=== PATIENT | male | born 1970 | race Caucasian/White ===

== ENCOUNTER 2017-09-08 17:17 | Inpatient (IN) | payer MEDICARE, MEDICAID, SELFPAY ==
[2017-09-08] VITALS (11 sets, daily range): BP systolic 145–202; BP diastolic 77–93; PULSE 78–83; RESP 9–16; TEMP 36.7–36.8; O2SAT 94–99; BMI 39.7; BMI 39.8; BMI 38.7
[2017-09-08 17:31] LABS: Bedside Glucose > 500 mg/dL (70-110)
--- NOTE | 2017-09-08 17:58 | EKG12_ITS ---
Test Reason : Blood Pressure : / mmHG Vent. Rate : 077 BPM Atrial Rate : 077 BPM P-R Int : 142 ms QRS Dur : 088 ms QT Int : 372 ms P-R-T Axes : 010 -25 049 degrees QTc Int : 420 ms Normal sinus rhythm Normal ECG Confirmed by CANDIE CONRAD MD ([id number]), international editorial producer DEREK KEARNS ([id number]) on 09/11/2017 2:59:12 PM Referred By: ANTHONY Confirmed By:CANDIE CONRAD MD
--- NOTE | 2017-09-08 18:08 | ED.VISSUMM ---
- ER Visit Summary Date of Service: 09/08/17 Chief Complaint: Chest pain and slurred speech History of Present Illness: The patient is a 47 M history of end-stage renal disease gets dialyzed Monday last dialysis Monday skip yesterday. He also has a history of insulin pen diabetes and CHF. Denies any prior SD or cardiac stents. He has never had a cardiac catheterization. According to the patient is at bedside he has been unsteady on his feet for the last 2 days. He has had slurred speech today and throbbing chest discomfort that is now resolved for several hours. Also some mild nausea and shortness of breath. He denies any cardiac history. He denies ever having a heart cath or stress test. No history of DVT or PE. Physical Examination: Appearing middle-aged male. Vital signs are stable his initial blood pressure is 170/77. Pulse is 95% room air no signs of hypoxia. HEENT exam is unremarkable. Neck nontender no JVD. Lungs good auscultation bilaterally. Heart regular rate and rhythm no murmur. Rate about 75. Abdomen soft nontender Logan no giving or masses. He is moving all 4 extremities. He has a right upper arm fistula with good thrill. Mild swelling in the right forearm. Equal symmetrical labor training manager strength. Dorsi plantar flexion intact. Neurologically is awake and alert. At worst he has very mild slurred speech otherwise is moving his extremities he is able do rapid hand movements he is able do fingertip to nose. He has no facial droop. At worst his NIH score is a 1 or 0. Test Results: Chest x-ray showed cardiomegaly. CT of the brain without contrast showed no acute abnormality read both by myself and the radiologist. EKG sinus rhythm rate is 77 with no acute signs of ischemia and unchanged from prior EKG from April of last year. White count of 5. Hemoglobin 10.8. Electrolytes show sodium 128. BUN and creatinine are 32 and 3.6 consistent with his chronic renal failure. Glucose is 630 with a normal anion gap is 7. Troponin normal. Emergency Department Course and Treatment: Patient with chest pain and possibly slurred speech. Will undergo cardiac workup with a CT of his brain. Treatment Plan: We treated with subcu insulin 15 units[address] I spoke to Dr[address] Hernandez the hospitalist will admit him. Disposition: Admission Impression: Acute chest pain uncertain etiology Acute slurred speech Acute hyperglycemia with a history of insulin-dependent diabetes History of insulin-dependent diabetes, hypertension, end-stage renal disease on dialysis. This note was generated with [employer] dictation software. It may contain incorrect words, spelling, and punctuation that were not noted in review of the chart prior to signing ED Disposition - Plan for ED Patient: Chief Complaint: Chest Pain Referrals: Augie Washburn MD [Primary Care Provider] -
--- NOTE | 2017-09-08 18:10 | RAD_ITS ---
STUDY: X-RAY CHEST REASON FOR EXAM: Male, 47 years old. Chest pain. TECHNIQUE: Single AP portable view of the chest. COMPARISON: Frontal chest x-ray included with abdomen series April 28, 2017. FINDINGS: There is minor subsegmental crowding in the medial lung bases. There is no demonstrated pleural abnormality. There is stable borderline to mild cardiac enlargement. Normal mediastinum and esmer. Normal visualized pulmonary arteries. Normal visualized aortic arch and descending thoracic aorta. There are stable multilevel degenerative changes of the visualized thoracic spine. Normal visualized ribs, clavicles, and shoulders. There is no demonstrated abnormality of the visualized soft tissue structures of the upper abdomen. RAD/Chest 1 View (Portable) IMPRESSION: Mild medial basilar subsegmental volume loss. Stable borderline to mild cardiac enlargement. Electronically Signed: Kayden Ceballos MD at 18:44 EST , Service support ,
--- NOTE | 2017-09-08 18:11 | ED.DCSUM_ITS ---
- ER Visit Summary Date of Service: 09/08/17 Chief Complaint: Chest pain and slurred speech History of Present Illness: The patient is a 47 M history of end-stage renal disease gets dialyzed Monday last dialysis Monday skip yesterday. He also has a history of insulin pen diabetes and CHF. Denies any prior HI or cardiac stents. He has never had a cardiac catheterization. According to the patient is at bedside he has been unsteady on his feet for the last 2 days. He has had slurred speech today and throbbing chest discomfort that is now resolved for several hours. Also some mild nausea and shortness of breath. He denies any cardiac history. He denies ever having a heart cath or stress test. No history of DVT or PE. Physical Examination: Appearing middle-aged male. Vital signs are stable his initial blood pressure is 170/77. Pulse is 95% room air no signs of hypoxia. HEENT exam is unremarkable. Neck nontender no JVD. Lungs good auscultation bilaterally. Heart regular rate and rhythm no murmur. Rate about 75. Abdomen soft nontender Logan no giving or masses. He is moving all 4 extremities. He has a right upper arm fistula with good thrill. Mild swelling in the right forearm. Equal symmetrical job compositor strength. Dorsi plantar flexion intact. Neurologically is awake and alert. At worst he has very mild slurred speech otherwise is moving his extremities he is able do rapid hand movements he is able do fingertip to nose. He has no facial droop. At worst his NIH score is a 1 or 0. Test Results: Chest x-ray showed cardiomegaly. CT of the brain without contrast showed no acute abnormality read both by myself and the radiologist. EKG sinus rhythm rate is 77 with no acute signs of ischemia and unchanged from prior EKG from April of last year. White count of 5. Hemoglobin 10.8. Electrolytes show sodium 128. BUN and creatinine are 32 and 3.6 consistent with his chronic renal failure. Glucose is 630 with a normal anion gap is 7. Troponin normal. Emergency Department Course and Treatment: Patient with chest pain and possibly slurred speech. Will undergo cardiac workup with a CT of his brain. Treatment Plan: We treated with subcu insulin 15 units[address] I spoke to [address] Hernandez the hospitalist will admit him. Disposition: Admission Impression: Acute chest pain uncertain etiology Acute slurred speech Acute hyperglycemia with a history of insulin-dependent diabetes History of insulin-dependent diabetes, hypertension, end-stage renal disease on dialysis. This note was generated with [employer] dictation software. It may contain incorrect words, spelling, and punctuation that were not noted in review of the chart prior to signing ED Disposition - Plan for ED Patient: Chief Complaint: Chest Pain Referrals: Augie Washburn MD [Primary Care Provider] -
--- NOTE | 2017-09-08 18:18 | CT_ITS ---
STUDY: CT BRAIN WITHOUT CONTRAST REASON FOR EXAM: Male, 47 years old. Slurred speech and chest pain. RADIATION DOSAGE (If Supplied By Facility): CTDIvol = ( 44.99 ) mGy, DLP = ( 779.24 ) mGycm TECHNIQUE: Transaxial CT imaging of the brain was performed without administration of intravenous contrast material. Individualized dose optimization techniques were used for this CT. COMPARISON: Noncontrast CT brain March 20, 2017 FINDINGS: Normal soft tissue structures. Normal calvarium. Normal size ventricles and extra-axial spaces for the patient's age. Normal white matter tracts of the cerebral hemispheres. Normal basal ganglia and thalami. Normal brainstem. Normal cerebellum. There is no intracranial hemorrhage. There are no findings of an acute ischemic infarction. There is mild mucoperiosteal thickening in the left maxillary sinus. CT/Brain/Head without Contrast IMPRESSION: 1. Normal unenhanced CT scan of the brain. 2. Mild chronic left maxillary sinusitis. Electronically Signed: Kayden Ceballos MD at 18:41 EST , Service support ,
[2017-09-08 18:20] LABS: Absolute Lymphocyte Count 0.92 X10^3/ul (0.83-4.51); Absolute Neutrophil Count 4.4 X10^3/uL (2.0-7.7); Basophil# 0.03 X10^3/uL; Basophil% 0.5 % (0-1); Eosinophil# 0.18 X10^3/uL; Eosinophils% 3.1 % (0-5); Hematocrit 31.7 % (40-54); Hemoglobin 10.8 g/dl (13.0-16.5); Lymphocyte # 0.92 X10^3/ul (4.0); Lymphocyte % 15.7 % (19-41); Mean Corp Hgb Conc 34.1 g/gl (32-36); Mean Corpuscular Hgb 28.6 pg (27.0-32.0); Mean Corpuscular Volume 84.1 fL (80-94); Mean Platelet Vol. 9.8 fl (6.2-12.0); Monocyte# 0.31 X10^3/uL; Monocyte% 5.3 % (0-10); Neutrophil # 4.35 X10^3/uL (2.7-7.7); Neutrophil % 74.2 % (47-70); Platelet Count 224 K/mm3 (150-450); RBC Distribution Width CV 13.3 % (11.6-14.6); RBC Distribution Width SD 40.3 fl (35.1-43.9); Red Blood Count 3.77 M/mm3 (4.6-6.2); White Blood Count 5.9 K/mm3 (4.4-11.0)
[2017-09-08 18:29] LABS: Anion Gap 7 (5-15); BUN 32 mg/dL (7-18); BUN/Creat Ratio 8.8 RATIO (10-20); Calcium,Total 8.2 mg/dL (8.5-10.1); Chloride 91 mmol/L (98-107); Creatinine, Serum 3.64 mg/dL (0.70-1.30); EST Glomerular Filtration Rate 19 mL/min (>60); Est Glom Filt Rate - Afr Amer 23 mL/min (>60); Estimated Creatinine Clearance 22.95 ml/min; Glucose 630 mg/dL (74-106); Potassium 3.9 mmol/L (3.5-5.1); Sodium Level 128 mmol/L (136-145)
--- NOTE | 2017-09-08 18:33 | ED.RN ---
Addendum entered by Kayden Cheek 09/08/17 18:34: no new orders received Original Note: Dr. Vail notified of critical blood glucose of 630
[2017-09-08 18:42] LABS: POSITIVE COUNT NO; POSITIVE DIFFERENTIAL NO; POSITIVE MORPHOLOGY NO
[2017-09-08 20:01] LABS: Bedside Glucose > 500 mg/dL (70-110)
--- NOTE | 2017-09-08 21:39 | PCM.HP.STD ---
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) use of insulin; Z99.2 - Dependence on renal dialysis (2) Diabetic neuropathy Status: Chronic (3) Hyperlipidemia Status: Chronic Qualifiers: Hyperlipidemia type: unspecified Qualified Code(s): E78.5 - Hyperlipidemia, unspecified; E78.5 - Hyperlipidemia, unspecified; E78.5 - Hyperlipidemia, unspecified (4) Morbid obesity with BMI of 40.0-44.9, adult Status: Chronic (5) Noncompliance Status: Chronic (6) SELMA (obstructive sleep apnea) Status: Chronic (7) Renal failure Status: Chronic Qualifiers: Chronic kidney disease stage: on chronic dialysis History of Present Illness Date of Admission: 09/08/17 Chief Complaint: Slurred speech and chest pain The patient is a 47 year old male w/ h/o HTN, ESRD, HD TTS, SELMA, DMII, and anemia admitted for slurred speech and chest pain. Pt is highly noncompliant with meds and dialysis. Pt complained of multiple non-related symptoms. He stated that when he woke up, he noted that his speech is slurred or abnormal. Nothing appeared to make it better or worse. He was sleepy at that time. He spontaneously resolved when he is no longer sleep. He also c/o nonexertional chest pain. Pain is dull-aching on the left side of his chest. Pain is mild and mostly a discomfort. He also has been unsteady on his feet. He missed dialysis on . He also is not taking his insulin. Past Medical History Past Medical History (Chronic Problems): Chronic Problems (Last Reviewed 08/07/17 @ 10:11 by Claudette Cheek) Chronic respiratory failure with hypoxia (Chronic) HTN (hypertension) (Chronic) Chronic renal disease, stage IV (Chronic) Acute on chronic diastolic CHF (congestive heart failure) (Chronic) Hyperlipidemia (Chronic) Diabetic neuropathy (Chronic) Anemia (Chronic) SELMA (obstructive sleep apnea) (Chronic) Morbid obesity with BMI of 40.0-44.9, adult (Chronic) Diabetes mellitus, type II (Chronic) Renal failure (Chronic) Noncompliance (Chronic) Allergies venom-honey bee [bee venom (honey bee)] Allergy (Verified 09/08/17 17:23) Swelling sulfamethoxazole [From Bactrim] Adverse Reaction (Verified 09/08/17 17:23) Upset Stomach trimethoprim [From Bactrim] Adverse Reaction (Verified 09/08/17 17:23) Upset Stomach Home Medications: Ambulatory Orders Medication Instructions Recorded Amlodipine [Norvasc] 10 mg PO DAILY 07/27/17 Metoprolol Tartrate 50 mg PO BID 07/27/17 Omeprazole 40 mg PO DAILY 07/27/17 insulin regular human 17 units SC DAILY ml 08/07/17 U-500concentrate 500 unit/mL subcutaneous soln Aspirin [Aspirin, Baby] 81 mg PO DAILY@0800 09/08/17 Atorvastatin Calcium [Lipitor] 20 mg PO QHS 09/08/17 Calcitriol [Rocaltrol] 1 mcg PO DAILY 09/08/17 Fluticasone Propionate 1 spray NASAL DAILY PRN 09/08/17 Furosemide [Furosemide] 40 mg PO BID 09/08/17 Gabapentin [Neurontin] 100 mg PO TIDCM 09/08/17 HydrALAZINE [Apresoline] 10 mg PO TID 09/08/17 Insulin U-500 [Humulin R U-500 22 units PO DINNER 09/08/17 ([facility])] Isosorbide Mononitrate [Isosorbide 30 mg PO DAILY 09/08/17 Mononitrate ER] Lisinopril [Zestril] 10 mg PO DAILY 09/08/17 Pyridoxine HCl [Vitamin B-6] 100 mg PO DAILY 09/08/17 Triphrocaps 1 cap PO DAILY 09/08/17 Vits A,C,E/Lutein/Minerals 1 tab PO DAILY 09/08/17 [Ocuvite with Lutein Tablet] Surgical History: tonsillectomy, - - AV fistula in right arm. Smoking Status: Never smoker - *Family History Maternal History Items: Diabetes, Heart Disease, Hypertension, Renal Disease Paternal History Items: Cancer - liver, Diabetes, Heart Disease Review of Systems Constitutional: Denies: Chills, Fever, Weight Change HEENT: Denies: Head Aches, Sinus Congestion, Sinus Drainage Cardiovascular: Denies: Chest Pain, Palpitations Respiratory: Denies: Cough, Shortness of breath at rest, Sputum production Gastrointestinal: Denies: Abdominal Pain, Nausea, Vomiting Genitourinary: Denies: Dysuria Musculoskeletal: Denies: Joint Pain, Joint Tenderness Skin: Denies: Rash, Wounds Neurological: Denies: Numbness, Tingling, Focal weakness Psychiatric: Denies: Anxiety, Depression, Homicidal Ideations, Suicidal Ideations Hematologic/ Lymphatic: Denies: Easy Bruising, Easy Bleeding VTE Information - Inpt Only VTE Present on Admission: No VTE Mechan Device Prophylaxis: SCD's VTE Pharm Prophylaxis ordered?: Yes - Physical Exam General: Alert, Oriented x3, Cooperative HEENT: Atraumatic, PERRLA, EOMI, Normocephalic Neck: Supple, No JVD, Negative Carotid Bruits Lungs: Clear to auscultation, Normal air movement Cardiovascular: Regular rate, No murmurs Abdomen: Bowel Sounds Present, Soft, Non Tender Extremities: No edema, Capillary Refill Less than 3 Seconds, - - Thrill and bruit noted on RUE Skin: No rashes, No breakdown Musculoskeletal: No Tenderness to Palpation of Joints or Extremities Neurological: Cranial nerves II-XII grossly intact Psych/Mental Status: Normal Affect, Appropriate Vital Signs Temp Pulse Resp BP Pulse Ox 98.0 F 81 13 176/88 H 95 09/08/17 17:19 09/08/17 21:30 09/08/17 21:30 09/08/17 21:30 09/08/17 21:30 Oxygen Delivery Method Room Air Weight: 115.212 kg Body Mass Index (BMI) 39.7 Finger Stick Blood Glucose 541 Laboratory Tests Past 24 Hrs 09/08/17 09/08/17 17:35 17:35 WBC 5.9 RBC 3.77 L Hgb 10.8 L Hct 31.7 L MCV 84.1 MCH 28.6 MCHC 34.1 RDW 13.3 RDW Differential 40.3 Plt Count 224 MPV 9.8 Immature Gran % (Auto) 1.200 H Neut % (Auto) 74.2 H Lymph % (Auto) 15.7 L Alfalfa % (Auto) 5.3 Eos % (Auto) 3.1 Baso % (Auto) 0.5 Absolute Neuts (auto) 4.4 Absolute Lymphs (auto) 0.92 Total Counted Not Reportable Sodium 128 L Potassium 3.9 Chloride 91 L Carbon Dioxide 30.0 Anion Gap 7 BUN 32 H Creatinine 3.64 H Estim Creat Clear Calc 22.95 Est GFR (MDRD) Af Amer 23 L Est GFR (MDRD) Non-Af 19 L BUN/Creatinine Ratio 8.8 L Glucose 630 H* Calcium 8.2 L Troponin I < 0.02 POC Glucose 09/08/17 09/08/17 19:54 17:24 POC Glucose > 500 H* > 500 H* Assessment/Plan 47 year old male w/ h/o HTN, ESRD, HD TTS, SELMA, DMII, and anemia admitted for slurred speech and chest pain. 1) Slurred speech: I doubt this is stroke. Pt was probably sleepy and mistaken his speech. However, will r/o TIA. Will get MRI, ECHO, carotid U/S and lipids. Resume home meds. 2) Chest pain: Atypical chest pain. Will get serial trops. Probably will need outpt workup / f/u. Advise compliant with meds / dialysis. 3) DMII: Poorly controlled secondary to noncompliance. Advise compliant. Sliding scale. Will also resume home meds. 4) ESRD: TTS. Consulted nephrology for HD. RUE fistula noted. 5) Prophylaxis: SCD / heparin.
[2017-09-08] MEDS: Metoprolol Tartrate 50 MG Tablet PO (23:05)
[2017-09-08] MEDS: Furosemide 40 MG Tablet PO (23:06)
[2017-09-08] MEDS: Atorvastatin Calcium 20 MG Tablet PO (23:06)
[2017-09-08] MEDS: 0.9% NaCl Peripheral Flush Adult/Peds IV (23:10)
[2017-09-08 23:21] LABS: Glucose 492 mg/dL (74-106)
[2017-09-08 23:21] LABS: Bedside Glucose > 500 mg/dL (70-110)
[2017-09-08 23:24] LABS: Thyroid Stim Hormone (TSH) 1.68 uIU/mL (0.358-3.74)
[2017-09-09] VITALS (19 sets, daily range): BP systolic 95–162; BP diastolic 45–85; PULSE 68–85; RESP 16–18; TEMP 36.8–37.2; O2SAT 94–98; BMI 38.7
[2017-09-09 00:21] LABS: Amphetamine Urine VISTA NEGATIVE (<1000 ng/mL); Barbiturate Urine VISTA NEGATIVE (< 200 ng/mL); Benzodiazepine Urine VISTA NEGATIVE (< 200 ng/mL); Cocaine Urine VISTA NEGATIVE (< 300 ng/mL); Ecstacy Urine VISTA NEGATIVE (< 500 ng/mL); Methadone Urine VISTA NEGATIVE (< 300 ng/mL); PCP Urine VISTA NEGATIVE (< 25 ng/mL); THC Urine VISTA NEGATIVE (< 50 ng/mL); Vista UDS pH Range 6
[2017-09-09 02:50] LABS: Bedside Glucose 216 mg/dL (70-110)
[2017-09-09 03:25] LABS: Cholesterol 298 mg/dL (200); High Density Lipoprotein 37 mg/dL; Triglycerides 916 mg/dL
[2017-09-09] MEDS: Acetaminophen 325 MG Tablet 650 MG PO ×2 (04:58→22:24)
--- NOTE | 2017-09-09 05:55 | ECHOCS_ITS ---
Reason For Study: TIA/CVA Procedure This was a 2D Doppler, Color Flow transthoracic echocardiogram. Exam performed portable in patient room. Left Ventricle Normal LV size. Left ventricular systolic function is normal. The estimated ejection fraction is 65 %. No evidence for diastolic dysfunction. No regional wall motion abnormalities noted. Right Ventricle Normal RV size. Normal systolic function. Atria Normal left atrium. Normal right atrium. Mitral Valve Normal mitral valve. Trivial eccentric mitral valve insufficiency. Tricuspid Valve Normal tricuspid valve. Mild (1+) tricuspid valve insufficiency. Pulmonary artery systolic pressure is 31 mmHg. Aortic Valve Normal aortic valve. Pulmonic Valve The pulmonic valve is not well visualized. Great Vessels Normal aortic root. Pericardium/Pleural No pericardial effusion. Medication Performed a rapid injection of agitated mix of 9 cc saline and 1cc air to assess for atrial septal defect. Definity0.3ml given slow IV push to enhance endocardial definition. MMode/2D Measurements & Calculations LVIDd: 5.0 cm IVSd: 1.2 cm Ao root diam: 3.2 cm LVIDs: 3.5 cm LVPWd: 1.1 cm LA dimension: 5.2 cm RVDd: 4.8 cm FS: 30.0 % LAV(MOD-bp): 37.0 ml LAV(MOD-bp) Indexed: 16.8 ml/m2 LA A4 area: 15.9 cm2 RA A4 area: 14.5 cm2 LAV(MOD-sp2): 35.9 ml LAV(MOD-sp4): 36.0 ml Doppler Measurements & Calculations MV E max emre: 84.3 cm/sec Lat Peak E' Emre: 6.7 cm/sec Med Peak E' Emre: 6.8 cm/sec MV A max emre: 105.3 cm/sec E/E' lat: 12.6 E/E' med: 12.4 MV E/A: 0.80 Ao V2 max: 172.0 cm/sec LV V1 max: 126.5 cm/sec PA V2 max: 117.3 cm/sec Ao max P.8 mmHg LV V1 max P.4 mmHg Ao V2 mean: 110.2 cm/sec Ao mean P.7 mmHg Ao V2 VTI: 30.1 cm TR max emre: 254.7 cm/sec TR max P.0 mmHg Interpretation Summary Normal LV size. Left ventricular systolic function is normal. The estimated ejection fraction is 65 %. No evidence for diastolic dysfunction. Mild (1+) tricuspid valve insufficiency. Contrast injection was performed. Ordering Physician: Pablo Hernandez Referring Physician: Augie Washburn Performed By: Sameera Stevens RDCS, RVT
--- NOTE | 2017-09-09 05:55 | CDU_ITS ---
Reason For Study: TIA Rt. Velocities/BP Lt. Velocities/BP Prox CCA 103/35 cm/sec. Prox CCA 103/13 cm/sec. Mid CCA 94/13 cm/sec. Mid CCA 111/15 cm/sec. Dist CCA 88/14 cm/sec. Dist CCA 93/14 cm/sec. Prox ICA 80/14 cm/sec. Prox ICA 63/15 cm/sec. Mid ICA 63/17 cm/sec. Mid ICA 131/20 cm/sec. Dist ICA 68/27 cm/sec. Dist ICA 52/14 cm/sec. Rt. ICA/CCA = .85. Lt. ICA/CCA = 1.2. Prox ECA 162/13 cm/sec. Prox ECA 188/15 cm/sec. Rt. Vert. 38/8 cm/sec. Lt. Vert. 55/14 cm/sec. Right Extracranial There is intimal thickening but no significant atherosclerotic plaque noted in the right common carotid artery. There is intimal thickening but no significant atherosclerotic plaque noted in the right internal carotid artery. There is intimal thickening but no significant atherosclerotic plaque noted in the right external carotid artery. Antegrade flow is noted in the right vertebral artery. Left Extracranial There is intimal thickening but no significant atherosclerotic plaque noted in the left common carotid artery. There is intimal thickening but no significant atherosclerotic plaque noted in the left internal carotid artery. There is heterogeneous, smooth atherosclerotic plaque noted in the left external carotid artery. Antegrade flow is noted in the left vertebral artery. Procedure Carotid Duplex [id number]. Exam performed portable in patient room. Interpretation Summary No significant atherosclerotic plaque or stenosis noted in the internal carotid arteries bilaterally. Flow within the vertebral arteries is antegrade bilaterally. Ordering Physician: Pablo Hernandez Referring Physician: Anca Gregorio Performed By: Cami Strickland, GABRIELACS, RVT
[2017-09-09 06:51] LABS: Bedside Glucose 163 mg/dL (70-110)
[2017-09-09] MEDS: Aspirin 81 MG TAB.CHEW PO (08:43)
[2017-09-09] MEDS: Glucerna Shake 120 ML LIQUID PO ×2 (08:43→17:24)
[2017-09-09] MEDS: Pyridoxine HCl 100 MG Tablet PO (08:44)
[2017-09-09] MEDS: Calcitriol 0.25 MCG Capsule 1 MCG PO (08:44)
[2017-09-09] MEDS: Pantoprazole Sodium 40 MG Tablet PO (08:44)
[2017-09-09] MEDS: Gabapentin 100 MG Capsule PO ×2 (08:44→16:06)
[2017-09-09] MEDS: Folic Acid/Vitamin B Comp W-C 1 Capsule 1 CAP PO (08:45)
[2017-09-09] MEDS: Heparin 10,000 UNITS/10 ML Vial 6000 UNITS IV (11:24)
[2017-09-09 11:31] LABS: Bedside Glucose 340 mg/dL (70-110)
--- NOTE | 2017-09-09 12:13 | PCM.PN.HOSP ---
Patient Problems: Active and Suspected Problems (Last Reviewed 08/07/17 @ 10:11 by Claudette Cheek) TIA (transient ischemic attack) (Acute) Chest pain (Acute) Subjective: Patient states that he had a 30 minute episode of slurred speech and left sided weakness and chest pain. He took 2 aspirin in the midst of all this and symptoms resolved spontaneously otherwise. MRI was attempted today patient was very anxious when they put the device on his head and was unable to tolerate that. Patient states that he would be willing to try it again if he got premedicated with Ativan. Patient understands that we do not have conscious sedation here at this time for MRIs. Vitals/I&O's: Vital Signs Temp Pulse Resp BP Pulse Ox 36.9 C 81 16 162/80 H 96 09/09/17 09:00 09/09/17 11:35 09/09/17 10:31 09/09/17 10:31 09/09/17 09:00 Oxygen Delivery Method Room Air Weight: 112.1 kg Body Mass Index (BMI) 38.7 Intake and Output for Last 24 Hours 09/07/17 09/08/17 09/09/17 23:59 23:59 23:59 Intake Total 860 / 860 Balance 860 / 860 General: Alert, Cooperative, No apparent distress, - - on HD HEENT: Atraumatic, EOMI, Normocephalic Oral: Moist Mucosa, No Gingival or Mucosal Lesions/ Ulcerations Neck: No Nodes, Thyroid Normal Size and Texture Lungs: Clear to auscultation, Normal air movement, No rhonchi, No wheeze Cardiovascular: Regular rate, Regular Rhythm, Normal S1, Normal S2, No murmurs Abdomen: Bowel Sounds Present, Soft, Non Tender, Non-Distended, No Hepato-splenomegaly, Obese Extremities: No edema, No Calf Tenderness Skin: No rashes, No breakdown Musculoskeletal: No Tenderness to Palpation of Joints or Extremities, No Muscle Wasting Neurological: Cranial nerves II-XII grossly intact, Neuro grossly intact, Motor Exam 5/5 strength throughout Psych/Mental Status: Normal Affect, Appropriate Laboratory Results 09/08/17 22:33: POC Glucose > 500 H* 09/08/17 22:48: Troponin I 0.02, TSH 1.68 09/08/17 22:48: Glucose 492 H* 09/08/17 23:35: Urine Opiates Screen NEGATIVE, Urine Methadone Screen NEGATIVE, Ur Barbiturates Screen NEGATIVE, Ur Phencyclidine Scrn NEGATIVE, Ur Amphetamines Screen NEGATIVE, U Methamphetamin-MDMA NEGATIVE, U Benzodiazepines Scrn NEGATIVE, Urine Cocaine Screen NEGATIVE, U Cannabinoids Screen NEGATIVE, Ur Drug Screen Comment 09/09/17 02:35: Triglycerides 916 H, Cholesterol 298 H, LDL Cholesterol TNP, VLDL Cholesterol TNP, HDL Cholesterol 37 L 09/09/17 02:35: Troponin I < 0.02 09/09/17 02:39: POC Glucose 216 H 09/09/17 06:10: Troponin I < 0.02 09/09/17 06:45: POC Glucose 163 H 09/09/17 11:20: POC Glucose 340 H Current Medications Acetaminophen (Tylenol) 650 mg PO Q6H PRN PRN PRN Reason: PAIN Last Admin: 09/09/17 04:58 Dose: 650 mg Amlodipine Besylate (Norvasc) 10 mg PO DAILY [facility] Aspirin (Aspirin, Baby) 81 mg PO DAILY@0800 [facility] Last Admin: 09/09/17 08:43 Dose: 81 mg Atorvastatin Calcium (Lipitor) 20 mg PO QHS [facility] Last Admin: 09/08/17 23:06 Dose: 20 mg Calcitriol (Rocaltrol) 1 mcg PO DAILY [facility] Last Admin: 09/09/17 08:44 Dose: 1 mcg Dextrose (D50w Syringe) 0 gm IV X1 PRN; Protocol PRN Reason: Hypoglycemia Fluticasone Propionate (Flonase Nasal [place]) 1 spray NASAL DAILY PRN PRN Reason: ALLERGIES Furosemide (Lasix) 40 mg PO BIDLX [facility] Last Admin: 09/08/17 23:06 Dose: 40 mg Gabapentin (Neurontin) 100 mg PO TIDCM [facility] Last Admin: 09/09/17 11:25 Dose: Not Given Glucagon () 1 mg IM .X1 PRN PRN Reason: Hypoglycemia Heparin Sodium (Porcine) (Heparin Na) 5,000 unit SC Q8 [facility] Last Admin: 09/09/17 05:00 Dose: 5,000 units Hydralazine HCl (Apresoline) 10 mg PO TID [facility] Last Admin: 09/09/17 04:59 Dose: 10 mg Insulin Aspart (Novolog Flexpen (Bkc)) 0 units SC TIDAC [facility] PRN Reason: Protocol Last Admin: 09/09/17 11:24 Dose: 12 unit Insulin Human Regular (Humulin R U-500 ([facility])) 0.17 ml SC 0730 [facility] Last Admin: 09/09/17 09:17 Dose: 85 unit Insulin Human Regular (Humulin R U-500 ([facility])) 0.22 ml SC DINNER [facility] Isosorbide Mononitrate (Imdur) 30 mg PO DAILY [facility] Lisinopril (Zestril) 10 mg PO DAILY [facility] Metoprolol Tartrate (Lopressor (Beta Emmanuel)) 50 mg PO BID [facility] Last Admin: 09/08/17 23:05 Dose: 50 mg Multivit/Ca Carb/B Cmplx/FA/Prenat (Nephrocaps, Renaphro) 1 capsule PO DAILY [facility] Last Admin: 09/09/17 08:45 Dose: 1 capsule Multivitamins/Minerals (Ocuvite) 1 tablet PO DAILY [facility] Last Admin: 09/09/17 08:44 Dose: 1 tablet Nutritional Formula (Lactose Free) (Glucerna Shake) 120 ml PO 4X/DAY [facility] Last Admin: 09/09/17 08:43 Dose: 120 ml Pantoprazole Sodium (Protonix) 40 mg PO DAILY [facility] Last Admin: 09/09/17 08:44 Dose: 40 mg Pyridoxine HCl (Vitamin B-6) 100 mg PO DAILY [facility] Last Admin: 09/09/17 08:44 Dose: 100 mg Sodium Chloride () 5 - 30 ml IV UD PRN PRN Reason: SALINE FLUSH Last Admin: 09/08/17 23:10 Dose: 10 ml Assessment/Plan Active and Suspected Problems (Last Reviewed 08/07/17 @ 10:11 by Claudette Cheek) TIA (transient ischemic attack) (Acute) Chest pain (Acute) 1. TIA, suspected Continue with aspirin and atorvastatin Patient amenable to reattempting the MRI with Ativan prior Await carotid duplex and echocardiogram Possible this could have been metabolic with his severe hyperglycemia 2. Chest pain Workup thus far has been negative Will plan for a chemical stress test on the 3. Diabetes mellitus type 2, uncontrolled Patient states that he was not feeling well and when he is taking his U500, he was getting cramps in his hands. Patient said that he normally takes his insulin as directed. 4. Hypertension From the 150s-160s at this time Continue with Imdur and lisinopril and metoprolol tartrate 5. DVT prophylaxis with subcu heparin Code Visit Inpatient E&M: 76357 Subs Hosp L3
--- NOTE | 2017-09-09 12:18 | PN_ITS ---
Patient Problems: Active and Suspected Problems (Last Reviewed 08/07/17 @ 10:11 by Claudette Cheek ) TIA (transient ischemic attack) (Acute) Chest pain (Acute) Subjective: Patient states that he had a 30 minute episode of slurred speech and left sided weakness and chest pain. He took 2 aspirin in the midst of all this and symptoms resolved spontaneously otherwise. MRI was attempted today patient was very anxious when they put the device on his head and was unable to tolerate that. Patient states that he would be willing to try it again if he got premedicated with Ativan. Patient understands that we do not have conscious sedation here at this time for MRIs. Vitals/I&O's: Vital Signs Temp Pulse Resp BP Pulse Ox 36.9 C 81 16 162/80 H 96 09/09/17 09:00 09/09/17 11:35 09/09/17 10:31 09/09/17 10:31 09/09/17 09:00 Oxygen Delivery Method Room Air Weight: 112.1 kg Body Mass Index (BMI) 38.7 Intake and Output for Last 24 Hours 09/07/17 09/08/17 09/09/17 23:59 23:59 23:59 Intake Total 860 / 860 Balance 860 / 860 General: Alert, Cooperative, No apparent distress, - - on HD HEENT: Atraumatic, EOMI, Normocephalic Oral: Moist Mucosa, No Gingival or Mucosal Lesions/ Ulcerations Neck: No Nodes, Thyroid Normal Size and Texture Lungs: Clear to auscultation, Normal air movement, No rhonchi, No wheeze Cardiovascular: Regular rate, Regular Rhythm, Normal S1, Normal S2, No murmurs Abdomen: Bowel Sounds Present, Soft, Non Tender, Non-Distended, No Hepato- splenomegaly, Obese Extremities: No edema, No Calf Tenderness Skin: No rashes, No breakdown Musculoskeletal: No Tenderness to Palpation of Joints or Extremities, No Muscle Wasting Neurological: Cranial nerves II-XII grossly intact, Neuro grossly intact, Motor Exam 5/5 strength throughout Psych/Mental Status: Normal Affect, Appropriate Laboratory Results 09/08/17 22:33: POC Glucose > 500 H* 09/08/17 22:48: Troponin I 0.02, TSH 1.68 09/08/17 22:48: Glucose 492 H* 09/08/17 23:35: Urine Opiates Screen NEGATIVE, Urine Methadone Screen NEGATIVE, Ur Barbiturates Screen NEGATIVE, Ur Phencyclidine Scrn NEGATIVE, Ur Amphetamines Screen NEGATIVE, U Methamphetamin-MDMA NEGATIVE, U Benzodiazepines Scrn NEGATIVE, Urine Cocaine Screen NEGATIVE, U Cannabinoids Screen NEGATIVE, Ur Drug Screen Comment 09/09/17 02:35: Triglycerides 916 H, Cholesterol 298 H, LDL Cholesterol TNP, VLDL Cholesterol TNP, HDL Cholesterol 37 L 09/09/17 02:35: Troponin I < 0.02 09/09/17 02:39: POC Glucose 216 H 09/09/17 06:10: Troponin I < 0.02 09/09/17 06:45: POC Glucose 163 H 09/09/17 11:20: POC Glucose 340 H Current Medications Acetaminophen (Tylenol) 650 mg PO Q6H PRN PRN PRN Reason: PAIN Last Admin: 09/09/17 04:58 Dose: 650 mg Amlodipine Besylate (Norvasc) 10 mg PO DAILY [facility] Aspirin (Aspirin, Baby) 81 mg PO DAILY@0800 [facility] Last Admin: 09/09/17 08:43 Dose: 81 mg Atorvastatin Calcium (Lipitor) 20 mg PO QHS [facility] Last Admin: 09/08/17 23:06 Dose: 20 mg Calcitriol (Rocaltrol) 1 mcg PO DAILY [facility] Last Admin: 09/09/17 08:44 Dose: 1 mcg Dextrose (D50w Syringe) 0 gm IV X1 PRN; Protocol PRN Reason: Hypoglycemia Fluticasone Propionate (Flonase Nasal [place]) 1 spray NASAL DAILY PRN PRN Reason: ALLERGIES Furosemide (Lasix) 40 mg PO BIDLX [facility] Last Admin: 09/08/17 23:06 Dose: 40 mg Gabapentin (Neurontin) 100 mg PO TIDCM [facility] Last Admin: 09/09/17 11:25 Dose: Not Given Glucagon () 1 mg IM .X1 PRN PRN Reason: Hypoglycemia Heparin Sodium (Porcine) (Heparin Na) 5,000 unit SC Q8 [facility] Last Admin: 09/09/17 05:00 Dose: 5,000 units Hydralazine HCl (Apresoline) 10 mg PO TID [facility] Last Admin: 09/09/17 04:59 Dose: 10 mg Insulin Aspart (Novolog Flexpen (Bkc)) 0 units SC TIDAC [facility] PRN Reason: Protocol Last Admin: 09/09/17 11:24 Dose: 12 unit Insulin Human Regular (Humulin R U-500 ([facility])) 0.17 ml SC 0730 [facility] Last Admin: 09/09/17 09:17 Dose: 85 unit Insulin Human Regular (Humulin R U-500 ([facility])) 0.22 ml SC DINNER [facility] Isosorbide Mononitrate (Imdur) 30 mg PO DAILY [facility] Lisinopril (Zestril) 10 mg PO DAILY [facility] Metoprolol Tartrate (Lopressor (Beta Emmanuel)) 50 mg PO BID [facility] Last Admin: 09/08/17 23:05 Dose: 50 mg Multivit/Ca Carb/B Cmplx/FA/Prenat (Nephrocaps, Renaphro) 1 capsule PO DAILY [facility] Last Admin: 09/09/17 08:45 Dose: 1 capsule Multivitamins/Minerals (Ocuvite) 1 tablet PO DAILY [facility] Last Admin: 09/09/17 08:44 Dose: 1 tablet Nutritional Formula (Lactose Free) (Glucerna Shake) 120 ml PO 4X/DAY [facility] Last Admin: 09/09/17 08:43 Dose: 120 ml Pantoprazole Sodium (Protonix) 40 mg PO DAILY [facility] Last Admin: 09/09/17 08:44 Dose: 40 mg Pyridoxine HCl (Vitamin B-6) 100 mg PO DAILY [facility] Last Admin: 09/09/17 08:44 Dose: 100 mg Sodium Chloride () 5 - 30 ml IV UD PRN PRN Reason: SALINE FLUSH Last Admin: 09/08/17 23:10 Dose: 10 ml Assessment/Plan Active and Suspected Problems (Last Reviewed 08/07/17 @ 10:11 by Claudette Cheek ) TIA (transient ischemic attack) (Acute) Chest pain (Acute) 1. TIA, suspected * Continue with aspirin and atorvastatin * Patient amenable to reattempting the MRI with Ativan prior * Await carotid duplex and echocardiogram * Possible this could have been metabolic with his severe hyperglycemia 2. Chest pain * Workup thus far has been negative * Will plan for a chemical stress test on the 3. Diabetes mellitus type 2, uncontrolled * Patient states that he was not feeling well and when he is taking his U500, he was getting cramps in his hands. Patient said that he normally takes his insulin as directed. 4. Hypertension * From the 150s-160s at this time * Continue with Imdur and lisinopril and metoprolol tartrate 5. DVT prophylaxis with subcu heparin Code Visit Inpatient E&M: 69722 Subs Hosp L3
--- NOTE | 2017-09-09 12:19 | CM.UR ---
Addendum entered by Cristina Melendez 09/09/17 12:28: Also during face to face meeting with patient he mentioned that he wants to get rid of his pain and numbness in his legs. Instructed on how uncontrolled diabetes increased the neuropathy. States previously when he got dialysis it started to get better. Explained sometimes it does but sometimes the damage becomes too bad and it is not reversible. Becomes permanent. Francheska Melendez RN, CCM. Original Note: Met face to face with patient. Looked at records regarding advance directives. Noted that we have both living will and DPOA on file however neither are signed by patient and neither are witnessed OR notarized. Patient states his advance directives were witnessed at Dialysis. He isn't sure if it is the one we have on file that he took to dialysis or if it is another one. He also said his DPOA is [place]--not [place]. Requested he ask girlfriend to bring in copy of his advance directives and he is agreeable. Francheska Melendez RN, CCM.
[2017-09-09 13:50] LABS: Hemoglobin A1c > 16.0 % (4.2-6.3)
--- NOTE | 2017-09-09 15:37 | DIALYSIS ---
Hemodialysis x 4 hours completed. -500ml off. tolerated well. stable t/o. no complaints during/post tx. Report at bedside to Carmel MACARIO plus written report.
[2017-09-09 15:46] LABS: Bedside Glucose 159 mg/dL (70-110)
--- NOTE | 2017-09-09 16:00 | NURSING ---
WENT OVER A1C WITH PATIENT, AND HOW IMPORTANT IT IS TO TAKE HIS INSULIN, STATES DOESN'T TAKE HIS INSULIN BECAUSE IT GIVES HIM CRAMPS. AFTER THE CONVERSATION WITH GIRLFRIEND AND PATIENT, PATIENT STARTED TO DRINK POP FROM SUBWAY. VERY NON-COMPLIANT.
[2017-09-09] MEDS: Furosemide 40 MG Tablet PO (16:05)
[2017-09-09] MEDS: Isosorbide Mononitrate 30 MG Tablet PO (16:05)
[2017-09-09] MEDS: Lisinopril 10 MG Tablet PO (16:05)
[2017-09-09] MEDS: Metoprolol Tartrate 50 MG Tablet PO ×2 (16:05→22:18)
[2017-09-09] MEDS: amLODIPine 10 MG Tablet PO (16:05)
[2017-09-09] MEDS: LORazepam 1 MG Tablet PO (18:49)
[2017-09-09] MEDS: Atorvastatin Calcium 20 MG Tablet PO (22:18)
[2017-09-09 22:30] LABS: Bedside Glucose 228 mg/dL (70-110)
[2017-09-10] VITALS (17 sets, daily range): BP systolic 128–150; BP diastolic 56–73; PULSE 68–84; RESP 14–16; TEMP 36.6–37.2; O2SAT 94–97; BMI 38.7
[2017-09-10 06:09] LABS: Hematocrit 30.7 % (40-54); Hemoglobin 10.5 g/dl (13.0-16.5); Mean Corp Hgb Conc 34.2 g/gl (32-36); Mean Corpuscular Hgb 29.6 pg (27.0-32.0); Mean Corpuscular Volume 86.5 fL (80-94); Mean Platelet Vol. 9.8 fl (6.2-12.0); Platelet Count 278 K/mm3 (150-450); RBC Distribution Width CV 13.3 % (11.6-14.6); RBC Distribution Width SD 40.9 fl (35.1-43.9); Red Blood Count 3.55 M/mm3 (4.6-6.2); White Blood Count 5.8 K/mm3 (4.4-11.0)
[2017-09-10 06:11] LABS: Differential Indicated MANUAL DIFF; POSITIVE COUNT YES; POSITIVE DIFFERENTIAL NO; POSITIVE MORPHOLOGY YES
[2017-09-10 06:16] LABS: Anion Gap 7 (5-15); BUN 25 mg/dL (7-18); BUN/Creat Ratio 9.3 RATIO (10-20); Calcium,Total 7.9 mg/dL (8.5-10.1); Chloride 100 mmol/L (98-107); Creatinine, Serum 2.69 mg/dL (0.70-1.30); EST Glomerular Filtration Rate 27 mL/min (>60); Est Glom Filt Rate - Afr Amer 33 mL/min (>60); Estimated Creatinine Clearance 31.06 ml/min; Glucose 180 mg/dL (74-106); Potassium 3.5 mmol/L (3.5-5.1); Sodium Level 136 mmol/L (136-145)
[2017-09-10 06:19] LABS: Basophil 1 % (0-1); Eosinophil 3 % (0-5); Lymphocyte 37 % (19-41); Metamyelocyte 1 % (0-1); Monocyte 1 % (0-10); Neutrophil-Band 1 % (0-5); Neutrophil-Segmented 56 % (47-70); Platelet Estimate ADEQUATE (ADEQ); Red Cell Morphology NORM C+C NORMAL (NORM C&C); Total Cells Counted 100 (MANUAL DIFF)
[2017-09-10 06:20] LABS: Absolute Lymphocyte Count 2.14 X10^3/ul (0.83-4.51); Absolute Neutrophil Count 3.3 X10^3/uL (2.0-7.7); Lymphocyte # 2.14 X10^3/ul (4.0); Neutrophil # 3.31 X10^3/uL (2.7-7.7)
[2017-09-10 06:46] LABS: Bedside Glucose 155 mg/dL (70-110)
[2017-09-10] MEDS: Lisinopril 10 MG Tablet PO (09:41)
[2017-09-10] MEDS: amLODIPine 10 MG Tablet PO (09:41)
[2017-09-10] MEDS: Furosemide 40 MG Tablet PO ×2 (09:41→16:51)
[2017-09-10] MEDS: Isosorbide Mononitrate 30 MG Tablet PO (09:41)
[2017-09-10] MEDS: Metoprolol Tartrate 50 MG Tablet PO ×2 (09:42→21:18)
[2017-09-10] MEDS: Gabapentin 100 MG Capsule PO ×3 (09:42→16:51)
[2017-09-10] MEDS: Pyridoxine HCl 100 MG Tablet PO (09:42)
[2017-09-10] MEDS: Folic Acid/Vitamin B Comp W-C 1 Capsule 1 CAP PO (09:42)
[2017-09-10] MEDS: Calcitriol 0.25 MCG Capsule 1 MCG PO (09:42)
[2017-09-10] MEDS: Aspirin 81 MG TAB.CHEW PO (09:42)
[2017-09-10] MEDS: Pantoprazole Sodium 40 MG Tablet PO (09:43)
--- NOTE | 2017-09-10 11:39 | CT_ITS ---
STUDY: CT BRAIN WITHOUT CONTRAST REASON FOR EXAM: Male, 47 years old. Slurred speech follow-up exam RADIATION DOSAGE (If Supplied By Facility): CTDIvol = ( 44.99 ) mGy, DLP = ( 779.24 ) mGycm TECHNIQUE: Transaxial CT imaging of the brain was performed without administration of intravenous contrast material. Individualized dose optimization techniques were used for this CT. COMPARISON: September 08, 2017 CT examination of the head FINDINGS: No evidence for shift of midline structures, mass effect or compression of ventricles noted. No acute intra or extra-axial hemorrhage is seen. No abnormal intracranial fluid collections identified. The basal cisterns are patent. Posterior fossa structures demonstrate no discrete mass. Vascular calcifications are seen. Mild cerebral volume loss The calvarium is intact. Chronic maxillary sinusitis. Mild mucosal thickening of the ethmoid air cells Deformity of the left medial orbital wall likely chronic IMPRESSION: No evidence for acute intracranial hemorrhage, mass effect or acute large territory infarcts. Electronically Signed: Fuad Frazier, at 13:19 EDT Tel , Service support , CT/Brain/Head without Contrast
[2017-09-10 12:01] LABS: Bedside Glucose 363 mg/dL (70-110)
--- NOTE | 2017-09-10 12:30 | PCM.PROGNOTE ---
<Zachariah Meza - Last Filed: 09/10/17 12:30> Patient Problems: Active and Suspected Problems (Last Reviewed 08/07/17 @ 10:11 by Claudette Cheek) Chest pain (Acute) TIA (transient ischemic attack) (Acute) Subjective: Pt has no further complaints of dizziness or LH. No palpitations or LH. Nursing reports dietary noncompliance. He had a large soda brought in. Pt has generalized weakness. No further left sided complaints. No blurry vision. Pt unable to tolerate MRI with ativan. - Physical Exam General: Alert, Oriented x3, Cooperative HEENT: Atraumatic, PERRLA, EOMI, Normocephalic Neck: Supple, No JVD, Negative Carotid Bruits Lungs: Clear to auscultation, Normal air movement Cardiovascular: Regular rate, No murmurs Abdomen: Bowel Sounds Present, Soft, Non Tender, Obese Extremities: No edema, Capillary Refill Less than 3 Seconds Skin: No rashes, No breakdown Musculoskeletal: No Tenderness to Palpation of Joints or Extremities Neurological: Cranial nerves II-XII grossly intact Psych/Mental Status: Normal Affect, Appropriate, Alert and oriented to time, place, person, mood and affect Vital Signs Temp Pulse Resp BP Pulse Ox 99 F 77 16 143/62 H 96 09/10/17 12:00 09/10/17 12:07 09/10/17 12:00 09/10/17 12:00 09/10/17 12:00 Oxygen Delivery Method Room Air Weight: 112.1 kg Body Mass Index (BMI) 38.7 Intake and Output for Last 24 Hours 09/08/17 09/09/17 09/11/17 23:59 23:59 00:59 Intake Total 1820 / 1820 360 / 360 Output Total 500 / 500 Balance 1320 / 1320 360 / 360 Laboratory Tests Past 24 Hrs 09/09/17 09/09/17 09/10/17 06:10 12:10 04:53 WBC 5.8 RBC 3.55 L Hgb 10.5 L Hct 30.7 L MCV 86.5 MCH 29.6 MCHC 34.2 RDW 13.3 RDW Differential 40.9 Plt Count 278 MPV 9.8 Neut % (Auto) Not Reportable Absolute Neuts (auto) 3.3 Absolute Lymphs (auto) 2.14 Total Counted 100 Neutrophils % (Manual) 56 Band Neutrophils % 1 Lymphocytes % (Manual) 37 Monocytes % (Manual) 1 Eosinophils % (Manual) 3 Basophils % (Manual) 1 Metamyelocytes % [address] Review May foll Platelet Estimate ADEQUATE RBC Morphology NORM C+C Sodium Potassium Chloride Carbon Dioxide Anion Gap BUN Creatinine Estim Creat Clear Calc Est GFR (MDRD) Af Amer Est GFR (MDRD) Non-Af BUN/Creatinine Ratio Glucose Hemoglobin A1c > 16.0 H Calcium Troponin I < 0.02 09/10/17 04:53 WBC RBC Hgb Hct MCV MCH MCHC RDW RDW Differential Plt Count MPV Neut % (Auto) Absolute Neuts (auto) Absolute Lymphs (auto) Total Counted Neutrophils % (Manual) Band Neutrophils % Lymphocytes % (Manual) Monocytes % (Manual) Eosinophils % (Manual) Basophils % (Manual) Metamyelocytes % Diff Path Review Platelet Estimate RBC Morphology Sodium 136 Potassium 3.5 Chloride 100 Carbon Dioxide 29.0 Anion Gap 7 BUN 25 H Creatinine 2.69 H Estim Creat Clear Calc 31.06 Est GFR (MDRD) Af Amer 33 L Est GFR (MDRD) Non-Af 27 L BUN/Creatinine Ratio 9.3 L Glucose 180 H Hemoglobin A1c Calcium 7.9 L Troponin I POC Glucose 09/10/17 09/10/17 09/09/17 11:52 06:39 22:17 POC Glucose 363 H 155 H 228 H 09/09/17 09/09/17 15:34 11:20 POC Glucose 159 H 340 H Assessment/Plan Active and Suspected Problems (Last Reviewed 08/07/17 @ 10:11 by Claudette Cheek) Chest pain (Acute) TIA (transient ischemic attack) (Acute) 1. Slurred speech/Left sided weakness - resolved. PTOTST. Repeat CT pt cant tolerate MRI. Echo shows 65%. Also of note on presentation his glucose was 600+ which has improved. Trop neg. CT brain negative at admission. Pt is on asa/statin. Lipid panel inaccurate 2/2 triglycerides. 2. Chest pain - stress test tomorrow. Trop neg. Pt on lily, BB, asa, statin, hydralazine, imdur, lasix. 3. T2DM - continue u500 + SSI. A1C >16. Pt needs strict dietary restriction and endocrine follow up. 4. ESRD - improved s/p dialysis yesterday. Dr. Gregorio consulted. 5. Morbid obesity - dietary consult. 6. Normocytic anemia - stable. 7. HTN - stable. DVT ppx: Heparin DC planning: PTOT This patient was seen by Zachariah Meza PA-C under the supervision of Doctor Rodrick. <Isma Mensah - Last Filed: 09/10/17 13:21> Subjective: No new events. - Physical Exam General: Alert, Cooperative HEENT: Atraumatic, Normocephalic Lungs: Clear to auscultation, Normal air movement Cardiovascular: Regular rate, Regular Rhythm, Normal S1, Normal S2, No murmurs Abdomen: Bowel Sounds Present, Soft, Non Tender, Non-Distended Extremities: No edema, No Calf Tenderness Vital Signs Temp Pulse Resp BP Pulse Ox 37.2 C 77 16 143/62 H 96 09/10/17 12:00 09/10/17 12:07 09/10/17 12:00 09/10/17 12:00 09/10/17 12:00 Oxygen Delivery Method Room Air Weight: 112.1 kg Body Mass Index (BMI) 38.7 Intake and Output for Last 24 Hours 09/08/17 09/09/17 09/11/17 23:59 23:59 00:59 Intake Total 1820 / 1820 360 / 360 Output Total 500 / 500 Balance 1320 / 1320 360 / 360 Laboratory Tests Past 24 Hrs 09/09/17 09/09/17 09/10/17 06:10 12:10 04:53 WBC 5.8 RBC 3.55 L Hgb 10.5 L Hct 30.7 L MCV 86.5 MCH 29.6 MCHC 34.2 RDW 13.3 RDW Differential 40.9 Plt Count 278 MPV 9.8 Neut % (Auto) Not Reportable Absolute Neuts (auto) 3.3 Absolute Lymphs (auto) 2.14 Total Counted 100 Neutrophils % (Manual) 56 Band Neutrophils % 1 Lymphocytes % (Manual) 37 Monocytes % (Manual) 1 Eosinophils % (Manual) 3 Basophils % (Manual) 1 Metamyelocytes % [address] Review May foll Platelet Estimate ADEQUATE RBC Morphology NORM C+C Sodium Potassium Chloride Carbon Dioxide Anion Gap BUN Creatinine Estim Creat Clear Calc Est GFR (MDRD) Af Amer Est GFR (MDRD) Non-Af BUN/Creatinine Ratio Glucose Hemoglobin A1c > 16.0 H Calcium Troponin I < 0.02 09/10/17 04:53 WBC RBC Hgb Hct MCV MCH MCHC RDW RDW Differential Plt Count MPV Neut % (Auto) Absolute Neuts (auto) Absolute Lymphs (auto) Total Counted Neutrophils % (Manual) Band Neutrophils % Lymphocytes % (Manual) Monocytes % (Manual) Eosinophils % (Manual) Basophils % (Manual) Metamyelocytes % Diff Path Review Platelet Estimate RBC Morphology Sodium 136 Potassium 3.5 Chloride 100 Carbon Dioxide 29.0 Anion Gap 7 BUN 25 H Creatinine 2.69 H Estim Creat Clear Calc 31.06 Est GFR (MDRD) Af Amer 33 L Est GFR (MDRD) Non-Af 27 L BUN/Creatinine Ratio 9.3 L Glucose 180 H Hemoglobin A1c Calcium 7.9 L Troponin I POC Glucose 09/10/17 09/10/17 09/09/17 11:52 06:39 22:17 POC Glucose 363 H 155 H 228 H 09/09/17 15:34 POC Glucose 159 H Assessment/Plan 1. TIA, suspected Continue with aspirin and atorvastatin Pt unable to tolerate second attempt at MRI even with Ativan. Conscious sedation unavailable at this institution. Check repeat CT to see if any evolution of a stroke has appeared. Await carotid duplex Echocardiogram unremarkable. Possible this could have been metabolic with his severe hyperglycemia 2. Chest pain Workup thus far has been negative Will plan for a chemical stress test on the 3. Diabetes mellitus type 2, uncontrolled Patient states that he was not feeling well and when he is taking his U500, he was getting cramps in his hands. Patient said that he normally takes his insulin as directed. Recommended Tylenol for cramps, which he states has helped him in the past. a1c >16. Pt states he takes his insulin as instructed (I find this highly unlikely given his a1c) follow up with endocrinology as outpt 4. Hypertension From the 150s-160s at this time Continue with Imdur and lisinopril and metoprolol tartrate 5. DVT prophylaxis with subcu heparin 6. ESRD: HD per renal. 7. Disposition: pending results of head CT and stress test if patient doing well, with no new events, I suspect the patient can be discharged on 09/11 Code Visit Inpatient E&M: 52000 Subs Hosp L2
--- NOTE | 2017-09-10 12:47 | PN_ITS ---
<Zachariah Meza - Last Filed: 09/10/17 12:30> Patient Problems: Active and Suspected Problems (Last Reviewed 08/07/17 @ 10:11 by Claudette Cheek ) Chest pain (Acute) TIA (transient ischemic attack) (Acute) Subjective: Pt has no further complaints of dizziness or LH. No palpitations or LH. Nursing reports dietary noncompliance. He had a large soda brought in. Pt has generalized weakness. No further left sided complaints. No blurry vision. Pt unable to tolerate MRI with ativan. - Physical Exam General: Alert, Oriented x3, Cooperative HEENT: Atraumatic, PERRLA, EOMI, Normocephalic Neck: Supple, No JVD, Negative Carotid Bruits Lungs: Clear to auscultation, Normal air movement Cardiovascular: Regular rate, No murmurs Abdomen: Bowel Sounds Present, Soft, Non Tender, Obese Extremities: No edema, Capillary Refill Less than 3 Seconds Skin: No rashes, No breakdown Musculoskeletal: No Tenderness to Palpation of Joints or Extremities Neurological: Cranial nerves II-XII grossly intact Psych/Mental Status: Normal Affect, Appropriate, Alert and oriented to time, place, person, mood and affect Vital Signs Temp Pulse Resp BP Pulse Ox 99 F 77 16 143/62 H 96 09/10/17 12:00 09/10/17 12:07 09/10/17 12:00 09/10/17 12:00 09/10/17 12:00 Oxygen Delivery Method Room Air Weight: 112.1 kg Body Mass Index (BMI) 38.7 Intake and Output for Last 24 Hours 09/08/17 09/09/17 09/11/17 23:59 23:59 00:59 Intake Total 1820 / 1820 360 / 360 Output Total 500 / 500 Balance 1320 / 1320 360 / 360 Laboratory Tests Past 24 Hrs 09/09/17 09/09/17 09/10/17 06:10 12:10 04:53 WBC 5.8 RBC 3.55 L Hgb 10.5 L Hct 30.7 L MCV 86.5 MCH 29.6 MCHC 34.2 RDW 13.3 RDW Differential 40.9 Plt Count 278 MPV 9.8 Neut % (Auto) Not Reportable Absolute Neuts (auto) 3.3 Absolute Lymphs (auto) 2.14 Total Counted 100 Neutrophils % (Manual) 56 Band Neutrophils % 1 Lymphocytes % (Manual) 37 Monocytes % (Manual) 1 Eosinophils % (Manual) 3 Basophils % (Manual) 1 Metamyelocytes % 1 [address] Path Review May foll Platelet Estimate ADEQUATE RBC Morphology NORM C+C Sodium Potassium Chloride Carbon Dioxide Anion Gap BUN Creatinine Estim Creat Clear Calc Est GFR (MDRD) Af Amer Est GFR (MDRD) Non-Af BUN/Creatinine Ratio Glucose Hemoglobin A1c > 16.0 H Calcium Troponin I < 0.02 09/10/17 04:53 WBC RBC Hgb Hct MCV MCH MCHC RDW RDW Differential Plt Count MPV Neut % (Auto) Absolute Neuts (auto) Absolute Lymphs (auto) Total Counted Neutrophils % (Manual) Band Neutrophils % Lymphocytes % (Manual) Monocytes % (Manual) Eosinophils % (Manual) Basophils % (Manual) Metamyelocytes % Diff Path Review Platelet Estimate RBC Morphology Sodium 136 Potassium 3.5 Chloride 100 Carbon Dioxide 29.0 Anion Gap 7 BUN 25 H Creatinine 2.69 H Estim Creat Clear Calc 31.06 Est GFR (MDRD) Af Amer 33 L Est GFR (MDRD) Non-Af 27 L BUN/Creatinine Ratio 9.3 L Glucose 180 H Hemoglobin A1c Calcium 7.9 L Troponin I POC Glucose 09/10/17 09/10/17 09/09/17 11:52 06:39 22:17 POC Glucose 363 H 155 H 228 H 09/09/17 09/09/17 15:34 11:20 POC Glucose 159 H 340 H Assessment/Plan Active and Suspected Problems (Last Reviewed 08/07/17 @ 10:11 by Claudette Cheke ) Chest pain (Acute) TIA (transient ischemic attack) (Acute) 1. Slurred speech/Left sided weakness - resolved. PTOTST. Repeat CT pt cant tolerate MRI. Echo shows 65%. Also of note on presentation his glucose was 600+ which has improved. Trop neg. CT brain negative at admission. Pt is on asa/ statin. Lipid panel inaccurate 2/2 triglycerides. 2. Chest pain - stress test tomorrow. Trop neg. Pt on lily, BB, asa, statin, hydralazine, imdur, lasix. 3. T2DM - continue u500 + SSI. A1C >16. Pt needs strict dietary restriction and endocrine follow up. 4. ESRD - improved s/p dialysis yesterday. Dr. Gregorio consulted. 5. Morbid obesity - dietary consult. 6. Normocytic anemia - stable. 7. HTN - stable. DVT ppx: Heparin DC planning: PTOT This patient was seen by Zachariah Meza PA-C under the supervision of Doctor Rodrick. <Isma Mensah - Last Filed: 09/10/17 13:21> Subjective: No new events. - Physical Exam General: Alert, Cooperative HEENT: Atraumatic, Normocephalic Lungs: Clear to auscultation, Normal air movement Cardiovascular: Regular rate, Regular Rhythm, Normal S1, Normal S2, No murmurs Abdomen: Bowel Sounds Present, Soft, Non Tender, Non-Distended Extremities: No edema, No Calf Tenderness Vital Signs Temp Pulse Resp BP Pulse Ox 37.2 C 77 16 143/62 H 96 09/10/17 12:00 09/10/17 12:07 09/10/17 12:00 09/10/17 12:00 09/10/17 12:00 Oxygen Delivery Method Room Air Weight: 112.1 kg Body Mass Index (BMI) 38.7 Intake and Output for Last 24 Hours 09/08/17 09/09/17 09/11/17 23:59 23:59 00:59 Intake Total 1820 / 1820 360 / 360 Output Total 500 / 500 Balance 1320 / 1320 360 / 360 Laboratory Tests Past 24 Hrs 09/09/17 09/09/17 09/10/17 06:10 12:10 04:53 WBC 5.8 RBC 3.55 L Hgb 10.5 L Hct 30.7 L MCV 86.5 MCH 29.6 MCHC 34.2 RDW 13.3 RDW Differential 40.9 Plt Count 278 MPV 9.8 Neut % (Auto) Not Reportable Absolute Neuts (auto) 3.3 Absolute Lymphs (auto) 2.14 Total Counted 100 Neutrophils % (Manual) 56 Band Neutrophils % 1 Lymphocytes % (Manual) 37 Monocytes % (Manual) 1 Eosinophils % (Manual) 3 Basophils % (Manual) 1 Metamyelocytes % 1 Diff Path Review May foll Platelet Estimate ADEQUATE RBC Morphology NORM C+C Sodium Potassium Chloride Carbon Dioxide Anion Gap BUN Creatinine Estim Creat Clear Calc Est GFR (MDRD) Af Amer Est GFR (MDRD) Non-Af BUN/Creatinine Ratio Glucose Hemoglobin A1c > 16.0 H Calcium Troponin I < 0.02 09/10/17 04:53 WBC RBC Hgb Hct MCV MCH MCHC RDW RDW Differential Plt Count MPV Neut % (Auto) Absolute Neuts (auto) Absolute Lymphs (auto) Total Counted Neutrophils % (Manual) Band Neutrophils % Lymphocytes % (Manual) Monocytes % (Manual) Eosinophils % (Manual) Basophils % (Manual) Metamyelocytes % Diff Path Review Platelet Estimate RBC Morphology Sodium 136 Potassium 3.5 Chloride 100 Carbon Dioxide 29.0 Anion Gap 7 BUN 25 H Creatinine 2.69 H Estim Creat Clear Calc 31.06 Est GFR (MDRD) Af Amer 33 L Est GFR (MDRD) Non-Af 27 L BUN/Creatinine Ratio 9.3 L Glucose 180 H Hemoglobin A1c Calcium 7.9 L Troponin I POC Glucose 09/10/17 09/10/17 09/09/17 11:52 06:39 22:17 POC Glucose 363 H 155 H 228 H 09/09/17 15:34 POC Glucose 159 H Assessment/Plan 1. TIA, suspected * Continue with aspirin and atorvastatin * Pt unable to tolerate second attempt at MRI even with Ativan. Conscious sedation unavailable at this institution. * Check repeat CT to see if any evolution of a stroke has appeared. * Await carotid duplex * Echocardiogram unremarkable. * Possible this could have been metabolic with his severe hyperglycemia 2. Chest pain * Workup thus far has been negative * Will plan for a chemical stress test on the 3. Diabetes mellitus type 2, uncontrolled * Patient states that he was not feeling well and when he is taking his U500, he was getting cramps in his hands. Patient said that he normally takes his insulin as directed. Recommended Tylenol for cramps, which he states has helped him in the past. * a1c >16. Pt states he takes his insulin as instructed (I find this highly unlikely given his a1c) * follow up with endocrinology as outpt 4. Hypertension * From the 150s-160s at this time * Continue with Imdur and lisinopril and metoprolol tartrate 5. DVT prophylaxis with subcu heparin 6. ESRD: HD per renal. 7. Disposition: * pending results of head CT and stress test * if patient doing well, with no new events, I suspect the patient can be discharged on 09/11 Code Visit Inpatient E&M: 80353 Subs Hosp L2
--- NOTE | 2017-09-10 14:35 | PCM.CONS.R ---
Consultation - Renal 09/10/17 PCP/ Referring MD: Requesting physician: Primary care physician: Augie Washburn Reason for Consultation:: ESRD HD TTS. - History of Present Illness History of Present Illness: The patient is a 47 year old male with ESRD due to diabetes, hypertension HD TTS with noncompliance with dialysis treatments and diabetic medications, SELMA, DM2, HTN, and morbid obesity admitted for slurred speech and chest pain. Slurred speech resolved. Sugar was elevated at 630 on admit. He was not able to tolerate MRI. He received dialysis last night without incident. He is scheduled for his next dialysis on Monday. He missed treatment , complained of access arm cramping. Missed his appt with vascular surgeon due to ride not being set up. Scheduled for stress test tomorrow. - Allergies Allergies: Allergies venom-honey bee [bee venom (honey bee)] Allergy (Verified 09/08/17 17:23) Swelling sulfamethoxazole [From Bactrim] Adverse Reaction (Verified 09/08/17 17:23) Upset Stomach trimethoprim [From Bactrim] Adverse Reaction (Verified 09/08/17 17:23) Upset Stomach - Current Medications Current Medications: Current Medications Acetaminophen (Tylenol) 650 mg PO Q6H PRN PRN PRN Reason: PAIN Last Admin: 09/09/17 22:24 Dose: 650 mg Amlodipine Besylate (Norvasc) 10 mg PO DAILY [facility] Last Admin: 09/10/17 09:41 Dose: 10 mg Aspirin (Aspirin, Baby) 81 mg PO DAILY@0800 [facility] Last Admin: 09/10/17 09:42 Dose: 81 mg Atorvastatin Calcium (Lipitor) 20 mg PO QHS [facility] Last Admin: 09/09/17 22:18 Dose: 20 mg Calcitriol (Rocaltrol) 1 mcg PO DAILY [facility] Last Admin: 09/10/17 09:42 Dose: 1 mcg Dextrose (D50w Syringe) 0 gm IV X1 PRN; Protocol PRN Reason: Hypoglycemia Fluticasone Propionate (Flonase Nasal [place]) 1 spray NASAL DAILY PRN PRN Reason: ALLERGIES Furosemide (Lasix) 40 mg PO BIDLX [facility] Last Admin: 09/10/17 09:41 Dose: 40 mg Gabapentin (Neurontin) 100 mg PO TIDCM [facility] Last Admin: 09/10/17 11:54 Dose: 100 mg Glucagon () 1 mg IM .X1 PRN PRN Reason: Hypoglycemia Heparin Sodium (Porcine) (Heparin Na) 5,000 unit SC Q8 [facility] Last Admin: 09/10/17 06:34 Dose: 5,000 units Hydralazine HCl (Apresoline) 10 mg PO TID [facility] Last Admin: 09/10/17 06:34 Dose: 10 mg Insulin Aspart (Novolog Flexpen ([facility] [place])) 0 units SC TIDAC RENE PRN Reason: Protocol Last Admin: 09/10/17 11:56 Dose: 12 unit Insulin Human Regular (Humulin R U-500 ([facility] [place])) 0.17 ml SC 0730 [facility] Last Admin: 09/10/17 09:41 Dose: 85 unit Insulin Human Regular (Humulin R U-500 ([facility] [place])) 0.22 ml SC DINNER [facility] Last Admin: 09/09/17 17:23 Dose: 110 units Isosorbide Mononitrate (Imdur) 30 mg PO DAILY [facility] Last Admin: 09/10/17 09:41 Dose: 30 mg Lisinopril (Zestril) 10 mg PO DAILY [facility] Last Admin: 09/10/17 09:41 Dose: 10 mg Metoprolol Tartrate (Lopressor (Beta Emmanuel)) 50 mg PO BID [facility] Last Admin: 09/10/17 09:42 Dose: 50 mg Multivit/Ca Carb/B Cmplx/FA/Prenat (Nephrocaps, Renaphro) 1 capsule PO DAILY [facility] Last Admin: 09/10/17 09:42 Dose: 1 capsule Multivitamins/Minerals (Ocuvite) 1 tablet PO DAILY [facility] Last Admin: 09/10/17 09:42 Dose: 1 tablet Nutritional Formula (Lactose Free) (Glucerna Shake) 120 ml PO 4X/DAY [facility] Last Admin: 09/10/17 09:42 Dose: Not Given Pantoprazole Sodium (Protonix) 40 mg PO DAILY [facility] Last Admin: 09/10/17 09:43 Dose: 40 mg Pyridoxine HCl (Vitamin B-6) 100 mg PO DAILY [facility] Last Admin: 09/10/17 09:42 Dose: 100 mg Sodium Chloride () 5 - 30 ml IV UD PRN PRN Reason: SALINE FLUSH Last Admin: 09/08/17 23:10 Dose: 10 ml - Past Medical History Past Medical History (Chronic Problems): Chronic Problems (Last Reviewed 08/07/17 @ 10:11 by Claudette Cheek) Chronic respiratory failure with hypoxia (Chronic) HTN (hypertension) (Chronic) Chronic renal disease, stage IV (Chronic) Acute on chronic diastolic CHF (congestive heart failure) (Chronic) Hyperlipidemia (Chronic) Diabetic neuropathy (Chronic) Anemia (Chronic) SELMA (obstructive sleep apnea) (Chronic) Morbid obesity with BMI of 40.0-44.9, adult (Chronic) Diabetes mellitus, type II (Chronic) Renal failure (Chronic) Noncompliance (Chronic) - Past Surgical History Surgical History: tonsillectomy, - - AV fistula in right arm. - Social History Smoking Status: Never smoker - Family History Maternal Family History: Family History (Last Reviewed 08/07/17 @ 10:11 by Claudette Cheek) Mother Hypertension Heart disease Diabetes Father Hypertension Heart disease Brother Heart disease History Items: Diabetes, Heart Disease, Hypertension, Renal Disease Paternal Family History: Family History (Last Reviewed 08/07/17 @ 10:11 by Claudette Cheek) Mother Hypertension Heart disease Diabetes Father Hypertension Heart disease Brother Heart disease History Items: Cancer - liver, Diabetes, Heart Disease Review of Systems Constitutional: Denies: Anorexia, Chills, Fever HEENT: Denies: Head Aches Cardiovascular: Reports: Chest Pain. Denies: Edema Respiratory: Denies: Cough, Shortness of Breath Gastrointestinal: Denies: Abdominal Pain, Nausea, Vomiting Genitourinary: Denies: Dysuria Skin: Denies: Rash Neurological: Reports: Slurred speech Psychiatric: Reports: Anxiety Hematologic/ Lymphatic: Reports: Anemia Patient Problems: Active and Suspected Problems (Last Reviewed 08/07/17 @ 10:11 by Claudette Cheek) Chest pain (Acute) TIA (transient ischemic attack) (Acute) - Physical Exam General: Alert, Oriented x3, Cooperative, No apparent distress HEENT: PERRLA, EOMI Oral: Moist Mucosa Neck: Supple Lungs: Clear to auscultation Cardiovascular: Regular rate Abdomen: Bowel Sounds Present, Soft, Non Tender, Non-Distended, Obese Extremities: Edema Skin: No rashes Vital Signs Temp Pulse Resp BP Pulse Ox 99 F 77 16 143/62 H 96 09/10/17 12:00 09/10/17 12:07 09/10/17 12:00 09/10/17 12:00 09/10/17 12:00 Oxygen Delivery Method Room Air Weight: 112.1 kg Body Mass Index (BMI) 38.7 Intake and Output for Last 24 Hours 09/08/17 09/09/17 09/11/17 23:59 23:59 00:59 Intake Total 1820 / 1820 360 / 360 Output Total 500 / 500 Balance 1320 / 1320 360 / 360 Laboratory Tests Past 24 Hrs 09/09/17 09/10/17 09/10/17 06:10 04:53 04:53 WBC 5.8 RBC 3.55 L Hgb 10.5 L Hct 30.7 L MCV 86.5 MCH 29.6 MCHC 34.2 RDW 13.3 RDW Differential 40.9 Plt Count 278 MPV 9.8 Neut % (Auto) Not Reportable Absolute Neuts (auto) 3.3 Absolute Lymphs (auto) 2.14 Total Counted 100 Neutrophils % (Manual) 56 Band Neutrophils % 1 Lymphocytes % (Manual) 37 Monocytes % (Manual) 1 Eosinophils % (Manual) 3 Basophils % (Manual) 1 Metamyelocytes % 1 Diff Path Review May foll Platelet Estimate ADEQUATE RBC Morphology NORM C+C Sodium 136 Potassium 3.5 Chloride 100 Carbon Dioxide 29.0 Anion Gap 7 BUN 25 H Creatinine 2.69 H Estim Creat Clear Calc 31.06 Est GFR (MDRD) Af Amer 33 L Est GFR (MDRD) Non-Af 27 L BUN/Creatinine Ratio 9.3 L Glucose 180 H Hemoglobin A1c > 16.0 H Calcium 7.9 L POC Glucose 09/10/17 09/10/17 09/09/17 11:52 06:39 22:17 POC Glucose 363 H 155 H 228 H 09/09/17 15:34 POC Glucose 159 H Assessment/Plan Active and Suspected Problems (Last Reviewed 08/07/17 @ 10:11 by Claudette Cheek) Chest pain (Acute) TIA (transient ischemic attack) (Acute) 1. ESRD HD TTS, dialysis last night without incident. Noncompliance with dialysis, missed treatment . Missed f/u with vascular surgeon regarding cramping in access arm. 2. TIA primary mgmt 3. ANemia hgb stable. 4. HTN stable 5. DM2 with hyperglycemia due to noncompliance with diet, medications. 6. Morbid obesity
--- NOTE | 2017-09-10 14:42 | CON.PCM_ITS ---
Consultation - Renal 09/10/17 PCP/ Referring MD: Requesting physician: Primary care physician: Augie Washburn Reason for Consultation:: ESRD HD TTS. - History of Present Illness History of Present Illness: The patient is a 47 year old male with ESRD due to diabetes, hypertension HD TTS with noncompliance with dialysis treatments and diabetic medications, SELMA, DM2, HTN, and morbid obesity admitted for slurred speech and chest pain. Slurred speech resolved. Sugar was elevated at 630 on admit. He was not able to tolerate MRI. He received dialysis last night without incident. He is scheduled for his next dialysis on Monday. He missed treatment , complained of access arm cramping. Missed his appt with vascular surgeon due to ride not being set up. Scheduled for stress test tomorrow. - Allergies Allergies: Allergies venom-honey bee [bee venom (honey bee)] Allergy (Verified 09/08/17 17:23) Swelling sulfamethoxazole [From Bactrim] Adverse Reaction (Verified 09/08/17 17:23) Upset Stomach trimethoprim [From Bactrim] Adverse Reaction (Verified 09/08/17 17:23) Upset Stomach - Current Medications Current Medications: Current Medications Acetaminophen (Tylenol) 650 mg PO Q6H PRN PRN PRN Reason: PAIN Last Admin: 09/09/17 22:24 Dose: 650 mg Amlodipine Besylate (Norvasc) 10 mg PO DAILY [facility] Last Admin: 09/10/17 09:41 Dose: 10 mg Aspirin (Aspirin, Baby) 81 mg PO DAILY@0800 [facility] Last Admin: 09/10/17 09:42 Dose: 81 mg Atorvastatin Calcium (Lipitor) 20 mg PO QHS [facility] Last Admin: 09/09/17 22:18 Dose: 20 mg Calcitriol (Rocaltrol) 1 mcg PO DAILY [facility] Last Admin: 09/10/17 09:42 Dose: 1 mcg Dextrose (D50w Syringe) 0 gm IV X1 PRN; Protocol PRN Reason: Hypoglycemia Fluticasone Propionate (Flonase Nasal [place]) 1 spray NASAL DAILY PRN PRN Reason: ALLERGIES Furosemide (Lasix) 40 mg PO BIDLX [facility] Last Admin: 09/10/17 09:41 Dose: 40 mg Gabapentin (Neurontin) 100 mg PO TIDCM [facility] Last Admin: 09/10/17 11:54 Dose: 100 mg Glucagon () 1 mg IM .X1 PRN PRN Reason: Hypoglycemia Heparin Sodium (Porcine) (Heparin Na) 5,000 unit SC Q8 [facility] Last Admin: 09/10/17 06:34 Dose: 5,000 units Hydralazine HCl (Apresoline) 10 mg PO TID [facility] Last Admin: 09/10/17 06:34 Dose: 10 mg Insulin Aspart (Novolog Flexpen ([facility])) 0 units SC TIDAC RENE PRN Reason: Protocol Last Admin: 09/10/17 11:56 Dose: 12 unit Insulin Human Regular (Humulin R U-500 ([facility])) 0.17 ml SC 0730 [facility] Last Admin: 09/10/17 09:41 Dose: 85 unit Insulin Human Regular (Humulin R U-500 ([facility])) 0.22 ml SC DINNER [facility] Last Admin: 09/09/17 17:23 Dose: 110 units Isosorbide Mononitrate (Imdur) 30 mg PO DAILY [facility] Last Admin: 09/10/17 09:41 Dose: 30 mg Lisinopril (Zestril) 10 mg PO DAILY [facility] Last Admin: 09/10/17 09:41 Dose: 10 mg Metoprolol Tartrate (Lopressor (Beta Emmanuel)) 50 mg PO BID [facility] Last Admin: 09/10/17 09:42 Dose: 50 mg Multivit/Ca Carb/B Cmplx/FA/Prenat (Nephrocaps, Renaphro) 1 capsule PO DAILY [facility] Last Admin: 09/10/17 09:42 Dose: 1 capsule Multivitamins/Minerals (Ocuvite) 1 tablet PO DAILY [facility] Last Admin: 09/10/17 09:42 Dose: 1 tablet Nutritional Formula (Lactose Free) (Glucerna Shake) 120 ml PO 4X/DAY [facility] Last Admin: 09/10/17 09:42 Dose: Not Given Pantoprazole Sodium (Protonix) 40 mg PO DAILY [facility] Last Admin: 09/10/17 09:43 Dose: 40 mg Pyridoxine HCl (Vitamin B-6) 100 mg PO DAILY [facility] Last Admin: 09/10/17 09:42 Dose: 100 mg Sodium Chloride () 5 - 30 ml IV UD PRN PRN Reason: SALINE FLUSH Last Admin: 09/08/17 23:10 Dose: 10 ml - Past Medical History Past Medical History (Chronic Problems): Chronic Problems (Last Reviewed 08/07/17 @ 10:11 by Claudette Cheek) Chronic respiratory failure with hypoxia (Chronic) HTN (hypertension) (Chronic) Chronic renal disease, stage IV (Chronic) Acute on chronic diastolic CHF (congestive heart failure) (Chronic) Hyperlipidemia (Chronic) Diabetic neuropathy (Chronic) Anemia (Chronic) SELMA (obstructive sleep apnea) (Chronic) Morbid obesity with BMI of 40.0-44.9, adult (Chronic) Diabetes mellitus, type II (Chronic) Renal failure (Chronic) Noncompliance (Chronic) - Past Surgical History Surgical History: tonsillectomy, - - AV fistula in right arm. - Social History Smoking Status: Never smoker - Family History Maternal Family History: Family History (Last Reviewed 08/07/17 @ 10:11 by Claudette Cheek) Mother Hypertension Heart disease Diabetes Father Hypertension Heart disease Brother Heart disease History Items: Diabetes, Heart Disease, Hypertension, Renal Disease Paternal Family History: Family History (Last Reviewed 08/07/17 @ 10:11 by Claudette Cheek) Mother Hypertension Heart disease Diabetes Father Hypertension Heart disease Brother Heart disease History Items: Cancer - liver, Diabetes, Heart Disease Review of Systems Constitutional: Denies: Anorexia, Chills, Fever HEENT: Denies: Head Aches Cardiovascular: Reports: Chest Pain. Denies: Edema Respiratory: Denies: Cough, Shortness of Breath Gastrointestinal: Denies: Abdominal Pain, Nausea, Vomiting Genitourinary: Denies: Dysuria Skin: Denies: Rash Neurological: Reports: Slurred speech Psychiatric: Reports: Anxiety Hematologic/ Lymphatic: Reports: Anemia Patient Problems: Active and Suspected Problems (Last Reviewed 08/07/17 @ 10:11 by Claudette Cheek ) Chest pain (Acute) TIA (transient ischemic attack) (Acute) - Physical Exam General: Alert, Oriented x3, Cooperative, No apparent distress HEENT: PERRLA, EOMI Oral: Moist Mucosa Neck: Supple Lungs: Clear to auscultation Cardiovascular: Regular rate Abdomen: Bowel Sounds Present, Soft, Non Tender, Non-Distended, Obese Extremities: Edema Skin: No rashes Vital Signs Temp Pulse Resp BP Pulse Ox 99 F 77 16 143/62 H 96 09/10/17 12:00 09/10/17 12:07 09/10/17 12:00 09/10/17 12:00 09/10/17 12:00 Oxygen Delivery Method Room Air Weight: 112.1 kg Body Mass Index (BMI) 38.7 Intake and Output for Last 24 Hours 09/08/17 09/09/17 09/11/17 23:59 23:59 00:59 Intake Total 1820 / 1820 360 / 360 Output Total 500 / 500 Balance 1320 / 1320 360 / 360 Laboratory Tests Past 24 Hrs 09/09/17 09/10/17 09/10/17 06:10 04:53 04:53 WBC 5.8 RBC 3.55 L Hgb 10.5 L Hct 30.7 L MCV 86.5 MCH 29.6 MCHC 34.2 RDW 13.3 RDW Differential 40.9 Plt Count 278 MPV 9.8 Neut % (Auto) Not Reportable Absolute Neuts (auto) 3.3 Absolute Lymphs (auto) 2.14 Total Counted 100 Neutrophils % (Manual) 56 Band Neutrophils % 1 Lymphocytes % (Manual) 37 Monocytes % (Manual) 1 Eosinophils % (Manual) 3 Basophils % (Manual) 1 Metamyelocytes % 1 Diff Path Review May foll Platelet Estimate ADEQUATE RBC Morphology NORM C+C Sodium 136 Potassium 3.5 Chloride 100 Carbon Dioxide 29.0 Anion Gap 7 BUN 25 H Creatinine 2.69 H Estim Creat Clear Calc 31.06 Est GFR (MDRD) Af Amer 33 L Est GFR (MDRD) Non-Af 27 L BUN/Creatinine Ratio 9.3 L Glucose 180 H Hemoglobin A1c > 16.0 H Calcium 7.9 L POC Glucose 09/10/17 09/10/17 09/09/17 11:52 06:39 22:17 POC Glucose 363 H 155 H 228 H 09/09/17 15:34 POC Glucose 159 H Assessment/Plan Active and Suspected Problems (Last Reviewed 08/07/17 @ 10:11 by Claudette Cheek ) Chest pain (Acute) TIA (transient ischemic attack) (Acute) 1. ESRD HD TTS, dialysis last night without incident. Noncompliance with dialysis, missed treatment . Missed f/u with vascular surgeon regarding cramping in access arm. 2. TIA primary mgmt 3. ANemia hgb stable. 4. HTN stable 5. DM2 with hyperglycemia due to noncompliance with diet, medications. 6. Morbid obesity
[2017-09-10] MEDS: Acetaminophen 325 MG Tablet 650 MG PO (15:08)
[2017-09-10 17:26] LABS: Bedside Glucose 275 mg/dL (70-110)
[2017-09-10 21:20] LABS: Bedside Glucose 370 mg/dL (70-110)
[2017-09-10] MEDS: Atorvastatin Calcium 20 MG Tablet PO (21:20)
[2017-09-10 23:31] LABS: Bedside Glucose 349 mg/dL (70-110)
[2017-09-11] VITALS (10 sets, daily range): BP systolic 143–163; BP diastolic 72–80; PULSE 74–84; RESP 18; TEMP 36.7–36.9; O2SAT 94–96; BMI 38.7
[2017-09-11] MEDS: Aspirin 81 MG TAB.CHEW PO (05:53)
[2017-09-11] MEDS: Lisinopril 10 MG Tablet PO (05:53)
--- NOTE | 2017-09-11 05:55 | EKG12_ITS ---
Test Reason : AM Blood Pressure : / mmHG Vent. Rate : 082 BPM Atrial Rate : 082 BPM P-R Int : 138 ms QRS Dur : 086 ms QT Int : 356 ms P-R-T Axes : 026 007 015 degrees QTc Int : 415 ms Normal sinus rhythm Normal ECG When compared with ECG of 18-APR-2017 20:23, No significant change was found Confirmed by HOUSTON LOMELI, CANDIE ([id number]), features editor DEREK KEARNS ([id number]) on 09/13/2017 4:16:25 PM Referred By: LAZARO Confirmed By:CANDIE CONRAD MD
[2017-09-11 06:10] LABS: International Normalized Ratio 0.9; Prothrombin Time (Protime)PT. 11.7 SECONDS (11.7-14.9)
[2017-09-11 06:11] LABS: Partial Thromboplast Time 25.5 Seconds (24.1-36.2)
[2017-09-11 06:18] LABS: Absolute Lymphocyte Count 1.51 X10^3/ul (0.83-4.51); Basophil# 0.06 X10^3/uL; Basophil% 1.1 % (0-1); Eosinophil# 0.23 X10^3/uL; Eosinophils% 4.2 % (0-5); Hematocrit 31.6 % (40-54); Hemoglobin 10.5 g/dl (13.0-16.5); Lymphocyte # 1.51 X10^3/ul (4.0); Lymphocyte % 27.6 % (19-41); Mean Corp Hgb Conc 33.2 g/gl (32-36); Mean Corpuscular Hgb 29.2 pg (27.0-32.0); Mean Corpuscular Volume 87.8 fL (80-94); Mean Platelet Vol. 9.8 fl (6.2-12.0); Monocyte# 0.49 X10^3/uL; Monocyte% 8.9 % (0-10); Neutrophil # 3.04 X10^3/uL (2.7-7.7); Neutrophil % 55.5 % (47-70); POSITIVE COUNT YES; POSITIVE DIFFERENTIAL NO; POSITIVE MORPHOLOGY YES; Platelet Count 242 K/mm3 (150-450); RBC Distribution Width CV 13.5 % (11.6-14.6); RBC Distribution Width SD 43.5 fl (35.1-43.9); White Blood Count 5.5 K/mm3 (4.4-11.0)
[2017-09-11 06:35] LABS: Anion Gap 10 (5-15); BUN 41 mg/dL (7-18); BUN/Creat Ratio 10.6 RATIO (10-20); Calcium,Total 8.6 mg/dL (8.5-10.1); Chloride 101 mmol/L (98-107); Creatinine, Serum 3.86 mg/dL (0.70-1.30); EST Glomerular Filtration Rate 18 mL/min (>60); Est Glom Filt Rate - Afr Amer 22 mL/min (>60); Estimated Creatinine Clearance 21.64 ml/min; Glucose 346 mg/dL (74-106); Potassium 4.4 mmol/L (3.5-5.1); Sodium Level 137 mmol/L (136-145)
[2017-09-11 06:46] LABS: Bedside Glucose 350 mg/dL (70-110)
[2017-09-11] MEDS: Folic Acid/Vitamin B Comp W-C 1 Capsule 1 CAP PO (08:54)
[2017-09-11] MEDS: Pantoprazole Sodium 40 MG Tablet PO (08:54)
[2017-09-11] MEDS: Metoprolol Tartrate 50 MG Tablet PO (08:54)
[2017-09-11] MEDS: amLODIPine 10 MG Tablet PO (08:54)
[2017-09-11] MEDS: Isosorbide Mononitrate 30 MG Tablet PO (08:54)
[2017-09-11] MEDS: Furosemide 40 MG Tablet PO (08:55)
[2017-09-11] MEDS: Calcitriol 0.25 MCG Capsule 1 MCG PO (08:55)
[2017-09-11] MEDS: Gabapentin 100 MG Capsule PO ×2 (08:55→11:43)
[2017-09-11] MEDS: Pyridoxine HCl 100 MG Tablet PO (08:55)
[2017-09-11] MEDS: Acetaminophen 325 MG Tablet 650 MG PO (09:06)
[2017-09-11 10:50] LABS: Bedside Glucose 442 mg/dL (70-110)
--- NOTE | 2017-09-11 10:59 | STRESSREP_ITS ---
Stress Test Report Pharmacologic myocardial perfusion stress test. 47-year-old man with a history of Beatties mellitus slurred speech and chest pain. Medications Norvasc aspirin Lipitor lisinopril isosorbide metoprolol. Stress protocol: Resting EKG demonstrates normal sinus rhythm with a rate of 85 bpm normal intervals and noted resting blood pressure is 178/80 mmHg. 0.4 mg regadenoson was infused per usual protocol followed by rapid intravenous saline flush injection. Continuous EKG monitoring was performed. The maximum heart rate attained was 90 bpm which was 52% maximum predicted heart rate maximum workload attained was 1 metabolic equivalent. At rest there were no ST or T-wave changes noted suggest abnormal flow reserve at peak infusion no ST or T-wave changes were noted suggest abnormal flow reserve. Resting blood pressure is 178 /80 with a final blood pressure 176/80. Myocardial perfusion protocol:. 14.7 mCi of technetium 99m sestamibi was injected at rest. 0.4 mg regadenoson was infused per usual protocol. At peak infusion 44.9 mCi of technetium 99m sestamibi was injected. Stress images were obtained. Stress and rest images were reconstructed and compared in the short axis vertical long horizontal long axis. Gated images were also obtained. Next Perfusion SPECT analysis: Review of the stress images demonstrate normal uptake of tracer noted in all areas of the myocardium. The resting images similarly demonstrate normal uptake of tracer noted in all areas myocardium. No areas of reversibility are noted suggest ischemia no previous infarct is noted. Gated SPECT analysis: The gated ejection fraction is noted to be 61%. Conclusion: Normal pharmacologic myocardial perfusion stress test. Preserved ejection fraction.
--- NOTE | 2017-09-11 11:24 | DCINST_ITS ---
You will use the following diet at home:: Calorie/Carbohydrate Controlled ( specify 1200, 1400, etc) - 1800 calories per day, Cardiac, Renal (restricted protein/sodium) Your food should be the consistency of: Regular Your liquids should be the consistency of: Regular/Thin Discharge Activity: Return to Normal Activity Allergies/Adverse Reactions: Allergies venom-honey bee [bee venom (honey bee)] Allergy (Verified 09/08/17 17:23) Swelling sulfamethoxazole [From Bactrim] Adverse Reaction (Verified 09/08/17 17:23) Upset Stomach trimethoprim [From Bactrim] Adverse Reaction (Verified 09/08/17 17:23) Upset Stomach Medications to take at Discharge Amlodipine [Norvasc] 10 mg PO DAILY 07/27/17 Metoprolol Tartrate 50 mg PO BID 07/27/17 Omeprazole 40 mg PO DAILY 07/27/17 insulin regular human U-500concentrate 500 unit/mL subcutaneous soln 17 units SC DAILY ml 08/07/17 Aspirin [Aspirin, Baby] 81 mg PO DAILY@0800 09/08/17 Calcitriol [Rocaltrol] 1 mcg PO DAILY 09/08/17 Fluticasone Propionate 1 spray NASAL DAILY PRN 09/08/17 Furosemide 40 mg PO BID 09/08/17 Gabapentin [Neurontin] 100 mg PO TIDCM 09/08/17 HydrALAZINE [Apresoline] 10 mg PO TID 09/08/17 Insulin U-500 [Humulin R U-500 (BKC)] 22 units PO DINNER 09/08/17 Isosorbide Mononitrate [Isosorbide Mononitrate ER] 30 mg PO DAILY 09/08/17 Lisinopril [Zestril] 10 mg PO DAILY 09/08/17 Pyridoxine HCl [Vitamin B6] 100 mg PO DAILY 09/08/17 Triphrocaps 1 cap PO DAILY 09/08/17 Vits A,C,E/Lutein/Minerals [Ocuvite with Lutein Tablet] 1 tab PO DAILY 09/08/17 Atorvastatin Calcium 40 mg PO DAILY #30 tab 09/11/17 The following prescriptions were given: Atorvastatin Calcium 40 mg PO DAILY #30 tab Primary Care Physician: Augie Washburn MD [Primary Care Provider] - Please follow up with your Primary Care Physician in: 1 week Please Follow Up With: Anca Gregorio DO When: Resume normal dialysis appointments Please Follow Up With: Your vascular surgeon - Regarding cramping in your fistula arm When: 1-2 weeks Proposed Discharge Date: 09/11/17
--- NOTE | 2017-09-11 11:50 | CASEMGMT ---
SW received a referral indicating patient would like to do a new healthcare POA. SW met with patient and his significant other, introduced self and role at [facility]. He confirmed that he wanted to complete a new one. SW completed forms with patient and copies were made. One copy placed in his chart and 2 extras alone with original were given to patient. Agatha SHEETS MSW
--- NOTE | 2017-09-11 14:48 | PCM.DC.SUM ---
<Zachariah Meza - Last Filed: 09/11/17 14:48> Discharge Date and Diagnosis Date of Admission: 09/08/17 Date of Discharge: 09/11/17 - Primary Discharge Diagnosis Dizziness , slurred speech felt to be 2/2 severe hyperglycemia, acute CVA ruled out Chest pain - musculoskeletal T2DM ESRD Morbid Obesity Normocytic anemia HTN Noncompliance with prescribed medication and recommended diet - Secondary Discharge Diagnosis Chronic Problems (Last Reviewed 08/07/17 @ 10:11 by Claudette Cheek) Chronic respiratory failure with hypoxia (Chronic) HTN (hypertension) (Chronic) Chronic renal disease, stage IV (Chronic) Acute on chronic diastolic CHF (congestive heart failure) (Chronic) Hyperlipidemia (Chronic) Diabetic neuropathy (Chronic) Anemia (Chronic) SELMA (obstructive sleep apnea) (Chronic) Morbid obesity with BMI of 40.0-44.9, adult (Chronic) Diabetes mellitus, type II (Chronic) Renal failure (Chronic) Noncompliance (Chronic) Hospital Course and Treatment Imaging Results: RAD/Chest 1 View (Portable) IMPRESSION: Mild medial basilar subsegmental volume loss. Stable borderline to mild cardiac enlargement. CT/Brain/Head without Contrast IMPRESSION: 1. Normal unenhanced CT scan of the brain. 2. Mild chronic left maxillary sinusitis. Echo: Interpretation Summary Normal LV size. Left ventricular systolic function is normal. The estimated ejection fraction is 65 %. No evidence for diastolic dysfunction. Mild (1+) tricuspid valve insufficiency. Contrast injection was performed. CT brain repeat: IMPRESSION: No evidence for acute intracranial hemorrhage, mass effect or acute large territory infarcts. Stress Test: Conclusion: Normal pharmacologic myocardial perfusion stress test. Preserved ejection fraction. Consults: Nephrology - Jg Operations: None Procedures: 2-D Echocardiogram, Stress test Summary of Care Provided: Physical exam on day of discharge: General: Resting comfortably NAD Psych: A/Ox3 normal affect HEENT: [place] AT NC Neck: Supple NT CV: RRR no m/t/r/g/h Resp: CTA Abd: [id number] Soft NT no guarding or rigidity, obesity. Ext: DP2+= no edema Skin: W/D normal turgor Lymph/Heme: No active bleeding or adenopathy Neuro: CN2-12 intact Hospital course: The patient is a 47 year old M with a hx of severely uncontrolled DMt2, ESRD, HTN, who presented to the ER with left sided dull achey Chest pain, dizziness, and reported slurred speech. He underwent a CT of the brain which was negative, had a negative troponin, negative EKG, negative CXR. He was admitted for concern for CP and TIA. He had reportedly missed dialysis as well. His blood sugar was over 600 at presentation. He openly admitted on several occasions that he did not always take his U500 insulin because he thought it made his right arm cramp. He was placed on his home insulin regimen and his blood sugar improved. He had repeat troponins which were negative. He was unable to tolerate the MRI of his brain as he was too anxious even with ativan. He instead had a repeat CT brain with no acute changes. He later underwent a stress test which was also negative. His A1C was >16.0. He was openly noncompliant with his diet admitting to eating fast food and his girlfriend brought him a large soda while he was here. At this time his symptoms were felt to be attributed to his elevated blood sugar, however as no MRI could be obtained I did increase his statin therapy and maintained him on aspirin. I advised him to follow up with GARRICK Greene who sees him for his diabetes, and with Dr. Gregorio for dialysis - who was consulted for dialysis while here. Per Dr. Gregorio's recommendation I advised him to follow up with his vascular surgeon to assess his fistula if he continues to have cramping in that arm. He was discharged home in stable condition. At his request I also provided him a with new scripts for insulin syringes and needles, and test strips as he reported he was out. This patient was seen by Zachariah Meza PA-C under the supervision of Doctor Desai. [] Discharge Diet: Low fat/ Low Cholesterol, 1800 Calorie Control Diet, 2000 mg Sodium Diet, Renal Diet Discharge Activity: Return to Normal Activity Home Medications: Medications to take at Discharge Amlodipine [Norvasc] 10 mg PO DAILY 07/27/17 Metoprolol Tartrate 50 mg PO BID 07/27/17 Omeprazole 40 mg PO DAILY 07/27/17 insulin regular human U-500concentrate 500 unit/mL subcutaneous soln 17 units SC DAILY ml 08/07/17 Aspirin [Aspirin, Baby] 81 mg PO DAILY@0800 09/08/17 Calcitriol [Rocaltrol] 1 mcg PO DAILY 09/08/17 Fluticasone Propionate 1 spray NASAL DAILY PRN 09/08/17 Furosemide 40 mg PO BID 09/08/17 Gabapentin [Neurontin] 100 mg PO TIDCM 09/08/17 HydrALAZINE [Apresoline] 10 mg PO TID 09/08/17 Insulin U-500 [Humulin R U-500 (BKC)] 22 units PO DINNER 09/08/17 Isosorbide Mononitrate [Isosorbide Mononitrate ER] 30 mg PO DAILY 09/08/17 Lisinopril [Zestril] 10 mg PO DAILY 09/08/17 Pyridoxine HCl [Vitamin B6] 100 mg PO DAILY 09/08/17 Triphrocaps 1 cap PO DAILY 09/08/17 Vits A,C,E/Lutein/Minerals [Ocuvite with Lutein Tablet] 1 tab PO DAILY 09/08/17 Atorvastatin Calcium 40 mg PO DAILY #30 tab 09/11/17 Following Prescrptions Were Given to Patient: Atorvastatin Calcium 40 mg PO DAILY #30 tab Primary Care Physician: Augie Washburn MD [Primary Care Provider] - Please follow up with your Primary Care Physician in: 1 week Please Follow Up With: Anca Gregorio DO When: Resume normal dialysis appointments Please Follow Up With: Your vascular surgeon - Regarding cramping in your fistula arm When: 1-2 weeks Disposition: Home Minutes spent on discharge:: 40 Patient Condition:: Stable Meaningful Use Info Meaningful Use Diagnoses (Choose all that apply): None applicable <Werner Desai - Last Filed: 09/11/17 15:46> Discharge Date and Diagnosis - Secondary Discharge Diagnosis Chronic Problems (Last Reviewed 08/07/17 @ 10:11 by Claudette Cheek) Chronic respiratory failure with hypoxia (Chronic) HTN (hypertension) (Chronic) Chronic renal disease, stage IV (Chronic) Acute on chronic diastolic CHF (congestive heart failure) (Chronic) Hyperlipidemia (Chronic) Diabetic neuropathy (Chronic) Anemia (Chronic) SELMA (obstructive sleep apnea) (Chronic) Morbid obesity with BMI of 40.0-44.9, adult (Chronic) Diabetes mellitus, type II (Chronic) Renal failure (Chronic) Noncompliance (Chronic) Hospital Course and Treatment Summary of Care Provided: The patient is a 47 year old M with significant past medical history including diabetes mellitus type 2 end-stage renal disease on hemodialysis hypertension who presented with left-sided dull chest pain as well as slurred speech. Patient was placed in a monitored bed. ID was ruled out with serial cardiac enzymes. Patient subsequently underwent a nuclear stress test which is negative for stress-induced ischemia. Patient also had imaging studies of the head which is negative for acute CVA. Patient was discharged home after stabilization of his medical condition Patient was seen and examined by myself on the day of his discharge his discharge instructions and med initially reviewed together with Zachariah Meza. Hospital course is as documented above Total time spent on discharge process 35 minutes. Code Visit Inpatient E&M: [id number] Disch Hosp
[2017-09-13 10:55] LABS: Pathologist Review Reviewed
[2017-09-13 10:57] LABS: Pathologist Review Reviewed
== END 2017-09-11 12:25 | disposition home or self-care (01) | DRG 637 ==
LOC: ED 21:34 → PCU 21:45
PROVIDERS: Admitting Provider Internal Medicine; Emergency Provider Emergency Medicine; Family Provider Internal Medicine; PCP Internal Medicine; Visit Provider Internal Medicine
DX: E11.65 Type 2 diabetes mellitus with hyperglycemia (principal); N18.6 End stage renal disease; I13.2 Hypertensive heart and chronic kidney disease with heart failure and with stage 5 chronic kidney disease, or end stage renal disease; E11.22 Type 2 diabetes mellitus with diabetic chronic kidney disease; E11.40 Type 2 diabetes mellitus with diabetic neuropathy, unspecified; E66.01 Morbid (severe) obesity due to excess calories; I50.32 Chronic diastolic (congestive) heart failure; R47.81 Slurred speech; R07.89 Other chest pain; Z99.2 Dependence on renal dialysis; Z79.4 Long term (current) use of insulin; Z91.19 Patient's noncompliance with other medical treatment and regimen; D64.9 Anemia, unspecified; Z68.38 Body mass index [BMI] 38.0-38.9, adult; E78.5 Hyperlipidemia, unspecified; G47.33 Obstructive sleep apnea (adult) (pediatric)
CPT/HCPCS: 36415; 70450; 71045; 78452; 80048; 80061; 80307; 82947; 82962; 83036; 84443; 84484; 85025; 85610; 85730; 90937; 92523; 93005; 93017; 93306; 93880; 97161; 97165; 97802; 99285; A9500; J7030; Q9957; A4216; C8929; G0257; J2785

== ENCOUNTER 2017-10-11 00:22 | Inpatient (IN) | payer MEDICARE, MEDICAID, SELFPAY ==
[2017-10-11] VITALS (42 sets, daily range): BP systolic 119–170; BP diastolic 56–96; PULSE 79–98; RESP 13–28; TEMP 36.8–38.3; O2SAT 87–100; BMI 46.3; BMI 134.1
--- NOTE | 2017-10-11 00:43 | EKG12_ITS ---
Test Reason : SOB Blood Pressure : / mmHG Vent. Rate : 090 BPM Atrial Rate : 090 BPM P-R Int : 146 ms QRS Dur : 078 ms QT Int : 342 ms P-R-T Axes : 025 023 -16 degrees QTc Int : 418 ms Normal sinus rhythm Normal ECG Confirmed by HOUSTON LOMELI, CANDIE ([id number]), online content editor DEREK KEARNS ([id number]) on 10/13/2017 11:28:09 AM Referred By: DERIC Confirmed By:CANDIE CONRAD MD
--- NOTE | 2017-10-11 00:43 | RAD_ITS ---
STUDY: X-RAY CHEST REASON FOR EXAM: Male, 47 years old. Shortness of breath. TECHNIQUE: Single AP portable view of the chest. COMPARISON: 09/08/2017. FINDINGS: There is increased interstitial prominence in the perihilar regions, suggesting mild CHF. There is no demonstrated pleural abnormality. There is mild cardiac enlargement. Normal mediastinum and esmer. Normal visualized pulmonary arteries. Normal visualized aortic arch and descending thoracic aorta. Normal visualized thoracic spine. Normal visualized ribs, clavicles, and shoulders. There is no demonstrated abnormality of the visualized soft tissue structures of the upper abdomen. RAD/Chest 1 View (Portable) IMPRESSION: Cardiomegaly with mild CHF. Electronically Signed: Franklin Crews MD at 1:28 EDT , Service support ,
[2017-10-11 01:04] LABS: Absolute Neutrophil Count 5.6 X10^3/uL (2.0-7.7); Basophil# 0.03 X10^3/uL; Basophil% 0.4 % (0-1); Eosinophil# 0.06 X10^3/uL; Eosinophils% 0.9 % (0-5); Hematocrit 27.2 % (40-54); Hemoglobin 8.7 g/dl (13.0-16.5); Lymphocyte % 7.3 % (19-41); Mean Corpuscular Hgb 30.3 pg (27.0-32.0); Mean Corpuscular Volume 94.8 fL (80-94); Mean Platelet Vol. 10.6 fl (6.2-12.0); Monocyte% 8.8 % (0-10); Neutrophil # 5.61 X10^3/uL (2.7-7.7); Neutrophil % 81.9 % (47-70); Platelet Count 173 K/mm3 (150-450); RBC Distribution Width CV 14.7 % (11.6-14.6); RBC Distribution Width SD 48.8 fl (35.1-43.9); Red Blood Count 2.87 M/mm3 (4.6-6.2); White Blood Count 6.9 K/mm3 (4.4-11.0)
[2017-10-11 01:06] LABS: Differential Indicated SCAN CRITERIA MET; POSITIVE COUNT NO; POSITIVE DIFFERENTIAL YES; POSITIVE MORPHOLOGY NO
[2017-10-11 01:16] LABS: Allen Test POS; Base Excess -10 mmol/L (-2 to +2); Bicarbonate 17.9 mmol/L (22-26); Blood Gas Specimen Type ART; EPAP 8; FI02 30; IPAP 16; PO2 107 mmHG (75-100); RR 21; SITE L Radial; SO2 97 % (95-99); Time Given 115; Total Carbon Dioxide 19 mmol/L; pCO2 42.8 mmHg (35-45); pH 7.23 (7.35-7.45)
[2017-10-11 01:31] LABS: Anion Gap 10 (5-15); BUN 87 mg/dL (7-18); BUN/Creat Ratio 14.4 RATIO (10-20); Calcium,Total 7.7 mg/dL (8.5-10.1); Chloride 105 mmol/L (98-107); Creatinine, Serum 6.05 mg/dL (0.70-1.30); EST Glomerular Filtration Rate 11 mL/min (>60); Est Glom Filt Rate - Afr Amer 13 mL/min (>60); Estimated Creatinine Clearance 13.81 ml/min; Glucose 568 mg/dL (74-106); Potassium 7.4 mmol/L (3.5-5.1); Sodium Level 135 mmol/L (136-145)
--- NOTE | 2017-10-11 01:33 | NURSING ---
LAB CALLS WITH KCL 7.[address] LEOS AWARE.
[2017-10-11] MEDS: Albuterol 2.5 MG/3 ML VIAL.NEB. INHALATION (01:50)
[2017-10-11] MEDS: Calcium Gluconate 1 GM/10 ML Vial IV (01:50)
[2017-10-11] MEDS: Dextrose 50%-Water 25 GM/50 ML DISP.SYRIN IV (01:50)
--- NOTE | 2017-10-11 01:58 | ED.DCSUM_ITS ---
- ER Visit Summary Date of Service: 10/11/17 Chief Complaint: Shortness of breath History of Present Illness: The patient is a 47 M with shortness of breath, weakness, and sweats. Symptoms started gradually over the last few days. He presented by EMS. EMS started BiPAP for respiratory distress. Patient says it is helping with his symptoms. He has a history of CHF, end-stage renal disease on dialysis, and diabetes. Patient has a history of noncompliance with treatments and dialysis. He said his last dialysis was 4 days ago. Physical Examination: Slightly hypertensive and tachypneic. Afebrile. 99% on BiPAP. Sitting comfortably. Breathing comfortably. Lungs diminished throughout all flores. Heart regular. Abdomen soft. Symmetric peripheral edema noted. Test Results: EKG showed sinus rhythm at a rate of 90. No sign of acute ischemia or infarction. T waves unremarkable. Hemoglobin shows anemia but is stable. Potassium 7.4. Anion gap normal. Carb 20. Glucose 568. PH 7.23. CO2 43. Chest x-ray showed CHF. Emergency Department Course and Treatment: Patient presents with volume overload and respiratory failure after missing dialysis. He is doing well on BiPAP and this was continued. He has hyperkalemia and was treated with calcium , dextrose, insulin, and albuterol. He is hyperglycemic and has a metabolic acidosis. No increased anion gap. Patient will need admission to the ICU. I spoke with Dr. Bowen. I also spoke with the hospitalist, Dr. Dasilva and the patient's project geophysicist, Dr. Gregorio to coordinate care. Treatment Plan: As above Disposition: ICU Impression: 1. Acute respiratory failure 2. End-stage renal disease 3. Anemia 4. Hyperkalemia 5. Hyperglycemia This note was generated with [employer]ation software. It may contain incorrect words, spelling, and punctuation that were not noted in review of the chart prior to signing ED Disposition - Plan for ED Patient: Chief Complaint: Shortness of Breath Referrals: Augie Washburn MD [Primary Care Provider] -
--- NOTE | 2017-10-11 01:59 | HP.PCM_ITS ---
Problem List (1) TIA (transient ischemic attack) Status: Chronic Qualifiers: Transient cerebral ischemia type: unspecified Qualified Code(s): G45.9 - Transient cerebral ischemic attack, unspecified (2) CHF (congestive heart failure) Status: Chronic Qualifiers: Heart failure type: diastolic Heart failure chronicity: chronic Qualified Code(s): I50.32 - Chronic diastolic (congestive) heart failure (3) Chronic respiratory failure with hypoxia Status: Chronic (4) HTN (hypertension) Status: Chronic Qualifiers: Hypertension type: essential hypertension Qualified Code(s): I10 - Essential (primary) hypertension (5) Hyperlipidemia Status: Chronic Qualifiers: Hyperlipidemia type: unspecified Qualified Code(s): E78.5 - Hyperlipidemia , unspecified (6) Diabetic neuropathy Status: Chronic Qualifiers: Diabetes mellitus type: type 2 Diabetes mellitus complication detail: with other neurological complication Qualified Code(s): E11.49 - Type 2 diabetes mellitus with other diabetic neurological complication (7) Anemia Status: Chronic Qualifiers: Anemia type: unspecified type Qualified Code(s): D64.9 - Anemia, unspecified (8) SELMA (obstructive sleep apnea) Status: Chronic (9) Morbid obesity with BMI of 40.0-44.9, adult Status: Chronic (10) Diabetes mellitus, type II Status: Chronic Qualifiers: Diabetes mellitus terminal operations supervisor insulin use: without terminal operations supervisor use Diabetes mellitus complication status: with unspecified complications Qualified Code(s) : E11.8 - Type 2 diabetes mellitus with unspecified complications (11) Renal failure Status: Chronic Qualifiers: Renal failure chronicity: chronic Chronic kidney disease stage: on chronic dialysis Qualified Code(s): N18.6 - End stage renal disease; Z99.2 - Dependence on renal dialysis (12) Noncompliance Status: Chronic History of Present Illness Date of Admission: 10/11/17 Chief Complaint: Malaise, Dyspnea, missed HD The patient is a 47 y/o M w/ PMHx: ESRD on HD TTH following w/ Dr. Gregorio, HTN, HLD , AOCD, Chronic Diastolic CHF, Diabetes mellitus type II w/ Neuropathy, Morbid Obesity, SELMA, Morbid Obesity, notable history of serial non-compliance with medication, office visits and dialysis who presents to the [facility] ED on 10/11/17 with dyspnea, orthopnea, more pronounced on day prior to ED presentation with noted session on both and Monday, but missed session on Monday and again missed session on Monday. In the ED patient notes improvement following BIPAP initiation but still ongoing dyspnea. In the ED work-up included T 99, HR 92, BP 166/82, RR 28, 99% on BIPAP, CBC w/ WBC 6.9, Hgb 8.7, Plts 173 without marked shift, ABG w/ pH 7.23, Bicarb 17.9, BE -10, pO2 107, BMP w/ Na 135, K 7.4 , CO2 20, BUN/Cr 87/6.05, glucose 568, Ca 7.7, trop <0.02, CXR with cardiomegaly and congestion. In the ED patient administered albuterol, Ca- gluconate, dextrose, insulin. ED contacted Dr. Bowen ICU and also Dr. Gregorio Nephrology to assist in coordination of HD. Past Medical History Past Medical History (Chronic Problems): Chronic Problems (Last Updated 09/25/17 @ 11:51 by Claudette Cheek) TIA (transient ischemic attack) (Chronic) CHF (congestive heart failure) (Chronic) Chronic respiratory failure with hypoxia (Chronic) HTN (hypertension) (Chronic) Chronic renal disease, stage IV (Chronic) Acute on chronic diastolic CHF (congestive heart failure) (Chronic) Hyperlipidemia (Chronic) Diabetic neuropathy (Chronic) Anemia (Chronic) SELMA (obstructive sleep apnea) (Chronic) Morbid obesity with BMI of 40.0-44.9, adult (Chronic) Diabetes mellitus, type II (Chronic) Renal failure (Chronic) Noncompliance (Chronic) Allergies venom-honey bee [bee venom (honey bee)] Allergy (Verified 09/25/17 11:28) Swelling sulfamethoxazole [From Bactrim] Adverse Reaction (Verified 09/25/17 11:28) Upset Stomach trimethoprim [From Bactrim] Adverse Reaction (Verified 09/25/17 11:28) Upset Stomach Home Medications: Ambulatory Orders Medication Instructions Recorded Amlodipine Besylate [Norvasc] 10 mg PO DAILY 10/11/17 Aspirin [Aspirin, Baby] 81 mg PO DAILY@0800 10/11/17 Atorvastatin Calcium [Lipitor] 20 mg PO QHS 10/11/17 Furosemide [Lasix] 40 mg PO BIDLX 10/11/17 Gabapentin [Neurontin] 100 mg PO TIDCM 10/11/17 Isosorbide Mononitrate [Imdur] 30 mg PO DAILY 10/11/17 Lisinopril [Zestril] 10 mg PO DAILY 10/11/17 Metoprolol Tartrate [Lopressor 50 mg PO BID 10/11/17 (Beta Emmanuel)] Omeprazole 40 mg PO DAILY 10/11/17 Pyridoxine HCl [Vitamin B-6] 100 mg PO DAILY 10/11/17 Sevelamer HCl [Renagel] 800 mg PO DAILY 10/11/17 Vits A,C,E/Lutein/Minerals 1 each PO DAILY 10/11/17 [Ocuvite with Lutein Tablet] hydrALAZINE [Apresoline] 10 mg PO TID 10/11/17 Surgical History: tonsillectomy, - - AV fistula in right arm. Psychiatric History: No pertinent psych hx Lives: Spouse/ Significant Other Smoking Status: Never smoker Tobacco Use: Non-smoker Alcohol: None Drugs: None - *Family History Maternal History Items: Diabetes, Heart Disease, Hypertension, Renal Disease Paternal History Items: Cancer - liver, Diabetes, Heart Disease Review of Systems Constitutional: Reports: Malaise, Weakness, Fatigue. Denies: Chills, Fever, Weight Change HEENT: Denies: Head Aches, Sinus Congestion, Sinus Drainage Cardiovascular: Reports: Edema - Mild ankle edema.. Denies: Chest Pain, Palpitations Respiratory: Reports: Shortness of Breath, Shortness of breath at rest, Shortness of breath upon exertion. Denies: Cough, Sputum production Gastrointestinal: Denies: Abdominal Pain, Nausea, Vomiting Genitourinary: Denies: Dysuria Musculoskeletal: Denies: Joint Pain, Joint Tenderness Skin: Denies: Rash, Wounds Neurological: Denies: Numbness, Tingling, Focal weakness Psychiatric: Reports: Anxiety, Depression. Denies: Homicidal Ideations, Suicidal Ideations Hematologic/ Lymphatic: Reports: Anemia. Denies: Easy Bruising, Easy Bleeding VTE Information - Inpt Only VTE Present on Admission: No VTE Mechan Device Prophylaxis: SCD's VTE Pharm Prophylaxis ordered?: Yes Subjective: Seated upright in the ED bed, fatigued appearing, BIPAP in place, accessory muscle usage. Objective: Physical Examination: General: awake, intermittently alert, oriented x 3 and cooperative, seated upright in the ED bed, BIPAP in place, fatigued appearance, increased RR/ accessory muscle usage. Skin: normal color, turgor, no icterus, cyanosis. HEENT: AT/NC, EOMI, PERRLA, dry MM, BIPAP in place, no carotid bruits or JVD noted; however, thickened neck and habitus make examination difficult. Lungs: Severely diminished BS BL, > bases, BIPAP in place, increased RR, accessory muscle usage, no marked rales/crackles noted. Heart: Regular rate and rhythm; no gallop, rub audible. Abdomen: soft, morbidly obese, NTTP, ND, normal BS, no HSM; however, habitus makes examination difficult. Extremities: no cyanosis, clubbing, mild BL ankle non-pitting edema, AVF + thrill. Neurological: patient awake, alert intermittently, oriented x 3; cognitive function intact; pupils equally reactive to light and accomodation; cranial nerves II-XII grossly normal, moving all 4 extremities, no focal deficits, strength severely globally decreased secondary to acute presentation. Psychiatric: affect appears fatigued, flat, no acute evidence of depressive or anxiety feelings. - Physical Exam Vital Signs Temp Pulse Resp BP Pulse Ox 99.0 F 92 28 H 166/82 H 99 10/11/17 00:24 10/11/17 00:40 10/11/17 00:40 10/11/17 00:24 10/11/17 00:44 Oxygen Delivery Method Bi-pap Weight: 295 lb 10.238 oz Body Mass Index (BMI) 46.3 Finger Stick Blood Glucose 541 Laboratory Tests Past 24 Hrs 10/11/17 10/11/17 10/11/17 00:40 00:40 01:09 WBC 6.9 RBC 2.87 L Hgb 8.7 L Hct 27.2 L MCV 94.8 H MCH 30.3 MCHC 32.0 RDW 14.7 H RDW Differential 48.8 H Plt Count 173 MPV 10.6 Immature Gran % (Auto) 0.700 Neut % (Auto) 81.9 H Lymph % (Auto) 7.3 L Bertie % (Auto) 8.8 Eos % (Auto) 0.9 Baso % (Auto) 0.4 Absolute Neuts (auto) 5.6 Absolute Lymphs (auto) 0.50 L Total Counted Not Reportable Specimen Type ART Sample Site L Radial pH 7.23 L Bicarbonate Actual 17.9 L POC Total CO2 19 Base Excess -10 L O2 Saturation 97 O2 % 30 ABG pCO2 42.8 ABG pO2 107 H Brennan Test POS Respiration Rate 21 O2 Delivery Device Bi / C PAP EPAP 8 IPAP 16 Blood Gas Notified Whom ED MD Blood Gas Notified Time 115 Sodium 135 L Potassium 7.4 H* Chloride 105 Carbon Dioxide 20.0 L Anion Gap 10 BUN 87 H Creatinine 6.05 H Estim Creat Clear Calc 13.81 Est GFR (MDRD) Af Amer 13 L Est GFR (MDRD) Non-Af 11 L BUN/Creatinine Ratio 14.4 Glucose 568 H* Calcium 7.7 L Troponin I < 0.02 Assessment/Plan The patient is a 47 y/o M w/ PMHx: ESRD on HD TTH following w/ Dr. Gregorio, HTN, HLD , AOCD, Chronic Diastolic CHF, Diabetes mellitus type II w/ Neuropathy, Morbid Obesity, SELMA, Morbid Obesity, notable history of serial non-compliance with medication, office visits and dialysis who presents to the [facility] ED on 10/11/17 with dyspnea, orthopnea, more pronounced on day prior to ED presentation with missed HD session week prior and ? make-up session the following day, but missed session on 10/10/17. (1) Acute Hypoxic Respiratory Failure secondary to Volume Overload, Missed HD w / ? Diastolic CHF History (Most recent ECHO unremarkable) w/ Resulting Metabolic Acidosis: Will admit to the ICU, continue BIPAP, obtain ICU consultation, maintain on telemetry, awaiting Nephrology consultation w/ HD emergent administration, will initiate lasix drip, obtain serial cardiac enzymes , obtain serial EKGs, monitor I/Os, maintain on intake restriction, continue medical therapy w/ asa, statin, BB, defer ACEI given renal disease. Will obtain TSH and magnesium level. 09/09/17 ECHO w/ normal LV size, EF 65%, no evidence diastolic dysfunction, mild TVI. (2) Hyperkalemia: Admission K+ 7.4, Nephrology consulted, planned HD, administer kayexelate now, was in the ED administered insulin-dextrose, Ca- gluconate, albuterol, obtain repeat BMP, supplementation given, repeat level in AM. (3) ESRD: Admission BUN/Cr 87/6.05, HD TTH, missed HD , was administered on Monday per patient, follows w/ Dr. Gregorio outpatient, repeat BMP in AM. Current metabolic acidosis secondary to missed HD/ESRD, expect improvement w/ HD. (4) Hypertension: Continue home regimen including IV lasix drip as noted, metoprolol, Norvasc, hydralazine, lisinopril, isosorbide, PRN hydralazine. (5) Hyperlipidemia: Continue home statin regimen. (6) Diabetes mellitus type II w/ Hyperglycemia: Admission glucose 568, insulin administered in the ED, HgbA1c pending, maintain on accu checks w/ ISS, add levemir now given presentation. (7) Morbid Obesity: Weight loss and lifestyle changes encouraged, nutrition consulted. (8) GERD: PPI. (9) SELMA: Currently on BIPAP. (10) DVT Prophylaxis: SCDs, heparin. (11) CODE status: Discussed CODE status at length including difference between FULL code, DNR-CCA and DNR-CC status. Following discussions about the differences in these status, requested FULL Code status despite co-morbidities and serial non-compliance. Advanced Care Planning Face to Face Time: 18 minutes. Critical Care Time: 65 minutes, time from 1:40-2:45 am, were spent addressing patients Acute Hypoxic Respiratory Failure, Volume overload secondary to missed HD, Metabolic Acidosis, Hyperkalemia, review of all data in collaboration with care team in addition to discussion with family. Code Visit Procedures: [id number] [facility] Care 1st Hr - Billing Code: [id number] and [id number].
--- NOTE | 2017-10-11 02:46 | PCM.HP.STD ---
Problem List (1) TIA (transient ischemic attack) Status: Chronic Qualifiers: Transient cerebral ischemia type: unspecified Qualified Code(s): G45.9 - Transient cerebral ischemic attack, unspecified (2) CHF (congestive heart failure) Status: Chronic Qualifiers: Heart failure type: diastolic Heart failure chronicity: chronic Qualified Code(s): I50.32 - Chronic diastolic (congestive) heart failure (3) Chronic respiratory failure with hypoxia Status: Chronic (4) HTN (hypertension) Status: Chronic Qualifiers: Hypertension type: essential hypertension Qualified Code(s): I10 - Essential (primary) hypertension (5) Hyperlipidemia Status: Chronic Qualifiers: Hyperlipidemia type: unspecified Qualified Code(s): E78.5 - Hyperlipidemia, unspecified (6) Diabetic neuropathy Status: Chronic Qualifiers: Diabetes mellitus type: type 2 Diabetes mellitus complication detail: with other neurological complication Qualified Code(s): E11.49 - Type 2 diabetes mellitus with other diabetic neurological complication (7) Anemia Status: Chronic Qualifiers: Anemia type: unspecified type Qualified Code(s): D64.9 - Anemia, unspecified (8) SELMA (obstructive sleep apnea) Status: Chronic (9) Morbid obesity with BMI of 40.0-44.9, adult Status: Chronic (10) Diabetes mellitus, type II Status: Chronic Qualifiers: Diabetes mellitus ad terminal makeup operator insulin use: without ad terminal makeup operator use Diabetes mellitus complication status: with unspecified complications Qualified Code(s): E11.8 - Type 2 diabetes mellitus with unspecified complications (11) Renal failure Status: Chronic Qualifiers: Renal failure chronicity: chronic Chronic kidney disease stage: on chronic dialysis Qualified Code(s): N18.6 - End stage renal disease; Z99.2 - Dependence on renal dialysis (12) Noncompliance Status: Chronic History of Present Illness Date of Admission: 10/11/17 Chief Complaint: Malaise, Dyspnea, missed HD The patient is a 47 y/o M w/ PMHx: ESRD on HD TTH following w/ Dr. Gregorio, HTN, HLD, AOCD, Chronic Diastolic CHF, Diabetes mellitus type II w/ Neuropathy, Morbid Obesity, SELMA, Morbid Obesity, notable history of serial non-compliance with medication, office visits and dialysis who presents to the [facility] ED on 10/11/17 with dyspnea, orthopnea, more pronounced on day prior to ED presentation with noted session on both and Monday, but missed session on Monday and again missed session on Monday. In the ED patient notes improvement following BIPAP initiation but still ongoing dyspnea. In the ED work-up included T 99, HR 92, BP 166/82, RR 28, 99% on BIPAP, CBC w/ WBC 6.9, Hgb 8.7, Plts 173 without marked shift, ABG w/ pH 7.23, Bicarb 17.9, BE -10, pO2 107, BMP w/ Na 135, K 7.4, CO2 20, BUN/Cr 87/6.05, glucose 568, Ca 7.7, trop <0.02, CXR with cardiomegaly and congestion. In the ED patient administered albuterol, Ca-gluconate, dextrose, insulin. ED contacted Dr. Bowen ICU and also Dr. Gregorio Nephrology to assist in coordination of HD. Past Medical History Past Medical History (Chronic Problems): Chronic Problems (Last Updated 09/25/17 @ 11:51 by Claudette Cheek) TIA (transient ischemic attack) (Chronic) CHF (congestive heart failure) (Chronic) Chronic respiratory failure with hypoxia (Chronic) HTN (hypertension) (Chronic) Chronic renal disease, stage IV (Chronic) Acute on chronic diastolic CHF (congestive heart failure) (Chronic) Hyperlipidemia (Chronic) Diabetic neuropathy (Chronic) Anemia (Chronic) SELMA (obstructive sleep apnea) (Chronic) Morbid obesity with BMI of 40.0-44.9, adult (Chronic) Diabetes mellitus, type II (Chronic) Renal failure (Chronic) Noncompliance (Chronic) Allergies venom-honey bee [bee venom (honey bee)] Allergy (Verified 09/25/17 11:28) Swelling sulfamethoxazole [From Bactrim] Adverse Reaction (Verified 09/25/17 11:28) Upset Stomach trimethoprim [From Bactrim] Adverse Reaction (Verified 09/25/17 11:28) Upset Stomach Home Medications: Ambulatory Orders Medication Instructions Recorded Amlodipine Besylate [Norvasc] 10 mg PO DAILY 10/11/17 Aspirin [Aspirin, Baby] 81 mg PO DAILY@0800 10/11/17 Atorvastatin Calcium [Lipitor] 20 mg PO QHS 10/11/17 Furosemide [Lasix] 40 mg PO BIDLX 10/11/17 Gabapentin [Neurontin] 100 mg PO TIDCM 10/11/17 Isosorbide Mononitrate [Imdur] 30 mg PO DAILY 10/11/17 Lisinopril [Zestril] 10 mg PO DAILY 10/11/17 Metoprolol Tartrate [Lopressor 50 mg PO BID 10/11/17 (Beta Emmanuel)] Omeprazole 40 mg PO DAILY 10/11/17 Pyridoxine HCl [Vitamin B-6] 100 mg PO DAILY 10/11/17 Sevelamer HCl [Renagel] 800 mg PO DAILY 10/11/17 Vits A,C,E/Lutein/Minerals 1 each PO DAILY 10/11/17 [Ocuvite with Lutein Tablet] hydrALAZINE [Apresoline] 10 mg PO TID 10/11/17 Surgical History: tonsillectomy, - - AV fistula in right arm. Psychiatric History: No pertinent psych hx Lives: Spouse/ Significant Other Smoking Status: Never smoker Tobacco Use: Non-smoker Alcohol: None Drugs: None - *Family History Maternal History Items: Diabetes, Heart Disease, Hypertension, Renal Disease Paternal History Items: Cancer - liver, Diabetes, Heart Disease Review of Systems Constitutional: Reports: Malaise, Weakness, Fatigue. Denies: Chills, Fever, Weight Change HEENT: Denies: Head Aches, Sinus Congestion, Sinus Drainage Cardiovascular: Reports: Edema - Mild ankle edema.. Denies: Chest Pain, Palpitations Respiratory: Reports: Shortness of Breath, Shortness of breath at rest, Shortness of breath upon exertion. Denies: Cough, Sputum production Gastrointestinal: Denies: Abdominal Pain, Nausea, Vomiting Genitourinary: Denies: Dysuria Musculoskeletal: Denies: Joint Pain, Joint Tenderness Skin: Denies: Rash, Wounds Neurological: Denies: Numbness, Tingling, Focal weakness Psychiatric: Reports: Anxiety, Depression. Denies: Homicidal Ideations, Suicidal Ideations Hematologic/ Lymphatic: Reports: Anemia. Denies: Easy Bruising, Easy Bleeding VTE Information - Inpt Only VTE Present on Admission: No VTE Mechan Device Prophylaxis: SCD's VTE Pharm Prophylaxis ordered?: Yes Subjective: Seated upright in the ED bed, fatigued appearing, BIPAP in place, accessory muscle usage. Objective: Physical Examination: General: awake, intermittently alert, oriented x 3 and cooperative, seated upright in the ED bed, BIPAP in place, fatigued appearance, increased RR/accessory muscle usage. Skin: normal color, turgor, no icterus, cyanosis. HEENT: AT/NC, EOMI, PERRLA, dry MM, BIPAP in place, no carotid bruits or JVD noted; however, thickened neck and habitus make examination difficult. Lungs: Severely diminished BS BL, > bases, BIPAP in place, increased RR, accessory muscle usage, no marked rales/crackles noted. Heart: Regular rate and rhythm; no gallop, rub audible. Abdomen: soft, morbidly obese, NTTP, ND, normal BS, no HSM; however, habitus makes examination difficult. Extremities: no cyanosis, clubbing, mild BL ankle non-pitting edema, AVF +thrill. Neurological: patient awake, alert intermittently, oriented x 3; cognitive function intact; pupils equally reactive to light and accomodation; cranial nerves II-XII grossly normal, moving all 4 extremities, no focal deficits, strength severely globally decreased secondary to acute presentation. Psychiatric: affect appears fatigued, flat, no acute evidence of depressive or anxiety feelings. - Physical Exam Vital Signs Temp Pulse Resp BP Pulse Ox 99.0 F 92 28 H 166/82 H 99 10/11/17 00:24 10/11/17 00:40 10/11/17 00:40 10/11/17 00:24 10/11/17 00:44 Oxygen Delivery Method Bi-pap Weight: 295 lb 10.238 oz Body Mass Index (BMI) 46.3 Finger Stick Blood Glucose 541 Laboratory Tests Past 24 Hrs 10/11/17 10/11/17 10/11/17 00:40 00:40 01:09 WBC 6.9 RBC 2.87 L Hgb 8.7 L Hct 27.2 L MCV 94.8 H MCH 30.3 MCHC 32.0 RDW 14.7 H RDW Differential 48.8 H Plt Count 173 MPV 10.6 Immature Gran % (Auto) 0.700 Neut % (Auto) 81.9 H Lymph % (Auto) 7.3 L Winston % (Auto) 8.8 Eos % (Auto) 0.9 Baso % (Auto) 0.4 Absolute Neuts (auto) 5.6 Absolute Lymphs (auto) 0.50 L Total Counted Not Reportable Specimen Type ART Sample Site L Radial pH 7.23 L Bicarbonate Actual 17.9 L POC Total CO2 19 Base Excess -10 L O2 Saturation 97 O2 % 30 ABG pCO2 42.8 ABG pO2 107 H Brennan Test POS Respiration Rate 21 O2 Delivery Device Bi / C PAP EPAP 8 IPAP 16 Blood Gas Notified Whom ED MD Blood Gas Notified Time 115 Sodium 135 L Potassium 7.4 H* Chloride 105 Carbon Dioxide 20.0 L Anion Gap 10 BUN 87 H Creatinine 6.05 H Estim Creat Clear Calc 13.81 Est GFR (MDRD) Af Amer 13 L Est GFR (MDRD) Non-Af 11 L BUN/Creatinine Ratio 14.4 Glucose 568 H* Calcium 7.7 L Troponin I < 0.02 Assessment/Plan The patient is a 47 y/o M w/ PMHx: ESRD on HD TTH following w/ Dr. Gregorio, HTN, HLD, AOCD, Chronic Diastolic CHF, Diabetes mellitus type II w/ Neuropathy, Morbid Obesity, SELMA, Morbid Obesity, notable history of serial non-compliance with medication, office visits and dialysis who presents to the [facility] ED on 10/11/17 with dyspnea, orthopnea, more pronounced on day prior to ED presentation with missed HD session week prior and ? make-up session the following day, but missed session on 10/10/17. (1) Acute Hypoxic Respiratory Failure secondary to Volume Overload, Missed HD w/ ? Diastolic CHF History (Most recent ECHO unremarkable) w/ Resulting Metabolic Acidosis: Will admit to the ICU, continue BIPAP, obtain ICU consultation, maintain on telemetry, awaiting Nephrology consultation w/ HD emergent administration, will initiate lasix drip, obtain serial cardiac enzymes, obtain serial EKGs, monitor I/Os, maintain on intake restriction, continue medical therapy w/ asa, statin, BB, defer ACEI given renal disease. Will obtain TSH and magnesium level. 09/09/17 ECHO w/ normal LV size, EF 65%, no evidence diastolic dysfunction, mild TVI. (2) Hyperkalemia: Admission K+ 7.4, Nephrology consulted, planned HD, administer kayexelate now, was in the ED administered insulin-dextrose, Ca-gluconate, albuterol, obtain repeat BMP, supplementation given, repeat level in AM. (3) ESRD: Admission BUN/Cr 87/6.05, HD TTH, missed HD , was administered on Monday per patient, follows w/ Dr. Gregorio outpatient, repeat BMP in AM. Current metabolic acidosis secondary to missed HD/ESRD, expect improvement w/ HD. (4) Hypertension: Continue home regimen including IV lasix drip as noted, metoprolol, Norvasc, hydralazine, lisinopril, isosorbide, PRN hydralazine. (5) Hyperlipidemia: Continue home statin regimen. (6) Diabetes mellitus type II w/ Hyperglycemia: Admission glucose 568, insulin administered in the ED, HgbA1c pending, maintain on accu checks w/ ISS, add levemir now given presentation. (7) Morbid Obesity: Weight loss and lifestyle changes encouraged, nutrition consulted. (8) GERD: PPI. (9) SELMA: Currently on BIPAP. (10) DVT Prophylaxis: SCDs, heparin. (11) CODE status: Discussed CODE status at length including difference between FULL code, DNR-CCA and DNR-CC status. Following discussions about the differences in these status, requested FULL Code status despite co-morbidities and serial non-compliance. Advanced Care Planning Face to Face Time: 18 minutes. Critical Care Time: 65 minutes, time from 1:40-2:45 am, were spent addressing patients Acute Hypoxic Respiratory Failure, Volume overload secondary to missed HD, Metabolic Acidosis, Hyperkalemia, review of all data in collaboration with care team in addition to discussion with family. Code Visit Procedures: [id number] [facility] Care 1st Hr - Billing Code: [id number] and [id number].
[2017-10-11 03:30] LABS: Thyroid Stim Hormone (TSH) 1.38 uIU/mL (0.358-3.74)
[2017-10-11 04:22] LABS: Anion Gap 10 (5-15); BUN 82 mg/dL (7-18); BUN/Creat Ratio 13.6 RATIO (10-20); Calcium,Total 7.6 mg/dL (8.5-10.1); Chloride 103 mmol/L (98-107); Creatinine, Serum 6.02 mg/dL (0.70-1.30); EST Glomerular Filtration Rate 11 mL/min (>60); Est Glom Filt Rate - Afr Amer 13 mL/min (>60); Estimated Creatinine Clearance 13.88 ml/min; Glucose 599 mg/dL (74-106); Potassium 7.4 mmol/L (3.5-5.1); Sodium Level 135 mmol/L (136-145)
[2017-10-11 04:51] LABS: M R Staph aureus DNA By PCR Negative (Negative); Probe Check PASS; Specimen Processing Control PASS
--- NOTE | 2017-10-11 05:55 | EKG12_ITS ---
Test Reason : AM EKG Blood Pressure : / mmHG Vent. Rate : 091 BPM Atrial Rate : 091 BPM P-R Int : 126 ms QRS Dur : 078 ms QT Int : 354 ms P-R-T Axes : 017 028 023 degrees QTc Int : 435 ms Normal sinus rhythm Normal ECG When compared with ECG of 11-SEP-2017 05:16, No significant change was found Confirmed by HOUSTON LOMELI, CANDIE ([id number]), digital editor DEREK KEARNS ([id number] on 10/13/2017 12:50:18 PM Referred By: YULY Confirmed By:CANDIE CONRAD MD
--- NOTE | 2017-10-11 06:04 | DIALYSIS ---
Hemodialysis x 2 hrs Patient tolerated tx well. UF -2500mL removed. Overgaard pulled stasis of sites dressings applied. Pt stable and alert. Report to Reagan, MASTER ESTHETICIAN
[2017-10-11] MEDS: 0.9% NaCl Peripheral Flush Adult/Peds IV ×2 (06:18→20:28)
[2017-10-11] MEDS: hydrALAZINE 10 MG Tablet PO ×3 (06:20→22:48)
[2017-10-11 06:31] LABS: Bedside Glucose 444 mg/dL (70-110)
[2017-10-11 06:40] LABS: Hemoglobin A1c 12.2 % (4.2-6.3)
[2017-10-11 06:51] LABS: Hematocrit 25.6 % (40-54); Hemoglobin 8.3 g/dl (13.0-16.5); Mean Corp Hgb Conc 32.4 g/gl (32-36); Mean Corpuscular Hgb 30.5 pg (27.0-32.0); Mean Corpuscular Volume 94.1 fL (80-94); Mean Platelet Vol. 10.1 fl (6.2-12.0); Platelet Count 185 K/mm3 (150-450); RBC Distribution Width CV 14.6 % (11.6-14.6); RBC Distribution Width SD 47.8 fl (35.1-43.9); Red Blood Count 2.72 M/mm3 (4.6-6.2); Scan Indicated on CBC? Y/N NO; White Blood Count 7.5 K/mm3 (4.4-11.0)
[2017-10-11 07:03] LABS: Anion Gap 10 (5-15); BUN 56 mg/dL (7-18); BUN/Creat Ratio 13.3 RATIO (10-20); Calcium,Total 7.7 mg/dL (8.5-10.1); Chloride 103 mmol/L (98-107); Creatinine, Serum 4.22 mg/dL (0.70-1.30); EST Glomerular Filtration Rate 16 mL/min (>60); Est Glom Filt Rate - Afr Amer 19 mL/min (>60); Estimated Creatinine Clearance 19.11 ml/min; Glucose 402 mg/dL (74-106); Sodium Level 138 mmol/L (136-145)
--- NOTE | 2017-10-11 08:13 | PCM.CONS.R ---
Consultation - Renal 10/11/17 PCP/ Referring MD: Requesting physician: Carmencita Dasilva Primary care physician: Augie Washburn Reason for Consultation:: ESRD HD TTS, hyperkalemia, hypoxia - History of Present Illness History of Present Illness: The patient is a 47 y/o obese, noncompliant M presents with increased shortness of breath, swelling and hyperkalemia with a potassium level 7.4. He is admitted to ICU on BIPAP. He has history of chronic noncompliance with his hemodialysis, excessive fluid gain 8-12kg interdialytic wt gain with noncompliance with diet, hyperglycemia. He is 16kg over his target weight today. He was urgently dialyzed early this morning with 2.5L fluid removed. He did not attend his dialysis treatment on Monday states due to low sugars in the 's. He did not attend dialysis Monday due to shortness of breath, instead went to ER. His blood sugars were elevated in 500 range. Hemoglobin A1c was 12 on admission. He was oxygenating well on nasal cannula this morning but back on BIPAP due to complaints of shortness of breath. He felt like he is developing a chest cold. Denied CP but had a cough without fever or chills, no leukocytosis. Troponin negative x1. - Allergies Allergies: Allergies venom-honey bee [bee venom (honey bee)] Allergy (Verified 09/25/17 11:28) Swelling sulfamethoxazole [From Bactrim] Adverse Reaction (Verified 09/25/17 11:28) Upset Stomach trimethoprim [From Bactrim] Adverse Reaction (Verified 09/25/17 11:28) Upset Stomach - Current Medications Current Medications: Current Medications Acetaminophen (Tylenol) 650 mg PO Q6H PRN PRN PRN Reason: Mild Pain (scale 0-3)/T>100.7 Al Hydroxide/Mg Hydroxide (Mylanta Ii) 30 ml PO Q6H PRN PRN PRN Reason: Gastric burning Albuterol Sulfate (Ventolin Aerosols) 2.5 mg INHALATION Q2H PRN PRN PRN Reason: dyspnea, wheezing Amlodipine Besylate (Norvasc) 10 mg PO DAILY RENE Aspirin (Aspirin, Baby) 81 mg PO DAILY@0800 [facility] Atorvastatin Calcium (Lipitor) 20 mg PO QHS RENE Dextrose (D50w Syringe) 0 gm IV X1 PRN; Protocol PRN Reason: Hypoglycemia Gabapentin (Neurontin) 100 mg PO TIDCM [facility] Glucagon () 1 mg IM .X1 PRN PRN Reason: Hypoglycemia Heparin Sodium (Porcine) (Heparin Na) 5,000 unit SC BID [facility] Hydralazine HCl (Apresoline) 10 mg PO TID [facility] Last Admin: 10/11/17 06:20 Dose: 10 mg Hydralazine HCl (Apresoline Iv) 10 mg IV Q4H PRN PRN PRN Reason: SBP > 160 Sodium Chloride () 250 mls @ 15 mls/hr IV .[id number] PRN PRN Reason: SALINE FLUSH Furosemide 500 mg/ (Miscellaneous Information) 50 mls @ 1 mls/hr CONT INF .Q50H [facility] PRN Reason: 10 MG/HR Last Admin: 10/11/17 03:35 Dose: Not Given Insulin Aspart (Novolog Flexpen ([facility])) 0 units SC ACHS [facility] PRN Reason: Protocol Last Admin: 10/11/17 06:27 Dose: 11 units Insulin Detemir (Levemir ([facility])) 10 units SC BID [facility] Last Admin: 10/11/17 03:44 Dose: 10 units Isosorbide Mononitrate (Imdur) 30 mg PO DAILY [facility] Lisinopril (Zestril) 10 mg PO DAILY [facility] Magnesium Hydroxide (Milk Of Magnesia) 30 ml PO DAILY PRN PRN PRN Reason: Constipation Metoprolol Tartrate (Lopressor (Beta Emmanuel)) 50 mg PO BID [facility] Morphine Sulfate () 2 - 4 mg IV Q3H PRN PRN PRN Reason: Severe Pain (pain scale 6-10) Morphine Sulfate () 1 - 2 mg IV Q4H PRN PRN PRN Reason: Moderate Pain (pain scale 4-5) Morphine Sulfate () 2 - 4 mg IV Q3H PRN PRN PRN Reason: Severe Pain (pain scale 6-10) Nitroglycerin (Nitrostat) 0.4 mg SUBLINGUAL Q5M PRN PRN Reason: Angina pain Ondansetron HCl (Zofran) 4 mg IV Q8H PRN PRN PRN Reason: NAUSEA Oxycodone HCl (Oxyir) 5 mg PO Q4H PRN PRN PRN Reason: Moderate Pain (pain scale 4-5) Pantoprazole Sodium (Protonix) 40 mg PO DAILY [facility] Promethazine HCl (Phenergan Iv) 12.5 mg IV Q6H PRN PRN PRN Reason: NAUSEA/VOMITING Pyridoxine HCl (Vitamin B-6) 100 mg PO DAILY [facility] Sevelamer Carbonate (Renvela) 800 mg PO DAILY [facility] Sodium Chloride () 5 - 30 ml IV UD PRN PRN Reason: SALINE FLUSH Last Admin: 10/11/17 06:18 Dose: 10 ml - Past Medical History Past Medical History (Chronic Problems): Chronic Problems (Last Updated 09/25/17 @ 11:51 by Claudette Cheek) TIA (transient ischemic attack) (Chronic) CHF (congestive heart failure) (Chronic) Chronic respiratory failure with hypoxia (Chronic) HTN (hypertension) (Chronic) Chronic renal disease, stage IV (Chronic) Acute on chronic diastolic CHF (congestive heart failure) (Chronic) Hyperlipidemia (Chronic) Diabetic neuropathy (Chronic) Anemia (Chronic) SELMA (obstructive sleep apnea) (Chronic) Morbid obesity with BMI of 40.0-44.9, adult (Chronic) Diabetes mellitus, type II (Chronic) Renal failure (Chronic) Noncompliance (Chronic) - Past Surgical History Surgical History: tonsillectomy, - - AV fistula in right arm. - Social History Smoking Status: Never smoker Alcohol: None Drugs: None - Family History Maternal Family History: Family History (Last Reviewed 09/25/17 @ 11:29 by Claudette Cheek) Mother Hypertension Heart disease Diabetes Father Hypertension Heart disease Brother Heart disease History Items: Diabetes, Heart Disease, Hypertension, Renal Disease Paternal Family History: Family History (Last Reviewed 09/25/17 @ 11:29 by Claudette Cheek) Mother Hypertension Heart disease Diabetes Father Hypertension Heart disease Brother Heart disease History Items: Cancer - liver, Diabetes, Heart Disease Review of Systems Constitutional: Reports: Weakness. Denies: Anorexia, Chills, Fever Eyes: Denies: Blurred vision Cardiovascular: Reports: Edema. Denies: Chest Pain Respiratory: Reports: Shortness of breath at rest. Denies: Cough Gastrointestinal: Denies: Abdominal Pain, Constipation, Diarrhea, Nausea, Vomiting Skin: Denies: Rash - Physical Exam General: Alert, Oriented x3, No apparent distress, - - on bipap, morbidly obese, drowsy Lungs: Clear to auscultation, Diminished Cardiovascular: Regular rate Abdomen: Bowel Sounds Present, Soft, Distended, Obese Extremities: Edema Skin: No rashes Musculoskeletal: No Muscle Wasting Neurological: - - twitching Psych/Mental Status: - - somnolent Vital Signs Temp Pulse Resp BP Pulse Ox 98.4 F 89 16 145/81 H 98 10/11/17 06:00 10/11/17 06:20 10/11/17 06:00 10/11/17 06:20 10/11/17 07:29 Oxygen Flow Rate (L/min) 3 Oxygen Delivery Method Nasal Cannula Weight: 127.8 kg Body Mass Index (BMI) 46.3 Intake and Output for Last 24 Hours 10/09/17 10/10/17 10/11/17 23:59 23:59 23:59 Intake Total 200 / 200 Output Total 0 / 0 Balance 200 / 200 Laboratory Tests Past 24 Hrs 10/11/17 10/11/17 10/11/17 03:15 03:15 06:15 WBC 7.5 RBC 2.72 L Hgb 8.3 L Hct 25.6 L MCV 94.1 H MCH 30.5 MCHC 32.4 RDW 14.6 RDW Differential 47.8 H Plt Count 185 MPV 10.1 Sodium 135 L Potassium 7.4 H* Chloride 103 Carbon Dioxide 22.0 Anion Gap 10 BUN 82 H Creatinine 6.02 H Estim Creat Clear Calc 13.88 Est GFR (MDRD) Af Amer 13 L Est GFR (MDRD) Non-Af 11 L BUN/Creatinine Ratio 13.6 Glucose 599 H* Hemoglobin A1c 12.2 H Calcium 7.6 L Troponin I < 0.02 MRSA (PCR) 10/11/17 10/11/17 06:15 Unknown WBC RBC Hgb Hct MCV MCH MCHC RDW RDW Differential Plt Count MPV Sodium 138 Potassium 5.0 Chloride 103 Carbon Dioxide 25.0 Anion Gap 10 BUN 56 H Creatinine 4.22 H Estim Creat Clear Calc 19.11 Est GFR (MDRD) Af Amer 19 L Est GFR (MDRD) Non-Af 16 L BUN/Creatinine Ratio 13.3 Glucose 402 H Hemoglobin A1c Calcium 7.7 L Troponin I MRSA (PCR) Negative POC Glucose 10/11/17 06:25 POC Glucose 444 H Clinical Impression(s) from Imaging Studies Chest X-Ray 10/11/17 00:43 IMPRESSION: Cardiomegaly with mild CHF. Electronically Signed: Franklin Crews MD at 1:28 EDT , Service support , Assessment/Plan 1. ESRD HD this morning emergently for 2hrs for hyperkalemia K 7.4, 2.5L net fluid removal. Remains short of breath, missed dialysis past Sat and Tues (yesterday). Will arrange for another dialysis treatment today. 2. Acute hyperkalemia resolved with dialysis 3. acute diastolic CHF arrange for more fluid removal later today. 4. Anemia TERESA with dialysis. 5. HTN stable 6. DM2 A1C 12, hyperglycemic. 7. Hx noncompliance with medication, diet, fluids, dialysis. 16kg over target wt DW primary service Addendum. Seen on dialysis at 12:30, off BIPAP. States breathing better. additional 4.5L fluid removal set. Blood cx x2 sets sent on dialysis for fever.
--- NOTE | 2017-10-11 08:24 | CON.PCM_ITS ---
Consultation - Renal 10/11/17 PCP/ Referring MD: Requesting physician: Carmencita Dasilva Primary care physician: Augie Washburn Reason for Consultation:: ESRD HD TTS, hyperkalemia, hypoxia - History of Present Illness History of Present Illness: The patient is a 47 y/o obese, noncompliant M presents with increased shortness of breath, swelling and hyperkalemia with a potassium level 7.4. He is admitted to ICU on BIPAP. He has history of chronic noncompliance with his hemodialysis, excessive fluid gain 8-12kg interdialytic wt gain with noncompliance with diet, hyperglycemia. He is 16kg over his target weight today. He was urgently dialyzed early this morning with 2.5L fluid removed. He did not attend his dialysis treatment on Monday states due to low sugars in the 's. He did not attend dialysis Monday due to shortness of breath, instead went to ER. His blood sugars were elevated in 500 range. Hemoglobin A1c was 12 on admission. He was oxygenating well on nasal cannula this morning but back on BIPAP due to complaints of shortness of breath. He felt like he is developing a chest cold. Denied CP but had a cough without fever or chills, no leukocytosis. Troponin negative x1. - Allergies Allergies: Allergies venom-honey bee [bee venom (honey bee)] Allergy (Verified 09/25/17 11:28) Swelling sulfamethoxazole [From Bactrim] Adverse Reaction (Verified 09/25/17 11:28) Upset Stomach trimethoprim [From Bactrim] Adverse Reaction (Verified 09/25/17 11:28) Upset Stomach - Current Medications Current Medications: Current Medications Acetaminophen (Tylenol) 650 mg PO Q6H PRN PRN PRN Reason: Mild Pain (scale 0-3)/T>100.7 Al Hydroxide/Mg Hydroxide (Mylanta Ii) 30 ml PO Q6H PRN PRN PRN Reason: Gastric burning Albuterol Sulfate (Ventolin Aerosols) 2.5 mg INHALATION Q2H PRN PRN PRN Reason: dyspnea, wheezing Amlodipine Besylate (Norvasc) 10 mg PO DAILY [facility] Aspirin (Aspirin, Baby) 81 mg PO DAILY@0800 [facility] Atorvastatin Calcium (Lipitor) 20 mg PO QHS [facility] Dextrose (D50w Syringe) 0 gm IV X1 PRN; Protocol PRN Reason: Hypoglycemia Gabapentin (Neurontin) 100 mg PO TIDCM [facility] Glucagon () 1 mg IM .X1 PRN PRN Reason: Hypoglycemia Heparin Sodium (Porcine) (Heparin Na) 5,000 unit SC BID [facility] Hydralazine HCl (Apresoline) 10 mg PO TID [facility] Last Admin: 10/11/17 06:20 Dose: 10 mg Hydralazine HCl (Apresoline Iv) 10 mg IV Q4H PRN PRN PRN Reason: SBP > 160 Sodium Chloride () 250 mls @ 15 mls/hr IV .[id number] PRN PRN Reason: SALINE FLUSH Furosemide 500 mg/ (Miscellaneous Information) 50 mls @ 1 mls/hr CONT INF .Q50H [facility] PRN Reason: 10 MG/HR Last Admin: 10/11/17 03:35 Dose: Not Given Insulin Aspart (Novolog Flexpen ([facility])) 0 units SC ACHS [facility] PRN Reason: Protocol Last Admin: 10/11/17 06:27 Dose: 11 units Insulin Detemir (Levemir ([facility])) 10 units SC BID [facility] Last Admin: 10/11/17 03:44 Dose: 10 units Isosorbide Mononitrate (Imdur) 30 mg PO DAILY [facility] Lisinopril (Zestril) 10 mg PO DAILY [facility] Magnesium Hydroxide (Milk Of Magnesia) 30 ml PO DAILY PRN PRN PRN Reason: Constipation Metoprolol Tartrate (Lopressor (Beta Emmanuel)) 50 mg PO BID [facility] Morphine Sulfate () 2 - 4 mg IV Q3H PRN PRN PRN Reason: Severe Pain (pain scale 6-10) Morphine Sulfate () 1 - 2 mg IV Q4H PRN PRN PRN Reason: Moderate Pain (pain scale 4-5) Morphine Sulfate () 2 - 4 mg IV Q3H PRN PRN PRN Reason: Severe Pain (pain scale 6-10) Nitroglycerin (Nitrostat) 0.4 mg SUBLINGUAL Q5M PRN PRN Reason: Angina pain Ondansetron HCl (Zofran) 4 mg IV Q8H PRN PRN PRN Reason: NAUSEA Oxycodone HCl (Oxyir) 5 mg PO Q4H PRN PRN PRN Reason: Moderate Pain (pain scale 4-5) Pantoprazole Sodium (Protonix) 40 mg PO DAILY [facility] Promethazine HCl (Phenergan Iv) 12.5 mg IV Q6H PRN PRN PRN Reason: NAUSEA/VOMITING Pyridoxine HCl (Vitamin B-6) 100 mg PO DAILY [facility] Sevelamer Carbonate (Renvela) 800 mg PO DAILY [facility] Sodium Chloride () 5 - 30 ml IV UD PRN PRN Reason: SALINE FLUSH Last Admin: 10/11/17 06:18 Dose: 10 ml - Past Medical History Past Medical History (Chronic Problems): Chronic Problems (Last Updated 09/25/17 @ 11:51 by Claudette Cheek) TIA (transient ischemic attack) (Chronic) CHF (congestive heart failure) (Chronic) Chronic respiratory failure with hypoxia (Chronic) HTN (hypertension) (Chronic) Chronic renal disease, stage IV (Chronic) Acute on chronic diastolic CHF (congestive heart failure) (Chronic) Hyperlipidemia (Chronic) Diabetic neuropathy (Chronic) Anemia (Chronic) SELMA (obstructive sleep apnea) (Chronic) Morbid obesity with BMI of 40.0-44.9, adult (Chronic) Diabetes mellitus, type II (Chronic) Renal failure (Chronic) Noncompliance (Chronic) - Past Surgical History Surgical History: tonsillectomy, - - AV fistula in right arm. - Social History Smoking Status: Never smoker Alcohol: None Drugs: None - Family History Maternal Family History: Family History (Last Reviewed 09/25/17 @ 11:29 by Claudette Cheek) Mother Hypertension Heart disease Diabetes Father Hypertension Heart disease Brother Heart disease History Items: Diabetes, Heart Disease, Hypertension, Renal Disease Paternal Family History: Family History (Last Reviewed 09/25/17 @ 11:29 by Claudette Cheek) Mother Hypertension Heart disease Diabetes Father Hypertension Heart disease Brother Heart disease History Items: Cancer - liver, Diabetes, Heart Disease Review of Systems Constitutional: Reports: Weakness. Denies: Anorexia, Chills, Fever Eyes: Denies: Blurred vision Cardiovascular: Reports: Edema. Denies: Chest Pain Respiratory: Reports: Shortness of breath at rest. Denies: Cough Gastrointestinal: Denies: Abdominal Pain, Constipation, Diarrhea, Nausea, Vomiting Skin: Denies: Rash - Physical Exam General: Alert, Oriented x3, No apparent distress, - - on bipap, morbidly obese , drowsy Lungs: Clear to auscultation, Diminished Cardiovascular: Regular rate Abdomen: Bowel Sounds Present, Soft, Distended, Obese Extremities: Edema Skin: No rashes Musculoskeletal: No Muscle Wasting Neurological: - - twitching Psych/Mental Status: - - somnolent Vital Signs Temp Pulse Resp BP Pulse Ox 98.4 F 89 16 145/81 H 98 10/11/17 06:00 10/11/17 06:20 10/11/17 06:00 10/11/17 06:20 10/11/17 07:29 Oxygen Flow Rate (L/min) 3 Oxygen Delivery Method Nasal Cannula Weight: 127.8 kg Body Mass Index (BMI) 46.3 Intake and Output for Last 24 Hours 10/09/17 10/10/17 10/11/17 23:59 23:59 23:59 Intake Total 200 / 200 Output Total 0 / 0 Balance 200 / 200 Laboratory Tests Past 24 Hrs 10/11/17 10/11/17 10/11/17 03:15 03:15 06:15 WBC 7.5 RBC 2.72 L Hgb 8.3 L Hct 25.6 L MCV 94.1 H MCH 30.5 MCHC 32.4 RDW 14.6 RDW Differential 47.8 H Plt Count 185 MPV 10.1 Sodium 135 L Potassium 7.4 H* Chloride 103 Carbon Dioxide 22.0 Anion Gap 10 BUN 82 H Creatinine 6.02 H Estim Creat Clear Calc 13.88 Est GFR (MDRD) Af Amer 13 L Est GFR (MDRD) Non-Af 11 L BUN/Creatinine Ratio 13.6 Glucose 599 H* Hemoglobin A1c 12.2 H Calcium 7.6 L Troponin I < 0.02 MRSA (PCR) 10/11/17 10/11/17 06:15 Unknown WBC RBC Hgb Hct MCV MCH MCHC RDW RDW Differential Plt Count MPV Sodium 138 Potassium 5.0 Chloride 103 Carbon Dioxide 25.0 Anion Gap 10 BUN 56 H Creatinine 4.22 H Estim Creat Clear Calc 19.11 Est GFR (MDRD) Af Amer 19 L Est GFR (MDRD) Non-Af 16 L BUN/Creatinine Ratio 13.3 Glucose 402 H Hemoglobin A1c Calcium 7.7 L Troponin I MRSA (PCR) Negative POC Glucose 10/11/17 06:25 POC Glucose 444 H Clinical Impression(s) from Imaging Studies Chest X-Ray 10/11/17 00:43 IMPRESSION: Cardiomegaly with mild CHF. Electronically Signed: Franklin Crews MD at 1:28 EDT , Service support , Assessment/Plan 1. ESRD HD this morning emergently for 2hrs for hyperkalemia K 7.4, 2.5L net fluid removal. Remains short of breath, missed dialysis past Sat and Tues ( yesterday). Will arrange for another dialysis treatment today. 2. Acute hyperkalemia resolved with dialysis 3. acute diastolic CHF arrange for more fluid removal later today. 4. Anemia TERESA with dialysis. 5. HTN stable 6. DM2 A1C 12, hyperglycemic. 7. Hx noncompliance with medication, diet, fluids, dialysis. 16kg over target wt DW primary service Addendum. Seen on dialysis at 12:30, off BIPAP. States breathing better. additional 4.5L fluid removal set. Blood cx x2 sets sent on dialysis for fever.
--- NOTE | 2017-10-11 08:45 | PCM.HOSP.N ---
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 H&P, vitals, labs, chest x-ray reviewed. In summary, patient was admitted for progressive worsening of shortness of breath after he missed dialysis since Monday with generalized edema, severe hyperkalemia and weight gain about 8-10 kg since his last dialysis. The patient was dialyzed in the morning today on an urgent basis and about 2.7 L of fluid removed as per educational program assistant Dr. Gregorio. Discussed with the educational program assistant, Dr. Gregorio and she is planning for 1 more session of dialysis today. Potassium after dialysis is corrected to 5.0. Patient is still short of breath on BiPAP. He denies history of smoking/COPD/emphysema and ABG does not show CO2 retention. He wears BiPAP at night most probably due to obstructive sleep apnea. Laboratory Results 10/11/17 00:40: WBC 6.9, RBC 2.87 L, Hgb 8.7 L, Hct 27.2 L, MCV 94.8 H, MCH 30.3, MCHC 32.0, RDW 14.7 H, RDW Differential 48.8 H, Plt Count 173, MPV 10.6, Immature Gran % (Auto) 0.700, Neut % (Auto) 81.9 H, Lymph % (Auto) 7.3 L, [place] % (Auto) 8.8, Eos % (Auto) 0.9, Baso % (Auto) 0.4, Absolute Neuts (auto) 5.6, Absolute Lymphs (auto) 0.50 L, Total Counted Not Reportable 10/11/17 00:40: Sodium 135 L, Potassium 7.4 H*, Chloride 105, Carbon Dioxide 20.0 L, Anion Gap 10, BUN 87 H, Creatinine 6.05 H, Estim Creat Clear Calc 13.81, Est GFR (MDRD) Af Amer 13 L, Est GFR (MDRD) Non-Af 11 L, BUN/Creatinine Ratio 14.4, Glucose 568 H*, Calcium 7.7 L, Troponin I < 0.02 10/11/17 00:40: Acetone Level NEGATIVE 10/11/17 00:40: Magnesium 2.0, TSH 1.38 10/11/17 01:09: Specimen Type ART, Sample Site L Radial, pH 7.23 L, Bicarbonate Actual 17.9 L, POC Total CO2 19, Base Excess -10 L, O2 Saturation 97, O2 % 30, ABG pCO2 42.8, ABG pO2 107 H, Brennan Test POS, Respiration Rate 21, O2 Delivery Device Bi / C PAP, EPAP 8, IPAP 16, Blood Gas Notified Whom ED , Blood Gas Notified Time 115 10/11/17 03:15: Hemoglobin A1c 12.2 H 10/11/17 03:15: Sodium 135 L, Potassium 7.4 H*, Chloride 103, Carbon Dioxide 22.0, Anion Gap 10, BUN 82 H, Creatinine 6.02 H, Estim Creat Clear Calc 13.88, Est GFR (MDRD) Af Amer 13 L, Est GFR (MDRD) Non-Af 11 L, BUN/Creatinine Ratio 13.6, Glucose 599 H*, Calcium 7.6 L, Troponin I < 0.02 10/11/17 06:15: WBC 7.5, RBC 2.72 L, Hgb 8.3 L, Hct 25.6 L, MCV 94.1 H, MCH 30.5, MCHC 32.4, RDW 14.6, RDW Differential 47.8 H, Plt Count 185, MPV 10.1 10/11/17 06:15: Sodium 138, Potassium 5.0, Chloride 103, Carbon Dioxide 25.0, Anion Gap 10, BUN 56 H, Creatinine 4.22 H, Estim Creat Clear Calc 19.11, Est GFR (MDRD) Af Amer 19 L, Est GFR (MDRD) Non-Af 16 L, BUN/Creatinine Ratio 13.3, Glucose 402 H, Calcium 7.7 L 10/11/17 06:25: POC Glucose 444 H 10/11/17 : MRSA (PCR) Negative Clinical Impression(s) from Imaging Studies Chest X-Ray 10/11/17 00:43 IMPRESSION: Cardiomegaly with mild CHF. Electronically Signed: Franklin Crews MD at 1:28 EDT , Service support ,
--- NOTE | 2017-10-11 08:50 | CCHN_ITS ---
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 H&P, vitals, labs, chest x-ray reviewed. In summary, patient was admitted for progressive worsening of shortness of breath after he missed dialysis since Monday with generalized edema, severe hyperkalemia and weight gain about 8-10 kg since his last dialysis. The patient was dialyzed in the morning today on an urgent basis and about 2.7 L of fluid removed as per apartment maintenance manager Dr. Gregorio. Discussed with the apartment maintenance manager, Dr. Gregorio and she is planning for 1 more session of dialysis today. Potassium after dialysis is corrected to 5.0. Patient is still short of breath on BiPAP. He denies history of smoking/COPD/emphysema and ABG does not show CO2 retention. He wears BiPAP at night most probably due to obstructive sleep apnea. Laboratory Results 10/11/17 00:40: WBC 6.9, RBC 2.87 L, Hgb 8.7 L, Hct 27.2 L, MCV 94.8 H, MCH 30.3 , MCHC 32.0, RDW 14.7 H, RDW Differential 48.8 H, Plt Count 173, MPV 10.6, Immature Gran % (Auto) 0.700, Neut % (Auto) 81.9 H, Lymph % (Auto) 7.3 L, [place] % (Auto) 8.8, Eos % (Auto) 0.9, Baso % (Auto) 0.4, Absolute Neuts (auto) 5.6, Absolute Lymphs (auto) 0.50 L, Total Counted Not Reportable 10/11/17 00:40: Sodium 135 L, Potassium 7.4 H*, Chloride 105, Carbon Dioxide 20.0 L, Anion Gap 10, BUN 87 H, Creatinine 6.05 H, Estim Creat Clear Calc 13.81 , Est GFR (MDRD) Af Amer 13 L, Est GFR (MDRD) Non-Af 11 L, BUN/Creatinine Ratio 14.4, Glucose 568 H*, Calcium 7.7 L, Troponin I < 0.02 10/11/17 00:40: Acetone Level NEGATIVE 10/11/17 00:40: Magnesium 2.0, TSH 1.38 10/11/17 01:09: Specimen Type ART, Sample Site L Radial, pH 7.23 L, Bicarbonate Actual 17.9 L, POC Total CO2 19, Base Excess -10 L, O2 Saturation 97, O2 % 30, ABG pCO2 42.8, ABG pO2 107 H, Brennan Test POS, Respiration Rate 21, O2 Delivery Device Bi / C PAP, EPAP 8, IPAP 16, Blood Gas Notified Whom ED , Blood Gas Notified Time 115 10/11/17 03:15: Hemoglobin A1c 12.2 H 10/11/17 03:15: Sodium 135 L, Potassium 7.4 H*, Chloride 103, Carbon Dioxide 22.0, Anion Gap 10, BUN 82 H, Creatinine 6.02 H, Estim Creat Clear Calc 13.88, Est GFR (MDRD) Af Amer 13 L, Est GFR (MDRD) Non-Af 11 L, BUN/Creatinine Ratio 13.6, Glucose 599 H*, Calcium 7.6 L, Troponin I < 0.02 10/11/17 06:15: WBC 7.5, RBC 2.72 L, Hgb 8.3 L, Hct 25.6 L, MCV 94.1 H, MCH 30.5 , MCHC 32.4, RDW 14.6, RDW Differential 47.8 H, Plt Count 185, MPV 10.1 10/11/17 06:15: Sodium 138, Potassium 5.0, Chloride 103, Carbon Dioxide 25.0, Anion Gap 10, BUN 56 H, Creatinine 4.22 H, Estim Creat Clear Calc 19.11, Est GFR (MDRD) Af Amer 19 L, Est GFR (MDRD) Non-Af 16 L, BUN/Creatinine Ratio 13.3, Glucose 402 H, Calcium 7.7 L 10/11/17 06:25: POC Glucose 444 H 10/11/17 : MRSA (PCR) Negative Clinical Impression(s) from Imaging Studies Chest X-Ray 10/11/17 00:43 IMPRESSION: Cardiomegaly with mild CHF. Electronically Signed: Franklin Crews MD at 1:28 EDT , Service support ,
--- NOTE | 2017-10-11 10:15 | NURSING ---
DIALYSIS NURSE IN ROOM PREPARING PATIENT FOR DIALYSIS
--- NOTE | 2017-10-11 10:19 | CASEMGMT ---
See assessment. SW participated in ICU rounds this morning, then spoke w/pt yogesh neumann in the room after rounds. Pt states has been having a difficult time getting around since the last hospitalization, pt has a cane, not a walker. Pt can manage his personal ADL's, Charity helps him with cooking, cleaning, bills, meds. [facility] takes pt to and from dialysis. Pt does states has been feeling down regarding all that is going on with his health, SW offered support. SW spoke w/pt and Charity about discharge plan. Pt has thought about going to SNF. SW gave pt and Charity list of SNF's in the area in the event this is needed, explained will follow up again w/them tomorrow. Since pt does already have transport taking him to and from dialysis, this may help if setting up SNF is needed--will need to confirm w/[facility] that they can take pt to and from SNF to dialysis. SW will continue to follow. TRENTON Nye, COUNTERINTELLIGENCE/HUMINT SPECIALIST
[2017-10-11] MEDS: Acetaminophen 325 MG Tablet 650 MG PO (11:34)
[2017-10-11 12:00] LABS: Bedside Glucose 290 mg/dL (70-110)
[2017-10-11] MEDS: Heparin 10,000 UNITS/10 ML Vial 8000 UNITS IV (12:00)
[2017-10-11 15:31] LABS: Bedside Glucose 181 mg/dL (70-110)
--- NOTE | 2017-10-11 15:32 | DIALYSIS ---
HD x 4 hours complete. Tolerated tx well. UF of 4000ml. Ran on 2k bath. Used upper right arm fistula. [place] removed post tx and pressure applied to site. Blood cultures x 2 drawn d/t fever during dialysis. Epogen given as ordered. See tx sheet for more details. Report was given to AMIRAH Alatorre.
[2017-10-11] MEDS: Aspirin 81 MG TAB.CHEW PO (17:00)
[2017-10-11] MEDS: Metoprolol Tartrate 50 MG Tablet PO ×2 (17:02→22:49)
[2017-10-11] MEDS: Pantoprazole Sodium 40 MG Tablet PO (17:02)
[2017-10-11] MEDS: Gabapentin 100 MG Capsule PO (17:02)
[2017-10-11] MEDS: amLODIPine 10 MG Tablet PO (17:02)
[2017-10-11] MEDS: Isosorbide Mononitrate 30 MG Tablet PO (17:03)
[2017-10-11] MEDS: Lisinopril 10 MG Tablet PO (17:03)
[2017-10-11] MEDS: SEVELAMER CARBONATE 800 MG TABLET PO (17:04)
[2017-10-11] MEDS: Pyridoxine HCl 100 MG Tablet PO (17:05)
[2017-10-11 17:15] LABS: Bedside Glucose 255 mg/dL (70-110)
--- NOTE | 2017-10-11 17:18 | CPS ---
started by nursing
[2017-10-11] MEDS: Atorvastatin Calcium 20 MG Tablet PO (22:34)
[2017-10-11 23:15] LABS: Bedside Glucose 377 mg/dL (70-110)
[2017-10-12] VITALS (20 sets, daily range): BP systolic 123–155; BP diastolic 54–80; PULSE 73–83; RESP 14–18; TEMP 36.1–36.9; O2SAT 93–98
[2017-10-12] MEDS: Acetaminophen 325 MG Tablet 650 MG PO ×3 (03:38→19:34)
--- NOTE | 2017-10-12 04:18 | CPS ---
post visit, patient requested bipap off. patient placed back on nc at 3 lpm
[2017-10-12] MEDS: hydrALAZINE 10 MG Tablet PO ×3 (06:01→22:17)
[2017-10-12 06:46] LABS: Hematocrit 22.8 % (40-54); Hemoglobin 7.1 g/dl (13.0-16.5); Mean Corp Hgb Conc 31.1 g/gl (32-36); Mean Corpuscular Volume 93.1 fL (80-94); Platelet Count 175 K/mm3 (150-450); RBC Distribution Width CV 14.9 % (11.6-14.6); RBC Distribution Width SD 50.6 fl (35.1-43.9); Red Blood Count 2.45 M/mm3 (4.6-6.2); Scan Indicated on CBC? Y/N NO; White Blood Count 5.3 K/mm3 (4.4-11.0)
[2017-10-12 06:56] LABS: Bedside Glucose 376 mg/dL (70-110)
[2017-10-12 07:21] LABS: Albumin, Serum 1.9 g/dL (3.2-5.0); BUN 45 mg/dL (7-18); Calcium,Total 7.8 mg/dL (8.5-10.1); Chloride 101 mmol/L (98-107); Creatinine, Serum 3.75 mg/dL (0.70-1.30); EST Glomerular Filtration Rate 18 mL/min (>60); Est Glom Filt Rate - Afr Amer 22 mL/min (>60); Glucose 403 mg/dL (74-106); Phosphorus 5.9 mg/dL (2.5-4.9); Potassium 4.5 mmol/L (3.5-5.1); Sodium Level 137 mmol/L (136-145)
--- NOTE | 2017-10-12 08:30 | PCM.PN.REN ---
Subjective: transferred to pcu. Breathing improved. Dialysis today and TTS chronic schedule. - Physical Exam General: Alert, Oriented x3, Cooperative, No apparent distress Neck: Supple Lungs: Clear to auscultation, Diminished Abdomen: Bowel Sounds Present, Soft, Non Tender, Non-Distended, Obese Extremities: Edema Skin: No rashes Musculoskeletal: No Muscle Wasting Psych/Mental Status: Normal Affect, Appropriate, Alert and oriented to time, place, person, mood and affect Vital Signs Temp Pulse Resp BP Pulse Ox 98.1 F 77 16 123/54 H 95 10/12/17 03:36 10/12/17 07:40 10/12/17 03:36 10/12/17 06:01 10/12/17 07:25 Oxygen Flow Rate (L/min) 3 Oxygen Delivery Method Nasal Cannula Weight: 127.4 kg Body Mass Index (BMI) 46.3 Intake and Output for Last 24 Hours 10/10/17 10/11/17 10/12/17 23:59 23:59 23:59 Intake Total 1180 / 1180 120 / 120 Output Total 4500 / 4500 Balance -3320 / -3320 120 / 120 Laboratory Tests Past 24 Hrs 10/11/17 10/11/17 10/12/17 11:00 14:00 06:20 WBC RBC Hgb Hct MCV MCH MCHC RDW RDW Differential Plt Count MPV Sodium 137 Potassium 4.5 Chloride 101 Carbon Dioxide 26.0 BUN 45 H Creatinine 3.75 H Estim Creat Clear Calc 21.50 Est GFR (MDRD) Af Amer 22 L Est GFR (MDRD) Non-Af 18 L BUN/Creatinine Ratio 12.0 Glucose 403 H Calcium 7.8 L Phosphorus 5.9 H Troponin I < 0.02 < 0.02 Albumin 1.9 L 10/12/17 06:20 WBC 5.3 RBC 2.45 L Hgb 7.1 L Hct 22.8 L MCV 93.1 MCH 29.0 MCHC 31.1 L RDW 14.9 H RDW Differential 50.6 H Plt Count 175 MPV 10.0 Sodium Potassium Chloride Carbon Dioxide BUN Creatinine Estim Creat Clear Calc Est GFR (MDRD) Af Amer Est GFR (MDRD) Non-Af BUN/Creatinine Ratio Glucose Calcium Phosphorus Troponin I Albumin POC Glucose 10/12/17 10/11/17 10/11/17 06:53 22:26 17:12 POC Glucose 376 H 377 H 255 H 10/11/17 10/11/17 13:51 11:52 POC Glucose 181 H 290 H Medical Necessity - Tobacco Use Smoking Status: Never smoker Tobacco Use: Non-smoker Assessment/Plan 1. ESRD HD this morning and TTS. Noncompliance with dialysis 2. Acute hyperkalemia resolved with emergent dialysis 3. acute diastolic CHF arrange for more fluid removal on dialysis. 4. Anemia TERESA with dialysis. hgb 7. 1 unit prbc on dialysis. 5. HTN stable 6. DM2 A1C 12, hyperglycemic. 7. Hx noncompliance with medication, diet, fluids, dialysis. 16kg over target wt 8. Low grade fever, await bld cx drawn on dialysis yesterday, resp panel. addendum: seen on dialysis at 11:20. Tolerating well so far. BP stable. DW hospitalist
--- NOTE | 2017-10-12 09:45 | CASEMGMT ---
SW spoke with patient and his significant other. Patient said he thinks he is going home as he feels needed at home. He then told SW about his two dogs and 3 cats. He talked about how they are their kids and they are spoiled. He seemed to cheer up when he talked about them. SW was going to talk to him about [facility], however there were numerous people in the room which seemed to make it loud and patient was not able to focus his attention on Social Work. WILFREDO told him SW will stop by a little later. Agatha SHEETS MSW
[2017-10-12 09:58] LABS: Mucous, Urine 0 SEEN /hpf (<or=2+)
[2017-10-12 10:02] LABS: Color, Urine Yellow (Yellow); Glucose, Dipstick 1000 mg/dl (Normal); Ketone-Dipstick Negative (Negative); Leukocyte Esterase-Dipstick Negative /ul (Negative); Nitrite-Dipstick Negative (Negative); Occult Blood-Urine 50 /ul (Negative); Protein-Dipstick 500 mg/dl (Negative); Urine Bilirubin Dipstick Negative (Negative); Urine Clarity Clear (Clear); Urine Urobilinogen Normal (Normal); Urine pH 6.5 (5.0 - 8.0)
[2017-10-12 10:09] LABS: Bacteria 1+ /hpf (None Seen); Red Blood Cells-Urine 0-5 SEEN /hpf (0-5); Squamous Epithelial Cells - UA 0-5 SEEN /hpf (0-5); White Blood Cells 0-5 SEEN /hpf (0-5)
[2017-10-12] MEDS: Heparin 10,000 UNITS/10 ML Vial 8000 UNITS IV (11:33)
[2017-10-12 12:05] LABS: Bedside Glucose 251 mg/dL (70-110)
--- NOTE | 2017-10-12 14:03 | NURSING ---
PATIENT COMPLAINT OF CP, EKG NO CHANGES, NSR
--- NOTE | 2017-10-12 14:31 | DIALYSIS ---
Tx was discontinued 5 min early d/t pt c/o chest pain. Dr Gregorio was notified. Ran on 2k bath. UF of 4550ml. Used upper right arm fistula. [place] removed post tx and pressure applied to sites. One unit of PRBC given during tx. Epogen given as orderd. See tx sheet. Report was given to AMIRAH Burt.
[2017-10-12] MEDS: Pantoprazole Sodium 40 MG Tablet PO (15:16)
[2017-10-12] MEDS: Lisinopril 10 MG Tablet PO (15:16)
[2017-10-12] MEDS: Aspirin 81 MG TAB.CHEW PO (15:16)
[2017-10-12] MEDS: Gabapentin 100 MG Capsule PO (15:16)
[2017-10-12] MEDS: Pyridoxine HCl 100 MG Tablet PO (15:16)
[2017-10-12] MEDS: Metoprolol Tartrate 50 MG Tablet PO ×2 (15:16→22:23)
[2017-10-12] MEDS: SEVELAMER CARBONATE 800 MG TABLET PO (15:16)
[2017-10-12] MEDS: amLODIPine 10 MG Tablet PO (15:16)
[2017-10-12] MEDS: Furosemide 40 MG Tablet PO ×2 (15:20→22:16)
[2017-10-12] MEDS: Isosorbide Mononitrate 30 MG Tablet PO (15:20)
--- NOTE | 2017-10-12 15:20 | EKG12_ITS ---
Test Reason : CP Blood Pressure : / mmHG Vent. Rate : 078 BPM Atrial Rate : 078 BPM P-R Int : 132 ms QRS Dur : 090 ms QT Int : 396 ms P-R-T Axes : 016 016 -07 degrees QTc Int : 451 ms Normal sinus rhythm Normal ECG Confirmed by CANDIE CONRAD MD ([id number]), market editor DEREK KEARNS ([id number]) on 10/17/2017 3:29:20 PM Referred By: FELIZ Confirmed By:CANDIE CONRAD MD
[2017-10-12 16:56] LABS: Bedside Glucose 365 mg/dL (70-110)
--- NOTE | 2017-10-12 20:08 | PCM.PROGNOTE ---
Subjective: Patient was feeling better with improving dyspnea, but had mid chest pain in the afternoon, reporting after he woke up from nap. EKG was obtained, was unremarkable. - Physical Exam General: Alert, Oriented x3, Cooperative HEENT: Atraumatic, PERRLA Oral: Moist Mucosa, No Gingival or Mucosal Lesions/ Ulcerations Neck: Supple Lungs: Diminished Cardiovascular: Regular rate, Regular Rhythm, Normal S1, Normal S2, No murmurs, No Ectopic Activity Abdomen: Bowel Sounds Present, Soft, Non Tender, Non-Distended, Obese Extremities: No clubbing, No cyanosis, Edema - trace to 1+ bilaterally. Skin: No rashes, No breakdown Musculoskeletal: No Tenderness to Palpation of Joints or Extremities Lymphatic: No Cervical, Supraclavicular, or Inguinal Adenopathy Neurological: Cranial nerves II-XII grossly intact, Neuro grossly intact Psych/Mental Status: Normal Affect Vital Signs Temp Pulse Resp BP Pulse Ox 98.4 F 74 18 127/70 H 96 10/12/17 15:15 10/12/17 18:46 10/12/17 15:15 10/12/17 15:15 10/12/17 15:15 Oxygen Flow Rate (L/min) 2.5 Oxygen Delivery Method Room Air Weight: 280 lb 13.903 oz Body Mass Index (BMI) 46.3 Intake and Output for Last 24 Hours 10/10/17 10/11/17 10/12/17 23:59 23:59 23:59 Intake Total 1180 / 1180 600 / 600 Output Total 4500 / 4500 4550 / 4550 Balance -3320 / -3320 -3950 / -3950 Microbiology Past 72 Hours 10/11/17 14:40 Respiratory Panel (PCR) - Final Mucosa - Nose Laboratory Tests Past 24 Hrs 10/12/17 10/12/17 10/12/17 06:20 06:20 09:25 WBC 5.3 RBC 2.45 L Hgb 7.1 L Hct 22.8 L MCV 93.1 MCH 29.0 MCHC 31.1 L RDW 14.9 H RDW Differential 50.6 H Plt Count 175 MPV 10.0 Sodium 137 Potassium 4.5 Chloride 101 Carbon Dioxide 26.0 BUN 45 H Creatinine 3.75 H Estim Creat Clear Calc 21.50 Est GFR (MDRD) Af Amer 22 L Est GFR (MDRD) Non-Af 18 L BUN/Creatinine Ratio 12.0 Glucose 403 H Calcium 7.8 L Phosphorus 5.9 H Albumin 1.9 L Urine Color Urine Clarity Urine pH Ur Specific [place] Urine Protein Urine Glucose (UA) Urine Ketones Urine Occult Blood Urine Nitrite Urine Bilirubin Urine Urobilinogen Ur Leukocyte Esterase Urine RBC Urine WBC Ur Squamous Epith Cells Urine Bacteria Urine Mucus Blood Type A POSITIVE Antibody Screen NEGATIVE Crossmatch See Detail 10/12/17 09:35 WBC RBC Hgb Hct MCV MCH MCHC RDW RDW Differential Plt Count MPV Sodium Potassium Chloride Carbon Dioxide BUN Creatinine Estim Creat Clear Calc Est GFR (MDRD) Af Amer Est GFR (MDRD) Non-Af BUN/Creatinine Ratio Glucose Calcium Phosphorus Albumin Urine Color Yellow Urine Clarity Clear Urine pH 6.5 Ur Specific [place] 1.010 Urine Protein 500 H Urine Glucose (UA) 1000 H Urine Ketones Negative Urine Occult Blood 50 H Urine Nitrite Negative Urine Bilirubin Negative Urine Urobilinogen Normal Ur Leukocyte Esterase Negative Urine RBC 0-5 SEEN Urine WBC 0-5 SEEN Ur Squamous Epith Cells 0-5 SEEN Urine Bacteria 1+ Urine Mucus 0 SEEN Blood Type Antibody Screen Crossmatch POC Glucose 10/12/17 10/12/17 10/12/17 16:49 11:31 06:53 POC Glucose 365 H 251 H 376 H 10/11/17 22:26 POC Glucose 377 H Diagnostic Data Chest X-Ray 10/11/17 00:43 IMPRESSION: Cardiomegaly with mild CHF. Electronically Signed: Franklin Crews MD at 1:28 EDT , Service support , Medical Necessity - Tobacco Use Smoking Status: Never smoker Tobacco Use: Non-smoker Assessment/Plan The patient is a 47 y/o M w/ PMHx: ESRD on HD TTH following w/ Dr. Gregorio, HTN, HLD, AOCD, Chronic Diastolic CHF, Diabetes mellitus type II w/ Neuropathy, Morbid Obesity, SELMA, Morbid Obesity, notable history of serial non-compliance with medication, office visits and dialysis who presents to the [facility] ED on 10/11/17 with dyspnea, orthopnea, more pronounced on day prior to ED presentation with noted session on both and Monday, but missed session on Monday and again missed session on Monday. In the ED patient notes improvement following BIPAP initiation but still ongoing dyspnea. In the ED work-up included T 99, HR 92, BP 166/82, RR 28, 99% on BIPAP, CBC w/ WBC 6.9, Hgb 8.7, Plts 173 without marked shift, ABG w/ pH 7.23, Bicarb 17.9, BE -10, pO2 107, BMP w/ Na 135, K 7.4, CO2 20, BUN/Cr 87/6.05, glucose 568, Ca 7.7, trop <0.02, CXR with cardiomegaly and congestion. In the ED patient administered albuterol, Ca-gluconate, dextrose, insulin. ED contacted Dr. Bowen ICU and also Dr. Gregorio Nephrology to assist in coordination of HD. (1) Acute Hypoxic Respiratory Failure secondary to Volume Overload, Missed HD w/ ? Diastolic CHF History (Most recent ECHO unremarkable) w/ Resulting Metabolic Acidosis: Will admit to the ICU, continue BIPAP, obtain ICU consultation, maintain on telemetry, awaiting Nephrology consultation w/ HD emergent administration, will initiate lasix drip, obtain serial cardiac enzymes, obtain serial EKGs, monitor I/Os, maintain on intake restriction, continue medical therapy w/ asa, statin, BB, defer ACEI given renal disease. Will obtain TSH and magnesium level. 09/09/17 ECHO w/ normal LV size, EF 65%, no evidence diastolic dysfunction, mild TVI. (2) Hyperkalemia: Admission K+ 7.4, Nephrology consulted, planned HD, administer kayexelate now, was in the ED administered insulin-dextrose, Ca-gluconate, albuterol, obtain repeat BMP, supplementation given, repeat level in AM. (3) ESRD: Admission BUN/Cr 87/6.05, HD TTH, missed HD , was administered on Monday per patient, follows w/ Dr. Gregorio outpatient, repeat BMP in AM. Current metabolic acidosis secondary to missed HD/ESRD, expect improvement w/ HD. (4) Hypertension: Continue home regimen including IV lasix drip as noted, metoprolol, Norvasc, hydralazine, lisinopril, isosorbide, PRN hydralazine. (5) Hyperlipidemia: Continue home statin regimen. (6) Diabetes mellitus type II w/ Hyperglycemia: Admission glucose 568, insulin administered in the ED, HgbA1c pending, maintain on accu checks w/ ISS, add levemir now given presentation. (7) Morbid Obesity: Weight loss and lifestyle changes encouraged, nutrition consulted. (8) GERD: PPI. (9) SELMA: Currently on BIPAP. (10) Anemia of chronic disease with ESRD, acute on chronic anemia Hgb 7.1. He received PRBC 1 unit on 10/12. Repeat CBC in AM. (11) Fever. Fever spiked up to 101. Blood culture obtained. He has been afebrile today. Continue to monitor without antibiotics. DVT Prophylaxis: SCDs, heparin. CODE status:Full code. Code Visit Inpatient E&M: 45709 Subs Hosp L2
--- NOTE | 2017-10-12 20:15 | PN_ITS ---
Subjective: Patient was feeling better with improving dyspnea, but had mid chest pain in the afternoon, reporting after he woke up from nap. EKG was obtained, was unremarkable. - Physical Exam General: Alert, Oriented x3, Cooperative HEENT: Atraumatic, PERRLA Oral: Moist Mucosa, No Gingival or Mucosal Lesions/ Ulcerations Neck: Supple Lungs: Diminished Cardiovascular: Regular rate, Regular Rhythm, Normal S1, Normal S2, No murmurs, No Ectopic Activity Abdomen: Bowel Sounds Present, Soft, Non Tender, Non-Distended, Obese Extremities: No clubbing, No cyanosis, Edema - trace to 1+ bilaterally. Skin: No rashes, No breakdown Musculoskeletal: No Tenderness to Palpation of Joints or Extremities Lymphatic: No Cervical, Supraclavicular, or Inguinal Adenopathy Neurological: Cranial nerves II-XII grossly intact, Neuro grossly intact Psych/Mental Status: Normal Affect Vital Signs Temp Pulse Resp BP Pulse Ox 98.4 F 74 18 127/70 H 96 10/12/17 15:15 10/12/17 18:46 10/12/17 15:15 10/12/17 15:15 10/12/17 15:15 Oxygen Flow Rate (L/min) 2.5 Oxygen Delivery Method Room Air Weight: 280 lb 13.903 oz Body Mass Index (BMI) 46.3 Intake and Output for Last 24 Hours 10/10/17 10/11/17 10/12/17 23:59 23:59 23:59 Intake Total 1180 / 1180 600 / 600 Output Total 4500 / 4500 4550 / 4550 Balance -3320 / -3320 -3950 / -3950 Microbiology Past 72 Hours 10/11/17 14:40 Respiratory Panel (PCR) - Final Mucosa - Nose Laboratory Tests Past 24 Hrs 10/12/17 10/12/17 10/12/17 06:20 06:20 09:25 WBC 5.3 RBC 2.45 L Hgb 7.1 L Hct 22.8 L MCV 93.1 MCH 29.0 MCHC 31.1 L RDW 14.9 H RDW Differential 50.6 H Plt Count 175 MPV 10.0 Sodium 137 Potassium 4.5 Chloride 101 Carbon Dioxide 26.0 BUN 45 H Creatinine 3.75 H Estim Creat Clear Calc 21.50 Est GFR (MDRD) Af Amer 22 L Est GFR (MDRD) Non-Af 18 L BUN/Creatinine Ratio 12.0 Glucose 403 H Calcium 7.8 L Phosphorus 5.9 H Albumin 1.9 L Urine Color Urine Clarity Urine pH Ur Specific [place] Urine Protein Urine Glucose (UA) Urine Ketones Urine Occult Blood Urine Nitrite Urine Bilirubin Urine Urobilinogen Ur Leukocyte Esterase Urine RBC Urine WBC Ur Squamous Epith Cells Urine Bacteria Urine Mucus Blood Type A POSITIVE Antibody Screen NEGATIVE Crossmatch See Detail 10/12/17 09:35 WBC RBC Hgb Hct MCV MCH MCHC RDW RDW Differential Plt Count MPV Sodium Potassium Chloride Carbon Dioxide BUN Creatinine Estim Creat Clear Calc Est GFR (MDRD) Af Amer Est GFR (MDRD) Non-Af BUN/Creatinine Ratio Glucose Calcium Phosphorus Albumin Urine Color Yellow Urine Clarity Clear Urine pH 6.5 Ur Specific [place] 1.010 Urine Protein 500 H Urine Glucose (UA) 1000 H Urine Ketones Negative Urine Occult Blood 50 H Urine Nitrite Negative Urine Bilirubin Negative Urine Urobilinogen Normal Ur Leukocyte Esterase Negative Urine RBC 0-5 SEEN Urine WBC 0-5 SEEN Ur Squamous Epith Cells 0-5 SEEN Urine Bacteria 1+ Urine Mucus 0 SEEN Blood Type Antibody Screen Crossmatch POC Glucose 10/12/17 10/12/17 10/12/17 16:49 11:31 06:53 POC Glucose 365 H 251 H 376 H 10/11/17 22:26 POC Glucose 377 H Diagnostic Data Chest X-Ray 10/11/17 00:43 IMPRESSION: Cardiomegaly with mild CHF. Electronically Signed: Franklin Crews MD at 1:28 EDT , Service support , Medical Necessity - Tobacco Use Smoking Status: Never smoker Tobacco Use: Non-smoker Assessment/Plan The patient is a 47 y/o M w/ PMHx: ESRD on HD TTH following w/ Dr. Gregorio, HTN, HLD , AOCD, Chronic Diastolic CHF, Diabetes mellitus type II w/ Neuropathy, Morbid Obesity, SELAM, Morbid Obesity, notable history of serial non-compliance with medication, office visits and dialysis who presents to the [facility] ED on 10/11/17 with dyspnea, orthopnea, more pronounced on day prior to ED presentation with noted session on both and Monday, but missed session on Monday and again missed session on Monday. In the ED patient notes improvement following BIPAP initiation but still ongoing dyspnea. In the ED work-up included T 99, HR 92, BP 166/82, RR 28, 99% on BIPAP, CBC w/ WBC 6.9, Hgb 8.7, Plts 173 without marked shift, ABG w/ pH 7.23, Bicarb 17.9, BE -10, pO2 107, BMP w/ Na 135, K 7.4 , CO2 20, BUN/Cr 87/6.05, glucose 568, Ca 7.7, trop <0.02, CXR with cardiomegaly and congestion. In the ED patient administered albuterol, Ca- gluconate, dextrose, insulin. ED contacted Dr. Bowen ICU and also Dr. Gregorio Nephrology to assist in coordination of HD. (1) Acute Hypoxic Respiratory Failure secondary to Volume Overload, Missed HD w / ? Diastolic CHF History (Most recent ECHO unremarkable) w/ Resulting Metabolic Acidosis: Will admit to the ICU, continue BIPAP, obtain ICU consultation, maintain on telemetry, awaiting Nephrology consultation w/ HD emergent administration, will initiate lasix drip, obtain serial cardiac enzymes , obtain serial EKGs, monitor I/Os, maintain on intake restriction, continue medical therapy w/ asa, statin, BB, defer ACEI given renal disease. Will obtain TSH and magnesium level. 09/09/17 ECHO w/ normal LV size, EF 65%, no evidence diastolic dysfunction, mild TVI. (2) Hyperkalemia: Admission K+ 7.4, Nephrology consulted, planned HD, administer kayexelate now, was in the ED administered insulin-dextrose, Ca- gluconate, albuterol, obtain repeat BMP, supplementation given, repeat level in AM. (3) ESRD: Admission BUN/Cr 87/6.05, HD TTH, missed HD , was administered on Monday per patient, follows w/ Dr. Gregorio outpatient, repeat BMP in AM. Current metabolic acidosis secondary to missed HD/ESRD, expect improvement w/ HD. (4) Hypertension: Continue home regimen including IV lasix drip as noted, metoprolol, Norvasc, hydralazine, lisinopril, isosorbide, PRN hydralazine. (5) Hyperlipidemia: Continue home statin regimen. (6) Diabetes mellitus type II w/ Hyperglycemia: Admission glucose 568, insulin administered in the ED, HgbA1c pending, maintain on accu checks w/ ISS, add levemir now given presentation. (7) Morbid Obesity: Weight loss and lifestyle changes encouraged, nutrition consulted. (8) GERD: PPI. (9) SELMA: Currently on BIPAP. (10) Anemia of chronic disease with ESRD, acute on chronic anemia Hgb 7.1. He received PRBC 1 unit on 10/12. Repeat CBC in AM. (11) Fever. Fever spiked up to 101. Blood culture obtained. He has been afebrile today. Continue to monitor without antibiotics. DVT Prophylaxis: SCDs, heparin. CODE status:Full code. Code Visit Inpatient E&M: 84288 Subs Hosp L2
[2017-10-12] MEDS: Morphine 2 MG/ML Syringe IV (22:08)
[2017-10-12] MEDS: 0.9% NaCl Peripheral Flush Adult/Peds IV (22:09)
[2017-10-12] MEDS: Atorvastatin Calcium 20 MG Tablet PO (22:23)
[2017-10-12 23:06] LABS: Bedside Glucose 493 mg/dL (70-110)
[2017-10-13] VITALS (12 sets, daily range): BP systolic 109–137; BP diastolic 56–70; PULSE 66–79; RESP 14–18; TEMP 36.3–36.9; O2SAT 81–99
[2017-10-13] MEDS: oxyCODONE 5 MG Tablet PO (01:13)
--- NOTE | 2017-10-13 02:56 | NURSING ---
1 u PRBCs given 10/12 by safety and health consultant. Began at 1145 and ended at 1300 per note on chart
[2017-10-13] MEDS: hydrALAZINE 10 MG Tablet PO (06:02)
[2017-10-13 07:06] LABS: Bedside Glucose 301 mg/dL (70-110)
[2017-10-13 07:13] LABS: Mean Corp Hgb Conc 32.1 g/gl (32-36); Mean Corpuscular Hgb 29.7 pg (27.0-32.0); Mean Corpuscular Volume 92.4 fL (80-94); Mean Platelet Vol. 10.1 fl (6.2-12.0); Platelet Count 231 K/mm3 (150-450); RBC Distribution Width CV 14.4 % (11.6-14.6); RBC Distribution Width SD 47.2 fl (35.1-43.9); Red Blood Count 3.03 M/mm3 (4.6-6.2); White Blood Count 4.7 K/mm3 (4.4-11.0)
[2017-10-13 07:15] LABS: Scan Indicated on CBC? Y/N NO
[2017-10-13 07:37] LABS: Anion Gap 10 (5-15); BUN 41 mg/dL (7-18); BUN/Creat Ratio 10.8 RATIO (10-20); Calcium,Total 8.1 mg/dL (8.5-10.1); Chloride 96 mmol/L (98-107); EST Glomerular Filtration Rate 18 mL/min (>60); Est Glom Filt Rate - Afr Amer 22 mL/min (>60); Estimated Creatinine Clearance 21.22 ml/min; Glucose 295 mg/dL (74-106); Potassium 4.2 mmol/L (3.5-5.1); Sodium Level 135 mmol/L (136-145)
[2017-10-13] MEDS: Furosemide 40 MG Tablet PO (09:11)
[2017-10-13] MEDS: Isosorbide Mononitrate 30 MG Tablet PO (09:11)
[2017-10-13] MEDS: Pantoprazole Sodium 40 MG Tablet PO (09:11)
[2017-10-13] MEDS: Aspirin 81 MG TAB.CHEW PO (09:11)
[2017-10-13] MEDS: Lisinopril 10 MG Tablet PO (09:11)
[2017-10-13] MEDS: Gabapentin 100 MG Capsule PO ×2 (09:11→11:07)
[2017-10-13] MEDS: Metoprolol Tartrate 50 MG Tablet PO (09:11)
[2017-10-13] MEDS: amLODIPine 10 MG Tablet PO (09:11)
--- NOTE | 2017-10-13 09:30 | CASEMGMT ---
Per Minoo VILLALOBOS, pt is willing to consider CCN at this time. Call to [facility] with referral and order placed. [facility] states that she will try to have Dayan or Chaim stop into PCU to see pt. Neville RN CM
[2017-10-13] MEDS: Pyridoxine HCl 100 MG Tablet PO (11:07)
[2017-10-13] MEDS: SEVELAMER CARBONATE 800 MG TABLET PO (11:07)
--- NOTE | 2017-10-13 11:24 | PCM.DC ---
You will use the following diet at home:: Renal (restricted protein/sodium) Your food should be the consistency of: Regular Your liquids should be the consistency of: Regular/Thin Discharge Activity: Return to Normal Activity Allergies/Adverse Reactions: Allergies venom-honey bee [bee venom (honey bee)] Allergy (Verified 09/25/17 11:28) Swelling sulfamethoxazole [From Bactrim] Adverse Reaction (Verified 09/25/17 11:28) Upset Stomach trimethoprim [From Bactrim] Adverse Reaction (Verified 09/25/17 11:28) Upset Stomach Medications to take at Discharge Amlodipine Besylate [Norvasc] 10 mg PO DAILY 10/11/17 Aspirin [Aspirin, Baby] 81 mg PO DAILY@0800 10/11/17 Atorvastatin Calcium [Lipitor] 20 mg PO QHS 10/11/17 Furosemide [Lasix] 40 mg PO BIDLX 10/11/17 Gabapentin [Neurontin] 100 mg PO TIDCM 10/11/17 Isosorbide Mononitrate [Imdur] 30 mg PO DAILY 10/11/17 Lisinopril [Zestril] 10 mg PO DAILY 10/11/17 Metoprolol Tartrate [Lopressor (beta khoa)] 50 mg PO BID 10/11/17 Omeprazole 40 mg PO DAILY 10/11/17 Pyridoxine HCl [Vitamin B-6] 100 mg PO DAILY 10/11/17 Sevelamer HCl [Renagel] 800 mg PO DAILY 10/11/17 Vits A,C,E/Lutein/Minerals [Ocuvite with Lutein Tablet] 1 each PO DAILY 10/11/17 hydrALAZINE [Apresoline] 10 mg PO TID 10/11/17 Primary Care Physician: Augie Washburn MD [Primary Care Provider] - Please follow up with your Primary Care Physician in: in 5 to 7 days. Please Follow Up With: Follow up with Dialysis as scheduled
--- NOTE | 2017-10-13 11:26 | PCM.DC.SUM ---
Discharge Date and Diagnosis - Problem List Patient Problems: Active and Suspected Problems (Last Updated 09/25/17 @ 11:51 by Claudette Cheek) Acute respiratory failure with hypoxia (Acute) Date of Admission: 10/11/17 Date of Discharge: 10/13/17 - Primary Discharge Diagnosis Pulmonary edema due to volume overload. - Secondary Discharge Diagnosis Chronic Problems (Last Updated 09/25/17 @ 11:51 by Claudette Cheek) CHF (congestive heart failure) (Chronic) Chronic respiratory failure with hypoxia (Chronic) HTN (hypertension) (Chronic) End-stage renal failure (Chronic) Acute on chronic diastolic CHF (congestive heart failure) (Chronic) Hyperlipidemia (Chronic) Diabetic neuropathy (Chronic) Anemia (Chronic) SELMA (obstructive sleep apnea) (Chronic) Morbid obesity with BMI of 40.0-44.9, adult (Chronic) Diabetes mellitus, type II (Chronic) Noncompliance (Chronic) Hospital Course and Treatment Imaging Results: Diagnostic Data Chest X-Ray 10/11/17 00:43 IMPRESSION: Cardiomegaly with mild CHF. Electronically Signed: Franklin Crews MD at 1:28 EDT , Service support , SCIENCE INSTRUCTOR: Dr. Gregorio, nephrology. Operations: None Procedures: Dialysis Summary of Care Provided: The patient is a 47 y/o M w/ PMHx: ESRD on HD TTH following w/ Dr. Gregorio, HTN, HLD, AOCD, Chronic Diastolic CHF, Diabetes mellitus type II w/ Neuropathy, Morbid Obesity, SELMA, Morbid Obesity, notable history of serial non-compliance with medication, office visits and dialysis who presents to the [facility] ED on 10/11/17 with dyspnea, orthopnea, more pronounced on day prior to ED presentation with noted session on both and Monday, but missed session on Monday and again missed session on Monday. In the ED patient notes improvement following BIPAP initiation but still ongoing dyspnea. In the ED work-up included T 99, HR 92, BP 166/82, RR 28, 99% on BIPAP, CBC w/ WBC 6.9, Hgb 8.7, Plts 173 without marked shift, ABG w/ pH 7.23, Bicarb 17.9, BE -10, pO2 107, BMP w/ Na 135, K 7.4, CO2 20, BUN/Cr 87/6.05, glucose 568, Ca 7.7, trop <0.02, CXR with cardiomegaly and congestion. In the ED patient administered albuterol, Ca-gluconate, dextrose, insulin. ED contacted Dr. Bowen ICU and also Dr. Gregorio Nephrology to assist in coordination of HD. (1) Acute Hypoxic Respiratory Failure secondary to Volume Overload, due to missed HD, with possible mild exacerbation of underling chronic Diastolic CHF(Most recent ECHO unremarkable) w/ Resulting Metabolic Acidosis: Will admit to the ICU, continue BIPAP. 09/09/17 ECHO w/ normal LV size, EF 65%, no evidence diastolic dysfunction, mild TVI. He had HD on 10/11 and 10/12, improved significantly. Oxygen saturation 99% with 2 liter. He still has trace edema, which appears chronic. Lungs are clear bilaterally on the day of discharge. Plan to follow up with HD on . Stress importance of compliance to HD. (2) Hyperkalemia: Admission K+ 7.4, Nephrology consulted, planned HD, administer kayexelate now, was in the ED administered insulin-dextrose, Ca-gluconate, albuterol, obtain repeat BMP, supplementation given. K+ stable at 4.2. (3) ESRD: Admission BUN/Cr 87/6.05, HD TTH, missed HD , was administered on Monday per patient, follows w/ Dr. Gregorio outpatient, repeat BMP in AM. Current metabolic acidosis secondary to missed HD/ESRD, expect improvement w/ HD. (4) Hypertension: Continue home regimen including IV lasix drip as noted, metoprolol, Norvasc, hydralazine, lisinopril, isosorbide, PRN hydralazine. (5) Hyperlipidemia: Continue home statin regimen. (6) Diabetes mellitus type II w/ Hyperglycemia: Admission glucose 568, insulin administered in the ED, HgbA1c 12.2, maintain on accu checks w/ ISS, add levemir now given presentation. (7) Morbid Obesity: Weight loss and lifestyle changes encouraged, nutrition consulted. (8) GERD: PPI. (9) SELMA: BiPAP mask provided during the hospital stay. (10) Anemia of chronic disease with ESRD, acute on chronic anemia Hgb 7.1. He received PRBC 1 unit on 10/12. Repeat CBC showed Hgb 9.0. Improvement due to 1 units PRBC transfusion and hemoconcentration after removal of free water via HD. (11) Fever. Fever spiked up to 101. Blood culture obtained. He remained afebrile past 2 days and blood cultures were negative to date. No abx was started. DVT Prophylaxis: SCDs, heparin. CODE status:Full code. Disposition: home with home care. Discharge Diet: Renal Diet Discharge Activity: Return to Normal Activity Home Medications: Medications to take at Discharge Amlodipine Besylate [Norvasc] 10 mg PO DAILY 10/11/17 Aspirin [Aspirin, Baby] 81 mg PO DAILY@0800 10/11/17 Atorvastatin Calcium [Lipitor] 20 mg PO QHS 10/11/17 Furosemide [Lasix] 40 mg PO BIDLX 10/11/17 Gabapentin [Neurontin] 100 mg PO TIDCM 10/11/17 Isosorbide Mononitrate [Imdur] 30 mg PO DAILY 10/11/17 Lisinopril [Zestril] 10 mg PO DAILY 10/11/17 Metoprolol Tartrate [Lopressor (beta khoa)] 50 mg PO BID 10/11/17 Omeprazole 40 mg PO DAILY 10/11/17 Pyridoxine HCl [Vitamin B-6] 100 mg PO DAILY 10/11/17 Sevelamer HCl [Renagel] 800 mg PO DAILY 10/11/17 Vits A,C,E/Lutein/Minerals [Ocuvite with Lutein Tablet] 1 each PO DAILY 10/11/17 hydrALAZINE [Apresoline] 10 mg PO TID 10/11/17 Primary Care Physician: Augie Washburn MD [Primary Care Provider] - Please follow up with your Primary Care Physician in: in 5 to 7 days. Please Follow Up With: Follow up with Dialysis as scheduled Disposition: Home with Home Health Patient Condition:: Stable Medical Necessity - Tobacco Use Smoking Status: Never smoker Tobacco Use: Non-smoker Meaningful Use Info Meaningful Use Diagnoses (Choose all that apply): CHF - CHF ERICKA/ARB ordered at discharge?: Yes Documented LVEF (%): 65 Code Visit Inpatient E&M: 75375 Disch Hosp
[2017-10-13 11:31] LABS: Bedside Glucose 348 mg/dL (70-110)
--- NOTE | 2017-10-13 11:37 | DS.PCM_ITS ---
Discharge Date and Diagnosis - Problem List Patient Problems: Active and Suspected Problems (Last Updated 09/25/17 @ 11:51 by Claudette Cheek) Acute respiratory failure with hypoxia (Acute) Date of Admission: 10/11/17 Date of Discharge: 10/13/17 - Primary Discharge Diagnosis Pulmonary edema due to volume overload. - Secondary Discharge Diagnosis Chronic Problems (Last Updated 09/25/17 @ 11:51 by Claudette Cheek) CHF (congestive heart failure) (Chronic) Chronic respiratory failure with hypoxia (Chronic) HTN (hypertension) (Chronic) End-stage renal failure (Chronic) Acute on chronic diastolic CHF (congestive heart failure) (Chronic) Hyperlipidemia (Chronic) Diabetic neuropathy (Chronic) Anemia (Chronic) SELMA (obstructive sleep apnea) (Chronic) Morbid obesity with BMI of 40.0-44.9, adult (Chronic) Diabetes mellitus, type II (Chronic) Noncompliance (Chronic) Hospital Course and Treatment Imaging Results: Diagnostic Data Chest X-Ray 10/11/17 00:43 IMPRESSION: Cardiomegaly with mild CHF. Electronically Signed: Franklin Crews MD at 1:28 EDT , Service support , HOSPITAL AIDE: Dr. Gregorio, nephrology. Operations: None Procedures: Dialysis Summary of Care Provided: The patient is a 47 y/o M w/ PMHx: ESRD on HD TTH following w/ Dr. Gregorio, HTN, HLD , AOCD, Chronic Diastolic CHF, Diabetes mellitus type II w/ Neuropathy, Morbid Obesity, SELMA, Morbid Obesity, notable history of serial non-compliance with medication, office visits and dialysis who presents to the [facility] ED on 10/11/17 with dyspnea, orthopnea, more pronounced on day prior to ED presentation with noted session on both and Monday, but missed session on Monday and again missed session on Monday. In the ED patient notes improvement following BIPAP initiation but still ongoing dyspnea. In the ED work-up included T 99, HR 92, BP 166/82, RR 28, 99% on BIPAP, CBC w/ WBC 6.9, Hgb 8.7, Plts 173 without marked shift, ABG w/ pH 7.23, Bicarb 17.9, BE -10, pO2 107, BMP w/ Na 135, K 7.4 , CO2 20, BUN/Cr 87/6.05, glucose 568, Ca 7.7, trop <0.02, CXR with cardiomegaly and congestion. In the ED patient administered albuterol, Ca- gluconate, dextrose, insulin. ED contacted Dr. Bowen ICU and also Dr. Gregorio Nephrology to assist in coordination of HD. (1) Acute Hypoxic Respiratory Failure secondary to Volume Overload, due to missed HD, with possible mild exacerbation of underling chronic Diastolic CHF( Most recent ECHO unremarkable) w/ Resulting Metabolic Acidosis: Will admit to the ICU, continue BIPAP. 09/09/17 ECHO w/ normal LV size, EF 65%, no evidence diastolic dysfunction, mild TVI. He had HD on 10/11 and 10/12, improved significantly. Oxygen saturation 99% with 2 liter. He still has trace edema, which appears chronic. Lungs are clear bilaterally on the day of discharge. Plan to follow up with HD on . Stress importance of compliance to HD. (2) Hyperkalemia: Admission K+ 7.4, Nephrology consulted, planned HD, administer kayexelate now, was in the ED administered insulin-dextrose, Ca- gluconate, albuterol, obtain repeat BMP, supplementation given. K+ stable at 4.2. (3) ESRD: Admission BUN/Cr 87/6.05, HD TTH, missed HD , was administered on Monday per patient, follows w/ Dr. Gregorio outpatient, repeat BMP in AM. Current metabolic acidosis secondary to missed HD/ESRD, expect improvement w/ HD. (4) Hypertension: Continue home regimen including IV lasix drip as noted, metoprolol, Norvasc, hydralazine, lisinopril, isosorbide, PRN hydralazine. (5) Hyperlipidemia: Continue home statin regimen. (6) Diabetes mellitus type II w/ Hyperglycemia: Admission glucose 568, insulin administered in the ED, HgbA1c 12.2, maintain on accu checks w/ ISS, add levemir now given presentation. (7) Morbid Obesity: Weight loss and lifestyle changes encouraged, nutrition consulted. (8) GERD: PPI. (9) SELMA: BiPAP mask provided during the hospital stay. (10) Anemia of chronic disease with ESRD, acute on chronic anemia Hgb 7.1. He received PRBC 1 unit on 10/12. Repeat CBC showed Hgb 9.0. Improvement due to 1 units PRBC transfusion and hemoconcentration after removal of free water via HD. (11) Fever. Fever spiked up to 101. Blood culture obtained. He remained afebrile past 2 days and blood cultures were negative to date. No abx was started. DVT Prophylaxis: SCDs, heparin. CODE status:Full code. Disposition: home with home care. Discharge Diet: Renal Diet Discharge Activity: Return to Normal Activity Home Medications: Medications to take at Discharge Amlodipine Besylate [Norvasc] 10 mg PO DAILY 10/11/17 Aspirin [Aspirin, Baby] 81 mg PO DAILY@0800 10/11/17 Atorvastatin Calcium [Lipitor] 20 mg PO QHS 10/11/17 Furosemide [Lasix] 40 mg PO BIDLX 10/11/17 Gabapentin [Neurontin] 100 mg PO TIDCM 10/11/17 Isosorbide Mononitrate [Imdur] 30 mg PO DAILY 10/11/17 Lisinopril [Zestril] 10 mg PO DAILY 10/11/17 Metoprolol Tartrate [Lopressor (beta khoa)] 50 mg PO BID 10/11/17 Omeprazole 40 mg PO DAILY 10/11/17 Pyridoxine HCl [Vitamin B-6] 100 mg PO DAILY 10/11/17 Sevelamer HCl [Renagel] 800 mg PO DAILY 10/11/17 Vits A,C,E/Lutein/Minerals [Ocuvite with Lutein Tablet] 1 each PO DAILY hydrALAZINE [Apresoline] 10 mg PO TID 10/11/17 Primary Care Physician: Augie Washburn MD [Primary Care Provider] - Please follow up with your Primary Care Physician in: in 5 to 7 days. Please Follow Up With: Follow up with Dialysis as scheduled Disposition: Home with Home Health Patient Condition:: Stable Medical Necessity - Tobacco Use Smoking Status: Never smoker Tobacco Use: Non-smoker Meaningful Use Info Meaningful Use Diagnoses (Choose all that apply): CHF - CHF ERICKA/ARB ordered at discharge?: Yes Documented LVEF (%): 65 Code Visit Inpatient E&M: 75682 Disch Hosp
--- NOTE | 2017-10-13 12:28 | CASEMGMT ---
SW spoke with patient regarding his emotional state. He has been depressed since his mom and his health is not getting better. SW provided emotional support. SW spoke with him about counseling and he said he would be willing to try. SW gave him a list of local counseling agencies. Spoke with him about home health and [facility]. He was in agreement with both. WILFREDO called [facility] and arranged for assisted, PT, OT, and aide. WILFREDO faxed orders, instructions, and Medicare Face to Face. WILFREDO called and let them know patient is being d/c. WILFREDO also spoke with patient and his fiance and let them know about home health and that they would be calling him to set up an appt. He thanked SW. Plan: Home with [place] assisted, PT, and OT. [facility] will also follow up with him. Agatha SHEETS MSW
--- NOTE | 2017-10-16 16:10 | CASEMGMT ---
AMIRAH BAUER DISCHARGE F/U PHONE CALL LACE: 12 STRATA: 4 CALL DATE: 10/16/17 DISCHARGE DATE: 10/13/17 TIME OF CALL: 1611 DURATION: 7 MINUTES ADM DX: ACUTE RESP FAILURE, VOLUME OVERLOAD/DIASTOLIC CHF PT STATES HAS BEEN DOING 'OK' SINCE DISCHARGE. PT STATES NO QUESTIONS REGARDING DISCHARGE INSTRUCTIONS/MEDICATIONS AT THIS TIME. PT STATES THAT C CAME TO [facility] YESTERDAY BUT STATES THAT THEY ARE UNABLE TO PROVIDE AN AIDE AT THIS TIME. THIS AMIRAH BAUER WILL F/U WITH HAMIDA VILLALOBOS WHO SET UP HHC REGARDING SAME AND THEN NOTIFY PT. PT STATES THAT HE HAS HIS TRANSPORTATION SET UP TO RETURN TO DIALYSIS TOMORROW. PT STATES THAT HE IS GOING TO CHANGE HIS F/U APPOINTMENT WITH PCP D/T APPT BEING THE SAME DAY DIALYSIS, THURSDAY 10/19. PT STATES THAT HE DID GO TO WORK ON MONDAY EVENING AFTER HE WAS DISCHARGED EARLIER THAT DAY AND STATES HE STRUGGLED A LITTLE AT WORK BUT HE WORKED THE WHOLE SHIFT. PT STATES THAT 'EVERYTHING WAS GREAT' WITH HIS CARE DURING ADMISSION BUT HE WISHES THAT THE WOULD HAVE SENT HIM HOME WITH PAIN MED, OXYCONTIN. ADVISED PT THAT HE WOULD HAVE TO F/U WITH PCP FOR THAT NOW AT THIS TIME DR. MENDOZA IS NOW OFF SHIFT THIS WEEK, VOICES UNDERSTANDING. PT STATES HE HAS NOT HEARD FROM [facility] YET AT THIS TIME. CALL TO ANG AT [facility] AND SHE STATES THAT PT WAS ASSIGNED TO YUSRA THIS AM AND THAT SHE SHOULD BE GIVING HIM A CALL. PT VOICES NO FURTHER QUESTIONS/CONCERNS AT THIS TIME. SSTATEN AMIRAH BAUER
== END 2017-10-13 12:59 | disposition home or self-care (01) | DRG 291 ==
LOC: ED 01:55 → ICU 02:11 → PCU 18:48
PROVIDERS: Internal Medicine; Internal Medicine Nephrology; Admitting Provider Family Medicine; Emergency Provider Emergency Medicine; Family Provider Internal Medicine; PCP Internal Medicine; Visit Provider Hospitalist
DX: I13.2 Hypertensive heart and chronic kidney disease with heart failure and with stage 5 chronic kidney disease, or end stage renal disease (principal); I50.33 Acute on chronic diastolic (congestive) heart failure; N18.6 End stage renal disease; J96.21 Acute and chronic respiratory failure with hypoxia; E87.2 Acidosis; Z68.42 Body mass index [BMI] 45.0-49.9, adult; E11.22 Type 2 diabetes mellitus with diabetic chronic kidney disease; D63.1 Anemia in chronic kidney disease; E11.65 Type 2 diabetes mellitus with hyperglycemia; E11.40 Type 2 diabetes mellitus with diabetic neuropathy, unspecified; G47.33 Obstructive sleep apnea (adult) (pediatric); E78.5 Hyperlipidemia, unspecified; K21.9 Gastro-esophageal reflux disease without esophagitis; R50.9 Fever, unspecified; E87.5 Hyperkalemia; E66.01 Morbid (severe) obesity due to excess calories; I36.1 Nonrheumatic tricuspid (valve) insufficiency; I25.2 Old myocardial infarction; Z99.2 Dependence on renal dialysis; Z79.4 Long term (current) use of insulin; Z91.15 Patient's noncompliance with renal dialysis; Z91.14 Patient's other noncompliance with medication regimen; Z91.19 Patient's noncompliance with other medical treatment and regimen; Z86.73 Personal history of transient ischemic attack (TIA), and cerebral infarction without residual deficits; Z79.82 Long term (current) use of aspirin; Z79.899 Other long term (current) drug therapy; Z71.3 Dietary counseling and surveillance
CPT/HCPCS: 36415; 36600; 71045; 80048; 80069; 81001; 82009; 82803; 82962; 83036; 83735; 84443; 84484; 85025; 85027; 86850; 86900; 86920; 86922; 87040; 87086; 87088; 87633; 87641; 90937; 93005; 94002; 94003; 94640; 94660; 97802; 99285; J0885; J7030; J7040; P9016; A4216; G0257; J0610

== ENCOUNTER 2017-10-27 14:07 | Inpatient (IN) | payer MEDICARE, MEDICAID, SELFPAY ==
[2017-10-27] VITALS (14 sets, daily range): BP systolic 90–144; BP diastolic 39–63; PULSE 77–98; RESP 18–24; TEMP 37.2–38.7; O2SAT 78–98; BMI 43.7
--- NOTE | 2017-10-27 14:53 | EKG12_ITS ---
Test Reason : HYPOTENSION Blood Pressure : / mmHG Vent. Rate : 093 BPM Atrial Rate : 093 BPM P-R Int : 138 ms QRS Dur : 080 ms QT Int : 364 ms P-R-T Axes : 018 005 017 degrees QTc Int : 452 ms Normal sinus rhythm Normal ECG Confirmed by COMPA ALCALA ([id number]), proposal editor DEREK KEARNS ([id number]) on 10/31/2017 4:00:09 PM Referred By: Confirmed By:COMPA ALCALA
--- NOTE | 2017-10-27 15:00 | RAD_ITS ---
STUDY: X-RAY CHEST REASON FOR EXAM: Male, 47 years old. Chest pressure, fever, nausea and vomiting starting this morning. TECHNIQUE: Single portable frontal chest. COMPARISON: October 11, 2017. FINDINGS: There is prominence of the central/perihilar interstitium. There is no pleural effusion. There is no pneumothorax. There is moderate cardiac enlargement. There is central vascular congestion. Normal visualized pulmonary arteries. Normal visualized aortic arch and descending thoracic aorta. Normal visualized thoracic spine. Normal visualized ribs, clavicles, and shoulders. There is no demonstrated abnormality of the visualized soft tissue structures of the upper abdomen. RAD/Chest 1 View (Portable) IMPRESSION: Persistent moderate cardiomegaly. Central vascular congestion. No pleural effusion. No pneumothorax. Electronically Signed: Rod Cabrera MD at 15:19 EDT , Service support ,
[2017-10-27] MEDS: Ipratropium/Albuterol Sulfate 3 ML AMPUL.NEB INHALATION (15:03)
[2017-10-27] MEDS: Acetaminophen 500 MG Tablet 1000 MG PO (15:23)
[2017-10-27 15:29] LABS: Absolute Lymphocyte Count 0.53 X10^3/ul (0.83-4.51); Absolute Neutrophil Count 13.2 X10^3/uL (2.0-7.7); Basophil# 0.02 X10^3/uL; Basophil% 0.1 % (0-1); Differential Indicated SCAN CRITERIA MET; Eosinophil# 0.01 X10^3/uL; Eosinophils% 0.1 % (0-5); Hematocrit 27.1 % (40-54); Hemoglobin 8.8 g/dl (13.0-16.5); Lymphocyte # 0.53 X10^3/ul (4.0); Lymphocyte % 3.7 % (19-41); Mean Corp Hgb Conc 32.5 g/gl (32-36); Mean Corpuscular Hgb 28.8 pg (27.0-32.0); Mean Corpuscular Volume 88.6 fL (80-94); Mean Platelet Vol. 9.8 fl (6.2-12.0); Monocyte% 4.2 % (0-10); Neutrophil # 13.21 X10^3/uL (2.7-7.7); Neutrophil % 91.6 % (47-70); POSITIVE COUNT NO; POSITIVE DIFFERENTIAL YES; POSITIVE MORPHOLOGY NO; Platelet Count 291 K/mm3 (150-450); RBC Distribution Width CV 14.1 % (11.6-14.6); Red Blood Count 3.06 M/mm3 (4.6-6.2); White Blood Count 14.4 K/mm3 (4.4-11.0)
[2017-10-27] MEDS: Ondansetron 4 MG/2 ML Vial IV (15:31)
[2017-10-27 15:36] LABS: Allen Test POS; Base Excess 3 mmol/L (-2 to +2); Bicarbonate 27.5 mmol/L (22-26); Blood Gas Specimen Type ART; O2 Delivery Device Nasal Can; PO2 64 mmHG (75-100); SITE L Radial; SO2 93 % (95-99); Time Given 1520; Total Carbon Dioxide 29 mmol/L; pCO2 40.1 mmHg (35-45); pH 7.44 (7.35-7.45)
[2017-10-27 15:45] LABS: Bacteria 0 SEEN /hpf (None Seen); Mucous, Urine 0 SEEN /hpf (<or=2+)
[2017-10-27 15:51] LABS: Color, Urine Yellow (Yellow); Glucose, Dipstick 250 mg/dl (Normal); Ketone-Dipstick Negative (Negative); Leukocyte Esterase-Dipstick 25 /ul (Negative); Nitrite-Dipstick Negative (Negative); Occult Blood-Urine 50 /ul (Negative); Protein-Dipstick 500 mg/dl (Negative); Urine Bilirubin Dipstick Negative (Negative); Urine Clarity Sl. Cloudy (Clear); Urine Urobilinogen Normal (Normal); Urine pH 6.5 (5.0 - 8.0)
[2017-10-27 16:01] LABS: Lactic Acid 1.3 mmol/L (0.4-2.0)
[2017-10-27 16:04] LABS: ALB/GLOB Ratio 0.6 RATIO (0.9-2.4); AST(SGOT) 37 U/L (15-37); Alanine Aminotransfer ALT/SGPT 23 U/L (16-61); Albumin, Serum 2.6 g/dL (3.2-5.0); Alkaline Phosphatase 78 U/L (45-117); Anion Gap 11 (5-15); BUN 56 mg/dL (7-18); BUN/Creat Ratio 11.2 RATIO (10-20); Calcium,Total 7.8 mg/dL (8.5-10.1); Chloride 96 mmol/L (98-107); Creatinine, Serum 5.02 mg/dL (0.70-1.30); EST Glomerular Filtration Rate 13 mL/min (>60); Est Glom Filt Rate - Afr Amer 16 mL/min (>60); Estimated Creatinine Clearance 16.64 ml/min; Globulin 4.3 g/dL (2.2-4.2); Glucose 306 mg/dL (74-106); Lipase 249 U/L (73-393); Potassium 4.9 mmol/L (3.5-5.1); Protein, Total 6.9 g/dL (6.4-8.2); Sodium Level 136 mmol/L (136-145)
[2017-10-27 16:20] LABS: Amorphous Sediment 1+ URATE; Red Blood Cells-Urine 5-10 SEEN /hpf (0-5); Squamous Epithelial Cells - UA 0-5 SEEN /hpf (0-5); White Blood Cells 5-10 SEEN /hpf (0-5)
--- NOTE | 2017-10-27 16:47 | ED.DCSUM_ITS ---
- ER Visit Summary Date of Service: 10/27/17 Chief Complaint: Altered mental status History of Present Illness: The patient is a 47 M who presents with altered mental status. He was well yesterday. He was difficult to wake up today. He reports chills. He initially had a fever of 103.5. He then had 3-4 episodes of nonbloody nonbilious emesis. He does report some mild chest pain as well as shortness of breath. No diarrhea. He does complain of diffuse muscle and joint aches. Physical Examination: Temperature 101.6 initial pulse ox on room air 78% respiratory rate 20 blood pressure 114/48 Patient was initially somnolent but arousable to voice no focal or lateralizing neurological deficits Moist mucous membranes Heart regular rate and rhythm Patient has some mild rales right more than left Abdomen soft Test Results: EKG shows normal sinus rhythm at a rate of 93. Influenza swab negative. Chest x-ray shows cardiomegaly and central vascular congestion. Laboratory studies notable for white blood cell count 14.4 and hemoglobin 8.8. BUN 56 creatinine 5.02. ABG shows PO2 of 64 otherwise essentially normal. Urinalysis does show 5-10 WBCs and 5-9 RBCs but no bacteria. Troponin negative. Lactic acid negative. Emergency Department Course and Treatment: Patient was empirically treated with IV Zosyn and IV vancomycin. He was given a small IV fluid bolus. He was given Tylenol. Patient was discussed with hospitalist will be admitted. We will also obtain a noncontrast CT of the chest to further evaluate for hypoxia possible pneumonia. Treatment Plan: [] Disposition: Admit Impression: Sepsis syndrome Fever of unknown origin This note was generated with [employer] dictation software. It may contain incorrect words, spelling, and punctuation that were not noted in review of the chart prior to signing ED Disposition - Plan for ED Patient: Chief Complaint: Fever Referrals: Augie Washburn MD [Primary Care Provider] -
--- NOTE | 2017-10-27 16:47 | CT_ITS ---
STUDY: CT CHEST WITHOUT CONTRAST REASON FOR EXAM: Male, 47 years old. Hypoxia, hypertension and diabetes, renal failure RADIATION DOSAGE (If Supplied By Facility): CTDIvol = ( 20.15 ) mGy, DLP = ( 730.04 ) mGycm TECHNIQUE: Transaxial imaging was performed without the administration of intravenous contrast material. Individualized dose optimization techniques were used for this CT. COMPARISON: Report of prior study of August 07, 2012 FINDINGS: There are mild streaky fibrotic or atelectatic changes of the lung bases. There is no demonstrated pleural abnormality. Cardiomegaly is present. Coronary arterial calcifications are seen. There is no pericardial effusion. There are scattered nonpathologically enlarged mediastinal nodes. Hilar regions are difficult to assess on this noncontrast study. There is no obvious hilar mass or adenopathy. There is dilatation of the main, left, and right pulmonary arteries. The main pulmonary artery measures up to 4.0 cm in diameter. Normal aorta arch and descending thoracic aorta. There are mild degenerative changes of the lower thoracic spine. There is no demonstrated abnormality of the visualized upper abdomen. CT/Chest without Contrast IMPRESSION: Mild streaky fibrotic and/or atelectatic changes of the lung bases. Cardiomegaly. Coronary arterial calcifications are seen. There are scattered nonpathologically enlarged mediastinal nodes. There is dilatation of the main, left, and right pulmonary arteries. The main pulmonary artery measures up to 4.0 cm in diameter. This may be associated with pulmonary hypertension. Mild degenerative changes of the visualized lower thoracic spine. Electronically Signed: Mauri De Leon MD at 17:51 EDT , Service support ,
[2017-10-27] MEDS: Piperacil/Tazobactam 4.5 GM in NS100 MBP IV (17:50)
--- NOTE | 2017-10-27 18:31 | HP.PCM_ITS ---
Problem List (1) Nausea and vomiting Status: Acute Qualifiers: Vomiting type: unspecified Vomiting Intractability: unspecified Qualified Code(s): R11.2 - Nausea with vomiting, unspecified (2) Fever and chills Status: Acute (3) Malaise and fatigue Status: Acute History of Present Illness Date of Admission: 10/27/17 Chief Complaint: Nausea and vomiting, chills, fever, malaise The patient is a 47 year old M seen in the emergency room at [facility] with a chief complaint of fever, chills, malaise, nausea, and vomiting occurred today. Patient's temp was 103.5 at home orally according to the patient's who is here during the time of my examination. Patient has end- stage renal disease and is on dialysis on Monday and Saturdays. Patient denies any productive cough, denies any dysuria, denies any urinary frequency, and denies any contact with any sick individuals. Workup in the emergency room included labs which showed an elevated white blood cell count of 14.4, hemoglobin was 8.8, creatinine was 5.02, BUN was 56, glucose was 306. Chest x-ray showed no evidence of infiltrate, CT scan of the chest was obtained to rule out a pneumonia which was not picked up by his chest x-ray-CT of the chest did not show evidence of pneumonic process however. Patient's urinalysis showed a few white cells and red cells but no bacteria, temp in the emergency room was 101.6. Influenza test was negative. Pulse ox on room air was low in the emergency room at 78%. Patient's pulse ox was above 90% on 3 L. Patient appears to be septic, the exact source is unknown at this time, he was given Zosyn and vancomycin in the emergency room, I have an opinion that he might have a urinary tract infection and he is not symptomatic at this time with it however. I am not sure what is causing his hypoxia, he has a past history of chronic diastolic congestive heart failure although I do not see signs of this being present on his chest x-ray. I will continue the Zosyn in the hospital, blood cultures were obtained in the emergency room, nephrology was consulted regarding his dialysis. Labs will be monitored Past Medical History Past Medical History (Chronic Problems): Chronic Problems (Last Updated 10/13/17 @ 11:27 by Cornelio Pearl MD) TIA (transient ischemic attack) (Chronic) CHF (congestive heart failure) (Chronic) Chronic respiratory failure with hypoxia (Chronic) HTN (hypertension) (Chronic) Chronic renal disease, stage IV (Chronic) Acute on chronic diastolic CHF (congestive heart failure) (Chronic) Hyperlipidemia (Chronic) Diabetic neuropathy (Chronic) Anemia (Chronic) SELMA (obstructive sleep apnea) (Chronic) Morbid obesity with BMI of 40.0-44.9, adult (Chronic) Diabetes mellitus, type II (Chronic) Renal failure (Chronic) Noncompliance (Chronic) Allergies venom-honey bee [bee venom (honey bee)] Allergy (Verified 10/27/17 14:14) Swelling sulfamethoxazole [From Bactrim] Adverse Reaction (Verified 10/27/17 14:14) Upset Stomach trimethoprim [From Bactrim] Adverse Reaction (Verified 10/27/17 14:14) Upset Stomach Home Medications: Ambulatory Orders Medication Instructions Recorded Aspirin [Aspirin, Baby] 81 mg PO DAILY@0800 10/11/17 Atorvastatin Calcium [Lipitor] 20 mg PO QHS 10/11/17 Furosemide [Lasix] 80 mg PO TID 10/11/17 Gabapentin [Neurontin] 100 mg PO TIDCM 10/11/17 Isosorbide Mononitrate [Imdur] 30 mg PO DAILY 10/11/17 Lisinopril [Zestril] 10 mg PO DAILY 10/11/17 Metoprolol Tartrate [Lopressor 50 mg PO BID 10/11/17 (beta khoa)] Omeprazole 40 mg PO DAILY 10/11/17 Pyridoxine HCl [Vitamin B-6] 100 mg PO DAILY 10/11/17 Sevelamer HCl [Renagel] 800 mg PO TID 10/11/17 Vits A,C,E/Lutein/Minerals 1 each PO DAILY 10/11/17 [Ocuvite with Lutein Tablet] Folic Acid/Vitamin B Comp W-C 1 capsule PO DAILY 10/27/17 [Nephrocaps, Renaphro] Insulin U-500 [Humulin R U-500 15 unit SC DAILY 10/27/17 ([facility])] Insulin U-500 [Humulin R U-500 22 unit SC QHS 10/27/17 ([facility])] Surgical History: tonsillectomy, - - AV fistula in right arm. Psychiatric History: No pertinent psych hx Lives: Spouse/ Significant Other Smoking Status: Never smoker Tobacco Use: Non-smoker Alcohol: None Drugs: None - *Family History Maternal History Items: Diabetes, Heart Disease, Hypertension, Renal Disease Paternal History Items: Cancer - liver, Diabetes, Heart Disease Review of Systems Constitutional: Reports: Chills, Fever, Malaise, Weakness, Fatigue. Denies: Anorexia, Night Sweats, Weight Change Eyes: Denies: Blurred vision, Cataracts, Conjunctivae Inflammation, Double vision, Drainage HEENT: Denies: Difficulty Swallowing, Dysphasia, Ear Pain, Eye Pain, Head Aches , Hearing Changes, Nasal bleeding, Nasal Congestion, Post Nasal Drip Cardiovascular: Denies: Chest Pain, Claudication, Chest Pressure, Chest Tightness, Edema, Heaviness, Light Headedness, Orthopnea, Palpitations, Paroxysmal Noc. Dyspnea, Syncope Respiratory: Denies: Cough, Hemoptysis, Pleuritic Pain, Shortness of Breath, Shortness of breath at rest, Shortness of breath upon exertion, Sputum production, Wheezing Gastrointestinal: Reports: Nausea, Vomiting. Denies: Abdominal Pain, Constipation, Diarrhea, Hematemesis, Hematochezia, Melena Genitourinary: Denies: Dysuria, Frequency, Hematuria, Hesitancy, Incontinence, Nocturia, Retention, Urgency Musculoskeletal: Denies: Back Pain, Foot Pain, Hand Pain, Joint Pain, Joint stiffness, Joint swelling, Joint Tenderness, Leg Pain Skin: Denies: Dryness, Jaundice, Pruritis, Rash Neurological: Denies: Balance problems, Blurred vision, Double vision, Slurred speech, Difficulty swallowing, Focal weakness, Headaches, Incoordination, Numbness, Tingling Psychiatric: Denies: Anxiety, Depression, Homicidal Ideations, Suicidal Ideations Endocrine: Denies: Change in Body Habitus, Heat/ Cold Intolerance, Polydipsia, Polyuria Hematologic/ Lymphatic: Denies: Adenopathy, Anemia, Easy Bruising, Easy Bleeding , Petechiae, Purpura VTE Information - Inpt Only VTE Present on Admission: No VTE Mechan Device Prophylaxis: None VTE Pharm Prophylaxis ordered?: Yes Patient Problems: Active and Suspected Problems (Last Updated 10/13/17 @ 11:27 by Cornelio Pearl MD) Nausea and vomiting (Acute) Fever and chills (Acute) Malaise and fatigue (Acute) - Physical Exam General: Alert, Oriented x3, Cooperative, No apparent distress, Well developed, Well nourished, - - Patient appears unwell HEENT: Atraumatic, PERRLA, EOMI, Normocephalic Oral: Moist Mucosa Neck: Supple, No JVD, Negative Carotid Bruits, No Nuchal Rigidity, Trachea Midline, Thyroid Normal Size and Texture Lungs: Clear to auscultation, Normal air movement, No rhonchi, No wheeze, No rales Cardiovascular: Regular rate, Regular Rhythm, Normal S1, Normal S2, No murmurs, No Ectopic Activity, PMI Normal, No rub noted, No Gallop Abdomen: Bowel Sounds Present, Soft, Non Tender, Non-Distended, Obese, No hernias noted Extremities: No clubbing, No cyanosis, No edema, Capillary Refill Less than 3 Seconds Skin: No rashes, No breakdown Musculoskeletal: No Tenderness to Palpation of Joints or Extremities Neurological: Cranial nerves II-XII grossly intact, Neuro grossly intact, Muscle tone normal, Sensory exam intact to light touch and pain, Coordination normal Psych/Mental Status: Normal Affect, Appropriate, Alert and oriented to time, place, person, mood and affect Vital Signs Temp Pulse Resp BP Pulse Ox 99.7 F H 86 19 H 107/57 L 94 10/27/17 16:52 10/27/17 16:52 10/27/17 16:52 10/27/17 16:52 10/27/17 16:52 Assessment/Plan Active and Suspected Problems (Last Updated 10/13/17 @ 11:27 by Cornelio Pearl MD) Nausea and vomiting (Acute) Fever and chills (Acute) Malaise and fatigue (Acute) #1 sepsis-etiology unclear at this point, I favor a urinary etiology at this time, patient will be admitted to PCU, IV fluids will be administered at a low rate, patient will be kept on Zosyn at this time, we will await urine and blood culture results. #2 hypoxia-etiology unclear at this point, patient's pulse ox will be monitored and oxygen will be administered #3 end-stage renal disease-nephrology will be consulted, patient will have dialysis tomorrow #4 anemia of chronic renal disease-no transfusion at this point, labs will be rechecked #5 obstructive sleep apnea-I asked the to bring in the patient's BiPAP machine, he does wear oxygen at night with the BiPAP. #6 type 2 diabetes-patient uses no regular insulin O's and his U5 100, I will place him on sliding scale insulin and not place him on insulin with each meal at this time, he will continue his U5 100 insulin while in the hospital #7 chronic diastolic congestive heart failure #8 pulmonary hypertension-mild, patient had an echocardiogram in the past which showed a slight elevation of his pulmonary artery pressure, CT scan of the chest today indicated that the patient may have pulmonary hypertension based on the size of his pulmonary artery. #9 obesity Code Visit Inpatient E&M: 79196 Init Hosp L3
[2017-10-27] MEDS: 0.9% Normal Saline 1,000 ML 75 ML IV (20:19)
[2017-10-27] MEDS: 0.9% NaCl Peripheral Flush Adult/Peds IV (20:20)
--- NOTE | 2017-10-27 23:14 | CPS ---
pt refused bipap and states he'll just wear oxygen for sleeping tonight and will have his Fiance bring in his Home Bipap for tomorrow.
[2017-10-27 23:35] LABS: Bedside Glucose 296 mg/dL (70-110)
[2017-10-27] MEDS: Atorvastatin Calcium 20 MG Tablet PO (23:35)
[2017-10-27] MEDS: Heparin Injection (Vial) 5,000 UNIT/ML VIAL 5000 UNIT SC (23:35)
[2017-10-27] MEDS: Metoprolol Tartrate 50 MG Tablet PO (23:35)
[2017-10-27] MEDS: Furosemide 80 MG Tablet PO (23:35)
[2017-10-27] MEDS: Piperacil/Tazobactam 3.375 GM/50 ML ML IV (23:36)
[2017-10-28] VITALS (16 sets, daily range): BP systolic 114–132; BP diastolic 55–78; PULSE 71–85; RESP 16–20; TEMP 36.9–38.6; O2SAT 94–98
[2017-10-28] MEDS: Ondansetron 4 MG/2 ML Vial IV (00:33)
[2017-10-28] MEDS: 0.9% NaCl Peripheral Flush Adult/Peds IV ×3 (00:33→22:21)
[2017-10-28] MEDS: proMETHazine 25 MG/ML Syringe IV (02:47)
[2017-10-28] MEDS: Acetaminophen 325 MG Tablet 650 MG PO ×3 (02:48→17:58)
[2017-10-28 03:05] LABS: Bedside Glucose 281 mg/dL (70-110)
[2017-10-28] MEDS: Piperacil/Tazobactam 3.375 GM/50 ML ML IV ×2 (05:33→22:35)
[2017-10-28] MEDS: Furosemide 80 MG Tablet PO ×2 (05:33→22:20)
[2017-10-28 06:41] LABS: Hematocrit 24.9 % (40-54); Hemoglobin 7.8 g/dl (13.0-16.5); Mean Corp Hgb Conc 31.3 g/gl (32-36); Mean Corpuscular Volume 92.6 fL (80-94); Mean Platelet Vol. 9.9 fl (6.2-12.0); Platelet Count 221 K/mm3 (150-450); RBC Distribution Width SD 45.7 fl (35.1-43.9); Red Blood Count 2.69 M/mm3 (4.6-6.2); Scan Indicated on CBC? Y/N NO
[2017-10-28 06:47] LABS: Albumin, Serum 2.5 g/dL (3.2-5.0); BUN 67 mg/dL (7-18); BUN/Creat Ratio 11.3 RATIO (10-20); Calcium,Total 7.8 mg/dL (8.5-10.1); Chloride 99 mmol/L (98-107); Creatinine, Serum 5.92 mg/dL (0.70-1.30); EST Glomerular Filtration Rate 11 mL/min (>60); Est Glom Filt Rate - Afr Amer 13 mL/min (>60); Estimated Creatinine Clearance 13.62 ml/min; Glucose 121 mg/dL (74-106); Phosphorus 5.5 mg/dL (2.5-4.9); Potassium 4.6 mmol/L (3.5-5.1); Sodium Level 138 mmol/L (136-145)
[2017-10-28 06:56] LABS: Bedside Glucose 103 mg/dL (70-110)
--- NOTE | 2017-10-28 08:13 | CASEMGMT ---
Readmission Note: recent adm 10/11/17-10/13/17 for resp failure. DC'd with [facility] nursing, PT/OT and CCN to f/u. Pt presents with fever, mild hypoxia pulse ox>90%, placed on 3L NC. Hx of hemodialysis. Blood cultures pending. PT/OT ordered. PCP:Wu DIalysis: CHRISTEN T//S. Rides through [employer] Pharmacy: [facility] DC PLAN: home with resumption of HHC. PT/OT evaluations pending. Toi NORWOODN RN ACM
[2017-10-28] MEDS: Aspirin 81 MG TAB.CHEW PO (08:29)
[2017-10-28] MEDS: Gabapentin 100 MG Capsule PO ×3 (08:30→20:48)
[2017-10-28] MEDS: SEVELAMER CARBONATE 800 MG TABLET PO ×3 (08:30→20:49)
[2017-10-28] MEDS: Pyridoxine HCl 100 MG Tablet PO (08:31)
[2017-10-28] MEDS: Pantoprazole Sodium 40 MG Tablet PO (08:31)
[2017-10-28] MEDS: Folic Acid/Vitamin B Comp W-C 1 Capsule 1 CAP PO (08:31)
--- NOTE | 2017-10-28 09:43 | PCM.PROGNOTE ---
Patient Problems: Active and Suspected Problems (Last Updated 10/27/17 @ 19:34 by Anca Gregorio DO) Nausea and vomiting (Acute) Fever and chills (Acute) Malaise and fatigue (Acute) Subjective: Patient was seen and examined today, he has gram-positive cocci in the blood stream in clusters, patient will undergo dialysis today, I will place him on vancomycin after dialysis today, patient still complains of fatigue but otherwise has no complaints. - Physical Exam General: Alert, Oriented x3, Cooperative, No apparent distress, Well developed, Well nourished HEENT: Atraumatic, PERRLA, EOMI, Normocephalic Oral: Moist Mucosa Neck: Supple, No JVD, Negative Carotid Bruits, No Nuchal Rigidity, Trachea Midline, Thyroid Normal Size and Texture Lungs: Clear to auscultation, Normal air movement, No rhonchi, No wheeze, No rales Cardiovascular: Regular rate, Regular Rhythm, Normal S1, Normal S2, No murmurs, No Ectopic Activity, PMI Normal, No rub noted, No Gallop Abdomen: Bowel Sounds Present, Soft, Non Tender, Non-Distended, Obese, No hernias noted Extremities: No clubbing, No cyanosis, No edema, Capillary Refill Less than 3 Seconds Skin: No rashes, No breakdown Musculoskeletal: No Tenderness to Palpation of Joints or Extremities Neurological: Cranial nerves II-XII grossly intact, Neuro grossly intact, Muscle tone normal, Sensory exam intact to light touch and pain, Coordination normal Psych/Mental Status: Normal Affect, Appropriate, Alert and oriented to time, place, person, mood and affect Vital Signs Temp Pulse Resp BP Pulse Ox 99.4 F H 71 18 132/65 H 96 10/28/17 05:42 10/28/17 07:09 10/28/17 05:42 10/28/17 05:42 10/28/17 06:44 Oxygen Flow Rate (L/min) 3 Oxygen Delivery Method Nasal Cannula Weight: 122.8 kg Body Mass Index (BMI) 43.7 Intake and Output for Last 24 Hours 10/26/17 10/27/17 10/28/17 23:59 23:59 23:59 Intake Total 1574 / 1574 741 / 741 Output Total 350 / 350 Balance 1574 / 1574 391 / 391 Laboratory Tests Past 24 Hrs 10/28/17 10/28/17 06:08 06:08 WBC 9.0 RBC 2.69 L Hgb 7.8 L Hct 24.9 L MCV 92.6 MCH 29.0 MCHC 31.3 L RDW 14.0 RDW Differential 45.7 H Plt Count 221 MPV 9.9 Sodium 138 Potassium 4.6 Chloride 99 Carbon Dioxide 28.0 BUN 67 H Creatinine 5.92 H Estim Creat Clear Calc 13.62 Est GFR (MDRD) Af Amer 13 L Est GFR (MDRD) Non-Af 11 L BUN/Creatinine Ratio 11.3 Glucose 121 H Calcium 7.8 L Phosphorus 5.5 H Albumin 2.5 L POC Glucose 10/28/17 10/28/17 10/27/17 06:45 02:58 23:29 POC Glucose 103 281 H 296 H Medical Necessity - Tobacco Use Smoking Status: Never smoker Tobacco Use: Non-smoker Assessment/Plan Active and Suspected Problems (Last Updated 10/27/17 @ 19:34 by Anca Gregorio DO) Nausea and vomiting (Acute) Fever and chills (Acute) Malaise and fatigue (Acute) #1 sepsis-etiology unclear at this point, due to gram-positive bacteria-favor staph, patient will receive vancomycin again after dialysis today, I will keep the patient on Zosyn for the time being until final culture results are back, day #2 Zosyn and vancomycin #2 hypoxia-etiology unclear at this point, patient's pulse ox will be monitored and oxygen will be administered, patient is currently on 3 L via nasal cannula #3 end-stage renal disease-patient will have dialysis today #4 anemia of chronic renal disease-no transfusion at this point, hemoglobin slightly lower today #5 obstructive sleep apnea-continue BiPAP when sleeping #6 type 2 diabetes-continue sliding scale insulin in addition to his U-500 regular insulin, I do not feel the patient needs insulin with meals at this time #7 chronic diastolic congestive heart failure #8 pulmonary hypertension-mild, patient had an echocardiogram in the past which showed a slight elevation of his pulmonary artery pressure, CT scan of the chest today indicated that the patient may have pulmonary hypertension based on the size of his pulmonary artery. #9 obesity Code Visit Inpatient E&M: 97235 Subs Hosp L2
--- NOTE | 2017-10-28 10:16 | PCM.CONS.R ---
Consultation - Renal 10/28/17 PCP/ Referring MD: Requesting physician: Pérez Lee Primary care physician: Augie Washburn Reason for Consultation:: ESRD dialysis mgmt - History of Present Illness History of Present Illness: The patient is a 47 year old morbidly obese M seen in the emergency room at [facility] with a chief complaint of fever, chills, malaise, nausea, and vomiting for 1 day. Patient's temp was 103.5 at home according to the patient's girlfriend. His last dialysis was without report of a fever. He is on HD TTS. He has end-stage renal disease from noncompliance with diabetes and hypertension. He has a history of noncompliance with dialysis treatments with massive fluid gains between treatments of 6-12kg. Patient denied productive cough, dysuria. In ER his WBC was elevated at 14.4, hemoglobin was 8.8, creatinine was 5.02, BUN was 56, glucose was 306. Chest x-ray showed no evidence of infiltrate, CT scan of the chest was obtained to rule out pneumonia. In the emergency room temp was 101.6. Influenza test was negative. Pulse ox on room air was low in the emergency room at 78%. Patient's pulse ox was above 90% on 3 L. Blood cx 1 set showed GPC, He was given Zosyn and vancomycin in the emergency room. - Allergies Allergies: Allergies venom-honey bee [bee venom (honey bee)] Allergy (Verified 10/27/17 14:14) Swelling sulfamethoxazole [From Bactrim] Adverse Reaction (Verified 10/27/17 14:14) Upset Stomach trimethoprim [From Bactrim] Adverse Reaction (Verified 10/27/17 14:14) Upset Stomach - Current Medications Current Medications: Current Medications Acetaminophen (Tylenol) 650 mg PO Q6H PRN PRN PRN Reason: Mild Pain (1-3)/Temp > 100.7 F Last Admin: 10/28/17 02:48 Dose: 650 mg Aspirin (Aspirin, Baby) 81 mg PO DAILY@0800 [facility] Last Admin: 10/28/17 08:29 Dose: 81 mg Atorvastatin Calcium (Lipitor) 20 mg PO QHS [facility] Last Admin: 10/27/17 23:35 Dose: 20 mg Dextrose (D50w Syringe) 0 gm IV X1 PRN; Protocol PRN Reason: Hypoglycemia Furosemide (Lasix) 80 mg PO TID [facility] Last Admin: 10/28/17 05:33 Dose: 80 mg Gabapentin (Neurontin) 100 mg PO TIDCM [facility] Last Admin: 10/28/17 08:30 Dose: 100 mg Glucagon () 1 mg IM .X1 PRN PRN Reason: Hypoglycemia Heparin Sodium (Porcine) (Heparin Na) 5,000 unit SC Q12 [facility] Last Admin: 10/27/17 23:35 Dose: 500 u Vancomycin HCl (Vancomycin) 1,000 mg in 200 mls @ 200 mls/hr IV X1 ONE Stop: 10/28/17 17:59 Piperacillin Sod/Tazobactam Sod (Zosyn) 3.375 gm in 50 mls @ 12.5 mls/hr IV Q12 [facility] Insulin Aspart (Novolog Flexpen (Bkc)) 0 units SC ACHS [facility] PRN Reason: Protocol Last Admin: 10/28/17 08:29 Dose: Not Given Insulin Human Regular (Humulin R U-500 (Bkc)) 0.15 ml SC BREAKFAST [facility] Last Admin: 10/28/17 08:44 Dose: 50 units Insulin Human Regular (Humulin R U-500 (Bkc)) 0.22 ml SC QHS [facility] Last Admin: 10/27/17 23:48 Dose: 0.22 ml Isosorbide Mononitrate (Imdur) 30 mg PO DAILY [facility] Lisinopril (Zestril) 10 mg PO DAILY [facility] Metoprolol Tartrate (Lopressor (Beta Emmanuel)) 50 mg PO BID [facility] Last Admin: 10/27/17 23:35 Dose: 50 mg Multivit/Ca Carb/B Cmplx/FA/Prenat (Nephrocaps, Renaphro) 1 capsule PO DAILY [facility] Last Admin: 10/28/17 08:31 Dose: 1 capsule Ondansetron HCl (Zofran) 4 mg IV Q6H PRN PRN PRN Reason: NAUSEA Last Admin: 10/28/17 00:33 Dose: 4 mg Pantoprazole Sodium (Protonix) 40 mg PO DAILY [facility] Last Admin: 10/28/17 08:31 Dose: 40 mg Promethazine HCl (Phenergan) 12.5 mg IV Q4H PRN PRN PRN Reason: NAUSEA/VOMITING Pyridoxine HCl (Vitamin B-6) 100 mg PO DAILY@0800 [facility] Last Admin: 10/28/17 08:31 Dose: 100 mg Sevelamer Carbonate (Renvela) 800 mg PO TIDCM [facility] Last Admin: 10/28/17 08:30 Dose: 800 mg Sodium Chloride () 5 - 30 ml IV UD PRN PRN Reason: SALINE FLUSH Last Admin: 10/28/17 02:47 Dose: 10 ml - Past Medical History Past Medical History (Chronic Problems): Chronic Problems (Last Updated 10/27/17 @ 19:34 by Anca Gregorio DO) Morbid obesity with BMI of 40.0-44.9, adult (Chronic) Diabetes mellitus, type II (Chronic) Renal failure (Chronic) Noncompliance (Chronic) CHF (congestive heart failure) (Chronic) TIA (transient ischemic attack) (Chronic) Chronic respiratory failure with hypoxia (Chronic) HTN (hypertension) (Chronic) Acute on chronic diastolic CHF (congestive heart failure) (Chronic) Hyperlipidemia (Chronic) Diabetic neuropathy (Chronic) Anemia (Chronic) SELMA (obstructive sleep apnea) (Chronic) - Past Surgical History Surgical History: tonsillectomy, - - AV fistula in right arm. - Social History Smoking Status: Never smoker Alcohol: None Drugs: None - Family History Maternal Family History: Family History (Last Reviewed 09/25/17 @ 11:29 by Claudette Cheek) Mother Hypertension Heart disease Diabetes Father Hypertension Heart disease Brother Heart disease History Items: Diabetes, Heart Disease, Hypertension, Renal Disease Paternal Family History: Family History (Last Reviewed 09/25/17 @ 11:29 by Claudette Cheek) Mother Hypertension Heart disease Diabetes Father Hypertension Heart disease Brother Heart disease History Items: Cancer - liver, Diabetes, Heart Disease Review of Systems Constitutional: Reports: Chills, Fever. Denies: Anorexia Cardiovascular: Denies: Chest Pain Respiratory: Denies: Cough, Shortness of Breath Gastrointestinal: Reports: Nausea, - - dry heaves. Denies: Abdominal Pain, Constipation, Diarrhea Genitourinary: Denies: Dysuria Musculoskeletal: Reports: - - chronic swelling Neurological: Denies: Balance problems Hematologic/ Lymphatic: Reports: Anemia Patient Problems: Active and Suspected Problems (Last Updated 10/27/17 @ 19:34 by Anca Gregorio DO) Nausea and vomiting (Acute) Fever and chills (Acute) Malaise and fatigue (Acute) - Physical Exam General: Alert, Oriented x3, Cooperative, No apparent distress HEENT: PERRLA, EOMI Oral: Moist Mucosa Lungs: Clear to auscultation Cardiovascular: Regular rate Abdomen: Bowel Sounds Present, Soft, Non Tender, Non-Distended, Obese Extremities: Edema - mild BLE Skin: No rashes Musculoskeletal: No Muscle Wasting Neurological: Cranial nerves II-XII grossly intact Psych/Mental Status: Alert and oriented to time, place, person, mood and affect Vital Signs Temp Pulse Resp BP Pulse Ox 99.4 F H 71 18 132/65 H 96 10/28/17 05:42 10/28/17 07:09 10/28/17 05:42 10/28/17 05:42 10/28/17 06:44 Oxygen Flow Rate (L/min) 3 Oxygen Delivery Method Nasal Cannula Weight: 122.8 kg Body Mass Index (BMI) 43.7 Intake and Output for Last 24 Hours 10/26/17 10/27/17 10/28/17 23:59 23:59 23:59 Intake Total 1574 / 1574 741 / 741 Output Total 350 / 350 Balance 1574 / 1574 391 / 391 Laboratory Tests Past 24 Hrs 10/28/17 10/28/17 06:08 06:08 WBC 9.0 RBC 2.69 L Hgb 7.8 L Hct 24.9 L MCV 92.6 MCH 29.0 MCHC 31.3 L RDW 14.0 RDW Differential 45.7 H Plt Count 221 MPV 9.9 Sodium 138 Potassium 4.6 Chloride 99 Carbon Dioxide 28.0 BUN 67 H Creatinine 5.92 H Estim Creat Clear Calc 13.62 Est GFR (MDRD) Af Amer 13 L Est GFR (MDRD) Non-Af 11 L BUN/Creatinine Ratio 11.3 Glucose 121 H Calcium 7.8 L Phosphorus 5.5 H Albumin 2.5 L POC Glucose 10/28/17 10/28/17 10/27/17 06:45 02:58 23:29 POC Glucose 103 281 H 296 H Clinical Impression(s) from Imaging Studies Chest X-Ray 10/27/17 15:00 IMPRESSION: Persistent moderate cardiomegaly. Central vascular congestion. No pleural effusion. No pneumothorax. Electronically Signed: Rod Cabrera MD at 15:19 EDT , Service support , Chest CT 10/27/17 16:47 IMPRESSION: Mild streaky fibrotic and/or atelectatic changes of the lung bases. Cardiomegaly. Coronary arterial calcifications are seen. There are scattered nonpathologically enlarged mediastinal nodes. There is dilatation of the main, left, and right pulmonary arteries. The main pulmonary artery measures up to 4.0 cm in diameter. This may be associated with pulmonary hypertension. Mild degenerative changes of the visualized lower thoracic spine. Electronically Signed: Mauri De Leon MD at 17:51 EDT , Service support , Assessment/Plan Active and Suspected Problems (Last Updated 10/27/17 @ 19:34 by Anca Gregorio DO) Nausea and vomiting (Acute) Fever and chills (Acute) Malaise and fatigue (Acute) 1. ESRD HD today, continue chronic orders 2. Sepsis with fever, leukocytosis, Bacteremia with GPC on 1 set cx yesterday. Repeat on dialysis today. Renal dose Zosyn. Check random vanco level today and redose if level <20. WBC improving 3. Noncompliance with medical tx, high fluid gains, dialysis treatments, dietary. Stop iv fluids 4. HTN stable 5. DM2 primary care mgmt 6. Anemia of chronic disease. Epo on dialysis. PRBC as needed 7. Morbid obesity/sleep apnea.
--- NOTE | 2017-10-28 10:22 | CON.PCM_ITS ---
Consultation - Renal 10/28/17 PCP/ Referring MD: Requesting physician: Pérez Lee Primary care physician: Augie Washburn Reason for Consultation:: ESRD dialysis mgmt - History of Present Illness History of Present Illness: The patient is a 47 year old morbidly obese M seen in the emergency room at [facility] with a chief complaint of fever, chills, malaise, nausea, and vomiting for 1 day. Patient's temp was 103.5 at home according to the patient's girlfriend. His last dialysis was without report of a fever. He is on HD TTS. He has end-stage renal disease from noncompliance with diabetes and hypertension. He has a history of noncompliance with dialysis treatments with massive fluid gains between treatments of 6-12kg. Patient denied productive cough, dysuria. In ER his WBC was elevated at 14.4, hemoglobin was 8.8, creatinine was 5.02, BUN was 56, glucose was 306. Chest x-ray showed no evidence of infiltrate, CT scan of the chest was obtained to rule out pneumonia. In the emergency room temp was 101.6. Influenza test was negative. Pulse ox on room air was low in the emergency room at 78%. Patient's pulse ox was above 90% on 3 L. Blood cx 1 set showed GPC, He was given Zosyn and vancomycin in the emergency room. - Allergies Allergies: Allergies venom-honey bee [bee venom (honey bee)] Allergy (Verified 10/27/17 14:14) Swelling sulfamethoxazole [From Bactrim] Adverse Reaction (Verified 10/27/17 14:14) Upset Stomach trimethoprim [From Bactrim] Adverse Reaction (Verified 10/27/17 14:14) Upset Stomach - Current Medications Current Medications: Current Medications Acetaminophen (Tylenol) 650 mg PO Q6H PRN PRN PRN Reason: Mild Pain (1-3)/Temp > 100.7 F Last Admin: 10/28/17 02:48 Dose: 650 mg Aspirin (Aspirin, Baby) 81 mg PO DAILY@0800 [facility] Last Admin: 10/28/17 08:29 Dose: 81 mg Atorvastatin Calcium (Lipitor) 20 mg PO QHS [facility] Last Admin: 10/27/17 23:35 Dose: 20 mg Dextrose (D50w Syringe) 0 gm IV X1 PRN; Protocol PRN Reason: Hypoglycemia Furosemide (Lasix) 80 mg PO TID [facility] Last Admin: 10/28/17 05:33 Dose: 80 mg Gabapentin (Neurontin) 100 mg PO TIDCM [facility] Last Admin: 10/28/17 08:30 Dose: 100 mg Glucagon () 1 mg IM .X1 PRN PRN Reason: Hypoglycemia Heparin Sodium (Porcine) (Heparin Na) 5,000 unit SC Q12 [facility] Last Admin: 10/27/17 23:35 Dose: 500 u Vancomycin HCl (Vancomycin) 1,000 mg in 200 mls @ 200 mls/hr IV X1 ONE Stop: 10/28/17 17:59 Piperacillin Sod/Tazobactam Sod (Zosyn) 3.375 gm in 50 mls @ 12.5 mls/hr IV Q12 [facility] Insulin Aspart (Novolog Flexpen (Bkc)) 0 units SC ACHS [facility] PRN Reason: Protocol Last Admin: 10/28/17 08:29 Dose: Not Given Insulin Human Regular (Humulin R U-500 (Bkc)) 0.15 ml SC BREAKFAST [facility] Last Admin: 10/28/17 08:44 Dose: 50 units Insulin Human Regular (Humulin R U-500 (Bkc)) 0.22 ml SC QHS [facility] Last Admin: 10/27/17 23:48 Dose: 0.22 ml Isosorbide Mononitrate (Imdur) 30 mg PO DAILY [facility] Lisinopril (Zestril) 10 mg PO DAILY [facility] Metoprolol Tartrate (Lopressor (Beta Emmanuel)) 50 mg PO BID [facility] Last Admin: 10/27/17 23:35 Dose: 50 mg Multivit/Ca Carb/B Cmplx/FA/Prenat (Nephrocaps, Renaphro) 1 capsule PO DAILY [facility] Last Admin: 10/28/17 08:31 Dose: 1 capsule Ondansetron HCl (Zofran) 4 mg IV Q6H PRN PRN PRN Reason: NAUSEA Last Admin: 10/28/17 00:33 Dose: 4 mg Pantoprazole Sodium (Protonix) 40 mg PO DAILY [facility] Last Admin: 10/28/17 08:31 Dose: 40 mg Promethazine HCl (Phenergan) 12.5 mg IV Q4H PRN PRN PRN Reason: NAUSEA/VOMITING Pyridoxine HCl (Vitamin B-6) 100 mg PO DAILY@0800 [facility] Last Admin: 10/28/17 08:31 Dose: 100 mg Sevelamer Carbonate (Renvela) 800 mg PO TIDCM [facility] Last Admin: 10/28/17 08:30 Dose: 800 mg Sodium Chloride () 5 - 30 ml IV UD PRN PRN Reason: SALINE FLUSH Last Admin: 10/28/17 02:47 Dose: 10 ml - Past Medical History Past Medical History (Chronic Problems): Chronic Problems (Last Updated 10/27/17 @ 19:34 by Anca Gregorio DO) Morbid obesity with BMI of 40.0-44.9, adult (Chronic) Diabetes mellitus, type II (Chronic) Renal failure (Chronic) Noncompliance (Chronic) CHF (congestive heart failure) (Chronic) TIA (transient ischemic attack) (Chronic) Chronic respiratory failure with hypoxia (Chronic) HTN (hypertension) (Chronic) Acute on chronic diastolic CHF (congestive heart failure) (Chronic) Hyperlipidemia (Chronic) Diabetic neuropathy (Chronic) Anemia (Chronic) SELMA (obstructive sleep apnea) (Chronic) - Past Surgical History Surgical History: tonsillectomy, - - AV fistula in right arm. - Social History Smoking Status: Never smoker Alcohol: None Drugs: None - Family History Maternal Family History: Family History (Last Reviewed 09/25/17 @ 11:29 by Claudette Cheek) Mother Hypertension Heart disease Diabetes Father Hypertension Heart disease Brother Heart disease History Items: Diabetes, Heart Disease, Hypertension, Renal Disease Paternal Family History: Family History (Last Reviewed 09/25/17 @ 11:29 by Claudette Cheek) Mother Hypertension Heart disease Diabetes Father Hypertension Heart disease Brother Heart disease History Items: Cancer - liver, Diabetes, Heart Disease Review of Systems Constitutional: Reports: Chills, Fever. Denies: Anorexia Cardiovascular: Denies: Chest Pain Respiratory: Denies: Cough, Shortness of Breath Gastrointestinal: Reports: Nausea, - - dry heaves. Denies: Abdominal Pain, Constipation, Diarrhea Genitourinary: Denies: Dysuria Musculoskeletal: Reports: - - chronic swelling Neurological: Denies: Balance problems Hematologic/ Lymphatic: Reports: Anemia Patient Problems: Active and Suspected Problems (Last Updated 10/27/17 @ 19:34 by Anca Gregorio DO) Nausea and vomiting (Acute) Fever and chills (Acute) Malaise and fatigue (Acute) - Physical Exam General: Alert, Oriented x3, Cooperative, No apparent distress HEENT: PERRLA, EOMI Oral: Moist Mucosa Lungs: Clear to auscultation Cardiovascular: Regular rate Abdomen: Bowel Sounds Present, Soft, Non Tender, Non-Distended, Obese Extremities: Edema - mild BLE Skin: No rashes Musculoskeletal: No Muscle Wasting Neurological: Cranial nerves II-XII grossly intact Psych/Mental Status: Alert and oriented to time, place, person, mood and affect Vital Signs Temp Pulse Resp BP Pulse Ox 99.4 F H 71 18 132/65 H 96 10/28/17 05:42 10/28/17 07:09 10/28/17 05:42 10/28/17 05:42 10/28/17 06:44 Oxygen Flow Rate (L/min) 3 Oxygen Delivery Method Nasal Cannula Weight: 122.8 kg Body Mass Index (BMI) 43.7 Intake and Output for Last 24 Hours 10/26/17 10/27/17 10/28/17 23:59 23:59 23:59 Intake Total 1574 / 1574 741 / 741 Output Total 350 / 350 Balance 1574 / 1574 391 / 391 Laboratory Tests Past 24 Hrs 10/28/17 10/28/17 06:08 06:08 WBC 9.0 RBC 2.69 L Hgb 7.8 L Hct 24.9 L MCV 92.6 MCH 29.0 MCHC 31.3 L RDW 14.0 RDW Differential 45.7 H Plt Count 221 MPV 9.9 Sodium 138 Potassium 4.6 Chloride 99 Carbon Dioxide 28.0 BUN 67 H Creatinine 5.92 H Estim Creat Clear Calc 13.62 Est GFR (MDRD) Af Amer 13 L Est GFR (MDRD) Non-Af 11 L BUN/Creatinine Ratio 11.3 Glucose 121 H Calcium 7.8 L Phosphorus 5.5 H Albumin 2.5 L POC Glucose 10/28/17 10/28/17 10/27/17 06:45 02:58 23:29 POC Glucose 103 281 H 296 H Clinical Impression(s) from Imaging Studies Chest X-Ray 10/27/17 15:00 IMPRESSION: Persistent moderate cardiomegaly. Central vascular congestion. No pleural effusion. No pneumothorax. Electronically Signed: Rod Cabrera MD at 15:19 EDT , Service support , Chest CT 10/27/17 16:47 IMPRESSION: Mild streaky fibrotic and/or atelectatic changes of the lung bases. Cardiomegaly. Coronary arterial calcifications are seen. There are scattered nonpathologically enlarged mediastinal nodes. There is dilatation of the main, left, and right pulmonary arteries. The main pulmonary artery measures up to 4.0 cm in diameter. This may be associated with pulmonary hypertension. Mild degenerative changes of the visualized lower thoracic spine. Electronically Signed: Mauri De Leon MD at 17:51 EDT , Service support , Assessment/Plan Active and Suspected Problems (Last Updated 10/27/17 @ 19:34 by Anca Gregorio DO) Nausea and vomiting (Acute) Fever and chills (Acute) Malaise and fatigue (Acute) 1. ESRD HD today, continue chronic orders 2. Sepsis with fever, leukocytosis, Bacteremia with GPC on 1 set cx yesterday. Repeat on dialysis today. Renal dose Zosyn. Check random vanco level today and redose if level <20. WBC improving 3. Noncompliance with medical tx, high fluid gains, dialysis treatments, dietary. Stop iv fluids 4. HTN stable 5. DM2 primary care mgmt 6. Anemia of chronic disease. Epo on dialysis. PRBC as needed 7. Morbid obesity/sleep apnea.
[2017-10-28] MEDS: BENZOCAINE/MENTHOL 1 LOZENGE MUCOUS MEM (11:43)
[2017-10-28 11:55] LABS: Bedside Glucose 126 mg/dL (70-110)
[2017-10-28] MEDS: Heparin 10,000 UNITS/10 ML Vial 8000 UNITS IV (15:40)
[2017-10-28 16:26] LABS: Bedside Glucose 154 mg/dL (70-110)
--- NOTE | 2017-10-28 20:18 | DIALYSIS ---
Hemodialysis completed. -5000ml removed. cramping with attempt to pull more fluid. Hemostasis obtained. report to Irena MACARIO
[2017-10-28] MEDS: Isosorbide Mononitrate 30 MG Tablet PO (20:48)
[2017-10-28] MEDS: Lisinopril 10 MG Tablet PO (20:49)
[2017-10-28] MEDS: Heparin Injection (Vial) 5,000 UNIT/ML VIAL 5000 UNIT SC (22:18)
[2017-10-28] MEDS: Metoprolol Tartrate 50 MG Tablet PO (22:19)
[2017-10-28] MEDS: Atorvastatin Calcium 20 MG Tablet PO (22:20)
[2017-10-28] MEDS: proMETHazine 25 MG/ML Syringe 12.5 MG IV (22:20)
[2017-10-28 22:51] LABS: Bedside Glucose 238 mg/dL (70-110)
[2017-10-29] VITALS (15 sets, daily range): BP systolic 96–134; BP diastolic 41–66; PULSE 63–73; RESP 16–18; TEMP 36.6–37.2; O2SAT 94–98
[2017-10-29] MEDS: Acetaminophen 325 MG Tablet 650 MG PO (04:58)
[2017-10-29] MEDS: Furosemide 80 MG Tablet PO (05:00)
[2017-10-29 07:31] LABS: Bedside Glucose 90 mg/dL (70-110)
[2017-10-29] MEDS: Aspirin 81 MG TAB.CHEW PO (08:36)
[2017-10-29] MEDS: Gabapentin 100 MG Capsule PO ×3 (08:37→17:09)
[2017-10-29] MEDS: Pyridoxine HCl 100 MG Tablet PO (08:37)
[2017-10-29] MEDS: SEVELAMER CARBONATE 800 MG TABLET PO ×3 (08:37→17:09)
[2017-10-29] MEDS: Lisinopril 10 MG Tablet PO (10:55)
[2017-10-29] MEDS: Folic Acid/Vitamin B Comp W-C 1 Capsule 1 CAP PO (10:55)
[2017-10-29] MEDS: Isosorbide Mononitrate 30 MG Tablet PO (10:55)
[2017-10-29] MEDS: Heparin Injection (Vial) 5,000 UNIT/ML VIAL 5000 UNIT SC ×2 (10:55→22:45)
[2017-10-29] MEDS: Pantoprazole Sodium 40 MG Tablet PO (10:55)
[2017-10-29] MEDS: Metoprolol Tartrate 50 MG Tablet PO (10:55)
[2017-10-29] MEDS: HYDROcodone Bitartrate/Apap 5/325 Tablet PO ×3 (11:51→23:00)
[2017-10-29 12:30] LABS: Bedside Glucose 149 mg/dL (70-110)
--- NOTE | 2017-10-29 12:31 | PCM.PROGNOTE ---
Patient Problems: Active and Suspected Problems (Last Updated 10/27/17 @ 19:34 by Anca Gregorio DO) Nausea and vomiting (Acute) Fever and chills (Acute) Malaise and fatigue (Acute) Subjective: Patient was seen and examined today, one blood culture grew out coag negative staph which appears to be staph epidermidis, this was read out as possible skin contamination. Patient is afebrile, he is doing well. - Physical Exam General: Alert, Oriented x3, Cooperative, No apparent distress HEENT: Atraumatic, PERRLA, EOMI, Normocephalic Oral: Moist Mucosa Neck: Supple, No JVD, No Nuchal Rigidity, Trachea Midline, Thyroid Normal Size and Texture Lungs: Clear to auscultation, Normal air movement, No rhonchi, No wheeze, No rales Cardiovascular: Regular rate, Regular Rhythm, Normal S1, Normal S2, No murmurs, No Ectopic Activity, PMI Normal, No rub noted, No Gallop Abdomen: Bowel Sounds Present, Soft, Non Tender, Non-Distended, Obese Extremities: Capillary Refill Less than 3 Seconds Skin: No rashes, No breakdown Neurological: Cranial nerves II-XII grossly intact, Neuro grossly intact, Sensory exam intact to light touch and pain, Coordination normal Psych/Mental Status: Normal Affect, Appropriate, Alert and oriented to time, place, person, mood and affect Vital Signs Temp Pulse Resp BP Pulse Ox 98.1 F 68 16 98/51 L 98 10/29/17 10:45 10/29/17 10:55 10/29/17 10:45 10/29/17 10:45 10/29/17 10:45 Oxygen Flow Rate (L/min) 3 Oxygen Delivery Method Nasal Cannula Weight: 122.8 kg Body Mass Index (BMI) 43.7 Intake and Output for Last 24 Hours 10/27/17 10/28/17 10/29/17 23:59 23:59 23:59 Intake Total 1574 / 1574 2539 / 2539 402.7 / 402.7 Output Total 5650 / 5650 100 / 100 Balance 1574 / 1574 -3111 / -3111 302.7 / 302.7 POC Glucose 10/29/17 10/29/17 10/28/17 11:57 07:25 22:13 POC Glucose 149 H 90 238 H 10/28/17 16:14 POC Glucose 154 H Medical Necessity - Tobacco Use Smoking Status: Never smoker Tobacco Use: Non-smoker Assessment/Plan Active and Suspected Problems (Last Updated 10/27/17 @ 19:34 by Anca Gregorio DO) Nausea and vomiting (Acute) Fever and chills (Acute) Malaise and fatigue (Acute) #1 sepsis-etiology unclear at this point, positive blood culture may be a skin contaminant. Patient remains on Zosyn and vancomycin for now, I will have infectious diseases see the patient tomorrow #2 hypoxia-etiology unclear at this point, patient's oxygen is being weaned today, I expect he will be off oxygen #3 end-stage renal disease-patient will have dialysis today #4 anemia of chronic renal disease-no transfusion at this point, hemoglobin slightly lower today #5 obstructive sleep apnea-continue BiPAP when sleeping #6 type 2 diabetes-continue sliding scale insulin in addition to his U-500 regular insulin, I do not feel the patient needs insulin with meals at this time #7 chronic diastolic congestive heart failure #8 pulmonary hypertension-mild, patient had an echocardiogram in the past which showed a slight elevation of his pulmonary artery pressure, CT scan of the chest today indicated that the patient may have pulmonary hypertension based on the size of his pulmonary artery. #9 obesity Code Visit Inpatient E&M: 38285 Subs Hosp L2
[2017-10-29] MEDS: Piperacil/Tazobactam 3.375 GM/50 ML ML IV ×2 (12:51→22:46)
--- NOTE | 2017-10-29 12:51 | NURSING ---
Patient IV found to be leaking and tender. IV removed. This nurse made one attempt to patient left forearm with a 22g angiocatheter. Attempt unsuccessful. Annabella Mary RN also made one attempt to patient left hand that was unsuccessful. Patient has a fistula to the right arm. Therefore [facility] [employer] supervisor was contacted and was able to gain access with a 22g angiocatheter to patients left shoulder. IV antibiotic started.
[2017-10-29 17:05] LABS: Bedside Glucose 179 mg/dL (70-110)
[2017-10-29] MEDS: Atorvastatin Calcium 20 MG Tablet PO (23:00)
[2017-10-29 23:26] LABS: Bedside Glucose 169 mg/dL (70-110)
[2017-10-30] VITALS (14 sets, daily range): BP systolic 97–134; BP diastolic 54–72; PULSE 65–75; RESP 16–18; TEMP 36.4–37.1; O2SAT 94–97
[2017-10-30] MEDS: Furosemide 40 MG Tablet PO (05:28)
[2017-10-30 06:44] LABS: Absolute Lymphocyte Count 1.24 X10^3/ul (0.83-4.51); Absolute Neutrophil Count 4.4 X10^3/uL (2.0-7.7); Basophil# 0.04 X10^3/uL; Basophil% 0.6 % (0-1); Eosinophil# 0.42 X10^3/uL; Eosinophils% 5.9 % (0-5); Hematocrit 27.4 % (40-54); Hemoglobin 8.6 g/dl (13.0-16.5); Lymphocyte # 1.24 X10^3/ul (4.0); Lymphocyte % 17.5 % (19-41); Mean Corp Hgb Conc 31.4 g/gl (32-36); Mean Corpuscular Hgb 28.2 pg (27.0-32.0); Mean Corpuscular Volume 89.8 fL (80-94); Mean Platelet Vol. 9.8 fl (6.2-12.0); Monocyte% 12.7 % (0-10); Neutrophil # 4.43 X10^3/uL (2.7-7.7); Neutrophil % 62.6 % (47-70); Platelet Count 298 K/mm3 (150-450); RBC Distribution Width CV 14.5 % (11.6-14.6); RBC Distribution Width SD 47.8 fl (35.1-43.9); Red Blood Count 3.05 M/mm3 (4.6-6.2); White Blood Count 7.1 K/mm3 (4.4-11.0)
[2017-10-30 06:45] LABS: POSITIVE COUNT NO; POSITIVE DIFFERENTIAL NO; POSITIVE MORPHOLOGY NO
[2017-10-30 06:47] LABS: Albumin, Serum 2.6 g/dL (3.2-5.0); BUN 59 mg/dL (7-18); BUN/Creat Ratio 8.5 RATIO (10-20); Calcium,Total 7.9 mg/dL (8.5-10.1); Chloride 90 mmol/L (98-107); Creatinine, Serum 6.92 mg/dL (0.70-1.30); EST Glomerular Filtration Rate 9 mL/min (>60); Est Glom Filt Rate - Afr Amer 11 mL/min (>60); Estimated Creatinine Clearance 11.65 ml/min; Glucose 66 mg/dL (74-106); Phosphorus 7.6 mg/dL (2.5-4.9); Potassium 4.1 mmol/L (3.5-5.1); Sodium Level 131 mmol/L (136-145)
[2017-10-30 07:25] LABS: Bedside Glucose 65 mg/dL (70-110)
[2017-10-30 07:26] LABS: Bedside Glucose 67 mg/dL (70-110)
[2017-10-30 07:26] LABS: Bedside Glucose 86 mg/dL (70-110)
[2017-10-30] MEDS: Isosorbide Mononitrate 30 MG Tablet PO (09:06)
[2017-10-30] MEDS: Folic Acid/Vitamin B Comp W-C 1 Capsule 1 CAP PO (09:06)
[2017-10-30] MEDS: Pantoprazole Sodium 40 MG Tablet PO (09:06)
[2017-10-30] MEDS: Aspirin 81 MG TAB.CHEW PO (09:06)
[2017-10-30] MEDS: Heparin Injection (Vial) 5,000 UNIT/ML VIAL 5000 UNIT SC ×2 (09:06→21:49)
[2017-10-30] MEDS: Pyridoxine HCl 100 MG Tablet PO (09:06)
[2017-10-30] MEDS: SEVELAMER CARBONATE 800 MG TABLET 1600 MG PO ×3 (09:06→17:42)
[2017-10-30] MEDS: Gabapentin 100 MG Capsule PO ×3 (09:06→17:42)
[2017-10-30] MEDS: Piperacil/Tazobactam 3.375 GM/50 ML ML IV ×2 (09:19→21:54)
[2017-10-30] MEDS: 0.9% NaCl Peripheral Flush Adult/Peds IV (09:20)
[2017-10-30] MEDS: HYDROcodone Bitartrate/Apap 5/325 Tablet PO ×3 (09:28→21:54)
--- NOTE | 2017-10-30 11:14 | VDLE_ITS ---
Reason For Study: LEG PAIN Procedure LEFT Exam performed portable in patient room. GSV is normal. A preliminary report was called and/or faxed CFV is compressible, spontaneous, phasic, to PCU. competent, and demonstrates normal augmentation. FV is compressible, spontaneous, phasic, competent and demonstrates normal augmentation. POP V is compressible, spontaneous, phasic, competent and demonstrates normal augmentation. T/P Trunk is compressible. PTV is compressible. LT PerV is compressible. Interpretation Summary Deep veins of the left lower extremity are patent and compressible segmentally. There is no evidence of left lower extremity deep vein thrombosis. Valvular competence appears intact within the proximal deep venous system on the left . The left greater saphenous vein appears patent and compressible segmentally. Ordering Physician: Esteban Wallace Referring Physician: Anca Gregorio Performed By: Genesis Claudio RVT
--- NOTE | 2017-10-30 11:15 | US_ITS ---
STUDY: ABDOMINAL ULTRASOUND - RIGHT UPPER QUADRANT REASON FOR VISIT: Male, 47 years old. Nausea and vomiting TECHNIQUE: Ultrasound evaluation of the right upper quadrant was performed with real-time and static santana-scale imaging. TECHNICAL QUALITY: Adequate. COMPARISON: 08/04/2016. FINDINGS: Liver: The liver measures 25.6 cm. There is increased echogenicity consistent with fatty infiltration. The bile ducts are within normal limits. There is hepatic color flow. The direction of portal flow is hepatopetal. There is no demonstrated mass lesion. Gallbladder: Normal distended gallbladder. The gallbladder wall measures 3 mm. There is a negative sonographic Huynh's sign. There is no pericholecystic fluid. There are no gallstones. Common Bile Duct (C.B.D.): The common bile duct measures 3 mm. Pancreas: Normal size of the head, body and tail of the pancreas. There is normal echogenicity of the pancreas. There is no demonstrated pancreatic mass or cyst. Right Kidney: Normal size of the right kidney. The right kidney measures 13.6 cm. Normal renal cortex. The right cortex measures 1.7 cm. There is no demonstrated renal mass or cyst. There is no right hydronephrosis. US/Abdomen Limited IMPRESSION: Hepatomegaly. No gallstones. Electronically Signed: Gary Aguilar DO at 21:34 EDT , Service support ,
--- NOTE | 2017-10-30 11:22 | PCM.PN.REN ---
Patient Problems: Active and Suspected Problems (Last Updated 10/27/17 @ 19:34 by Anca Gregorio DO) Left leg cellulitis (Acute) SIRS (systemic inflammatory response syndrome) (Acute) Periapical abscess (Acute) Subjective: Complains of pain in left lower extremity stasis cellulitis with leg edema. Blood culture ?1 set grew staph epi. Leukocytosis is improved. Lasix dose was decreased for low blood pressures. Blood pressure stable now. - Physical Exam General: Alert, Oriented x3, Cooperative, No apparent distress HEENT: PERRLA, EOMI Oral: Moist Mucosa Lungs: Clear to auscultation, Diminished Cardiovascular: Regular rate Abdomen: Bowel Sounds Present, Soft, Non Tender, Obese Extremities: Edema - Chronic, persistent Skin: - - Left lower extremity skin tenderness to touch Musculoskeletal: No Muscle Wasting Psych/Mental Status: Normal Affect, Appropriate, Alert and oriented to time, place, person, mood and affect Vital Signs Temp Pulse Resp BP Pulse Ox 98.6 F 70 18 97/60 94 10/30/17 09:03 10/30/17 11:05 10/30/17 09:33 10/30/17 09:03 10/30/17 09:33 Oxygen Flow Rate (L/min) 1 Oxygen Delivery Method Room Air Weight: 122.8 kg Body Mass Index (BMI) 43.7 Intake and Output for Last 24 Hours 10/28/17 10/29/17 10/30/17 23:59 23:59 23:59 Intake Total 2539 / 2539 1180.4 / 1180.4 60 / 60 Output Total 5650 / 5650 100 / 100 Balance -3111 / -3111 1080.4 / 1080.4 60 / 60 Laboratory Tests Past 24 Hrs 10/30/17 10/30/17 05:45 05:45 WBC 7.1 RBC 3.05 L Hgb 8.6 L Hct 27.4 L MCV 89.8 MCH 28.2 MCHC 31.4 L RDW 14.5 RDW Differential 47.8 H Plt Count 298 MPV 9.8 Immature Gran % (Auto) 0.700 Neut % (Auto) 62.6 Lymph % (Auto) 17.5 L [place] % (Auto) 12.7 H Eos % (Auto) 5.9 H Baso % (Auto) 0.6 Absolute Neuts (auto) 4.4 Absolute Lymphs (auto) 1.24 Total Counted Not Reportable Sodium 131 L Potassium 4.1 Chloride 90 L Carbon Dioxide 28.0 BUN 59 H Creatinine 6.92 H Estim Creat Clear Calc 11.65 Est GFR (MDRD) Af Amer 11 L Est GFR (MDRD) Non-Af 9 L BUN/Creatinine Ratio 8.5 L Glucose 66 L Calcium 7.9 L Phosphorus 7.6 H Albumin 2.6 L POC Glucose 10/30/17 10/30/17 10/30/17 07:20 07:03 06:47 POC Glucose 86 67 L 65 L 10/29/17 10/29/17 10/29/17 22:48 16:26 11:57 POC Glucose 169 H 179 H 149 H Medical Necessity - Tobacco Use Smoking Status: Never smoker Tobacco Use: Non-smoker Assessment/Plan Active and Suspected Problems (Last Updated 10/27/17 @ 19:34 by Anca Gregorio DO) Left leg cellulitis (Acute) SIRS (systemic inflammatory response syndrome) (Acute) Periapical abscess (Acute) 1. ESRD HD Monday, , Monday. Next dialysis tomorrow. 2. Sepsis with fever, leukocytosis. Bacteremia with STAPH epi on 1 set cx on peripheral culture suspect due to contaminant. Repeat sugar on dialysis Monday pending. Renal dose Zosyn. Check random vanco level. ID consulted by primary service 3. Noncompliance with medical tx, high fluid gains, dialysis treatments, dietary. Stop iv fluids. Has chronic swelling. Increase Lasix to 80 mg twice a day 4. HTN stable 5. DM2 primary care mgmt 6. Anemia of chronic disease. Epo on dialysis. 7. Morbid obesity/sleep apnea. 8. Hyperphosphatemia. Increase Renvela to 2 with each meal
--- NOTE | 2017-10-30 11:24 | CON.PCM_ITS ---
Problem List (1) Fever and chills Status: Acute Reason for Consult: fever Consulted by: Dr. Mcwilliams History of Present Illness: The patient is a 47 year old M with ESRD on HD via RUE fistula who presented with sudden onset of fever, chills, weakness, n/v. Had been feeling fine prior to this. No issues with fistula. No sick contacts, no recent travel, no unusual or undercooked foods. No abd pain or diarrhea. No h/o gallstones. Some chronic cough. Per thien, he was having trouble standing, and she called EMS because she couldn't get him up. Temp of 101.6 in ED. Cxs sent, started on zosyn. Now feeling better, no further fever, wbc now normal. Single Bcx with CoNS. Does c/o L calf severe pain and swelling since yesterday afternoon; no h/o DVT. Full ros performed and neg except as noted above. - Medical History Past Medical History (Chronic Problems): Chronic Problems (Last Updated 10/27/17 @ 19:34 by Anca Gregorio DO) Morbid obesity with BMI of 40.0-44.9, adult (Chronic) Diabetes mellitus, type II (Chronic) Renal failure (Chronic) Noncompliance (Chronic) CHF (congestive heart failure) (Chronic) TIA (transient ischemic attack) (Chronic) Chronic respiratory failure with hypoxia (Chronic) HTN (hypertension) (Chronic) Acute on chronic diastolic CHF (congestive heart failure) (Chronic) Hyperlipidemia (Chronic) Diabetic neuropathy (Chronic) Anemia (Chronic) SELMA (obstructive sleep apnea) (Chronic) Allergies/Adverse Reactions: Allergies venom-honey bee [bee venom (honey bee)] Allergy (Verified 10/27/17 14:14) Swelling sulfamethoxazole [From Bactrim] Adverse Reaction (Verified 10/27/17 14:14) Upset Stomach trimethoprim [From Bactrim] Adverse Reaction (Verified 10/27/17 14:14) Upset Stomach Home Medications: Ambulatory Orders Medication Instructions Recorded Aspirin [Aspirin, Baby] 81 mg PO DAILY@0800 10/11/17 Atorvastatin Calcium [Lipitor] 20 mg PO QHS 10/11/17 Furosemide [Lasix] 80 mg PO TID 10/11/17 Gabapentin [Neurontin] 100 mg PO TIDCM 10/11/17 Isosorbide Mononitrate [Imdur] 30 mg PO DAILY 10/11/17 Lisinopril [Zestril] 10 mg PO DAILY 10/11/17 Metoprolol Tartrate [Lopressor 50 mg PO BID 10/11/17 (beta khoa)] Omeprazole 40 mg PO DAILY 10/11/17 Pyridoxine HCl [Vitamin B-6] 100 mg PO DAILY 10/11/17 Sevelamer HCl [Renagel] 800 mg PO TID 10/11/17 Vits A,C,E/Lutein/Minerals 1 each PO DAILY 10/11/17 [Ocuvite with Lutein Tablet] Folic Acid/Vitamin B Comp W-C 1 capsule PO DAILY 10/27/17 [Nephrocaps, Renaphro] Insulin U-500 [Humulin R U-500 15 unit SC DAILY 10/27/17 ([facility])] Insulin U-500 [Humulin R U-500 22 unit SC QHS 10/27/17 ([facility])] - Social History Tobacco Use: non-smoker Vital Signs Temp Pulse Resp BP Pulse Ox 98.6 F 70 18 97/60 94 10/30/17 09:03 10/30/17 11:05 10/30/17 09:33 10/30/17 09:03 10/30/17 09:33 Oxygen Flow Rate (L/min) 1 Oxygen Delivery Method Room Air Weight: 122.8 kg Body Mass Index (BMI) 43.7 Laboratory Tests Past 24 Hrs 10/30/17 10/30/17 05:45 05:45 WBC 7.1 RBC 3.05 L Hgb 8.6 L Hct 27.4 L MCV 89.8 MCH 28.2 MCHC 31.4 L RDW 14.5 RDW Differential 47.8 H Plt Count 298 MPV 9.8 Immature Gran % (Auto) 0.700 Neut % (Auto) 62.6 Lymph % (Auto) 17.5 L [place] % (Auto) 12.7 H Eos % (Auto) 5.9 H Baso % (Auto) 0.6 Absolute Neuts (auto) 4.4 Absolute Lymphs (auto) 1.24 Total Counted Not Reportable Sodium 131 L Potassium 4.1 Chloride 90 L Carbon Dioxide 28.0 BUN 59 H Creatinine 6.92 H Estim Creat Clear Calc 11.65 Est GFR (MDRD) Af Amer 11 L Est GFR (MDRD) Non-Af 9 L BUN/Creatinine Ratio 8.5 L Glucose 66 L Calcium 7.9 L Phosphorus 7.6 H Albumin 2.6 L - Other Studies Radiology: [] reviewed Other Studies: [] Route of nutrition/ use of supplements: [] Nutritional Intake: [] IV Site: [] Kuo Catheter: [] - Physical Exam General: Alert, Oriented x3, Cooperative, No apparent distress HEENT: Atraumatic, PERRLA, EOMI Neck: Supple, No JVD Lungs: Clear to auscultation Cardiovascular: Regular rate, Regular Rhythm Abdomen: Bowel Sounds Present, Soft, Non Tender, Non-Distended Extremities: Edema Skin: - - mild rash with significant tenderness to L calf IV Site: Peripheral, without redness Musculoskeletal: - - (+) thrill and bruit RUE Neurological: Cranial nerves II-XII grossly intact - Assessment/Plan Antibiotics: [] Assessment/Plan: [] Active and Suspected Problems (Last Updated 10/27/17 @ 19:34 by Anca Gregorio DO) Nausea and vomiting (Acute) Fever and chills (Acute) Malaise and fatigue (Acute) sepsis with n/v - fever and leukocytosis resolved. Unclear source. Has some loose/cracked/rotted teeth. Will order dental xrays, RUQ u/s. Cont zosyn for now. If these studies are negative, viral syndrome may be most likely explanation single (+) Bcx with CoNS - consistent with contamination L calf pain - checking doppler ESRD on HD via fistula - neph following thank you, will follow
[2017-10-30 11:26] LABS: Bedside Glucose 178 mg/dL (70-110)
--- NOTE | 2017-10-30 12:35 | CT_ITS ---
STUDY: CT FACIAL BONES WITH CONTRAST REASON FOR EXAM: Male, 47 years old. Evaluate for dental abscess. Loose tooth in the bottom right. RADIATION DOSAGE (If Supplied By Facility): CTDIvol = ( 29.38 ) mGy, DLP = ( 694.38 ) mGycm TECHNIQUE: The patient was scanned in a multi detector CT scanner. Transaxial imaging was performed following the intravenous administration of 50CC ml of Isovue 370 contrast material. Sagittal and coronal images were reconstructed. Individualized dose optimization techniques were used for this CT. COMPARISON: None. FINDINGS: No para mandibular abscess or phlegmon. No buccal space abscess or phlegmon. Small periapical lucency in the right second lower premolar tooth. Loose right posterior lower second molar tooth. Small periapical lucency in the more anterior root of the right upper second molar. Small periapical lucency in the posterior apical root of the left upper second molar tooth. Normal parotid spaces, parapharyngeal spaces, carotid sheaths and dog bather spaces. Normal nasopharynx, retropharyngeal space and paravertebral space. Normal oropharynx and a small portion of the included hypopharynx. Normal orbital mendoza and orbital contents. Normal nasal bones and anterior nasal spine. Normal facial bones. There is no demonstrated fracture. Hypoplastic right maxillary sinus is not opacified. The paranasal sinuses are normal. CT/Sinus/Facial Bone WITH Contras IMPRESSION: 1. No CT evidence of any suspicious paramandibular abscess or phlegmon and no CT evidence of buccal space abscess or phlegmon. 2. Small periapical lucency in the right lower second molar tooth. 3. Lucency right posterior lower second molar tooth. 4. Small periapical lucency in the more anterior root of the right upper second molar. 5. Small periapical lucency in the posterior apical roots of the left upper second molar tooth. Electronically Signed: Jason Pollard MD at 14:19 EDT , Service support ,
[2017-10-30] MEDS: Lisinopril 10 MG Tablet PO (12:46)
--- NOTE | 2017-10-30 14:23 | PCM.PN.HOSP ---
Patient Problems: Active and Suspected Problems (Last Updated 10/27/17 @ 19:34 by Anca Gregorio DO) Nausea and vomiting (Acute) Fever and chills (Acute) Malaise and fatigue (Acute) Subjective: complaining of left calf pain and rash. Vitals/I&O's: Vital Signs Temp Pulse Resp BP Pulse Ox 37.0 C 70 18 97/60 94 10/30/17 09:03 10/30/17 11:05 10/30/17 09:33 10/30/17 09:03 10/30/17 09:33 Oxygen Flow Rate (L/min) 1 Oxygen Delivery Method Room Air Weight: 122.8 kg Body Mass Index (BMI) 43.7 Intake and Output for Last 24 Hours 10/28/17 10/29/17 10/30/17 23:59 23:59 23:59 Intake Total 2539 / 2539 1180.4 / 1180.4 560 / 560 Output Total 5650 / 5650 100 / 100 50 / 50 Balance -3111 / -3111 1080.4 / 1080.4 510 / 510 General: Alert, Oriented x3, No apparent distress, - - appears older than stated age. HEENT: Atraumatic, Normocephalic Oral: Moist Mucosa, No Gingival or Mucosal Lesions/ Ulcerations Neck: No Nodes, Thyroid Normal Size and Texture Lungs: Clear to auscultation, Normal air movement, No rhonchi, No wheeze Cardiovascular: Regular rate, Regular Rhythm, Normal S1, Normal S2 Abdomen: Bowel Sounds Present, Soft, Non Tender, Non-Distended Extremities: Edema Skin: - - mild red macular rash of left calf with exquisite tenderness to mild palpations. Musculoskeletal: No Tenderness to Palpation of Joints or Extremities, No Muscle Wasting Psych/Mental Status: Normal Affect, Appropriate Microbiology Past 72 Hours 10/28/17 12:40 Urine, Clean Catch Urine Culture - Final Culture exhibits no growth. Laboratory Results 10/29/17 16:26: POC Glucose 179 H 10/29/17 22:48: POC Glucose 169 H 10/30/17 05:45: WBC 7.1, RBC 3.05 L, Hgb 8.6 L, Hct 27.4 L, MCV 89.8, MCH 28.2, MCHC 31.4 L, RDW 14.5, RDW Differential 47.8 H, Plt Count 298, MPV 9.8, Immature Gran % (Auto) 0.700, Neut % (Auto) 62.6, Lymph % (Auto) 17.5 L, [place] % (Auto) 12.7 H, Eos % (Auto) 5.9 H, Baso % (Auto) 0.6, Absolute Neuts (auto) 4.4, Absolute Lymphs (auto) 1.24, Total Counted Not Reportable 10/30/17 05:45: Sodium 131 L, Potassium 4.1, Chloride 90 L, Carbon Dioxide 28.0, BUN 59 H, Creatinine 6.92 H, Estim Creat Clear Calc 11.65, Est GFR (MDRD) Af Amer 11 L, Est GFR (MDRD) Non-Af 9 L, BUN/Creatinine Ratio 8.5 L, Glucose 66 L, Calcium 7.9 L, Phosphorus 7.6 H, Albumin 2.6 L 10/30/17 06:47: POC Glucose 65 L 10/30/17 07:03: POC Glucose 67 L 10/30/17 07:20: POC Glucose 86 10/30/17 11:18: POC Glucose 178 H Current Medications Acetaminophen (Tylenol) 650 mg PO Q6H PRN PRN PRN Reason: Mild Pain (1-3)/Temp > 100.7 F Last Admin: 10/29/17 04:58 Dose: 650 mg Hydrocodone Bitart/Acetaminophen ([place] 5mg-325mg) 1 tablet PO Q4H PRN PRN PRN Reason: SEVERE PAIN (6-10/10) Last Admin: 10/30/17 09:28 Dose: 1 tablet Aspirin (Aspirin, Baby) 81 mg PO DAILY@0800 [facility] Last Admin: 10/30/17 09:06 Dose: 81 mg Atorvastatin Calcium (Lipitor) 20 mg PO QHS [facility] Last Admin: 10/29/17 23:00 Dose: 20 mg Dextrose (D50w Syringe) 0 gm IV X1 PRN; Protocol PRN Reason: Hypoglycemia Furosemide (Lasix) 80 mg PO BID@1000,1800 [facility] Last Admin: 10/30/17 12:46 Dose: Not Given Gabapentin (Neurontin) 100 mg PO TIDCM [facility] Last Admin: 10/30/17 12:46 Dose: 100 mg Glucagon () 1 mg IM .X1 PRN PRN Reason: Hypoglycemia Heparin Sodium (Porcine) (Heparin Na) 5,000 unit SC Q12 [facility] Last Admin: 10/30/17 09:06 Dose: 5,000 u Piperacillin Sod/Tazobactam Sod (Zosyn) 3.375 gm in 50 mls @ 12.5 mls/hr IV Q12 [facility] Last Admin: 10/30/17 09:19 Dose: 12.5 mls/hr Insulin Aspart (Novolog Flexpen ([facility])) 0 units SC ACHS [facility] PRN Reason: Protocol Last Admin: 10/30/17 12:16 Dose: Not Given Insulin Human Regular (Humulin R U-500 ([facility])) 0.15 ml SC BREAKFAST [facility] Last Admin: 10/30/17 09:50 Dose: 75 units Insulin Human Regular (Humulin R U-500 ([facility])) 0.22 ml SC QHS [facility] Last Admin: 10/29/17 23:12 Dose: 0.22 ml Isosorbide Mononitrate (Imdur) 30 mg PO DAILY [facility] Last Admin: 10/30/17 09:06 Dose: 30 mg Lisinopril (Zestril) 10 mg PO DAILY [facility] Last Admin: 10/30/17 12:46 Dose: 10 mg Metoprolol Tartrate (Lopressor (Beta Emmanuel)) 12.5 mg PO BID [facility] Multivit/Ca Carb/B Cmplx/FA/Prenat (Nephrocaps, Renaphro) 1 capsule PO DAILY [facility] Last Admin: 10/30/17 09:06 Dose: 1 capsule Ondansetron HCl (Zofran) 4 mg IV Q6H PRN PRN PRN Reason: NAUSEA Last Admin: 10/28/17 00:33 Dose: 4 mg Pantoprazole Sodium (Protonix) 40 mg PO DAILY [facility] Last Admin: 10/30/17 09:06 Dose: 40 mg Promethazine HCl (Phenergan) 12.5 mg IV Q4H PRN PRN PRN Reason: NAUSEA/VOMITING Last Admin: 10/28/17 22:20 Dose: 12.5 mg Pyridoxine HCl (Vitamin B-6) 100 mg PO DAILY@0800 [facility] Last Admin: 10/30/17 09:06 Dose: 100 mg Sevelamer Carbonate (Renvela) 1,600 mg PO TIDCM [facility] Last Admin: 10/30/17 12:47 Dose: 1,600 mg Sodium Chloride () 5 - 30 ml IV UD PRN PRN Reason: SALINE FLUSH Last Admin: 10/30/17 09:20 Dose: 10 ml Throat Lozenges (Cepacol Sore Throat Lozenge) 1 lozenge MUCOUS MEM Q2H PRN PRN PRN Reason: SORE THROAT Last Admin: 10/28/17 11:43 Dose: 1 lozenge Medical Necessity - Tobacco Use Smoking Status: Never smoker Tobacco Use: Non-smoker Assessment/Plan Active and Suspected Problems (Last Updated 10/27/17 @ 19:34 by Anca Gregorio DO) Nausea and vomiting (Acute) Fever and chills (Acute) Malaise and fatigue (Acute) 1. SIRS present on admission no clear source identified at this time ID following on empiric Zosyn culture work up so far negative +Blood culture is contaminant, no further work up. 2. Left calf pain: Duplex pending. ?cellulitis no evidence of compartment syndrome at this time. 3. ESRD HD QTThSa nephrology following. 4. DVT proph: SQ heparin. Code Visit Inpatient E&M: 53934 Subs Hosp L2
--- NOTE | 2017-10-30 14:30 | PN_ITS ---
Patient Problems: Active and Suspected Problems (Last Updated 10/27/17 @ 19:34 by Anca Gregorio DO) Nausea and vomiting (Acute) Fever and chills (Acute) Malaise and fatigue (Acute) Subjective: complaining of left calf pain and rash. Vitals/I&O's: Vital Signs Temp Pulse Resp BP Pulse Ox 37.0 C 70 18 97/60 94 10/30/17 09:03 10/30/17 11:05 10/30/17 09:33 10/30/17 09:03 10/30/17 09:33 Oxygen Flow Rate (L/min) 1 Oxygen Delivery Method Room Air Weight: 122.8 kg Body Mass Index (BMI) 43.7 Intake and Output for Last 24 Hours 10/28/17 10/29/17 10/30/17 23:59 23:59 23:59 Intake Total 2539 / 2539 1180.4 / 1180.4 560 / 560 Output Total 5650 / 5650 100 / 100 50 / 50 Balance -3111 / -3111 1080.4 / 1080.4 510 / 510 General: Alert, Oriented x3, No apparent distress, - - appears older than stated age. HEENT: Atraumatic, Normocephalic Oral: Moist Mucosa, No Gingival or Mucosal Lesions/ Ulcerations Neck: No Nodes, Thyroid Normal Size and Texture Lungs: Clear to auscultation, Normal air movement, No rhonchi, No wheeze Cardiovascular: Regular rate, Regular Rhythm, Normal S1, Normal S2 Abdomen: Bowel Sounds Present, Soft, Non Tender, Non-Distended Extremities: Edema Skin: - - mild red macular rash of left calf with exquisite tenderness to mild palpations. Musculoskeletal: No Tenderness to Palpation of Joints or Extremities, No Muscle Wasting Psych/Mental Status: Normal Affect, Appropriate Microbiology Past 72 Hours 10/28/17 12:40 Urine, Clean Catch Urine Culture - Final Culture exhibits no growth. Laboratory Results 10/29/17 16:26: POC Glucose 179 H 10/29/17 22:48: POC Glucose 169 H 10/30/17 05:45: WBC 7.1, RBC 3.05 L, Hgb 8.6 L, Hct 27.4 L, MCV 89.8, MCH 28.2, MCHC 31.4 L, RDW 14.5, RDW Differential 47.8 H, Plt Count 298, MPV 9.8, Immature Gran % (Auto) 0.700, Neut % (Auto) 62.6, Lymph % (Auto) 17.5 L, [place] % (Auto) 12.7 H, Eos % (Auto) 5.9 H, Baso % (Auto) 0.6, Absolute Neuts (auto) 4.4 , Absolute Lymphs (auto) 1.24, Total Counted Not Reportable 10/30/17 05:45: Sodium 131 L, Potassium 4.1, Chloride 90 L, Carbon Dioxide 28.0 , BUN 59 H, Creatinine 6.92 H, Estim Creat Clear Calc 11.65, Est GFR (MDRD) Af Amer 11 L, Est GFR (MDRD) Non-Af 9 L, BUN/Creatinine Ratio 8.5 L, Glucose 66 L, Calcium 7.9 L, Phosphorus 7.6 H, Albumin 2.6 L 10/30/17 06:47: POC Glucose 65 L 10/30/17 07:03: POC Glucose 67 L 10/30/17 07:20: POC Glucose 86 10/30/17 11:18: POC Glucose 178 H Current Medications Acetaminophen (Tylenol) 650 mg PO Q6H PRN PRN PRN Reason: Mild Pain (1-3)/Temp > 100.7 F Last Admin: 10/29/17 04:58 Dose: 650 mg Hydrocodone Bitart/Acetaminophen ([place] 5mg-325mg) 1 tablet PO Q4H PRN PRN PRN Reason: SEVERE PAIN (6-10/10) Last Admin: 10/30/17 09:28 Dose: 1 tablet Aspirin (Aspirin, Baby) 81 mg PO DAILY@0800 [facility] Last Admin: 10/30/17 09:06 Dose: 81 mg Atorvastatin Calcium (Lipitor) 20 mg PO QHS [facility] Last Admin: 10/29/17 23:00 Dose: 20 mg Dextrose (D50w Syringe) 0 gm IV X1 PRN; Protocol PRN Reason: Hypoglycemia Furosemide (Lasix) 80 mg PO BID@1000,1800 [facility] Last Admin: 10/30/17 12:46 Dose: Not Given Gabapentin (Neurontin) 100 mg PO TIDCM [facility] Last Admin: 10/30/17 12:46 Dose: 100 mg Glucagon () 1 mg IM .X1 PRN PRN Reason: Hypoglycemia Heparin Sodium (Porcine) (Heparin Na) 5,000 unit SC Q12 [facility] Last Admin: 10/30/17 09:06 Dose: 5,000 u Piperacillin Sod/Tazobactam Sod (Zosyn) 3.375 gm in 50 mls @ 12.5 mls/hr IV Q12 [facility] Last Admin: 10/30/17 09:19 Dose: 12.5 mls/hr Insulin Aspart (Novolog Flexpen ([facility])) 0 units SC ACHS [facility] PRN Reason: Protocol Last Admin: 10/30/17 12:16 Dose: Not Given Insulin Human Regular (Humulin R U-500 ([facility])) 0.15 ml SC BREAKFAST [facility] Last Admin: 10/30/17 09:50 Dose: 75 units Insulin Human Regular (Humulin R U-500 ([facility])) 0.22 ml SC QHS [facility] Last Admin: 10/29/17 23:12 Dose: 0.22 ml Isosorbide Mononitrate (Imdur) 30 mg PO DAILY [facility] Last Admin: 10/30/17 09:06 Dose: 30 mg Lisinopril (Zestril) 10 mg PO DAILY [facility] Last Admin: 10/30/17 12:46 Dose: 10 mg Metoprolol Tartrate (Lopressor (Beta Emmanuel)) 12.5 mg PO BID [facility] Multivit/Ca Carb/B Cmplx/FA/Prenat (Nephrocaps, Renaphro) 1 capsule PO DAILY [facility] Last Admin: 10/30/17 09:06 Dose: 1 capsule Ondansetron HCl (Zofran) 4 mg IV Q6H PRN PRN PRN Reason: NAUSEA Last Admin: 10/28/17 00:33 Dose: 4 mg Pantoprazole Sodium (Protonix) 40 mg PO DAILY [facility] Last Admin: 10/30/17 09:06 Dose: 40 mg Promethazine HCl (Phenergan) 12.5 mg IV Q4H PRN PRN PRN Reason: NAUSEA/VOMITING Last Admin: 10/28/17 22:20 Dose: 12.5 mg Pyridoxine HCl (Vitamin B-6) 100 mg PO DAILY@0800 [facility] Last Admin: 10/30/17 09:06 Dose: 100 mg Sevelamer Carbonate (Renvela) 1,600 mg PO TIDCM [facility] Last Admin: 10/30/17 12:47 Dose: 1,600 mg Sodium Chloride () 5 - 30 ml IV UD PRN PRN Reason: SALINE FLUSH Last Admin: 10/30/17 09:20 Dose: 10 ml Throat Lozenges (Cepacol Sore Throat Lozenge) 1 lozenge MUCOUS MEM Q2H PRN PRN PRN Reason: SORE THROAT Last Admin: 10/28/17 11:43 Dose: 1 lozenge Medical Necessity - Tobacco Use Smoking Status: Never smoker Tobacco Use: Non-smoker Assessment/Plan Active and Suspected Problems (Last Updated 10/27/17 @ 19:34 by Anca Gregorio DO) Nausea and vomiting (Acute) Fever and chills (Acute) Malaise and fatigue (Acute) 1. SIRS * present on admission * no clear source identified at this time * ID following * on empiric Zosyn * culture work up so far negative * +Blood culture is contaminant, no further work up. 2. Left calf pain: * Duplex pending. * ?cellulitis * no evidence of compartment syndrome at this time. 3. ESRD * HD QTThSa * nephrology following. 4. DVT proph: SQ heparin. Code Visit Inpatient E&M: 08739 Subs Hosp L2
[2017-10-30] MEDS: Furosemide 80 MG Tablet PO (17:42)
[2017-10-30 18:20] LABS: Bedside Glucose 92 mg/dL (70-110)
[2017-10-30] MEDS: Atorvastatin Calcium 20 MG Tablet PO (21:49)
[2017-10-30] MEDS: Metoprolol Tartrate 25 MG Tablet 12.5 MG PO (21:49)
[2017-10-30 23:36] LABS: Bedside Glucose 214 mg/dL (70-110)
[2017-10-31] VITALS (10 sets, daily range): BP systolic 114–146; BP diastolic 48–69; PULSE 68–76; RESP 16–18; TEMP 36.6–37.1; O2SAT 94–96
--- NOTE | 2017-10-31 03:08 | CPS ---
pt brought own in from home, brought him distilled water,
[2017-10-31 05:52] LABS: Absolute Lymphocyte Count 0.91 X10^3/ul (0.83-4.51); Absolute Neutrophil Count 4.3 X10^3/uL (2.0-7.7); Basophil# 0.03 X10^3/uL; Basophil% 0.5 % (0-1); Hematocrit 25.3 % (40-54); Hemoglobin 8.2 g/dl (13.0-16.5); Lymphocyte # 0.91 X10^3/ul (4.0); Lymphocyte % 13.7 % (19-41); Mean Corp Hgb Conc 32.4 g/gl (32-36); Mean Corpuscular Hgb 28.5 pg (27.0-32.0); Mean Corpuscular Volume 87.8 fL (80-94); Mean Platelet Vol. 9.6 fl (6.2-12.0); Monocyte# 0.95 X10^3/uL; Monocyte% 14.3 % (0-10); Neutrophil % 64.4 % (47-70); Platelet Count 257 K/mm3 (150-450); RBC Distribution Width CV 14.2 % (11.6-14.6); RBC Distribution Width SD 45.4 fl (35.1-43.9); Red Blood Count 2.88 M/mm3 (4.6-6.2); White Blood Count 6.7 K/mm3 (4.4-11.0)
[2017-10-31 06:07] LABS: POSITIVE COUNT NO; POSITIVE DIFFERENTIAL NO; POSITIVE MORPHOLOGY NO
[2017-10-31 06:21] LABS: Albumin, Serum 2.5 g/dL (3.2-5.0); BUN 74 mg/dL (7-18); BUN/Creat Ratio 8.7 RATIO (10-20); Calcium,Total 7.6 mg/dL (8.5-10.1); Chloride 88 mmol/L (98-107); Creatinine, Serum 8.47 mg/dL (0.70-1.30); EST Glomerular Filtration Rate 7 mL/min (>60); Est Glom Filt Rate - Afr Amer 9 mL/min (>60); Estimated Creatinine Clearance 9.52 ml/min; Glucose 129 mg/dL (74-106); Phosphorus 8.7 mg/dL (2.5-4.9); Potassium 4.5 mmol/L (3.5-5.1); Sodium Level 128 mmol/L (136-145)
[2017-10-31 07:05] LABS: Bedside Glucose 160 mg/dL (70-110)
[2017-10-31] MEDS: Aspirin 81 MG TAB.CHEW PO (08:39)
[2017-10-31] MEDS: SEVELAMER CARBONATE 800 MG TABLET 1600 MG PO (08:39)
[2017-10-31] MEDS: Gabapentin 100 MG Capsule PO ×2 (08:39→15:22)
[2017-10-31] MEDS: Pyridoxine HCl 100 MG Tablet PO (09:21)
[2017-10-31] MEDS: Folic Acid/Vitamin B Comp W-C 1 Capsule 1 CAP PO (09:22)
[2017-10-31] MEDS: Isosorbide Mononitrate 30 MG Tablet PO (09:22)
[2017-10-31] MEDS: Pantoprazole Sodium 40 MG Tablet PO (09:22)
[2017-10-31] MEDS: HYDROcodone Bitartrate/Apap 5/325 Tablet PO ×2 (09:22→15:24)
--- NOTE | 2017-10-31 10:34 | PCM.PN.ID ---
Patient Problems: Active and Suspected Problems (Last Updated 10/27/17 @ 19:34 by Anca Gregorio DO) Nausea and vomiting (Acute) Fever and chills (Acute) Malaise and fatigue (Acute) Subjective: C/o L calf swelling, pain. No fever, no n/v/d. HD this AM. - Physical Exam General: Alert, Cooperative Lungs: Clear to auscultation, Normal air movement Cardiovascular: Regular rate, Regular Rhythm Abdomen: Soft, Non Tender, Non-Distended, Obese Skin: Rash Present - L calf/[place] swelling, mild redness, moderate tenderness Vital Signs Temp Pulse Resp BP Pulse Ox 98 F 73 16 146/69 H 96 10/31/17 09:00 10/31/17 09:00 10/31/17 09:00 10/31/17 09:00 10/31/17 09:00 Oxygen Flow Rate (L/min) 1 Oxygen Delivery Method Room Air Weight: 126.6 kg Body Mass Index (BMI) 43.7 Intake and Output for Last 24 Hours 10/29/17 10/30/17 10/31/17 23:59 23:59 23:59 Intake Total 1180.4 / 1180.4 1160 / 1160 290 / 290 Output Total 100 / 100 300 / 300 Balance 1080.4 / 1080.4 860 / 860 290 / 290 Microbiology Past 72 Hours 10/28/17 12:40 Urine Culture - Final Urine, Clean Catch Culture exhibits no growth. Laboratory Tests Past 24 Hrs 10/31/17 10/31/17 05:20 05:20 WBC 6.7 RBC 2.88 L Hgb 8.2 L Hct 25.3 L MCV 87.8 MCH 28.5 MCHC 32.4 RDW 14.2 RDW Differential 45.4 H Plt Count 257 MPV 9.6 Immature Gran % (Auto) 1.100 H Neut % (Auto) 64.4 Lymph % (Auto) 13.7 L [place] % (Auto) 14.3 H Eos % (Auto) 6.0 H Baso % (Auto) 0.5 Absolute Neuts (auto) 4.3 Absolute Lymphs (auto) 0.91 Total Counted Not Reportable Sodium 128 L Potassium 4.5 Chloride 88 L Carbon Dioxide 27.0 BUN 74 H Creatinine 8.47 H* Estim Creat Clear Calc 9.52 Est GFR (MDRD) Af Amer 9 L Est GFR (MDRD) Non-Af 7 L BUN/Creatinine Ratio 8.7 L Glucose 129 H Calcium 7.6 L Phosphorus 8.7 H Albumin 2.5 L POC Glucose 10/31/17 10/30/17 10/30/17 06:42 21:47 17:36 POC Glucose 160 H 214 H 92 10/30/17 11:18 POC Glucose 178 H Medical Necessity - Tobacco Use Smoking Status: Never smoker Tobacco Use: Non-smoker Route of nutrition/ use of supplements: [] Nutritional Intake: [] IV Site: [] Kuo Catheter: [] - Assessment/Plan Antibiotics: [] Assessment/Plan: [] Active and Suspected Problems (Last Updated 10/27/17 @ 19:34 by Anca Gregorio DO) Nausea and vomiting (Acute) Fever and chills (Acute) Malaise and fatigue (Acute) sepsis with n/v - fever and leukocytosis resolved. Unclear source. Has some loose/cracked/rotted teeth. CT showed multiple small dental abscess, will need dentistry eval soon after discharge. Narrow zosyn to augmentin. single (+) Bcx with CoNS - consistent with contamination L calf pain - neg for DVT. No purulence, minimal warmth and redness. If not improved after HD, would consider giving dose of iv vanc 2gm. ESRD on HD via fistula - neph following will follow, d/w primary team
--- NOTE | 2017-10-31 12:10 | PCM.PN.HOSP ---
Patient Problems: Active and Suspected Problems (Last Updated 10/27/17 @ 19:34 by Anca Gregorio DO) Nausea and vomiting (Acute) Fever and chills (Acute) Malaise and fatigue (Acute) Subjective: Still with LLE pain, but improved overall. Vitals/I&O's: Vital Signs Temp Pulse Resp BP Pulse Ox 36.6 C 75 16 146/69 H 96 10/31/17 09:00 10/31/17 11:06 10/31/17 09:00 10/31/17 09:00 10/31/17 09:00 Oxygen Flow Rate (L/min) 1 Oxygen Delivery Method Room Air Weight: 126.6 kg Body Mass Index (BMI) 43.7 Intake and Output for Last 24 Hours 10/29/17 10/30/17 10/31/17 23:59 23:59 23:59 Intake Total 1180.4 / 1180.4 1160 / 1160 290 / 290 Output Total 100 / 100 300 / 300 Balance 1080.4 / 1080.4 860 / 860 290 / 290 General: Alert, Cooperative, No apparent distress HEENT: Atraumatic, Normocephalic Extremities: Edema, - Skin: - - faint erythema LLE Psych/Mental Status: Normal Affect, Appropriate Microbiology Past 72 Hours 10/28/17 15:30 Blood Culture (Wb) - Dialysis/Fistula Blood Culture - Preliminary No growth in 48 hours. 10/28/17 12:40 Urine, Clean Catch Urine Culture - Final Culture exhibits no growth. Laboratory Results 10/30/17 17:36: POC Glucose 92 10/30/17 21:47: POC Glucose 214 H 10/31/17 05:20: WBC 6.7, RBC 2.88 L, Hgb 8.2 L, Hct 25.3 L, MCV 87.8, MCH 28.5, MCHC 32.4, RDW 14.2, RDW Differential 45.4 H, Plt Count 257, MPV 9.6, Immature Gran % (Auto) 1.100 H, Neut % (Auto) 64.4, Lymph % (Auto) 13.7 L, [place] % (Auto) 14.3 H, Eos % (Auto) 6.0 H, Baso % (Auto) 0.5, Absolute Neuts (auto) 4.3, Absolute Lymphs (auto) 0.91, Total Counted Not Reportable 10/31/17 05:20: Sodium 128 L, Potassium 4.5, Chloride 88 L, Carbon Dioxide 27.0, BUN 74 H, Creatinine 8.47 H*, Estim Creat Clear Calc 9.52, Est GFR (MDRD) Af Amer 9 L, Est GFR (MDRD) Non-Af 7 L, BUN/Creatinine Ratio 8.7 L, Glucose 129 H, Calcium 7.6 L, Phosphorus 8.7 H, Albumin 2.5 L 10/31/17 06:42: POC Glucose 160 H Current Medications Acetaminophen (Tylenol) 650 mg PO Q6H PRN PRN PRN Reason: Mild Pain (1-3)/Temp > 100.7 F Last Admin: 10/29/17 04:58 Dose: 650 mg Hydrocodone Bitart/Acetaminophen ([place] 5mg-325mg) 1 tablet PO Q4H PRN PRN PRN Reason: SEVERE PAIN (6-10/10) Last Admin: 10/31/17 09:22 Dose: 1 tablet Amoxicillin/Clavulanate Potassium (Augmentin Tablet) 500 mg PO Q24H [facility] Aspirin (Aspirin, Baby) 81 mg PO DAILY@0800 [facility] Last Admin: 10/31/17 08:39 Dose: 81 mg Atorvastatin Calcium (Lipitor) 20 mg PO QHS [facility] Last Admin: 10/30/17 21:49 Dose: 20 mg Dextrose (D50w Syringe) 0 gm IV X1 PRN; Protocol PRN Reason: Hypoglycemia Furosemide (Lasix) 80 mg PO BID@1000,1800 [facility] Last Admin: 10/30/17 17:42 Dose: 80 mg Gabapentin (Neurontin) 100 mg PO TIDCM [facility] Last Admin: 10/31/17 08:39 Dose: 100 mg Glucagon () 1 mg IM .X1 PRN PRN Reason: Hypoglycemia Heparin Sodium (Porcine) (Heparin Na) 5,000 unit SC Q12 [facility] Last Admin: 10/30/17 21:49 Dose: 5,000 u Insulin Aspart (Novolog Flexpen ([facility])) 0 units SC ACHS [facility] PRN Reason: Protocol Last Admin: 10/31/17 08:38 Dose: 3 units Insulin Human Regular (Humulin R U-500 ([facility])) 0.15 ml SC BREAKFAST [facility] Last Admin: 10/30/17 09:50 Dose: 75 units Insulin Human Regular (Humulin R U-500 ([facility])) 0.22 ml SC QHS [facility] Last Admin: 10/30/17 21:55 Dose: 0.22 ml Isosorbide Mononitrate (Imdur) 30 mg PO DAILY [facility] Last Admin: 10/31/17 09:22 Dose: 30 mg Lisinopril (Zestril) 10 mg PO DAILY [facility] Last Admin: 10/30/17 12:46 Dose: 10 mg Metoprolol Tartrate (Lopressor (Beta Emmanuel)) 12.5 mg PO BID [facility] Last Admin: 10/30/17 21:49 Dose: 12.5 mg Multivit/Ca Carb/B Cmplx/FA/Prenat (Nephrocaps, Renaphro) 1 capsule PO DAILY [facility] Last Admin: 10/31/17 09:22 Dose: 1 capsule Ondansetron HCl (Zofran) 4 mg IV Q6H PRN PRN PRN Reason: NAUSEA Last Admin: 10/28/17 00:33 Dose: 4 mg Pantoprazole Sodium (Protonix) 40 mg PO DAILY [facility] Last Admin: 10/31/17 09:22 Dose: 40 mg Promethazine HCl (Phenergan) 12.5 mg IV Q4H PRN PRN PRN Reason: NAUSEA/VOMITING Last Admin: 10/28/17 22:20 Dose: 12.5 mg Pyridoxine HCl (Vitamin B-6) 100 mg PO DAILY@0800 [facility] Last Admin: 10/31/17 09:21 Dose: 100 mg Sevelamer Carbonate (Renvela) 1,600 mg PO TIDCM [facility] Last Admin: 10/31/17 08:39 Dose: 1,600 mg Sodium Chloride () 5 - 30 ml IV UD PRN PRN Reason: SALINE FLUSH Last Admin: 10/30/17 09:20 Dose: 10 ml Throat Lozenges (Cepacol Sore Throat Lozenge) 1 lozenge MUCOUS MEM Q2H PRN PRN PRN Reason: SORE THROAT Last Admin: 10/28/17 11:43 Dose: 1 lozenge Medical Necessity - Tobacco Use Smoking Status: Never smoker Tobacco Use: Non-smoker Assessment/Plan Active and Suspected Problems (Last Updated 10/27/17 @ 19:34 by Anca Gregorio DO) Nausea and vomiting (Acute) Fever and chills (Acute) Malaise and fatigue (Acute) 1. SIRS present on admission no clear source identified at this time ID following on empiric Zosyn culture work up so far negative +Blood culture is contaminant, no further work up. treat empirically for cellulitis and periapical abscess 2. Left calf pain: Duplex pending. ?cellulitis no evidence of compartment syndrome at this time. DW Dr. Wallace, would treat empirically for cellulitis with doxycycline. 3. Questionable periapical abscesses empiric augmentin follow up with DDS 4. ESRD HD QTThSa nephrology following. 5. DVT proph: SQ heparin.
--- NOTE | 2017-10-31 12:13 | PN_ITS ---
Patient Problems: Active and Suspected Problems (Last Updated 10/27/17 @ 19:34 by Anca Gregorio DO) Nausea and vomiting (Acute) Fever and chills (Acute) Malaise and fatigue (Acute) Subjective: Still with LLE pain, but improved overall. Vitals/I&O's: Vital Signs Temp Pulse Resp BP Pulse Ox 36.6 C 75 16 146/69 H 96 10/31/17 09:00 10/31/17 11:06 10/31/17 09:00 10/31/17 09:00 10/31/17 09:00 Oxygen Flow Rate (L/min) 1 Oxygen Delivery Method Room Air Weight: 126.6 kg Body Mass Index (BMI) 43.7 Intake and Output for Last 24 Hours 10/29/17 10/30/17 10/31/17 23:59 23:59 23:59 Intake Total 1180.4 / 1180.4 1160 / 1160 290 / 290 Output Total 100 / 100 300 / 300 Balance 1080.4 / 1080.4 860 / 860 290 / 290 General: Alert, Cooperative, No apparent distress HEENT: Atraumatic, Normocephalic Extremities: Edema, - Skin: - - faint erythema LLE Psych/Mental Status: Normal Affect, Appropriate Microbiology Past 72 Hours 10/28/17 15:30 Blood Culture (Wb) - Dialysis/Fistula Blood Culture - Preliminary No growth in 48 hours. 10/28/17 12:40 Urine, Clean Catch Urine Culture - Final Culture exhibits no growth. Laboratory Results 10/30/17 17:36: POC Glucose 92 10/30/17 21:47: POC Glucose 214 H 10/31/17 05:20: WBC 6.7, RBC 2.88 L, Hgb 8.2 L, Hct 25.3 L, MCV 87.8, MCH 28.5, MCHC 32.4, RDW 14.2, RDW Differential 45.4 H, Plt Count 257, MPV 9.6, Immature Gran % (Auto) 1.100 H, Neut % (Auto) 64.4, Lymph % (Auto) 13.7 L, [place] % (Auto) 14.3 H, Eos % (Auto) 6.0 H, Baso % (Auto) 0.5, Absolute Neuts (auto) 4.3, Absolute Lymphs (auto) 0.91, Total Counted Not Reportable 10/31/17 05:20: Sodium 128 L, Potassium 4.5, Chloride 88 L, Carbon Dioxide 27.0 , BUN 74 H, Creatinine 8.47 H*, Estim Creat Clear Calc 9.52, Est GFR (MDRD) Af Amer 9 L, Est GFR (MDRD) Non-Af 7 L, BUN/Creatinine Ratio 8.7 L, Glucose 129 H, Calcium 7.6 L, Phosphorus 8.7 H, Albumin 2.5 L 10/31/17 06:42: POC Glucose 160 H Current Medications Acetaminophen (Tylenol) 650 mg PO Q6H PRN PRN PRN Reason: Mild Pain (1-3)/Temp > 100.7 F Last Admin: 10/29/17 04:58 Dose: 650 mg Hydrocodone Bitart/Acetaminophen ([place] 5mg-325mg) 1 tablet PO Q4H PRN PRN PRN Reason: SEVERE PAIN (6-10/10) Last Admin: 10/31/17 09:22 Dose: 1 tablet Amoxicillin/Clavulanate Potassium (Augmentin Tablet) 500 mg PO Q24H [facility] Aspirin (Aspirin, Baby) 81 mg PO DAILY@0800 [facility] Last Admin: 10/31/17 08:39 Dose: 81 mg Atorvastatin Calcium (Lipitor) 20 mg PO QHS [facility] Last Admin: 10/30/17 21:49 Dose: 20 mg Dextrose (D50w Syringe) 0 gm IV X1 PRN; Protocol PRN Reason: Hypoglycemia Furosemide (Lasix) 80 mg PO BID@1000,1800 [facility] Last Admin: 10/30/17 17:42 Dose: 80 mg Gabapentin (Neurontin) 100 mg PO TIDCM [facility] Last Admin: 10/31/17 08:39 Dose: 100 mg Glucagon () 1 mg IM .X1 PRN PRN Reason: Hypoglycemia Heparin Sodium (Porcine) (Heparin Na) 5,000 unit SC Q12 [facility] Last Admin: 10/30/17 21:49 Dose: 5,000 u Insulin Aspart (Novolog Flexpen ([facility])) 0 units SC ACHS RENE PRN Reason: Protocol Last Admin: 10/31/17 08:38 Dose: 3 units Insulin Human Regular (Humulin R U-500 ([facility])) 0.15 ml SC BREAKFAST [facility] Last Admin: 10/30/17 09:50 Dose: 75 units Insulin Human Regular (Humulin R U-500 (Bkc)) 0.22 ml SC QHS [facility] Last Admin: 10/30/17 21:55 Dose: 0.22 ml Isosorbide Mononitrate (Imdur) 30 mg PO DAILY [facility] Last Admin: 10/31/17 09:22 Dose: 30 mg Lisinopril (Zestril) 10 mg PO DAILY [facility] Last Admin: 10/30/17 12:46 Dose: 10 mg Metoprolol Tartrate (Lopressor (Beta Emmanuel)) 12.5 mg PO BID [facility] Last Admin: 10/30/17 21:49 Dose: 12.5 mg Multivit/Ca Carb/B Cmplx/FA/Prenat (Nephrocaps, Renaphro) 1 capsule PO DAILY [facility] Last Admin: 10/31/17 09:22 Dose: 1 capsule Ondansetron HCl (Zofran) 4 mg IV Q6H PRN PRN PRN Reason: NAUSEA Last Admin: 10/28/17 00:33 Dose: 4 mg Pantoprazole Sodium (Protonix) 40 mg PO DAILY [facility] Last Admin: 10/31/17 09:22 Dose: 40 mg Promethazine HCl (Phenergan) 12.5 mg IV Q4H PRN PRN PRN Reason: NAUSEA/VOMITING Last Admin: 10/28/17 22:20 Dose: 12.5 mg Pyridoxine HCl (Vitamin B-6) 100 mg PO DAILY@0800 [facility] Last Admin: 10/31/17 09:21 Dose: 100 mg Sevelamer Carbonate (Renvela) 1,600 mg PO TIDCM [facility] Last Admin: 10/31/17 08:39 Dose: 1,600 mg Sodium Chloride () 5 - 30 ml IV UD PRN PRN Reason: SALINE FLUSH Last Admin: 10/30/17 09:20 Dose: 10 ml Throat Lozenges (Cepacol Sore Throat Lozenge) 1 lozenge MUCOUS MEM Q2H PRN PRN PRN Reason: SORE THROAT Last Admin: 10/28/17 11:43 Dose: 1 lozenge Medical Necessity - Tobacco Use Smoking Status: Never smoker Tobacco Use: Non-smoker Assessment/Plan Active and Suspected Problems (Last Updated 10/27/17 @ 19:34 by Anca Gregorio DO) Nausea and vomiting (Acute) Fever and chills (Acute) Malaise and fatigue (Acute) 1. SIRS * present on admission * no clear source identified at this time * ID following * on empiric Zosyn * culture work up so far negative * +Blood culture is contaminant, no further work up. * treat empirically for cellulitis and periapical abscess 2. Left calf pain: * Duplex pending. * ?cellulitis * no evidence of compartment syndrome at this time. * DW Dr. Wallace, would treat empirically for cellulitis with doxycycline. 3. Questionable periapical abscesses * empiric augmentin * follow up with DDS 4. ESRD * HD QTThSa * nephrology following. 5. DVT proph: SQ heparin.
[2017-10-31 12:20] LABS: Bedside Glucose 153 mg/dL (70-110)
--- NOTE | 2017-10-31 12:22 | PCM.DC ---
- Discharge Diagnoses Current Active Problems: Current Active and Chronic Problems (Last Updated 10/27/17 @ 19:34 by Anca Gregorio DO) Nausea and vomiting (Acute) Fever and chills (Acute) Malaise and fatigue (Acute) You will use the following diet at home:: Fluid restricted (specify 2000 mls, 1500 mls) - 1500 cc/day, Renal (restricted protein/sodium) Your food should be the consistency of: Regular Your liquids should be the consistency of: Regular/Thin Discharge Activity: Return to Normal Activity Call your doctor if you observe: Fever of 101 or Higher, Shortness of breath, Chest pain, - - worsening pain and swelling of legs Allergies/Adverse Reactions: Allergies venom-honey bee [bee venom (honey bee)] Allergy (Verified 10/27/17 14:14) Swelling sulfamethoxazole [From Bactrim] Adverse Reaction (Verified 10/27/17 14:14) Upset Stomach trimethoprim [From Bactrim] Adverse Reaction (Verified 10/27/17 14:14) Upset Stomach Medications to take at Discharge Aspirin [Aspirin, Baby] 81 mg PO DAILY@0800 10/11/17 Atorvastatin Calcium [Lipitor] 20 mg PO QHS 10/11/17 Gabapentin [Neurontin] 100 mg PO TIDCM 10/11/17 Isosorbide Mononitrate [Imdur] 30 mg PO DAILY 10/11/17 Lisinopril [Zestril] 10 mg PO DAILY 10/11/17 Metoprolol Tartrate [Lopressor (beta khoa)] 50 mg PO BID 10/11/17 Omeprazole 40 mg PO DAILY 10/11/17 Pyridoxine HCl [Vitamin B-6] 100 mg PO DAILY 10/11/17 Sevelamer HCl [Renagel] 800 mg PO TID 10/11/17 Vits A,C,E/Lutein/Minerals [Ocuvite with Lutein Tablet] 1 each PO DAILY 10/11/17 Folic Acid/Vitamin B Comp W-C [Nephrocaps, Renaphro] 1 capsule PO DAILY 10/27/17 Insulin U-500 [Humulin R U-500 ([facility])] 15 unit SC DAILY 10/27/17 Insulin U-500 [Humulin R U-500 (BKC)] 22 unit SC QHS 10/27/17 Amox/Clavulanate Tablet [Augmentin Tablet] 500 mg PO Q24H #7 tab 10/31/17 Doxycycline 100 mg PO BID #14 cap 10/31/17 Furosemide [Lasix] 80 mg PO BID #0 10/31/17 Oxycodone [Oxyir] 5 mg PO Q4H PRN PRN 3 Days #18 tablet 10/31/17 The following prescriptions were given: Oxycodone [Oxyir] 5 mg PO Q4H PRN PRN 3 Days #18 tablet PRN Reason: Pain Amox/Clavulanate Tablet [Augmentin Tablet] 500 mg PO Q24H #7 tab Doxycycline 100 mg PO BID #14 cap Primary Care Physician: Augie Washburn MD [Primary Care Provider] - Within 2 Weeks [facility]: Every Monday, , Monday.
--- NOTE | 2017-10-31 12:23 | PCM.DC.SUM ---
Discharge Date and Diagnosis - Problem List Patient Problems: Active and Suspected Problems (Last Updated 10/27/17 @ 19:34 by Anca Gregorio DO) Periapical abscess (Acute) SIRS (systemic inflammatory response syndrome) (Acute) Left leg cellulitis (Acute) Date of Admission: 10/27/17 Date of Discharge: 10/31/17 - Primary Discharge Diagnosis Active and Suspected Problems (Last Updated 10/27/17 @ 19:34 by Anca Gregorio DO) Nausea and vomiting (Acute) Fever and chills (Acute) Malaise and fatigue (Acute) - Secondary Discharge Diagnosis Chronic Problems (Last Updated 10/27/17 @ 19:34 by Anca Gregorio DO) Morbid obesity with BMI of 40.0-44.9, adult (Chronic) Diabetes mellitus, type II (Chronic) Renal failure (Chronic) Noncompliance (Chronic) CHF (congestive heart failure) (Chronic) TIA (transient ischemic attack) (Chronic) Chronic respiratory failure with hypoxia (Chronic) HTN (hypertension) (Chronic) Acute on chronic diastolic CHF (congestive heart failure) (Chronic) Hyperlipidemia (Chronic) Diabetic neuropathy (Chronic) Anemia (Chronic) SELMA (obstructive sleep apnea) (Chronic) Hospital Course and Treatment Imaging Results: Clinical Impression(s) from Imaging Studies Chest X-Ray 10/27/17 15:00 IMPRESSION: Persistent moderate cardiomegaly. Central vascular congestion. No pleural effusion. No pneumothorax. Electronically Signed: Rod Cabrera MD at 15:19 EDT , Service support , Chest CT 10/27/17 16:47 IMPRESSION: Mild streaky fibrotic and/or atelectatic changes of the lung bases. Cardiomegaly. Coronary arterial calcifications are seen. There are scattered nonpathologically enlarged mediastinal nodes. There is dilatation of the main, left, and right pulmonary arteries. The main pulmonary artery measures up to 4.0 cm in diameter. This may be associated with pulmonary hypertension. Mild degenerative changes of the visualized lower thoracic spine. Electronically Signed: Mauri De Leon MD at 17:51 EDT , Service support , Abdomen Ultrasound 10/30/17 11:15 IMPRESSION: Hepatomegaly. No gallstones. Electronically Signed: Gary Aguilar DO at 21:34 EDT , Service support , Facial/Sinus 10/30/17 12:[address]: [address] evidence of any suspicious paramandibular abscess or phlegmon and no CT evidence of buccal space abscess or phlegmon. 2. Small periapical lucency in the right lower second molar tooth. 3. Lucency right posterior lower second molar tooth. 4. Small periapical lucency in the more anterior root of the right upper second molar. 5. Small periapical lucency in the posterior apical roots of the left upper second molar tooth. Electronically Signed: Jason Pollard MD at 14:19 EDT , Service support , [place] Operations: None Summary of Care Provided: The patient is a 47 year old M presents with SIRS. No clear source of infection was found. Concern for periapical abscess and LLE cellulitis. Seen by ID and recommended empiric treatment with doxycycline and augmentin. 1. SIRS present on admission no clear source identified at this time ID following on empiric Zosyn culture work up so far negative +Blood culture is contaminant, no further work up. treat empirically for cellulitis and periapical abscess 2. Left calf pain: Duplex pending. ?cellulitis no evidence of compartment syndrome at this time. MIRIAM Wallace, would treat empirically for cellulitis with doxycycline. 3. Questionable periapical abscesses empiric augmentin follow up with DDS 4. ESRD HD QTThSa nephrology following.] Discharge Diet: Low fat/ Low Cholesterol, Renal Diet Discharge Activity: Return to Normal Activity Call your doctor if you observe: Fever of 101 or Higher, Shortness of breath, Chest pain, - - worsening pain and swelling of legs Home Medications: Medications to take at Discharge Aspirin [Aspirin, Baby] 81 mg PO DAILY@0800 10/11/17 Atorvastatin Calcium [Lipitor] 20 mg PO QHS 10/11/17 Gabapentin [Neurontin] 100 mg PO TIDCM 10/11/17 Isosorbide Mononitrate [Imdur] 30 mg PO DAILY 10/11/17 Lisinopril [Zestril] 10 mg PO DAILY 10/11/17 Metoprolol Tartrate [Lopressor (beta khoa)] 50 mg PO BID 10/11/17 Omeprazole 40 mg PO DAILY 10/11/17 Pyridoxine HCl [Vitamin B-6] 100 mg PO DAILY 10/11/17 Sevelamer HCl [Renagel] 800 mg PO TID 10/11/17 Vits A,C,E/Lutein/Minerals [Ocuvite with Lutein Tablet] 1 each PO DAILY 10/11/17 Folic Acid/Vitamin B Comp W-C [Nephrocaps, Renaphro] 1 capsule PO DAILY 10/27/17 Insulin U-500 [Humulin R U-500 ([facility])] 15 unit SC DAILY 10/27/17 Insulin U-500 [Humulin R U-500 ([facility])] 22 unit SC QHS 10/27/17 Amox/Clavulanate Tablet [Augmentin Tablet] 500 mg PO Q24H #7 tab 10/31/17 Doxycycline 100 mg PO BID #14 cap 10/31/17 Furosemide [Lasix] 80 mg PO BID #0 10/31/17 Oxycodone [Oxyir] 5 mg PO Q4H PRN PRN 3 Days #18 tablet 10/31/17 Following Prescrptions Were Given to Patient: Oxycodone [Oxyir] 5 mg PO Q4H PRN PRN 3 Days #18 tablet PRN Reason: Pain Amox/Clavulanate Tablet [Augmentin Tablet] 500 mg PO Q24H #7 tab Doxycycline 100 mg PO BID #14 cap Primary Care Physician: Augie Washburn MD [Primary Care Provider] - Within 2 Weeks [facility], , Monday. Disposition: Home Minutes spent on discharge:: 32 Patient Condition:: Fair Medical Necessity - Tobacco Use Smoking Status: Never smoker Tobacco Use: Non-smoker Meaningful Use Info Meaningful Use Diagnoses (Choose all that apply): None applicable Code Visit Inpatient E&M: 67085 Disch Hosp
--- NOTE | 2017-10-31 12:26 | DS.PCM_ITS ---
Discharge Date and Diagnosis - Problem List Patient Problems: Active and Suspected Problems (Last Updated 10/27/17 @ 19:34 by Anca Gregorio DO) Periapical abscess (Acute) SIRS (systemic inflammatory response syndrome) (Acute) Left leg cellulitis (Acute) Date of Admission: 10/27/17 Date of Discharge: 10/31/17 - Primary Discharge Diagnosis Active and Suspected Problems (Last Updated 10/27/17 @ 19:34 by Anca Gregorio DO) Nausea and vomiting (Acute) Fever and chills (Acute) Malaise and fatigue (Acute) - Secondary Discharge Diagnosis Chronic Problems (Last Updated 10/27/17 @ 19:34 by Anca Gregorio DO) Morbid obesity with BMI of 40.0-44.9, adult (Chronic) Diabetes mellitus, type II (Chronic) Renal failure (Chronic) Noncompliance (Chronic) CHF (congestive heart failure) (Chronic) TIA (transient ischemic attack) (Chronic) Chronic respiratory failure with hypoxia (Chronic) HTN (hypertension) (Chronic) Acute on chronic diastolic CHF (congestive heart failure) (Chronic) Hyperlipidemia (Chronic) Diabetic neuropathy (Chronic) Anemia (Chronic) SELMA (obstructive sleep apnea) (Chronic) Hospital Course and Treatment Imaging Results: Clinical Impression(s) from Imaging Studies Chest X-Ray 10/27/17 15:00 IMPRESSION: Persistent moderate cardiomegaly. Central vascular congestion. No pleural effusion. No pneumothorax. Electronically Signed: Rod Cabrera MD at 15:19 EDT , Service support , Chest CT 10/27/17 16:47 IMPRESSION: Mild streaky fibrotic and/or atelectatic changes of the lung bases. Cardiomegaly. Coronary arterial calcifications are seen. There are scattered nonpathologically enlarged mediastinal nodes. There is dilatation of the main, left, and right pulmonary arteries. The main pulmonary artery measures up to 4.0 cm in diameter. This may be associated with pulmonary hypertension. Mild degenerative changes of the visualized lower thoracic spine. Electronically Signed: Mauri De Leon MD at 17:51 EDT , Service support , Abdomen Ultrasound 10/30/17 11:15 IMPRESSION: Hepatomegaly. No gallstones. Electronically Signed: Gary Aguilar DO at 21:34 EDT , Service support , Facial/Sinus 10/30/17 12:35 IMPRESSION: 1. No CT evidence of any suspicious paramandibular abscess or phlegmon and no CT evidence of buccal space abscess or phlegmon. 2. Small periapical lucency in the right lower second molar tooth. 3. Lucency right posterior lower second molar tooth. 4. Small periapical lucency in the more anterior root of the right upper second molar. 5. Small periapical lucency in the posterior apical roots of the left upper second molar tooth. Electronically Signed: Jason Pollard MD at 14:19 EDT , Service support , [place] Operations: None Summary of Care Provided: The patient is a 47 year old M presents with SIRS. No clear source of infection was found. Concern for periapical abscess and LLE cellulitis. Seen by ID and recommended empiric treatment with doxycycline and augmentin. 1. SIRS * present on admission * no clear source identified at this time * ID following * on empiric Zosyn * culture work up so far negative * +Blood culture is contaminant, no further work up. * treat empirically for cellulitis and periapical abscess 2. Left calf pain: * Duplex pending. * ?cellulitis * no evidence of compartment syndrome at this time. * DW Dr. Wallace, would treat empirically for cellulitis with doxycycline. 3. Questionable periapical abscesses * empiric augmentin * follow up with DDS 4. ESRD * HD QTThSa * nephrology following.] Discharge Diet: Low fat/ Low Cholesterol, Renal Diet Discharge Activity: Return to Normal Activity Call your doctor if you observe: Fever of 101 or Higher, Shortness of breath, Chest pain, - - worsening pain and swelling of legs Home Medications: Medications to take at Discharge Aspirin [Aspirin, Baby] 81 mg PO DAILY@0800 10/11/17 Atorvastatin Calcium [Lipitor] 20 mg PO QHS 10/11/17 Gabapentin [Neurontin] 100 mg PO TIDCM 10/11/17 Isosorbide Mononitrate [Imdur] 30 mg PO DAILY 10/11/17 Lisinopril [Zestril] 10 mg PO DAILY 10/11/17 Metoprolol Tartrate [Lopressor (beta khoa)] 50 mg PO BID 10/11/17 Omeprazole 40 mg PO DAILY 10/11/17 Pyridoxine HCl [Vitamin B-6] 100 mg PO DAILY 10/11/17 Sevelamer HCl [Renagel] 800 mg PO TID 10/11/17 Vits A,C,E/Lutein/Minerals [Ocuvite with Lutein Tablet] 1 each PO DAILY Folic Acid/Vitamin B Comp W-C [Nephrocaps, Renaphro] 1 capsule PO DAILY Insulin U-500 [Humulin R U-500 ([facility])] 15 unit SC DAILY 10/27/17 Insulin U-500 [Humulin R U-500 (BK)] 22 unit SC QHS 10/27/17 Amox/Clavulanate Tablet [Augmentin Tablet] 500 mg PO Q24H #7 tab 10/31/17 Doxycycline 100 mg PO BID #14 cap 10/31/17 Furosemide [Lasix] 80 mg PO BID #0 10/31/17 Oxycodone [Oxyir] 5 mg PO Q4H PRN PRN 3 Days #18 tablet 10/31/17 Following Prescrptions Were Given to Patient: Oxycodone [Oxyir] 5 mg PO Q4H PRN PRN 3 Days #18 tablet PRN Reason: Pain Amox/Clavulanate Tablet [Augmentin Tablet] 500 mg PO Q24H #7 tab Doxycycline 100 mg PO BID #14 cap Primary Care Physician: Augie Washburn MD [Primary Care Provider] - Within 2 Weeks [facility]: Every Monday, , Monday. Disposition: Home Minutes spent on discharge:: 32 Patient Condition:: Fair Medical Necessity - Tobacco Use Smoking Status: Never smoker Tobacco Use: Non-smoker Meaningful Use Info Meaningful Use Diagnoses (Choose all that apply): None applicable Code Visit Inpatient E&M: 50216 Disch Hosp
--- NOTE | 2017-10-31 13:09 | PCM.PN.REN ---
Patient Problems: Active and Suspected Problems (Last Updated 10/27/17 @ 19:34 by Anca Gregorio DO) Left leg cellulitis (Acute) SIRS (systemic inflammatory response syndrome) (Acute) Periapical abscess (Acute) Subjective: seen at start of dialysis. Still complains of left leg swelling and pain. Remains afebrile. Blood cx from dialysis no growth so far. - Physical Exam General: Alert, Oriented x3, Cooperative, No apparent distress Oral: Moist Mucosa Lungs: Clear to auscultation Abdomen: Soft, Non Tender, Obese Extremities: Edema - chronic, tender LLE Skin: - - mild cellulitis LLE Vital Signs Temp Pulse Resp BP Pulse Ox 98 F 75 16 146/69 H 96 10/31/17 09:00 10/31/17 11:06 10/31/17 09:00 10/31/17 09:00 10/31/17 09:00 Oxygen Flow Rate (L/min) 1 Oxygen Delivery Method Room Air Weight: 126.6 kg Body Mass Index (BMI) 43.7 Intake and Output for Last 24 Hours 10/29/17 10/30/17 10/31/17 23:59 23:59 23:59 Intake Total 1180.4 / 1180.4 1160 / 1160 530 / 530 Output Total 100 / 100 300 / 300 Balance 1080.4 / 1080.4 860 / 860 530 / 530 Microbiology Past 72 Hours 10/28/17 15:30 Blood Culture - Preliminary Blood Culture (Wb) - Dialysis/Fistula No growth in 48 hours. 10/28/17 12:40 Urine Culture - Final Urine, Clean Catch Culture exhibits no growth. Laboratory Tests Past 24 Hrs 10/31/17 10/31/17 05:20 05:20 WBC 6.7 RBC 2.88 L Hgb 8.2 L Hct 25.3 L MCV 87.8 MCH 28.5 MCHC 32.4 RDW 14.2 RDW Differential 45.4 H Plt Count 257 MPV 9.6 Immature Gran % (Auto) 1.100 H Neut % (Auto) 64.4 Lymph % (Auto) 13.7 L [place] % (Auto) 14.3 H Eos % (Auto) 6.0 H Baso % (Auto) 0.5 Absolute Neuts (auto) 4.3 Absolute Lymphs (auto) 0.91 Total Counted Not Reportable Sodium 128 L Potassium 4.5 Chloride 88 L Carbon Dioxide 27.0 BUN 74 H Creatinine 8.47 H* Estim Creat Clear Calc 9.52 Est GFR (MDRD) Af Amer 9 L Est GFR (MDRD) Non-Af 7 L BUN/Creatinine Ratio 8.7 L Glucose 129 H Calcium 7.6 L Phosphorus 8.7 H Albumin 2.5 L POC Glucose 10/31/17 10/31/17 10/30/17 12:15 06:42 21:47 POC Glucose 153 H 160 H 214 H 10/30/17 17:36 POC Glucose 92 Medical Necessity - Tobacco Use Smoking Status: Never smoker Tobacco Use: Non-smoker Assessment/Plan Active and Suspected Problems (Last Updated 10/27/17 @ 19:34 by Anca Gregorio DO) Left leg cellulitis (Acute) SIRS (systemic inflammatory response syndrome) (Acute) Periapical abscess (Acute) 1. ESRD HD today. 2.Bacteremia with STAPH epi on 1 set cx on peripheral culture suspect due to contaminant. ID following 3. Noncompliance with medical tx, high fluid gains, dialysis treatments, dietary. Stop iv fluids. Has chronic swelling. Increase Lasix to 80 mg twice a day. Venous doppler no DVT LLE 4. HTN stable 5. DM2 primary care mgmt 6. Anemia of chronic disease. Epo on dialysis. 7. Morbid obesity/sleep apnea. 8. Hyperphosphatemia. Increase Renvela to 2 with each meal
--- NOTE | 2017-10-31 13:42 | CASEMGMT ---
Discharge orders placed. Call to [facility] at this time to update them on pt discharge, voice understanding, and d/c summary/instructions faxed to them at this time. Neville MACARIO CM
--- NOTE | 2017-11-01 17:03 | CASEMGMT ---
CALLBACK: Follow-up phone call placed to patient. Agustin states that he has his prescriptions and has begun taking them. Diet reviewed with patient and patient denies questions. He does state that he is on a fixed income and has to put food in the home. Patient indicates that it is difficult to follow his diet due to income restrictions. I reviewed that patient has dialysis tomorrow. Patient states his ride fell through with [facility]. He states they told him he was supposed to have paperwork turned in by a certain date and didn't do so. Patient does mention that he could attempt to see taxi vouchers. I also suggested that patient contact the dialysis center if he is unable to get taxi vouchers. Instructed patient that it is of utmost importance that he makes it to his dialysis appointment. Patient states he was hoping to speak with a geriatric social work professor during his inpatient visit re: I'm late on my rent and behind on bills. I encouraged patient to speak with [facility] and request to speak with a telehealth case manager for assistance with this. Patient denies further concerns/questions.
== END 2017-10-31 16:30 | disposition home or self-care (01) | DRG 871 ==
LOC: ED 15:19 → PCU 18:01
PROVIDERS: Internal Medicine; Internal Medicine Nephrology; Admitting Provider Internal Medicine; Emergency Provider Emergency Medicine; Family Provider Internal Medicine; PCP Internal Medicine
DX: A41.9 Sepsis, unspecified organism (principal); N18.6 End stage renal disease; I50.33 Acute on chronic diastolic (congestive) heart failure; L03.116 Cellulitis of left lower limb; I13.2 Hypertensive heart and chronic kidney disease with heart failure and with stage 5 chronic kidney disease, or end stage renal disease; J96.11 Chronic respiratory failure with hypoxia; Z68.41 Body mass index [BMI] 40.0-44.9, adult; D63.1 Anemia in chronic kidney disease; K04.7 Periapical abscess without sinus; K21.9 Gastro-esophageal reflux disease without esophagitis; E11.22 Type 2 diabetes mellitus with diabetic chronic kidney disease; I27.20 Pulmonary hypertension, unspecified; E11.40 Type 2 diabetes mellitus with diabetic neuropathy, unspecified; G47.33 Obstructive sleep apnea (adult) (pediatric); E78.5 Hyperlipidemia, unspecified; E83.39 Other disorders of phosphorus metabolism; E66.01 Morbid (severe) obesity due to excess calories; Z86.73 Personal history of transient ischemic attack (TIA), and cerebral infarction without residual deficits; Z99.2 Dependence on renal dialysis; Z91.15 Patient's noncompliance with renal dialysis; Z91.19 Patient's noncompliance with other medical treatment and regimen; Z79.4 Long term (current) use of insulin; Z79.82 Long term (current) use of aspirin; Z79.899 Other long term (current) drug therapy
CPT/HCPCS: 36415; 36600; 70487; 71045; 71250; 76705; 80053; 80069; 80202; 81001; 82803; 82962; 83605; 83690; 84484; 85025; 85027; 87040; 87086; 87149; 87804; 90937; 93005; 93971; 94640; 97110; 97116; 97161; 97166; 97530; 97802; 99285; J0885; J1756; J7030; J7040; J7050; Q9967; A4216; G0257; J2405

== ENCOUNTER → 2017-12-20 16:20 | Outpatient (CLI) | payer MEDICARE, MEDICAID, SELFPAY ==
[2017-12-20 20:36] LABS: M R Staph aureus DNA By PCR Negative (Negative); Probe Check PASS; Specimen Processing Control PASS
== END ==
PROVIDERS: Family Provider Internal Medicine; PCP Internal Medicine; Visit Provider Ophthalmology
DX: Z22.321 Carrier or suspected carrier of Methicillin susceptible Staphylococcus aureus (principal)
CPT/HCPCS: 87641

== ENCOUNTER 2018-03-23 18:31 | Emergency (ER) | payer MEDICARE, SELFPAY ==
[2018-03-23 18:33] VITALS: BP 199/97; PULSE 94; RESP 15; TEMP 37.2; O2SAT 94; BMI 45.5
--- NOTE | 2018-03-23 19:06 | EKG12_ITS ---
Test Reason : EXAM Blood Pressure : / mmHG Vent. Rate : 090 BPM Atrial Rate : 090 BPM P-R Int : 136 ms QRS Dur : 080 ms QT Int : 370 ms P-R-T Axes : 004 -03 008 degrees QTc Int : 452 ms Normal sinus rhythm Normal ECG Confirmed by HOUSTON LOMELI, CANDIE ([id number]), newspaper or periodical editor DEREK KEARNS ([id number]) on 03/28/2018 8:45:28 AM Referred By: ROLANDA Confirmed By:CANDIE CONRAD MD
[2018-03-23 19:34] LABS: Absolute Lymphocyte Count 1.32 X10^3/ul (0.83-4.51); Absolute Neutrophil Count 6.5 X10^3/uL (2.0-7.7); Basophil# 0.04 X10^3/uL; Basophil% 0.5 % (0-1); Eosinophil# 0.31 X10^3/uL; Eosinophils% 3.5 % (0-5); Hematocrit 34.2 % (40-54); Hemoglobin 11.2 g/dl (13.0-16.5); Lymphocyte # 1.32 X10^3/ul (4.0); Lymphocyte % 14.9 % (19-41); Mean Corp Hgb Conc 32.7 g/gl (32-36); Mean Corpuscular Hgb 29.9 pg (27.0-32.0); Mean Corpuscular Volume 91.4 fL (80-94); Monocyte# 0.66 X10^3/uL; Monocyte% 7.5 % (0-10); Neutrophil # 6.47 X10^3/uL (2.7-7.7); Platelet Count 200 K/mm3 (150-450); RBC Distribution Width CV 14.4 % (11.6-14.6); RBC Distribution Width SD 46.4 fl (35.1-43.9); Red Blood Count 3.74 M/mm3 (4.6-6.2); White Blood Count 8.9 K/mm3 (4.4-11.0)
[2018-03-23 19:43] LABS: POSITIVE COUNT NO; POSITIVE DIFFERENTIAL NO; POSITIVE MORPHOLOGY NO
[2018-03-23 19:57] LABS: AST(SGOT) 27 U/L (15-37); Alanine Aminotransfer ALT/SGPT 33 U/L (16-61); Alkaline Phosphatase 106 U/L (45-117); Anion Gap 12 (5-15); BUN 60 mg/dL (7-18); BUN/Creat Ratio 9.6 RATIO (10-20); Bilirubin, Direct 0.08 mg/dL (0.00-0.30); Calcium,Total 8.1 mg/dL (8.5-10.1); Chloride 100 mmol/L (98-107); Creatinine, Serum 6.26 mg/dL (0.70-1.30); EST Glomerular Filtration Rate 10 mL/min (>60); Est Glom Filt Rate - Afr Amer 12 mL/min (>60); Estimated Creatinine Clearance 12.88 ml/min; Globulin 4.1 g/dL (2.2-4.2); Glucose 213 mg/dL (74-106); Potassium 4.7 mmol/L (3.5-5.1); Protein, Total 7.1 g/dL (6.4-8.2); Sodium Level 138 mmol/L (136-145)
[2018-03-23 20:56] VITALS: BP 193/105; PULSE 97; RESP 16; O2SAT 97
--- NOTE | 2018-03-23 20:56 | ED.RN ---
pt with low 02 sats when sleeping. pt 85% on ra. pt hx of sleep apnea. this rn applied 2l nc. pt now 98% dr. andre informed of o2 and elevated bp. waiting on further orders, will conitnue to monitor.
[2018-03-23] MEDS: Metoprolol Tartrate 50 MG Tablet PO (21:58)
[2018-03-23] MEDS: Lisinopril 10 MG Tablet PO (21:58)
[2018-03-23 22:27] VITALS: BP 171/95; PULSE 87; RESP 14; O2SAT 97
--- NOTE | 2018-03-23 22:29 | ED.VISSUMM ---
- ER Visit Summary Date of Service: 03/23/18 Chief Complaint: Weakness History of Present Illness: The patient is a 47 M who woke this morning with generalized weakness and fatigue. Patient did have dialysis yesterday. Family states they did not pull as much fluid as normal yesterday because of low blood pressure. He felt well yesterday evening and when he went to bed. When he woke up this morning he just felt weak and tired. Family states he slept most the day. He did not eat but he did drink. He did not take his medications today. Patient did note some edema to his right hand, but it is not particularly painful. Past history significant for TIA, CHF, diabetes, hypertension, high cholesterol, anasarca, pulmonary hypertension, sleep apnea. Physical Examination: Blood pressure is 199/97, temperature 99, heart rate 94, respiratory rate 15, pulse ox 94% on room air. Patient sitting upright in bed. He is in no acute distress and answers questions appropriately. Heart is regular rate and rhythm. No lung sounds are clear. Abdomen is soft and nontender. Active bowel sounds noted throughout. Extremity examination significant for fistula in the right upper extremity with good thrill. He has 1+ edema that is symmetric throughout. Test Results: EKG is sinus at 90 with no sign of acute ischemia. CBC was normal white count hemoglobin 11.2. Chemistry studies reveal normal potassium. Glucose is 213. BUN is 60 and creatinine is 6.26. LFTs normal. Emergency Department Course and Treatment: Patient was given his normal dose of lisinopril and metoprolol which she had not taken today. On repeat evaluation he is resting comfortably. Test results are discussed with at bedside. At this time patient be discharged to home and will follow up tomorrow for his dialysis as scheduled. I do not see any focal signs of infection. Treatment Plan: [] Disposition: Discharge Impression: Generalized weakness with fatigue This note was generated with [employer] dictation software. It may contain incorrect words, spelling, and punctuation that were not noted in review of the chart prior to signing ED Disposition - Plan for ED Patient: Disposition: Home or Assisted Living Chief Complaint: Weakness Instructions: ED Weakness [facility] Referrals: Augie Washburn MD [Primary Care Provider] - Additional Instructions: Follow-up for dialysis tomorrow as scheduled.
[2018-03-23 22:43] VITALS: BP 160/73; PULSE 78; RESP 16; O2SAT 97
== END 2018-03-23 22:44 | disposition home or self-care (01) ==
PROVIDERS: Emergency Provider Emergency Medicine; Family Provider Internal Medicine; PCP Internal Medicine
DX: R53.1 Weakness (principal); R53.83 Other fatigue; I11.0 Hypertensive heart disease with heart failure; I50.9 Heart failure, unspecified; I27.20 Pulmonary hypertension, unspecified; E11.9 Type 2 diabetes mellitus without complications; E78.00 Pure hypercholesterolemia, unspecified; Z79.4 Long term (current) use of insulin; Z79.82 Long term (current) use of aspirin; Z79.899 Other long term (current) drug therapy; Z86.73 Personal history of transient ischemic attack (TIA), and cerebral infarction without residual deficits
CPT/HCPCS: 80048; 80076; 85025; 93005; 99284; A4216

== ENCOUNTER → 2018-04-14 14:10 | Outpatient (CLI) | payer MEDICARE, SELFPAY | PROVIDERS: Family Provider Internal Medicine; PCP Internal Medicine; Referring Provider Internal Medicine Nephrology; Visit Provider Internal Medicine Nephrology | DX: E87.5 Hyperkalemia (principal) | CPT/HCPCS: 84132 ==

== ENCOUNTER 2018-04-17 04:26 | Emergency (ER) | payer MEDICARE, SELFPAY ==
[2018-04-17 04:27] VITALS: BP 166/74; PULSE 80; RESP 16; TEMP 36.7; O2SAT 95; BMI 46.4
--- NOTE | 2018-04-17 04:30 | ED.RN ---
rn called for ekg, pulled old ekgs for
--- NOTE | 2018-04-17 04:39 | EKG12_ITS ---
Test Reason : CP Blood Pressure : / mmHG Vent. Rate : 080 BPM Atrial Rate : 080 BPM P-R Int : 136 ms QRS Dur : 086 ms QT Int : 390 ms P-R-T Axes : 016 013 252 degrees QTc Int : 449 ms Normal sinus rhythm Nonspecific T wave abnormality Abnormal ECG Confirmed by GIL LOMELI, ELIZABETH ([id number]), television news video editor DEREK KEARNS ([id number]) on 04/19/2018 11:34:00 AM Referred By: Anca Gregorio Confirmed By:ELIZABETH CORDERO MD
--- NOTE | 2018-04-17 04:39 | RAD_ITS ---
STUDY: X-RAY CHEST REASON FOR EXAM: Male, 47 years old. Chest pain which radiates into the left arm. TECHNIQUE: Single AP portable view of the chest. COMPARISON: 10/27/2017. FINDINGS: There is apparent asymmetric increased density overlying the right lung for which also overlies the peripheral soft tissues. This may represent a technical artifact or may represent asymmetric soft tissue thickness. Otherwise, the lungs are clear and expanded. There is no demonstrated pleural abnormality. There is borderline cardiomegaly. Normal mediastinum and esmer. Normal visualized pulmonary arteries. Normal visualized aortic arch and descending thoracic aorta. There are no visualized acute osseous abnormalities. . There is no demonstrated abnormality of the visualized soft tissue structures of the upper abdomen. RAD/Chest 1 View (Portable) IMPRESSION: Borderline heart size. No evidence for acute cardiopulmonary pathology. Electronically Signed: Franklin Crews MD at 5:30 EDT , Service support ,
--- NOTE | 2018-04-17 04:41 | CT_ITS ---
STUDY: CT ABDOMEN AND PELVIS WITHOUT CONTRAST REASON FOR EXAM: Male, 47 years old. Diffuse abdominal pain and distention. Chest pain with left arm pain and nausea for one day. History of CHF, hypertension, [place], pulmonary hypertension. Dialysis patient. RADIATION DOSAGE (If Supplied By Facility): CTDIvol = ( 31.48 ) mGy, DLP = ( 1690.90 ) mGycm TECHNIQUE: Transaxial images were obtained from the dome of the diaphragm to the symphysis pubis without oral contrast, and without intravenous contrast. Sagittal and coronal images were reconstructed. Individualized dose optimization techniques were used for this CT. COMPARISON: CT scan chest 10/27/2017. CT scan abdomen and pelvis 12/03/2013. FINDINGS: There are small bilateral pleural effusions. There are areas of mild groundglass type infiltration in the lower lung flores which might represent inflammatory process or CHF. As seen on axial image 1, there is a 1.1 x 0.9 cm noncalcified left lower lobe lung nodule (average diameter 1 cm). As seen on axial image 13, there is an 8 mm noncalcified left lower lobe lung nodule. Neither of these nodules is seen on the previous CT scan of the chest. The visualized portions of the heart are within normal limits. The liver is enlarged and there is decreased attenuation of the liver, consistent with fatty infiltration or Normal gallbladder and extrahepatic biliary system. Normal spleen. Normal pancreas. Normal bilateral adrenal glands. Normal right kidney. Normal left kidney. Perinephric Normal visualized stomach. Normal small intestine. Normal colon. The appendix is visualized posterior to the cecum on axial images 115 133 and it appears normal.. Normal abdominal aorta. Normal inferior vena cava. Normal retroperitoneum. Normal urinary bladder. There is mild chronic infiltration of subcutaneous fat in the anterior mid and lower abdomen, probably due to subcutaneous injections. There are multilevel degenerative changes of the visualized lumbar spine. CT/Abdomen/Pelvis without Cont IMPRESSION: New finding of 1 cm and 8 mm noncalcified left lower lung nodules, which are not seen on CT scan chest done earlier this year. Recommend follow-up CT scan of the chest. Small bilateral pleural effusions. Groundglass type infiltration in the lower lung flores bilaterally, which may represent inflammatory process or CHF. Hepatomegaly with fatty infiltration of the liver. No evidence for acute pathology in the abdomen or pelvis. No evidence for diverticulitis or appendicitis. No demonstrated urinary calculi or hydronephrosis. No evidence for bowel obstruction or ileus. No evidence for ascites. Electronically Signed: Franklin Crews MD at 5:45 EDT , Service support ,
[2018-04-17] MEDS: Mag Hydrox/Al Hydrox/Simeth 30 ML UDC PO (04:47)
--- NOTE | 2018-04-17 04:47 | ED.DCSUM_ITS ---
History of Present Illness Chief Complaint: Chest Pain Informant: Patient Onset: Yesterday - around 10 hrs Context: - - unk onset Timing: Continuous Quality: sharp Location: left chest w/o radiation Current Severity: Mild Maximum Severity: Moderate Worsened by: somewhat by deep inspiration Relieved by: nothing Associated Symptoms: a little sob. sleepy all day yesterday. abd distended and painful yest. Narrative: Patient is lethargic and is poor historian, brought in by EMS because of left- sided chest pain has been unrelenting for the past 10 hours at least. assists with history. States that his abdomen has been distended and feeling tight/painful diffusely all day this past day, but not before that. According to past records in the EMR, he has congestive heart failure, chronic renal insufficiency but still makes urine and is on Lasix 80 mg twice daily, he states he has been having the same urine output. He states he has the same edema in his legs as usual and has not been drinking too much fluid. He has had a nonproductive cough lately. No fevers. He has been compliant with his hemodialysis. - Past Medical History (1) Anemia Status: Chronic (2) CHF (congestive heart failure) Status: Chronic (3) Chronic respiratory failure with hypoxia Status: Chronic (4) Diabetes mellitus, type II Status: Chronic (5) Diabetic neuropathy Status: Chronic (6) HTN (hypertension) Status: Chronic (7) Hyperlipidemia Status: Chronic (8) Morbid obesity with BMI of 40.0-44.9, adult Status: Chronic (9) Noncompliance Status: Chronic (10) SELMA (obstructive sleep apnea) Status: Chronic (11) Pulmonary hypertension Status: Chronic (12) Renal failure Status: Chronic (13) TIA (transient ischemic attack) Status: Chronic Past Medical History - Allergies and Home Meds Allergies/Adverse Reactions: Allergies venom-honey bee [bee venom (honey bee)] Allergy (Verified 04/17/18 04:39) Swelling sulfamethoxazole [From Bactrim] Adverse Reaction (Verified 04/17/18 04:39) Upset Stomach trimethoprim [From Bactrim] Adverse Reaction (Verified 04/17/18 04:39) Upset Stomach Primary Care Physician: Augie Washburn MD [Primary Care Provider] - Surgical History: tonsillectomy, - - AV fistula in right arm. Smoking Status: Never smoker - Family History Maternal Family History: Family History (Last Reviewed 02/26/18 @ 08:05 by LATASHA Osullivan) Mother Hypertension Heart disease Diabetes Father Hypertension Heart disease Brother Heart disease Family History: Reports: Diabetes, Heart Disease, Hypertension, Renal Disease Paternal Family History: Family History (Last Reviewed 02/26/18 @ 08:05 by LATASHA Osullivan) Mother Hypertension Heart disease Diabetes Father Hypertension Heart disease Brother Heart disease Family History: Reports: Cancer - liver, Diabetes, Heart Disease Review of Systems General: Denies: Chills, Fever, Sweats Eyes: Denies: Visual changes - bilaterally, Diplopia ENT: Denies: Rhinorrhea, Sore throat Cardiovascular: Reports: Chest pain. Denies: Palpitations, Heart racing Respiratory: Reports: Dyspnea, Cough. Denies: Sputum, Dyspnea on exertion Gastrointestinal: Reports: Abdominal pain - and distension. Denies: Nausea, Vomiting, Diarrhea, Melena, Hematochezia Genitourinary: Denies: Dysuria, Hematuria, Frequency Musculoskeletal: Reports: Swelling. Denies: Back pain, Extremity Pain Skin: Denies: Rash Neurological: Denies: Headache, Weakness, Numbness Endocrine: Denies: Polyuria, Polydipsia Allergy: Denies: Swelling of the mouth, Swelling of the tongue Physical Exam Vital Signs/Narrative: Vital Signs Temp Pulse Resp BP Pulse Ox 04/17/18 04:27 98.1 F 80 16 166/74 H 95 Inital Vital Signs reviewed: Yes General: Well nourished, Well developed, Obese Head: Normocephalic, Atraumatic Eyes: Perrl, EOMI ENT: Moist mucous membranes, No rhinorrhea Neck: Supple, Nontender Cardiovascular: Regular rate, Regular rhythm, No murmurs Respiratory: No distress, CTA bilaterally, Chest nontender, Diminished - throughout, symmetrically. Abdomen: Soft, Nontender, Normal bowel sounds. Negative for: Nondistended - diffusely distended, stretch vasques evident on skin in bilat flanks. no santana mcclain or Ronnie signs. Back: Nontender, Normal Inspection Extremities: Nontender, Edema - 1+ BLE Skin: Normal color, No rash Neurological: Alert, Oriented x3, Cranial nerves II-XII grossly intact, Normal Strength, Normal Sensation, Lethargic - able to answer questions and attempt to converse. GCS 14 (eyes = 3), Weakness - generally symmetrically weak Psychological: Normal affect Diagnostic/Tx/Re-eval Impressions Chest X-Ray 04/17/18 04:39 IMPRESSION: Borderline heart size. No evidence for acute cardiopulmonary pathology. Electronically Signed: Franklin Crews MD at 5:30 EDT , Service support , Abdomen/Pelvis CT 04/17/18 04:41 IMPRESSION: New finding of 1 cm and 8 mm noncalcified left lower lung nodules, which are not seen on CT scan chest done earlier this year. Recommend follow-up CT scan of the chest. Small bilateral pleural effusions. Groundglass type infiltration in the lower lung flores bilaterally, which may represent inflammatory process or CHF. Hepatomegaly with fatty infiltration of the liver. No evidence for acute pathology in the abdomen or pelvis. No evidence for diverticulitis or appendicitis. No demonstrated urinary calculi or hydronephrosis. No evidence for bowel obstruction or ileus. No evidence for ascites. Electronically Signed: Franklin Crews MD at 5:45 EDT , Service support , 04/17/18 04:39 Chest 1 View (Portable) [RAD] Stat 04/17/18 04:41 CT Abd [Abdomen/Pelvis without Cont] [CT] Stat Laboratory Results 04/17/18 04/17/18 04/17/18 04:45 04:45 05:06 WBC 9.3 RBC 2.96 L Hgb 8.9 L Hct 27.6 L MCV 93.2 MCH 30.1 MCHC 32.2 RDW 13.7 RDW Differential 45.9 H Plt Count 202 MPV 10.0 Immature Gran % (Auto) 0.600 Neut % (Auto) 79.1 H Lymph % (Auto) 11.5 L [place] % (Auto) 6.8 Eos % (Auto) 1.8 Baso % (Auto) 0.2 Absolute Neuts (auto) 7.4 Absolute Lymphs (auto) 1.07 Total Counted Not Reportable Specimen Type ART Sample Site L Radial pH 7.35 Bicarbonate Actual 24.2 POC Total CO2 26 Base Excess -1 O2 Saturation 94 L ABG pCO2 44.1 ABG pO2 76 Brennan Test POS O2 Delivery Device Nasal Can Liter Flow 2.0 Blood Gas Notified Whom ED MD Blood Gas Notified Time 510 Sodium 142 Potassium 4.6 Chloride 104 Carbon Dioxide 25.0 Anion Gap 13 BUN 88 H Creatinine 7.49 H* Estim Creat Clear Calc 10.77 Est GFR (MDRD) Af Amer 10 L Est GFR (MDRD) Non-Af 8 L BUN/Creatinine Ratio 11.7 Glucose 91 Calcium 7.6 L Total Bilirubin 0.80 AST 14 L ALT 26 Alkaline Phosphatase 102 Troponin I < 0.015 Total Protein 6.6 Albumin 2.5 L Globulin 4.1 Albumin/Globulin Ratio 0.6 L - Rhythm Strip Rhythm Strip: Sinus Rhythm Rate: 85 Ectopy: None - EKG Initial EKG Interpretation: Sinus Rhythm, No Acute Injury Pattern, Non-Specific ST Changes - inf-laterally Prior: Unchanged - Medical Decision Making Patient is somnolent, but easy to arouse and conversational. I obtained an ABG to look at his PCO2, however it really is unremarkable, with a PCO2 of 44, PO2 of 76, and pH is 7.347. His chest x-ray is unremarkable, although on the CT of his abdomen/pelvis, some groundglass opacities were seen in his lower lobes, which could be consistent with congestive heart failure, which she has a history of. However I do not think he is in overt failure, his vital signs are excellent and his lungs sound clear clinically, albeit limited due to his obesity. He is anemic but the rest of his labs are unremarkable with the exception of his BUN of 88 and his creatinine over 7. However, he is due for dialysis today. I suspect this will help the luminary CT findings, his edema, and his BUN and creatinine. At this time there is no reason to suggest that his somnolence is due to a medical emergency. He is not septic, and he is not hypoxic on his home oxygen. After a GI cocktail, his left sided chest discomfort resolved. With a negative troponin, and this historical feature, this is very unlikely to be acute coronary syndrome. CT of his abdomen pelvis shows no intra-abdominal acute problem, a couple of nodules were noted that were new compared with his last one and he should have repeat chest imaging as an outpatient. His abdominal swelling may be due to fluid retention. At this time I think he is stable to be discharged and attend his 4-hour dialysis session today. Discussed with patient and and they are comfortable with this plan. ED Disposition - Plan for ED Patient: Disposition: Home or Assisted Living Chief Complaint: Chest Pain Diagnosis: CHF (congestive heart failure), ESRD (end stage renal disease) on dialysis, Left sided chest pain, Anemia Instructions: ED Chest Pain NonCardiac Referrals: Augie Washburn MD [Primary Care Provider] - 3-5 Days
[2018-04-17 05:00] VITALS: O2SAT 96
[2018-04-17 05:05] LABS: Absolute Lymphocyte Count 1.07 X10^3/ul (0.83-4.51); Absolute Neutrophil Count 7.4 X10^3/uL (2.0-7.7); Basophil# 0.02 X10^3/uL; Basophil% 0.2 % (0-1); Eosinophil# 0.17 X10^3/uL; Eosinophils% 1.8 % (0-5); Hematocrit 27.6 % (40-54); Hemoglobin 8.9 g/dl (13.0-16.5); Lymphocyte # 1.07 X10^3/ul (4.0); Lymphocyte % 11.5 % (19-41); Mean Corp Hgb Conc 32.2 g/gl (32-36); Mean Corpuscular Hgb 30.1 pg (27.0-32.0); Mean Corpuscular Volume 93.2 fL (80-94); Monocyte# 0.63 X10^3/uL; Monocyte% 6.8 % (0-10); Neutrophil # 7.36 X10^3/uL (2.7-7.7); Neutrophil % 79.1 % (47-70); POSITIVE COUNT NO; POSITIVE DIFFERENTIAL NO; POSITIVE MORPHOLOGY NO; Platelet Count 202 K/mm3 (150-450); RBC Distribution Width CV 13.7 % (11.6-14.6); RBC Distribution Width SD 45.9 fl (35.1-43.9); Red Blood Count 2.96 M/mm3 (4.6-6.2); White Blood Count 9.3 K/mm3 (4.4-11.0)
[2018-04-17 05:11] LABS: Allen Test POS; Base Excess -1 mmol/L (-2 to +2); Bicarbonate 24.2 mmol/L (22-26); Blood Gas Specimen Type ART; O2 Delivery Device Nasal Can; PO2 76 mmHG (75-100); SITE L Radial; SO2 94 % (95-99); Time Given 510; Total Carbon Dioxide 26 mmol/L; pCO2 44.1 mmHg (35-45); pH 7.35 (7.35-7.45)
[2018-04-17 05:24] LABS: ALB/GLOB Ratio 0.6 RATIO (0.9-2.4); AST(SGOT) 14 U/L (15-37); Alanine Aminotransfer ALT/SGPT 26 U/L (16-61); Albumin, Serum 2.5 g/dL (3.2-5.0); Alkaline Phosphatase 102 U/L (45-117); Anion Gap 13 (5-15); BUN 88 mg/dL (7-18); BUN/Creat Ratio 11.7 RATIO (10-20); Calcium,Total 7.6 mg/dL (8.5-10.1); Chloride 104 mmol/L (98-107); Creatinine, Serum 7.49 mg/dL (0.70-1.30); EST Glomerular Filtration Rate 8 mL/min (>60); Est Glom Filt Rate - Afr Amer 10 mL/min (>60); Estimated Creatinine Clearance 10.77 ml/min; Globulin 4.1 g/dL (2.2-4.2); Glucose 91 mg/dL (74-106); Potassium 4.6 mmol/L (3.5-5.1); Protein, Total 6.6 g/dL (6.4-8.2); Sodium Level 142 mmol/L (136-145)
[2018-04-17 05:26] VITALS: BP 134/67; PULSE 78; RESP 17; O2SAT 96
--- NOTE | 2018-04-17 05:27 | ED.RN ---
DR GENTILE NOTIFIED OF CRE LEVEL
[2018-04-17 06:26] VITALS: BP 175/78; PULSE 80; RESP 14; O2SAT 94
[2018-04-17 07:15] VITALS: BP 140/87; PULSE 78; RESP 18; O2SAT 94
[2018-04-17 07:31] VITALS: BP 140/87; PULSE 78; RESP 18; O2SAT 97
== END 2018-04-17 07:32 | disposition home or self-care (01) ==
PROVIDERS: Emergency Provider Emergency Medicine; Family Provider Internal Medicine; PCP Internal Medicine
DX: I13.2 Hypertensive heart and chronic kidney disease with heart failure and with stage 5 chronic kidney disease, or end stage renal disease (principal); E11.22 Type 2 diabetes mellitus with diabetic chronic kidney disease; N18.6 End stage renal disease; I50.9 Heart failure, unspecified; R07.9 Chest pain, unspecified; D64.9 Anemia, unspecified; E11.40 Type 2 diabetes mellitus with diabetic neuropathy, unspecified; J96.11 Chronic respiratory failure with hypoxia; E78.5 Hyperlipidemia, unspecified; E66.01 Morbid (severe) obesity due to excess calories; Z68.41 Body mass index [BMI] 40.0-44.9, adult; G47.33 Obstructive sleep apnea (adult) (pediatric); Z99.2 Dependence on renal dialysis; Z79.4 Long term (current) use of insulin; Z79.82 Long term (current) use of aspirin; Z79.899 Other long term (current) drug therapy; Z86.73 Personal history of transient ischemic attack (TIA), and cerebral infarction without residual deficits
CPT/HCPCS: 36600; 71045; 74176; 80053; 82803; 84484; 85025; 93005; 99285; A4216

== ENCOUNTER 2018-05-02 23:02 | Inpatient (IN) | payer MEDICARE, SELFPAY ==
[2018-05-02 23:03] VITALS: PULSE 77; RESP 15; TEMP 36.6; O2SAT 94; BMI 48.8
[2018-05-02 23:15] LABS: Bedside Glucose > 500 mg/dL (70-110)
--- NOTE | 2018-05-02 23:15 | EKG12_ITS ---
Test Reason : CP Blood Pressure : / mmHG Vent. Rate : 076 BPM Atrial Rate : 076 BPM P-R Int : 158 ms QRS Dur : 090 ms QT Int : 386 ms P-R-T Axes : 014 010 061 degrees QTc Int : 434 ms Normal sinus rhythm Nonspecific T wave abnormality Abnormal ECG Confirmed by HOUSTON LOMELI, CANDIE ([id number]), purchase request editor DEREK KEARNS ([id number]) on 05/09/2018 2:27:26 PM Referred By: DR ORTIZ Confirmed By:CANDIE CONRAD MD
--- NOTE | 2018-05-02 23:17 | ED.VISSUMM ---
- ER Visit Summary Date of Service: 05/02/18 Chief Complaint: Chest pain History of Present Illness: The patient is a 47 M who presents for chest pain that he describes like an elephant sitting on his chest. He has a heaviness with associated shortness of breath. Onset was 5 hours ago while at rest. Worsened with very minimal exertion. Patient was unable to get up out of his chair and states his full body felt weak and numb. He had an associated cough but no noted fever. No nausea vomiting, diarrhea or constipation. Patient states he had similar symptoms with a prior lung infection. Patient has diabetes, hypertension, coronary artery disease status post remote [place], CHF, obstructive sleep apnea on CPAP, end-stage renal disease on hemodialysis Monday, and Monday. Patient takes a baby aspirin daily. No other blood thinners. Physical Examination: Vital signs: afebrile, hemodynamically stable, no hypoxia on room air General: well nourished, well developed, in no distress, appears uncomfortable Skin: warm, dry, no rash, no pallor HEENT: normocephalic and atraumatic; PERRL, EOMI, moist mucous membranes Cardiovascular: regular rate and rhythm without murmurs, symmetric nonpitting peripheral edema, 2+ pulses all distal extremities Respiratory: No increased work of breathing, lungs are clear to auscultation bilaterally, no rales, rhonchi or wheezing Abdominal: Abdomen is soft, obese, nontender with normoactive bowel sounds, no guarding or rebound, no masses MSK: Moves all extremities, no deformities, normal strength, dialysis fistula in right upper extremity with palpable thrill Neuro: Awake and alert, oriented ?4. No facial droop, sensation and motor function intact and symmetric Test Results: Abnormal Lab Results 05/02/18 05/02/18 05/02/18 23:11 23:16 23:16 WBC 5.8 RBC 3.10 L Hgb 9.3 L Hct 28.7 L MCV 92.6 MCH 30.0 MCHC 32.4 RDW 13.7 RDW Differential 45.8 H Plt Count 197 MPV 9.7 Immature Gran % (Auto) 0.900 Neut % (Auto) 68.4 Lymph % (Auto) 17.2 L [place] % (Auto) 9.1 Eos % (Auto) 3.9 Baso % (Auto) 0.5 Absolute Neuts (auto) 4.0 Absolute Lymphs (auto) 1.00 Total Counted Not Reportable PT 13.2 INR 1.0 APTT 27.7 Specimen Type Sample Site VBG pH VBG pO2 VBG O2 Sat (Calc) VBG O2 Content VBG Base Excess POC Mix VBG pCO2 Pt Tmp O2 Delivery Device Liter Flow Blood Gas Notified Whom Blood Gas Notified Time Sodium Potassium Chloride Carbon Dioxide Anion Gap BUN Creatinine Estim Creat Clear Calc Est GFR (MDRD) Af Amer Est GFR (MDRD) Non-Af BUN/Creatinine Ratio Glucose Calcium Phosphorus Magnesium Troponin I B-Natriuretic Peptide Acetone Level POC Glucose > 500 H* 05/02/18 05/02/18 05/02/18 23:16 23:16 23:16 WBC RBC Hgb Hct MCV MCH MCHC RDW RDW Differential Plt Count MPV Immature Gran % (Auto) Neut % (Auto) Lymph % (Auto) [place] % (Auto) Eos % (Auto) Baso % (Auto) Absolute Neuts (auto) Absolute Lymphs (auto) Total Counted PT INR APTT Specimen Type Sample Site VBG pH VBG pO2 VBG O2 Sat (Calc) VBG O2 Content VBG Base Excess POC Mix VBG pCO2 Pt Tmp O2 Delivery Device Liter Flow Blood Gas Notified Whom Blood Gas Notified Time Sodium 129 L Potassium 7.0 H* Chloride 96 L Carbon Dioxide 25.0 Anion Gap 8 BUN 58 H Creatinine 6.22 H Estim Creat Clear Calc 12.96 Est GFR (MDRD) Af Amer 12 L Est GFR (MDRD) Non-Af 10 L BUN/Creatinine Ratio 9.3 L Glucose 526 H* Calcium 7.4 L Phosphorus Magnesium Troponin I 0.022 B-Natriuretic Peptide 597.0 H Acetone Level NEGATIVE POC Glucose 05/02/18 05/03/18 05/03/18 23:16 00:29 00:45 WBC RBC Hgb Hct MCV MCH MCHC RDW RDW Differential Plt Count MPV Immature Gran % (Auto) Neut % (Auto) Lymph % (Auto) [place] % (Auto) Eos % (Auto) Baso % (Auto) Absolute Neuts (auto) Absolute Lymphs (auto) Total Counted PT INR APTT Specimen Type BRITTANY Sample Site OTHER VBG pH 7.26 L VBG pO2 35 VBG O2 Sat (Calc) 57 VBG O2 Content 29 VBG Base Excess 0 POC Mix VBG pCO2 Pt Tmp 61.2 H O2 Delivery Device Nasal Can Liter Flow 2.0 Blood Gas Notified Whom ED MD Blood Gas Notified Time 20 Sodium 130 L Potassium 7.3 H* Chloride 96 L Carbon Dioxide 27.0 Anion Gap 7 BUN 59 H Creatinine 6.19 H Estim Creat Clear Calc 13.03 Est GFR (MDRD) Af Amer 12 L Est GFR (MDRD) Non-Af 10 L BUN/Creatinine Ratio 9.5 L Glucose 445 H Calcium 7.5 L Phosphorus 5.5 H Magnesium 1.8 Troponin I B-Natriuretic Peptide Acetone Level POC Glucose 05/03/18 05/03/18 05/03/18 00:52 01:57 02:17 WBC RBC Hgb Hct MCV MCH MCHC RDW RDW Differential Plt Count MPV Immature Gran % (Auto) Neut % (Auto) Lymph % (Auto) [place] % (Auto) Eos % (Auto) Baso % (Auto) Absolute Neuts (auto) Absolute Lymphs (auto) Total Counted PT INR APTT Specimen Type Sample Site VBG pH VBG pO2 VBG O2 Sat (Calc) VBG O2 Content VBG Base Excess POC Mix VBG pCO2 Pt Tmp O2 Delivery Device Liter Flow Blood Gas Notified Whom Blood Gas Notified Time Sodium 133 L Potassium 6.3 H* Chloride 100 Carbon Dioxide 25.0 Anion Gap 8 BUN 58 H Creatinine 6.28 H Estim Creat Clear Calc 12.84 Est GFR (MDRD) Af Amer 12 L Est GFR (MDRD) Non-Af 10 L BUN/Creatinine Ratio 9.2 L Glucose 275 H Calcium 7.7 L Phosphorus Magnesium Troponin I B-Natriuretic Peptide Acetone Level POC Glucose 408 H 296 H Clinical Impression(s) from Imaging Studies Chest X-Ray 05/02/18 23:20 IMPRESSION: Compression of parenchyma with low lung volume, possible residual airspace disease in the right base; the asymmetric opacification in the right hemithorax on previous examination has otherwise resolved. No effusion detected compared to previous CT. Mild cardiac enlargement is stable when compared to previous examinations chest, also likely exaggerated by low lung volume and body habitus. Electronically Signed: Cindy Bhat MD at 23:53 EDT , Service support , Medications Given Aspirin (Aspirin, Baby) 324 mg PO X1 STA Stop: 05/02/18 23:16 Last Admin: 05/02/18 23:39 Dose: 324 mg Dextrose (D50w Syringe) 12.5 gm IV X1 PRN PRN Reason: HYPOGLYCEMIA Sodium Chloride () 500 mls @ 250 mls/hr IV .Q2H ONE Stop: 05/03/18 02:08 Last Admin: 05/03/18 00:56 Dose: 250 mls/hr Calcium Gluconate 1 gm/ Sodium (Chloride) 110 mls @ 100 mls/hr IV X1 ONE Stop: 05/03/18 01:17 Last Admin: 05/03/18 00:56 Dose: 100 mls/hr Insulin Human Lispro 100 unit/ (Sodium Chloride) 100 mls @ 13.72 mls/hr IV .Q7H18M [facility]; Protocol Last Admin: 05/03/18 00:54 Dose: 13.72 mls/hr Nitroglycerin (Nitrostat) 0.4 mg SUBLINGUAL Q5M [facility] Stop: 05/02/18 23:26 Last Admin: 05/02/18 23:52 Dose: 0.4 mg Admin: 05/02/18 23:47 Dose: 0.4 mg Admin: 05/02/18 23:41 Dose: 0.4 mg Emergency Department Course and Treatment: Bedside glucose was 523. Chest pain workup was performed. She was given aspirin and 2 sublingual nitroglycerin. An EKG showed a sinus rhythm with no overt ischemic changes, no peaked T waves, no QRS prolongation or QTC prolongation. It is unchanged from an old EKG. Initial troponin within normal limits at 0.022. Mild anemia with hemoglobin of 9.3. BMP remarkable for hyperglycemia and a potassium of 7. BNP elevated at 597. Chest x-ray showed no overt pulmonary edema and no infiltrates. Ketones negative. Patient's workup is concerning for hyperglycemia without any anion gap or low bicarb that would be concerning for DKA. Because of patient's end-stage renal disease, he was not given large fluid boluses. He was given gentle hydration. Insulin drip was started to address the hyperglycemia as well as the hyperkalemia of 7. Patient has no EKG changes concerning for symptomatic hyperkalemia, however calcium gluconate was given for stabilization of the cardiac membrane. Patient's blood sugar and potassium improved with the insulin. Patient had a primary respiratory acidosis on his VBG, and he was placed on BiPAP for respiratory support given his obstructive sleep apnea and the patient falling asleep while in the emergency department. Patient will require admission for further chest pain workup, given his initial presentation was for chest heaviness and tightness with shortness of breath. Patient was admitted to the PCU stepdown for further management of hyperkalemia, hyperglycemia, chest pain, and hypercarbia likely related to obesity hypoventilation syndrome. Critical care time of 42 minutes dependent of other separately billable procedures for initial evaluation, coordination of care, frequent reassessments, interpretation of EKG, lab work, VBG, chest x-ray, discussion with family, discussion with hospitalist, and documentation Treatment Plan: [] Disposition: [] Impression: Hyperglycemia, hyperkalemia, acute chest pain, primary respiratory acidosis, obesity hypoventilation syndrome, end-stage renal disease on hemodialysis This note was generated with [employer] dictation software. It may contain incorrect words, spelling, and punctuation that were not noted in review of the chart prior to signing ED Disposition - Plan for ED Patient: Disposition: Acute Care Hospital [facility] Chief Complaint: Chest Pain
--- NOTE | 2018-05-02 23:20 | ED.DCSUM_ITS ---
- ER Visit Summary Date of Service: 05/02/18 Chief Complaint: Chest pain History of Present Illness: The patient is a 47 M who presents for chest pain that he describes like an elephant sitting on his chest. He has a heaviness with associated shortness of breath. Onset was 5 hours ago while at rest. Wors ened with very minimal exertion. Patient was unable to get up out of his chair and states his full body felt weak and numb. He had an associated cough but no noted fever. No nausea vomiting, diarrhea or constipation. Patient states he had similar symptoms with a prior lung infection. Patient has diabetes, hypertension, coronary artery disease status post remote [place], CHF, obstructive sleep apnea on CPAP, end-stage renal disease on hemodialysis Monday, and Monday. Patient takes a baby aspirin daily. No other blood thinners. Physical Examination: Vital signs: afebrile, hemodynamically stable, no hypoxia on room air General: well nourished, well developed, in no distress, appears uncomfortable Skin: warm, dry, no rash, no pallor HEENT: normocephalic and atraumatic; PERRL, EOMI, moist mucous membranes Cardiovascular: regular rate and rhythm without murmurs, symmetric nonpitting peripheral edema, 2+ pulses all distal extremities Respiratory: No increased work of breathing, lungs are clear to auscultation bilaterally, no rales, rhonchi or wheezing Abdominal: Abdomen is soft, obese, nontender with normoactive bowel sounds, no guarding or rebound, no masses MSK: Moves all extremities, no deformities, normal strength, dialysis fistula in right upper extremity with palpable thrill Neuro: Awake and alert, oriented ?4. No facial droop, sensation and motor function intact and symmetric Test Results: Abnormal Lab Results 05/02/18 05/02/18 05/02/18 23:11 23:16 23:16 WBC 5.8 RBC 3.10 L Hgb 9.3 L Hct 28.7 L MCV 92.6 MCH 30.0 MCHC 32.4 RDW 13.7 RDW Differential 45.8 H Plt Count 197 MPV 9.7 Immature Gran % (Auto) 0.900 Neut % (Auto) 68.4 Lymph % (Auto) 17.2 L [place] % (Auto) 9.1 Eos % (Auto) 3.9 Baso % (Auto) 0.5 Absolute Neuts (auto) 4.0 Absolute Lymphs (auto) 1.00 Total Counted Not Reportable PT 13.2 INR 1.0 APTT 27.7 Specimen Type Sample Site VBG pH VBG pO2 VBG O2 Sat (Calc) VBG O2 Content VBG Base Excess POC Mix VBG pCO2 Pt Tmp O2 Delivery Device Liter Flow Blood Gas Notified Whom Blood Gas Notified Time Sodium Potassium Chloride Carbon Dioxide Anion Gap BUN Creatinine Estim Creat Clear Calc Est GFR (MDRD) Af Amer Est GFR (MDRD) Non-Af BUN/Creatinine Ratio Glucose Calcium Phosphorus Magnesium Troponin I B-Natriuretic Peptide Acetone Level POC Glucose > 500 H* 05/02/18 05/02/18 05/02/18 23:16 23:16 23:16 WBC RBC Hgb Hct MCV MCH MCHC RDW RDW Differential Plt Count MPV Immature Gran % (Auto) Neut % (Auto) Lymph % (Auto) [place] % (Auto) Eos % (Auto) Baso % (Auto) Absolute Neuts (auto) Absolute Lymphs (auto) Total Counted PT INR APTT Specimen Type Sample Site VBG pH VBG pO2 VBG O2 Sat (Calc) VBG O2 Content VBG Base Excess POC Mix VBG pCO2 Pt Tmp O2 Delivery Device Liter Flow Blood Gas Notified Whom Blood Gas Notified Time Sodium 129 L Potassium 7.0 H* Chloride 96 L Carbon Dioxide 25.0 Anion Gap 8 BUN 58 H Creatinine 6.22 H Estim Creat Clear Calc 12.96 Est GFR (MDRD) Af Amer 12 L Est GFR (MDRD) Non-Af 10 L BUN/Creatinine Ratio 9.3 L Glucose 526 H* Calcium 7.4 L Phosphorus Magnesium Troponin I 0.022 B-Natriuretic Peptide 597.0 H Acetone Level NEGATIVE POC Glucose 05/02/18 05/03/18 05/03/18 23:16 00:29 00:45 WBC RBC Hgb Hct MCV MCH MCHC RDW RDW Differential Plt Count MPV Immature Gran % (Auto) Neut % (Auto) Lymph % (Auto) [place] % (Auto) Eos % (Auto) Baso % (Auto) Absolute Neuts (auto) Absolute Lymphs (auto) Total Counted PT INR APTT Specimen Type BRITTANY Sample Site OTHER VBG pH 7.26 L VBG pO2 35 VBG O2 Sat (Calc) 57 VBG O2 Content 29 VBG Base Excess 0 POC Mix VBG pCO2 Pt Tmp 61.2 H O2 Delivery Device Nasal Can Liter Flow 2.0 Blood Gas Notified Whom ED MD Blood Gas Notified Time 20 Sodium 130 L Potassium 7.3 H* Chloride 96 L Carbon Dioxide 27.0 Anion Gap 7 BUN 59 H Creatinine 6.19 H Estim Creat Clear Calc 13.03 Est GFR (MDRD) Af Amer 12 L Est GFR (MDRD) Non-Af 10 L BUN/Creatinine Ratio 9.5 L Glucose 445 H Calcium 7.5 L Phosphorus 5.5 H Magnesium 1.8 Troponin I B-Natriuretic Peptide Acetone Level POC Glucose 05/03/18 05/03/18 05/03/18 00:52 01:57 02:17 WBC RBC Hgb Hct MCV MCH MCHC RDW RDW Differential Plt Count MPV Immature Gran % (Auto) Neut % (Auto) Lymph % (Auto) [place] % (Auto) Eos % (Auto) Baso % (Auto) Absolute Neuts (auto) Absolute Lymphs (auto) Total Counted PT INR APTT Specimen Type Sample Site VBG pH VBG pO2 VBG O2 Sat (Calc) VBG O2 Content VBG Base Excess POC Mix VBG pCO2 Pt Tmp O2 Delivery Device Liter Flow Blood Gas Notified Whom Blood Gas Notified Time Sodium 133 L Potassium 6.3 H* Chloride 100 Carbon Dioxide 25.0 Anion Gap 8 BUN 58 H Creatinine 6.28 H Estim Creat Clear Calc 12.84 Est GFR (MDRD) Af Amer 12 L Est GFR (MDRD) Non-Af 10 L BUN/Creatinine Ratio 9.2 L Glucose 275 H Calcium 7.7 L Phosphorus Magnesium Troponin I B-Natriuretic Peptide Acetone Level POC Glucose 408 H 296 H Clinical Impression(s) from Imaging Studies Chest X-Ray 05/02/18 23:20 IMPRESSION: Compression of parenchyma with low lung volume, possible residual airspace disease in the right base; the asymmetric opacification in the right hemithorax on previous examination has otherwise resolved. No effusion detected compared to previous CT. Mild cardiac enlargement is stable when compared to previous examinations chest, also likely exaggerated by low lung volume and body habitus. Electronically Signed: Cindy Bhat MD at 23:53 EDT , Service support , Medications Given Aspirin (Aspirin, Baby) 324 mg PO X1 STA Stop: 05/02/18 23:16 Last Admin: 05/02/18 23:39 Dose: 324 mg Dextrose (D50w Syringe) 12.5 gm IV X1 PRN PRN Reason: HYPOGLYCEMIA Sodium Chloride () 500 mls @ 250 mls/hr IV .Q2H ONE Stop: 05/03/18 02:08 Last Admin: 05/03/18 00:56 Dose: 250 mls/hr Calcium Gluconate 1 gm/ Sodium (Chloride) 110 mls @ 100 mls/hr IV X1 ONE Stop: 05/03/18 01:17 Last Admin: 05/03/18 00:56 Dose: 100 mls/hr Insulin Human Lispro 100 unit/ (Sodium Chloride) 100 mls @ 13.72 mls/hr IV .Q7H18M [facility]; Protocol Last Admin: 05/03/18 00:54 Dose: 13.72 mls/hr Nitroglycerin (Nitrostat) 0.4 mg SUBLINGUAL Q5M [facility] Stop: 05/02/18 23:26 Last Admin: 05/02/18 23:52 Dose: 0.4 mg Admin: 05/02/18 23:47 Dose: 0.4 mg Admin: 05/02/18 23:41 Dose: 0.4 mg Emergency Department Course and Treatment: Bedside glucose was 523. Chest pain workup was performed. She was given aspirin and 2 sublingual nitroglycerin. An EKG showed a sinus rhythm with no overt ischemic changes, no peaked T waves, no QRS prolongation or QTC prolongation. It is unchanged from an old EKG. Initial troponin within normal limits at 0.022. Mild anemia with hemoglobin of 9.3. BMP remarkable for hyperglycemia and a potassium of 7. BNP elevated at 597. Chest x-ray showed no overt pulmonary edema and no infiltrates. Ketones negative. Patient's workup is concerning for hyperglycemia without any anion gap or low bicarb that would be concerning for DKA. Because of patient's end- stage renal disease, he was not given large fluid boluses. He was given gentle hydration. Insulin drip was started to address the hyperglycemia as well as the hyperkalemia of 7. Patient has no EKG changes concerning for symptomatic hyperkalemia, however calcium gluconate was given for stabilization of the cardiac membrane. Patient's blood sugar and potassium improved with the insulin. Patient had a primary respiratory acidosis on his VBG, and he was placed on BiPAP for respiratory support given his obstructive sleep apnea and the patient falling asleep while in the emergency department. Patient will require admission for further chest pain workup, given his initial presentation was for chest heaviness and tightness with shortness of breath. Patient was admitted to the PCU stepdown for further management of hyperkalemia, hyperglycemia, chest pain, and hypercarbia likely related to obesity hypoventilation syndrome. Critical care time of 42 minutes dependent of other separately billable procedures for initial evaluation, coordination of care, frequent reassessments, interpretation of EKG, lab work, VBG, chest x-ray, discussion with family, discussion with hospitalist, and documentation Treatment Plan: [] Disposition: [] Impression: Hyperglycemia, hyperkalemia, acute chest pain, primary respiratory acidosis, obesity hypoventilation syndrome, end-stage renal disease on hemodialysis This note was generated with [employer] dictation software. It may contain incorrect words, spelling, and punctuation that were not noted in review of the chart prior to signing ED Disposition - Plan for ED Patient: Disposition: Acute Care Hospital [facility] Chief Complaint: Chest Pain
--- NOTE | 2018-05-02 23:20 | RAD_ITS ---
STUDY: X-RAY CHEST REASON FOR EXAM: Male, 47 years old. Chest pain TECHNIQUE: Single AP portable view of the chest. The images are under penetrated. COMPARISON: 04/17/2018. Chest x-ray and CT abdomen pelvis. FINDINGS: There is mild residual opacification in the right greater than left lung bases, with shallow inspiratory level. The asymmetric density over the right hemithorax has otherwise resolved. There are no effusions noted. Stable mild enlargement heart. Normal mediastinum and esmer. Normal visualized pulmonary arteries. Normal visualized aortic arch and descending thoracic aorta. The spine and upper abdominal soft tissues are obscured. There is obesity, the entirety of soft tissue is not imaged. RAD/Chest 1 View (Portable) IMPRESSION: Compression of parenchyma with low lung volume, possible residual airspace disease in the right base; the asymmetric opacification in the right hemithorax on previous examination has otherwise resolved. No effusion detected compared to previous CT. Mild cardiac enlargement is stable when compared to previous examinations chest, also likely exaggerated by low lung volume and body habitus. Electronically Signed: Cindy Bhat MD at 23:53 EDT , Service support ,
[2018-05-02 23:32] LABS: Basophil# 0.03 X10^3/uL; Basophil% 0.5 % (0-1); Eosinophil# 0.23 X10^3/uL; Eosinophils% 3.9 % (0-5); Hematocrit 28.7 % (40-54); Hemoglobin 9.3 g/dl (13.0-16.5); Lymphocyte % 17.2 % (19-41); Mean Corp Hgb Conc 32.4 g/gl (32-36); Mean Corpuscular Volume 92.6 fL (80-94); Mean Platelet Vol. 9.7 fl (6.2-12.0); Monocyte# 0.53 X10^3/uL; Monocyte% 9.1 % (0-10); Neutrophil # 3.99 X10^3/uL (2.7-7.7); Neutrophil % 68.4 % (47-70); Platelet Count 197 K/mm3 (150-450); RBC Distribution Width CV 13.7 % (11.6-14.6); RBC Distribution Width SD 45.8 fl (35.1-43.9); White Blood Count 5.8 K/mm3 (4.4-11.0)
[2018-05-02 23:33] VITALS: BP 204/88; PULSE 76; RESP 15; O2SAT 95; O2SAT 97
[2018-05-02 23:38] LABS: POSITIVE COUNT NO; POSITIVE DIFFERENTIAL NO; POSITIVE MORPHOLOGY NO
[2018-05-02] MEDS: Aspirin 81 MG TAB.CHEW 324 MG PO (23:39)
[2018-05-02 23:41] VITALS: BP 201/99; PULSE 79
[2018-05-02 23:47] VITALS: BP 170/83; PULSE 78
[2018-05-02 23:52] VITALS: BP 170/83; PULSE 76
[2018-05-02 23:55] LABS: Prothrombin Time (Protime)PT. 13.2 SECONDS (11.7-14.9)
[2018-05-02 23:56] LABS: Partial Thromboplast Time 27.7 Seconds (24.1-36.2)
[2018-05-03] VITALS (24 sets, daily range): BP systolic 114–180; BP diastolic 53–88; PULSE 72–83; RESP 12–20; TEMP 36.6–36.9; O2SAT 92–100; BMI 45.8; BMI 45.9
[2018-05-03 00:06] LABS: BUN 58 mg/dL (7-18); BUN/Creat Ratio 9.3 RATIO (10-20); Calcium,Total 7.4 mg/dL (8.5-10.1); Creatinine, Serum 6.22 mg/dL (0.70-1.30); EST Glomerular Filtration Rate 10 mL/min (>60); Est Glom Filt Rate - Afr Amer 12 mL/min (>60); Estimated Creatinine Clearance 12.96 ml/min; Glucose 526 mg/dL (74-106); Sodium Level 129 mmol/L (136-145)
[2018-05-03 00:07] LABS: Anion Gap 8 (5-15); Chloride 96 mmol/L (98-107)
[2018-05-03 00:35] LABS: Blood Gas Specimen Type VEN; O2 Delivery Device Nasal Can; SITE OTHER; Time Given 20; VBG BASE EXCESS 0 mmol/L (-1.0-3.5); VBG Bicarbonate 27 mmol/L (22-26); VBG Oxygen Content 29 mmol/L (23-33); VBG PO2 35 mmHg (25-40); VBG SO2 57 % (50-70); VBG pCO2 61.2 mmHg (41-51); VBG pH 7.26 (7.32-7.42)
[2018-05-03 00:44] LABS: Magnesium 1.8 mg/dL (1.6-2.6); Phosphorus 5.5 mg/dL (2.5-4.9)
[2018-05-03 01:06] LABS: Bedside Glucose 408 mg/dL (70-110)
[2018-05-03 01:07] LABS: Anion Gap 7 (5-15); BUN 59 mg/dL (7-18); BUN/Creat Ratio 9.5 RATIO (10-20); Calcium,Total 7.5 mg/dL (8.5-10.1); Chloride 96 mmol/L (98-107); Creatinine, Serum 6.19 mg/dL (0.70-1.30); EST Glomerular Filtration Rate 10 mL/min (>60); Est Glom Filt Rate - Afr Amer 12 mL/min (>60); Estimated Creatinine Clearance 13.03 ml/min; Glucose 445 mg/dL (74-106); Potassium 7.3 mmol/L (3.5-5.1); Sodium Level 130 mmol/L (136-145)
--- NOTE | 2018-05-03 01:50 | HP.PCM_ITS ---
Problem List (1) Chest pain Status: Acute (2) Hyperkalemia Status: Acute (3) Acute hyperglycemia Status: Acute History of Present Illness Date of Admission: 05/03/18 Chief Complaint: CHEST PAIN The patient is a 47 year old M with a significant history of end-stage renal disease (dialysis on Monday, and Saturdays); morbid obesity; heart failure with preserved ejection fraction; diabetes mellitus; obstructive sleep apnea on home BiPAP; who presented to the emergency department because of chest pain. Majority of history was taken from from patient's since patient was deeply asleep and he could hardly stay awake for conversation. Per patient's ; patient had excruciating chest pain that was 9 out of 10 in severity at onset. Chest pain was located at his left chest. His chest pain was nonradiating. However stated that patient could not raise both arms which was reminiscent to when he had pneumonia in the past. His chest pain was gucci racterized as an elephant sitting on his chest. Because of chest pain patient could hardly go to the bathroom and he had to crawl . He arose and fell backwards onto his couch. Associated with symptoms is shortness of breath. Patient denies any nausea; vomiting; or diaphoresis. Patient received nitroglycerin which caused an improvement in his chest pain. At the time of my examination patient denies any chest pain. The emergency department patient was found to have severe hyperglycemia and was started on insulin drip. He had no anion gap or ketones in his blood. Also, he was noted to have severely elevated potassium for which reason calcium gluconate was given. Past Medical History Past Medical History (Chronic Problems): Chronic Problems (Last Reviewed 05/03/18 @ 03:17 by Eze iRvera MD) Morbid obesity with BMI of 40.0-44.9, adult (Chronic) Pulmonary hypertension (Chronic) Morbid obesity with BMI of 40.0-44.9, adult (Chronic) Diabetes mellitus, type II (Chronic) Renal failure (Chronic) Noncompliance (Chronic) CHF (congestive heart failure) (Chronic) TIA (transient ischemic attack) (Chronic) Chronic respiratory failure with hypoxia (Chronic) HTN (hypertension) (Chronic) Acute on chronic diastolic CHF (congestive heart failure) (Chronic) Hyperlipidemia (Chronic) Diabetic neuropathy (Chronic) Anemia (Chronic) SELMA (obstructive sleep apnea) (Chronic) Medical History: Medical History (Last Reviewed 05/03/18 @ 03:17 by Eze Rivera MD) Chronic respiratory failure with hypoxia (Chronic) J96.11 Preop cardiovascular exam (Acute) Acute diastolic (congestive) heart failure (Acute) I50.31 HTN (hypertension) (Chronic) I10 Acute respiratory failure with hypoxia (Acute) J96.01 Acute on chronic diastolic CHF (congestive heart failure) (Chronic) I50.33 Hyperlipidemia (Chronic) E78.5 Diabetic neuropathy (Chronic) E11.40 Anemia (Chronic) D64.9 SELMA (obstructive sleep apnea) (Chronic) G47.33 ESRD (end stage renal disease) on dialysis N18.6, Z99.2 cataract surgery, l eye Chronic respiratory failure J96.10 Dyspnea R06.00 Edema R60.9 Hypotension I95.9 Morbid obesity E66.01 Overweight E66.3 Type 2 diabetes mellitus with other diabetic kidney complication E11.29 dx : age 16 last exacerbation : dka : never hypoglycemic episode : 2012 er visit : 2013 Allergies venom-honey bee [bee venom (honey bee)] Allergy (Verified 04/17/18 04:39) Swelling sulfamethoxazole [From Bactrim] Adverse Reaction (Verified 04/17/18 04:39) Upset Stomach trimethoprim [From Bactrim] Adverse Reaction (Verified 04/17/18 04:39) Upset Stomach Home Medications: Ambulatory Orders Medication Instructions Recorded Atorvastatin Calcium [Lipitor] 20 mg PO QHS 10/11/17 Isosorbide Mononitrate [Imdur] 30 mg PO DAILY 10/11/17 Lisinopril [Zestril] 10 mg PO DAILY 10/11/17 Metoprolol Tartrate [Lopressor 50 mg PO BID 10/11/17 (beta khoa)] Omeprazole 40 mg PO DAILY 10/11/17 Pyridoxine HCl [Vitamin B-6] 100 mg PO DAILY 10/11/17 Sevelamer HCl [Renagel] 800 mg PO TID 10/11/17 Vits A,C,E/Lutein/Minerals 1 ea PO DAILY 10/11/17 [Ocuvite with Lutein Tablet] Folic Acid/Vitamin B Comp W-C 1 cap PO DAILY 10/27/17 [Nephrocaps, Renaphro] Insulin U-500 [Humulin R U-500 0.18 ml SC DAILY 10/27/17 ([facility])] Insulin U-500 [Humulin R U-500 0.23 ml SC QHS 10/27/17 ([facility])] FreeStyle Lite Strips See Dose Instructions .ROUTE 11/29/17 .MEDSUPPLY #100 ea NS insulin syringe-needle U-100 1/2 See Dose Instructions .ROUTE 11/29/17 mL 30 gauge x 5/16 .MEDSUPPLY #60 ea albuterol sulfate HFA 90 2 puff INHALATION Q4H PRN #18 g 02/26/18 mcg/actuation aerosol inhaler Aspirin E.C. [Ecotrin] 81 mg PO DAILY 03/23/18 Cyclobenzaprine HCl 10 mg PO TID PRN PRN 03/23/18 Fluticasone 0.05% [Flonase Nasal 1 spray NASAL DAILY 03/23/18 [place]] Furosemide [Lasix] 80 mg PO BID 03/23/18 Gabapentin [Neurontin] 300 mg PO BID 03/23/18 Ketorolac Tromethamine 1 drop LEFT EYE 4X/DAY 03/23/18 Calcitriol [Rocaltrol] 0.5 mcg PO DAILY 04/17/18 Surgical History: Surgical History (Last Reviewed 05/03/18 @ 03:18 by Eze Rivera MD) S/P tonsillectomy Z90.89 dialysis fistula Rt Arm Surgical History: tonsillectomy, - - AV fistula in right arm. Smoking Status: Never smoker - *Family History Maternal Family History: Family History (Last Reviewed 05/03/18 @ 03:18 by Eze Rivera MD) Mother Hypertension Heart disease Diabetes Father Hypertension Heart disease Brother Heart disease History Items: Diabetes, Heart Disease, Hypertension, Renal Disease Paternal Family History: Family History (Last Reviewed 05/03/18 @ 03:18 by Eze Rivera MD) Mother Hypertension Heart disease Diabetes Father Hypertension Heart disease Brother Heart disease History Items: Cancer - liver, Diabetes, Heart Disease Review of Systems Constitutional: Reports: Chills - His reported chills an hour before his chest pain started.. Denies: Fever, Weight Change HEENT: Denies: Head Aches, Sinus Congestion, Sinus Drainage Cardiovascular: Reports: Chest Pain. Denies: Palpitations Respiratory: Reports: Shortness of Breath. Denies: Cough, Wheezing Gastrointestinal: Denies: Abdominal Pain, Nausea, Vomiting Genitourinary: Denies: Dysuria Musculoskeletal: Denies: Joint Pain, Joint Tenderness Skin: Denies: Rash, Wounds Neurological: Denies: Numbness, Tingling, Focal weakness Psychiatric: Denies: Anxiety, Depression, Homicidal Ideations, Suicidal Ideations Hematologic/ Lymphatic: Denies: Easy Bruising, Easy Bleeding VTE Information - Inpt Only VTE Present on Admission: No VTE Mechan Device Prophylaxis: None VTE Pharm Prophylaxis ordered?: Yes Patient Problems: Active and Suspected Problems (Last Reviewed 05/03/18 @ 03:17 by Eze Rivera MD) Hyperkalemia (Acute) Acute hyperglycemia (Acute) - Physical Exam General: Alert, Oriented x3, Cooperative HEENT: Atraumatic, PERRLA, EOMI, Normocephalic Neck: Supple, No JVD, Negative Carotid Bruits Lungs: Clear to auscultation, Normal air movement Cardiovascular: Regular rate, No murmurs Abdomen: Bowel Sounds Present, Soft, Non Tender Extremities: No edema, Capillary Refill Less than 3 Seconds Skin: No rashes, No breakdown Musculoskeletal: No Tenderness to Palpation of Joints or Extremities Neurological: Cranial nerves II-XII grossly intact Psych/Mental Status: Normal Affect, Appropriate Vital Signs Temp Pulse Resp BP Pulse Ox 97.9 F 74 14 180/88 H 98 05/02/18 23:03 05/03/18 01:00 05/03/18 01:00 05/03/18 01:00 05/03/18 01:00 Oxygen Flow Rate (L/min) 2 Oxygen Delivery Method Bi-pap Weight: 137.2 kg Body Mass Index (BMI) 48.8 Finger Stick Blood Glucose 408 Laboratory Tests Past 24 Hrs 05/02/18 05/02/18 05/02/18 23:16 23:16 23:16 WBC 5.8 RBC 3.10 L Hgb 9.3 L Hct 28.7 L MCV 92.6 MCH 30.0 MCHC 32.4 RDW 13.7 RDW Differential 45.8 H Plt Count 197 MPV 9.7 Immature Gran % (Auto) 0.900 Neut % (Auto) 68.4 Lymph % (Auto) 17.2 L [place] % (Auto) 9.1 Eos % (Auto) 3.9 Baso % (Auto) 0.5 Absolute Neuts (auto) 4.0 Absolute Lymphs (auto) 1.00 Total Counted Not Reportable PT 13.2 INR 1.0 APTT 27.7 Specimen Type Sample Site VBG pH VBG pO2 VBG O2 Sat (Calc) VBG O2 Content VBG Base Excess POC Mix VBG pCO2 Pt Tmp O2 Delivery Device Liter Flow Blood Gas Notified Whom Blood Gas Notified Time Sodium 129 L Potassium 7.0 H* Chloride 96 L Carbon Dioxide 25.0 Anion Gap 8 BUN 58 H Creatinine 6.22 H Estim Creat Clear Calc 12.96 Est GFR (MDRD) Af Amer 12 L Est GFR (MDRD) Non-Af 10 L BUN/Creatinine Ratio 9.3 L Glucose 526 H* Calcium 7.4 L Phosphorus Magnesium Troponin I 0.022 B-Natriuretic Peptide Acetone Level 05/02/18 05/02/18 05/02/18 23:16 23:16 23:16 WBC RBC Hgb Hct MCV MCH MCHC RDW RDW Differential Plt Count MPV Immature Gran % (Auto) Neut % (Auto) Lymph % (Auto) [place] % (Auto) Eos % (Auto) Baso % (Auto) Absolute Neuts (auto) Absolute Lymphs (auto) Total Counted PT INR APTT Specimen Type Sample Site VBG pH VBG pO2 VBG O2 Sat (Calc) VBG O2 Content VBG Base Excess POC Mix VBG pCO2 Pt Tmp O2 Delivery Device Liter Flow Blood Gas Notified Whom Blood Gas Notified Time Sodium Potassium Chloride Carbon Dioxide Anion Gap BUN Creatinine Estim Creat Clear Calc Est GFR (MDRD) Af Amer Est GFR (MDRD) Non-Af BUN/Creatinine Ratio Glucose Calcium Phosphorus 5.5 H Magnesium 1.8 Troponin I B-Natriuretic Peptide 597.0 H Acetone Level NEGATIVE 05/03/18 05/03/18 00:29 00:45 WBC RBC Hgb Hct MCV MCH MCHC RDW RDW Differential Plt Count MPV Immature Gran % (Auto) Neut % (Auto) Lymph % (Auto) [place] % (Auto) Eos % (Auto) Baso % (Auto) Absolute Neuts (auto) Absolute Lymphs (auto) Total Counted PT INR APTT Specimen Type BRITTANY Sample Site OTHER VBG pH 7.26 L VBG pO2 35 VBG O2 Sat (Calc) 57 VBG O2 Content 29 VBG Base Excess 0 POC Mix VBG pCO2 Pt Tmp 61.2 H O2 Delivery Device Nasal Can Liter Flow 2.0 Blood Gas Notified Whom ED Blood Gas Notified Time 20 Sodium 130 L Potassium 7.3 H* Chloride 96 L Carbon Dioxide 27.0 Anion Gap 7 BUN 59 H Creatinine 6.19 H Estim Creat Clear Calc 13.03 Est GFR (MDRD) Af Amer 12 L Est GFR (MDRD) Non-Af 10 L BUN/Creatinine Ratio 9.5 L Glucose 445 H Calcium 7.5 L Phosphorus Magnesium Troponin I B-Natriuretic Peptide Acetone Level POC Glucose 05/03/18 05/02/18 00:52 23:11 POC Glucose 408 H > 500 H* Assessment/Plan All Active Problems (Last Reviewed 05/03/18 @ 03:17 by Eze Rivera MD) Hyperkalemia (Acute) Acute hyperglycemia (Acute) Shortness of breath (Acute) Left leg cellulitis (Acute) SIRS (systemic inflammatory response syndrome) (Acute) Periapical abscess (Acute) Anasarca (Acute) Edema (Acute) Abnormal stress test (Acute) Muscle cramp, nocturnal (Acute) Chest pain (Acute) Nausea and vomiting (Acute) Fever and chills (Acute) Malaise and fatigue (Acute) Preop cardiovascular exam (Acute) Acute diastolic (congestive) heart failure (Acute) Acute respiratory failure with hypoxia (Acute) The patient is a 47 year old M with a significant history of CAD; end-stage renal disease (dialysis Monday, and Saturdays); morbid obesity; heart failure with preserved ejection fraction; who presented to the emergency department because of chest pain; and found to have severely elevated potassium level; and severely elevated blood glucose but if no anion gap or ketones present in serum. Chest pain Admit to a monitored bed on PCU CXR independently reviewed confirms opacity in the right lower side of his lungs improved compared to that on 04/17/2018.. EKG was unremarkable. ASA 81 mg p.o. daily SL NTG 0.4 mg prn as needed for chest pain Lipid panel ordered. Lipitor increased from 20 mg nightly to 40 mg nightly. Stat EKG as needed for chest pain Stress test on 09/11/2017 showed normal pharmacological myocardial perfusion stress test. Preserved ejection fraction. Patient chest pain had resolved at the time of examination and coupled with normal stress test about 8 months ago; we will hold off unless stress test at this point. Cardiac enzymes so far are negative. Serial cardiac enzymes ordered. Hyperkalemia On admission his potassium was 7.0; with insulin drip his potassium dropped to 6.3; His blood glucose has improved from more than 500 to 296. Received calcium gluconate prophylactically at the ED. Patient is end-stage renal disease but he makes urine. He is on home Lasix 80 mg bid. His bicarbonate is in the normal range. We will order lasix 40 mg IV push now.; And continue his home dose of Lasix 80 mg twice daily. Since patient is very lethargic extreme difficulty giving p.o. at this time. Kayexalate 50 g enema x1 ordered. BMP in a.m. Acute Hyperglycemia Since his blood glucose has improved will transition from insulin drip to SC novolog every 4 hours per correction scale. Long-acting insulin; Lantus 25 units nightly started now. At home Patient is on U-500 bid Hypertensive urgency Highest blood pressure is 180/88. Home lisinopril and metoprolol continued. Labetalol as needed added. Trend blood pressures and titrate blood pressure medication as necessary. ESRD On ; ; and Monday dialysis Nephrology consulted to optimize management especially with his hyperkalemia. History of diastolic heart failure Home Lasix continued. IV Lasix x1 for hyperkalemia. Obstructive sleep apnea BiPAP continued. Hypocalcemia Likely associated with his renal disease. Serum albumin and ionized calcium ordered. Respiratory acidosis Likely from obstructive sleep apnea Continue BiPAP started from the ED. DVT prophylaxis Subcutaneous heparin ordered. Code Visit Inpatient E&M: 91772 In Hosp L3
[2018-05-03 02:00] LABS: Bedside Glucose 296 mg/dL (70-110)
[2018-05-03 02:41] LABS: Anion Gap 8 (5-15); BUN 58 mg/dL (7-18); BUN/Creat Ratio 9.2 RATIO (10-20); Calcium,Total 7.7 mg/dL (8.5-10.1); Chloride 100 mmol/L (98-107); Creatinine, Serum 6.28 mg/dL (0.70-1.30); EST Glomerular Filtration Rate 10 mL/min (>60); Est Glom Filt Rate - Afr Amer 12 mL/min (>60); Estimated Creatinine Clearance 12.84 ml/min; Glucose 275 mg/dL (74-106); Potassium 6.3 mmol/L (3.5-5.1); Sodium Level 133 mmol/L (136-145)
--- NOTE | 2018-05-03 02:45 | EKG12_ITS ---
Test Reason : AM EKG Blood Pressure : / mmHG Vent. Rate : 074 BPM Atrial Rate : 074 BPM P-R Int : 144 ms QRS Dur : 084 ms QT Int : 404 ms P-R-T Axes : 019 024 240 degrees QTc Int : 448 ms Normal sinus rhythm Nonspecific T wave abnormality Abnormal ECG When compared with ECG of 17-APR-2018 04:31, No significant change was found Confirmed by HOUSTON LOMELI, CANDIE ([id number]), makeup editor DEREK KEARNS ([id number] on 05/09/2018 2:32:45 PM Referred By: CHAI Confirmed By:CANDIE CONRAD MD
[2018-05-03] MEDS: 0.9% NaCl Peripheral Flush Adult/Peds IV (03:24)
[2018-05-03] MEDS: Furosemide 40 MG/4 ML Vial IV (03:24)
[2018-05-03 03:49] LABS: Albumin, Serum 2.7 g/dL (3.2-5.0)
[2018-05-03] MEDS: Sodium Polystyrene Sulfonate 15 GM/60 ML UDC 50 GM RECTAL (04:13)
[2018-05-03 04:31] LABS: Bedside Glucose 137 mg/dL (70-110)
[2018-05-03] MEDS: Heparin Injection (Vial) 5,000 UNIT/ML VIAL 5000 UNIT SC ×2 (05:09→21:51)
[2018-05-03 06:07] LABS: Anion Gap 12 (5-15); BUN 59 mg/dL (7-18); BUN/Creat Ratio 9.6 RATIO (10-20); Calcium,Total 7.6 mg/dL (8.5-10.1); Chloride 102 mmol/L (98-107); Cholesterol 201 mg/dL (200); Creatinine, Serum 6.17 mg/dL (0.70-1.30); EST Glomerular Filtration Rate 10 mL/min (>60); Est Glom Filt Rate - Afr Amer 13 mL/min (>60); Estimated Creatinine Clearance 13.54 ml/min; Glucose 113 mg/dL (74-106); High Density Lipoprotein 40 mg/dL; Potassium 5.9 mmol/L (3.5-5.1); Sodium Level 137 mmol/L (136-145); Triglycerides 597 mg/dL
--- NOTE | 2018-05-03 08:48 | PCM.CONS.R ---
Consultation - Renal 05/03/18 PCP/ Referring MD: Requesting physician: Dr Rivera Primary care physician: Augie Washburn Reason for Consultation:: ESRD HD TTS, renal mgmt - History of Present Illness History of Present Illness: The patient is a 47 year old M with a significant history of end-stage renal disease due to poorly controlled diabetes, hypertension on dialysis Monday, and Saturdays with last treatment Monday admitted for chest pain. He was hyperkalemic with potassium at 7 with hyperglycemia, hyponatremia. He was started on insulin drip. He has sleep apnea, morbidly obese. Unclear if he is compliant with his BIPAP mask at home. Hx noncompliance with diet, medications, fluid gains. He is lethargic but arrousable, unable to provide meaningful history. Chart reviewed, labs, xrays. Patient had excruciating chest pain that was 9 out of 10 in severity at onset located at his left chest. His chest pain was nonradiating. His chest pain was characterized as an elephant sitting on his chest. Because of chest pain patient could hardly go to the bathroom and he had to crawl . He arose and fell backwards onto his couch. Associated with symptoms is shortness of breath.Patient denies any nausea; vomiting; or diaphoresis. Patient received nitroglycerin with improvement in his chest pain. - Allergies Allergies: Allergies venom-honey bee [bee venom (honey bee)] Allergy (Verified 05/03/18 02:59) Swelling sulfamethoxazole [From Bactrim] Adverse Reaction (Verified 05/03/18 02:59) Upset Stomach trimethoprim [From Bactrim] Adverse Reaction (Verified 05/03/18 02:59) Upset Stomach - Current Medications Current Medications: Current Medications Aspirin (Ecotrin) 81 mg PO DAILY@0800 [facility] Atorvastatin Calcium (Lipitor) 40 mg PO QHS [facility] Dextrose (D50w Syringe) 0 gm IV X1 PRN; Protocol PRN Reason: Hypoglycemia Glucagon () 1 mg IM .X1 PRN PRN Reason: Hypoglycemia Heparin Sodium (Porcine) (Heparin Na) 5,000 unit SC Q8 [facility] Last Admin: 05/03/18 05:09 Dose: 5,000 unit Insulin Glargine (Lantus (Bkc)) 25 units SC QHS [facility] Last Admin: 05/03/18 03:25 Dose: 25 u Insulin Human Lispro (Humalog Kwikpen (Bkc)) 0 unit SQ Q4 [facility]; Protocol Last Admin: 05/03/18 04:09 Dose: Not Given Labetalol HCl (Trandate) 10 mg IV Q4H PRN PRN PRN Reason: SBP > 160 Lisinopril (Zestril) 10 mg PO DAILY [facility] Magnesium Hydroxide (Milk Of Magnesia) 30 ml PO DAILY PRN PRN Reason: Constipation Metoprolol Tartrate (Lopressor (Beta Emmanuel)) 50 mg PO BID [facility] Nitroglycerin (Nitrostat) 0.4 mg SUBLINGUAL Q5M PRN PRN Reason: CHEST PAIN Nutritional Formula (Lactose Free) (Glucerna Shake) 120 ml PO TIDCM [facility] Pantoprazole Sodium (Protonix) 40 mg PO DAILY [facility] Sevelamer Carbonate (Renvela) 800 mg PO TIDCM [facility] Sodium Chloride () 5 - 30 ml IV UD PRN PRN Reason: SALINE FLUSH Last Admin: 05/03/18 03:24 Dose: 10 ml - Past Medical History Past Medical History (Chronic Problems): Chronic Problems (Last Reviewed 05/03/18 @ 03:17 by Eze Rivera MD) Morbid obesity with BMI of 40.0-44.9, adult (Chronic) Pulmonary hypertension (Chronic) Morbid obesity with BMI of 40.0-44.9, adult (Chronic) Diabetes mellitus, type II (Chronic) Renal failure (Chronic) Noncompliance (Chronic) CHF (congestive heart failure) (Chronic) TIA (transient ischemic attack) (Chronic) Chronic respiratory failure with hypoxia (Chronic) HTN (hypertension) (Chronic) Acute on chronic diastolic CHF (congestive heart failure) (Chronic) Hyperlipidemia (Chronic) Diabetic neuropathy (Chronic) Anemia (Chronic) SELMA (obstructive sleep apnea) (Chronic) - Past Surgical History Surgical History: tonsillectomy, - - AV fistula in right arm. - Social History Smoking Status: Never smoker - Family History Maternal Family History: Family History (Last Reviewed 05/03/18 @ 03:18 by Eze Rivera MD) Mother Hypertension Heart disease Diabetes Father Hypertension Heart disease Brother Heart disease History Items: Diabetes, Heart Disease, Hypertension, Renal Disease Paternal Family History: Family History (Last Reviewed 05/03/18 @ 03:18 by Eze Rivera MD) Mother Hypertension Heart disease Diabetes Father Hypertension Heart disease Brother Heart disease History Items: Cancer - liver, Diabetes, Heart Disease Review of Systems Constitutional: Denies: Chills, Fever, Weakness Cardiovascular: Reports: Chest Pain. Denies: Edema Respiratory: Reports: Shortness of Breath Gastrointestinal: Denies: Nausea, Vomiting Comment: limited historian, lethargic. Chart reviewed. Patient Problems: Active and Suspected Problems (Last Reviewed 05/03/18 @ 03:17 by Eze Rivera MD) Hyperkalemia (Acute) Acute hyperglycemia (Acute) - Physical Exam General: Lethargic Lungs: Clear to auscultation, Diminished Cardiovascular: Regular rate Abdomen: Bowel Sounds Present, Soft, Non Tender, Non-Distended, Obese Extremities: No cyanosis, No edema Skin: No rashes Psych/Mental Status: - - lethargic Vital Signs Temp Pulse Resp BP Pulse Ox 97.8 F 79 18 153/79 H 98 05/03/18 08:40 05/03/18 08:40 05/03/18 08:40 05/03/18 08:40 05/03/18 08:43 Oxygen Flow Rate (L/min) 2 Oxygen Delivery Method Bi-pap Weight: 132.8 kg Body Mass Index (BMI) 45.8 Finger Stick Blood Glucose 296 Intake and Output for Last 24 Hours 05/01/18 05/02/18 05/03/18 23:59 23:59 23:59 Intake Total 136.9 / 136.9 Balance 136.9 / 136.9 Laboratory Tests Past 24 Hrs 05/02/18 05/02/18 05/02/18 23:16 23:16 23:16 WBC 5.8 RBC 3.10 L Hgb 9.3 L Hct 28.7 L MCV 92.6 MCH 30.0 MCHC 32.4 RDW 13.7 RDW Differential 45.8 H Plt Count 197 MPV 9.7 Immature Gran % (Auto) 0.900 Neut % (Auto) 68.4 Lymph % (Auto) 17.2 L [place] % (Auto) 9.1 Eos % (Auto) 3.9 Baso % (Auto) 0.5 Absolute Neuts (auto) 4.0 Absolute Lymphs (auto) 1.00 Total Counted Not Reportable PT 13.2 INR 1.0 APTT 27.7 Specimen Type Sample Site VBG pH VBG pO2 VBG O2 Sat (Calc) VBG O2 Content VBG Base Excess POC Mix VBG pCO2 Pt Tmp O2 Delivery Device Liter Flow Blood Gas Notified Whom Blood Gas Notified Time Sodium 129 L Potassium 7.0 H* Chloride 96 L Carbon Dioxide 25.0 Anion Gap 8 BUN 58 H Creatinine 6.22 H Estim Creat Clear Calc 12.96 Est GFR (MDRD) Af Amer 12 L Est GFR (MDRD) Non-Af 10 L BUN/Creatinine Ratio 9.3 L Glucose 526 H* Calcium 7.4 L Ionized Calcium Phosphorus Magnesium Troponin I 0.022 B-Natriuretic Peptide Albumin Triglycerides Cholesterol LDL Cholesterol VLDL Cholesterol HDL Cholesterol Acetone Level 05/02/18 05/02/18 05/02/18 23:16 23:16 23:16 WBC RBC Hgb Hct MCV MCH MCHC RDW RDW Differential Plt Count MPV Immature Gran % (Auto) Neut % (Auto) Lymph % (Auto) [place] % (Auto) Eos % (Auto) Baso % (Auto) Absolute Neuts (auto) Absolute Lymphs (auto) Total Counted PT INR APTT Specimen Type Sample Site VBG pH VBG pO2 VBG O2 Sat (Calc) VBG O2 Content VBG Base Excess POC Mix VBG pCO2 Pt Tmp O2 Delivery Device Liter Flow Blood Gas Notified Whom Blood Gas Notified Time Sodium Potassium Chloride Carbon Dioxide Anion Gap BUN Creatinine Estim Creat Clear Calc Est GFR (MDRD) Af Amer Est GFR (MDRD) Non-Af BUN/Creatinine Ratio Glucose Calcium Ionized Calcium Phosphorus 5.5 H Magnesium 1.8 Troponin I B-Natriuretic Peptide 597.0 H Albumin Triglycerides Cholesterol LDL Cholesterol VLDL Cholesterol HDL Cholesterol Acetone Level NEGATIVE 05/03/18 05/03/18 05/03/18 00:29 00:45 02:17 WBC RBC Hgb Hct MCV MCH MCHC RDW RDW Differential Plt Count MPV Immature Gran % (Auto) Neut % (Auto) Lymph % (Auto) [place] % (Auto) Eos % (Auto) Baso % (Auto) Absolute Neuts (auto) Absolute Lymphs (auto) Total Counted PT INR APTT Specimen Type BRITTANY Sample Site OTHER VBG pH 7.26 L VBG pO2 35 VBG O2 Sat (Calc) 57 VBG O2 Content 29 VBG Base Excess 0 POC Mix VBG pCO2 Pt Tmp 61.2 H O2 Delivery Device Nasal Can Liter Flow 2.0 Blood Gas Notified Whom ED MD Blood Gas Notified Time 20 Sodium 130 L 133 L Potassium 7.3 H* 6.3 H* Chloride 96 L 100 Carbon Dioxide 27.0 25.0 Anion Gap 7 8 BUN 59 H 58 H Creatinine 6.19 H 6.28 H Estim Creat Clear Calc 13.03 12.84 Est GFR (MDRD) Af Amer 12 L 12 L Est GFR (MDRD) Non-Af 10 L 10 L BUN/Creatinine Ratio 9.5 L 9.2 L Glucose 445 H 275 H Calcium 7.5 L 7.7 L Ionized Calcium Phosphorus Magnesium Troponin I B-Natriuretic Peptide Albumin Triglycerides Cholesterol LDL Cholesterol VLDL Cholesterol HDL Cholesterol Acetone Level 05/03/18 05/03/18 05/03/18 02:17 02:17 05:30 WBC RBC Hgb Hct MCV MCH MCHC RDW RDW Differential Plt Count MPV Immature Gran % (Auto) Neut % (Auto) Lymph % (Auto) [place] % (Auto) Eos % (Auto) Baso % (Auto) Absolute Neuts (auto) Absolute Lymphs (auto) Total Counted PT INR APTT Specimen Type Sample Site VBG pH VBG pO2 VBG O2 Sat (Calc) VBG O2 Content VBG Base Excess POC Mix VBG pCO2 Pt Tmp O2 Delivery Device Liter Flow Blood Gas Notified Whom Blood Gas Notified Time Sodium 137 Potassium 5.9 H Chloride 102 Carbon Dioxide 23.0 Anion Gap 12 BUN 59 H Creatinine 6.17 H Estim Creat Clear Calc 13.54 Est GFR (MDRD) Af Amer 13 L Est GFR (MDRD) Non-Af 10 L BUN/Creatinine Ratio 9.6 L Glucose 113 H Calcium 7.6 L Ionized Calcium Phosphorus Magnesium Troponin I 0.020 0.015 B-Natriuretic Peptide Albumin 2.7 L Triglycerides 597 H Cholesterol 201 H LDL Cholesterol TNP VLDL Cholesterol TNP HDL Cholesterol 40 Acetone Level 05/03/18 05:30 WBC RBC Hgb Hct MCV MCH MCHC RDW RDW Differential Plt Count MPV Immature Gran % (Auto) Neut % (Auto) Lymph % (Auto) [place] % (Auto) Eos % (Auto) Baso % (Auto) Absolute Neuts (auto) Absolute Lymphs (auto) Total Counted PT INR APTT Specimen Type Sample Site VBG pH VBG pO2 VBG O2 Sat (Calc) VBG O2 Content VBG Base Excess POC Mix VBG pCO2 Pt Tmp O2 Delivery Device Liter Flow Blood Gas Notified Whom Blood Gas Notified Time Sodium Potassium Chloride Carbon Dioxide Anion Gap BUN Creatinine Estim Creat Clear Calc Est GFR (MDRD) Af Amer Est GFR (MDRD) Non-Af BUN/Creatinine Ratio Glucose Calcium Ionized Calcium Pending Phosphorus Magnesium Troponin I B-Natriuretic Peptide Albumin Triglycerides Cholesterol LDL Cholesterol VLDL Cholesterol HDL Cholesterol Acetone Level POC Glucose 05/03/18 05/03/18 05/03/18 04:05 01:57 00:52 POC Glucose 137 H 296 H 408 H 05/02/18 23:11 POC Glucose > 500 H* Clinical Impression(s) from Imaging Studies Chest X-Ray 05/02/18 23:20 IMPRESSION: Compression of parenchyma with low lung volume, possible residual airspace disease in the right base; the asymmetric opacification in the right hemithorax on previous examination has otherwise resolved. No effusion detected compared to previous CT. Mild cardiac enlargement is stable when compared to previous examinations chest, also likely exaggerated by low lung volume and body habitus. Electronically Signed: Cindy Bhat MD at 23:53 EDT , Service support , Assessment/Plan All Active Problems (Last Reviewed 05/03/18 @ 03:17 by Eze Rivera MD) Hyperkalemia (Acute) Acute hyperglycemia (Acute) Shortness of breath (Acute) Left leg cellulitis (Acute) SIRS (systemic inflammatory response syndrome) (Acute) Periapical abscess (Acute) Anasarca (Acute) Edema (Acute) Abnormal stress test (Acute) Muscle cramp, nocturnal (Acute) Chest pain (Acute) Nausea and vomiting (Acute) Fever and chills (Acute) Malaise and fatigue (Acute) Preop cardiovascular exam (Acute) Acute diastolic (congestive) heart failure (Acute) Acute respiratory failure with hypoxia (Acute) 1. ESRD HD today and TTS 2. Hyperkalemia correct with urgent dialysis 3. Chest pain with unremarkable troponins and EKG. primary mgmt 4. HTN stable 5. DM2 primary mgmt, hyperglycemic with no AG. 6. Noncompliance with medications, diet 7. Confusion on BIPAP, suspect due to sleep apnea, hypoventilatory state addendum seen on dialysis.
[2018-05-03] MEDS: Dextrose 50%-Water 25 GM/50 ML DISP.SYRIN IV (09:58)
[2018-05-03 10:06] LABS: Bedside Glucose 40 mg/dL (70-110)
--- NOTE | 2018-05-03 10:06 | NURSING ---
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
[2018-05-03 10:36] LABS: Bedside Glucose 99 mg/dL (70-110)
--- NOTE | 2018-05-03 10:40 | NURSING ---
Pt BGT 99 after D50; pt given lara crackers, peanut butter, and apple juice which was ok'd by lab manager during treatment. Will continue to monitor.
--- NOTE | 2018-05-03 13:54 | PCM.PROGNOTE ---
<Zachariah Meza - Last Filed: 05/03/18 13:54> Patient Problems: Active and Suspected Problems (Last Reviewed 05/03/18 @ 03:17 by Eze Rivera MD) Hyperkalemia (Acute) Acute hyperglycemia (Acute) Subjective: Pt seen during dialysis session. Reports primary complaint was fatigue which is improved. Also reports breathing is improved. He does have non productive cough. No fevers/chills. No CP/dizziness/LH/palp. Does have BL LE edema. - Physical Exam General: Alert, Oriented x3, Cooperative HEENT: Atraumatic, PERRLA, EOMI, Normocephalic Neck: Supple, No JVD, Negative Carotid Bruits Lungs: Clear to auscultation, Normal air movement Cardiovascular: Regular rate, No murmurs Abdomen: Bowel Sounds Present, Soft, Non Tender, Obese Extremities: Capillary Refill Less than 3 Seconds, Edema Skin: No rashes, No breakdown Musculoskeletal: No Tenderness to Palpation of Joints or Extremities Neurological: Cranial nerves II-XII grossly intact Psych/Mental Status: Normal Affect, Appropriate, Alert and oriented to time, place, person, mood and affect Vital Signs Temp Pulse Resp BP Pulse Ox 97.8 F 76 18 153/79 H 98 05/03/18 08:40 05/03/18 10:42 05/03/18 08:40 05/03/18 08:40 05/03/18 08:43 Oxygen Flow Rate (L/min) 2 Oxygen Delivery Method Bi-pap Weight: 292 lb 12.382 oz Body Mass Index (BMI) 45.8 Finger Stick Blood Glucose 296 Intake and Output for Last 24 Hours 05/01/18 05/02/18 05/03/18 23:59 23:59 23:59 Intake Total 266.9 / 266.9 Balance 266.9 / 266.9 Laboratory Tests Past 24 Hrs 05/02/18 05/02/18 05/02/18 23:16 23:16 23:16 WBC 5.8 RBC 3.10 L Hgb 9.3 L Hct 28.7 L MCV 92.6 MCH 30.0 MCHC 32.4 RDW 13.7 RDW Differential 45.8 H Plt Count 197 MPV 9.7 Immature Gran % (Auto) 0.900 Neut % (Auto) 68.4 Lymph % (Auto) 17.2 L [place] % (Auto) 9.1 Eos % (Auto) 3.9 Baso % (Auto) 0.5 Absolute Neuts (auto) 4.0 Absolute Lymphs (auto) 1.00 Total Counted Not Reportable PT 13.2 INR 1.0 APTT 27.7 Specimen Type Sample Site VBG pH VBG pO2 VBG O2 Sat (Calc) VBG O2 Content VBG Base Excess POC Mix VBG pCO2 Pt Tmp O2 Delivery Device Liter Flow Blood Gas Notified Whom Blood Gas Notified Time Sodium 129 L Potassium 7.0 H* Chloride 96 L Carbon Dioxide 25.0 Anion Gap 8 BUN 58 H Creatinine 6.22 H Estim Creat Clear Calc 12.96 Est GFR (MDRD) Af Amer 12 L Est GFR (MDRD) Non-Af 10 L BUN/Creatinine Ratio 9.3 L Glucose 526 H* Calcium 7.4 L Ionized Calcium Phosphorus Magnesium Troponin I 0.022 B-Natriuretic Peptide Albumin Triglycerides Cholesterol LDL Cholesterol VLDL Cholesterol HDL Cholesterol Acetone Level Hep Bs Antigen Hep Bs Antibody 05/02/18 05/02/18 05/02/18 23:16 23:16 23:16 WBC RBC Hgb Hct MCV MCH MCHC RDW RDW Differential Plt Count MPV Immature Gran % (Auto) Neut % (Auto) Lymph % (Auto) [place] % (Auto) Eos % (Auto) Baso % (Auto) Absolute Neuts (auto) Absolute Lymphs (auto) Total Counted PT INR APTT Specimen Type Sample Site VBG pH VBG pO2 VBG O2 Sat (Calc) VBG O2 Content VBG Base Excess POC Mix VBG pCO2 Pt Tmp O2 Delivery Device Liter Flow Blood Gas Notified Whom Blood Gas Notified Time Sodium Potassium Chloride Carbon Dioxide Anion Gap BUN Creatinine Estim Creat Clear Calc Est GFR (MDRD) Af Amer Est GFR (MDRD) Non-Af BUN/Creatinine Ratio Glucose Calcium Ionized Calcium Phosphorus 5.5 H Magnesium 1.8 Troponin I B-Natriuretic Peptide 597.0 H Albumin Triglycerides Cholesterol LDL Cholesterol VLDL Cholesterol HDL Cholesterol Acetone Level NEGATIVE Hep Bs Antigen Hep Bs Antibody 05/03/18 05/03/18 05/03/18 00:29 00:45 02:17 WBC RBC Hgb Hct MCV MCH MCHC RDW RDW Differential Plt Count MPV Immature Gran % (Auto) Neut % (Auto) Lymph % (Auto) [place] % (Auto) Eos % (Auto) Baso % (Auto) Absolute Neuts (auto) Absolute Lymphs (auto) Total Counted PT INR APTT Specimen Type BRITTANY Sample Site OTHER VBG pH 7.26 L VBG pO2 35 VBG O2 Sat (Calc) 57 VBG O2 Content 29 VBG Base Excess 0 POC Mix VBG pCO2 Pt Tmp 61.2 H O2 Delivery Device Nasal Can Liter Flow 2.0 Blood Gas Notified Whom ED MD Blood Gas Notified Time 20 Sodium 130 L 133 L Potassium 7.3 H* 6.3 H* Chloride 96 L 100 Carbon Dioxide 27.0 25.0 Anion Gap 7 8 BUN 59 H 58 H Creatinine 6.19 H 6.28 H Estim Creat Clear Calc 13.03 12.84 Est GFR (MDRD) Af Amer 12 L 12 L Est GFR (MDRD) Non-Af 10 L 10 L BUN/Creatinine Ratio 9.5 L 9.2 L Glucose 445 H 275 H Calcium 7.5 L 7.7 L Ionized Calcium Phosphorus Magnesium Troponin I B-Natriuretic Peptide Albumin Triglycerides Cholesterol LDL Cholesterol VLDL Cholesterol HDL Cholesterol Acetone Level Hep Bs Antigen Hep Bs Antibody 05/03/18 05/03/18 05/03/18 02:17 02:17 05:30 WBC RBC Hgb Hct MCV MCH MCHC RDW RDW Differential Plt Count MPV Immature Gran % (Auto) Neut % (Auto) Lymph % (Auto) [place] % (Auto) Eos % (Auto) Baso % (Auto) Absolute Neuts (auto) Absolute Lymphs (auto) Total Counted PT INR APTT Specimen Type Sample Site VBG pH VBG pO2 VBG O2 Sat (Calc) VBG O2 Content VBG Base Excess POC Mix VBG pCO2 Pt Tmp O2 Delivery Device Liter Flow Blood Gas Notified Whom Blood Gas Notified Time Sodium 137 Potassium 5.9 H Chloride 102 Carbon Dioxide 23.0 Anion Gap 12 BUN 59 H Creatinine 6.17 H Estim Creat Clear Calc 13.54 Est GFR (MDRD) Af Amer 13 L Est GFR (MDRD) Non-Af 10 L BUN/Creatinine Ratio 9.6 L Glucose 113 H Calcium 7.6 L Ionized Calcium Phosphorus Magnesium Troponin I 0.020 0.015 B-Natriuretic Peptide Albumin 2.7 L Triglycerides 597 H Cholesterol 201 H LDL Cholesterol TNP VLDL Cholesterol TNP HDL Cholesterol 40 Acetone Level Hep Bs Antigen Hep Bs Antibody 05/03/18 05/03/18 05:30 12:25 WBC RBC Hgb Hct MCV MCH MCHC RDW RDW Differential Plt Count MPV Immature Gran % (Auto) Neut % (Auto) Lymph % (Auto) [place] % (Auto) Eos % (Auto) Baso % (Auto) Absolute Neuts (auto) Absolute Lymphs (auto) Total Counted PT INR APTT Specimen Type Sample Site VBG pH VBG pO2 VBG O2 Sat (Calc) VBG O2 Content VBG Base Excess POC Mix VBG pCO2 Pt Tmp O2 Delivery Device Liter Flow Blood Gas Notified Whom Blood Gas Notified Time Sodium Potassium Chloride Carbon Dioxide Anion Gap BUN Creatinine Estim Creat Clear Calc Est GFR (MDRD) Af Amer Est GFR (MDRD) Non-Af BUN/Creatinine Ratio Glucose Calcium Ionized Calcium Pending Phosphorus Magnesium Troponin I B-Natriuretic Peptide Albumin Triglycerides Cholesterol LDL Cholesterol VLDL Cholesterol HDL Cholesterol Acetone Level Hep Bs Antigen Pending Hep Bs Antibody Pending POC Glucose 05/03/18 05/03/18 05/03/18 10:30 09:55 04:05 POC Glucose 99 40 L* 137 H 05/03/18 05/03/18 05/02/18 01:57 00:52 23:11 POC Glucose 296 H 408 H > 500 H* Medical Necessity - Tobacco Use Smoking Status: Never smoker Assessment/Plan All Active Problems (Last Reviewed 05/03/18 @ 03:17 by Eze Rivera MD) Hyperkalemia (Acute) Acute hyperglycemia (Acute) Shortness of breath (Acute) Left leg cellulitis (Acute) SIRS (systemic inflammatory response syndrome) (Acute) Periapical abscess (Acute) Anasarca (Acute) Edema (Acute) Abnormal stress test (Acute) Muscle cramp, nocturnal (Acute) Chest pain (Acute) Nausea and vomiting (Acute) Fever and chills (Acute) Malaise and fatigue (Acute) Preop cardiovascular exam (Acute) Acute diastolic (congestive) heart failure (Acute) Acute respiratory failure with hypoxia (Acute) 1. Chest pain - none currently. No EKG changes, negative tele. Trop neg x 3. Suspect 2/2 hyperkalemia, htn urgency, and CHF. Stress test 08/2017 negative. 2. Acute diastolic CHF exacerbation - edematous, CXR not with significant pleural effusion, elevated BNP. last ef 65% august 2017. Continue dialysis/lasix. PASP 31. 3. ESRD with marked hyperkalemia - improving. Dr. Gregorio following. received calcium gluc, insulin, kayex. 4. HTN emergency as marked by 204/88 with signs of Acute CHF - improving. Adjust gradually. 5. DMt2 with marked hyperglycemia - per endocrine notes he is noncompliant with insulin. Since admission glucose drastically improved. Negative acetone, although significantly acidotic on VBG. 6. Debility - ptot. 7. SELMA - Bipap qhs. 8. Chronic anemia - stable 9. HLD - statin. lipid panel unreliable 2/2 elevated trigs. DVT ppx: heparin DC planning: PTOT This patient was seen by Zachariah Meza PA-C under the supervision of Doctor Rodrick. <Isma Mensah - Last Filed: 05/03/18 14:35> Subjective: Chest pain resolved. - Physical Exam General: Alert, Cooperative, - - seen on HD. HEENT: Atraumatic, Normocephalic Oral: Moist Mucosa, No Gingival or Mucosal Lesions/ Ulcerations Lungs: Clear to auscultation, Normal air movement, No rhonchi, No wheeze Cardiovascular: Regular rate, Regular Rhythm, Normal S1, Normal S2 Abdomen: Soft, Non Tender, Non-Distended, Obese Extremities: No Calf Tenderness, Edema Vital Signs Temp Pulse Resp BP Pulse Ox 36.6 C 76 18 153/79 H 98 05/03/18 08:40 05/03/18 10:42 05/03/18 08:40 05/03/18 08:40 05/03/18 08:43 Oxygen Flow Rate (L/min) 2 Oxygen Delivery Method Bi-pap Weight: 132.8 kg Body Mass Index (BMI) 45.8 Finger Stick Blood Glucose 296 Intake and Output for Last 24 Hours 05/01/18 05/02/18 05/03/18 23:59 23:59 23:59 Intake Total 266.9 / 266.9 Balance 266.9 / 266.9 Laboratory Tests Past 24 Hrs 05/02/18 05/02/18 05/02/18 23:16 23:16 23:16 WBC 5.8 RBC 3.10 L Hgb 9.3 L Hct 28.7 L MCV 92.6 MCH 30.0 MCHC 32.4 RDW 13.7 RDW Differential 45.8 H Plt Count 197 MPV 9.7 Immature Gran % (Auto) 0.900 Neut % (Auto) 68.4 Lymph % (Auto) 17.2 L [place] % (Auto) 9.1 Eos % (Auto) 3.9 Baso % (Auto) 0.5 Absolute Neuts (auto) 4.0 Absolute Lymphs (auto) 1.00 Total Counted Not Reportable PT 13.2 INR 1.0 APTT 27.7 Specimen Type Sample Site VBG pH VBG pO2 VBG O2 Sat (Calc) VBG O2 Content VBG Base Excess POC Mix VBG pCO2 Pt Tmp O2 Delivery Device Liter Flow Blood Gas Notified Whom Blood Gas Notified Time Sodium 129 L Potassium 7.0 H* Chloride 96 L Carbon Dioxide 25.0 Anion Gap 8 BUN 58 H Creatinine 6.22 H Estim Creat Clear Calc 12.96 Est GFR (MDRD) Af Amer 12 L Est GFR (MDRD) Non-Af 10 L BUN/Creatinine Ratio 9.3 L Glucose 526 H* Calcium 7.4 L Ionized Calcium Phosphorus Magnesium Troponin I 0.022 B-Natriuretic Peptide Albumin Triglycerides Cholesterol LDL Cholesterol VLDL Cholesterol HDL Cholesterol Acetone Level Hep Bs Antigen Hep Bs Antibody 05/02/18 05/02/18 05/02/18 23:16 23:16 23:16 WBC RBC Hgb Hct MCV MCH MCHC RDW RDW Differential Plt Count MPV Immature Gran % (Auto) Neut % (Auto) Lymph % (Auto) [place] % (Auto) Eos % (Auto) Baso % (Auto) Absolute Neuts (auto) Absolute Lymphs (auto) Total Counted PT INR APTT Specimen Type Sample Site VBG pH VBG pO2 VBG O2 Sat (Calc) VBG O2 Content VBG Base Excess POC Mix VBG pCO2 Pt Tmp O2 Delivery Device Liter Flow Blood Gas Notified Whom Blood Gas Notified Time Sodium Potassium Chloride Carbon Dioxide Anion Gap BUN Creatinine Estim Creat Clear Calc Est GFR (MDRD) Af Amer Est GFR (MDRD) Non-Af BUN/Creatinine Ratio Glucose Calcium Ionized Calcium Phosphorus 5.5 H Magnesium 1.8 Troponin I B-Natriuretic Peptide 597.0 H Albumin Triglycerides Cholesterol LDL Cholesterol VLDL Cholesterol HDL Cholesterol Acetone Level NEGATIVE Hep Bs Antigen Hep Bs Antibody 05/03/18 05/03/18 05/03/18 00:29 00:45 02:17 WBC RBC Hgb Hct MCV MCH MCHC RDW RDW Differential Plt Count MPV Immature Gran % (Auto) Neut % (Auto) Lymph % (Auto) [place] % (Auto) Eos % (Auto) Baso % (Auto) Absolute Neuts (auto) Absolute Lymphs (auto) Total Counted PT INR APTT Specimen Type BRITTANY Sample Site OTHER VBG pH 7.26 L VBG pO2 35 VBG O2 Sat (Calc) 57 VBG O2 Content 29 VBG Base Excess 0 POC Mix VBG pCO2 Pt Tmp 61.2 H O2 Delivery Device Nasal Can Liter Flow 2.0 Blood Gas Notified Whom ED MD Blood Gas Notified Time 20 Sodium 130 L 133 L Potassium 7.3 H* 6.3 H* Chloride 96 L 100 Carbon Dioxide 27.0 25.0 Anion Gap 7 8 BUN 59 H 58 H Creatinine 6.19 H 6.28 H Estim Creat Clear Calc 13.03 12.84 Est GFR (MDRD) Af Amer 12 L 12 L Est GFR (MDRD) Non-Af 10 L 10 L BUN/Creatinine Ratio 9.5 L 9.2 L Glucose 445 H 275 H Calcium 7.5 L 7.7 L Ionized Calcium Phosphorus Magnesium Troponin I B-Natriuretic Peptide Albumin Triglycerides Cholesterol LDL Cholesterol VLDL Cholesterol HDL Cholesterol Acetone Level Hep Bs Antigen Hep Bs Antibody 05/03/18 05/03/18 05/03/18 02:17 02:17 05:30 WBC RBC Hgb Hct MCV MCH MCHC RDW RDW Differential Plt Count MPV Immature Gran % (Auto) Neut % (Auto) Lymph % (Auto) [place] % (Auto) Eos % (Auto) Baso % (Auto) Absolute Neuts (auto) Absolute Lymphs (auto) Total Counted PT INR APTT Specimen Type Sample Site VBG pH VBG pO2 VBG O2 Sat (Calc) VBG O2 Content VBG Base Excess POC Mix VBG pCO2 Pt Tmp O2 Delivery Device Liter Flow Blood Gas Notified Whom Blood Gas Notified Time Sodium 137 Potassium 5.9 H Chloride 102 Carbon Dioxide 23.0 Anion Gap 12 BUN 59 H Creatinine 6.17 H Estim Creat Clear Calc 13.54 Est GFR (MDRD) Af Amer 13 L Est GFR (MDRD) Non-Af 10 L BUN/Creatinine Ratio 9.6 L Glucose 113 H Calcium 7.6 L Ionized Calcium Phosphorus Magnesium Troponin I 0.020 0.015 B-Natriuretic Peptide Albumin 2.7 L Triglycerides 597 H Cholesterol 201 H LDL Cholesterol TNP VLDL Cholesterol TNP HDL Cholesterol 40 Acetone Level Hep Bs Antigen Hep Bs Antibody 05/03/18 05/03/18 05:30 12:25 WBC RBC Hgb Hct MCV MCH MCHC RDW RDW Differential Plt Count MPV Immature Gran % (Auto) Neut % (Auto) Lymph % (Auto) [place] % (Auto) Eos % (Auto) Baso % (Auto) Absolute Neuts (auto) Absolute Lymphs (auto) Total Counted PT INR APTT Specimen Type Sample Site VBG pH VBG pO2 VBG O2 Sat (Calc) VBG O2 Content VBG Base Excess POC Mix VBG pCO2 Pt Tmp O2 Delivery Device Liter Flow Blood Gas Notified Whom Blood Gas Notified Time Sodium Potassium Chloride Carbon Dioxide Anion Gap BUN Creatinine Estim Creat Clear Calc Est GFR (MDRD) Af Amer Est GFR (MDRD) Non-Af BUN/Creatinine Ratio Glucose Calcium Ionized Calcium Pending Phosphorus Magnesium Troponin I B-Natriuretic Peptide Albumin Triglycerides Cholesterol LDL Cholesterol VLDL Cholesterol HDL Cholesterol Acetone Level Hep Bs Antigen Pending Hep Bs Antibody Pending POC Glucose 05/03/18 05/03/18 05/03/18 10:30 09:55 04:05 POC Glucose 99 40 L* 137 H 05/03/18 05/03/18 05/02/18 01:57 00:52 23:11 POC Glucose 296 H 408 H > 500 H* Assessment/Plan Patient seen and examined independently. Data reviewed. I agree with the above note by the physician nurse assistant. 1. Chest pain: Currently resolved Troponins negative Previous stress test in August was negative No additional workup at this time 2. Acute heart failure with preserved ejection fraction EF 65% from echocardiogram August 2017 Complicated by the fact patient is end-stage renal disease Currently on dialysis 3. Hyperkalemia Improved Patient did receive 50 mg of Kayexalate, IV fluids, insulin and calcium gluconate Improved even before the patient did receive dialysis Will follow up 4. Diabetes mellitus type 2 Uncontrolled States that he is not able to afford his insulin at home Continue Lantus and sliding scale insulin for now his blood sugars. Be much more improved 5. DVT prophylaxis with heparin Code Visit Procedures: Other Procedure - See Report - Non-billable rounding.
--- NOTE | 2018-05-03 13:57 | CASEMGMT ---
AMIRAH BAUER assessment: Face to Face with patient for initial transition planning/care coordination assessment. RN LIZETTE introduced self and role at [facility], pt voices understanding and consents to assessment at this time. Pt is sitting up in bed in no distress at this time. Pt is A/Ox4 at this time and answers all questions appropriately at this time. Care providers, pharmacy, and demographics verified at this time. PCP: [facility] Specialists: krista Riggs; moshe Gregorio; bertha Bowen Preferred Pharmacy: [facility] Insurance: [facility] Prescription Benefit: [facility] Living Will/HPOA: Pt has LW/HPOA paperwork completed and they are on file at [facility] at this time. Pt states his sig other, Charity Madden, is HPOA. LNOK: Charity Madden, sig other Living Arrangements: Pt states lives with sig other in mobile home and states no concerns at home at this time. Pt states has 3 steps into home with a rail on one side. Pt states that he is able to bathe self but sometimes has difficulty getting dressed and sig other assists. Transportation: Pt states normally drives self and states no transportation concerns at this time. DME/HHC: Pt states has the following DME: shower chair, cane, walker, bipap, and home oxygen [facility] liters thru [facility]. Pt is active for T, TH, Sat dialysis thru [facility]. Pt states has had [facility] in the past but is not current. Pt states has never been to SNF. Pt states no concerns with going home at time of discharge. Pt states he is on disability but does still work 2 days/week. Pt states no further concerns/needs at this time. CM to follow for any further discharge planning/needs. Advised pt/sig other to call this RN CM if any further questions/concerns/needs arise, voices understanding. Plan[place] AMIRAH BAUER
--- NOTE | 2018-05-03 14:06 | PN_ITS ---
Addendum entered and electronically signed by BENJI Wooten 05/03/18 16:30: Code Visit Clarification : Hypertensive emergency, not urgency. Original Note: <Zachariah Meza - Last Filed: 05/03/18 13:54> Patient Problems: Active and Suspected Problems (Last Reviewed 05/03/18 @ 03:17 by Eze Rivera MD) Hyperkalemia (Acute) Acute hyperglycemia (Acute) Subjective: Pt seen during dialysis session. Reports primary complaint was fatigue which is improved. Also reports breathing is improved. He does have non productive cough. No fevers/chills. No CP/dizziness/LH/palp. Does have BL LE edema. - Physical Exam General: Alert, Oriented x3, Cooperative HEENT: Atraumatic, PERRLA, EOMI, Normocephalic Neck: Supple, No JVD, Negative Carotid Bruits Lungs: Clear to auscultation, Normal air movement Cardiovascular: Regular rate, No murmurs Abdomen: Bowel Sounds Present, Soft, Non Tender, Obese Extremities: Capillary Refill Less than 3 Seconds, Edema Skin: No rashes, No breakdown Musculoskeletal: No Tenderness to Palpation of Joints or Extremities Neurological: Cranial nerves II-XII grossly intact Psych/Mental Status: Normal Affect, Appropriate, Alert and oriented to time, place, person, mood and affect Vital Signs Temp Pulse Resp BP Pulse Ox 97.8 F 76 18 153/79 H 98 05/03/18 08:40 05/03/18 10:42 05/03/18 08:40 05/03/18 08:40 05/03/18 08:43 Oxygen Flow Rate (L/min) 2 Oxygen Delivery Method Bi-pap Weight: 292 lb 12.382 oz Body Mass Index (BMI) 45.8 Finger Stick Blood Glucose 296 Intake and Output for Last 24 Hours 05/01/18 05/02/18 05/03/18 23:59 23:59 23:59 Intake Total 266.9 / 266.9 Balance 266.9 / 266.9 Laboratory Tests Past 24 Hrs 05/02/18 05/02/18 05/02/18 23:16 23:16 23:16 WBC 5.8 RBC 3.10 L Hgb 9.3 L Hct 28.7 L MCV 92.6 MCH 30.0 MCHC 32.4 RDW 13.7 RDW Differential 45.8 H Plt Count 197 MPV 9.7 Immature Gran % (Auto) 0.900 Neut % (Auto) 68.4 Lymph % (Auto) 17.2 L [place] % (Auto) 9.1 Eos % (Auto) 3.9 Baso % (Auto) 0.5 Absolute Neuts (auto) 4.0 Absolute Lymphs (auto) 1.00 Total Counted Not Reportable PT 13.2 INR 1.0 APTT 27.7 Specimen Type Sample Site VBG pH VBG pO2 VBG O2 Sat (Calc) VBG O2 Content VBG Base Excess POC Mix VBG pCO2 Pt Tmp O2 Delivery Device Liter Flow Blood Gas Notified Whom Blood Gas Notified Time Sodium 129 L Potassium 7.0 H* Chloride 96 L Carbon Dioxide 25.0 Anion Gap 8 BUN 58 H Creatinine 6.22 H Estim Creat Clear Calc 12.96 Est GFR (MDRD) Af Amer 12 L Est GFR (MDRD) Non-Af 10 L BUN/Creatinine Ratio 9.3 L Glucose 526 H* Calcium 7.4 L Ionized Calcium Phosphorus Magnesium Troponin I 0.022 B-Natriuretic Peptide Albumin Triglycerides Cholesterol LDL Cholesterol VLDL Cholesterol HDL Cholesterol Acetone Level Hep Bs Antigen Hep Bs Antibody 05/02/18 05/02/18 05/02/18 23:16 23:16 23:16 WBC RBC Hgb Hct MCV MCH MCHC RDW RDW Differential Plt Count MPV Immature Gran % (Auto) Neut % (Auto) Lymph % (Auto) Jennings % (Auto) Eos % (Auto) Baso % (Auto) Absolute Neuts (auto) Absolute Lymphs (auto) Total Counted PT INR APTT Specimen Type Sample Site VBG pH VBG pO2 VBG O2 Sat (Calc) VBG O2 Content VBG Base Excess POC Mix VBG pCO2 Pt Tmp O2 Delivery Device Liter Flow Blood Gas Notified Whom Blood Gas Notified Time Sodium Potassium Chloride Carbon Dioxide Anion Gap BUN Creatinine Estim Creat Clear Calc Est GFR (MDRD) Af Amer Est GFR (MDRD) Non-Af BUN/Creatinine Ratio Glucose Calcium Ionized Calcium Phosphorus 5.5 H Magnesium 1.8 Troponin I B-Natriuretic Peptide 597.0 H Albumin Triglycerides Cholesterol LDL Cholesterol VLDL Cholesterol HDL Cholesterol Acetone Level NEGATIVE Hep Bs Antigen Hep Bs Antibody 05/03/18 05/03/18 05/03/18 00:29 00:45 02:17 WBC RBC Hgb Hct MCV MCH MCHC RDW RDW Differential Plt Count MPV Immature Gran % (Auto) Neut % (Auto) Lymph % (Auto) [place] % (Auto) Eos % (Auto) Baso % (Auto) Absolute Neuts (auto) Absolute Lymphs (auto) Total Counted PT INR APTT Specimen Type BRITTANY Sample Site OTHER VBG pH 7.26 L VBG pO2 35 VBG O2 Sat (Calc) 57 VBG O2 Content 29 VBG Base Excess 0 POC Mix VBG pCO2 Pt Tmp 61.2 H O2 Delivery Device Nasal Can Liter Flow 2.0 Blood Gas Notified Whom ED MD Blood Gas Notified Time 20 Sodium 130 L 133 L Potassium 7.3 H* 6.3 H* Chloride 96 L 100 Carbon Dioxide 27.0 25.0 Anion Gap 7 8 BUN 59 H 58 H Creatinine 6.19 H 6.28 H Estim Creat Clear Calc 13.03 12.84 Est GFR (MDRD) Af Amer 12 L 12 L Est GFR (MDRD) Non-Af 10 L 10 L BUN/Creatinine Ratio 9.5 L 9.2 L Glucose 445 H 275 H Calcium 7.5 L 7.7 L Ionized Calcium Phosphorus Magnesium Troponin I B-Natriuretic Peptide Albumin Triglycerides Cholesterol LDL Cholesterol VLDL Cholesterol HDL Cholesterol Acetone Level Hep Bs Antigen Hep Bs Antibody 05/03/18 05/03/18 05/03/18 02:17 02:17 05:30 WBC RBC Hgb Hct MCV MCH MCHC RDW RDW Differential Plt Count MPV Immature Gran % (Auto) Neut % (Auto) Lymph % (Auto) [place] % (Auto) Eos % (Auto) Baso % (Auto) Absolute Neuts (auto) Absolute Lymphs (auto) Total Counted PT INR APTT Specimen Type Sample Site VBG pH VBG pO2 VBG O2 Sat (Calc) VBG O2 Content VBG Base Excess POC Mix VBG pCO2 Pt Tmp O2 Delivery Device Liter Flow Blood Gas Notified Whom Blood Gas Notified Time Sodium 137 Potassium 5.9 H Chloride 102 Carbon Dioxide 23.0 Anion Gap 12 BUN 59 H Creatinine 6.17 H Estim Creat Clear Calc 13.54 Est GFR (MDRD) Af Amer 13 L Est GFR (MDRD) Non-Af 10 L BUN/Creatinine Ratio 9.6 L Glucose 113 H Calcium 7.6 L Ionized Calcium Phosphorus Magnesium Troponin I 0.020 0.015 B-Natriuretic Peptide Albumin 2.7 L Triglycerides 597 H Cholesterol 201 H LDL Cholesterol TNP VLDL Cholesterol TNP HDL Cholesterol 40 Acetone Level Hep Bs Antigen Hep Bs Antibody 05/03/18 05/03/18 05:30 12:25 WBC RBC Hgb Hct MCV MCH MCHC RDW RDW Differential Plt Count MPV Immature Gran % (Auto) Neut % (Auto) Lymph % (Auto) Jennings % (Auto) Eos % (Auto) Baso % (Auto) Absolute Neuts (auto) Absolute Lymphs (auto) Total Counted PT INR APTT Specimen Type Sample Site VBG pH VBG pO2 VBG O2 Sat (Calc) VBG O2 Content VBG Base Excess POC Mix VBG pCO2 Pt Tmp O2 Delivery Device Liter Flow Blood Gas Notified Whom Blood Gas Notified Time Sodium Potassium Chloride Carbon Dioxide Anion Gap BUN Creatinine Estim Creat Clear Calc Est GFR (MDRD) Af Amer Est GFR (MDRD) Non-Af BUN/Creatinine Ratio Glucose Calcium Ionized Calcium Pending Phosphorus Magnesium Troponin I B-Natriuretic Peptide Albumin Triglycerides Cholesterol LDL Cholesterol VLDL Cholesterol HDL Cholesterol Acetone Level Hep Bs Antigen Pending Hep Bs Antibody Pending POC Glucose 05/03/18 05/03/18 05/03/18 10:30 09:55 04:05 POC Glucose 99 40 L* 137 H 05/03/18 05/03/18 05/02/18 01:57 00:52 23:11 POC Glucose 296 H 408 H > 500 H* Medical Necessity - Tobacco Use Smoking Status: Never smoker Assessment/Plan All Active Problems (Last Reviewed 05/03/18 @ 03:17 by Eze Rivera MD) Hyperkalemia (Acute) Acute hyperglycemia (Acute) Shortness of breath (Acute) Left leg cellulitis (Acute) SIRS (systemic inflammatory response syndrome) (Acute) Periapical abscess (Acute) Anasarca (Acute) Edema (Acute) Abnormal stress test (Acute) Muscle cramp, nocturnal (Acute) Chest pain (Acute) Nausea and vomiting (Acute) Fever and chills (Acute) Malaise and fatigue (Acute) Preop cardiovascular exam (Acute) Acute diastolic (congestive) heart failure (Acute) Acute respiratory failure with hypoxia (Acute) 1. Chest pain - none currently. No EKG changes, negative tele. Trop neg x 3. Suspect 2/2 hyperkalemia, htn urgency, and CHF. Stress test 08/2017 negative. 2. Acute diastolic CHF exacerbation - edematous, CXR not with significant pleural effusion, elevated BNP. last ef 65% august 2017. Continue dialysis/lasix. PASP 31. 3. ESRD with marked hyperkalemia - improving. Dr. Gregorio following. received calcium gluc, insulin, kayex. 4. HTN emergency as marked by with signs of Acute CHF - improving. Adjust gradually. 5. DMt2 with marked hyperglycemia - per endocrine notes he is noncompliant with insulin. Since admission glucose drastically improved. Negative acetone, although significantly acidotic on VBG. 6. Debility - ptot. 7. SELMA - Bipap qhs. 8. Chronic anemia - stable 9. HLD - statin. lipid panel unreliable 2/2 elevated trigs. DVT ppx: heparin DC planning: PTOT This patient was seen by Zachariah Meza PA-C under the supervision of Doctor Rodrick. <Isma Mensah - Last Filed: 05/03/18 14:35> Subjective: Chest pain resolved. - Physical Exam General: Alert, Cooperative, - - seen on HD. HEENT: Atraumatic, Normocephalic Oral: Moist Mucosa, No Gingival or Mucosal Lesions/ Ulcerations Lungs: Clear to auscultation, Normal air movement, No rhonchi, No wheeze Cardiovascular: Regular rate, Regular Rhythm, Normal S1, Normal S2 Abdomen: Soft, Non Tender, Non-Distended, Obese Extremities: No Calf Tenderness, Edema Vital Signs Temp Pulse Resp BP Pulse Ox 36.6 C 76 18 153/79 H 98 05/03/18 08:40 05/03/18 10:42 05/03/18 08:40 05/03/18 08:40 05/03/18 08:43 Oxygen Flow Rate (L/min) 2 Oxygen Delivery Method Bi-pap Weight: 132.8 kg Body Mass Index (BMI) 45.8 Finger Stick Blood Glucose 296 Intake and Output for Last 24 Hours 05/01/18 05/02/18 05/03/18 23:59 23:59 23:59 Intake Total 266.9 / 266.9 Balance 266.9 / 266.9 Laboratory Tests Past 24 Hrs 05/02/18 05/02/18 05/02/18 23:16 23:16 23:16 WBC 5.8 RBC 3.10 L Hgb 9.3 L Hct 28.7 L MCV 92.6 MCH 30.0 MCHC 32.4 RDW 13.7 RDW Differential 45.8 H Plt Count 197 MPV 9.7 Immature Gran % (Auto) 0.900 Neut % (Auto) 68.4 Lymph % (Auto) 17.2 L Jennings % (Auto) 9.1 Eos % (Auto) 3.9 Baso % (Auto) 0.5 Absolute Neuts (auto) 4.0 Absolute Lymphs (auto) 1.00 Total Counted Not Reportable PT 13.2 INR 1.0 APTT 27.7 Specimen Type Sample Site VBG pH VBG pO2 VBG O2 Sat (Calc) VBG O2 Content VBG Base Excess POC Mix VBG pCO2 Pt Tmp O2 Delivery Device Liter Flow Blood Gas Notified Whom Blood Gas Notified Time Sodium 129 L Potassium 7.0 H* Chloride 96 L Carbon Dioxide 25.0 Anion Gap 8 BUN 58 H Creatinine 6.22 H Estim Creat Clear Calc 12.96 Est GFR (MDRD) Af Amer 12 L Est GFR (MDRD) Non-Af 10 L BUN/Creatinine Ratio 9.3 L Glucose 526 H* Calcium 7.4 L Ionized Calcium Phosphorus Magnesium Troponin I 0.022 B-Natriuretic Peptide Albumin Triglycerides Cholesterol LDL Cholesterol VLDL Cholesterol HDL Cholesterol Acetone Level Hep Bs Antigen Hep Bs Antibody 05/02/18 05/02/18 05/02/18 23:16 23:16 23:16 WBC RBC Hgb Hct MCV MCH MCHC RDW RDW Differential Plt Count MPV Immature Gran % (Auto) Neut % (Auto) Lymph % (Auto) Jennings % (Auto) Eos % (Auto) Baso % (Auto) Absolute Neuts (auto) Absolute Lymphs (auto) Total Counted PT INR APTT Specimen Type Sample Site VBG pH VBG pO2 VBG O2 Sat (Calc) VBG O2 Content VBG Base Excess POC Mix VBG pCO2 Pt Tmp O2 Delivery Device Liter Flow Blood Gas Notified Whom Blood Gas Notified Time Sodium Potassium Chloride Carbon Dioxide Anion Gap BUN Creatinine Estim Creat Clear Calc Est GFR (MDRD) Af Amer Est GFR (MDRD) Non-Af BUN/Creatinine Ratio Glucose Calcium Ionized Calcium Phosphorus 5.5 H Magnesium 1.8 Troponin I B-Natriuretic Peptide 597.0 H Albumin Triglycerides Cholesterol LDL Cholesterol VLDL Cholesterol HDL Cholesterol Acetone Level NEGATIVE Hep Bs Antigen Hep Bs Antibody 05/03/18 05/03/18 05/03/18 00:29 00:45 02:17 WBC RBC Hgb Hct MCV MCH MCHC RDW RDW Differential Plt Count MPV Immature Gran % (Auto) Neut % (Auto) Lymph % (Auto) Jennings % (Auto) Eos % (Auto) Baso % (Auto) Absolute Neuts (auto) Absolute Lymphs (auto) Total Counted PT INR APTT Specimen Type BRITTANY Sample Site OTHER VBG pH 7.26 L VBG pO2 35 VBG O2 Sat (Calc) 57 VBG O2 Content 29 VBG Base Excess 0 POC Mix VBG pCO2 Pt Tmp 61.2 H O2 Delivery Device Nasal Can Liter Flow 2.0 Blood Gas Notified Whom ED MD Blood Gas Notified Time 20 Sodium 130 L 133 L Potassium 7.3 H* 6.3 H* Chloride 96 L 100 Carbon Dioxide 27.0 25.0 Anion Gap 7 8 BUN 59 H 58 H Creatinine 6.19 H 6.28 H Estim Creat Clear Calc 13.03 12.84 Est GFR (MDRD) Af Amer 12 L 12 L Est GFR (MDRD) Non-Af 10 L 10 L BUN/Creatinine Ratio 9.5 L 9.2 L Glucose 445 H 275 H Calcium 7.5 L 7.7 L Ionized Calcium Phosphorus Magnesium Troponin I B-Natriuretic Peptide Albumin Triglycerides Cholesterol LDL Cholesterol VLDL Cholesterol HDL Cholesterol Acetone Level Hep Bs Antigen Hep Bs Antibody 05/03/18 05/03/18 05/03/18 02:17 02:17 05:30 WBC RBC Hgb Hct MCV MCH MCHC RDW RDW Differential Plt Count MPV Immature Gran % (Auto) Neut % (Auto) Lymph % (Auto) Jennings % (Auto) Eos % (Auto) Baso % (Auto) Absolute Neuts (auto) Absolute Lymphs (auto) Total Counted PT INR APTT Specimen Type Sample Site VBG pH VBG pO2 VBG O2 Sat (Calc) VBG O2 Content VBG Base Excess POC Mix VBG pCO2 Pt Tmp O2 Delivery Device Liter Flow Blood Gas Notified Whom Blood Gas Notified Time Sodium 137 Potassium 5.9 H Chloride 102 Carbon Dioxide 23.0 Anion Gap 12 BUN 59 H Creatinine 6.17 H Estim Creat Clear Calc 13.54 Est GFR (MDRD) Af Amer 13 L Est GFR (MDRD) Non-Af 10 L BUN/Creatinine Ratio 9.6 L Glucose 113 H Calcium 7.6 L Ionized Calcium Phosphorus Magnesium Troponin I 0.020 0.015 B-Natriuretic Peptide Albumin 2.7 L Triglycerides 597 H Cholesterol 201 H LDL Cholesterol TNP VLDL Cholesterol TNP HDL Cholesterol 40 Acetone Level Hep Bs Antigen Hep Bs Antibody 05/03/18 05/03/18 05:30 12:25 WBC RBC Hgb Hct MCV MCH MCHC RDW RDW Differential Plt Count MPV Immature Gran % (Auto) Neut % (Auto) Lymph % (Auto) Jennings % (Auto) Eos % (Auto) Baso % (Auto) Absolute Neuts (auto) Absolute Lymphs (auto) Total Counted PT INR APTT Specimen Type Sample Site VBG pH VBG pO2 VBG O2 Sat (Calc) VBG O2 Content VBG Base Excess POC Mix VBG pCO2 Pt Tmp O2 Delivery Device Liter Flow Blood Gas Notified Whom Blood Gas Notified Time Sodium Potassium Chloride Carbon Dioxide Anion Gap BUN Creatinine Estim Creat Clear Calc Est GFR (MDRD) Af Amer Est GFR (MDRD) Non-Af BUN/Creatinine Ratio Glucose Calcium Ionized Calcium Pending Phosphorus Magnesium Troponin I B-Natriuretic Peptide Albumin Triglycerides Cholesterol LDL Cholesterol VLDL Cholesterol HDL Cholesterol Acetone Level Hep Bs Antigen Pending Hep Bs Antibody Pending POC Glucose 05/03/18 05/03/18 05/03/18 10:30 09:55 04:05 POC Glucose 99 40 L* 137 H 05/03/18 05/03/18 05/02/18 01:57 00:52 23:11 POC Glucose 296 H 408 H > 500 H* Assessment/Plan Patient seen and examined independently. Data reviewed. I agree with the above note by the physician home care assistant. 1. Chest pain: * Currently resolved * Troponins negative * Previous stress test in August was negative * No additional workup at this time 2. Acute heart failure with preserved ejection fraction * EF 65% from echocardiogram August 2017 * Complicated by the fact patient is end-stage renal disease * Currently on dialysis 3. Hyperkalemia * Improved * Patient did receive 50 mg of Kayexalate, IV fluids, insulin and calcium gluconate * Improved even before the patient did receive dialysis * Will follow up 4. Diabetes mellitus type 2 * Uncontrolled * States that he is not able to afford his insulin at home * Continue Lantus and sliding scale insulin for now his blood sugars. Be much more improved 5. DVT prophylaxis with heparin Code Visit Procedures: Other Procedure - See Report - Non-billable rounding.
[2018-05-03 14:30] LABS: Bedside Glucose 79 mg/dL (70-110)
--- NOTE | 2018-05-03 15:12 | DIALYSIS ---
Pt tolerated 4hr HD tx well. Net UF -3400ml. Hep B Sag and Hep B Sab drawn and sent. See flow record for tx data.
--- NOTE | 2018-05-03 15:22 | CHAPLAIN ---
Type of Pastoral Visit _x__ Initial Visit ___ Follow-up Visit ___ On-call Visit ___ General Patient Visit ___ Spiritual Assessment ___ Family Conference ___ Bereavement ___ Rapid Response ___ Code Blue ___ Other (describe below) Pastoral Care Referral From _x__ Patient ___ Family ___ Nurse ___ Physician ___ Industrial Tractor Driver ___ Client Renewal Specialist ___ Other (describe below) Sacrament/Intervention ___ Active listening ___ Anointing ___ Mormon ___ Bereavement ___ Communion ___ Patricia exploration ___ ___ Life review ___ Prayer ___ Reconciliation ___ Sacrament of Sick _x__ Supportive presence ___ Wedding ___ Other (describe below) Pastoral Comments patient is offered spiritual support; pt is receiving dialysis treatment at this time and just nods his head as answers to questions; SO of pt is in the room; SO says that she has contacted sabianist of pt admission to hospital; this was initial reason for referral; offer of support given for any future needs
[2018-05-03] MEDS: Pantoprazole Sodium 40 MG Tablet PO (15:35)
[2018-05-03] MEDS: Lisinopril 10 MG Tablet PO (15:36)
[2018-05-03] MEDS: SEVELAMER CARBONATE 800 MG TABLET PO (15:36)
[2018-05-03] MEDS: Metoprolol Tartrate 50 MG Tablet PO ×2 (15:36→21:51)
[2018-05-03] MEDS: Aspirin E.C. 81 MG Tablet PO (15:36)
[2018-05-03] MEDS: Glucerna Shake 120 ML LIQUID PO (15:37)
[2018-05-03] MEDS: Insulin Lispro 100 UNIT/ML INSULN.PEN SQ ×2 (16:56→21:52)
[2018-05-03 16:57] LABS: Bacteria 0 SEEN /hpf (None Seen); Mucous, Urine 0 SEEN /hpf (<or=2+)
[2018-05-03 16:59] LABS: Color, Urine Yellow (Yellow); Glucose, Dipstick 100 mg/dl (Normal); Ketone-Dipstick Negative (Negative); Leukocyte Esterase-Dipstick 25 /ul (Negative); Nitrite-Dipstick Negative (Negative); Occult Blood-Urine 25 /ul (Negative); Protein-Dipstick 500 mg/dl (Negative); Specific Gravity, Urine 1.015 (1.002-1.030); Urine Bilirubin Dipstick Negative (Negative); Urine Clarity Sl. Cloudy (Clear); Urine Urobilinogen Normal (Normal); Urine pH 6.5 (5.0 - 8.0)
[2018-05-03 17:01] LABS: Bedside Glucose 151 mg/dL (70-110)
[2018-05-03 17:41] LABS: Red Blood Cells-Urine 0-5 SEEN /hpf (0-5); Squamous Epithelial Cells - UA 0-5 SEEN /hpf (0-5); White Blood Cells 0-5 SEEN /hpf (0-5)
[2018-05-03 17:42] LABS: Amorphous Sediment 1+ URATE; Fine Granular Cast- Urine 0-5 SEEN /lpf (0-5); Hyaline Cast 0-5 SEEN /lpf (0-5)
--- NOTE | 2018-05-03 18:29 | DIALYSIS ---
Pt tolerated 3.25hr HD tx w/some cramping noted approximately 2hrs into tx. Resolved w/ decreased UFR and NS rinse. Net UF -1400nl. See flow record for tx data.
[2018-05-03] MEDS: Atorvastatin Calcium 40 MG Tablet PO (21:51)
[2018-05-03 22:00] LABS: Bedside Glucose 231 mg/dL (70-110)
[2018-05-03] MEDS: Acetaminophen 325 MG Tablet 650 MG PO (22:36)
[2018-05-03 23:13] LABS: Magnesium 1.7 mg/dL (1.6-2.6)
[2018-05-04] VITALS (10 sets, daily range): BP systolic 124–150; BP diastolic 54–80; PULSE 70–78; RESP 12–18; TEMP 36.3–36.9; O2SAT 95–98
[2018-05-04] MEDS: Insulin Lispro 100 UNIT/ML INSULN.PEN SQ ×3 (02:46→09:11)
[2018-05-04 03:00] LABS: Bedside Glucose 257 mg/dL (70-110)
[2018-05-04] MEDS: Heparin Injection (Vial) 5,000 UNIT/ML VIAL 5000 UNIT SC (05:49)
[2018-05-04] MEDS: 0.9% NaCl Peripheral Flush Adult/Peds IV (05:50)
[2018-05-04 06:27] LABS: Anion Gap 11 (5-15); BUN 45 mg/dL (7-18); BUN/Creat Ratio 8.5 RATIO (10-20); Chloride 95 mmol/L (98-107); Creatinine, Serum 5.27 mg/dL (0.70-1.30); EST Glomerular Filtration Rate 12 mL/min (>60); Est Glom Filt Rate - Afr Amer 15 mL/min (>60); Estimated Creatinine Clearance 15.85 ml/min; Glucose 261 mg/dL (74-106); Potassium 4.9 mmol/L (3.5-5.1); Sodium Level 133 mmol/L (136-145)
[2018-05-04 06:46] LABS: Bedside Glucose 239 mg/dL (70-110)
[2018-05-04] MEDS: SEVELAMER CARBONATE 800 MG TABLET PO ×2 (08:59→11:49)
[2018-05-04] MEDS: Aspirin E.C. 81 MG Tablet PO (09:00)
[2018-05-04] MEDS: Lisinopril 10 MG Tablet PO (09:05)
[2018-05-04] MEDS: Pantoprazole Sodium 40 MG Tablet PO (09:05)
[2018-05-04] MEDS: Metoprolol Tartrate 50 MG Tablet PO (09:05)
[2018-05-04 10:21] LABS: Bedside Glucose 234 mg/dL (70-110)
--- NOTE | 2018-05-04 11:01 | PCM.PN.REN ---
Patient Problems: Active and Suspected Problems (Last Reviewed 05/03/18 @ 03:17 by Eze Rivera MD) Hyperkalemia (Acute) Acute hyperglycemia (Acute) Subjective: no further CP, no SOB - Physical Exam General: Alert, Oriented x3, Cooperative Lungs: Clear to auscultation Abdomen: Soft, Non Tender, Obese Extremities: No edema Vital Signs Temp Pulse Resp BP Pulse Ox 97.3 F L 76 18 150/80 H 98 05/04/18 09:00 05/04/18 09:05 05/04/18 09:00 05/04/18 09:00 05/04/18 09:00 Oxygen Flow Rate (L/min) 2 Oxygen Delivery Method Room Air Weight: 132.8 kg Body Mass Index (BMI) 45.8 Finger Stick Blood Glucose 296 Intake and Output for Last 24 Hours 05/02/18 05/03/18 05/04/18 23:59 23:59 23:59 Intake Total 706.9 / 706.9 240 / 240 Output Total 5100 / 5100 950 / 950 Balance -4393.1 / -4393.1 -710 / -710 Laboratory Tests Past 24 Hrs 05/03/18 05/03/18 05/03/18 12:25 16:45 22:48 Sodium Potassium Chloride Carbon Dioxide Anion Gap BUN Creatinine Estim Creat Clear Calc Est GFR (MDRD) Af Amer Est GFR (MDRD) Non-Af BUN/Creatinine Ratio Glucose Calcium Magnesium 1.7 Urine Color Yellow Urine Clarity Sl. Cloudy Urine pH 6.5 Ur Specific [place] 1.015 Urine Protein 500 H Urine Glucose (UA) 100 H Urine Ketones Negative Urine Occult Blood 25 H Urine Nitrite Negative Urine Bilirubin Negative Urine Urobilinogen Normal Ur Leukocyte Esterase 25 H Urine RBC 0-5 SEEN Urine WBC 0-5 SEEN Ur Squamous Epith Cells 0-5 SEEN Amorphous Sediment 1+ URATE Urine Bacteria 0 SEEN Hyaline Casts 0-5 SEEN Fine Granular Casts 0-5 SEEN Urine Mucus 0 SEEN Hep Bs Antigen Pending Hep Bs Antibody Pending 05/04/18 05:15 Sodium 133 L Potassium 4.9 Chloride 95 L Carbon Dioxide 27.0 Anion Gap 11 BUN 45 H Creatinine 5.27 H Estim Creat Clear Calc 15.85 Est GFR (MDRD) Af Amer 15 L Est GFR (MDRD) Non-Af 12 L BUN/Creatinine Ratio 8.5 L Glucose 261 H Calcium 7.0 L Magnesium Urine Color Urine Clarity Urine pH Ur Specific [place] Urine Protein Urine Glucose (UA) Urine Ketones Urine Occult Blood Urine Nitrite Urine Bilirubin Urine Urobilinogen Ur Leukocyte Esterase Urine RBC Urine WBC Ur Squamous Epith Cells Amorphous Sediment Urine Bacteria Hyaline Casts Fine Granular Casts Urine Mucus Hep Bs Antigen Hep Bs Antibody POC Glucose 05/04/18 05/04/18 05/04/18 09:10 05:45 02:44 POC Glucose 234 H 239 H 257 H 05/03/18 05/03/18 05/03/18 21:45 16:55 14:24 POC Glucose 231 H 151 H 79 Medical Necessity - Tobacco Use Smoking Status: Never smoker Assessment/Plan All Active Problems (Last Reviewed 05/03/18 @ 03:17 by Eze Rivera MD) Hyperkalemia (Acute) Acute hyperglycemia (Acute) Shortness of breath (Acute) Left leg cellulitis (Acute) SIRS (systemic inflammatory response syndrome) (Acute) Periapical abscess (Acute) Anasarca (Acute) Edema (Acute) Abnormal stress test (Acute) Muscle cramp, nocturnal (Acute) Chest pain (Acute) Nausea and vomiting (Acute) Fever and chills (Acute) Malaise and fatigue (Acute) Preop cardiovascular exam (Acute) Acute diastolic (congestive) heart failure (Acute) Acute respiratory failure with hypoxia (Acute) 1. ESRD HD today and TTS 2. Hyperkalemia corrected with urgent dialysis 3. Chest pain with unremarkable troponins and EKG. primary mgmt 4. HTN stable 5. DM2 primary mgmt, hyperglycemic with no AG. 6. Noncompliance with medications, diet ok to dc home from renal standpoint.
--- NOTE | 2018-05-04 11:05 | DCINST_ITS ---
- Discharge Diagnoses Current Active Problems: Current Active and Chronic Problems (Last Reviewed 05/03/18 @ 03:17 by Eze Rivera MD) Hyperkalemia (Acute) Acute hyperglycemia (Acute) You will use the following diet at home:: Calorie/Carbohydrate Controlled (specify 1200, 1400, etc) - 1800 stacie / day, Cardiac - <2 g sodium daily, Renal (restricted protein/sodium) Your food should be the consistency of: Regular Your liquids should be the consistency of: Regular/Thin Discharge Activity: Return to Normal Activity Allergies/Adverse Reactions: Allergies venom-honey bee [bee venom (honey bee)] Allergy (Verified 05/03/18 02:59) Swelling sulfamethoxazole [From Bactrim] Adverse Reaction (Verified 05/03/18 02:59) Upset Stomach trimethoprim [From Bactrim] Adverse Reaction (Verified 05/03/18 02:59) Upset Stomach Medications to take at Discharge Atorvastatin Calcium [Lipitor] 20 mg PO QHS 10/11/17 Isosorbide Mononitrate [Imdur] 30 mg PO DAILY 10/11/17 Lisinopril [Zestril] 10 mg PO DAILY 10/11/17 Metoprolol Tartrate [Lopressor (beta khoa)] 50 mg PO BID 10/11/17 Omeprazole 40 mg PO DAILY 10/11/17 Pyridoxine HCl [Vitamin B-6] 100 mg PO DAILY 10/11/17 Sevelamer HCl [Renagel] 800 mg PO TID 10/11/17 Vits A,C,E/Lutein/Minerals [Ocuvite with Lutein Tablet] 1 ea PO DAILY 10/11/17 Folic Acid/Vitamin B Comp W-C [Nephrocaps, Renaphro] 1 cap PO DAILY 10/27/17 Insulin U-500 [Humulin R U-500 (BKC)] 0.18 ml SC DAILY 10/27/17 Insulin U-500 [Humulin R U-500 (BKC)] 0.23 ml SC QHS 10/27/17 FreeStyle Lite Strips See Dose Instructions .ROUTE .MEDSUPPLY #100 ea NS 11/29/17 insulin syringe-needle U-100 1/2 mL 30 gauge x 5/16 See Dose Instructions .ROUTE .MEDSUPPLY #60 ea 11/29/17 albuterol sulfate HFA 90 mcg/actuation aerosol inhaler 2 puff INHALATION Q4H PRN #18 g 02/26/18 Aspirin E.C. [Ecotrin] 81 mg PO DAILY 03/23/18 Cyclobenzaprine HCl 10 mg PO TID PRN PRN 03/23/18 Fluticasone 0.05% [Flonase Nasal [place]] 1 spray NASAL DAILY 03/23/18 Furosemide [Lasix] 80 mg PO BID 03/23/18 Gabapentin [Neurontin] 300 mg PO BID 03/23/18 Ketorolac Tromethamine 1 drop LEFT EYE 4X/DAY 03/23/18 Calcitriol [Rocaltrol] 0.5 mcg PO DAILY 04/17/18 Primary Care Physician: Augie Washburn MD [Primary Care Provider] - Please follow up with your Primary Care Physician in: 1-2 weeks Test Results: Test results from this visit will be discussed in further detail at your follow- up appointment, if applicable. Please Follow Up With: Anca Gregorio DO - Dialysis When: Resume prior appointment schedule Proposed Discharge Date: 05/04/18
[2018-05-04 11:24] LABS: HEPATITIS B SURFACE AG Negative (Negative); Hep B Surface Antibodies Non Reactive (.)
[2018-05-04] MEDS: Glucerna Shake 120 ML LIQUID PO (11:51)
[2018-05-04 12:00] LABS: Bedside Glucose 356 mg/dL (70-110)
[2018-05-04] MEDS: Insulin Lispro 100 UNIT/ML INSULN.PEN 10 UNIT SC (12:40)
--- NOTE | 2018-05-04 13:27 | PCM.DC.SUM ---
<Zachariah Meza - Last Filed: 05/04/18 13:27> Discharge Date and Diagnosis Date of Admission: 05/03/18 Date of Discharge: 05/04/18 - Primary Discharge Diagnosis Chest pain 2/2 htn emergency, CHF, hyperkalemia Acute diastolic CHF exacerbation HTN emergency noted by severely uncontrolled BP with CHF exacerbation Chronic hypoxic respiratory failure ESRD with marked hyperkalemia DMt2 with marked hyperglycemia SELMA on Bipap Chronic anemia HLD - Secondary Discharge Diagnosis Chronic Problems (Last Reviewed 05/03/18 @ 03:17 by Eze Rivera MD) Morbid obesity with BMI of 40.0-44.9, adult (Chronic) Pulmonary hypertension (Chronic) Morbid obesity with BMI of 40.0-44.9, adult (Chronic) Diabetes mellitus, type II (Chronic) Renal failure (Chronic) Noncompliance (Chronic) CHF (congestive heart failure) (Chronic) TIA (transient ischemic attack) (Chronic) Chronic respiratory failure with hypoxia (Chronic) HTN (hypertension) (Chronic) Acute on chronic diastolic CHF (congestive heart failure) (Chronic) Hyperlipidemia (Chronic) Diabetic neuropathy (Chronic) Anemia (Chronic) SELMA (obstructive sleep apnea) (Chronic) Hospital Course and Treatment Imaging Results: RAD/Chest 1 View (Portable) IMPRESSION: Compression of parenchyma with low lung volume, possible residual airspace disease in the right base; the asymmetric opacification in the right hemithorax on previous examination has otherwise resolved. No effusion detected compared to previous CT. Mild cardiac enlargement is stable when compared to previous examinations chest, also likely exaggerated by low lung volume and body habitus. RAD/Chest 1 View (Portable) IMPRESSION: Compression of parenchyma with low lung volume, possible residual airspace disease in the right base; the asymmetric opacification in the right hemithorax on previous examination has otherwise resolved. No effusion detected compared to previous CT. Mild cardiac enlargement is stable when compared to previous examinations chest, also likely exaggerated by low lung volume and body habitus. Operations: None Procedures: None Summary of Care Provided: Hospital course: The patient is a 47 year old M with a medical hx of diastolic CHF, ESRD on dialysis per Dr. Gregorio, HTN, SELMA on bipap at home, HLD, TIA, chronic anemia, who presented to the ER with c/o left sided chest pain, nonradiating. He was found to have negative EKG, negative troponin, severely elevated Potassium at 7.3, CXR with CHF, elevated BNP, and severely elevated BP at 204/88. He was admitted to the PCU on tele for CHF exacerbation and hyperkalemia. Dr. Gregorio was consulted for dialysis. He was given calcium gluconate, insulin, albuterol, and kayexalate with little benefit. He was dialyzed per Dr. Gregorio. He had good response with his breathing, renal function, glucose, and electrolytes to dialysis. He had no further chest pain. He was kept overnight for monitoring and had no issues. He felt back to baseline and was at baseline O2 the morning following dialysis. He was discharged home in stable condition and will need to follow up with Dr. Gregorio and dialysis as previously scheduled, and his PCP in 1-2 weeks. This patient was seen by Zachariah Meza PA-C under the supervision of Doctor Mensah. [] - Physical Exam General: Alert, Oriented x3, Cooperative HEENT: Atraumatic, PERRLA, EOMI, Normocephalic Neck: Supple, No JVD, Negative Carotid Bruits Lungs: Diminished Cardiovascular: Regular rate, No murmurs Abdomen: Bowel Sounds Present, Soft, Non Tender, Obese Extremities: Capillary Refill Less than 3 Seconds, Edema Skin: No rashes, No breakdown Musculoskeletal: No Tenderness to Palpation of Joints or Extremities Neurological: Cranial nerves II-XII grossly intact Psych/Mental Status: Normal Affect, Appropriate, Alert and oriented to time, place, person, mood and affect Vital Signs Temp Pulse Resp BP Pulse Ox 97.3 F L 78 18 150/80 H 98 05/04/18 09:00 05/04/18 11:05/04/18 09:00 05/04/18 09:00 05/04/18 09:00 Oxygen Flow Rate (L/min) 2 Oxygen Delivery Method Room Air Weight: 292 lb 12.382 oz Body Mass Index (BMI) 45.8 Finger Stick Blood Glucose 296 Intake and Output for Last 24 Hours 05/02/18 05/03/18 05/04/18 23:59 23:59 23:59 Intake Total 706.9 / 706.9 480 / 480 Output Total 5100 / 5100 950 / 950 Balance -4393.1 / -4393.1 -470 / -470 Laboratory Tests Past 24 Hrs 05/03/18 05/03/18 05/03/18 12:25 16:45 22:48 Sodium Potassium Chloride Carbon Dioxide Anion Gap BUN Creatinine Estim Creat Clear Calc Est GFR (MDRD) Af Amer Est GFR (MDRD) Non-Af BUN/Creatinine Ratio Glucose Calcium Magnesium 1.7 Urine Color Yellow Urine Clarity Sl. Cloudy Urine pH 6.5 Ur Specific [place] 1.015 Urine Protein 500 H Urine Glucose (UA) 100 H Urine Ketones Negative Urine Occult Blood 25 H Urine Nitrite Negative Urine Bilirubin Negative Urine Urobilinogen Normal Ur Leukocyte Esterase 25 H Urine RBC 0-5 SEEN Urine WBC 0-5 SEEN Ur Squamous Epith Cells 0-5 SEEN Amorphous Sediment 1+ URATE Urine Bacteria 0 SEEN Hyaline Casts 0-5 SEEN Fine Granular Casts 0-5 SEEN Urine Mucus 0 SEEN Hep Bs Antigen Negative Hep Bs Antibody Non Reactive 05/04/18 05:15 Sodium 133 L Potassium 4.9 Chloride 95 L Carbon Dioxide 27.0 Anion Gap 11 BUN 45 H Creatinine 5.27 H Estim Creat Clear Calc 15.85 Est GFR (MDRD) Af Amer 15 L Est GFR (MDRD) Non-Af 12 L BUN/Creatinine Ratio 8.5 L Glucose 261 H Calcium 7.0 L Magnesium Urine Color Urine Clarity Urine pH Ur Specific [place] Urine Protein Urine Glucose (UA) Urine Ketones Urine Occult Blood Urine Nitrite Urine Bilirubin Urine Urobilinogen Ur Leukocyte Esterase Urine RBC Urine WBC Ur Squamous Epith Cells Amorphous Sediment Urine Bacteria Hyaline Casts Fine Granular Casts Urine Mucus Hep Bs Antigen Hep Bs Antibody POC Glucose 05/04/18 05/04/18 05/04/18 11:46 09:10 05:45 POC Glucose 356 H 234 H 239 H 05/04/18 05/03/18 05/03/18 02:44 21:45 16:55 POC Glucose 257 H 231 H 151 H 05/03/18 14:24 POC Glucose 79 Discharge Diet: Low fat/ Low Cholesterol, 1800 Calorie Control Diet, 2000 mg Sodium Diet, Renal Diet Discharge Activity: Return to Normal Activity Home Medications: Medications to take at Discharge Atorvastatin Calcium [Lipitor] 20 mg PO QHS 10/11/17 Isosorbide Mononitrate [Imdur] 30 mg PO DAILY 10/11/17 Lisinopril [Zestril] 10 mg PO DAILY 10/11/17 Metoprolol Tartrate [Lopressor (beta khoa)] 50 mg PO BID 10/11/17 Omeprazole 40 mg PO DAILY 10/11/17 Pyridoxine HCl [Vitamin B-6] 100 mg PO DAILY 10/11/17 Sevelamer HCl [Renagel] 800 mg PO TID 10/11/17 Vits A,C,E/Lutein/Minerals [Ocuvite with Lutein Tablet] 1 ea PO DAILY 10/11/17 Folic Acid/Vitamin B Comp W-C [Nephrocaps, Renaphro] 1 cap PO DAILY 10/27/17 Insulin U-500 [Humulin R U-500 (BKC)] 0.18 ml SC DAILY 10/27/17 Insulin U-500 [Humulin R U-500 (BKC)] 0.23 ml SC QHS 10/27/17 FreeStyle Lite Strips See Dose Instructions .ROUTE .MEDSUPPLY #100 ea NS 11/29/17 insulin syringe-needle U-100 1/2 mL 30 gauge x 16 See Dose Instructions .ROUTE .MEDSUPPLY #60 ea 11/29/17 albuterol sulfate HFA 90 mcg/actuation aerosol inhaler 2 puff INHALATION Q4H PRN #18 g 02/26/18 Aspirin E.C. [Ecotrin] 81 mg PO DAILY 03/23/18 Cyclobenzaprine HCl 10 mg PO TID PRN PRN 03/23/18 Fluticasone 0.05% [Flonase Nasal [place]] 1 spray NASAL DAILY 03/23/18 Furosemide [Lasix] 80 mg PO BID 03/23/18 Gabapentin [Neurontin] 300 mg PO BID 03/23/18 Ketorolac Tromethamine 1 drop LEFT EYE 4X/DAY 03/23/18 Calcitriol [Rocaltrol] 0.5 mcg PO DAILY 04/17/18 Primary Care Physician: Augie Washburn MD [Primary Care Provider] - Please follow up with your Primary Care Physician in: 1-2 weeks Please Follow Up With: Anca Gregorio DO When: resume prior appointment schedule Disposition: Halfway facility Minutes spent on discharge:: 35 Patient Condition:: Stable Medical Necessity - Tobacco Use Smoking Status: Never smoker Meaningful Use Info Meaningful Use Diagnoses (Choose all that apply): CHF - CHF ERICKA/ARB ordered at discharge?: Yes Documented LVEF (%): 65 <Isma Mensah - Last Filed: 05/04/18 14:21> Discharge Date and Diagnosis - Secondary Discharge Diagnosis Chronic Problems (Last Reviewed 05/03/18 @ 03:17 by Eze Rivera MD) Morbid obesity with BMI of 40.0-44.9, adult (Chronic) Pulmonary hypertension (Chronic) Morbid obesity with BMI of 40.0-44.9, adult (Chronic) Diabetes mellitus, type II (Chronic) Renal failure (Chronic) Noncompliance (Chronic) CHF (congestive heart failure) (Chronic) TIA (transient ischemic attack) (Chronic) Chronic respiratory failure with hypoxia (Chronic) HTN (hypertension) (Chronic) Acute on chronic diastolic CHF (congestive heart failure) (Chronic) Hyperlipidemia (Chronic) Diabetic neuropathy (Chronic) Anemia (Chronic) SELMA (obstructive sleep apnea) (Chronic) Hospital Course and Treatment Dr. Anca Gregorio DO--Nephrology. Operations: None Procedures: Dialysis Summary of Care Provided: Patient seen and examined independently. Data reviewed. I agree with the above note by the physician power plant assistant. The patient is a 47 year old M presents with chest pain. Additionally, patient also had chest area consistent with CHF. Patient has end-stage renal disease and was due for his dialysis on the first. Patient did undergo dialysis and tolerated well. Patient did have electrolyte derangements in regards to hyperkalemia patient did receive medications which seemed to help that. Patient was monitored overnight and had no further events. In regards to the patient's chest pain, troponin series and EKG were unremarkable. Patient had a normal stress test back in August 2017. With those information, as well no additional cardiac workup is necessary in the right patient remained pain-free. [] - Physical Exam General: Alert, Cooperative HEENT: Atraumatic, Normocephalic Lungs: Diminished, - - coarse BS bilaterally. Cardiovascular: Regular rate, No murmurs Abdomen: Bowel Sounds Present, Soft, Non Tender Vital Signs Temp Pulse Resp BP Pulse Ox 36.3 C L 78 18 150/80 H 98 05/04/18 09:00 05/04/18 11:01 05/04/18 09:00 05/04/18 09:00 05/04/18 09:00 Oxygen Flow Rate (L/min) 2 Oxygen Delivery Method Room Air Weight: 132.8 kg Body Mass Index (BMI) 45.8 Finger Stick Blood Glucose 296 Intake and Output for Last 24 Hours 05/02/18 05/03/18 05/04/18 23:59 23:59 23:59 Intake Total 706.9 / 706.9 480 / 480 Output Total 5100 / 5100 950 / 950 Balance -4393.1 / -4393.1 -470 / -470 Laboratory Tests Past 24 Hrs 05/03/18 05/03/18 05/03/18 12:25 16:45 22:48 Sodium Potassium Chloride Carbon Dioxide Anion Gap BUN Creatinine Estim Creat Clear Calc Est GFR (MDRD) Af Amer Est GFR (MDRD) Non-Af BUN/Creatinine Ratio Glucose Calcium Magnesium 1.7 Urine Color Yellow Urine Clarity Sl. Cloudy Urine pH 6.5 Ur Specific [place] 1.015 Urine Protein 500 H Urine Glucose (UA) 100 H Urine Ketones Negative Urine Occult Blood 25 H Urine Nitrite Negative Urine Bilirubin Negative Urine Urobilinogen Normal Ur Leukocyte Esterase 25 H Urine RBC 0-5 SEEN Urine WBC 0-5 SEEN Ur Squamous Epith Cells 0-5 SEEN Amorphous Sediment 1+ URATE Urine Bacteria 0 SEEN Hyaline Casts 0-5 SEEN Fine Granular Casts 0-5 SEEN Urine Mucus 0 SEEN Hep Bs Antigen Negative Hep Bs Antibody Non Reactive 05/04/18 05:15 Sodium 133 L Potassium 4.9 Chloride 95 L Carbon Dioxide 27.0 Anion Gap 11 BUN 45 H Creatinine 5.27 H Estim Creat Clear Calc 15.85 Est GFR (MDRD) Af Amer 15 L Est GFR (MDRD) Non-Af 12 L BUN/Creatinine Ratio 8.5 L Glucose 261 H Calcium 7.0 L Magnesium Urine Color Urine Clarity Urine pH Ur Specific [place] Urine Protein Urine Glucose (UA) Urine Ketones Urine Occult Blood Urine Nitrite Urine Bilirubin Urine Urobilinogen Ur Leukocyte Esterase Urine RBC Urine WBC Ur Squamous Epith Cells Amorphous Sediment Urine Bacteria Hyaline Casts Fine Granular Casts Urine Mucus Hep Bs Antigen Hep Bs Antibody POC Glucose 05/04/18 05/04/18 05/04/18 11:46 09:10 05:45 POC Glucose 356 H 234 H 239 H 05/04/18 05/03/18 05/03/18 02:44 21:45 16:55 POC Glucose 257 H 231 H 151 H 05/03/18 14:24 POC Glucose 79 Discharge Diet: Low fat/ Low Cholesterol, 1800 Calorie Control Diet, 2000 mg Sodium Diet, Renal Diet Discharge Activity: Return to Normal Activity Disposition: Home Minutes spent on discharge:: 35 Patient Condition:: Stable Meaningful Use Info Meaningful Use Diagnoses (Choose all that apply): CHF - CHF ERICKA/ARB ordered at discharge?: Yes Documented LVEF (%): 65 Code Visit OBSV E&M: 71589 Observation care discharge
--- NOTE | 2018-05-07 13:22 | CASEMGMT ---
RN LIZETTE DC PHONE CALL DISCHARGE DATE: 05/04/18 DISCHARGE DISPOSITION: Home LACE/STRATA: 05/05 Intro role of CM to patient via phone. Explained purpose of call. Pt states no questions re: dc instructions, f/u or medications. Pt is resuming previous dialysis schedule and states he is feeling improved. No suggestions given for care improvement. Toi NORWOODN RN ACM
== END 2018-05-04 13:01 | disposition home or self-care (01) | DRG 291 ==
LOC: ED 23:24 → PCU 05-03 02:22
PROVIDERS: Internal Medicine Nephrology; Physician Assistant; Admitting Provider Hospitalist; Emergency Provider Emergency Medicine; Family Provider Internal Medicine; PCP Internal Medicine
DX: I13.2 Hypertensive heart and chronic kidney disease with heart failure and with stage 5 chronic kidney disease, or end stage renal disease (principal); I50.33 Acute on chronic diastolic (congestive) heart failure; N18.6 End stage renal disease; Z68.42 Body mass index [BMI] 45.0-49.9, adult; I16.1 Hypertensive emergency; J96.11 Chronic respiratory failure with hypoxia; E87.1 Hypo-osmolality and hyponatremia; E87.5 Hyperkalemia; E83.51 Hypocalcemia; E11.22 Type 2 diabetes mellitus with diabetic chronic kidney disease; E11.65 Type 2 diabetes mellitus with hyperglycemia; Z99.2 Dependence on renal dialysis; Z91.14 Patient's other noncompliance with medication regimen; D64.9 Anemia, unspecified; G47.33 Obstructive sleep apnea (adult) (pediatric); E78.5 Hyperlipidemia, unspecified; E66.01 Morbid (severe) obesity due to excess calories; I27.20 Pulmonary hypertension, unspecified; Z79.4 Long term (current) use of insulin; E11.40 Type 2 diabetes mellitus with diabetic neuropathy, unspecified; Z86.73 Personal history of transient ischemic attack (TIA), and cerebral infarction without residual deficits
CPT/HCPCS: 36415; 71045; 80048; 80061; 81001; 82009; 82040; 82330; 82803; 82962; 83735; 83880; 84100; 84484; 85025; 85610; 85730; 86706; 87086; 87340; 90937; 93005; 94002; 94003; 97165; 97802; 99251; 99285; J7040; A4216; G0257; G0463; J0610; J1940

== ENCOUNTER 2018-06-08 15:36 | Emergency (ER) | payer MEDICARE, SELFPAY ==
[2018-05-31 09:51] VITALS: BMI 40.7
[2018-06-08 15:37] VITALS: BP 167/85; PULSE 99; RESP 17; TEMP 36.6; O2SAT 91; BMI 40.3
--- NOTE | 2018-06-08 15:52 | CT_ITS ---
STUDY: CT CERVICAL SPINE WITHOUT CONTRAST REASON FOR EXAM: Male, 47 years old. Pain after fall, headache RADIATION DOSAGE (If Supplied By Facility): CTDIvol = ( 48.71 ) mGy, DLP = ( 1071.32 ) mGycm TECHNIQUE: High resolution transaxial imaging was performed without contrast material. Sagittal and coronal images were reconstructed. Individualized dose optimization techniques were used for this CT. COMPARISON: 03/20/2017 FINDINGS: Normal craniovertebral junction. Normal anterior atlantoaxial articulation. Normal odontoid process. There is straightening of the normal cervical lordosis. Normal vertebral bodies and posterior osseous elements. C2-3: Normal endplates. Normal disc height and morphology. Normal central canal and intervertebral neuroforamina. C3-4: Normal endplates. Normal disc height and morphology. Normal central canal and intervertebral neuroforamina. C4-5: Normal endplates. Normal disc height and morphology. Normal central canal and intervertebral neuroforamina. C5-6: Normal endplates. Normal disc height and morphology. Normal central canal and intervertebral neuroforamina. C6-7: Normal endplates. Normal disc height and morphology. Normal central canal and intervertebral neuroforamina. C7-T1: Normal endplates. Normal disc height and morphology. Normal central canal and intervertebral neuroforamina. Normal visualized soft tissue structures. CT/Spine Cervical without Contras IMPRESSION: Normal unenhanced CT examination of the cervical spine. Electronically Signed: Kayden Smith MD at 16:58 EST , Service support ,
--- NOTE | 2018-06-08 15:52 | RAD_ITS ---
STUDY: X-RAY - THORACIC SPINE REASON FOR EXAM: Male, 47 years old. Mid back pain after a fall TECHNIQUE: 4 view(s) of the thoracic spine were obtained. COMPARISON: None. FINDINGS: Normal kyphosis of the thoracic spine. There is no substantial scoliosis. Normal thoracic vertebrae and endplates. Mild disc space narrowing. The soft tissue structures are unremarkable. RAD/Thoracic Spine 3 Views IMPRESSION: Mild degenerative changes, no acute findings Electronically Signed: Kayden Smith MD at 16:44 EST , Service support ,
--- NOTE | 2018-06-08 15:52 | RAD_ITS ---
STUDY: X-RAY - LUMBAR SPINE REASON FOR EXAM: Male, 47 years old. Back pain after fall TECHNIQUE: 3 view(s) of the lumbar spine were obtained. COMPARISON: None FINDINGS: Normal lumbar lordosis. There is no substantial scoliosis. There is a normal alignment of the vertebrae. Normal vertebral bodies and endplates. Normal disc space heights. The soft tissue structures are unremarkable. RAD/Lumbar Spine 2 or 3 Views IMPRESSION: Normal x-ray examination of the lumbar spine. Electronically Signed: Kayden Smith MD at 16:44 EST , Service support ,
--- NOTE | 2018-06-08 15:52 | CT_ITS ---
STUDY: CT BRAIN WITHOUT CONTRAST REASON FOR EXAM: Male, 47 years old. Headache after fall RADIATION DOSAGE (If Supplied By Facility): CTDIvol = ( 60.81 ) mGy, DLP = ( 1044.28 ) mGycm TECHNIQUE: Transaxial CT imaging of the brain was performed without administration of intravenous contrast material. Individualized dose optimization techniques were used for this CT. COMPARISON: 09/10/2017 FINDINGS: Normal soft tissue structures. Normal calvarium. Normal size ventricles and extra-axial spaces for the patient's age. Normal white matter tracts of the cerebral hemispheres. Normal basal ganglia and thalami. Normal brainstem. Normal cerebellum. There is no intracranial hemorrhage. There are no findings of an acute ischemic infarction. Normal visualized paranasal sinuses. CT/Brain/Head without Contrast IMPRESSION: Normal unenhanced CT scan of the brain. Electronically Signed: Kayden Smith MD at 16:57 EST , Service support ,
--- NOTE | 2018-06-08 16:01 | ED.VISSUMM ---
- ER Visit Summary Date of Service: 06/08/18 Chief Complaint: Fall History of Present Illness: The patient is a 47 M presents after fall. Patient was in the shower. He states he slipped on water and fell out of the shower. He hit his head but did not lose consciousness. He had no symptoms before the fall. He is not on blood thinners. He was able to ambulate. He complains of head, neck and back pain. Denies other complaints. Physical Examination: Vitals are stable. Patient is afebrile. Alert no acute distress. HEENT exam is unremarkable. Neck is mild diffuse tenderness with no step-off Lungs are clear and equal bilaterally. Heart is regular rate and rhythm. Abdomen is soft nontender nondistended. Back: Paraspinal bilateral thoracic muscle tenderness, diffuse lumbar tenderness, no stepoff. Extremities are unremarkable. Skin is warm and dry. No focal neurologic deficit. Normal strength and sensation Remainder of exam is unremarkable. Emergency Department Course and Treatment: CT head and neck show no acute process. X-ray of the lumbar and thoracic spine show no acute process. Patient was given a short course of [place] for pain. He is advised to follow-up with his primary care physician. Advised return to ED if worsening complaints. Disposition: Discharge home Impression: Status post mechanical fall, thoracic and lumbar strain This note was generated with [employer] dictation software. It may contain incorrect words, spelling, and punctuation that were not noted in review of the chart prior to signing ED Disposition - Plan for ED Patient: Chief Complaint: Fall Instructions: ED Mechanical Fall Prescriptions: Hydrocodone Bitart/Apap 5-325 [[place] 5MG-325MG] 1 tablet PO Q6H PRN PRN 3 Days #8 tablet PRN Reason: Pain Referrals: Augie Washburn MD [Primary Care Provider] -
--- NOTE | 2018-06-08 16:06 | ED.DCSUM_ITS ---
- ER Visit Summary Date of Service: 06/08/18 Chief Complaint: Fall History of Present Illness: The patient is a 47 M presents after fall. Patient was in the shower. He states he slipped on water and fell out of the shower. He hit his head but did not lose consciousness. He had no symptoms before the fall. He is not on blood thinners. He was able to ambulate. He complains of head, neck and back pain. Denies other complaints. Physical Examination: Vitals are stable. Patient is afebrile. Alert no acute distress. HEENT exam is unremarkable. Neck is mild diffuse tenderness with no step-off Lungs are clear and equal bilaterally. Heart is regular rate and rhythm. Abdomen is soft nontender nondistended. Back: Paraspinal bilateral thoracic muscle tenderness, diffuse lumbar tenderness, no stepoff. Extremities are unremarkable. Skin is warm and dry. No focal neurologic deficit. Normal strength and sensation Remainder of exam is unremarkable. Emergency Department Course and Treatment: CT head and neck show no acute process. X-ray of the lumbar and thoracic spine show no acute process. Patient was given a short course of [place] for pain. He is advised to follow-up with his primary care physician. Advised return to ED if worsening complaints. Disposition: Discharge home Impression: Status post mechanical fall, thoracic and lumbar strain This note was generated with [employer] dictation software. It may contain incorrect words, spelling, and punctuation that were not noted in review of the chart prior to signing ED Disposition - Plan for ED Patient: Chief Complaint: Fall Instructions: ED Mechanical Fall Prescriptions: Hydrocodone Bitart/Apap 5-325 [[place] 5MG-325MG] 1 tablet PO Q6H PRN PRN 3 Days #8 tablet PRN Reason: Pain Referrals: Augie Washburn MD [Primary Care Provider] -
--- NOTE | 2018-06-08 17:20 | ED.DEP ---
ED Disposition - Plan for ED Patient: Chief Complaint: Fall Instructions: ED Mechanical Fall Prescriptions: Hydrocodone Bitart/Apap 5-325 [[place] 5MG-325MG] 1 tablet PO Q6H PRN PRN 3 Days #8 tablet PRN Reason: Pain Referrals: Augie Washburn MD [Primary Care Provider] -
--- NOTE | 2018-06-08 17:23 | DCINST.ED_ITS ---
ED Disposition - Plan for ED Patient: Chief Complaint: Fall Instructions: ED Mechanical Fall Prescriptions: Hydrocodone Bitart/Apap 5-325 [[place] 5MG-325MG] 1 tablet PO Q6H PRN PRN 3 Days #8 tablet PRN Reason: Pain Referrals: Augie Washburn MD [Primary Care Provider] -
== END 2018-06-08 17:39 | disposition home or self-care (01) ==
LOC: ED 17:35
PROVIDERS: Emergency Provider Emergency Medicine; Family Provider Internal Medicine; PCP Internal Medicine
DX: S39.012A Strain of muscle, fascia and tendon of lower back, initial encounter (principal); W18.2XXA Fall in (into) shower or empty bathtub, initial encounter; Y93.89 Activity, other specified; Y92.89 Other specified places as the place of occurrence of the external cause; S29.012A Strain of muscle and tendon of back wall of thorax, initial encounter; E11.22 Type 2 diabetes mellitus with diabetic chronic kidney disease; I13.2 Hypertensive heart and chronic kidney disease with heart failure and with stage 5 chronic kidney disease, or end stage renal disease; I50.9 Heart failure, unspecified; N18.6 End stage renal disease; Z99.2 Dependence on renal dialysis; G47.33 Obstructive sleep apnea (adult) (pediatric); I27.20 Pulmonary hypertension, unspecified; Z86.73 Personal history of transient ischemic attack (TIA), and cerebral infarction without residual deficits
CPT/HCPCS: 70450; 72072; 72100; 72125; 99282

== ENCOUNTER 2018-07-18 16:00 | Outpatient (RCR) | payer MEDICARE, SELFPAY ==
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
--- NOTE | 2018-08-24 16:06 | HP.PT.NRP ---
HP - Discharge Summary (1) - Patient Information JUSTICE BRUNER Jr. was seen in my office for initial evaluation on 06/27/18. The following Plan of Care was established for this patient: Initial Frequency: 2-3x /Week Initial Duration: 4-6 Weeks - Anticipated Interventions Patient/Client Instruction: Educate patient on: Condition, Plan of Care, Risk Factors, Benefits of Fitness Program For the Purpose of:: To improve self management Therapeutic Exercise to Include: Strength training, Body mechanics, Postural training, Flexibilty training, In an aquatic setting, Active ROM, Dynamic Lumbar Stabilization For the Purpose of:: To decrease pain, To increase ROM, To improve nutrient delivery to tissue, To improve muscle performance and motor function, To increase tolerance to activity/condition/position, To improve ability of physical actions for home/community/work/leisure, To improve gait and locomotor functions This patient was last seen in our office 07/18/18. Pertinent comments regarding their Physical therapy will appear below: This patient has not returned to Physical Therapy and is appropriate to return to MD for further follow-up as needed. At this point I will be discontinuing this patient from physical therapy. I would be happy to see this patient again in the future if found appropriate by the physician. Thank you! Patricia Gonzalez, PT, Cert MDT
== END 2018-07-18 19:00 | disposition home or self-care (01) ==
LOC: PT 16:00
PROVIDERS: Family Provider Internal Medicine; PCP Internal Medicine; Referring Provider Clinical Nurse Specialist; Visit Provider Clinical Nurse Specialist
DX: S29.019D Strain of muscle and tendon of unspecified wall of thorax, subsequent encounter (principal); S39.012D Strain of muscle, fascia and tendon of lower back, subsequent encounter; W19.XXXD Unspecified fall, subsequent encounter
CPT/HCPCS: 97113; 97163; 97530

== ENCOUNTER 2018-08-01 17:11 | Emergency (ER) | payer MEDICARE, SELFPAY ==
[2018-07-16 12:34] VITALS: BMI 48.8
[2018-08-01 17:12] VITALS: BP 218/96; PULSE 90; RESP 18; TEMP 36.6; O2SAT 96; BMI 44.8
--- NOTE | 2018-08-01 17:30 | EKG12_ITS ---
Test Reason : SOB Blood Pressure : / mmHG Vent. Rate : 081 BPM Atrial Rate : 081 BPM P-R Int : 128 ms QRS Dur : 082 ms QT Int : 412 ms P-R-T Axes : 031 017 128 degrees QTc Int : 478 ms Normal sinus rhythm Nonspecific T wave abnormality Prolonged QT Abnormal ECG Confirmed by HOUSTON LOMELI, CANDIE ([id number]), editor city DEREK KEARNS ([id number]) on 08/03/2018 3:13:31 PM Referred By: Confirmed By:CANDIE CONRAD MD
--- NOTE | 2018-08-01 17:31 | RAD_ITS ---
STUDY: X-RAY - ABDOMEN/PELVIS REASON FOR EXAM: Male, 47 years old. Nausea and vomiting TECHNIQUE: 5 AP views COMPARISON: 2016 FINDINGS: Normal visualized lung bases. There is an unremarkable bowel gas pattern. There is no demonstrated free abdominal air. The visualized liver, spleen and kidneys are grossly normal in size and morphology. Normal soft tissue structures. Normal visualized osseous structures. RAD/Abd Inc Decub and/or Erect IMPRESSION: No acute findings Electronically Signed: Kayden Smith MD at 18:24 EST , Service support ,
[2018-08-01 18:02] LABS: Absolute Lymphocyte Count 0.86 X10^3/ul (0.83-4.51); Absolute Neutrophil Count 4.2 X10^3/uL (2.0-7.7); Basophil# 0.04 X10^3/uL; Basophil% 0.7 % (0-1); Eosinophil# 0.22 X10^3/uL; Eosinophils% 3.7 % (0-5); Hematocrit 35.4 % (40-54); Hemoglobin 11.6 g/dl (13.0-16.5); Lymphocyte # 0.86 X10^3/ul (4.0); Lymphocyte % 14.4 % (19-41); Mean Corp Hgb Conc 32.8 g/gl (32-36); Mean Corpuscular Hgb 30.1 pg (27.0-32.0); Mean Corpuscular Volume 91.7 fL (80-94); Mean Platelet Vol. 9.9 fl (6.2-12.0); Monocyte# 0.63 X10^3/uL; Monocyte% 10.5 % (0-10); Neutrophil # 4.22 X10^3/uL (2.7-7.7); Neutrophil % 70.4 % (47-70); POSITIVE COUNT NO; POSITIVE DIFFERENTIAL NO; POSITIVE MORPHOLOGY NO; Platelet Count 191 K/mm3 (150-450); RBC Distribution Width CV 13.7 % (11.6-14.6); RBC Distribution Width SD 45.3 fl (35.1-43.9); Red Blood Count 3.86 M/mm3 (4.6-6.2)
[2018-08-01] MEDS: Ondansetron 4 MG/2 ML Vial IV (18:05)
[2018-08-01 18:16] LABS: Anion Gap 11 (5-15); BUN 44 mg/dL (7-18); BUN/Creat Ratio 6.3 RATIO (10-20); Calcium,Total 7.9 mg/dL (8.5-10.1); Chloride 96 mmol/L (98-107); Creatinine, Serum 7.01 mg/dL (0.70-1.30); EST Glomerular Filtration Rate 9 mL/min (>60); Est Glom Filt Rate - Afr Amer 11 mL/min (>60); Glucose 267 mg/dL (74-106); Potassium 4.8 mmol/L (3.5-5.1); Sodium Level 135 mmol/L (136-145)
[2018-08-01 18:40] VITALS: BP 198/93; PULSE 85; RESP 17; O2SAT 93
--- NOTE | 2018-08-01 18:44 | ED.DCSUM_ITS ---
- ER Visit Summary Date of Service: 08/01/18 Chief Complaint: Nausea vomiting History of Present Illness: The patient is a 47 M presenting for evaluation secondary nausea vomiting. Patient reports that over the course last 2 days he has had nausea vomiting. Initially it started with some diarrhea, but the patient reports that he took some antidiarrheals and it seemed like this improved. Patient states that he has decreased appetite and an inability to sleep. He reports that he is having very frequent bouts of emesis that are nonbloody and nonbilious. He reports been associated with some chills and sweats. Denies any presence of abdominal pain but did state that on Monday he had some chest pain shortness of breath. He is end-stage renal disease on hemodialysis Monday his dry weight is 126 kg. Patient states that his dialysis run was without complication the other day. Review of systems otherwise negative. Physical Examination: Vital signs noted for hypertension 218/96 for which the patient states that he has had a history of this recently due to titration of his blood pressure medications. Obese male no acute distress. Moist mucous membranes, neck supple. Heart regular rate and rhythm. Lung sounds clear. Abdomen soft nontender nondistended normal bowel sounds no palpable masses. Right arm fistula has a palpable thrill 2+ symmetric pulses bilateral upper extremities. Remainder of physical otherwise unremarkable. Test Results: EKG shows sinus rhythm of 81 with prolonged QT, nonspecific T wave changes, no evidence of ST segment changes ischemia or arrhythmia. CBC and chemistry not significantly remarkable except for the patient's chronic renal disease with a creatinine of 7. Troponin found to be negative. Abdominal x-ray shows no evidence of obstruction per radiology. Emergency Department Course and Treatment: Patient presented secondary to nausea and vomiting. Patient does have an underlying history of both diabetes and end- stage renal disease so workup was obtained. Is not found to be ketotic or acidotic. His electrolytes are actually reasonably within normal limits. He was given a 500 cc bolus and Zofran. Patient was p.o. challenged in the emergency department. Repeat evaluation of the patient at 1900 showed the patient to have improvement of his symptoms and passing of a p.o. challenge. Given the fact that the patient's symptoms started with both vomiting and diarrhea, and the fact that his workup is otherwise negative I do believe that this likely is a element of gastroenteritis. Patient will be discharged with a course of Zofran, he was recommended to continue aggressive hydration, and to follow-up with primary care and his dialysis appointments as previously scheduled. Disposition: Discharge Impression: 1. Gastroenteritis 2. End-stage renal disease This note was generated with [employer] dictation software. It may contain incorrect words, spelling, and punctuation that were not noted in review of the chart prior to signing ED Disposition - Plan for ED Patient: Disposition: Home or Assisted Living Diagnosis: Gastroenteritis Instructions: ED Gastroenteritis Viral Prescriptions: Ondansetron [Zofran Odt] 4 mg PO Q8H PRN PRN #10 tab PRN Reason: Nausea Referrals: Augie Washburn MD [Primary Care Provider] - 3-5 Days if not improving
[2018-08-01 19:07] VITALS: BP 180/75; PULSE 80; RESP 18; O2SAT 96
== END 2018-08-01 19:08 | disposition home or self-care (01) ==
PROVIDERS: Emergency Provider Emergency Medicine; Family Provider Internal Medicine; PCP Internal Medicine
DX: K52.9 Noninfective gastroenteritis and colitis, unspecified (principal); I12.0 Hypertensive chronic kidney disease with stage 5 chronic kidney disease or end stage renal disease; E11.22 Type 2 diabetes mellitus with diabetic chronic kidney disease; N18.6 End stage renal disease; E66.9 Obesity, unspecified; Z68.41 Body mass index [BMI] 40.0-44.9, adult; Z99.2 Dependence on renal dialysis; Z79.82 Long term (current) use of aspirin; Z79.4 Long term (current) use of insulin; Z79.899 Other long term (current) drug therapy
CPT/HCPCS: 74019; 80048; 82009; 84484; 85025; 93005; 96361; 96374; 99283; J7040; A4216; J2405

== ENCOUNTER 2018-09-18 06:55 | Inpatient (IN) | payer MEDICARE, SELFPAY ==
[2018-09-18] VITALS (28 sets, daily range): BP systolic 90–222; BP diastolic 55–86; PULSE 74–84; RESP 12–95; TEMP 36.3–36.8; O2SAT 76–158; BMI 39.8; BMI 45.6
--- NOTE | 2018-09-18 07:01 | EKG12_ITS ---
Test Reason : FALL Blood Pressure : / mmHG Vent. Rate : 081 BPM Atrial Rate : 081 BPM P-R Int : 188 ms QRS Dur : 108 ms QT Int : 390 ms P-R-T Axes : 034 009 055 degrees QTc Int : 453 ms Normal sinus rhythm Nonspecific ST abnormality Abnormal ECG Confirmed by HOUSTON LOMELI, CANDIE ([id number]), mapping editor JACKIE OJEDA ([id number]) on 09/19/2018 9:22:37 AM Referred By: JORGE Confirmed By:CANDIE CONRAD MD
--- NOTE | 2018-09-18 07:02 | ED.VIS.GEN ---
History of Present Illness Chief Complaint: Fall Detail of Chief Complaint: Generalized weakness Informant: Patient, Family Onset: Today Context: Sudden Onset Timing: Continuous Quality: Legs gave out walking to restroom Location: Residents Current Severity: - - Unable to quantitate Maximum Severity: - - Unable to quantitate Worsened by: Unknown Relieved by: Nothing Associated Symptoms: Shortness of breath Narrative: Patient is a middle-aged male with multiple medical problems who states he got up to use the restroom. As he was walking to the restroom his legs became numb and buccal. Paramedics were called. He apparently had diarrhea 2-3 nights ago. He denies fever or chills. He denies visual, ocular auditory symptoms. He denies trouble with speech or swallowing. He denies chest pain. He denies vomiting. He denies dysuria, frequency, urgency hematuria. He does admit to increased swelling of his lower legs. He states he wears his CPAP machine at night. He states he has no energy. Prior similar symptoms: No Recent Illness/Hospitalization: No - Past Medical History (1) Acute diastolic (congestive) heart failure Status: Acute (2) Edema Status: Acute (3) Hyperkalemia Status: Acute (4) Anemia Status: Chronic (5) Chronic respiratory failure with hypoxia Status: Chronic (6) Diabetes mellitus, type II Status: Chronic (7) Diabetic neuropathy Status: Chronic (8) HTN (hypertension) Status: Chronic (9) Hyperlipidemia Status: Chronic (10) Morbid obesity with BMI of 40.0-44.9, adult Status: Chronic (11) SELMA (obstructive sleep apnea) Status: Chronic (12) Pulmonary hypertension Status: Chronic (13) Renal failure Status: Chronic (14) TIA (transient ischemic attack) Status: Chronic Past Medical History - Allergies and Home Meds Allergies/Adverse Reactions: Allergies venom-honey bee [bee venom (honey bee)] Allergy (Verified 09/18/18 07:00) Swelling sulfamethoxazole [From Bactrim] Adverse Reaction (Verified 09/18/18 07:00) Upset Stomach trimethoprim [From Bactrim] Adverse Reaction (Verified 09/18/18 07:00) Upset Stomach Primary Care Physician: Augie Washburn MD [Primary Care Provider] - Prior records reviewed: Yes Surgical History: tonsillectomy, - - AV fistula in right arm. Lives: Spouse/ Significant Other Smoking Status: Current some day smoker Alcohol: None - Family History Maternal Family History: Family History (Last Reviewed 07/16/18 @ 12:34 by Claudette Cheek) Mother Hypertension Heart disease Diabetes Father Hypertension Heart disease Brother Heart disease Family History: Reports: Diabetes, Heart Disease, Hypertension, Renal Disease Paternal Family History: Family History (Last Reviewed 07/16/18 @ 12:34 by Claudette Cheek) Mother Hypertension Heart disease Diabetes Father Hypertension Heart disease Brother Heart disease Family History: Reports: Cancer - liver, Diabetes, Heart Disease Review of Systems General: Reports: Malaise. Denies: Chills, Fever, Sweats Eyes: Denies: Visual changes - bilaterally, Blurred Vision - bilaterally, Diplopia ENT: Denies: Bilateral ear pain, Rhinorrhea, Sore throat Cardiovascular: Denies: Chest pain, Palpitations Respiratory: Reports: Dyspnea, Dyspnea on exertion. Denies: Cough Gastrointestinal: Denies: Abdominal pain, Nausea, Vomiting, Diarrhea, Melena, Hematochezia Genitourinary: Denies: Dysuria, Hematuria, Frequency Musculoskeletal: Denies: Myalgias, Back pain, Extremity Pain Skin: Denies: Rash, Wounds Neurological: Denies: Headache, Weakness, Numbness Endocrine: Denies: Polyuria Hematologic: Denies: Easy bruising, Easy bleeding Allergy: Denies: Uticaria Physical Exam Vital Signs/Narrative: Vital Signs Temp Pulse Resp BP Pulse Ox 09/18/18 06:56 98.2 F 84 17 208/86 H 96 General: Well nourished, Well developed, Obese Head: Normocephalic, Atraumatic Eyes: Perrl, EOMI. Negative for: Pale conjunctiva, Scleral icterus ENT: Moist mucous membranes, No rhinorrhea, TM's clear Neck: Supple, Nontender, No lymphadenopathy, No JVD Cardiovascular: Regular rate, Regular rhythm, No murmurs. Negative for: Normal S1, Normal S2 Respiratory: CTA bilaterally, Chest nontender Abdomen: Soft, Nontender, Nondistended, Normal bowel sounds, No masses Back: - - Unable to assess secondary to body habitus and patient unable to roll onto his side Extremities: Nontender, Edema Skin: Normal color, No rash Neurological: Alert - Stage II, Oriented x3, Cranial nerves II-XII grossly intact, - - Patient is unable to lift his right or left lower extremity off the bed. Psychological: Normal affect, Normal Mood Diagnostic/Tx/Re-eval Chest X-Ray - ED: 1 View, Read by ED Physician, Bony Structures, Cardiomegaly, CHF Impressions Chest X-Ray 09/18/18 07:46 IMPRESSION: 1. Patchy airspace disease in the medial right base suggesting atelectasis. Infection not excluded. 2. Borderline cardiac enlargement. No CHF. Electronically Signed: Kayden Ceballos MD at 8:17 EDT , Service support , 09/18/18 07:46 Chest 1 View (Portable) [RAD] Stat 09/18/18 08:29 Chest 1 View (Portable) [RAD] Stat Laboratory Results 09/18/18 09/18/18 09/18/18 07:00 07:15 07:15 WBC 5.9 RBC 3.87 L Hgb 11.4 L Hct 35.8 L MCV 92.5 MCH 29.5 MCHC 31.8 L RDW 13.5 RDW Differential 45.2 H Plt Count 228 MPV 10.5 Immature Gran % (Auto) 1.500 H Neut % (Auto) 68.5 Lymph % (Auto) 15.3 L [place] % (Auto) 10.0 Eos % (Auto) 3.9 Baso % (Auto) 0.8 Absolute Neuts (auto) 4.0 Absolute Lymphs (auto) 0.90 Total Counted Not Reportable Sodium 129 L Potassium 8.1 H* Chloride 93 L Carbon Dioxide 24.0 Anion Gap 12 BUN 67 H Creatinine 8.98 H* Estim Creat Clear Calc 10.80 Est GFR (MDRD) Af Amer 8 L Est GFR (MDRD) Non-Af 7 L BUN/Creatinine Ratio 7.5 L Glucose 710 H* Lactic Acid Calcium 8.1 L Troponin I 0.032 Urine Color Urine Clarity Urine pH Ur Specific [place] Urine Protein Urine Glucose (UA) Urine Ketones Urine Occult Blood Urine Nitrite Urine Bilirubin Urine Urobilinogen Ur Leukocyte Esterase Urine RBC Urine WBC Ur Squamous Epith Cells Urine Bacteria Urine Mucus POC Glucose > 500 H* 09/18/18 09/18/18 07:30 07:40 WBC RBC Hgb Hct MCV MCH MCHC RDW RDW Differential Plt Count MPV Immature Gran % (Auto) Neut % (Auto) Lymph % (Auto) [place] % (Auto) Eos % (Auto) Baso % (Auto) Absolute Neuts (auto) Absolute Lymphs (auto) Total Counted Sodium Potassium Chloride Carbon Dioxide Anion Gap BUN Creatinine Estim Creat Clear Calc Est GFR (MDRD) Af Amer Est GFR (MDRD) Non-Af BUN/Creatinine Ratio Glucose Lactic Acid 1.0 Calcium Troponin I Urine Color Yellow Urine Clarity Sl. Cloudy Urine pH 8.0 Ur Specific [place] 1.015 Urine Protein 500 H Urine Glucose (UA) 1000 H Urine Ketones Negative Urine Occult Blood 50 H Urine Nitrite Negative Urine Bilirubin Negative Urine Urobilinogen Normal Ur Leukocyte Esterase Negative Urine RBC 0-5 SEEN Urine WBC 0-5 SEEN Ur Squamous Epith Cells 0-5 SEEN Urine Bacteria RARE Urine Mucus 0 SEEN POC Glucose Portable chest x-ray after subclavian line reveals proper position and no evidence of pneumothorax or hemothorax. There is no interval change from the initial chest x-ray other than the line. - Rhythm Strip Rhythm Strip: Sinus Rhythm Rate: 85 Ectopy: None - EKG Initial EKG Interpretation: Sinus Rhythm - Ventricular rate is 81. Patient has peaked T waves consistent with hyperkalemia. There is no ossific ST-T wave changes noted as well. [place] interval is normal. Respiration is prolonged at 108 ms. We will need to compare to prior. QT interval is normal. [place] is normal. - Medical Decision Making With history of obstructive sleep apnea generalized weakness decreased alertness a VBG was obtained to assess acid-base status. Since he is diabetic and tachypnic blood sugar was obtained because of concern for hyper glycemia and specifically DKA. Patient is tachycardic on monitor. He does have peaked T waves. Concern for hyper kalemia. EKG was obtained for this reason. Basic metabolic panel was obtained to assess CO2 and anion gap as well as electrolytes. UA was obtained which will assess ketones as well as for evidence infection. Because of his complaint of shortness of breath or chest x-ray was obtained to evaluate for pulmonary etiology. Patient was seen liter of fluid, he was treated with calcium chloride, IV insulin, 1 amp of bicarb for his hyperkalemia with EKG changes. His dining room maid Dr. Gregorio was paged and will make arrangements for dialysis as inpatient. Hospitalist was paged for admission to ICU. - Critical Care Time Critical care time (excluding procedures): 30-74 minutes - Critical care time 33 minutes excluding billable procedure time, Discussing w/Patient &/or Family/Vending Route Driver, Discussing w/Consultants, Arranging Admission or Transfer, Performing Direct Patient Care at Bedside Procedures Procedure(s): Patient was consented for a left subclavian line since he has a fistula right arm. Even with use of ultrasound IJ would be challenging because of body habitus. Based on patient's inability to move and concerns for infection and other complications femoral line was not attempted either. He was explained risk benefits of central line. He was informed possibility of pneumothorax, cannulation of the artery, infection, pain and DVT. He was given an opportunity ask questions. He is only question was help him with the line to be in place. I informed him probably several days. Patient was prepped and dressed following hospital guidelines and sterile procedure. He was prepped for a left subclavian line. The area was anesthetized with 1% lidocaine for local infiltration. The left subclavian vein was cannulated successfully on first attempt. Using [place] technique 7.5 [place] triple-lumen was placed. Blood flow was aspirated from all ports. Patient received a liter of normal saline prior to administration of insulin. Chest x-ray is obtained to confirm placement. Portable chest x-ray reveals proper position of left subclavian line with no evidence of pneumothorax, hemothorax and no interval change from initial chest x-ray. ED Disposition - Plan for ED Patient: Disposition: Acute Care Hospital [facility] Diagnosis: Acute hyperkalemia, Type 1 diabetes mellitus with hyperosmolarity without nonketotic hyperglycemic hyperosmolar coma, Fluid overload, End stage renal disease on dialysis due to type 1 diabetes mellitus, Hypertension complications, Morbid obesity with BMI of 40.0-44.9, adult, SELMA (obstructive sleep apnea), Pulmonary hypertension Referrals: Augie Washburn MD [Primary Care Provider] -
[2018-09-18 07:06] LABS: Bedside Glucose > 500 mg/dL (70-110)
--- NOTE | 2018-09-18 07:06 | ED.DCSUM_ITS ---
History of Present Illness Chief Complaint: Fall Detail of Chief Complaint: Generalized weakness Informant: Patient, Family Onset: Today Context: Sudden Onset Timing: Continuous Quality: Legs gave out walking to restroom Location: Residents Current Severity: - - Unable to quantitate Maximum Severity: - - Unable to quantitate Worsened by: Unknown Relieved by: Nothing Associated Symptoms: Shortness of breath Narrative: Patient is a middle-aged male with multiple medical problems who states he got up to use the restroom. As he was walking to the restroom his legs became numb and buccal. Paramedics were called. He apparently had diarrhea 2-3 nights ago. He denies fever or chills. He denies visual, ocular auditory symptoms. He denies trouble with speech or swallowing. He denies chest pain. He denies vomiting. He denies dysuria, frequency, urgency hematuria. He does admit to increased swelling of his lower legs. He states he wears his CPAP machine at night. He states he has no energy. Prior similar symptoms: No Recent Illness/Hospitalization: No - Past Medical History (1) Acute diastolic (congestive) heart failure Status: Acute (2) Edema Status: Acute (3) Hyperkalemia Status: Acute (4) Anemia Status: Chronic (5) Chronic respiratory failure with hypoxia Status: Chronic (6) Diabetes mellitus, type II Status: Chronic (7) Diabetic neuropathy Status: Chronic (8) HTN (hypertension) Status: Chronic (9) Hyperlipidemia Status: Chronic (10) Morbid obesity with BMI of 40.0-44.9, adult Status: Chronic (11) SELMA (obstructive sleep apnea) Status: Chronic (12) Pulmonary hypertension Status: Chronic (13) Renal failure Status: Chronic (14) TIA (transient ischemic attack) Status: Chronic Past Medical History - Allergies and Home Meds Allergies/Adverse Reactions: Allergies venom-honey bee [bee venom (honey bee)] Allergy (Verified 09/18/18 07:00) Swelling sulfamethoxazole [From Bactrim] Adverse Reaction (Verified 09/18/18 07:00) Upset Stomach trimethoprim [From Bactrim] Adverse Reaction (Verified 09/18/18 07:00) Upset Stomach Primary Care Physician: Augie Washburn MD [Primary Care Provider] - Prior records reviewed: Yes Surgical History: tonsillectomy, - - AV fistula in right arm. Lives: Spouse/ Significant Other Smoking Status: Current some day smoker Alcohol: None - Family History Maternal Family History: Family History (Last Reviewed 07/16/18 @ 12:34 by Claudette Cheek) Mother Hypertension Heart disease Diabetes Father Hypertension Heart disease Brother Heart disease Family History: Reports: Diabetes, Heart Disease, Hypertension, Renal Disease Paternal Family History: Family History (Last Reviewed 07/16/18 @ 12:34 by Claudette Cheek) Mother Hypertension Heart disease Diabetes Father Hypertension Heart disease Brother Heart disease Family History: Reports: Cancer - liver, Diabetes, Heart Disease Review of Systems General: Reports: Malaise. Denies: Chills, Fever, Sweats Eyes: Denies: Visual changes - bilaterally, Blurred Vision - bilaterally, Diplopia ENT: Denies: Bilateral ear pain, Rhinorrhea, Sore throat Cardiovascular: Denies: Chest pain, Palpitations Respiratory: Reports: Dyspnea, Dyspnea on exertion. Denies: Cough Gastrointestinal: Denies: Abdominal pain, Nausea, Vomiting, Diarrhea, Melena, Hematochezia Genitourinary: Denies: Dysuria, Hematuria, Frequency Musculoskeletal: Denies: Myalgias, Back pain, Extremity Pain Skin: Denies: Rash, Wounds Neurological: Denies: Headache, Weakness, Numbness Endocrine: Denies: Polyuria Hematologic: Denies: Easy bruising, Easy bleeding Allergy: Denies: Uticaria Physical Exam Vital Signs/Narrative: Vital Signs Temp Pulse Resp BP Pulse Ox 09/18/18 06:56 98.2 F 84 17 208/86 H 96 General: Well nourished, Well developed, Obese Head: Normocephalic, Atraumatic Eyes: Perrl, EOMI. Negative for: Pale conjunctiva, Scleral icterus ENT: Moist mucous membranes, No rhinorrhea, TM's clear Neck: Supple, Nontender, No lymphadenopathy, No JVD Cardiovascular: Regular rate, Regular rhythm, No murmurs. Negative for: Normal S1, Normal S2 Respiratory: CTA bilaterally, Chest nontender Abdomen: Soft, Nontender, Nondistended, Normal bowel sounds, No masses Back: - - Unable to assess secondary to body habitus and patient unable to roll onto his side Extremities: Nontender, Edema Skin: Normal color, No rash Neurological: Alert - Stage II, Oriented x3, Cranial nerves II-XII grossly intact, - - Patient is unable to lift his right or left lower extremity off the bed. Psychological: Normal affect, Normal Mood Diagnostic/Tx/Re-eval Chest X-Ray - ED: 1 View, Read by ED Physician, Bony Structures, Cardiomegaly, CHF Impressions Chest X-Ray 09/18/18 07:46 IMPRESSION: 1. Patchy airspace disease in the medial right base suggesting atelectasis. Infection not excluded. 2. Borderline cardiac enlargement. No CHF. Electronically Signed: Kayden Ceballos MD at 8:17 EDT , Service support , 09/18/18 07:46 Chest 1 View (Portable) [RAD] Stat 09/18/18 08:29 Chest 1 View (Portable) [RAD] Stat Laboratory Results 09/18/18 09/18/18 09/18/18 07:00 07:15 07:15 WBC 5.9 RBC 3.87 L Hgb 11.4 L Hct 35.8 L MCV 92.5 MCH 29.5 MCHC 31.8 L RDW 13.5 RDW Differential 45.2 H Plt Count 228 MPV 10.5 Immature Gran % (Auto) 1.500 H Neut % (Auto) 68.5 Lymph % (Auto) 15.3 L [place] % (Auto) 10.0 Eos % (Auto) 3.9 Baso % (Auto) 0.8 Absolute Neuts (auto) 4.0 Absolute Lymphs (auto) 0.90 Total Counted Not Reportable Sodium 129 L Potassium 8.1 H* Chloride 93 L Carbon Dioxide 24.0 Anion Gap 12 BUN 67 H Creatinine 8.98 H* Estim Creat Clear Calc 10.80 Est GFR (MDRD) Af Amer 8 L Est GFR (MDRD) Non-Af 7 L BUN/Creatinine Ratio 7.5 L Glucose 710 H* Lactic Acid Calcium 8.1 L Troponin I 0.032 Urine Color Urine Clarity Urine pH Ur Specific [place] Urine Protein Urine Glucose (UA) Urine Ketones Urine Occult Blood Urine Nitrite Urine Bilirubin Urine Urobilinogen Ur Leukocyte Esterase Urine RBC Urine WBC Ur Squamous Epith Cells Urine Bacteria Urine Mucus POC Glucose > 500 H* 09/18/18 09/18/18 07:30 07:40 WBC RBC Hgb Hct MCV MCH MCHC RDW RDW Differential Plt Count MPV Immature Gran % (Auto) Neut % (Auto) Lymph % (Auto) [place] % (Auto) Eos % (Auto) Baso % (Auto) Absolute Neuts (auto) Absolute Lymphs (auto) Total Counted Sodium Potassium Chloride Carbon Dioxide Anion Gap BUN Creatinine Estim Creat Clear Calc Est GFR (MDRD) Af Amer Est GFR (MDRD) Non-Af BUN/Creatinine Ratio Glucose Lactic Acid 1.0 Calcium Troponin I Urine Color Yellow Urine Clarity Sl. Cloudy Urine pH 8.0 Ur Specific [place] 1.015 Urine Protein 500 H Urine Glucose (UA) 1000 H Urine Ketones Negative Urine Occult Blood 50 H Urine Nitrite Negative Urine Bilirubin Negative Urine Urobilinogen Normal Ur Leukocyte Esterase Negative Urine RBC 0-5 SEEN Urine WBC 0-5 SEEN Ur Squamous Epith Cells 0-5 SEEN Urine Bacteria RARE Urine Mucus 0 SEEN POC Glucose Portable chest x-ray after subclavian line reveals proper position and no evidence of pneumothorax or hemothorax. There is no interval change from the initial chest x-ray other than the line. - Rhythm Strip Rhythm Strip: Sinus Rhythm Rate: 85 Ectopy: None - EKG Initial EKG Interpretation: Sinus Rhythm - Ventricular rate is 81. Patient has peaked T waves consistent with hyperkalemia. There is no ossific ST-T wave changes noted as well. MI interval is normal. Respiration is prolonged at 108 ms. We will need to compare to prior. QT interval is normal. [place] is normal. - Medical Decision Making With history of obstructive sleep apnea generalized weakness decreased alertness a VBG was obtained to assess acid-base status. Since he is diabetic and tachypnic blood sugar was obtained because of concern for hyper glycemia and specifically DKA. Patient is tachycardic on monitor. He does have peaked T waves. Concern for hyper kalemia. EKG was obtained for this reason. Basic metabolic panel was obtained to assess CO2 and anion gap as well as electrolytes. UA was obtained which will assess ketones as well as for evidence infection. Because of his complaint of shortness of breath or chest x-ray was obtained to evaluate for pulmonary etiology. Patient was seen liter of fluid, he was treated with calcium chloride, IV insulin, 1 amp of bicarb for his hyperkalemia with EKG changes. His channel cementer Dr. Gregorio was paged and will make arrangements for dialysis as inpati ent. Hospitalist was paged for admission to ICU. - Critical Care Time Critical care time (excluding procedures): 30-74 minutes - Critical care time 33 minutes excluding billable procedure time, Discussing w/Patient &/or Family/Prosthetics Lab Technician, Discussing w/Consultants, Arranging Admission or Transfer, Performing Direct Patient Care at Bedside Procedures Procedure(s): Patient was consented for a left subclavian line since he has a fistula right arm. Even with use of ultrasound IJ would be challenging because of body habitus. Based on patient's inability to move and concerns for infection and other complications femoral line was not attempted either. He was explained risk benefits of central line. He was informed possibility of pneumothorax, cannulation of the artery, infection, pain and DVT. He was given an opportunity ask questions. He is only question was help him with the line to be in place. I informed him probably several days. Patient was prepped and dressed following hospital guidelines and sterile procedure. He was prepped for a left subclavian line. The area was anesthetized with 1% lidocaine for local infiltration. The left subclavian vein was cannulated successfully on first attempt. Using Blair technique 7.5 [place] triple-lumen was placed. Blood flow was aspirated from all ports. Patient received a liter of normal saline prior to administration of insulin. Chest x-ray is obtained to confirm placement. Portable chest x-ray reveals proper position of left subclavian line with no evidence of pneumothorax, hemothorax and no interval change from initial chest x-ray. ED Disposition - Plan for ED Patient: Disposition: Acute Care Hospital [facility] Diagnosis: Acute hyperkalemia, Type 1 diabetes mellitus with hyperosmolarity without nonketotic hyperglycemic hyperosmolar coma, Fluid overload, End stage renal disease on dialysis due to type 1 diabetes mellitus, Hypertension complications, Morbid obesity with BMI of 40.0-44.9, adult, SELMA (obstructive sleep apnea), Pulmonary hypertension Referrals: Augie Washburn MD [Primary Care Provider] -
[2018-09-18 07:32] LABS: Basophil# 0.05 X10^3/uL; Basophil% 0.8 % (0-1); Eosinophil# 0.23 X10^3/uL; Eosinophils% 3.9 % (0-5); Hematocrit 35.8 % (40-54); Hemoglobin 11.4 g/dl (13.0-16.5); Lymphocyte % 15.3 % (19-41); Mean Corp Hgb Conc 31.8 g/gl (32-36); Mean Corpuscular Hgb 29.5 pg (27.0-32.0); Mean Corpuscular Volume 92.5 fL (80-94); Mean Platelet Vol. 10.5 fl (6.2-12.0); Monocyte# 0.59 X10^3/uL; Neutrophil # 4.04 X10^3/uL (2.7-7.7); Neutrophil % 68.5 % (47-70); POSITIVE COUNT NO; POSITIVE DIFFERENTIAL NO; POSITIVE MORPHOLOGY NO; Platelet Count 228 K/mm3 (150-450); RBC Distribution Width CV 13.5 % (11.6-14.6); RBC Distribution Width SD 45.2 fl (35.1-43.9); Red Blood Count 3.87 M/mm3 (4.6-6.2); White Blood Count 5.9 K/mm3 (4.4-11.0)
[2018-09-18 07:43] LABS: Mucous, Urine 0 SEEN /hpf (<or=2+)
[2018-09-18 07:44] LABS: Color, Urine Yellow (Yellow); Glucose, Dipstick 1000 mg/dl (Normal); Ketone-Dipstick Negative (Negative); Leukocyte Esterase-Dipstick Negative /ul (Negative); Nitrite-Dipstick Negative (Negative); Occult Blood-Urine 50 /ul (Negative); Protein-Dipstick 500 mg/dl (Negative); Specific Gravity, Urine 1.015 (1.002-1.030); Urine Bilirubin Dipstick Negative (Negative); Urine Clarity Sl. Cloudy (Clear); Urine Urobilinogen Normal (Normal)
--- NOTE | 2018-09-18 07:46 | RAD_ITS ---
STUDY: X-RAY CHEST REASON FOR EXAM: Male, 48 years old. Dyspnea. History of [place]. TECHNIQUE: Single AP portable upright view of the chest. COMPARISON: Portable AP upright chest x-ray May 02, 2018. FINDINGS: There is persistent ill-defined density consistent with atelectasis in the medial right lung base. Infection not excluded. Left lung is clear and expanded. There is no demonstrated pleural abnormality. There is borderline cardiomegaly. Normal mediastinum and esmer. Normal visualized pulmonary arteries. Normal visualized aortic arch and descending thoracic aorta. Bilaterally visualized thoracic spine. Normal visualized ribs, clavicles, and shoulders. There is no demonstrated abnormality of the visualized soft tissue structures of the upper abdomen. RAD/Chest 1 View (Portable) IMPRESSION: 1. Patchy airspace disease in the medial right base suggesting atelectasis. Infection not excluded. 2. Borderline cardiac enlargement. No CHF. Electronically Signed: Kayden Ceballos MD at 8:17 EDT , Service support ,
[2018-09-18 07:52] LABS: Red Blood Cells-Urine 0-5 SEEN /hpf (0-5); Squamous Epithelial Cells - UA 0-5 SEEN /hpf (0-5)
[2018-09-18 07:53] LABS: Bacteria RARE /hpf (None Seen); White Blood Cells 0-5 SEEN /hpf (0-5)
[2018-09-18 07:55] LABS: Anion Gap 12 (5-15); BUN 67 mg/dL (7-18); BUN/Creat Ratio 7.5 RATIO (10-20); Calcium,Total 8.1 mg/dL (8.5-10.1); Chloride 93 mmol/L (98-107); Creatinine, Serum 8.98 mg/dL (0.70-1.30); EST Glomerular Filtration Rate 7 mL/min (>60); Est Glom Filt Rate - Afr Amer 8 mL/min (>60); Glucose 710 mg/dL (74-106); Potassium 8.1 mmol/L (3.5-5.1); Sodium Level 129 mmol/L (136-145)
[2018-09-18] MEDS: 0.9% Normal Saline 1,000 ML 1000 ML IV (07:55)
--- NOTE | 2018-09-18 07:55 | NURSING ---
critical labs relayed to physician
--- NOTE | 2018-09-18 08:29 | RAD_ITS ---
STUDY: X-RAY CHEST REASON FOR EXAM: Male, 48 years old. Line placement. TECHNIQUE: Single AP portable upright view of the chest. COMPARISON: Portable upright AP chest x-ray 0750 hours. FINDINGS: Small caliber left subclavian central venous catheter has its tip in the medial left brachiocephalic vein. No pneumothorax. There is mild crowding in the medial lung bases. There is no demonstrated pleural abnormality. There is stable borderline cardiomegaly. Normal mediastinum and esmer. Normal visualized pulmonary arteries when allowing for crowding. Normal visualized aortic arch and descending thoracic aorta. Normal visualized thoracic spine. Normal visualized ribs, clavicles, and shoulders. There is no demonstrated abnormality of the visualized soft tissue structures of the upper abdomen. RAD/Chest 1 View (Portable) IMPRESSION: 1. Left central venous catheter tip is in the left brachiocephalic vein. No pneumothorax. 2. Suboptimal inspiratory effort with mild medial basilar crowding. 3. Borderline cardiac enlargement. No overt CHF. Electronically Signed: Kayden Ceballos MD at 10:27 EDT , Service support ,
[2018-09-18] MEDS: Calcium Chloride 1 GM/10 ML Syringe IV (08:47)
[2018-09-18] MEDS: Sodium Bicarbonate 8.4% 50 ML Syringe 50 MEQ IV (08:48)
--- NOTE | 2018-09-18 08:52 | HP.PCM_ITS ---
Problem List (1) Acute hyperglycemia Status: Acute (2) Acute hyperkalemia Status: Acute (3) Type 1 diabetes mellitus with hyperosmolarity without nonketotic hyperglycemic hyperosmolar coma Status: Chronic (4) Fluid overload Status: Acute Qualifiers: Hypervolemia type: unspecified Qualified Code(s): E87.70 - Fluid overload, unspecified (5) End stage renal disease on dialysis due to type 1 diabetes mellitus Status: Chronic (6) Hypertension complications Status: Acute (7) Morbid obesity with BMI of 40.0-44.9, adult Status: Chronic (8) Pulmonary hypertension Status: Chronic History of Present Illness Date of Admission: 09/18/18 Chief Complaint: Shortness of breath The patient is a 48 year old M with PMHx of ESRD secondary to type 1 DM, on hemodialysis Monday, Monday, morbid obesity with BMI 35.6, pulmonary hypertension, on 2 L home oxygen who comes in with generalized weakness, fall and progressive shortness of breath. History was taken from patient and his at the bedside. Patient had his dialysis on Monday with no complaints. He completed his treatment. No recent upper respiratory illness. Started having diarrhea yesterday. No fevers or chills. He was apparently in his usual state of health until this morning when he woke up feeling very weak, his knees buckled and he fell on both knees. Denied any chest pain or dizziness. He felt progressively short of breath. Gained about 5 pounds of weight. The EMS was called. Vitals in the ED showed temp 98.2F, HR 84, BP 208/86, RR 17, SpO2 96% on room air. His admitting blood work showed WBC count of 5.9, hemoglobin 11.4, platelet count 228, sodium was 129, potassium 8.1, chloride 93, bicarbonate 24, BUN 67, creatinine 8.98, glucose was 710, lactic acid is 1.0, troponins was 0.032, urine was slightly cloudy, glucose 1000, ketones negative. EKG shows normal sinus rhythm with peaked T waves. CXR showed medial right base atelectasis. He received IV fluids, IV calcium chloride, IV insulin, 1 amp of bicarbonate. He underwent left subclavian central access placement Past Medical History Past Medical History (Chronic Problems): Chronic Problems (Last Reviewed 07/16/18 @ 12:34 by Claudette Cheek) Type 1 diabetes mellitus with hyperosmolarity without nonketotic hyperglycemic hyperosmolar coma (Chronic) End stage renal disease on dialysis due to type 1 diabetes mellitus (Chronic) Morbid obesity with BMI of 40.0-44.9, adult (Chronic) Pulmonary hypertension (Chronic) Morbid obesity with BMI of 40.0-44.9, adult (Chronic) Diabetes mellitus, type II (Chronic) Renal failure (Chronic) Noncompliance (Chronic) CHF (congestive heart failure) (Chronic) TIA (transient ischemic attack) (Chronic) Chronic respiratory failure with hypoxia (Chronic) HTN (hypertension) (Chronic) Acute on chronic diastolic CHF (congestive heart failure) (Chronic) Hyperlipidemia (Chronic) Diabetic neuropathy (Chronic) Anemia (Chronic) SELMA (obstructive sleep apnea) (Chronic) Medical History: Medical History (Last Reviewed 07/16/18 @ 12:34 by Claudette Cheek) Chronic respiratory failure with hypoxia (Chronic) J96.11 Preop cardiovascular exam (Acute) Acute diastolic (congestive) heart failure (Acute) I50.31 HTN (hypertension) (Chronic) I10 Acute respiratory failure with hypoxia (Acute) J96.01 Acute on chronic diastolic CHF (congestive heart failure) (Chronic) I50.33 Hyperlipidemia (Chronic) E78.5 Diabetic neuropathy (Chronic) E11.40 Anemia (Chronic) D64.9 SELMA (obstructive sleep apnea) (Chronic) G47.33 ESRD (end stage renal disease) on dialysis N18.6, Z99.2 cataract surgery, l eye Chronic respiratory failure J96.10 Dyspnea R06.00 Edema R60.9 Hypotension I95.9 Morbid obesity E66.01 Overweight E66.3 Type 2 diabetes mellitus with other diabetic kidney complication E11.29 dx : age 16 last exacerbation : dka : never hypoglycemic episode : 2012 er visit : 2013 Allergies venom-honey bee [bee venom (honey bee)] Allergy (Verified 09/18/18 07:00) Swelling sulfamethoxazole [From Bactrim] Adverse Reaction (Verified 09/18/18 07:00) Upset Stomach trimethoprim [From Bactrim] Adverse Reaction (Verified 09/18/18 07:00) Upset Stomach Home Medications: Ambulatory Orders Medication Instructions Recorded Atorvastatin Calcium [Lipitor] 20 mg PO QHS 10/11/17 Lisinopril [Zestril] 10 mg PO DAILY 10/11/17 Omeprazole 40 mg PO DAILY 10/11/17 Pyridoxine HCl [Vitamin B-6] 100 mg PO DAILY 10/11/17 Sevelamer HCl [Renagel] 800 mg PO TID 10/11/17 Vits A,C,E/Lutein/Minerals 1 ea PO DAILY 10/11/17 [Ocuvite with Lutein Tablet] Folic Acid/Vitamin B Comp W-C 1 cap PO DAILY 10/27/17 [Nephrocaps, Renaphro] FreeStyle Lite Strips See Dose Instructions .ROUTE 11/29/17 .MEDSUPPLY #100 ea NS albuterol sulfate HFA 90 2 puff INHALATION Q4H PRN #18 g 02/26/18 mcg/actuation aerosol inhaler Aspirin E.C. [Ecotrin] 81 mg PO DAILY 03/23/18 Cyclobenzaprine HCl 10 mg PO TID PRN PRN 03/23/18 Fluticasone 0.05% [Flonase Nasal 1 spray NASAL DAILY 03/23/18 [place]] Furosemide [Lasix] 80 mg PO BID 03/23/18 Gabapentin [Neurontin] 300 mg PO BID 03/23/18 Calcitriol [Rocaltrol] 0.5 mcg PO DAILY 04/17/18 insulin regular human U- See Rx Instructions SC DAILY #20 ml 05/17/18 500concentrate 500 unit/mL subcutaneous soln FreeStyle Venkatesh 14 Day Allamuchy See Dose Instructions .ROUTE 07/04/18 .MEDSUPPLY #1 ea NS isosorbide mononitrate ER 30 mg 30 mg PO DAILY #30 tab 07/24/18 tablet,extended release 24 hr FreeStyle Venkatesh 14 Day Sensor kit See Dose Instructions .ROUTE 08/27/18 .MEDSUPPLY #2 ea NS Surgical History: Surgical History (Last Reviewed 07/16/18 @ 12:34 by Claudette Cheek) S/P tonsillectomy Z90.89 dialysis fistula Rt Arm Surgical History: tonsillectomy, - - AV fistula in right arm. Psychiatric History: No pertinent psych hx Lives: Spouse/ Significant Other Smoking Status: Current some day smoker Tobacco Use: Cigarettes Alcohol: None Drugs: None - *Family History Maternal Family History: Family History (Last Reviewed 07/16/18 @ 12:34 by Claudette Cheek) Mother Hypertension Heart disease Diabetes Father Hypertension Heart disease Brother Heart disease History Items: Diabetes, Heart Disease, Hypertension, Renal Disease Paternal Family History: Family History (Last Reviewed 07/16/18 @ 12:34 by Claudette Cheek) Mother Hypertension Heart disease Diabetes Father Hypertension Heart disease Brother Heart disease History Items: Cancer - liver, Diabetes, Heart Disease Review of Systems Constitutional: Reports: Anorexia, Weakness, Fatigue. Denies: Chills, Fever, Weight Change Eyes: Denies: Blurred vision, Cataracts, Conjunctivae Inflammation, Pain, Redness, Vision Change HEENT: Denies: Difficulty Hearing, Difficulty Swallowing, Head Aches, Hearing Changes, Sinus Congestion, Sinus Drainage Cardiovascular: Denies: Chest Pain, Claudication, Orthopnea, Palpitations Respiratory: Reports: Shortness of breath at rest, Shortness of breath upon exertion. Denies: Cough, Sputum production Gastrointestinal: Reports: Diarrhea, Nausea. Denies: Abdominal Pain, Hematemes is, Vomiting Genitourinary: Denies: Dysuria Musculoskeletal: Denies: Joint Pain, Joint stiffness, Joint swelling, Joint Tenderness Skin: Denies: Rash, Wounds Neurological: Denies: Difficulty swallowing, Focal weakness, Numbness, Tingling Psychiatric: Denies: Anxiety, Depression, Homicidal Ideations, Suicidal Ideations Hematologic/ Lymphatic: Denies: Easy Bruising, Easy Bleeding VTE Information - Inpt Only VTE Present on Admission: No VTE Pharm Prophylaxis ordered?: Yes Patient Problems: Active and Suspected Problems (Last Reviewed 07/16/18 @ 12:34 by Claudette Cheek) Acute hyperkalemia (Acute) Fluid overload (Acute) Hypertension complications (Acute) - Physical Exam General: Alert, Oriented x3, Cooperative, No apparent distress - in mild distress, on 3 L of oxygen HEENT: Atraumatic, PERRLA, EOMI, Normocephalic Oral: Moist Mucosa Neck: Supple Lungs: Clear to auscultation, Normal air movement Cardiovascular: Regular rate, Regular Rhythm, Normal S1, Normal S2, Murmur - 3/6 holosystolic murmur Abdomen: Bowel Sounds Present, Soft, Non Tender, Non-Distended, No Hepato- splenomegaly Extremities: Edema - bipedal edema, +1 Skin: No rashes Musculoskeletal: No Tenderness to Palpation of Joints or Extremities Lymphatic: No Cervical, Supraclavicular, or Inguinal Adenopathy Neurological: Cranial nerves II-XII grossly intact, Neuro grossly intact Psych/Mental Status: Normal Affect, Appropriate Vital Signs Temp Pulse Resp BP Pulse Ox 98.2 F 84 17 208/86 H 96 09/18/18 06:56 09/18/18 06:56 09/18/18 06:56 09/18/18 06:56 09/18/18 06:56 Oxygen Delivery Method Room Air Weight: 133.1 kg Body Mass Index (BMI) 39.8 Finger Stick Blood Glucose 296 Laboratory Tests Past 24 Hrs 09/18/18 09/18/18 09/18/18 07:15 07:15 07:30 WBC 5.9 RBC 3.87 L Hgb 11.4 L Hct 35.8 L MCV 92.5 MCH 29.5 MCHC 31.8 L RDW 13.5 RDW Differential 45.2 H Plt Count 228 MPV 10.5 Immature Gran % (Auto) 1.500 H Neut % (Auto) 68.5 Lymph % (Auto) 15.3 L [place] % (Auto) 10.0 Eos % (Auto) 3.9 Baso % (Auto) 0.8 Absolute Neuts (auto) 4.0 Absolute Lymphs (auto) 0.90 Total Counted Not Reportable Sodium 129 L Potassium 8.1 H* Chloride 93 L Carbon Dioxide 24.0 Anion Gap 12 BUN 67 H Creatinine 8.98 H* Estim Creat Clear Calc 10.80 Est GFR (MDRD) Af Amer 8 L Est GFR (MDRD) Non-Af 7 L BUN/Creatinine Ratio 7.5 L Glucose 710 H* Lactic Acid 1.0 Calcium 8.1 L Troponin I 0.032 Urine Color Urine Clarity Urine pH Ur Specific [place] Urine Protein Urine Glucose (UA) Urine Ketones Urine Occult Blood Urine Nitrite Urine Bilirubin Urine Urobilinogen Ur Leukocyte Esterase Urine RBC Urine WBC Ur Squamous Epith Cells Urine Bacteria Urine Mucus 09/18/18 07:40 WBC RBC Hgb Hct MCV MCH MCHC RDW RDW Differential Plt Count MPV Immature Gran % (Auto) Neut % (Auto) Lymph % (Auto) [place] % (Auto) Eos % (Auto) Baso % (Auto) Absolute Neuts (auto) Absolute Lymphs (auto) Total Counted Sodium Potassium Chloride Carbon Dioxide Anion Gap BUN Creatinine Estim Creat Clear Calc Est GFR (MDRD) Af Amer Est GFR (MDRD) Non-Af BUN/Creatinine Ratio Glucose Lactic Acid Calcium Troponin I Urine Color Yellow Urine Clarity Sl. Cloudy Urine pH 8.0 Ur Specific [place] 1.015 Urine Protein 500 H Urine Glucose (UA) 1000 H Urine Ketones Negative Urine Occult Blood 50 H Urine Nitrite Negative Urine Bilirubin Negative Urine Urobilinogen Normal Ur Leukocyte Esterase Negative Urine RBC 0-5 SEEN Urine WBC 0-5 SEEN Ur Squamous Epith Cells 0-5 SEEN Urine Bacteria RARE Urine Mucus 0 SEEN POC Glucose 09/18/18 07:00 POC Glucose > 500 H* Assessment/Plan All Active Problems (Last Reviewed 07/16/18 @ 12:34 by Claudette Cheek) Hyperkalemia (Acute) Acute hyperglycemia (Acute) Acute hyperkalemia (Acute) Fluid overload (Acute) Hypertension complications (Acute) Shortness of breath (Acute) Left leg cellulitis (Acute) SIRS (systemic inflammatory response syndrome) (Acute) Periapical abscess (Acute) Anasarca (Acute) Edema (Acute) Abnormal stress test (Acute) Muscle cramp, nocturnal (Acute) Chest pain (Acute) Nausea and vomiting (Acute) Fever and chills (Acute) Malaise and fatigue (Acute) Preop cardiovascular exam (Acute) Acute diastolic (congestive) heart failure (Acute) Acute respiratory failure with hypoxia (Acute) 48 year old M with PMHx of ESRD secondary to type 1 DM, on hemodialysis Monday, Monday, morbid obesity with BMI 35.6, pulmonary hypertension, on 2 L home oxygen who comes in with generalized weakness, fall and progressive shortness of breath. 1. Hyperkalemia with EKG changes, admitting potassium of 8.1, in a known ESRD patient on hemodialysis TThS Status post calcium chloride, sodium bicarbonate, insulin drip. Repeat potassium is 7.3 Plan: Admit to ICU, monitoring of vitals, nephrology consulted from the ED, patient will have dialysis today 2. HHS, no DKA present, in a type I diabetic, on insulin, started on insulin drip, will continue per protocol, will switch to home medication when sugars drop less than 250 3. Possible acute on chronic diastolic heart failure, fluid overload likely secondary to dietary indiscretion 2D echo in August 2017 showed EF of 65%, no diastolic dysfunction identified 4. ESRD on hemodialysis, dialysis today 5. Hyponatremia, hypervolemic, secondary to fluid overload state as well as hyperglycemic state 6. Hyperphosphatemia, secondary to ESRD, on phosphate binders, further management by nephrology 7. Anemia of CKD, hemoglobin 7.4, patient is at goal for CKD 10. Debility related to hyperkalemia, acute on chronic diastolic heart failure/fluid overload 11. Obesity, BMI 45.6, diet and exercise is recommended 12. DVT PPx - from tomorrow as patient receive Heparin 8000 units today at dialysis 13. GI PPx- on omeprazole Code Visit Inpatient E&M: 92132 Init Hosp L3
--- NOTE | 2018-09-18 09:19 | NURSING ---
ICU 6 HYPERKALEMIA, HYPERGLYCEMIA PAINTSIL
[2018-09-18 09:56] LABS: Bedside Glucose > 500 mg/dL (70-110)
[2018-09-18 10:25] LABS: Albumin, Serum 2.7 g/dL (3.2-5.0); BUN 66 mg/dL (7-18); BUN/Creat Ratio 7.8 RATIO (10-20); Calcium,Total 8.2 mg/dL (8.5-10.1); Chloride 98 mmol/L (98-107); Creatinine, Serum 8.51 mg/dL (0.70-1.30); EST Glomerular Filtration Rate 7 mL/min (>60); Est Glom Filt Rate - Afr Amer 9 mL/min (>60); Estimated Creatinine Clearance 9.71 ml/min; Glucose 562 mg/dL (74-106); Phosphorus 6.2 mg/dL (2.5-4.9); Potassium 7.3 mmol/L (3.5-5.1); Sodium Level 130 mmol/L (136-145)
[2018-09-18] MEDS: hydrALAZINE 20 MG/ML Vial 10 MG IV (10:25)
--- NOTE | 2018-09-18 10:55 | CON.PCM_ITS ---
Consultation - Renal 09/18/18 PCP/ Referring MD: Requesting physician: Anaya Reyes MD Primary care physician: Augie Washburn MD Reason for Consultation:: ESRD, hyperkalemia - History of Present Illness History of Present Illness: The patient is a 48 year old morbidly obese M with ESRD due to diabetes, HD TTS last treatment Monday, presents to [place] ER with generalized weakness, unable to walk with legs buckling on him while going to the BR last night even with assistance from his significant other. He was not able to push himself up out of bed. He had numbness in his arms and legs. Denied chest pain, nausea, vomiting. Denied shortness of breath. He was found to be hyperkalemic with potassium of 8.1 with ECG changes, BS 710 bicarb 24 in ER. He states his sugar was low at 55 yesterday morning but did not check last night at home. He has a history of poor compliance with medications, diet, with chronic interdialytic high fluid gains of 8-10L requiring IUF intermittently. He is on an insulin drip. Repeat potassium 7.3. He is scheduled for urgent dialysis. BP elevated. He has been hospitalized in the past for elevated potassium. - Allergies Allergies: Allergies venom-honey bee [bee venom (honey bee)] Allergy (Verified 09/18/18 07:00) Swelling sulfamethoxazole [From Bactrim] Adverse Reaction (Verified 09/18/18 07:00) Upset Stomach trimethoprim [From Bactrim] Adverse Reaction (Verified 09/18/18 07:00) Upset Stomach - Current Medications Current Medications: Current Medications Acetaminophen (Tylenol) 650 mg PO Q6H PRN PRN PRN Reason: Mild Pain (1-3)/Temp > 100.7 F Bisacodyl (Dulcolax) 5 mg PO DAILY PRN PRN PRN Reason: Constipation Dextrose (D50w Syringe) 0 gm IV X1 PRN; Protocol PRN Reason: HYPOGLYCEMIA Hydralazine HCl (Apresoline Iv) 10 mg IV Q4H PRN PRN PRN Reason: systolic <180 Last Admin: 09/18/18 10:25 Dose: 10 mg Insulin Human Lispro 100 unit/ (Sodium Chloride) 100 mls @ 6.66 mls/hr IV .Q15H1M RENE; Protocol Magnesium Hydroxide (Milk Of Magnesia) 30 ml PO DAILY PRN PRN PRN Reason: Constipation Psyllium Hydrophilic Mucilloid (Metamucil) 1 packet PO DAILY PRN PRN PRN Reason: CONSTIPATION Sodium Chloride () 5 - 15 ml IV UD PRN PRN Reason: SALINE FLUSH Sodium Chloride () 10 - 40 ml IV UD PRN PRN Reason: MULTILUMEN/HICMAN CATH FLUSH - Past Medical History Past Medical History (Chronic Problems): Chronic Problems (Last Reviewed 07/16/18 @ 12:34 by Claudette Cheek) Morbid obesity with BMI of 40.0-44.9, adult (Chronic) Pulmonary hypertension (Chronic) Morbid obesity with BMI of 40.0-44.9, adult (Chronic) Diabetes mellitus, type II (Chronic) Renal failure (Chronic) Noncompliance (Chronic) CHF (congestive heart failure) (Chronic) TIA (transient ischemic attack) (Chronic) Chronic respiratory failure with hypoxia (Chronic) HTN (hypertension) (Chronic) Acute on chronic diastolic CHF (congestive heart failure) (Chronic) Hyperlipidemia (Chronic) Diabetic neuropathy (Chronic) Anemia (Chronic) SELMA (obstructive sleep apnea) (Chronic) - Past Surgical History Surgical History: tonsillectomy, - - AV fistula in right arm. - Social History Smoking Status: Current some day smoker Alcohol: None - Family History Maternal Family History: Family History (Last Reviewed 07/16/18 @ 12:34 by Claudette Cheek) Mother Hypertension Heart disease Diabetes Father Hypertension Heart disease Brother Heart disease History Items: Diabetes, Heart Disease, Hypertension, Renal Disease Paternal Family History: Family History (Last Reviewed 07/16/18 @ 12:34 by Claudette Cheek) Mother Hypertension Heart disease Diabetes Father Hypertension Heart disease Brother Heart disease History Items: Cancer - liver, Diabetes, Heart Disease Review of Systems Constitutional: Reports: Weakness, Fatigue. Denies: Anorexia, Chills, Fever Eyes: Denies: Vision Change HEENT: Denies: Head Aches Cardiovascular: Denies: Chest Pain Respiratory: Denies: Shortness of Breath Gastrointestinal: Denies: Abdominal Pain, Diarrhea, Nausea, Vomiting Skin: Denies: Rash Neurological: Reports: Numbness - in arms and legs Psychiatric: Denies: Anxiety, Depression Endocrine: Denies: Change in Body Habitus Hematologic/ Lymphatic: Reports: Anemia Patient Problems: Active and Suspected Problems (Last Reviewed 07/16/18 @ 12:34 by Claudette Cheek) Acute hyperkalemia (Acute) Type 1 diabetes mellitus with hyperosmolarity without nonketotic hyperglycemic hyperosmolar coma (Acute) Fluid overload (Acute) End stage renal disease on dialysis due to type 1 diabetes mellitus (Acute) Hypertension complications (Acute) - Physical Exam General: Alert, Oriented x3, Cooperative Neck: Supple, No JVD Lungs: Clear to auscultation Cardiovascular: Regular rate Abdomen: Bowel Sounds Present, Soft, Non Tender, Distended, Obese Extremities: Edema - mild Musculoskeletal: No Muscle Wasting Neurological: - - generalized weakness Psych/Mental Status: Normal Affect, Appropriate, Alert and oriented to time, place, person, mood and affect Vital Signs Temp Pulse Resp BP Pulse Ox 97.3 F L 81 19 H 191/85 H 97 09/18/18 09:52 09/18/18 10:25 09/18/18 09:52 09/18/18 10:25 09/18/18 09:52 Oxygen Flow Rate (L/min) 3 Oxygen Delivery Method Nasal Cannula Weight: 132.1 kg Body Mass Index (BMI) 45.6 Finger Stick Blood Glucose 600 Laboratory Tests Past 24 Hrs 09/18/18 09/18/18 09/18/18 07:15 07:15 07:30 WBC 5.9 RBC 3.87 L Hgb 11.4 L Hct 35.8 L MCV 92.5 MCH 29.5 MCHC 31.8 L RDW 13.5 RDW Differential 45.2 H Plt Count 228 MPV 10.5 Immature Gran % (Auto) 1.500 H Neut % (Auto) 68.5 Lymph % (Auto) 15.3 L [place] % (Auto) 10.0 Eos % (Auto) 3.9 Baso % (Auto) 0.8 Absolute Neuts (auto) 4.0 Absolute Lymphs (auto) 0.90 Total Counted Not Reportable Sodium 129 L Potassium 8.1 H* Chloride 93 L Carbon Dioxide 24.0 Anion Gap 12 BUN 67 H Creatinine 8.98 H* Estim Creat Clear Calc 10.80 Est GFR (MDRD) Af Amer 8 L Est GFR (MDRD) Non-Af 7 L BUN/Creatinine Ratio 7.5 L Glucose 710 H* Lactic Acid 1.0 Calcium 8.1 L Phosphorus Troponin I 0.032 Albumin Urine Color Urine Clarity Urine pH Ur Specific [place] Urine Protein Urine Glucose (UA) Urine Ketones Urine Occult Blood Urine Nitrite Urine Bilirubin Urine Urobilinogen Ur Leukocyte Esterase Urine RBC Urine WBC Ur Squamous Epith Cells Urine Bacteria Urine Mucus 09/18/18 09/18/18 07:40 10:00 WBC RBC Hgb Hct MCV MCH MCHC RDW RDW Differential Plt Count MPV Immature Gran % (Auto) Neut % (Auto) Lymph % (Auto) [place] % (Auto) Eos % (Auto) Baso % (Auto) Absolute Neuts (auto) Absolute Lymphs (auto) Total Counted Sodium 130 L Potassium 7.3 H* Chloride 98 Carbon Dioxide 26.0 Anion Gap BUN 66 H Creatinine 8.51 H* Estim Creat Clear Calc 9.71 Est GFR (MDRD) Af Amer 9 L Est GFR (MDRD) Non-Af 7 L BUN/Creatinine Ratio 7.8 L Glucose 562 H* Lactic Acid Calcium 8.2 L Phosphorus 6.2 H Troponin I Albumin 2.7 L Urine Color Yellow Urine Clarity Sl. Cloudy Urine pH 8.0 Ur Specific [place] 1.015 Urine Protein 500 H Urine Glucose (UA) 1000 H Urine Ketones Negative Urine Occult Blood 50 H Urine Nitrite Negative Urine Bilirubin Negative Urine Urobilinogen Normal Ur Leukocyte Esterase Negative Urine RBC 0-5 SEEN Urine WBC 0-5 SEEN Ur Squamous Epith Cells 0-5 SEEN Urine Bacteria RARE Urine Mucus 0 SEEN POC Glucose 09/18/18 09/18/18 09:53 07:00 POC Glucose > 500 H* > 500 H* Clinical Impression(s) from Imaging Studies Chest X-Ray 09/18/18 07:46 IMPRESSION: 1. Patchy airspace disease in the medial right base suggesting atelectasis. Infection not excluded. 2. Borderline cardiac enlargement. No CHF. Electronically Signed: Kayden Ceballos MD at 8:17 EDT , Service support , ADDENDUM: 09/18/18 1035 Chest X-Ray 09/18/18 08:29 IMPRESSION: 1. Left central venous catheter tip is in the left brachiocephalic vein. No pneumothorax. 2. Suboptimal inspiratory effort with mild medial basilar crowding. 3. Borderline cardiac enlargement. No overt CHF. Electronically Signed: Kayden Ceballos MD at 10:27 EDT , Service support , Assessment/Plan All Active Problems (Last Reviewed 07/16/18 @ 12:34 by Claudette Cheek) Hyperkalemia (Acute) Acute hyperglycemia (Acute) Acute hyperkalemia (Acute) Type 1 diabetes mellitus with hyperosmolarity without nonketotic hyperglycemic hyperosmolar coma (Acute) Fluid overload (Acute) End stage renal disease on dialysis due to type 1 diabetes mellitus (Acute) Hypertension complications (Acute) Shortness of breath (Acute) Left leg cellulitis (Acute) SIRS (systemic inflammatory response syndrome) (Acute) Periapical abscess (Acute) Anasarca (Acute) Edema (Acute) Abnormal stress test (Acute) Muscle cramp, nocturnal (Acute) Chest pain (Acute) Nausea and vomiting (Acute) Fever and chills (Acute) Malaise and fatigue (Acute) Preop cardiovascular exam (Acute) Acute diastolic (congestive) heart failure (Acute) Acute respiratory failure with hypoxia (Acute) 1. ESRD HD TTS. Urgent dialysis today for hyperkalemia 2. Hyperkalemia with EKG changes. Correct with dialysis 3. Hypertension with elevated BP. Hydralazine prn iv. 4. Morbid obesity 5. Volume overload 6. Medical, dietary noncompliance 7. DM type 2 hyperglycemia, insulin insuff. Continue with insulin drip.Urine ketones negative.
[2018-09-18 11:05] LABS: Bedside Glucose 481 mg/dL (70-110)
--- NOTE | 2018-09-18 11:16 | CASEMGMT ---
RN CM Assessment Presentation: ESRD- hemodialysis chronic, Diabetes Type 1, now with gen weakness, unable to ambulate. hx of poor compliance. LABS: K 7.3, Glucose 445, Ca 7.5, Phos 5.5 To ICU: urgent hemodialysis, insulin gtt. Intro role of CM and purpose of RN CM assessment to patient's Charity. Pt is very sleepy, unable to participate fully in assessment. is willing and able to give information. Demographics, PCP and Pharmacy verified. Emotional support given as is anxious re: pt's condition. Reviewed current plan of care and encouraged to ask questions when they arise. PCP: Dr. Washburn Preferred Pharmacy: [facility] Insurance: [email or web address] [facility] Prescription Benefit: yes LNOK: Charity Gregorio Dialysis: [facility] @ 11:10. called to notify of admission. Living Arrangements: Lives in mobile home, 3 steps into home. ambulates in home with walker or cane. Needs assist with showering, dressing. assists and pt has aide services from 1-3:30 MWF (see sydnieow). states pt became very weak last night and she had to assist him. Concerns for his mobility on dc. PT/OT evaluations are ordered. Transportation: Pt uses [facility] transport to dialysis DME: Walker/rollator, cane. Oxygen was through [facility]. Pt is working on changing to [facility]. Has concentrator, portability and Bipap @ night. -Per , pt has blood glucose monitoring equipment. No difficulty getting supplies through [facility]. [facility] CM: Patricia Minor. Called to notify of admission and review services. PH: [phone] FX: Services: Aides through [facility] 2 hours/day, Emergency response button, 7 meals/week. AMIRAH BAUER Called to [place] to notify of admission, message and call back number left. Patient DC goals: Home DC PLAN: Anticipate home on dc. PT/OT evaluations pending. Toi TORRES RN ACM
[2018-09-18 12:01] LABS: Bedside Glucose 330 mg/dL (70-110)
--- NOTE | 2018-09-18 12:16 | PCM.CON.CC ---
Problem List (1) Acute hyperglycemia Status: Acute (2) Acute hyperkalemia Status: Acute (3) Type 1 diabetes mellitus with hyperosmolarity without nonketotic hyperglycemic hyperosmolar coma Status: Acute (4) Fluid overload Status: Acute (5) End stage renal disease on dialysis due to type 1 diabetes mellitus Status: Acute (6) Hypertension complications Status: Acute (7) Morbid obesity with BMI of 40.0-44.9, adult Status: Chronic (8) Pulmonary hypertension Status: Chronic (9) Noncompliance Status: Chronic (10) Anasarca Status: Acute (11) CHF (congestive heart failure) Status: Chronic Qualifiers: Heart failure type: diastolic Heart failure chronicity: chronic Qualified Code(s): I50.32 - Chronic diastolic (congestive) heart failure (12) TIA (transient ischemic attack) Status: Chronic Qualifiers: Transient cerebral ischemia type: unspecified Qualified Code(s): G45.9 - Transient cerebral ischemic attack, unspecified (13) Chronic respiratory failure with hypoxia Status: Chronic (14) Acute diastolic (congestive) heart failure Status: Acute (15) HTN (hypertension) Status: Chronic Qualifiers: Hypertension type: essential hypertension Qualified Code(s): I10 - Essential (primary) hypertension (16) Acute on chronic diastolic CHF (congestive heart failure) Status: Chronic (17) Hyperlipidemia Status: Chronic Qualifiers: Hyperlipidemia type: unspecified Qualified Code(s): E78.5 - Hyperlipidemia, unspecified (18) Diabetic neuropathy Status: Chronic Qualifiers: Diabetes mellitus type: type 2 Diabetes mellitus complication detail: with other neurological complication Qualified Code(s): E11.49 - Type 2 diabetes mellitus with other diabetic neurological complication (19) SELMA (obstructive sleep apnea) Status: Chronic Reason for Consult Date of Consultation: 09/18/18 Reason for Consultation: Symptomatic hyperkalemia History of Present Illness: The patient is a 48 year old M, with past medical history listed below, who presented to [facility] on 09/18/2018 secondary to fall from generalized weakness. Patient reportedly had his legs give out on the way to the bathroom. Patient reportedly was of his usual health and received hemodialysis on Monday without complications. Patient's significant other reports he has had no fever or chills, but has had diarrhea 2-3 nights ago. Patient denied any nausea, vomiting, dysuria or problems swallowing. Patient had noted significant swelling of his lower extremities. Patient significant other does not report any significant dietary indiscretions. In the emergency room, patient was noted to have hyperglycemia, hyperkalemia and EKG changes. Patient was placed on an insulin drip and given medical therapy for hyperkalemia. Patient's sales engineer was paged and arrangements were made for urgent hemodialysis. Patient did have significant issues with access, so a left subclavian central line was placed by the ER physician. Patient was placed on an insulin drip and transferred to the intensive care unit for further monitoring. Patient arrived on the intensive care unit at approximately 10 AM. Patient was shortly thereafter initiated on hemodialysis. Discussion with the hemodialysis nurse shows the patient is presently 5 kg up from his dry weight. Patient significant other denies any dietary indiscretions. Patient is unable to provide much history at this time. Patient reportedly does have obstructive sleep apnea, but BiPAP was not brought with him. Significant other is not aware of his current settings. Patient does have a history of obstructive sleep apnea and has a BiPAP machine at home. Patient reportedly had been compliant with therapy. No recent URI symptoms have been reported by patient significant other. Patient reportedly has supplemental oxygen at home to use as needed and typically will use only 2 L nasal cannula. Patient has been using 3-4 over the last 24 hours secondary to shortness of breath. Review of systems otherwise negative x10 systems as far as can be obtained. Past Medical History Past Medical History (Chronic Problems): Chronic Problems (Last Reviewed 07/16/18 @ 12:34 by Claudette Cheek) Morbid obesity with BMI of 40.0-44.9, adult (Chronic) Pulmonary hypertension (Chronic) Morbid obesity with BMI of 40.0-44.9, adult (Chronic) Diabetes mellitus, type II (Chronic) Renal failure (Chronic) Noncompliance (Chronic) CHF (congestive heart failure) (Chronic) TIA (transient ischemic attack) (Chronic) Chronic respiratory failure with hypoxia (Chronic) HTN (hypertension) (Chronic) Acute on chronic diastolic CHF (congestive heart failure) (Chronic) Hyperlipidemia (Chronic) Diabetic neuropathy (Chronic) Anemia (Chronic) SELMA (obstructive sleep apnea) (Chronic) Medical History: Medical History (Last Reviewed 07/16/18 @ 12:34 by Claudette Cheek) Chronic respiratory failure with hypoxia (Chronic) J96.11 Preop cardiovascular exam (Acute) Acute diastolic (congestive) heart failure (Acute) I50.31 HTN (hypertension) (Chronic) I10 Acute respiratory failure with hypoxia (Acute) J96.01 Acute on chronic diastolic CHF (congestive heart failure) (Chronic) I50.33 Hyperlipidemia (Chronic) E78.5 Diabetic neuropathy (Chronic) E11.40 Anemia (Chronic) D64.9 SELMA (obstructive sleep apnea) (Chronic) G47.33 ESRD (end stage renal disease) on dialysis N18.6, Z99.2 cataract surgery, l eye Chronic respiratory failure J96.10 Dyspnea R06.00 Edema R60.9 Hypotension I95.9 Morbid obesity E66.01 Overweight E66.3 Type 2 diabetes mellitus with other diabetic kidney complication E11.29 dx : age 16 last exacerbation : dka : never hypoglycemic episode : 2012 er visit : 2013 Allergies venom-honey bee [bee venom (honey bee)] Allergy (Verified 09/18/18 07:00) Swelling sulfamethoxazole [From Bactrim] Adverse Reaction (Verified 09/18/18 07:00) Upset Stomach trimethoprim [From Bactrim] Adverse Reaction (Verified 09/18/18 07:00) Upset Stomach Home Medications: Ambulatory Orders Medication Instructions Recorded Atorvastatin Calcium [Lipitor] 20 mg PO QHS 10/11/17 Lisinopril [Zestril] 10 mg PO DAILY 10/11/17 Omeprazole 40 mg PO DAILY 10/11/17 Pyridoxine HCl [Vitamin B-6] 100 mg PO DAILY 10/11/17 Sevelamer HCl [Renagel] 800 mg PO TID 10/11/17 Vits A,C,E/Lutein/Minerals 1 ea PO DAILY 10/11/17 [Ocuvite with Lutein Tablet] Folic Acid/Vitamin B Comp W-C 1 cap PO DAILY 10/27/17 [Nephrocaps, Renaphro] FreeStyle Lite Strips See Dose Instructions .ROUTE 11/29/17 .MEDSUPPLY #100 ea NS albuterol sulfate HFA 90 2 puff INHALATION Q4H PRN #18 g 02/26/18 mcg/actuation aerosol inhaler Aspirin E.C. [Ecotrin] 81 mg PO DAILY 03/23/18 Cyclobenzaprine HCl 10 mg PO TID PRN PRN 03/23/18 Fluticasone 0.05% [Flonase Nasal 1 spray NASAL DAILY 03/23/18 [place]] Furosemide [Lasix] 80 mg PO BID 03/23/18 Gabapentin [Neurontin] 300 mg PO BID 03/23/18 Calcitriol [Rocaltrol] 0.5 mcg PO DAILY 04/17/18 insulin regular human U- See Rx Instructions SC DAILY #20 ml 05/17/18 500concentrate 500 unit/mL subcutaneous soln FreeStyle Venkatesh 14 Day [place] See Dose Instructions .ROUTE 07/04/18 .MEDSUPPLY #1 ea NS isosorbide mononitrate ER 30 mg 30 mg PO DAILY #30 tab 07/24/18 tablet,extended release 24 hr FreeStyle Venkatesh 14 Day Sensor kit See Dose Instructions .ROUTE 08/27/18 .MEDSUPPLY #2 ea NS Surgical History: Surgical History (Last Reviewed 07/16/18 @ 12:34 by Claudette Cheek) S/P tonsillectomy Z90.89 dialysis fistula Rt Arm Surgical History: tonsillectomy, - - AV fistula in right arm. Lives: Spouse/ Significant Other Smoking Status: Current some day smoker Alcohol: None - *Family History Maternal Family History: Family History (Last Reviewed 07/16/18 @ 12:34 by Claudette Cheek) Mother Hypertension Heart disease Diabetes Father Hypertension Heart disease Brother Heart disease History Items: Diabetes, Heart Disease, Hypertension, Renal Disease Paternal Family History: Family History (Last Reviewed 07/16/18 @ 12:34 by Claudette Cheek) Mother Hypertension Heart disease Diabetes Father Hypertension Heart disease Brother Heart disease History Items: Cancer - liver, Diabetes, Heart Disease Review of Systems Comment: See HPI Patient Problems: Active and Suspected Problems (Last Reviewed 07/16/18 @ 12:34 by Claudette Cheek) Acute hyperkalemia (Acute) Type 1 diabetes mellitus with hyperosmolarity without nonketotic hyperglycemic hyperosmolar coma (Acute) Fluid overload (Acute) End stage renal disease on dialysis due to type 1 diabetes mellitus (Acute) Hypertension complications (Acute) Objective: Chest x-ray was personally reviewed and shows appropriate placement of a left subclavian central line with no pneumothorax. There is cardiac enlargement with slight cephalization noted. - Physical Exam General: - - RASS -1. Morbidly obese. Not readily answering questions at this time. HEENT: Atraumatic, PERRLA, EOMI, Normocephalic, - - Slight scleral injection without icterus Oral: Moist Mucosa, No Gingival or Mucosal Lesions/ Ulcerations, - - Crowded posterior pharynx. Mallampati 4. Neck: Supple, No JVD, No Nodes, Trachea Midline Lungs: No rhonchi, No wheeze, No rales, Diminished, - - Symmetric expansion. No dullness to percussion. Cardiovascular: Regular rate, Regular Rhythm, Normal S1, Normal S2, No murmurs, No rub noted, No Gallop Abdomen: Bowel Sounds Present, Soft, Non Tender, Non-Distended, Obese Extremities: No clubbing, No cyanosis, Capillary Refill Less than 3 Seconds, Edema Skin: - - Hemodialysis line and central line appear to be clean, dry and intact. Venous stasis changes of the lower extremities noted. Musculoskeletal: No Tenderness to Palpation of Joints or Extremities Lymphatic: No Cervical, Supraclavicular, or Inguinal Adenopathy Neurological: Cranial nerves II-XII grossly intact, Neuro grossly intact, Motor Exam 5/5 strength throughout Psych/Mental Status: Appropriate, Flat Affect Vital Signs Temp Pulse Resp BP Pulse Ox 36.8 C 79 16 90/55 L 96 09/18/18 12:00 09/18/18 12:11 09/18/18 12:00 09/18/18 12:00 09/18/18 12:00 Oxygen Flow Rate (L/min) 3 Oxygen Delivery Method Nasal Cannula Weight: 132.1 kg Body Mass Index (BMI) 45.6 Finger Stick Blood Glucose 330 Intake and Output for Last 24 Hours 09/16/18 09/17/18 09/18/18 23:59 23:59 23:59 Intake Total 7.1 / 7.1 Output Total 0 / 0 Balance 7.1 / 7.1 Laboratory Tests Past 24 Hrs 09/18/18 09/18/18 09/18/18 07:15 07:15 07:30 WBC 5.9 RBC 3.87 L Hgb 11.4 L Hct 35.8 L MCV 92.5 MCH 29.5 MCHC 31.8 L RDW 13.5 RDW Differential 45.2 H Plt Count 228 MPV 10.5 Immature Gran % (Auto) 1.500 H Neut % (Auto) 68.5 Lymph % (Auto) 15.3 L [place] % (Auto) 10.0 Eos % (Auto) 3.9 Baso % (Auto) 0.8 Absolute Neuts (auto) 4.0 Absolute Lymphs (auto) 0.90 Total Counted Not Reportable Sodium 129 L Potassium 8.1 H* Chloride 93 L Carbon Dioxide 24.0 Anion Gap 12 BUN 67 H Creatinine 8.98 H* Estim Creat Clear Calc 10.80 Est GFR (MDRD) Af Amer 8 L Est GFR (MDRD) Non-Af 7 L BUN/Creatinine Ratio 7.5 L Glucose 710 H* Lactic Acid 1.0 Calcium 8.1 L Phosphorus Troponin I 0.032 Albumin Urine Color Urine Clarity Urine pH Ur Specific Etoile Urine Protein Urine Glucose (UA) Urine Ketones Urine Occult Blood Urine Nitrite Urine Bilirubin Urine Urobilinogen Ur Leukocyte Esterase Urine RBC Urine WBC Ur Squamous Epith Cells Urine Bacteria Urine Mucus 09/18/18 09/18/18 07:40 10:00 WBC RBC Hgb Hct MCV MCH MCHC RDW RDW Differential Plt Count MPV Immature Gran % (Auto) Neut % (Auto) Lymph % (Auto) [place] % (Auto) Eos % (Auto) Baso % (Auto) Absolute Neuts (auto) Absolute Lymphs (auto) Total Counted Sodium 130 L Potassium 7.3 H* Chloride 98 Carbon Dioxide 26.0 Anion Gap BUN 66 H Creatinine 8.51 H* Estim Creat Clear Calc 9.71 Est GFR (MDRD) Af Amer 9 L Est GFR (MDRD) Non-Af 7 L BUN/Creatinine Ratio 7.8 L Glucose 562 H* Lactic Acid Calcium 8.2 L Phosphorus 6.2 H Troponin I Albumin 2.7 L Urine Color Yellow Urine Clarity Sl. Cloudy Urine pH 8.0 Ur Specific [place] 1.015 Urine Protein 500 H Urine Glucose (UA) 1000 H Urine Ketones Negative Urine Occult Blood 50 H Urine Nitrite Negative Urine Bilirubin Negative Urine Urobilinogen Normal Ur Leukocyte Esterase Negative Urine RBC 0-5 SEEN Urine WBC 0-5 SEEN Ur Squamous Epith Cells 0-5 SEEN Urine Bacteria RARE Urine Mucus 0 SEEN POC Glucose 09/18/18 09/18/18 09/18/18 11:58 10:58 09:53 POC Glucose 330 H 481 H* > 500 H* 09/18/18 07:00 POC Glucose > 500 H* Clinical Impression(s) from Imaging Studies Chest X-Ray 09/18/18 07:46 IMPRESSION: 1. Patchy airspace disease in the medial right base suggesting atelectasis. Infection not excluded. 2. Borderline cardiac enlargement. No CHF. Electronically Signed: Kayden Ceballos MD at 8:17 EDT , Service support , ADDENDUM: 09/18/18 1035 Chest X-Ray 09/18/18 08:29 IMPRESSION: 1. Left central venous catheter tip is in the left brachiocephalic vein. No pneumothorax. 2. Suboptimal inspiratory effort with mild medial basilar crowding. 3. Borderline cardiac enlargement. No overt CHF. Electronically Signed: Kayden Ceballos MD at 10:27 EDT , Service support , Assessment/Plan Active and Suspected Problems (Last Reviewed 07/16/18 @ 12:34 by Claudette Cheek) Acute hyperkalemia (Acute) Type 1 diabetes mellitus with hyperosmolarity without nonketotic hyperglycemic hyperosmolar coma (Acute) Fluid overload (Acute) End stage renal disease on dialysis due to type 1 diabetes mellitus (Acute) Hypertension complications (Acute) RECOMMENDATIONS: 1. Hemodialysis per nephrology 2. Wean oxygen as tolerated 3. Hold on empiric antibiotics for now 4. Likely able to discontinue insulin drip following hemodialysis 5. Reinitiate phosphate binders with p.o. diet 6. Reassess status following urgent hemodialysis IMPRESSIONS: 1. Hyperkalemia with EKG changes secondary to probable dietary indiscretion Patient did receive medical therapy in the emergency room. Patient is currently undergoing hemodialysis, which should be definitive. Patient is unclear of the etiology, but does have 5 kg up from his dry weight. Clinical suspicion for dietary indiscretion leading to elevated potassium levels. We will continue to monitor using telemetry. 2. Acute hypoxic respiratory insufficiency secondary to acute on chronic diastolic congestive heart failure Patient is significantly up from his dry weight. Patient was not significantly tachycardic on presentation, but is 5 kg up from his baseline weight. Patient is getting volume removal by hemodialysis. We will continue to monitor oxygen saturations and wean oxygen as tolerated. Low clinical suspicion for acute infectious process at this time. 3. Hyperosmolar non-ketosis/insulin-dependent diabetes mellitus Patient was significantly elevated glucose levels in the ER. Patient was initiated on an insulin drip, but removal with hemodialysis is likely. We will continue with insulin drip for now, but this can likely be discontinued following hemodialysis. 4. End-stage renal disease on hemodialysis Dr. Gregorio has been consulted. Defer dialysis orders to her. Clinical suspicion for noncompliance with dietary restrictions leading to current complications. 5. Hypertension/SELMA/type II pulmonary hypertension/history of noncompliance/morbid obesity Complicates care, management, recovery and prognosis. Okay to bring in patient's home BiPAP to facilitate sleep. Okay to initiate baseline medications from my perspective. Code Visit Inpatient E&M: 26701 Init Hosp L3
--- NOTE | 2018-09-18 13:08 | CHAPLAIN ---
Type of Pastoral Visit _x__ Initial Visit ___ Follow-up Visit ___ On-call Visit ___ General Patient Visit ___ Spiritual Assessment ___ Family Conference ___ Bereavement ___ Rapid Response ___ Code Blue ___ Other (describe below) Pastoral Care Referral From _x__ Patient _x__ Family ___ Nurse ___ Physician ___ Nylon Winder ___ Radio Recorder ___ Other (describe below) Sacrament/Intervention ___ Active listening ___ Anointing ___ Episcopalian ___ Bereavement ___ Communion ___ Patricia exploration ___ ___ Life review _x__ Prayer ___ Reconciliation ___ Sacrament of Sick _x__ Supportive presence ___ Wedding ___ Other (describe below) Pastoral Comments patient is having dialysis and is not alert; talked with family member at bedside; family suggested prayer was best offer of support; prayer and presence given
[2018-09-18 13:11] LABS: Bedside Glucose 235 mg/dL (70-110)
[2018-09-18 14:15] LABS: Bedside Glucose 191 mg/dL (70-110)
[2018-09-18 14:44] LABS: Anion Gap 7 (5-15); BUN 24 mg/dL (7-18); BUN/Creat Ratio 6.1 RATIO (10-20); Calcium,Total 7.8 mg/dL (8.5-10.1); Chloride 99 mmol/L (98-107); Creatinine, Serum 3.92 mg/dL (0.70-1.30); EST Glomerular Filtration Rate 17 mL/min (>60); Est Glom Filt Rate - Afr Amer 21 mL/min (>60); Estimated Creatinine Clearance 21.08 ml/min; Glucose 211 mg/dL (74-106); Potassium 4.1 mmol/L (3.5-5.1); Sodium Level 136 mmol/L (136-145)
--- NOTE | 2018-09-18 15:38 | DIALYSIS ---
Hemodialysis x 4.25hrs complete. 3600ml removed. Pt stable post tx.
[2018-09-18 16:16] LABS: Bedside Glucose 203 mg/dL (70-110)
[2018-09-18] MEDS: Heparin 10,000 UNITS/10 ML Vial 8000 UNITS IV (16:39)
[2018-09-18] MEDS: Insulin Lispro 100 UNIT/ML INSULN.PEN SQ ×2 (16:40→21:27)
[2018-09-18] MEDS: Furosemide 80 MG Tablet PO (16:56)
[2018-09-18 18:41] LABS: Anion Gap 6 (5-15); BUN 23 mg/dL (7-18); Calcium,Total 7.5 mg/dL (8.5-10.1); Chloride 99 mmol/L (98-107); Creatinine, Serum 4.64 mg/dL (0.70-1.30); EST Glomerular Filtration Rate 14 mL/min (>60); Est Glom Filt Rate - Afr Amer 17 mL/min (>60); Estimated Creatinine Clearance 17.81 ml/min; Glucose 224 mg/dL (74-106); Potassium 4.8 mmol/L (3.5-5.1); Sodium Level 135 mmol/L (136-145)
[2018-09-18] MEDS: Atorvastatin Calcium 20 MG Tablet PO (21:27)
[2018-09-18] MEDS: Gabapentin 300 MG Capsule PO (21:27)
[2018-09-18] MEDS: Acetaminophen 325 MG Tablet 650 MG PO (21:27)
[2018-09-18 21:35] LABS: Bedside Glucose 156 mg/dL (70-110)
[2018-09-19] VITALS (14 sets, daily range): BP systolic 135–168; BP diastolic 9–94; PULSE 71–81; RESP 12–20; TEMP 36.6–36.8; O2SAT 96–98
[2018-09-19 04:33] LABS: Absolute Lymphocyte Count 1.45 X10^3/ul (0.83-4.51); Absolute Neutrophil Count 4.1 X10^3/uL (2.0-7.7); Basophil# 0.06 X10^3/uL; Basophil% 0.9 % (0-1); Eosinophil# 0.33 X10^3/uL; Hematocrit 34.5 % (40-54); Lymphocyte # 1.45 X10^3/ul (4.0); Lymphocyte % 21.9 % (19-41); Mean Corp Hgb Conc 31.9 g/gl (32-36); Mean Corpuscular Hgb 29.7 pg (27.0-32.0); Mean Corpuscular Volume 93.2 fL (80-94); Mean Platelet Vol. 9.1 fl (6.2-12.0); Monocyte# 0.62 X10^3/uL; Monocyte% 9.4 % (0-10); Neutrophil # 4.08 X10^3/uL (2.7-7.7); Neutrophil % 61.6 % (47-70); Platelet Count 196 K/mm3 (150-450); RBC Distribution Width CV 13.8 % (11.6-14.6); RBC Distribution Width SD 46.5 fl (35.1-43.9); White Blood Count 6.6 K/mm3 (4.4-11.0)
[2018-09-19 04:35] LABS: POSITIVE COUNT NO; POSITIVE DIFFERENTIAL NO; POSITIVE MORPHOLOGY NO
[2018-09-19 04:45] LABS: Anion Gap 7 (5-15); BUN 28 mg/dL (7-18); Calcium,Total 7.6 mg/dL (8.5-10.1); Chloride 101 mmol/L (98-107); Creatinine, Serum 5.57 mg/dL (0.70-1.30); EST Glomerular Filtration Rate 12 mL/min (>60); Est Glom Filt Rate - Afr Amer 14 mL/min (>60); Estimated Creatinine Clearance 14.83 ml/min; Glucose 66 mg/dL (74-106); Potassium 4.9 mmol/L (3.5-5.1); Sodium Level 139 mmol/L (136-145)
--- NOTE | 2018-09-19 05:15 | NURSING ---
BMP glucose resulted at 66, orange juice given, will re-check finger stick glucose at 0530.
[2018-09-19 05:40] LABS: Bedside Glucose 97 mg/dL (70-110)
--- NOTE | 2018-09-19 06:50 | PN_ITS ---
Subjective: Patient did well overnight. Patient responding appropriately. Patient did have some hypoglycemia this morning, but responded to orange juice. Patient did have hemodialysis urgently yesterday with removal of 3.6 L. Patient reports that his hemodialysis was cut short on Monday secondary to hypotension. Patient denies any dietary indiscretions over the weekend. Patient did not wear BiPAP overnight for sleep apnea. General: Alert, Oriented x3, Cooperative, No apparent distress, - - Morbidly obese. Speaking in full sentences. HEENT: Atraumatic, PERRLA, EOMI, Normocephalic, - - No scleral icterus or injection noted. Oral: Moist Mucosa, No Gingival or Mucosal Lesions/ Ulcerations Neck: Supple, No JVD, No Nodes, Trachea Midline, - - JVD difficult to assess secondary to body habitus Lungs: No rhonchi, No wheeze, No rales, Diminished Cardiovascular: Regular rate, Regular Rhythm, Normal S1, Normal S2, No murmurs, No rub noted, No Gallop Abdomen: Bowel Sounds Present, Soft, Non Tender, Non-Distended, Obese Extremities: No clubbing, No cyanosis, Edema Skin: - - No significant change compared to previous. Musculoskeletal: No Tenderness to Palpation of Joints or Extremities Lymphatic: No Cervical, Supraclavicular, or Inguinal Adenopathy Neurological: Cranial nerves II-XII grossly intact, Neuro grossly intact, Motor Exam 5/5 strength throughout Psych/Mental Status: Alert and oriented to time, place, person, mood and affect Vital Signs Temp Pulse Resp BP Pulse Ox 36.7 C 72 13 168/70 H 97 09/19/18 06:00 09/19/18 06:00 09/19/18 06:00 09/19/18 06:00 09/19/18 06:00 Oxygen Flow Rate (L/min) 2 Oxygen Delivery Method Nasal Cannula Weight: 132.2 kg Body Mass Index (BMI) 45.6 Finger Stick Blood Glucose 191 Intake and Output for Last 24 Hours 09/17/18 09/18/18 09/19/18 23:59 23:59 23:59 Intake Total 477.1 / 477.1 160 / 160 Output Total 4100 / 4100 100 / 100 Balance -3622.9 / -3622.9 60 / 60 Labs (Last 48 Hours) 09/18/18 09/18/18 09/18/18 07:00 07:15 07:15 WBC 5.9 RBC 3.87 L Hgb 11.4 L Hct 35.8 L MCV 92.5 MCH 29.5 MCHC 31.8 L RDW 13.5 RDW Differential 45.2 H Plt Count 228 MPV 10.5 Immature Gran % (Auto) 1.500 H Neut % (Auto) 68.5 Lymph % (Auto) 15.3 L [place] % (Auto) 10.0 Eos % (Auto) 3.9 Baso % (Auto) 0.8 Absolute Neuts (auto) 4.0 Absolute Lymphs (auto) 0.90 Total Counted Not Reportable Sodium 129 L Potassium 8.1 H* Chloride 93 L Carbon Dioxide 24.0 Anion Gap 12 BUN 67 H Creatinine 8.98 H* Estim Creat Clear Calc 10.80 Est GFR (MDRD) Af Amer 8 L Est GFR (MDRD) Non-Af 7 L BUN/Creatinine Ratio 7.5 L Glucose 710 H* Lactic Acid Calcium 8.1 L Phosphorus Troponin I 0.032 Albumin Urine Color Urine Clarity Urine pH Ur Specific [place] Urine Protein Urine Glucose (UA) Urine Ketones Urine Occult Blood Urine Nitrite Urine Bilirubin Urine Urobilinogen Ur Leukocyte Esterase Urine RBC Urine WBC Ur Squamous Epith Cells Urine Bacteria Urine Mucus POC Glucose > 500 H* 09/18/18 09/18/18 09/18/18 07:30 07:40 09:53 WBC RBC Hgb Hct MCV MCH MCHC RDW RDW Differential Plt Count MPV Immature Gran % (Auto) Neut % (Auto) Lymph % (Auto) [place] % (Auto) Eos % (Auto) Baso % (Auto) Absolute Neuts (auto) Absolute Lymphs (auto) Total Counted Sodium Potassium Chloride Carbon Dioxide Anion Gap BUN Creatinine Estim Creat Clear Calc Est GFR (MDRD) Af Amer Est GFR (MDRD) Non-Af BUN/Creatinine Ratio Glucose Lactic Acid 1.0 Calcium Phosphorus Troponin I Albumin Urine Color Yellow Urine Clarity Sl. Cloudy Urine pH 8.0 Ur Specific [place] 1.015 Urine Protein 500 H Urine Glucose (UA) 1000 H Urine Ketones Negative Urine Occult Blood 50 H Urine Nitrite Negative Urine Bilirubin Negative Urine Urobilinogen Normal Ur Leukocyte Esterase Negative Urine RBC 0-5 SEEN Urine WBC 0-5 SEEN Ur Squamous Epith Cells 0-5 SEEN Urine Bacteria RARE Urine Mucus 0 SEEN POC Glucose > 500 H* 09/18/18 09/18/18 09/18/18 10:00 10:58 11:58 WBC RBC Hgb Hct MCV MCH MCHC RDW RDW Differential Plt Count MPV Immature Gran % (Auto) Neut % (Auto) Lymph % (Auto) [place] % (Auto) Eos % (Auto) Baso % (Auto) Absolute Neuts (auto) Absolute Lymphs (auto) Total Counted Sodium 130 L Potassium 7.3 H* Chloride 98 Carbon Dioxide 26.0 Anion Gap BUN 66 H Creatinine 8.51 H* Estim Creat Clear Calc 9.71 Est GFR (MDRD) Af Amer 9 L Est GFR (MDRD) Non-Af 7 L BUN/Creatinine Ratio 7.8 L Glucose 562 H* Lactic Acid Calcium 8.2 L Phosphorus 6.2 H Troponin I Albumin 2.7 L Urine Color Urine Clarity Urine pH Ur Specific [place] Urine Protein Urine Glucose (UA) Urine Ketones Urine Occult Blood Urine Nitrite Urine Bilirubin Urine Urobilinogen Ur Leukocyte Esterase Urine RBC Urine WBC Ur Squamous Epith Cells Urine Bacteria Urine Mucus POC Glucose 481 H* 330 H 09/18/18 09/18/18 09/18/18 13:04 14:11 14:20 WBC RBC Hgb Hct MCV MCH MCHC RDW RDW Differential Plt Count MPV Immature Gran % (Auto) Neut % (Auto) Lymph % (Auto) [place] % (Auto) Eos % (Auto) Baso % (Auto) Absolute Neuts (auto) Absolute Lymphs (auto) Total Counted Sodium 136 Potassium 4.1 Chloride 99 Carbon Dioxide 30.0 Anion Gap 7 BUN 24 H Creatinine 3.92 H Estim Creat Clear Calc 21.08 Est GFR (MDRD) Af Amer 21 L Est GFR (MDRD) Non-Af 17 L BUN/Creatinine Ratio 6.1 L Glucose 211 H Lactic Acid Calcium 7.8 L Phosphorus Troponin I Albumin Urine Color Urine Clarity Urine pH Ur Specific [place] Urine Protein Urine Glucose (UA) Urine Ketones Urine Occult Blood Urine Nitrite Urine Bilirubin Urine Urobilinogen Ur Leukocyte Esterase Urine RBC Urine WBC Ur Squamous Epith Cells Urine Bacteria Urine Mucus POC Glucose 235 H 191 H 09/18/18 09/18/18 09/18/18 16:09 18:20 21:23 WBC RBC Hgb Hct MCV MCH MCHC RDW RDW Differential Plt Count MPV Immature Gran % (Auto) Neut % (Auto) Lymph % (Auto) [place] % (Auto) Eos % (Auto) Baso % (Auto) Absolute Neuts (auto) Absolute Lymphs (auto) Total Counted Sodium 135 L Potassium 4.8 Chloride 99 Carbon Dioxide 30.0 Anion Gap 6 BUN 23 H Creatinine 4.64 H Estim Creat Clear Calc 17.81 Est GFR (MDRD) Af Amer 17 L Est GFR (MDRD) Non-Af 14 L BUN/Creatinine Ratio 5.0 L Glucose 224 H Lactic Acid Calcium 7.5 L Phosphorus Troponin I Albumin Urine Color Urine Clarity Urine pH Ur Specific [place] Urine Protein Urine Glucose (UA) Urine Ketones Urine Occult Blood Urine Nitrite Urine Bilirubin Urine Urobilinogen Ur Leukocyte Esterase Urine RBC Urine WBC Ur Squamous Epith Cells Urine Bacteria Urine Mucus POC Glucose 203 H 156 H 09/19/18 09/19/18 09/19/18 04:25 04:25 05:34 WBC 6.6 RBC 3.70 L Hgb 11.0 L Hct 34.5 L MCV 93.2 MCH 29.7 MCHC 31.9 L RDW 13.8 RDW Differential 46.5 H Plt Count 196 MPV 9.1 Immature Gran % (Auto) 1.200 H Neut % (Auto) 61.6 Lymph % (Auto) 21.9 [place] % (Auto) 9.4 Eos % (Auto) 5.0 Baso % (Auto) 0.9 Absolute Neuts (auto) 4.1 Absolute Lymphs (auto) 1.45 Total Counted Not Reportable Sodium 139 Potassium 4.9 Chloride 101 Carbon Dioxide 31.0 Anion Gap 7 BUN 28 H Creatinine 5.57 H Estim Creat Clear Calc 14.83 Est GFR (MDRD) Af Amer 14 L Est GFR (MDRD) Non-Af 12 L BUN/Creatinine Ratio 5.0 L Glucose 66 L Lactic Acid Calcium 7.6 L Phosphorus Troponin I Albumin Urine Color Urine Clarity Urine pH Ur Specific [place] Urine Protein Urine Glucose (UA) Urine Ketones Urine Occult Blood Urine Nitrite Urine Bilirubin Urine Urobilinogen Ur Leukocyte Esterase Urine RBC Urine WBC Ur Squamous Epith Cells Urine Bacteria Urine Mucus POC Glucose 97 Clinical Impression(s) from Imaging Studies Chest X-Ray 09/18/18 07:46 IMPRESSION: 1. Patchy airspace disease in the medial right base suggesting atelectasis. Infection not excluded. 2. Borderline cardiac enlargement. No CHF. Electronically Signed: Kayden Ceballos MD at 8:17 EDT , Service support , ADDENDUM: 09/18/18 1035 Chest X-Ray 09/18/18 08:29 IMPRESSION: 1. Left central venous catheter tip is in the left brachiocephalic vein. No pneumothorax. 2. Suboptimal inspiratory effort with mild medial basilar crowding. 3. Borderline cardiac enlargement. No overt CHF. Electronically Signed: Kayden Ceballos MD at 10:27 EDT , Service support , Medical Necessity - Tobacco Use Smoking Status: Current some day smoker Tobacco Use: Cigarettes Assessment/Plan All Active Problems (Last Reviewed 07/16/18 @ 12:34 by Claudette Cheek) Hyperkalemia (Acute) Acute hyperglycemia (Acute) Acute hyperkalemia (Acute) Fluid overload (Acute) Hypertension complications (Acute) Shortness of breath (Acute) Left leg cellulitis (Acute) SIRS (systemic inflammatory response syndrome) (Acute) Periapical abscess (Acute) Anasarca (Acute) Edema (Acute) Abnormal stress test (Acute) Muscle cramp, nocturnal (Acute) Chest pain (Acute) Nausea and vomiting (Acute) Fever and chills (Acute) Malaise and fatigue (Acute) Preop cardiovascular exam (Acute) Acute diastolic (congestive) heart failure (Acute) Acute respiratory failure with hypoxia (Acute) RECOMMENDATIONS: 1. Hemodialysis per nephrology 2. Wean oxygen as tolerated 3. Hold on empiric antibiotics for now 4. Resume baseline diabetic therapy 5. Reinitiate phosphate binders with p.o. diet 6. Okay to leave the intensive care unit from my perspective IMPRESSIONS: 1. Hyperkalemia with EKG changes secondary to probable dietary indiscretion Patient with normalization of potassium following hemodialysis. Patient did have 3.6 L removed yesterday with significant improvement in hyperglycemia, volume overload and hyperkalemia. Would defer to nephrology on whether dialysis would be indicated for today. 2. Acute hypoxic respiratory insufficiency secondary to acute on chronic diastolic congestive heart failure Patient is significantly up from his dry weight. Patient was not significantly tachycardic on presentation, but is 5 kg up from his baseline we ight. Patient appears to have normalized at this time with volume removal. Patient does not have any fever or leukocytosis overnight. Do not believe antibiotics would be indicated at this time. 3. Hyperosmolar non-ketosis/insulin-dependent diabetes mellitus Patient was significantly elevated glucose levels in the ER. Patient was initiated on an insulin drip, but removal with hemodialysis is likely. Patient can be placed on baseline insulin therapy. 4. End-stage renal disease on hemodialysis Dr. Gregorio has been consulted. Defer dialysis orders to her. Clinical suspicion for noncompliance with dietary restrictions leading to current complications. 5. Hypertension/SELMA/type II pulmonary hypertension/history of n oncompliance/morbid obesity Complicates care, management, recovery and prognosis. Okay to bring in patient's home BiPAP to facilitate sleep. Okay to initiate baseline medications from my perspective. Code Visit Inpatient E&M: 53770 Subs Hosp L2
[2018-09-19 06:56] LABS: Bedside Glucose 84 mg/dL (70-110)
[2018-09-19] MEDS: SEVELAMER CARBONATE 800 MG TABLET PO (07:39)
[2018-09-19] MEDS: Aspirin E.C. 81 MG Tablet PO (07:39)
[2018-09-19 07:56] LABS: Bedside Glucose 109 mg/dL (70-110)
--- NOTE | 2018-09-19 08:46 | PN.RENAL_ITS ---
Patient Problems: Active and Suspected Problems (Last Reviewed 07/16/18 @ 12:34 by Claudette Cheek) Acute hyperkalemia (Acute) Fluid overload (Acute) Hypertension complications (Acute) Subjective: potassium and BP stable. Complains of weakness. - Physical Exam General: Alert, Oriented x3, Cooperative, No apparent distress Lungs: Clear to auscultation Cardiovascular: Regular rate Abdomen: Soft, Obese Extremities: No edema Psych/Mental Status: Alert and oriented to time, place, person, mood and affect Vital Signs Temp Pulse Resp BP Pulse Ox 97.8 F 77 12 152/84 H 96 09/19/18 08:00 09/19/18 08:00 09/19/18 08:00 09/19/18 08:00 09/19/18 08:00 Oxygen Flow Rate (L/min) 2 Oxygen Delivery Method Room Air Weight: 132.2 kg Body Mass Index (BMI) 45.6 Finger Stick Blood Glucose 191 Intake and Output for Last 24 Hours 09/17/18 09/18/18 09/19/18 23:59 23:59 23:59 Intake Total 477.1 / 477.1 160 / 160 Output Total 4100 / 4100 100 / 100 Balance -3622.9 / -3622.9 60 / 60 Laboratory Tests Past 24 Hrs 09/18/18 09/18/18 09/18/18 10:00 14:20 18:20 WBC RBC Hgb Hct MCV MCH MCHC RDW RDW Differential Plt Count MPV Immature Gran % (Auto) Neut % (Auto) Lymph % (Auto) [place] % (Auto) Eos % (Auto) Baso % (Auto) Absolute Neuts (auto) Absolute Lymphs (auto) Total Counted Sodium 130 L 136 135 L Potassium 7.3 H* 4.1 4.8 Chloride 98 99 99 Carbon Dioxide 26.0 30.0 30.0 Anion Gap 7 6 BUN 66 H 24 H 23 H Creatinine 8.51 H* 3.92 H 4.64 H Estim Creat Clear Calc 9.71 21.08 17.81 Est GFR (MDRD) Af Amer 9 L 21 L 17 L Est GFR (MDRD) Non-Af 7 L 17 L 14 L BUN/Creatinine Ratio 7.8 L 6.1 L 5.0 L Glucose 562 H* 211 H 224 H Calcium 8.2 L 7.8 L 7.5 L Phosphorus 6.2 H Albumin 2.7 L 09/19/18 09/19/18 04:25 04:25 WBC 6.6 RBC 3.70 L Hgb 11.0 L Hct 34.5 L MCV 93.2 MCH 29.7 MCHC 31.9 L RDW 13.8 RDW Differential 46.5 H Plt Count 196 MPV 9.1 Immature Gran % (Auto) 1.200 H Neut % (Auto) 61.6 Lymph % (Auto) 21.9 [place] % (Auto) 9.4 Eos % (Auto) 5.0 Baso % (Auto) 0.9 Absolute Neuts (auto) 4.1 Absolute Lymphs (auto) 1.45 Total Counted Not Reportable Sodium 139 Potassium 4.9 Chloride 101 Carbon Dioxide 31.0 Anion Gap 7 BUN 28 H Creatinine 5.57 H Estim Creat Clear Calc 14.83 Est GFR (MDRD) Af Amer 14 L Est GFR (MDRD) Non-Af 12 L BUN/Creatinine Ratio 5.0 L Glucose 66 L Calcium 7.6 L Phosphorus Albumin POC Glucose 09/19/18 09/19/18 09/19/18 07:34 06:53 05:34 POC Glucose 109 84 97 09/18/18 09/18/18 09/18/18 21:23 16:09 14:11 POC Glucose 156 H 203 H 191 H 09/18/18 09/18/18 09/18/18 13:04 11:58 10:58 POC Glucose 235 H 330 H 481 H* 09/18/18 09:53 POC Glucose > 500 H* Medical Necessity - Tobacco Use Smoking Status: Current some day smoker Tobacco Use: Cigarettes Assessment/Plan All Active Problems (Last Reviewed 07/16/18 @ 12:34 by Claudette Cheek) Hyperkalemia (Acute) Acute hyperglycemia (Acute) Acute hyperkalemia (Acute) Fluid overload (Acute) Hypertension complications (Acute) Shortness of breath (Acute) Left leg cellulitis (Acute) SIRS (systemic inflammatory response syndrome) (Acute) Periapical abscess (Acute) Anasarca (Acute) Edema (Acute) Abnormal stress test (Acute) Muscle cramp, nocturnal (Acute) Chest pain (Acute) Nausea and vomiting (Acute) Fever and chills (Acute) Malaise and fatigue (Acute) Preop cardiovascular exam (Acute) Acute diastolic (congestive) heart failure (Acute) Acute respiratory failure with hypoxia (Acute) 1. ESRD HD TTS. 2. Hyperkalemia with EKG changes resolved 3. Hypertension stable. 4. Morbid obesity 5. Volume overload, oxygenation stable 6. Medical, dietary noncompliance 7. DM type 2 hyperglycemia, noncompliance. Sugars stable DW hospitalist
--- NOTE | 2018-09-19 08:55 | DCINST_ITS ---
- Discharge Diagnoses Current Active Problems: Current Active and Chronic Problems (Last Reviewed 07/16/18 @ 12:34 by Claudette Cheek) Acute hyperkalemia (Acute) Type 1 diabetes mellitus with hyperosmolarity without nonketotic hyperglycemic hyperosmolar coma (Chronic) Fluid overload (Acute) End stage renal disease on dialysis due to type 1 diabetes mellitus (Chronic) Hypertension complications (Acute) Pulmonary hypertension (Chronic) Morbid obesity with BMI of 40.0-44.9, adult (Chronic) SELMA (obstructive sleep apnea) (Chronic) Reason(s) for Visit for Discharge Instructions: Generalised weakness, shortness of breath You will use the following diet at home:: Calorie/Carbohydrate Controlled (specify 1200, 1400, etc), Cardiac, Renal (restricted protein/sodium) Your food should be the consistency of: Regular Your liquids should be the consistency of: Regular/Thin Discharge Activity: Return to Normal Activity Additional Instructions: Continue with your insulin U-500 0.18mls in am and 0. 22mls in the evening. You are encouraged to stick to a low calorie renal diet. Continue to follow with dialysis as scheduled. You should see an rate engineer within 1-2 weeks. Watch your fluid intake and restrict your fluid intake to less than 1500mls a day. Allergies/Adverse Reactions: Allergies venom-honey bee [bee venom (honey bee)] Allergy (Verified 09/18/18 07:00) Swelling sulfamethoxazole [From Bactrim] Adverse Reaction (Verified 09/18/18 07:00) Upset Stomach trimethoprim [From Bactrim] Adverse Reaction (Verified 09/18/18 07:00) Upset Stomach Medications to take at Discharge RX: Atorvastatin Calcium [Lipitor] 20 mg PO QHS 10/11/17 RX: Lisinopril [Zestril] 10 mg PO DAILY 10/11/17 RX: Omeprazole 40 mg PO DAILY 10/11/17 RX: Pyridoxine HCl [Vitamin B-6] 100 mg PO DAILY 10/11/17 RX: Sevelamer HCl [Renagel] 800 mg PO TID 10/11/17 RX: Vits A,C,E/Lutein/Minerals [Ocuvite with Lutein Tablet] 1 ea PO DAILY 10/11/17 RX: Folic Acid/Vitamin B Comp W-C [Nephrocaps, Renaphro] 1 cap PO DAILY 10/27/17 FreeStyle Lite Strips See Dose Instructions .ROUTE .MEDSUPPLY #100 ea NS 11/29/17 albuterol sulfate HFA 90 mcg/actuation aerosol inhaler 2 puff INHALATION Q4H PRN #18 g 02/26/18 RX: Aspirin E.C. [Ecotrin] 81 mg PO DAILY 03/23/18 RX: Cyclobenzaprine HCl 10 mg PO TID PRN PRN 03/23/18 RX: Fluticasone 0.05% [Flonase Nasal [place]] 1 spray NASAL DAILY 03/23/18 RX: Furosemide [Lasix] 80 mg PO BID 03/23/18 RX: Gabapentin [Neurontin] 300 mg PO BID 03/23/18 RX: Calcitriol [Rocaltrol] 0.5 mcg PO DAILY 04/17/18 insulin regular human U- 500concentrate 500 unit/mL subcutaneous soln See Rx Instructions [place] DAILY #20 ml 05/17/18 FreeStyle Venkatesh 14 Day [place] See Dose Instructions .ROUTE .MEDSUPPLY #1 ea NS 07/04/18 isosorbide mononitrate ER 30 mg tablet,extended release 24 hr 30 mg PO DAILY #30 tab 07/24/18 FreeStyle Venkatesh 14 Day Sensor kit See Dose Instructions .ROUTE .MEDSUPPLY #2 ea NS 08/27/18 RX: Acetaminophen [Tylenol Tablet] 650 mg PO Q6H PRN PRN tablet 09/19/18 Primary Care Physician: Augie Washburn MD [Primary Care Provider] - Please follow up with your Primary Care Physician in: within 1-2 weeks Test Results: Test results from this visit will be discussed in further detail at your follow- up appointment, if applicable. Please Follow Up With: Anca Gregorio DO When: as scheduled Proposed Discharge Date: 09/19/18
--- NOTE | 2018-09-19 09:14 | DS.PCM_ITS ---
Discharge Date and Diagnosis Date of Admission: 09/18/18 Date of Discharge: 09/19/18 - Primary Discharge Diagnosis Active and Suspected Problems (Last Reviewed 07/16/18 @ 12:34 by Claudette Cheek) Acute hyperkalemia (Acute) Fluid overload (Acute) Hypertension complications (Acute) Acute on chronic diastolic CHF HHS Poorly controlled type I DM - Secondary Discharge Diagnosis Chronic Problems (Last Reviewed 07/16/18 @ 12:34 by Claudette Cheek) Type 1 diabetes mellitus with hyperosmolarity without nonketotic hyperglycemic hyperosmolar coma (Chronic) End stage renal disease on dialysis due to type 1 diabetes mellitus (Chronic) Morbid obesity with BMI of 40.0-44.9, adult (Chronic) Pulmonary hypertension (Chronic) Morbid obesity with BMI of 40.0-44.9, adult (Chronic) Diabetes mellitus, type II (Chronic) Renal failure (Chronic) Noncompliance (Chronic) CHF (congestive heart failure) (Chronic) TIA (transient ischemic attack) (Chronic) Chronic respiratory failure with hypoxia (Chronic) HTN (hypertension) (Chronic) Acute on chronic diastolic CHF (congestive heart failure) (Chronic) Hyperlipidemia (Chronic) Diabetic neuropathy (Chronic) Anemia (Chronic) SELMA (obstructive sleep apnea) (Chronic) Hospital Course and Treatment Imaging Results: Clinical Impression(s) from Imaging Studies Chest X-Ray 09/18/18 07:46 IMPRESSION: 1. Patchy airspace disease in the medial right base suggesting atelectasis. Infection not excluded. 2. Borderline cardiac enlargement. No CHF. Electronically Signed: Kayden Ceballos MD at 8:17 EDT , Service support , ADDENDUM: 09/18/18 1035 Chest X-Ray 09/18/18 08:29 IMPRESSION: 1. Left central venous catheter tip is in the left brachiocephalic vein. No pneumothorax. 2. Suboptimal inspiratory effort with mild medial basilar crowding. 3. Borderline cardiac enlargement. No overt CHF. Electronically Signed: Kayden Ceballos MD at 10:27 EDT , Service support , Nephrology Critical care Operations: None Procedures: None Summary of Care Provided: 48 year old M with PMHx of ESRD secondary to type 1 DM, on hemodialysis Monday, Monday, morbid obesity with BMI 35.6, pulmonary hypertension, on 2 L home oxygen as needed comes in with generalized weakness, fall and progressive shortness of breath. Patient had fallen down on his knees; unable to bear his weight. EMS was called. In the ED, he was found to have potassium of 8.1 with peaked T-waves. His blood sugar was >700 without any ketones. He received IV calcium chloride, sodium bicarbonate, started on insulin drip. He was admitted to the ICU, managed on insulin drip per protocol, started also on dialysis. His elevated potassium was resolved. Patient was also started on his home insulin regimen. A total of 3.6 L of fluid weight was removed. The next morning patient was off oxygen, blood sugars were better. Discussed with nephrology, patient was discharged to follow-up with dialysis the next day. He was educated on fluid restriction, adherence to his low-carb diet, and follow-up with endocrinology in the [facility] as scheduled. Subjective: Day of discharge, patient was up and sitting in the chair. He had his breakfast. Denied any new complaints. Blood sugars controlled. He had dialysis yesterday and 3.6 L of fluid was taken out. Objective: Physical Exam General: Alert, Oriented x3, Cooperative, No apparent distress, off oxygen, on room air HEENT: Atraumatic, PERRLA, EOMI, Normocephalic Oral: Moist Mucosa Neck: Supple Lungs: Clear to auscultation, Normal air movement Cardiovascular: Regular rate, Regular Rhythm, Normal S1, Normal S2, Murmur - 3/6 holosystolic murmur Abdomen: Bowel Sounds Present, Soft, Non Tender, Non-Distended, No Hepato-spl enomegaly Extremities: No edema Skin: No rashes Musculoskeletal: No Tenderness to Palpation of Joints or Extremities Lymphatic: No Cervical, Supraclavicular, or Inguinal Adenopathy Neurological: Cranial nerves II-XII grossly intact, Neuro grossly intact Psych/Mental Status: Normal Affect, Appropriate - Physical Exam Vital Signs Temp Pulse Resp BP Pulse Ox 97.8 F 81 16 135/89 H 97 09/19/18 08:00 09/19/18 09:00 09/19/18 09:00 09/19/18 09:00 09/19/18 09:00 Oxygen Flow Rate (L/min) 2 Oxygen Delivery Method Room Air Weight: 132.2 kg Body Mass Index (BMI) 45.6 Finger Stick Blood Glucose 191 Intake and Output for Last 24 Hours 09/17/18 09/18/18 09/19/18 23:59 23:59 23:59 Intake Total 477.1 / 477.1 160 / 160 Output Total 4100 / 4100 100 / 100 Balance -3622.9 / -3622.9 60 / 60 Laboratory Tests Past 24 Hrs 09/18/18 09/18/18 09/18/18 10:00 14:20 18:20 WBC RBC Hgb Hct MCV MCH MCHC RDW RDW Differential Plt Count MPV Immature Gran % (Auto) Neut % (Auto) Lymph % (Auto) [place] % (Auto) Eos % (Auto) Baso % (Auto) Absolute Neuts (auto) Absolute Lymphs (auto) Total Counted Sodium 130 L 136 135 L Potassium 7.3 H* 4.1 4.8 Chloride 98 99 99 Carbon Dioxide 26.0 30.0 30.0 Anion Gap 7 6 BUN 66 H 24 H 23 H Creatinine 8.51 H* 3.92 H 4.64 H Estim Creat Clear Calc 9.71 21.08 17.81 Est GFR (MDRD) Af Amer 9 L 21 L 17 L Est GFR (MDRD) Non-Af 7 L 17 L 14 L BUN/Creatinine Ratio 7.8 L 6.1 L 5.0 L Glucose 562 H* 211 H 224 H Calcium 8.2 L 7.8 L 7.5 L Phosphorus 6.2 H Albumin 2.7 L 09/19/18 09/19/18 04:25 04:25 WBC 6.6 RBC 3.70 L Hgb 11.0 L Hct 34.5 L MCV 93.2 MCH 29.7 MCHC 31.9 L RDW 13.8 RDW Differential 46.5 H Plt Count 196 MPV 9.1 Immature Gran % (Auto) 1.200 H Neut % (Auto) 61.6 Lymph % (Auto) 21.9 Allen % (Auto) 9.4 Eos % (Auto) 5.0 Baso % (Auto) 0.9 Absolute Neuts (auto) 4.1 Absolute Lymphs (auto) 1.45 Total Counted Not Reportable Sodium 139 Potassium 4.9 Chloride 101 Carbon Dioxide 31.0 Anion Gap 7 BUN 28 H Creatinine 5.57 H Estim Creat Clear Calc 14.83 Est GFR (MDRD) Af Amer 14 L Est GFR (MDRD) Non-Af 12 L BUN/Creatinine Ratio 5.0 L Glucose 66 L Calcium 7.6 L Phosphorus Albumin POC Glucose 09/19/18 09/19/18 09/19/18 07:34 06:53 05:34 POC Glucose 109 84 97 09/18/18 09/18/18 09/18/18 21:23 16:09 14:11 POC Glucose 156 H 203 H 191 H 09/18/18 09/18/18 09/18/18 13:04 11:58 10:58 POC Glucose 235 H 330 H 481 H* 09/18/18 09:53 POC Glucose > 500 H* Discharge Diet: Low fat/ Low Cholesterol, 2000 mg Sodium Diet, Carb Control Diet, Renal Diet Discharge Activity: Return to Normal Activity Home Medications: Medications to take at Discharge Atorvastatin Calcium [Lipitor] 20 mg PO QHS 10/11/17 Lisinopril [Zestril] 10 mg PO DAILY 10/11/17 Omeprazole 40 mg PO DAILY 10/11/17 Pyridoxine HCl [Vitamin B-6] 100 mg PO DAILY 10/11/17 Sevelamer HCl [Renagel] 800 mg PO TID 10/11/17 Vits A,C,E/Lutein/Minerals [Ocuvite with Lutein Tablet] 1 ea PO DAILY 10/11/17 Folic Acid/Vitamin B Comp W-C [Nephrocaps, Renaphro] 1 cap PO DAILY 10/27/17 FreeStyle Lite Strips See Dose Instructions .ROUTE .MEDSUPPLY #100 ea NS 11/29/17 albuterol sulfate HFA 90 mcg/actuation aerosol inhaler 2 puff INHALATION Q4H PRN #18 g 02/26/18 Aspirin E.C. [Ecotrin] 81 mg PO DAILY 03/23/18 Cyclobenzaprine HCl 10 mg PO TID PRN PRN 03/23/18 Fluticasone 0.05% [Flonase Nasal [place]] 1 spray NASAL DAILY 03/23/18 Furosemide [Lasix] 80 mg PO BID 09/21/18 Gabapentin [Neurontin] 300 mg PO BID 03/23/18 Calcitriol [Rocaltrol] 0.5 mcg PO DAILY 04/17/18 insulin regular human U- 500concentrate 500 unit/mL subcutaneous soln See Rx Instructions SC DAILY #20 ml 05/17/18 FreeStyle Venkatesh 14 Day [place] See Dose Instructions .ROUTE .MEDSUPPLY #1 ea NS 07/04/18 isosorbide mononitrate ER 30 mg tablet,extended release 24 hr 30 mg PO DAILY #30 tab 07/24/18 FreeStyle Venkatesh 14 Day Sensor kit See Dose Instructions .ROUTE .MEDSUPPLY #2 ea NS 08/27/18 Acetaminophen [Tylenol Tablet] 650 mg PO Q6H PRN PRN tablet 09/19/18 Primary Care Physician: Augie Washburn MD [Primary Care Provider] - Please follow up with your Primary Care Physician in: within 1-2 weeks Please Follow Up With: Anca Gregorio DO When: as scheduled Disposition: Home Minutes spent on discharge:: 40 Patient Condition:: Stable Medical Necessity - Tobacco Use Smoking Status: Current some day smoker Tobacco Use: Cigarettes Meaningful Use Info Meaningful Use Diagnoses (Choose all that apply): None applicable Code Visit Inpatient E&M: 17775 Disch Hosp
[2018-09-19] MEDS: Pyridoxine HCl 100 MG Tablet PO (10:14)
[2018-09-19] MEDS: Folic Acid/Vitamin B Comp W-C 1 Capsule 1 CAP PO (10:14)
[2018-09-19] MEDS: Gabapentin 300 MG Capsule PO (10:14)
[2018-09-19] MEDS: Multivitamin (Healthy Eyes) Capsule 1 CAP PO (10:14)
[2018-09-19] MEDS: Isosorbide Mononitrate 30 MG Tablet PO (10:14)
[2018-09-19] MEDS: Calcitriol 0.25 MCG Capsule 0.5 MCG PO (10:14)
[2018-09-19] MEDS: Lisinopril 10 MG Tablet PO (10:14)
[2018-09-19] MEDS: Pantoprazole Sodium 40 MG Tablet PO (10:14)
[2018-09-19] MEDS: Fluticasone 0.05% 1 SPRAY NASAL.SRY NASAL (10:16)
--- NOTE | 2018-09-19 10:49 | CASEMGMT ---
POA and LW in [facility], WILFREDO printed. LW is not completed however. SW spoke w/pt about LW, we reviewed the form. Pt is not certain if he would like to complete this form at this time. SW gave pt the form w/the number to the SW dept and let him know if he would like to complete the form in the future, can call the SW dept and we can assist. Pt states understanding. Paper POA form placed in chart. TRENTON Nye, OPERATION MANAGER
--- NOTE | 2018-09-19 10:56 | CASEMGMT ---
SW spoke w/ICU staff, pt is up walking in the hallway. Pt is discharged home. SW spoke w/pt and in room, they are agreeable to pt going home today. Pt states he still feels a little wobbly. SW observed pt standing independently in the room w/no assist. SW called pt's keycase assembler, Patricia Minor, she is not available, spoke w/covering keycase assembler Werner Moore to let him know pt is going home today. WILFREDO faxed discharge instructions to Patricia. WILFREDO also called [facility] as they provide aide services, let them know pt is going home today. No further needs anticipated. TRENTON Nye, DATA ANALYSIS ASSISTANT
--- NOTE | 2018-09-21 16:51 | CASEMGMT ---
AMIRAH BAUER Discharge Follow-Up Phone Call. Lace: 13 Strata: 4 Discharge Date: 09/19/18 Adm Dx: Hyperkalemia, Hyperglycemia. Call to pt to inquire about how he has been doing since being discharged from the hospital. Pt states he has been doing okay and denies having any questions about the discharge instructions, medications, or appts. He states he made an appt with Dr Washburn for next week and also made an appt with his juvenile officer. He is aware of his appts with Dr Gregorio. He states the aide from [facility] was out to his home today. Pt instructed to call his PCP if he has any questions or concerns or CM office @ [facility]. AMIRAH BAUER thanked pt for choosing [facility]. Macie TORRES RN, CM
== END 2018-09-19 11:00 | disposition home or self-care (01) | DRG 291 ==
LOC: ED 09:06 → ICU 09:09
PROVIDERS: Admitting Provider Internal Medicine; Emergency Provider Emergency Medicine; Family Provider Internal Medicine; PCP Internal Medicine; Visit Provider Internal Medicine
DX: I13.2 Hypertensive heart and chronic kidney disease with heart failure and with stage 5 chronic kidney disease, or end stage renal disease (principal); N18.6 End stage renal disease; I50.33 Acute on chronic diastolic (congestive) heart failure; E87.1 Hypo-osmolality and hyponatremia; J96.11 Chronic respiratory failure with hypoxia; Z68.41 Body mass index [BMI] 40.0-44.9, adult; E10.22 Type 1 diabetes mellitus with diabetic chronic kidney disease; E10.65 Type 1 diabetes mellitus with hyperglycemia; Z99.2 Dependence on renal dialysis; Z91.15 Patient's noncompliance with renal dialysis; E87.5 Hyperkalemia; F17.210 Nicotine dependence, cigarettes, uncomplicated; E66.01 Morbid (severe) obesity due to excess calories; I27.20 Pulmonary hypertension, unspecified; E78.5 Hyperlipidemia, unspecified; E10.40 Type 1 diabetes mellitus with diabetic neuropathy, unspecified; D63.1 Anemia in chronic kidney disease; E83.39 Other disorders of phosphorus metabolism; G47.33 Obstructive sleep apnea (adult) (pediatric); Z99.81 Dependence on supplemental oxygen; Z79.82 Long term (current) use of aspirin; Z79.899 Other long term (current) drug therapy; Z86.73 Personal history of transient ischemic attack (TIA), and cerebral infarction without residual deficits
CPT/HCPCS: 71045; 80048; 80069; 81001; 82962; 83605; 84484; 85025; 90937; 93005; 97802; 99285; J1756; J7030; A4216; C1751; G0257

== ENCOUNTER 2018-11-19 20:31 | Observation (INO) | payer MEDICARE, SELFPAY ==
[2018-09-18 09:52] VITALS: BMI 45.6
[2018-11-19 20:31] VITALS: BP 201/84; PULSE 84; RESP 18; TEMP 36.4; TEMP 38.6; O2SAT 90; O2SAT 94; BMI 43.5
--- NOTE | 2018-11-19 20:55 | RAD_ITS ---
STUDY: X-RAY CHEST REASON FOR EXAM: Male, 48 years old. Cough TECHNIQUE: Frontal view of the chest COMPARISON: X-Ray Chest September 18, 2018 FINDINGS: Pulmonary arteries are prominent without chayo edema. There is no consolidation. There are no pleural effusions. There is no pneumothorax. The heart is normal in size. The visualized osseous structures are within normal limits. RAD/Chest 1 View (Portable) IMPRESSION: Pulmonary arterial prominence without chayo edema. Electronically Signed: Rayray Hidalgo, at 21:31 EDT Tel , Service support ,
--- NOTE | 2018-11-19 20:56 | ED.VIS.GEN ---
History of Present Illness Chief Complaint: Weakness Detail of Chief Complaint: Fever, chills, difficulty standing and cough with shortness of breath Informant: Patient, Significant Other Onset: Today Context: Sudden Onset Timing: Continuous Quality: Fever to 101.0 ?F, shaking chills numerous times, cough and shortness of br Location: Infectious Current Severity: Moderate Maximum Severity: Moderate Worsened by: Nothing Relieved by: Nothing Associated Symptoms: Generalized weakness and inability to stand without support Narrative: Patient is a middle-age male with multiple medical problems who presents with fever, chills, shortness of breath and nonproductive cough that started today. He states he feels weak and is unable to stand without holding onto something or someone holding onto him. This is not normal according to . He does report mild headache. Denies photophobia, neck pain or neck stiffness. He denies rhinorrhea, congestion, postnasal drainage or sore throat. Denies earache. He denies chest pain. He does report nausea vomiting x3. He denies hematemesis, melena hematochezia. He denies any lesions or rash on his lower externally's. He denies pain. He thought he was taking because his blood sugar was low. He checked it several times and reading was 1 20-1 30. Prior similar symptoms: No Recent Illness/Hospitalization: No - Past Medical History (1) Anasarca Status: Acute (2) Edema Status: Acute (3) Fluid overload Status: Acute (4) Hypertension complications Status: Acute (5) Acute on chronic diastolic CHF (congestive heart failure) Status: Chronic (6) Diabetes mellitus, type II Status: Chronic (7) Diabetic neuropathy Status: Chronic (8) End stage renal disease on dialysis due to type 1 diabetes mellitus Status: Chronic (9) HTN (hypertension) Status: Chronic (10) Hyperlipidemia Status: Chronic (11) Morbid obesity with BMI of 40.0-44.9, adult Status: Chronic (12) SELMA (obstructive sleep apnea) Status: Chronic (13) Pulmonary hypertension Status: Chronic (14) TIA (transient ischemic attack) Status: Chronic Past Medical History - Allergies and Home Meds Allergies/Adverse Reactions: Allergies venom-honey bee [bee venom (honey bee)] Allergy (Verified 11/19/18 20:36) Swelling sulfamethoxazole [From Bactrim] Adverse Reaction (Verified 11/19/18 20:36) Upset Stomach trimethoprim [From Bactrim] Adverse Reaction (Verified 11/19/18 20:36) Upset Stomach Primary Care Physician: Augie Washburn MD [Primary Care Provider] - Prior records reviewed: Yes Surgical History: tonsillectomy, - - AV fistula in right arm. Lives: Spouse/ Significant Other Smoking Status: Never smoker Alcohol: None - Family History Maternal Family History: Family History (Last Reviewed 07/16/18 @ 12:34 by Claudette Cheek) Mother Hypertension Heart disease Diabetes Father Hypertension Heart disease Brother Heart disease Family History: Reports: Diabetes, Heart Disease, Hypertension, Renal Disease Paternal Family History: Family History (Last Reviewed 07/16/18 @ 12:34 by Claudette Cheek) Mother Hypertension Heart disease Diabetes Father Hypertension Heart disease Brother Heart disease Family History: Reports: Cancer - liver, Diabetes, Heart Disease Review of Systems General: Reports: Chills, Fever, Malaise, Subjective, Sweats. Denies: Weight loss Eyes: Denies: Visual changes - bilaterally, Blurred Vision - bilaterally, Diplopia ENT: Denies: Bilateral ear pain, Rhinorrhea, Sore throat Cardiovascular: Denies: Chest pain, Palpitations, Heart racing Respiratory: Reports: Dyspnea, Cough. Denies: Sputum, Dyspnea on exertion, Orthopnea Gastrointestinal: Reports: Abdominal pain, Nausea, Vomiting. Denies: Diarrhea, Constipation, Melena, Hematochezia Genitourinary: Reports: - - Patient on dialysis Musculoskeletal: Denies: Myalgias, Arthralgias, Neck pain, Back pain, Swelling, Extremity Pain Neurological: Reports: Headache, Weakness. Denies: Parasthesia, Numbness Endocrine: Denies: Polyuria Hematologic: Denies: Easy bruising, Easy bleeding Allergy: Denies: Uticaria Physical Exam Vital Signs/Narrative: Vital Signs Temp Pulse Resp BP Pulse Ox 11/19/18 20:31 101.4 F H 84 18 201/84 H 94 Inital Vital Signs reviewed: Yes General: Well nourished, Well developed, Obese, No Acute Distress Head: Normocephalic, Atraumatic Eyes: Perrl, EOMI, Pale conjunctiva. Negative for: Scleral icterus ENT: No rhinorrhea, TM's clear Neck: Supple, Nontender, No lymphadenopathy, No JVD Cardiovascular: Regular rate, Regular rhythm, No murmurs, Normal S1, Normal S2 Respiratory: No distress, CTA bilaterally, Chest nontender Abdomen: Soft, Nontender, Nondistended, Normal bowel sounds, No masses. Negative for: Hepatomegaly, Splenomegaly, Mass, Pulsatile mass Rectal: Deferred Back: Nontender, Normal Inspection Extremities: Nontender, No edema, - - Stigmata of peripheral arterial disease with absent hair slightly thickened toenails. Pulses are palpable. No evidence of infection of the lower extremity or feet. Skin: No rash, No Trauma, Pallor. Negative for: Cyanosis, Jaundice Neurological: Alert, Oriented x3, Cranial nerves II-XII grossly intact, Normal Strength, Normal Sensation Psychological: Tearful Diagnostic/Tx/Re-eval Chest X-Ray - ED: 1 View, Read by ED Physician, Normal, Heart, Lungs, Bony Structures, No Acute Disease Impressions Chest X-Ray 11/19/18 20:55 IMPRESSION: Pulmonary arterial prominence without chayo edema. Electronically Signed: Rayray Hidalgo, at 21:31 EDT Tel , Service support , 11/19/18 20:55 Chest 1 View (Portable) [RAD] Stat Laboratory Results 11/19/18 11/19/18 11/19/18 20:50 20:50 20:50 WBC 12.0 H RBC 3.83 L Hgb 11.4 L Hct 34.4 L MCV 89.8 MCH 29.8 MCHC 33.1 RDW 14.0 RDW Differential 45.8 H Plt Count 210 MPV 9.8 Immature Gran % (Auto) 0.400 Neut % (Auto) 84.7 H Lymph % (Auto) 5.6 L [place] % (Auto) 6.9 Eos % (Auto) 2.1 Baso % (Auto) 0.3 Absolute Neuts (auto) 10.1 H Absolute Lymphs (auto) 0.67 L Total Counted Not Reportable Sodium 131 L Potassium 6.4 H* Chloride 96 L Carbon Dioxide 28.0 Anion Gap 7 BUN 47 H Creatinine 7.64 H* Estim Creat Clear Calc 10.44 Est GFR (MDRD) Af Amer 10 L Est GFR (MDRD) Non-Af 8 L BUN/Creatinine Ratio 6.2 L Glucose 274 H Lactic Acid 1.5 Calcium 9.4 Urine Color Urine Clarity Urine pH Ur Specific [place] Urine Protein Urine Glucose (UA) Urine Ketones Urine Occult Blood Urine Nitrite Urine Bilirubin Urine Urobilinogen Ur Leukocyte Esterase Urine RBC Urine WBC Ur Squamous Epith Cells Urine Bacteria Hyaline Casts Urine Mucus 11/19/18 21:13 WBC RBC Hgb Hct MCV MCH MCHC RDW RDW Differential Plt Count MPV Immature Gran % (Auto) Neut % (Auto) Lymph % (Auto) [place] % (Auto) Eos % (Auto) Baso % (Auto) Absolute Neuts (auto) Absolute Lymphs (auto) Total Counted Sodium Potassium Chloride Carbon Dioxide Anion Gap BUN Creatinine Estim Creat Clear Calc Est GFR (MDRD) Af Amer Est GFR (MDRD) Non-Af BUN/Creatinine Ratio Glucose Lactic Acid Calcium Urine Color Yellow Urine Clarity Clear Urine pH 8.0 Ur Specific [place] 1.010 Urine Protein 500 H Urine Glucose (UA) 1000 H Urine Ketones Negative Urine Occult Blood 25 H Urine Nitrite Negative Urine Bilirubin Negative Urine Urobilinogen Normal Ur Leukocyte Esterase Negative Urine RBC 0-5 SEEN Urine WBC 0-5 SEEN Ur Squamous Epith Cells 0 SEEN Urine Bacteria RARE Hyaline Casts 0-5 SEEN Urine Mucus 0 SEEN - Medical Decision Making With complaint of fever and chills and documented temperature of 101 with rest Tory symptoms will obtain chest x-ray and appropriate blood work to assess for infectious etiology. Patient's potassium is 6.4 with a creatinine of 7.64. He does make urine and he is dialyzed Monday, Monday and Monday. His eye surgeon Dr. Anca Gregorio. Spoke with hospitalist. 23 observation PCU. Because there is slight prominence of his T waves compared to prior EKG will treat with D50 and 10 units of insulin. There is no prolongation of the QRS complex. Since he is not acidotic bicarb was not given. ED Disposition - Plan for ED Patient: Disposition: Acute Care Hospital [facility] Diagnosis: Hyperkalemia, Fever, unknown origin, Hyperglycemia due to type 1 diabetes mellitus, End stage renal disease on dialysis, Accelerated hypertension Referrals: Augie Washburn MD [Primary Care Provider] -
[2018-11-19] MEDS: Acetaminophen 325 MG Tablet 650 MG PO (20:58)
[2018-11-19 21:19] LABS: Mucous, Urine 0 SEEN /hpf (<or=2+); Squamous Epithelial Cells - UA 0 SEEN /hpf (0-5)
[2018-11-19 21:21] LABS: Color, Urine Yellow (Yellow); Glucose, Dipstick 1000 mg/dl (Normal); Ketone-Dipstick Negative (Negative); Leukocyte Esterase-Dipstick Negative /ul (Negative); Nitrite-Dipstick Negative (Negative); Occult Blood-Urine 25 /ul (Negative); Protein-Dipstick 500 mg/dl (Negative); Urine Bilirubin Dipstick Negative (Negative); Urine Clarity Clear (Clear); Urine Urobilinogen Normal (Normal)
[2018-11-19 21:23] LABS: Absolute Lymphocyte Count 0.67 X10^3/ul (0.83-4.51); Absolute Neutrophil Count 10.1 X10^3/uL (2.0-7.7); Basophil# 0.03 X10^3/uL; Basophil% 0.3 % (0-1); Eosinophil# 0.25 X10^3/uL; Eosinophils% 2.1 % (0-5); Hematocrit 34.4 % (40-54); Hemoglobin 11.4 g/dl (13.0-16.5); Lymphocyte # 0.67 X10^3/ul (4.0); Lymphocyte % 5.6 % (19-41); Mean Corp Hgb Conc 33.1 g/gl (32-36); Mean Corpuscular Hgb 29.8 pg (27.0-32.0); Mean Corpuscular Volume 89.8 fL (80-94); Mean Platelet Vol. 9.8 fl (6.2-12.0); Monocyte# 0.83 X10^3/uL; Monocyte% 6.9 % (0-10); Neutrophil # 10.12 X10^3/uL (2.7-7.7); Neutrophil % 84.7 % (47-70); POSITIVE COUNT NO; POSITIVE DIFFERENTIAL NO; POSITIVE MORPHOLOGY NO; Platelet Count 210 K/mm3 (150-450); RBC Distribution Width SD 45.8 fl (35.1-43.9); Red Blood Count 3.83 M/mm3 (4.6-6.2)
[2018-11-19 21:29] LABS: Lactic Acid 1.5 mmol/L (0.4-2.0)
[2018-11-19 21:30] LABS: Hyaline Cast 0-5 SEEN /lpf (0-5)
[2018-11-19 21:31] LABS: Red Blood Cells-Urine 0-5 SEEN /hpf (0-5); White Blood Cells 0-5 SEEN /hpf (0-5)
[2018-11-19 21:33] LABS: Bacteria RARE /hpf (None Seen)
[2018-11-19 21:41] VITALS: TEMP 38.6
[2018-11-19 21:42] LABS: Anion Gap 7 (5-15); BUN 47 mg/dL (7-18); BUN/Creat Ratio 6.2 RATIO (10-20); Calcium,Total 9.4 mg/dL (8.5-10.1); Chloride 96 mmol/L (98-107); Creatinine, Serum 7.64 mg/dL (0.70-1.30); EST Glomerular Filtration Rate 8 mL/min (>60); Est Glom Filt Rate - Afr Amer 10 mL/min (>60); Estimated Creatinine Clearance 10.44 ml/min; Glucose 274 mg/dL (74-106); Potassium 6.4 mmol/L (3.5-5.1); Sodium Level 131 mmol/L (136-145)
--- NOTE | 2018-11-19 21:42 | ED.RN ---
DR PATEL NOTIFIED OF K+ AND CRE RESULTS
--- NOTE | 2018-11-19 21:54 | EKG12_ITS ---
Test Reason : WEAKNESS Blood Pressure : / mmHG Vent. Rate : 092 BPM Atrial Rate : 092 BPM P-R Int : 162 ms QRS Dur : 086 ms QT Int : 342 ms P-R-T Axes : 021 014 086 degrees QTc Int : 422 ms Normal sinus rhythm Nonspecific ST and T wave abnormality Abnormal ECG Confirmed by GIL LOMELI, ELIZABETH ([id number]), greeting card editor JACKIE OJEDA ([id number]) on 11/22/2018 1:21:56 PM Referred By: JORGE Confirmed By:ELIZABETH CORDERO MD
--- NOTE | 2018-11-19 22:23 | PCM.HP.STD ---
Problem List (1) Hyperkalemia Status: Acute (2) Acute hyperglycemia Status: Chronic (3) Fever, unknown origin Status: Acute (4) End stage renal disease on dialysis Status: Chronic (5) Pulmonary hypertension Status: Chronic (6) Noncompliance Status: Chronic (7) CHF (congestive heart failure) Status: Chronic Qualifiers: Heart failure type: diastolic Heart failure chronicity: chronic Qualified Code(s): I50.32 - Chronic diastolic (congestive) heart failure (8) Fever and chills Status: Acute (9) Chronic respiratory failure with hypoxia Status: Chronic (10) SELMA (obstructive sleep apnea) Status: Chronic History of Present Illness Date of Admission: 11/19/18 Chief Complaint: febrile illness and high potassium The patient is a 48 year old [male patient with a significant history of diabetes who presents with 1 day history of fever and chills and nausea and vomiting x3 episodes with no diarrhea. The patient has a significant history of end-stage renal disease and is on dialysis routinely, his next routine dialysis day would be tomorrow morning at 530. Laboratory findings today are significant for a potassium of 6.4 and a blood sugar of 274. Currently the patient is normotensive yet has a temperature of 102 ?F. Chest x-ray is negative for acute pneumonia however the pulmonary arteries are described as prominent on the report. Patient denies chest pain at present time. He will be admitted to the medical surgical floor for observation and nephrology consult with Dr. Gregorio will be ordered for the morning as the patient will need dialysis. There are no skin lesions. In the urinalysis is negative for infection at this time.] Past Medical History Past Medical History (Chronic Problems): Chronic Problems (Last Reviewed 07/16/18 @ 12:34 by Claudette Cheek) Acute hyperglycemia (Chronic) Type 1 diabetes mellitus with hyperosmolarity without nonketotic hyperglycemic hyperosmolar coma (Chronic) End stage renal disease on dialysis due to type 1 diabetes mellitus (Chronic) End stage renal disease on dialysis (Chronic) Morbid obesity with BMI of 40.0-44.9, adult (Chronic) Pulmonary hypertension (Chronic) Morbid obesity with BMI of 40.0-44.9, adult (Chronic) Diabetes mellitus, type II (Chronic) Renal failure (Chronic) Noncompliance (Chronic) CHF (congestive heart failure) (Chronic) TIA (transient ischemic attack) (Chronic) Chronic respiratory failure with hypoxia (Chronic) HTN (hypertension) (Chronic) Acute on chronic diastolic CHF (congestive heart failure) (Chronic) Hyperlipidemia (Chronic) Diabetic neuropathy (Chronic) Anemia (Chronic) SELMA (obstructive sleep apnea) (Chronic) Medical History: Medical History (Last Reviewed 07/16/18 @ 12:34 by Claudette Cheek) Chronic respiratory failure with hypoxia (Chronic) J96.11 Preop cardiovascular exam (Acute) Acute diastolic (congestive) heart failure (Acute) I50.31 HTN (hypertension) (Chronic) I10 Acute respiratory failure with hypoxia (Acute) J96.01 Acute on chronic diastolic CHF (congestive heart failure) (Chronic) I50.33 Hyperlipidemia (Chronic) E78.5 Diabetic neuropathy (Chronic) E11.40 Anemia (Chronic) D64.9 SELMA (obstructive sleep apnea) (Chronic) G47.33 ESRD (end stage renal disease) on dialysis N18.6, Z99.2 cataract surgery, l eye Chronic respiratory failure J96.10 Dyspnea R06.00 Edema R60.9 Hypotension I95.9 Morbid obesity E66.01 Overweight E66.3 Type 2 diabetes mellitus with other diabetic kidney complication E11.29 dx : age 16 last exacerbation : dka : never hypoglycemic episode : 2012 er visit : 2013 Allergies venom-honey bee [bee venom (honey bee)] Allergy (Verified 11/19/18 20:36) Swelling sulfamethoxazole [From Bactrim] Adverse Reaction (Verified 11/19/18 20:36) Upset Stomach trimethoprim [From Bactrim] Adverse Reaction (Verified 11/19/18 20:36) Upset Stomach Home Medications: Ambulatory Orders Medication Instructions Recorded Atorvastatin Calcium [Lipitor] 20 mg PO QHS 10/11/17 Lisinopril [Zestril] 10 mg PO DAILY 10/11/17 Omeprazole 40 mg PO DAILY 10/11/17 Pyridoxine HCl [Vitamin B-6] 100 mg PO DAILY 10/11/17 Sevelamer HCl [Renagel] 800 mg PO TID 10/11/17 Vits A,C,E/Lutein/Minerals 1 ea PO DAILY 10/11/17 [Ocuvite with Lutein Tablet] Folic Acid/Vitamin B Comp W-C 1 cap PO DAILY 10/27/17 [Nephrocaps, Renaphro] FreeStyle Lite Strips See Dose Instructions .ROUTE 11/29/17 .MEDSUPPLY #100 ea NS albuterol sulfate HFA 90 2 puff INHALATION Q4H PRN #18 g 02/26/18 mcg/actuation aerosol inhaler Aspirin E.C. [Ecotrin] 81 mg PO DAILY 03/23/18 Cyclobenzaprine HCl 10 mg PO TID PRN PRN 03/23/18 Fluticasone 0.05% [Flonase Nasal 1 spray NASAL DAILY 03/23/18 Jensen] Furosemide [Lasix] 80 mg PO BID 03/23/18 Gabapentin [Neurontin] 300 mg PO BID 03/23/18 Calcitriol [Rocaltrol] 0.5 mcg PO DAILY 04/17/18 insulin regular human U- See Rx Instructions SC DAILY #20 ml 05/17/18 500concentrate 500 unit/mL subcutaneous soln FreeStyle Venkatesh 14 Day [place] See Dose Instructions .ROUTE 07/04/18 .MEDSUPPLY #1 ea NS isosorbide mononitrate ER 30 mg 30 mg PO DAILY #30 tab 07/24/18 tablet,extended release 24 hr FreeStyle Venkatesh 14 Day Sensor kit See Dose Instructions .ROUTE 08/27/18 .MEDSUPPLY #2 ea NS Acetaminophen [Tylenol Tablet] 650 mg PO Q6H PRN PRN tablet 09/19/18 Surgical History: Surgical History (Last Reviewed 07/16/18 @ 12:34 by Claudette Cheek) S/P tonsillectomy Z90.89 dialysis fistula Rt Arm Surgical History: tonsillectomy, - - AV fistula in right arm. Lives: Spouse/ Significant Other Smoking Status: Never smoker Alcohol: None - *Family History Maternal Family History: Family History (Last Reviewed 07/16/18 @ 12:34 by Claudette Cheek) Mother Hypertension Heart disease Diabetes Father Hypertension Heart disease Brother Heart disease History Items: Diabetes, Heart Disease, Hypertension, Renal Disease Paternal Family History: Family History (Last Reviewed 07/16/18 @ 12:34 by Claudette Cheek) Mother Hypertension Heart disease Diabetes Father Hypertension Heart disease Brother Heart disease History Items: Cancer - liver, Diabetes, Heart Disease Review of Systems Constitutional: Reports: Chills, Fever, Weakness, Fatigue. Denies: Weight Change HEENT: Denies: Head Aches, Sinus Congestion, Sinus Drainage Cardiovascular: Denies: Chest Pain, Palpitations Respiratory: Denies: Cough, Shortness of breath at rest, Sputum production Gastrointestinal: Reports: Nausea, Vomiting. Denies: Abdominal Pain Genitourinary: Denies: Dysuria Musculoskeletal: Denies: Joint Pain, Joint Tenderness Skin: Denies: Rash, Wounds Neurological: Denies: Numbness, Tingling, Focal weakness Psychiatric: Denies: Anxiety, Depression, Homicidal Ideations, Suicidal Ideations Hematologic/ Lymphatic: Denies: Easy Bruising, Easy Bleeding VTE Information - Inpt Only VTE Present on Admission: No VTE Mechan Device Prophylaxis: SCD's VTE Pharm Prophylaxis ordered?: No Patient Problems: Active and Suspected Problems (Last Reviewed 07/16/18 @ 12:34 by Claudette Cheek) Hyperkalemia (Acute) Fever, unknown origin (Acute) Hyperglycemia due to type 1 diabetes mellitus (Acute) Accelerated hypertension (Acute) - Physical Exam General: Alert, Oriented x3, Cooperative HEENT: Atraumatic, PERRLA, EOMI, Normocephalic Neck: Supple, Negative Carotid Bruits Lungs: Clear to auscultation, Normal air movement Cardiovascular: Regular rate, Normal S1, Normal S2, No murmurs Abdomen: Bowel Sounds Present, Soft, Non Tender, Obese Extremities: No edema, Capillary Refill Less than 3 Seconds Skin: No rashes, No breakdown Musculoskeletal: No Tenderness to Palpation of Joints or Extremities Neurological: Neuro grossly intact Psych/Mental Status: Normal Affect, Appropriate Vital Signs Temp Pulse Resp BP Pulse Ox 101.5 F H 84 18 201/84 H 94 11/19/18 21:41 11/19/18 20:31 11/19/18 20:31 11/19/18 20:31 11/19/18 20:31 Oxygen Flow Rate (L/min) 4 Oxygen Delivery Method Nasal Cannula Weight: 270 lb Body Mass Index (BMI) 43.5 Finger Stick Blood Glucose 191 Laboratory Tests Past 24 Hrs 11/19/18 11/19/18 11/19/18 20:50 20:50 20:50 WBC 12.0 H RBC 3.83 L Hgb 11.4 L Hct 34.4 L MCV 89.8 MCH 29.8 MCHC 33.1 RDW 14.0 RDW Differential 45.8 H Plt Count 210 MPV 9.8 Immature Gran % (Auto) 0.400 Neut % (Auto) 84.7 H Lymph % (Auto) 5.6 L [place] % (Auto) 6.9 Eos % (Auto) 2.1 Baso % (Auto) 0.3 Absolute Neuts (auto) 10.1 H Absolute Lymphs (auto) 0.67 L Total Counted Not Reportable Sodium 131 L Potassium 6.4 H* Chloride 96 L Carbon Dioxide 28.0 Anion Gap 7 BUN 47 H Creatinine 7.64 H* Estim Creat Clear Calc 10.44 Est GFR (MDRD) Af Amer 10 L Est GFR (MDRD) Non-Af 8 L BUN/Creatinine Ratio 6.2 L Glucose 274 H Lactic Acid 1.5 Calcium 9.4 Urine Color Urine Clarity Urine pH Ur Specific [place] Urine Protein Urine Glucose (UA) Urine Ketones Urine Occult Blood Urine Nitrite Urine Bilirubin Urine Urobilinogen Ur Leukocyte Esterase Urine RBC Urine WBC Ur Squamous Epith Cells Urine Bacteria Hyaline Casts Urine Mucus 11/19/18 21:13 WBC RBC Hgb Hct MCV MCH MCHC RDW RDW Differential Plt Count MPV Immature Gran % (Auto) Neut % (Auto) Lymph % (Auto) [place] % (Auto) Eos % (Auto) Baso % (Auto) Absolute Neuts (auto) Absolute Lymphs (auto) Total Counted Sodium Potassium Chloride Carbon Dioxide Anion Gap BUN Creatinine Estim Creat Clear Calc Est GFR (MDRD) Af Amer Est GFR (MDRD) Non-Af BUN/Creatinine Ratio Glucose Lactic Acid Calcium Urine Color Yellow Urine Clarity Clear Urine pH 8.0 Ur Specific [place] 1.010 Urine Protein 500 H Urine Glucose (UA) 1000 H Urine Ketones Negative Urine Occult Blood 25 H Urine Nitrite Negative Urine Bilirubin Negative Urine Urobilinogen Normal Ur Leukocyte Esterase Negative Urine RBC 0-5 SEEN Urine WBC 0-5 SEEN Ur Squamous Epith Cells 0 SEEN Urine Bacteria RARE Hyaline Casts 0-5 SEEN Urine Mucus 0 SEEN Assessment/Plan All Active Problems (Last Reviewed 07/16/18 @ 12:34 by Claudette Cheek) Hyperkalemia (Acute) Acute hyperkalemia (Acute) Fluid overload (Acute) Hypertension complications (Acute) Fever, unknown origin (Acute) Hyperglycemia due to type 1 diabetes mellitus (Acute) Accelerated hypertension (Acute) Shortness of breath (Acute) Left leg cellulitis (Acute) SIRS (systemic inflammatory response syndrome) (Acute) Periapical abscess (Acute) Anasarca (Acute) Edema (Acute) Abnormal stress test (Acute) Muscle cramp, nocturnal (Acute) Chest pain (Acute) Nausea and vomiting (Acute) Fever and chills (Acute) Malaise and fatigue (Acute) Preop cardiovascular exam (Acute) Acute diastolic (congestive) heart failure (Acute) Acute respiratory failure with hypoxia (Acute) Chronic Problems (Last Reviewed 07/16/18 @ 12:34 by Claudette Cheek) Acute hyperglycemia (Chronic) Type 1 diabetes mellitus with hyperosmolarity without nonketotic hyperglycemic hyperosmolar coma (Chronic) End stage renal disease on dialysis due to type 1 diabetes mellitus (Chronic) End stage renal disease on dialysis (Chronic) Morbid obesity with BMI of 40.0-44.9, adult (Chronic) Pulmonary hypertension (Chronic) Morbid obesity with BMI of 40.0-44.9, adult (Chronic) Diabetes mellitus, type II (Chronic) Renal failure (Chronic) Noncompliance (Chronic) CHF (congestive heart failure) (Chronic) TIA (transient ischemic attack) (Chronic) Chronic respiratory failure with hypoxia (Chronic) HTN (hypertension) (Chronic) Acute on chronic diastolic CHF (congestive heart failure) (Chronic) Hyperlipidemia (Chronic) Diabetic neuropathy (Chronic) Anemia (Chronic) SELMA (obstructive sleep apnea) (Chronic) Plan 1.?acute hyperkalemia?we will give the patient 18 units of Levemir per normal dose (patient is usually on nph), if patient has not received calcium in the emergency room we will give him a dose to protect the myocardium from the hyperkalemia. 2.?Fever of unknown origin?gentle IV hydration overnight with normal saline. Tylenol 650 p.o. every 6 hours as needed. Repeat CBC BMP in a.m. 3.-End-stage renal disease on dialysis?obtain consult with production honing machine operator Dr. Anca Gregorio 4. Diabetes continue home insulin dose 5. DVT prophylaxis-scds 6. continue routine medications for stable medical conditions 7. Nausea - Zofran prn Code Visit OBSV E&M: [id number] Initial observation care L2
[2018-11-19] MEDS: Dextrose 50%-Water 25 GM/50 ML DISP.SYRIN IV (22:52)
[2018-11-19 22:57] VITALS: BP 201/74; PULSE 87; RESP 21; RESP 24; TEMP 37.5; O2SAT 92
[2018-11-19 23:05] LABS: Bedside Glucose 269 mg/dL (70-110)
[2018-11-19 23:13] VITALS: BP 179/78; PULSE 87; RESP 18; TEMP 37.3; O2SAT 94
[2018-11-19 23:28] VITALS: BMI 44.3
[2018-11-19 23:30] VITALS: PULSE 84
[2018-11-19 23:34] VITALS: BMI 44.3
[2018-11-19] MEDS: 0.9% Normal Saline 1,000 ML 75 ML IV (23:42)
[2018-11-19 23:57] VITALS: BP 160/88
[2018-11-20] VITALS (10 sets, daily range): BP systolic 123–157; BP diastolic 67–84; PULSE 77–92; RESP 16–20; TEMP 36.9–37.5; O2SAT 94–97
[2018-11-20 00:06] LABS: Bedside Glucose 268 mg/dL (70-110)
[2018-11-20] MEDS: Insulin Lispro 100 UNIT/ML INSULN.PEN SC ×4 (00:25→21:17)
[2018-11-20] MEDS: Acetaminophen 325 MG Tablet 650 MG PO (05:00)
[2018-11-20] MEDS: 0.9% NaCl Peripheral Flush Adult/Peds IV (05:00)
[2018-11-20] MEDS: Ondansetron 4 MG/2 ML Vial IV (05:00)
[2018-11-20 05:21] LABS: Bedside Glucose 199 mg/dL (70-110)
[2018-11-20 05:38] LABS: Absolute Lymphocyte Count 0.91 X10^3/ul (0.83-4.51); Absolute Neutrophil Count 8.5 X10^3/uL (2.0-7.7); Basophil# 0.02 X10^3/uL; Basophil% 0.2 % (0-1); Eosinophil# 0.22 X10^3/uL; Eosinophils% 2.1 % (0-5); Hematocrit 32.8 % (40-54); Hemoglobin 10.7 g/dl (13.0-16.5); Lymphocyte # 0.91 X10^3/ul (4.0); Lymphocyte % 8.7 % (19-41); Mean Corp Hgb Conc 32.6 g/gl (32-36); Mean Corpuscular Hgb 29.6 pg (27.0-32.0); Mean Corpuscular Volume 90.6 fL (80-94); Mean Platelet Vol. 9.8 fl (6.2-12.0); Monocyte% 7.6 % (0-10); Neutrophil # 8.49 X10^3/uL (2.7-7.7); Neutrophil % 80.7 % (47-70); Platelet Count 195 K/mm3 (150-450); RBC Distribution Width CV 14.1 % (11.6-14.6); RBC Distribution Width SD 45.1 fl (35.1-43.9); Red Blood Count 3.62 M/mm3 (4.6-6.2); White Blood Count 10.5 K/mm3 (4.4-11.0)
[2018-11-20 05:41] LABS: POSITIVE COUNT NO; POSITIVE DIFFERENTIAL NO; POSITIVE MORPHOLOGY NO
[2018-11-20 05:50] LABS: International Normalized Ratio 1.1; Prothrombin Time (Protime)PT. 13.9 SECONDS (11.7-14.9)
[2018-11-20 05:55] LABS: Anion Gap 8 (5-15); BUN 50 mg/dL (7-18); BUN/Creat Ratio 6.2 RATIO (10-20); Calcium,Total 8.5 mg/dL (8.5-10.1); Chloride 99 mmol/L (98-107); Creatinine, Serum 8.11 mg/dL (0.70-1.30); EST Glomerular Filtration Rate 8 mL/min (>60); Est Glom Filt Rate - Afr Amer 9 mL/min (>60); Estimated Creatinine Clearance 9.83 ml/min; Glucose 216 mg/dL (74-106); Magnesium 2.1 mg/dL (1.6-2.6); Potassium 6.6 mmol/L (3.5-5.1); Sodium Level 134 mmol/L (136-145)
--- NOTE | 2018-11-20 05:59 | NURSING ---
Pts primary rn aware of critical k and creatinine levels this am.
[2018-11-20 06:36] LABS: Bedside Glucose 258 mg/dL (70-110)
[2018-11-20] MEDS: Sodium Polystyrene Sulfonate 15 GM/60 ML UDC 30 GM PO (07:47)
--- NOTE | 2018-11-20 09:58 | CT_ITS ---
STUDY: CT BRAIN WITHOUT CONTRAST REASON FOR EXAM: Male, 48 years old. Dizziness, chills, fever, headache RADIATION DOSAGE (If Supplied By Facility): CTDIvol = ( 44.99 ) mGy, DLP = ( 796.11 ) mGycm TECHNIQUE: Transaxial CT imaging of the brain was performed without administration of intravenous contrast material. Sagittal and coronal 2-D MPR. Individualized dose optimization techniques were used for this CT. COMPARISON: CT head 06/08/2018 FINDINGS: Sinuses clear. Craniofacial osseous structures intact. Extra cranial soft tissues including orbital contents exhibits no acute process. The brain is normal in attenuation characteristics and morphology. There is no acute intracranial bleed, mass or mass effect nor any specific evidence of acute territorial infarct. There are no significant chronic degenerative features of the brain. CT/Brain/Head without Contrast IMPRESSION: No acute intracranial process. Electronically Signed: Bladimir Crenshaw MD at 15:30 EDT Tel , Service support ,
--- NOTE | 2018-11-20 10:50 | CASEMGMT ---
Patient has a Healthcare Power of Membership Coordinator and a Healthcare Living Will on file. Agatha SHEETS MSW
--- NOTE | 2018-11-20 13:22 | PCM.PROGNOTE ---
<Zachariah Meza - Last Filed: 11/20/18 13:22> Patient Problems: Active and Suspected Problems (Last Reviewed 07/16/18 @ 12:34 by Claudette Cheek) Hyperkalemia (Acute) Fever, unknown origin (Acute) Hyperglycemia due to type 1 diabetes mellitus (Acute) Accelerated hypertension (Acute) Subjective: Ongoing malaise, lethargy, cough (nonproductive) sore throat, neck pain, headache, sinus pain, sinus congestion, dizziness, nausea and vomiting. Rapid strep + for strep A. recently sick with URI. No new rashes or skin breakdown, no recent diarrhea. Loose stools after receiving kayexalate. - Physical Exam General: Alert, Oriented x3, Cooperative HEENT: Atraumatic, PERRLA, EOMI, Normocephalic Neck: Supple, No JVD, Negative Carotid Bruits Lungs: Clear to auscultation, Normal air movement Cardiovascular: Regular rate, No murmurs Abdomen: Bowel Sounds Present, Soft, Non Tender Extremities: No edema, Capillary Refill Less than 3 Seconds Skin: No rashes, No breakdown Musculoskeletal: No Tenderness to Palpation of Joints or Extremities Neurological: Cranial nerves II-XII grossly intact Psych/Mental Status: Normal Affect, Appropriate, Alert and oriented to time, place, person, mood and affect Vital Signs Temp Pulse Resp BP Pulse Ox 98.4 F 84 16 157/80 H 95 11/20/18 07:49 11/20/18 10:54 11/20/18 07:49 11/20/18 07:49 11/20/18 07:49 Oxygen Flow Rate (L/min) 2 Oxygen Delivery Method Nasal Cannula Weight: 279 lb 15.793 oz Body Mass Index (BMI) 44.3 Finger Stick Blood Glucose 191 Intake and Output for Last 24 Hours 11/18/18 11/19/18 11/20/18 23:59 23:59 23:59 Intake Total 599 / 599 Balance 599 / 599 Microbiology Past 72 Hours 11/20/18 10:11 Group A Streptococcus Rapid Screen - Final Mucosa - Throat Streptococcus Group A Laboratory Tests Past 24 Hrs 11/19/18 11/19/18 11/19/18 20:50 20:50 20:50 WBC 12.0 H RBC 3.83 L Hgb 11.4 L Hct 34.4 L MCV 89.8 MCH 29.8 MCHC 33.1 RDW 14.0 RDW Differential 45.8 H Plt Count 210 MPV 9.8 Immature Gran % (Auto) 0.400 Neut % (Auto) 84.7 H Lymph % (Auto) 5.6 L [place] % (Auto) 6.9 Eos % (Auto) 2.1 Baso % (Auto) 0.3 Absolute Neuts (auto) 10.1 H Absolute Lymphs (auto) 0.67 L Total Counted Not Reportable PT INR Sodium 131 L Potassium 6.4 H* Chloride 96 L Carbon Dioxide 28.0 Anion Gap 7 BUN 47 H Creatinine 7.64 H* Estim Creat Clear Calc 10.44 Est GFR (MDRD) Af Amer 10 L Est GFR (MDRD) Non-Af 8 L BUN/Creatinine Ratio 6.2 L Glucose 274 H Lactic Acid 1.5 Calcium 9.4 Magnesium Urine Color Urine Clarity Urine pH Ur Specific [place] Urine Protein Urine Glucose (UA) Urine Ketones Urine Occult Blood Urine Nitrite Urine Bilirubin Urine Urobilinogen Ur Leukocyte Esterase Urine RBC Urine WBC Ur Squamous Epith Cells Urine Bacteria Hyaline Casts Urine Mucus 11/19/18 11/20/18 11/20/18 21:13 05:20 05:20 WBC 10.5 RBC 3.62 L Hgb 10.7 L Hct 32.8 L MCV 90.6 MCH 29.6 MCHC 32.6 RDW 14.1 RDW Differential 45.1 H Plt Count 195 MPV 9.8 Immature Gran % (Auto) 0.700 Neut % (Auto) 80.7 H Lymph % (Auto) 8.7 L [place] % (Auto) 7.6 Eos % (Auto) 2.1 Baso % (Auto) 0.2 Absolute Neuts (auto) 8.5 H Absolute Lymphs (auto) 0.91 Total Counted Not Reportable PT INR Sodium 134 L Potassium 6.6 H* Chloride 99 Carbon Dioxide 27.0 Anion Gap 8 BUN 50 H Creatinine 8.11 H* Estim Creat Clear Calc 9.83 Est GFR (MDRD) Af Amer 9 L Est GFR (MDRD) Non-Af 8 L BUN/Creatinine Ratio 6.2 L Glucose 216 H Lactic Acid Calcium 8.5 Magnesium 2.1 Urine Color Yellow Urine Clarity Clear Urine pH 8.0 Ur Specific [place] 1.010 Urine Protein 500 H Urine Glucose (UA) 1000 H Urine Ketones Negative Urine Occult Blood 25 H Urine Nitrite Negative Urine Bilirubin Negative Urine Urobilinogen Normal Ur Leukocyte Esterase Negative Urine RBC 0-5 SEEN Urine WBC 0-5 SEEN Ur Squamous Epith Cells 0 SEEN Urine Bacteria RARE Hyaline Casts 0-5 SEEN Urine Mucus 0 SEEN 11/20/18 05:20 WBC RBC Hgb Hct MCV MCH MCHC RDW RDW Differential Plt Count MPV Immature Gran % (Auto) Neut % (Auto) Lymph % (Auto) [place] % (Auto) Eos % (Auto) Baso % (Auto) Absolute Neuts (auto) Absolute Lymphs (auto) Total Counted PT 13.9 INR 1.1 Sodium Potassium Chloride Carbon Dioxide Anion Gap BUN Creatinine Estim Creat Clear Calc Est GFR (MDRD) Af Amer Est GFR (MDRD) Non-Af BUN/Creatinine Ratio Glucose Lactic Acid Calcium Magnesium Urine Color Urine Clarity Urine pH Ur Specific [place] Urine Protein Urine Glucose (UA) Urine Ketones Urine Occult Blood Urine Nitrite Urine Bilirubin Urine Urobilinogen Ur Leukocyte Esterase Urine RBC Urine WBC Ur Squamous Epith Cells Urine Bacteria Hyaline Casts Urine Mucus POC Glucose 11/20/18 11/20/18 11/19/18 06:27 05:05 23:48 POC Glucose 258 H 199 H 268 H 11/19/18 22:49 POC Glucose 269 H Medical Necessity - Tobacco Use Smoking Status: Never smoker Assessment/Plan All Active Problems (Last Reviewed 07/16/18 @ 12:34 by Claudette Cheek) Hyperkalemia (Acute) Acute hyperkalemia (Acute) Fluid overload (Acute) Hypertension complications (Acute) Fever, unknown origin (Acute) Hyperglycemia due to type 1 diabetes mellitus (Acute) Accelerated hypertension (Acute) Shortness of breath (Acute) Left leg cellulitis (Acute) SIRS (systemic inflammatory response syndrome) (Acute) Periapical abscess (Acute) Anasarca (Acute) Edema (Acute) Abnormal stress test (Acute) Muscle cramp, nocturnal (Acute) Chest pain (Acute) Nausea and vomiting (Acute) Fever and chills (Acute) Malaise and fatigue (Acute) Preop cardiovascular exam (Acute) Acute diastolic (congestive) heart failure (Acute) Acute respiratory failure with hypoxia (Acute) 1. Acute sepsis 2/2 GAS tonsillitis/sinusitis - augmentin ESRD dosed. + rapid strep with consistent symptoms. Sepsis as per leukocytosis, fever + active infection. Negative lactate. CXR negative. UA negative, 2. ESRD with hyperkalemia - Dialysis per Dr. Gregorio today, kayex given with following loose stools. 3. Headache, dizziness, nausea and vomiting - check CT head. 4. T2DM - SSI. 5. Chronic hypoxic respiratory failure - 2lpm prn is home dose. no acute exacerbation. 6. Hx diastolic CHF and pulmonary htn - no exacerbation. DVT ppx: heparin DC planning: likely home tomorrow resume normal dialysis. This patient was seen by Zachariah Meza PA-C under the supervision of Dr. Velásquez. <Pamela Velásquez - Last Filed: 11/20/18 13:43> - Physical Exam Vital Signs Temp Pulse Resp BP Pulse Ox 98.4 F 84 16 157/80 H 95 11/20/18 07:49 11/20/18 10:54 11/20/18 07:49 11/20/18 07:49 11/20/18 07:49 Oxygen Flow Rate (L/min) 2 Oxygen Delivery Method Nasal Cannula Weight: 279 lb 15.793 oz Body Mass Index (BMI) 44.3 Finger Stick Blood Glucose 191 Intake and Output for Last 24 Hours 11/18/18 11/19/18 11/20/18 23:59 23:59 23:59 Intake Total 599 / 599 Balance 599 / 599 Microbiology Past 72 Hours 11/20/18 10:11 Group A Streptococcus Rapid Screen - Final Mucosa - Throat Streptococcus Group A Laboratory Tests Past 24 Hrs 11/19/18 11/19/18 11/19/18 20:50 20:50 20:50 WBC 12.0 H RBC 3.83 L Hgb 11.4 L Hct 34.4 L MCV 89.8 MCH 29.8 MCHC 33.1 RDW 14.0 RDW Differential 45.8 H Plt Count 210 MPV 9.8 Immature Gran % (Auto) 0.400 Neut % (Auto) 84.7 H Lymph % (Auto) 5.6 L [place] % (Auto) 6.9 Eos % (Auto) 2.1 Baso % (Auto) 0.3 Absolute Neuts (auto) 10.1 H Absolute Lymphs (auto) 0.67 L Total Counted Not Reportable PT INR Sodium 131 L Potassium 6.4 H* Chloride 96 L Carbon Dioxide 28.0 Anion Gap 7 BUN 47 H Creatinine 7.64 H* Estim Creat Clear Calc 10.44 Est GFR (MDRD) Af Amer 10 L Est GFR (MDRD) Non-Af 8 L BUN/Creatinine Ratio 6.2 L Glucose 274 H Lactic Acid 1.5 Calcium 9.4 Magnesium Urine Color Urine Clarity Urine pH Ur Specific [place] Urine Protein Urine Glucose (UA) Urine Ketones Urine Occult Blood Urine Nitrite Urine Bilirubin Urine Urobilinogen Ur Leukocyte Esterase Urine RBC Urine WBC Ur Squamous Epith Cells Urine Bacteria Hyaline Casts Urine Mucus 11/19/18 11/20/18 11/20/18 21:13 05:20 05:20 WBC 10.5 RBC 3.62 L Hgb 10.7 L Hct 32.8 L MCV 90.6 MCH 29.6 MCHC 32.6 RDW 14.1 RDW Differential 45.1 H Plt Count 195 MPV 9.8 Immature Gran % (Auto) 0.700 Neut % (Auto) 80.7 H Lymph % (Auto) 8.7 L [place] % (Auto) 7.6 Eos % (Auto) 2.1 Baso % (Auto) 0.2 Absolute Neuts (auto) 8.5 H Absolute Lymphs (auto) 0.91 Total Counted Not Reportable PT INR Sodium 134 L Potassium 6.6 H* Chloride 99 Carbon Dioxide 27.0 Anion Gap 8 BUN 50 H Creatinine 8.11 H* Estim Creat Clear Calc 9.83 Est GFR (MDRD) Af Amer 9 L Est GFR (MDRD) Non-Af 8 L BUN/Creatinine Ratio 6.2 L Glucose 216 H Lactic Acid Calcium 8.5 Magnesium 2.1 Urine Color Yellow Urine Clarity Clear Urine pH 8.0 Ur Specific [place] 1.010 Urine Protein 500 H Urine Glucose (UA) 1000 H Urine Ketones Negative Urine Occult Blood 25 H Urine Nitrite Negative Urine Bilirubin Negative Urine Urobilinogen Normal Ur Leukocyte Esterase Negative Urine RBC 0-5 SEEN Urine WBC 0-5 SEEN Ur Squamous Epith Cells 0 SEEN Urine Bacteria RARE Hyaline Casts 0-5 SEEN Urine Mucus 0 SEEN 11/20/18 05:20 WBC RBC Hgb Hct MCV MCH MCHC RDW RDW Differential Plt Count MPV Immature Gran % (Auto) Neut % (Auto) Lymph % (Auto) [place] % (Auto) Eos % (Auto) Baso % (Auto) Absolute Neuts (auto) Absolute Lymphs (auto) Total Counted PT 13.9 INR 1.1 Sodium Potassium Chloride Carbon Dioxide Anion Gap BUN Creatinine Estim Creat Clear Calc Est GFR (MDRD) Af Amer Est GFR (MDRD) Non-Af BUN/Creatinine Ratio Glucose Lactic Acid Calcium Magnesium Urine Color Urine Clarity Urine pH Ur Specific [place] Urine Protein Urine Glucose (UA) Urine Ketones Urine Occult Blood Urine Nitrite Urine Bilirubin Urine Urobilinogen Ur Leukocyte Esterase Urine RBC Urine WBC Ur Squamous Epith Cells Urine Bacteria Hyaline Casts Urine Mucus POC Glucose 11/20/18 11/20/18 11/19/18 06:27 05:05 23:48 POC Glucose 258 H 199 H 268 H 11/19/18 22:49 POC Glucose 269 H Assessment/Plan Patient seen by Zachariah Meza PA-C under my supervision Patient admitted with a complaint of general malaise and lethargy. He also complains of cough and a sore throat. His had similar symptoms recently. He tested positive for Strep A with rapid strep test. Patient seen and examined. Review of systems otherwise negative. o/e: Vital Signs Height 5 ft 6.5 in Weight: 279 lb 15.793 oz Weight in Pounds 280.0 lbs Pulse Ox 95 Temperature 98.4 F Pulse Rate 84 Respiratory Rate 16 Blood Pressure [BP] 160/88 Blood Pressure 157/80 Blood Pressure Position [BP] Semi-Fowlers Blood Pressure Position Sitting General: Alert, Oriented x3, Cooperative HEENT: Atraumatic, PERRLA, EOMI, Normocephalic Neck: Supple, No JVD, Negative Carotid Bruits Lungs: Clear to auscultation, Normal air movement Cardiovascular: Regular rate, No murmurs Abdomen: Bowel Sounds Present, Soft, Non Tender Extremities: No edema, Capillary Refill Less than 3 Seconds Skin: No rashes, No breakdown Musculoskeletal: No Tenderness to Palpation of Joints or Extremities; LUE AV fistula with good palpable thrill Neurological: Cranial nerves II-XII grossly intact Psych/Mental Status: Normal Affect, Appropriate, Alert and oriented to time, place, person, mood and affect Plan is for patient to have dialysis today. We will start Augmentin which will be renally dosed. Received Kayexalate for hyperkalemia and dialysis will also help with this. Rest of management as per Zachariah Meza PA-C's note which I reviewed and endorsed. Code Visit OBSV E&M: 89281 Subsequent observation care L2
--- NOTE | 2018-11-20 13:46 | PCM.CONS.R ---
Consultation - Renal 11/20/18 PCP/ Referring MD: Requesting physician: [] Primary care physician: Augie Washburn MD Reason for Consultation:: ESRD hyperkalemia - History of Present Illness History of Present Illness: The patient is a 48 year old obese M with ESRD due to diabetes, hypertension admitted for generalized weakness, fever, chills with cough, sore throat. He was arevalo cultured and started on iv antibiotics. Potassium elevated at 6.6 on admission. He is due for his dialysis today and on a TTS. He is seen at start of dialysis. He has a history of noncompliance with renal, diabetic diet. He has high interdialytic weight gains as high as 8kg. - Allergies Allergies: Allergies venom-honey bee [bee venom (honey bee)] Allergy (Verified 11/19/18 20:36) Swelling sulfamethoxazole [From Bactrim] Adverse Reaction (Verified 11/19/18 20:36) Upset Stomach trimethoprim [From Bactrim] Adverse Reaction (Verified 11/19/18 20:36) Upset Stomach - Current Medications Current Medications: Current Medications Acetaminophen (Tylenol) 650 mg PO Q6H PRN PRN PRN Reason: Mild Pain (1-3)/Temp > 100.7 F Last Admin: 11/20/18 05:00 Dose: 650 mg Albuterol Sulfate (Ventolin Aerosols) 2.5 mg INHALATION Q4H PRN PRN PRN Reason: shortness of breath/wheezing Amoxicillin/Clavulanate Potassium (Augmentin Tablet) 500 mg PO DAILYCM [facility] Aspirin (Ecotrin) 81 mg PO DAILY@0800 [facility] Atorvastatin Calcium (Lipitor) 20 mg PO QHS [facility] Calcitriol (Rocaltrol) 0.5 mcg PO DAILY [facility] Cyclobenzaprine HCl (Flexeril) 10 mg PO TID PRN PRN PRN Reason: SPASMS Dextrose (D50w Syringe) 0 gm IV X1 PRN; Protocol PRN Reason: Hypoglycemia Fluticasone Propionate (Flonase Nasal [place]) 1 spray NASAL DAILY [facility] Furosemide (Lasix) 80 mg PO BIDLX [facility] Last Admin: 11/20/18 13:23 Dose: Not Given Gabapentin (Neurontin) 300 mg PO BID [facility] Glucagon () 1 mg IM .X1 PRN PRN Reason: Hypoglycemia Guaifenesin (Robitussin Dm) 10 ml PO Q6H PRN PRN PRN Reason: CONGESTION Heparin Sodium (Porcine) (Heparin Na) 5,000 unit SC Q8 [facility] Insulin Glargine (Lantus (Bkc)) 18 units SC DINNER [facility] Insulin Human Lispro (Humalog Kwikpen (Bkc)) 0 unit SC ACHS [facility]; Protocol Last Admin: 11/20/18 06:29 Dose: 6 units Isosorbide Mononitrate (Imdur) 30 mg PO DAILY [facility] Lisinopril (Zestril) 10 mg PO DAILY [facility] Multivit/Ca Carb/B Cmplx/FA/Prenat (Nephrocaps, Renaphro) 1 capsule PO DAILY [facility] Multivitamins/Minerals (Healthy Eyes) 1 capsule PO DAILY [facility] Ondansetron HCl (Zofran) 4 mg IV Q8H PRN PRN PRN Reason: NAUSEA/VOMITING Last Admin: 11/20/18 05:00 Dose: 4 mg Pantoprazole Sodium (Protonix) 40 mg PO DAILY [facility] Pyridoxine HCl (Vitamin B-6) 100 mg PO DAILY [facility] Sevelamer Carbonate (Renvela) 800 mg PO TIDCM [facility] Last Admin: 11/20/18 13:23 Dose: Not Given Sodium Chloride () 5 - 15 ml IV UD PRN PRN Reason: SALINE FLUSH Last Admin: 11/20/18 05:00 Dose: 10 ml - Past Medical History Past Medical History (Chronic Problems): Chronic Problems (Last Reviewed 07/16/18 @ 12:34 by Claudette Cheek) Acute hyperglycemia (Chronic) Type 1 diabetes mellitus with hyperosmolarity without nonketotic hyperglycemic hyperosmolar coma (Chronic) End stage renal disease on dialysis due to type 1 diabetes mellitus (Chronic) End stage renal disease on dialysis (Chronic) Morbid obesity with BMI of 40.0-44.9, adult (Chronic) Pulmonary hypertension (Chronic) Morbid obesity with BMI of 40.0-44.9, adult (Chronic) Diabetes mellitus, type II (Chronic) Renal failure (Chronic) Noncompliance (Chronic) CHF (congestive heart failure) (Chronic) TIA (transient ischemic attack) (Chronic) Chronic respiratory failure with hypoxia (Chronic) HTN (hypertension) (Chronic) Acute on chronic diastolic CHF (congestive heart failure) (Chronic) Hyperlipidemia (Chronic) Diabetic neuropathy (Chronic) Anemia (Chronic) SELMA (obstructive sleep apnea) (Chronic) - Past Surgical History Surgical History: tonsillectomy, - - AV fistula in right arm. - Social History Smoking Status: Never smoker Alcohol: None - Family History Maternal Family History: Family History (Last Reviewed 07/16/18 @ 12:34 by Claudette Cheek) Mother Hypertension Heart disease Diabetes Father Hypertension Heart disease Brother Heart disease History Items: Diabetes, Heart Disease, Hypertension, Renal Disease Paternal Family History: Family History (Last Reviewed 07/16/18 @ 12:34 by Claudette Cheek) Mother Hypertension Heart disease Diabetes Father Hypertension Heart disease Brother Heart disease History Items: Cancer - liver, Diabetes, Heart Disease Review of Systems Constitutional: Reports: Chills, Fever, Weakness. Denies: Anorexia Cardiovascular: Reports: Edema. Denies: Chest Pain Respiratory: Reports: Cough, Shortness of Breath, Sputum production - yellow Gastrointestinal: Reports: Nausea. Denies: Abdominal Pain, Diarrhea, Vomiting Genitourinary: Denies: Dysuria Neurological: Reports: - - weakness Hematologic/ Lymphatic: Reports: Anemia. Denies: Hx of blood clot Patient Problems: Active and Suspected Problems (Last Reviewed 07/16/18 @ 12:34 by Claudette Cheek) Hyperkalemia (Acute) Fever, unknown origin (Acute) Hyperglycemia due to type 1 diabetes mellitus (Acute) Accelerated hypertension (Acute) - Physical Exam General: Alert, Oriented x3, Cooperative, No apparent distress Lungs: Clear to auscultation Cardiovascular: Regular rate Abdomen: Bowel Sounds Present, Soft, Non Tender, Non-Distended, Obese Extremities: Edema - mild Skin: No rashes Musculoskeletal: No Muscle Wasting Psych/Mental Status: Normal Affect, Alert and oriented to time, place, person, mood and affect Vital Signs Temp Pulse Resp BP Pulse Ox 98.4 F 84 16 157/80 H 95 11/20/18 07:49 11/20/18 10:54 11/20/18 07:49 11/20/18 07:49 11/20/18 07:49 Oxygen Flow Rate (L/min) 2 Oxygen Delivery Method Nasal Cannula Weight: 127 kg Body Mass Index (BMI) 44.3 Finger Stick Blood Glucose 191 Intake and Output for Last 24 Hours 11/18/18 11/19/18 11/20/18 23:59 23:59 23:59 Intake Total 599 / 599 Balance 599 / 599 Microbiology Past 72 Hours 11/20/18 10:11 Group A Streptococcus Rapid Screen - Final Mucosa - Throat Streptococcus Group A Laboratory Tests Past 24 Hrs 11/19/18 11/19/18 11/19/18 20:50 20:50 20:50 WBC 12.0 H RBC 3.83 L Hgb 11.4 L Hct 34.4 L MCV 89.8 MCH 29.8 MCHC 33.1 RDW 14.0 RDW Differential 45.8 H Plt Count 210 MPV 9.8 Immature Gran % (Auto) 0.400 Neut % (Auto) 84.7 H Lymph % (Auto) 5.6 L [place] % (Auto) 6.9 Eos % (Auto) 2.1 Baso % (Auto) 0.3 Absolute Neuts (auto) 10.1 H Absolute Lymphs (auto) 0.67 L Total Counted Not Reportable PT INR Sodium 131 L Potassium 6.4 H* Chloride 96 L Carbon Dioxide 28.0 Anion Gap 7 BUN 47 H Creatinine 7.64 H* Estim Creat Clear Calc 10.44 Est GFR (MDRD) Af Amer 10 L Est GFR (MDRD) Non-Af 8 L BUN/Creatinine Ratio 6.2 L Glucose 274 H Lactic Acid 1.5 Calcium 9.4 Magnesium Urine Color Urine Clarity Urine pH Ur Specific Telephone Urine Protein Urine Glucose (UA) Urine Ketones Urine Occult Blood Urine Nitrite Urine Bilirubin Urine Urobilinogen Ur Leukocyte Esterase Urine RBC Urine WBC Ur Squamous Epith Cells Urine Bacteria Hyaline Casts Urine Mucus 11/19/18 11/20/18 11/20/18 21:13 05:20 05:20 WBC 10.5 RBC 3.62 L Hgb 10.7 L Hct 32.8 L MCV 90.6 MCH 29.6 MCHC 32.6 RDW 14.1 RDW Differential 45.1 H Plt Count 195 MPV 9.8 Immature Gran % (Auto) 0.700 Neut % (Auto) 80.7 H Lymph % (Auto) 8.7 L [place] % (Auto) 7.6 Eos % (Auto) 2.1 Baso % (Auto) 0.2 Absolute Neuts (auto) 8.5 H Absolute Lymphs (auto) 0.91 Total Counted Not Reportable PT INR Sodium 134 L Potassium 6.6 H* Chloride 99 Carbon Dioxide 27.0 Anion Gap 8 BUN 50 H Creatinine 8.11 H* Estim Creat Clear Calc 9.83 Est GFR (MDRD) Af Amer 9 L Est GFR (MDRD) Non-Af 8 L BUN/Creatinine Ratio 6.2 L Glucose 216 H Lactic Acid Calcium 8.5 Magnesium 2.1 Urine Color Yellow Urine Clarity Clear Urine pH 8.0 Ur Specific Telephone 1.010 Urine Protein 500 H Urine Glucose (UA) 1000 H Urine Ketones Negative Urine Occult Blood 25 H Urine Nitrite Negative Urine Bilirubin Negative Urine Urobilinogen Normal Ur Leukocyte Esterase Negative Urine RBC 0-5 SEEN Urine WBC 0-5 SEEN Ur Squamous Epith Cells 0 SEEN Urine Bacteria RARE Hyaline Casts 0-5 SEEN Urine Mucus 0 SEEN 11/20/18 05:20 WBC RBC Hgb Hct MCV MCH MCHC RDW RDW Differential Plt Count MPV Immature Gran % (Auto) Neut % (Auto) Lymph % (Auto) [place] % (Auto) Eos % (Auto) Baso % (Auto) Absolute Neuts (auto) Absolute Lymphs (auto) Total Counted PT 13.9 INR 1.1 Sodium Potassium Chloride Carbon Dioxide Anion Gap BUN Creatinine Estim Creat Clear Calc Est GFR (MDRD) Af Amer Est GFR (MDRD) Non-Af BUN/Creatinine Ratio Glucose Lactic Acid Calcium Magnesium Urine Color Urine Clarity Urine pH Ur Specific Telephone Urine Protein Urine Glucose (UA) Urine Ketones Urine Occult Blood Urine Nitrite Urine Bilirubin Urine Urobilinogen Ur Leukocyte Esterase Urine RBC Urine WBC Ur Squamous Epith Cells Urine Bacteria Hyaline Casts Urine Mucus POC Glucose 11/20/18 11/20/18 11/19/18 06:27 05:05 23:48 POC Glucose 258 H 199 H 268 H 11/19/18 22:49 POC Glucose 269 H Clinical Impression(s) from Imaging Studies Chest X-Ray 11/19/18 20:55 IMPRESSION: Pulmonary arterial prominence without chayo edema. Electronically Signed: Rayray Hidalgo, at 21:31 EDT Tel , Service support , Brain CT 11/20/18 09:58 IMPRESSION: No acute intracranial process. Electronically Signed: Bladimir Crenshaw MD at 15:30 EDT Tel , Service support , Assessment/Plan All Active Problems (Last Reviewed 07/16/18 @ 12:34 by Claudette Cheek) Hyperkalemia (Acute) Acute hyperkalemia (Acute) Fluid overload (Acute) Hypertension complications (Acute) Fever, unknown origin (Acute) Hyperglycemia due to type 1 diabetes mellitus (Acute) Accelerated hypertension (Acute) Shortness of breath (Acute) Left leg cellulitis (Acute) SIRS (systemic inflammatory response syndrome) (Acute) Periapical abscess (Acute) Anasarca (Acute) Edema (Acute) Abnormal stress test (Acute) Muscle cramp, nocturnal (Acute) Chest pain (Acute) Nausea and vomiting (Acute) Fever and chills (Acute) Malaise and fatigue (Acute) Preop cardiovascular exam (Acute) Acute diastolic (congestive) heart failure (Acute) Acute respiratory failure with hypoxia (Acute) 1. ESRD HD today and qTTS usual schedule 2. Hyperkalemia correct with dialysis 3. Fever, cough, cx pending. iv antibx per primary service 4. Hx noncompliance with high fluid gains. Fluid removal as tolerated 5. Hx noncompliance with renal diet, binders. 6. HTN stable 7. DM2 with noncompliance with diabetic diet
[2018-11-20 15:01] LABS: Bedside Glucose 229 mg/dL (70-110)
--- NOTE | 2018-11-20 15:08 | CHAPLAIN ---
Type of Pastoral Visit _x__ Initial Visit ___ Follow-up Visit ___ On-call Visit ___ General Patient Visit ___ Spiritual Assessment ___ Family Conference ___ Bereavement ___ Rapid Response ___ Code Blue ___ Other (describe below) Pastoral Care Referral From _x__ Patient ___ Family ___ Nurse ___ Physician ___ Utility Porter ___ Rebar Bender ___ Other (describe below) Sacrament/Intervention ___ Active listening ___ Anointing ___ Restorationist ___ Bereavement ___ Communion ___ Patricia exploration ___ ___ Life review ___ Prayer ___ Reconciliation ___ Sacrament of Sick _x__ Supportive presence ___ Wedding ___ Other (describe below) Pastoral Comments
[2018-11-20] MEDS: Aspirin E.C. 81 MG Tablet PO (16:08)
[2018-11-20] MEDS: Fluticasone 0.05% 1 SPRAY NASAL.SRY NASAL (16:08)
--- NOTE | 2018-11-20 16:15 | DIALYSIS ---
Hemdialysis x 4.15 hours completed. Pt tolerated well, but lethargic post tx. Fluid balance -4500ml. [place] pulled. Hemostasis achieved. Dressing applied. Report given to AMIRAH Brasher. Pt stable at this time.
[2018-11-20] MEDS: Lisinopril 10 MG Tablet PO (16:17)
[2018-11-20] MEDS: Furosemide 80 MG Tablet PO (16:17)
[2018-11-20] MEDS: Pyridoxine HCl 100 MG Tablet PO (16:17)
[2018-11-20] MEDS: SEVELAMER CARBONATE 800 MG TABLET PO (16:17)
[2018-11-20] MEDS: Calcitriol 0.25 MCG Capsule 0.5 MCG PO (16:18)
[2018-11-20] MEDS: Pantoprazole Sodium 40 MG Tablet PO (16:18)
[2018-11-20] MEDS: Isosorbide Mononitrate 30 MG Tablet PO (16:18)
[2018-11-20] MEDS: Folic Acid/Vitamin B Comp W-C 1 Capsule 1 CAP PO (16:18)
[2018-11-20] MEDS: Multivitamin (Healthy Eyes) Capsule 1 CAP PO (16:18)
[2018-11-20 16:22] LABS: Anion Gap 23 (5-15); BUN 22 mg/dL (7-18); BUN/Creat Ratio 5.4 RATIO (10-20); Chloride 98 mmol/L (98-107); EST Glomerular Filtration Rate 17 mL/min (>60); Est Glom Filt Rate - Afr Amer 20 mL/min (>60); Estimated Creatinine Clearance 19.45 ml/min; Glucose 255 mg/dL (74-106); Potassium 5.3 mmol/L (3.5-5.1); Sodium Level 134 mmol/L (136-145)
[2018-11-20] MEDS: Heparin Injection (Vial) 5,000 UNIT/ML VIAL 5000 UNIT SC ×2 (16:28→21:17)
[2018-11-20 16:36] LABS: Bedside Glucose 264 mg/dL (70-110)
[2018-11-20] MEDS: Atorvastatin Calcium 20 MG Tablet PO (21:17)
[2018-11-20 21:26] LABS: Bedside Glucose 222 mg/dL (70-110)
[2018-11-21] VITALS (7 sets, daily range): BP systolic 100–151; BP diastolic 51–68; PULSE 71–83; RESP 16–18; TEMP 36.7–37.3; O2SAT 93–97
[2018-11-21 06:16] LABS: Absolute Lymphocyte Count 1.18 X10^3/ul (0.83-4.51); Absolute Neutrophil Count 4.7 X10^3/uL (2.0-7.7); Basophil# 0.04 X10^3/uL; Basophil% 0.5 % (0-1); Eosinophil# 0.34 X10^3/uL; Eosinophils% 4.6 % (0-5); Hematocrit 31.2 % (40-54); Lymphocyte # 1.18 X10^3/ul (4.0); Mean Corp Hgb Conc 32.1 g/gl (32-36); Mean Corpuscular Hgb 29.7 pg (27.0-32.0); Mean Corpuscular Volume 92.6 fL (80-94); Monocyte# 1.07 X10^3/uL; Monocyte% 14.5 % (0-10); Neutrophil # 4.66 X10^3/uL (2.7-7.7); Neutrophil % 63.3 % (47-70); Platelet Count 186 K/mm3 (150-450); RBC Distribution Width CV 14.4 % (11.6-14.6); RBC Distribution Width SD 47.1 fl (35.1-43.9); Red Blood Count 3.37 M/mm3 (4.6-6.2); White Blood Count 7.4 K/mm3 (4.4-11.0)
[2018-11-21 06:18] LABS: POSITIVE COUNT NO; POSITIVE DIFFERENTIAL NO; POSITIVE MORPHOLOGY NO
[2018-11-21 06:34] LABS: Anion Gap 4 (5-15); BUN 30 mg/dL (7-18); BUN/Creat Ratio 4.7 RATIO (10-20); Calcium,Total 7.8 mg/dL (8.5-10.1); Chloride 99 mmol/L (98-107); Creatinine, Serum 6.36 mg/dL (0.70-1.30); EST Glomerular Filtration Rate 10 mL/min (>60); Est Glom Filt Rate - Afr Amer 12 mL/min (>60); Estimated Creatinine Clearance 12.54 ml/min; Glucose 127 mg/dL (74-106); Phosphorus 6.2 mg/dL (2.5-4.9); Potassium 5.2 mmol/L (3.5-5.1); Sodium Level 134 mmol/L (136-145)
[2018-11-21] MEDS: Heparin Injection (Vial) 5,000 UNIT/ML VIAL 5000 UNIT SC (06:41)
[2018-11-21 06:50] LABS: Bedside Glucose 115 mg/dL (70-110)
[2018-11-21] MEDS: Fluticasone 0.05% 1 SPRAY NASAL.SRY NASAL (07:55)
[2018-11-21] MEDS: SEVELAMER CARBONATE 800 MG TABLET PO (07:55)
[2018-11-21] MEDS: Aspirin E.C. 81 MG Tablet PO (07:55)
[2018-11-21] MEDS: Folic Acid/Vitamin B Comp W-C 1 Capsule 1 CAP PO (07:57)
[2018-11-21] MEDS: Pantoprazole Sodium 40 MG Tablet PO (07:57)
[2018-11-21] MEDS: Calcitriol 0.25 MCG Capsule 0.5 MCG PO (07:57)
[2018-11-21] MEDS: Pyridoxine HCl 100 MG Tablet PO (07:58)
[2018-11-21] MEDS: Multivitamin (Healthy Eyes) Capsule 1 CAP PO (07:59)
[2018-11-21] MEDS: Furosemide 80 MG Tablet PO (07:59)
--- NOTE | 2018-11-21 09:08 | PCM.PN.REN ---
Patient Problems: Active and Suspected Problems (Last Reviewed 07/16/18 @ 12:34 by Claudette Cheek) Hyperkalemia (Acute) Fever, unknown origin (Acute) Hyperglycemia due to type 1 diabetes mellitus (Acute) Accelerated hypertension (Acute) Subjective: no shortness of breath or edema. Sore throat better, strep on cx. Oxygenation stable. Potassium 5.3. Increase binder dose to 3 with meals. Urine c/s negative Blood cx pending. - Physical Exam General: Alert, Oriented x3, Cooperative, No apparent distress Lungs: Clear to auscultation Cardiovascular: Regular rate Abdomen: Soft, Obese Extremities: No edema Vital Signs Temp Pulse Resp BP Pulse Ox 98.3 F 77 18 100/51 L 93 11/21/18 07:47 11/21/18 07:47 11/21/18 07:47 11/21/18 07:47 11/21/18 07:47 Oxygen Flow Rate (L/min) 2 Oxygen Delivery Method Room Air Weight: 122.2 kg Body Mass Index (BMI) 44.3 Finger Stick Blood Glucose 191 Intake and Output for Last 24 Hours 11/19/18 11/20/18 11/21/18 23:59 23:59 23:59 Intake Total 859 / 859 180 / 180 Output Total 4500 / 4500 Balance -3641 / -3641 180 / 180 Microbiology Past 72 Hours 11/20/18 10:11 Group A Streptococcus Rapid Screen - Final Mucosa - Throat Streptococcus Group A Laboratory Tests Past 24 Hrs 11/20/18 11/20/18 11/21/18 15:15 15:45 05:45 WBC 7.4 RBC 3.37 L Hgb 10.0 L Hct 31.2 L MCV 92.6 MCH 29.7 MCHC 32.1 RDW 14.4 RDW Differential 47.1 H Plt Count 186 MPV 10.0 Immature Gran % (Auto) 1.100 H Neut % (Auto) 63.3 Lymph % (Auto) 16.0 L [place] % (Auto) 14.5 H Eos % (Auto) 4.6 Baso % (Auto) 0.5 Absolute Neuts (auto) 4.7 Absolute Lymphs (auto) 1.18 Total Counted Not Reportable Sodium 134 L Potassium 5.3 H Chloride 98 Carbon Dioxide 13.0 L Anion Gap 23 H BUN 22 H Creatinine 4.10 H Estim Creat Clear Calc 19.45 Est GFR (MDRD) Af Amer 20 L Est GFR (MDRD) Non-Af 17 L BUN/Creatinine Ratio 5.4 L Glucose 255 H Calcium TNP Phosphorus Ammonia 26.0 11/21/18 05:45 WBC RBC Hgb Hct MCV MCH MCHC RDW RDW Differential Plt Count MPV Immature Gran % (Auto) Neut % (Auto) Lymph % (Auto) [place] % (Auto) Eos % (Auto) Baso % (Auto) Absolute Neuts (auto) Absolute Lymphs (auto) Total Counted Sodium 134 L Potassium 5.2 H Chloride 99 Carbon Dioxide 31.0 Anion Gap 4 L BUN 30 H Creatinine 6.36 H Estim Creat Clear Calc 12.54 Est GFR (MDRD) Af Amer 12 L Est GFR (MDRD) Non-Af 10 L BUN/Creatinine Ratio 4.7 L Glucose 127 H Calcium 7.8 L Phosphorus 6.2 H Ammonia POC Glucose 11/21/18 11/20/18 11/20/18 06:34 21:13 16:15 POC Glucose 115 H 222 H 264 H 11/20/18 14:32 POC Glucose 229 H Medical Necessity - Tobacco Use Smoking Status: Never smoker Assessment/Plan All Active Problems (Last Reviewed 07/16/18 @ 12:34 by Claudette Cheek) Hyperkalemia (Acute) Acute hyperkalemia (Acute) Fluid overload (Acute) Hypertension complications (Acute) Fever, unknown origin (Acute) Hyperglycemia due to type 1 diabetes mellitus (Acute) Accelerated hypertension (Acute) Shortness of breath (Acute) Left leg cellulitis (Acute) SIRS (systemic inflammatory response syndrome) (Acute) Periapical abscess (Acute) Anasarca (Acute) Edema (Acute) Abnormal stress test (Acute) Muscle cramp, nocturnal (Acute) Chest pain (Acute) Nausea and vomiting (Acute) Fever and chills (Acute) Malaise and fatigue (Acute) Preop cardiovascular exam (Acute) Acute diastolic (congestive) heart failure (Acute) Acute respiratory failure with hypoxia (Acute) 1. ESRD HD qTTS 2. Hyperkalemia correct with dialysis. follow low K diet 3. Fever, cough, bld cx pending. Strep throat 4. Hx noncompliance with high fluid gains. F 5. Hx noncompliance with renal diet, binders. Increase binders to 3 with each meal for hyperphosphatemia 6. HTN stable 7. DM2 with noncompliance with diabetic diet 8. Morbid obesity
--- NOTE | 2018-11-21 10:41 | PCM.DC ---
- Discharge Diagnoses Current Active Problems: Current Active and Chronic Problems (Last Reviewed 07/16/18 @ 12:34 by Claudette Cheek) Hyperkalemia (Acute) Fever, unknown origin (Acute) Hyperglycemia due to type 1 diabetes mellitus (Acute) End stage renal disease on dialysis (Chronic) Accelerated hypertension (Acute) You will use the following diet at home:: Renal (restricted protein/sodium) Your food should be the consistency of: Regular Your liquids should be the consistency of: Regular/Thin Discharge Activity: Return to Normal Activity Allergies/Adverse Reactions: Allergies venom-honey bee [bee venom (honey bee)] Allergy (Verified 11/19/18 20:36) Swelling sulfamethoxazole [From Bactrim] Adverse Reaction (Verified 11/19/18 20:36) Upset Stomach trimethoprim [From Bactrim] Adverse Reaction (Verified 11/19/18 20:36) Upset Stomach Medications to take at Discharge Atorvastatin Calcium [Lipitor] 20 mg PO QHS 10/11/17 Lisinopril [Zestril] 10 mg PO BID 10/11/17 Omeprazole 40 mg PO DAILY 10/11/17 Pyridoxine HCl [Vitamin B-6] 100 mg PO DAILY 10/11/17 Sevelamer HCl [Renagel] 800 mg PO TID 10/11/17 Vits A,C,E/Lutein/Minerals [Ocuvite with Lutein Tablet] 1 ea PO DAILY 10/11/17 Folic Acid/Vitamin B Comp W-C [Nephrocaps, Renaphro] 1 cap PO DAILY 10/27/17 FreeStyle Lite Strips See Dose Instructions .ROUTE .MEDSUPPLY #100 ea NS 11/29/17 albuterol sulfate HFA 90 mcg/actuation aerosol inhaler 2 puff INHALATION Q4H PRN #18 g 02/26/18 Aspirin E.C. [Ecotrin] 81 mg PO DAILY 03/23/18 Cyclobenzaprine HCl 10 mg PO TID PRN PRN 03/23/18 Fluticasone 0.05% [Flonase Nasal [place]] 1 spray NASAL DAILY 03/23/18 Furosemide [Lasix] 80 mg PO BID 03/23/18 Gabapentin [Neurontin] 300 mg PO BID 03/23/18 Calcitriol [Rocaltrol] 0.5 mcg PO DAILY 04/17/18 insulin regular human U- 500concentrate 500 unit/mL subcutaneous soln See Rx Instructions SC DAILY #20 ml 05/17/18 FreeStyle Venkatesh 14 Day [place] See Dose Instructions .ROUTE .MEDSUPPLY #1 ea NS 07/04/18 isosorbide mononitrate ER 30 mg tablet,extended release 24 hr 30 mg PO DAILY #30 tab 07/24/18 FreeStyle Venkatesh 14 Day Sensor kit See Dose Instructions .ROUTE .MEDSUPPLY #2 ea NS 08/27/18 Acetaminophen [Tylenol Tablet] 650 mg PO Q6H PRN PRN tablet 09/19/18 Amoxicillin [Amoxil] 500 mg PO DAILY #9 capsule 11/21/18 Guaifenesin Dm [Robitussin Dm] 10 ml PO Q6H PRN PRN #1 bottle 11/21/18 The following prescriptions were given: Amoxicillin [Amoxil] 500 mg PO DAILY #9 capsule Guaifenesin Dm [Robitussin Dm] 10 ml PO Q6H PRN PRN #1 bottle PRN Reason: CONGESTION Primary Care Physician: Augie Washburn MD [Primary Care Provider] - Please follow up with your Primary Care Physician in: 1-2 weeks Test Results: Test results from this visit will be discussed in further detail at your follow-up appointment, if applicable. Please Follow Up With: Anca Gregorio DO When: as directed Proposed Discharge Date: 11/21/18
--- NOTE | 2018-11-21 10:58 | CASEMGMT ---
This AMIRAH BAUER to room with GARCIA form at this time, explanation done-pt voices understanding, and consents to assessment at this time. Original to chart and copy to pt at this time. Pt voices no further questions/concerns/needs at this time. S[place]en AMIRAH BAUER
[2018-11-21 11:31] LABS: Bedside Glucose 302 mg/dL (70-110)
[2018-11-21] MEDS: Isosorbide Mononitrate 30 MG Tablet PO (12:32)
[2018-11-21] MEDS: Lisinopril 10 MG Tablet PO (12:32)
[2018-11-21] MEDS: SEVELAMER CARBONATE 800 MG TABLET 2400 MG PO (12:33)
[2018-11-21] MEDS: Insulin Lispro 100 UNIT/ML INSULN.PEN SC (12:35)
--- NOTE | 2018-11-21 13:26 | PCM.DC.SUM ---
<Zachariah Meza - Last Filed: 11/21/18 13:26> Discharge Date and Diagnosis Date of Admission: 11/19/18 Date of Discharge: 11/21/18 - Primary Discharge Diagnosis Acute sepsis 2/2 strep pharyngitis Hyperkalemia 2/2 ESRD Pulmonary HTN T2DM SELMA chronic hypoxic respiratory failure diastolic CHF - Secondary Discharge Diagnosis Chronic Problems (Last Reviewed 07/16/18 @ 12:34 by Claudette Cheek) Acute hyperglycemia (Chronic) Type 1 diabetes mellitus with hyperosmolarity without nonketotic hyperglycemic hyperosmolar coma (Chronic) End stage renal disease on dialysis due to type 1 diabetes mellitus (Chronic) End stage renal disease on dialysis (Chronic) Morbid obesity with BMI of 40.0-44.9, adult (Chronic) Pulmonary hypertension (Chronic) Morbid obesity with BMI of 40.0-44.9, adult (Chronic) Diabetes mellitus, type II (Chronic) Renal failure (Chronic) Noncompliance (Chronic) CHF (congestive heart failure) (Chronic) TIA (transient ischemic attack) (Chronic) Chronic respiratory failure with hypoxia (Chronic) HTN (hypertension) (Chronic) Acute on chronic diastolic CHF (congestive heart failure) (Chronic) Hyperlipidemia (Chronic) Diabetic neuropathy (Chronic) Anemia (Chronic) SELMA (obstructive sleep apnea) (Chronic) Hospital Course and Treatment Imaging Results: RAD/Chest 1 View (Portable) IMPRESSION: Pulmonary arterial prominence without chayo edema. CT/Brain/Head without Contrast IMPRESSION: No acute intracranial process. Consults: Dr. Gregorio - nephrology Operations: None Procedures: Dialysis Summary of Care Provided: Hospital Course: The patient is a 48 year old M with past medical history of end-stage renal disease, pulmonary hypertension and diastolic congestive heart failure, chronic hypoxic respiratory failure, type 2 diabetes, obesity, who presents to the emergency room with a chief complaint of fever for the last day. This was associated with nausea and vomiting, cough, sore throat, rhinitis, generalized malaise, dizziness, and fatigue. In the emergency room he did have a temperature up to 101.5, meeting SIRS criteria with an elevated white blood cell count, and hyperkalemia. Lactate negative. Chest x-ray was negative. He was admitted for fever of unknown origin, and hyperkalemia. Nephrology was consulted. He underwent dialysis the following day. With his upper respiratory symptoms a rapid strep was assessed, was positive for GIS. He was started on ampicillin IV for sepsis 2/2 strep pharyngitis. Following his dialysis session he was extremely lethargic, confused, dizzy, and tremulous. A CT of the head was obtained which was negative. I discussed this response with Dr. Gregorio who noted that this has occurred previously after dialysis sessions when significant amounts of fluid have been removed. He was transitioned to oral amoxicillin and will complete 10 days worth for strep pharyngitis. He was discharged home in stable condition and will need to follow-up with Dr. Gregorio as directed, follow-up with his PCP in 1 to 2 weeks. This patient was seen by Zachariah Meza PA-C under the supervision of Doctor Didier. [] - Physical Exam General: Alert, Oriented x3, Cooperative HEENT: Atraumatic, PERRLA, EOMI, Normocephalic Neck: Supple, No JVD, Negative Carotid Bruits Lungs: Clear to auscultation, Normal air movement Cardiovascular: Regular rate, No murmurs Abdomen: Bowel Sounds Present, Soft, Non Tender Extremities: No edema, Capillary Refill Less than 3 Seconds Skin: No rashes, No breakdown Musculoskeletal: No Tenderness to Palpation of Joints or Extremities Neurological: Cranial nerves II-XII grossly intact Psych/Mental Status: Normal Affect, Appropriate, Alert and oriented to time, place, person, mood and affect Vital Signs Temp Pulse Resp BP Pulse Ox 99.0 F 83 18 121/61 H 97 11/21/18 12:38 11/21/18 12:38 11/21/18 12:38 11/21/18 12:38 11/21/18 12:38 Oxygen Flow Rate (L/min) 2 Oxygen Delivery Method Room Air Weight: 269 lb 6.478 oz Body Mass Index (BMI) 44.3 Finger Stick Blood Glucose 191 Intake and Output for Last 24 Hours 11/19/18 11/20/18 11/21/18 23:59 23:59 23:59 Intake Total 859 / 859 180 / 180 Output Total 4500 / 4500 Balance -3641 / -3641 180 / 180 Microbiology Past 72 Hours 11/19/18 21:13 Urine Culture - Preliminary Urine, Clean Catch Culture exhibits no growth. 11/20/18 10:11 Group A Streptococcus Rapid Screen - Final Mucosa - Throat Streptococcus Group A Laboratory Tests Past 24 Hrs 11/20/18 11/20/18 11/21/18 15:15 15:45 05:45 WBC 7.4 RBC 3.37 L Hgb 10.0 L Hct 31.2 L MCV 92.6 MCH 29.7 MCHC 32.1 RDW 14.4 RDW Differential 47.1 H Plt Count 186 MPV 10.0 Immature Gran % (Auto) 1.100 H Neut % (Auto) 63.3 Lymph % (Auto) 16.0 L [place] % (Auto) 14.5 H Eos % (Auto) 4.6 Baso % (Auto) 0.5 Absolute Neuts (auto) 4.7 Absolute Lymphs (auto) 1.18 Total Counted Not Reportable Sodium 134 L Potassium 5.3 H Chloride 98 Carbon Dioxide 13.0 L Anion Gap 23 H BUN 22 H Creatinine 4.10 H Estim Creat Clear Calc 19.45 Est GFR (MDRD) Af Amer 20 L Est GFR (MDRD) Non-Af 17 L BUN/Creatinine Ratio 5.4 L Glucose 255 H Calcium TNP Phosphorus Ammonia 26.0 11/21/18 05:45 WBC RBC Hgb Hct MCV MCH MCHC RDW RDW Differential Plt Count MPV Immature Gran % (Auto) Neut % (Auto) Lymph % (Auto) [place] % (Auto) Eos % (Auto) Baso % (Auto) Absolute Neuts (auto) Absolute Lymphs (auto) Total Counted Sodium 134 L Potassium 5.2 H Chloride 99 Carbon Dioxide 31.0 Anion Gap 4 L BUN 30 H Creatinine 6.36 H Estim Creat Clear Calc 12.54 Est GFR (MDRD) Af Amer 12 L Est GFR (MDRD) Non-Af 10 L BUN/Creatinine Ratio 4.7 L Glucose 127 H Calcium 7.8 L Phosphorus 6.2 H Ammonia POC Glucose 11/21/18 11/21/18 11/20/18 11:27 06:34 21:13 POC Glucose 302 H 115 H 222 H 11/20/18 11/20/18 16:15 14:32 POC Glucose 264 H 229 H Discharge Diet: Renal Diet Discharge Activity: Return to Normal Activity Home Medications: Medications to take at Discharge Atorvastatin Calcium [Lipitor] 20 mg PO QHS 10/11/17 Lisinopril [Zestril] 10 mg PO BID 10/11/17 Omeprazole 40 mg PO DAILY 10/11/17 Pyridoxine HCl [Vitamin B-6] 100 mg PO DAILY 10/11/17 Sevelamer HCl [Renagel] 800 mg PO TID 10/11/17 Vits A,C,E/Lutein/Minerals [Ocuvite with Lutein Tablet] 1 ea PO DAILY 10/11/17 Folic Acid/Vitamin B Comp W-C [Nephrocaps, Renaphro] 1 cap PO DAILY 10/27/17 FreeStyle Lite Strips See Dose Instructions .ROUTE .MEDSUPPLY #100 ea NS 11/29/17 albuterol sulfate HFA 90 mcg/actuation aerosol inhaler 2 puff INHALATION Q4H PRN #18 g 02/26/18 Aspirin E.C. [Ecotrin] 81 mg PO DAILY 03/23/18 Cyclobenzaprine HCl 10 mg PO TID PRN PRN 03/23/18 Fluticasone 0.05% [Flonase Nasal [place]] 1 spray NASAL DAILY 03/23/18 Furosemide [Lasix] 80 mg PO BID 03/23/18 Gabapentin [Neurontin] 300 mg PO BID 03/23/18 Calcitriol [Rocaltrol] 0.5 mcg PO DAILY 04/17/18 insulin regular human U- 500concentrate 500 unit/mL subcutaneous soln See Rx Instructions [place] DAILY #20 ml 05/17/18 FreeStyle Venkatesh 14 Day [place] See Dose Instructions .ROUTE .MEDSUPPLY #1 ea NS 07/04/18 isosorbide mononitrate ER 30 mg tablet,extended release 24 hr 30 mg PO DAILY #30 tab 07/24/18 FreeStyle Venkatesh 14 Day Sensor kit See Dose Instructions .ROUTE .MEDSUPPLY #2 ea NS 08/27/18 Acetaminophen [Tylenol Tablet] 650 mg PO Q6H PRN PRN tablet 09/19/18 Amoxicillin [Amoxil] 500 mg PO DAILY #9 capsule 11/21/18 Guaifenesin Dm [Robitussin Dm] 10 ml PO Q6H PRN PRN #1 bottle 11/21/18 Following Prescrptions Were Given to Patient: Amoxicillin [Amoxil] 500 mg PO DAILY #9 capsule Guaifenesin Dm [Robitussin Dm] 10 ml PO Q6H PRN PRN #1 bottle PRN Reason: CONGESTION Primary Care Physician: Augie Washburn MD [Primary Care Provider] - Please follow up with your Primary Care Physician in: 1-2 weeks Please Follow Up With: Anca Gregorio DO When: as directed Disposition: Home Patient Condition:: Stable Medical Necessity - Tobacco Use Smoking Status: Never smoker Meaningful Use Info Meaningful Use Diagnoses (Choose all that apply): None applicable <Pamela Velásquez - Last Filed: 11/21/18 14:15> Discharge Date and Diagnosis - Secondary Discharge Diagnosis Chronic Problems (Last Reviewed 07/16/18 @ 12:34 by Claudette Cheek) Acute hyperglycemia (Chronic) Type 1 diabetes mellitus with hyperosmolarity without nonketotic hyperglycemic hyperosmolar coma (Chronic) End stage renal disease on dialysis due to type 1 diabetes mellitus (Chronic) End stage renal disease on dialysis (Chronic) Morbid obesity with BMI of 40.0-44.9, adult (Chronic) Pulmonary hypertension (Chronic) Morbid obesity with BMI of 40.0-44.9, adult (Chronic) Diabetes mellitus, type II (Chronic) Renal failure (Chronic) Noncompliance (Chronic) CHF (congestive heart failure) (Chronic) TIA (transient ischemic attack) (Chronic) Chronic respiratory failure with hypoxia (Chronic) HTN (hypertension) (Chronic) Acute on chronic diastolic CHF (congestive heart failure) (Chronic) Hyperlipidemia (Chronic) Diabetic neuropathy (Chronic) Anemia (Chronic) SELMA (obstructive sleep apnea) (Chronic) Hospital Course and Treatment Summary of Care Provided: Patient seen by Zachariah Meza PA-C under my supervision The patient is a 48 year old M admitted with a complaint of fever of one day duration, with nausea, vomiting, cough and sore throat as well as rhinitis. He had an elevated temperature of 102 Fahrenheit and chest x-ray showed normal evidence of acute pneumonia. On admission, potassium was elevated at 6.4. He did have a history of end-stage renal disease and was due for dialysis the day after admission. Nephrology was consulted for dialysis. Throat swab done was positive for strep and patient was started on IV ampicillin. CT of the head done was also negative. Patient remained stable and was discharged home with a 10-day prescription for p.o. amoxicillin. He is to follow-up with his primary care doctor in 1 week and also to follow-up with nephrology. Patient seen and examined prior to discharge. He had no complaints and felt well. Review of systems otherwise negative. Labs and vitals reviewed. Home medication reviewed and reconciled. O/E: Vital Signs Height 5 ft 6.5 in Weight: 269 lb 6.478 oz Weight in Pounds 269.4 lbs Pulse Ox 97 Temperature 99.0 F Pulse Rate 83 Respiratory Rate 18 Blood Pressure [BP] 160/88 Blood Pressure 121/61 Blood Pressure Position [BP] Semi-Fowlers Blood Pressure Position Sitting General: Alert, Oriented x3, Cooperative HEENT: Atraumatic, PERRLA, EOMI, Normocephalic Neck: Supple, No JVD, Negative Carotid Bruits Lungs: Clear to auscultation, Normal air movement Cardiovascular: Regular rate, No murmurs Abdomen: Bowel Sounds Present, Soft, Non Tender Extremities: No edema, Capillary Refill Less than 3 Seconds Skin: No rashes, No breakdown Musculoskeletal: No Tenderness to Palpation of Joints or Extremities; LUE AV fistula with good palpable thrill Neurological: Cranial nerves II-XII grossly intact Psych/Mental Status: Normal Affect, Appropriate, Alert and oriented to time, place, person, mood and affect [] Rest of management as per Zachariah Meza PA-C's note which I have reviewed and endorsed. - Physical Exam Vital Signs Temp Pulse Resp BP Pulse Ox 99.0 F 83 18 121/61 H 97 11/21/18 12:38 11/21/18 12:38 11/21/18 12:38 11/21/18 12:38 11/21/18 12:38 Oxygen Flow Rate (L/min) 2 Oxygen Delivery Method Room Air Weight: 269 lb 6.478 oz Body Mass Index (BMI) 44.3 Finger Stick Blood Glucose 191 Intake and Output for Last 24 Hours 11/19/18 11/20/18 11/21/18 23:59 23:59 23:59 Intake Total 859 / 859 180 / 180 Output Total 4500 / 4500 Balance -3641 / -3641 180 / 180 Microbiology Past 72 Hours 11/19/18 21:13 Urine Culture - Preliminary Urine, Clean Catch Culture exhibits no growth. 11/20/18 10:11 Group A Streptococcus Rapid Screen - Final Mucosa - Throat Streptococcus Group A Laboratory Tests Past 24 Hrs 11/20/18 11/20/18 11/21/18 15:15 15:45 05:45 WBC 7.4 RBC 3.37 L Hgb 10.0 L Hct 31.2 L MCV 92.6 MCH 29.7 MCHC 32.1 RDW 14.4 RDW Differential 47.1 H Plt Count 186 MPV 10.0 Immature Gran % (Auto) 1.100 H Neut % (Auto) 63.3 Lymph % (Auto) 16.0 L [place] % (Auto) 14.5 H Eos % (Auto) 4.6 Baso % (Auto) 0.5 Absolute Neuts (auto) 4.7 Absolute Lymphs (auto) 1.18 Total Counted Not Reportable Sodium 134 L Potassium 5.3 H Chloride 98 Carbon Dioxide 13.0 L Anion Gap 23 H BUN 22 H Creatinine 4.10 H Estim Creat Clear Calc 19.45 Est GFR (MDRD) Af Amer 20 L Est GFR (MDRD) Non-Af 17 L BUN/Creatinine Ratio 5.4 L Glucose 255 H Calcium TNP Phosphorus Ammonia 26.0 11/21/18 05:45 WBC RBC Hgb Hct MCV MCH MCHC RDW RDW Differential Plt Count MPV Immature Gran % (Auto) Neut % (Auto) Lymph % (Auto) [place] % (Auto) Eos % (Auto) Baso % (Auto) Absolute Neuts (auto) Absolute Lymphs (auto) Total Counted Sodium 134 L Potassium 5.2 H Chloride 99 Carbon Dioxide 31.0 Anion Gap 4 L BUN 30 H Creatinine 6.36 H Estim Creat Clear Calc 12.54 Est GFR (MDRD) Af Amer 12 L Est GFR (MDRD) Non-Af 10 L BUN/Creatinine Ratio 4.7 L Glucose 127 H Calcium 7.8 L Phosphorus 6.2 H Ammonia POC Glucose 11/21/18 11/21/18 11/20/18 11:27 06:34 21:13 POC Glucose 302 H 115 H 222 H 11/20/18 11/20/18 16:15 14:32 POC Glucose 264 H 229 H Minutes spent on discharge:: 35 Code Visit Inpatient E&M: 73389 Disch Hosp
== END 2018-11-21 10:42 | disposition home or self-care (01) ==
LOC: ED 22:18 → PCU 22:46
PROVIDERS: Physician Assistant; Admitting Provider Family Medicine; Emergency Provider Emergency Medicine; Family Provider Internal Medicine; PCP Internal Medicine; Visit Provider Student in an Organized Health Care Education/Training Program
DX: A40.9 Streptococcal sepsis, unspecified (principal); J02.0 Streptococcal pharyngitis; E87.5 Hyperkalemia; E11.22 Type 2 diabetes mellitus with diabetic chronic kidney disease; I50.33 Acute on chronic diastolic (congestive) heart failure; I13.2 Hypertensive heart and chronic kidney disease with heart failure and with stage 5 chronic kidney disease, or end stage renal disease; N18.6 End stage renal disease; Z99.2 Dependence on renal dialysis; G47.33 Obstructive sleep apnea (adult) (pediatric); E66.01 Morbid (severe) obesity due to excess calories; Z68.41 Body mass index [BMI] 40.0-44.9, adult; J96.21 Acute and chronic respiratory failure with hypoxia; I27.20 Pulmonary hypertension, unspecified; Z79.4 Long term (current) use of insulin; Z79.82 Long term (current) use of aspirin; Z79.899 Other long term (current) drug therapy; Z79.51 Long term (current) use of inhaled steroids; E78.5 Hyperlipidemia, unspecified; Z91.19 Patient's noncompliance with other medical treatment and regimen; E11.40 Type 2 diabetes mellitus with diabetic neuropathy, unspecified; E11.65 Type 2 diabetes mellitus with hyperglycemia
CPT/HCPCS: 36415; 70450; 71045; 80048; 81001; 82140; 82962; 83605; 83735; 84100; 85025; 85610; 87040; 87077; 87086; 87880; 90937; 93005; 96361; 96365; 96366; 96372; 96375; 99218; 99285; J7030; J7040; A4216; G0257; G0378; J0290; J2405

== ENCOUNTER 2019-01-10 16:08 | Emergency (ER) | payer MEDICARE, SELFPAY ==
[2019-01-10 16:09] VITALS: BP 139/58; PULSE 79; RESP 15; TEMP 36; O2SAT 93; BMI 42.8
--- NOTE | 2019-01-10 16:35 | RAD_ITS ---
STUDY: X-RAY CHEST REASON FOR EXAM: Male, 48 years old. Fall. Left-sided pain. TECHNIQUE: Frontal and lateral views of the chest COMPARISON: 11/19/2018 FINDINGS: The lungs are clear. There are no pleural effusions. There is no pneumothorax. The heart is normal in size. The visualized osseous structures are within normal limits. RAD/Chest PA and Lateral IMPRESSION: No acute thoracic pathology. Electronically Signed: Levon Shaw, at 16:53 EDT Tel , Service support ,
--- NOTE | 2019-01-10 16:38 | ED.VISSUMM ---
- ER Visit Summary Date of Service: 01/10/19 Chief Complaint: Fall complaining of left rib cage pain History of Present Illness: The patient is a 48 M 3 of end-stage renal disease, dialysis dialyzed today and his diabetes. Patient states yesterday his home he bent over to pick something off the floor lost his balance fell and hit an end table with his left rib cage and his head. No LOC. Said there is never any swelling to his left forehead that he had. He is not on any blood thinners and said he has not received heparin lately for his dialysis. He is complaining of left rib cage complaint. Denies any headache. Physical Examination: Male no acute distress. Vital signs are stable afebrile. HEENT is intact. Equal pupils. There is no signs of facial trauma. Where he hit his head his left forehead there is no swelling or tenderness. No ecchymosis or bruising. C-spine nontender. Lungs clear to osseous trauma. Heart regular rate rhythm no murmur. He does have left lateral lower rib cage chest wall tenderness but there is no ecchymosis or bruising nor any subcu air. Abdomen obese but soft and nontender normal bowel sounds no peritoneal signs. No signs of trauma or bruising. Ureter intact. Extremities moves all 4. Is a dialysis and she has seizure shot in his right upper arm. Neurologically he is awake alert with no focal motor deficits. Test Results: Chest x-ray 2 views shows shows no acute abnormality read both by myself the radiologist. No fracture. Emergency Department Course and Treatment: [place] for pain. Repeat exam patient is doing well at 1728 and will be discharged home. Treatment Plan: Ice to his rib cage. Tylenol Motrin for pain. Disposition: Discharge Impression: Acute fall Left lateral chest wall rib cage contusion Minor head injury History of insulin-dependent diabetes History of end-stage renal disease This note was generated with [employer] dictation software. It may contain incorrect words, spelling, and punctuation that were not noted in review of the chart prior to signing ED Disposition - Plan for ED Patient: Referrals: Augie Washburn MD [Primary Care Provider] -
[2019-01-10] MEDS: HYDROcodone Bitartrate/Apap 5/325 Tablet PO (16:39)
--- NOTE | 2019-01-10 17:30 | ED.DEP ---
ED Disposition - Plan for ED Patient: Disposition: Home or Assisted Living Instructions: HEAD INJURY, No Wake-Up (Adult), Chest Wall Contusion Referrals: Augie Washburn MD [Primary Care Provider] - 1 Week if not improving Additional Instructions: Ice to chest wall. Tylenol and Motrin for pain. Follow-up with your doctor if not improving.
[2019-01-10 17:40] VITALS: BP 141/89; PULSE 95; RESP 16; O2SAT 98
== END 2019-01-10 17:41 | disposition home or self-care (01) ==
PROVIDERS: Emergency Provider Emergency Medicine; Family Provider Internal Medicine; PCP Internal Medicine
DX: S20.212A Contusion of left front wall of thorax, initial encounter (principal); S09.90XA Unspecified injury of head, initial encounter; R19.7 Diarrhea, unspecified; W19.XXXA Unspecified fall, initial encounter; Y93.9 Activity, unspecified; Y92.9 Unspecified place or not applicable; E11.22 Type 2 diabetes mellitus with diabetic chronic kidney disease; I12.0 Hypertensive chronic kidney disease with stage 5 chronic kidney disease or end stage renal disease; N18.6 End stage renal disease; Z99.2 Dependence on renal dialysis; Z79.4 Long term (current) use of insulin; Z79.82 Long term (current) use of aspirin; Z79.899 Other long term (current) drug therapy
CPT/HCPCS: 71046; 99282

== ENCOUNTER 2019-01-14 21:49 | Inpatient (IN) | payer MEDICARE, SELFPAY ==
[2019-01-14 21:51] VITALS: BP 191/90; PULSE 73; RESP 22; TEMP 37.3; O2SAT 95; BMI 46.8
--- NOTE | 2019-01-14 22:35 | CT_ITS ---
STUDY: CT BRAIN WITHOUT CONTRAST REASON FOR EXAM: Male, 48 years old. Altered mental status RADIATION DOSAGE (If Supplied By Facility): CTDIvol = ( 44.99 ) mGy, DLP = ( 762.36 ) mGycm TECHNIQUE: Transaxial CT imaging of the brain was performed without administration of intravenous contrast material. Individualized dose optimization techniques were used for this CT. COMPARISON: CT brain November 20, 2018 FINDINGS: Normal soft tissue structures. Normal calvarium. Normal size ventricles and extra-axial spaces for the patient's age. Normal white matter tracts of the cerebral hemispheres. Normal basal ganglia and thalami. Normal brainstem. Normal cerebellum. There is no intracranial hemorrhage. There are no findings of an acute ischemic infarction. Normal visualized paranasal sinuses. CT/Brain/Head without Contrast IMPRESSION: Normal unenhanced CT scan of the brain. Electronically Signed: Otis Romero MD at 23:14 EDT , Service support ,
--- NOTE | 2019-01-14 22:35 | EKG12_ITS ---
Test Reason : SOB Blood Pressure : / mmHG Vent. Rate : 073 BPM Atrial Rate : 073 BPM P-R Int : 142 ms QRS Dur : 084 ms QT Int : 400 ms P-R-T Axes : -01 010 194 degrees QTc Int : 440 ms Normal sinus rhythm ST & T wave abnormality, consider inferolateral ischemia Abnormal ECG Confirmed by GIL LOMELI, ELIZABETH ([id number]), international editorial producer KULWINDER MARTINEZ ([id number]) on 01/16/2019 11:40:10 AM Referred By: Eze Rivera Confirmed By:ELIZABETH CORDERO MD
--- NOTE | 2019-01-14 22:35 | RAD_ITS ---
STUDY: X-RAY CHEST REASON FOR EXAM: Male, 48 years old. Chest pain TECHNIQUE: Single frontal view of the chest. COMPARISON: January 10, 2019 FINDINGS: The lungs are clear and expanded. There is no demonstrated pleural abnormality. Cardiomegaly. Normal mediastinum and esmer. Normal visualized pulmonary arteries. Normal visualized aortic arch and descending thoracic aorta. Normal visualized thoracic spine. Normal visualized ribs, clavicles, and shoulders. There is no demonstrated abnormality of the visualized soft tissue structures of the upper abdomen. RAD/Chest 1 View (Portable) IMPRESSION: No acute disease Electronically Signed: Otis Romero MD at 23:12 EDT , Service support ,
--- NOTE | 2019-01-14 22:36 | ED.DCSUM_ITS ---
History of Present Illness Chief Complaint: Shortness of Breath Detail of Chief Complaint: Short of breath, slurred speech, weakness, vomiting, elevated blood sugar Informant: Patient, Significant Other Onset: Today Current Severity: Moderate Maximum Severity: Moderate Narrative: Patient presents via EMS with his at bedside. She states that he has had slurred speech since this morning. He has felt shaky with both hands. He would spell his drink when trying to hold it. His blood sugar has been running high today in the 460s. He has not eaten today but did take his insulin. He vomited up trying to drink water. He denies fever or chills. He had some mild chest heaviness. He feels short of breath. He is dialysis dependent and had his last dialysis run on the . - Past Medical History (1) Diabetes Status: Acute (2) Hyperglycemia due to type 1 diabetes mellitus Status: Acute (3) Anemia Status: Chronic (4) CHF (congestive heart failure) Status: Chronic (5) Diabetic neuropathy Status: Chronic (6) End stage renal disease on dialysis Status: Chronic (7) HTN (hypertension) Status: Chronic (8) Hyperlipidemia Status: Chronic (9) Morbid obesity with BMI of 40.0-44.9, adult Status: Chronic Past Medical History - Allergies and Home Meds Allergies/Adverse Reactions: Allergies venom-honey bee [bee venom (honey bee)] Allergy (Verified 01/10/19 16:08) Swelling sulfamethoxazole [From Bactrim] Adverse Reaction (Verified 01/10/19 16:08) Upset Stomach trimethoprim [From Bactrim] Adverse Reaction (Verified 01/10/19 16:08) Upset Stomach Primary Care Physician: Augie Washburn MD [Primary Care Provider] - Prior records reviewed: Yes Past Medical History: - - Reviewed Surgical History: tonsillectomy, - - AV fistula in right arm. Lives: Spouse/ Significant Other Smoking Status: Never smoker - Family History Maternal Family History: Family History (Last Reviewed 07/16/18 @ 12:34 by Claudette Cheek) Mother Hypertension Heart disease Diabetes Father Hypertension Heart disease Brother Heart disease Family History: Reports: Diabetes, Heart Disease, Hypertension, Renal Disease Paternal Family History: Family History (Last Reviewed 07/16/18 @ 12:34 by Claudette Cheek) Mother Hypertension Heart disease Diabetes Father Hypertension Heart disease Brother Heart disease Family History: Reports: Cancer - liver, Diabetes, Heart Disease Review of Systems General: Denies: Chills, Fever Cardiovascular: Reports: Chest pain. Denies: Palpitations, Heart racing Respiratory: Reports: Dyspnea. Denies: Cough, Sputum Gastrointestinal: Reports: Nausea, Vomiting. Denies: Abdominal pain, Diarrhea Neurological: Reports: Weakness. Denies: Headache Physical Exam Vital Signs/Narrative: Vital Signs Temp Pulse Resp BP Pulse Ox 01/14/19 21:51 99.1 F 73 22 H 191/90 H 95 General: Obese ENT: Moist mucous membranes Cardiovascular: Regular rate, Regular rhythm Respiratory: No distress, - - Diminished in the bilateral bases. Abdomen: Soft, Nontender, Hypoactive bowel sounds Skin: Normal color Neurological: Alert, Oriented x3, - - No focal neuro deficits. I do not appreciate slurred speech at this time. Diagnostic/Tx/Re-eval Impressions Brain CT 01/14/19 22:35 IMPRESSION: Normal unenhanced CT scan of the brain. Electronically Signed: Otis Romero MD at 23:14 EDT , Service support , Chest X-Ray 01/14/19 22:35 IMPRESSION: No acute disease Electronically Signed: Otis Romero MD at 23:12 EDT , Service support , 01/14/19 22:35 Brain/Head without Contrast [CT] Stat Chest 1 View (Portable) [RAD] Stat Laboratory Results 01/14/19 01/14/19 22:15 22:15 WBC 7.3 RBC 2.93 L Hgb 8.9 L Hct 26.9 L MCV 91.8 MCH 30.4 MCHC 33.1 RDW 13.8 RDW Differential 44.0 H Plt Count 171 MPV 11.0 Immature Gran % (Auto) 1.200 H Neut % (Auto) 69.9 Lymph % (Auto) 14.2 L [place] % (Auto) 10.5 H Eos % (Auto) 3.8 Baso % (Auto) 0.4 Absolute Neuts (auto) 5.1 Absolute Lymphs (auto) 1.04 Sodium 130 L Potassium 4.8 Chloride 96 L Carbon Dioxide 23.0 Anion Gap 11 BUN 74 H Creatinine 8.49 H* Estim Creat Clear Calc 9.39 Est GFR (MDRD) Af Amer 9 L Est GFR (MDRD) Non-Af 7 L BUN/Creatinine Ratio 8.7 L Glucose 429 H Calcium 7.6 L Total Bilirubin 0.90 Direct Bilirubin 0.15 AST 8 L ALT 20 Alkaline Phosphatase 89 Troponin I 0.016 Total Protein 7.1 Albumin 2.9 L Globulin 4.2 - EKG Initial EKG Interpretation: Sinus Rhythm, - - Patient has lateral ST depression that is slightly more pronounced when compared to prior studies. - Medical Decision Making His labs are consistent with his chronic renal failure. His sodium level is similar to prior lab values as well. Head CT does not show any acute abn ormalities. Chest x-ray is unremarkable. Patient does have some subtle changes noted on his EKG but troponin is negative. Because of his history of dialysis and CHF I did not give him IV fluids for his hyperglycemia. He is ordered 14 units of insulin at this time. On repeat evaluation he is resting comfortably. He is unable to get up and ambulate due to generalized weakness. He will require admission overnight. Dr. Gregorio, his professor of psychiatry, will need to be consulted for his dialysis tomorrow. ED Disposition - Plan for ED Patient: Disposition: Home or Assisted Living Diagnosis: Hyperglycemia, Generalized weakness, Unable to ambulate Referrals: Augie Washburn MD [Primary Care Provider] -
[2019-01-14 22:47] LABS: Absolute Lymphocyte Count 1.04 X10^3/ul (0.83-4.51); Absolute Neutrophil Count 5.1 X10^3/uL (2.0-7.7); Basophil# 0.03 X10^3/uL; Basophil% 0.4 % (0-1); Eosinophil# 0.28 X10^3/uL; Eosinophils% 3.8 % (0-5); Hematocrit 26.9 % (40-54); Hemoglobin 8.9 g/dl (13.0-16.5); Lymphocyte # 1.04 X10^3/ul (4.0); Lymphocyte % 14.2 % (19-41); Mean Corp Hgb Conc 33.1 g/gl (32-36); Mean Corpuscular Hgb 30.4 pg (27.0-32.0); Mean Corpuscular Volume 91.8 fL (80-94); Monocyte# 0.77 X10^3/uL; Monocyte% 10.5 % (0-10); Neutrophil % 69.9 % (47-70); Platelet Count 171 K/mm3 (150-450); RBC Distribution Width CV 13.8 % (11.6-14.6); Red Blood Count 2.93 M/mm3 (4.6-6.2); White Blood Count 7.3 K/mm3 (4.4-11.0)
[2019-01-14 22:53] LABS: POSITIVE COUNT NO; POSITIVE DIFFERENTIAL NO; POSITIVE MORPHOLOGY NO
[2019-01-14 23:36] LABS: AST(SGOT) 8 U/L (15-37); Alanine Aminotransfer ALT/SGPT 20 U/L (16-61); Albumin, Serum 2.9 g/dL (3.2-5.0); Alkaline Phosphatase 89 U/L (45-117); Anion Gap 11 (5-15); BUN 74 mg/dL (7-18); BUN/Creat Ratio 8.7 RATIO (10-20); Bilirubin, Direct 0.15 mg/dL (0.00-0.30); Calcium,Total 7.6 mg/dL (8.5-10.1); Chloride 96 mmol/L (98-107); Creatinine, Serum 8.49 mg/dL (0.70-1.30); EST Glomerular Filtration Rate 7 mL/min (>60); Est Glom Filt Rate - Afr Amer 9 mL/min (>60); Estimated Creatinine Clearance 9.39 ml/min; Globulin 4.2 g/dL (2.2-4.2); Glucose 429 mg/dL (74-106); Potassium 4.8 mmol/L (3.5-5.1); Protein, Total 7.1 g/dL (6.4-8.2); Sodium Level 130 mmol/L (136-145)
[2019-01-14 23:49] VITALS: BP 182/87; PULSE 72; RESP 17; O2SAT 97
[2019-01-15] VITALS (19 sets, daily range): BP systolic 151–182; BP diastolic 52–84; PULSE 60–90; RESP 12–20; TEMP 36.7–37.2; O2SAT 91–100; BMI 46.0; BMI 46.1
--- NOTE | 2019-01-15 00:47 | HP.PCM_ITS ---
Problem List (1) Acute encephalopathy Status: Acute (2) Generalized weakness Status: Acute History of Present Illness Date of Admission: 01/15/19 Chief Complaint: altered mental status The patient is a 48 year old M with a significant history of end-stage renal disease (Tuesdays, and Saturdays ); hypertension; morbid obesity; obstructive sleep apnea; chronic oxygen use; morbid obesity and diabetes me llitus who presented to emergency department with altered mental status that started on the same day of presentation. Per family patient was lethargic and had incoherent speech. Associated with symptoms is generalized weakness with inability to walk. Patient legs were giving up. Also patient had shortness of breath. Further he had tremors. 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 He is on as needed oxygen by nasal cannula that recently he has been using his nasal oxygen throughout. Past Medical History Past Medical History (Chronic Problems): Chronic Problems (Last Reviewed 01/15/19 @ 01:56 by Eze Rivera MD) Acute hyperglycemia (Chronic) Type 1 diabetes mellitus with hyperosmolarity without nonketotic hyperglycemic hyperosmolar coma (Chronic) End stage renal disease on dialysis due to type 1 diabetes mellitus (Chronic) End stage renal disease on dialysis (Chronic) Morbid obesity with BMI of 40.0-44.9, adult (Chronic) Pulmonary hypertension (Chronic) Morbid obesity with BMI of 40.0-44.9, adult (Chronic) Diabetes mellitus, type II (Chronic) Renal failure (Chronic) Noncompliance (Chronic) CHF (congestive heart failure) (Chronic) TIA (transient ischemic attack) (Chronic) Chronic respiratory failure with hypoxia (Chronic) HTN (hypertension) (Chronic) Acute on chronic diastolic CHF (congestive heart failure) (Chronic) Hyperlipidemia (Chronic) Diabetic neuropathy (Chronic) Anemia (Chronic) SELMA (obstructive sleep apnea) (Chronic) Medical History: Medical History (Last Reviewed 01/15/19 @ 07:38 by Eze Rivera MD) Chronic respiratory failure with hypoxia (Chronic) J96.11 Preop cardiovascular exam (Acute) Acute diastolic (congestive) heart failure (Acute) I50.31 HTN (hypertension) (Chronic) I10 Acute respiratory failure with hypoxia (Acute) J96.01 Acute on chronic diastolic CHF (congestive heart failure) (Chronic) I50.33 Hyperlipidemia (Chronic) E78.5 Diabetic neuropathy (Chronic) E11.40 Anemia (Chronic) D64.9 SELMA (obstructive sleep apnea) (Chronic) G47.33 ESRD (end stage renal disease) on dialysis N18.6, Z99.2 cataract surgery, l eye Chronic respiratory failure J96.10 Dyspnea R06.00 Edema R60.9 Hypotension I95.9 Morbid obesity E66.01 Overweight E66.3 Type 2 diabetes mellitus with other diabetic kidney complication E11.29 dx : age 16 last exacerbation : dka : never hypoglycemic episode : 2012 er visit : 2013 Allergies venom-honey bee [bee venom (honey bee)] Allergy (Verified 01/10/19 16:08) Swelling sulfamethoxazole [From Bactrim] Adverse Reaction (Verified 01/10/19 16:08) Upset Stomach trimethoprim [From Bactrim] Adverse Reaction (Verified 01/10/19 16:08) Upset Stomach Home Medications: Ambulatory Orders Medication Instructions Recorded Atorvastatin Calcium [Lipitor] 20 mg PO QHS 10/11/17 Lisinopril [Zestril] 10 mg PO BID 10/11/17 Omeprazole 40 mg PO DAILY 10/11/17 Pyridoxine HCl [Vitamin B-6] 100 mg PO DAILY 10/11/17 Sevelamer HCl [Renagel] 800 mg PO TID 10/11/17 Vits A,C,E/Lutein/Minerals 1 ea PO DAILY 10/11/17 [Ocuvite with Lutein Tablet] Folic Acid/Vitamin B Comp W-C 1 cap PO DAILY 10/27/17 [Nephrocaps, Renaphro] FreeStyle Lite Strips See Dose Instructions .ROUTE 11/29/17 .MEDSUPPLY #100 ea NS albuterol sulfate HFA 90 2 puff INHALATION Q4H PRN #18 g 02/26/18 mcg/actuation aerosol inhaler Aspirin E.C. [Ecotrin] 81 mg PO DAILY 03/23/18 Cyclobenzaprine HCl 10 mg PO TID PRN PRN 03/23/18 Fluticasone 0.05% [Flonase Nasal 1 spray NASAL DAILY 03/23/18 [place]] Furosemide [Lasix] 80 mg PO BID 03/23/18 Gabapentin [Neurontin] 300 mg PO BID 03/23/18 Calcitriol [Rocaltrol] 0.5 mcg PO DAILY 04/17/18 insulin regular human See Rx Instructions SC DAILY #20 ml 05/17/18 U-500concentrate 500 unit/mL subcutaneous soln FreeStyle Venkatesh 14 Day [place] See Dose Instructions .ROUTE 07/04/18 .MEDSUPPLY #1 ea NS isosorbide mononitrate ER 30 mg 30 mg PO DAILY #30 tab 07/24/18 tablet,extended release 24 hr FreeStyle Venkatesh 14 Day Sensor See Dose Instructions .ROUTE 08/27/18 .MEDSUPPLY #2 ea NS Acetaminophen [Tylenol Tablet] 650 mg PO Q6H PRN PRN tablet 09/19/18 Guaifenesin Dm [Robitussin Dm] 10 ml PO Q6H PRN PRN #1 bottle 11/21/18 Surgical History: Surgical History (Last Reviewed 07/16/18 @ 12:34 by Claudette Cheek) S/P tonsillectomy Z90.89 dialysis fistula Rt Arm Surgical History: tonsillectomy, - - AV fistula in right arm. Psychiatric History: No pertinent psych hx Lives: Spouse/ Significant Other Smoking Status: Never smoker - *Family History Maternal Family History: Family History (Last Reviewed 01/15/19 @ 01:57 by Eze Rivera MD) Mother Hypertension Heart disease Diabetes Father Hypertension Heart disease Brother Heart disease History Items: Diabetes, Heart Disease, Hypertension, Renal Disease Paternal Family History: Family History (Last Reviewed 01/15/19 @ 01:57 by Eze Rivera MD) Mother Hypertension Heart disease Diabetes Father Hypertension Heart disease Brother Heart disease History Items: Cancer - liver, Diabetes, Heart Disease Review of Systems Constitutional: Reports: Weakness. Denies: Chills, Fever, Weight Change HEENT: Denies: Head Aches, Sinus Congestion, Sinus Drainage Cardiovascular: Denies: Chest Pain, Palpitations Respiratory: Reports: Cough. Denies: Shortness of breath at rest, Sputum production Gastrointestinal: Denies: Abdominal Pain, Nausea, Vomiting Genitourinary: Denies: Dysuria Musculoskeletal: Denies: Joint Pain, Joint Tenderness Skin: Denies: Rash, Wounds Neurological: Reports: Balance problems, Change in Speech. Denies: Focal weakness, Numbness, Tingling Psychiatric: Denies: Anxiety, Depression, Homicidal Ideations, Suicidal Ideations Hematologic/ Lymphatic: Denies: Easy Bruising, Easy Bleeding VTE Information - Inpt Only VTE Present on Admission: No VTE Mechan Device Prophylaxis: None VTE Pharm Prophylaxis ordered?: Yes Patient Problems: Active and Suspected Problems (Last Reviewed 01/15/19 @ 01:56 by Eze Rivera MD) Diabetes (Acute) Hyperglycemia (Acute) Generalized weakness (Acute) Unable to ambulate (Acute) Acute encephalopathy (Acute) - Physical Exam General: Oriented x3, Cooperative, Lethargic HEENT: Atraumatic, PERRLA, EOMI, Normocephalic Neck: Supple, No JVD, Negative Carotid Bruits Lungs: Clear to auscultation, Normal air movement Cardiovascular: Regular rate, No murmurs Abdomen: Bowel Sounds Present, Soft, Non Tender Extremities: Capillary Refill Less than 3 Seconds, Edema - Bilateral legs Skin: No rashes, No breakdown Musculoskeletal: No Tenderness to Palpation of Joints or Extremities Neurological: Cranial nerves II-XII grossly intact Psych/Mental Status: Normal Affect, Appropriate Vital Signs Temp Pulse Resp BP Pulse Ox 99.1 F 72 17 182/87 H 97 01/14/19 21:51 01/14/19 23:49 01/14/19 23:49 01/14/19 23:49 01/14/19 23:49 Oxygen Flow Rate (L/min) 2 Oxygen Delivery Method Nasal Cannula Weight: 131.6 kg Body Mass Index (BMI) 46.8 Finger Stick Blood Glucose 191 Laboratory Tests Past 24 Hrs 01/14/19 01/14/19 22:15 22:15 WBC 7.3 RBC 2.93 L Hgb 8.9 L Hct 26.9 L MCV 91.8 MCH 30.4 MCHC 33.1 RDW 13.8 RDW Differential 44.0 H Plt Count 171 MPV 11.0 Immature Gran % (Auto) 1.200 H Neut % (Auto) 69.9 Lymph % (Auto) 14.2 L [place] % (Auto) 10.5 H Eos % (Auto) 3.8 Baso % (Auto) 0.4 Absolute Neuts (auto) 5.1 Absolute Lymphs (auto) 1.04 Sodium 130 L Potassium 4.8 Chloride 96 L Carbon Dioxide 23.0 Anion Gap 11 BUN 74 H Creatinine 8.49 H* Estim Creat Clear Calc 9.39 Est GFR (MDRD) Af Amer 9 L Est GFR (MDRD) Non-Af 7 L BUN/Creatinine Ratio 8.7 L Glucose 429 H Calcium 7.6 L Total Bilirubin 0.90 Direct Bilirubin 0.15 AST 8 L ALT 20 Alkaline Phosphatase 89 Troponin I 0.016 Total Protein 7.1 Albumin 2.9 L Globulin 4.2 Assessment/Plan All Active Problems (Last Reviewed 01/15/19 @ 01:56 by Eze Rivera MD) Hyperkalemia (Acute) Acute hyperkalemia (Acute) Fluid overload (Acute) Hypertension complications (Acute) Fever, unknown origin (Acute) Hyperglycemia due to type 1 diabetes mellitus (Acute) Accelerated hypertension (Acute) Diabetes (Acute) Hyperglycemia (Acute) Generalized weakness (Acute) Unable to ambulate (Acute) Acute encephalopathy (Acute) Shortness of breath (Acute) Left leg cellulitis (Acute) SIRS (systemic inflammatory response syndrome) (Acute) Periapical abscess (Acute) Anasarca (Acute) Edema (Acute) Abnormal stress test (Acute) Muscle cramp, nocturnal (Acute) Chest pain (Acute) Nausea and vomiting (Acute) Fever and chills (Acute) Malaise and fatigue (Acute) Preop cardiovascular exam (Acute) Acute diastolic (congestive) heart failure (Acute) Acute respiratory failure with hypoxia (Acute) The patient is a 48 year old M with a significant history of end-stage renal disease(Tuesdays, and Saturdays ); hypertension; morbid obesity; obstructive sleep apnea; chronic oxygen use; morbid obesity; and diabetes mellitus who presented to emergency department with altered mental status; incoherent speech generalized weakness with inability to walk. Acute metabolic encephalopathy. Etiology is unclear at this time. Causes could be due to uremia; CO2 narcosis; sedating medication or others. Brain CT was unremarkable. Patient is claustrophobic and does not want an MRI. Hold all sedating medication at this time. Noted that patient takes gabapentin at home. ABG was ordered. BiPAP stat and nightly. Vitamin B12 and TSH ordered. Frequent NIHSS. We will get a comprehensive respiratory pathogen panel and put patient on scheduled DuoNeb. Generalized weakness It may be related to his acute metabolic encephalopathy. Treatment as above PT and OT to work the patient. Diabetes mellitus with acute hyperglycemia. On presentation his blood glucose was severely elevated. Patient received short acting insulin (lispro) 14 units at the emergency department. We will put patient on correction scale insulin with Accu-Cheks every 4 hours. Long-acting insulin started. Of note reportedly at home he takes 24 units of Humulin R twice daily. Abnormal EKG. On presentation his EKG showed T wave inversion and ST depression in lateral leads. Review of records showed EKG previously had some slight ST depression in V6. Start patient on aspirin and Lipitor. We will get cardiac enzymes and repeat EKG in a.m. Obstructive sleep apnea On BiPAP as above. DVT prophylaxis Subcutaneous heparin ordered Code Visit Inpatient E&M: 17036 Init Hosp L3
[2019-01-15] MEDS: Insulin Lispro 100 UNIT/ML INSULN.PEN 14 UNIT SC (01:37)
[2019-01-15] MEDS: Aspirin 325 MG Tablet PO (03:03)
[2019-01-15] MEDS: Atorvastatin Calcium 80 MG Tablet PO ×2 (03:03→22:28)
[2019-01-15] MEDS: Insulin Lispro 100 UNIT/ML INSULN.PEN SC ×3 (03:04→22:25)
[2019-01-15 05:09] LABS: Absolute Lymphocyte Count 1.05 X10^3/ul (0.83-4.51); Absolute Neutrophil Count 5.8 X10^3/uL (2.0-7.7); Basophil# 0.05 X10^3/uL; Basophil% 0.6 % (0-1); Eosinophil# 0.31 X10^3/uL; Eosinophils% 3.8 % (0-5); Hematocrit 25.9 % (40-54); Hemoglobin 8.6 g/dl (13.0-16.5); Lymphocyte # 1.05 X10^3/ul (4.0); Lymphocyte % 12.8 % (19-41); Mean Corp Hgb Conc 33.2 g/gl (32-36); Mean Corpuscular Hgb 30.8 pg (27.0-32.0); Mean Corpuscular Volume 92.8 fL (80-94); Mean Platelet Vol. 10.7 fl (6.2-12.0); Monocyte# 0.88 X10^3/uL; Monocyte% 10.7 % (0-10); Neutrophil # 5.81 X10^3/uL (2.7-7.7); Neutrophil % 70.8 % (47-70); Platelet Count 168 K/mm3 (150-450); RBC Distribution Width SD 45.6 fl (35.1-43.9); Red Blood Count 2.79 M/mm3 (4.6-6.2); White Blood Count 8.2 K/mm3 (4.4-11.0)
[2019-01-15 05:10] LABS: POSITIVE COUNT NO; POSITIVE DIFFERENTIAL NO; POSITIVE MORPHOLOGY NO
[2019-01-15 05:23] LABS: Thyroid Stim Hormone (TSH) 0.79 uIU/mL (0.358-3.74)
[2019-01-15 05:25] LABS: Allen Test POS; Blood Gas Specimen Type ART; SITE L RADIAL
[2019-01-15 05:26] LABS: Bicarbonate 20.2 mmol/L (22-26); O2 Delivery Device Nasal Can; PO2 101 mmHG (75-100); Time Given 123; pCO2 43.1 mmHg (35-45); pH 7.28 (7.35-7.45)
[2019-01-15 05:27] LABS: Base Excess -7 mmol/L (-2 to +2); SO2 97 % (95-99); Total Carbon Dioxide 22 mmol/L
[2019-01-15 05:36] LABS: Vitamin B12 508 pg/mL (211-911)
[2019-01-15 05:51] LABS: Anion Gap 11 (5-15); BUN 75 mg/dL (7-18); BUN/Creat Ratio 8.8 RATIO (10-20); Calcium,Total 7.9 mg/dL (8.5-10.1); Chloride 102 mmol/L (98-107); Creatinine, Serum 8.53 mg/dL (0.70-1.30); EST Glomerular Filtration Rate 7 mL/min (>60); Est Glom Filt Rate - Afr Amer 9 mL/min (>60); Estimated Creatinine Clearance 9.35 ml/min; Glucose 162 mg/dL (74-106); Potassium 4.3 mmol/L (3.5-5.1); Sodium Level 134 mmol/L (136-145)
--- NOTE | 2019-01-15 06:00 | EKG12_ITS ---
Test Reason : AM EKG Blood Pressure : / mmHG Vent. Rate : 062 BPM Atrial Rate : 062 BPM P-R Int : 152 ms QRS Dur : 086 ms QT Int : 434 ms P-R-T Axes : 031 008 201 degrees QTc Int : 440 ms Normal sinus rhythm ST & T wave abnormality, consider inferolateral ischemia Abnormal ECG When compared with ECG of 19-NOV-2018 22:02, Vent. rate has decreased BY 30 BPM T wave inversion now evident in Inferior leads Confirmed by [place] LOMELI, CANDIE ([id number]), editor magazine KULWINDER MARTINEZ ([id number]) on 01/16/2019 11:22:19 AM Referred By: Eze Rivera Confirmed By:CANDIE CONRAD MD
[2019-01-15] MEDS: Heparin Injection (Vial) 5,000 UNIT/ML VIAL 5000 UNIT SC ×2 (06:16→22:26)
[2019-01-15] MEDS: Ipratropium/Albuterol Sulfate 3 ML AMPUL.NEB INHALATION ×3 (06:50→22:43)
[2019-01-15 08:05] LABS: Bedside Glucose 209 mg/dL (70-110)
[2019-01-15 08:10] LABS: Bedside Glucose 119 mg/dL (70-110)
[2019-01-15 10:11] LABS: Bedside Glucose 71 mg/dL (70-110)
[2019-01-15 12:04] LABS: Amphetamine Urine VISTA NEGATIVE (<1000 ng/mL); Barbiturate Urine VISTA NEGATIVE (< 200 ng/mL); Benzodiazepine Urine VISTA NEGATIVE (< 200 ng/mL); Cocaine Urine VISTA NEGATIVE (< 300 ng/mL); Ecstacy Urine VISTA NEGATIVE (< 500 ng/mL); Methadone Urine VISTA NEGATIVE (< 300 ng/mL); PCP Urine VISTA NEGATIVE (< 25 ng/mL); THC Urine VISTA NEGATIVE (< 50 ng/mL); Vista UDS pH Range 6
--- NOTE | 2019-01-15 12:11 | PCM.CONS.R ---
Consultation - Renal 01/15/19 PCP/ Referring MD: Requesting physician: [] Primary care physician: Augie Washburn MD Reason for Consultation:: ESRD on hemodialysis Monday - History of Present Illness History of Present Illness: The patient is a 48 year old M with a significant history of end-stage renal disease (Tuesdays, and Saturdays ) due to diabetes; hypertension; morbid obesity; obstructive sleep apnea; chronic oxygen use and CPAP; morbid obesity and diabetes mellitus who presented to emergency department with altered mental status, weakness and falls. He is ready to start dialysis now. His mental status appears to be at baseline. at bedside states that he is compliant with his BiPAP at home but stated Bipap mask is defective he has not been able to use his BiPAP. He is on as needed oxygen by nasal cannula that recently he has been using his nasal oxygen throughout. - Allergies Allergies: Allergies venom-honey bee [bee venom (honey bee)] Allergy (Verified 01/15/19 02:43) Swelling sulfamethoxazole [From Bactrim] Adverse Reaction (Verified 01/15/19 02:43) Upset Stomach trimethoprim [From Bactrim] Adverse Reaction (Verified 01/15/19 02:43) Upset Stomach - Current Medications Current Medications: Current Medications Acetaminophen (Tylenol) 650 mg PO Q6H PRN PRN PRN Reason: Mild pain 1-3/Temp > 100.7 F Al Hydroxide/Mg Hydroxide (Mylanta Ii) 30 ml PO Q6H PRN PRN PRN Reason: Gastric Burning Albuterol/Ipratropium (Duoneb) 3 ml INHALATION Q4H.RT [facility] Last Admin: 01/15/19 11:23 Dose: Not Given Documented by: Aspirin (Aspirin, Baby) 81 mg PO DAILY@0800 [facility] Atorvastatin Calcium (Lipitor) 80 mg PO QHS [facility] Last Admin: 01/15/19 03:03 Dose: 80 mg Documented by: Dextrose (D50w Syringe) 0 gm IV X1 PRN; Protocol PRN Reason: Hypoglycemia Emollient Ointment (Eucerin Intensive Repair) 1 applic TOPICAL 4X/DAY PRN PRN; Protocol PRN Reason: DRY SKIN Glucagon () 1 mg IM .X1 PRN PRN Reason: Hypoglycemia Heparin Sodium (Porcine) (Heparin Na) 5,000 unit SC Q8 [facility] Last Admin: 01/15/19 06:16 Dose: 5,000 unit Documented by: Hydralazine HCl (Apresoline Iv) 10 mg IV Q4H PRN PRN PRN Reason: SBP > 160 Insulin Glargine (Lantus (Bkc)) 20 units SC DAILY [facility] Last Admin: 01/15/19 03:03 Dose: 20 units Documented by: Insulin Human Lispro (Humalog Kwikpen (Bkc)) 0 unit SC Q4 [facility]; Protocol Last Admin: 01/15/19 10:09 Dose: Not Given Documented by: Magnesium Hydroxide (Milk Of Magnesia) 30 ml PO DAILY PRN PRN PRN Reason: Constipation Ondansetron HCl (Zofran) 4 mg IV Q8H PRN PRN PRN Reason: NAUSEA/VOMITING Sodium Chloride () 10 - 40 ml IV UD PRN PRN Reason: SALINE FLUSH - Past Medical History Past Medical History (Chronic Problems): Chronic Problems (Last Reviewed 01/15/19 @ 07:38 by Eze Rivera MD) Acute hyperglycemia (Chronic) Type 1 diabetes mellitus with hyperosmolarity without nonketotic hyperglycemic hyperosmolar coma (Chronic) End stage renal disease on dialysis due to type 1 diabetes mellitus (Chronic) End stage renal disease on dialysis (Chronic) Morbid obesity with BMI of 40.0-44.9, adult (Chronic) Pulmonary hypertension (Chronic) Morbid obesity with BMI of 40.0-44.9, adult (Chronic) Diabetes mellitus, type II (Chronic) Renal failure (Chronic) Noncompliance (Chronic) CHF (congestive heart failure) (Chronic) TIA (transient ischemic attack) (Chronic) Chronic respiratory failure with hypoxia (Chronic) HTN (hypertension) (Chronic) Acute on chronic diastolic CHF (congestive heart failure) (Chronic) Hyperlipidemia (Chronic) Diabetic neuropathy (Chronic) Anemia (Chronic) SELMA (obstructive sleep apnea) (Chronic) - Past Surgical History Surgical History: tonsillectomy, - - AV fistula in right arm. - Social History Smoking Status: Never smoker - Family History Maternal Family History: Family History (Last Reviewed 01/15/19 @ 01:57 by Eze Rivera MD) Mother Hypertension Heart disease Diabetes Father Hypertension Heart disease Brother Heart disease History Items: Diabetes, Heart Disease, Hypertension, Renal Disease Paternal Family History: Family History (Last Reviewed 01/15/19 @ 01:57 by Eze Rivera MD) Mother Hypertension Heart disease Diabetes Father Hypertension Heart disease Brother Heart disease History Items: Cancer - liver, Diabetes, Heart Disease Review of Systems Constitutional: Reports: Weakness - Frequent falls. Denies: Anorexia, Chills, Fever Eyes: Denies: Vision Change Cardiovascular: Denies: Chest Pain, Edema Respiratory: Reports: Shortness of Breath. Denies: Cough Gastrointestinal: Denies: Abdominal Pain, Constipation, Diarrhea, Nausea, Vomiting Skin: Denies: Rash Neurological: Reports: Balance problems, - - Frequent falls, weakness Hematologic/ Lymphatic: Reports: Anemia Patient Problems: Active and Suspected Problems (Last Reviewed 01/15/19 @ 07:38 by Eze Rivera MD) Diabetes (Acute) Hyperglycemia (Acute) Generalized weakness (Acute) Unable to ambulate (Acute) Acute encephalopathy (Acute) - Physical Exam General: Alert, Oriented x3, Cooperative, No apparent distress HEENT: PERRLA, EOMI Lungs: Clear to auscultation Cardiovascular: Regular rate Abdomen: Bowel Sounds Present, Soft, Obese Extremities: Edema - Mild lower extremity edema Psych/Mental Status: Normal Affect, Appropriate, Alert and oriented to time, place, person, mood and affect Vital Signs Temp Pulse Resp BP Pulse Ox 98.9 F 63 14 151/70 H 97 01/15/19 08:45 01/15/19 08:45 01/15/19 08:45 01/15/19 08:45 01/15/19 08:45 Oxygen Flow Rate (L/min) 2 Oxygen Delivery Method Bi-pap Weight: 129.6 kg Body Mass Index (BMI) 46.0 Finger Stick Blood Glucose 191 Intake and Output for Last 24 Hours 01/13/19 01/14/19 01/15/19 23:59 23:59 23:59 Intake Total 50 / 50 Output Total 0 / 0 Balance 50 / 50 Microbiology Past 72 Hours 01/15/19 02:48 Respiratory Panel (PCR) - Final Mucosa - Nasopharyngeal Laboratory Tests Past 24 Hrs 01/14/19 01/14/19 01/14/19 22:15 22:15 22:15 WBC 7.3 RBC 2.93 L Hgb 8.9 L Hct 26.9 L MCV 91.8 MCH 30.4 MCHC 33.1 RDW 13.8 RDW Differential 44.0 H Plt Count 171 MPV 11.0 Immature Gran % (Auto) 1.200 H Neut % (Auto) 69.9 Lymph % (Auto) 14.2 L [place] % (Auto) 10.5 H Eos % (Auto) 3.8 Baso % (Auto) 0.4 Absolute Neuts (auto) 5.1 Absolute Lymphs (auto) 1.04 Specimen Type Sample Site pH Bicarbonate Actual POC Total CO2 Base Excess O2 Saturation ABG pCO2 ABG pO2 Brennan Test O2 Delivery Device Liter Flow Blood Gas Notified Whom Blood Gas Notified Time Sodium 130 L Potassium 4.8 Chloride 96 L Carbon Dioxide 23.0 Anion Gap 11 BUN 74 H Creatinine 8.49 H* Estim Creat Clear Calc 9.39 Est GFR (MDRD) Af Amer 9 L Est GFR (MDRD) Non-Af 7 L BUN/Creatinine Ratio 8.7 L Glucose 429 H Calcium 7.6 L Total Bilirubin 0.90 Direct Bilirubin 0.15 AST 8 L ALT 20 Alkaline Phosphatase 89 Troponin I 0.016 Total Protein 7.1 Albumin 2.9 L Globulin 4.2 Vitamin B12 TSH 0.79 Urine Opiates Screen Urine Methadone Screen Ur Barbiturates Screen Ur Phencyclidine Scrn Ur Amphetamines Screen U Methamphetamin-MDMA U Benzodiazepines Scrn Urine Cocaine Screen U Cannabinoids Screen Ur Drug Screen Comment 01/15/19 01/15/19 01/15/19 01:23 04:56 04:56 WBC RBC Hgb Hct MCV MCH MCHC RDW RDW Differential Plt Count MPV Immature Gran % (Auto) Neut % (Auto) Lymph % (Auto) [place] % (Auto) Eos % (Auto) Baso % (Auto) Absolute Neuts (auto) Absolute Lymphs (auto) Specimen Type ART Sample Site L RADIAL pH 7.28 L Bicarbonate Actual 20.2 L POC Total CO2 22 Base Excess -7 L O2 Saturation 97 ABG pCO2 43.1 ABG pO2 101 H Brennan Test POS O2 Delivery Device Nasal Can Liter Flow 3.0 Blood Gas Notified Whom [facility] Blood Gas Notified Time 123 Sodium 134 L Potassium 4.3 Chloride 102 Carbon Dioxide 21.0 Anion Gap 11 BUN 75 H Creatinine 8.53 H* Estim Creat Clear Calc 9.35 Est GFR (MDRD) Af Amer 9 L Est GFR (MDRD) Non-Af 7 L BUN/Creatinine Ratio 8.8 L Glucose 162 H Calcium 7.9 L Total Bilirubin Direct Bilirubin AST ALT Alkaline Phosphatase Troponin I Total Protein Albumin Globulin Vitamin B12 508 TSH Urine Opiates Screen Urine Methadone Screen Ur Barbiturates Screen Ur Phencyclidine Scrn Ur Amphetamines Screen U Methamphetamin-MDMA U Benzodiazepines Scrn Urine Cocaine Screen U Cannabinoids Screen Ur Drug Screen Comment 01/15/19 01/15/19 01/15/19 04:56 04:56 07:58 WBC 8.2 RBC 2.79 L Hgb 8.6 L Hct 25.9 L MCV 92.8 MCH 30.8 MCHC 33.2 RDW 14.0 RDW Differential 45.6 H Plt Count 168 MPV 10.7 Immature Gran % (Auto) 1.300 H Neut % (Auto) 70.8 H Lymph % (Auto) 12.8 L [place] % (Auto) 10.7 H Eos % (Auto) 3.8 Baso % (Auto) 0.6 Absolute Neuts (auto) 5.8 Absolute Lymphs (auto) 1.05 Specimen Type Sample Site pH Bicarbonate Actual POC Total CO2 Base Excess O2 Saturation ABG pCO2 ABG pO2 Brennan Test O2 Delivery Device Liter Flow Blood Gas Notified Whom Blood Gas Notified Time Sodium Potassium Chloride Carbon Dioxide Anion Gap BUN Creatinine Estim Creat Clear Calc Est GFR (MDRD) Af Amer Est GFR (MDRD) Non-Af BUN/Creatinine Ratio Glucose Calcium Total Bilirubin Direct Bilirubin AST ALT Alkaline Phosphatase Troponin I < 0.015 0.015 Total Protein Albumin Globulin Vitamin B12 TSH Urine Opiates Screen Urine Methadone Screen Ur Barbiturates Screen Ur Phencyclidine Scrn Ur Amphetamines Screen U Methamphetamin-MDMA U Benzodiazepines Scrn Urine Cocaine Screen U Cannabinoids Screen Ur Drug Screen Comment 01/15/19 11:40 WBC RBC Hgb Hct MCV MCH MCHC RDW RDW Differential Plt Count MPV Immature Gran % (Auto) Neut % (Auto) Lymph % (Auto) [place] % (Auto) Eos % (Auto) Baso % (Auto) Absolute Neuts (auto) Absolute Lymphs (auto) Specimen Type Sample Site pH Bicarbonate Actual POC Total CO2 Base Excess O2 Saturation ABG pCO2 ABG pO2 Brennan Test O2 Delivery Device Liter Flow Blood Gas Notified Whom Blood Gas Notified Time Sodium Potassium Chloride Carbon Dioxide Anion Gap BUN Creatinine Estim Creat Clear Calc Est GFR (MDRD) Af Amer Est GFR (MDRD) Non-Af BUN/Creatinine Ratio Glucose Calcium Total Bilirubin Direct Bilirubin AST ALT Alkaline Phosphatase Troponin I Total Protein Albumin Globulin Vitamin B12 TSH Urine Opiates Screen NEGATIVE Urine Methadone Screen NEGATIVE Ur Barbiturates Screen NEGATIVE Ur Phencyclidine Scrn NEGATIVE Ur Amphetamines Screen NEGATIVE U Methamphetamin-MDMA NEGATIVE U Benzodiazepines Scrn NEGATIVE Urine Cocaine Screen NEGATIVE U Cannabinoids Screen NEGATIVE Ur Drug Screen Comment POC Glucose 01/15/19 01/15/19 01/15/19 09:51 06:15 03:01 POC Glucose 71 119 H 209 H Clinical Impression(s) from Imaging Studies Brain CT 01/14/19 22:35 IMPRESSION: Normal unenhanced CT scan of the brain. Electronically Signed: Otis Romero MD at 23:14 EDT , Service support , Chest X-Ray 01/14/19 22:35 IMPRESSION: No acute disease Electronically Signed: Otis Romero MD at 23:12 EDT , Service support , Assessment/Plan All Active Problems (Last Reviewed 01/15/19 @ 07:38 by Eze Rivera MD) Hyperkalemia (Acute) Acute hyperkalemia (Acute) Fluid overload (Acute) Hypertension complications (Acute) Fever, unknown origin (Acute) Hyperglycemia due to type 1 diabetes mellitus (Acute) Accelerated hypertension (Acute) Diabetes (Acute) Hyperglycemia (Acute) Generalized weakness (Acute) Unable to ambulate (Acute) Acute encephalopathy (Acute) Shortness of breath (Acute) Left leg cellulitis (Acute) SIRS (systemic inflammatory response syndrome) (Acute) Periapical abscess (Acute) Anasarca (Acute) Edema (Acute) Abnormal stress test (Acute) Muscle cramp, nocturnal (Acute) Chest pain (Acute) Nausea and vomiting (Acute) Fever and chills (Acute) Malaise and fatigue (Acute) Preop cardiovascular exam (Acute) Acute diastolic (congestive) heart failure (Acute) Acute respiratory failure with hypoxia (Acute) 1. ESRD hemodialysis today and q. Monday. Run on 3K bath today. 2. Hypertension with stable blood pressure 3. Diabetes mellitus type 2 with noncompliance. Elevated blood sugars 4. Morbid obesity 5. Sleep apnea noncompliant with BiPAP 6. Altered mental status with mental status back to baseline. 7. Anemia TERESA therapy on hemodialysis
[2019-01-15] MEDS: Acetaminophen 325 MG Tablet 650 MG PO (12:59)
--- NOTE | 2019-01-15 13:33 | PN_ITS ---
Patient Problems: Active and Suspected Problems (Last Reviewed 01/15/19 @ 07:38 by Eze Rivera MD) Diabetes (Acute) Hyperglycemia (Acute) Generalized weakness (Acute) Unable to ambulate (Acute) Acute encephalopathy (Acute) Subjective: Pt mentation improved. Blood sugar also improved. Pt and present reporting compliance with bipap and insulin at home. Also complaining of chronic diarrhea and desires antidiarrheals that he normally takes at home. No abd pain. Does have cough. No SOB. No fever/chills. Does make a small amount of urine - no dysuria/urgency. - Physical Exam General: Alert, Oriented x3, Cooperative HEENT: Atraumatic, PERRLA, EOMI, Normocephalic Neck: Supple, No JVD, Negative Carotid Bruits Lungs: Clear to auscultation, Normal air movement Cardiovascular: Regular rate, No murmurs Abdomen: Bowel Sounds Present, Soft, Non Tender Extremities: No edema, Capillary Refill Less than 3 Seconds Skin: No rashes, No breakdown Musculoskeletal: No Tenderness to Palpation of Joints or Extremities Neurological: Cranial nerves II-XII grossly intact Psych/Mental Status: Normal Affect, Appropriate Vital Signs Temp Pulse Resp BP Pulse Ox 98.9 F 63 14 151/70 H 97 01/15/19 08:45 01/15/19 08:45 01/15/19 08:45 01/15/19 08:45 01/15/19 08:45 Oxygen Flow Rate (L/min) 2 Oxygen Delivery Method Bi-pap Weight: 285 lb 11.505 oz Body Mass Index (BMI) 46.0 Finger Stick Blood Glucose 191 Intake and Output for Last 24 Hours 01/13/19 01/14/19 01/15/19 23:59 23:59 23:59 Intake Total 50 / 50 Output Total 0 / 0 Balance 50 / 50 Microbiology Past 72 Hours 01/15/19 02:48 Respiratory Panel (PCR) - Final Mucosa - Nasopharyngeal Laboratory Tests Past 24 Hrs 01/14/19 01/14/19 01/14/19 22:15 22:15 22:15 WBC 7.3 RBC 2.93 L Hgb 8.9 L Hct 26.9 L MCV 91.8 MCH 30.4 MCHC 33.1 RDW 13.8 RDW Differential 44.0 H Plt Count 171 MPV 11.0 Immature Gran % (Auto) 1.200 H Neut % (Auto) 69.9 Lymph % (Auto) 14.2 L [place] % (Auto) 10.5 H Eos % (Auto) 3.8 Baso % (Auto) 0.4 Absolute Neuts (auto) 5.1 Absolute Lymphs (auto) 1.04 Specimen Type Sample Site pH Bicarbonate Actual POC Total CO2 Base Excess O2 Saturation ABG pCO2 ABG pO2 Brennan Test O2 Delivery Device Liter Flow Blood Gas Notified Whom Blood Gas Notified Time Sodium 130 L Potassium 4.8 Chloride 96 L Carbon Dioxide 23.0 Anion Gap 11 BUN 74 H Creatinine 8.49 H* Estim Creat Clear Calc 9.39 Est GFR (MDRD) Af Amer 9 L Est GFR (MDRD) Non-Af 7 L BUN/Creatinine Ratio 8.7 L Glucose 429 H Calcium 7.6 L Total Bilirubin 0.90 Direct Bilirubin 0.15 AST 8 L ALT 20 Alkaline Phosphatase 89 Troponin I 0.016 Total Protein 7.1 Albumin 2.9 L Globulin 4.2 Vitamin B12 TSH 0.79 Urine Opiates Screen Urine Methadone Screen Ur Barbiturates Screen Ur Phencyclidine Scrn Ur Amphetamines Screen U Methamphetamin-MDMA U Benzodiazepines Scrn Urine Cocaine Screen U Cannabinoids Screen Ur Drug Screen Comment Acetone Level 01/15/19 01/15/19 01/15/19 01:23 04:56 04:56 WBC RBC Hgb Hct MCV MCH MCHC RDW RDW Differential Plt Count MPV Immature Gran % (Auto) Neut % (Auto) Lymph % (Auto) [place] % (Auto) Eos % (Auto) Baso % (Auto) Absolute Neuts (auto) Absolute Lymphs (auto) Specimen Type ART Sample Site L RADIAL pH 7.28 L Bicarbonate Actual 20.2 L POC Total CO2 22 Base Excess -7 L O2 Saturation 97 ABG pCO2 43.1 ABG pO2 101 H Brennan Test POS O2 Delivery Device Nasal Can Liter Flow 3.0 Blood Gas Notified Whom [facility] Blood Gas Notified Time 123 Sodium 134 L Potassium 4.3 Chloride 102 Carbon Dioxide 21.0 Anion Gap 11 BUN 75 H Creatinine 8.53 H* Estim Creat Clear Calc 9.35 Est GFR (MDRD) Af Amer 9 L Est GFR (MDRD) Non-Af 7 L BUN/Creatinine Ratio 8.8 L Glucose 162 H Calcium 7.9 L Total Bilirubin Direct Bilirubin AST ALT Alkaline Phosphatase Troponin I Total Protein Albumin Globulin Vitamin B12 508 TSH Urine Opiates Screen Urine Methadone Screen Ur Barbiturates Screen Ur Phencyclidine Scrn Ur Amphetamines Screen U Methamphetamin-MDMA U Benzodiazepines Scrn Urine Cocaine Screen U Cannabinoids Screen Ur Drug Screen Comment Acetone Level 01/15/19 01/15/19 01/15/19 04:56 04:56 07:58 WBC 8.2 RBC 2.79 L Hgb 8.6 L Hct 25.9 L MCV 92.8 MCH 30.8 MCHC 33.2 RDW 14.0 RDW Differential 45.6 H Plt Count 168 MPV 10.7 Immature Gran % (Auto) 1.300 H Neut % (Auto) 70.8 H Lymph % (Auto) 12.8 L [place] % (Auto) 10.7 H Eos % (Auto) 3.8 Baso % (Auto) 0.6 Absolute Neuts (auto) 5.8 Absolute Lymphs (auto) 1.05 Specimen Type Sample Site pH Bicarbonate Actual POC Total CO2 Base Excess O2 Saturation ABG pCO2 ABG pO2 Brennan Test O2 Delivery Device Liter Flow Blood Gas Notified Whom Blood Gas Notified Time Sodium Potassium Chloride Carbon Dioxide Anion Gap BUN Creatinine Estim Creat Clear Calc Est GFR (MDRD) Af Amer Est GFR (MDRD) Non-Af BUN/Creatinine Ratio Glucose Calcium Total Bilirubin Direct Bilirubin AST ALT Alkaline Phosphatase Troponin I < 0.015 0.015 Total Protein Albumin Globulin Vitamin B12 TSH Urine Opiates Screen Urine Methadone Screen Ur Barbiturates Screen Ur Phencyclidine Scrn Ur Amphetamines Screen U Methamphetamin-MDMA U Benzodiazepines Scrn Urine Cocaine Screen U Cannabinoids Screen Ur Drug Screen Comment Acetone Level 01/15/19 01/15/19 01/15/19 11:40 12:55 12:55 WBC RBC Hgb Hct MCV MCH MCHC RDW RDW Differential Plt Count MPV Immature Gran % (Auto) Neut % (Auto) Lymph % (Auto) [place] % (Auto) Eos % (Auto) Baso % (Auto) Absolute Neuts (auto) Absolute Lymphs (auto) Specimen Type Sample Site pH Bicarbonate Actual POC Total CO2 Base Excess O2 Saturation ABG pCO2 ABG pO2 Brennan Test O2 Delivery Device Liter Flow Blood Gas Notified Whom Blood Gas Notified Time Sodium Potassium Chloride Carbon Dioxide Anion Gap BUN Creatinine Estim Creat Clear Calc Est GFR (MDRD) Af Amer Est GFR (MDRD) Non-Af BUN/Creatinine Ratio Glucose Calcium Total Bilirubin Direct Bilirubin AST ALT Alkaline Phosphatase Troponin I Pending Total Protein Albumin Globulin Vitamin B12 TSH Urine Opiates Screen NEGATIVE Urine Methadone Screen NEGATIVE Ur Barbiturates Screen NEGATIVE Ur Phencyclidine Scrn NEGATIVE Ur Amphetamines Screen NEGATIVE U Methamphetamin-MDMA NEGATIVE U Benzodiazepines Scrn NEGATIVE Urine Cocaine Screen NEGATIVE U Cannabinoids Screen NEGATIVE Ur Drug Screen Comment Acetone Level NEGATIVE POC Glucose 01/15/19 01/15/19 01/15/19 09:51 06:15 03:01 POC Glucose 71 119 H 209 H Medical Necessity - Tobacco Use Smoking Status: Never smoker Assessment/Plan All Active Problems (Last Reviewed 01/15/19 @ 07:38 by Eze Rivera MD) Hyperkalemia (Acute) Acute hyperkalemia (Acute) Fluid overload (Acute) Hypertension complications (Acute) Fever, unknown origin (Acute) Hyperglycemia due to type 1 diabetes mellitus (Acute) Accelerated hypertension (Acute) Diabetes (Acute) Hyperglycemia (Acute) Generalized weakness (Acute) Unable to ambulate (Acute) Acute encephalopathy (Acute) Shortness of breath (Acute) Left leg cellulitis (Acute) SIRS (systemic inflammatory response syndrome) (Acute) Periapical abscess (Acute) Anasarca (Acute) Edema (Acute) Abnormal stress test (Acute) Muscle cramp, nocturnal (Acute) Chest pain (Acute) Nausea and vomiting (Acute) Fever and chills (Acute) Malaise and fatigue (Acute) Preop cardiovascular exam (Acute) Acute diastolic (congestive) heart failure (Acute) Acute respiratory failure with hypoxia (Acute) 1. Acute encephalopathy, suspect metabolic - acidosis on ABG, elevated glucose, acetone negative, no CO2 retention on ABG. Refused MRI due to claustrophobia. CT negative. No obvious source of infection. Trop neg. Neg TSH and B12. Tox screen neg. 2. ESRD - dialysis today per dr. Gregorio. No reported missed sessions. 3. DMt2 with morbid obesity - states hes going >500, and lows in the 30s at home. Stopped following [facility] for endocrinology. Will reduce doses and go to TID dosing. Need to confirm actual number of units of insulin he is receiving daily. 4. Hx TIA 5. SELMA - questionable compliance with bipap. 6. Hx Chronic hypoxic respiratory failure - at baseline. 7. Hx chronic diastolic CHF - no exacerbation DVT ppx: heparin DC planning: monitor overnight. Home tomorrow if stable. PTOT evals This patient was seen by Zachariah Meza PA-C under the supervision of Dr. Dasilva.
[2019-01-15] MEDS: Loperamide 2 MG Capsule PO (13:49)
--- NOTE | 2019-01-15 14:05 | CASEMGMT ---
RN CM Assessment Introduced role of RN CM to patient and patient Charity at bedside.? Patient is alert, oriented and able?to participate in RN CM Assessment. ?Care providers, pharmacy, and demographics verified. Presentation: EMS- Slurred Speech, Bilt hands shaky, Vomited while trying to drink water, Mild Chest Heaviness, SOB. Last HD on 01/12/19. Admit Dx: Acute Encephalopathy Re-Admit: No, ER 01/10/19 for Fall Barriers/Issues: HD at [facility] T/TH/Sat, Chair time starts at 0610, states for 4hrs 15min. Patient states that his Aide through Waiver Program/HHC Agency [place] quit and has not had an Aide since August. States that [facility] was supposed to be looking for an Aide and has not been able to and has not heard from them in a little while. States that [facility] CM Patricia Minor was supposed to provide them with a list of Private Duty Aides that took his insurance- but has not. States she gave them one contact number and they had their interview with them but has not heard back and thinks she may have taken a job with another person. States needs an Aide to assist with bathing and House Chores. has been assisting with as much as she can. [facility] CM: Patricia Minor, Ph: [phone], Fx: . Services:- Prior w/[facility] [phone], Emergency response button, 7 meals/week. PCP: Augie Washburn Specialists: Nephro- Dr Gregorio, Pulm- Dr Bowen, Cardio- Dr Hahn Preferred Pharmacy: [facility] [place] Insurance: [facility] Rx Benefit:?Yes LNOK: Charity Gregorio LW/HPOA: HPOA on file at [facility], HPOA- Charity Gregorio Living Arrangements:?Lives with in a mobile home, 3 steps to enter. ADL?s: Ambulates with a cane and walker. assists with ADLs Transportation: [facility] for transport to HD. Patient drives. upon DC. DME: Walker/Rollator, Cane, Home O2- [employer] (States has been wearing continuous lately), Bipap- [employer], Glucometer, BSC. HHC: See Issue SNF: None Goal: Home, Needs an Aide to Assist with Bathing and House Chores. States was going to [facility] for Outpt PT and missed a couple appointments, is supposed to meet with the Collar Shaper Operator there to discuss further Outpt PT needs, States wants Outpt PT. Denies any further questions/concerns/issues. Aware CM remains available for any emerging needs. DC PLAN: Home with Outpt PT, Cm f/u with [facility] CM for Aide Services. Dima Flores RNCM
--- NOTE | 2019-01-15 14:15 | CASEMGMT ---
Patient has a waiver disability case manager, Patricia Minor. SW called Patricia and let her know patient is in the hospital. She is aware he does not have an aide right now. There is a shortage of aides in this area, but she is working to find an aide. Agatha SHEETS MSW
--- NOTE | 2019-01-15 14:58 | CHAPLAIN ---
Type of Pastoral Visit _x__ Initial Visit ___ Follow-up Visit ___ On-call Visit ___ General Patient Visit ___ Spiritual Assessment ___ Family Conference ___ Bereavement ___ Rapid Response ___ Code Blue ___ Other (describe below) Pastoral Care Referral From _x__ Patient ___ Family ___ Nurse ___ Physician ___ Bulldozer Mechanic ___ Electrical Systems Drafter ___ Other (describe below) Sacrament/Intervention _x__ Active listening ___ Anointing ___ Restoration ___ Bereavement ___ Communion _x__ Patricia exploration ___ _x__ Life review _x__ Prayer ___ Reconciliation ___ Sacrament of Sick _x__ Supportive presence ___ Wedding ___ Other (describe below) Pastoral Comments
--- NOTE | 2019-01-15 15:40 | CASEMGMT ---
Patient has a Healthcare POA and Healthcare LW on file at [facility]. Agatha SHEETS SUPERVISOR FINISHING ROOM
--- NOTE | 2019-01-15 16:58 | DIALYSIS ---
Pt tolerated 4hr HD tx well. Net UF -5000ml. See flow record for tx data.
[2019-01-15] MEDS: Heparin 10,000 UNITS/10 ML Vial 8000 UNITS IV (17:47)
[2019-01-15] MEDS: SEVELAMER CARBONATE 800 MG TABLET PO (18:11)
[2019-01-15 21:06] LABS: Bedside Glucose 195 mg/dL (70-110)
[2019-01-15] MEDS: Gabapentin 300 MG Capsule PO (22:28)
[2019-01-15 22:45] LABS: Bedside Glucose 393 mg/dL (70-110)
[2019-01-16] VITALS (11 sets, daily range): BP systolic 140–182; BP diastolic 49–72; PULSE 68–79; RESP 12–18; TEMP 36.2–36.6; O2SAT 95–99
--- NOTE | 2019-01-16 00:55 | NURSING ---
this RN is now taking over care of this patient at this time.
[2019-01-16] MEDS: Ipratropium/Albuterol Sulfate 3 ML AMPUL.NEB INHALATION ×3 (03:00→13:10)
[2019-01-16 06:13] LABS: Absolute Lymphocyte Count 0.83 X10^3/uL (0.83-4.51); Absolute Neutrophil Count 3.9 X10^3/uL (2.0-7.7); Basophil# 0.04 X10^3/uL; Basophil% 0.7 % (0-1); Eosinophil# 0.22 X10^3/uL; Eosinophils% 3.9 % (0-5); Hematocrit 26.4 % (40-54); Hemoglobin 8.6 g/dL (13.0-16.5); Lymphocyte # 0.83 X10^3/ul (4.0); Lymphocyte % 14.8 % (19-41); Mean Corp Hgb Conc 32.6 g/dL (32-36); Mean Corpuscular Hgb 30.7 pg (27.0-32.0); Mean Corpuscular Volume 94.3 fL (80-94); Mean Platelet Vol. 10.7 fl (6.2-12.0); Monocyte# 0.52 X10^3/uL; Monocyte% 9.3 % (0-10); NRBC Flagged by Analyzer 0 % (0-5); Neutrophil # 3.91 X10^3/uL (2.7-7.7); Neutrophil % 69.9 % (47-70); Platelet Count 170 K/mm3 (150-450); RBC Distribution Width CV 14.2 % (11.6-14.6); RBC Distribution Width SD 48.5 fl (35.1-43.9); White Blood Count 5.6 K/mm3 (4.4-11.0)
[2019-01-16 06:27] LABS: Anion Gap 11 (5-15); BUN 45 mg/dL (7-18); BUN/Creat Ratio 7.5 RATIO (10-20); Chloride 95 mmol/L (98-107); EST Glomerular Filtration Rate 11 mL/min (>60); Est Glom Filt Rate - Afr Amer 13 mL/min (>60); Estimated Creatinine Clearance 13.29 ml/min; Glucose 302 mg/dL (74-106); Potassium 4.4 mmol/L (3.5-5.1); Sodium Level 134 mmol/L (136-145)
[2019-01-16] MEDS: Insulin Lispro 100 UNIT/ML INSULN.PEN SC ×2 (06:30→11:02)
[2019-01-16] MEDS: Heparin Injection (Vial) 5,000 UNIT/ML VIAL 5000 UNIT SC (06:30)
[2019-01-16 06:36] LABS: Bedside Glucose 285 mg/dL (70-110)
[2019-01-16] MEDS: Acetaminophen 325 MG Tablet 650 MG PO (07:35)
[2019-01-16] MEDS: SEVELAMER CARBONATE 800 MG TABLET PO ×2 (07:35→11:02)
[2019-01-16] MEDS: Aspirin 81 MG TAB.CHEW PO (07:35)
--- NOTE | 2019-01-16 08:41 | PCM.PN.REN ---
Patient Problems: Active and Suspected Problems (Last Reviewed 01/15/19 @ 07:38 by Eze Rivera MD) Diabetes (Acute) Hyperglycemia (Acute) Generalized weakness (Acute) Unable to ambulate (Acute) Acute encephalopathy (Acute) Subjective: feeling better, breathing stable. Oxygenation stable. - Physical Exam General: Alert, Oriented x3, Cooperative Lungs: Clear to auscultation Cardiovascular: Regular rate Extremities: No edema Psych/Mental Status: Alert and oriented to time, place, person, mood and affect Vital Signs Temp Pulse Resp BP Pulse Ox 97.8 F 73 16 140/49 H 97 01/16/19 04:30 01/16/19 06:52 01/16/19 06:52 01/16/19 04:30 01/16/19 06:52 Oxygen Flow Rate (L/min) 2 Oxygen Delivery Method Nasal Cannula Weight: 129.6 kg Body Mass Index (BMI) 46.0 Finger Stick Blood Glucose 191 Intake and Output for Last 24 Hours 01/14/19 01/15/19 01/16/19 23:59 23:59 23:59 Intake Total 300 / 300 120 / 120 Output Total 5000 / 5000 Balance -4700 / -4700 120 / 120 Microbiology Past 72 Hours 01/15/19 02:48 Respiratory Panel (PCR) - Final Mucosa - Nasopharyngeal Laboratory Tests Past 24 Hrs 01/15/19 01/15/19 01/15/19 11:40 12:55 12:55 WBC RBC Hgb Hct MCV MCH MCHC RDW Std Deviation RDW Coeff of Roberto Plt Count MPV Immature Gran % (Auto) Neut % (Auto) Lymph % (Auto) [place] % (Auto) Eos % (Auto) Baso % (Auto) Absolute Neuts (auto) Absolute Lymphs (auto) Absolute Nucleated RBC Nucleated RBC % Sodium Potassium Chloride Carbon Dioxide Anion Gap BUN Creatinine Estim Creat Clear Calc Est GFR (MDRD) Af Amer Est GFR (MDRD) Non-Af BUN/Creatinine Ratio Glucose Calcium Troponin I < 0.015 Urine Opiates Screen NEGATIVE Urine Methadone Screen NEGATIVE Ur Barbiturates Screen NEGATIVE Ur Phencyclidine Scrn NEGATIVE Ur Amphetamines Screen NEGATIVE U Methamphetamin-MDMA NEGATIVE U Benzodiazepines Scrn NEGATIVE Urine Cocaine Screen NEGATIVE U Cannabinoids Screen NEGATIVE Ur Drug Screen Comment Acetone Level NEGATIVE 01/16/19 01/16/19 05:30 05:30 WBC 5.6 RBC 2.80 L Hgb 8.6 L Hct 26.4 L MCV 94.3 H MCH 30.7 MCHC 32.6 RDW Std Deviation 48.5 H RDW Coeff of Roberto 14.2 Plt Count 170 MPV 10.7 Immature Gran % (Auto) 1.400 H Neut % (Auto) 69.9 Lymph % (Auto) 14.8 L [place] % (Auto) 9.3 Eos % (Auto) 3.9 Baso % (Auto) 0.7 Absolute Neuts (auto) 3.9 Absolute Lymphs (auto) 0.83 Absolute Nucleated RBC 0.00 Nucleated RBC % 0 Sodium 134 L Potassium 4.4 Chloride 95 L Carbon Dioxide 28.0 Anion Gap 11 BUN 45 H Creatinine 6.00 H Estim Creat Clear Calc 13.29 Est GFR (MDRD) Af Amer 13 L Est GFR (MDRD) Non-Af 11 L BUN/Creatinine Ratio 7.5 L Glucose 302 H Calcium 8.0 L Troponin I Urine Opiates Screen Urine Methadone Screen Ur Barbiturates Screen Ur Phencyclidine Scrn Ur Amphetamines Screen U Methamphetamin-MDMA U Benzodiazepines Scrn Urine Cocaine Screen U Cannabinoids Screen Ur Drug Screen Comment Acetone Level POC Glucose 01/16/19 01/15/19 01/15/19 06:28 22:24 17:41 POC Glucose 285 H 393 H 195 H 01/15/19 09:51 POC Glucose 71 Medical Necessity - Tobacco Use Smoking Status: Never smoker Assessment/Plan All Active Problems (Last Reviewed 01/15/19 @ 07:38 by Eze Rivera MD) Hyperkalemia (Acute) Acute hyperkalemia (Acute) Fluid overload (Acute) Hypertension complications (Acute) Fever, unknown origin (Acute) Hyperglycemia due to type 1 diabetes mellitus (Acute) Accelerated hypertension (Acute) Diabetes (Acute) Hyperglycemia (Acute) Generalized weakness (Acute) Unable to ambulate (Acute) Acute encephalopathy (Acute) Shortness of breath (Acute) Left leg cellulitis (Acute) SIRS (systemic inflammatory response syndrome) (Acute) Periapical abscess (Acute) Anasarca (Acute) Edema (Acute) Abnormal stress test (Acute) Muscle cramp, nocturnal (Acute) Chest pain (Acute) Nausea and vomiting (Acute) Fever and chills (Acute) Malaise and fatigue (Acute) Preop cardiovascular exam (Acute) Acute diastolic (congestive) heart failure (Acute) Acute respiratory failure with hypoxia (Acute) 1. ESRD HD q. Monday. 2. Hypertension with stable blood pressure 3. Diabetes mellitus type 2 with noncompliance. primary service mgmt 4. Morbid obesity 5. Sleep apnea noncompliant with BiPAP 6. Altered mental status with mental status back to baseline. 7. Anemia TERESA therapy on hemodialysis
[2019-01-16] MEDS: hydrALAZINE 20 MG/ML Vial 10 MG IV (09:23)
[2019-01-16] MEDS: Isosorbide Mononitrate 30 MG Tablet PO (09:24)
[2019-01-16] MEDS: Multivitamin (Healthy Eyes) Capsule 1 CAP PO (09:24)
[2019-01-16] MEDS: Pantoprazole Sodium 40 MG Tablet PO (09:25)
[2019-01-16] MEDS: Lisinopril 10 MG Tablet PO (09:25)
[2019-01-16] MEDS: Gabapentin 300 MG Capsule PO (09:25)
[2019-01-16] MEDS: Furosemide 80 MG Tablet PO (09:25)
[2019-01-16] MEDS: Pyridoxine HCl 100 MG Tablet PO (09:25)
[2019-01-16] MEDS: Folic Acid/Vitamin B Comp W-C 1 Capsule 1 CAP PO (09:25)
[2019-01-16] MEDS: 0.9% NaCl Peripheral Flush Adult/Peds IV (09:27)
[2019-01-16] MEDS: Fluticasone 0.05% 1 SPRAY NASAL.SRY NASAL (09:33)
--- NOTE | 2019-01-16 11:02 | CASEMGMT ---
Addendum entered by Pedrito Hutton 01/16/19 14:30: Call placed to [facility] [employer] for rojas check. Therapeutic interchanges have been made and pt will now be getting Levemir and Novolog and there is $0 cost for both meds. Original Note: AMIRAH BAUER note: E-scripts have been sent to [facility] for Lantus and Humalog. Call placed to [facility] [employer] for rojas check. Per Vida @ [facility], insurance rejected both meds. Call placed to [facility] [employer] Prior auth dept @ . Per Liz @ [facility], she states both Lantus and Humalog are non-formulary. Per Liz, alternatives that ARE formulary: For Lantus: Levemir Flextouch, Tresiba Flextouch, and Basaglar Kwik Pen. For Humalog: Novolog Flexpen and Fiasp Flextouch Pen Message sent to [facility], and he was made aware. He states he will do a therapeutic interchange. Macie TORRES RN, CM
[2019-01-16 11:16] LABS: Bedside Glucose 414 mg/dL (70-110)
--- NOTE | 2019-01-16 11:27 | DCINST_ITS ---
- Discharge Diagnoses Current Active Problems: Current Active and Chronic Problems (Last Reviewed 01/15/19 @ 07:38 by Eze Rivera MD) Diabetes (Acute) Hyperglycemia (Acute) Generalized weakness (Acute) Unable to ambulate (Acute) Acute encephalopathy (Acute) You will use the following diet at home:: Calorie/Carbohydrate Controlled (specify 1200, 1400, etc) - 2000 stacie / day, Cardiac, Renal (restricted protein/sodium) Your food should be the consistency of: Regular, Soft (bite-sized & easy to chew/swallow) Discharge Activity: Return to Normal Activity Allergies/Adverse Reactions: Allergies venom-honey bee [bee venom (honey bee)] Allergy (Verified 01/15/19 02:43) Swelling sulfamethoxazole [From Bactrim] Adverse Reaction (Verified 01/15/19 02:43) Upset Stomach trimethoprim [From Bactrim] Adverse Reaction (Verified 01/15/19 02:43) Upset Stomach Medications to take at Discharge Atorvastatin Calcium [Lipitor] 20 mg PO QHS 10/11/17 Lisinopril [Zestril] 10 mg PO BID 10/11/17 Omeprazole 40 mg PO DAILY 10/11/17 Pyridoxine HCl [Vitamin B-6] 100 mg PO DAILY 10/11/17 Sevelamer HCl [Renagel] 800 mg PO TID 10/11/17 Vits A,C,E/Lutein/Minerals [Ocuvite with Lutein Tablet] 1 ea PO DAILY 10/11/17 Folic Acid/Vitamin B Comp W-C [Nephrocaps, Renaphro] 1 cap PO DAILY 10/27/17 FreeStyle Lite Strips See Dose Instructions .ROUTE .MEDSUPPLY #100 ea NS 11/29/17 albuterol sulfate HFA 90 mcg/actuation aerosol inhaler 2 puff INHALATION Q4H PRN #18 g 02/26/18 Aspirin E.C. [Ecotrin] 81 mg PO DAILY 03/23/18 Cyclobenzaprine HCl 10 mg PO TID PRN PRN 03/23/18 Fluticasone 0.05% [Flonase Nasal [place]] 1 spray NASAL DAILY 03/23/18 Furosemide [Lasix] 80 mg PO BID 03/23/18 Gabapentin [Neurontin] 300 mg PO BID 03/23/18 Calcitriol [Rocaltrol] 0.5 mcg PO DAILY 04/17/18 FreeStyle Venkatesh 14 Day [place] See Dose Instructions .ROUTE .MEDSUPPLY #1 ea NS 07/04/18 isosorbide mononitrate ER 30 mg tablet,extended release 24 hr 30 mg PO DAILY #30 tab 07/24/18 FreeStyle Venkatesh 14 Day Sensor See Dose Instructions .ROUTE .MEDSUPPLY #2 ea NS 08/27/18 Acetaminophen [Tylenol Tablet] 650 mg PO Q6H PRN PRN tablet 09/19/18 Guaifenesin Dm [Robitussin Dm] 10 ml PO Q6H PRN PRN #1 bottle 11/21/18 Insulin Glargine [Lantus SoloStar Pen] 20 units SUBCUT DAILY #1 pen 01/16/19 Insulin Lispro [Humalog KwikPen] See Protocol SUBCUT ACHS #1 insuln.pen 01/16/19 Pen Needle, Diabetic [Insulin Pen Needle] 1 [facility] UD #120 dis.needle 01/16/19 The following prescriptions were given: Insulin Lispro [Humalog KwikPen] See Protocol SUBCUT ACHS #1 insuln.pen Prescription Printed Pen Needle, Diabetic [Insulin Pen Needle] 1 [facility] UD #120 dis.needle Prescription Printed Insulin Glargine [Lantus SoloStar Pen] 20 units SUBCUT DAILY #1 pen Prescription Printed Primary Care Physician: Augie Washburn MD [Primary Care Provider] - Please follow up with your Primary Care Physician in: 2 weeks Test Results: Test results from this visit will be discussed in further detail at your follow- up appointment, if applicable. Please Follow Up With: Alejandra Greene NP-C When: 1 week Please Follow Up With: Anca Gregorio DO When: as directed Proposed Discharge Date: 01/16/19
--- NOTE | 2019-01-16 12:49 | CASEMGMT ---
RN CM NOTE: To room to talk with pt re: discharge planning. Pt state he would like to go back to [facility] for Out-pt PT and asked if script could be faxed to [facility]. Script obtained from [facility], and attempted to fax to [facility] per pt request x 3 attempts. Print out from fax stating line is busy. Call placed to [facility] and confirmed correct fax number being used and stated for this RN LIZETTE to keep trying to fax. Pt made aware fax is not going through successfully and he was given the original script. Made aware to contact [facility] in the next 1-2 days if he has not hear from them and that he may need to take original script in to them. Pt voices understanding. Macie NORWOODN RN CM
[2019-01-16] MEDS: BENZOCAINE/MENTHOL 1 LOZENGE 2 LOZENGE MUCOUS MEM (12:59)
[2019-01-16] MEDS: Phenol/Sodium Phenolate 180ML 5 SPRAY MM (12:59)
--- NOTE | 2019-01-16 13:40 | CASEMGMT ---
AMIRAH CM NOTE: Call placed to [facility] and they were made aware pt is being discharged from [facility] today. Macie TORRES RN CM
--- NOTE | 2019-01-16 13:43 | CASEMGMT ---
WILFREDO called Patricia Minor ( [phone]) at [facility] and let her know patient is being discharged today and he was given an order for outpatient therapy. She thanked WILFREDO for the phone call. Agatha SHEETS MSW
--- NOTE | 2019-01-16 14:35 | DS.PCM_ITS ---
Discharge Date and Diagnosis Date of Admission: 01/15/19 Date of Discharge: 01/16/19 - Primary Discharge Diagnosis Acute metabolic encephalopathy 2/2 metabolic acidosis 2/2 above DMt2 with hyperglycemia, poorly controlled Hx TIA SELMA Chronic hypoxic resp failure Chronic diastolic CHF Chronic anemia ESRD - Secondary Discharge Diagnosis Chronic Problems (Last Reviewed 01/15/19 @ 07:38 by Eze Rivera MD) Acute hyperglycemia (Chronic) Type 1 diabetes mellitus with hyperosmolarity without nonketotic hyperglycemic hyperosmolar coma (Chronic) End stage renal disease on dialysis due to type 1 diabetes mellitus (Chronic) End stage renal disease on dialysis (Chronic) Morbid obesity with BMI of 40.0-44.9, adult (Chronic) Pulmonary hypertension (Chronic) Morbid obesity with BMI of 40.0-44.9, adult (Chronic) Diabetes mellitus, type II (Chronic) Renal failure (Chronic) Noncompliance (Chronic) CHF (congestive heart failure) (Chronic) TIA (transient ischemic attack) (Chronic) Chronic respiratory failure with hypoxia (Chronic) HTN (hypertension) (Chronic) Acute on chronic diastolic CHF (congestive heart failure) (Chronic) Hyperlipidemia (Chronic) Diabetic neuropathy (Chronic) Anemia (Chronic) SELMA (obstructive sleep apnea) (Chronic) Hospital Course and Treatment Imaging Results: CT/Brain/Head without Contrast IMPRESSION: Normal unenhanced CT scan of the brain. RAD/Chest 1 View (Portable) IMPRESSION: No acute disease Operations: None Procedures: Dialysis Summary of Care Provided: Hospital course: The patient is a 48 year old M with pmhx as above who presented to the ER with altered mental status. He had recently had his insulin adjusted by his PCP and was placed on U500 - 120 units of insulin BID. He had noted large fluctuations following this from >500 blood sugar to <40. He was very weak and could not walk. He was lethargic with incoherent speech. Prior to coming in he checked his blood sugar which was too high to read. He took a sliding scale and came down to 460. He reported compliance with his CPAP, and his insulin, and had not missed dialysis. He was found to have high blood sugar in the ER. He was nonketotic. He was acidotic on the ABG. He was given sliding scale insulin and lantus while here. He had improved (albeit still poor) blood sugar during his stay with us. He used between 3 and 16 units of humalog and 20 units of lantus daily - far less than his home insulin regimen. Even with such a small dose in comparison to his home dose, the humalog initially decreased his blood sugar from the 400's into the 70's. This is suspicious for noncompliance with home regimen, however he is firm in his report of using it twice daily as directed. There is also concern that he may not be compliant with CPAP at home although he also insists he uses it daily. He complained of ongoing sore throat and was recently treated for strep - rechecked strep and this was negative. No other signs of infection. Dr. Gregorio provided dialysis while here. It was felt that his transient altered mental status was due to his flucuating glycemia at home. We advised him to discontinue his U500 and continue insulin levemir and humalog as we are currently giving it here. He needs to follow up with endocrinology - GARRICK Greene in [place] in 1 week and with his PCP in 1-2 weeks. Continue dialysis as directed by Dr. Gregorio he was discharged home in stable condition. THis patient was seen by Zachariah Meza PA-C under the supervision of Dr. Dasilva [] - Physical Exam General: Alert, Oriented x3, Cooperative HEENT: Atraumatic, PERRLA, EOMI, Normocephalic Neck: Supple, No JVD, Negative Carotid Bruits Lungs: Clear to auscultation, Normal air movement Cardiovascular: Regular rate, No murmurs Abdomen: Bowel Sounds Present, Soft, Non Tender, Obese Extremities: No edema, Capillary Refill Less than 3 Seconds Skin: No rashes, No breakdown Musculoskeletal: No Tenderness to Palpation of Joints or Extremities Neurological: Cranial nerves II-XII grossly intact Psych/Mental Status: Normal Affect, Appropriate Vital Signs Temp Pulse Resp BP Pulse Ox 97.5 F L 74 16 158/63 H 98 01/16/19 09:19 01/16/19 13:10 01/16/19 13:10 01/16/19 10:25 01/16/19 09:19 Oxygen Flow Rate (L/min) 2 Oxygen Delivery Method Nasal Cannula Weight: 285 lb 11.505 oz Body Mass Index (BMI) 46.0 Finger Stick Blood Glucose 191 Intake and Output for Last 24 Hours 01/14/19 01/15/19 01/16/19 23:59 23:59 23:59 Intake Total 300 / 300 320 / 320 Output Total 5000 / 5000 Balance -4700 / -4700 320 / 320 Microbiology Past 72 Hours 01/16/19 11:00 Group A Streptococcus Rapid Screen - Preliminary Mucosa - Throat 01/15/19 02:48 Respiratory Panel (PCR) - Final Mucosa - Nasopharyngeal Laboratory Tests Past 24 Hrs 01/16/19 01/16/19 05:30 05:30 WBC 5.6 RBC 2.80 L Hgb 8.6 L Hct 26.4 L MCV 94.3 H MCH 30.7 MCHC 32.6 RDW Std Deviation 48.5 H RDW Coeff of Roberto 14.2 Plt Count 170 MPV 10.7 Immature Gran % (Auto) 1.400 H Neut % (Auto) 69.9 Lymph % (Auto) 14.8 L [place] % (Auto) 9.3 Eos % (Auto) 3.9 Baso % (Auto) 0.7 Absolute Neuts (auto) 3.9 Absolute Lymphs (auto) 0.83 Absolute Nucleated RBC 0.00 Nucleated RBC % 0 Sodium 134 L Potassium 4.4 Chloride 95 L Carbon Dioxide 28.0 Anion Gap 11 BUN 45 H Creatinine 6.00 H Estim Creat Clear Calc 13.29 Est GFR (MDRD) Af Amer 13 L Est GFR (MDRD) Non-Af 11 L BUN/Creatinine Ratio 7.5 L Glucose 302 H Calcium 8.0 L POC Glucose 01/16/19 01/16/19 01/15/19 11:00 06:28 22:24 POC Glucose 414 H 285 H 393 H 01/15/19 17:41 POC Glucose 195 H Discharge Diet: Low fat/ Low Cholesterol, 1800 Calorie Control Diet, 2000 mg Sodium Diet, Renal Diet Discharge Activity: Return to Normal Activity Home Medications: Medications to take at Discharge Atorvastatin Calcium [Lipitor] 20 mg PO QHS 10/11/17 Lisinopril [Zestril] 10 mg PO BID 10/11/17 Omeprazole 40 mg PO DAILY 10/11/17 Pyridoxine HCl [Vitamin B-6] 100 mg PO DAILY 10/11/17 Sevelamer HCl [Renagel] 800 mg PO TID 10/11/17 Vits A,C,E/Lutein/Minerals [Ocuvite with Lutein Tablet] 1 ea PO DAILY 10/11/17 Folic Acid/Vitamin B Comp W-C [Nephrocaps, Renaphro] 1 cap PO DAILY 10/27/17 FreeStyle Lite Strips See Dose Instructions .ROUTE .MEDSUPPLY #100 ea NS 11/29/17 albuterol sulfate HFA 90 mcg/actuation aerosol inhaler 2 puff INHALATION Q4H PRN #18 g 02/26/18 Aspirin E.C. [Ecotrin] 81 mg PO DAILY 03/23/18 Cyclobenzaprine HCl 10 mg PO TID PRN PRN 03/23/18 Fluticasone 0.05% [Flonase Nasal [place]] 1 spray NASAL DAILY 03/23/18 Furosemide [Lasix] 80 mg PO BID 03/23/18 Gabapentin [Neurontin] 300 mg PO BID 03/23/18 Calcitriol [Rocaltrol] 0.5 mcg PO DAILY 04/17/18 FreeStyle Venkatesh 14 Day [place] See Dose Instructions .ROUTE .MEDSUPPLY #1 ea NS 07/04/18 isosorbide mononitrate ER 30 mg tablet,extended release 24 hr 30 mg PO DAILY #30 tab 07/24/18 FreeStyle Venkatesh 14 Day S[place] See Dose Instructions .ROUTE .MEDSUPPLY #2 ea NS 08/27/18 Acetaminophen [Tylenol Tablet] 650 mg PO Q6H PRN PRN tablet 09/19/18 Guaifenesin Dm [Robitussin Dm] 10 ml PO Q6H PRN PRN #1 bottle 11/21/18 Insulin Glargine [Lantus SoloStar Pen] 20 units SUBCUT DAILY #1 pen 01/16/19 Insulin Lispro [Humalog KwikPen] See Protocol SUBCUT ACHS #1 insuln.pen 01/16/19 Pen Needle, Diabetic [Insulin Pen Needle] 1 [facility] UD #120 dis.needle 01/16/19 Following Prescrptions Were Given to Patient: Insulin Lispro [Humalog KwikPen] See Protocol SUBCUT ACHS #1 insuln.pen Prescription Printed Pen Needle, Diabetic [Insulin Pen Needle] 1 [facility] UD #120 dis.needle Prescription Printed Insulin Glargine [Lantus SoloStar Pen] 20 units SUBCUT DAILY #1 pen Prescription Printed Primary Care Physician: Augie Washburn MD [Primary Care Provider] - Please follow up with your Primary Care Physician in: 2 weeks Please Follow Up With: Alejandra Greene NP-C When: 1 week Please Follow Up With: Anca Gregorio DO When: as directed Please Follow Up With: Augie Washburn MD Disposition: Home Minutes spent on discharge:: 35 Patient Condition:: Stable Medical Necessity - Tobacco Use Smoking Status: Never smoker Meaningful Use Info Meaningful Use Diagnoses (Choose all that apply): None applicable
--- NOTE | 2019-01-17 15:50 | CASEMGMT ---
RN CM discharge f/u phone call LACE: 12 Strata: 4 Discharge date: 01/16/19 Call date: 01/17/19 Call time: 1551 Attempted to reach pt without success at this time, message left with pt to call this RN CM back if/when able. SStaten RN CM Admission dx: Acute encephalopathy
== END 2019-01-16 14:21 | disposition home or self-care (01) | DRG 637 ==
LOC: ED 01-15 00:27 → MS3 01-15 01:30 → PCU 01-15 05:35
PROVIDERS: Physician Assistant; Admitting Provider Hospitalist; Emergency Provider Emergency Medicine; Family Provider Internal Medicine; PCP Internal Medicine; Referring Provider Hospitalist; Visit Provider Family Medicine
DX: E11.65 Type 2 diabetes mellitus with hyperglycemia (principal); G93.41 Metabolic encephalopathy; N18.6 End stage renal disease; Z68.42 Body mass index [BMI] 45.0-49.9, adult; J96.11 Chronic respiratory failure with hypoxia; I13.2 Hypertensive heart and chronic kidney disease with heart failure and with stage 5 chronic kidney disease, or end stage renal disease; I50.32 Chronic diastolic (congestive) heart failure; E87.2 Acidosis; E11.22 Type 2 diabetes mellitus with diabetic chronic kidney disease; E11.649 Type 2 diabetes mellitus with hypoglycemia without coma; G47.33 Obstructive sleep apnea (adult) (pediatric); E66.01 Morbid (severe) obesity due to excess calories; Z99.81 Dependence on supplemental oxygen; Z86.73 Personal history of transient ischemic attack (TIA), and cerebral infarction without residual deficits; Z99.2 Dependence on renal dialysis; D63.8 Anemia in other chronic diseases classified elsewhere; I27.20 Pulmonary hypertension, unspecified; Z79.4 Long term (current) use of insulin; Z91.19 Patient's noncompliance with other medical treatment and regimen; E78.5 Hyperlipidemia, unspecified; K21.9 Gastro-esophageal reflux disease without esophagitis; Z79.82 Long term (current) use of aspirin
CPT/HCPCS: 36415; 36600; 70450; 71045; 80048; 80076; 80307; 82009; 82607; 82803; 82962; 84443; 84484; 85025; 87633; 87880; 90937; 93005; 94002; 94003; 94640; 97162; 97166; 97802; 99285; J7030; A4216; G0257

== ENCOUNTER 2019-02-19 16:26 | Emergency (ER) | payer MEDICARE, SELFPAY ==
[2019-01-15 02:07] VITALS: BMI 46.0
[2019-02-19 16:27] VITALS: BP 139/59; PULSE 80; RESP 20; TEMP 37.3; O2SAT 93; BMI 42.7
[2019-02-19 16:33] VITALS: RESP 18
--- NOTE | 2019-02-19 16:33 | RAD_ITS ---
HISTORY:WEAK AND SHORTNESS OF BREATH AFTER DIALYSIS TODAY. FACE FEELS FLUSHED. BLOOD GLUCOSE WAS 525 PER EMS WEAK AND SHORTNESS OF BREATH AFTER DIALYSIS TODAY. FACE FEELS FLUSHED. BLOOD GLUCOSE WAS 525 PER EMS EXAM: XR Chest 2 Views: COMPARISON: January 14, 2019 FINDINGS: # of images incl. paperwork: 3 LINES/DEVICES: None. LUNGS: The overall appearance is similar to prior study. There is mild vascular prominence unchanged. No consolidation, edema or effusion. No pneumothorax. MEDIASTINUM AND CARDIOVASCULAR STRUCTURES: The cardiac silhouette is enlarged BONES AND SOFT TISSUES: Unremarkable. RAD/Chest PA and Lateral IMPRESSION: Mild vascular prominence however this is unchanged from prior study and may be a chronic finding Cardiomegaly similar to prior study at 1728 Reported and signed by: Melissa Toribio DO Electronically Signed: Melissa Toribio DO at 17:27 EDT Tel , Service support ,
--- NOTE | 2019-02-19 16:33 | EKG12_ITS ---
Test Reason : WEAKNESS Blood Pressure : / mmHG Vent. Rate : 081 BPM Atrial Rate : 081 BPM P-R Int : 148 ms QRS Dur : 086 ms QT Int : 420 ms P-R-T Axes : 038 012 198 degrees QTc Int : 487 ms Normal sinus rhythm ST & T wave abnormality, consider inferolateral ischemia Prolonged QT Abnormal ECG Confirmed by COMPA ALCALA ([id number]), graphics editor KULWINDER MARTINEZ ([id number]) on 02/25/2019 2:13:52 PM Referred By: JORGE Confirmed By:COMPA ALCALA
--- NOTE | 2019-02-19 16:34 | ED.VIS.GEN ---
History of Present Illness Chief Complaint: Weakness Detail of Chief Complaint: Weakness of legs and productive cough with shortness of breath Informant: Patient, Significant Other Onset: Today - 12 noon Context: Sudden Onset Timing: Continuous Quality: Respiratory and generalized Location: Pulmonary Current Severity: Mild Maximum Severity: Moderate Worsened by: Activity Relieved by: Nothing Associated Symptoms: Subjective fever and productive cough Narrative: Patient is a 48-year-old male with multiple medical problems who had dialysis today. He reports removal of 2 kg of fluid. The shortness of breath started after dialysis. He has had a productive cough for the past couple of days. It is not normal to be colored. He denies history of COPD. He states he never smoked. He does have history pneumonia. He denies orthopnea or PND. He does report intermittent pedal edema. He denies ocular, visual auditory symptoms. He denies rhinorrhea, nasal congestion, postnasal drip or sore throat. He denies chest discomfort. He denies history of pulmonary embolus or DVT. He denies nausea, vomiting diarrhea. He does make urine. He does not make much urine. Prior similar symptoms: Yes Recent Illness/Hospitalization: Yes - Past Medical History (1) Accelerated hypertension Status: Acute (2) Diabetes Status: Acute (3) Edema Status: Acute (4) Generalized weakness Status: Acute (5) Hyperglycemia Status: Acute (6) Hyperglycemia due to type 1 diabetes mellitus Status: Acute (7) Shortness of breath Status: Acute (8) Anemia Status: Chronic (9) CHF (congestive heart failure) Status: Chronic (10) Chronic respiratory failure with hypoxia Status: Chronic (11) Diabetic neuropathy Status: Chronic (12) End stage renal disease on dialysis due to type 1 diabetes mellitus Status: Chronic (13) Hyperlipidemia Status: Chronic (14) Morbid obesity with BMI of 40.0-44.9, adult Status: Chronic (15) SELMA (obstructive sleep apnea) Status: Chronic (16) Pulmonary hypertension Status: Chronic (17) TIA (transient ischemic attack) Status: Chronic Past Medical History - Allergies and Home Meds Allergies/Adverse Reactions: Allergies venom-honey bee [bee venom (honey bee)] Allergy (Verified 02/19/19 16:33) Swelling sulfamethoxazole [From Bactrim] Adverse Reaction (Verified 02/19/19 16:33) Upset Stomach trimethoprim [From Bactrim] Adverse Reaction (Verified 02/19/19 16:33) Upset Stomach Primary Care Physician: Augie Washburn MD [Primary Care Provider] - Prior records reviewed: Yes Surgical History: tonsillectomy, - - AV fistula in right arm. Lives: Spouse/ Significant Other Smoking Status: Never smoker Alcohol: None Drugs: None - Family History Maternal Family History: Family History (Last Reviewed 01/15/19 @ 01:57 by Eze Rivera MD) Mother Hypertension Heart disease Diabetes Father Hypertension Heart disease Brother Heart disease Family History: Reports: Diabetes, Heart Disease, Hypertension, Renal Disease Paternal Family History: Family History (Last Reviewed 01/15/19 @ 01:57 by Eze Rivera MD) Mother Hypertension Heart disease Diabetes Father Hypertension Heart disease Brother Heart disease Family History: Reports: Cancer - liver, Diabetes, Heart Disease Review of Systems General: Reports: Fever, Malaise, Subjective. Denies: Chills, Sweats Eyes: Denies: Visual changes - bilaterally, Blurred Vision - bilaterally, Diplopia ENT: Denies: Rhinorrhea, Sore throat Cardiovascular: Denies: Chest pain, Palpitations Respiratory: Reports: Dyspnea, Cough, Sputum, Dyspnea on exertion. Denies: Orthopnea, Paroxysmal nocturnal dyspnea, -, - Gastrointestinal: Denies: Abdominal pain, Nausea, Vomiting, Diarrhea, Melena, Hematochezia Genitourinary: Denies: Dysuria, Hematuria, Frequency Musculoskeletal: Denies: Back pain, Extremity Pain Skin: Denies: Rash, Wounds Neurological: Denies: Headache, Weakness, Numbness Hematologic: Denies: Easy bruising, Easy bleeding Allergy: Denies: Uticaria, Swelling of the mouth, Swelling of the tongue Physical Exam Vital Signs/Narrative: Vital Signs Temp Pulse Resp BP Pulse Ox 02/19/19 16:27 99.2 F H 80 20 H 139/59 H 93 Inital Vital Signs reviewed: Yes General: Well nourished, Well developed, Unkempt, No Acute Distress Head: Normocephalic, Atraumatic Eyes: Perrl, EOMI ENT: Moist mucous membranes, No rhinorrhea, TM's clear Neck: Supple, Nontender, No lymphadenopathy, No JVD Cardiovascular: Regular rate, Regular rhythm, No murmurs, Normal S1, Normal S2 Respiratory: No distress, CTA bilaterally, Chest nontender. Negative for: Rales, Rhonchi, Wheezing Abdomen: Soft, Nontender, Nondistended, Normal bowel sounds Back: Nontender, Normal Inspection Extremities: Nontender, Edema - 1+ bilaterally Skin: Normal color, No rash, No Trauma. Negative for: Cyanosis, Diaphoresis, Jaundice Neurological: Alert, Oriented x3, Cranial nerves II-XII grossly intact, Normal Strength, Normal Sensation Psychological: Normal affect, Normal Mood Diagnostic/Tx/Re-eval Chest X-Ray - ED: 2 View, Read by ED Physician, Normal, Bony Structures, No Acute Disease, Cardiomegaly, - - There is mild congestion of the lung parenchyma. It is unchanged from prior. There is no pleural effusion. Impressions Chest X-Ray 02/19/19 16:33 IMPRESSION: Mild vascular prominence however this is unchanged from prior study and may be a chronic finding Cardiomegaly similar to prior study at 1728 Reported and signed by: Melissa Toribio DO Electronically Signed: Melissa Toribio DO at 17:27 EDT Tel , Service support , 02/19/19 16:33 Chest PA and Lateral [RAD] Stat Laboratory Results 02/19/19 02/19/19 02/19/19 16:40 16:40 18:42 WBC 6.6 RBC 3.29 L Hgb 10.3 L Hct 30.5 L MCV 92.7 MCH 31.3 MCHC 33.8 RDW Std Deviation 47.6 H RDW Coeff of Roberto 14.4 Plt Count 191 MPV 10.1 Immature Gran % (Auto) 0.600 Neut % (Auto) 78.0 H Lymph % (Auto) 9.7 L [place] % (Auto) 7.1 Eos % (Auto) 3.8 Baso % (Auto) 0.8 Absolute Neuts (auto) 5.2 Absolute Lymphs (auto) 0.64 L Nucleated RBC % 0 Sodium 134 L Potassium 3.7 Chloride 96 L Carbon Dioxide 31.0 Anion Gap 7 BUN 30 H Creatinine 5.11 H Estim Creat Clear Calc 16.17 Est GFR (MDRD) Af Amer 16 L Est GFR (MDRD) Non-Af 13 L BUN/Creatinine Ratio 5.9 L Glucose 504 H* Calcium 7.5 L POC Glucose > 500 H* 02/19/19 19:52 WBC RBC Hgb Hct MCV MCH MCHC RDW Std Deviation RDW Coeff of Roberto Plt Count MPV Immature Gran % (Auto) Neut % (Auto) Lymph % (Auto) [place] % (Auto) Eos % (Auto) Baso % (Auto) Absolute Neuts (auto) Absolute Lymphs (auto) Nucleated RBC % Sodium Potassium Chloride Carbon Dioxide Anion Gap BUN Creatinine Estim Creat Clear Calc Est GFR (MDRD) Af Amer Est GFR (MDRD) Non-Af BUN/Creatinine Ratio Glucose Calcium POC Glucose 452 H* - EKG Initial EKG Interpretation: Sinus Rhythm - Circular rate is 81. NV interval is 148 ms. QRS duration 86 ms. QT duration 420 ms. [place] is normal. Computer is reading inferior lateral ischemic changes. This is unchanged from prior EKG dated January 15, 2019. Prior: Unchanged - Medical Decision Making With complaint of shortness of breath productive cough will obtain chest x-ray to assess for pneumonia. We will also assess electrolytes since he has history of electrolyte issues in the past since he also complains of generalized weakness. Differential diagnosis includes viral posterior infection, pneumonia, exacerbation of congestive heart failure, doubt pulmonary embolus. Because of his generalized weakness need to rule out electrolyte issues. I was informed by nurse blood sugars greater than 500. Need to rule out DKA since he has type 1 diabetes. ED Disposition - Plan for ED Patient: Disposition: Home or Assisted Living Diagnosis: Hyperglycemia due to type 1 diabetes mellitus, Purulent bronchitis, End stage renal disease on dialysis due to type 1 diabetes mellitus Instructions: ED Diabetic Hyperglycemia, BRONCHITIS, Antiobiotic Treatment (Adult) Prescriptions: Levofloxacin 250 mg PO DAILY #6 tab Transmission Status: Pending to [id number] Referrals: Augie Washburn MD [Primary Care Provider] - Additional Instructions: Your prescription was electronically transmitted to [facility]. Recommend follow-up Dr. Washburn for blood sugar recheck.
[2019-02-19 16:36] VITALS: O2SAT 95
[2019-02-19 16:55] LABS: Absolute Lymphocyte Count 0.64 X10^3/uL (0.83-4.51); Absolute Neutrophil Count 5.2 X10^3/uL (2.0-7.7); Basophil# 0.05 X10^3/uL; Basophil% 0.8 % (0-1); Eosinophil# 0.25 X10^3/uL; Eosinophils% 3.8 % (0-5); Hematocrit 30.5 % (40-54); Hemoglobin 10.3 g/dL (13.0-16.5); Lymphocyte # 0.64 X10^3/ul (4.0); Lymphocyte % 9.7 % (19-41); Mean Corp Hgb Conc 33.8 g/dL (32-36); Mean Corpuscular Hgb 31.3 pg (27.0-32.0); Mean Corpuscular Volume 92.7 fL (80-94); Mean Platelet Vol. 10.1 fl (6.2-12.0); Monocyte# 0.47 X10^3/uL; Monocyte% 7.1 % (0-10); NRBC Flagged by Analyzer 0 % (0-5); Neutrophil # 5.18 X10^3/uL (2.7-7.7); Platelet Count 191 K/mm3 (150-450); RBC Distribution Width CV 14.4 % (11.6-14.6); RBC Distribution Width SD 47.6 fl (35.1-43.9); Red Blood Count 3.29 M/mm3 (4.6-6.2); White Blood Count 6.6 K/mm3 (4.4-11.0)
[2019-02-19 17:22] LABS: Anion Gap 7 (5-15); BUN 30 mg/dL (7-18); BUN/Creat Ratio 5.9 RATIO (10-20); Calcium,Total 7.5 mg/dL (8.5-10.1); Chloride 96 mmol/L (98-107); Creatinine, Serum 5.11 mg/dL (0.70-1.30); EST Glomerular Filtration Rate 13 mL/min (>60); Est Glom Filt Rate - Afr Amer 16 mL/min (>60); Estimated Creatinine Clearance 16.17 ml/min; Glucose 504 mg/dL (74-106); Potassium 3.7 mmol/L (3.5-5.1); Sodium Level 134 mmol/L (136-145)
[2019-02-19] MEDS: levoFLOXacin 750 MG Tablet PO (17:42)
[2019-02-19] MEDS: Insulin Lispro 100 UNIT/ML INSULN.PEN 10 UNIT SC (17:44)
[2019-02-19 18:46] LABS: Bedside Glucose > 500 mg/dL (70-110)
[2019-02-19 18:49] VITALS: PULSE 82; RESP 18; O2SAT 98
[2019-02-19] MEDS: Insulin Lispro 100 UNIT/ML INSULN.PEN 15 UNIT SC ×2 (18:52→20:06)
[2019-02-19 19:56] LABS: Bedside Glucose 452 mg/dL (70-110)
[2019-02-19 20:08] VITALS: BP 187/76; PULSE 75; RESP 18; O2SAT 96
== END 2019-02-19 20:17 | disposition home or self-care (01) ==
PROVIDERS: Emergency Provider Emergency Medicine; Family Provider Internal Medicine; PCP Internal Medicine
DX: E10.65 Type 1 diabetes mellitus with hyperglycemia (principal); J41.1 Mucopurulent chronic bronchitis; I13.2 Hypertensive heart and chronic kidney disease with heart failure and with stage 5 chronic kidney disease, or end stage renal disease; E10.22 Type 1 diabetes mellitus with diabetic chronic kidney disease; N18.6 End stage renal disease; I50.9 Heart failure, unspecified; D63.1 Anemia in chronic kidney disease; J96.11 Chronic respiratory failure with hypoxia; E10.40 Type 1 diabetes mellitus with diabetic neuropathy, unspecified; E78.5 Hyperlipidemia, unspecified; E66.01 Morbid (severe) obesity due to excess calories; G47.33 Obstructive sleep apnea (adult) (pediatric); I27.20 Pulmonary hypertension, unspecified; Z99.2 Dependence on renal dialysis; Z68.41 Body mass index [BMI] 40.0-44.9, adult; Z79.4 Long term (current) use of insulin; Z79.82 Long term (current) use of aspirin; Z79.899 Other long term (current) drug therapy; Z86.73 Personal history of transient ischemic attack (TIA), and cerebral infarction without residual deficits
CPT/HCPCS: 71046; 80048; 82962; 85025; 93005; 99285; A4216

== ENCOUNTER 2019-03-12 14:02 | Inpatient (IN) | payer MEDICARE, SELFPAY ==
[2019-03-12] VITALS (10 sets, daily range): BP systolic 153–214; BP diastolic 74–99; PULSE 71–89; RESP 18–20; TEMP 36.4–36.9; O2SAT 98–100; BMI 40.7; BMI 40.0; BMI 40.8
--- NOTE | 2019-03-12 14:23 | RAD_ITS ---
STUDY: X-RAY - RIGHT FOOT CLINICAL: Male, 48 years old. Pain. Ulceration in the plantar aspect of the foot adjacent to the fifth metatarsal. TECHNIQUE: 3 view(s) of the foot. COMPARISON: None. FINDINGS: There is a plantar calcaneal spur. Normal visualized subtalar, talonavicular, calcaneocuboid, tarsal and tarsometatarsal articulations. Normal metatarsi. Normal metatarsophalangeal joint of the great toe. Normal tibial and fibular sesamoid bones. Normal interphalangeal joint of the great toe. Normal phalanges of the great toe. Normal second through fifth metatarsophalangeal joints. There appears to be bony destruction at the base of the proximal phalanx of the fourth and fifth toes. There is non-specific soft tissue swelling of the foot. Vascular calcification. RAD/Foot min 3 Views IMPRESSION: Soft tissue swelling. Vascular calcification. Findings suggestive of osteomyelitis at the base of the proximal phalanges of the fourth and fifth toes. Electronically Signed: Johnnie Aranda, at 15:04 EDT , Service support ,
--- NOTE | 2019-03-12 14:31 | RAD_ITS ---
STUDY: X-RAY - RIGHT TIBIA AND FIBULA REASON FOR EXAM: Male, 48 years old. Swelling of the left lower extremity. TECHNIQUE: AP and lateral view(s) of the tibia and fibula were obtained. COMPARISON: None. FINDINGS: Normal visualized tibia. Normal visualized fibula. There is non-specific soft tissue swelling. Atherosclerotic calcification. RAD/Tibia & Fibula 2 Views IMPRESSION: Soft tissue swelling. Atherosclerotic calcification. Electronically Signed: Johnnie Aranda, at 15:01 EDT , Service support ,
--- NOTE | 2019-03-12 14:39 | RAD_ITS ---
STUDY: X-RAY - LEFT FOOT CLINICAL: Male, 48 years old. Pain. History of diabetes. TECHNIQUE: view(s) of the foot. COMPARISON: None. FINDINGS: Normal talus, calcaneus, and tarsal bones. Normal visualized subtalar, talonavicular, calcaneocuboid, tarsal and tarsometatarsal articulations. Normal metatarsi. Normal metatarsophalangeal joint of the great toe. Normal tibial and fibular sesamoid bones. Normal interphalangeal joint of the great toe. Normal phalanges of the great toe. Normal second through fifth metatarsophalangeal joints. Normal interphalangeal joints and phalanges of the lesser toes. There is non-specific soft tissue swelling of the foot. Vascular calcification. RAD/Foot min 3 Views IMPRESSION: Soft tissue swelling. Vascular calcification. Electronically Signed: Johnnie Aranda, at 15:01 EDT , Service support ,
[2019-03-12] MEDS: HYDROcodone Bitartrate/Apap 5/325 Tablet PO (14:59)
--- NOTE | 2019-03-12 16:05 | ED.VISSUMM ---
- ER Visit Summary Date of Service: 03/12/19 Chief Complaint: Leg pain History of Present Illness: The patient is a 48 M with right leg pain for several days after he sustained a mechanical fall on Monday. He tripped. He complains of pain to his right lower leg only. No other injuries. He does attend dialysis Monday, , and Monday. He mentioned his pain today. They checked his feet and noticed some ulcers. He was referred to the ED. Physical Examination: Afebrile and vital signs unremarkable. He has a superficial ulceration to his bilateral feet. On the right side it is at the base of the fourth and fifth toes. He has diffuse pain to his right tibia and fibula. Compartments soft. He is neurovascularly intact. Test Results: Tib-fib x-ray was negative. Left foot x-ray unremarkable. Right foot showed osteo-at the base of the fourth and fifth toes. Emergency Department Course and Treatment: Patient presents with traumatic leg pain. His x-rays were negative. Nothing to suggest DVT or compartment syndrome or other complication. Out of an abundance of caution, I did obtain x-rays of the ulcers. They do not appear to be communicating with the bone however his right foot shows signs of osteomyelitis. Laboratory studies were ordered and they are pending. He was treated with pain meds, Zosyn, and vancomycin. We are awaiting consultation with podiatry. The oncoming physician will speak with podiatry and make the disposition. Treatment Plan: As above Disposition: Admit pending discussion with podiatry and medicine Impression: 1. Right foot osteomyelitis 2. Left foot cutaneous ulcer 3. Right ankle sprain 4. End-stage renal disease This note was generated with [employer] dictation software. It may contain incorrect words, spelling, and punctuation that were not noted in review of the chart prior to signing ED Disposition - Plan for ED Patient: Referrals: Augie Washburn MD [Primary Care Provider] -
[2019-03-12 16:28] LABS: Absolute Lymphocyte Count 0.71 X10^3/uL (0.83-4.51); Absolute Neutrophil Count 6.1 X10^3/uL (2.0-7.7); Basophil# 0.04 X10^3/uL; Basophil% 0.5 % (0-1); Eosinophil# 0.21 X10^3/uL; Eosinophils% 2.7 % (0-5); Hematocrit 34.8 % (40-54); Hemoglobin 11.4 g/dL (13.0-16.5); Lymphocyte # 0.71 X10^3/ul (4.0); Lymphocyte % 9.2 % (19-41); Mean Corp Hgb Conc 32.8 g/dL (32-36); Mean Corpuscular Hgb 29.8 pg (27.0-32.0); Mean Corpuscular Volume 91.1 fL (80-94); Mean Platelet Vol. 9.9 fl (6.2-12.0); Monocyte# 0.58 X10^3/uL; Monocyte% 7.5 % (0-10); NRBC Flagged by Analyzer 0 % (0-5); Neutrophil # 6.11 X10^3/uL (2.7-7.7); Neutrophil % 79.5 % (47-70); Platelet Count 200 K/mm3 (150-450); RBC Distribution Width CV 13.2 % (11.6-14.6); RBC Distribution Width SD 43.9 fl (35.1-43.9); Red Blood Count 3.82 M/mm3 (4.6-6.2); White Blood Count 7.7 K/mm3 (4.4-11.0)
[2019-03-12] MEDS: Morphine 4 MG/ML Syringe IV (16:28)
[2019-03-12 16:40] LABS: International Normalized Ratio 1.2; Prothrombin Time (Protime)PT. 14.8 SECONDS (11.7-14.9)
[2019-03-12 16:41] LABS: Partial Thromboplast Time 32.8 Seconds (24.1-36.2)
[2019-03-12 16:53] LABS: Erythrocyte Sedimentation Rate 99 mm/hr (0-20)
--- NOTE | 2019-03-12 17:37 | NURSING ---
MED SURG MARIE OSTEOMYELLITIS RT 4TH PROXIMAL PHALANX, DIABETIC FOOT ULCER,
[2019-03-12 17:47] LABS: Anion Gap 6 (5-15); BUN 13 mg/dL (7-18); Calcium,Total 7.7 mg/dL (8.5-10.1); Chloride 97 mmol/L (98-107); Creatinine, Serum 4.34 mg/dL (0.70-1.30); EST Glomerular Filtration Rate 15 mL/min (>60); Est Glom Filt Rate - Afr Amer 19 mL/min (>60); Estimated Creatinine Clearance 19.04 ml/min; Glucose 219 mg/dL (74-106); Potassium 3.2 mmol/L (3.5-5.1); Sodium Level 135 mmol/L (136-145)
--- NOTE | 2019-03-12 17:49 | ED.RN ---
DR. PATEL INFORMED OF PT BP ELEVATED. VERBAL ORDERS FOR HOME MEDS. WILL CONTINUE TO MONITOR. SEE AUG.
[2019-03-12] MEDS: Lisinopril 10 MG Tablet PO (17:58)
--- NOTE | 2019-03-12 18:02 | PCM.HP.STD ---
<Zachariah Meza - Last Filed: 03/12/19 18:09> Problem List (1) Osteomyelitis Status: Acute (2) Type 1 diabetes mellitus Status: Chronic (3) Morbid obesity with BMI of 40.0-44.9, adult Status: Chronic (4) Noncompliance Status: Chronic (5) CHF (congestive heart failure) Status: Chronic (6) TIA (transient ischemic attack) Status: Chronic (7) Pulmonary hypertension Status: Chronic (8) Morbid obesity with BMI of 40.0-44.9, adult Status: Chronic (9) End stage renal disease on dialysis Status: Chronic (10) HTN (hypertension) Status: Chronic (11) Hyperlipidemia Status: Chronic (12) Diabetic neuropathy Status: Chronic (13) Anemia Status: Chronic (14) SELMA (obstructive sleep apnea) Status: Chronic History of Present Illness Date of Admission: 03/12/19 Chief Complaint: foot wounds The patient is a 48 year old M with pmhx of ESRD, T1DM, CHF, Pulmonary HTN, Morbid obesity, SELMA, diabetic neuropathy, TIA, who presented to the ER for right leg pain. He tripped and fell in his driveway and landed on his Right Knee on Monday. He has had severe pain in this knee which is why he came to the ER. He also was found to have two foot wounds, one on each side, at dialysis today. He completed the whole session. Computer Repair Engineer is Dr. Gregorio. He was unaware of these injuries, and cannot recall how he got them. He has neuropathy in his feet and has no feeling at all in his toes. He also was recently [facility] by Dr[facility] Bacte[facility]. We do not have those results. Reportedly his most recent culture showed clearing. In the ER he had a right tib fib xray (negative) and BL feet xrays. The right foot xray shows osteomyelitis. He denies having foot infections on the past. Also of note, the patients has been admitted in a psych unit. She normally manages all his medications. Since Monday he has not taken any medication at all because his was not there to give them to him. He denies fever/chills. He did vomit once yesterday. No diarrhea. No cough or SOB. No dysuria. [] Past Medical History Past Medical History (Chronic Problems): Chronic Problems (Last Updated 03/12/19 @ 17:43 by Kayla Tamayo MD) Type 1 diabetes mellitus (Chronic) Morbid obesity with BMI of 40.0-44.9, adult (Chronic) Noncompliance (Chronic) CHF (congestive heart failure) (Chronic) Abnormal stress test (Chronic) TIA (transient ischemic attack) (Chronic) Pulmonary hypertension (Chronic) Morbid obesity with BMI of 40.0-44.9, adult (Chronic) End stage renal disease on dialysis (Chronic) Chronic respiratory failure with hypoxia (Chronic) HTN (hypertension) (Chronic) Hyperlipidemia (Chronic) Diabetic neuropathy (Chronic) Anemia (Chronic) SELMA (obstructive sleep apnea) (Chronic) Medical History: Medical History (Last Updated 03/12/19 @ 17:43 by Kayla Tamayo MD) Chronic respiratory failure with hypoxia (Chronic) J96.11 HTN (hypertension) (Chronic) I10 Hyperlipidemia (Chronic) E78.5 Diabetic neuropathy (Chronic) E11.40 Anemia (Chronic) D64.9 SELMA (obstructive sleep apnea) (Chronic) G47.33 ESRD (end stage renal disease) on dialysis N18.6, Z99.2 cataract surgery, l eye Hypotension I95.9 Morbid obesity E66.01 Type 2 diabetes mellitus with other diabetic kidney complication E11.29 dx : age 16 last exacerbation : dka : never hypoglycemic episode : 2012 er visit : 2013 Allergies venom-honey bee [bee venom (honey bee)] Allergy (Verified 02/19/19 16:33) Swelling sulfamethoxazole [From Bactrim] Adverse Reaction (Verified 02/19/19 16:33) Upset Stomach trimethoprim [From Bactrim] Adverse Reaction (Verified 02/19/19 16:33) Upset Stomach Home Medications: Ambulatory Orders Medication Instructions Recorded Atorvastatin Calcium [Lipitor] 20 mg PO QHS 10/11/17 Lisinopril [Zestril] 10 mg PO DAILY 10/11/17 Pyridoxine HCl [Vitamin B-6] 100 mg PO DAILY 10/11/17 Sevelamer HCl [Renagel] 800 mg PO TID 10/11/17 Vits A,C,E/Lutein/Minerals 1 ea PO DAILY 10/11/17 [Ocuvite with Lutein Tablet] Folic Acid/Vitamin B Comp W-C 1 cap PO DAILY 10/27/17 [Nephrocaps, Renaphro] albuterol sulfate HFA 90 2 puff INHALATION Q4H PRN #18 g 02/26/18 mcg/actuation aerosol inhaler Aspirin E.C. [Ecotrin] 81 mg PO DAILY 03/23/18 Cyclobenzaprine HCl 10 mg PO TID PRN PRN 03/23/18 Fluticasone 0.05% [Flonase Nasal 1 spray NASAL DAILY 03/23/18 [place]] Gabapentin [Neurontin] 300 mg PO BID 03/23/18 Calcitriol [Rocaltrol] 0.5 mcg PO DAILY 04/17/18 isosorbide mononitrate ER 30 mg 30 mg PO DAILY #30 tab 07/24/18 tablet,extended release 24 hr Acetaminophen [Tylenol Tablet] 650 mg PO Q6H PRN PRN tablet 09/19/18 Guaifenesin Dm [Robitussin Dm] 10 ml PO Q6H PRN PRN #1 bottle 11/21/18 Ciprofloxacin HCl 500 mg PO BID 03/12/19 Furosemide [Lasix] 40 mg PO BID 03/12/19 Insulin Glargine [Lantus SoloStar 20 units SUBCUT DAILY 03/12/19 Pen] Insulin U-500 [Humulin R U-500 85 units SQ BID 03/12/19 ([facility])] Metoprolol Tartrate [Lopressor 50 mg PO BID 03/12/19 (beta khoa)] Omeprazole 40 mg PO DAILY 03/12/19 Sucroferric Oxyhydroxide [Velphoro] 1,000 mg PO TID 03/12/19 Surgical History: Surgical History (Last Reviewed 07/16/18 @ 12:34 by Claudette Cheek) S/P tonsillectomy Z90.89 dialysis fistula Rt Arm Surgical History: tonsillectomy, - - AV fistula in right arm. Psychiatric History: No pertinent psych hx Lives: Spouse/ Significant Other Smoking Status: Never smoker Tobacco Use: Non-smoker Alcohol: None Drugs: None - *Family History Maternal Family History: Family History (Last Reviewed 01/15/19 @ 01:57 by Eze Rivera MD) Mother Hypertension Heart disease Diabetes Father Hypertension Heart disease Brother Heart disease History Items: Diabetes, Heart Disease, Hypertension, Renal Disease Paternal Family History: Family History (Last Reviewed 01/15/19 @ 01:57 by Eze Rivera MD) Mother Hypertension Heart disease Diabetes Father Hypertension Heart disease Brother Heart disease History Items: Cancer - liver, Diabetes, Heart Disease Review of Systems Constitutional: Denies: Chills, Fever, Weight Change HEENT: Denies: Head Aches, Sinus Congestion, Sinus Drainage Cardiovascular: Reports: Edema - Right leg. Denies: Chest Pressure, Chest Tightness, Light Headedness, Palpitations, Syncope Respiratory: Denies: Cough, Shortness of Breath, Shortness of breath at rest, Shortness of breath upon exertion, Sputum production, Wheezing Gastrointestinal: Reports: Vomiting. Denies: Abdominal Pain, Diarrhea, Nausea Genitourinary: Denies: Dysuria, Hematuria, Incontinence, Retention, Urgency Musculoskeletal: Reports: Joint swelling - right knee swelling, - - right distal leg pain and swelling.. Denies: Joint Pain, Joint Tenderness, Muscle pain Skin: Reports: Wounds - BL feet wounds.. Denies: Rash Neurological: Denies: Numbness, Tingling, Focal weakness Psychiatric: Denies: Anxiety, Depression, Homicidal Ideations, Suicidal Ideations Hematologic/ Lymphatic: Denies: Easy Bruising, Easy Bleeding VTE Information - Inpt Only VTE Present on Admission: No VTE Mechan Device Prophylaxis: None VTE Pharm Prophylaxis ordered?: Yes Patient Problems: Active and Suspected Problems (Last Updated 03/12/19 @ 17:43 by Kayla Tamayo MD) Osteomyelitis (Acute) - Physical Exam General: Alert, Oriented x3, Cooperative, - - malodorous HEENT: Atraumatic, PERRLA, EOMI, Normocephalic Neck: Supple, No JVD, Negative Carotid Bruits Lungs: Clear to auscultation, Normal air movement, No rhonchi, No wheeze, No rales Cardiovascular: Regular rate, No murmurs Abdomen: Bowel Sounds Present, Soft, Non Tender, Obese Extremities: No edema, Capillary Refill Less than 3 Seconds, Edema - RLE edema. tender to light palp over the aguayo. non pitting. Skin: Ulcer/ Wound - Right foot wound at the distal 4th/5th metatarsal with erythema and tenderness. Left foot small annular lesion that is shallow, non inflamed. Dry skin BL feet. Musculoskeletal: No Tenderness to Palpation of Joints or Extremities, - - knee mildly swollen, nontender to palp or ballotment. Neurological: Cranial nerves II-XII grossly intact Psych/Mental Status: Normal Affect, Appropriate, Alert and oriented to time, place, person, mood and affect Vital Signs Temp Pulse Resp BP Pulse Ox 98.3 F 71 19 H 214/89 H 98 03/12/19 17:46 03/12/19 17:46 03/12/19 17:46 03/12/19 17:52 03/12/19 17:46 Oxygen Flow Rate (L/min) 3 Oxygen Delivery Method Nasal Cannula Weight: 260 lb 2.327 oz Body Mass Index (BMI) 40.7 Finger Stick Blood Glucose 191 Intake and Output for Last 24 Hours 03/10/19 03/11/19 03/12/19 23:59 23:59 23:59 Intake Total 50 / 50 Balance 50 / 50 Laboratory Tests Past 24 Hrs 03/12/19 03/12/19 03/12/19 16:20 16:20 16:20 WBC 7.7 RBC 3.82 L Hgb 11.4 L Hct 34.8 L MCV 91.1 MCH 29.8 MCHC 32.8 RDW Std Deviation 43.9 RDW Coeff of Roberto 13.2 Plt Count 200 MPV 9.9 Immature Gran % (Auto) 0.600 Neut % (Auto) 79.5 H Lymph % (Auto) 9.2 L [place] % (Auto) 7.5 Eos % (Auto) 2.7 Baso % (Auto) 0.5 Absolute Neuts (auto) 6.1 Absolute Lymphs (auto) 0.71 L Nucleated RBC % 0 ESR 99 H PT 14.8 INR 1.2 APTT 32.8 Sodium 135 L Potassium 3.2 L Chloride 97 L Carbon Dioxide 32.0 Anion Gap 6 BUN 13 Creatinine 4.34 H Estim Creat Clear Calc 19.04 Est GFR (MDRD) Af Amer 19 L Est GFR (MDRD) Non-Af 15 L BUN/Creatinine Ratio 3.0 L Glucose 219 H Calcium 7.7 L C-React Prot Ext Range 85.40 H Assessment/Plan All Active Problems (Last Updated 03/12/19 @ 17:43 by Kayla Tamayo MD) Osteomyelitis (Acute) 1. Acute osteomyelitis right foot - see xray report. Pt does not know how he obtained this wound or the left foot wound. Denies prior foot infections. C/s podiatry. Start vanc and zosyn. MRSA/MSSA for PCR. Wound culture. Wound care consult. No fever/leukocytosis. Lactate neg. -Recent + blood cultures from dialysis center - obtain records. Has been on outpatient Cipro. -Pulses are diminished in his feet. May benefit from PVRs. -CRP 85, ESR 99. 2. Medication Noncompliance - the patient has a documented hx of noncompliance. Most notably he admits that since his has not been home (admitted to psych facility) he has not taken any of his medications since Monday. He says this is because he relies on her to give them to him. 3. HTN urgency - 2/2 2#2. Resume home meds. 4. DMt1, with morbid obesity, and with peripheral neuropathy - continue home insulin regimen + SSI and titrate to response. Follows [facility] in [place]. 5. ESRD - c/s Dr. Gregorio. Completed full dialysis today. 6. Hx Chronic Diastolic CHF - no exacerbation. 7. Hx TIA - asa/statin 8. SELMA - not compliant with bipap 9. Chronic hypoxic respiratory failure - not currently on O2. No hypoxia. 10. GERD - PPI. DVT ppx: heparin DC planning: PTOT. Without his at home to administer meds and care for his wounds he likely is unsafe to be at home. This patient was seen by Zachariah Meza PA-C under the supervision of Dr. Tamayo. <Kayla Tamayo - Last Filed: 03/12/19 19:16> History of Present Illness The patient is a 48 year old M [] Past Medical History Medical History: Medical History (Last Updated 03/12/19 @ 17:43 by Kayla Tamayo MD) Chronic respiratory failure with hypoxia (Chronic) J96.11 HTN (hypertension) (Chronic) I10 Hyperlipidemia (Chronic) E78.5 Diabetic neuropathy (Chronic) E11.40 Anemia (Chronic) D64.9 SELMA (obstructive sleep apnea) (Chronic) G47.33 ESRD (end stage renal disease) on dialysis N18.6, Z99.2 cataract surgery, l eye Hypotension I95.9 Morbid obesity E66.01 Type 2 diabetes mellitus with other diabetic kidney complication E11.29 dx : age 16 last exacerbation : dka : never hypoglycemic episode : 2012 er visit : 2013 Allergies venom-honey bee [bee venom (honey bee)] Allergy (Verified 02/19/19 16:33) Swelling sulfamethoxazole [From Bactrim] Adverse Reaction (Verified 02/19/19 16:33) Upset Stomach trimethoprim [From Bactrim] Adverse Reaction (Verified 02/19/19 16:33) Upset Stomach Surgical History: Surgical History (Last Reviewed 07/16/18 @ 12:34 by Claudette Cheek) S/P tonsillectomy Z90.89 dialysis fistula Rt Arm - *Family History Maternal Family History: Family History (Last Reviewed 01/15/19 @ 01:57 by Eze Rivera MD) Mother Hypertension Heart disease Diabetes Father Hypertension Heart disease Brother Heart disease Paternal Family History: Family History (Last Reviewed 01/15/19 @ 01:57 by Eze Rivera MD) Mother Hypertension Heart disease Diabetes Father Hypertension Heart disease Brother Heart disease - Physical Exam Vital Signs Temp Pulse Resp BP Pulse Ox 98.3 F 71 19 H 214/89 H 98 03/12/19 17:46 03/12/19 17:46 03/12/19 17:46 03/12/19 17:52 03/12/19 17:46 Oxygen Flow Rate (L/min) 3 Oxygen Delivery Method Room Air Weight: 260 lb 12.909 oz Body Mass Index (BMI) 40.8 Finger Stick Blood Glucose 191 Intake and Output for Last 24 Hours 03/10/19 03/11/19 03/12/19 23:59 23:59 23:59 Intake Total 50 / 50 Balance 50 / 50 Laboratory Tests Past 24 Hrs 03/12/19 03/12/19 03/12/19 16:20 16:20 16:20 WBC 7.7 RBC 3.82 L Hgb 11.4 L Hct 34.8 L MCV 91.1 MCH 29.8 MCHC 32.8 RDW Std Deviation 43.9 RDW Coeff of Roberto 13.2 Plt Count 200 MPV 9.9 Immature Gran % (Auto) 0.600 Neut % (Auto) 79.5 H Lymph % (Auto) 9.2 L [place] % (Auto) 7.5 Eos % (Auto) 2.7 Baso % (Auto) 0.5 Absolute Neuts (auto) 6.1 Absolute Lymphs (auto) 0.71 L Nucleated RBC % 0 ESR 99 H PT 14.8 INR 1.2 APTT 32.8 Sodium 135 L Potassium 3.2 L Chloride 97 L Carbon Dioxide 32.0 Anion Gap 6 BUN 13 Creatinine 4.34 H Estim Creat Clear Calc 19.04 Est GFR (MDRD) Af Amer 19 L Est GFR (MDRD) Non-Af 15 L BUN/Creatinine Ratio 3.0 L Glucose 219 H Calcium 7.7 L C-React Prot Ext Range 85.40 H POC Glucose 03/12/19 18:53 POC Glucose 167 H Assessment/Plan Hospitalist note: I am seeing this patient in conjunction with Zachariah Meza. I independently seen and examined the patient. History and physical, laboratory data and imaging studies reviewed and I concur with the above admission treatment plan. Patient presented to the emergency room because of right foot pain. He did mention that he tripped off and fell on his driveway and landed on his right knee 4 days ago. He mentioned that the wound on the right foot started around 2 weeks ago and he has some right foot pain as well. Today, he was found to have wounds on the plantar aspect of both feet at the dialysis center and he was sent to ED for evaluation. Patient was treated by his special machine operator, Dr. Gregorio, with ciprofloxacin and he completed 2 weeks of treatment. Patient denies any fever or chills. He has history of uncontrolled type 1 diabetes mellitus, patient has been noncompliant and his A1c was 12.2 on October,. He had history of ESRD on hemodialysis and he goes on dialysis on Monday, and Saturdays. He has history of chronic diastolic CHF, has been on diuretics, nitrates, metoprolol and lisinopril and has been compensated and stable. Today in the emergency department, he was afebrile, heart rate stable, blood pressure was elevated, pulse ox was 98% on 3 L. Routine blood work was remarkable for hemoglobin of 11.4 g/dL, sodium of 3.2, creatinine 4.34. ESR and CRP were highly elevated. X-ray of the right foot revealed findings suggestive of osteomyelitis of the base of the proximal phalanx of the fourth and fifth toes. X-ray of the left foot revealed soft tissue swelling. - Physical Exam General: Alert, Oriented x3, Cooperative, No apparent distress. HEENT: Atraumatic, PERRLA, EOMI. Neck: Supple, No JVD, Negative Carotid Bruits, Trachea Midline, Thyroid Normal. Lungs: Decreased breath sounds bilateral, otherwise clear no rhonchi, No wheeze, No rales. Cardiovascular: Regular rate, Regular Rhythm, Normal S1, Normal S2, PMI Normal. Abdomen: Bowel Sounds Present, Soft, Non Tender, Non-Distended, No Hepato-splenomegaly, obese. Extremities: No clubbing, No cyanosis, trace edema edema Skin: Right foot: Area of erythema and black discoloration on the plantar aspect of the right foot just under the proximal phalanx of the fourth and fifth digit, tenderness. Left foot: Small rounded nonhealing ulcer on the plantar aspect of the left forefoot, no significant erythema or drainage. Neurological: Cranial nerves are intact, neuro grossly intact Assessment and plan: #1 acute right fourth and fifth proximal phalanx osteomyelitis: X-ray of the right foot reviewed. Patient is diabetic, has neuropathy. No evidence of sepsis or severe sepsis. Plan: Admit to Med[facility] floor, blood culture, wound culture, MRSA wound screen, start IV vancomycin and Zosyn, IV fluids, IV morphine PRN for pain, OxyIR as needed for pain, podiatry medicine consult, repeat CBC and BMP tomorrow morning, arterial Doppler of bilateral extremities, PT OT evaluation and treatment. #2 acute nonhealing left forefoot ulcer: Without evidence of significant infection, no erythema, no drainage. Plan as above. #3 hypokalemia: Replace with oral potassium chloride, repeat BMP tomorrow morning. #4 ESRD: On hemodialysis. BUN is normal, creatinine is 4.34. Patient went for dialysis today. Plan for nephrology consult. #5 uncontrolled type 1 diabetes mellitus: Hemoglobin A1c was 12.2 on October,. Patient is noncompliant. In addition, blood glucose was 219. Plan: ADA diet, Accu-Cheks, hemoglobin A1c, sliding scale, continue home doses of Lantus and Humulin RU 500. #6 other chronic medical problems: Stable, continue current medication as above. This note was generated with [employer] software. It may contain incorrect words, spelling, and punctuation that were not noted in checking the note before signing. Code Visit Inpatient E&M: 10040 Init Hosp L3
[2019-03-12 18:56] LABS: Bedside Glucose 167 mg/dL (70-110)
[2019-03-12] MEDS: 0.9% Normal Saline 1,000 ML 100 ML IV (19:02)
--- NOTE | 2019-03-12 19:02 | PCM.RX.CS ---
Consult Pharmacy has been consulted to manage selected antiobiotic: Vancomycin Type of Consult: New start Suspected Infection: Osteomyelitis Prior Doses of Antibiotics Received/Current Regimen: Vancomycin 1750mg IV x1 was ordered in E.R. and started at 17:29 tonight. Labs: Sodium 135 mmol/L (136-145) L 03/12/19 16:20 Potassium 3.2 mmol/L (3.5-5.1) L 03/12/19 16:20 Chloride 97 mmol/L (98-107) L 03/12/19 16:20 Carbon Dioxide 32.0 mmol/L (21.0-32.0) 03/12/19 16:20 Anion Gap 6 (5-15) 03/12/19 16:20 BUN 13 mg/dL (7-18) 03/12/19 16:20 Creatinine 4.34 mg/dL (0.70-1.30) H 03/12/19 16:20 Est GFR (MDRD) Af Amer 19 mL/min (>60) L 03/12/19 16:20 Est GFR (MDRD) Non-Af 15 mL/min (>60) L 03/12/19 16:20 BUN/Creatinine Ratio 3.0 RATIO (10-20) L 03/12/19 16:20 Glucose 219 mg/dL (74-106) H 03/12/19 16:20 Weight used for dosin kg Goal Trough: 15-20 mcg/mL Pharmacy Plan for Drug Dosing: Patient has already been given a dose tonight in E.R. A second dose of vancomycin will then be ordered to be given after the next dialysis session, according to our [facility] vancomycin dosing protocol, based on the patient's weight. Pharmacy will enter that dose when the day of the next dialysis session is known. Any doses after that will be determined by pre-dialysis random vancomycin levels. Pharmacy Service will continue to monitor and adjust dosing as required.
[2019-03-12] MEDS: hydrALAZINE 20 MG/ML Vial 10 MG IV (19:06)
--- NOTE | 2019-03-12 19:18 | ART_ITS ---
Reason For Study: Nonhealing lt foot ulcer, Rt foot osteomyelitis Procedure A bilateral lower extremity continuous wave Doppler with analog waveform analysis,segmental pressures,and ankle brachial indexes without exercise. Left Segmental Pressures Left brachial= 146mmHg. Left posterior tibial artery = >254mmHg. Left dorsalis pedis artery = >254mmHg. Left digit = 54 mmHg. The left dorsalis pedis waveforms are biphasic. The left posterior tibial artery waveforms are biphasic. Right Segmental Pressures Right posterior tibial artery = >254mmHg. Right dorsalis pedis artery = >254mmHg. Right digit = 64 mmHg. The right dorsalis pedis waveforms are biphasic. The right posterior tibial artery waveforms are biphasic. Indices The right ankle brachial index by the dorsalis pedis is NC. The right ankle brachial index by the posterior tibial artery is NC. The right digital-brachial index is 0.44. The left ankle brachial index by the dorsalis pedis is NC. The left ankle brachial index by the posterior tibial artery is NC. The left digital-brachial index is 0.37. Interpretation Summary Abnormal bilateral lower extremity arterial exam with non-compressible vessels making interpretation difficult. Abnormal digital indices would suggest severe or multi level disease bilaterally Lack of amplification of bilateral superficial femoral arteries suggest femoral popliteal occlusive disease bilaterally. Right brachial pressure is noted to be unable to be obtained. Ordering Physician: Kayla Tamayo Referring Physician: Augie Washburn M.D. Performed By: Ade Fox RVT
--- NOTE | 2019-03-12 19:31 | PCM.CONS.GEN ---
Problem List (1) Peripheral vascular disease Status: Suspected (2) Malnutrition Status: Suspected (3) Toe fracture, right Status: Chronic Qualifiers: Toe: lesser toe Fracture type: closed Phalanx: proximal Fracture alignment: nondisplaced (4) Non-pressure chronic ulcer of other part of right foot with fat layer exposed Status: Chronic (5) Non-pressure chronic ulcer of other part of left foot with fat layer exposed Status: Chronic (6) Type 1 diabetes mellitus Status: Chronic Qualifiers: Diabetes mellitus complication status: with other specified complication Qualified Code(s): E10.69 - Type 1 diabetes mellitus with other specified complication (7) Noncompliance Status: Chronic (8) Osteomyelitis Status: Acute Qualifiers: Osteomyelitis location: foot Laterality: right Comment: differential diagnosis Reason for Consult Date of Consultation: 03/12/19 Reason for Consultation: Foot ulcers History of Present Illness: The patient is a 48 year old M with multiple comorbidities including type 1 diabetes with neuropathy, morbid obesity, noncompliance, congestive heart failure, stroke, pulmonary hypertension, end-stage renal disease on dialysis, hypertension, anemia, hyperlipidemia, obstructive sleep apnea presented to the emergency room due to mechanical fall with right knee and leg pain. He relates the fall occurred on Monday and his was not home to take care of him. Upon presentation at the emergency room was also noted that he had foot ulcers on each side. The patient relates he thinks they have been present for about 2 weeks. He admits he cannot see the bottoms of his feet and he repeats his has been slacking off with taking care of his feet and he is not able to participate in his own care. He denies any known injury. He denies known odor or redness around the ulcer sites. His outpatient inbound customer service agent is Dr. Dodson at the [facility]. He relates he is cramping at rest and with walking and admits he does not walk very far. He does have rest burning and tingling that is consistent with neuropathy. He admits he did have a vascular test done over several years ago in which she was not able to complete the walking portion of the test due to discomfort. He denies seeing a previous vascular specialist. Past Medical History Past Medical History (Chronic Problems): Chronic Problems (Last Updated 03/12/19 @ 17:43 by Kayla Tamayo MD) Toe fracture, right (Chronic) Non-pressure chronic ulcer of other part of right foot with fat layer exposed (Chronic) Non-pressure chronic ulcer of other part of left foot with fat layer exposed (Chronic) Type 1 diabetes mellitus (Chronic) Morbid obesity with BMI of 40.0-44.9, adult (Chronic) Noncompliance (Chronic) CHF (congestive heart failure) (Chronic) Abnormal stress test (Chronic) TIA (transient ischemic attack) (Chronic) Pulmonary hypertension (Chronic) Morbid obesity with BMI of 40.0-44.9, adult (Chronic) End stage renal disease on dialysis (Chronic) Chronic respiratory failure with hypoxia (Chronic) HTN (hypertension) (Chronic) Hyperlipidemia (Chronic) Diabetic neuropathy (Chronic) Anemia (Chronic) SELMA (obstructive sleep apnea) (Chronic) Medical History: Medical History (Last Updated 03/12/19 @ 17:43 by Kayla Tamayo MD) Chronic respiratory failure with hypoxia (Chronic) J96.11 HTN (hypertension) (Chronic) I10 Hyperlipidemia (Chronic) E78.5 Diabetic neuropathy (Chronic) E11.40 Anemia (Chronic) D64.9 SELMA (obstructive sleep apnea) (Chronic) G47.33 ESRD (end stage renal disease) on dialysis N18.6, Z99.2 cataract surgery, l eye Hypotension I95.9 Morbid obesity E66.01 Type 2 diabetes mellitus with other diabetic kidney complication E11.29 dx : age 16 last exacerbation : dka : never hypoglycemic episode : 2012 er visit : 2013 Allergies venom-honey bee [bee venom (honey bee)] Allergy (Verified 02/19/19 16:33) Swelling sulfamethoxazole [From Bactrim] Adverse Reaction (Verified 02/19/19 16:33) Upset Stomach trimethoprim [From Bactrim] Adverse Reaction (Verified 02/19/19 16:33) Upset Stomach Home Medications: Ambulatory Orders Medication Instructions Recorded Atorvastatin Calcium [Lipitor] 20 mg PO QHS 10/11/17 Lisinopril [Zestril] 10 mg PO DAILY 10/11/17 Pyridoxine HCl [Vitamin B-6] 100 mg PO DAILY 10/11/17 Sevelamer HCl [Renagel] 800 mg PO TID 10/11/17 Vits A,C,E/Lutein/Minerals 1 ea PO DAILY 10/11/17 [Ocuvite with Lutein Tablet] Folic Acid/Vitamin B Comp W-C 1 cap PO DAILY 10/27/17 [Nephrocaps, Renaphro] albuterol sulfate HFA 90 2 puff INHALATION Q4H PRN #18 g 02/26/18 mcg/actuation aerosol inhaler Aspirin E.C. [Ecotrin] 81 mg PO DAILY 03/23/18 Cyclobenzaprine HCl 10 mg PO TID PRN PRN 03/23/18 Fluticasone 0.05% [Flonase Nasal 1 spray NASAL DAILY 03/23/18 [place]] Gabapentin [Neurontin] 300 mg PO BID 03/23/18 Calcitriol [Rocaltrol] 0.5 mcg PO DAILY 04/17/18 isosorbide mononitrate ER 30 mg 30 mg PO DAILY #30 tab 07/24/18 tablet,extended release 24 hr Acetaminophen [Tylenol Tablet] 650 mg PO Q6H PRN PRN tablet 09/19/18 Guaifenesin Dm [Robitussin Dm] 10 ml PO Q6H PRN PRN #1 bottle 11/21/18 Ciprofloxacin HCl 500 mg PO BID 03/12/19 Furosemide [Lasix] 40 mg PO BID 03/12/19 Insulin Glargine [Lantus SoloStar 20 units SUBCUT DAILY 03/12/19 Pen] Insulin U-500 [Humulin R U-500 85 units SQ BID 03/12/19 ([facility])] Metoprolol Tartrate [Lopressor 50 mg PO BID 03/12/19 (beta khoa)] Omeprazole 40 mg PO DAILY 03/12/19 Sucroferric Oxyhydroxide [Velphoro] 1,000 mg PO TID 03/12/19 Surgical History: Surgical History (Last Reviewed 07/16/18 @ 12:34 by Claudette Cheek) S/P tonsillectomy Z90.89 dialysis fistula Rt Arm Surgical History: tonsillectomy, - - AV fistula in right arm. Psychiatric History: No pertinent psych hx Lives: Spouse/ Significant Other Smoking Status: Never smoker Tobacco Use: Non-smoker Alcohol: None Drugs: None - *Family History Maternal Family History: Family History (Last Reviewed 01/15/19 @ 01:57 by Eze Rivera MD) Mother Hypertension Heart disease Diabetes Father Hypertension Heart disease Brother Heart disease History Items: Diabetes, Heart Disease, Hypertension, Renal Disease Paternal Family History: Family History (Last Reviewed 01/15/19 @ 01:57 by Eze Rivera MD) Mother Hypertension Heart disease Diabetes Father Hypertension Heart disease Brother Heart disease History Items: Cancer - liver, Diabetes, Heart Disease Review of Systems Constitutional: Reports: Fatigue. Denies: Chills, Fever HEENT: Reports: Visual Changes Cardiovascular: Reports: Claudication, Edema, Orthopnea. Denies: Chest Pain Respiratory: Denies: Shortness of Breath Gastrointestinal: Reports: Vomiting. Denies: Nausea Musculoskeletal: Reports: Foot Pain, Leg Pain Skin: Reports: Skin Changes, Wounds. Denies: Pruritis Neurological: Reports: Balance problems, Incoordination, Numbness, Tingling Endocrine: Reports: Change in Body Habitus Hematologic/ Lymphatic: Reports: Anemia Patient Problems: Active and Suspected Problems (Last Updated 03/12/19 @ 17:43 by Kayla Tamayo MD) Osteomyelitis (Acute) differential diagnosis Peripheral vascular disease (Suspected) Malnutrition (Suspected) - Physical Exam General: Alert, Oriented x3, Cooperative HEENT: Atraumatic Extremities: No cyanosis, Capillary Refill Less than 3 Seconds - All digits bilateral. There is lack of hair to bilateral lower extremities and skin turgor is very atrophic and shiny, No Calf Tenderness - Negative Radha and Adan sign left. Positive pain with calf and lower leg compression to the right lower extremity at the site of his mechanical fall. The compartments remain soft to palpate to bilateral foot ankle and leg distal to the knee., Diminished Peripheral Pulses - He does have palpable DP and PT pulses to bilateral in a week manner., Edema - Bilateral lower extremities Skin: Ulcer/ Wound - There is a 3.8 cm x 3.0 cm x 0.1 (post debridement) cm full-thickness ulcer with subcutaneous tissue exposed and central eschar measuring approximately 3.1 x 2.7 x 0.1 cm (also the predebridement measurement). There is no deep communication or exposed bone or joint. There is no chayo purulence on expression, odor, bogginess or fluctuance on palpation, erythema, streaking. There is no interdigital maceration. The ulcer on the right foot is located to the sub-fourth and fifth metatarsal heads and does not extend into the sulcus or digital level. The left foot ulcer is located at the sub-first metatarsal head and this measures 1.3 cm x 1.1 cm x 0.1 cm with a granular fibrous base with no deep probing or local signs of infection either. This is a post debridement measurement. The pre-debridement measurement was 1.0 x 0.8 x 0.1 cm., - - Skin is atrophic and hairless. No other skin discontinuities are noted. No ecchymosis or skin tenting bilateral lower extremities Musculoskeletal: No Tenderness to Palpation of Joints or Extremities, Muscle Wasting, - - Dorsal contraction lesser digits with prominent metatarsal heads bilateral decreased load of first metatarsophalangeal joint ranges of motion bilateral. No pain on palpation to bones, joints, tendons bilateral ankle and foot. Diffuse pain on palpation mechanical fall site of the right mid leg anterior and posterior. I did not assess his knee pain that he reports Neurological: - - Lack of normal epicritic sensation light touch is consistent with neuropathy bilateral lower extremities Psych/Mental Status: Normal Affect, Appropriate, - - Very jovial and talkative with friends in the room Vital Signs Temp Pulse Resp BP Pulse Ox 98.3 F 75 20 H 176/84 H 98 03/12/19 17:46 03/12/19 19:18 03/12/19 19:18 03/12/19 19:18 03/12/19 19:18 Oxygen Flow Rate (L/min) 3 Oxygen Delivery Method Room Air Weight: 118.3 kg Body Mass Index (BMI) 40.8 Finger Stick Blood Glucose 191 Intake and Output for Last 24 Hours 03/10/19 03/11/19 03/12/19 23:59 23:59 23:59 Intake Total 50 / 50 Balance 50 / 50 Laboratory Tests Past 24 Hrs 03/12/19 03/12/19 03/12/19 16:20 16:20 16:20 WBC 7.7 RBC 3.82 L Hgb 11.4 L Hct 34.8 L MCV 91.1 MCH 29.8 MCHC 32.8 RDW Std Deviation 43.9 RDW Coeff of Roberto 13.2 Plt Count 200 MPV 9.9 Immature Gran % (Auto) 0.600 Neut % (Auto) 79.5 H Lymph % (Auto) 9.2 L Bollinger % (Auto) 7.5 Eos % (Auto) 2.7 Baso % (Auto) 0.5 Absolute Neuts (auto) 6.1 Absolute Lymphs (auto) 0.71 L Nucleated RBC % 0 ESR 99 H PT 14.8 INR 1.2 APTT 32.8 Sodium 135 L Potassium 3.2 L Chloride 97 L Carbon Dioxide 32.0 Anion Gap 6 BUN 13 Creatinine 4.34 H Estim Creat Clear Calc 19.04 Est GFR (MDRD) Af Amer 19 L Est GFR (MDRD) Non-Af 15 L BUN/Creatinine Ratio 3.0 L Glucose 219 H Hemoglobin A1c Calcium 7.7 L C-React Prot Ext Range 85.40 H S.aureus Protein A PCR MRSA (PCR) 03/12/19 03/12/19 18:34 19:15 WBC RBC Hgb Hct MCV MCH MCHC RDW Std Deviation RDW Coeff of Roberto Plt Count MPV Immature Gran % (Auto) Neut % (Auto) Lymph % (Auto) Bollinger % (Auto) Eos % (Auto) Baso % (Auto) Absolute Neuts (auto) Absolute Lymphs (auto) Nucleated RBC % ESR PT INR APTT Sodium Potassium Chloride Carbon Dioxide Anion Gap BUN Creatinine Estim Creat Clear Calc Est GFR (MDRD) Af Amer Est GFR (MDRD) Non-Af BUN/Creatinine Ratio Glucose Hemoglobin A1c Pending Calcium C-React Prot Ext Range S.aureus Protein A PCR Pending MRSA (PCR) Pending POC Glucose 03/12/19 18:53 POC Glucose 167 H Assessment/Plan All Active Problems (Last Updated 03/12/19 @ 17:43 by Kayla Tamayo MD) Osteomyelitis (Acute) Diabetes with neuropathy (updated hemoglobin A1c result is pending) Right foot ulcer sub-fourth and fifth metatarsal heads-I do not suspect osteomyelitis at this time Devitalized right foot ulcer with infection work-up in process Right fourth and fifth proximal phalanx nondisplaced nonarticular fractures Left Waller grade 1 diabetic foot ulcer sub-first metatarsal head, no infection Foot deformities including hammertoes and hallux limitus bilateral Peripheral vascular disease Other comorbidities including noncompliance, renal disease on dialysis, cardiac history Malnutrition suspected Mechanical fall with right leg injury Gait instability I reviewed and discussed his case. As noted he is afebrile with vital signs stable. He does not have leukocytosis; his white blood cell count 7.7. He does have elevated ESR and C-reactive protein as 99 and 85.4 respectively. He did have wound culture obtained from the right foot however it is noted these are very superficial and I recommend interpretation with caution; aerobic, anaerobic, MRSA PCR were obtained. He has been started on antibiotics. Blood cultures are pending. His x-rays were reviewed with no soft tissue emphysema or foreign body. He does have notable small vessel calcification consistent with vascular disease status. He does also have cortical interruption of the fourth and fifth proximal phalanx at the metaphyseal diaphyseal junction in a transverse nondisplaced nonarticular manner. There is no periosteal reaction or osseous destruction and therefore I do not correlate this with the diagnosis of osteomyelitis. The fracture location also does not line up directly with the ulcer site. I recommend noninvasive vascular studies and this has already been ordered; this will likely be completed tomorrow. I recommend proceeding with wound care. The ulcers were debrided and a subcutaneous excisional manner with a 15 blade and a pickup as noted. Pressure was applied to maintain hemostasis to minimal bleeding that was noted. Verbal consent was obtained prior to performing this and he tolerated this well. I recommend further vascular work-up prior to any additional debridement. Aquacel Ag and gauze dressings were applied bilateral. I do recommend changing the dressings daily with Santyl and this order was placed. I recommend offloading the ulcers with bilateral surgical shoes; order was placed. I do not recommend surgical intervention at this time. I also recommend nutritional supplementation, [place], and optimize healing. I do also recommend treatment of this fracture site by heel weightbearing to the right lower extremity and wearing the protective surgical shoe. It is not clear if this is an acute on chronic or chronic injury. Medical management DVT prophylaxis per primary team is greatly appreciated. PT and OT are on consult for gait training and to prevent additional mechanical falls. I will continue to follow his care while in house. Thank you for the consultation. Please not hesitate to call for any questions. Brea Bravo DPM, [facility] [phone]
[2019-03-12] MEDS: oxyCODONE 5 MG Tablet PO (20:57)
[2019-03-12] MEDS: Metoprolol Tartrate 50 MG Tablet PO (21:55)
[2019-03-12] MEDS: Atorvastatin Calcium 20 MG Tablet PO (21:55)
[2019-03-12] MEDS: Insulin Lispro 100 UNIT/ML INSULN.PEN SC (22:00)
[2019-03-12] MEDS: Heparin Injection (Vial) 5,000 UNIT/ML VIAL 5000 UNIT SC (22:00)
[2019-03-12] MEDS: 0.9% NaCl IVPB Med Flush (250 mL) 15 ML IV (22:01)
[2019-03-12 22:11] LABS: M R Staph aureus DNA By PCR Negative (Negative); Probe Check PASS; Staph aureus DNA By PCR NEGATIVE (Negative)
[2019-03-12 22:25] LABS: Bedside Glucose 172 mg/dL (70-110)
[2019-03-13] VITALS (13 sets, daily range): BP systolic 135–155; BP diastolic 68–74; PULSE 64–77; RESP 16–20; TEMP 36.7–37.1; O2SAT 95–100
[2019-03-13] MEDS: oxyCODONE 5 MG Tablet PO ×3 (03:12→22:32)
[2019-03-13 05:36] LABS: Absolute Lymphocyte Count 0.71 X10^3/uL (0.83-4.51); Absolute Neutrophil Count 6.2 X10^3/uL (2.0-7.7); Basophil# 0.07 X10^3/uL; Basophil% 0.9 % (0-1); Eosinophil# 0.28 X10^3/uL; Eosinophils% 3.5 % (0-5); Hematocrit 32.8 % (40-54); Hemoglobin 10.3 g/dL (13.0-16.5); Lymphocyte # 0.71 X10^3/ul (4.0); Lymphocyte % 8.8 % (19-41); Mean Corp Hgb Conc 31.4 g/dL (32-36); Mean Corpuscular Hgb 29.5 pg (27.0-32.0); Mean Platelet Vol. 9.9 fl (6.2-12.0); Monocyte# 0.72 X10^3/uL; Monocyte% 8.9 % (0-10); NRBC Flagged by Analyzer 0 % (0-5); Neutrophil # 6.23 X10^3/uL (2.7-7.7); Platelet Count 217 K/mm3 (150-450); RBC Distribution Width CV 13.5 % (11.6-14.6); RBC Distribution Width SD 46.1 fl (35.1-43.9); Red Blood Count 3.49 M/mm3 (4.6-6.2); White Blood Count 8.1 K/mm3 (4.4-11.0)
[2019-03-13 06:03] LABS: Anion Gap 9 (5-15); BUN 18 mg/dL (7-18); BUN/Creat Ratio 3.5 RATIO (10-20); Calcium,Total 7.4 mg/dL (8.5-10.1); Chloride 101 mmol/L (98-107); Creatinine, Serum 5.18 mg/dL (0.70-1.30); EST Glomerular Filtration Rate 13 mL/min (>60); Est Glom Filt Rate - Afr Amer 15 mL/min (>60); Estimated Creatinine Clearance 15.95 ml/min; Glucose 166 mg/dL (74-106); Potassium 3.8 mmol/L (3.5-5.1); Sodium Level 139 mmol/L (136-145)
[2019-03-13] MEDS: Heparin Injection (Vial) 5,000 UNIT/ML VIAL 5000 UNIT SC ×3 (06:32→22:30)
[2019-03-13] MEDS: Collagenase 30gm Tube 1 APPLIC TOPICAL (07:42)
[2019-03-13] MEDS: 0.9% NaCl Peripheral Flush Adult/Peds IV (07:46)
[2019-03-13] MEDS: Ondansetron 4 MG/2 ML Vial IV (07:46)
--- NOTE | 2019-03-13 08:18 | CON.PCM_ITS ---
Consultation - Renal 03/13/19 PCP/ Referring MD: Requesting physician: Dr Tamayo Primary care physician: Augie Washburn MD Reason for Consultation:: ESRD dialysis mgmt - History of Present Illness History of Present Illness: The patient is a 48 year old morbidly obese M with ESRD due to noncompliance with diabetes, hypertension admitted for foot ulcers, knee pain from recent fall. He has noncompliance with his fluid gains, his binders with persistently elevated phosphorus. His last dialysis was yesterday received full treatment. Denies fever, chills. He has neuropathy with decreased sensation. He cannot see the bottoms of his feet. He thinks the lesion may have been for 2 weeks. He had a fever with 1 of 2 positive blood cx for gram positive bacilli on 02/26 drawn at dialysis center. He was treated with cipro as outpt for 2 wks. Repeat blood cx negative on 03/05. He denies injury. Foot ulcers were discovered during routine foot checks at dialysis unit yesterday. He was told his noticed a small ulcer with bloody drainage. His handles his medications at home. Currently receiving iv vanco and pip/tazo iv. Podiatry consulted. - Allergies Allergies: Allergies venom-honey bee [bee venom (honey bee)] Allergy (Verified 02/19/19 16:33) Swelling sulfamethoxazole [From Bactrim] Adverse Reaction (Verified 02/19/19 16:33) Upset Stomach trimethoprim [From Bactrim] Adverse Reaction (Verified 02/19/19 16:33) Upset Stomach - Current Medications Current Medications: Current Medications Acetaminophen (Tylenol) 650 mg PO Q6H PRN PRN PRN Reason: Mild pain 1-3/Temp > 100.7 F Albuterol Sulfate (Ventolin Aerosols) 2.5 mg INHALATION Q4H PRN PRN PRN Reason: Shortness of breath, wheezing Aspirin (Ecotrin) 81 mg PO DAILY@0800 RENE Atorvastatin Calcium (Lipitor) 20 mg PO QHS RENE Last Admin: 03/12/19 21:55 Dose: 20 mg Documented by: Calcitriol (Rocaltrol) 0.5 mcg PO DAILY RENE Collagenase (Santyl) 1 applic TOPICAL DAILY RENE; Protocol Last Admin: 03/13/19 07:42 Dose: 1 applicatio Documented by: Cyclobenzaprine HCl (Flexeril) 10 mg PO TID PRN PRN PRN Reason: SPASMS Dextrose (D50w Syringe) 0 gm IV X1 PRN; Protocol PRN Reason: Hypoglycemia Fluticasone Propionate (Flonase Nasal [place]) 1 spray NASAL DAILY [facility] Gabapentin (Neurontin) 300 mg PO BIDCM [facility] Glucagon () 1 mg IM .X1 PRN PRN Reason: Hypoglycemia Heparin Sodium (Porcine) (Heparin Na) 5,000 unit SC Q8 [facility] Last Admin: 03/13/19 06:32 Dose: 5,000 unit Documented by: Hydralazine HCl (Apresoline Iv) 10 mg IV Q8H PRN PRN PRN Reason: for SBP>160 Last Admin: 03/12/19 19:06 Dose: 10 mg Documented by: Piperacillin Sod/Tazobactam (Sod 3.375 gm/ Sodium Chloride) 50 mls @ 12.5 mls/hr IV Q12 [facility] Last Infusion: 03/13/19 02:03 Dose: Infused Documented by: Vancomycin IV Pharmacy to Dose (1 ea/ Sodium Chloride) 500 mls @ 250 mls/hr IV X1 PRN; Protocol PRN Reason: Rx to Dose Insulin Glargine (Lantus (Bk)) 20 units SC DAILY [facility] Insulin Human Lispro (Humalog Kwikpen ([facility])) 0 unit SC ACHS [facility]; Protocol Last Admin: 03/12/19 22:00 Dose: 1 u Documented by: Insulin Human Regular (Humulin R U-500 ([facility])) 85 units SC BIDAC [facility] Isosorbide Mononitrate (Imdur) 30 mg PO DAILY [facility] Lisinopril (Zestril) 10 mg PO SuMoWeFr [facility] Metoprolol Tartrate (Lopressor (Beta Emmanuel)) 50 mg PO BID [facility] Last Admin: 03/12/19 21:55 Dose: 50 mg Documented by: Non-Formulary Medication (Sucroferric Oxyhydroxide) 1,000 mg PO TID [facility] Nutritional Formula ([place] - Beulah Flavor) 1 packet PO BIDCM [facility] Ondansetron HCl (Zofran) 4 mg IV Q8H PRN PRN PRN Reason: NAUSEA/VOMITING Last Admin: 03/13/19 07:46 Dose: 4 mg Documented by: Oxycodone HCl (Oxyir) 5 mg PO Q6H PRN PRN PRN Reason: Moderate Pain (4-6/10) Last Admin: 03/13/19 03:12 Dose: 5 mg Documented by: Pantoprazole Sodium (Protonix) 40 mg PO DAILY [facility] Sevelamer Carbonate (Renvela) 800 mg PO TIDCM RENE Sodium Chloride () 10 - 40 ml IV UD PRN PRN Reason: SALINE FLUSH Last Admin: 03/13/19 07:46 Dose: 10 ml Documented by: - Past Medical History Past Medical History (Chronic Problems): Chronic Problems (Last Updated 03/12/19 @ 17:43 by Kayla Tamayo MD) Toe fracture, right (Chronic) Non-pressure chronic ulcer of other part of right foot with fat layer exposed (Chronic) Non-pressure chronic ulcer of other part of left foot with fat layer exposed (Chronic) Type 1 diabetes mellitus (Chronic) Morbid obesity with BMI of 40.0-44.9, adult (Chronic) Noncompliance (Chronic) CHF (congestive heart failure) (Chronic) Abnormal stress test (Chronic) TIA (transient ischemic attack) (Chronic) Pulmonary hypertension (Chronic) Morbid obesity with BMI of 40.0-44.9, adult (Chronic) End stage renal disease on dialysis (Chronic) Chronic respiratory failure with hypoxia (Chronic) HTN (hypertension) (Chronic) Hyperlipidemia (Chronic) Diabetic neuropathy (Chronic) Anemia (Chronic) SELMA (obstructive sleep apnea) (Chronic) - Past Surgical History Surgical History: tonsillectomy, - - AV fistula in right arm. - Social History Smoking Status: Never smoker Alcohol: None Drugs: None - Family History Maternal Family History: Family History (Last Reviewed 01/15/19 @ 01:57 by Eze Rivera MD) Mother Hypertension Heart disease Diabetes Father Hypertension Heart disease Brother Heart disease History Items: Diabetes, Heart Disease, Hypertension, Renal Disease Paternal Family History: Family History (Last Reviewed 01/15/19 @ 01:57 by Eze Rivera MD) Mother Hypertension Heart disease Diabetes Father Hypertension Heart disease Brother Heart disease History Items: Cancer - liver, Diabetes, Heart Disease Review of Systems Constitutional: Reports: Anorexia. Denies: Chills, Fever Cardiovascular: Reports: Edema. Denies: Chest Pain Respiratory: Denies: Cough, Shortness of Breath Gastrointestinal: Reports: Nausea. Denies: Abdominal Pain Genitourinary: Denies: Dysuria Musculoskeletal: Reports: - - foot ulcer, knee pain from fall Skin: Reports: Wounds - bilateral feet Patient Problems: Active and Suspected Problems (Last Updated 03/12/19 @ 17:43 by Kayla Tamayo MD) Osteomyelitis (Acute) differential diagnosis Peripheral vascular disease (Suspected) Malnutrition (Suspected) - Physical Exam General: Alert, Oriented x3, Cooperative, No apparent distress Lungs: Clear to auscultation Cardiovascular: Regular rate Abdomen: Soft, Non Tender, Obese Extremities: Edema - mild Skin: Ulcer/ Wound - bilat feet rt lateral, left first MT Musculoskeletal: No Muscle Wasting Psych/Mental Status: Alert and oriented to time, place, person, mood and affect Vital Signs Temp Pulse Resp BP Pulse Ox 98.0 F 77 18 150/70 H 99 03/13/19 03:09 03/13/19 03:49 03/13/19 03:09 03/13/19 03:09 03/13/19 03:09 Oxygen Flow Rate (L/min) 2 Oxygen Delivery Method Nasal Cannula Weight: 118.3 kg Body Mass Index (BMI) 40.8 Finger Stick Blood Glucose 191 Intake and Output for Last 24 Hours 03/11/19 03/12/19 03/13/19 23:59 23:59 23:59 Intake Total 643.92 / 843.92 1493.33 / 1493.33 Output Total 40 / 40 Balance 643.92 / 823.92 1453.33 / 1453.33 Laboratory Tests Past 24 Hrs 03/12/19 03/12/19 03/12/19 16:20 16:20 16:20 WBC 7.7 RBC 3.82 L Hgb 11.4 L Hct 34.8 L MCV 91.1 MCH 29.8 MCHC 32.8 RDW Std Deviation 43.9 RDW Coeff of Roberto 13.2 Plt Count 200 MPV 9.9 Immature Gran % (Auto) 0.600 Neut % (Auto) 79.5 H Lymph % (Auto) 9.2 L [place] % (Auto) 7.5 Eos % (Auto) 2.7 Baso % (Auto) 0.5 Absolute Neuts (auto) 6.1 Absolute Lymphs (auto) 0.71 L Nucleated RBC % 0 ESR 99 H PT 14.8 INR 1.2 APTT 32.8 Sodium 135 L Potassium 3.2 L Chloride 97 L Carbon Dioxide 32.0 Anion Gap 6 BUN 13 Creatinine 4.34 H Estim Creat Clear Calc 19.04 Est GFR (MDRD) Af Amer 19 L Est GFR (MDRD) Non-Af 15 L BUN/Creatinine Ratio 3.0 L Glucose 219 H Hemoglobin A1c Calcium 7.7 L C-React Prot Ext Range 85.40 H S.aureus Protein A PCR MRSA (PCR) 03/12/19 03/12/19 03/13/19 18:34 19:15 05:22 WBC 8.1 RBC 3.49 L Hgb 10.3 L Hct 32.8 L MCV 94.0 MCH 29.5 MCHC 31.4 L RDW Std Deviation 46.1 H RDW Coeff of Roberto 13.5 Plt Count 217 MPV 9.9 Immature Gran % (Auto) 0.900 Neut % (Auto) 77.0 H Lymph % (Auto) 8.8 L [place] % (Auto) 8.9 Eos % (Auto) 3.5 Baso % (Auto) 0.9 Absolute Neuts (auto) 6.2 Absolute Lymphs (auto) 0.71 L Nucleated RBC % 0 ESR PT INR APTT Sodium Potassium Chloride Carbon Dioxide Anion Gap BUN Creatinine Estim Creat Clear Calc Est GFR (MDRD) Af Amer Est GFR (MDRD) Non-Af BUN/Creatinine Ratio Glucose Hemoglobin A1c 12.0 H Calcium C-React Prot Ext Range S.aureus Protein A PCR NEGATIVE MRSA (PCR) Negative 03/13/19 05:22 WBC RBC Hgb Hct MCV MCH MCHC RDW Std Deviation RDW Coeff of Roberto Plt Count MPV Immature Gran % (Auto) Neut % (Auto) Lymph % (Auto) [place] % (Auto) Eos % (Auto) Baso % (Auto) Absolute Neuts (auto) Absolute Lymphs (auto) Nucleated RBC % ESR PT INR APTT Sodium 139 Potassium 3.8 Chloride 101 Carbon Dioxide 29.0 Anion Gap 9 BUN 18 Creatinine 5.18 H Estim Creat Clear Calc 15.95 Est GFR (MDRD) Af Amer 15 L Est GFR (MDRD) Non-Af 13 L BUN/Creatinine Ratio 3.5 L Glucose 166 H Hemoglobin A1c Calcium 7.4 L C-React Prot Ext Range S.aureus Protein A PCR MRSA (PCR) POC Glucose 03/12/19 03/12/19 21:52 18:53 POC Glucose 172 H 167 H Clinical Impression(s) from Imaging Studies Foot X-Ray 03/12/19 14:23 IMPRESSION: Soft tissue swelling. Vascular calcification. Findings suggestive of osteomyelitis at the base of the proximal phalanges of the fourth and fifth toes. Electronically Signed: Johnnie Manoj, at 15:04 EDT , Service support , Tibia/Fibula X-Ray 03/12/19 14:31 IMPRESSION: Soft tissue swelling. Atherosclerotic calcification. Electronically Signed: Johnnie Aranda, at 15:01 EDT , Service support , Foot X-Ray 03/12/19 14:39 IMPRESSION: Soft tissue swelling. Vascular calcification. Electronically Signed: Johnnie Manoj, at 15:01 EDT , Service support , Assessment/Plan All Active Problems (Last Updated 03/12/19 @ 17:43 by Kayla Tamayo MD) Osteomyelitis (Acute) 1. ESRD HD TTS. Next dialysis tomorrow. Follow chronic orders 2. DMT1 primary mgmt with neuropathy, nephropathy 3. Diabetic foot ulcers on iv antibx, cx pending. Podiatry following. Renal dose antibx. Monitor vanco level before redose. 4. HTN resume home meds 5. Hyperphosphatemia due to noncompliance with diet, binders, at risk for vascular calcification present on xray of feet. 6. Morbid obesity 7 SELMA CPAP 8. Anemia TERESA on dialysis
--- NOTE | 2019-03-13 08:32 | NURSING ---
wound photo: right foot
--- NOTE | 2019-03-13 08:33 | NURSING ---
wound photo: left foot
[2019-03-13] MEDS: Gabapentin 300 MG Capsule PO ×2 (08:55→17:24)
[2019-03-13] MEDS: Aspirin E.C. 81 MG Tablet PO (08:56)
[2019-03-13] MEDS: Insulin Lispro 100 UNIT/ML INSULN.PEN SC (08:56)
[2019-03-13] MEDS: SEVELAMER CARBONATE 800 MG TABLET PO ×3 (08:56→17:24)
[2019-03-13] MEDS: Pantoprazole Sodium 40 MG Tablet PO (08:57)
[2019-03-13] MEDS: Calcitriol 0.25 MCG Capsule 0.5 MCG PO (08:57)
[2019-03-13 09:01] LABS: Bedside Glucose 171 mg/dL (70-110)
[2019-03-13] MEDS: proMETHazine 25 MG Tablet PO (10:42)
[2019-03-13] MEDS: Metoprolol Tartrate 50 MG Tablet PO ×2 (11:43→22:32)
[2019-03-13] MEDS: Isosorbide Mononitrate 30 MG Tablet PO (11:43)
[2019-03-13] MEDS: Lisinopril 10 MG Tablet PO ×2 (11:43→14:59)
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
[2019-03-13] MEDS: Fluticasone 0.05% 1 SPRAY NASAL.SRY NASAL (11:52)
[2019-03-13 12:00] LABS: Bedside Glucose 82 mg/dL (70-110)
--- NOTE | 2019-03-13 12:21 | CASEMGMT ---
LW/POA scanned in to the summary tab of the echart, [place] Madden is listed as POA. TRENTON Nye
--- NOTE | 2019-03-13 12:29 | PCM.PROGNOTE ---
Patient Problems: Active and Suspected Problems (Last Updated 03/12/19 @ 17:43 by Kayla Tamayo MD) Osteomyelitis (Acute) differential diagnosis Peripheral vascular disease (Suspected) Malnutrition (Suspected) Subjective: This 48-year-old male with multiple comorbidities was seen bedside today for follow-up of bilateral foot ulcers. He denies fever, chill, vomiting. He does have some intermittent nausea and neuropathy type pain to the lower extremities. He has been wearing his offloading surgical shoes. He did not obtain his vascular studies yet. - Physical Exam General: Alert, Oriented x3, Cooperative Extremities: Edema Skin: Ulcer/ Wound - No purulence, erythema, string, odor, infection bilateral lower extremities. Skin is atrophic. No deep probing or exposed deep tissue noted to bilateral foot. Musculoskeletal: No Tenderness to Palpation of Joints or Extremities, Muscle Wasting - Dorsal contraction of lesser digits with prominent metatarsal heads bilateral Neurological: - - Lack of normal epicritic sensation light touch consistent with neuropathy bilateral Psych/Mental Status: Normal Affect, Appropriate Vital Signs Temp Pulse Resp BP Pulse Ox 98.7 F 75 18 155/69 H 95 03/13/19 09:00 03/13/19 11:43 03/13/19 09:00 03/13/19 09:00 03/13/19 11:23 Oxygen Flow Rate (L/min) 2 Oxygen Delivery Method Nasal Cannula Weight: 118.3 kg Body Mass Index (BMI) 40.8 Finger Stick Blood Glucose 191 Intake and Output for Last 24 Hours 03/11/19 03/12/19 03/13/19 23:59 23:59 23:59 Intake Total 643.92 / 843.92 1493.33 / 1493.33 Output Total 40 / 40 Balance 643.92 / 823.92 1453.33 / 1453.33 Microbiology Past 72 Hours 03/12/19 19:15 Gram Stain - Final Wound - Aerobic & Anaerobic Swabs Laboratory Tests Past 24 Hrs 03/12/19 03/12/19 03/12/19 16:20 16:20 16:20 WBC 7.7 RBC 3.82 L Hgb 11.4 L Hct 34.8 L MCV 91.1 MCH 29.8 MCHC 32.8 RDW Std Deviation 43.9 RDW Coeff of Roberto 13.2 Plt Count 200 MPV 9.9 Immature Gran % (Auto) 0.600 Neut % (Auto) 79.5 H Lymph % (Auto) 9.2 L [place] % (Auto) 7.5 Eos % (Auto) 2.7 Baso % (Auto) 0.5 Absolute Neuts (auto) 6.1 Absolute Lymphs (auto) 0.71 L Nucleated RBC % 0 ESR 99 H PT 14.8 INR 1.2 APTT 32.8 Sodium 135 L Potassium 3.2 L Chloride 97 L Carbon Dioxide 32.0 Anion Gap 6 BUN 13 Creatinine 4.34 H Estim Creat Clear Calc 19.04 Est GFR (MDRD) Af Amer 19 L Est GFR (MDRD) Non-Af 15 L BUN/Creatinine Ratio 3.0 L Glucose 219 H Hemoglobin A1c Calcium 7.7 L C-React Prot Ext Range 85.40 H S.aureus Protein A PCR MRSA (PCR) 03/12/19 03/12/19 03/13/19 18:34 19:15 05:22 WBC 8.1 RBC 3.49 L Hgb 10.3 L Hct 32.8 L MCV 94.0 MCH 29.5 MCHC 31.4 L RDW Std Deviation 46.1 H RDW Coeff of Roberto 13.5 Plt Count 217 MPV 9.9 Immature Gran % (Auto) 0.900 Neut % (Auto) 77.0 H Lymph % (Auto) 8.8 L [place] % (Auto) 8.9 Eos % (Auto) 3.5 Baso % (Auto) 0.9 Absolute Neuts (auto) 6.2 Absolute Lymphs (auto) 0.71 L Nucleated RBC % 0 ESR PT INR APTT Sodium Potassium Chloride Carbon Dioxide Anion Gap BUN Creatinine Estim Creat Clear Calc Est GFR (MDRD) Af Amer Est GFR (MDRD) Non-Af BUN/Creatinine Ratio Glucose Hemoglobin A1c 12.0 H Calcium C-React Prot Ext Range S.aureus Protein A PCR NEGATIVE MRSA (PCR) Negative 03/13/19 05:22 WBC RBC Hgb Hct MCV MCH MCHC RDW Std Deviation RDW Coeff of Roberto Plt Count MPV Immature Gran % (Auto) Neut % (Auto) Lymph % (Auto) [place] % (Auto) Eos % (Auto) Baso % (Auto) Absolute Neuts (auto) Absolute Lymphs (auto) Nucleated RBC % ESR PT INR APTT Sodium 139 Potassium 3.8 Chloride 101 Carbon Dioxide 29.0 Anion Gap 9 BUN 18 Creatinine 5.18 H Estim Creat Clear Calc 15.95 Est GFR (MDRD) Af Amer 15 L Est GFR (MDRD) Non-Af 13 L BUN/Creatinine Ratio 3.5 L Glucose 166 H Hemoglobin A1c Calcium 7.4 L C-React Prot Ext Range S.aureus Protein A PCR MRSA (PCR) POC Glucose 03/13/19 03/13/19 03/12/19 11:40 08:45 21:52 POC Glucose 82 171 H 172 H 03/12/19 18:53 POC Glucose 167 H Medical Necessity - Tobacco Use Smoking Status: Never smoker Tobacco Use: Non-smoker Assessment/Plan All Active Problems (Last Updated 03/12/19 @ 17:43 by Kayla Tamayo MD) Osteomyelitis (Acute) Diabetes with neuropathy (hemoglobin A1c 12%) Right foot ulcer sub-fourth and fifth metatarsal heads-I do not suspect osteomyelitis at this time, no local signs of infection noted today Right fourth and fifth proximal phalanx nondisplaced nonarticular fractures Left Waller grade 1 diabetic foot ulcer sub-first metatarsal head, no infection Foot deformities including hammertoes and hallux limitus bilateral Peripheral vascular disease Other comorbidities including noncompliance, renal disease on dialysis, cardiac history Malnutrition suspected Mechanical fall with right leg injury Gait instability I reviewed and discussed his case. He remains afebrile with vital signs stable. He does not have leukocytosis. Blood and wound cultures are pending. His x-rays were reviewed with no soft tissue emphysema or foreign body. He does have notable small vessel calcification consistent with vascular disease status. He does also have cortical interruption of the fourth and fifth proximal phalanx at the metaphyseal diaphyseal junction in a transverse nondisplaced nonarticular manner. There is no periosteal reaction or osseous destruction and therefore I do not correlate this with the diagnosis of osteomyelitis. The fracture location also does not line up directly with the ulcer site. I recommend noninvasive vascular studies and this has already been ordered; this will likely be completed today around 14:30. The lab was called to confirm. I recommend proceeding with wound care. To change the dressings daily with Santyl. I recommend offloading the ulcers with bilateral surgical shoes; order was placed. I do not recommend surgical intervention at this time. To follow up at the wound healing center at time of discharge. I do also recommend treatment of this fracture site by heel weightbearing to the right lower extremity and wearing the protective surgical shoe. It is not clear if this is an acute on chronic or chronic injury. Medical management DVT prophylaxis per primary team is greatly appreciated. PT and OT are on consult for gait training and to prevent additional mechanical falls. I will continue to follow his care while in house. Brea Bravo DPM, [facility] [phone]
--- NOTE | 2019-03-13 13:20 | CASEMGMT ---
AMIRAH BAUER NOTE: Call placed to Rufino Laws CM and CM @ [facility], @ [phone]. No answer. Message left to inform her pt has been admitted to [facility] and contact numbers provided for her to return call to MS3 WILFREDO, Ade Kitchen, fish house worker CM, Ade Salgado. Macie NORWOODN AMIRAH BAUER
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
[2019-03-13] MEDS: hydrALAZINE 25 MG Tablet PO ×2 (14:59→22:31)
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
[2019-03-13 17:06] LABS: Bedside Glucose 90 mg/dL (70-110)
[2019-03-13] MEDS: Atorvastatin Calcium 20 MG Tablet PO (22:31)
[2019-03-14] VITALS (19 sets, daily range): BP systolic 131–190; BP diastolic 65–98; PULSE 64–77; RESP 16–18; TEMP 36–36.9; O2SAT 95–100
[2019-03-14 00:16] LABS: Bedside Glucose 59 mg/dL (70-110)
[2019-03-14 00:16] LABS: Bedside Glucose 57 mg/dL (70-110)
[2019-03-14 00:51] LABS: Bedside Glucose 103 mg/dL (70-110)
[2019-03-14 03:41] LABS: Bedside Glucose 85 mg/dL (70-110)
[2019-03-14] MEDS: Heparin Injection (Vial) 5,000 UNIT/ML VIAL 5000 UNIT SC ×3 (05:45→21:58)
[2019-03-14 05:59] LABS: Absolute Neutrophil Count 5.7 X10^3/uL (2.0-7.7); Basophil# 0.09 X10^3/uL; Basophil% 1.1 % (0-1); Eosinophils% 4.8 % (0-5); Hematocrit 33.1 % (40-54); Hemoglobin 10.2 g/dL (13.0-16.5); Lymphocyte % 15.7 % (19-41); Mean Corp Hgb Conc 30.8 g/dL (32-36); Mean Corpuscular Hgb 29.2 pg (27.0-32.0); Mean Corpuscular Volume 94.8 fL (80-94); Monocyte# 0.72 X10^3/uL; Monocyte% 8.7 % (0-10); NRBC Flagged by Analyzer 0 % (0-5); Neutrophil # 5.72 X10^3/uL (2.7-7.7); Neutrophil % 68.9 % (47-70); Platelet Count 251 K/mm3 (150-450); RBC Distribution Width CV 13.9 % (11.6-14.6); Red Blood Count 3.49 M/mm3 (4.6-6.2); White Blood Count 8.3 K/mm3 (4.4-11.0)
[2019-03-14 06:26] LABS: Anion Gap 10 (5-15); BUN 38 mg/dL (7-18); BUN/Creat Ratio 5.6 RATIO (10-20); Calcium,Total 8.3 mg/dL (8.5-10.1); Chloride 98 mmol/L (98-107); Creatinine, Serum 6.73 mg/dL (0.70-1.30); EST Glomerular Filtration Rate 9 mL/min (>60); Est Glom Filt Rate - Afr Amer 11 mL/min (>60); Estimated Creatinine Clearance 12.28 ml/min; Glucose 45 mg/dL (74-106); Potassium 4.1 mmol/L (3.5-5.1); Sodium Level 137 mmol/L (136-145); Vancomycin, Random Level 18.2 ug/mL (0.0-15.0)
[2019-03-14 08:11] LABS: Bedside Glucose 54 mg/dL (70-110)
[2019-03-14 08:11] LABS: Bedside Glucose 48 mg/dL (70-110)
[2019-03-14] MEDS: Calcitriol 0.25 MCG Capsule 0.5 MCG PO (08:20)
[2019-03-14] MEDS: Pantoprazole Sodium 40 MG Tablet PO (08:20)
[2019-03-14] MEDS: SEVELAMER CARBONATE 800 MG TABLET PO (08:20)
[2019-03-14] MEDS: Fluticasone 0.05% 1 SPRAY NASAL.SRY NASAL (08:21)
[2019-03-14] MEDS: Gabapentin 300 MG Capsule PO ×2 (08:22→17:14)
[2019-03-14] MEDS: Aspirin E.C. 81 MG Tablet PO (08:22)
[2019-03-14] MEDS: Collagenase 30gm Tube 1 APPLIC TOPICAL (08:23)
[2019-03-14] MEDS: Isosorbide Mononitrate 30 MG Tablet PO (08:23)
[2019-03-14] MEDS: oxyCODONE 5 MG Tablet PO ×2 (08:31→15:29)
--- NOTE | 2019-03-14 08:38 | NURSING ---
Pt states he takes all of his morning meds except for BP meds on day of dialysis. Dalysis coming at 0900 today.
[2019-03-14 08:46] LABS: Bedside Glucose 62 mg/dL (70-110)
[2019-03-14 09:46] LABS: Bedside Glucose 111 mg/dL (70-110)
[2019-03-14 10:39] LABS: Phosphorus 6.7 mg/dL (2.5-4.9)
--- NOTE | 2019-03-14 11:06 | PCM.RX.CS ---
Consult Pharmacy has been consulted to manage selected antiobiotic: Vancomycin Type of Consult: Follow-up Suspected Infection: Osteomyelitis Prior Doses of Antibiotics Received/Current Regimen: Vancomycin 1750mg IV x1 Labs: Sodium 137 mmol/L (136-145) 03/14/19 05:38 Potassium 4.1 mmol/L (3.5-5.1) 03/14/19 05:38 Chloride 98 mmol/L (98-107) 03/14/19 05:38 Carbon Dioxide 29.0 mmol/L (21.0-32.0) 03/14/19 05:38 Anion Gap 10 (5-15) 03/14/19 05:38 BUN 38 mg/dL (7-18) H 03/14/19 05:38 Creatinine 6.73 mg/dL (0.70-1.30) H 03/14/19 05:38 Est GFR (MDRD) Af Amer 11 mL/min (>60) L 03/14/19 05:38 Est GFR (MDRD) Non-Af 9 mL/min (>60) L 03/14/19 05:38 BUN/Creatinine Ratio 5.6 RATIO (10-20) L 03/14/19 05:38 Glucose 45 mg/dL (74-106) L 03/14/19 05:38 Random Vancomycin 18.2 ug/mL (0.0-15.0) H 03/14/19 05:38 Microbiology: Microbiology 03/12/19 19:15 Wound - Aerobic & Anaerobic Swabs Gram Stain - Final Weight used for dosin kg Goal Trough: 15-20 mcg/mL Pharmacy Plan for Drug Dosing: Pt is on Dialysis . He will receive dialysis on 03/14/19. His pre dialysis vancomycin level was 18.2. Per Policy, pt will receive a 1gm dose of Vancomycin after dialysis, and a random level will be drawn at 0600 on Monday03/16/19. Pharmacy Service will continue to monitor and adjust dosing as required. Follow-Up Labs: Trough Vancomycin - random level on 03/16/19 at 0600
--- NOTE | 2019-03-14 12:07 | PN.RENAL_ITS ---
Patient Problems: Active and Suspected Problems (Last Updated 03/12/19 @ 17:43 by Kayla Tamayo MD) Osteomyelitis (Acute) differential diagnosis Peripheral vascular disease (Suspected) Malnutrition (Suspected) Subjective: seen on dialysis, tolerating 5L fluid removal so far. - Physical Exam General: Alert, Oriented x3, Cooperative Lungs: Clear to auscultation Cardiovascular: Regular rate Abdomen: Bowel Sounds Present, Soft, Non Tender, Obese Extremities: No edema Psych/Mental Status: Normal Affect, Appropriate, Alert and oriented to time, place, person, mood and affect Vital Signs Temp Pulse Resp BP Pulse Ox 96.8 F L 72 18 187/98 H 100 03/14/19 08:33 03/14/19 11:40 03/14/19 08:33 03/14/19 08:33 03/14/19 08:33 Oxygen Flow Rate (L/min) 2 Oxygen Delivery Method Nasal Cannula Weight: 118.3 kg Body Mass Index (BMI) 40.8 Finger Stick Blood Glucose 191 Intake and Output for Last 24 Hours 03/12/19 03/13/19 03/14/19 23:59 23:59 23:59 Intake Total 643.92 / 843.92 2363.33 / 3363.33 1050 / 1050 Output Total 90 / 190 100 / 100 Balance 643.92 / 823.92 2273.33 / 3173.33 950 / 950 Microbiology Past 72 Hours 03/12/19 19:15 Gram Stain - Final Wound - Aerobic & Anaerobic Swabs Laboratory Tests Past 24 Hrs 03/14/19 03/14/19 03/14/19 05:38 05:38 05:38 WBC 8.3 RBC 3.49 L Hgb 10.2 L Hct 33.1 L MCV 94.8 H MCH 29.2 MCHC 30.8 L RDW Std Deviation 48.0 H RDW Coeff of Roberto 13.9 Plt Count 251 MPV 10.0 Immature Gran % (Auto) 0.800 Neut % (Auto) 68.9 Lymph % (Auto) 15.7 L [place] % (Auto) 8.7 Eos % (Auto) 4.8 Baso % (Auto) 1.1 H Absolute Neuts (auto) 5.7 Absolute Lymphs (auto) 1.30 Nucleated RBC % 0 Sodium 137 Potassium 4.1 Chloride 98 Carbon Dioxide 29.0 Anion Gap 10 BUN 38 H Creatinine 6.73 H Estim Creat Clear Calc 12.28 Est GFR (MDRD) Af Amer 11 L Est GFR (MDRD) Non-Af 9 L BUN/Creatinine Ratio 5.6 L Glucose 45 L Calcium 8.3 L Phosphorus Random Vancomycin 18.2 H 03/14/19 05:38 WBC RBC Hgb Hct MCV MCH MCHC RDW Std Deviation RDW Coeff of Roberto Plt Count MPV Immature Gran % (Auto) Neut % (Auto) Lymph % (Auto) [place] % (Auto) Eos % (Auto) Baso % (Auto) Absolute Neuts (auto) Absolute Lymphs (auto) Nucleated RBC % Sodium Potassium Chloride Carbon Dioxide Anion Gap BUN Creatinine Estim Creat Clear Calc Est GFR (MDRD) Af Amer Est GFR (MDRD) Non-Af BUN/Creatinine Ratio Glucose Calcium Phosphorus 6.7 H Random Vancomycin POC Glucose 03/14/19 03/14/19 03/14/19 09:40 08:41 08:01 POC Glucose 111 H 62 L 54 L 03/14/19 03/14/19 03/14/19 07:19 03:33 00:37 POC Glucose 48 L 85 103 03/13/19 03/13/19 03/13/19 23:33 22:44 16:58 POC Glucose 59 L 57 L 90 Medical Necessity - Tobacco Use Smoking Status: Never smoker Tobacco Use: Non-smoker Assessment/Plan All Active Problems (Last Updated 03/12/19 @ 17:43 by Kayla Tamayo MD) Osteomyelitis (Acute) 1. ESRD HD TTS. Seen on dialysis. 2. DMT1 primary mgmt with neuropathy, nephropathy 3. Diabetic foot ulcers on iv antibx, cx pending. Podiatry following. Renal dose antibx. Monitor vanco level before redose. 4. HTN resume home meds 5. Hyperphosphatemia due to noncompliance with diet, binders, increase binders
[2019-03-14 13:00] LABS: Bedside Glucose 160 mg/dL (70-110)
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
[2019-03-14] MEDS: Heparin 10,000 UNITS/10 ML Vial 8000 UNITS IV (15:24)
[2019-03-14] MEDS: Vancomycin IV 1,000 MG/200 ML BAG 200 MG IV (15:29)
[2019-03-14] MEDS: hydrALAZINE 25 MG Tablet PO (15:31)
[2019-03-14] MEDS: 0.9% NaCl Peripheral Flush Adult/Peds IV (15:34)
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
[2019-03-14] MEDS: Insulin Lispro 100 UNIT/ML INSULN.PEN SC ×2 (17:13→21:58)
[2019-03-14] MEDS: SEVELAMER CARBONATE 800 MG TABLET 3200 MG PO (17:14)
[2019-03-14 17:25] LABS: Bedside Glucose 255 mg/dL (70-110)
[2019-03-14] MEDS: hydrALAZINE 25 MG Tablet 50 MG PO (17:39)
[2019-03-14] MEDS: Metoprolol Tartrate 50 MG Tablet PO (18:36)
--- NOTE | 2019-03-14 18:36 | NURSING ---
BP still high, gave lopressor now instead of 2200.
[2019-03-14] MEDS: Atorvastatin Calcium 20 MG Tablet PO (21:03)
[2019-03-14] MEDS: hydrALAZINE 25 MG Tablet 75 MG PO (21:03)
[2019-03-14 22:06] LABS: Bedside Glucose 173 mg/dL (70-110)
[2019-03-15] VITALS (12 sets, daily range): BP systolic 136–164; BP diastolic 59–91; PULSE 65–71; RESP 16–18; TEMP 36.5–36.8; O2SAT 97–100
[2019-03-15] MEDS: 0.9% NaCl Peripheral Flush Adult/Peds IV ×2 (02:42→10:57)
[2019-03-15] MEDS: oxyCODONE 5 MG Tablet PO ×2 (02:42→09:09)
[2019-03-15] MEDS: Heparin Injection (Vial) 5,000 UNIT/ML VIAL 5000 UNIT SC ×2 (06:27→14:47)
[2019-03-15] MEDS: hydrALAZINE 25 MG Tablet 75 MG PO ×2 (06:27→14:47)
[2019-03-15] MEDS: Collagenase 30gm Tube 1 APPLIC TOPICAL (08:12)
[2019-03-15] MEDS: Gabapentin 300 MG Capsule PO ×2 (09:04→17:54)
[2019-03-15] MEDS: Aspirin E.C. 81 MG Tablet PO (09:04)
[2019-03-15] MEDS: SEVELAMER CARBONATE 800 MG TABLET 3200 MG PO ×3 (09:04→17:54)
[2019-03-15] MEDS: Pantoprazole Sodium 40 MG Tablet PO (09:05)
[2019-03-15 09:11] LABS: Bedside Glucose 145 mg/dL (70-110)
[2019-03-15] MEDS: Isosorbide Mononitrate 30 MG Tablet PO (10:55)
[2019-03-15] MEDS: Metoprolol Tartrate 50 MG Tablet PO (10:56)
[2019-03-15] MEDS: Lisinopril 20 MG Tablet PO (10:56)
[2019-03-15] MEDS: Fluticasone 0.05% 1 SPRAY NASAL.SRY NASAL (10:56)
[2019-03-15 11:21] LABS: Bedside Glucose 171 mg/dL (70-110)
[2019-03-15] MEDS: Insulin Lispro 100 UNIT/ML INSULN.PEN SC (12:23)
[2019-03-15] MEDS: Insulin Lispro 100 UNIT/ML INSULN.PEN 15 UNIT SC ×2 (12:23→17:53)
--- NOTE | 2019-03-15 13:05 | CON.PCM_ITS ---
Problem List (1) Diabetic neuropathy Status: Chronic Qualifiers: Reason for Consult: foot ulcer Consulted by: Dr. Lee History of Present Illness: The patient is a 48 year old M with T1DM neuropathy, obesity, ESRD who presented after a fall where he hurt his toe. Has chronic foot ulcers, has been relatively stable, follows with podiatry. Came to ED 03/12, xray showed possible osteo, started on vanc/zosyn, feeling ok, no fever here. Seen by podiatry, neph, vascular. Full ROS performed and neg except as noted above. - Medical History Past Medical History (Chronic Problems): Chronic Problems (Last Updated 03/12/19 @ 17:43 by Kayla Tamayo MD) Toe fracture, right (Chronic) Non-pressure chronic ulcer of other part of right foot with fat layer exposed (Chronic) Non-pressure chronic ulcer of other part of left foot with fat layer exposed (Chronic) Type 1 diabetes mellitus (Chronic) Morbid obesity with BMI of 40.0-44.9, adult (Chronic) Noncompliance (Chronic) CHF (congestive heart failure) (Chronic) Abnormal stress test (Chronic) TIA (transient ischemic attack) (Chronic) Pulmonary hypertension (Chronic) Morbid obesity with BMI of 40.0-44.9, adult (Chronic) End stage renal disease on dialysis (Chronic) Chronic respiratory failure with hypoxia (Chronic) HTN (hypertension) (Chronic) Hyperlipidemia (Chronic) Diabetic neuropathy (Chronic) Anemia (Chronic) SELMA (obstructive sleep apnea) (Chronic) Allergies/Adverse Reactions: Allergies venom-honey bee [bee venom (honey bee)] Allergy (Verified 02/19/19 16:33) Swelling sulfamethoxazole [From Bactrim] Adverse Reaction (Verified 02/19/19 16:33) Upset Stomach trimethoprim [From Bactrim] Adverse Reaction (Verified 02/19/19 16:33) Upset Stomach Home Medications: Ambulatory Orders Medication Instructions Recorded Atorvastatin Calcium [Lipitor] 20 mg PO QHS 10/11/17 Lisinopril [Zestril] 10 mg PO DAILY 10/11/17 Pyridoxine HCl [Vitamin B-6] 100 mg PO DAILY 10/11/17 Sevelamer HCl [Renagel] 800 mg PO TID 10/11/17 Vits A,C,E/Lutein/Minerals 1 ea PO DAILY 10/11/17 [Ocuvite with Lutein Tablet] Folic Acid/Vitamin B Comp W-C 1 cap PO DAILY 10/27/17 [Nephrocaps, Renaphro] albuterol sulfate HFA 90 2 puff INHALATION Q4H PRN #18 g 02/26/18 mcg/actuation aerosol inhaler Aspirin E.C. [Ecotrin] 81 mg PO DAILY 03/23/18 Cyclobenzaprine HCl 10 mg PO TID PRN PRN 03/23/18 Fluticasone 0.05% [Flonase Nasal 1 spray NASAL DAILY 03/23/18 [place]] Gabapentin [Neurontin] 300 mg PO BID 03/23/18 Calcitriol [Rocaltrol] 0.5 mcg PO DAILY 04/17/18 isosorbide mononitrate ER 30 mg 30 mg PO DAILY #30 tab 07/24/18 tablet,extended release 24 hr Acetaminophen [Tylenol Tablet] 650 mg PO Q6H PRN PRN tablet 09/19/18 Guaifenesin Dm [Robitussin Dm] 10 ml PO Q6H PRN PRN #1 bottle 11/21/18 Ciprofloxacin HCl 500 mg PO BID 03/12/19 Furosemide [Lasix] 40 mg PO BID 03/12/19 Insulin U-500 [Humulin R U-500 85 units SQ BID 03/12/19 ([facility])] Metoprolol Tartrate [Lopressor 50 mg PO BID 03/12/19 (beta khoa)] Omeprazole 40 mg PO DAILY 03/12/19 Sucroferric Oxyhydroxide [Velphoro] 1,000 mg PO TID 03/12/19 proMETHazine tablet [Phenergan 25 mg PO TID PRN 03/13/19 tablet] - Social History Tobacco Use: non-smoker Vital Signs Temp Pulse Resp BP Pulse Ox 97.7 F L 68 18 158/91 H 100 03/15/19 10:56 03/15/19 10:56 03/15/19 10:56 03/15/19 10:56 03/15/19 10:56 Oxygen Flow Rate (L/min) 2 Oxygen Delivery Method Nasal Cannula Weight: 118.3 kg Body Mass Index (BMI) 40.8 Finger Stick Blood Glucose 191 Microbiology Past 72 Hours 03/12/19 21:32 Blood Culture - Preliminary Blood Culture (Wb) - Left Hand No growth in 48 hours. 03/12/19 18:34 Blood Culture - Preliminary Blood Culture (Wb) - Anticubital Left No growth in 48 hours. 03/12/19 19:15 Gram Stain - Final Wound - Aerobic & Anaerobic Swabs Wound Culture - Preliminary Mixed Gram Positive Organisms Anaerobic Culture - Preliminary Checking for anaerobes, further studies to follow. - Other Studies Radiology: [] Other Studies: [] reviewed Route of nutrition/ use of supplements: [] Nutritional Intake: [] IV Site: [] Uko Catheter: [] - Physical Exam General: Alert, Oriented x3, Cooperative, No apparent distress HEENT: Atraumatic, PERRLA, EOMI Neck: Supple, No Nodes Lungs: Clear to auscultation, Normal air movement Cardiovascular: Regular rate, Regular Rhythm, Murmur Abdomen: Soft, Non Tender, Obese Extremities: Edema Skin: Ulcer/ Wound - reviewed photos IV Site: Peripheral, without redness Musculoskeletal: No Tenderness to Palpation of Joints or Extremities Neurological: Cranial nerves II-XII grossly intact - Assessment/Plan Antibiotics: [] Assessment/Plan: [] Active and Suspected Problems (Last Updated 03/12/19 @ 17:43 by Kayla Tamayo MD) Osteomyelitis (Acute) differential diagnosis Peripheral vascular disease (Suspected) Malnutrition (Suspected) DM foot ulcer - low suspicion for active infection. No fever, normal wbc, no purulence on gram stain of foot swab. Minimal mixed gram pos pepper on cx. Ok for d/c home off of abx with podiatry followup. Will follow, thank you, d/w Dr. Lee.
--- NOTE | 2019-03-15 13:45 | CASEMGMT ---
AMIRAH BAUER updated that patient will be going home on no antibiotics. AMIRAH BAUER in to speak with patient and he would like [facility] for wound care and therapy. AMIRAH BAUER provided list and patient prefers [facility]. AMIRAH BAUER sent referral and they are able to accept the patient. AMIRAH BAUER updated the patient and he voiced understanding.
--- NOTE | 2019-03-15 14:30 | CASEMGMT ---
Social Work Note Pt is discharging home today with [facility]. SW placed a call to pt's CM Patricia Minor and left her a message that pt will be discharged home today with [facility]. Ade Kitchen CRYPTOLOGIC TECHNICIAN TECHNICAL, LIFE SCIENCES INSTRUCTOR
--- NOTE | 2019-03-15 15:10 | PN_ITS ---
Patient Problems: Active and Suspected Problems (Last Updated 03/12/19 @ 17:43 by Kayla Tamayo MD) Osteomyelitis (Acute) differential diagnosis Peripheral vascular disease (Suspected) Malnutrition (Suspected) Subjective: This 48-year-old male with multiple comorbidities was seen bedside today for follow-up of bilateral foot ulcers. He denies fever, chill, vomiting. He does have some intermittent nausea and neuropathy type pain to the lower extremities that continues. He has been wearing his offloading surgical shoes. He was seen and evaluated by infectious disease as well as vascular surgery. He plans to have an outpatient vascular surgery procedure with Dr. Tuttle. He relates his has returned home and is able to help with any foot dressing changes. His lower extremity rest pain and paresthesias are noted and consistent with his prior presentation. - Physical Exam General: Alert, Oriented x3, Cooperative Extremities: No cyanosis, Capillary Refill Less than 3 Seconds, No Calf Tenderness - Negative Radha and Adan sign bilateral, Diminished Peripheral Pulses, Edema, - - No bogginess or fluctuance on palpation bilateral foot. Compartments remain soft to palpate bilateral lower extremities Skin: Ulcer/ Wound - Plantar sub-fifth metatarsal head ulcer is devitalized and an eschar manner. There is no deep probing, maceration, purulence, streaking, erythema or odor noted to the right foot. The left sub-first metatarsal head ulcer is fibrous and granular without deep probing, maceration, purulence, streaking, erythema, or odor. The peripheral skin is hairless and atrophic bilateral. No new ulcers or skin discontinuity are noted Musculoskeletal: No Tenderness to Palpation of Joints or Extremities, Muscle Wasting, - - Dorsal contraction of lesser toes with prominent metatarsal heads. No pain with ulcer manipulation bilateral. Neurological: - - Lack of normal epicritic sensation light touch is consistent with neuropathy status bilateral lower extremities Psych/Mental Status: Normal Affect, Appropriate Vital Signs Temp Pulse Resp BP Pulse Ox 98.2 F 71 16 145/69 H 98 03/15/19 14:12 03/15/19 14:47 03/15/19 14:12 03/15/19 14:47 03/15/19 14:12 Oxygen Flow Rate (L/min) 2 Oxygen Delivery Method Nasal Cannula Weight: 118.3 kg Body Mass Index (BMI) 40.8 Finger Stick Blood Glucose 191 Intake and Output for Last 24 Hours 03/13/19 03/14/19 03/15/19 23:59 23:59 23:59 Intake Total 2363.33 / 3363.33 2700 / 2820 1570 / 1570 Output Total 90 / 190 48306 / 02420 400 / 400 Balance 2273.33 / 3173.33 -72456 / -53995 1170 / 1170 Microbiology Past 72 Hours 03/12/19 19:15 Gram Stain - Final Wound - Aerobic & Anaerobic Swabs Wound Culture - Preliminary GPC Poss Enterococcus sp Bacillus species Gram positive renee Gram positive renee#2 Gram positive renee#3 Anaerobic Culture - Preliminary Checking for anaerobes, further studies to follow. 03/12/19 21:32 Blood Culture - Preliminary Blood Culture (Wb) - Left Hand No growth in 48 hours. 03/12/19 18:34 Blood Culture - Preliminary Blood Culture (Wb) - Anticubital Left No growth in 48 hours. POC Glucose 03/15/19 03/15/19 03/14/19 11:12 09:01 21:54 POC Glucose 171 H 145 H 173 H 03/14/19 17:12 POC Glucose 255 H Medical Necessity - Tobacco Use Smoking Status: Never smoker Tobacco Use: Non-smoker Assessment/Plan All Active Problems (Last Updated 03/12/19 @ 17:43 by Kayla Tamayo MD) Osteomyelitis (Acute) Diabetes with neuropathy (hemoglobin A1c 12%) Right foot ulcer sub-fourth and fifth metatarsal heads, low suspicion for infection or osteomyelitis at this time Right fourth and fifth proximal phalanx nondisplaced nonarticular fractures Left Waller grade 1 diabetic foot ulcer sub-first metatarsal head, no infection Foot deformities including hammertoes and hallux limitus bilateral Peripheral vascular disease Other comorbidities including noncompliance, renal disease on dialysis, cardiac history Malnutrition suspected Mechanical fall with right leg injury Gait instability I reviewed and discussed his case. He remains afebrile with vital signs stable. He does not have leukocytosis. His blood cultures are negative and the superficial wound culture has mixed gram positive organisms at this time. His x-rays were reviewed with no soft tissue emphysema or foreign body. He does have notable small vessel calcification consistent with vascular disease status. He does also have cortical interruption of the fourth and fifth proximal phalanx at the metaphyseal diaphyseal junction in a transverse nondisplaced nonarticular manner. There is no periosteal reaction or osseous destruction and therefore I do not correlate this with the diagnosis of osteomyelitis. Infectious disease is on consult and appreciated. He has lack of local or systemic infection noted at this time and his antibiotics were discontinued. I recommend proceeding with wound care. To change the dressings daily with Zina. I recommend offloading the ulcers (bilateral) and right foot toe fractures with bilateral surgical shoes; heel WB. To follow up at the wound healing center at time of discharge. Vascular surgery is on consultation and appreciated. An abdominal pelvic right lower extremity arteriogram via a retrograde left common femoral approach is planned in the outpatient setting. Medical management DVT prophylaxis per primary team is greatly appreciated. Ok to d/c from a podiatry standpoint. Discharge recommendations entered electronically. Please do not hesitate to call if you have any questions. Brea Bravo DPM, [facility] [phone]
--- NOTE | 2019-03-15 15:23 | DCINST_ITS ---
Discharge Activity: May Shower - do not soak feet or submerge in water for extended time Weight Bearing Status: Partial weight bearing - heel weightbear bilateral with surgical shoes. Use assistive device for help. Keep extremity elevated above heart level: - - do not elevate lower extremities Call your doctor if your incision/area has: Continuous Slow Oozing, Sudden Increased Bleeding, Increased Pain/ Swelling, Increased Redness, Foul Smelling Discharge, Swelling at the incision site Call your doctor if you observe: Fever of 101 or Higher, Coldness, Increased Pain, Calf discomfort, Uncontrolled pain Cleanse incision/area with: Soap & Water, - - Change both foot ulcer sites daily with santyl. Apply santyl nickel thickness over the wound site and cover with gauze. Apply the gauze in gentle manner to prevent other dressing injuries. Allergies/Adverse Reactions: Allergies venom-honey bee [bee venom (honey bee)] Allergy (Verified 02/19/19 16:33) Swelling sulfamethoxazole [From Bactrim] Adverse Reaction (Verified 02/19/19 16:33) Upset Stomach trimethoprim [From Bactrim] Adverse Reaction (Verified 02/19/19 16:33) Upset Stomach Medications to take at Discharge Atorvastatin Calcium [Lipitor] 20 mg PO QHS 10/11/17 Lisinopril [Zestril] 10 mg PO DAILY 10/11/17 Pyridoxine HCl [Vitamin B-6] 100 mg PO DAILY 10/11/17 Sevelamer HCl [Renagel] 800 mg PO TID 10/11/17 Vits A,C,E/Lutein/Minerals [Ocuvite with Lutein Tablet] 1 ea PO DAILY 10/11/17 Folic Acid/Vitamin B Comp W-C [Nephrocaps, Renaphro] 1 cap PO DAILY 10/27/17 albuterol sulfate HFA 90 mcg/actuation aerosol inhaler 2 puff INHALATION Q4H PRN #18 g 02/26/18 Aspirin E.C. [Ecotrin] 81 mg PO DAILY 03/23/18 Cyclobenzaprine HCl 10 mg PO TID PRN PRN 03/23/18 Fluticasone 0.05% [Flonase Nasal [place]] 1 spray NASAL DAILY 03/23/18 Gabapentin [Neurontin] 300 mg PO BID 03/23/18 Calcitriol [Rocaltrol] 0.5 mcg PO DAILY 04/17/18 isosorbide mononitrate ER 30 mg tablet,extended release 24 hr 30 mg PO DAILY #30 tab 07/24/18 Acetaminophen [Tylenol Tablet] 650 mg PO Q6H PRN PRN tablet 09/19/18 Guaifenesin Dm [Robitussin Dm] 10 ml PO Q6H PRN PRN #1 bottle 11/21/18 Ciprofloxacin HCl 500 mg PO BID 03/12/19 Furosemide [Lasix] 40 mg PO BID 03/12/19 Insulin U-500 [Humulin R U-500 ([facility])] 85 units SQ BID 03/12/19 Metoprolol Tartrate [Lopressor (beta khoa)] 50 mg PO BID 03/12/19 Omeprazole 40 mg PO DAILY 03/12/19 Sucroferric Oxyhydroxide [Velphoro] 1,000 mg PO TID 03/12/19 proMETHazine tablet [Phenergan tablet] 25 mg PO TID PRN 03/13/19 Primary Care Physician: Augie Washburn MD [Primary Care Provider] - Test Results: Test results from this visit will be discussed in further detail at your follow- up appointment, if applicable. Please Follow Up With: Clinic,Wound When: next Wed with Dr. Bravo. Call to confirm appointment time; [phone]. When: If concern earlier, call [facility] at [phone] Proposed Discharge Date: 03/15/19
[2019-03-15 17:10] LABS: Bedside Glucose 147 mg/dL (70-110)
[2019-03-15] MEDS: proMETHazine 25 MG Tablet PO (17:56)
--- NOTE | 2019-03-15 18:14 | DCINST_ITS ---
- Discharge Diagnoses Current Active Problems: Current Active and Chronic Problems (Last Updated 03/12/19 @ 17:43 by Kayla Tamayo MD) Osteomyelitis (Acute) differential diagnosis Toe fracture, right (Chronic) Non-pressure chronic ulcer of other part of right foot with fat layer exposed (Chronic) Non-pressure chronic ulcer of other part of left foot with fat layer exposed (Chronic) Type 1 diabetes mellitus (Chronic) You will use the following diet at home:: Calorie/Carbohydrate Controlled (specify 1200, 1400, etc) - 1800 stacie Your food should be the consistency of: Regular Your liquids should be the consistency of: Regular/Thin Discharge Activity: Return to Normal Activity, May Shower - do not soak feet or submerge in water for extended time Weight Bearing Status: Partial weight bearing - heel weightbear bilateral with surgical shoes. Use assistive device for help. Keep extremity elevated above heart level: - - do not elevate lower extremities Call your doctor if your incision/area has: Continuous Slow Oozing, Sudden Increased Bleeding, Increased Pain/ Swelling, Increased Redness, Foul Smelling Discharge, Swelling at the incision site Call your doctor if you observe: Fever of 101 or Higher, Coldness, Increased Pain, Calf discomfort, Uncontrolled pain Cleanse incision/area with: Soap & Water, - - Change both foot ulcer sites daily with santyl. Apply santyl nickel thickness over the wound site and cover with gauze. Apply the gauze in gentle manner to prevent other dressing injuries. Allergies/Adverse Reactions: Allergies venom-honey bee [bee venom (honey bee)] Allergy (Verified 02/19/19 16:33) Swelling sulfamethoxazole [From Bactrim] Adverse Reaction (Verified 02/19/19 16:33) Upset Stomach trimethoprim [From Bactrim] Adverse Reaction (Verified 02/19/19 16:33) Upset Stomach Medications to take at Discharge Atorvastatin Calcium [Lipitor] 20 mg PO QHS 10/11/17 Pyridoxine HCl [Vitamin B-6] 100 mg PO DAILY 10/11/17 Sevelamer HCl [Renagel] 800 mg PO TID 10/11/17 Vits A,C,E/Lutein/Minerals [Ocuvite with Lutein Tablet] 1 ea PO DAILY 10/11/17 Folic Acid/Vitamin B Comp W-C [Nephrocaps, Renaphro] 1 cap PO DAILY 10/27/17 albuterol sulfate HFA 90 mcg/actuation aerosol inhaler 2 puff INHALATION Q4H PRN #18 g 02/26/18 Aspirin E.C. [Ecotrin] 81 mg PO DAILY 03/23/18 Cyclobenzaprine HCl 10 mg PO TID PRN PRN 03/23/18 Fluticasone 0.05% [Flonase Nasal [place]] 1 spray NASAL DAILY 03/23/18 Gabapentin [Neurontin] 300 mg PO BID 03/23/18 Calcitriol [Rocaltrol] 0.5 mcg PO DAILY 04/17/18 isosorbide mononitrate ER 30 mg tablet,extended release 24 hr 30 mg PO DAILY #30 tab 07/24/18 Acetaminophen [Tylenol Tablet] 650 mg PO Q6H PRN PRN tablet 09/19/18 Guaifenesin Dm [Robitussin Dm] 10 ml PO Q6H PRN PRN #1 bottle 11/21/18 Furosemide [Lasix] 40 mg PO BID 03/12/19 Metoprolol Tartrate [Lopressor (beta khoa)] 50 mg PO BID 03/12/19 Omeprazole 40 mg PO DAILY 03/12/19 Sucroferric Oxyhydroxide [Velphoro] 1,000 mg PO TID 03/12/19 proMETHazine tablet [Phenergan tablet] 25 mg PO TID PRN 03/13/19 Collagenase [Santyl] 1 applic TOPICAL DAILY tube 03/15/19 Insulin Lispro [Humalog KwikPen] 15 unit SUBCUT TIDAC insuln.pen 03/15/19 Insulin U-500 [Humulin R U-500 ([facility])] 50 units SUBCUT BIDAC pen 03/15/19 Lisinopril [Zestril] 20 mg PO DAILY #30 tab 03/15/19 The following prescriptions were given: Lisinopril [Zestril] 20 mg PO DAILY #30 tab Transmission Status: Pending to [facility]30 Primary Care Physician: Augie Washburn MD [Primary Care Provider] - Please follow up with your Primary Care Physician in: in 2-3 weeks Test Results: Test results from this visit will be discussed in further detail at your follow- up appointment, if applicable. Please Follow Up With: Clinic,Wound When: next Wed with Dr. Bravo. Call to confirm appointment time; [phone]. When: If concern earlier, call [facility] at [phone] Please Follow Up With: GARRICK Greene as scheduled Proposed Discharge Date: 03/15/19
--- NOTE | 2019-03-15 19:45 | NURSING ---
Pt resistant to being d/c'ed home. Dr. Moore in room discussing discharge and that all physicians consulted have cleared pt for d/c. Pt states that Dr. Rivers came in and told him that he would be here a few days, which would be tomorrow. Dr. Moore saw that pt was actually seeing Dr. Gregorio and he called her. Dr. Gregorio states ok to see pt. Dr. Moore also consulted Dr. Gregorio on discharge b/p meds. Patient kept saying that he doesn't want to go home. Pt requested phenergan at that time but then immediately stated that he wants dinner before he has to leave. Pt given phenergan per his request. Prior to entering the room this RN heard pt state to his that he wasn't going home and that if he did he would turn around and come right back in. stated that he had to come home with her because he has to help her get up in through the window as she locked herself out of the house. Then when this RN entered room to d/c pt- he reported that he just vomited and that he is now having hot and cold sweats. Notified pt that Dr. Moore has looked over all of his lab work and read consults from other physicians and that the orders is completed and discharge instructions are to be gone over at this time. Pt given insulins (lantus thrown away as not continued) and flonase given to pt. Appt. had been made for pt to f/u with wound center and this RN gave pt Dr. Christianson office phone number so that he could call in to see about discussed outpt. procedure. then states what about oxyir? Pt then became adamant that he have a prescription for oxyir for pain to bilateral lower feet ( that have neuropathy and takes OTC meds for at home) Dr. Moore notified and states that narcotics are not safe for pt due to persistent nausea and that more harm than good could result for prescription. Pt and notified of same. Pt and assisted downstairs to await their taxi.
--- NOTE | 2019-03-17 08:36 | PCM.DC.SUM ---
Discharge Date and Diagnosis Date of Admission: 03/12/19 Date of Discharge: 03/15/19 - Primary Discharge Diagnosis Active and Suspected Problems (Last Updated 03/12/19 @ 17:43 by Kayla Tamayo MD) #1 neuropathic ulceration of right and left foot-no evidence of osteomyelitis or active wound infection secondary- to medical noncompliance, e.g. weightbearing on ulcerated feet on an overlay of diabetic neuropathy, noncompliance with diet and medication administration #2 uncontrolled type 1 diabetes secondary to noncompliance #3 morbid obesity #4 pulmonary hypertension #5 chronic hypoxic respiratory failure #6 hypertension #7 diabetic neuropathy #8 obstructive sleep apnea-noncompliant with home treatment #9 stage V chronic kidney disease on dialysis secondary to type 1 diabetes #10 chronic diastolic CHF without exacerbation #11 self-neglect #12 peripheral vascular disease secondary to type 1 diabetes - Secondary Discharge Diagnosis Chronic Problems (Last Updated 03/12/19 @ 17:43 by Kayla Tamayo MD) Peripheral vascular disease (Chronic) Toe fracture, right (Chronic) Non-pressure chronic ulcer of other part of right foot with fat layer exposed (Chronic) Non-pressure chronic ulcer of other part of left foot with fat layer exposed (Chronic) Type 1 diabetes mellitus (Chronic) Morbid obesity with BMI of 40.0-44.9, adult (Chronic) Noncompliance (Chronic) CHF (congestive heart failure) (Chronic) Abnormal stress test (Chronic) TIA (transient ischemic attack) (Chronic) Pulmonary hypertension (Chronic) Morbid obesity with BMI of 40.0-44.9, adult (Chronic) End stage renal disease on dialysis (Chronic) Chronic respiratory failure with hypoxia (Chronic) HTN (hypertension) (Chronic) Hyperlipidemia (Chronic) Diabetic neuropathy (Chronic) Anemia (Chronic) SELMA (obstructive sleep apnea) (Chronic) Hospital Course and Treatment Consultations 03/12/19 18:24 Consult: Onc/Wound/travel freight and passenger agent Routine Comment: Operations: None Procedures: None Summary of Care Provided: The patient is a 48 year old M was seen in the emergency room at [facility] with a chief complaint of pain in his right lower extremity-he was noted at dialysis (patient has end-stage renal disease on dialysis) to have bilateral foot wounds and there was a concern that it may be infected and the patient was advised to go to the emergency room. Work-up in the emergency room included x-rays of both feet-there was concern for osteomyelitis in the right foot, labs revealed the patient to have poorly controlled type 1 diabetes which is chronic for the patient-hemoglobin A1c was very high. Patient was admitted to [facility], he was seen in consultation by podiatry and nephrology, podiatry felt that the patient did not have osteomyelitis of the foot, foot wounds were debrided at bedside and it was felt that the patient did not require extensive surgery on either foot. Patient was seen by wound care nurse and initially patient was placed on IV antibiotics-these were stopped before the patient was discharged-it was felt that the patient's wounds were not infected. Patient was seen in consultation by infectious diseases who did not feel the patient needed antibiotic treatment. He was also seen in consultation by vascular surgery who felt the patient had significant lower extremity large and small vessel disease. Patient was instructed to follow-up with vascular surgery as an outpatient for further work-up. As a further note, when the patient was admitted, he listed Lantus insulin and U500 insulin concurrently that he was taking at home-I talked with GARRICK Greene's office-she is a nurse practitioner taking care of the patient's diabetes, the office stated that the patient was not supposed to take Lantus insulin-only U 500. I made insulin adjustments during his hospital stay. On 03/15/2019, patient was seen and examined: On examination he appeared in good health and spirits, he appears older than his stated age. Vital signs as documented. Skin warm and dry and without overt rashes, both feet are wrapped in surgical dressing due to the presence of chronic foot wounds. Neck without JVD. Lungs clear. Heart exam notable for regular rhythm, normal sounds and absence of murmurs, rubs or gallops. Abdomen unremarkable and without evidence of organomegaly, masses, or abdominal aortic enlargement, patient is morbidly obese. Extremities nonedematous. Neuro: Cranial nerves II through XII are grossly intact, no focal motor deficits were noted, sensation to light touch and pinprick intact. Psych: Patient is alert and oriented x3, he does not appear anxious or depressed On 03/15/2019, patient was seen and examined and felt to be in stable condition for discharge home-patient requested narcotics prior to discharge which I did not supply due to the fact he has significant neuropathy of the feet and he should not have any discomfort. I felt that this was a drug-seeking behavior on the part of the patient. Patient also made comments which were overheard by nursing that he was going to go to the emergency room after I am discharged. Patient intimated that he did not want to be discharged and complained of nausea although he ordered a full meal before he left the hospital and ate it. I believe the patient has a significant component of [id number] is not apparent, he depends on his for full care and is noncompliant with his outpatient medical care. It is likely the patient will return to the hospital in the near future due to his multiple medical problems and noncompliance. - Physical Exam Vital Signs Temp Pulse Resp BP Pulse Ox 98.2 F 71 16 145/69 H 98 03/15/19 14:12 03/15/19 14:47 03/15/19 14:12 03/15/19 14:47 03/15/19 14:12 Oxygen Flow Rate (L/min) 2 Oxygen Delivery Method Room Air Weight: 118.3 kg Body Mass Index (BMI) 40.8 Finger Stick Blood Glucose 191 Intake and Output for Last 24 Hours 03/15/19 03/16/19 03/17/19 23:59 23:59 23:59 Intake Total 1920 / 1920 Output Total 850 / 850 Balance 1070 / 1070 Microbiology Past 72 Hours 03/12/19 19:15 Gram Stain - Final Wound - Aerobic & Anaerobic Swabs Wound Culture - Final Enterococcus faecalis Bacillus sp., not anthracis Corynebacterium minutissimum Anaerobic Culture - Final Anaerobic cocci 03/12/19 21:32 Blood Culture - Preliminary Blood Culture (Wb) - Left Hand No growth in 48 hours. 03/12/19 18:34 Blood Culture - Preliminary Blood Culture (Wb) - Anticubital Left No growth in 48 hours. Discharge Activity: Return to Normal Activity, May Shower - do not soak feet or submerge in water for extended time Weight Bearing Status: Partial weight bearing - heel weightbear bilateral with surgical shoes. Use assistive device for help. Keep extremity elevated above heart level: - - do not elevate lower extremities Call your doctor if your incision/area has: Continuous Slow Oozing, Sudden Increased Bleeding, Increased Pain/ Swelling, Increased Redness, Foul Smelling Discharge, Swelling at the incision site Call your doctor if you observe: Fever of 101 or Higher, Coldness, Increased Pain, Calf discomfort, Uncontrolled pain Cleanse incision/area with: Soap & Water, - - Change both foot ulcer sites daily with santyl. Apply santyl nickel thickness over the wound site and cover with gauze. Apply the gauze in gentle manner to prevent other dressing injuries. Home Medications: Medications to take at Discharge Atorvastatin Calcium [Lipitor] 20 mg PO QHS 10/11/17 Pyridoxine HCl [Vitamin B-6] 100 mg PO DAILY 10/11/17 Sevelamer HCl [Renagel] 800 mg PO TID 10/11/17 Vits A,C,E/Lutein/Minerals [Ocuvite with Lutein Tablet] 1 ea PO DAILY 10/11/17 Folic Acid/Vitamin B Comp W-C [Nephrocaps, Renaphro] 1 cap PO DAILY 10/27/17 albuterol sulfate HFA 90 mcg/actuation aerosol inhaler 2 puff INHALATION Q4H PRN #18 g 02/26/18 Aspirin E.C. [Ecotrin] 81 mg PO DAILY 03/23/18 Cyclobenzaprine HCl 10 mg PO TID PRN PRN 03/23/18 Fluticasone 0.05% [Flonase Nasal [place]] 1 spray NASAL DAILY 03/23/18 Gabapentin [Neurontin] 300 mg PO BID 03/23/18 Calcitriol [Rocaltrol] 0.5 mcg PO DAILY 04/17/18 isosorbide mononitrate ER 30 mg tablet,extended release 24 hr 30 mg PO DAILY #30 tab 07/24/18 Acetaminophen [Tylenol Tablet] 650 mg PO Q6H PRN PRN tablet 09/19/18 Guaifenesin Dm [Robitussin Dm] 10 ml PO Q6H PRN PRN #1 bottle 11/21/18 Furosemide [Lasix] 40 mg PO BID 03/12/19 Metoprolol Tartrate [Lopressor (beta khoa)] 50 mg PO BID 03/12/19 Omeprazole 40 mg PO DAILY 03/12/19 Sucroferric Oxyhydroxide [Velphoro] 1,000 mg PO TID 03/12/19 proMETHazine tablet [Phenergan tablet] 25 mg PO TID PRN 03/13/19 Collagenase [Santyl] 1 applic TOPICAL DAILY tube 03/15/19 Insulin Lispro [Humalog KwikPen] 15 unit SUBCUT TIDAC insuln.pen 03/15/19 Insulin U-500 [Humulin R U-500 (BKC)] 50 units SUBCUT BIDAC pen 03/15/19 Lisinopril [Zestril] 40 mg PO BID 03/16/19 Primary Care Physician: Augie Washburn MD [Primary Care Provider] - Please follow up with your Primary Care Physician in: in 2-3 weeks Please Follow Up With: Clinic,Wound When: next Wed with Dr. Bravo. Call to confirm appointment time; [phone]. When: If concern earlier, call [facility] at [phone] Please Follow Up With: GARRICK Greene as scheduled Disposition: Home with Home Health Minutes spent on discharge:: 35 Patient Condition:: Stable Medical Necessity - Tobacco Use Smoking Status: Never smoker Tobacco Use: Non-smoker Meaningful Use Info Meaningful Use Diagnoses (Choose all that apply): None applicable Code Visit Inpatient E&M: 64594 Disch Hosp
== END 2019-03-15 19:42 | disposition home or self-care (01) | DRG 623 ==
LOC: ED 14:25 → MS3 17:46
PROVIDERS: Internal Medicine; Internal Medicine Nephrology; Physician Assistant; Admitting Provider Hospitalist; Emergency Provider Emergency Medicine; Family Provider Internal Medicine; PCP Internal Medicine; Visit Provider Internal Medicine
DX: E10.621 Type 1 diabetes mellitus with foot ulcer (principal); J96.11 Chronic respiratory failure with hypoxia; I13.2 Hypertensive heart and chronic kidney disease with heart failure and with stage 5 chronic kidney disease, or end stage renal disease; I50.32 Chronic diastolic (congestive) heart failure; Z68.41 Body mass index [BMI] 40.0-44.9, adult; L97.512 Non-pressure chronic ulcer of other part of right foot with fat layer exposed; L97.522 Non-pressure chronic ulcer of other part of left foot with fat layer exposed; E10.65 Type 1 diabetes mellitus with hyperglycemia; E10.42 Type 1 diabetes mellitus with diabetic polyneuropathy; E10.22 Type 1 diabetes mellitus with diabetic chronic kidney disease; N18.6 End stage renal disease; D63.1 Anemia in chronic kidney disease; E10.51 Type 1 diabetes mellitus with diabetic peripheral angiopathy without gangrene; I27.20 Pulmonary hypertension, unspecified; G47.33 Obstructive sleep apnea (adult) (pediatric); E78.5 Hyperlipidemia, unspecified; I16.0 Hypertensive urgency; K21.9 Gastro-esophageal reflux disease without esophagitis; E10.319 Type 1 diabetes mellitus with unspecified diabetic retinopathy without macular edema; E66.01 Morbid (severe) obesity due to excess calories; Z91.19 Patient's noncompliance with other medical treatment and regimen; Z99.2 Dependence on renal dialysis; Z91.15 Patient's noncompliance with renal dialysis; Z79.4 Long term (current) use of insulin; Z91.14 Patient's other noncompliance with medication regimen; Z91.11 Patient's noncompliance with dietary regimen; Z79.82 Long term (current) use of aspirin; Z79.899 Other long term (current) drug therapy; Z86.73 Personal history of transient ischemic attack (TIA), and cerebral infarction without residual deficits
CPT/HCPCS: 36415; 73590; 73630; 80048; 80202; 82962; 83036; 84100; 85025; 85610; 85652; 85730; 86140; 87040; 87070; 87075; 87077; 87186; 87205; 87640; 90937; 93923; 97116; 97162; 97166; 97530; 97802; 99285; J7030; J7040; J7050; A4216; G0257; J2405

== ENCOUNTER 2019-03-16 03:21 | Observation (INO) | payer MEDICARE, SELFPAY ==
[2019-03-12 18:41] VITALS: BMI 40.8
[2019-03-16] VITALS (17 sets, daily range): BP systolic 80–158; BP diastolic 41–98; PULSE 64–121; RESP 12–18; TEMP 36.2–37; O2SAT 94–99; BMI 43.7; BMI 39.0
--- NOTE | 2019-03-16 03:27 | RAD_ITS ---
STUDY: X-RAY CHEST REASON FOR EXAM: Male, 48 years old. Chest pain and shortness of breath TECHNIQUE: Single AP portable view of the chest. COMPARISON: 02/19/2019 FINDINGS: There are superimposed monitor leads. Compression of the basilar parenchyma seen to a similar degree on previous exam. There is no demonstrated pleural abnormality. Stable cardiac enlargement. Normal mediastinum and esmer. Normal visualized pulmonary arteries. Normal visualized aortic arch and descending thoracic aorta. Normal visualized thoracic spine. Normal visualized ribs, clavicles, and shoulders. There is no demonstrated abnormality of the visualized soft tissue structures of the upper abdomen. RAD/Chest 1 View (Portable) IMPRESSION: Cardia megaly and compression of the basilar parenchyma. No pulmonary edema, congestive heart failure or confluent pneumonia. Electronically Signed: Cindy Bhat MD at 4:17 EDT , Service support ,
--- NOTE | 2019-03-16 03:27 | EKG12_ITS ---
Test Reason : CP Blood Pressure : / mmHG Vent. Rate : 073 BPM Atrial Rate : 073 BPM P-R Int : 154 ms QRS Dur : 088 ms QT Int : 390 ms P-R-T Axes : 009 007 -48 degrees QTc Int : 429 ms Normal sinus rhythm Nonspecific ST and T wave abnormality Abnormal ECG Confirmed by MORGAN LOMELI, IKE ([id number]), sound editor DEREK KEARNS ([id number]) on 03/19/2019 11:55:54 AM Referred By: KATIE Confirmed By:KENNEDY MORA MD
--- NOTE | 2019-03-16 03:28 | ED.DCSUM_ITS ---
- ER Visit Summary Date of Service: 03/16/19 Chief Complaint: Chest pain History of Present Illness: The patient is a 48 M who presents with chest pain that began today. Patient states the pain has been constant for the past 5-1/2 hours. Patient states the pain is over the substernal area. Patient describes it as dull. Patient admits to some nausea and vomiting with the pain. Patient also admits to shortness of breath. Patient also admits to diaphoresis. Patient denies any fevers but admits to a cough. Patient denies any sputum production. Patient admits to some palpitations and lightheadedness. Patient has a history of hypertension, diabetes, and a family history of father who had an NJ at a young age. Patient also has a history of end-stage renal disease. Patient denies any PE risk factors Physical Examination: Vital signs are stable. Patient is afebrile. Patient is in no acute distress. Oral mucosa is pink and moist. Neck is supple. Trachea is midline. There is no JVD noted. Heart was regular rate and rhythm. Lungs are clear and equal bilateral. Abdomen is soft. Bowel sounds are normal. There is no tenderness. There is no guarding noted. Skin is warm dry. Cranial nerves II through XII are intact. There are no focal motor or sensory deficits noted. Extremities are intact. There is some mild tenderness over the right lower leg. Test Results: EKG showed a normal sinus rhythm with a rate of 73. There are nonspecific ST-T wave changes noted. This was unchanged compared to previous EKG dated 02/19/2019. CBC shows mild anemia with a hemoglobin of 10.5 and hematocrit 33.7. Basic metabolic profile showed a BUN of 44 and creatinine 6.35. Patient has a history of end-stage renal disease and is on dialysis on Tuesdays, , and Saturdays. INR is 1.0. D-dimer was elevated 0.97. Troponin was less than 0.015. Portable chest x-ray does not show any acute cardiopulmonary process. CTA of the chest was obtained due to the elevated d- dimer. There is no evidence of pulmonary embolism, aneurysm, or dissection. Emergency Department Course and Treatment: Patient was given aspirin and sublingual nitroglycerin here. Patient had improvement of his symptoms with sublingual nitroglycerin. Patient has a HEART score of 5. Case was discussed with the hospitalist. She will admit the patient for chest pain. Patient and family understood and were agreeable with the plan. All questions were answered. Disposition: Admit for observation Impression: Chest pain This note was generated with [employer] dictation software. It may contain incorrect words, spelling, and punctuation that were not noted in review of the chart prior to signing ED Disposition - Plan for ED Patient: Disposition: Acute Care [facility] Diagnosis: Chest pain Referrals: Augie Washburn MD [Primary Care Provider] -
[2019-03-16] MEDS: Nitroglycerin SL (ED/IMG/CATH) 0.4 MG TABLET SUBLINGUAL (03:42)
[2019-03-16 03:45] LABS: Absolute Lymphocyte Count 1.11 X10^3/uL (0.83-4.51); Absolute Neutrophil Count 6.3 X10^3/uL (2.0-7.7); Basophil# 0.05 X10^3/uL; Basophil% 0.6 % (0-1); Eosinophil# 0.33 X10^3/uL; Eosinophils% 3.9 % (0-5); Hematocrit 33.7 % (40-54); Hemoglobin 10.5 g/dL (13.0-16.5); Lymphocyte # 1.11 X10^3/ul (4.0); Lymphocyte % 13.1 % (19-41); Mean Corp Hgb Conc 31.2 g/dL (32-36); Mean Corpuscular Hgb 29.7 pg (27.0-32.0); Mean Corpuscular Volume 95.2 fL (80-94); Mean Platelet Vol. 9.8 fl (6.2-12.0); Monocyte# 0.55 X10^3/uL; Monocyte% 6.5 % (0-10); NRBC Flagged by Analyzer 0 % (0-5); Neutrophil # 6.29 X10^3/uL (2.7-7.7); Neutrophil % 74.5 % (47-70); Platelet Count 265 K/mm3 (150-450); RBC Distribution Width CV 13.4 % (11.6-14.6); RBC Distribution Width SD 46.9 fl (35.1-43.9); Red Blood Count 3.54 M/mm3 (4.6-6.2); White Blood Count 8.5 K/mm3 (4.4-11.0)
[2019-03-16 03:52] LABS: Prothrombin Time (Protime)PT. 13.4 SECONDS (11.7-14.9)
[2019-03-16 03:53] LABS: Partial Thromboplast Time 32.6 Seconds (24.1-36.2)
[2019-03-16 03:56] LABS: D-Dimer Quantitative (DVT/PE) 0.97 FEU/ug/m (0.27-0.49)
--- NOTE | 2019-03-16 03:56 | ED.RN ---
RECEIVED CRITICAL D-DIMER RESULT OF 0.97, AND RN AWARE. PENDING FURTHER ORDERS.
--- NOTE | 2019-03-16 03:59 | CT_ITS ---
STUDY: CTA CHEST REASON FOR EXAM: Male, 48 years old. Chest pain, shortness of breath and nausea since last night, elevated d-dimer, scheduled for dialysis today. History of hypertension, diabetes, CHF, RI, chronic kidney disease on dialysis. RADIATION DOSAGE (If Supplied By Facility): CTDIvol = ( 13.85 ) mGy, DLP = ( 503.05 ) mGycm TECHNIQUE: The examination was performed with the intravenous administration of 100M L IV Isovue 370. Post-processing of the angiographic images was performed, with multiplanar reformation and 3D reconstruction. There is image blurring as a result of cardiac motion. Diagnostic accuracy is somewhat reduced. However, there is substantial diagnostic information remaining available on this study. Individualized dose optimization techniques were used for this CT. COMPARISON: Portable chest x-ray 03/16/2019. CT chest noncontrast. Left . FINDINGS: Normal enhancement of the main pulmonary artery and right and left pulmonary arteries. Normal enhancement of the bilateral peripheral pulmonary arteries. There is no demonstrated pulmonary embolism. Normal thoracic aorta and visualized great vessels. There is no demonstrated aortic dissection. There is cardiac enlargement. There are calcifications of the coronary arteries. There are multiple lymph nodes, which are normal to upper limits of normal in size most compatible with reactive lymph hyperplasia. Normal hilar regions. Normal visualized trachea and bronchi. The lungs are under expanded. Nonspecific compression off parenchyma.. Normal pleura. Normal chest wall structures. There are degenerative changes of thoracic spine. There is sclerosis of the upper abdominal aorta and greater branches. Obesity. Contracted gallbladder. The spleen and liver appear enlarged although incompletely imaged with stable appearance. CT/CTA Chest W/WO Contrast IMPRESSION: No demonstrated pulmonary embolism, aneurysm, leak or arterial dissection. Coronary megaly, nonspecific compression of dependent parenchyma with extremely low lung volume. No pulmonary edema, congestive heart failure or confluent pneumonia. 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 Atherosclerosis of the upper abdominal aorta and small vessels. Incompletely imaged liver and spleen appear enlarged. Electronically Signed: Cindy Bhat MD at 5:51 EDT , Service support ,
--- NOTE | 2019-03-16 04:02 | ED.RN ---
New order for CT with contrast. Chemistry labs are not back yet. I asked Dr. Kimbrough if he wanted to wait or send him without. stated that since he has dialysis in AM, we can send him as the dialysis process with filter the contrast out.
[2019-03-16 04:25] LABS: Anion Gap 10 (5-15); BUN 44 mg/dL (7-18); BUN/Creat Ratio 6.9 RATIO (10-20); Calcium,Total 9.1 mg/dL (8.5-10.1); Chloride 96 mmol/L (98-107); Creatinine, Serum 6.35 mg/dL (0.70-1.30); EST Glomerular Filtration Rate 10 mL/min (>60); Est Glom Filt Rate - Afr Amer 12 mL/min (>60); Estimated Creatinine Clearance 13.01 ml/min; Glucose 60 mg/dL (74-106); Potassium 4.6 mmol/L (3.5-5.1); Sodium Level 134 mmol/L (136-145)
--- NOTE | 2019-03-16 04:58 | PCM.HP.STD ---
Problem List (1) Chest pain Status: Acute Qualifiers: Chest pain type: unspecified Qualified Code(s): R07.9 - Chest pain, unspecified (2) Peripheral vascular disease Status: Chronic (3) Type 1 diabetes mellitus Status: Chronic Qualifiers: Diabetes mellitus complication status: with other specified complication Qualified Code(s): E10.69 - Type 1 diabetes mellitus with other specified complication (4) Morbid obesity with BMI of 40.0-44.9, adult Status: Chronic (5) CHF (congestive heart failure) Status: Chronic Qualifiers: Heart failure type: diastolic Heart failure chronicity: chronic Qualified Code(s): I50.32 - Chronic diastolic (congestive) heart failure (6) TIA (transient ischemic attack) Status: Chronic Qualifiers: Transient cerebral ischemia type: unspecified Qualified Code(s): G45.9 - Transient cerebral ischemic attack, unspecified (7) Pulmonary hypertension Status: Chronic (8) End stage renal disease on dialysis Status: Chronic (9) HTN (hypertension) Status: Chronic Qualifiers: Hypertension type: essential hypertension Qualified Code(s): I10 - Essential (primary) hypertension (10) Hyperlipidemia Status: Chronic Qualifiers: Hyperlipidemia type: unspecified Qualified Code(s): E78.5 - Hyperlipidemia, unspecified (11) Diabetic neuropathy Status: Chronic Qualifiers: (12) Anemia Status: Chronic Qualifiers: (13) SELMA (obstructive sleep apnea) Status: Chronic History of Present Illness Date of Admission: 03/16/19 Chief Complaint: Chest discomfort, dyspnea, N/V, Syncope The patient is a 48 y/o M w/ PMHx: Diabetes mellitus type I w/ neuropathy, HTN, HLD, Chronic Diastolic CHF, Hx TIA, Morbid Obesity, AOCD, SELMA, ESRD on HD T, , Sat following with Dr. Gregorio, recently discharged on 03/15/19 wit recent treatment and evaluation of BL foot ulcers with low suspicion for active infection as initial concern for osteomyelsis ruled out with planned outpatient vascular surgery with Dr. Tuttle who re-presents to the [facility] ED on 03/16/19 with onset of nausea and emesis which began prior to return to home and had been ongoing with upon transition to his home felt weak, lightheaded, dyspneic and dizzy with onset syncopal event with quick return of consciousness with then onset of midsternal chest pain, described as dull aching, non-radiating, noted as constant for several hours (5-6), rated 5-7/10 with notable dyspnea. Work-up in the ED included T 98.6, heart rate 74, BP 142/95, respiratory rate 14, 96% on 2 L nasal cannula, CBC with W BC 8.5, hemoglobin 10.5, platelet 265 with mild shift, unremarkable PT, INR and PTT, elevated d-dimer 0.97, BMP with sodium 134, chloride 96, BUN/creatinine 44/6.35, glucose 60, troponin less than 0.015, EKG with sinus rhythm with no acute evidence of ischemia, chest x-ray with no acute cardiopulmonary process, CTPA obtained with no acute evidence of pulmonary emboli. Past Medical History Past Medical History (Chronic Problems): Chronic Problems (Last Updated 03/12/19 @ 17:43 by Kayla Tamayo MD) Peripheral vascular disease (Chronic) Toe fracture, right (Chronic) Non-pressure chronic ulcer of other part of right foot with fat layer exposed (Chronic) Non-pressure chronic ulcer of other part of left foot with fat layer exposed (Chronic) Type 1 diabetes mellitus (Chronic) Morbid obesity with BMI of 40.0-44.9, adult (Chronic) Noncompliance (Chronic) CHF (congestive heart failure) (Chronic) Abnormal stress test (Chronic) TIA (transient ischemic attack) (Chronic) Pulmonary hypertension (Chronic) Morbid obesity with BMI of 40.0-44.9, adult (Chronic) End stage renal disease on dialysis (Chronic) Chronic respiratory failure with hypoxia (Chronic) HTN (hypertension) (Chronic) Hyperlipidemia (Chronic) Diabetic neuropathy (Chronic) Anemia (Chronic) SELMA (obstructive sleep apnea) (Chronic) Medical History: Medical History (Last Updated 03/12/19 @ 17:43 by Kayla Tamayo MD) Chronic respiratory failure with hypoxia (Chronic) J96.11 HTN (hypertension) (Chronic) I10 Hyperlipidemia (Chronic) E78.5 Diabetic neuropathy (Chronic) E11.40 Anemia (Chronic) D64.9 SELMA (obstructive sleep apnea) (Chronic) G47.33 ESRD (end stage renal disease) on dialysis N18.6, Z99.2 cataract surgery, l eye Hypotension I95.9 Morbid obesity E66.01 Type 2 diabetes mellitus with other diabetic kidney complication E11.29 dx : age 16 last exacerbation : dka : never hypoglycemic episode : 2013 er visit : 2013 Allergies venom-honey bee [bee venom (honey bee)] Allergy (Verified 03/16/19 03:22) Swelling sulfamethoxazole [From Bactrim] Adverse Reaction (Verified 03/16/19 03:22) Upset Stomach trimethoprim [From Bactrim] Adverse Reaction (Verified 03/16/19 03:22) Upset Stomach Home Medications: Ambulatory Orders Medication Instructions Recorded Atorvastatin Calcium [Lipitor] 20 mg PO QHS 10/11/17 Pyridoxine HCl [Vitamin B-6] 100 mg PO DAILY 10/11/17 Sevelamer HCl [Renagel] 800 mg PO TID 10/11/17 Vits A,C,E/Lutein/Minerals 1 ea PO DAILY 10/11/17 [Ocuvite with Lutein Tablet] Folic Acid/Vitamin B Comp W-C 1 cap PO DAILY 10/27/17 [Nephrocaps, Renaphro] albuterol sulfate HFA 90 2 puff INHALATION Q4H PRN #18 g 02/26/18 mcg/actuation aerosol inhaler Aspirin E.C. [Ecotrin] 81 mg PO DAILY 03/23/18 Cyclobenzaprine HCl 10 mg PO TID PRN PRN 03/23/18 Fluticasone 0.05% [Flonase Nasal 1 spray NASAL DAILY 03/23/18 [place]] Gabapentin [Neurontin] 300 mg PO BID 03/23/18 Calcitriol [Rocaltrol] 0.5 mcg PO DAILY 04/17/18 isosorbide mononitrate ER 30 mg 30 mg PO DAILY #30 tab 07/24/18 tablet,extended release 24 hr Acetaminophen [Tylenol Tablet] 650 mg PO Q6H PRN PRN tablet 09/19/18 Guaifenesin Dm [Robitussin Dm] 10 ml PO Q6H PRN PRN #1 bottle 11/21/18 Furosemide [Lasix] 40 mg PO BID 03/12/19 Metoprolol Tartrate [Lopressor 50 mg PO BID 03/12/19 (beta khoa)] Omeprazole 40 mg PO DAILY 03/12/19 Sucroferric Oxyhydroxide [Velphoro] 1,000 mg PO TID 03/12/19 proMETHazine tablet [Phenergan 25 mg PO TID PRN 03/13/19 tablet] Collagenase [Santyl] 1 applic TOPICAL DAILY tube 03/15/19 Insulin Lispro [Humalog KwikPen] 15 unit SUBCUT TIDAC insuln.pen 03/15/19 Insulin U-500 [Humulin R U-500 50 units SUBCUT BIDAC pen 03/15/19 ([facility])] Lisinopril [Zestril] 40 mg PO BID 03/16/19 Surgical History: Surgical History (Last Reviewed 07/16/18 @ 12:34 by Claudette Cheek) S/P tonsillectomy Z90.89 dialysis fistula Rt Arm Surgical History: tonsillectomy, - - AV fistula in right arm. Psychiatric History: No pertinent psych hx Lives: Spouse/ Significant Other Smoking Status: Never smoker Tobacco Use: Non-smoker Alcohol: None Drugs: None - *Family History Maternal Family History: Family History (Last Reviewed 01/15/19 @ 01:57 by zEe Rivera MD) Mother Hypertension Heart disease Diabetes Father Hypertension Heart disease Brother Heart disease History Items: Diabetes, Heart Disease, Hypertension, Renal Disease Paternal Family History: Family History (Last Reviewed 01/15/19 @ 01:57 by Eze Rivera MD) Mother Hypertension Heart disease Diabetes Father Hypertension Heart disease Brother Heart disease History Items: Cancer - liver, Diabetes, Heart Disease Review of Systems Constitutional: Reports: Anorexia, Malaise, Weakness, Fatigue. Denies: Chills, Fever, Weight Change HEENT: Denies: Head Aches, Sinus Congestion, Sinus Drainage Cardiovascular: Reports: Chest Pain, Light Headedness, Syncope. Denies: Palpitations Respiratory: Reports: Shortness of Breath, Shortness of breath at rest, Shortness of breath upon exertion. Denies: Cough, Sputum production Gastrointestinal: Reports: Nausea, Vomiting. Denies: Abdominal Pain Genitourinary: Denies: Dysuria Musculoskeletal: Reports: Joint Pain. Denies: Joint Tenderness Skin: Reports: Skin Changes, Wounds. Denies: Rash Neurological: Reports: Numbness, Tingling. Denies: Focal weakness Psychiatric: Denies: Anxiety, Depression, Homicidal Ideations, Suicidal Ideations Hematologic/ Lymphatic: Reports: Anemia. Denies: Easy Bruising, Easy Bleeding VTE Information - Inpt Only VTE Present on Admission: No VTE Mechan Device Prophylaxis: SCD's VTE Pharm Prophylaxis ordered?: Yes Patient Problems: Active and Suspected Problems (Last Updated 03/12/19 @ 17:43 by Kayla Tamayo MD) Chest pain (Acute) Subjective: Seated upright in the ED bed, fatigued, awakens to stimuli but falls back asleep quickly, no acute distress currently. Objective: Physical Examination: General: awakens to stimuli but very fatigued, falls back asleep quickly, alert once awake, oriented to self, place and recent events, remains cooperative, seated upright in the bed, no acute distress currently. Skin: normal color, turgor, no icterus, cyanosis except bilateral foot wounds. HEENT: AT/NC, EOMI, PERRLA, mildly dry MM, no carotid bruits or JVD noted. Lungs: Diminished breath sounds throughout, greater bilateral bases, distant, moderate effort, no rales, ronchi or wheezing. Heart: Regular rate and rhythm; no gallop, rub audible. Abdomen: soft, morbidly obese, NTTP, ND, distant normal BS, unable to discern HSM secondary morbidly obese habitus. Extremities: no cyanosis, clubbing, bilateral lower extremity chronic venous stasis, bilateral foot wounds. Neurological: awakens to stimuli but very fatigued, falls back asleep quickly, alert once awake, oriented to self, place and recent events, remains cooperative, seated upright in the bed, no acute distress currently; cognitive function increase currently secondary to fatigue; pupils equally reactive to light and accomodation; cranial nerves II-XII grossly normal, moving all 4 extremities, no focal deficits, strength severely global decrease secondary to acute presentation. Psychiatric: affect appears flat, fatigued, no acute evidence of depressive or anxiety feelings. - Physical Exam Vital Signs Temp Pulse Resp BP Pulse Ox 98.6 F 71 13 141/60 H 99 03/16/19 03:22 03/16/19 04:52 03/16/19 04:52 03/16/19 04:52 03/16/19 04:52 Oxygen Flow Rate (L/min) 2 Oxygen Delivery Method Nasal Cannula Weight: 278 lb 14.156 oz Body Mass Index (BMI) 43.7 Finger Stick Blood Glucose 191 Laboratory Tests Past 24 Hrs 03/16/19 03/16/19 03/16/19 03:35 03:35 03:35 WBC 8.5 RBC 3.54 L Hgb 10.5 L Hct 33.7 L MCV 95.2 H MCH 29.7 MCHC 31.2 L RDW Std Deviation 46.9 H RDW Coeff of Roberto 13.4 Plt Count 265 MPV 9.8 Immature Gran % (Auto) 1.400 H Neut % (Auto) 74.5 H Lymph % (Auto) 13.1 L Rock % (Auto) 6.5 Eos % (Auto) 3.9 Baso % (Auto) 0.6 Absolute Neuts (auto) 6.3 Absolute Lymphs (auto) 1.11 Nucleated RBC % 0 PT 13.4 INR 1.0 APTT 32.6 D-Dimer Quant (PE/DVT) 0.97 H* Sodium 134 L Potassium 4.6 Chloride 96 L Carbon Dioxide 28.0 Anion Gap 10 BUN 44 H Creatinine 6.35 H Estim Creat Clear Calc 13.01 Est GFR (MDRD) Af Amer 12 L Est GFR (MDRD) Non-Af 10 L BUN/Creatinine Ratio 6.9 L Glucose 60 L Calcium 9.1 Troponin I < 0.015 Assessment/Plan All Active Problems (Last Updated 03/12/19 @ 17:43 by Kayla Tamayo MD) Osteomyelitis (Acute) Chest pain (Acute) The patient is a 48 y/o M w/ PMHx: Diabetes mellitus type I w/ neuropathy, HTN, HLD, Chronic Diastolic CHF, Hx TIA, Morbid Obesity, AOCD, SELMA, ESRD on HD T, Th, Sat following with Dr. Gregorio who presents to the [facility] ED on 03/16/19 with onset of nausea and emesis which began prior to return to home and had been ongoing with upon transition to his home felt weak, lightheaded, dyspneic and dizzy with onset syncopal event with quick return of consciousness with then onset of midsternal chest pain, described as dull aching, non-radiating, noted as constant for several hours (5-6), rated 5-7/10 with notable dyspnea. 1. Dyspnea, Lightheadedness, Dizziness, Nausea and Emesis with Syncope Event and concurrent Chest Pain: Work-up in the ED included T 98.6, heart rate 74, BP 142/95, respiratory rate 14, 96% on 2 L nasal cannula, CBC with W BC 8.5, hemoglobin 10.5, platelet 265 with mild shift, unremarkable PT, INR and PTT, elevated d-dimer 0.97, BMP with sodium 134, chloride 96, BUN/creatinine 44/6.35, glucose 60, troponin less than 0.015, EKG with sinus rhythm with no acute evidence of ischemia, chest x-ray with no acute cardiopulmonary process. CTPA with no evidence of acute PE or acute process. Will admit to PCU, place on a monitored bed to assure no acute myocardial infarction with serial cardiac enzymes and EKGs. If EKGs and cardiac enzymes remain unremarkable will pursue a.m. cardiac stress testing. Given history we will additionally obtain echocardiogram. ASA, NG, morphine. 2. Chronic bilateral foot ulcers: Recently discharged day prior with admission for evaluation of bilateral foot ulcers, initially suspected osteomyelitis however ruled out, discharged home with continued dressing and wound care with plan to follow-up outpatient with vascular surgery. We will consult wound RN, continue dressing changes. 3. Chronic diastolic CHF: We will continue home aspirin, statin, metoprolol, lisinopril, Lasix. 4. ESRD: Patient on HD Monday, , Monday, following with Dr. Gregorio will be consulted. Given as noted CTPA will plan to continue with dialysis today. 5. Hypertension: Continue home regimen including isosorbide, Lasix, metoprolol, lisinopril, PRN hydralazine. 6. Hyperlipidemia: Continue home statin regimen. AM FLP. 7. Diabetes mellitus type II with neuropathy: Noncompliant history, will continue home insulin and gabapentin regimen, ADA diet, accu checks w/ ISS. 8. Morbid Obesity: Weight loss and lifestyle changes encouraged, nutrition consulted. 9. GERD: We will continue home PPI. 10. AOCD: Admission Hgb 10.5, stable, trend. 11. SELMA: BIPAP q HS. 12. DVT Prophylaxis: SCDs, heparin. Code Visit OBSV E&M: 75052 Initial observation care L3
[2019-03-16] MEDS: Dextrose 50%-Water 25 GM/50 ML DISP.SYRIN IV (06:50)
--- NOTE | 2019-03-16 06:52 | EKG12_ITS ---
Test Reason : Blood Pressure : / mmHG Vent. Rate : 065 BPM Atrial Rate : 065 BPM P-R Int : 156 ms QRS Dur : 090 ms QT Int : 418 ms P-R-T Axes : 028 002 -14 degrees QTc Int : 434 ms Normal sinus rhythm Nonspecific T wave abnormality Abnormal ECG No previous ECGs available Confirmed by HOUSTON LOMELI, CANDIE ([id number]), material expeditor DEREK KEARNS ([id number]) on 03/19/2019 12:24:01 PM Referred By: YULY Confirmed By:CANDIE CONRAD MD
--- NOTE | 2019-03-16 06:52 | ECHOCS_ITS ---
Reason For Study: Syncope/Near Syncope Procedure This was a 2D Doppler, Color Flow transthoracic echocardiogram. Contrast injection was performed. The study was technically difficult. Exam performed portable in patient room. Left Ventricle Normal LV size. The estimated ejection fraction is 60 %. Stage 2 diastolic dysfunction. No regional wall motion abnormalities noted. Right Ventricle Normal RV size. Normal systolic function. Atria Normal left atrium. Normal right atrium. No doppler evidence for ASD. Mitral Valve There is no mitral valve stenosis. No mitral valve insufficiency. Tricuspid Valve There is no tricuspid stenosis. Trivial tricuspid valve insufficiency. Pulmonary artery systolic pressure is 35 mmHg. Aortic Valve Trisinus/trileaflet aortic valve. There is no aortic stenosis. No aortic valve insufficiency. Pulmonic Valve There is no pulmonic valvular stenosis. No pulmonic valve insufficiency. Great Vessels Normal aortic root. Pericardium/Pleural No pericardial effusion. Medication Diluted definity 3ml given slow IV push to enhance endocardial definition. MMode/2D Measurements & Calculations LVIDd: 5.0 cm IVSd: 1.3 cm Ao root diam: 3.4 cm LVIDs: 3.7 cm LVPWd: 1.6 cm FS: 26.3 % LAV(MOD-bp): 75.6 ml LVAd ap4: 38.2 cm2 SV(MOD-sp4): 72.2 ml LAV(MOD-bp) Indexed: 32.5 ml/m2 EDV(MOD-sp4): 127.0 ml LAV(MOD-sp2): 67.2 ml EDV(sp4-el): 132.2 ml LAV(MOD-sp4): 80.5 ml LVAs ap4: 22.4 cm2 ESV(MOD-sp4): 54.9 ml ESV(sp4-el): 53.9 ml EF(MOD-sp4): 56.8 % EF(sp4-el): 59.2 % SV(sp4-el): 78.3 ml LA A4 area: 24.3 cm2 LA dimension(2D): 4.5 cm RA A4 area: 17.0 cm2 Doppler Measurements & Calculations MV E max emre: 104.2 cm/sec Lat Peak E' Emre: 8.5 cm/sec Med Peak E' Emre: 5.9 cm/sec MV A max emre: 92.2 cm/sec E/E' lat: 12.2 E/E' med: 17.7 MV E/A: 1.1 Ao V2 max: 165.5 cm/sec LV V1 max: 112.9 cm/sec PA V2 max: 91.2 cm/sec Ao max P.0 mmHg LV V1 max P.1 mmHg Ao V2 mean: 112.6 cm/sec Ao mean P.7 mmHg Ao V2 VTI: 32.5 cm TR max emre: 302.0 cm/sec TR max P.5 mmHg Interpretation Summary Stage 2 diastolic dysfunction. Diluted definity 3ml given slow IV push to enhance endocardial definition. The estimated ejection fraction is 60 %. The study was technically difficult. Ordering Physician: Carmencita Dasilva Referring Physician: Augie Washburn Performed By: Sameera Stevens, CLINT, RVT
[2019-03-16 07:13] LABS: Magnesium 2.1 mg/dL (1.6-2.6)
[2019-03-16 07:30] LABS: Partial Thromboplast Time 33.8 Seconds (24.1-36.2)
[2019-03-16 07:31] LABS: Bedside Glucose 67 mg/dL (70-110)
[2019-03-16 07:31] LABS: Bedside Glucose 126 mg/dL (70-110)
[2019-03-16 10:10] LABS: Bedside Glucose 89 mg/dL (70-110)
[2019-03-16 10:10] LABS: Bedside Glucose 95 mg/dL (70-110)
[2019-03-16] MEDS: proMETHazine 25 MG/ML Syringe 6.25 MG IV (11:07)
--- NOTE | 2019-03-16 12:00 | NURSING ---
Patient's 's grandmother phones with concerns. Informed her that RN would provide CM with her name and number for return call. RN spoke with LIZETTE Stevenson and informed her of the concerns and that family member would like to be called back.
--- NOTE | 2019-03-16 12:37 | PN_ITS ---
<Modesta Stoddard - Last Filed: 03/16/19 12:56> Patient Problems: Active and Suspected Problems (Last Updated 03/12/19 @ 17:43 by Kayla Tamayo MD) Chest pain (Acute) Subjective: Patient seen and examined. Lethargic, BiPAP in place. Awakes briefly, denies chest pain. Family at bedside. Updated on plan of care. - Physical Exam General: No apparent distress, Lethargic HEENT: Atraumatic, PERRLA, EOMI, Normocephalic Oral: Moist Mucosa Neck: Supple, No JVD, Negative Carotid Bruits Lungs: Clear to auscultation, Diminished Cardiovascular: Regular rate, Regular Rhythm, Normal S1, Normal S2, No murmurs Abdomen: Bowel Sounds Present, Soft, Non Tender, Non-Distended Extremities: No clubbing, No cyanosis, No edema, Capillary Refill Less than 3 Seconds Skin: No rashes, No breakdown, - - Chronic diabetic bilateral foot ulcerations. Musculoskeletal: No Tenderness to Palpation of Joints or Extremities Neurological: Cranial nerves II-XII grossly intact, Neuro grossly intact Psych/Mental Status: Flat Affect Vital Signs Temp Pulse Resp BP Pulse Ox 97.1 F L 65 16 150/65 H 99 03/16/19 08:29 03/16/19 08:29 03/16/19 08:29 03/16/19 08:29 03/16/19 08:29 Oxygen Flow Rate (L/min) 2 Oxygen Delivery Method Nasal Cannula Weight: 272 lb 0.807 oz Body Mass Index (BMI) 39.0 Finger Stick Blood Glucose 191 Laboratory Tests Past 24 Hrs 03/16/19 03/16/19 03/16/19 03:35 03:35 03:35 WBC 8.5 RBC 3.54 L Hgb 10.5 L Hct 33.7 L MCV 95.2 H MCH 29.7 MCHC 31.2 L RDW Std Deviation 46.9 H RDW Coeff of Roberto 13.4 Plt Count 265 MPV 9.8 Immature Gran % (Auto) 1.400 H Neut % (Auto) 74.5 H Lymph % (Auto) 13.1 L [place] % (Auto) 6.5 Eos % (Auto) 3.9 Baso % (Auto) 0.6 Absolute Neuts (auto) 6.3 Absolute Lymphs (auto) 1.11 Nucleated RBC % 0 PT 13.4 INR 1.0 APTT 32.6 D-Dimer Quant (PE/DVT) 0.97 H* Sodium 134 L Potassium 4.6 Chloride 96 L Carbon Dioxide 28.0 Anion Gap 10 BUN 44 H Creatinine 6.35 H Estim Creat Clear Calc 13.01 Est GFR (MDRD) Af Amer 12 L Est GFR (MDRD) Non-Af 10 L BUN/Creatinine Ratio 6.9 L Glucose 60 L Calcium 9.1 Magnesium Troponin I < 0.015 03/16/19 03/16/19 03/16/19 03:35 07:06 07:06 WBC RBC Hgb Hct MCV MCH MCHC RDW Std Deviation RDW Coeff of Roberto Plt Count MPV Immature Gran % (Auto) Neut % (Auto) Lymph % (Auto) [place] % (Auto) Eos % (Auto) Baso % (Auto) Absolute Neuts (auto) Absolute Lymphs (auto) Nucleated RBC % PT INR APTT 33.8 D-Dimer Quant (PE/DVT) Sodium Potassium Chloride Carbon Dioxide Anion Gap BUN Creatinine Estim Creat Clear Calc Est GFR (MDRD) Af Amer Est GFR (MDRD) Non-Af BUN/Creatinine Ratio Glucose Calcium Magnesium 2.1 Troponin I < 0.015 03/16/19 09:00 WBC RBC Hgb Hct MCV MCH MCHC RDW Std Deviation RDW Coeff of Roberto Plt Count MPV Immature Gran % (Auto) Neut % (Auto) Lymph % (Auto) [place] % (Auto) Eos % (Auto) Baso % (Auto) Absolute Neuts (auto) Absolute Lymphs (auto) Nucleated RBC % PT INR APTT D-Dimer Quant (PE/DVT) Sodium Potassium Chloride Carbon Dioxide Anion Gap BUN Creatinine Estim Creat Clear Calc Est GFR (MDRD) Af Amer Est GFR (MDRD) Non-Af BUN/Creatinine Ratio Glucose Calcium Magnesium Troponin I < 0.015 POC Glucose 03/16/19 03/16/19 03/16/19 10:02 08:40 07:20 POC Glucose 89 95 126 H 03/16/19 06:28 POC Glucose 67 L Medical Necessity - Tobacco Use Smoking Status: Never smoker Tobacco Use: Non-smoker Assessment/Plan All Active Problems (Last Updated 03/12/19 @ 17:43 by Kayla Tamayo MD) Osteomyelitis (Acute) Chest pain (Acute) 1. Syncopal event, chest pain-troponin negative. EKG without acute changes. CTA without PE. No other acute process. Stress test and echocardiogram ordered. Currently denies chest pain. Obtain orthostatic vitals. 2. Hypoglycemia-improved. Initiated on diet, continue to monitor low glucose. 3. Chronic bilateral diabetic foot ulcerations-wound RN consult. Continue dressing changes. Continue outpatient follow-up with wound center/podiatry and vascular surgery. 4. Chronic diastolic CHF-continue home aspirin, statin, metoprolol, lisinopril, Lasix regimen. 5. End-stage renal disease on hemodialysis Monday, , Monday-follows with Dr. Gregorio, consulted. Plan for dialysis today. 6. Hypertension-continue isosorbide, Lasix, metoprolol, lisinopril. 7. Hyperlipidemia-continue statin regimen. 8. Type 2 diabetes mellitus with [id number] ACHS, patient with hypoglycemia on admission. Continue home insulin regimen and monitor glucose. 9. Morbid obesity-encourage diet and lifestyle modifications. Nutrition consult. 10. GERD-continue PPI. 11. Anemia of chronic disease-stable, trend CBC. 12. SELMA-continue BiPAP nightly. DVT prophylaxis-heparin subcu This patient was seen by LATASHA West under the supervision of Dr. Velásquez. <Pamela Vleásquez - Last Filed: 03/16/19 15:10> - Physical Exam Vital Signs Temp Pulse Resp BP Pulse Ox 97.1 F L 65 16 150/65 H 99 03/16/19 08:29 03/16/19 08:29 03/16/19 08:29 03/16/19 08:29 03/16/19 08:29 Oxygen Flow Rate (L/min) 2 Oxygen Delivery Method Nasal Cannula Weight: 272 lb 0.807 oz Body Mass Index (BMI) 39.0 Finger Stick Blood Glucose 191 Laboratory Tests Past 24 Hrs 03/16/19 03/16/19 03/16/19 03:35 03:35 03:35 WBC 8.5 RBC 3.54 L Hgb 10.5 L Hct 33.7 L MCV 95.2 H MCH 29.7 MCHC 31.2 L RDW Std Deviation 46.9 H RDW Coeff of Roberto 13.4 Plt Count 265 MPV 9.8 Immature Gran % (Auto) 1.400 H Neut % (Auto) 74.5 H Lymph % (Auto) 13.1 L [place] % (Auto) 6.5 Eos % (Auto) 3.9 Baso % (Auto) 0.6 Absolute Neuts (auto) 6.3 Absolute Lymphs (auto) 1.11 Nucleated RBC % 0 PT 13.4 INR 1.0 APTT 32.6 D-Dimer Quant (PE/DVT) 0.97 H* Sodium 134 L Potassium 4.6 Chloride 96 L Carbon Dioxide 28.0 Anion Gap 10 BUN 44 H Creatinine 6.35 H Estim Creat Clear Calc 13.01 Est GFR (MDRD) Af Amer 12 L Est GFR (MDRD) Non-Af 10 L BUN/Creatinine Ratio 6.9 L Glucose 60 L Calcium 9.1 Magnesium Troponin I < 0.015 03/16/19 03/16/19 03/16/19 03:35 07:06 07:06 WBC RBC Hgb Hct MCV MCH MCHC RDW Std Deviation RDW Coeff of Roberto Plt Count MPV Immature Gran % (Auto) Neut % (Auto) Lymph % (Auto) [place] % (Auto) Eos % (Auto) Baso % (Auto) Absolute Neuts (auto) Absolute Lymphs (auto) Nucleated RBC % PT INR APTT 33.8 D-Dimer Quant (PE/DVT) Sodium Potassium Chloride Carbon Dioxide Anion Gap BUN Creatinine Estim Creat Clear Calc Est GFR (MDRD) Af Amer Est GFR (MDRD) Non-Af BUN/Creatinine Ratio Glucose Calcium Magnesium 2.1 Troponin I < 0.015 03/16/19 09:00 WBC RBC Hgb Hct MCV MCH MCHC RDW Std Deviation RDW Coeff of Roberto Plt Count MPV Immature Gran % (Auto) Neut % (Auto) Lymph % (Auto) [place] % (Auto) Eos % (Auto) Baso % (Auto) Absolute Neuts (auto) Absolute Lymphs (auto) Nucleated RBC % PT INR APTT D-Dimer Quant (PE/DVT) Sodium Potassium Chloride Carbon Dioxide Anion Gap BUN Creatinine Estim Creat Clear Calc Est GFR (MDRD) Af Amer Est GFR (MDRD) Non-Af BUN/Creatinine Ratio Glucose Calcium Magnesium Troponin I < 0.015 POC Glucose 03/16/19 03/16/19 03/16/19 10:02 08:40 07:20 POC Glucose 89 95 126 H 03/16/19 06:28 POC Glucose 67 L Assessment/Plan Patient seen by Modesta Stoddard under my supervision Patient was admitted to the ED on 03/16/2019 with a complaint of nausea and vomiting as well as lightheadedness, weakness and syncope. Patient was discharged on 03/15/2019 after he was admitted and managed for bilateral lower extremity ulcers. There was an initial concern for osteomyelitis but there was a low suspicion for active infection so he was scheduled to follow-up with vascular surgery on outpatient basis. However according to his , when he arrived home patient felt weak and gradually developed nausea and vomiting and had a syncopal event. According to his , when he was found by the EMS his blood sugar was low, in the 60s. Labs were essentially unremarkable a CTA was negative for PE. He has been managed for syncope. Patient seen and examined. He was on BiPAP and lethargic. Unable to do review of systems on account of lethargy. Labs and vitals reviewed. o/e: Vital Signs Height 5 ft 10 in Weight: 272 lb 0.807 oz Weight in Pounds 272.1 lbs Pulse Ox 99 Temperature 97.1 F Pulse Rate 65 Respiratory Rate 16 Blood Pressure 150/65 Blood Pressure Position Semi-Fowlers General: No apparent distress, Lethargic HEENT: Atraumatic, PERRLA, EOMI, Normocephalic Oral: Moist Mucosa Neck: Supple, No JVD, Negative Carotid Bruits Lungs: Clear to auscultation, no wheezes or crackles Cardiovascular: Regular rate, Regular Rhythm, Normal S1, Normal S2, No murmurs Abdomen: Bowel Sounds Present, Soft, Non Tender, Non-Distended Extremities: No clubbing, No cyanosis, No edema, Capillary Refill Less than 3 Seconds Skin: No rashes, No breakdown, - - Chronic diabetic bilateral foot ulcerations. Musculoskeletal: No Tenderness to Palpation of Joints or Extremities Neurological: Cranial nerves II-XII grossly intact, Neuro grossly intact Psych/Mental Status: Flat Affect Plan is to get a stress test and a 2D echo. Hypoglycemia has resolved. Wound care on board. Nephrology consulted for dialysis as his regular dialysis is Monday and Saturdays. Rest of management as per LATASHA West's notes which I reviewed and endorsed. Code Visit OBSV E&M: 15670 Subsequent observation care L2
[2019-03-16] MEDS: SEVELAMER CARBONATE 800 MG TABLET PO (13:49)
[2019-03-16] MEDS: Heparin Injection (Vial) 5,000 UNIT/ML VIAL 5000 UNIT SC ×2 (13:49→22:20)
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
--- NOTE | 2019-03-16 17:28 | PN.RENAL_ITS ---
Patient Problems: Active and Suspected Problems (Last Updated 03/12/19 @ 17:43 by Kayla Tamayo MD) Chest pain (Acute) Subjective: Currently receiving dialysis. He was just discharged from the hospital less than 24 hours ago now readmitted for 4 near syncope, confusion, chest pain and shortness of breath. His at bedside states that he was wearing his BiPAP mask last night at home. He did not have a glucose drip to check his sugar at home. He was hypoglycemic in the hospital when he was on Levemir and U5 100. He was instructed to use one or the other prior to discharge. It is unclear what he did at home. There is a history of noncompliance with his medications and confusion with what he takes at home. He is somnolent but arousable and oriented x3. - Physical Exam General: Oriented x3, - Lungs: Clear to auscultation Cardiovascular: Regular rate Abdomen: Bowel Sounds Present, Soft, Non Tender, Non-Distended, Obese Extremities: Edema - Trace Skin: - - Callus wounds on the base of his feet Musculoskeletal: No Muscle Wasting Psych/Mental Status: - - Somnolent, Alert and oriented to time, place, person, mood and affect Vital Signs Temp Pulse Resp BP Pulse Ox 97.1 F L 65 16 150/65 H 99 03/16/19 08:29 03/16/19 08:29 03/16/19 08:29 03/16/19 08:29 03/16/19 08:29 Oxygen Flow Rate (L/min) 2 Oxygen Delivery Method Nasal Cannula Weight: 123.4 kg Body Mass Index (BMI) 39.0 Finger Stick Blood Glucose 191 Laboratory Tests Past 24 Hrs 03/16/19 03/16/19 03/16/19 03:35 03:35 03:35 WBC 8.5 RBC 3.54 L Hgb 10.5 L Hct 33.7 L MCV 95.2 H MCH 29.7 MCHC 31.2 L RDW Std Deviation 46.9 H RDW Coeff of Roberto 13.4 Plt Count 265 MPV 9.8 Immature Gran % (Auto) 1.400 H Neut % (Auto) 74.5 H Lymph % (Auto) 13.1 L [place] % (Auto) 6.5 Eos % (Auto) 3.9 Baso % (Auto) 0.6 Absolute Neuts (auto) 6.3 Absolute Lymphs (auto) 1.11 Nucleated RBC % 0 PT 13.4 INR 1.0 APTT 32.6 D-Dimer Quant (PE/DVT) 0.97 H* Sodium 134 L Potassium 4.6 Chloride 96 L Carbon Dioxide 28.0 Anion Gap 10 BUN 44 H Creatinine 6.35 H Estim Creat Clear Calc 13.01 Est GFR (MDRD) Af Amer 12 L Est GFR (MDRD) Non-Af 10 L BUN/Creatinine Ratio 6.9 L Glucose 60 L Calcium 9.1 Magnesium Troponin I < 0.015 03/16/19 03/16/19 03/16/19 03:35 07:06 07:06 WBC RBC Hgb Hct MCV MCH MCHC RDW Std Deviation RDW Coeff of Roberto Plt Count MPV Immature Gran % (Auto) Neut % (Auto) Lymph % (Auto) [place] % (Auto) Eos % (Auto) Baso % (Auto) Absolute Neuts (auto) Absolute Lymphs (auto) Nucleated RBC % PT INR APTT 33.8 D-Dimer Quant (PE/DVT) Sodium Potassium Chloride Carbon Dioxide Anion Gap BUN Creatinine Estim Creat Clear Calc Est GFR (MDRD) Af Amer Est GFR (MDRD) Non-Af BUN/Creatinine Ratio Glucose Calcium Magnesium 2.1 Troponin I < 0.015 03/16/19 09:00 WBC RBC Hgb Hct MCV MCH MCHC RDW Std Deviation RDW Coeff of Roberto Plt Count MPV Immature Gran % (Auto) Neut % (Auto) Lymph % (Auto) [place] % (Auto) Eos % (Auto) Baso % (Auto) Absolute Neuts (auto) Absolute Lymphs (auto) Nucleated RBC % PT INR APTT D-Dimer Quant (PE/DVT) Sodium Potassium Chloride Carbon Dioxide Anion Gap BUN Creatinine Estim Creat Clear Calc Est GFR (MDRD) Af Amer Est GFR (MDRD) Non-Af BUN/Creatinine Ratio Glucose Calcium Magnesium Troponin I < 0.015 POC Glucose 03/16/19 03/16/19 03/16/19 10:02 08:40 07:20 POC Glucose 89 95 126 H 03/16/19 06:28 POC Glucose 67 L Clinical Impression(s) from Imaging Studies Chest X-Ray 03/16/19 03:27 IMPRESSION: Cardia megaly and compression of the basilar parenchyma. No pulmonary edema, congestive heart failure or confluent pneumonia. Electronically Signed: Cindy Bhat MD at 4:17 EDT , Service support , Chest CTA 03/16/19 03:59 IMPRESSION: No demonstrated pulmonary embolism, aneurysm, leak or arterial dissection. Coronary megaly, nonspecific compression of dependent parenchyma with extremely low lung volume. No pulmonary edema, congestive heart failure or confluent pneumonia. 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 Atherosclerosis of the upper abdominal aorta and small vessels. Incompletely imaged liver and spleen appear enlarged. Electronically Signed: Cindy Bhat MD at 5:51 EDT , Service support , Medical Necessity - Tobacco Use Smoking Status: Never smoker Tobacco Use: Non-smoker Assessment/Plan All Active Problems (Last Updated 03/12/19 @ 17:43 by Kayla Tamayo MD) Osteomyelitis (Acute) Chest pain (Acute) 1. ESRD hemodialysis today and Monday, , Monday. Currently receiving hemodialysis without incident. Okay from renal standpoint for discharge. 2. Chest pain shortness of breath fluid removal 4 L as tolerated on dialysis. History noncompliance with fluid gains. Patient states that he has not had any thing to drinks since discharge from the hospital. But scale states that he is 6 kg over his target weight. Troponin unremarkable x1. 3. Hypertension with stable blood pressure 4. Diabetes mellitus type 1 with reported history of low sugars. Currently blood sugar stable. 5. Anemia hemoglobin stable.
[2019-03-16 17:50] LABS: Bedside Glucose 94 mg/dL (70-110)
[2019-03-16 18:06] LABS: Bedside Glucose 122 mg/dL (70-110)
[2019-03-16] MEDS: Collagenase 30gm Tube 1 APPLIC TOPICAL (18:50)
[2019-03-16 21:45] LABS: Bedside Glucose 118 mg/dL (70-110)
[2019-03-16] MEDS: Menthol/Lanolin/Calamine/Znox 113 GM Tube 1 APPLIC TOPICAL (22:19)
[2019-03-16] MEDS: Gabapentin 300 MG Capsule PO (22:20)
[2019-03-16] MEDS: Atorvastatin Calcium 20 MG Tablet PO (22:22)
[2019-03-16] MEDS: 0.9% NaCl Peripheral Flush Adult/Peds IV (22:28)
--- NOTE | 2019-03-16 22:50 | NURSING ---
Vital signs late due to patient receiving dialysis and heel caser getting VS.
[2019-03-17] VITALS (16 sets, daily range): BP systolic 120–149; BP diastolic 55–65; PULSE 63–74; RESP 12–18; TEMP 36.4–37.2; O2SAT 97–100
[2019-03-17] MEDS: Acetaminophen 325 MG Tablet 650 MG PO (01:29)
--- NOTE | 2019-03-17 05:55 | EKG12_ITS ---
Test Reason : AM EKG Blood Pressure : / mmHG Vent. Rate : 067 BPM Atrial Rate : 067 BPM P-R Int : 142 ms QRS Dur : 086 ms QT Int : 426 ms P-R-T Axes : 008 003 152 degrees QTc Int : 450 ms Normal sinus rhythm Nonspecific T wave abnormality Abnormal ECG When compared with ECG of 16-MAR-2019 03:31, MANUAL COMPARISON REQUIRED, DATA IS UNCONFIRMED Confirmed by HOUSTON LOMELI, CANDIE ([id number]), school photograph editor DEREK KEARNS ([id number]) on 03/19/2019 12:22:42 PM Referred By: YAIMA Confirmed By:CANDIE CONRAD MD
[2019-03-17 06:09] LABS: Absolute Lymphocyte Count 0.66 X10^3/uL (0.83-4.51); Absolute Neutrophil Count 3.3 X10^3/uL (2.0-7.7); Basophil# 0.03 X10^3/uL; Basophil% 0.6 % (0-1); Eosinophil# 0.25 X10^3/uL; Eosinophils% 4.7 % (0-5); Hematocrit 32.1 % (40-54); Hemoglobin 9.8 g/dL (13.0-16.5); Lymphocyte # 0.66 X10^3/ul (4.0); Lymphocyte % 12.5 % (19-41); Mean Corp Hgb Conc 30.5 g/dL (32-36); Mean Corpuscular Hgb 29.4 pg (27.0-32.0); Mean Corpuscular Volume 96.4 fL (80-94); Mean Platelet Vol. 9.7 fl (6.2-12.0); NRBC Flagged by Analyzer 0 % (0-5); Neutrophil # 3.34 X10^3/uL (2.7-7.7); Neutrophil % 63.1 % (47-70); POSITIVE MORPHOLOGY YES; Platelet Count 207 K/mm3 (150-450); RBC Distribution Width CV 13.7 % (11.6-14.6); RBC Distribution Width SD 48.4 fl (35.1-43.9); Red Blood Count 3.33 M/mm3 (4.6-6.2); White Blood Count 5.3 K/mm3 (4.4-11.0)
[2019-03-17 06:17] LABS: Differential Indicated SCAN CRITERIA MET
[2019-03-17 06:21] LABS: International Normalized Ratio 1.1; Prothrombin Time (Protime)PT. 14.2 SECONDS (11.7-14.9)
[2019-03-17 06:38] LABS: Anion Gap 7 (5-15); BUN 26 mg/dL (7-18); BUN/Creat Ratio 5.6 RATIO (10-20); Calcium,Total 7.5 mg/dL (8.5-10.1); Chloride 97 mmol/L (98-107); Cholesterol 105 mg/dL (200); Creatinine, Serum 4.61 mg/dL (0.70-1.30); EST Glomerular Filtration Rate 14 mL/min (>60); Est Glom Filt Rate - Afr Amer 17 mL/min (>60); Estimated Creatinine Clearance 19.79 ml/min; Glucose 170 mg/dL (74-106); High Density Lipoprotein 25 mg/dL; Potassium 4.3 mmol/L (3.5-5.1); Sodium Level 134 mmol/L (136-145); Triglycerides 272 mg/dL; Very Low Density Lipoprotein 54 mg/dL (5-40)
[2019-03-17] MEDS: Menthol/Lanolin/Calamine/Znox 113 GM Tube 1 APPLIC TOPICAL ×3 (06:46→21:33)
[2019-03-17 06:51] LABS: Bedside Glucose 148 mg/dL (70-110)
[2019-03-17] MEDS: Furosemide 40 MG Tablet PO ×2 (08:45→17:06)
[2019-03-17] MEDS: Isosorbide Mononitrate 30 MG Tablet PO (08:45)
[2019-03-17] MEDS: SEVELAMER CARBONATE 800 MG TABLET PO (08:45)
[2019-03-17] MEDS: Aspirin E.C. 81 MG Tablet PO (08:45)
[2019-03-17] MEDS: Gabapentin 300 MG Capsule PO ×2 (08:46→21:34)
[2019-03-17] MEDS: Metoprolol Tartrate 50 MG Tablet PO ×2 (08:46→21:34)
[2019-03-17] MEDS: Lisinopril 40 MG Tablet PO (08:46)
[2019-03-17] MEDS: Folic Acid/Vitamin B Comp W-C 1 Capsule 1 CAP PO (08:46)
[2019-03-17] MEDS: Pantoprazole Sodium 40 MG Tablet PO (08:47)
[2019-03-17] MEDS: Pyridoxine HCl 100 MG Tablet PO (08:47)
[2019-03-17] MEDS: Calcitriol 0.25 MCG Capsule 0.5 MCG PO (08:47)
[2019-03-17] MEDS: Collagenase 30gm Tube 1 APPLIC TOPICAL (08:48)
[2019-03-17] MEDS: Fluticasone 0.05% 1 SPRAY NASAL.SRY NASAL (08:49)
[2019-03-17] MEDS: Heparin Injection (Vial) 5,000 UNIT/ML VIAL 5000 UNIT SC ×2 (08:49→21:33)
[2019-03-17] MEDS: HYDROcodone Bitartrate/Apap 5/325 Tablet PO ×3 (09:01→21:39)
[2019-03-17] MEDS: Insulin Lispro 100 UNIT/ML INSULN.PEN 15 UNIT SC ×2 (12:17→17:07)
[2019-03-17] MEDS: SEVELAMER CARBONATE 800 MG TABLET 2400 MG PO ×2 (12:19→17:08)
[2019-03-17] MEDS: Insulin Lispro 100 UNIT/ML INSULN.PEN SC ×2 (12:19→17:07)
[2019-03-17 12:26] LABS: Bedside Glucose 190 mg/dL (70-110)
--- NOTE | 2019-03-17 12:36 | PN_ITS ---
<Modesta Stoddard - Last Filed: 03/17/19 12:58> Subjective: Patient seen and examined. More alert today. Denies chest pain. Denies shortness of breath. Complains of right foot pain. - Physical Exam General: Alert, Oriented x3, Cooperative HEENT: Atraumatic, PERRLA, EOMI, Normocephalic Neck: Supple, No JVD, Negative Carotid Bruits Lungs: Clear to auscultation, Diminished Cardiovascular: Regular rate, Regular Rhythm, Normal S1, Normal S2, No murmurs Abdomen: Bowel Sounds Present, Soft, Non Tender, Non-Distended, Obese Extremities: No clubbing, No cyanosis, No edema, Capillary Refill Less than 3 Seconds Skin: - - Chronic diabetic bilateral foot ulcerations. Dressing intact. Musculoskeletal: No Tenderness to Palpation of Joints or Extremities Neurological: Cranial nerves II-XII grossly intact, Neuro grossly intact Psych/Mental Status: Flat Affect Vital Signs Temp Pulse Resp BP Pulse Ox 97.9 F 63 16 134/63 H 98 03/17/19 09:56 03/17/19 11:00 03/17/19 09:56 03/17/19 09:56 03/17/19 09:56 Oxygen Flow Rate (L/min) 2 Oxygen Delivery Method Nasal Cannula Weight: 261 lb 11.019 oz Body Mass Index (BMI) 39.0 Finger Stick Blood Glucose 191 Intake and Output for Last 24 Hours 03/15/19 03/16/19 03/17/19 23:59 23:59 23:59 Intake Total 840 / 840 Output Total 4000 / 4000 Balance -3160 / -3160 Laboratory Tests Past 24 Hrs 03/17/19 03/17/19 03/17/19 05:20 05:20 05:20 WBC 5.3 RBC 3.33 L Hgb 9.8 L Hct 32.1 L MCV 96.4 H MCH 29.4 MCHC 30.5 L RDW Std Deviation 48.4 H RDW Coeff of Roberto 13.7 Plt Count 207 MPV 9.7 Immature Gran % (Auto) 2.100 H Neut % (Auto) 63.1 Lymph % (Auto) 12.5 L [place] % (Auto) 17.0 H Eos % (Auto) 4.7 Baso % (Auto) 0.6 Absolute Neuts (auto) 3.3 Absolute Lymphs (auto) 0.66 L Nucleated RBC % 0 PT 14.2 INR 1.1 Sodium 134 L Potassium 4.3 Chloride 97 L Carbon Dioxide 30.0 Anion Gap 7 BUN 26 H Creatinine 4.61 H Estim Creat Clear Calc 19.79 Est GFR (MDRD) Af Amer 17 L Est GFR (MDRD) Non-Af 14 L BUN/Creatinine Ratio 5.6 L Glucose 170 H Calcium 7.5 L Triglycerides 272 H Cholesterol 105 LDL Cholesterol 26 VLDL Cholesterol 54 H HDL Cholesterol 25 L POC Glucose 03/17/19 03/17/19 03/16/19 12:16 06:46 21:10 POC Glucose 190 H 148 H 118 H 03/16/19 03/16/19 17:59 11:25 POC Glucose 122 H 94 Medical Necessity - Tobacco Use Smoking Status: Never smoker Tobacco Use: Non-smoker Assessment/Plan All Active Problems (Last Updated 03/12/19 @ 17:43 by Kayla Tamayo MD) Osteomyelitis (Acute) Chest pain (Resolved) 1. Syncopal event, chest pain-troponin negative. EKG without acute changes. CTA without PE. No other acute process. Stress test ordered. Currently denies chest pain. Echo with EF 60%, stage 2 diastolic dysfunction. Orthostatic vitals ordered, pending. 2. Hypoglycemia-resolved. 3. Chronic bilateral diabetic foot ulcerations-wound RN consult. Continue dressing changes. Continue outpatient follow-up with wound center/podiatry and vascular surgery. 4. Chronic diastolic CHF-continue home aspirin, statin, metoprolol, lisinopril, Lasix regimen. 5. End-stage renal disease on hemodialysis Monday, , Monday-follows with Dr. Gregorio, consulted. 6. Hypertension-continue isosorbide, Lasix, metoprolol, lisinopril. 7. Hyperlipidemia-continue statin regimen. 8. Type 2 diabetes mellitus with rmexdzyzbn-Zepa-Nvgop ACHS, patient with hypoglycemia on admission. Continue home insulin regimen and monitor glucose. 9. Morbid obesity-encourage diet and lifestyle modifications. Nutrition consult. 10. GERD-continue PPI. 11. Anemia of chronic disease-stable, trend CBC. 12. SELMA-continue BiPAP nightly. DVT prophylaxis-heparin subcu Discharge planning: Home with vs SNF? Family requesting placement, patient agreeable. PT/OT ordered. This patient was seen by LATASHA West under the supervision of Dr. Velásquez. <ElijahavaPamela - Last Filed: 03/17/19 15:16> - Physical Exam Vital Signs Temp Pulse Resp BP Pulse Ox 97.9 F 63 16 134/63 H 98 03/17/19 09:56 03/17/19 11:00 03/17/19 09:56 03/17/19 09:56 03/17/19 09:56 Oxygen Flow Rate (L/min) 2 Oxygen Delivery Method Nasal Cannula Weight: 261 lb 11.019 oz Body Mass Index (BMI) 39.0 Finger Stick Blood Glucose 191 Intake and Output for Last 24 Hours 03/15/19 03/16/19 03/17/19 23:59 23:59 23:59 Intake Total 840 / 840 Output Total 4000 / 4000 Balance -3160 / -3160 Laboratory Tests Past 24 Hrs 03/17/19 03/17/19 03/17/19 05:20 05:20 05:20 WBC 5.3 RBC 3.33 L Hgb 9.8 L Hct 32.1 L MCV 96.4 H MCH 29.4 MCHC 30.5 L RDW Std Deviation 48.4 H RDW Coeff of Roberto 13.7 Plt Count 207 MPV 9.7 Immature Gran % (Auto) 2.100 H Neut % (Auto) 63.1 Lymph % (Auto) 12.5 L [place] % (Auto) 17.0 H Eos % (Auto) 4.7 Baso % (Auto) 0.6 Absolute Neuts (auto) 3.3 Absolute Lymphs (auto) 0.66 L Nucleated RBC % 0 PT 14.2 INR 1.1 Sodium 134 L Potassium 4.3 Chloride 97 L Carbon Dioxide 30.0 Anion Gap 7 BUN 26 H Creatinine 4.61 H Estim Creat Clear Calc 19.79 Est GFR (MDRD) Af Amer 17 L Est GFR (MDRD) Non-Af 14 L BUN/Creatinine Ratio 5.6 L Glucose 170 H Calcium 7.5 L Phosphorus Triglycerides 272 H Cholesterol 105 LDL Cholesterol 26 VLDL Cholesterol 54 H HDL Cholesterol 25 L 03/17/19 05:20 WBC RBC Hgb Hct MCV MCH MCHC RDW Std Deviation RDW Coeff of Roberto Plt Count MPV Immature Gran % (Auto) Neut % (Auto) Lymph % (Auto) [place] % (Auto) Eos % (Auto) Baso % (Auto) Absolute Neuts (auto) Absolute Lymphs (auto) Nucleated RBC % PT INR Sodium Potassium Chloride Carbon Dioxide Anion Gap BUN Creatinine Estim Creat Clear Calc Est GFR (MDRD) Af Amer Est GFR (MDRD) Non-Af BUN/Creatinine Ratio Glucose Calcium Phosphorus 2.8 Triglycerides Cholesterol LDL Cholesterol VLDL Cholesterol HDL Cholesterol POC Glucose 03/17/19 03/17/19 03/16/19 12:16 06:46 21:10 POC Glucose 190 H 148 H 118 H 03/16/19 03/16/19 17:59 11:25 POC Glucose 122 H 94 Assessment/Plan Patient seen by Modesta Stoddard under my supervision Patient feels better today and has no complaints. He didnt have recurrence of hypoglycemia overnight. Review of systems otherwise negative. Labs and vitals reviewed. o/e: Vital Signs Height 5 ft 10 in Weight: 261 lb 11.019 oz Weight in Pounds 261.7 lbs Pulse Ox 98 Temperature 97.9 F Pulse Rate 63 Respiratory Rate 16 Blood Pressure 134/63 Blood Pressure Position Semi-Fowlers General: No apparent distress,cooperative HEENT: Atraumatic, PERRLA, EOMI, Normocephalic Oral: Moist Mucosa Neck: Supple, No JVD, Negative Carotid Bruits Lungs: Clear to auscultation, no wheezes or crackles Cardiovascular: Regular rate, Regular Rhythm, Normal S1, Normal S2, No murmurs Abdomen: Bowel Sounds Present, Soft, Non Tender, Non-Distended Extremities: No clubbing, No cyanosis, No edema, Capillary Refill Less than 3 Seconds Skin: No rashes, No breakdown, - - Chronic diabetic bilateral foot ulcerations. Musculoskeletal: No Tenderness to Palpation of Joints or Extremities Neurological: Cranial nerves II-XII grossly intact, Neuro grossly intact Psych/Mental Status: Flat Affect Plan is to get a stress test. 2D echo showed EF of 60%, with stage II diastolic dysfunction and no regional wall motion abnormalities noted. Pulmonary artery systolic pressure was 35 mmHg. Wants SNF placement. Case mangement consulted. Nephrology on board for dialysis. Rest of management as per Modesta Stoddard NP-C's notes which I reviewed and endorsed. Code Visit OBSV E&M: 58139 Subsequent observation care L2
[2019-03-17 13:35] LABS: Phosphorus 2.8 mg/dL (2.5-4.9)
[2019-03-17 17:16] LABS: Bedside Glucose 167 mg/dL (70-110)
[2019-03-17] MEDS: Atorvastatin Calcium 20 MG Tablet PO (21:34)
[2019-03-17 21:50] LABS: Bedside Glucose 115 mg/dL (70-110)
[2019-03-18] VITALS (15 sets, daily range): BP systolic 114–171; BP diastolic 48–68; PULSE 59–77; RESP 10–18; TEMP 36.6–36.8; O2SAT 95–100
--- NOTE | 2019-03-18 00:30 | NURSING ---
Patient called out requesting for his blood sugar to be checked because he felt it was dropping. This RN checked blood sugar per patient request and it resulted at 137. Informed patient and of result. Patient complained of being hot and sweating and thought that was an indicator that his sugar was getting too low. Turned down heat for patient and offered to recheck blood sugar around 0300 if it would make him feel better knowing it was okay. Patient and denied any additional needs at this time. Will continue to monitor.
[2019-03-18 01:00] LABS: Bedside Glucose 137 mg/dL (70-110)
[2019-03-18 05:07] LABS: Hematocrit 31.2 % (40-54); Hemoglobin 9.7 g/dL (13.0-16.5); Mean Corp Hgb Conc 31.1 g/dL (32-36); Mean Corpuscular Hgb 29.4 pg (27.0-32.0); Mean Corpuscular Volume 94.5 fL (80-94); Mean Platelet Vol. 9.7 fl (6.2-12.0); Platelet Count 194 K/mm3 (150-450); RBC Distribution Width CV 13.5 % (11.6-14.6); RBC Distribution Width SD 47.1 fl (35.1-43.9); White Blood Count 5.3 K/mm3 (4.4-11.0)
[2019-03-18 05:16] LABS: Prothrombin Time (Protime)PT. 13.3 SECONDS (11.7-14.9)
[2019-03-18 05:17] LABS: Partial Thromboplast Time 39.1 Seconds (24.1-36.2)
[2019-03-18 05:24] LABS: Anion Gap 10 (5-15); BUN 44 mg/dL (7-18); BUN/Creat Ratio 6.6 RATIO (10-20); Calcium,Total 7.5 mg/dL (8.5-10.1); Chloride 97 mmol/L (98-107); Creatinine, Serum 6.71 mg/dL (0.70-1.30); EST Glomerular Filtration Rate 9 mL/min (>60); Est Glom Filt Rate - Afr Amer 11 mL/min (>60); Glucose 131 mg/dL (74-106); Potassium 4.2 mmol/L (3.5-5.1); Sodium Level 135 mmol/L (136-145)
--- NOTE | 2019-03-18 05:55 | EKG12_ITS ---
Test Reason : AM EKG Blood Pressure : / mmHG Vent. Rate : 064 BPM Atrial Rate : 064 BPM P-R Int : 154 ms QRS Dur : 090 ms QT Int : 434 ms P-R-T Axes : 013 014 -39 degrees QTc Int : 447 ms Normal sinus rhythm Normal ECG When compared with ECG of 17-MAR-2019 05:15, MANUAL COMPARISON REQUIRED, DATA IS UNCONFIRMED Confirmed by HOUSTON LOMELI, CANDIE ([id number]), newspaper managing editor DEREK KEARNS ([id number]) on 03/19/2019 12:13:35 PM Referred By: YAIMA Confirmed By:CANDIE CONRAD MD
[2019-03-18] MEDS: Aspirin E.C. 81 MG Tablet PO (05:58)
[2019-03-18] MEDS: Lisinopril 20 MG Tablet PO (06:00)
[2019-03-18] MEDS: Menthol/Lanolin/Calamine/Znox 113 GM Tube 1 APPLIC TOPICAL ×2 (06:01→15:06)
[2019-03-18] MEDS: 0.9% NaCl Peripheral Flush Adult/Peds IV ×3 (06:03→22:11)
[2019-03-18 06:41] LABS: Bedside Glucose 133 mg/dL (70-110)
--- NOTE | 2019-03-18 09:44 | STRESSREP_ITS ---
Stress Test Report Pharmacologic myocardial perfusion stress test. 48 year-old man with a history of chest pain, coronary artery disease, end- stage renal disease on dialysis. Medications: Aspirin, Lipitor, metoprolol, lisinopril, Imdur. Myocardial perfusion protocol. Resting EKG demonstrates normal sinus rhythm with a rate of 68 bpm normal intervals are noted resting blood pressures 158/82 mmHg. 0.4 mg of regadenoson was infused per usual protocol followed by rapid intravenous and flush injection continuous EKG monitoring was performed. The maximum heart rate attained was 82 bpm which was 48% of maximum predicted heart rate the maximum workload was 1 metabolic equivalent. The resting blood pressures 158/82 final blood pressures 144/74. Myocardial perfusion protocol. 14.0 mCi of technetium 99m sestamibi was injected at rest. 0.4 mg of regadenoson was infused per usual protocol peak infusion 45.0 mCi of technetium 99m sestamibi was injected stress images were obtained stress and rest images were reconstructed in comparing the short axis vertical long horizontal long axis. Gated images were also obtained Perfusion SPECT analysis: Review of the stress images demonstrate normal uptake of tracer noted in all rest myocardium. The resting images similar demonstrate normal uptake of tracer noted in all areas of the myocardium. There is motion artifact noted however no obvious areas of ischemia is present. Gated SPECT analysis: The gated ejection fraction is noted to be 51%. Conclusion: Normal pharmacologic myocardial perfusion stress test. Preserved ejection fraction
--- NOTE | 2019-03-18 10:05 | CASEMGMT ---
SW was told patient and his would like patient placed in a skilled nursing. SW printed a list of SNF's that are in network with his insurance. SW went to patient's room. He was gone getting a test. SW spoke with his and she said they will do whatever the doctor is recommending. WILFREDO gave her the list and told her SW will check back. Agatha SHEETS MSW
[2019-03-18] MEDS: HYDROcodone Bitartrate/Apap 5/325 Tablet PO ×2 (10:55→21:47)
[2019-03-18] MEDS: SEVELAMER CARBONATE 800 MG TABLET 2400 MG PO ×2 (10:55→16:53)
[2019-03-18] MEDS: Collagenase 30gm Tube 1 APPLIC TOPICAL (10:56)
[2019-03-18] MEDS: Fluticasone 0.05% 1 SPRAY NASAL.SRY NASAL (10:56)
[2019-03-18] MEDS: Metoprolol Tartrate 50 MG Tablet PO ×2 (10:57→21:48)
[2019-03-18] MEDS: Calcitriol 0.25 MCG Capsule 0.5 MCG PO (10:57)
[2019-03-18] MEDS: hydrALAZINE 20 MG/ML Vial 10 MG IV (10:57)
[2019-03-18] MEDS: Isosorbide Mononitrate 30 MG Tablet PO (10:58)
[2019-03-18] MEDS: Pyridoxine HCl 100 MG Tablet PO (10:58)
[2019-03-18] MEDS: Furosemide 40 MG Tablet PO ×2 (10:58→16:53)
[2019-03-18] MEDS: Gabapentin 300 MG Capsule PO ×2 (10:58→21:48)
[2019-03-18] MEDS: Pantoprazole Sodium 40 MG Tablet PO (10:59)
[2019-03-18] MEDS: Folic Acid/Vitamin B Comp W-C 1 Capsule 1 CAP PO (10:59)
[2019-03-18] MEDS: Insulin Lispro 100 UNIT/ML INSULN.PEN 15 UNIT SC ×2 (10:59→16:53)
[2019-03-18] MEDS: Insulin Lispro 100 UNIT/ML INSULN.PEN SC ×3 (11:00→21:46)
[2019-03-18] MEDS: proMETHazine 25 MG/ML Syringe 6.25 MG IV (11:13)
[2019-03-18 11:30] LABS: Bedside Glucose 193 mg/dL (70-110)
--- NOTE | 2019-03-18 11:35 | CASEMGMT ---
SW checked back with patient and his . He did agree to go to a care home. WILFREDO told him he and his will need to decide on 3 places. WILFREDO told them SW will check back after lunch. Agatha SHEETS MSW
--- NOTE | 2019-03-18 12:06 | PCM.PROGNOTE ---
<Modesta Stoddard - Last Filed: 03/18/19 12:11> Subjective: Patient seen and examined. Underwent stress test this morning which was normal. Denies further chest pain during admission. PT recommending additional therapy. Patient agreeable to placement. - Physical Exam General: Alert, Oriented x3, Cooperative HEENT: Atraumatic, PERRLA, EOMI, Normocephalic Neck: Supple, No JVD, Negative Carotid Bruits Lungs: Clear to auscultation, Diminished Cardiovascular: Regular rate, Regular Rhythm, Normal S1, Normal S2, No murmurs Abdomen: Bowel Sounds Present, Soft, Non Tender, Non-Distended, Obese Extremities: No clubbing, No cyanosis, No edema, Capillary Refill Less than 3 Seconds Skin: - - Chronic diabetic bilateral foot ulcerations. Dressing intact. Musculoskeletal: No Tenderness to Palpation of Joints or Extremities Neurological: Cranial nerves II-XII grossly intact, Neuro grossly intact Psych/Mental Status: Flat Affect Vital Signs Temp Pulse Resp BP Pulse Ox 98.2 F 71 16 171/67 H 100 03/18/19 10:42 03/18/19 10:57 03/18/19 10:42 03/18/19 10:57 03/18/19 10:42 Oxygen Flow Rate (L/min) 2 Oxygen Delivery Method Nasal Cannula Weight: 266 lb 1.567 oz Body Mass Index (BMI) 39.0 Finger Stick Blood Glucose 191 Orthostatic Vital Signs Start: 03/17/19 19:40 Freq: q24h Status: Active Protocol: Activity Type Activity Date Activity User E-Sign Co-Sign Detail Recorded Client Recorded Date Recorded By Document 03/18/19 05:45 MAB [id number] 03/18/19 05:51 MAB 03/18/19 05:45 Orthostatic Vitals Standing -Blood Pressure (90/60-120/80) 146/59 H -Extremity Use Left Arm -Pulse Rate (60-100) 63 Sitting -Blood Pressure (90/60-120/80) 149/68 H -Extremity Use Left Arm -Pulse Rate (60-100) 63 Lying -Blood Pressure (90/60-120/80) 139/61 H -Extremity Use Left Arm -Pulse Rate (60-100) 62 Intake and Output for Last 24 Hours 03/16/19 03/17/19 03/18/19 23:59 23:59 23:59 Intake Total 1640 / 1640 200 / 200 Output Total 4000 / 4000 Balance -2360 / -2360 200 / 200 Laboratory Tests Past 24 Hrs 03/17/19 03/18/19 03/18/19 05:20 04:54 04:54 WBC 5.3 RBC 3.30 L Hgb 9.7 L Hct 31.2 L MCV 94.5 H MCH 29.4 MCHC 31.1 L RDW Std Deviation 47.1 H RDW Coeff of Roberto 13.5 Plt Count 194 MPV 9.7 PT INR APTT Sodium 135 L Potassium 4.2 Chloride 97 L Carbon Dioxide 28.0 Anion Gap 10 BUN 44 H Creatinine 6.71 H Estim Creat Clear Calc 13.60 Est GFR (MDRD) Af Amer 11 L Est GFR (MDRD) Non-Af 9 L BUN/Creatinine Ratio 6.6 L Glucose 131 H Calcium 7.5 L Phosphorus 2.8 03/18/19 04:54 WBC RBC Hgb Hct MCV MCH MCHC RDW Std Deviation RDW Coeff of Roberto Plt Count MPV PT 13.3 INR 1.0 APTT 39.1 H Sodium Potassium Chloride Carbon Dioxide Anion Gap BUN Creatinine Estim Creat Clear Calc Est GFR (MDRD) Af Amer Est GFR (MDRD) Non-Af BUN/Creatinine Ratio Glucose Calcium Phosphorus POC Glucose 03/18/19 03/18/19 03/18/19 10:52 06:33 00:29 POC Glucose 193 H 133 H 137 H 03/17/19 03/17/19 03/17/19 21:32 17:04 12:16 POC Glucose 115 H 167 H 190 H Medical Necessity - Tobacco Use Smoking Status: Never smoker Tobacco Use: Non-smoker Assessment/Plan All Active Problems (Last Updated 03/12/19 @ 17:43 by Kayla Tamayo MD) Osteomyelitis (Acute) Chest pain (Resolved) 1. Syncopal event, chest pain-ACS ruled out. Troponin negative. EKG without acute changes. CTA without PE. No other acute process. Currently denies chest pain. Echo with EF 60%, stage 2 diastolic dysfunction. Orthostatic vitals negative. Patient underwent nuclear stress test which was negative for ischemia. Gated ejection fraction 51%. 2. Hypoglycemia-resolved. 3. Chronic bilateral diabetic foot ulcerations-wound RN consult. Continue dressing changes. Continue outpatient follow-up with wound center/podiatry and vascular surgery. 4. Chronic diastolic CHF-continue home aspirin, statin, metoprolol, lisinopril, Lasix regimen. 5. End-stage renal disease on hemodialysis Monday, , Monday-follows with Dr. Gregorio, consulted. 6. Hypertension-continue isosorbide, Lasix, metoprolol, lisinopril. 7. Hyperlipidemia-continue statin regimen. 8. Type 2 diabetes mellitus with [id number]-[facility], patient with hypoglycemia on admission. Continue home insulin regimen and monitor glucose. 9. Morbid obesity-encourage diet and lifestyle modifications. Nutrition consult. 10. GERD-continue PPI. 11. Anemia of chronic disease-stable, trend CBC. 12. SELMA-continue BiPAP nightly. DVT prophylaxis-heparin subcu Discharge planning: Possible SNF pending acceptance. This patient was seen by LATASHA West under the supervision of Dr. Cruz. <Gary Cruz F - Last Filed: 03/18/19 14:58> - Physical Exam Vital Signs Temp Pulse Resp BP Pulse Ox 98.2 F 71 16 114/48 L 100 03/18/19 10:42 03/18/19 10:57 03/18/19 10:42 03/18/19 12:11 03/18/19 10:42 Oxygen Flow Rate (L/min) 2 Oxygen Delivery Method Room Air Weight: 266 lb 1.567 oz Body Mass Index (BMI) 39.0 Finger Stick Blood Glucose 191 Orthostatic Vital Signs Start: 03/17/19 19:40 Freq: q24h Status: Active Protocol: Activity Type Activity Date Activity User E-Sign Co-Sign Detail Recorded Client Recorded Date Recorded By Document 03/18/19 05:45 MAB [id number] 03/18/19 05:51 MAB 03/18/19 05:45 Orthostatic Vitals Standing -Blood Pressure (90/60-120/80) 146/59 H -Extremity Use Left Arm -Pulse Rate (60-100) 63 Sitting -Blood Pressure (90/60-120/80) 149/68 H -Extremity Use Left Arm -Pulse Rate (60-100) 63 Lying -Blood Pressure (90/60-120/80) 139/61 H -Extremity Use Left Arm -Pulse Rate (60-100) 62 Intake and Output for Last 24 Hours 03/16/19 03/17/19 03/18/19 23:59 23:59 23:59 Intake Total 1640 / 1640 200 / 200 Output Total 4000 / 4000 Balance -2360 / -2360 200 / 200 Laboratory Tests Past 24 Hrs 03/18/19 03/18/19 03/18/19 04:54 04:54 04:54 WBC 5.3 RBC 3.30 L Hgb 9.7 L Hct 31.2 L MCV 94.5 H MCH 29.4 MCHC 31.1 L RDW Std Deviation 47.1 H RDW Coeff of Roberto 13.5 Plt Count 194 MPV 9.7 PT 13.3 INR 1.0 APTT 39.1 H Sodium 135 L Potassium 4.2 Chloride 97 L Carbon Dioxide 28.0 Anion Gap 10 BUN 44 H Creatinine 6.71 H Estim Creat Clear Calc 13.60 Est GFR (MDRD) Af Amer 11 L Est GFR (MDRD) Non-Af 9 L BUN/Creatinine Ratio 6.6 L Glucose 131 H Calcium 7.5 L POC Glucose 03/18/19 03/18/19 03/18/19 10:52 06:33 00:29 POC Glucose 193 H 133 H 137 H 03/17/19 03/17/19 21:32 17:04 POC Glucose 115 H 167 H Code Visit Addendum: Dr. Cruz I personally examined the patient and reviewed the chart. I agree with the above. 48-year-old male presented with a syncopal event as well as chest pain. He had 3- troponins and a normal EKG. CTA of the chest was negative for a PE. He underwent a stress test which was unremarkable today. However he states that he still feels weak and like to go to rehab as an outpatient. Currently waiting for pre-CERT and placement. His echo was unremarkable with an EF of 60% and stage II diastolic dysfunction. He does have a history of chronic diastolic CHF as well as end-stage renal disease. He is currently on hemodialysis and will plan for discharge once a halfway is available. OBSV E&M: 45342 Subsequent observation care L2
--- NOTE | 2019-03-18 12:57 | CASEMGMT ---
SW checked back with patient and his . Patient was sleeping, but they did pick 3 facilities. 1. [facility] 2. [facility] 3. [facility]. WILFREDO explained SW will work on referrals and as soon as SW has an accepting facility SW will let them know. WILFREDO also explained he will stay here until insurance gives us an answer. WILFREDO called [facility] with referral and also faxed the referral. Agatha SHEETS MSW
--- NOTE | 2019-03-18 13:16 | CASEMGMT ---
WILFREDO called Patricia Minor at [facility] and left her a voice mail letting her know patient is in the hospital and will be going to a assisted short term if insurance approves. WILFREDO told her WILFREDO will let her know where he ends up going. Agatha SHEETS MSW
--- NOTE | 2019-03-18 13:31 | CASEMGMT ---
Case Management Progress Note: GARCIA form explained to patient and at bedside, Provided a copy, signed copy placed in patient chart. All questions addressed. Dima Flores RNCM
--- NOTE | 2019-03-18 13:34 | NURSING ---
wound photo: left foot
--- NOTE | 2019-03-18 13:36 | NURSING ---
wound photo: right foot
--- NOTE | 2019-03-18 14:04 | CASEMGMT ---
Patient has a Healthcare POA and Healthcare LW on file at [facility]. His [place] is his POA. Agatha SHEETS MSW
--- NOTE | 2019-03-18 15:50 | CASEMGMT ---
WILFREDO received a call from Zaida at [facility] and they can accept patient. She said they will provide the transportation and will not use [facility] as [facility] would have to pay for this. She will start the pre-cert. WILFREDO will notify patient and his tomorrow as SW is no longer on the unit. Plan: [facility] pending insurance approval. Agatha HAMMER
[2019-03-18 17:00] LABS: Bedside Glucose 201 mg/dL (70-110)
[2019-03-18] MEDS: Heparin Injection (Vial) 5,000 UNIT/ML VIAL 5000 UNIT SC (21:45)
[2019-03-18] MEDS: Atorvastatin Calcium 20 MG Tablet PO (21:47)
[2019-03-18] MEDS: Ondansetron 4 MG/2 ML Vial IV (22:11)
[2019-03-18 22:15] LABS: Bedside Glucose 234 mg/dL (70-110)
[2019-03-19] VITALS (13 sets, daily range): BP systolic 103–164; BP diastolic 50–69; PULSE 59–73; RESP 10–18; TEMP 36.6–36.8; O2SAT 95–98
[2019-03-19] MEDS: Menthol/Lanolin/Calamine/Znox 113 GM Tube 1 APPLIC TOPICAL ×3 (05:29→23:52)
[2019-03-19 07:51] LABS: Anion Gap 12 (5-15); BUN 57 mg/dL (7-18); BUN/Creat Ratio 6.7 RATIO (10-20); Calcium,Total 8.1 mg/dL (8.5-10.1); Chloride 92 mmol/L (98-107); Creatinine, Serum 8.52 mg/dL (0.70-1.30); EST Glomerular Filtration Rate 7 mL/min (>60); Est Glom Filt Rate - Afr Amer 9 mL/min (>60); Estimated Creatinine Clearance 10.71 ml/min; Glucose 180 mg/dL (74-106); Potassium 4.7 mmol/L (3.5-5.1); Sodium Level 130 mmol/L (136-145)
[2019-03-19] MEDS: Insulin Lispro 100 UNIT/ML INSULN.PEN 15 UNIT SC ×2 (08:00→12:31)
[2019-03-19] MEDS: Insulin Lispro 100 UNIT/ML INSULN.PEN SC ×2 (08:00→23:47)
[2019-03-19] MEDS: SEVELAMER CARBONATE 800 MG TABLET 2400 MG PO ×3 (08:02→23:38)
[2019-03-19] MEDS: Heparin Injection (Vial) 5,000 UNIT/ML VIAL 5000 UNIT SC ×2 (08:03→23:43)
[2019-03-19] MEDS: Fluticasone 0.05% 1 SPRAY NASAL.SRY NASAL (08:03)
[2019-03-19] MEDS: Aspirin E.C. 81 MG Tablet PO (08:03)
[2019-03-19] MEDS: Furosemide 40 MG Tablet PO ×2 (08:04→23:38)
[2019-03-19] MEDS: Pyridoxine HCl 100 MG Tablet PO (08:05)
[2019-03-19] MEDS: Pantoprazole Sodium 40 MG Tablet PO (08:05)
[2019-03-19] MEDS: Folic Acid/Vitamin B Comp W-C 1 Capsule 1 CAP PO (08:05)
[2019-03-19] MEDS: Calcitriol 0.25 MCG Capsule 0.5 MCG PO (08:05)
[2019-03-19] MEDS: Collagenase 30gm Tube 1 APPLIC TOPICAL (08:06)
[2019-03-19] MEDS: Gabapentin 300 MG Capsule PO ×2 (08:06→23:39)
[2019-03-19] MEDS: HYDROcodone Bitartrate/Apap 5/325 Tablet PO (08:10)
--- NOTE | 2019-03-19 08:13 | NURSING ---
Pt refused AM BP meds, states that when he gets dialysis that his BP drops and that on dialysis days he does not take his BP meds in AM
[2019-03-19 08:30] LABS: Bedside Glucose 172 mg/dL (70-110)
[2019-03-19 12:05] LABS: Bedside Glucose 90 mg/dL (70-110)
--- NOTE | 2019-03-19 13:02 | PN_ITS ---
<Felipe Stoddardssica - Last Filed: 03/19/19 13:05> Subjective: Patient seen and examined. No acute events overnight. Awaiting pre-cert to SNF. - Physical Exam General: Alert, Oriented x3, Cooperative HEENT: Atraumatic, PERRLA, EOMI, Normocephalic Neck: Supple, No JVD, Negative Carotid Bruits Lungs: Clear to auscultation, Diminished Cardiovascular: Regular rate, Regular Rhythm, Normal S1, Normal S2, No murmurs Abdomen: Bowel Sounds Present, Soft, Non Tender, Non-Distended, Obese Extremities: No clubbing, No cyanosis, No edema, Capillary Refill Less than 3 Seconds Skin: - - Chronic diabetic bilateral foot ulcerations. Dressing intact. Musculoskeletal: No Tenderness to Palpation of Joints or Extremities Neurological: Cranial nerves II-XII grossly intact, Neuro grossly intact Psych/Mental Status: Normal Affect, Appropriate Vital Signs Temp Pulse Resp BP Pulse Ox 97.9 F 63 18 158/69 H 95 03/19/19 07:55 03/19/19 07:55 03/19/19 07:55 03/19/19 07:55 03/19/19 07:55 Oxygen Flow Rate (L/min) 2 Oxygen Delivery Method Nasal Cannula Weight: 265 lb 14.04 oz Body Mass Index (BMI) 39.0 Finger Stick Blood Glucose 191 Orthostatic Vital Signs Start: 03/17/19 19:40 Freq: q24h Status: Active Protocol: Activity Type Activity Date Activity User E-Sign Co-Sign Detail Recorded Client Recorded Date Recorded By Document 03/19/19 03:54 EEA [id number] 03/19/19 03:56 EEA 03/19/19 03:54 Orthostatic Vitals Standing -Blood Pressure (90/60-120/80) 139/66 H -Extremity Use Left Arm -Pulse Rate (60-100) 62 Sitting -Blood Pressure (90/60-120/80) 122/55 H -Extremity Use Left Arm -Pulse Rate (60-100) 62 Lying -Blood Pressure (90/60-120/80) 103/57 L -Extremity Use Left Arm -Pulse Rate (60-100) 62 Intake and Output for Last 24 Hours 03/17/19 03/18/19 03/19/19 23:59 23:59 23:59 Intake Total 1640 / 1640 880 / 880 290 / 290 Output Total 4000 / 4000 Balance -2360 / -2360 880 / 880 290 / 290 Laboratory Tests Past 24 Hrs 03/19/19 05:37 Sodium 130 L Potassium 4.7 Chloride 92 L Carbon Dioxide 26.0 Anion Gap 12 BUN 57 H Creatinine 8.52 H* Estim Creat Clear Calc 10.71 Est GFR (MDRD) Af Amer 9 L Est GFR (MDRD) Non-Af 7 L BUN/Creatinine Ratio 6.7 L Glucose 180 H Calcium 8.1 L POC Glucose 03/19/19 03/19/19 03/18/19 11:31 07:55 21:44 POC Glucose 90 172 H 234 H 03/18/19 16:48 POC Glucose 201 H Medical Necessity - Tobacco Use Smoking Status: Never smoker Tobacco Use: Non-smoker Assessment/Plan All Active Problems (Last Updated 03/12/19 @ 17:43 by Kayla Tamayo MD) Chest pain (Resolved) 1. Syncopal event, chest pain-ACS ruled out. Troponin negative. EKG without acute changes. CTA without PE. No other acute process. Currently denies chest pain. Echo with EF 60%, stage 2 diastolic dysfunction. Orthostatic vitals negative. Patient underwent nuclear stress test which was negative for ischemia. Gated ejection fraction 51%. 2. Hypoglycemia-resolved. 3. Chronic bilateral diabetic foot ulcerations-wound RN consult. Continue dressing changes. Continue outpatient follow-up with wound center/podiatry and vascular surgery. 4. Chronic diastolic CHF-continue home aspirin, statin, metoprolol, lisinopril, Lasix regimen. 5. End-stage renal disease on hemodialysis Monday, , Monday-follows with Dr. Gregorio, consulted. 6. Hypertension-continue isosorbide, Lasix, metoprolol, lisinopril. 7. Hyperlipidemia-continue statin regimen. 8. Type 2 diabetes mellitus with [id number]-Xirk-Qfgao ACHS, patient with hypoglycemia on admission. Continue home insulin regimen and monitor glucose. 9. Morbid obesity-encourage diet and lifestyle modifications. Nutrition consult. 10. GERD-continue PPI. 11. Anemia of chronic disease-stable, trend CBC. 12. SELMA-continue BiPAP nightly. DVT prophylaxis-heparin subcu Discharge planning: SNF pending pre-cert. This patient was seen by LATASHA West under the supervision of Dr. Tamayo. <BelkisMarielosmariola E - Last Filed: 03/19/19 13:19> - Physical Exam Vital Signs Temp Pulse Resp BP Pulse Ox 97.9 F 63 18 158/69 H 95 03/19/19 07:55 03/19/19 07:55 03/19/19 07:55 03/19/19 07:55 03/19/19 07:55 Oxygen Flow Rate (L/min) 2 Oxygen Delivery Method Nasal Cannula Weight: 265 lb 14.04 oz Body Mass Index (BMI) 39.0 Finger Stick Blood Glucose 191 Orthostatic Vital Signs Start: 03/17/19 19:40 Freq: q24h Status: Active Protocol: Activity Type Activity Date Activity User E-Sign Co-Sign Detail Recorded Client Recorded Date Recorded By Document 03/19/19 03:54 EEA [id number] 03/19/19 03:56 EEA 03/19/19 03:54 Orthostatic Vitals Standing -Blood Pressure (90/60-120/80) 139/66 H -Extremity Use Left Arm -Pulse Rate (60-100) 62 Sitting -Blood Pressure (90/60-120/80) 122/55 H -Extremity Use Left Arm -Pulse Rate (60-100) 62 Lying -Blood Pressure (90/60-120/80) 103/57 L -Extremity Use Left Arm -Pulse Rate (60-100) 62 Intake and Output for Last 24 Hours 03/17/19 03/18/19 03/19/19 23:59 23:59 23:59 Intake Total 1640 / 1640 880 / 880 290 / 290 Output Total 4000 / 4000 Balance -2360 / -2360 880 / 880 290 / 290 Laboratory Tests Past 24 Hrs 03/19/19 05:37 Sodium 130 L Potassium 4.7 Chloride 92 L Carbon Dioxide 26.0 Anion Gap 12 BUN 57 H Creatinine 8.52 H* Estim Creat Clear Calc 10.71 Est GFR (MDRD) Af Amer 9 L Est GFR (MDRD) Non-Af 7 L BUN/Creatinine Ratio 6.7 L Glucose 180 H Calcium 8.1 L POC Glucose 03/19/19 03/19/19 03/18/19 11:31 07:55 21:44 POC Glucose 90 172 H 234 H 09/16/19 16:48 POC Glucose 201 H Assessment/Plan Hospitalist note: I am seeing this patient in conjunction with Modesta Stoddard. I independently seen and examined the patient. Progress note above, laboratory data and imaging studies reviewed and I agree with above treatment and discharge plan. Patient seen and examined today. He denies any more chest pain. Denies any new complaints. His vital signs are stable. - Physical Exam General: Alert, Oriented x3, Cooperative, No apparent distress. HEENT: Atraumatic, PERRLA, EOMI. Neck: Supple, No JVD, Negative Carotid Bruits, Trachea Midline, Thyroid Normal. Lungs: Clear to auscultation, Normal air movement, No rhonchi, No wheeze, No rales. Cardiovascular: Regular rate, Regular Rhythm, Normal S1, Normal S2, PMI Normal. Abdomen: Bowel Sounds Present, Soft, Non Tender, Non-Distended, No Hepato- splenomegaly. Extremities: No clubbing, No cyanosis,+ edema Skin: No rashes, No breakdown Neurological: Neuro grossly intact Vital Signs are stable. Assessment and plan: #1 chest pain/syncopal event: Acute coronary syndrome ruled out. EKG showed no acute ischemic changes. Troponin was negative. Patient underwent nuclear stress test that showed no evidence of stress-induced myocardial ischemia. CTA chest showed no PE or dissection. 2D echocardiogram showed stage II diastolic dysfunction, ejection fraction of 60%. Patient denies any more chest pain. His vital signs are stable. We are awaiting insurance approval for placement to long-term facility. #2 hypoglycemia: Patient is stabilized. Patient has been on Humulin insulin as well as pre-meal Humalog. #3 other chronic medical problems: Stable, continue current medications as above. This note was generated with [employer]ation software. It may contain incorrect words, spelling, and punctuation that were not noted in checking the note before signing. Code Visit OBSV E&M: 58115 Subsequent observation care L2
--- NOTE | 2019-03-19 14:08 | CASEMGMT ---
WILFREDO notified patient and his that [facility] can accept him and we are just waiting on insurance to approve. Plan: [facility] pending insurance approval. Agatha SHEETS MSW
--- NOTE | 2019-03-19 14:14 | NURSING ---
pt called out states he feels his blood sugar is low, checked with result of 55, 120ml oj given will recheck
[2019-03-19 14:46] LABS: Bedside Glucose 104 mg/dL (70-110)
[2019-03-19 14:46] LABS: Bedside Glucose 55 mg/dL (70-110)
--- NOTE | 2019-03-19 15:50 | CASEMGMT ---
WILFREDO received a phone call from Patricia Minor with [facility]. WILFREDO told her the plan is to go to [facility] if insurance approves. She just asked that WILFREDO let her know when he is discharged. Plan: [facility] pending insurance approval. Agatha SHEETS MSW
[2019-03-19 16:20] LABS: Bedside Glucose 57 mg/dL (70-110)
[2019-03-19 16:40] LABS: Bedside Glucose 58 mg/dL (70-110)
--- NOTE | 2019-03-19 16:55 | NURSING ---
Pt blood sugar checked with result of 57, 120cc oj given rechecked 58, 120cc oj given again rechecked 69. Pt now with dinner at bedside, notified of pts drop in Blood sugar, all insulin held at this time
[2019-03-19 17:01] LABS: Bedside Glucose 69 mg/dL (70-110)
--- NOTE | 2019-03-19 19:01 | PCM.PN.REN ---
Subjective: undergoing dialysis. No CP, shortness of breath. Await ECF placement. - Physical Exam General: Alert, Oriented x3 Lungs: Clear to auscultation Cardiovascular: Regular rate Extremities: Edema - mild Psych/Mental Status: Alert and oriented to time, place, person, mood and affect Vital Signs Temp Pulse Resp BP Pulse Ox 98.1 F 68 16 164/65 H 96 03/19/19 14:14 03/19/19 16:45 03/19/19 14:14 03/19/19 14:14 03/19/19 14:14 Oxygen Flow Rate (L/min) 1 Oxygen Delivery Method Nasal Cannula Weight: 120.6 kg Body Mass Index (BMI) 39.0 Finger Stick Blood Glucose 191 Orthostatic Vital Signs Start: 03/17/19 19:40 Freq: q24h Status: Active Protocol: Activity Type Activity Date Activity User E-Sign Co-Sign Detail Recorded Client Recorded Date Recorded By Document 03/19/19 03:54 EEA [id number] 03/19/19 03:56 EEA 03/19/19 03:54 Orthostatic Vitals Standing -Blood Pressure (90/60-120/80) 139/66 H -Extremity Use Left Arm -Pulse Rate (60-100) 62 Sitting -Blood Pressure (90/60-120/80) 122/55 H -Extremity Use Left Arm -Pulse Rate (60-100) 62 Lying -Blood Pressure (90/60-120/80) 103/57 L -Extremity Use Left Arm -Pulse Rate (60-100) 62 Intake and Output for Last 24 Hours 03/17/19 03/18/19 03/19/19 23:59 23:59 23:59 Intake Total 1640 / 1640 880 / 880 1090 / 1090 Output Total 4000 / 4000 Balance -2360 / -2360 880 / 880 1090 / 1090 Laboratory Tests Past 24 Hrs 03/19/19 05:37 Sodium 130 L Potassium 4.7 Chloride 92 L Carbon Dioxide 26.0 Anion Gap 12 BUN 57 H Creatinine 8.52 H* Estim Creat Clear Calc 10.71 Est GFR (MDRD) Af Amer 9 L Est GFR (MDRD) Non-Af 7 L BUN/Creatinine Ratio 6.7 L Glucose 180 H Calcium 8.1 L POC Glucose 03/19/19 03/19/19 03/19/19 16:52 16:32 16:12 POC Glucose 69 L 58 L 57 L 03/19/19 03/19/19 03/19/19 14:29 14:12 11:31 POC Glucose 104 55 L 90 03/19/19 03/18/19 07:55 21:44 POC Glucose 172 H 234 H Medical Necessity - Tobacco Use Smoking Status: Never smoker Tobacco Use: Non-smoker Assessment/Plan All Active Problems (Last Updated 03/12/19 @ 17:43 by Kayla Tamayo MD) Chest pain (Resolved) 1. ESRD hemodialysis today and Monday, , Monday. Currently receiving hemodialysis. 2. Chest pain stress test negative for ischemia 3. Hypertension with stable blood pressure 4. Anemia hemoglobin stable. 5. diabetic nephropathy, neuropathy, foot wounds 6. stop calcitriol
[2019-03-19 23:36] LABS: Bedside Glucose 165 mg/dL (70-110)
[2019-03-19] MEDS: Metoprolol Tartrate 50 MG Tablet PO (23:39)
[2019-03-19] MEDS: Atorvastatin Calcium 20 MG Tablet PO (23:39)
[2019-03-20] VITALS (10 sets, daily range): BP systolic 134–166; BP diastolic 63–78; PULSE 64–76; RESP 12–17; TEMP 36.6–36.9; O2SAT 94–97
--- NOTE | 2019-03-20 00:08 | NURSING ---
Due to [employer] downtime, Ivonne the dialysis nurse wrote a hard-copy note in the paper chart. 4L was taken off during dialysis session per Ivonne.
[2019-03-20] MEDS: HYDROcodone Bitartrate/Apap 5/325 Tablet PO (05:47)
[2019-03-20] MEDS: 0.9% NaCl Peripheral Flush Adult/Peds IV ×4 (05:51→15:02)
[2019-03-20 07:08] LABS: Anion Gap 11 (5-15); BUN 27 mg/dL (7-18); BUN/Creat Ratio 5.1 RATIO (10-20); Calcium,Total 7.5 mg/dL (8.5-10.1); Chloride 93 mmol/L (98-107); Creatinine, Serum 5.34 mg/dL (0.70-1.30); EST Glomerular Filtration Rate 12 mL/min (>60); Est Glom Filt Rate - Afr Amer 15 mL/min (>60); Estimated Creatinine Clearance 17.09 ml/min; Glucose 236 mg/dL (74-106); Potassium 4.5 mmol/L (3.5-5.1); Sodium Level 132 mmol/L (136-145)
[2019-03-20] MEDS: Insulin Lispro 100 UNIT/ML INSULN.PEN SC ×2 (08:40→12:22)
[2019-03-20] MEDS: proMETHazine 25 MG/ML Syringe 6.25 MG IV ×2 (08:44→15:01)
[2019-03-20 08:56] LABS: Bedside Glucose 276 mg/dL (70-110)
[2019-03-20] MEDS: Collagenase 30gm Tube 1 APPLIC TOPICAL (10:10)
--- NOTE | 2019-03-20 10:55 | CASEMGMT ---
Addendum entered by Agatha Davsi 03/20/19 11:27: WILFREDO completed PASRR on HENS as patient is observation status. SW called [facility] and they do not have any availability. SW called [facility] and they do not have any availability. SW spoke with Zaida at [facility] and they cannot transport patient and his . SW spoke with patient and his they have a friend that gets off work at 3 that could possibly take them. Agatha SHEETS [employer]SEMBLER Original Note: WILFREDO received a call from Zaida at [facility] and patient was approved. WILFREDO notified E[employer]PLIANCE SERVICER, Modesta who will work on patient's discharge. WILFREDO also notified RN. SW went to patient's room to let patient know, however he and his were sleeping and did not wake up to WILFREDO saying hello. Await orders. Plan: d/c to [facility] under skilled level of care. Agatha SHEETS [employer] ASSEMBLER
[2019-03-20] MEDS: SEVELAMER CARBONATE 800 MG TABLET 2400 MG PO ×2 (11:02→12:22)
[2019-03-20] MEDS: Aspirin E.C. 81 MG Tablet PO (11:02)
[2019-03-20] MEDS: Folic Acid/Vitamin B Comp W-C 1 Capsule 1 CAP PO (11:02)
[2019-03-20] MEDS: Gabapentin 300 MG Capsule PO (11:03)
[2019-03-20] MEDS: Fluticasone 0.05% 1 SPRAY NASAL.SRY NASAL (11:03)
[2019-03-20] MEDS: Pantoprazole Sodium 40 MG Tablet PO (11:03)
[2019-03-20] MEDS: Lisinopril 20 MG Tablet PO (11:03)
[2019-03-20] MEDS: Pyridoxine HCl 100 MG Tablet PO (11:03)
[2019-03-20] MEDS: Isosorbide Mononitrate 30 MG Tablet PO (11:04)
[2019-03-20] MEDS: Metoprolol Tartrate 50 MG Tablet PO (11:04)
[2019-03-20] MEDS: Furosemide 40 MG Tablet PO (11:04)
--- NOTE | 2019-03-20 11:04 | PCM.EXTCARCO ---
- Diet 03/18/19 10:54 Diet: Cardiac/Low Cholesterol Is pt able to select menu?: Yes Diet Comments: Advance as tolerated - Routine Orders/Code Status Enema Type: Fleetz Enema Frequency: Daily PRN Suppository Type: Dulcolax 10mg Suppository Frequency: Daily PRN O2 Liters per Minute: 2 O2 Frequency: Continuous Keep PO Greater than or Equal to (%): 90 Routine Lab Work: CBC, BMP, - - Q Week Code Status: Full Code - Wound(s) Left Foot Wound Type: Neuropathic/Diabetic Foot Ulcer Dressing Change: santyl with dry dressing Right Foot Wound Type: Neuropathic/Diabetic Foot Ulcer Dressing Change: santyl with dry dressing - Suggestions for Active Care Change Position every (hours): 2 Times a day to sit in chair: 3 - Therapies Physical Therapy: Eval and Treat Occupational Therapy: Eval and Treat - Problem/Diagnosis (1) Peripheral vascular disease Status: Chronic Current Visit: No (2) Chest pain Status: Acute Comment: ACS ruled out Current Visit: Yes (3) Morbid obesity with BMI of 40.0-44.9, adult Status: Chronic Current Visit: No (4) Noncompliance Status: Chronic Current Visit: No (5) CHF (congestive heart failure) Status: Chronic Current Visit: No (6) End stage renal disease on dialysis Status: Chronic Current Visit: No (7) Chronic respiratory failure with hypoxia Status: Chronic Current Visit: No (8) HTN (hypertension) Status: Chronic Current Visit: No (9) Hyperlipidemia Status: Chronic Current Visit: No (10) SELMA (obstructive sleep apnea) Status: Chronic Current Visit: No (11) Type 1 diabetes mellitus Status: Chronic Current Visit: No - Allergies/Procedures Done in Hospital Allergies/Adverse Reactions: Allergies venom-honey bee [bee venom (honey bee)] Allergy (Verified 03/16/19 03:22) Swelling sulfamethoxazole [From Bactrim] Adverse Reaction (Verified 03/16/19 03:22) Upset Stomach trimethoprim [From Bactrim] Adverse Reaction (Verified 03/16/19 03:22) Upset Stomach Procedures: 2-D Echocardiogram, Stress Test - Type of Care/Length of Stay Estimated LOS: Convalescent Care Less Than 30 days Type of Care Needed: Skilled Rehab Potential: Fair Prognosis: Fair - Additional Orders/Day of Discharge Additional Orders: Daily dressing changes bilateral foot wounds. Clean with soap and water, apply Santyl nickel thickness over the wound sites and cover with gauze. Offloading wound areas. H&P will serve as current which was dated: 03/16/19 Day of Discharge: 03/20/19 - Dietary and Speech Recommendations Dietitian Recommendations/Changes: Recommend diet change to 2200 calorie controlled, cardiac, low sodium w/ fluid restriction as indicated. Recommend 1 packet Cortez BID for wound healing. - Follow Up Care Primary Care Physician: Augie Washburn MD [Primary Care Provider] - Please follow up with your Primary Care Physician in: 1 Week Please Follow Up With: Brea Bravo DPM - Wound Clinic When: 3-5 Days, call to schedule Please Follow Up With: Esteban Tuttle MD When: As scheduled 03/25/2019
[2019-03-20] MEDS: Heparin Injection (Vial) 5,000 UNIT/ML VIAL 5000 UNIT SC (11:05)
--- NOTE | 2019-03-20 11:19 | DS.PCM_ITS ---
<Modesta Stoddard - Last Filed: 03/20/19 11:25> Discharge Date and Diagnosis Date of Admission: 03/16/19 Date of Discharge: 03/20/19 - Primary Discharge Diagnosis Active and Suspected Problems (Last Updated 03/12/19 @ 17:43 by Kayla Tamayo MD) 1. Syncopal event, chest pain-ACS ruled out. 2. Hypoglycemia-resolved. 3. Chronic bilateral diabetic foot ulcerations 4. Chronic diastolic CHF 5. End-stage renal disease on hemodialysis 6. Hypertension 7. Hyperlipidemia 8. Type 1 diabetes mellitus with neuropathy 9. Morbid obesity 10. GERD 11. Anemia of chronic disease 12. SELMA 13. Chronic hypoxic respiratory failure - Secondary Discharge Diagnosis Chronic Problems (Last Updated 03/12/19 @ 17:43 by Kayla Tamayo MD) Osteomyelitis (Chronic) differential diagnosis Peripheral vascular disease (Chronic) Toe fracture, right (Chronic) Non-pressure chronic ulcer of other part of right foot with fat layer exposed (Chronic) Non-pressure chronic ulcer of other part of left foot with fat layer exposed (Chronic) Type 1 diabetes mellitus (Chronic) Morbid obesity with BMI of 40.0-44.9, adult (Chronic) Noncompliance (Chronic) CHF (congestive heart failure) (Chronic) Abnormal stress test (Chronic) TIA (transient ischemic attack) (Chronic) Pulmonary hypertension (Chronic) Morbid obesity with BMI of 40.0-44.9, adult (Chronic) End stage renal disease on dialysis (Chronic) Chronic respiratory failure with hypoxia (Chronic) HTN (hypertension) (Chronic) Hyperlipidemia (Chronic) Diabetic neuropathy (Chronic) Anemia (Chronic) SELMA (obstructive sleep apnea) (Chronic) Hospital Course and Treatment Imaging Results: Diagnostic Data Chest X-Ray 03/16/19 03:27 IMPRESSION: Cardia megaly and compression of the basilar parenchyma. No pulmonary edema, congestive heart failure or confluent pneumonia. Electronically Signed: Cindy Bhat MD at 4:17 EDT , Service support , Chest CTA 03/16/19 03:59 IMPRESSION: No demonstrated pulmonary embolism, aneurysm, leak or arterial dissection. Coronary megaly, nonspecific compression of dependent parenchyma with extremely low lung volume. No pulmonary edema, congestive heart failure or confluent pneumonia. 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 Atherosclerosis of the upper abdominal aorta and small vessels. Incompletely imaged liver and spleen appear enlarged. Electronically Signed: Cindy Bhat MD at 5:51 EDT , Service support , Consultations 03/16/19 06:52 Consult: Onc/Wound/director of web marketing Routine Comment: Dr. Gregorio, nephrology Operations: None Procedures: 2-D Echocardiogram, Dialysis, Stress test Summary of Care Provided: The patient is a 48 year old M admitted 03/16/2018 due to chest discomfort, syncope and dyspnea. 1. Syncopal event, chest pain-ACS ruled out. Troponin negative. EKG without acute changes. CTA without PE. No other acute process. Currently denies chest pain. Echo with EF 60%, stage 2 diastolic dysfunction. Orthostatic vitals negative. Patient underwent nuclear stress test which was negative for ischemia. Gated ejection fraction 51%. Follow-up with primary care provider in 1 week. 2. Hypoglycemia-resolved. 3. Chronic bilateral diabetic foot ulcerations- Continue dressing changes daily with Santyl over wound sites and cover with gauze. Continue outpatient follow- up with wound center/podiatry and vascular surgery. 4. Chronic diastolic CHF-continue home aspirin, statin, metoprolol, lisinopril, Lasix regimen. 5. End-stage renal disease on hemodialysis Monday, , Monday-follows with Dr. Gregorio. 6. Hypertension-continue isosorbide, Lasix, metoprolol, lisinopril. 7. Hyperlipidemia-continue statin regimen. 8. Type 1 diabetes mellitus with neuropathy-continue home insulin regimen. Hemoglobin A1c 03/12/19 12%. 9. Morbid obesity-encourage diet and lifestyle modifications. 10. GERD-continue PPI. 11. Anemia of chronic disease-stable, trend CBC. 12. SELMA-continue BiPAP nightly. 13. Chronic hypoxic respiratory failure-continue supplement oxygen to maintain O2 above 90%. General: Alert, Oriented x3, Cooperative HEENT: Atraumatic, PERRLA, EOMI, Normocephalic Neck: Supple, No JVD, Negative Carotid Bruits Lungs: Clear to auscultation, Diminished Cardiovascular: Regular rate, Regular Rhythm, Normal S1, Normal S2, No murmurs Abdomen: Bowel Sounds Present, Soft, Non Tender, Non-Distended, Obese Extremities: No clubbing, No cyanosis, No edema, Capillary Refill Less than 3 Seconds Skin: - - Chronic diabetic bilateral foot ulcerations. Dressing intact. Musculoskeletal: No Tenderness to Palpation of Joints or Extremities Neurological: Cranial nerves II-XII grossly intact, Neuro grossly intact Psych/Mental Status: Normal Affect, Appropriate Patient seen and examined prior to discharge. Physical assessment as noted above. Patient is stable for discharge with follow up recommendations as noted above. This patient was seen by LATASHA West under the supervision of Dr. Tamayo. - Physical Exam Vital Signs Temp Pulse Resp BP Pulse Ox 98.3 F 73 17 141/72 H 94 03/20/19 11:00 03/20/19 11:04 03/20/19 11:00 03/20/19 11:04 03/20/19 11:00 Oxygen Flow Rate (L/min) 2 Oxygen Delivery Method Room Air Weight: 265 lb 6.985 oz Body Mass Index (BMI) 39.0 Finger Stick Blood Glucose 191 Orthostatic Vital Signs Start: 03/17/19 19:40 Freq: q24h Status: Active Protocol: Activity Type Activity Date Activity User E-Sign Co-Sign Detail Recorded Client Recorded Date Recorded By Document 03/20/19 05:23 EEA [id number] 03/20/19 05:25 EEA 03/20/19 05:23 Orthostatic Vitals Standing -Blood Pressure (90/60-120/80) 143/67 H -Extremity Use Left Arm -Pulse Rate (60-100) 70 Sitting -Blood Pressure (90/60-120/80) 166/78 H -Extremity Use Left Arm -Pulse Rate (60-100) 69 Lying -Blood Pressure (90/60-120/80) 153/64 H -Extremity Use Left Arm -Pulse Rate (60-100) 70 Intake and Output for Last 24 Hours 03/18/19 03/19/19 03/20/19 23:59 23:59 23:59 Intake Total 880 / 880 1440 / 1440 50 / 50 Output Total 4000 / 4000 0 / 0 Balance 880 / 880 -2560 / -2560 50 / 50 Laboratory Tests Past 24 Hrs 09/18/19 06:28 Sodium 132 L Potassium 4.5 Chloride 93 L Carbon Dioxide 28.0 Anion Gap 11 BUN 27 H Creatinine 5.34 H Estim Creat Clear Calc 17.09 Est GFR (MDRD) Af Amer 15 L Est GFR (MDRD) Non-Af 12 L BUN/Creatinine Ratio 5.1 L Glucose 236 H Calcium 7.5 L POC Glucose 03/20/19 03/19/19 03/19/19 08:37 23:08 16:52 POC Glucose 276 H 165 H 69 L 03/19/19 03/19/19 03/19/19 16:32 16:12 14:29 POC Glucose 58 L 57 L 104 03/19/19 03/19/19 14:12 11:31 POC Glucose 55 L 90 Home Medications: Medications to take at Discharge Atorvastatin Calcium [Lipitor] 20 mg PO QHS 10/11/17 Pyridoxine HCl [Vitamin B-6] 100 mg PO DAILY 10/11/17 Vits A,C,E/Lutein/Minerals [Ocuvite with Lutein Tablet] 1 ea PO DAILY 10/11/17 Folic Acid/Vitamin B Comp W-C [Nephrocaps, Renaphro] 1 cap PO DAILY 10/27/17 albuterol sulfate HFA 90 mcg/actuation aerosol inhaler 2 puff INHALATION Q4H PRN #18 g 02/26/18 Aspirin E.C. [Ecotrin] 81 mg PO DAILY 03/23/18 Cyclobenzaprine HCl 10 mg PO TID PRN PRN 03/23/18 Fluticasone 0.05% [Flonase Nasal [place]] 1 spray NASAL DAILY 03/23/18 Gabapentin [Neurontin] 300 mg PO BID 03/23/18 isosorbide mononitrate ER 30 mg tablet,extended release 24 hr 30 mg PO DAILY #30 tab 07/24/18 Acetaminophen [Tylenol Tablet] 650 mg PO Q6H PRN PRN tablet 09/19/18 Guaifenesin Dm [Robitussin Dm] 10 ml PO Q6H PRN PRN #1 bottle 11/21/18 Furosemide [Lasix] 40 mg PO BID 03/12/19 Metoprolol Tartrate [Lopressor (beta khoa)] 50 mg PO BID 03/12/19 Omeprazole 40 mg PO DAILY 03/12/19 proMETHazine tablet [Phenergan tablet] 25 mg PO TID PRN 09/11/19 Collagenase [Santyl] 1 applic TOPICAL DAILY tube 03/15/19 Insulin Lispro [Humalog KwikPen] 15 unit SUBCUT TIDAC insuln.pen 03/15/19 Insulin U-500 [Humulin R U-500 (BKC)] 50 units SUBCUT BIDAC pen 03/15/19 Lisinopril [Zestril] 20 mg PO DAILY tab 03/20/19 Sevelamer HCl [Renagel] 2,400 mg PO TID #0 03/20/19 Primary Care Physician: Augie Washburn MD [Primary Care Provider] - Please follow up with your Primary Care Physician in: 1 Week Please Follow Up With: Brea Bravo DPM - Wound Clinic When: 3-5 Days, call to schedule Please Follow Up With: Esteban Tuttle MD When: As scheduled 03/25/2019 Please Follow Up With: Anca Gregorio DO When: As scheduled Disposition: [facility] facility Minutes spent on discharge:: 35 Patient Condition:: Stable Medical Necessity - Tobacco Use Smoking Status: Never smoker Tobacco Use: Non-smoker Meaningful Use Info Meaningful Use Diagnoses (Choose all that apply): None applicable <Kayla Tamayo - Last Filed: 03/20/19 12:00> Discharge Date and Diagnosis - Secondary Discharge Diagnosis Chronic Problems (Last Updated 03/12/19 @ 17:43 by Kayla Tamayo MD) Osteomyelitis (Chronic) differential diagnosis Peripheral vascular disease (Chronic) Toe fracture, right (Chronic) Non-pressure chronic ulcer of other part of right foot with fat layer exposed (Chronic) Non-pressure chronic ulcer of other part of left foot with fat layer exposed (Chronic) Type 1 diabetes mellitus (Chronic) Morbid obesity with BMI of 40.0-44.9, adult (Chronic) Noncompliance (Chronic) CHF (congestive heart failure) (Chronic) Abnormal stress test (Chronic) TIA (transient ischemic attack) (Chronic) Pulmonary hypertension (Chronic) Morbid obesity with BMI of 40.0-44.9, adult (Chronic) End stage renal disease on dialysis (Chronic) Chronic respiratory failure with hypoxia (Chronic) HTN (hypertension) (Chronic) Hyperlipidemia (Chronic) Diabetic neuropathy (Chronic) Anemia (Chronic) SELMA (obstructive sleep apnea) (Chronic) Hospital Course and Treatment Consultations 03/16/19 06:52 Consult: Onc/Wound/director of web marketing Routine Comment: Summary of Care Provided: Hospitalist note: Discharge summary and physical examination above reviewed and I concur with the above treatment discharge plan. Patient was admitted for syncopal episode and chest pain. Regarding the chest pain, EKG revealed no acute ischemic changes. Troponin was negative. CTA chest showed no PE or dissection. Patient underwent nuclear stress test that was negative for stress-induced myocardial ischemia. 2D echocardiogram revealed ejection fraction 60%, stage II diastolic dysfunction. His orthostatic vitals were stable. Patient did found to have hypoglycemia which could explain his syncopal event. Blood sugar replaced and corrected. Acute coronary syndrome ruled out. Patient has been admitted frequently in the last several weeks to the hospital and he keeps coming back. Patient was seen by PT OT and recommended placement to custodial facility. Patient discharged to custodial facility in a stable medical condition, continued on his previous home medications without any changes, discharged on oxygen that he has been on before, recommended follow-up with PCP in 1 week, follow-up with wound clinic in 3 to 5 days and follow-up with general surgery as scheduled. - Physical Exam General: Alert, Oriented x3, Cooperative, No apparent distress. HEENT: Atraumatic, PERRLA, EOMI. Neck: Supple, No JVD, Negative Carotid Bruits, Trachea Midline, Thyroid Normal. Lungs: Clear to auscultation, Normal air movement, No rhonchi, No wheeze, No rales. Cardiovascular: Regular rate, Regular Rhythm, Normal S1, Normal S2, PMI Normal. Abdomen: Bowel Sounds Present, Soft, Non Tender, Non-Distended, No Hepato- splenomegaly. Extremities: No clubbing, No cyanosis,+ edema Skin: No rashes, No breakdown Neurological: Neuro grossly intact Vital Signs are stable. This note was generated with [employer] dictation software. It may contain incorrect words, spelling, and punctuation that were not noted in checking the note before signing. - Physical Exam Vital Signs Temp Pulse Resp BP Pulse Ox 98.3 F 73 17 141/72 H 94 03/20/19 11:00 03/20/19 11:04 03/20/19 11:00 03/20/19 11:04 03/20/19 11:00 Oxygen Flow Rate (L/min) 2 Oxygen Delivery Method Room Air Weight: 265 lb 6.985 oz Body Mass Index (BMI) 39.0 Finger Stick Blood Glucose 191 Orthostatic Vital Signs Start: 03/17/19 19:40 Freq: q24h Status: Active Protocol: Activity Type Activity Date Activity User E-Sign Co-Sign Detail Recorded Client Recorded Date Recorded By Document 03/20/19 05:23 EEA [id number] 03/20/19 05:25 EEA 03/20/19 05:23 Orthostatic Vitals Standing -Blood Pressure (90/60-120/80) 143/67 H -Extremity Use Left Arm -Pulse Rate (60-100) 70 Sitting -Blood Pressure (90/60-120/80) 166/78 H -Extremity Use Left Arm -Pulse Rate (60-100) 69 Lying -Blood Pressure (90/60-120/80) 153/64 H -Extremity Use Left Arm -Pulse Rate (60-100) 70 Intake and Output for Last 24 Hours 03/18/19 03/19/19 03/20/19 23:59 23:59 23:59 Intake Total 880 / 880 1440 / 1440 50 / 50 Output Total 4000 / 4000 0 / 0 Balance 880 / 880 -2560 / -2560 50 / 50 Laboratory Tests Past 24 Hrs 03/20/19 06:28 Sodium 132 L Potassium 4.5 Chloride 93 L Carbon Dioxide 28.0 Anion Gap 11 BUN 27 H Creatinine 5.34 H Estim Creat Clear Calc 17.09 Est GFR (MDRD) Af Amer 15 L Est GFR (MDRD) Non-Af 12 L BUN/Creatinine Ratio 5.1 L Glucose 236 H Calcium 7.5 L POC Glucose 03/20/19 03/19/19 03/19/19 08:37 23:08 16:52 POC Glucose 276 H 165 H 69 L 03/19/19 03/19/19 03/19/19 16:32 16:12 14:29 POC Glucose 58 L 57 L 104 03/19/19 03/19/19 14:12 11:31 POC Glucose 55 L 90 Minutes spent on discharge:: 27 Patient Condition:: Stable Meaningful Use Info Meaningful Use Diagnoses (Choose all that apply): None applicable Code Visit OBSV E&M: 69988 Observation care discharge
--- NOTE | 2019-03-20 12:17 | PHA.DC.MC ---
Pharmacy Service has performed discharge medication reconciliation and counseling for this patient. 1. HUMULIN 5 U-500 50 UNITS SC BIDAC. PATIENT'S CONFIRMS THEY HAVE A U-500 VIAL AT HOME AND DRAW UP TO THE 10 UNIT MARKING ON A U-100 SYRINGE (50 UNITS) TO INJECT SC BID. 2. PATIENT AND FAMILY MEMBER WERE ALSO COUNSELED ON SIGNS/SYMPTOMS OF HYPOGLYCEMIA AND THE APPROPRIATE CORRECTIVE MEASURES. Home Medications Atorvastatin Calcium [Lipitor] 20 mg PO QHS 10/11/17 Pyridoxine HCl [Vitamin B-6] 100 mg PO DAILY 10/11/17 Vits A,C,E/Lutein/Minerals [Ocuvite with Lutein Tablet] 1 ea PO DAILY 10/11/17 Folic Acid/Vitamin B Comp W-C [Nephrocaps, Renaphro] 1 cap PO DAILY 10/27/17 albuterol sulfate HFA 90 mcg/actuation aerosol inhaler 2 puff INHALATION Q4H PRN #18 g 02/26/18 Aspirin E.C. [Ecotrin] 81 mg PO DAILY 03/23/18 Cyclobenzaprine HCl 10 mg PO TID PRN PRN 03/23/18 Fluticasone 0.05% [Flonase Nasal [place]] 1 spray NASAL DAILY 03/23/18 Gabapentin [Neurontin] 300 mg PO BID 03/23/18 isosorbide mononitrate ER 30 mg tablet,extended release 24 hr 30 mg PO DAILY #30 tab 07/24/18 Acetaminophen [Tylenol Tablet] 650 mg PO Q6H PRN PRN tablet 09/19/18 Guaifenesin Dm [Robitussin Dm] 10 ml PO Q6H PRN PRN #1 bottle 11/21/18 Furosemide [Lasix] 40 mg PO BID 03/12/19 Metoprolol Tartrate [Lopressor (beta khoa)] 50 mg PO BID 03/12/19 Omeprazole 40 mg PO DAILY 03/12/19 proMETHazine tablet [Phenergan tablet] 25 mg PO TID PRN 03/13/19 Collagenase [Santyl] 1 applic TOPICAL DAILY tube 03/15/19 Insulin Lispro [Humalog KwikPen] 15 unit SUBCUT TIDAC insuln.pen 03/15/19 Insulin U-500 [Humulin R U-500 (BKC)] 50 units SUBCUT BIDAC pen 03/15/19 Lisinopril [Zestril] 20 mg PO DAILY tab 03/20/19 Sevelamer HCl [Renagel] 2,400 mg PO TID #0 03/20/19 The patient's discharge medication list was reviewed for discrepancies and discrepancies were resolved. The patient was counseled on the following discharge medications and changes in medications for homegoing were reviewed. The Reason for Use, instructions for use, and potential side effects were reviewed for all new medications. The patient's questions regarding all of their medications were answered. The patient and family member were able to verbally demonstrate an understanding of their discharge medications.
[2019-03-20 12:31] LABS: Bedside Glucose 216 mg/dL (70-110)
--- NOTE | 2019-03-20 14:08 | CASEMGMT ---
Patient asked if the hospital van could take him. SW checked with patient's CONFERENCE AND EVENT ORGANISER and she felt like he could get in and out of the hospital van. Patient's said as long as he has his cane and wears his surgical shoes and she is with him they will be fine. SW called the hospital van and they would have availability at 330. WILFREDO spoke with patient and his and let them know that it would be best if their friend could take them that way they could stop by their home and get his bipap. SW told them that the van can transport, but it would not be until 330p. Patient's said she will find out if their friend can transport them as soon as she can. Agatha SHEETS MSW
[2019-03-20] MEDS: Menthol/Lanolin/Calamine/Znox 113 GM Tube 1 APPLIC TOPICAL (15:06)
--- NOTE | 2019-03-20 15:28 | NURSING ---
called report to russell
--- NOTE | 2019-03-20 15:32 | CASEMGMT ---
Patient said he will need the hospital van to transport him. SW then received a call from [facility] and they asked if patient could be at the main entrance at [facility], and SW said that would be fine. WILFREDO notified RN, CORINE, patient, and his . WILFREDO called Zaida at [place] and let her know as well. Plan: d/c to [place] under skilled level of care on a PASRR as he was observation status. [facility] transported him. Agatha HAMMER
--- NOTE | 2019-03-21 10:31 | CASEMGMT ---
WILFREDO called Patricia Minor at [facility] and left her a voice mail letting her know that patient was approved and went to [facility] yesterday. WILFREDO also called [employer] [facility] [employer] and let the transportation manager know that patient went to [place] and they will be arranging transportation. WILFREDO also spoke with [place] and they were aware. [place] actually has them transporting patient on Saturdays. Agatha SHEETS MSW
== END 2019-03-20 11:10 | disposition skilled nursing facility (03) ==
LOC: ED 05:59 → PCU 06:21
PROVIDERS: Family Medicine; Internal Medicine Nephrology; Nurse Practitioner Family; Student in an Organized Health Care Education/Training Program; Admitting Provider Family Medicine; Emergency Provider Emergency Medicine; Family Provider Internal Medicine; PCP Internal Medicine; Visit Provider Hospitalist
DX: R55 Syncope and collapse (principal); R07.89 Other chest pain; N18.6 End stage renal disease; Z99.2 Dependence on renal dialysis; E10.22 Type 1 diabetes mellitus with diabetic chronic kidney disease; E78.5 Hyperlipidemia, unspecified; I13.2 Hypertensive heart and chronic kidney disease with heart failure and with stage 5 chronic kidney disease, or end stage renal disease; E66.01 Morbid (severe) obesity due to excess calories; K21.9 Gastro-esophageal reflux disease without esophagitis; G47.33 Obstructive sleep apnea (adult) (pediatric); D63.8 Anemia in other chronic diseases classified elsewhere; J96.11 Chronic respiratory failure with hypoxia; E10.40 Type 1 diabetes mellitus with diabetic neuropathy, unspecified; I27.20 Pulmonary hypertension, unspecified; I50.32 Chronic diastolic (congestive) heart failure; E10.51 Type 1 diabetes mellitus with diabetic peripheral angiopathy without gangrene; Z68.39 Body mass index [BMI] 39.0-39.9, adult; Z91.19 Patient's noncompliance with other medical treatment and regimen; Z79.899 Other long term (current) drug therapy; Z79.51 Long term (current) use of inhaled steroids; Z79.4 Long term (current) use of insulin; L97.519 Non-pressure chronic ulcer of other part of right foot with unspecified severity; E10.621 Type 1 diabetes mellitus with foot ulcer; R11.2 Nausea with vomiting, unspecified; R42 Dizziness and giddiness
CPT/HCPCS: 36415; 71045; 71275; 78452; 80048; 80061; 82962; 83735; 84100; 84484; 85025; 85027; 85379; 85610; 85730; 90937; 93005; 93017; 93306; 94002; 94003; 97110; 97116; 97162; 97166; 97530; 97803; 99218; 99285; A9500; Q9957; Q9967; A4216; C8929; G0257; G0378; J2405; J2785

== ENCOUNTER 2019-03-25 06:50 | Day surgery (SDC) | payer MEDICARE, SELFPAY ==
[2019-03-16 06:53] VITALS: BMI 39.0
--- NOTE | 2019-03-25 06:55 | PCM.HP.BLA ---
Problem List (1) Peripheral vascular disease Status: Chronic History and Physical Date of Admission: 03/25/19 [facility] Medical Records Department [address] [place] [address] Consultation MR#: [id number] 03/14/19 1548 Acct: [id number] Name: JUSTICE GREGORIO Regina Piper. Rep #: [id number] : 1970 48 From: Esteban Tuttle MD PCP: Augie Washburn MD Status: DIS IN Y Location: [place]3 [id number] Problem List (1) Peripheral vascular disease Status: Suspected Reason for Consult Date of Consultation: 03/14/19 History of Present Illness: The patient is a 48 year old M with right foot wound that is undergone debridement per Dr. Bravo. She is requested surgical consultation for evaluation of vascular supply and a written copy of my surgical consult recommendations will be referred to her in the electronic medical record. This is a 48-year-old gentleman. He was admitted to the [facility] on March 12, 2019. He has multiple medical problems.He claims that he has been a type I diabetic for 20 years. He has been dramatically out of control for most of this time. He presents with concerns about osteomyelitis type 1 diabetes morbid obesity greater than BMI of 40 medical noncompliance, history of congestive heart failure ,TIA ,pulmonary hypertension, end-stage renal disease on chronic hemodialysis area the patient reminds me that I was scheduled to place a fistula in him but his hemoglobin A1c was significantly greater than 10. I recommended to him compliance and instead his physician referred him to another surgeon for fistula creation. In addition he has hypertension, hyperlipidemia ,diabetic neuropathy, chronic anemia, obstructive sleep apnea. He states he is not able to feel his feet. A foot x-ray that was obtained on March 12 suggested findings suggestive of osteomyelitis of the base the proximal phalanx of the fourth and fifth toes the right foot. There was soft tissue swelling. Cultures have shown mixed gram-positive organisms. He is being treated with collagenase Santyl topically as well as IV Zosyn and vancomycin [facility] [address] [place] [address] Lower Ext Art Exam w/o Exercis 03/13/19 1417 MR#: [id number] Acct: [id number] Name: JUSTICE GREGORIO Jr. Rep #: [id number] : 1970 48 From: Esteban Tuttle MD Attending Dr: Dharmesh Marie MD Status: ADM IN Ordering Dr: Kayla Tamayo MD Date: 03/12/19 Location: MS3 Sex: M C Admitted: 03/12/19 1 [facility] Medical Records Department Consultation MR#: [id number] Acct: [id number] Name: JUSTICE GREGORIO Jr. Rep #: [id number] : 1970 48 From : Esteban Tuttle MD PCP: Augie Washburn MD Status: DIS IN Reason For Study: Nonhealing lt foot ulcer, Rt foot osteomyelitis Procedure A bilateral lower extremity continuous wave Doppler with analog waveform analysis,segmental pressures,and ankle brachial indexes without exercise. Left Segmental Pressures Left brachial= 146mmHg. Left posterior tibial artery = >254mmHg. Left dorsalis pedis artery = >254mmHg. Left digit = 54 mmHg. The left dorsalis pedis waveforms are biphasic. The left posterior tibial artery waveforms are biphasic. Right Segmental Pressures Right posterior tibial artery = >254mmHg. Right dorsalis pedis artery = >254mmHg. Right digit = 64 mmHg. The right dorsalis pedis waveforms are biphasic. The right posterior tibial artery waveforms are biphasic. Indices The right ankle brachial index by the dorsalis pedis is NC. The right ankle brachial index by the posterior tibial artery is NC. The right digital-brachial index is 0.44. The left ankle brachial index by the dorsalis pedis is NC. The left ankle brachial index by the posterior tibial artery is NC. The left digital-brachial index is 0.37. Interpretation Summary Abnormal bilateral lower extremity arterial exam with non-compressible vessels making interpretation difficult. Abnormal digital indices would suggest severe or multi level disease bilaterally Lack of amplification of bilateral superficial femoral arteries suggest femoral popliteal occlusive disease bilaterally. Right brachial pressure is noted to be unable to be obtained. Ordering Physician: Kayla Tamayo Referring Physician: Augie Washburn M.D. Performed By: Ade Fox RVT 03/13/191752 Date Esteban Tuttle MD CC: Kayla Tamayo; Dharmesh Marie MD; Augie Washburn MD ~ Date Dictated: 03/13/19 141 Date Transcribed: 03/13/191752 [employer]: Signed 2 [facility] Medical Records Department Consultation MR#: [id number] Acct: [id number] Name: JUSTICE GREGORIO Regina Piper. Rep #: [id number] : 1970 48 From : Esteban Tuttle MD PCP: Augie Washburn MD Status: DIS IN Past Medical History Past Medical History (Chronic Problems): Chronic Problems (Last Updated 03/12/19 @ 17:43 by Kayla Tamayo MD) Toe fracture, right (Chronic) Non-pressure chronic ulcer of other part of right foot with fat layer exposed (Chronic) Non-pressure chronic ulcer of other part of left foot with fat layer exposed (Chronic) Type 1 diabetes mellitus (Chronic) Morbid obesity with BMI of 40.0-44.9, adult (Chronic) Noncompliance (Chronic) CHF (congestive heart failure) (Chronic) Abnormal stress test (Chronic) TIA (transient ischemic attack) (Chronic) Pulmonary hypertension (Chronic) Morbid obesity with BMI of 40.0-44.9, adult (Chronic) End stage renal disease on dialysis (Chronic) Chronic respiratory failure with hypoxia (Chronic) HTN (hypertension) (Chronic) Hyperlipidemia (Chronic) Diabetic neuropathy (Chronic) Anemia (Chronic) SELMA (obstructive sleep apnea) (Chronic) Medical History: Medical History (Last Updated 03/12/19 @ 17:43 by Kayla Tamayo MD) Chronic respiratory failure with hypoxia (Chronic) J96.11 HTN (hypertension) (Chronic) I10 Hyperlipidemia (Chronic) E78.5 Diabetic neuropathy (Chronic) E11.40 Anemia (Chronic) D64.9 SELMA (obstructive sleep apnea) (Chronic) G47.33 ESRD (end stage renal disease) on dialysis N18.6, Z99.2 cataract surgery, l eye Hypotension I95.9 Morbid obesity E66.01 Type 2 diabetes mellitus with other diabetic kidney complication E11.29 dx : age 16 last exacerbation : dka : never hypoglycemic episode : 2012 08 [facility] Medical Records Department Consultation MR#: [id number] Acct: [id number] Name: JUSTICE GREGORIO Jr. Rep #: [id number] : 1970 48 From : Estbean Tuttle MD PCP: Augie Washburn MD Status: DIS IN er visit : 2012 Allergies venom-honey bee [bee venom (honey bee)] Allergy (Verified 02/19/19 16:33) Swelling sulfamethoxazole [From Bactrim] Adverse Reaction (Verified 02/19/19 16:33) Upset Stomach trimethoprim [From Bactrim] Adverse Reaction (Verified 02/19/19 16:33) Upset Stomach Home Medications: Ambulatory Orders Medication Instructions Recorded Atorvastatin Calcium [Lipitor] 20 mg PO QHS 10/11/17 Lisinopril [Zestril] 10 mg PO DAILY 10/11/17 Pyridoxine HCl [Vitamin B-6] 100 mg PO DAILY 10/11/17 Sevelamer HCl [Renagel] 800 mg PO TID 10/11/17 Vits A,C,E/Lutein/Minerals 1 ea PO DAILY 10/11/17 [Ocuvite with Lutein Tablet] Folic Acid/Vitamin B Comp W-C 1 cap PO DAILY 10/27/17 [Nephrocaps, Renaphro] albuterol sulfate HFA 90 2 puff INHALATION Q4H PRN #18 g 02/26/18 mcg/actuation aerosol inhaler Aspirin E.C. [Ecotrin] 81 mg PO DAILY 03/23/18 Cyclobenzaprine HCl 10 mg PO TID PRN PRN 03/23/18 Fluticasone 0.05% [Flonase Nasal 1 spray NASAL DAILY 03/23/18 [place]] Gabapentin [Neurontin] 300 mg PO BID 03/23/18 Calcitriol [Rocaltrol] 0.5 mcg PO DAILY 04/17/18 isosorbide mononitrate ER 30 mg 30 mg PO DAILY #30 tab 07/24/18 tablet,extended release 24 hr Acetaminophen [Tylenol Tablet] 650 mg PO Q6H PRN PRN tablet 09/19/18 Guaifenesin Dm [Robitussin Dm] 10 ml PO Q6H PRN PRN #1 bottle 11/21/18 Ciprofloxacin HCl 500 mg PO BID 03/12/19 Furosemide [Lasix] 40 mg PO BID 03/12/19 Insulin Glargine [Lantus SoloStar 20 units SUBCUT DAILY 03/12/19 Pen] Insulin U-500 [Humulin R U-500 85 units SQ BID 03/12/19 ([facility])] 4 [facility] Medical Records Department Consultation MR#: [id number] Acct: [id number] Name: JUSTICE GREGORIO Jr. Rep #: [id number] : 1970 48 From : Esteban Tuttle MD PCP: Augie Washburn MD Status: DIS IN Metoprolol Tartrate [Lopressor 50 mg PO BID 03/12/19 (beta khoa)] Omeprazole 40 mg PO DAILY 03/12/19 Sucroferric Oxyhydroxide [Velphoro] 1,000 mg PO TID 03/12/19 proMETHazine tablet [Phenergan 25 mg PO TID PRN 03/13/19 tablet] Surgical History: Surgical History (Last Reviewed 07/16/18 @ 12:34 by Claudette Cheek) S/P tonsillectomy Z90.89 dialysis fistula Rt Arm Surgical History: tonsillectomy, - - AV fistula in right arm. Psychiatric History: No pertinent psych hx Lives: Spouse/ Significant Other Smoking Status: Never smoker Tobacco Use: Non-smoker Alcohol: None Drugs: None - *Family History Maternal Family History: Family History (Last Reviewed 01/15/19 @ 01:57 by Eze Rivera MD) Mother Hypertension Heart disease Diabetes Father Hypertension Heart disease Brother Heart disease History Items: Diabetes, Heart Disease, Hypertension, Renal Disease Paternal Family History: Family History (Last Reviewed 01/15/19 @ 01:57 by Eze Rivera MD) 5 [facility] Medical Records Department Consultation MR#: [id number] Acct: [id number] Name: JUSTICE GREGORIO Jr. Rep #: [id number] : 1970 48 From : Esteban Tuttle MD PCP: Augie Washburn MD Status: DIS IN Mother Hypertension Heart disease Diabetes Father Hypertension Heart disease Brother Heart disease History Items: Cancer - liver, Diabetes, Heart Disease Review of Systems Constitutional: Denies: Anorexia Cardiovascular: Denies: Chest Pain Gastrointestinal: Denies: Abdominal Pain Musculoskeletal: Denies: Foot Pain Neurological: Reports: Balance problems Patient Problems: Active and Suspected Problems (Last Updated 03/12/19 @ 17:43 by Kayla Tamayo MD) Osteomyelitis (Acute) differential diagnosis Peripheral vascular disease (Suspected) Malnutrition (Suspected) - Physical Exam General: Alert, Cooperative, No apparent distress Oral: Moist Mucosa Lungs: Clear to auscultation Cardiovascular: Regular rate, Regular Rhythm, - - Bilateral radials are 1+. Right upper arm brachiocephalic arteriovenous fistula with pulse thrill and bruit. Bilateral femorals are 3+. Bilateral popliteals 2+. Bilateral DP and PT pulses cannot be palpable Abdomen: Soft, Non Tender Extremities: - - 2+ bilateral lower extremity infrageniculate swelling. Dressings bilateral feet Neurological: - - Loss of sensation bilateral feet Psych/Mental Status: Normal Affect Vital Signs ) [facility] Medical Records Department Consultation MR#: [id number] Acct: [id number] Name: JUSTICE GREGORIO Jr. Rep #: [id number] : 1970 48 From : Esteban Tuttle MD PCP: Augie Washburn MD Status: DIS IN I have discussed with the patient recommendations for a abdominal pelvic right lower extremity arteriogram via a retrograde left common femoral approach and I discussed the technique, benefits, risks, alternatives. Absolutely no guarantees of success have been offered. The patient is age 48 but appears far older than stated age. I do believe that based upon his noninvasive testing that he likely has significant infrageniculate and small vessel disease. I have discussed with him that I may or may not be able to intervene to make an improvement. He understands these limitations. The patient states that he is to be discharged within a day or 2. We will work with their Tiler'S Assistant scheduling as an outpatient and have him return for the procedure. I very much appreciate the kind opportunity of assisting with his surgical care. Esteban Tuttle M.D., F.A.C.S. 03/18/19 0538 <Electronically signed by Esteban Tuttle MD> Date Esteban Tuttle MD Cosigner Signature (if applicable): Date CC: Anca Gregorio DO; Brea Bravo DPM; Esteban Tuttle MD; Esteban Wallace MD; Augie Washburn MD ~ Signed I have re-examined the patient. There are no clinical changes since date of exam. 10 7
[2019-03-25 07:16] VITALS: BMI 43.0
[2019-03-25 07:41] LABS: Bedside Glucose 356 mg/dL (70-110)
--- NOTE | 2019-03-25 09:41 | PCM.OPRPT ---
Problem List (1) Peripheral vascular disease Status: Chronic Report of Operation Date of Procedure: 03/25/19 Pre-Operative Diagnosis: Ischemic right foot infection Post-Operative Diagnosis: 90% stenosis proximal right anterior tibial artery. 70% stenosis right tibioperoneal trunk. Occluded right posterior tibial Surgery/Procedure Performed:: Abdominal pelvic right lower extremity arteriogram with 3 x 20 m saver angioplasty of the right proximal anterior tibial and of the right tibioperoneal trunk Description of Surgical Findings:: Timeout and informed consent was obtained. 48-year-old gent was taken to special procedure lab placed on the table. He received 50 mcg of fentanyl 1 mg Versed is intravenous sedation. Bilateral groins were sterilely prepped and draped. Ultrasound was performed of the left groin. The patient's morbid obesity with a BMI of 43.1 made visualization of the common femoral artery extraordinarily challenging. Under ultrasound guidance 2% lidocaine was instilled as a local anesthetic. A total of 12 cc was used. Micropuncture needle under ultrasound guidance was advanced in the left common femoral artery followed by Seldinger wire technique. I did have to repeat that twice in order to get clean access. Fluoroscopy demonstrated good positioning of the wire. A micropuncture sheath dilator was placed. No 3 5 J-wire was placed. A 5 Prydeinig short sheath dilator was inserted. Using an 035 angled Glidewire 5 Prydeinig universal flush catheter was placed into the abdominal aorta. Using 15 cc cc per second for 15 cc of contrast and AP aortogram was obtained. Utilized Visipaque contrast. Then I utilized an angled Glidewire and universal flush catheter gain selective access to the right superficial femoral artery. Static views then of the right lower extremity were obtained. Having achieved that I placed an 03 and 5 Magic wire through the flush catheter. I remove the flush catheter and a short 5 Prydeinig sheath and I placed a 45 cm 5 Prydeinig sheath. I then replaced using a 035 quick cross catheter. Using an 035 angled Glidewire to gain access to the right anterior tibial artery. The patient received 12,000 units of heparin. Based upon ACT measurements later in the case received an additional 1000 units of heparin. I was able to gain access to the right anterior tibial artery past the area of 90% stenosis with the angled Glidewire. I then asked advanced a quick cross catheter and exchanged out for a SV 5 wire. I then placed a 3 x 20 m Saber balloon for balloon angioplasty of the right anterior tibial up to 18 steph of pressure. That was held for 3 minutes. The balloon was deflated and injection now demonstrated dramatic improvement at that area of 90% stenosis. I then withdrew the balloon and could not get the SV 5 wire to engage the tibioperoneal trunk so I exchanged out again for a 035 angled Glidewire was able to get the guidewire to engage the tibioperoneal trunk advanced a quick cross catheter exchanged out for the SV 5 wire and then replaced the 3 x 20 m Saber balloon performed angioplasty of the right tibioperoneal trunk. This again was held for 3 minutes. Hand-injection view now demonstrated complete resolution. The wires and catheters were removed. I replaced the short 5 Prydeinig sheath. I placed a minx device. The balloon was inflated tension was pulled the device was attempted to be fired but it stuck and would not go to the complete injection. Did not get the time clock on the #1 button. So then withdrew the catheter and simply held pressure. Total contrast used 65 cc. The patient tolerated procedure well with no apparent complication. He was taken to the recovery area in satisfactory condition. Images demonstrate a widely patent abdominal aorta bilateral common iliacs internal iliacs and external iliacs. The right common femoral artery profundofemoral artery is patent. There is a focal area of smooth stenosis of the very proximal right superficial femoral artery approximately 30%. In the right mid superficial femoral artery there again is a very focal 1 cm long area of 30% stenosis. Approximately 6 cm distal this is a third area of approximately smooth 30% stenosis. The right anterior tibial has a 90% area of stenosis within 6 cm of the origin and this is over approximately 1 to 2 cm. The right tibioperoneal trunk has an area of 70% stenosis over approximately 2's centimeters. The right posterior tibial is occluded throughout its entire length with some slight refill seen at the ankle. Distally the right dorsalis pedis is occluded on the foot and there is collateral flow. Subsequent to the angioplasty there is now resolution of the stenosis of the right anterior tibial and of the right tibioperoneal trunk. Impression successfully treated high-grade stenosis of the right proximal anterior tibial and of the right tibioperoneal trunk with a 3 mm balloon. Completely occluded right posterior tibial with slight refill at the ankle. Esteban Tuttle M.D., F.A.C.S. Type of Anesthesia:: IV Sedation, Local
[2019-03-25 10:16] LABS: ACT Activated Clotting Time 142 sec (74-137)
[2019-03-25 10:16] LABS: ACT Activated Clotting Time 230 sec (74-137)
== END 2019-03-25 16:12 | disposition home or self-care (01) ==
LOC: CLSP 06:52
PROVIDERS: Family Provider Internal Medicine; PCP Internal Medicine; Referring Provider Surgery; Visit Provider Surgery
DX: E10.51 Type 1 diabetes mellitus with diabetic peripheral angiopathy without gangrene (principal); I13.2 Hypertensive heart and chronic kidney disease with heart failure and with stage 5 chronic kidney disease, or end stage renal disease; E10.22 Type 1 diabetes mellitus with diabetic chronic kidney disease; E10.65 Type 1 diabetes mellitus with hyperglycemia; N18.6 End stage renal disease; I50.9 Heart failure, unspecified; E10.621 Type 1 diabetes mellitus with foot ulcer; L97.522 Non-pressure chronic ulcer of other part of left foot with fat layer exposed; L97.512 Non-pressure chronic ulcer of other part of right foot with fat layer exposed; E10.40 Type 1 diabetes mellitus with diabetic neuropathy, unspecified; G47.33 Obstructive sleep apnea (adult) (pediatric); D63.1 Anemia in chronic kidney disease; E78.5 Hyperlipidemia, unspecified; I27.20 Pulmonary hypertension, unspecified; J96.11 Chronic respiratory failure with hypoxia; E66.01 Morbid (severe) obesity due to excess calories; Z68.41 Body mass index [BMI] 40.0-44.9, adult; Z99.2 Dependence on renal dialysis; Z79.82 Long term (current) use of aspirin; Z79.4 Long term (current) use of insulin; Z79.899 Other long term (current) drug therapy; Z86.73 Personal history of transient ischemic attack (TIA), and cerebral infarction without residual deficits
CPT/HCPCS: 36200; 36245; 37228; 37232; 75625; 75710; 76937; 82962; 85347; 99152; 99153; C1760; J7040; Q9967; C1725; C1769; C1887; C1894

== ENCOUNTER → 2019-04-08 15:31 | Outpatient (CLI) | payer MEDICARE, SELFPAY ==
[2019-04-03 10:30] VITALS: BMI 40.7
--- NOTE | 2019-04-08 15:35 | RAD_ITS ---
STUDY: X-RAY - LEFT FOOT CLINICAL: Male, 48 years old. Ulceration left big toe TECHNIQUE: 3 view(s) of the foot. COMPARISON: None. FINDINGS: There is swelling of the foot with vascular calcifications in the soft tissues of the ankle and foot. There are no acute fractures or dislocations. There is no bone or joint disease. RAD/Foot min 3 Views IMPRESSION: Cellulitis of the foot. No osteomyelitis. Vascular calcifications in the soft tissues. Diabetes mellitus suspected Electronically Signed: Kory Torrez MD at 1:48 EDT Tel , Service support ,
--- NOTE | 2019-04-08 15:45 | RAD_ITS ---
STUDY: X-RAY - RIGHT FOOT CLINICAL: Male, 48 years old. Ulceration around the right fifth metatarsal head TECHNIQUE: History view(s) of the foot. COMPARISON: None. FINDINGS: Numerous vascular calcifications in the soft tissues of the foot. Swelling of the foot. No osteomyelitis. No acute fractures or dislocations. RAD/Foot min 3 Views IMPRESSION: Soft tissue vascular calcifications. Diabetes mellitus suspected. Cellulitis of the foot. No osteomyelitis Electronically Signed: Kory Torrez MD at 2:09 EDT Tel , Service support ,
== END ==
PROVIDERS: Family Provider Internal Medicine; PCP Internal Medicine; Referring Provider Podiatrist Foot & Ankle Surgery; Visit Provider Podiatrist Foot & Ankle Surgery
DX: E11.621 Type 2 diabetes mellitus with foot ulcer (principal); L97.412 Non-pressure chronic ulcer of right heel and midfoot with fat layer exposed; L97.522 Non-pressure chronic ulcer of other part of left foot with fat layer exposed; L03.116 Cellulitis of left lower limb; L03.115 Cellulitis of right lower limb
CPT/HCPCS: 73630

== ENCOUNTER 2019-04-10 09:30 | Outpatient (RCR) | payer MEDICARE, SELFPAY ==
[2019-04-03 10:30] VITALS: BP 157/78; PULSE 69; RESP 20; TEMP 35.9; BMI 40.7
--- NOTE | 2019-04-03 12:02 | PCM.WC.HP ---
(1) Ulcer of right foot with fat layer exposed Status: Chronic Code(s): L97.512 - Non-pressure chronic ulcer of other part of right foot with fat layer exposed (2) Chronic ulcer of left foot with fat layer exposed Status: Chronic Code(s): L97.522 - Non-pressure chronic ulcer of other part of left foot with fat layer exposed (3) Localized edema Status: Chronic Code(s): R60.0 - Localized edema (4) Malnutrition Status: Chronic Code(s): E46 - Unspecified protein-calorie malnutrition (5) Peripheral vascular disease Status: Chronic Code(s): I73.9 - Peripheral vascular disease, unspecified (6) Type 1 diabetes mellitus Status: Chronic Qualifiers: Code(s): E10.9 - Type 1 diabetes mellitus without complications (7) Morbid obesity with BMI of 40.0-44.9, adult Status: Chronic Code(s): E66.01 - Morbid (severe) obesity due to excess calories; Z68.41 - Body mass index (BMI) 40.0-44.9, adult (8) Diabetic neuropathy Status: Chronic Qualifiers: Diabetes mellitus type: type 2 Code(s): E11.40 - Type 2 diabetes mellitus with diabetic neuropathy, unspecified History of Present Illness Date of Service: 04/03/19 Chief Complaint: Right left foot ulcers History of Wound: This 48-year-old male with diabetes, peripheral vascular disease, chronic kidney disease, sleep apnea, obesity and other comorbidities has chronic bilateral foot ulcers. He was admitted to [facility] mid March 2019 in which she was treated for cellulitis with IV antibiotics and he was screened for other infection of deep tissue or injuries. His x-ray looks like chronic fractures of the fourth toe these have remained stable. His cellulitis was addressed with intravenous antibiotics. During his last hospital admission the main concern was his peripheral vascular disease and he did have an abdominal pelvic right lower extremity arteriogram with angioplasty of the right proximal anterior tibial artery and right tibial peroneal trunk with improved perfusion with Dr. Tuttle. The blackened tissue at his right foot ulcer site has since resolved and he was recently seen by Dr. Tejeda in the outpatient setting at the [facility]. He is been offloading with surgical shoes and tries to take nutritional supplementation as advised. He denies fever, chill, nausea, vomiting. Past Medical History Past Medical History: Chronic Problems (Last Updated 03/12/19 @ 17:43 by Kayla Tamayo MD) Ulcer of right foot with fat layer exposed (Chronic) Chronic ulcer of left foot with fat layer exposed (Chronic) Localized edema (Chronic) Malnutrition (Chronic) Osteomyelitis (Chronic) differential diagnosis Peripheral vascular disease (Chronic) Toe fracture, right (Chronic) Non-pressure chronic ulcer of other part of right foot with fat layer exposed (Chronic) Non-pressure chronic ulcer of other part of left foot with fat layer exposed (Chronic) Type 1 diabetes mellitus (Chronic) Morbid obesity with BMI of 40.0-44.9, adult (Chronic) Noncompliance (Chronic) CHF (congestive heart failure) (Chronic) Abnormal stress test (Chronic) TIA (transient ischemic attack) (Chronic) Pulmonary hypertension (Chronic) Morbid obesity with BMI of 40.0-44.9, adult (Chronic) End stage renal disease on dialysis (Chronic) Chronic respiratory failure with hypoxia (Chronic) HTN (hypertension) (Chronic) Hyperlipidemia (Chronic) Diabetic neuropathy (Chronic) Anemia (Chronic) SELMA (obstructive sleep apnea) (Chronic) Surgical History: tonsillectomy, - - AV fistula in right arm. Vascular surgery intervention right lower extremity Allergies/Adverse Reactions: Allergies venom-honey bee [bee venom (honey bee)] Allergy (Verified 04/01/19 13:46) Swelling sulfamethoxazole [From Bactrim] Adverse Reaction (Verified 04/01/19 13:46) Upset Stomach trimethoprim [From Bactrim] Adverse Reaction (Verified 04/01/19 13:46) Upset Stomach Home Medications: Ambulatory Orders Medication Instructions Recorded Atorvastatin Calcium [Lipitor] 20 mg PO QHS 10/11/17 Pyridoxine HCl [Vitamin B-6] 100 mg PO DAILY 10/11/17 Vits A,C,E/Lutein/Minerals 1 ea PO DAILY 10/11/17 [Ocuvite with Lutein Tablet] Folic Acid/Vitamin B Comp W-C 1 cap PO DAILY 10/27/17 [Nephrocaps, Renaphro] albuterol sulfate HFA 90 2 puff INHALATION Q4H PRN #18 g 02/26/18 mcg/actuation aerosol inhaler Aspirin E.C. [Ecotrin] 81 mg PO DAILY 03/23/18 Cyclobenzaprine HCl 10 mg PO TID PRN PRN 03/23/18 Fluticasone 0.05% [Flonase Nasal 1 spray NASAL DAILY 03/23/18 [place]] Gabapentin [Neurontin] 300 mg PO BID 03/23/18 isosorbide mononitrate ER 30 mg 30 mg PO DAILY #30 tab 07/24/18 tablet,extended release 24 hr Acetaminophen [Tylenol Tablet] 650 mg PO Q6H PRN PRN tab 09/19/18 Guaifenesin Dm [Robitussin Dm] 10 ml PO Q6H PRN PRN #1 bottle 11/21/18 Furosemide [Lasix] 40 mg PO BID 03/12/19 Metoprolol Tartrate [Lopressor 50 mg PO BID 03/12/19 (beta khoa)] Omeprazole 40 mg PO DAILY 03/12/19 proMETHazine tablet [Phenergan 25 mg PO TID PRN 03/13/19 tablet] Collagenase [Santyl] 1 applic TOPICAL DAILY tube 03/15/19 Insulin Lispro [Humalog KwikPen] 15 unit SUBCUT TIDAC insuln.pen 03/15/19 Humulin R U-500 ([facility]) 50 units SUBCUT BIDAC 03/20/19 Lisinopril [Zestril] 20 mg PO DAILY tab 03/20/19 Sevelamer HCl [Renagel] 2,400 mg PO TID #0 03/20/19 - Family History Maternal Family History: Family History (Last Reviewed 01/15/19 @ 01:57 by Eze Rivera MD) Mother Hypertension Heart disease Diabetes Father Hypertension Heart disease Brother Heart disease Diabetes, Heart Disease, Hypertension, Renal Disease Paternal Family History: Family History (Last Reviewed 01/15/19 @ 01:57 by Eze Rivera MD) Mother Hypertension Heart disease Diabetes Father Hypertension Heart disease Brother Heart disease Cancer - liver, Diabetes, Heart Disease Smoking Status: Never smoker Review of Systems Constitutional: Denies: Chills, Fever, Fatigue Cardiovascular: Reports: Orthopnea. Denies: Chest Pain, Claudication Gastrointestinal: Denies: Nausea, Vomiting Musculoskeletal: Denies: Foot Pain, Leg Pain Skin: Reports: Skin Changes, Wounds Neurological: Reports: Balance problems, Numbness - Physical Exam Vital Signs Temp Pulse Resp BP 96.7 F L 69 20 H 157/78 H 04/03/19 10:30 04/03/19 10:30 04/03/19 10:30 04/03/19 10:30 General: Alert, Oriented x3, Cooperative, No apparent distress HEENT: Atraumatic Extremities: No cyanosis, Capillary Refill Less than 3 Seconds - All digits bilateral foot, No Calf Tenderness - Negative Radha and Adan sign bilateral, Diminished Peripheral Pulses, Edema - Bilateral lower extremities, - - Dorsal contraction of lesser digits bilateral and prominent metatarsal heads bilateral Skin: Ulcer/ Wound - No purulence, erythema, streaking, odor, infection bilateral. The plantar sub-fourth and fifth metatarsal head ulcer has significant improvement of the base quality. There is no longer any eschar noted. The ulcer bed is granular with very sparse fibrous tissue exposed. There is no maceration or deep probing. There is no bogginess or fluctuance on palpation. The left foot sub-first metatarsal head ulcer also appears healthy and stable with decreased callus formation peripherally. He has proper offloading with bilateral surgical shoes with PEG removal offloading pockets to take pressure off of the ulcer sites Wound Measurements and Assessment WC - Nurse 1 - General Ulcer Measurement Start: 04/03/19 10:21 Freq: Status: Active Protocol: Activity Type Activity Date Activity User E-Sign Co-Sign Detail Recorded Client Recorded Date Recorded By Document 04/03/19 10:30 DL [id number] 04/03/19 10:48 DL 04/03/19 10:30 Wound Center Nurse 1 [Ulcer Assessment] #2 L Med Plantar -Current Size (cm) - Length 0.6 -Current Size (cm) - Width 0.6 -Current Size (cm) - Depth 0.2 -Total Square Cm 0.36 -Photo Taken Yes -Exudate Amt Small -Exudate Type Serosanguineous -Wound Margin Thickened -Granulation Amt None Present (0 %) -Necrosis Amt Large (67-100%) -Necrotic Tissue Type Adherent Slough -Structure Exposed N/A -Texture (Amanda-wound Skin Appearance) Callus,Scarring -Moisture (Amanda-wound Skin Appearance Maceration ) -Color (Amanda-wound Skin Appearance) Hemosiderin Staining -Temperature (Amanda-wound Skin No Abnormality Appearance) (Pt Warm) -Tenderness on Palpation (Amanda-wound No Skin Appearance) -Ulcer Cleansing Wound Cleanser -Foul Odor after Cleansing No -Anesthetic Used 5% Lidocaine Gel #1 R Lat Plantar -Current Size (cm) - Length 3 -Current Size (cm) - Width 3 -Current Size (cm) - Depth 0.2 -Total Square Cm 9 -Photo Taken Yes -Exudate Amt Small -Exudate Type Serosanguineous -Wound Margin Thickened -Granulation Amt Small (1-33%) -Granulation Quality [place] -Necrosis Amt Large (67-100%) -Necrotic Tissue Type Adherent Slough -Structure Exposed N/A -Texture (Amanda-wound Skin Appearance) Callus,Scarring -Moisture (Amanda-wound Skin Appearance Maceration ) -Color (Amanda-wound Skin Appearance) Hemosiderin Staining -Temperature (Amanda-wound Skin No Abnormality Appearance) (Pt Warm) -Tenderness on Palpation (Amanda-wound No Skin Appearance) -Ulcer Cleansing Wound Cleanser -Foul Odor after Cleansing No -Anesthetic Used 5% Lidocaine Gel [Edema Assessment] -Right Calf (cm) 43.3 -Right Ankle (cm) 23.3 -Left Calf (cm) 43 -Left Ankle (cm) 24 WC - Nurse 2 - General Ulcer CM Notes Start: 04/03/19 10:21 Freq: Status: Active Protocol: Activity Type Activity Date Activity User E-Sign Co-Sign Detail Recorded Client Recorded Date Recorded By Document 04/03/19 11:10 AN [id number] 04/03/19 11:15 AN 04/03/19 11:10 Wound Center Nurse 2 [Procedure/Treatment] #2 L Med Plantar -Time 11:12 -Correct Patient Yes -Correct Side, Site, Position Yes -Correct Procedure Yes -Procedure Performed Yes -Type of Procedure Debridement -Clinical Debridement Subcutaneous -Post Debridement Size (cm) - Length 0.7 -Post Debridement Size (cm) - Width 0.7 -Post Debridement Size (cm) - Depth 0.2 -Total Square Cm 0.49 -Wound/Ulcer Outcome Not Healed -Ulcer Cleansing Rinsed/ Irrigated with Saline -Foul Odor after Cleansing No -Bioengineered Tissue No -Bleeding Controlled with Pressure -Offloading Yes -Type of Offloading Surgical Shoe -Treatment Response Procedure Tolerated Well #1 R Lat Plantar -Time 11:13 -Correct Patient Yes -Correct Side, Site, Position Yes -Correct Procedure Yes -Procedure Performed Yes -Type of Procedure Debridement -Clinical Debridement Subcutaneous -Post Debridement Size (cm) - Length 3.1 -Post Debridement Size (cm) - Width 3.1 -Post Debridement Size (cm) - Depth 0.2 -Total Square Cm 9.61 -Wound/Ulcer Outcome Not Healed -Ulcer Cleansing Rinsed/ Irrigated with Saline -Foul Odor after Cleansing No -Bioengineered Tissue No -Bleeding Controlled with Pressure -Offloading Yes -Treatment Response Procedure Tolerated Well [See Physician Procedure note for Specifics] Pain Scale: 0-10 Numeric [Pain] -Is Patient Pain Free? Yes Musculoskeletal: No Tenderness to Palpation of Joints or Extremities, Muscle Wasting Neurological: - - Lack of normal epicritic sensation light touch is consistent with neuropathy bilateral lower extremities Psych/Mental Status: Normal Affect, Appropriate Debridement Note Post-Debridement Measurements/Treatment WC - Nurse 2 - General Ulcer CM Notes Start: 04/03/19 10:21 Freq: Status: Active Protocol: Activity Type Activity Date Activity User E-Sign Co-Sign Detail Recorded Client Recorded Date Recorded By Document 04/03/19 11:10 AN [id number] 04/03/19 11:15 AN 04/03/19 11:10 Wound Center Nurse 2 #2 L Med Plantar -Time 11:12 -Correct Patient Yes -Correct Side, Site, Position Yes -Correct Procedure Yes -Procedure Performed Yes -Type of Procedure Debridement -Clinical Debridement Subcutaneous -Post Debridement Size (cm) - Length 0.7 -Post Debridement Size (cm) - Width 0.7 -Post Debridement Size (cm) - Depth 0.2 -Total Square Cm 0.49 -Wound/Ulcer Outcome Not Healed -Ulcer Cleansing Rinsed/ Irrigated with Saline -Foul Odor after Cleansing No -Bioengineered Tissue No -Bleeding Controlled with Pressure -Offloading Yes -Type of Offloading Surgical Shoe -Treatment Response Procedure Tolerated Well #1 R Lat Plantar -Time 11:13 -Correct Patient Yes -Correct Side, Site, Position Yes -Correct Procedure Yes -Procedure Performed Yes -Type of Procedure Debridement -Clinical Debridement Subcutaneous -Post Debridement Size (cm) - Length 3.1 -Post Debridement Size (cm) - Width 3.1 -Post Debridement Size (cm) - Depth 0.2 -Total Square Cm 9.61 -Wound/Ulcer Outcome Not Healed -Ulcer Cleansing Rinsed/ Irrigated with Saline -Foul Odor after Cleansing No -Bioengineered Tissue No -Bleeding Controlled with Pressure -Offloading Yes -Treatment Response Procedure Tolerated Well Pain Scale: 0-10 Numeric Is Patient Pain Free? Yes Wound debrided: plantar lateral foot Laterality: Right - g Wound Grade/Stage: grade 1 Type of Debridement: Excisional debridement Anesthesia Used: 5% Lidocaine Gel Depth: in the subcutaneous layer Percentage of wound debrided: 100 Instrument Used: #15 blade Tissue Removed: fibrous, devitalized subcutaneous, biofilm, slough Severity: Fat Layer Exposed Amount of bleeding with debridement: Mild Bleeding Controlled with: Pressure Patient tolerated procedure well - Additional Wound Wound debrided: sub 1st metatarsal head Laterality: Left Wound Grade/Stage: grade 1 Type of Debridement: Excisional debridement Anesthesia Used: 5% Lidocaine Gel Depth: in the subcutaneous layer Percentage of wound debrided: 100 Instrument Used: #15 blade Tissue Removed: fibrous, devitalized subcutaneous, biofilm, slough Severity: Fat Layer Exposed Amount of bleeding with debridement: Mild Bleeding Controlled with: Pressure Patient tolerated procedure: Patient tolerated procedure well Assessment/Plan Assessment: Diabetes with neuropathy (hemoglobin A1c 12%). Right foot ulcer sub-fourth and fifth metatarsal heads, low suspicion for infection or osteomyelitis at this time. Right fourth and fifth proximal phalanx nondisplaced nonarticular fractures. Left Waller grade 1 diabetic foot ulcer sub-first metatarsal head, no infection. Foot deformities including hammertoes and hallux limitus bilateral. Peripheral vascular disease now status post vascular surgery intervention. Other comorbidities including noncompliance, renal disease on dialysis, cardiac history. Malnutrition suspected. Gait instability Plan: I reviewed and discussed his case. Subcutaneous excisional debridement was performed to bilateral foot as noted in the clinical panel. To change dressing daily with Santyl as he has been performing is ready. To continue with offloading surgical shoes and heel weight-bear. To use assistive device as needed. His x-rays from his most recent hospital admission were reviewed with no soft tissue emphysema or foreign body. He does have notable small vessel calcification consistent with vascular disease status. He does also have cortical interruption of the fourth and fifth proximal phalanx at the metaphyseal diaphyseal junction in a transverse nondisplaced nonarticular manner. There is no periosteal reaction or osseous destruction and therefore I previously did not correlate this with the diagnosis of osteomyelitis. However this is still a differential diagnosis and an MRI will be considered pending progress. Infectious disease was on consultation during his last hospital admission is noted he did complete antibiotics to address any concurrent cellulitis. This is not apparent today. . Vascular surgery intervention is noted in greatly appreciated. He had an abdominal pelvic right lower extremity arteriogram with angioplasty of the right proximal anterior tibial artery and right tibial peroneal trunk that was successful. To follow-up with Dr. Tuttle as scheduled. To continue with nutritional supplementation proper glycemic control to optimize healing. Compliance was discussed. It is noted that he is at risk for limb loss due to his condition including his multiple comorbidities. I called and discussed his case with his custom shoemaker, Dr. Dodson. He was recently seen in the [facility] and a new foot x-ray was ordered. The patient did not obtain this yet and he was encouraged to complete this task. He also relates his updated lab work ordered to the [facility] and these will be requested. Dr. Dodson plans to follow with this patient in the outpatient setting. If he does require hyperbaric oxygen therapy or advanced products a referral back to the wound healing center will be considered. He will follow-up at the [facility] at this time. I answered all his questions.
== END 2019-05-02 23:59 ==
LOC: WC 09:30
PROVIDERS: Family Provider Internal Medicine; PCP Internal Medicine; Visit Provider Podiatrist
DX: E10.621 Type 1 diabetes mellitus with foot ulcer (principal); R60.0 Localized edema; E10.51 Type 1 diabetes mellitus with diabetic peripheral angiopathy without gangrene; L97.512 Non-pressure chronic ulcer of other part of right foot with fat layer exposed; L97.522 Non-pressure chronic ulcer of other part of left foot with fat layer exposed; E10.40 Type 1 diabetes mellitus with diabetic neuropathy, unspecified; Z71.3 Dietary counseling and surveillance; I50.9 Heart failure, unspecified; E66.01 Morbid (severe) obesity due to excess calories; Z91.19 Patient's noncompliance with other medical treatment and regimen; Z68.41 Body mass index [BMI] 40.0-44.9, adult; I13.2 Hypertensive heart and chronic kidney disease with heart failure and with stage 5 chronic kidney disease, or end stage renal disease; G47.33 Obstructive sleep apnea (adult) (pediatric); I11.0 Hypertensive heart disease with heart failure; J96.11 Chronic respiratory failure with hypoxia; E78.5 Hyperlipidemia, unspecified
CPT/HCPCS: 11042; 99212; G0463

== ENCOUNTER → 2019-04-25 14:10 | Outpatient (CLI) | payer MEDICARE, SELFPAY ==
[2019-04-03 10:30] VITALS: BMI 40.7
--- NOTE | 2019-04-25 14:12 | ART_ITS ---
Reason For Study: claudication Procedure A bilateral lower extremity continuous wave Doppler with analog waveform analysis,segmental pressures,and ankle brachial indexes without exercise. Left Segmental Pressures Left brachial= 169mmHg. Left digit = 115 mmHg. The left dorsalis pedis waveforms are triphasic. The left posterior tibial artery waveforms are triphasic. TRIM INSTALLER and DPA are noncompressible. Right Segmental Pressures Right digit = 72 mmHg. The right dorsalis pedis waveforms are triphasic. The right posterior tibial artery waveforms are triphasic. TRIM INSTALLER and DPA are noncompressible. RUE BP not taken due to fistula. Indices The right digital-brachial index is .43. TRIM INSTALLER and DPA are noncompressible. The left digital-brachial index is .68. TRIM INSTALLER and DPA are noncompressible. Interpretation Summary Ankle brachial indices cannot be obtained bilaterally limiting the information from this study and making the interpretation based upon waveforms. Triphasic waveforms are present at bilateral DP and PT arteries suggesting maintained arterial flow at rest. Non-compressible vessels bilaterally suggest medical calcification of vessel mendoza. Bilateral digital brachial indices are abnormal. Ordering Physician: Leah Baltazar Referring Physician: Esteban Tuttle MD Performed By: [facility]
--- NOTE | 2019-04-25 15:11 | MRI_ITS ---
STUDY: MRI RIGHT FOREFOOT WITHOUT CONTRAST REASON FOR EXAM: Open wound at the plantar aspect of the distal fifth metatarsal, evaluate for pathologic fracture from osteomyelitis of the fourth proximal phalanx. TECHNIQUE: Standardized fat and water weighted pulse sequences were obtained in all 3 orthogonal planes. COMPARISON: Radiographs 03/12/2019 and 04/08/2019. FINDINGS: Normal metatarsophalangeal joint of the hallux. Normal tibial and fibular sesamoids, with normal sesamoids-first metatarsal articulations. Normal interphalangeal joint of the hallux. Normal proximal and distal phalanges of the great toe. Normal medial and lateral heads of the flexor hallucis brevis tendons. Normal flexor and extensor hallucis longus tendons. Normal second through fifth metatarsophalangeal (MTP) joints. Normal interphalangeal joints of the second through fifth toes. There is a fracture of the proximal metaphysis of the fourth proximal phalanx (T2 series 5 images 12-15) with periosteal reaction (T2 series 4 image 22). There is bone edema of the fourth proximal phalanx (inversion recovery sagittal images 23, 24) with relative preservation of T1 bone marrow signal (T1 sagittal images 23, 24) and therefore although underlying osteomyelitis cannot be excluded, is considered unlikely. There is a nondisplaced fracture of the proximal metaphysis of the fifth proximal phalanx (T2 series 5 image 15) with mild bone edema (inversion recovery sagittal image 27) and preservation of T1 bone marrow signal (T1 sagittal image 24). Normal first through fourth intermetatarsal spaces. Normal flexor and extensor tendons of the second through fifth toes. There is mild bone edema of the plantar aspect of the head of the fifth metatarsal (inversion recovery sagittal images 25, 26) with preservation of T1 bone marrow signal (T1 sagittal images 25, 26) and therefore either reactive bone edema or early osteomyelitis. There is atrophy with partial fat replacement of the intrinsic muscles of the forefoot (T1 sagittal images 9-23). There is edema in the subcutis adipose space without focal fluid collection to indicate soft tissue abscess. There is an ulcer at the plantar aspect of the fifth metatarsophalangeal joint. MRI/Lower Ext/No Jt/w/o IMPRESSION: Fracture of the proximal metaphysis of the fourth proximal phalanx with relative preservation T1 bone marrow signal, although underlying osteomyelitis cannot be excluded, is considered unlikely. Nondisplaced fracture of the fifth proximal phalanx. Bone edema of the plantar aspect of the head of the fifth metatarsal with preservation of T1 bone marrow signal, therefore either reactive bone edema or early osteomyelitis. Atrophy of the intrinsic muscles of the forefoot suggestive of peripheral neuropathy. Edema in the subcutis adipose space without demonstrated soft tissue abscess. Electronically Signed: Oh Duffy MD at 15:25 EDT Tel , Service support ,
== END ==
PROVIDERS: Family Provider Internal Medicine; PCP Internal Medicine; Referring Provider Podiatrist Foot & Ankle Surgery; Visit Provider Podiatrist Foot & Ankle Surgery
DX: I73.9 Peripheral vascular disease, unspecified (principal); M86.071 Acute hematogenous osteomyelitis, right ankle and foot
CPT/HCPCS: 73718; 93923

== ENCOUNTER 2019-05-14 14:48 | Inpatient (IN) | payer MEDICARE, SELFPAY ==
[2019-05-08 15:31] VITALS: BMI 40.7
[2019-05-14 14:50] VITALS: BP 187/73; PULSE 78; RESP 18; TEMP 36.9; O2SAT 88; BMI 41.3
[2019-05-14 14:53] VITALS: O2SAT 94
--- NOTE | 2019-05-14 15:02 | ED.RN ---
blackened area to the side of 5th lt toe. rt 5th toe has open area that is brown with drainage.
--- NOTE | 2019-05-14 15:04 | RAD_ITS ---
STUDY: X-RAY - RIGHT FOOT CLINICAL: Male, 48 years old. Jose TECHNIQUE: 3 view(s) of the foot. COMPARISON: 04.08.19 FINDINGS: There is a plantar calcaneal spur. Normal visualized subtalar, talonavicular, calcaneocuboid, tarsal and tarsometatarsal articulations. Normal metatarsi. Normal metatarsophalangeal joint of the great toe. Normal tibial and fibular sesamoid bones. Normal interphalangeal joint of the great toe. Normal phalanges of the great toe. Normal second through fifth metatarsophalangeal joints. There is an age-indeterminate fracture at the base of the fourth proximal phalanx. There is a suggestion of a probable nondisplaced age indeterminate fracture at the base of the fifth proximal phalanx. There are vascular calcifications. There is soft tissue edema. There is a visualized ulceration adjacent to the metatarsophalangeal joint at the fifth digit. RAD/Foot min 3 Views IMPRESSION: Subacute fractures of the proximal fifth and fourth phalanges. Soft tissue calcification. Soft tissue erosion at the level of the metatarsophalangeal joint of the fifth digit. No visualized bony erosion. Electronically Signed: Melissa Silverman MD at 16:29 EST Tel , Service support ,
--- NOTE | 2019-05-14 15:05 | ED.DCSUM_ITS ---
History of Present Illness Chief Complaint: Wound Detail of Chief Complaint: Manage from right foot wound Informant: Patient Limited by: - - He is not a good informant Onset: - - Dressing last changed Monday Context: Gradual Onset Timing: Continuous Quality: Colored smelly drainage Location: Distal lateral right foot and wound lateral distal left foot Current Severity: Moderate Maximum Severity: Moderate Worsened by: Unknown Relieved by: Nothing Associated Symptoms: Chills Narrative: She is a 48-year-old male with multiple medical problems who presents because of colored drainage with odor from the distal lateral right foot. He is scheduled for surgery by podiatry in 2 weeks. He states he completed a course of antibiotics he believes on Monday. Does not recall what antibiotic he was on. He is also concerned because of discoloration of the lateral distal left foot. Patient is on hemodialysis Monday, and Monday. He did complete dialysis today. He denies cardiac or respiratory symptoms. He denies GI symptoms. He states he makes 4 to 8 ounces of urine daily. Prior similar symptoms: Yes Recent Illness/Hospitalization: Yes - Past Medical History (1) CHF (congestive heart failure) Status: Chronic (2) Chronic ulcer of left foot with fat layer exposed Status: Chronic (3) Diabetic neuropathy Status: Chronic (4) End stage renal disease on dialysis Status: Chronic (5) HTN (hypertension) Status: Chronic (6) Hyperlipidemia Status: Chronic (7) Morbid obesity with BMI of 40.0-44.9, adult Status: Chronic (8) Non-pressure chronic ulcer of other part of right foot with fat layer exposed Status: Chronic (9) SELMA (obstructive sleep apnea) Status: Chronic (10) Osteomyelitis Status: Chronic Comment: differential diagnosis (11) Peripheral vascular disease Status: Chronic (12) Pulmonary hypertension Status: Chronic (13) TIA (transient ischemic attack) Status: Chronic Past Medical History - Allergies and Home Meds Allergies/Adverse Reactions: Allergies venom-honey bee [bee venom (honey bee)] Allergy (Verified 05/14/19 14:50) Swelling sulfamethoxazole [From Bactrim] Adverse Reaction (Verified 05/14/19 14:50) Upset Stomach trimethoprim [From Bactrim] Adverse Reaction (Verified 05/14/19 14:50) Upset Stomach Primary Care Physician: Augie Washburn MD [Primary Care Provider] - Prior records reviewed: Yes Surgical History: tonsillectomy, - - AV fistula in right arm. Vascular surgery intervention right lower extremity Lives: Alone Smoking Status: Never smoker Alcohol: None Drugs: None - Family History Maternal Family History: Family History (Last Reviewed 01/15/19 @ 01:57 by Eze Rivera MD) Mother Hypertension Heart disease Diabetes Father Hypertension Heart disease Brother Heart disease Family History: Reports: Diabetes, Heart Disease, Hypertension, Renal Disease Paternal Family History: Family History (Last Reviewed 01/15/19 @ 01:57 by Eze Rivera MD) Mother Hypertension Heart disease Diabetes Father Hypertension Heart disease Brother Heart disease Family History: Reports: Cancer - liver, Diabetes, Heart Disease Review of Systems General: Reports: Chills, Malaise. Denies: Fever, Subjective, Sweats Eyes: Denies: Visual changes - bilaterally, Blurred Vision - bilaterally ENT: Denies: Rhinorrhea, Sore throat Cardiovascular: Denies: Chest pain, Palpitations Respiratory: Denies: Dyspnea, Cough, Dyspnea on exertion Gastrointestinal: Denies: Abdominal pain, Nausea, Vomiting, Diarrhea, Melena, Hematochezia Genitourinary: Denies: Dysuria, Hematuria, Frequency Musculoskeletal: Reports: Swelling, Extremity Pain. Denies: Myalgias, Arthralgias Skin: Reports: Rash, Abscess, Wounds Neurological: Reports: Parasthesia. Denies: Headache, Weakness Endocrine: Denies: Polyuria, Polydipsia Hematologic: Denies: Easy bruising Physical Exam Vital Signs/Narrative: Vital Signs Temp Pulse Resp BP Pulse Ox 05/14/19 14:53 94 05/14/19 14:50 98.4 F 78 18 187/73 H 88 Inital Vital Signs reviewed: Yes General: Well nourished, Well developed, No Acute Distress Head: Normocephalic, Atraumatic Eyes: Perrl, EOMI, Pale conjunctiva. Negative for: Scleral icterus ENT: Moist mucous membranes, No rhinorrhea Neck: Supple, Nontender, No lymphadenopathy, No JVD Cardiovascular: Regular rate, Regular rhythm, No murmurs, Normal S1, Normal S2 Respiratory: No distress, CTA bilaterally, Chest nontender Abdomen: Soft, Nontender, Nondistended, Normal bowel sounds Rectal: Deferred Back: Nontender, Normal Inspection Extremities: Tenderness, Edema, - - DP and PT pulses are not palpable. There is a wound with drainage lateral and plantar surface right foot. There is erythema which was outlined. Patient complains of pain. Uncertain whether this is secondary to his neuropathy or other causes. Examination left foot reveals no palpable pulses. There is a black area over the proximal phalanx. There is tenderness. There is a wound is well. There is no drainage.. Negative for: Nontender, No edema Diagnostic/Tx/Re-eval Chest X-Ray - ED: Read by ED Physician, - - Three-view x-ray of the right foot reveals inflammation near the proximal phalanx right little toe. There is no evidence of osteomyelitis. There is calcification of multiple arteries in the foot. Three-view x-ray of the left foot was obtained and interpreted by me as negative for osteomyelitis, subluxation, dislocation or fracture. Films were interpreted at 1559 05/14/19 15:04 Foot min 3 Views [RAD] Stat 05/14/19 15:55 Foot min 3 Views [RAD] Stat Laboratory Results 05/14/19 05/14/19 05/14/19 15:25 15:25 15:25 WBC 9.0 RBC 3.32 L Hgb 9.7 L Hct 30.6 L MCV 92.2 MCH 29.2 MCHC 31.7 L RDW Std Deviation 51.7 H RDW Coeff of Roberto 15.6 H Plt Count 198 MPV 9.8 Immature Gran % (Auto) 1.300 H Neut % (Auto) 81.9 H Lymph % (Auto) 6.8 L Bureau % (Auto) 6.7 Eos % (Auto) 2.7 Baso % (Auto) 0.6 Absolute Neuts (auto) 7.4 Absolute Lymphs (auto) 0.61 L Nucleated RBC % 0 Sodium 135 L Potassium 3.8 Chloride 94 L Carbon Dioxide 32.0 Anion Gap 9 BUN 20 H Creatinine 4.23 H Estim Creat Clear Calc 19.53 Est GFR (MDRD) Af Amer 19 L Est GFR (MDRD) Non-Af 16 L BUN/Creatinine Ratio 4.7 L Glucose 363 H Lactic Acid 1.2 Calcium 8.5 White count is normal. CBC is marked for mild anemia. Creatinine is elevated 4.23. Patient is on hemodialysis. Lactate is normal at 1.2. X-rays were reviewed. Spoke with podiatry, Dr. Bravo who will see patient. - Medical Decision Making X-ray of the right and left foot was obtained to assess for osteomyelitis, subcutaneous air etc. Appropriate blood work was obtained. After results are available for review will contact podiatry. Dr. Hackett did see patient. She recommends admission. Case was discussed with hospitalist. Will treat with IV Zosyn for diabetic infected foot ulcer ED Disposition - Plan for ED Patient: Disposition: Acute Care Hospital [facility] Diagnosis: Diabetic foot infection, Type 2 diabetes mellitus with diabetic polyneuropathy, Peripheral vascular disease, End stage renal disease on dialysis Referrals: Augie Washburn MD [Primary Care Provider] -
[2019-05-14 15:38] LABS: Absolute Lymphocyte Count 0.61 X10^3/uL (0.83-4.51); Absolute Neutrophil Count 7.4 X10^3/uL (2.0-7.7); Basophil# 0.05 X10^3/uL; Basophil% 0.6 % (0-1); Eosinophil# 0.24 X10^3/uL; Eosinophils% 2.7 % (0-5); Hematocrit 30.6 % (40-54); Hemoglobin 9.7 g/dL (13.0-16.5); Lymphocyte # 0.61 X10^3/ul (4.0); Lymphocyte % 6.8 % (19-41); Mean Corp Hgb Conc 31.7 g/dL (32-36); Mean Corpuscular Hgb 29.2 pg (27.0-32.0); Mean Corpuscular Volume 92.2 fL (80-94); Mean Platelet Vol. 9.8 fl (6.2-12.0); Monocyte% 6.7 % (0-10); NRBC Flagged by Analyzer 0 % (0-5); Neutrophil # 7.37 X10^3/uL (2.7-7.7); Neutrophil % 81.9 % (47-70); Platelet Count 198 K/mm3 (150-450); RBC Distribution Width CV 15.6 % (11.6-14.6); RBC Distribution Width SD 51.7 fl (35.1-43.9); Red Blood Count 3.32 M/mm3 (4.6-6.2)
[2019-05-14 15:39] VITALS: TEMP 37
--- NOTE | 2019-05-14 15:55 | RAD_ITS ---
STUDY: X-RAY - LEFT FOOT CLINICAL: Male, 48 years old. Sores TECHNIQUE: 3 view(s) of the foot. COMPARISON: April 08, 2019 left foot x-ray FINDINGS: Normal talus, calcaneus, and tarsal bones. Normal visualized subtalar, talonavicular, calcaneocuboid, tarsal and tarsometatarsal articulations. Normal metatarsi. Normal metatarsophalangeal joint of the great toe. Normal tibial and fibular sesamoid bones. Normal interphalangeal joint of the great toe. Normal phalanges of the great toe. Normal second through fifth metatarsophalangeal joints. Normal interphalangeal joints and phalanges of the lesser toes. Soft tissue edema adjacent to the fifth digit. There is a possible small focal bony erosion within the proximal phalanx of the fifth digit. There is calcification of the small vessels of the foot. There is soft tissue edema suggested about the distal foot and the first digit. RAD/Foot min 3 Views IMPRESSION: Soft tissue edema, at the level of the fifth metatarsophalangeal joint small focal old injury or potentially a small focal erosion. Recommend consideration for follow-up MRI. Vascular calcifications. No visualized acute fracture. Electronically Signed: Melissa Silverman MD at 16:23 EST Tel , Service support ,
[2019-05-14 15:59] LABS: Lactic Acid 1.2 mmol/L (0.4-2.0)
[2019-05-14 16:06] LABS: Anion Gap 9 (5-15); BUN 20 mg/dL (7-18); BUN/Creat Ratio 4.7 RATIO (10-20); Calcium,Total 8.5 mg/dL (8.5-10.1); Chloride 94 mmol/L (98-107); Creatinine, Serum 4.23 mg/dL (0.70-1.30); EST Glomerular Filtration Rate 16 mL/min (>60); Est Glom Filt Rate - Afr Amer 19 mL/min (>60); Estimated Creatinine Clearance 19.53 ml/min; Glucose 363 mg/dL (74-106); Potassium 3.8 mmol/L (3.5-5.1); Sodium Level 135 mmol/L (136-145)
[2019-05-14] MEDS: Morphine 4 MG/ML Syringe IV ×3 (16:23→21:48)
[2019-05-14] MEDS: Ondansetron 4 MG/2 ML Vial IV (16:23)
[2019-05-14 16:45] VITALS: BP 193/73; PULSE 75; RESP 17; O2SAT 93
[2019-05-14 16:50] LABS: Erythrocyte Sedimentation Rate 102 mm/hr (0-20)
[2019-05-14 17:20] VITALS: BP 193/83; PULSE 76; RESP 18; TEMP 36.8; O2SAT 94
[2019-05-14 17:24] VITALS: BMI 41.2
[2019-05-14 17:31] VITALS: BMI 41.3
[2019-05-14] MEDS: Glucerna Shake 120 ML LIQUID PO (17:49)
[2019-05-14] MEDS: Insulin Lispro 100 UNIT/ML INSULN.PEN 15 UNIT SC (18:35)
[2019-05-14] MEDS: Insulin Lispro 100 UNIT/ML INSULN.PEN SC ×2 (18:35→21:17)
[2019-05-14 18:46] LABS: Bedside Glucose 376 mg/dL (70-110)
[2019-05-14 19:52] VITALS: BP 200/83; PULSE 72; RESP 18; TEMP 37.2; O2SAT 96
[2019-05-14] MEDS: Lisinopril 20 MG Tablet PO (19:52)
[2019-05-14] MEDS: Metoprolol Tartrate 50 MG Tablet PO (19:52)
[2019-05-14] MEDS: Atorvastatin Calcium 20 MG Tablet PO (19:52)
[2019-05-14] MEDS: Acetaminophen 325 MG Tablet 650 MG PO (19:55)
[2019-05-14] MEDS: Heparin Injection (Vial) 5,000 UNIT/ML VIAL 5000 UNIT SC (19:56)
--- NOTE | 2019-05-14 20:07 | PCM.HP.STD ---
Problem List (1) Bilateral foot wounds Status: Acute History of Present Illness Date of Admission: 05/14/19 Chief Complaint: Bilateral foot wounds with purulent drainage The patient is a 48 year old M was seen in the emergency room at [facility] after being sent in for evaluation of foot wounds with purulent drainage and odor-chiefly from his right foot. Patient also had a area on his left foot that appeared to be dry gangrene. Patient had followed as an outpatient with a traffic operations engineer and he was scheduled for surgical intervention within the next 2 weeks. Patient also stated that he had completed a course of antibiotics recently. Patient has a history of end-stage renal disease and undergoes dialysis on Monday and Saturdays. Patient underwent an MRI of the right foot on 04/26/2019 which revealed a fracture of the proximal metaphysis of the fourth proximal phalanx, osteomyelitis could not be excluded, there was also a nondisplaced fracture of the fifth proximal phalanx, there is also noted to be bone edema of the plantar aspect of the head of the fifth metatarsal indicating reactive bone edema or early osteomyelitis. There is also noted to be edema in any subcutaneous adipose space without abscess. During his emergency room visit today, an x-ray of the left foot was obtained which showed soft tissue edema at the level of the fifth metatarsal phalangeal joint, right foot x-ray was also obtained which showed subacute fractures of the proximal fifth and fourth phalanges, soft tissue erosion at the level of the metatarsophalangeal joint of the fifth digit was noted to be present. No visualized bony erosion however was noted. Lab was obtained in the emergency room, blood cell count was normal at 9, hemoglobin was 9.7, patient's chemistry profile was remarkable for creatinine of 4.23, BUN of 20, glucose of 363, and a C-reactive protein of 104. was contacted and saw the patient in the emergency room, she inspected the areas on both of his feet and wrapped them with gauze and Koffi wrap. These areas were not removed by this examiner for evaluation therefore. There was however noted to be a distinct malodor from the patient's right foot area. Patient will be admitted for cellulitis of the right foot, he was placed on IV Zosyn-previous cultures performed in March of this year grew out enterococcus, bacillus species, and corynebacterium. Infectious diseases will see the patient in consultation. Past Medical History Past Medical History (Chronic Problems): Chronic Problems (Last Updated 03/12/19 @ 17:43 by Kayla Tamayo MD) Ulcer of right foot with fat layer exposed (Chronic) Chronic ulcer of left foot with fat layer exposed (Chronic) Localized edema (Chronic) Malnutrition (Chronic) Type 2 diabetes mellitus with diabetic polyneuropathy (Chronic) Tailor's bunion of right foot (Chronic) Osteomyelitis (Chronic) differential diagnosis Peripheral vascular disease (Chronic) Toe fracture, right (Chronic) Non-pressure chronic ulcer of other part of right foot with fat layer exposed (Chronic) Non-pressure chronic ulcer of other part of left foot with fat layer exposed (Chronic) Type 1 diabetes mellitus (Chronic) Morbid obesity with BMI of 40.0-44.9, adult (Chronic) Noncompliance (Chronic) CHF (congestive heart failure) (Chronic) Abnormal stress test (Chronic) TIA (transient ischemic attack) (Chronic) Pulmonary hypertension (Chronic) Morbid obesity with BMI of 40.0-44.9, adult (Chronic) End stage renal disease on dialysis (Chronic) Chronic respiratory failure with hypoxia (Chronic) HTN (hypertension) (Chronic) Hyperlipidemia (Chronic) Diabetic neuropathy (Chronic) Anemia (Chronic) SELMA (obstructive sleep apnea) (Chronic) Medical History: Medical History (Last Updated 03/12/19 @ 17:43 by Kayla Tamayo MD) Chronic respiratory failure with hypoxia (Chronic) J96.11 HTN (hypertension) (Chronic) I10 Hyperlipidemia (Chronic) E78.5 Diabetic neuropathy (Chronic) E11.40 Anemia (Chronic) D64.9 SELMA (obstructive sleep apnea) (Chronic) G47.33 ESRD (end stage renal disease) on dialysis N18.6, Z99.2 cataract surgery, l eye Hypotension I95.9 Morbid obesity E66.01 Type 2 diabetes mellitus with other diabetic kidney complication E11.29 dx : age 16 last exacerbation : dka : never hypoglycemic episode : 2012 er visit : 2013 Allergies venom-honey bee [bee venom (honey bee)] Allergy (Verified 05/14/19 14:50) Swelling sulfamethoxazole [From Bactrim] Adverse Reaction (Verified 05/14/19 14:50) Upset Stomach trimethoprim [From Bactrim] Adverse Reaction (Verified 05/14/19 14:50) Upset Stomach Home Medications: Ambulatory Orders Medication Instructions Recorded Atorvastatin Calcium [Lipitor] 20 mg PO QHS 10/11/17 Pyridoxine HCl [Vitamin B-6] 100 mg PO DAILY 10/11/17 Vits A,C,E/Lutein/Minerals 1 ea PO DAILY 10/11/17 [Ocuvite with Lutein Tablet] Folic Acid/Vitamin B Comp W-C 1 cap PO DAILY 10/27/17 [Nephrocaps, Renaphro] albuterol sulfate HFA 90 2 puff INHALATION Q4H PRN #18 g 02/26/18 mcg/actuation aerosol inhaler Aspirin E.C. [Ecotrin] 81 mg PO DAILY 03/23/18 Cyclobenzaprine HCl 10 mg PO TID PRN PRN 03/23/18 Fluticasone 0.05% [Flonase Nasal 1 spray NASAL DAILY 03/23/18 [place]] Gabapentin [Neurontin] 300 mg PO BID 03/23/18 isosorbide mononitrate ER 30 mg 30 mg PO DAILY #30 tab 07/24/18 tablet,extended release 24 hr Acetaminophen [Tylenol Tablet] 650 mg PO Q6H PRN PRN tab 09/19/18 Guaifenesin Dm [Robitussin Dm] 10 ml PO Q6H PRN PRN #1 bottle 11/21/18 Furosemide [Lasix] 40 mg PO BID 03/12/19 Metoprolol Tartrate [Lopressor 50 mg PO BID 03/12/19 (beta emmanuel)] Omeprazole 40 mg PO DAILY 03/12/19 proMETHazine tablet [Phenergan 25 mg PO TID PRN 03/13/19 tablet] Collagenase [Santyl] 1 applic TOPICAL DAILY tube 03/15/19 Insulin Lispro [Humalog KwikPen] 15 unit SUBCUT TIDAC insuln.pen 03/15/19 Humulin R U-500 ([facility]) 50 units SUBCUT BIDAC 03/20/19 Lisinopril [Zestril] 20 mg PO DAILY tab 03/20/19 Sevelamer HCl [Renagel] 2,400 mg PO TID #0 03/20/19 Cephalexin 500 mg PO BID 05/14/19 Surgical History: Surgical History (Last Reviewed 07/16/18 @ 12:34 by Claudette Cheek) S/P tonsillectomy Z90.89 dialysis fistula Rt Arm Surgical History: tonsillectomy, - - AV fistula in right arm. Vascular surgery intervention right lower extremity Psychiatric History: No pertinent psych hx Lives: Alone Smoking Status: Never smoker Tobacco Use: Non-smoker Alcohol: None Drugs: None - *Family History Maternal Family History: Family History (Last Reviewed 01/15/19 @ 01:57 by Eze Rivera MD) Mother Hypertension Heart disease Diabetes Father Hypertension Heart disease Brother Heart disease History Items: Diabetes, Heart Disease, Hypertension, Renal Disease Paternal Family History: Family History (Last Reviewed 01/15/19 @ 01:57 by Eze Rivera MD) Mother Hypertension Heart disease Diabetes Father Hypertension Heart disease Brother Heart disease History Items: Cancer - liver, Diabetes, Heart Disease Review of Systems Constitutional: Denies: Anorexia, Chills, Fever, Night Sweats, Malaise, Weakness, Weight Change, Fatigue Eyes: Denies: Cataracts, Conjunctivae Inflammation, Double vision, Drainage HEENT: Denies: Difficulty Swallowing, Dysphasia, Ear Pain, Eye Pain, Hearing Changes, Nasal bleeding, Nasal Congestion, Post Nasal Drip Cardiovascular: Denies: Chest Pain, Claudication, Chest Pressure, Chest Tightness, Edema, Palpitations Respiratory: Denies: Cough, Hemoptysis, Pleuritic Pain, Shortness of Breath, Shortness of breath at rest, Shortness of breath upon exertion Gastrointestinal: Denies: Abdominal Pain, Constipation, Diarrhea, Hematemesis, Hematochezia, Nausea, Melena, Vomiting Genitourinary: Denies: Dysuria, Frequency, Hematuria, Hesitancy, Nocturia, Retention, Urgency Musculoskeletal: Reports: Foot Pain - Patient complains of right foot discomfort over his lateral foot area, Joint Pain - Patient complains of pain over his fourth and fifth toes of his right foot. Denies: Back Pain, Joint stiffness, Joint swelling, Leg Pain, Muscle pain Skin: Reports: Wounds - Patient has wounds on his right foot. Denies: Dryness, Pruritis, Rash Neurological: Denies: Blurred vision, Double vision, Change in Speech, Slurred speech, Difficulty swallowing, Focal weakness, Headaches, Incoordination, Numbness, Tingling Psychiatric: Denies: Anxiety, Depression, Homicidal Ideations, Suicidal Ideations Endocrine: Denies: Change in Body Habitus, Heat/ Cold Intolerance, Polydipsia, Polyuria Hematologic/ Lymphatic: Denies: Adenopathy, Anemia, Easy Bruising, Easy Bleeding, Petechiae, Purpura VTE Information - Inpt Only VTE Present on Admission: No VTE Mechan Device Prophylaxis: None VTE Pharm Prophylaxis ordered?: Yes Patient Problems: Active and Suspected Problems (Last Updated 03/12/19 @ 17:43 by Kayla Tamayo MD) Diabetic foot infection (Acute) Bilateral foot wounds (Acute) - Physical Exam Vitals/I&O's: Vital Signs Temp Pulse Resp BP Pulse Ox 98.2 F 72 18 200/83 H 94 05/14/19 17:20 05/14/19 19:52 05/14/19 17:20 05/14/19 19:52 05/14/19 17:20 Oxygen Flow Rate (L/min) 2 Oxygen Delivery Method Nasal Cannula Weight: 119.476 kg Body Mass Index (BMI) 41.2 Finger Stick Blood Glucose 191 Intake and Output for Last 24 Hours 05/12/19 05/13/19 05/14/19 23:59 23:59 23:59 Intake Total 100 / 100 Balance 100 / 100 General: Alert, Oriented x3, Cooperative, No apparent distress, Well developed, Well nourished HEENT: Atraumatic, PERRLA, EOMI, Normocephalic Oral: Moist Mucosa Neck: Supple, No JVD, Trachea Midline, Thyroid Normal Size and Texture Lungs: Clear to auscultation, Normal air movement, No rhonchi, No wheeze, No rales Cardiovascular: Regular rate, Regular Rhythm, Normal S1, Normal S2, No murmurs Abdomen: Bowel Sounds Present, Soft, Non Tender, Non-Distended, Obese Extremities: No clubbing, No cyanosis, Capillary Refill Less than 3 Seconds Skin: Ulcer/ Wound - There is noted to be ulceration on the plantar surface of the patient's right foot near the fourth and fifth metatarsal phalangeal area., - - Patient has an area which was opened by podiatry on the lateral aspect of the patient's left foot near the little toe which was a blood blister. Neurological: Cranial nerves II-XII grossly intact, Neuro grossly intact, Sensory exam intact to light touch and pain, Coordination normal Psych/Mental Status: Normal Affect, Appropriate, Alert and oriented to time, place, person, mood and affect Laboratory Results 05/14/19 15:25: WBC 9.0, RBC 3.32 L, Hgb 9.7 L, Hct 30.6 L, MCV 92.2, MCH 29.2, MCHC 31.7 L, RDW Std Deviation 51.7 H, RDW Coeff of Roberto 15.6 H, Plt Count 198, MPV 9.8, Immature Gran % (Auto) 1.300 H, Neut % (Auto) 81.9 H, Lymph % (Auto) 6.8 L, Lipscomb % (Auto) 6.7, Eos % (Auto) 2.7, Baso % (Auto) 0.6, Absolute Neuts (auto) 7.4, Absolute Lymphs (auto) 0.61 L, Nucleated RBC % 0 05/14/19 15:25: Sodium 135 L, Potassium 3.8, Chloride 94 L, Carbon Dioxide 32.0, Anion Gap 9, BUN 20 H, Creatinine 4.23 H, Estim Creat Clear Calc 19.53, Est GFR (MDRD) Af Amer 19 L, Est GFR (MDRD) Non-Af 16 L, BUN/Creatinine Ratio 4.7 L, Glucose 363 H, Calcium 8.5 05/14/19 15:25: Lactic Acid 1.2 05/14/19 15:25: ESR 102 H 05/14/19 15:25: C-React Prot Ext Range 104.00 H 05/14/19 18:30: POC Glucose 376 H Current Medications Acetaminophen (Tylenol) 650 mg PO Q6H PRN PRN PRN Reason: Mild Pain (1-3)/Temp > 100.7 F Last Admin: 05/14/19 19:55 Dose: 650 mg Documented by: Aspirin (Ecotrin) 81 mg PO DAILY@0800 COUNT INCLUDES THE [facility] Atorvastatin Calcium (Lipitor) 20 mg PO QHS RENE Last Admin: 05/14/19 19:52 Dose: 20 mg Documented by: Cyclobenzaprine HCl (Flexeril) 10 mg PO TID PRN PRN PRN Reason: SPASMS Dextrose (D50w Syringe) 0 gm IV X1 PRN; Protocol PRN Reason: Hypoglycemia Fluticasone Propionate (Flonase Nasal [place]) 1 spray NASAL DAILY RENE Furosemide (Lasix) 40 mg PO BIDLX RENE Gabapentin ([facility]ontin) [facility] [address] [facility] Glucagon () 1 mg IM .X1 PRN PRN Reason: Hypoglycemia Guaifenesin (Robitussin Dm) 10 ml PO Q6H PRN PRN PRN Reason: CONGESTION Heparin Sodium (Porcine) (Heparin Na) 5,000 unit SC Q8 COUNT INCLUDES THE [facility] Last Admin: 05/14/19 19:56 Dose: 5,000 unit Documented by: Piperacillin Sod/Tazobactam (Sod 3.375 gm/ Sodium Chloride) 50 mls @ 12.5 mls/hr IV Q12 COUNT INCLUDES THE [facility] Influenza Virus Vaccine Quadrival (Flucelvax /Fluzone ) 0.5 ml IM .ONCE ONE Stop: 05/15/19 10:01 Insulin Human Lispro (Humalog Kwikpen (Bk)) 15 unit SC TIDAC COUNT INCLUDES THE [facility] Last Admin: 05/14/19 18:35 Dose: 15 u Documented by: Insulin Human Lispro (Humalog Kwikpen (Bk)) 0 unit SC ACHS COUNT INCLUDES THE [facility]; Protocol Last Admin: 05/14/19 18:35 Dose: 12 u Documented by: Insulin Human Regular (Humulin R U-500 ([facility])) 50 units SC BIDAC COUNT INCLUDES THE [facility] Isosorbide Mononitrate (Imdur) 30 mg PO DAILY COUNT INCLUDES THE [facility] Lisinopril (Zestril) 20 mg PO DAILY COUNT INCLUDES THE [facility] Last Admin: 05/14/19 19:52 Dose: 20 mg Documented by: Metoprolol Tartrate (Lopressor (Beta Emmanuel)) 50 mg PO BID COUNT INCLUDES THE [facility] Last Admin: 05/14/19 19:52 Dose: 50 mg Documented by: Morphine Sulfate () 4 mg IV Q3H PRN PRN PRN Reason: Pain Score 6-10/10 Last Admin: 05/14/19 18:36 Dose: 4 mg Documented by: Multivit/Ca Carb/B Cmplx/FA/Prenat (Nephrocaps, Renaphro) [facility] Nutritional Formula (Lactose Free) (Glucerna Shake) 120 ml PO 4X/DAY COUNT INCLUDES THE [facility] Last Admin: 05/14/19 17:49 Dose: 120 ml Documented by: Ondansetron HCl (Zofran) 4 mg IV Q8H PRN PRN PRN Reason: NAUSEA/VOMITING Pantoprazole Sodium (Protonix) 40 mg PO DAILY COUNT INCLUDES THE [facility] Pyridoxine HCl (Vitamin B-6) 100 mg PO DAILYCM RENE Sevelamer Carbonate (Renvela) 2,400 mg PO TIDCM RENE Sodium Chloride () 10 - 40 ml IV UD PRN PRN Reason: SALINE FLUSH Assessment/Plan All Active Problems (Last Updated 03/12/19 @ 17:43 by Kayla Tamayo MD) Diabetic foot infection (Acute) Bilateral foot wounds (Acute) Chest pain (Acute) #1 right foot neuropathic ulceration with cellulitis-with possible osteomyelitis-patient will be [facility] to [facility], again podiatry will participate in his care, infectious diseases will consult on the patient, I will place the patient on IV Zosyn and give 1 dose of vancomycin. Patient will probably need debridement and/or amputation of the fourth and fifth metatarsal areas. #2 type 2 diabetes-under poor control, blood sugars will be monitored, sliding scale insulin will be used, patient will remain on his home insulin #3 neuropathy secondary to type 2 diabetes #4 morbid obesity #5 end-stage renal disease on dialysis-nephrology will be consulted, patient will continue hemodialysis while in the hospital #6 essential hypertension #7 hyperlipidemia #8 obstructive sleep apnea Code Visit Inpatient E&M: 56814 Init Hosp L3
--- NOTE | 2019-05-14 20:45 | PCM.CONS.GEN ---
Problem List (1) Ulcer of right foot with fat layer exposed Status: Chronic (2) Chronic ulcer of left foot with fat layer exposed Status: Chronic (3) Localized edema Status: Chronic (4) Malnutrition Status: Chronic (5) Type 2 diabetes mellitus with diabetic polyneuropathy Status: Chronic (6) Osteomyelitis Status: Chronic Qualifiers: Osteomyelitis type: subacute (7) Tailor's bunion of right foot Status: Chronic (8) Peripheral vascular disease Status: Chronic (9) Tailor's bunion of left foot Status: Chronic Reason for Consult Date of Consultation: 05/14/19 Reason for Consultation: Right and left foot ulcers with worsening. Right and left foot infections History of Present Illness: This 48 year old M with significant past medical history of diabetes with neuropathy, h/o anemia, chronic kidney disease on hemodialysis, peripheral vascular disease status post intervention, hypertension, hyperlipidemia, sleep apnea, obesity was seen in the emergency room at [facility] earlier this evening for worsening right foot ulcer status with odor. He also now has a new wound on his left foot and is concerned about this. His reports discoloration of the skin on his left foot. He relates the status started worsening within the past day. He denies trauma. He is previously known to me from a prior admission about 1 month ago and also with the wound care center this past week. He was also seen by [facility] respiratory therapy assistant who was providing wound care in the interim and ordered an MRI. There was questionable findings of osteomyelitis to the fifth metatarsal head. At this point, we have used the working diagnosis of osteomyelitis due to the chronicity and worsening status. He was placed on oral antibiotics in the outpatient setting and was in the process of getting set up for surgical resection of the fifth metatarsal head. He was also going to consider hyperbaric oxygen therapy. He was also scheduled to see infectious disease in the outpatient setting and was participating in a comprehensive wound healing plan including serial debridements, dressing, nutrition recommendations, and offloading. Today labs and bilateral foot x-rays were updated. He relates his glucose level are elevated but he is in monitoring the more closely recently. He was admitted due to worsening status and chayo signs of local infection. Past Medical History Past Medical History (Chronic Problems): Chronic Problems (Last Updated 03/12/19 @ 17:43 by Kayla Tamayo MD) Ulcer of right foot with fat layer exposed (Chronic) Chronic ulcer of left foot with fat layer exposed (Chronic) Localized edema (Chronic) Malnutrition (Chronic) Type 2 diabetes mellitus with diabetic polyneuropathy (Chronic) Osteomyelitis (Chronic) Tailor's bunion of right foot (Chronic) Tailor's bunion of left foot (Chronic) Osteomyelitis (Chronic) differential diagnosis Peripheral vascular disease (Chronic) Toe fracture, right (Chronic) Non-pressure chronic ulcer of other part of right foot with fat layer exposed (Chronic) Non-pressure chronic ulcer of other part of left foot with fat layer exposed (Chronic) Type 1 diabetes mellitus (Chronic) Morbid obesity with BMI of 40.0-44.9, adult (Chronic) Noncompliance (Chronic) CHF (congestive heart failure) (Chronic) Abnormal stress test (Chronic) TIA (transient ischemic attack) (Chronic) Pulmonary hypertension (Chronic) Morbid obesity with BMI of 40.0-44.9, adult (Chronic) End stage renal disease on dialysis (Chronic) Chronic respiratory failure with hypoxia (Chronic) HTN (hypertension) (Chronic) Hyperlipidemia (Chronic) Diabetic neuropathy (Chronic) Anemia (Chronic) SELMA (obstructive sleep apnea) (Chronic) Medical History: Medical History (Last Updated 03/12/19 @ 17:43 by Kayla Tamayo MD) Chronic respiratory failure with hypoxia (Chronic) J96.11 HTN (hypertension) (Chronic) I10 Hyperlipidemia (Chronic) E78.5 Diabetic neuropathy (Chronic) E11.40 Anemia (Chronic) D64.9 SELMA (obstructive sleep apnea) (Chronic) G47.33 ESRD (end stage renal disease) on dialysis N18.6, Z99.2 cataract surgery, l eye Hypotension I95.9 Morbid obesity E66.01 Type 2 diabetes mellitus with other diabetic kidney complication E11.29 dx : age 16 last exacerbation : dka : never hypoglycemic episode : 2012 er visit : 2013 Allergies venom-honey bee [bee venom (honey bee)] Allergy (Verified 05/14/19 14:50) Swelling sulfamethoxazole [From Bactrim] Adverse Reaction (Verified 05/14/19 14:50) Upset Stomach trimethoprim [From Bactrim] Adverse Reaction (Verified 05/14/19 14:50) Upset Stomach Home Medications: Ambulatory Orders Medication Instructions Recorded Atorvastatin Calcium [Lipitor] 20 mg PO QHS 10/11/17 Pyridoxine HCl [Vitamin B-6] 100 mg PO DAILY 10/11/17 Vits A,C,E/Lutein/Minerals 1 ea PO DAILY 10/11/17 [Ocuvite with Lutein Tablet] Folic Acid/Vitamin B Comp W-C 1 cap PO DAILY 10/27/17 [Nephrocaps, Renaphro] albuterol sulfate HFA 90 2 puff INHALATION Q4H PRN #18 g 02/26/18 mcg/actuation aerosol inhaler Aspirin E.C. [Ecotrin] 81 mg PO DAILY 03/23/18 Cyclobenzaprine HCl 10 mg PO TID PRN PRN 03/23/18 Fluticasone 0.05% [Flonase Nasal 1 spray NASAL DAILY 03/23/18 [place]] Gabapentin [Neurontin] 300 mg PO BID 03/23/18 isosorbide mononitrate ER 30 mg 30 mg PO DAILY #30 tab 07/24/18 tablet,extended release 24 hr Acetaminophen [Tylenol Tablet] 650 mg PO Q6H PRN PRN tab 09/19/18 Guaifenesin Dm [Robitussin Dm] 10 ml PO Q6H PRN PRN #1 bottle 11/21/18 Furosemide [Lasix] 40 mg PO BID 03/12/19 Metoprolol Tartrate [Lopressor 50 mg PO BID 03/12/19 (beta emmanuel)] Omeprazole 40 mg PO DAILY 03/12/19 proMETHazine tablet [Phenergan 25 mg PO TID PRN 03/13/19 tablet] Collagenase [Santyl] 1 applic TOPICAL DAILY tube 03/15/19 Insulin Lispro [Humalog KwikPen] 15 unit SUBCUT TIDAC insuln.pen 03/15/19 Humulin R U-500 ([facility]) 50 units SUBCUT BIDAC 03/20/19 Lisinopril [Zestril] 20 mg PO DAILY tab 03/20/19 Sevelamer HCl [Renagel] 2,400 mg PO TID #0 03/20/19 Cephalexin 500 mg PO BID 05/14/19 Surgical History: Surgical History (Last Reviewed 07/16/18 @ 12:34 by Claudette Cheek) S/P tonsillectomy Z90.89 dialysis fistula Rt Arm Surgical History: tonsillectomy, - - AV fistula in right arm. Vascular surgery intervention right lower extremity Psychiatric History: No pertinent psych hx Lives: Alone Smoking Status: Never smoker Tobacco Use: Non-smoker Alcohol: None Drugs: None - *Family History Maternal Family History: Family History (Last Reviewed 01/15/19 @ 01:57 by Eze Rivera MD) Mother Hypertension Heart disease Diabetes Father Hypertension Heart disease Brother Heart disease History Items: Diabetes, Heart Disease, Hypertension, Renal Disease Paternal Family History: Family History (Last Reviewed 01/15/19 @ 01:57 by Eze Rivera MD) Mother Hypertension Heart disease Diabetes Father Hypertension Heart disease Brother Heart disease History Items: Cancer - liver, Diabetes, Heart Disease Review of Systems Constitutional: Reports: Fatigue. Denies: Fever Cardiovascular: Reports: Edema. Denies: Chest Pain, Claudication Respiratory: Denies: Shortness of Breath Gastrointestinal: Reports: Nausea. Denies: Vomiting Musculoskeletal: Reports: Foot Pain Skin: Reports: Skin Changes, Wounds Neurological: Reports: Balance problems, Incoordination, Numbness Psychiatric: Denies: Anxiety Endocrine: Denies: Polyuria Hematologic/ Lymphatic: Denies: Easy Bruising Patient Problems: Active and Suspected Problems (Last Updated 03/12/19 @ 17:43 by Kayla Tamayo MD) Diabetic foot infection (Acute) Bilateral foot wounds (Acute) - Physical Exam Vitals/I&O's: Vital Signs Temp Pulse Resp BP Pulse Ox 98.2 F 72 18 200/83 H 94 05/14/19 17:20 05/14/19 19:52 05/14/19 17:20 05/14/19 19:52 05/14/19 17:20 Oxygen Flow Rate (L/min) 2 Oxygen Delivery Method Nasal Cannula Weight: 119.476 kg Body Mass Index (BMI) 41.2 Finger Stick Blood Glucose 191 Intake and Output for Last 24 Hours 05/12/19 05/13/19 05/14/19 23:59 23:59 23:59 Intake Total 100 / 100 Balance 100 / 100 General: Alert, Oriented x3, Cooperative, Lethargic HEENT: Atraumatic Extremities: No cyanosis, No Calf Tenderness - Negative Radha and Adan sign bilateral lower extremities, Diminished Peripheral Pulses, Edema, - - Capillary fill time less than 4 seconds bilateral Skin: Ulcer/ Wound - There is a fibronecrotic ulcer that has increased in size to the sub-fourth and fifth metatarsal head regions on the right foot there is also a new blister and skin discontinuity to the lateral aspect of the fifth metatarsal head that is likely communicating with the plantar ulcer. There is no interdigital maceration or other skin discontinuity on the right foot. The left foot does have a blood-filled bulla to the lateral and plantar aspect of the fifth metatarsal head upon drainage there is no purulence on expression. And the skin was left mainly intact as a biological barrier however there is fibrous tissue noted with deep tissue injury. There is erythema extending from both ulcer sites that extends approximately 1 1/2 cm with no additional lymphangitic streaking proximally., - - His skin is hairless and atrophic Musculoskeletal: Tenderness - Pain with ulcer manipulation bilateral, - - Dorsal contraction of lesser toes with prominent metatarsal heads and prominent fifth metatarsal head consistent with a tailor bunion deformity. Decreased ankle joint dorsiflexion consistent with equinus Neurological: - - Lack of normal epicritic sensation light touch is consistent with neuropathy status bilateral lower extremities Psych/Mental Status: Normal Affect, Appropriate, Anxious Laboratory Results 05/14/19 15:25: WBC 9.0, RBC 3.32 L, Hgb 9.7 L, Hct 30.6 L, MCV 92.2, MCH 29.2, MCHC 31.7 L, RDW Std Deviation 51.7 H, RDW Coeff of Roberto 15.6 H, Plt Count 198, MPV 9.8, Immature Gran % (Auto) 1.300 H, Neut % (Auto) 81.9 H, Lymph % (Auto) 6.8 L, Gordon % (Auto) 6.7, Eos % (Auto) 2.7, Baso % (Auto) 0.6, Absolute Neuts (auto) 7.4, Absolute Lymphs (auto) 0.61 L, Nucleated RBC % 0 05/14/19 15:25: Sodium 135 L, Potassium 3.8, Chloride 94 L, Carbon Dioxide 32.0, Anion Gap 9, BUN 20 H, Creatinine 4.23 H, Estim Creat Clear Calc 19.53, Est GFR (MDRD) Af Amer 19 L, Est GFR (MDRD) Non-Af 16 L, BUN/Creatinine Ratio 4.7 L, Glucose 363 H, Calcium 8.5 05/14/19 15:25: Lactic Acid 1.2 05/14/19 15:25: ESR 102 H 05/14/19 15:25: C-React Prot Ext Range 104.00 H 05/14/19 18:30: POC Glucose 376 H Current Medications Acetaminophen (Tylenol) 650 mg PO Q6H PRN PRN PRN Reason: Mild Pain (1-3)/Temp > 100.7 F Last Admin: 05/14/19 19:55 Dose: 650 mg Documented by: Aspirin (Ecotrin) 81 mg PO DAILY@0800 [facility] Atorvastatin Calcium (Lipitor) 20 mg PO QHS [facility] Last Admin: 05/14/19 19:52 Dose: 20 mg Documented by: Cyclobenzaprine HCl (Flexeril) 10 mg PO TID PRN PRN PRN Reason: SPASMS Dextrose (D50w Syringe) 0 gm IV X1 PRN; Protocol PRN Reason: Hypoglycemia Fluticasone Propionate (Flonase Nasal [place]) 1 spray NASAL DAILY [facility] Furosemide (Lasix) 40 mg PO BIDLX [facility] Gabapentin (Neurontin) 300 mg PO BIDCM [facility] Glucagon () 1 mg IM .X1 PRN PRN Reason: Hypoglycemia Guaifenesin (Robitussin Dm) 10 ml PO Q6H PRN PRN PRN Reason: CONGESTION Heparin Sodium (Porcine) (Heparin Na) 5,000 unit SC Q8 [facility] Last Admin: 05/14/19 19:56 Dose: 5,000 unit Documented by: Piperacillin Sod/Tazobactam (Sod 3.375 gm/ Sodium Chloride) 50 mls @ 12.5 mls/hr IV Q12 [facility] Vancomycin HCl 1,750 mg/ (Sodium Chloride) 535 mls @ 250 mls/hr IV X1 ONE Stop: 05/14/19 23:23 Influenza Virus Vaccine Quadrival (Flucelvax /Fluzone [id number]) 0.5 ml IM .ONCE ONE Stop: 05/15/19 10:01 Insulin Human Lispro (Humalog Kwikpen (Bkc)) 15 unit SC TIDAC [facility] Last Admin: 05/14/19 18:35 Dose: 15 u Documented by: Insulin Human Lispro (Humalog Kwikpen (Bkc)) 0 unit SC ACHS [facility]; Protocol Last Admin: 05/14/19 18:35 Dose: 12 u Documented by: Insulin Human Regular (Humulin R U-500 ([facility])) 50 units SC BIDAC [facility] Isosorbide Mononitrate (Imdur) 30 mg PO DAILY [facility] Lisinopril (Zestril) 20 mg PO DAILY [facility] Last Admin: 05/14/19 19:52 Dose: 20 mg Documented by: Metoprolol Tartrate (Lopressor (Beta Emmanuel)) 50 mg PO BID [facility] Last Admin: 05/14/19 19:52 Dose: 50 mg Documented by: Morphine Sulfate () 4 mg IV Q3H PRN PRN PRN Reason: Pain Score 6-10 Last Admin: 05/14/19 18:36 Dose: 4 mg Documented by: Multivit/Ca Carb/B Cmplx/FA/Prenat (Nephrocaps, Renaphro) 1 capsule PO DAILYCM [facility] Nutritional Formula (Lactose Free) (Glucerna Shake) 120 ml PO 4X/DAY [facility] Last Admin: 05/14/19 17:49 Dose: 120 ml Documented by: Ondansetron HCl (Zofran) 4 mg IV Q8H PRN PRN PRN Reason: NAUSEA/VOMITING Pantoprazole Sodium (Protonix) 40 mg PO DAILY [facility] Pyridoxine HCl (Vitamin B-6) 100 mg PO DAILYCM [facility] Sevelamer Carbonate (Renvela) 2,400 mg PO TIDCM [facility] Sodium Chloride () 10 - 40 ml IV UD PRN PRN Reason: SALINE FLUSH Assessment/Plan All Active Problems (Last Updated 03/12/19 @ 17:43 by Kayla Tamayo MD) Diabetic foot infection (Acute) Bilateral foot wounds (Acute) Chest pain (Acute) Diabetes with neuropathy (hemoglobin A1C 12% in 03/21) Right foot ulcer sub-fourth and fifth metatarsal heads with cellulitis- and I suspect osteomyelitis at this time due to chronicity, worsening status, and recent MRI findings (waller grade 3) Left Waller grade 1 diabetic foot ulcer lateral fifth metatarsal head with cellulitis and hematogenous bulla Foot deformities including hammertoes and tailor bunion bilateral Peripheral vascular disease Other comorbidities including noncompliance, renal disease on dialysis, cardiac history Malnutrition suspected Mechanical fall with right leg injury Gait instability I reviewed and discussed his case. As noted he is afebrile with vital signs stable. He does not have leukocytosis. He does have elevated ESR and C-reactive protein levels. He did have wound culture obtained from the right foot however it is noted and results pending. He has been started on antibiotics; broad spectrum vancomycin and zosyn. Blood cultures are pending. His x-rays were reviewed with no soft tissue emphysema, acute injuries, chayo osseous destruction, or foreign body. He does have notable small vessel calcification consistent with vascular disease status. He had an MRI of the right foot in the outpatient setting 3 weeks ago which had borderline findings of osteomyelitis. This is suspected at this time the chronicity of this ulcer, worsening status, and now concurrent infection. Infectious disease was also placed on consultation and input will be greatly appreciated. He will likely need surgical intervention involving lateral ray resections on the right foot and potentially transmetatarsal amputation. It is noted this was discussed at length with him in the outpatient setting and a prior fifth metatarsal head resection was scheduled and hyperbaric oxygen therapy is going to be considered because he was refusing amputation. Now that he is a status change and his foot viability has worsened, a different procedure is recommended. His response to antibiotics will also be monitored and demarcation will be initiated prior to proceeding forward with surgery. Dry sterile dressings were applied to bilateral foot. Keep pressure off of the ulcer site by heel weightbearing surgical shoes bilateral. It is also noted he had prior vascular surgery this year with Dr. Tuttle. His hyperglycemia is noted and will be monitored closely. Medical management DVT prophylaxis per primary team is greatly appreciated. Thank you for the consultation. Please not hesitate to call for any questions. Brea Bravo DPM, [facility] [phone]
[2019-05-14] MEDS: 0.9% Saline Lock 10 ML Syringe IV (21:24)
[2019-05-14 21:51] LABS: Bedside Glucose 302 mg/dL (70-110)
[2019-05-15] VITALS (8 sets, daily range): BP systolic 148–169; BP diastolic 57–89; PULSE 61–68; RESP 18; TEMP 36.4–37.1; O2SAT 97–100
[2019-05-15] MEDS: Heparin Injection (Vial) 5,000 UNIT/ML VIAL 5000 UNIT SC ×3 (05:17→22:03)
[2019-05-15 05:21] LABS: Absolute Lymphocyte Count 1.28 X10^3/uL (0.83-4.51); Absolute Neutrophil Count 4.3 X10^3/uL (2.0-7.7); Basophil# 0.09 X10^3/uL; Basophil% 1.3 % (0-1); Eosinophil# 0.44 X10^3/uL; Eosinophils% 6.5 % (0-5); Hematocrit 28.7 % (40-54); Hemoglobin 8.8 g/dL (13.0-16.5); Lymphocyte # 1.28 X10^3/ul (4.0); Lymphocyte % 18.9 % (19-41); Mean Corp Hgb Conc 30.7 g/dL (32-36); Mean Corpuscular Hgb 28.7 pg (27.0-32.0); Mean Corpuscular Volume 93.5 fL (80-94); Mean Platelet Vol. 9.8 fl (6.2-12.0); Monocyte# 0.55 X10^3/uL; Monocyte% 8.1 % (0-10); NRBC Flagged by Analyzer 0 % (0-5); Neutrophil # 4.32 X10^3/uL (2.7-7.7); Neutrophil % 63.6 % (47-70); Platelet Count 180 K/mm3 (150-450); RBC Distribution Width CV 15.3 % (11.6-14.6); RBC Distribution Width SD 52.6 fl (35.1-43.9); Red Blood Count 3.07 M/mm3 (4.6-6.2); White Blood Count 6.8 K/mm3 (4.4-11.0)
[2019-05-15 05:33] LABS: Anion Gap 10 (5-15); BUN 32 mg/dL (7-18); BUN/Creat Ratio 6.2 RATIO (10-20); Calcium,Total 8.3 mg/dL (8.5-10.1); Chloride 97 mmol/L (98-107); Creatinine, Serum 5.15 mg/dL (0.70-1.30); EST Glomerular Filtration Rate 13 mL/min (>60); Est Glom Filt Rate - Afr Amer 15 mL/min (>60); Estimated Creatinine Clearance 16.04 ml/min; Glucose 254 mg/dL (74-106); Potassium 3.9 mmol/L (3.5-5.1); Sodium Level 138 mmol/L (136-145)
[2019-05-15 06:46] LABS: Bedside Glucose 243 mg/dL (70-110)
[2019-05-15] MEDS: Morphine 4 MG/ML Syringe IV ×4 (08:20→22:09)
[2019-05-15] MEDS: 0.9% Saline Lock 10 ML Syringe IV ×5 (08:20→22:04)
[2019-05-15] MEDS: Insulin Lispro 100 UNIT/ML INSULN.PEN 15 UNIT SC ×3 (08:23→17:32)
[2019-05-15] MEDS: Insulin Lispro 100 UNIT/ML INSULN.PEN SC ×2 (08:23→12:04)
[2019-05-15] MEDS: Folic Acid/Vitamin B Comp W-C 1 Capsule 1 CAP PO (08:25)
[2019-05-15] MEDS: Aspirin E.C. 81 MG Tablet PO (08:25)
[2019-05-15] MEDS: Gabapentin 300 MG Capsule PO ×2 (08:26→17:31)
[2019-05-15] MEDS: SEVELAMER CARBONATE 800 MG TABLET 2400 MG PO ×3 (08:26→17:31)
[2019-05-15] MEDS: Pyridoxine HCl 100 MG Tablet PO (08:26)
--- NOTE | 2019-05-15 08:42 | NURSING ---
wound photo: right lateral foot
--- NOTE | 2019-05-15 08:43 | NURSING ---
wound photo: left foot
--- NOTE | 2019-05-15 08:54 | PCM.CONS.R ---
Consultation - Renal 05/15/19 PCP/ Referring MD: Requesting physician: [] Primary care physician: Augie Washburn MD Reason for Consultation:: ESRD THS - History of Present Illness History of Present Illness: The patient is a 48 year old M with ESRD due to diabetes, hypertension on HD , , Sat last dialysis yesterday, history of noncompliance with diet, fluid restriction, medications admitted for diabetic foot infection on right with purulent malodorous drainage past 2 days. He complains of pain in right foot. Denies fever or chills. He has a smaller foot ulcer on left. He has been hospitalized few months ago for same. He was suppose to wear a boot on right. Podiatry saw pt in ER yesterday who recommended admission. He was started on zosyn. MRI of the right foot on 04/26/2019 which revealed a fracture of the proximal metaphysis of the fourth proximal phalanx, osteomyelitis could not be excluded. A nondisplaced fracture of the fifth proximal phalanx, edema of the plantar aspect of the head of the fifth metatarsal indicating reactive bone edema or early osteomyelitis. There is also noted to be edema in any subcutaneous adipose space without abscess. Right foot x-ray showed subacute fractures of the proximal fifth and fourth phalanges, soft tissue erosion at the level of the metatarsophalangeal joint of the fifth digit. - Allergies Allergies: Allergies venom-honey bee [bee venom (honey bee)] Allergy (Verified 05/14/19 14:50) Swelling sulfamethoxazole [From Bactrim] Adverse Reaction (Verified 05/14/19 14:50) Upset Stomach trimethoprim [From Bactrim] Adverse Reaction (Verified 05/14/19 14:50) Upset Stomach - Current Medications Current Medications: Current Medications Acetaminophen (Tylenol) 650 mg PO Q6H PRN PRN PRN Reason: Mild Pain (1-3)/Temp > 100.7 F Last Admin: 05/14/19 19:55 Dose: 650 mg Documented by: Aspirin (Ecotrin) 81 mg PO DAILY@0800 [facility] Last Admin: 05/15/19 08:25 Dose: 81 mg Documented by: Atorvastatin Calcium (Lipitor) 20 mg PO QHS [facility] Last Admin: 05/14/19 19:52 Dose: 20 mg Documented by: Cyclobenzaprine HCl (Flexeril) 10 mg PO TID PRN PRN PRN Reason: SPASMS Dextrose (D50w Syringe) 0 gm IV X1 PRN; Protocol PRN Reason: Hypoglycemia Fluticasone Propionate (Flonase Nasal [place]) 1 spray NASAL DAILY [facility] Furosemide (Lasix) 40 mg PO BIDLX [facility] Gabapentin (Neurontin) 300 mg PO BIDCM [facility] Last Admin: 05/15/19 08:26 Dose: 300 mg Documented by: Glucagon () 1 mg IM .X1 PRN PRN Reason: Hypoglycemia Guaifenesin (Robitussin Dm) 10 ml PO Q6H PRN PRN PRN Reason: CONGESTION Heparin Sodium (Porcine) (Heparin Na) 5,000 unit SC Q8 [facility] Last Admin: 05/15/19 05:17 Dose: 5,000 unit Documented by: Piperacillin Sod/Tazobactam (Sod 3.375 gm/ Sodium Chloride) 50 mls @ 12.5 mls/hr IV Q12 [facility] Last Infusion: 05/15/19 04:17 Dose: Infused Documented by: Influenza Virus Vaccine Quadrival (Flucelvax /Fluzone ) 0.5 ml IM .ONCE ONE Stop: 05/15/19 10:01 Insulin Human Lispro (Humalog Kwikpen (Bk)) 15 unit SC TIDAC [facility] Last Admin: 05/15/19 08:23 Dose: 15 u Documented by: Insulin Human Lispro (Humalog Kwikpen (Bkc)) 0 unit SC ACHS [facility]; Protocol Last Admin: 05/15/19 08:23 Dose: 6 u Documented by: Insulin Human Regular (Humulin R U-500 (Bk)) 50 units SC BIDAC [facility] Last Admin: 05/15/19 08:24 Dose: 50 units Documented by: Isosorbide Mononitrate (Imdur) 30 mg PO DAILY [facility] Lisinopril (Zestril) 20 mg PO DAILY [facility] Last Admin: 05/14/19 19:52 Dose: 20 mg Documented by: Metoprolol Tartrate (Lopressor (Beta Emmanuel)) 50 mg PO BID [facility] Last Admin: 05/14/19 19:52 Dose: 50 mg Documented by: Morphine Sulfate () 4 mg IV Q3H PRN PRN PRN Reason: Pain Score 6-10/10 Last Admin: 05/15/19 08:20 Dose: 4 mg Documented by: Multivit/Ca Carb/B Cmplx/FA/Prenat (Nephrocaps, [facility]aphro) [facility] Last Admin: 05/15/19 08:25 Dose: 1 capsule Documented by: Nutritional Formula (Lactose Free) (Glucerna Shake) 120 ml PO 4X/DAY [facility] Last Admin: 05/14/19 20:46 Dose: Not Given Documented by: Ondansetron HCl (Zofran) 4 mg IV Q8H PRN PRN PRN Reason: NAUSEA/VOMITING Pantoprazole Sodium (Protonix) 40 mg PO DAILY [facility] Pyridoxine HCl (Vitamin B-6) [facility] Last Admin: 05/15/19 08:26 Dose: 100 mg Documented by: Sevelamer Carbonate (Renvela) 2,400 mg PO TIDCM [facility] Last Admin: 05/15/19 08:26 Dose: 2,400 mg Documented by: Sodium Chloride () 10 - 40 ml IV UD PRN PRN Reason: SALINE FLUSH Last Admin: 05/15/19 08:20 Dose: 10 ml Documented by: - Past Medical History Past Medical History (Chronic Problems): Chronic Problems (Last Updated 03/12/19 @ 17:43 by Kayla Tamayo MD) Ulcer of right foot with fat layer exposed (Chronic) Chronic ulcer of left foot with fat layer exposed (Chronic) Localized edema (Chronic) Malnutrition (Chronic) Type 2 diabetes mellitus with diabetic polyneuropathy (Chronic) Osteomyelitis (Chronic) Tailor's bunion of right foot (Chronic) Tailor's bunion of left foot (Chronic) Osteomyelitis (Chronic) differential diagnosis Peripheral vascular disease (Chronic) Toe fracture, right (Chronic) Non-pressure chronic ulcer of other part of right foot with fat layer exposed (Chronic) Non-pressure chronic ulcer of other part of left foot with fat layer exposed (Chronic) Type 1 diabetes mellitus (Chronic) Morbid obesity with BMI of 40.0-44.9, adult (Chronic) Noncompliance (Chronic) CHF (congestive heart failure) (Chronic) Abnormal stress test (Chronic) TIA (transient ischemic attack) (Chronic) Pulmonary hypertension (Chronic) Morbid obesity with BMI of 40.0-44.9, adult (Chronic) End stage renal disease on dialysis (Chronic) Chronic respiratory failure with hypoxia (Chronic) HTN (hypertension) (Chronic) Hyperlipidemia (Chronic) Diabetic neuropathy (Chronic) Anemia (Chronic) SELMA (obstructive sleep apnea) (Chronic) - Past Surgical History Surgical History: tonsillectomy, - - AV fistula in right arm. Vascular surgery intervention right lower extremity - Social History Smoking Status: Never smoker Alcohol: None Drugs: None - Family History Maternal Family History: Family History (Last Reviewed 01/15/19 @ 01:57 by Eze Rivera MD) Mother Hypertension Heart disease Diabetes Father Hypertension Heart disease Brother Heart disease History Items: Diabetes, Heart Disease, Hypertension, Renal Disease Paternal Family History: Family History (Last Reviewed 01/15/19 @ 01:57 by Eze Rivera MD) Mother Hypertension Heart disease Diabetes Father Hypertension Heart disease Brother Heart disease History Items: Cancer - liver, Diabetes, Heart Disease Review of Systems Constitutional: Denies: Anorexia, Chills, Fever Cardiovascular: Denies: Chest Pain Respiratory: Denies: Cough, Shortness of Breath Gastrointestinal: Denies: Abdominal Pain, Nausea, Vomiting Musculoskeletal: Reports: - - rt foot pain, infection, drainage Hematologic/ Lymphatic: Reports: Anemia Patient Problems: Active and Suspected Problems (Last Updated 03/12/19 @ 17:43 by Kayla Tamayo MD) Diabetic foot infection (Acute) Bilateral foot wounds (Acute) - Physical Exam Vitals/I&O's: Vital Signs Temp Pulse Resp BP Pulse Ox 97.8 F 64 18 161/81 H 98 05/15/19 08:13 05/15/19 08:13 05/15/19 08:13 05/15/19 08:13 05/15/19 08:13 Oxygen Flow Rate (L/min) 2 Oxygen Delivery Method Nasal Cannula Weight: 119.476 kg Body Mass Index (BMI) 41.2 Finger Stick Blood Glucose 191 Intake and Output for Last 24 Hours 05/13/19 05/14/19 05/15/19 23:59 23:59 23:59 Intake Total 100 / 420 1105 / 1105 Balance 100 / 420 1105 / 1105 General: Alert, Oriented x3, Cooperative, No apparent distress Lungs: Clear to auscultation Cardiovascular: Regular rate Abdomen: Bowel Sounds Present, Soft, Obese Extremities: Edema - mild RLE, legs wrapped bilat Psych/Mental Status: Normal Affect, Appropriate, Alert and oriented to time, place, person, mood and affect Laboratory Results 05/14/19 15:25: WBC 9.0, RBC 3.32 L, Hgb 9.7 L, Hct 30.6 L, MCV 92.2, MCH 29.2, MCHC 31.7 L, RDW Std Deviation 51.7 H, RDW Coeff of Roberto 15.6 H, Plt Count 198, MPV 9.8, Immature Gran % (Auto) 1.300 H, Neut % (Auto) 81.9 H, Lymph % (Auto) 6.8 L, Mineral % (Auto) 6.7, Eos % (Auto) 2.7, Baso % (Auto) 0.6, Absolute Neuts (auto) 7.4, Absolute Lymphs (auto) 0.61 L, Nucleated RBC % 0 05/14/19 15:25: Sodium 135 L, Potassium 3.8, Chloride 94 L, Carbon Dioxide 32.0, Anion Gap 9, BUN 20 H, Creatinine 4.23 H, Estim Creat Clear Calc 19.53, Est GFR (MDRD) Af Amer 19 L, Est GFR (MDRD) Non-Af 16 L, BUN/Creatinine Ratio 4.7 L, Glucose 363 H, Calcium 8.5 05/14/19 15:25: Lactic Acid 1.2 05/14/19 15:25: ESR 102 H 05/14/19 15:25: C-React Prot Ext Range 104.00 H 05/14/19 18:30: POC Glucose 376 H 05/14/19 21:17: POC Glucose 302 H 05/15/19 05:12: WBC 6.8, RBC 3.07 L, Hgb 8.8 L, Hct 28.7 L, MCV 93.5, MCH 28.7, MCHC 30.7 L, RDW Std Deviation 52.6 H, RDW Coeff of Roberto 15.3 H, Plt Count 180, MPV 9.8, Immature Gran % (Auto) 1.600 H, Neut % (Auto) 63.6, Lymph % (Auto) 18.9 L, Mineral % (Auto) 8.1, Eos % (Auto) 6.5 H, Baso % (Auto) 1.3 H, Absolute Neuts (auto) 4.3, Absolute Lymphs (auto) 1.28, Nucleated RBC % 0 05/15/19 05:12: Sodium 138, Potassium 3.9, Chloride 97 L, Carbon Dioxide 31.0, Anion Gap 10, BUN 32 H, Creatinine 5.15 H, Estim Creat Clear Calc 16.04, Est GFR (MDRD) Af Amer 15 L, Est GFR (MDRD) Non-Af 13 L, BUN/Creatinine Ratio 6.2 L, Glucose 254 H, Calcium 8.3 L 05/15/19 06:36: POC Glucose 243 H Current Medications Acetaminophen (Tylenol) 650 mg PO Q6H PRN PRN PRN Reason: Mild Pain (1-3)/Temp > 100.7 F Last Admin: 05/14/19 19:55 Dose: 650 mg Documented by: Aspirin (Ecotrin) 81 mg PO DAILY@0800 [facility] Last Admin: 05/15/19 08:25 Dose: 81 mg Documented by: Atorvastatin Calcium (Lipitor) 20 mg PO QHS [facility] Last Admin: 05/14/19 19:52 Dose: 20 mg Documented by: Cyclobenzaprine HCl (Flexeril) 10 mg PO TID PRN PRN PRN Reason: SPASMS Dextrose (D50w Syringe) 0 gm IV X1 PRN; Protocol PRN Reason: Hypoglycemia Fluticasone Propionate (Flonase Nasal [place]) 1 spray NASAL DAILY [facility] Furosemide (Lasix) 40 mg PO BIDLX [facility] Gabapentin (Neurontin) 300 mg PO BIDCM [facility] Last Admin: 05/15/19 08:26 Dose: 300 mg Documented by: Glucagon () 1 mg IM .X1 PRN PRN Reason: Hypoglycemia Guaifenesin (Robitussin Dm) 10 ml PO Q6H PRN PRN PRN Reason: CONGESTION Heparin Sodium (Porcine) (Heparin Na) 5,000 unit SC Q8 [facility] Last Admin: 05/15/19 05:17 Dose: 5,000 unit Documented by: Piperacillin Sod/Tazobactam (Sod 3.375 gm/ Sodium Chloride) 50 mls @ 12.5 mls/hr IV Q12 [facility] Last Infusion: 05/15/19 04:17 Dose: Infused Documented by: Influenza Virus Vaccine Quadrival (Flucelvax /Fluzone ) 0.5 ml IM .ONCE ONE Stop: 05/15/19 10:01 Insulin Human Lispro (Humalog Kwikpen (Bkc)) 15 unit SC TIDAC [facility] Last Admin: 05/15/19 08:23 Dose: 15 u Documented by: Insulin Human Lispro (Humalog Kwikpen ([facility])) 0 unit SC ACHS [facility]; Protocol Last Admin: 05/15/19 08:23 Dose: 6 u Documented by: Insulin Human Regular (Humulin R U-500 ([facility])) 50 units SC BIDAC [facility] Last Admin: 05/15/19 08:24 Dose: 50 units Documented by: Isosorbide Mononitrate (Imdur) 30 mg PO DAILY [facility] Lisinopril (Zestril) 20 mg PO DAILY [facility] Last Admin: 05/14/19 19:52 Dose: 20 mg Documented by: Metoprolol Tartrate (Lopressor (Beta Emmanuel)) 50 mg PO BID [facility] Last Admin: 05/14/19 19:52 Dose: 50 mg Documented by: Morphine Sulfate () 4 mg IV Q3H PRN PRN PRN Reason: Pain Score 6-10/10 Last Admin: 05/15/19 08:20 Dose: 4 mg Documented by: Multivit/Ca Carb/B Cmplx/FA/Prenat (Nephrocaps, Renaphro) [facility] Last Admin: 05/15/19 08:25 Dose: 1 capsule Documented by: Nutritional Formula (Lactose Free) (Glucerna Shake) 120 ml PO 4X/DAY [facility] Last Admin: 05/14/19 20:46 Dose: Not Given Documented by: Ondansetron HCl (Zofran) 4 mg IV Q8H PRN PRN PRN Reason: NAUSEA/VOMITING Pantoprazole Sodium (Protonix) 40 mg PO DAILY [facility] Pyridoxine HCl (Vitamin B-6) [facility] Last Admin: 05/15/19 08:26 Dose: 100 mg Documented by: Sevelamer Carbonate (Renvela) 2,400 mg PO TIDCM [facility] Last Admin: 05/15/19 08:26 Dose: 2,400 mg Documented by: Sodium Chloride () 10 - 40 ml IV UD PRN PRN Reason: SALINE FLUSH Last Admin: 05/15/19 08:20 Dose: 10 ml Documented by: Assessment/Plan All Active Problems (Last Updated 03/12/19 @ 17:43 by Kayla Tamayo MD) Diabetic foot infection (Acute) Bilateral foot wounds (Acute) Chest pain (Acute) 1. ESRD HD THS. Next dialysis Thurs 2. Diabetic foot infection iv antibx 3. Anemia TERESA therapy 4. HTN resume home BP meds 5. DM2 primary service mgmt 6. morbid obesity 7. Hyperphosphatemia, continue binders
--- NOTE | 2019-05-15 09:51 | CASEMGMT ---
Addendum entered by Lizet Parkinson 05/15/19 10:35: SW did let pt know that the LW is not completed. SW gave pt a blank copy of the LW and let him know if he would like to complete the LW form he can call this SW or call the SW department after discharge to set up an appointment to complete the document. Pt states understanding. TRENTON Nye Original Note: LW/POA forms scanned into summary tab of echart, however LW is incomplete. POA is complete, and pt checked the living will provision in the POA form. Pt has Charity Madden listed as healthcare POA. TRENTON Nye
[2019-05-15] MEDS: Pantoprazole Sodium 40 MG Tablet PO (10:04)
[2019-05-15] MEDS: Lisinopril 20 MG Tablet PO (10:04)
[2019-05-15] MEDS: Metoprolol Tartrate 50 MG Tablet PO ×2 (10:04→22:04)
[2019-05-15] MEDS: Isosorbide Mononitrate 30 MG Tablet PO (10:05)
[2019-05-15] MEDS: Furosemide 40 MG Tablet PO ×2 (10:05→17:31)
[2019-05-15] MEDS: Fluticasone 0.05% 1 SPRAY NASAL.SRY NASAL (10:06)
[2019-05-15] MEDS: Epoetin Alfa epbx 10,000 UNITS/ML 10000 UNIT SC (10:23)
--- NOTE | 2019-05-15 10:35 | CASEMGMT ---
RN CM Assessment Presentation: Bilateral foot wounds Intro role of CM and purpose of RN CM assessment to patient in room. Pt is awake, alert and able to particpate in assessment. Demographics, PCP and Pharmacy verified. Pt was recently in [facility], returned home with [facility] Pt does not know which [facility] is active, but has RN M-W-F and PT. Call to pt's nurse- Lucio to update that pt is in hospital. MANAGER STRATEGIC MARKETING is [facility] in [place] (see below for #'s). Pt does not know if he is able to return home and would like to consider returning to SNF. PCP: Dr. Washburn Specialists: Dr. Gregorio, Nephrology; Dr. Bravo, Podiatry; Dr. Wallace, ID Preferred Pharmacy: [facility] Insurance: [employer] [facility] Prescription Benefit: yes LNOK: Charity Gregorio Dialysis: [facility] T-- 6 am Waiver Program: Lobo Laws Mgr @ [facility]. Called to notify of admission- Patricia kay, reconditioning associatern call center able to provide service information. -Approved for 2 hours aide services M-W-F but has not been staffed yet. -Home Meals 14 every other week -[employer]- pt needs to call to have new one set up- he has information Living Arrangements: Pt lives in mobile home, 3 steps into home. Pt states he has difficulty with ADL's, needs assist. Transportation: [employer] provides transportation to Dialysis; Family drives to physician appts. DME: walker, rollator, BSC, cane, Rails in bathroom, shower chair, raised toilet seat -Oxygen through [facility] with concentrator, portable tank. Bipap @ HS. Pt states he wears 2L intermittent @ home, does not use to bleed in to Bipap at night per pt. - Blood glucose monitor JASMIN and has blood glucose machine at home. [facility]: [facility]- Lucio is RN CM for his Home Health ([phone]) PH: [phone] FX: [phone] Patient DC goals: return to [facility] SW consult: pt requests to be evaluated for return to SNF on dc. WILFREDO Gonzalze updated. DC PLAN: undetermined. Toi NORWOODN RN ACM
--- NOTE | 2019-05-15 12:01 | CASEMGMT ---
RN CM Assessment Presentation: Bilateral foot wounds Intro role of CM and purpose of RN CM assessment to patient in room. Pt is awake, alert and able to particpate in assessment. Demographics, PCP and Pharmacy verified. Pt was recently in [facility], returned home with [facility]. Pt does not know which [facility] is active, but has RN M-W-F and PT. Call to pt's nurse- Lucio to update that pt is in hospital. CHARGING PLUG PLACER is [facility] in [place] (see below for #'s). Pt does not know if he is able to return home and would like to consider returning to SNF. PCP: Dr. Washburn Specialists: Dr. Gregorio, Nephrology; Dr. Bravo, Podiatry; Dr. Wallace, ID Preferred Pharmacy: [facility] Insurance: [facility] Prescription Benefit: yes LNOK: Charity Gregorio Dialysis: [facility] T-- 6 am Waiver Program: Lobo Laws Mgr @ [facility]. Called to notify of admission- Patricia kay, second butlersalesperson furs able to provide service information. -Approved for 2 hours aide services M-W-F but has not been staffed yet. -Home Meals 14 every other week -[employer]- pt needs to call to have new one set up- he has information Living Arrangements: Pt lives in mobile home, 3 steps into home. Pt states he has difficulty with ADL's, needs assist. Transportation: [employer] provides transportation to Dialysis; Family drives to physician appts. DME: walker, rollator, BSC, cane, Rails in bathroom, shower chair, raised toilet seat -Oxygen with concentrator, portable tank. Bipap @ HS. Pt states he wears 2L intermittent @ home, does not use to bleed in to Bipap at night per pt. - Blood glucose monitor JASMIN and has blood glucose machine at home. [facility]: [facility]- Lucio is RN LIZETTE for his Home Health ([phone]) PH: [phone] FX: [phone] Patient DC goals: return to [facility] SW consult: pt requests to be evaluated for return to SNF on dc. WILFREDO Gonzalez updated. DC PLAN: undetermined. Toi TORRES RN ACM
[2019-05-15 12:25] LABS: Bedside Glucose 204 mg/dL (70-110)
--- NOTE | 2019-05-15 12:55 | PCM.HP.ID ---
Problem List (1) Osteomyelitis Status: Chronic Qualifiers: Osteomyelitis type: subacute Reason for Consult: osteo Consulted by: Dr. Cruz History of Present Illness: The patient is a 48 year old M with uncontrolled DM, neuropathy, and R foot osteo, presented with 1-2 days of worsening R lateral plantar foot ulcer with redness/drainage/pain/foul odor. Has been following with Dr. Dodson and Dr. Bravo for this ulcer for several months. With worsening of foot, came to ED. No fever or chills. Admitted on dose of vanc and zosyn. Plan is for surgery. Feeling better since admit. Full ROS performed and neg except as noted above. - Medical History Past Medical History (Chronic Problems): Chronic Problems (Last Updated 03/12/19 @ 17:43 by Kayla Tamayo MD) Ulcer of right foot with fat layer exposed (Chronic) Chronic ulcer of left foot with fat layer exposed (Chronic) Localized edema (Chronic) Malnutrition (Chronic) Type 2 diabetes mellitus with diabetic polyneuropathy (Chronic) Osteomyelitis (Chronic) Tailor's bunion of right foot (Chronic) Tailor's bunion of left foot (Chronic) Osteomyelitis (Chronic) differential diagnosis Peripheral vascular disease (Chronic) Toe fracture, right (Chronic) Non-pressure chronic ulcer of other part of right foot with fat layer exposed (Chronic) Non-pressure chronic ulcer of other part of left foot with fat layer exposed (Chronic) Type 1 diabetes mellitus (Chronic) Morbid obesity with BMI of 40.0-44.9, adult (Chronic) Noncompliance (Chronic) CHF (congestive heart failure) (Chronic) Abnormal stress test (Chronic) TIA (transient ischemic attack) (Chronic) Pulmonary hypertension (Chronic) Morbid obesity with BMI of 40.0-44.9, adult (Chronic) End stage renal disease on dialysis (Chronic) Chronic respiratory failure with hypoxia (Chronic) HTN (hypertension) (Chronic) Hyperlipidemia (Chronic) Diabetic neuropathy (Chronic) Anemia (Chronic) SELMA (obstructive sleep apnea) (Chronic) Allergies/Adverse Reactions: Allergies venom-honey bee [bee venom (honey bee)] Allergy (Verified 05/14/19 14:50) Swelling sulfamethoxazole [From Bactrim] Adverse Reaction (Verified 05/14/19 14:50) Upset Stomach trimethoprim [From Bactrim] Adverse Reaction (Verified 05/14/19 14:50) Upset Stomach Home Medications: Ambulatory Orders Medication Instructions Recorded Atorvastatin Calcium [Lipitor] 20 mg PO QHS 10/11/17 Pyridoxine HCl [Vitamin B-6] 100 mg PO DAILY 10/11/17 Vits A,C,E/Lutein/Minerals 1 ea PO DAILY 10/11/17 [Ocuvite with Lutein Tablet] Folic Acid/Vitamin B Comp W-C 1 cap PO DAILY 10/27/17 [Nephrocaps, Renaphro] albuterol sulfate HFA 90 2 puff INHALATION Q4H PRN #18 g 02/26/18 mcg/actuation aerosol inhaler Aspirin E.C. [Ecotrin] 81 mg PO DAILY 03/23/18 Cyclobenzaprine HCl 10 mg PO TID PRN PRN 03/23/18 Fluticasone 0.05% [Flonase Nasal 1 spray NASAL DAILY 03/23/18 [place]] Gabapentin [Neurontin] 300 mg PO BID 03/23/18 isosorbide mononitrate ER 30 mg 30 mg PO DAILY #30 tab 07/24/18 tablet,extended release 24 hr Acetaminophen [Tylenol Tablet] 650 mg PO Q6H PRN PRN tab 09/19/18 Guaifenesin Dm [Robitussin Dm] 10 ml PO Q6H PRN PRN #1 bottle 11/21/18 Furosemide [Lasix] 40 mg PO BID 03/12/19 Metoprolol Tartrate [Lopressor 50 mg PO BID 03/12/19 (beta khoa)] Omeprazole 40 mg PO DAILY 03/12/19 proMETHazine tablet [Phenergan 25 mg PO TID PRN 03/13/19 tablet] Collagenase [Santyl] 1 applic TOPICAL DAILY tube 03/15/19 Insulin Lispro [Humalog KwikPen] 15 unit SUBCUT TIDAC insuln.pen 03/15/19 Humulin R U-500 ([facility]) 50 units SUBCUT BIDAC 03/20/19 Lisinopril [Zestril] 20 mg PO DAILY tab 03/20/19 Sevelamer HCl [Renagel] 2,400 mg PO TID #0 03/20/19 Cephalexin 500 mg PO BID 05/14/19 - Social History Tobacco Use: non-smoker Vital Signs Temp Pulse Resp BP Pulse Ox 97.8 F 64 18 161/81 H 98 11/13/19 08:13 05/15/19 10:04 05/15/19 08:13 05/15/19 10:04 05/15/19 08:13 Oxygen Flow Rate (L/min) 2 Oxygen Delivery Method Nasal Cannula Weight: 119.476 kg Body Mass Index (BMI) 41.2 Finger Stick Blood Glucose 191 Microbiology Past 72 Hours 05/14/19 22:28 Gram Stain - Final Wound - Aerobic & Anaerobic Swabs 05/14/19 22:20 Gram Stain - Final Wound - Aerobic & Anaerobic Swabs Wound Culture - Preliminary Gram negative renee Laboratory Tests Past 24 Hrs 05/14/19 05/14/19 05/14/19 15:25 15:25 15:25 WBC 9.0 RBC 3.32 L Hgb 9.7 L Hct 30.6 L MCV 92.2 MCH 29.2 MCHC 31.7 L RDW Std Deviation 51.7 H RDW Coeff of Roberto 15.6 H Plt Count 198 MPV 9.8 Immature Gran % (Auto) 1.300 H Neut % (Auto) 81.9 H Lymph % (Auto) 6.8 L [place] % (Auto) 6.7 Eos % (Auto) 2.7 Baso % (Auto) 0.6 Absolute Neuts (auto) 7.4 Absolute Lymphs (auto) 0.61 L Nucleated RBC % 0 ESR Sodium 135 L Potassium 3.8 Chloride 94 L Carbon Dioxide 32.0 Anion Gap 9 BUN 20 H Creatinine 4.23 H Estim Creat Clear Calc 19.53 Est GFR (MDRD) Af Amer 19 L Est GFR (MDRD) Non-Af 16 L BUN/Creatinine Ratio 4.7 L Glucose 363 H Lactic Acid 1.2 Calcium 8.5 C-React Prot Ext Range 05/14/19 05/14/19 05/15/19 15:25 15:25 05:12 WBC 6.8 RBC 3.07 L Hgb 8.8 L Hct 28.7 L MCV 93.5 MCH 28.7 MCHC 30.7 L RDW Std Deviation 52.6 H RDW Coeff of Roberto 15.3 H Plt Count 180 MPV 9.8 Immature Gran % (Auto) 1.600 H Neut % (Auto) 63.6 Lymph % (Auto) 18.9 L [place] % (Auto) 8.1 Eos % (Auto) 6.5 H Baso % (Auto) 1.3 H Absolute Neuts (auto) 4.3 Absolute Lymphs (auto) 1.28 Nucleated RBC % 0 ESR 102 H Sodium Potassium Chloride Carbon Dioxide Anion Gap BUN Creatinine Estim Creat Clear Calc Est GFR (MDRD) Af Amer Est GFR (MDRD) Non-Af BUN/Creatinine Ratio Glucose Lactic Acid Calcium C-React Prot Ext Range 104.00 H 05/15/19 05:12 WBC RBC Hgb Hct MCV MCH MCHC RDW Std Deviation RDW Coeff of Roberto Plt Count MPV Immature Gran % (Auto) Neut % (Auto) Lymph % (Auto) [place] % (Auto) Eos % (Auto) Baso % (Auto) Absolute Neuts (auto) Absolute Lymphs (auto) Nucleated RBC % ESR Sodium 138 Potassium 3.9 Chloride 97 L Carbon Dioxide 31.0 Anion Gap 10 BUN 32 H Creatinine 5.15 H Estim Creat Clear Calc 16.04 Est GFR (MDRD) Af Amer 15 L Est GFR (MDRD) Non-Af 13 L BUN/Creatinine Ratio 6.2 L Glucose 254 H Lactic Acid Calcium 8.3 L C-React Prot Ext Range - Other Studies Radiology: [] reviewed Other Studies: [] Route of nutrition/ use of supplements: [] Nutritional Intake: [] IV Site: [] Kuo Catheter: [] - Physical Exam General: Alert, Oriented x3, Cooperative, No apparent distress HEENT: Atraumatic, PERRLA, EOMI Neck: Supple, No Nodes Lungs: Clear to auscultation, Normal air movement Cardiovascular: Regular rate, Regular Rhythm Abdomen: Soft, Non Tender, Non-Distended Extremities: Edema Skin: Ulcer/ Wound - R foot wrapped IV Site: Peripheral, without redness Musculoskeletal: No Tenderness to Palpation of Joints or Extremities Neurological: Cranial nerves II-XII grossly intact - Assessment/Plan Antibiotics: [] Assessment/Plan: [] Active and Suspected Problems (Last Updated 03/12/19 @ 17:43 by Kayla Tamayo MD) Diabetic foot infection (Acute) Bilateral foot wounds (Acute) R foot osteo - wound cx with GNR. Surgery planned. Prior cx with enterococcus, bacillus, corynebacteria, anaerobes. Cont zosyn. Will follow. Thank you.
[2019-05-15] MEDS: Glucerna Shake 120 ML LIQUID PO (13:17)
--- NOTE | 2019-05-15 14:07 | CASEMGMT ---
Social Work Note SW reviewed notes and it appears pt will have surgery. WILFREDO met with pt and introduced self and role at [facility]. Pt is alert and oriented x3. SW informed pt that this worker will meet with pt once pt has surgery to determine if SNF level of care is appropriate for pt. Pt states that if able he would like to return to [facility]. SW did provide pt with list of SNF that accept pt's insurance and encouraged pt to review list and have other options in the event [facility] is not able to accept pt back. Pt states understanding. SW will continue to follow pt. WILFREDO will meet with pt after pt has surgery and determine appropriate safe discharge. 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
--- NOTE | 2019-05-15 14:36 | PCM.PROGNOTE ---
<Modesta Stoddard - Last Filed: 05/15/19 14:45> Patient Problems: Active and Suspected Problems (Last Updated 03/12/19 @ 17:43 by Kayla Tamayo MD) Diabetic foot infection (Acute) Bilateral foot wounds (Acute) Subjective: Patient seen and examined. Bilateral feet dressings changed this morning. Patient denies significant pain. Denies fever, chills. - Physical Exam Vitals/I&O's: Vital Signs Temp Pulse Resp BP Pulse Ox 97.6 F L 62 18 169/68 H 100 05/15/19 13:09 05/15/19 13:09 05/15/19 13:09 05/15/19 13:09 05/15/19 13:09 Oxygen Flow Rate (L/min) 2 Oxygen Delivery Method Nasal Cannula Weight: 263 lb 6.4 oz Body Mass Index (BMI) 41.2 Finger Stick Blood Glucose 191 Intake and Output for Last 24 Hours 05/13/19 05/14/19 05/15/19 23:59 23:59 23:59 Intake Total 100 / 420 1655 / 1655 Output Total 250 / 250 Balance 100 / 420 1405 / 1405 General: Alert, Oriented x3, Cooperative HEENT: Atraumatic, PERRLA, EOMI, Normocephalic Neck: Supple, No JVD, Negative Carotid Bruits Lungs: Clear to auscultation, Normal air movement Cardiovascular: Regular rate, Regular Rhythm, Normal S1, Normal S2, No murmurs Abdomen: Bowel Sounds Present, Soft, Non Tender, Non-Distended, Obese Extremities: No clubbing, No cyanosis, No edema, Capillary Refill Less than 3 Seconds Skin: No rashes, No breakdown, - - Bilateral feet dressings clean dry and intact. Musculoskeletal: No Tenderness to Palpation of Joints or Extremities Neurological: Cranial nerves II-XII grossly intact, Neuro grossly intact Psych/Mental Status: Normal Affect, Appropriate Microbiology Past 72 Hours 05/14/19 22:28 Wound - Aerobic & Anaerobic Swabs Gram Stain - Final 05/14/19 22:20 Wound - Aerobic & Anaerobic Swabs Gram Stain - Final 05/14/19 22:20 Wound - Aerobic & Anaerobic Swabs Wound Culture - Preliminary Gram negative renee Laboratory Results 05/14/19 15:25: WBC 9.0, RBC 3.32 L, Hgb 9.7 L, Hct 30.6 L, MCV 92.2, MCH 29.2, MCHC 31.7 L, RDW Std Deviation 51.7 H, RDW Coeff of Rboerto 15.6 H, Plt Count 198, MPV 9.8, Immature Gran % (Auto) 1.300 H, Neut % (Auto) 81.9 H, Lymph % (Auto) 6.8 L, [place] % (Auto) 6.7, Eos % (Auto) 2.7, Baso % (Auto) 0.6, Absolute Neuts (auto) 7.4, Absolute Lymphs (auto) 0.61 L, Nucleated RBC % 0 05/14/19 15:25: Sodium 135 L, Potassium 3.8, Chloride 94 L, Carbon Dioxide 32.0, Anion Gap 9, BUN 20 H, Creatinine 4.23 H, Estim Creat Clear Calc 19.53, Est GFR (MDRD) Af Amer 19 L, Est GFR (MDRD) Non-Af 16 L, BUN/Creatinine Ratio 4.7 L, Glucose 363 H, Calcium 8.5 05/14/19 15:25: Lactic Acid 1.2 05/14/19 15:25: ESR 102 H 05/14/19 15:25: C-React Prot Ext Range 104.00 H 05/14/19 18:30: POC Glucose 376 H 05/14/19 21:17: POC Glucose 302 H 05/15/19 05:12: WBC 6.8, RBC 3.07 L, Hgb 8.8 L, Hct 28.7 L, MCV 93.5, MCH 28.7, MCHC 30.7 L, RDW Std Deviation 52.6 H, RDW Coeff of Roberto 15.3 H, Plt Count 180, MPV 9.8, Immature Gran % (Auto) 1.600 H, Neut % (Auto) 63.6, Lymph % (Auto) 18.9 L, [place] % (Auto) 8.1, Eos % (Auto) 6.5 H, Baso % (Auto) 1.3 H, Absolute Neuts (auto) 4.3, Absolute Lymphs (auto) 1.28, Nucleated RBC % 0 05/15/19 05:12: Sodium 138, Potassium 3.9, Chloride 97 L, Carbon Dioxide 31.0, Anion Gap 10, BUN 32 H, Creatinine 5.15 H, Estim Creat Clear Calc 16.04, Est GFR (MDRD) Af Amer 15 L, Est GFR (MDRD) Non-Af 13 L, BUN/Creatinine Ratio 6.2 L, Glucose 254 H, Calcium 8.3 L 05/15/19 06:36: POC Glucose 243 H 05/15/19 12:00: POC Glucose 204 H Current Medications Acetaminophen (Tylenol) 650 mg PO Q6H PRN PRN PRN Reason: Mild Pain (1-3)/Temp > 100.7 F Last Admin: 05/14/19 19:55 Dose: 650 mg Documented by: Aspirin (Ecotrin) 81 mg PO DAILY@0800 [facility] Last Admin: 05/15/19 08:25 Dose: 81 mg Documented by: Atorvastatin Calcium (Lipitor) 20 mg PO QHS [facility] Last Admin: 05/14/19 19:52 Dose: 20 mg Documented by: Cyclobenzaprine HCl (Flexeril) 10 mg PO TID PRN PRN PRN Reason: SPASMS Dextrose (D50w Syringe) 0 gm IV X1 PRN; Protocol PRN Reason: Hypoglycemia Fluticasone Propionate (Flonase Nasal [place]) 1 spray NASAL DAILY [facility] Last Admin: 05/15/19 10:06 Dose: 1 spray Documented by: Furosemide (Lasix) 40 mg PO BIDLX [facility] Last Admin: 05/15/19 10:05 Dose: 40 mg Documented by: Gabapentin (Neurontin) 300 mg PO BIDCM [facility] Last Admin: 05/15/19 08:26 Dose: 300 mg Documented by: Glucagon () 1 mg IM .X1 PRN PRN Reason: Hypoglycemia Guaifenesin (Robitussin Dm) 10 ml PO Q6H PRN PRN PRN Reason: CONGESTION Heparin Sodium (Porcine) (Heparin Na) 5,000 unit SC Q8 [facility] Last Admin: 05/15/19 13:18 Dose: 5,000 unit Documented by: Piperacillin Sod/Tazobactam (Sod 3.375 gm/ Sodium Chloride) 50 mls @ 12.5 mls/hr IV Q12 [facility] Last Infusion: 05/15/19 14:14 Dose: Infused Documented by: Insulin Human Lispro (Humalog Kwikpen ([facility])) 15 unit SC TIDAC [facility] Last Admin: 05/15/19 12:03 Dose: 15 u Documented by: Insulin Human Lispro (Humalog Kwikpen ([facility])) 0 unit SC ACHS [facility]; Protocol Last Admin: 05/15/19 12:04 Dose: 3 u Documented by: Insulin Human Regular (Humulin R U-500 ([facility])) 50 units SC BIDAC [facility] Last Admin: 05/15/19 08:24 Dose: 50 units Documented by: Isosorbide Mononitrate (Imdur) 30 mg PO DAILY [facility] Last Admin: 05/15/19 10:05 Dose: 30 mg Documented by: Lisinopril (Zestril) 20 mg PO DAILY [facility] Last Admin: 05/15/19 10:04 Dose: 20 mg Documented by: Metoprolol Tartrate (Lopressor (Beta Emmanuel)) 50 mg PO BID [facility] Last Admin: 05/15/19 10:04 Dose: 50 mg Documented by: Morphine Sulfate () 4 mg IV Q3H PRN PRN PRN Reason: Pain Score 6-10/10 Last Admin: 05/15/19 13:17 Dose: 4 mg Documented by: Multivit/Ca Carb/B Cmplx/FA/Prenat (Nephrocaps, Renaphro) 1 capsule PO DAILYCM [facility] Last Admin: 05/15/19 08:25 Dose: 1 capsule Documented by: Nutritional Formula (Lactose Free) (Glucerna Shake) 120 ml PO 4X/DAY [facility] Last Admin: 05/15/19 13:17 Dose: 120 ml Documented by: Ondansetron HCl (Zofran) 4 mg IV Q8H PRN PRN PRN Reason: NAUSEA/VOMITING Pantoprazole Sodium (Protonix) 40 mg PO DAILY [facility] Last Admin: 05/15/19 10:04 Dose: 40 mg Documented by: Pyridoxine HCl (Vitamin B-6) 100 mg PO DAILYCM [facility] Last Admin: 05/15/19 08:26 Dose: 100 mg Documented by: Sevelamer Carbonate (Renvela) 2,400 mg PO TIDCM [facility] Last Admin: 05/15/19 12:02 Dose: 2,400 mg Documented by: Sodium Chloride () 10 - 40 ml IV UD PRN PRN Reason: SALINE FLUSH Last Admin: 05/15/19 13:18 Dose: 10 ml Documented by: Medical Necessity - Tobacco Use Smoking Status: Never smoker Tobacco Use: Non-smoker Assessment/Plan All Active Problems (Last Updated 03/12/19 @ 17:43 by Kayla Tamayo MD) Diabetic foot infection (Acute) Bilateral foot wounds (Acute) Chest pain (Acute) 1. Right foot neuropathic ulceration with cellulitis and right foot osteomyelitis-ID and podiatry following. Plan for surgery per podiatry. Continue daily dressing changes. Wound RN consult. Continue IV Zosyn. Follow wound cultures. Patient has had chronic bilateral diabetic/neuropathic foot ulcerations in the past, follows with wound center and podiatry, prior intervention with vascular surgery. 2. Chronic diastolic CHF-continue home aspirin, statin, metoprolol, lisinopril, Lasix regimen. 3. End-stage renal disease on hemodialysis Monday, , Monday-follows with Dr. Gregorio. 4. Hypertension-continue isosorbide, Lasix, metoprolol, lisinopril. 5. Hyperlipidemia-continue statin regimen. 6. Type 1 diabetes mellitus with neuropathy-continue home insulin regimen. Hemoglobin A1c 03/12/19 12%. 7. Morbid obesity-encourage diet and lifestyle modifications. 8. GERD-continue PPI. 9. Anemia of chronic disease-stable, trend CBC. 10. SELMA-continue BiPAP nightly. 11. Chronic hypoxic respiratory failure-continue supplement oxygen to maintain O2 above 90%. DVT prophylaxis- heparin sc This patient was seen by LATASHA West under the supervision of Dr. Cruz. <Gary Cruz F - Last Filed: 05/15/19 16:23> - Physical Exam Vitals/I&O's: Vital Signs Temp Pulse Resp BP Pulse Ox 97.6 F L 62 18 169/68 H 100 05/15/19 13:09 05/15/19 13:09 05/15/19 13:09 05/15/19 13:09 05/15/19 13:09 Oxygen Flow Rate (L/min) 2 Oxygen Delivery Method Nasal Cannula Weight: 263 lb 6.392 oz Body Mass Index (BMI) 41.2 Finger Stick Blood Glucose 191 Intake and Output for Last 24 Hours 05/13/19 05/14/19 05/15/19 23:59 23:59 23:59 Intake Total 100 / 420 1655 / 1655 Output Total 250 / 250 Balance 100 / 420 1405 / 1405 Microbiology Past 72 Hours 05/14/19 22:28 Wound - Aerobic & Anaerobic Swabs Gram Stain - Final 05/14/19 22:20 Wound - Aerobic & Anaerobic Swabs Gram Stain - Final 05/14/19 22:20 Wound - Aerobic & Anaerobic Swabs Wound Culture - Preliminary Gram negative renee Laboratory Results 05/14/19 15:25: ESR 102 H 05/14/19 15:25: C-React Prot Ext Range 104.00 H 05/14/19 18:30: POC Glucose 376 H 05/14/19 21:17: POC Glucose 302 H 05/15/19 05:12: WBC 6.8, RBC 3.07 L, Hgb 8.8 L, Hct 28.7 L, MCV 93.5, MCH 28.7, MCHC 30.7 L, RDW Std Deviation 52.6 H, RDW Coeff of Roberto 15.3 H, Plt Count 180, MPV 9.8, Immature Gran % (Auto) 1.600 H, Neut % (Auto) 63.6, Lymph % (Auto) 18.9 L, [place] % (Auto) 8.1, Eos % (Auto) 6.5 H, Baso % (Auto) 1.3 H, Absolute Neuts (auto) 4.3, Absolute Lymphs (auto) 1.28, Nucleated RBC % 0 05/15/19 05:12: Sodium 138, Potassium 3.9, Chloride 97 L, Carbon Dioxide 31.0, Anion Gap 10, BUN 32 H, Creatinine 5.15 H, Estim Creat Clear Calc 16.04, Est GFR (MDRD) Af Amer 15 L, Est GFR (MDRD) Non-Af 13 L, BUN/Creatinine Ratio 6.2 L, Glucose 254 H, Calcium 8.3 L 05/15/19 06:36: POC Glucose 243 H 05/15/19 12:00: POC Glucose 204 H Current Medications Acetaminophen (Tylenol) 650 mg PO Q6H PRN PRN PRN Reason: Mild Pain (1-3)/Temp > 100.7 F Last Admin: 05/14/19 19:55 Dose: 650 mg Documented by: Aspirin (Ecotrin) 81 mg PO DAILY@0800 [facility] Last Admin: 05/15/19 08:25 Dose: 81 mg Documented by: Atorvastatin Calcium (Lipitor) 20 mg PO QHS [facility] Last Admin: 05/14/19 19:52 Dose: 20 mg Documented by: Cyclobenzaprine HCl (Flexeril) 10 mg PO TID PRN PRN PRN Reason: SPASMS Dextrose (D50w Syringe) 0 gm IV X1 PRN; Protocol PRN Reason: Hypoglycemia Fluticasone Propionate (Flonase Nasal [place]) 1 spray NASAL DAILY [facility] Last Admin: 05/15/19 10:06 Dose: 1 spray Documented by: Furosemide (Lasix) 40 mg PO BIDLX [facility] Last Admin: 05/15/19 10:05 Dose: 40 mg Documented by: Gabapentin (Neurontin) 300 mg PO BIDCM [facility] Last Admin: 05/15/19 08:26 Dose: 300 mg Documented by: Glucagon () 1 mg IM .X1 PRN PRN Reason: Hypoglycemia Guaifenesin (Robitussin Dm) 10 ml PO Q6H PRN PRN PRN Reason: CONGESTION Heparin Sodium (Porcine) (Heparin Na) 5,000 unit SC Q8 [facility] Last Admin: 05/15/19 13:18 Dose: 5,000 unit Documented by: Piperacillin Sod/Tazobactam (Sod 3.375 gm/ Sodium Chloride) 50 mls @ 12.5 mls/hr IV Q12 [facility] Last Infusion: 05/15/19 14:14 Dose: Infused Documented by: Insulin Human Lispro (Humalog Kwikpen ([facility])) 15 unit SC TIDAC [facility] Last Admin: 05/15/19 12:03 Dose: 15 u Documented by: Insulin Human Lispro (Humalog Kwikpen ([facility])) 0 unit SC ACHS [facility]; Protocol Last Admin: 05/15/19 12:04 Dose: 3 u Documented by: Insulin Human Regular (Humulin R U-500 ([facility])) 50 units SC BIDAC [facility] Last Admin: 05/15/19 08:24 Dose: 50 units Documented by: Isosorbide Mononitrate (Imdur) 30 mg PO DAILY [facility] Last Admin: 05/15/19 10:05 Dose: 30 mg Documented by: Lisinopril (Zestril) 20 mg PO DAILY [facility] Last Admin: 05/15/19 10:04 Dose: 20 mg Documented by: Metoprolol Tartrate (Lopressor (Beta Emmanuel)) 50 mg PO BID [facility] Last Admin: 05/15/19 10:04 Dose: 50 mg Documented by: Morphine Sulfate () 4 mg IV Q3H PRN PRN PRN Reason: Pain Score 6-10/10 Last Admin: 05/15/19 13:17 Dose: 4 mg Documented by: Multivit/Ca Carb/B Cmplx/FA/Prenat (Nephrocaps, [facility]aphro) [facility] Last Admin: 05/15/19 08:25 Dose: 1 capsule Documented by: Ondansetron HCl (Zofran) 4 mg IV Q8H PRN PRN PRN Reason: NAUSEA/VOMITING Pantoprazole Sodium (Protonix) 40 mg PO DAILY [facility] Last Admin: 05/15/19 10:04 Dose: 40 mg Documented by: Pyridoxine HCl (Vitamin B-6) [facility] Last Admin: 05/15/19 08:26 Dose: 100 mg Documented by: Sevelamer Carbonate (Renvela) 2,400 mg PO TIDCM [facility] Last Admin: 05/15/19 12:02 Dose: 2,400 mg Documented by: Sodium Chloride () 10 - 40 ml IV UD PRN PRN Reason: SALINE FLUSH Last Admin: 05/15/19 13:18 Dose: 10 ml Documented by: Code Visit Addendum: Dr. Cruz I personally examined the patient and reviewed the chart. I agree with the above. 48-year-old male with diabetic neuropathy, end-stage renal disease on dialysis, presents with right lower extremity osteo, as well as a diabetic ulcer and cellulitis. Previous cultures grew enterococcus which was sensitive to Zosyn which she has been continued on. Appreciate nephrology and ID assistance. Plan will be for the OR by podiatry, blood cultures are pending. Inpatient E&M: 34887 Subs Hosp L2
[2019-05-15 17:00] LABS: Bedside Glucose 116 mg/dL (70-110)
--- NOTE | 2019-05-15 17:32 | PCM.PROGNOTE ---
Patient Problems: Active and Suspected Problems (Last Updated 03/12/19 @ 17:43 by Kayla Tamayo MD) Diabetic foot infection (Acute) Bilateral foot wounds (Acute) Subjective: This 48 year old M with significant past medical history of diabetes with neuropathy, h/o anemia, chronic kidney disease on hemodialysis, peripheral vascular disease status post intervention, hypertension, hyperlipidemia, sleep apnea, obesity was seen for follow-up of right foot ulcer infection with worsening status and osteomyelitis development and cellulitis. He is also seen for left foot blister that is now a ulcer. He denies fever, chill, nausea, vomiting this evening. His pain is rated as a 6-8 out of 10. He does report he feels better since he has been on IV antibiotics over the past evening. He is amendable to proceed with surgical intervention even if it is a partial foot amputation. - Physical Exam Vitals/I&O's: Vital Signs Temp Pulse Resp BP Pulse Ox 97.6 F L 62 18 169/68 H 100 05/15/19 13:09 05/15/19 13:09 05/15/19 13:09 05/15/19 13:09 05/15/19 13:09 Oxygen Flow Rate (L/min) 2 Oxygen Delivery Method Nasal Cannula Weight: 119.476 kg Body Mass Index (BMI) 41.2 Finger Stick Blood Glucose 191 Intake and Output for Last 24 Hours 05/13/19 05/14/19 05/15/19 23:59 23:59 23:59 Intake Total 100 / 420 1655 / 1655 Output Total 250 / 250 Balance 100 / 420 1405 / 1405 General: Alert, Oriented x3, Cooperative HEENT: Atraumatic Extremities: No cyanosis, Capillary Refill Less than 3 Seconds, No Calf Tenderness - Negative Radha and Adan sign bilateral, Diminished Peripheral Pulses, Edema - Bilateral lower extremities, - - Dorsal contraction of lesser toes and prominent fifth metatarsal head bilateral Skin: Ulcer/ Wound - Right foot: There is odor without chayo purulence on expression. The ulcer is necrotic and fibrous and devitalized with positive probe to bone and exposed devitalized muscle and fascia tissue. The erythema extends to the dorsal forefoot and is less intense compared to yesterday and there is hyperpigmentation component. The adjacent tissue is not boggy or fluctuant. There is peripheral skin peeling and lateral fifth metatarsal head and discontinuity that also appears to be associate with fifth metatarsal head. The left foot does not have any purulence, odor, erythema, streaking, or infection, maceration. After the debridement of the drain bulla site there is no necrotic or moist tissue noted. The peripheral skin on both feet is atrophic and hairless. Musculoskeletal: No Tenderness to Palpation of Joints or Extremities, Muscle Wasting Neurological: - - Lack of normal epicritic sensation light touch is consistent with neuropathy status bilateral lower extremities and he does also have hypersensitivity and pain with ulcer manipulation Psych/Mental Status: Normal Affect, Appropriate Microbiology Past 72 Hours 05/14/19 22:28 Wound - Aerobic & Anaerobic Swabs Gram Stain - Final 05/14/19 22:20 Wound - Aerobic & Anaerobic Swabs Gram Stain - Final 05/14/19 22:20 Wound - Aerobic & Anaerobic Swabs Wound Culture - Preliminary Gram negative renee Laboratory Results 05/14/19 18:30: POC Glucose 376 H 05/14/19 21:17: POC Glucose 302 H 05/15/19 05:12: WBC 6.8, RBC 3.07 L, Hgb 8.8 L, Hct 28.7 L, MCV 93.5, MCH 28.7, MCHC 30.7 L, RDW Std Deviation 52.6 H, RDW Coeff of Roberto 15.3 H, Plt Count 180, MPV 9.8, Immature Gran % (Auto) 1.600 H, Neut % (Auto) 63.6, Lymph % (Auto) 18.9 L, [place] % (Auto) 8.1, Eos % (Auto) 6.5 H, Baso % (Auto) 1.3 H, Absolute Neuts (auto) 4.3, Absolute Lymphs (auto) 1.28, Nucleated RBC % 0 05/15/19 05:12: Sodium 138, Potassium 3.9, Chloride 97 L, Carbon Dioxide 31.0, Anion Gap 10, BUN 32 H, Creatinine 5.15 H, Estim Creat Clear Calc 16.04, Est GFR (MDRD) Af Amer 15 L, Est GFR (MDRD) Non-Af 13 L, BUN/Creatinine Ratio 6.2 L, Glucose 254 H, Calcium 8.3 L 05/15/19 06:36: POC Glucose 243 H 05/15/19 12:00: POC Glucose 204 H 05/15/19 16:26: POC Glucose 116 H Current Medications Acetaminophen (Tylenol) 650 mg PO Q6H PRN PRN PRN Reason: Mild Pain (1-3)/Temp > 100.7 F Last Admin: 05/14/19 19:55 Dose: 650 mg Documented by: Aspirin (Ecotrin) 81 mg PO DAILY@0800 [facility] Last Admin: 05/15/19 08:25 Dose: 81 mg Documented by: Atorvastatin Calcium (Lipitor) 20 mg PO QHS [facility] Last Admin: 05/14/19 19:52 Dose: 20 mg Documented by: Cyclobenzaprine HCl (Flexeril) 10 mg PO TID PRN PRN PRN Reason: SPASMS Dextrose (D50w Syringe) 0 gm IV X1 PRN; Protocol PRN Reason: Hypoglycemia Fluticasone Propionate (Flonase Nasal [place]) 1 spray NASAL DAILY [facility] Last Admin: 05/15/19 10:06 Dose: 1 spray Documented by: Furosemide (Lasix) 40 mg PO BIDLX [facility] Last Admin: 05/15/19 10:05 Dose: 40 mg Documented by: Gabapentin (Neurontin) 300 mg PO BIDCM [facility] Last Admin: 05/15/19 08:26 Dose: 300 mg Documented by: Glucagon () 1 mg IM .X1 PRN PRN Reason: Hypoglycemia Guaifenesin (Robitussin Dm) 10 ml PO Q6H PRN PRN PRN Reason: CONGESTION Heparin Sodium (Porcine) (Heparin Na) 5,000 unit SC Q8 [facility] Last Admin: 05/15/19 13:18 Dose: 5,000 unit Documented by: Piperacillin Sod/Tazobactam (Sod 3.375 gm/ Sodium Chloride) 50 mls @ 12.5 mls/hr IV Q12 [facility] Last Infusion: 05/15/19 14:14 Dose: Infused Documented by: Insulin Human Lispro (Humalog Kwikpen (Bkc)) 15 unit SC TIDAC [facility] Last Admin: 05/15/19 12:03 Dose: 15 u Documented by: Insulin Human Lispro (Humalog Kwikpen (Bkc)) 0 unit SC ACHS [facility]; Protocol Last Admin: 05/15/19 12:04 Dose: 3 u Documented by: Insulin Human Regular (Humulin R U-500 ([facility])) 50 units SC BIDAC [facility] Last Admin: 05/15/19 08:24 Dose: 50 units Documented by: Isosorbide Mononitrate (Imdur) 30 mg PO DAILY [facility] Last Admin: 05/15/19 10:05 Dose: 30 mg Documented by: Lisinopril (Zestril) 20 mg PO DAILY [facility] Last Admin: 05/15/19 10:04 Dose: 20 mg Documented by: Metoprolol Tartrate (Lopressor (Beta Emmanuel)) 50 mg PO BID [facility] Last Admin: 05/15/19 10:04 Dose: 50 mg Documented by: Morphine Sulfate () 4 mg IV Q3H PRN PRN PRN Reason: Pain Score 6-10/10 Last Admin: 05/15/19 13:17 Dose: 4 mg Documented by: Multivit/Ca Carb/B Cmplx/FA/Prenat (Nephrocaps, [facility]ro) [facility] Last Admin: 05/15/19 08:25 Dose: 1 capsule Documented by: Ondansetron HCl (Zofran) 4 mg IV Q8H PRN PRN PRN Reason: NAUSEA/VOMITING Pantoprazole Sodium (Protonix) 40 mg PO DAILY [facility] Last Admin: 05/15/19 10:04 Dose: 40 mg Documented by: Pyridoxine HCl (Vitamin B-6) [facility] Last Admin: 05/15/19 08:26 Dose: 100 mg Documented by: Sevelamer Carbonate (Renvela) 2,400 mg PO TIDCM [facility] Last Admin: 05/15/19 12:02 Dose: 2,400 mg Documented by: Sodium Chloride () 10 - 40 ml IV UD PRN PRN Reason: SALINE FLUSH Last Admin: 05/15/19 13:18 Dose: 10 ml Documented by: Medical Necessity - Tobacco Use Smoking Status: Never smoker Tobacco Use: Non-smoker Assessment/Plan All Active Problems (Last Updated 03/12/19 @ 17:43 by Kayla Tamayo MD) Diabetic foot infection (Acute) Bilateral foot wounds (Acute) Chest pain (Acute) Diabetes with neuropathy (hemoglobin A1C 12% in 03/21) Right foot ulcer sub-fourth and fifth metatarsal heads with cellulitis Fifth metatarsal head osteomyelitis at this time due to chronicity, worsening status, and recent MRI findings (waller grade 3) Left Waller grade 1 diabetic foot ulcer lateral fifth metatarsal head with cellulitis and hematogenous bulla that was debrided Foot deformities including hammertoes and tailor bunion bilateral Peripheral vascular disease Other comorbidities including noncompliance, renal disease on dialysis, cardiac history Malnutrition suspected Mechanical fall with right leg injury Gait instability I reviewed and discussed his case. He is afebrile with vital signs stable. He does not have leukocytosis. He does have elevated ESR (102) and C-reactive protein (104) levels. He did have wound culture obtained from the right foot however it is noted and results pending. He has been started on antibiotics and preliminary cultures demonstrate gram-negative renee growth. To continue on Zosyn at this time. Blood cultures are pending. His x-rays were reviewed with no soft tissue emphysema, acute injuries, chayo osseous destruction, or foreign body. He does have notable small vessel calcification consistent with vascular disease status. He had an MRI of the right foot in the outpatient setting 3 weeks ago which had borderline findings of osteomyelitis. This is suspected at this time the chronicity of this ulcer, worsening status, and now concurrent infection. Infectious disease was also placed on consultation and input is greatly appreciated. I recommend the fifth ray resection open versus closed to the right foot. Indications, planned procedure, benefits, risk, complications, and anticipated healing time and management were discussed in detail with the patient. He understands and is amenable to proceed forward at this time. No guarantees were made. He understands risks and complications include but are not limited to the following: Pain, swelling, scarring, need for further surgery, continued infection, delayed or nonhealing, blood clot, allergic reaction, chronic pain, transfer lesions and ulcers, loss of limb, function, or life. Informed surgical consent will be obtained. I recommend performing surgery within the next day and operating room availability will be confirmed. Subcutaneous and necrotic fascial tissue was excisionally performed bedside with a 15 blade and forcep. This was performed to remove devitalized and infectious subcutaneous tissue capsule, fibrous tissue and fascia and muscle and biofilm and slough. Pressure was applied to maintain hemostasis. He tolerated this. The pre-debridement measurement was 3.2 x 3.3 x 0.3 cm in the post debridement measurement was 3.5 x 3.5 x 0.4 cm. He had morphine administered during the debridement to help control his pain. Orders will be placed for n.p.o. status and preoperative medication adjustments. This case will be reviewed with the medical team in regards to preoperative optimization and dialysis plan. I answered all of his questions. Betadine wet-to-dry dressing was applied to the right foot this evening. Keep pressure off of the right ulcer site by heel weightbearing in a surgical shoe. It is also noted he had prior vascular surgery this year with Dr. Tuttle. His left foot was also evaluated this evening and a 15 blade and forcep was used to debride non-adhered drained bulla tissue including the nonadherent skin layer and underlying subcutaneous tissue. He did not have any pain with this and underlying tissue is granular and some hemorrhagic. There is no deep tissue exposure local signs of infection noted at this time. A dressing of Aquacel AG, gauze, and Kerlix were reapplied. The pre-debridement measurement at this site was 1 x 2 x 1 mm and post debridement was 3 cm x 3 cm x 1 mm. Pressure was applied to maintain hemostasis and he tolerated this well. Medical management DVT prophylaxis per primary team is greatly appreciated. Recommend nutritional supplementation optimize healing. T Please not hesitate to call for any questions. Brea Bravo DPM, [facility] [phone]
[2019-05-15] MEDS: Atorvastatin Calcium 20 MG Tablet PO (22:03)
[2019-05-15 22:31] LABS: Bedside Glucose 71 mg/dL (70-110)
[2019-05-16] VITALS (15 sets, daily range): BP systolic 138–195; BP diastolic 61–93; PULSE 65–73; RESP 14–18; TEMP 36.3–36.8; O2SAT 96–100
[2019-05-16 05:35] LABS: Hematocrit 29.3 % (40-54); Hemoglobin 8.9 g/dL (13.0-16.5); Mean Corp Hgb Conc 30.4 g/dL (32-36); Mean Corpuscular Hgb 28.3 pg (27.0-32.0); Mean Platelet Vol. 9.8 fl (6.2-12.0); Platelet Count 224 K/mm3 (150-450); RBC Distribution Width CV 15.3 % (11.6-14.6); RBC Distribution Width SD 51.9 fl (35.1-43.9); Red Blood Count 3.15 M/mm3 (4.6-6.2); White Blood Count 8.1 K/mm3 (4.4-11.0)
[2019-05-16 05:49] LABS: Partial Thromboplast Time 33.1 Seconds (24.1-36.2)
[2019-05-16 05:55] LABS: Albumin, Serum 2.5 g/dL (3.2-5.0); BUN 45 mg/dL (7-18); BUN/Creat Ratio 6.7 RATIO (10-20); Calcium,Total 8.9 mg/dL (8.5-10.1); Chloride 94 mmol/L (98-107); Creatinine, Serum 6.76 mg/dL (0.70-1.30); EST Glomerular Filtration Rate 9 mL/min (>60); Est Glom Filt Rate - Afr Amer 11 mL/min (>60); Estimated Creatinine Clearance 12.22 ml/min; Glucose 76 mg/dL (74-106); Phosphorus 8.8 mg/dL (2.5-4.9); Potassium 4.2 mmol/L (3.5-5.1); Sodium Level 135 mmol/L (136-145)
[2019-05-16 08:11] LABS: Hemoglobin A1c 9.9 % (4.2-6.3)
--- NOTE | 2019-05-16 08:37 | PN.RENAL_ITS ---
Patient Problems: Active and Suspected Problems (Last Updated 03/12/19 @ 17:43 by Kayla Tamayo MD) Diabetic foot infection (Acute) Bilateral foot wounds (Acute) Subjective: seen on dialysis, holding heparin for anticipated surgery this afternoon. No SOB, fever or chills. - Physical Exam Vitals/I&O's: Vital Signs Temp Pulse Resp BP Pulse Ox 98.0 F 65 16 195/93 H 98 05/16/19 07:59 05/16/19 07:59 05/16/19 07:59 05/16/19 07:59 05/16/19 07:59 Oxygen Flow Rate (L/min) 2 Oxygen Delivery Method Nasal Cannula Weight: 119.476 kg Body Mass Index (BMI) 41.2 Finger Stick Blood Glucose 191 Intake and Output for Last 24 Hours 05/14/19 05/15/19 05/16/19 23:59 23:59 23:59 Intake Total 100 / 420 2105 / 2105 50 / 50 Output Total 250 / 250 75 / 75 Balance 100 / 420 1855 / 1855 -25 / -25 General: Alert, Oriented x3, Cooperative, No apparent distress Lungs: Clear to auscultation Cardiovascular: Regular rate Extremities: - - feet wrapped Microbiology Past 72 Hours 05/14/19 22:20 Wound - Aerobic & Anaerobic Swabs Gram Stain - Final 05/14/19 22:20 Wound - Aerobic & Anaerobic Swabs Wound Culture - Preliminary Mixed Culture 05/14/19 22:28 Wound - Aerobic & Anaerobic Swabs Gram Stain - Final Laboratory Results 05/15/19 12:00: POC Glucose 204 H 05/15/19 16:26: POC Glucose 116 H 05/15/19 22:24: POC Glucose 71 05/16/19 05:06: Sodium 135 L, Potassium 4.2, Chloride 94 L, Carbon Dioxide 31.0, BUN 45 H, Creatinine 6.76 H, Estim Creat Clear Calc 12.22, Est GFR (MDRD) Af Amer 11 L, Est GFR (MDRD) Non-Af 9 L, BUN/Creatinine Ratio 6.7 L, Glucose 76, Calcium 8.9, Phosphorus 8.8 H, Albumin 2.5 L 05/16/19 05:06: WBC 8.1, RBC 3.15 L, Hgb 8.9 L, Hct 29.3 L, MCV 93.0, MCH 28.3, MCHC 30.4 L, RDW Std Deviation 51.9 H, RDW Coeff of Roberto 15.3 H, Plt Count 224, MPV 9.8 05/16/19 05:06: APTT 33.1 05/16/19 05:06: Hemoglobin A1c 9.9 H Current Medications Acetaminophen (Tylenol) 650 mg PO Q6H PRN PRN PRN Reason: Mild Pain (1-3)/Temp > 100.7 F Last Admin: 05/14/19 19:55 Dose: 650 mg Documented by: Aspirin (Ecotrin) 81 mg PO DAILY@0800 [facility] Last Admin: 05/15/19 08:25 Dose: 81 mg Documented by: Atorvastatin Calcium (Lipitor) 20 mg PO QHS [facility] Last Admin: 05/15/19 22:03 Dose: 20 mg Documented by: Cyclobenzaprine HCl (Flexeril) 10 mg PO TID PRN PRN PRN Reason: SPASMS Dextrose (D50w Syringe) 0 gm IV X1 PRN; Protocol PRN Reason: Hypoglycemia Fluticasone Propionate (Flonase Nasal [place]) 1 spray NASAL DAILY [facility] Last Admin: 05/15/19 10:06 Dose: 1 spray Documented by: Furosemide (Lasix) 40 mg PO BIDLX [facility] Last Admin: 05/15/19 17:31 Dose: 40 mg Documented by: Gabapentin (Neurontin) 300 mg PO BIDCM [facility] Last Admin: 05/15/19 17:31 Dose: 300 mg Documented by: Glucagon () 1 mg IM .X1 PRN PRN Reason: Hypoglycemia Guaifenesin (Robitussin Dm) 10 ml PO Q6H PRN PRN PRN Reason: CONGESTION Heparin Sodium (Porcine) (Heparin Na) 5,000 unit SC Q8 [facility] Last Admin: 05/16/19 04:26 Dose: Not Given Documented by: Piperacillin Sod/Tazobactam (Sod 3.375 gm/ Sodium Chloride) 50 mls @ 12.5 mls/hr IV Q12 [facility] Last Infusion: 05/16/19 02:00 Dose: Infused Documented by: Insulin Human Lispro (Humalog Kwikpen (Bkc)) 15 unit SC TIDAC [facility] Last Admin: 05/16/19 07:28 Dose: Not Given Documented by: Insulin Human Lispro (Humalog Kwikpen (Bkc)) 0 unit SC ACHS [facility]; Protocol Last Admin: 05/16/19 07:28 Dose: Not Given Documented by: Insulin Human Regular (Humulin R U-500 ([facility])) 50 units SC BIDAC [facility] Last Admin: 05/16/19 07:28 Dose: Not Given Documented by: Isosorbide Mononitrate (Imdur) 30 mg PO DAILY [facility] Last Admin: 05/15/19 10:05 Dose: 30 mg Documented by: Lisinopril (Zestril) 20 mg PO DAILY [facility] Last Admin: 05/15/19 10:04 Dose: 20 mg Documented by: Metoprolol Tartrate (Lopressor (Beta Emmanuel)) 50 mg PO BID [facility] Last Admin: 05/15/19 22:04 Dose: 50 mg Documented by: Morphine Sulfate () 4 mg IV Q3H PRN PRN PRN Reason: Pain Score 6-10/10 Last Admin: 05/15/19 22:09 Dose: 4 mg Documented by: Multivit/Ca Carb/B Cmplx/FA/Prenat (Nephrocaps, Renaphro) [facility] Last Admin: 05/15/19 08:25 Dose: 1 capsule Documented by: Ondansetron HCl (Zofran) 4 mg IV Q8H PRN PRN PRN Reason: NAUSEA/VOMITING Pantoprazole Sodium (Protonix) 40 mg PO DAILY [facility] Last Admin: 05/15/19 10:04 Dose: 40 mg Documented by: Pyridoxine HCl (Vitamin B-6) 100 mg PO DAILYCM [facility] Last Admin: 05/15/19 08:26 Dose: 100 mg Documented by: Sevelamer Carbonate (Renvela) 2,400 mg PO TIDCM [facility] Last Admin: 05/15/19 17:31 Dose: 2,400 mg Documented by: Sodium Chloride () 10 - 40 ml IV UD PRN PRN Reason: SALINE FLUSH Last Admin: 05/15/19 22:04 Dose: 10 ml Documented by: Medical Necessity - Tobacco Use Smoking Status: Never smoker Tobacco Use: Non-smoker Assessment/Plan All Active Problems (Last Updated 03/12/19 @ 17:43 by Kayla Tamayo MD) Diabetic foot infection (Acute) Bilateral foot wounds (Acute) Chest pain (Acute) 1. ESRD HD THS. Seen on dialysis 2. Diabetic foot infection iv antibx, debridement today 3. Anemia TERESA therapy 4. HTN resume home BP meds 5. DM2 primary service mgmt 6. morbid obesity 7. Hyperphosphatemia, increase binders
--- NOTE | 2019-05-16 09:19 | NURSING ---
Pt is scheduled for surgery later today with Dr Bravo. Did not remove dressings from feet at this time.
--- NOTE | 2019-05-16 09:57 | PCM.PN.HOSP ---
Patient Problems: Active and Suspected Problems (Last Updated 03/12/19 @ 17:43 by Kayla Tamayo MD) Diabetic foot infection (Acute) Bilateral foot wounds (Acute) Subjective: Feeling better, but he thinks he is likely going to need a long-term facility on discharge. No issues overnight. Vitals/I&O's: Vital Signs Temp Pulse Resp BP Pulse Ox 98.0 F 65 16 195/93 H 98 05/16/19 07:59 05/16/19 07:59 05/16/19 07:59 05/16/19 07:59 05/16/19 07:59 Oxygen Flow Rate (L/min) 2 Oxygen Delivery Method Nasal Cannula Weight: 263 lb 6.392 oz Body Mass Index (BMI) 41.2 Finger Stick Blood Glucose 191 Intake and Output for Last 24 Hours 05/14/19 05/15/19 05/16/19 23:59 23:59 23:59 Intake Total 100 / 420 2105 / 2105 50 / 50 Output Total 250 / 250 75 / 75 Balance 100 / 420 1855 / 1855 -25 / -25 General: Alert, Oriented x3, Cooperative, No apparent distress HEENT: Atraumatic, PERRLA, EOMI, Normocephalic Oral: Moist Mucosa Neck: Supple, No JVD Lungs: Clear to auscultation, Normal air movement, No rhonchi, No wheeze, No rales Cardiovascular: Regular rate, Regular Rhythm, Normal S1, Normal S2, No murmurs Abdomen: Soft, Non Tender, Non-Distended, No Hepato-splenomegaly Extremities: Capillary Refill Less than 3 Seconds, Edema - Slight Skin: Ulcer/ Wound - Bilateral lower extremity dressings intact Neurological: Neuro grossly intact, Sensory exam intact to light touch and pain Psych/Mental Status: Normal Affect, Appropriate Microbiology Past 72 Hours 05/14/19 22:20 Wound - Aerobic & Anaerobic Swabs Gram Stain - Final 05/14/19 22:20 Wound - Aerobic & Anaerobic Swabs Wound Culture - Preliminary Proteus sp. 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 05/14/19 22:28 Wound - Aerobic & Anaerobic Swabs Gram Stain - Final Laboratory Results 05/15/19 12:00: POC Glucose 204 H 05/15/19 16:26: POC Glucose 116 H 05/15/19 22:24: POC Glucose 71 05/16/19 05:06: Sodium 135 L, Potassium 4.2, Chloride 94 L, Carbon Dioxide 31.0, BUN 45 H, Creatinine 6.76 H, Estim Creat Clear Calc 12.22, Est GFR (MDRD) Af Amer 11 L, Est GFR (MDRD) Non-Af 9 L, BUN/Creatinine Ratio 6.7 L, Glucose 76, Calcium 8.9, Phosphorus 8.8 H, Albumin 2.5 L 05/16/19 05:06: WBC 8.1, RBC 3.15 L, Hgb 8.9 L, Hct 29.3 L, MCV 93.0, MCH 28.3, MCHC 30.4 L, RDW Std Deviation 51.9 H, RDW Coeff of Roberto 15.3 H, Plt Count 224, MPV 9.8 05/16/19 05:06: APTT 33.1 05/16/19 05:06: Hemoglobin A1c 9.9 H Current Medications Acetaminophen (Tylenol) 650 mg PO Q6H PRN PRN PRN Reason: Mild Pain (1-3)/Temp > 100.7 F Last Admin: 05/14/19 19:55 Dose: 650 mg Documented by: Aspirin (Ecotrin) 81 mg PO DAILY@0800 [facility] Last Admin: 05/15/19 08:25 Dose: 81 mg Documented by: Atorvastatin Calcium (Lipitor) 20 mg PO QHS [facility] Last Admin: 05/15/19 22:03 Dose: 20 mg Documented by: Cyclobenzaprine HCl (Flexeril) 10 mg PO TID PRN PRN PRN Reason: SPASMS Dextrose (D50w Syringe) 0 gm IV X1 PRN; Protocol PRN Reason: Hypoglycemia Fluticasone Propionate (Flonase Nasal [place]) 1 spray NASAL DAILY [facility] Last Admin: 05/15/19 10:06 Dose: 1 spray Documented by: Furosemide (Lasix) 40 mg PO BIDLX [facility] Last Admin: 05/15/19 17:31 Dose: 40 mg Documented by: Gabapentin (Neurontin) 300 mg PO BIDCM [facility] Last Admin: 05/15/19 17:31 Dose: 300 mg Documented by: Glucagon () 1 mg IM .X1 PRN PRN Reason: Hypoglycemia Guaifenesin (Robitussin Dm) 10 ml PO Q6H PRN PRN PRN Reason: CONGESTION Heparin Sodium (Porcine) (Heparin Na) 5,000 unit SC Q8 [facility] Last Admin: 05/16/19 04:26 Dose: Not Given Documented by: Piperacillin Sod/Tazobactam (Sod 3.375 gm/ Sodium Chloride) 50 mls @ 12.5 mls/hr IV Q12 [facility] Last Infusion: 05/16/19 02:00 Dose: Infused Documented by: Insulin Human Lispro (Humalog Kwikpen ([facility])) 15 unit SC TIDAC [facility] Last Admin: 05/16/19 07:28 Dose: Not Given Documented by: Insulin Human Lispro (Humalog Kwikpen ([facility])) 0 unit SC ACHS [facility]; Protocol Last Admin: 05/16/19 07:28 Dose: Not Given Documented by: Insulin Human Regular (Humulin R U-500 ([facility])) 50 units SC BIDAC [facility] Last Admin: 05/16/19 07:28 Dose: Not Given Documented by: Isosorbide Mononitrate (Imdur) 30 mg PO DAILY [facility] Last Admin: 05/15/19 10:05 Dose: 30 mg Documented by: Lisinopril (Zestril) 20 mg PO DAILY [facility] Last Admin: 05/15/19 10:04 Dose: 20 mg Documented by: Metoprolol Tartrate (Lopressor (Beta Emmanuel)) 50 mg PO BID [facility] Last Admin: 05/15/19 22:04 Dose: 50 mg Documented by: Morphine Sulfate () 4 mg IV Q3H PRN PRN PRN Reason: Pain Score 6-10/10 Last Admin: 05/15/19 22:09 Dose: 4 mg Documented by: Multivit/Ca Carb/B Cmplx/FA/Prenat ([facility]caps, [facility]) [facility] Admin: 05/15/19 08:25 Dose: 1 capsule Documented by: Ondansetron HCl (Zofran) 4 mg IV Q8H PRN PRN PRN Reason: NAUSEA/VOMITING Pantoprazole Sodium (Protonix) 40 mg PO DAILY [facility] Last Admin: 05/15/19 10:04 Dose: 40 mg Documented by: Pyridoxine HCl (Vitamin B-6) [facility] Last Admin: 05/15/19 08:26 Dose: 100 mg Documented by: Sevelamer Carbonate (Renvela) 3,200 mg PO TIDCM [facility] Sodium Chloride () 10 - 40 ml IV UD PRN PRN Reason: SALINE FLUSH Last Admin: 05/15/19 22:04 Dose: 10 ml Documented by: STROKE Vital Signs/Narrative: Vital Signs Temp Pulse Resp BP Pulse Ox 05/16/19 07:59 98.0 F 65 16 195/93 H 98 Medical Necessity - Tobacco Use Smoking Status: Never smoker Tobacco Use: Non-smoker Assessment/Plan All Active Problems (Last Updated 03/12/19 @ 17:43 by Kayla Tamayo MD) Diabetic foot infection (Acute) Bilateral foot wounds (Acute) Chest pain (Acute) 1. Right foot neuropathic ulceration with cellulitis as well as right foot osteomyelitis/type I DM/morbid obesity -Continue with IV Zosyn as his previous culture showed pansensitive enterococcus -Current culture with Proteus and enterococcus as well as another gram-negative renee -For OR today, low risk -Continue with insulin and monitor with Accu-Cheks AC at bedtime -BMI is 41, discussed lifestyle modification 2. Chronic diastolic CHF/HTN/HLD toxic respiratory failure -His heart failure is currently not in exacerbation -Continue with aspirin, statin, Toprol, lisinopril, Lasix -Continue with chronic oxygen 3. End-stage renal disease secondary to diabetes/anemia of chronic disease -Continue with dialysis Saturdays -Appreciate nephrology assistance -Dialysis today 4. GERD -Stable -Continue with PPI DVT: Heparin Code Visit Inpatient E&M: 20812 Subs Hosp L2
--- NOTE | 2019-05-16 10:28 | PN.ID_ITS ---
Patient Problems: Active and Suspected Problems (Last Updated 03/12/19 @ 17:43 by Kayla Tamayo MD) Diabetic foot infection (Acute) Bilateral foot wounds (Acute) Subjective: OR today, no fever, no n/v/d. - Physical Exam Vitals/I&O's: Vital Signs Temp Pulse Resp BP Pulse Ox 98.2 F 65 14 188/89 H 98 05/16/19 09:00 05/16/19 09:00 05/16/19 09:00 05/16/19 09:00 05/16/19 09:00 Oxygen Flow Rate (L/min) 2 Oxygen Delivery Method Nasal Cannula Weight: 119.476 kg Body Mass Index (BMI) 41.2 Finger Stick Blood Glucose 191 Intake and Output for Last 24 Hours 05/14/19 05/15/19 05/16/19 23:59 23:59 23:59 Intake Total 100 / 420 2105 / 2105 50 / 50 Output Total 250 / 250 75 / 75 Balance 100 / 420 1855 / 1855 -25 / -25 General: Alert, Cooperative, No apparent distress Lungs: Clear to auscultation, Normal air movement Cardiovascular: Regular rate, Regular Rhythm Abdomen: Soft, Non Tender, Non-Distended Skin: Ulcer/ Wound - feet wrapped Microbiology Past 72 Hours 05/14/19 22:20 Wound - Aerobic & Anaerobic Swabs Gram Stain - Final 05/14/19 22:20 Wound - Aerobic & Anaerobic Swabs Wound Culture - Preliminary Proteus sp. GPC Poss Enterococcus sp GNR lactose duct layer helper 05/14/19 22:28 Wound - Aerobic & Anaerobic Swabs Gram Stain - Final Laboratory Results 05/15/19 12:00: POC Glucose 204 H 05/15/19 16:26: POC Glucose 116 H 05/15/19 22:24: POC Glucose 71 05/16/19 05:06: Sodium 135 L, Potassium 4.2, Chloride 94 L, Carbon Dioxide 31.0, BUN 45 H, Creatinine 6.76 H, Estim Creat Clear Calc 12.22, Est GFR (MDRD) Af Amer 11 L, Est GFR (MDRD) Non-Af 9 L, BUN/Creatinine Ratio 6.7 L, Glucose 76, Calcium 8.9, Phosphorus 8.8 H, Albumin 2.5 L 05/16/19 05:06: WBC 8.1, RBC 3.15 L, Hgb 8.9 L, Hct 29.3 L, MCV 93.0, MCH 28.3, MCHC 30.4 L, RDW Std Deviation 51.9 H, RDW Coeff of Roberto 15.3 H, Plt Count 224, MPV 9.8 05/16/19 05:06: APTT 33.1 05/16/19 05:06: Hemoglobin A1c 9.9 H Current Medications Acetaminophen (Tylenol) 650 mg PO Q6H PRN PRN PRN Reason: Mild Pain (1-3)/Temp > 100.7 F Last Admin: 05/14/19 19:55 Dose: 650 mg Documented by: Aspirin (Ecotrin) 81 mg PO DAILY@0800 [facility] Last Admin: 05/15/19 08:25 Dose: 81 mg Documented by: Atorvastatin Calcium (Lipitor) 20 mg PO QHS [facility] Last Admin: 05/15/19 22:03 Dose: 20 mg Documented by: Cyclobenzaprine HCl (Flexeril) 10 mg PO TID PRN PRN PRN Reason: SPASMS Dextrose (D50w Syringe) 0 gm IV X1 PRN; Protocol PRN Reason: Hypoglycemia Fluticasone Propionate (Flonase Nasal [place]) 1 spray NASAL DAILY [facility] Last Admin: 05/15/19 10:06 Dose: 1 spray Documented by: Furosemide (Lasix) 40 mg PO BIDLX [facility] Last Admin: 05/15/19 17:31 Dose: 40 mg Documented by: Gabapentin (Neurontin) 300 mg PO BIDCM [facility] Last Admin: 05/15/19 17:31 Dose: 300 mg Documented by: Glucagon () 1 mg IM .X1 PRN PRN Reason: Hypoglycemia Guaifenesin (Robitussin Dm) 10 ml PO Q6H PRN PRN PRN Reason: CONGESTION Heparin Sodium (Porcine) (Heparin Na) 5,000 unit SC Q8 [facility] Last Admin: 05/16/19 04:26 Dose: Not Given Documented by: Piperacillin Sod/Tazobactam (Sod 3.375 gm/ Sodium Chloride) 50 mls @ 12.5 mls/hr IV Q12 [facility] Last Infusion: 05/16/19 02:00 Dose: Infused Documented by: Insulin Human Lispro (Humalog Kwikpen ([facility])) 15 unit SC TIDAC [facility] Last Admin: 05/16/19 07:28 Dose: Not Given Documented by: Insulin Human Lispro (Humalog Kwikpen ([facility])) 0 unit SC ACHS [facility]; Protocol Last Admin: 05/16/19 07:28 Dose: Not Given Documented by: Insulin Human Regular (Humulin R U-500 ([facility])) [facility] Last Admin: 05/16/19 07:28 Dose: Not Given Documented by: Isosorbide Mononitrate (Imdur) 30 mg PO DAILY [facility] Last Admin: 05/15/19 10:05 Dose: 30 mg Documented by: Lisinopril (Zestril) 20 mg PO DAILY [facility] Last Admin: 05/15/19 10:04 Dose: 20 mg Documented by: Metoprolol Tartrate (Lopressor (Beta Emmanuel)) 50 mg PO BID [facility] Last Admin: 05/15/19 22:04 Dose: 50 mg Documented by: Morphine Sulfate () 4 mg IV Q3H PRN PRN PRN Reason: Pain Score 6-10/10 Last Admin: 05/15/19 22:09 Dose: 4 mg Documented by: Multivit/Ca Carb/B Cmplx/FA/Prenat (Nephrocaps, [facility]ro) [facility] Last Admin: 05/15/19 08:25 Dose: 1 capsule Documented by: Ondansetron HCl (Zofran) 4 mg IV Q8H PRN PRN PRN Reason: NAUSEA/VOMITING Pantoprazole Sodium (Protonix) 40 mg PO DAILY [facility] Last Admin: 05/15/19 10:04 Dose: 40 mg Documented by: Pyridoxine HCl (Vitamin B-6) [facility] Last Admin: 05/15/19 08:26 Dose: 100 mg Documented by: Sevelamer Carbonate (Renvela) 3,[facility] [place] Chloride () 10 - 40 ml IV UD PRN PRN Reason: SALINE FLUSH Last Admin: 05/15/19 22:04 Dose: 10 ml Documented by: Medical Necessity - Tobacco Use Smoking Status: Never smoker Tobacco Use: Non-smoker Route of nutrition/ use of supplements: [] Nutritional Intake: [] IV Site: [] Kuo Catheter: [] - Assessment/Plan Antibiotics: [] Assessment/Plan: [] Active and Suspected Problems (Last Updated 03/12/19 @ 17:43 by Kayla Tamayo MD) Diabetic foot infection (Acute) Bilateral foot wounds (Acute) R foot osteo - wound cx with GNR. Surgery planned. Prior cx with enterococcus, bacillus, corynebacteria, anaerobes. Cont zosyn. Will follow.
--- NOTE | 2019-05-16 10:39 | CASEMGMT ---
Addendum entered by Ade Kitchen 05/16/19 14:34: SW received message from Zaida at [facility] stating [facility] is not able to accept pt. SW met with pt. Pt states his second choice is [facility]. SW placed a call to Mallory at [facility] and provided referral. SW faxed referral. SW spoke with Mallory at [facility] stating she is able to accept pt and will submit for pre-cert. Plan: [facility] pending pre-cert Original Note: Social Work Note Pt is having surgery today. WILFREDO placed a call to Zaida at [facility] and asked if [facility] is able to accept pt back. Zaida states she will ask her staff and then give this worker a call back. Plan: SNF pending acceptance and pre-cert Ade Kitchen DIRECTOR OF STRATEGY & MOBILE, SENIOR ESTIMATOR
--- NOTE | 2019-05-16 10:48 | NURSING ---
Dr. Bravo called in to make sure IVF orders are more urgent and not given later today. Notified that order is unverified by pharmacy but when it is it will be scheduled immediately. Notified Dana, primary RN of [facility].
[2019-05-16] MEDS: Dextrose 5%/0.9% NaCl 1,000 ML 30 ML IV (11:29)
[2019-05-16 11:41] LABS: Bedside Glucose 122 mg/dL (70-110)
[2019-05-16 12:40] LABS: Bedside Glucose 105 mg/dL (70-110)
--- NOTE | 2019-05-16 13:07 | DIALYSIS ---
HD x4h15m completed, tolerated well, stable treatment, no heparin bolus used today, accessed via NERI AVF using 15G needles, worked well, stasis achieved post treatment without issue, UF 4800mL
[2019-05-16] MEDS: Morphine 4 MG/ML Syringe IV ×2 (13:59→20:20)
--- NOTE | 2019-05-16 14:25 | NURSING ---
called to ac and report given to zhen marcus whom will be taking over care for pt
[2019-05-16] MEDS: Metoprolol Tartrate 50 MG Tablet PO ×2 (15:01→20:20)
[2019-05-16] MEDS: Isosorbide Mononitrate 30 MG Tablet PO (15:02)
[2019-05-16] MEDS: Lisinopril 20 MG Tablet PO (15:02)
[2019-05-16] MEDS: Pantoprazole Sodium 40 MG Tablet PO (15:02)
--- NOTE | 2019-05-16 15:15 | RAD_ITS ---
STUDY: X-RAY - RIGHT FOOT CLINICAL: Male, 48 years old. Intraoperative resection of the fifth toe TECHNIQUE: 3 fluoroscopic guided view(s) of the foot. 4 seconds of fluoroscopic time utilized during the exam COMPARISON: None. FINDINGS: 3 fluoroscopic guided images were obtained demonstrating postsurgical changes status post resection of the fifth toe at the level of the proximal metatarsal shaft RAD/Foot min 3 Views IMPRESSION: Status post resection of left fifth toe through the proximal fifth metatarsal shaft Electronically Signed: Rayray Alegre MD at 21:21 EST , Service support ,
--- NOTE | 2019-05-16 15:15 | BON_PTH ---
PATIENT: JUSTICE GREGORIO Jr. LOC: MS3 U#:[id number] AGE/SX: 48/M ROOM: VT315 RE05/14/[address]: Dr. Dharmesh Marie MD : 1970 BED: 1 DIS: 05/20/2019 SPEC #: [id number] RECD: 05/17/19 09:00 STATUS: LYNN REQ #: [id number] JUDY: 05/16/19 15:[address]: Brea Bravo DEPT: SURGICAL PATHOLOGY RECD BY: Chaim Caban ENTERED: 05/17/19 09:51 SP TYPE: Bone OTHR DR: Dr. Anca Gregorio, DO Dr. Brea Bravo, DPM Dr. Pérez Lee, MD Dr. Esteban Harris Dr., MD Dr. Victor Velasquez, MD Tissues: A - Bone of foot, NOS B - Bone of foot, NOS Procedures: Decalcification bone/plaque Surgery Specimen Level IV Comments: @ Ordering doctor for DEC edited from to @ daryl WAKEFIELD at 05/17/19 1042 @ Ordering doctor for SUIII edited from to @ daryl WAKEFIELD at 05/17/19 1042 @ Submitting doctor edited from to @ daryl WAKEFIELD at 05/17/19 1042 HEADER OPERATION: Right foot soft tissue and bone debridement PRE-OP DIAGNOSIS: Diabetic foot infection; bilateral foot wounds TISSUE SUBMITTED: A - Clearance fragment, right foot, B - Soft tissue and bone, right foot MICROSCOPIC DIAGNOSIS A. Clearance fragment bone, right foot, biopsy: Reparative and reactive change. No evidence of osteomyelitis. B. Bone and soft tissue, right foot, excision: Skin and soft tissue with ulceration and associated acute and chronic inflammation and granulation. Bone with reparative and reactive change. AM:nimisha 05/22/19 MICROSCOPIC DESCRIPTION Slides are reviewed. GROSS DESCRIPTION A - Received in fixative is one container labeled with the patient's name and designated clearance fragment right foot. The specimen consists of two fragments of bone that in aggregate measure 0.8 x 0.7 x 0.3 cm. The entire specimen is submitted in one cassette for short decalcification. B - Received in fixative is one container labeled with the patient's name and designated soft tissue and bone, right foot. The specimen consists of a piece of skin with underlying tissue measuring 4.5 x 2.5 cm and up to 1 cm in thickness. Also received is a piece of skin with underlying tissue and bone measuring 4.5 x 1.5 x 2 cm. Also present in the container is a piece of bone with attached soft tissue measuring 3.5 x 1 x 1 cm. The skin piece shows an extensive area of ulceration. The piece of bone with skin also shows a nail which appears atrophic. V[employer] Developer sections are submitted in three cassettes as follows: 1 - skin with area of ulceration, 2 & 3 - bone after decalcification. / SJ:nimisha 05/17/19 TC:2 CPT: 62752 x2, 57895 x2
[2019-05-16] MEDS: Bupivacaine Mpf 0.5% 30 ML VIAL (16:00)
--- NOTE | 2019-05-16 16:44 | PCM.OPRPT ---
Problem List (1) Ulcer of right foot with fat layer exposed Status: Chronic (2) Type 2 diabetes mellitus with diabetic polyneuropathy Status: Chronic (3) Osteomyelitis Status: Chronic Qualifiers: Osteomyelitis type: subacute (4) Tailor's bunion of right foot Status: Chronic Report of Operation Date of Procedure: 05/16/19 Pre-Operative Diagnosis: Osteomyelitis of fifth metatarsal head. Necrotic ulcer right foot. Right tailor bunion Post-Operative Diagnosis: Osteomyelitis of fifth metatarsal head. Necrotic ulcer right foot. Right tailor bunion Surgery/Procedure Performed:: Right fifth ray resection Description of Surgical Findings:: Hemostasis: Well-padded pneumatic right ankle tourniquet, 250 mmHg, 5 minutes Materials: 2-0 nylon Complications: None Specimens sent to microbiology and pathology The patient tolerated the procedure and anesthesia well. He was transported to the PACU with vital signs stable and vascular status intact to the right foot. He will be transferred back to the medical surgical floor upon continued stability. Postoperative x-rays were obtained prior to leaving the operating room which demonstrated adequate fifth ray resection without acute injuries. His postoperative orders were entered electronically. altitude chamber technician: none - Surgeon: Brea Bravo DPM. Derrick Worker Well Service: Samanta Ashton PGY2 Type of Anesthesia:: Local MAC - Preoperative injection: One-to-one mixture of 1% lidocaine plain and 0.5% Marcaine plain administered in typical right fifth ray block fashion, 19 cc Specimen's removed: 1. Soft tissue and bone right foot sent to pathology. 2. Soft tissue and bone right foot sent to microbiology for aerobic, anaerobic, and acid-fast. 3. Fifth metatarsal clearance bone right foot sent to pathology. 4. Fifth metatarsal clearance bone right foot sent to microbiology for aerobic, anaerobic, and acid-fast Estimated Blood Loss (mL): 200 mL Description of Procedure: Indications: This 48 year old M with significant past medical history of diabetes with neuropathy, h/o anemia, chronic kidney disease on hemodialysis, peripheral vascular disease status post intervention, hypertension, hyperlipidemia, sleep apnea, obesity was admitted for right foot ulcer that has infection with worsening status, osteomyelitis development, and cellulitis. His x-rays did not demonstrate chayo osseous destruction or foreign body or soft tissue emphysema. His MRI obtained a few weeks ago in the outpatient setting while he was seen at the [facility] demonstrated likely signs of osteomyelitis given his chronic ulcer and continued delayed healing status this is his working diagnosis. His elevation in ESR of 102 and CRP of 104 also support this diagnosis in addition to his positive probe to bone from the plantar necrotic borders ulcer. He was started on IV antibiotics that are culture guided; Zosyn at this time. Infectious disease is on consultation. I recommended a fifth ray resection at this time due to the non-viability of the ulcer including part of the fifth toe and the infection signs to the fifth metatarsal bone. It is noted that he does have capillary fill time less than three seconds to all digits of the right foot and he did have prior angiogram and angioplasty of the proximal anterior tibial artery and tibial peroneal trunk performed earlier this year with Dr. Tuttle. He does not have evidence of clinical acute limb ischemia at this time. The preoperative indications, planned procedure, possible benefits, risk, complications, and anticipated healing time management were discussed in detail. He understands and elects proceed with surgery at this time. No guarantees were made. He understands risks and complications may include but are not limited to the following: pain, swelling, scarring, need for further surgery, loss of limb, function, life, blood clot, allergic reaction, transfer lesion or ulcer. The informed surgical consent and limb were signed. I answered all his questions. Procedure in detail: The patient was transported to the operating room via cart and placed on the operating table in the supine position. Final verification of the patient, surgery, limb designation was performed via the timeout procedure. IV antibiotics are already being administered on the medical surgical floor. MAC anesthesia was initiated by the anesthesia team. Local anesthesia was administered by the podiatry team. A well-padded pneumatic right ankle tourniquet was placed. The right lower extremity was prepped and draped in the usual aseptic manner. Surgery began as the following: Austin exsanguination was performed and the tourniquet was inflated. Attention was first directed to the lateral aspect of the right foot in which an approximately 3.2 x 3.2 cm x 0.5 cm ulcer was excised with a 15 blade scalpel down to bone. Care was taken to identify, protect, and retract neurovascular structures at this point and throughout the remainder of the surgery. The distal and proximal aspects of this incision were extended to carefully dissect out the bones of the fifth toe taking care to preserve the skin to use for the distalmost flap. The nail unit was also excised and discarded at this time. A venous tourniquet was suspected and the tourniquet was deflated at this time. Brisk capillary refill time continued to the digits there was no pulsatile bleeding. Hemostasis was controlled with pressure and electrocauterization. Next, a sagittal saw was used to perform the resection of bone could taking care to bevel to avoid bony prominences laterally and plantar. The devitalized soft tissue and bone were removed from the table and sent to both microbiology and pathology as noted. The wound site was copiously irrigated with normal saline. At this time new gloves, immediate drapes and clean instrumentation were utilized for the remainder of the case. A fifth metatarsal clearance fragment was obtained and sent to both microbiology and pathology. Saline irrigation was performed and the skin edges were reapproximated in a non-tensile manner. Care was taken to reapproximate the flap skin closure site utilizing no touch technique. 2-0 nylon was applied in widespread retention simple and horizontal mattress technique. Postoperative x-rays were obtained as noted. A postoperative dressing consisting of Betadine soaked gauze, abdominal pads, Kerlix and an Koffi wrap were applied. After procedure: The patient tolerated the procedure anesthesia well. He was transferred to the PACU vital signs stable vascular status intact to the right lower extremity. He was advised to ice and elevate for pain and inflammation management. Pain medication will be ordered as well if needed while in the PACU and also once he returns to the medical surgical floor. He will also keep his dressing clean, dry, and intact. To continue on IV antibiotics per infectious disease management. Strict nonweightbearing was recommended to optimize healing. The post operative xrays have been reviewed. Medical management and DVT prophylaxis per primary team is greatly appreciated. Nephrology and infectious disease management is also appreciated. It is okay to resume anticoagulation medication tomorrow. Postoperative orders were entered electronically. Brea Bravo DPM, [facility] - Complications none - Admit VTE Documentation VTE Present on Admission: No VTE Mechan Device Prophylaxis: SCD's VTE Pharm Prophylaxis ordered?: Yes
--- NOTE | 2019-05-16 17:15 | RAD_ITS ---
STUDY: X-RAY - RIGHT FOOT CLINICAL: Male, 48 years old. Postop TECHNIQUE: 3 view(s) of the foot. COMPARISON: None. FINDINGS: Postsurgical changes status post resection of the fifth toe through the proximal metatarsal shaft. There is diffuse soft tissue swelling at the operative site. RAD/Foot min 3 Views IMPRESSION: Status post amputation of the fifth toe through the proximal fifth metatarsal Electronically Signed: Rayray Alegre MD at 21:30 EST , Service support ,
[2019-05-16] MEDS: Fluticasone 0.05% 1 SPRAY NASAL.SRY NASAL (17:52)
[2019-05-16] MEDS: SEVELAMER CARBONATE 800 MG TABLET 3200 MG PO (17:52)
[2019-05-16] MEDS: Furosemide 40 MG Tablet PO (17:52)
[2019-05-16] MEDS: Folic Acid/Vitamin B Comp W-C 1 Capsule 1 CAP PO (17:53)
[2019-05-16] MEDS: Aspirin E.C. 81 MG Tablet PO (17:53)
[2019-05-16] MEDS: Insulin Lispro 100 UNIT/ML INSULN.PEN 15 UNIT SC (17:54)
[2019-05-16] MEDS: Pyridoxine HCl 100 MG Tablet PO (17:54)
[2019-05-16] MEDS: Insulin Lispro 100 UNIT/ML INSULN.PEN SC (17:54)
[2019-05-16] MEDS: Gabapentin 300 MG Capsule PO (17:54)
[2019-05-16 18:00] LABS: Bedside Glucose 262 mg/dL (70-110)
[2019-05-16] MEDS: Atorvastatin Calcium 20 MG Tablet PO (20:20)
[2019-05-16] MEDS: 0.9% Saline Lock 10 ML Syringe IV ×2 (20:20→21:38)
[2019-05-16] MEDS: Heparin Injection (Vial) 5,000 UNIT/ML VIAL 5000 UNIT SC (20:30)
[2019-05-16] MEDS: Acetaminophen 325 MG Tablet 650 MG PO (21:54)
[2019-05-17] VITALS (10 sets, daily range): BP systolic 126–165; BP diastolic 49–78; PULSE 60–64; RESP 16–18; TEMP 36.7–37.2; O2SAT 96–100
[2019-05-17 00:26] LABS: Bedside Glucose 117 mg/dL (70-110)
[2019-05-17] MEDS: Morphine 4 MG/ML Syringe IV ×2 (03:05→09:09)
[2019-05-17] MEDS: 0.9% Saline Lock 10 ML Syringe IV ×4 (03:06→18:45)
[2019-05-17] MEDS: Heparin Injection (Vial) 5,000 UNIT/ML VIAL 5000 UNIT SC ×3 (06:02→23:05)
[2019-05-17 06:44] LABS: Absolute Lymphocyte Count 1.14 X10^3/uL (0.83-4.51); Absolute Neutrophil Count 4.6 X10^3/uL (2.0-7.7); Basophil# 0.09 X10^3/uL; Basophil% 1.3 % (0-1); Eosinophils% 6.9 % (0-5); Hematocrit 29.8 % (40-54); Lymphocyte # 1.14 X10^3/ul (4.0); Lymphocyte % 15.8 % (19-41); Mean Corp Hgb Conc 30.2 g/dL (32-36); Mean Corpuscular Hgb 28.5 pg (27.0-32.0); Mean Corpuscular Volume 94.3 fL (80-94); Mean Platelet Vol. 10.1 fl (6.2-12.0); Monocyte# 0.72 X10^3/uL; NRBC Flagged by Analyzer 0 % (0-5); Neutrophil % 63.9 % (47-70); Platelet Count 219 K/mm3 (150-450); RBC Distribution Width SD 52.1 fl (35.1-43.9); Red Blood Count 3.16 M/mm3 (4.6-6.2); White Blood Count 7.2 K/mm3 (4.4-11.0)
[2019-05-17 06:57] LABS: Anion Gap 10 (5-15); BUN 25 mg/dL (7-18); Chloride 94 mmol/L (98-107); Creatinine, Serum 4.99 mg/dL (0.70-1.30); EST Glomerular Filtration Rate 13 mL/min (>60); Est Glom Filt Rate - Afr Amer 16 mL/min (>60); Estimated Creatinine Clearance 16.56 ml/min; Glucose 143 mg/dL (74-106); Potassium 4.2 mmol/L (3.5-5.1); Sodium Level 133 mmol/L (136-145)
[2019-05-17 07:10] LABS: Bedside Glucose 60 mg/dL (70-110)
[2019-05-17 07:10] LABS: Bedside Glucose 53 mg/dL (70-110)
[2019-05-17] MEDS: Pantoprazole Sodium 40 MG Tablet PO (09:12)
[2019-05-17] MEDS: Gabapentin 300 MG Capsule PO ×2 (09:12→17:08)
[2019-05-17] MEDS: Aspirin E.C. 81 MG Tablet PO (09:12)
[2019-05-17] MEDS: Pyridoxine HCl 100 MG Tablet PO (09:12)
[2019-05-17] MEDS: Lisinopril 20 MG Tablet PO (09:12)
[2019-05-17] MEDS: SEVELAMER CARBONATE 800 MG TABLET 3200 MG PO ×3 (09:12→17:02)
[2019-05-17] MEDS: Isosorbide Mononitrate 30 MG Tablet PO (09:12)
[2019-05-17] MEDS: Furosemide 40 MG Tablet PO ×2 (09:12→17:02)
[2019-05-17] MEDS: Fluticasone 0.05% 1 SPRAY NASAL.SRY NASAL (09:12)
[2019-05-17] MEDS: Folic Acid/Vitamin B Comp W-C 1 Capsule 1 CAP PO (09:12)
[2019-05-17] MEDS: Insulin Lispro 100 UNIT/ML INSULN.PEN 15 UNIT SC ×3 (09:13→17:02)
[2019-05-17] MEDS: Insulin Lispro 100 UNIT/ML INSULN.PEN SC ×2 (09:13→13:03)
[2019-05-17] MEDS: Metoprolol Tartrate 50 MG Tablet PO ×2 (09:20→23:09)
[2019-05-17 10:10] LABS: Bedside Glucose 206 mg/dL (70-110)
--- NOTE | 2019-05-17 10:47 | PN_ITS ---
Patient Problems: Active and Suspected Problems (Last Updated 03/12/19 @ 17:43 by Kayla Tamayo MD) Diabetic foot infection (Acute) Bilateral foot wounds (Acute) Subjective: Feeling better, sitting up and eating breakfast today. States that his right lower extremity is a little bit sore but otherwise tolerable Vitals/I&O's: Vital Signs Temp Pulse Resp BP Pulse Ox 98.6 F 64 16 165/62 H 96 05/17/19 09:23 05/17/19 10:06 05/17/19 10:06 05/17/19 09:23 05/17/19 09:23 Oxygen Flow Rate (L/min) 2 Oxygen Delivery Method Nasal Cannula Weight: 263 lb 6.392 oz Body Mass Index (BMI) 41.2 Finger Stick Blood Glucose 191 Intake and Output for Last 24 Hours 05/15/19 05/16/19 05/17/19 23:59 23:59 23:59 Intake Total 2105 / 2105 175.00 / 645.00 1062.75 / 1062.75 Output Total 250 / 250 9675 / 9675 250 / 250 Balance 1855 / 1855 -9500.00 / -9030.00 812.75 / 812.75 General: Alert, Oriented x3, Cooperative, No apparent distress HEENT: Atraumatic, PERRLA, EOMI, Normocephalic Oral: Moist Mucosa Neck: Supple, No JVD Lungs: Clear to auscultation, Normal air movement, No rhonchi, No wheeze, No rales Cardiovascular: Regular rate, Regular Rhythm, Normal S1, Normal S2, No murmurs Abdomen: Soft, Non Tender, Non-Distended, No Hepato-splenomegaly Extremities: Capillary Refill Less than 3 Seconds, Edema - Slight Skin: Ulcer/ Wound - Bilateral lower extremity dressings intact Neurological: Neuro grossly intact, Sensory exam intact to light touch and pain Psych/Mental Status: Normal Affect, Appropriate Microbiology Past 72 Hours 05/14/19 22:20 Wound - Aerobic & Anaerobic Swabs Gram Stain - Final 05/14/19 22:20 Wound - Aerobic & Anaerobic Swabs Wound Culture - Preliminary Proteus vulgaris Enterococcus faecalis Escherichia coli Staphylococcus aureus 05/14/19 15:35 Blood Culture (Wb) - Left Wrist Blood Culture - Preliminary No growth in 48 hours. 05/14/19 15:25 Blood Culture (Wb) - Anticubital Left Blood Culture - Preliminary No growth in 48 hours. 05/14/19 22:28 Wound - Aerobic & Anaerobic Swabs Gram Stain - Final 05/14/19 22:28 Wound - Aerobic & Anaerobic Swabs Wound Culture - Preliminary Mixed Gram Positive Organisms Laboratory Results 05/15/19 21:54: POC Glucose 53 L 05/15/19 21:56: POC Glucose 60 L 05/16/19 07:57: POC Glucose 105 05/16/19 11:26: POC Glucose 122 H 05/16/19 17:51: POC Glucose 262 H 05/16/19 21:50: POC Glucose 117 H 05/17/19 06:05: WBC 7.2, RBC 3.16 L, Hgb 9.0 L, Hct 29.8 L, MCV 94.3 H, MCH 28.5, MCHC 30.2 L, RDW Std Deviation 52.1 H, RDW Coeff of Roberto 15.0 H, Plt Count 219, MPV 10.1, Immature Gran % (Auto) 2.100 H, Neut % (Auto) 63.9, Lymph % (Auto) 15.8 L, [place] % (Auto) 10.0, Eos % (Auto) 6.9 H, Baso % (Auto) 1.3 H, Absolute Neuts (auto) 4.6, Absolute Lymphs (auto) 1.14, Nucleated RBC % 0 05/17/19 06:05: Sodium 133 L, Potassium 4.2, Chloride 94 L, Carbon Dioxide 29.0, Anion Gap 10, BUN 25 H, Creatinine 4.99 H, Estim Creat Clear Calc 16.56, Est GFR (MDRD) Af Amer 16 L, Est GFR (MDRD) Non-Af 13 L, BUN/Creatinine Ratio 5.0 L, Glucose 143 H, Calcium 8.0 L 05/17/19 08:56: POC Glucose 206 H Current Medications Acetaminophen (Tylenol) 650 mg PO Q6H PRN PRN PRN Reason: Mild Pain (1-3)/Temp > 100.7 F Last Admin: 05/16/19 21:54 Dose: 650 mg Documented by: Aspirin (Ecotrin) 81 mg PO DAILY@0800 [facility] Last Admin: 05/17/19 09:12 Dose: 81 mg Documented by: Atorvastatin Calcium (Lipitor) 20 mg PO QHS [facility] Last Admin: 05/16/19 20:20 Dose: 20 mg Documented by: Cyclobenzaprine HCl (Flexeril) 10 mg PO TID PRN PRN PRN Reason: SPASMS Dextrose (D50w Syringe) 0 gm IV X1 PRN; Protocol PRN Reason: Hypoglycemia Fluticasone Propionate (Flonase Nasal [place]) 1 spray NASAL DAILY [facility] Last Admin: 05/17/19 09:12 Dose: 1 spray Documented by: Furosemide (Lasix) 40 mg PO BIDLX [facility] Last Admin: 05/17/19 09:12 Dose: 40 mg Documented by: Gabapentin (Neurontin) 300 mg PO BIDCM [facility] Last Admin: 05/17/19 09:12 Dose: 300 mg Documented by: Glucagon () 1 mg IM .X1 PRN PRN Reason: Hypoglycemia Guaifenesin (Robitussin Dm) 10 ml PO Q6H PRN PRN PRN Reason: CONGESTION Heparin Sodium (Porcine) (Heparin Na) 5,000 unit SC Q8 [facility] Last Admin: 05/17/19 06:02 Dose: 5,000 unit Documented by: Piperacillin Sod/Tazobactam (Sod 3.375 gm/ Sodium Chloride) 50 mls @ 12.5 mls/hr IV Q12 [facility] Last Infusion: 05/17/19 01:42 Dose: Infused Documented by: Insulin Human Lispro (Humalog Kwikpen (Bkc)) 15 unit SC TIDAC [facility] Last Admin: 05/17/19 09:13 Dose: 15 u Documented by: Insulin Human Lispro (Humalog Kwikpen (Bkc)) 0 unit SC ACHS [facility]; Protocol Last Admin: 05/17/19 09:13 Dose: 3 u Documented by: Insulin Human Regular (Humulin R U-500 (Bkc)) 50 units SC BIDAC [facility] Last Admin: 05/17/19 09:14 Dose: 50 units Documented by: Isosorbide Mononitrate (Imdur) 30 mg PO DAILY [facility] Last Admin: 05/17/19 09:12 Dose: 30 mg Documented by: Lisinopril (Zestril) 20 mg PO DAILY [facility] Last Admin: 05/17/19 09:12 Dose: 20 mg Documented by: Metoprolol Tartrate (Lopressor (Beta Emmanuel)) 50 mg PO BID [facility] Last Admin: 05/17/19 09:20 Dose: 50 mg Documented by: Morphine Sulfate () 4 mg IV Q3H PRN PRN PRN Reason: Pain Score 6-10/10 Last Admin: 05/17/19 09:09 Dose: 4 mg Documented by: Multivit/Ca Carb/B Cmplx/FA/Prenat (Nephrocaps, Renaphro) [facility] Last Admin: 05/17/19 09:12 Dose: 1 capsule Documented by: Ondansetron HCl (Zofran) 4 mg IV Q8H PRN PRN PRN Reason: NAUSEA/VOMITING Oxycodone HCl (Oxyir) 5 mg PO Q4H PRN PRN PRN Reason: Pain Score 6-10/10 Pantoprazole Sodium (Protonix) 40 mg PO DAILY [facility] Last Admin: 05/17/19 09:12 Dose: 40 mg Documented by: Pyridoxine HCl (Vitamin B-6) 100 mg PO DAILYCM [facility] Last Admin: 05/17/19 09:12 Dose: 100 mg Documented by: Sevelamer Carbonate (Renvela) 3,200 mg PO TIDCM [facility] Last Admin: 05/17/19 09:12 Dose: 3,200 mg Documented by: Sodium Chloride () 10 - 40 ml IV UD PRN PRN Reason: SALINE FLUSH Last Admin: 05/17/19 09:08 Dose: 10 ml Documented by: STROKE Vital Signs/Narrative: Vital Signs Temp Pulse Resp BP Pulse Ox 05/17/19 10:06 64 16 05/17/19 09:24 60 05/17/19 09:23 98.6 F 60 18 165/62 H 96 05/17/19 09:20 60 05/17/19 07:53 99 05/17/19 06:49 100 Medical Necessity - Tobacco Use Smoking Status: Never smoker Tobacco Use: Non-smoker Assessment/Plan All Active Problems (Last Updated 03/12/19 @ 17:43 by Kayla Tamayo MD) Diabetic foot infection (Acute) Bilateral foot wounds (Acute) Chest pain (Acute) 1. Right foot neuropathic ulceration with cellulitis as well as right foot osteomyelitis/type I DM/morbid obesity -Continue with IV Zosyn, cultures with Proteus, enterococcus, and E. coli. The enterococcus is ampicillin sensitive -OR 05/16/2019, status post right fifth metatarsal head resection for osteomyelitis -Continue with insulin and monitor with Accu-Cheks AC at bedtime -BMI is 41, discussed lifestyle modification 2. Chronic diastolic CHF/HTN/HLD toxic respiratory failure -His heart failure is currently not in exacerbation -Continue with aspirin, statin, Toprol, lisinopril, Lasix -Continue with chronic oxygen 3. End-stage renal disease secondary to diabetes/anemia of chronic disease -Continue with dialysis Saturdays -Appreciate nephrology assistance 4. GERD -Stable -Continue with PPI DVT: Heparin Code Visit Inpatient E&M: 03159 Subs Hosp L2
--- NOTE | 2019-05-17 11:35 | PN.RENAL_ITS ---
Patient Problems: Active and Suspected Problems (Last Updated 03/12/19 @ 17:43 by Kayla Tamayo MD) Diabetic foot infection (Acute) Bilateral foot wounds (Acute) Subjective: no new issues. Await disposition to [facility]. dialysis tomorrow - Physical Exam Vitals/I&O's: Vital Signs Temp Pulse Resp BP Pulse Ox 98.6 F 64 16 165/62 H 96 05/17/19 09:23 05/17/19 10:06 05/17/19 10:06 05/17/19 09:23 05/17/19 09:23 Oxygen Flow Rate (L/min) 2 Oxygen Delivery Method Nasal Cannula Weight: 119.476 kg Body Mass Index (BMI) 41.2 Finger Stick Blood Glucose 191 Intake and Output for Last 24 Hours 05/15/19 05/16/19 05/17/19 23:59 23:59 23:59 Intake Total 2105 / 2105 175.00 / 645.00 1062.75 / 1062.75 Output Total 250 / 250 9675 / 9675 250 / 250 Balance 1855 / 1855 -9500.00 / -9030.00 812.75 / 812.75 General: Alert, Oriented x3, Cooperative Lungs: Clear to auscultation Skin: Ulcer/ Wound - bilat feet wrapped Psych/Mental Status: Alert and oriented to time, place, person, mood and affect Microbiology Past 72 Hours 05/14/19 22:28 Wound - Aerobic & Anaerobic Swabs Gram Stain - Final 05/14/19 22:28 Wound - Aerobic & Anaerobic Swabs Wound Culture - Preliminary Mixed Gram Positive Organisms 05/14/19 22:28 Wound - Aerobic & Anaerobic Swabs Anaerobic Culture - Preliminary Checking for anaerobes, further studies to follow. 05/14/19 22:20 Wound - Aerobic & Anaerobic Swabs Gram Stain - Final 05/14/19 22:20 Wound - Aerobic & Anaerobic Swabs Wound Culture - Preliminary Proteus vulgaris Enterococcus faecalis Escherichia coli Staphylococcus aureus 05/14/19 15:35 Blood Culture (Wb) - Left Wrist Blood Culture - Preliminary No growth in 48 hours. 05/14/19 15:25 Blood Culture (Wb) - Anticubital Left Blood Culture - Preliminary No growth in 48 hours. Laboratory Results 05/15/19 21:54: POC Glucose 53 L 05/15/19 21:56: POC Glucose 60 L 05/16/19 07:57: POC Glucose 105 05/16/19 11:26: POC Glucose 122 H 05/16/19 17:51: POC Glucose 262 H 05/16/19 21:50: POC Glucose 117 H 05/17/19 06:05: WBC 7.2, RBC 3.16 L, Hgb 9.0 L, Hct 29.8 L, MCV 94.3 H, MCH 28.5, MCHC 30.2 L, RDW Std Deviation 52.1 H, RDW Coeff of Roberto 15.0 H, Plt Count 219, MPV 10.1, Immature Gran % (Auto) 2.100 H, Neut % (Auto) 63.9, Lymph % (Auto) 15.8 L, [place] % (Auto) 10.0, Eos % (Auto) 6.9 H, Baso % (Auto) 1.3 H, Absolute Neuts (auto) 4.6, Absolute Lymphs (auto) 1.14, Nucleated RBC % 0 05/17/19 06:05: Sodium 133 L, Potassium 4.2, Chloride 94 L, Carbon Dioxide 29.0, Anion Gap 10, BUN 25 H, Creatinine 4.99 H, Estim Creat Clear Calc 16.56, Est GFR (MDRD) Af Amer 16 L, Est GFR (MDRD) Non-Af 13 L, BUN/Creatinine Ratio 5.0 L, Glucose 143 H, Calcium 8.0 L 05/17/19 08:56: POC Glucose 206 H Current Medications Acetaminophen (Tylenol) 650 mg PO Q6H PRN PRN PRN Reason: Mild Pain (1-3)/Temp > 100.7 F Last Admin: 05/16/19 21:54 Dose: 650 mg Documented by: Aspirin (Ecotrin) 81 mg PO DAILY@0800 [facility] Last Admin: 05/17/19 09:12 Dose: 81 mg Documented by: Atorvastatin Calcium (Lipitor) 20 mg PO QHS [facility] Last Admin: 05/16/19 20:20 Dose: 20 mg Documented by: Cyclobenzaprine HCl (Flexeril) 10 mg PO TID PRN PRN PRN Reason: SPASMS Dextrose (D50w Syringe) 0 gm IV X1 PRN; Protocol PRN Reason: Hypoglycemia Fluticasone Propionate (Flonase Nasal [place]) 1 spray NASAL DAILY [facility] Last Admin: 05/17/19 09:12 Dose: 1 spray Documented by: Furosemide (Lasix) 40 mg PO BIDLX [facility] Last Admin: 05/17/19 09:12 Dose: 40 mg Documented by: Gabapentin (Neurontin) 300 mg PO BIDCM [facility] Last Admin: 05/17/19 09:12 Dose: 300 mg Documented by: Glucagon () 1 mg IM .X1 PRN PRN Reason: Hypoglycemia Guaifenesin (Robitussin Dm) 10 ml PO Q6H PRN PRN PRN Reason: CONGESTION Heparin Sodium (Porcine) (Heparin Na) 5,000 unit SC Q8 [facility] Last Admin: 05/17/19 06:02 Dose: 5,000 unit Documented by: Piperacillin Sod/Tazobactam (Sod 3.375 gm/ Sodium Chloride) 50 mls @ 12.5 mls/hr IV Q12 [facility] Last Admin: 05/17/19 11:15 Dose: 12.5 mls/hr Documented by: Sodium Chloride () 250 mls @ 15 mls/hr IV .[id number] PRN PRN Reason: Saline Flush Insulin Human Lispro (Humalog Kwikpen (Bkc)) 15 unit SC TIDAC [facility] Last Admin: 05/17/19 09:13 Dose: 15 u Documented by: Insulin Human Lispro (Humalog Kwikpen (Bkc)) 0 unit SC ACHS [facility]; Protocol Last Admin: 05/17/19 09:13 Dose: 3 u Documented by: Insulin Human Regular (Humulin R U-500 (Bk)) 50 units SC BIDAC [facility] Last Admin: 05/17/19 09:14 Dose: 50 units Documented by: Isosorbide Mononitrate (Imdur) 30 mg PO DAILY [facility] Last Admin: 05/17/19 09:12 Dose: 30 mg Documented by: Lisinopril (Zestril) 20 mg PO DAILY [facility] Last Admin: 05/17/19 09:12 Dose: 20 mg Documented by: Metoprolol Tartrate (Lopressor (Beta Emmanuel)) 50 mg PO BID [facility] Last Admin: 05/17/19 09:20 Dose: 50 mg Documented by: Morphine Sulfate () 4 mg IV Q3H PRN PRN PRN Reason: Pain Score 6-10/10 Last Admin: 05/17/19 09:09 Dose: 4 mg Documented by: Multivit/Ca Carb/B Cmplx/FA/Prenat (Nephrocaps, Renaphro) [facility] Last Admin: 05/17/19 09:12 Dose: 1 capsule Documented by: Ondansetron HCl (Zofran) 4 mg IV Q8H PRN PRN PRN Reason: NAUSEA/VOMITING Oxycodone HCl (Oxyir) 5 mg PO Q4H PRN PRN PRN Reason: Pain Score 6-10/10 Pantoprazole Sodium (Protonix) 40 mg PO DAILY [facility] Last Admin: 05/17/19 09:12 Dose: 40 mg Documented by: Pyridoxine HCl (Vitamin B-6) 100 mg PO DAILYCM [facility] Last Admin: 05/17/19 09:12 Dose: 100 mg Documented by: Sevelamer Carbonate (Renvela) 3,200 mg PO TIDCM [facility] Last Admin: 05/17/19 09:12 Dose: 3,200 mg Documented by: Sodium Chloride () 10 - 40 ml IV UD PRN PRN Reason: SALINE FLUSH Last Admin: 05/17/19 11:16 Dose: 10 ml Documented by: Medical Necessity - Tobacco Use Smoking Status: Never smoker Tobacco Use: Non-smoker Assessment/Plan All Active Problems (Last Updated 03/12/19 @ 17:43 by Kayla Tamayo MD) Diabetic foot infection (Acute) Bilateral foot wounds (Acute) Chest pain (Acute) 1. ESRD HD THS. Dialysis next on Sat Await approval to [facility] 2. Diabetic foot infection iv antibx, s/p debridement 3. Anemia TERESA therapy 4. HTN stable 5. DM2 primary service mgmt 6. morbid obesity 7. Hyperphosphatemia, increased binders
[2019-05-17 12:21] LABS: Bedside Glucose 154 mg/dL (70-110)
--- NOTE | 2019-05-17 12:50 | PCM.RX.CS ---
Consult Pharmacy has been consulted to manage selected antiobiotic: Vancomycin Type of Consult: New start Prior Doses of Antibiotics Received/Current Regimen: Medications Vancomycin HCl 2,000 mg/ (Sodium Chloride) 540 mls @ 250 mls/hr IV X1 ONE Stop: 05/17/19 15:39 Discontinued Medications Vancomycin HCl 1,750 mg/ (Sodium Chloride) 535 mls @ 250 mls/hr IV X1 ONE Stop: 05/14/19 23:23 Last Admin: 05/15/19 00:01 Dose: Infused Documented by: Labs: Sodium 133 mmol/L (136-145) L 05/17/19 06:05 Potassium 4.2 mmol/L (3.5-5.1) 05/17/19 06:05 Chloride 94 mmol/L (98-107) L 05/17/19 06:05 Carbon Dioxide 29.0 mmol/L (21.0-32.0) 05/17/19 06:05 Anion Gap 10 (5-15) 05/17/19 06:05 BUN 25 mg/dL (7-18) H 05/17/19 06:05 Creatinine 4.99 mg/dL (0.70-1.30) H 05/17/19 06:05 Est GFR (MDRD) Af Amer 16 mL/min (>60) L 05/17/19 06:05 Est GFR (MDRD) Non-Af 13 mL/min (>60) L 05/17/19 06:05 BUN/Creatinine Ratio 5.0 RATIO (10-20) L 05/17/19 06:05 Glucose 143 mg/dL (74-106) H 05/17/19 06:05 Microbiology: Microbiology 05/14/19 22:28 Wound - Aerobic & Anaerobic Swabs Gram Stain - Final 05/14/19 22:28 Wound - Aerobic & Anaerobic Swabs Wound Culture - Preliminary Staphylococcus species Staphylococcus species#2 Gram positive renee 05/14/19 22:28 Wound - Aerobic & Anaerobic Swabs Anaerobic Culture - Preliminary Checking for anaerobes, further studies to follow. 05/14/19 22:20 Wound - Aerobic & Anaerobic Swabs Gram Stain - Final 05/14/19 22:20 Wound - Aerobic & Anaerobic Swabs Wound Culture - Preliminary Proteus vulgaris Enterococcus faecalis Escherichia coli Staphylococcus aureus 05/14/19 15:35 Blood Culture (Wb) - Left Wrist Blood Culture - Preliminary No growth in 48 hours. 05/14/19 15:25 Blood Culture (Wb) - Anticubital Left Blood Culture - Preliminary No growth in 48 hours. Weight used for dosin kg Estimated Creatinine Clearance: Dialysis Goal Trough: 15-20 mcg/mL Pharmacy Plan for Drug Dosinmg vancomycin IV x1 now, 1000mg IV after next dialysis with level prior to following dialysis session per policy. Pharmacy Service will continue to monitor and adjust dosing as required. Follow-Up Labs: Trough Vancomycin - Random 05/21 @ 0600
[2019-05-17] MEDS: oxyCODONE 5 MG Tablet PO (13:06)
--- NOTE | 2019-05-17 13:26 | PCM.PN.ID ---
Patient Problems: Active and Suspected Problems (Last Updated 03/12/19 @ 17:43 by Kayla Tamayo MD) Diabetic foot infection (Acute) Bilateral foot wounds (Acute) Subjective: Feeling alright, no fever, no n/v/d - Physical Exam Vitals/I&O's: Vital Signs Temp Pulse Resp BP Pulse Ox 98.6 F 64 16 165/62 H 96 05/17/19 09:23 05/17/19 10:06 05/17/19 10:06 05/17/19 09:23 05/17/19 09:23 Oxygen Flow Rate (L/min) 2 Oxygen Delivery Method Nasal Cannula Weight: 119.476 kg Body Mass Index (BMI) 41.2 Finger Stick Blood Glucose 191 Intake and Output for Last 24 Hours 05/15/19 05/16/19 05/17/19 23:59 23:59 23:59 Intake Total 2105 / 2105 175.00 / 645.00 1912.75 / 1912.75 Output Total 250 / 250 9675 / 9675 250 / 250 Balance 1855 / 1855 -9500.00 / -9030.00 1662.75 / 1662.75 General: Alert, Cooperative, No apparent distress Lungs: Clear to auscultation, Normal air movement Cardiovascular: Regular rate, Regular Rhythm Abdomen: Soft, Non Tender, Non-Distended Skin: Ulcer/ Wound - foot wrapped Microbiology Past 72 Hours 05/14/19 22:28 Wound - Aerobic & Anaerobic Swabs Gram Stain - Final 05/14/19 22:28 Wound - Aerobic & Anaerobic Swabs Wound Culture - Preliminary Staphylococcus species Staphylococcus species#2 Gram positive renee 05/14/19 22:28 Wound - Aerobic & Anaerobic Swabs Anaerobic Culture - Preliminary Checking for anaerobes, further studies to follow. 05/14/19 22:20 Wound - Aerobic & Anaerobic Swabs Gram Stain - Final 05/14/19 22:20 Wound - Aerobic & Anaerobic Swabs Wound Culture - Preliminary Proteus vulgaris Enterococcus faecalis Escherichia coli Staphylococcus aureus 05/14/19 15:35 Blood Culture (Wb) - Left Wrist Blood Culture - Preliminary No growth in 48 hours. 05/14/19 15:25 Blood Culture (Wb) - Anticubital Left Blood Culture - Preliminary No growth in 48 hours. Laboratory Results 05/15/19 21:54: POC Glucose 53 L 05/15/19 21:56: POC Glucose 60 L 05/16/19 17:51: POC Glucose 262 H 05/16/19 21:50: POC Glucose 117 H 05/17/19 06:05: WBC 7.2, RBC 3.16 L, Hgb 9.0 L, Hct 29.8 L, MCV 94.3 H, MCH 28.5, MCHC 30.2 L, RDW Std Deviation 52.1 H, RDW Coeff of Roberto 15.0 H, Plt Count 219, MPV 10.1, Immature Gran % (Auto) 2.100 H, Neut % (Auto) 63.9, Lymph % (Auto) 15.8 L, [place] % (Auto) 10.0, Eos % (Auto) 6.9 H, Baso % (Auto) 1.3 H, Absolute Neuts (auto) 4.6, Absolute Lymphs (auto) 1.14, Nucleated RBC % 0 05/17/19 06:05: Sodium 133 L, Potassium 4.2, Chloride 94 L, Carbon Dioxide 29.0, Anion Gap 10, BUN 25 H, Creatinine 4.99 H, Estim Creat Clear Calc 16.56, Est GFR (MDRD) Af Amer 16 L, Est GFR (MDRD) Non-Af 13 L, BUN/Creatinine Ratio 5.0 L, Glucose 143 H, Calcium 8.0 L 05/17/19 08:56: POC Glucose 206 H 05/17/19 12:13: POC Glucose 154 H Current Medications Acetaminophen (Tylenol) 650 mg PO Q6H PRN PRN PRN Reason: Mild Pain (1-3)/Temp > 100.7 F Last Admin: 05/16/19 21:54 Dose: 650 mg Documented by: Aspirin (Ecotrin) 81 mg PO DAILY@0800 [facility] Last Admin: 05/17/19 09:12 Dose: 81 mg Documented by: Atorvastatin Calcium (Lipitor) 20 mg PO QHS [facility] Last Admin: 05/16/19 20:20 Dose: 20 mg Documented by: Cyclobenzaprine HCl (Flexeril) 10 mg PO TID PRN PRN PRN Reason: SPASMS Dextrose (D50w Syringe) 0 gm IV X1 PRN; Protocol PRN Reason: Hypoglycemia Fluticasone Propionate (Flonase Nasal [place]) 1 spray NASAL DAILY [facility] Last Admin: 05/17/19 09:12 Dose: 1 spray Documented by: Furosemide (Lasix) 40 mg PO BIDLX [facility] Last Admin: 05/17/19 09:12 Dose: 40 mg Documented by: Gabapentin (Neurontin) 300 mg PO BIDCM [facility] Last Admin: 05/17/19 09:12 Dose: 300 mg Documented by: Glucagon () 1 mg IM .X1 PRN PRN Reason: Hypoglycemia Guaifenesin (Robitussin Dm) 10 ml PO Q6H PRN PRN PRN Reason: CONGESTION Heparin Sodium (Porcine) (Heparin Na) 5,000 unit SC Q8 [facility] Last Admin: 05/17/19 13:08 Dose: 5,000 unit Documented by: Sodium Chloride () 250 mls @ 15 mls/hr IV .[id number] PRN PRN Reason: Saline Flush Vancomycin IV Pharmacy to Dose (1 ea/ Sodium Chloride) 500 mls @ 250 mls/hr IV X1 PRN; Protocol PRN Reason: Rx to Dose Cefepime HCl 1 gm/ Sodium (Chloride) 50 mls @ 100 mls/hr IV Q24H [facility] Vancomycin HCl 2,000 mg/ (Sodium Chloride) 540 mls @ 250 mls/hr IV X1 ONE Stop: 05/17/19 15:39 Vancomycin HCl (Vancomycin) 1,000 mg in 200 mls @ 200 mls/hr IV X1 ONE Stop: 05/18/19 18:59 Insulin Human Lispro (Humalog Kwikpen (Bkc)) 15 unit SC TIDAC [facility] Last Admin: 05/17/19 13:02 Dose: 15 u Documented by: Insulin Human Lispro (Humalog Kwikpen (Bkc)) 0 unit SC ACHS [facility]; Protocol Last Admin: 05/17/19 13:03 Dose: 3 u Documented by: Insulin Human Regular (Humulin R U-500 (Bk)) 50 units SC BIDAC [facility] Last Admin: 05/17/19 09:14 Dose: 50 units Documented by: Isosorbide Mononitrate (Imdur) 30 mg PO DAILY [facility] Last Admin: 05/17/19 09:12 Dose: 30 mg Documented by: Lisinopril (Zestril) 20 mg PO DAILY [facility] Last Admin: 05/17/19 09:12 Dose: 20 mg Documented by: Metoprolol Tartrate (Lopressor (Beta Emmanuel)) 50 mg PO BID [facility] Last Admin: 05/17/19 09:20 Dose: 50 mg Documented by: Metronidazole (Flagyl) 500 mg PO TID [facility] Morphine Sulfate () 4 mg IV Q3H PRN PRN PRN Reason: Pain Score 6-10/10 Last Admin: 05/17/19 09:09 Dose: 4 mg Documented by: Multivit/Ca Carb/B Cmplx/FA/Prenat ([facility], [facility]) [facility] Last Admin: 05/17/19 09:12 Dose: 1 capsule Documented by: Ondansetron HCl (Zofran) 4 mg IV Q8H PRN PRN PRN Reason: NAUSEA/VOMITING Oxycodone HCl (Oxyir) 5 mg PO Q4H PRN PRN PRN Reason: Pain Score 6-10/10 Last Admin: 05/17/19 13:06 Dose: 5 mg Documented by: Pantoprazole Sodium (Protonix) 40 mg PO DAILY [facility] Last Admin: 05/17/19 09:12 Dose: 40 mg Documented by: Pyridoxine HCl (Vitamin B-6) [facility] Last Admin: 05/17/19 09:12 Dose: 100 mg Documented by: Sevelamer Carbonate (Renvela) 3,200 mg PO TIDCM [facility] Last Admin: 05/17/19 13:04 Dose: 3,200 mg Documented by: Sodium Chloride () 10 - 40 ml IV UD PRN PRN Reason: SALINE FLUSH Last Admin: 05/17/19 11:16 Dose: 10 ml Documented by: Medical Necessity - Tobacco Use Smoking Status: Never smoker Tobacco Use: Non-smoker Route of nutrition/ use of supplements: [] Nutritional Intake: [] IV Site: [] Kuo Catheter: [] - Assessment/Plan Antibiotics: [] Assessment/Plan: [] Active and Suspected Problems (Last Updated 03/12/19 @ 17:43 by Kayla Tamayo MD) Diabetic foot infection (Acute) Bilateral foot wounds (Acute) R foot osteo - wound cx with staph x2, GPR, proteus, enterococcus, ecoli. Surgery with 5th met resection 05/16/[address] Bravo. Prior cx with enterococcus, bacillus, corynebacteria, anaerobes. Plan for discharge will be 6 weeks of vanc and cefepime dosed with HD on along with po flagyl. Stop date 06/27/19. Weekly labs. Wrote rx. D/w case work aide. ID followup in 2-3 weeks. Will follow.
--- NOTE | 2019-05-17 13:48 | CASEMGMT ---
Addendum entered by Lizet Parkinson 05/17/19 14:13: SW completed hospital exemption in the [facility] system. TRENTON Nye Original Note: SW assisted pt in completing LW. SW gave pt original and copies and placed a copy on the chart. SW also let pt know that [facility] can take him pending precert. Pt states understanding. TRENTON Nye
[2019-05-17] MEDS: Acetaminophen 325 MG Tablet 650 MG PO (14:19)
[2019-05-17] MEDS: metroNIDAZOLE 500 MG Tablet PO ×2 (14:24→23:08)
--- NOTE | 2019-05-17 15:09 | CASEMGMT ---
Addendum entered by Ade Kitchen 05/17/19 15:26: SW placed green sheet, transportation form and convalescent 7000 on pt's chart in the event pre-cert is obtained. Original Note: Social Work Note WILFREDO faxed updated clinicals to [facility]. WILFREDO spoke with Mallory at [facility] who states pre-cert is still pending. WILFREDO updated Mallory that this worker is hoping to leave in about an hour. Mallory states she will call [facility] number if pre-cert is still obtained after this worker leaves for the day. Plan: [facility] pending pre-cert Ade Kitchen [employer], [employer]
--- NOTE | 2019-05-17 15:38 | PCM.PROGNOTE ---
Patient Problems: Active and Suspected Problems (Last Updated 03/12/19 @ 17:43 by Kayla Tamayo MD) Diabetic foot infection (Acute) Bilateral foot wounds (Acute) Subjective: This 48 year old M with significant past medical history of diabetes with neuropathy, h/o anemia, chronic kidney disease on hemodialysis, peripheral vascular disease status post intervention, hypertension, hyperlipidemia, sleep apnea, obesity was seen post operative day #1 right fifth ray resection for treatment of ulcer, osteomyelitis, and cellulitis. He denies fever, nausea, vomiting, chest pain, calf pain, shortness of breath. He has intermittent chills. His pain is intermittent and controlled at this time. He continues antibiotics. - Physical Exam Vitals/I&O's: Vital Signs Temp Pulse Resp BP Pulse Ox 98.1 F 61 16 152/78 H 100 05/17/19 14:16 05/17/19 14:16 05/17/19 14:16 05/17/19 14:16 05/17/19 14:16 Oxygen Flow Rate (L/min) 3 Oxygen Delivery Method Nasal Cannula Weight: 119.476 kg Body Mass Index (BMI) 41.2 Finger Stick Blood Glucose 191 Intake and Output for Last 24 Hours 05/15/19 05/16/19 05/17/19 23:59 23:59 23:59 Intake Total 2105 / 2105 175.00 / 645.00 1912.75 / 1912.75 Output Total 250 / 250 9675 / 9675 250 / 250 Balance 1855 / 1855 -9500.00 / -9030.00 1662.75 / 1662.75 General: Alert, Oriented x3, Cooperative HEENT: Atraumatic Extremities: No cyanosis, Capillary Refill Less than 3 Seconds, No Calf Tenderness - negative ele and is[place] signs bilateral, Diminished Peripheral Pulses, Edema - decreased right foot, - - compartments soft right lower extremity Skin: Incision - well aligned and coapted with retention sutures intact. no purulence, no erythema, no odor, no necrosis, no infection noted. capillary fill time is brisk to dorsal and plantar aspect of the amputation site Musculoskeletal: Muscle Wasting, Tenderness - tenderness to palpate fifth ray resection site, right Neurological: - - lack of normal epicritic sensation via light touch is consistent with neuropathy Psych/Mental Status: Normal Affect, Appropriate Microbiology Past 72 Hours 05/16/19 16:31 Tissue - Right Foot Gram Stain - Final 05/16/19 16:31 Tissue - Right Foot Wound Culture - Preliminary No growth-Final to follow 05/16/19 16:30 Tissue - Right Foot Gram Stain - Final 05/16/19 16:30 Tissue - Right Foot Wound Culture - Preliminary No growth-Final to follow 05/14/19 22:28 Wound - Aerobic & Anaerobic Swabs Gram Stain - Final 05/14/19 22:28 Wound - Aerobic & Anaerobic Swabs Wound Culture - Preliminary Staphylococcus species Staphylococcus species#2 Gram positive renee 05/14/19 22:28 Wound - Aerobic & Anaerobic Swabs Anaerobic Culture - Preliminary Checking for anaerobes, further studies to follow. 05/14/19 22:20 Wound - Aerobic & Anaerobic Swabs Gram Stain - Final 05/14/19 22:20 Wound - Aerobic & Anaerobic Swabs Wound Culture - Preliminary Proteus vulgaris Enterococcus faecalis Escherichia coli Staphylococcus aureus 05/14/19 15:35 Blood Culture (Wb) - Left Wrist Blood Culture - Preliminary No growth in 48 hours. 05/14/19 15:25 Blood Culture (Wb) - Anticubital Left Blood Culture - Preliminary No growth in 48 hours. Laboratory Results 05/15/19 21:54: POC Glucose 53 L 05/15/19 21:56: POC Glucose 60 L 05/16/19 17:51: POC Glucose 262 H 05/16/19 21:50: POC Glucose 117 H 05/17/19 06:05: WBC 7.2, RBC 3.16 L, Hgb 9.0 L, Hct 29.8 L, MCV 94.3 H, MCH 28.5, MCHC 30.2 L, RDW Std Deviation 52.1 H, RDW Coeff of Roberto 15.0 H, Plt Count 219, MPV 10.1, Immature Gran % (Auto) 2.100 H, Neut % (Auto) 63.9, Lymph % (Auto) 15.8 L, [place] % (Auto) 10.0, Eos % (Auto) 6.9 H, Baso % (Auto) 1.3 H, Absolute Neuts (auto) 4.6, Absolute Lymphs (auto) 1.14, Nucleated RBC % 0 05/17/19 06:05: Sodium 133 L, Potassium 4.2, Chloride 94 L, Carbon Dioxide 29.0, Anion Gap 10, BUN 25 H, Creatinine 4.99 H, Estim Creat Clear Calc 16.56, Est GFR (MDRD) Af Amer 16 L, Est GFR (MDRD) Non-Af 13 L, BUN/Creatinine Ratio 5.0 L, Glucose 143 H, Calcium 8.0 L 05/17/19 08:56: POC Glucose 206 H 05/17/19 12:13: POC Glucose 154 H Current Medications Acetaminophen (Tylenol) 650 mg PO Q6H PRN PRN PRN Reason: Mild Pain (1-3)/Temp > 100.7 F Last Admin: 05/17/19 14:19 Dose: 650 mg Documented by: Aspirin (Ecotrin) 81 mg PO DAILY@0800 [facility] Last Admin: 05/17/19 09:12 Dose: 81 mg Documented by: Atorvastatin Calcium (Lipitor) 20 mg PO QHS [facility] Last Admin: 05/16/19 20:20 Dose: 20 mg Documented by: Cyclobenzaprine HCl (Flexeril) 10 mg PO TID PRN PRN PRN Reason: SPASMS Dextrose (D50w Syringe) 0 gm IV X1 PRN; Protocol PRN Reason: Hypoglycemia Fluticasone Propionate (Flonase Nasal [place]) 1 spray NASAL DAILY [facility] Last Admin: 05/17/19 09:12 Dose: 1 spray Documented by: Furosemide (Lasix) 40 mg PO BIDLX [facility] Last Admin: 05/17/19 09:12 Dose: 40 mg Documented by: Gabapentin (Neurontin) 300 mg PO BIDCM [facility] Last Admin: 05/17/19 09:12 Dose: 300 mg Documented by: Glucagon () 1 mg IM .X1 PRN PRN Reason: Hypoglycemia Guaifenesin (Robitussin Dm) 10 ml PO Q6H PRN PRN PRN Reason: CONGESTION Heparin Sodium (Porcine) (Heparin Na) 5,000 unit SC Q8 [facility] Last Admin: 05/17/19 13:08 Dose: 5,000 unit Documented by: Sodium Chloride () 250 mls @ 15 mls/hr IV .[id number] PRN PRN Reason: Saline Flush Vancomycin IV Pharmacy to Dose (1 ea/ Sodium Chloride) 500 mls @ 250 mls/hr IV X1 PRN; Protocol PRN Reason: Rx to Dose Cefepime HCl 1 gm/ Sodium (Chloride) 50 mls @ 100 mls/hr IV Q24H [facility] Vancomycin HCl 2,000 mg/ (Sodium Chloride) 540 mls @ 250 mls/hr IV X1 ONE Stop: 05/17/19 15:39 Vancomycin HCl (Vancomycin) 1,000 mg in 200 mls @ 200 mls/hr IV X1 ONE Stop: 05/18/19 18:59 Insulin Human Lispro (Humalog Kwikpen (Bkc)) 15 unit SC TIDAC [facility] Last Admin: 05/17/19 13:02 Dose: 15 u Documented by: Insulin Human Lispro (Humalog Kwikpen (Bkc)) 0 unit SC ACHS [facility]; Protocol Last Admin: 05/17/19 13:03 Dose: 3 u Documented by: Insulin Human Regular (Humulin R U-500 ([facility])) 50 units SC BIDAC [facility] Last Admin: 05/17/19 09:14 Dose: 50 units Documented by: Isosorbide Mononitrate (Imdur) 30 mg PO DAILY [facility] Last Admin: 05/17/19 09:12 Dose: 30 mg Documented by: Lisinopril (Zestril) 20 mg PO DAILY [facility] Last Admin: 05/17/19 09:12 Dose: 20 mg Documented by: Metoprolol Tartrate (Lopressor (Beta Emmanuel)) 50 mg PO BID [facility] Last Admin: 05/17/19 09:20 Dose: 50 mg Documented by: Metronidazole (Flagyl) 500 mg PO TID [facility] Last Admin: 05/17/19 14:24 Dose: 500 mg Documented by: Morphine Sulfate () 4 mg IV Q3H PRN PRN PRN Reason: Pain Score 6-10/10 Last Admin: 05/17/19 09:09 Dose: 4 mg Documented by: Multivit/Ca Carb/B Cmplx/FA/Prenat ([facility]rocaps, [facility]) [facility] Admin: 05/17/19 09:12 Dose: 1 capsule Documented by: Ondansetron HCl (Zofran) 4 mg IV Q8H PRN PRN PRN Reason: NAUSEA/VOMITING Oxycodone HCl (Oxyir) 5 mg PO Q4H PRN PRN PRN Reason: Pain Score 6-10/10 Last Admin: 05/17/19 13:06 Dose: 5 mg Documented by: Pantoprazole Sodium (Protonix) 40 mg PO DAILY [facility] Last Admin: 05/17/19 09:12 Dose: 40 mg Documented by: Pyridoxine HCl (Vitamin B-6) 100 mg PO DAILYCM [facility] Last Admin: 05/17/19 09:12 Dose: 100 mg Documented by: Sevelamer Carbonate (Renvela) 3,200 mg PO TIDCM [facility] Last Admin: 05/17/19 13:04 Dose: 3,200 mg Documented by: Sodium Chloride () 10 - 40 ml IV UD PRN PRN Reason: SALINE FLUSH Last Admin: 05/17/19 11:16 Dose: 10 ml Documented by: Medical Necessity - Tobacco Use Smoking Status: Never smoker Tobacco Use: Non-smoker Assessment/Plan All Active Problems (Last Updated 03/12/19 @ 17:43 by Kayla Tamayo MD) Diabetic foot infection (Acute) Bilateral foot wounds (Acute) Chest pain (Acute) POD #1 right fifth ray resection with retention closure performed secondary to fifth metatarsal head osteomyelitis and chronic ulcer with cellulitis Diabetes with neuropathy (hemoglobin A1C 12% in 03/21) Left [place] grade 1 diabetic foot ulcer lateral fifth metatarsal head with cellulitis and hematogenous bulla that was debrided Foot deformities including hammertoes and tailor bunion bilateral Peripheral vascular disease Other comorbidities including noncompliance, renal disease on dialysis, cardiac history, anemia Malnutrition suspected Mechanical fall with right leg injury Gait instability I reviewed and discussed his case. He is afebrile with vital signs stable. He does not have leukocytosis. Intra operative clearance fragments were sent to microbiology and pathology; pending. To continue IV vanco and cefepime with hemodialysis with oral flagyl; stop date is 06-27-19. Infectious disease consult is appreciated. To maintain a non weightbearing status right lower extremity. Dressing was changed today with betadine gauze, gauze, kerlix, and lily wrap right foot. I will continue to follow while in house. half-way facility placement is recommended and placement is pending. Medical management DVT prophylaxis per primary team is greatly appreciated. Recommend nutritional supplementation optimize healing. Please not hesitate to call for any questions. Brea Bravo DPM, [facility] [phone]
[2019-05-17] MEDS: proMETHazine 25 MG/ML Syringe 12.5 MG IV (16:57)
[2019-05-17 17:40] LABS: Bedside Glucose 132 mg/dL (70-110)
[2019-05-17] MEDS: Ondansetron 4 MG/2 ML Vial IV (18:45)
[2019-05-17] MEDS: Atorvastatin Calcium 20 MG Tablet PO (23:09)
--- NOTE | 2019-05-17 23:38 | NURSING ---
lab notified of stat glucose backup draw
[2019-05-18] VITALS (8 sets, daily range): BP systolic 142–167; BP diastolic 58–72; PULSE 70–77; RESP 16–20; TEMP 36.4–37.2; O2SAT 92–99
[2019-05-18] MEDS: Dextrose 50%-Water 25 GM/50 ML DISP.SYRIN IV (00:12)
[2019-05-18 00:14] LABS: Glucose 50 mg/dL (74-106)
[2019-05-18] MEDS: proMETHazine 25 MG/ML Syringe 12.5 MG IV (00:21)
[2019-05-18 00:51] LABS: Bedside Glucose 55 mg/dL (70-110)
[2019-05-18 00:51] LABS: Bedside Glucose 102 mg/dL (70-110)
[2019-05-18 00:51] LABS: Bedside Glucose 44 mg/dL (70-110)
[2019-05-18] MEDS: 0.9% Saline Lock 10 ML Syringe IV ×3 (02:23→22:42)
[2019-05-18 02:50] LABS: Bedside Glucose 90 mg/dL (70-110)
[2019-05-18] MEDS: oxyCODONE 5 MG Tablet PO ×3 (04:43→22:42)
[2019-05-18] MEDS: Ondansetron 4 MG/2 ML Vial IV (04:44)
[2019-05-18] MEDS: Heparin Injection (Vial) 5,000 UNIT/ML VIAL 5000 UNIT SC ×2 (05:01→22:29)
[2019-05-18] MEDS: metroNIDAZOLE 500 MG Tablet PO ×3 (05:05→22:30)
[2019-05-18 05:25] LABS: Bedside Glucose 115 mg/dL (70-110)
[2019-05-18 07:11] LABS: Anion Gap 11 (5-15); BUN 39 mg/dL (7-18); BUN/Creat Ratio 6.1 RATIO (10-20); Calcium,Total 7.7 mg/dL (8.5-10.1); Chloride 101 mmol/L (98-107); Creatinine, Serum 6.42 mg/dL (0.70-1.30); EST Glomerular Filtration Rate 10 mL/min (>60); Est Glom Filt Rate - Afr Amer 12 mL/min (>60); Estimated Creatinine Clearance 12.87 ml/min; Glucose 102 mg/dL (74-106); Sodium Level 134 mmol/L (136-145)
--- NOTE | 2019-05-18 08:08 | PN_ITS ---
Patient Problems: Active and Suspected Problems (Last Updated 03/12/19 @ 17:43 by Kayla Tamayo MD) Diabetic foot infection (Acute) Bilateral foot wounds (Acute) Subjective: This 48 year old M with significant past medical history of diabetes with neuropathy, h/o anemia, chronic kidney disease on hemodialysis, peripheral vascular disease status post intervention, hypertension, hyperlipidemia, sleep apnea, obesity was seen post operative day # 2 right fifth ray resection for treatment of ulcer, osteomyelitis, and cellulitis. He denies fever, nausea, vomiting, chest pain, chills, calf pain, shortness of breath. His pain is controlled. He is resting bedside this morning. - Physical Exam Vitals/I&O's: Vital Signs Temp Pulse Resp BP Pulse Ox 99.0 F 72 20 H 148/58 H 99 05/18/19 02:29 05/18/19 02:29 05/18/19 02:29 05/18/19 02:29 05/18/19 02:29 Oxygen Flow Rate (L/min) 2.5 Oxygen Delivery Method Nasal Cannula Weight: 119.476 kg Body Mass Index (BMI) 41.2 Finger Stick Blood Glucose 191 Intake and Output for Last 24 Hours 05/16/19 05/17/19 05/18/19 23:59 23:59 23:59 Intake Total 175.00 / 645.00 3502.75 / 3862.75 560 / 560 Output Total 9675 / 9675 250 / 250 Balance -9500.00 / -9030.00 3252.75 / 3612.75 560 / 560 General: Alert, Oriented x3, Cooperative HEENT: Atraumatic Extremities: No cyanosis, Capillary Refill Less than 3 Seconds, No Calf Tenderness - Negative Radha and Adan sign bilateral, Diminished Peripheral Pulses, Edema - Decreased right foot, - - Fifth ray resection right foot Skin: Ulcer/ Wound - Left foot sub-fifth metatarsal head grade 1 waller is stable and has a pale granular base. there is no purulence, erythema, streaking, odor, maceration, or infection., Incision - Well aligned and coapted sutures at fifth ray resection site without chayo gapping, erythema, string, odor, or acute signs of infection. There is erythema and jermaine-surgical site inflammation have resolved. There are no other ulcers on his foot or maceration or deep tissue exposure., - - The peripheral skin is hairless and atrophic bilateral Musculoskeletal: No Tenderness to Palpation of Joints or Extremities, Muscle Wasting, - - Compartment soft to palpate bilateral lower extremities Neurological: - - Lack of normal epicritic sensation light touch consistent with neuropathy bilateral Psych/Mental Status: Normal Affect, Appropriate Microbiology Past 72 Hours 05/14/19 22:28 Wound - Aerobic & Anaerobic Swabs Gram Stain - Final 05/14/19 22:28 Wound - Aerobic & Anaerobic Swabs Wound Culture - Final Staphylococcus simulans Staphylococcus simulans#2 Corynebacterium minutissimum 05/14/19 22:28 Wound - Aerobic & Anaerobic Swabs Anaerobic Culture - Prelimi nary Checking for anaerobes, further studies to follow. 05/16/19 16:31 Tissue - Right Foot Gram Stain - Final 05/16/19 16:31 Tissue - Right Foot Wound Culture - Preliminary No growth-Final to follow 05/16/19 16:30 Tissue - Right Foot Gram Stain - Final 05/16/19 16:30 Tissue - Right Foot Wound Culture - Preliminary No growth-Final to follow 05/14/19 22:20 Wound - Aerobic & Anaerobic Swabs Gram Stain - Final 05/14/19 22:20 Wound - Aerobic & Anaerobic Swabs Wound Culture - Preliminary Proteus vulgaris Enterococcus faecalis Escherichia coli Staphylococcus aureus 05/14/19 15:35 Blood Culture (Wb) - Left Wrist Blood Culture - Preliminary No growth in 48 hours. 05/14/19 15:25 Blood Culture (Wb) - Anticubital Left Blood Culture - Preliminary No growth in 48 hours. Laboratory Results 05/17/19 08:56: POC Glucose 206 H 05/17/19 12:13: POC Glucose 154 H 05/17/19 17:00: POC Glucose 132 H 05/17/19 23:17: POC Glucose 44 L* 05/17/19 23:52: Glucose 50 L 05/17/19 23:56: POC Glucose 55 L 05/18/19 00:36: POC Glucose 102 05/18/19 02:18: POC Glucose 90 05/18/19 04:51: POC Glucose 115 H 05/18/19 05:29: Sodium 134 L, Potassium 5.0, Chloride 101, Carbon Dioxide 22.0, Anion Gap 11, BUN 39 H, Creatinine 6.42 H, Estim Creat Clear Calc 12.87, Est GFR (MDRD) Af Amer 12 L, Est GFR (MDRD) Non-Af 10 L, BUN/Creatinine Ratio 6.1 L, Glucose 102, Calcium 7.7 L Current Medications Acetaminophen (Tylenol) 650 mg PO Q6H PRN PRN PRN Reason: Mild Pain (1-3)/Temp > 100.7 F Last Admin: 05/17/19 14:19 Dose: 650 mg Documented by: Aspirin (Ecotrin) 81 mg PO DAILY@0800 [facility] Last Admin: 05/17/19 09:12 Dose: 81 mg Documented by: Atorvastatin Calcium (Lipitor) 20 mg PO QHS [facility] Last Admin: 05/17/19 23:09 Dose: 20 mg Documented by: Cyclobenzaprine HCl (Flexeril) 10 mg PO TID PRN PRN PRN Reason: SPASMS Dextrose (D50w Syringe) 0 gm IV X1 PRN; Protocol PRN Reason: Hypoglycemia Last Admin: 05/18/19 00:12 Dose: 12.5 gm Documented by: Fluticasone Propionate (Flonase Nasal [place]) 1 spray NASAL DAILY [facility] Last Admin: 05/17/19 09:12 Dose: 1 spray Documented by: Furosemide (Lasix) 40 mg PO BIDLX [facility] Last Admin: 05/17/19 17:02 Dose: 40 mg Documented by: Gabapentin (Neurontin) 300 mg PO BIDCM [facility] Last Admin: 05/17/19 17:08 Dose: 300 mg Documented by: Glucagon () 1 mg IM .X1 PRN PRN Reason: Hypoglycemia Guaifenesin (Robitussin Dm) 10 ml PO Q6H PRN PRN PRN Reason: CONGESTION Heparin Sodium (Porcine) (Heparin Na) 5,000 unit SC Q8 [facility] Last Admin: 05/18/19 05:01 Dose: 5,000 unit Documented by: Sodium Chloride () 250 mls @ 15 mls/hr IV .[id number] PRN PRN Reason: Saline Flush Vancomycin IV Pharmacy to Dose (1 ea/ Sodium Chloride) 500 mls @ 250 mls/hr IV X1 PRN; Protocol PRN Reason: Rx to Dose Cefepime HCl 1 gm/ Sodium (Chloride) 50 mls @ 100 mls/hr IV Q24H [facility] Last Infusion: 05/17/19 21:00 Dose: Infused Documented by: Vancomycin HCl (Vancomycin) 1,000 mg in 200 mls @ 200 mls/hr IV X1 ONE Stop: 05/18/19 18:59 Insulin Human Lispro (Humalog Kwikpen (Bkc)) 15 unit SC TIDAC [facility] Last Admin: 05/17/19 17:02 Dose: 15 u Documented by: Insulin Human Lispro (Humalog Kwikpen (Bkc)) 0 unit SC ACHS [facility]; Protocol Last Admin: 05/17/19 23:22 Dose: Not Given Documented by: Insulin Human Regular (Humulin R U-500 ([facility])) 50 units SC DAILY@0730 [facility] Insulin Human Regular (Humulin R U-500 ([facility])) 30 units SC DINNER [facility] Isosorbide Mononitrate (Imdur) 30 mg PO DAILY [facility] Last Admin: 05/17/19 09:12 Dose: 30 mg Documented by: Lisinopril (Zestril) 20 mg PO DAILY [facility] Last Admin: 05/17/19 09:12 Dose: 20 mg Documented by: Metoprolol Tartrate (Lopressor (Beta Emmanuel)) 50 mg PO BID [facility] Last Admin: 05/17/19 23:09 Dose: 50 mg Documented by: Metronidazole (Flagyl) 500 mg PO TID [facility] Last Admin: 05/18/19 05:05 Dose: 500 mg Documented by: Morphine Sulfate () 4 mg IV Q3H PRN PRN PRN Reason: Pain Score 6-10/10 Last Admin: 05/17/19 09:09 Dose: 4 mg Documented by: Multivit/Ca Carb/B Cmplx/FA/Prenat (Ne[facility]rocaps, [facility]) [facility] Last Admin: 05/17/19 09:12 Dose: 1 capsule Documented by: Ondansetron HCl (Zofran) 4 mg IV Q8H PRN PRN PRN Reason: NAUSEA/VOMITING Last Admin: 05/18/19 04:44 Dose: 4 mg Documented by: Oxycodone HCl (Oxyir) 5 mg PO Q4H PRN PRN PRN Reason: Pain Score 6-10/10 Last Admin: 05/18/19 04:43 Dose: 5 mg Documented by: Pantoprazole Sodium (Protonix) 40 mg PO DAILY [facility] Last Admin: 05/17/19 09:12 Dose: 40 mg Documented by: Promethazine HCl (Phenergan) 12.5 mg IV Q6H PRN PRN PRN Reason: NAUSEA/VOMITING Last Admin: 05/18/19 00:21 Dose: 12.5 mg Documented by: Pyridoxine HCl (Vitamin B-6) 100 mg PO DAILYCM [facility] Last Admin: 05/17/19 09:12 Dose: 100 mg Documented by: Sevelamer Carbonate (Renvela) 3,200 mg PO TIDCM [facility] Last Admin: 05/17/19 17:02 Dose: 3,200 mg Documented by: Sodium Chloride () 10 - 40 ml IV UD PRN PRN Reason: SALINE FLUSH Last Admin: 05/18/19 02:23 Dose: 10 ml Documented by: Medical Necessity - Tobacco Use Smoking Status: Never smoker Tobacco Use: Non-smoker Assessment/Plan All Active Problems (Last Updated 03/12/19 @ 17:43 by Kayla Tamayo MD) Diabetic foot infection (Acute) Bilateral foot wounds (Acute) Chest pain (Acute) POD #2 right fifth ray resection with retention closure performed secondary to fifth metatarsal head osteomyelitis and chronic ulcer with cellulitis Diabetes with neuropathy (hemoglobin A1C 12% in 03/21) Left Waller grade 1 diabetic foot ulcer lateral fifth metatarsal head with cellulitis now resolved Foot deformities including hammertoes and tailor bunion bilateral Peripheral vascular disease Other comorbidities including noncompliance, renal disease on dialysis, cardiac history, anemia Malnutrition suspected Mechanical fall with right leg injury Gait instability I reviewed and discussed his case. He is afebrile with vital signs stable. He does not have leukocytosis; white blood cell count 7.2 this morning. Inflammatory marker trends will be monitored tomorrow. Intra operative clearance fragments were sent to microbiology and pathology; pending. To continue IV vanco and cefepime with hemodialysis with oral flagyl; stop date is 06-27-19. To maintain a non weightbearing status right lower extremity. Dressing was changed today with betadine gauze, gauze, kerlix, and lily wrap right foot. Steri-Strips were additionally applied to reinforce closure site now that inflammation has resolved. The left foot dressing was also changed today and the ulcer site was evaluated. There are no local signs of infection. Adaptic, gauze, Candy wrap were applied to the left foot. I will continue to follow while in house. assisted facility placement is recommended and placement is still pending per pre certification. Medical management DVT prophylaxis per primary team is greatly appreciated. I recommend nutritional supplementation optimize healing. Please do not hesitate to call if any questions. Brea Bravo DPM, [facility] [phone]
--- NOTE | 2019-05-18 09:32 | PCM.PN.HOSP ---
Patient Problems: Active and Suspected Problems (Last Updated 03/12/19 @ 17:43 by Kayla Tamayo MD) Diabetic foot infection (Acute) Bilateral foot wounds (Acute) Subjective: Was able to get some rest overnight, feeling better Vitals/I&O's: Vital Signs Temp Pulse Resp BP Pulse Ox 99.0 F 72 20 H 148/58 H 99 05/18/19 02:29 05/18/19 02:29 05/18/19 02:29 05/18/19 02:29 05/18/19 02:29 Oxygen Flow Rate (L/min) 2.5 Oxygen Delivery Method Nasal Cannula Weight: 263 lb 6.392 oz Body Mass Index (BMI) 41.2 Finger Stick Blood Glucose 191 Intake and Output for Last 24 Hours 05/16/19 05/17/19 05/18/19 23:59 23:59 23:59 Intake Total 175.00 / 645.00 3502.75 / 3862.75 560 / 560 Output Total 9675 / 9675 250 / 250 Balance -9500.00 / -9030.00 3252.75 / 3612.75 560 / 560 General: Alert, Oriented x3, Cooperative, No apparent distress HEENT: Atraumatic, PERRLA, EOMI, Normocephalic Oral: Moist Mucosa Neck: Supple, No JVD Lungs: Clear to auscultation, Normal air movement, No rhonchi, No wheeze, No rales Cardiovascular: Regular rate, Regular Rhythm, Normal S1, Normal S2, No murmurs Abdomen: Soft, Non Tender, Non-Distended, No Hepato-splenomegaly Extremities: Capillary Refill Less than 3 Seconds, Edema - Slight Skin: Ulcer/ Wound - Bilateral lower extremity dressings intact Neurological: Neuro grossly intact, Sensory exam intact to light touch and pain Psych/Mental Status: Normal Affect, Appropriate Microbiology Past 72 Hours 05/16/19 16:31 Tissue - Right Foot Gram Stain - Final 05/16/19 16:31 Tissue - Right Foot Wound Culture - Preliminary Gram positive organism 05/16/19 16:30 Tissue - Right Foot Gram Stain - Final 05/16/19 16:30 Tissue - Right Foot Wound Culture - Preliminary Gram positive organism 05/14/19 22:28 Wound - Aerobic & Anaerobic Swabs Gram Stain - Final 05/14/19 22:28 Wound - Aerobic & Anaerobic Swabs Wound Culture - Final Staphylococcus simulans Staphylococcus simulans#2 Corynebacterium minutissimum 05/14/19 22:28 Wound - Aerobic & Anaerobic Swabs Anaerobic Culture - Preliminary Checking for anaerobes, further studies to follow. 05/14/19 22:20 Wound - Aerobic & Anaerobic Swabs Gram Stain - Final 05/14/19 22:20 Wound - Aerobic & Anaerobic Swabs Wound Culture - Preliminary Proteus vulgaris Enterococcus faecalis Escherichia coli Staphylococcus aureus 05/14/19 15:35 Blood Culture (Wb) - Left Wrist Blood Culture - Preliminary No growth in 48 hours. 05/14/19 15:25 Blood Culture (Wb) - Anticubital Left Blood Culture - Preliminary No growth in 48 hours. Laboratory Results 05/17/19 08:56: POC Glucose 206 H 05/17/19 12:13: POC Glucose 154 H 05/17/19 17:00: POC Glucose 132 H 05/17/19 23:17: POC Glucose 44 L* 05/17/19 23:52: Glucose 50 L 05/17/19 23:56: POC Glucose 55 L 05/18/19 00:36: POC Glucose 102 05/18/19 02:18: POC Glucose 90 05/18/19 04:51: POC Glucose 115 H 05/18/19 05:29: Sodium 134 L, Potassium 5.0, Chloride 101, Carbon Dioxide 22.0, Anion Gap 11, BUN 39 H, Creatinine 6.42 H, Estim Creat Clear Calc 12.87, Est GFR (MDRD) Af Amer 12 L, Est GFR (MDRD) Non-Af 10 L, BUN/Creatinine Ratio 6.1 L, Glucose 102, Calcium 7.7 L Current Medications Acetaminophen (Tylenol) 650 mg PO Q6H PRN PRN PRN Reason: Mild Pain (1-3)/Temp > 100.7 F Last Admin: 05/17/19 14:19 Dose: 650 mg Documented by: Aspirin (Ecotrin) 81 mg PO DAILY@0800 [facility]PLAC[facility] Last Admin: 05/17/19 09:12 Dose: 81 mg Documented by: Atorvastatin Calcium (Lipitor) 20 mg PO QHS REPLACED BY [facility] Last Admin: 05/17/19 23:09 Dose: 20 mg Documented by: Cyclobenzaprine HCl (Flexeril) 10 mg PO TID PRN PRN PRN Reason: SPASMS Dextrose (D50w Syringe) 0 gm IV X1 PRN; Protocol PRN Reason: Hypoglycemia Last Admin: 05/18/19 00:12 Dose: 12.5 gm Documented by: Fluticasone Propionate (Flonase Nasal [place]) 1 spray NASAL DAILY REPLACED BY [facility] Last Admin: 05/17/19 09:12 Dose: 1 spray Documented by: Furosemide (Lasix) 40 mg PO BIDLX REPLACED BY [facility] Last Admin: 05/17/19 17:02 Dose: 40 mg Documented by: Gabapentin (Neurontin) 300 mg PO BIDCM REPLACED BY [facility] Last Admin: 05/17/19 17:08 Dose: 300 mg Documented by: Glucagon () 1 mg IM .X1 PRN PRN Reason: Hypoglycemia Guaifenesin (Robitussin Dm) 10 ml PO Q6H PRN PRN PRN Reason: CONGESTION Heparin Sodium (Porcine) (Heparin Na) 5,000 unit SC Q8 [facility] Last Admin: 05/18/19 05:01 Dose: 5,000 unit Documented by: Sodium Chloride () 250 mls @ 15 mls/hr IV .[id number] PRN PRN Reason: Saline Flush Vancomycin IV Pharmacy to Dose (1 ea/ Sodium Chloride) 500 mls @ 250 mls/hr IV X1 PRN; Protocol PRN Reason: Rx to Dose Cefepime HCl 1 gm/ Sodium (Chloride) 50 mls @ 100 mls/hr IV Q24H [facility] Last Infusion: 05/17/19 21:00 Dose: Infused Documented by: Vancomycin HCl (Vancomycin) 1,000 mg in 200 mls @ 200 mls/hr IV X1 ONE Stop: 05/18/19 18:59 Insulin Human Lispro (Humalog Kwikpen (Bkc)) 0 unit SC ACHS REPL[facility]ED [facility]; Protocol Last Admin: 05/17/19 23:22 Dose: Not Given Documented by: Insulin Human Lispro (Humalog Kwikpen (Bkc)) 7 unit SC TIDAC REPLACED BY [facility] Insulin Human Regular (Humulin R U-500 (Bkc)) 30 units SC DINNER REPLACED BY [facility] Insulin Human Regular (Humulin R U-500 (Bkc)) 25 units SC DAILY@0730 REPLACED BY [facility] Isosorbide Mononitrate (Imdur) 30 mg PO DAILY REPLAC[facility] BY [facility] Last Admin: 05/17/19 09:12 Dose: 30 mg Documented by: Lisinopril (Zestril) 20 mg PO DAILY REPL[facility] BY [facility] Last Admin: 05/17/19 09:12 Dose: 20 mg Documented by: Metoprolol Tartrate (Lopressor (Beta Emmanuel)) 50 mg PO BID REPLACED BY [facility] Last Admin: 05/17/19 23:09 Dose: 50 mg Documented by: Metronidazole (Flagyl) 500 mg PO TID REPLAC[facility] BY [facility] Last Admin: 05/18/19 05:05 Dose: 500 mg Documented by: Morphine Sulfate () 4 mg IV Q3H PRN PRN PRN Reason: Pain Score 6-10/10 Last Admin: 05/17/19 09:09 Dose: 4 mg Documented by: Multivit/Ca Carb/B Cmplx/FA/Prenat (Nephrocaps, [facility]aphro) [facility] Last Admin: 05/17/19 09:12 Dose: 1 capsule Documented by: Ondansetron HCl (Zofran) 4 mg IV Q8H PRN PRN PRN Reason: NAUSEA/VOMITING Last Admin: 05/18/19 04:44 Dose: 4 mg Documented by: Oxycodone HCl (Oxyir) 5 mg PO Q4H PRN PRN PRN Reason: Pain Score 6-10/10 Last Admin: 05/18/19 04:43 Dose: 5 mg Documented by: Pantoprazole Sodium (Protonix) 40 mg PO DAILY REPLACED [facility] Last Admin: 05/17/19 09:12 Dose: 40 mg Documented by: Promethazine HCl (Phenergan) 12.5 mg IV Q6H PRN PRN PRN Reason: NAUSEA/VOMITING Last Admin: 05/18/19 00:21 Dose: 12.5 mg Documented by: Pyridoxine HCl (Vitamin B-6) [facility] Last Admin: 05/17/19 09:12 Dose: 100 mg Documented by: Sevelamer Carbonate (Renvela) 3,200 mg PO TIDCM REPLACED BY [facility] Last Admin: 05/17/19 17:02 Dose: 3,200 mg Documented by: Sodium Chloride () 10 - 40 ml IV UD PRN PRN Reason: SALINE FLUSH Last Admin: 05/18/19 02:23 Dose: 10 ml Documented by: Medical Necessity - Tobacco Use Smoking Status: Never smoker Tobacco Use: Non-smoker Assessment/Plan All Active Problems (Last Updated 03/12/19 @ 17:43 by Kayla Tamayo MD) Diabetic foot infection (Acute) Bilateral foot wounds (Acute) Chest pain (Acute) 1. Right foot neuropathic ulceration with cellulitis as well as right foot osteomyelitis/type I DM/morbid obesity -Continue with IV cefepime and Vanco, cultures with Proteus, enterococcus, staph simulans, and E. coli. The enterococcus is ampicillin sensitive -OR 05/16/2019, status post right fifth metatarsal head resection for osteomyelitis -Continue with insulin and monitor with Accu-Cheks AC at bedtime, he has had some low blood sugars and therefore will decrease his insulin dosing in half. [facility] and start seeing back to his normal diet, will likely need to increase his insulin. -BMI is 41, discussed lifestyle modification 2. Chronic diastolic CHF/HTN/HLD toxic respiratory failure -His heart failure is currently not in exacerbation -Continue with aspirin, statin, Toprol, lisinopril, Lasix -Continue with chronic oxygen at 2.5 L nasal cannula 3. End-stage renal disease secondary to diabetes/anemia of chronic disease -Continue with dialysis Monday, , Saturdays -Appreciate nephrology assistance 4. GERD -Stable -Continue with PPI DVT: Heparin Code Visit Inpatient E&M: 76480 Subs Hosp L2
[2019-05-18 10:26] LABS: Bedside Glucose 135 mg/dL (70-110)
[2019-05-18] MEDS: Pantoprazole Sodium 40 MG Tablet PO (10:47)
[2019-05-18] MEDS: Pyridoxine HCl 100 MG Tablet PO (10:47)
[2019-05-18] MEDS: Gabapentin 300 MG Capsule PO ×2 (10:47→17:00)
[2019-05-18] MEDS: Fluticasone 0.05% 1 SPRAY NASAL.SRY NASAL (10:47)
[2019-05-18] MEDS: Aspirin E.C. 81 MG Tablet PO (10:48)
[2019-05-18] MEDS: Folic Acid/Vitamin B Comp W-C 1 Capsule 1 CAP PO ×2 (10:48→17:03)
[2019-05-18] MEDS: Heparin 10,000 UNITS/10 ML Vial 8000 UNITS IV (11:15)
--- NOTE | 2019-05-18 15:04 | PN.RENAL_ITS ---
Patient Problems: Active and Suspected Problems (Last Updated 03/12/19 @ 17:43 by Kayla Tamayo MD) Diabetic foot infection (Acute) Bilateral foot wounds (Acute) Subjective: seen on dialysis, tolerating 3.7L fluid removal so far. Feet wrapped. ID note reviewed - Physical Exam Vitals/I&O's: Vital Signs Temp Pulse Resp BP Pulse Ox 97.8 F 77 16 142/59 H 92 05/18/19 10:13 05/18/19 10:36 05/18/19 10:13 05/18/19 10:13 05/18/19 10:20 Oxygen Flow Rate (L/min) 2.5 Oxygen Delivery Method Room Air Weight: 120.656 kg Body Mass Index (BMI) 41.2 Finger Stick Blood Glucose 191 Intake and Output for Last 24 Hours 05/16/19 05/17/19 05/18/19 23:59 23:59 23:59 Intake Total 175.00 / 645.00 3502.75 / 3862.75 560 / 560 Output Total 9675 / 9675 250 / 250 Balance -9500.00 / -9030.00 3252.75 / 3612.75 560 / 560 General: Alert, Oriented x3, Cooperative Skin: Ulcer/ Wound - bilat feet wrapped Psych/Mental Status: Alert and oriented to time, place, person, mood and affect Microbiology Past 72 Hours 05/16/19 16:31 Tissue - Right Foot Gram Stain - Final 05/16/19 16:31 Tissue - Right Foot Wound Culture - Preliminary Gram positive organism 05/16/19 16:31 Tissue - Right Foot Anaerobic Culture - Preliminary No growth in 48 hours. 05/16/19 16:30 Tissue - Right Foot Gram Stain - Final 05/16/19 16:30 Tissue - Right Foot Wound Culture - Preliminary Gram positive organism 05/16/19 16:30 Tissue - Right Foot Anaerobic Culture - Preliminary Checking for anaerobes, further studies to follow. 05/14/19 22:28 Wound - Aerobic & Anaerobic Swabs Gram Stain - Final 05/14/19 22:28 Wound - Aerobic & Anaerobic Swabs Wound Culture - Final Staphylococcus simulans Staphylococcus simulans#2 Corynebacterium minutissimum 05/14/19 22:28 Wound - Aerobic & Anaerobic Swabs Anaerobic Culture - Preliminary Checking for anaerobes, further studies to follow. 05/14/19 22:20 Wound - Aerobic & Anaerobic Swabs Gram Stain - Final 05/14/19 22:20 Wound - Aerobic & Anaerobic Swabs Wound Culture - Preliminary Proteus vulgaris Enterococcus faecalis Escherichia coli Staphylococcus aureus 05/14/19 15:35 Blood Culture (Wb) - Left Wrist Blood Culture - Preliminary No growth in 48 hours. 05/14/19 15:25 Blood Culture (Wb) - Anticubital Left Blood Culture - Preliminary No growth in 48 hours. Laboratory Results 05/17/19 17:00: POC Glucose 132 H 05/17/19 23:17: POC Glucose 44 L* 05/17/19 23:52: Glucose 50 L 05/17/19 23:56: POC Glucose 55 L 05/18/19 00:36: POC Glucose 102 05/18/19 02:18: POC Glucose 90 05/18/19 04:51: POC Glucose 115 H 05/18/19 05:29: Sodium 134 L, Potassium 5.0, Chloride 101, Carbon Dioxide 22.0, Anion Gap 11, BUN 39 H, Creatinine 6.42 H, Estim Creat Clear Calc 12.87, Est GFR (MDRD) Af Amer 12 L, Est GFR (MDRD) Non-Af 10 L, BUN/Creatinine Ratio 6.1 L, Glucose 102, Calcium 7.7 L 05/18/19 10:19: POC Glucose 135 H Current Medications Acetaminophen (Tylenol) 650 mg PO Q6H PRN PRN PRN Reason: Mild Pain (1-3)/Temp > 100.7 F Last Admin: 05/17/19 14:19 Dose: 650 mg Documented by: Aspirin (Ecotrin) 81 mg PO DAILY@0800 [facility] Last Admin: 05/18/19 10:48 Dose: 81 mg Documented by: Atorvastatin Calcium (Lipitor) 20 mg PO QHS [facility] Last Admin: 05/17/19 23:09 Dose: 20 mg Documented by: Cyclobenzaprine HCl (Flexeril) 10 mg PO TID PRN PRN PRN Reason: SPASMS Dextrose (D50w Syringe) 0 gm IV X1 PRN; Protocol PRN Reason: Hypoglycemia Last Admin: 05/18/19 00:12 Dose: 12.5 gm Documented by: Fluticasone Propionate (Flonase Nasal [place]) 1 spray NASAL DAILY [facility] Last Admin: 05/18/19 10:47 Dose: 1 spray Documented by: Furosemide (Lasix) 40 mg PO BIDLX [facility] Last Admin: 05/18/19 10:33 Dose: Not Given Documented by: Gabapentin (Neurontin) 300 mg PO BIDCM [facility] Last Admin: 05/18/19 10:47 Dose: 300 mg Documented by: Glucagon () 1 mg IM .X1 PRN PRN Reason: Hypoglycemia Guaifenesin (Robitussin Dm) 10 ml PO Q6H PRN PRN PRN Reason: CONGESTION Heparin Sodium (Porcine) (Heparin Na) 5,000 unit SC Q8 [facility] Last Admin: 05/18/19 14:34 Dose: Not Given Documented by: Sodium Chloride () 250 mls @ 15 mls/hr IV .[id number] PRN PRN Reason: Saline Flush Vancomycin IV Pharmacy to Dose (1 ea/ Sodium Chloride) 500 mls @ 250 mls/hr IV X1 PRN; Protocol PRN Reason: Rx to Dose Cefepime HCl 1 gm/ Sodium (Chloride) 50 mls @ 100 mls/hr IV Q24H [facility] Last Infusion: 05/17/19 21:00 Dose: Infused Documented by: Vancomycin HCl (Vancomycin) 1,000 mg in 200 mls @ 200 mls/hr IV X1 ONE Stop: 05/18/19 18:59 Insulin Human Lispro (Humalog Kwikpen (Bkc)) 0 unit SC ACHS [facility]; Protocol Last Admin: 05/18/19 14:33 Dose: Not Given Documented by: Insulin Human Lispro (Humalog Kwikpen (Bkc)) 7 unit SC TIDAC [facility] Last Admin: 05/18/19 14:33 Dose: Not Given Documented by: Insulin Human Regular (Humulin R U-500 (Bkc)) 30 units SC DINNER [facility] Insulin Human Regular (Humulin R U-500 (Bkc)) 25 units SC DAILY@0730 [facility] Isosorbide Mononitrate (Imdur) 30 mg PO DAILY [facility] Last Admin: 05/18/19 10:34 Dose: Not Given Documented by: Lisinopril (Zestril) 20 mg PO DAILY [facility] Last Admin: 05/18/19 10:37 Dose: Not Given Documented by: Metoprolol Tartrate (Lopressor (Beta Emmanuel)) 50 mg PO BID [facility] Last Admin: 05/18/19 10:36 Dose: Not Given Documented by: Metronidazole (Flagyl) 500 mg PO TID [facility] Last Admin: 05/18/19 14:35 Dose: 500 mg Documented by: Morphine Sulfate () 4 mg IV Q3H PRN PRN PRN Reason: Pain Score 6-10/10 Last Admin: 05/17/19 09:09 Dose: 4 mg Documented by: Multivit/Ca Carb/B Cmplx/FA/Prenat (Nephrocaps, [facility]) [facility] Last Admin: 05/18/19 10:48 Dose: 1 capsule Documented by: Ondansetron HCl (Zofran) 4 mg IV Q8H PRN PRN PRN Reason: NAUSEA/VOMITING Last Admin: 05/18/19 04:44 Dose: 4 mg Documented by: Oxycodone HCl (Oxyir) 5 mg PO Q4H PRN PRN PRN Reason: Pain Score 6-10/10 Last Admin: 05/18/19 04:43 Dose: 5 mg Documented by: Pantoprazole Sodium (Protonix) 40 mg PO DAILY [facility] Last Admin: 05/18/19 10:47 Dose: 40 mg Documented by: Promethazine HCl (Phenergan) 12.5 mg IV Q6H PRN PRN PRN Reason: NAUSEA/VOMITING Last Admin: 05/18/19 00:21 Dose: 12.5 mg Documented by: Pyridoxine HCl (Vitamin B-6) [facility] Last Admin: 05/18/19 10:47 Dose: 100 mg Documented by: Sevelamer Carbonate (Renvela) [facility] Last Admin: 05/18/19 14:33 Dose: Not Given Documented by: Sodium Chloride () 10 - 40 ml IV UD PRN PRN Reason: SALINE FLUSH Last Admin: 05/18/19 02:23 Dose: 10 ml Documented by: Medical Necessity - Tobacco Use Smoking Status: Never smoker Tobacco Use: Non-smoker Assessment/Plan All Active Problems (Last Updated 03/12/19 @ 17:43 by Kayla Tamayo MD) Diabetic foot infection (Acute) Bilateral foot wounds (Acute) Chest pain (Acute) 1. ESRD HD THS. Dialysis today without incident 2. Diabetic foot infection iv antibx, s/p debridement. ID recommend outpt antibx for 6weeks with cefepime and vanco on dialysis unti 06/27 with po flagyl 3. Anemia TERESA therapy 4. HTN stable 5. DM2 primary service mgmt 6. morbid obesity 7. Hyperphosphatemia, increased binders
--- NOTE | 2019-05-18 16:19 | DIALYSIS ---
Hemodialysis completed as ordered. -3700ml off. stable t/o. tolerated well. hemostasis obtained and dressing applied. Report to Lanie MACARIO
[2019-05-18] MEDS: Insulin Lispro 100 UNIT/ML INSULN.PEN 7 UNIT SC (16:51)
[2019-05-18] MEDS: Insulin Lispro 100 UNIT/ML INSULN.PEN SC ×2 (16:51→22:31)
[2019-05-18] MEDS: Furosemide 40 MG Tablet PO (17:00)
[2019-05-18] MEDS: SEVELAMER CARBONATE 800 MG TABLET 3200 MG PO (17:00)
[2019-05-18] MEDS: Isosorbide Mononitrate 30 MG Tablet PO (17:03)
[2019-05-18 17:10] LABS: Bedside Glucose 160 mg/dL (70-110)
[2019-05-18] MEDS: Vancomycin IV 1,000 MG/200 ML BAG 200 MG IV (18:09)
[2019-05-18] MEDS: Atorvastatin Calcium 20 MG Tablet PO (22:32)
[2019-05-18] MEDS: Metoprolol Tartrate 50 MG Tablet PO (22:32)
[2019-05-18] MEDS: Nepro with Carbsteady 237 ML Liquid 120 ML PO (22:33)
[2019-05-18 22:51] LABS: Bedside Glucose 243 mg/dL (70-110)
[2019-05-19] VITALS (8 sets, daily range): BP systolic 125–163; BP diastolic 57–91; PULSE 61–66; RESP 16–18; TEMP 36.6–37.2; O2SAT 97–99
[2019-05-19 00:31] LABS: Bedside Glucose 218 mg/dL (70-110)
[2019-05-19] MEDS: metroNIDAZOLE 500 MG Tablet PO ×3 (06:18→21:17)
[2019-05-19] MEDS: Heparin Injection (Vial) 5,000 UNIT/ML VIAL 5000 UNIT SC ×3 (06:18→21:17)
[2019-05-19 06:50] LABS: Erythrocyte Sedimentation Rate 77 mm/hr (0-20)
--- NOTE | 2019-05-19 07:41 | PCM.PROGNOTE ---
Patient Problems: Active and Suspected Problems (Last Updated 03/12/19 @ 17:43 by Kayla Tamayo MD) Diabetic foot infection (Acute) Bilateral foot wounds (Acute) Subjective: This 48 year old M with significant past medical history of diabetes with neuropathy, h/o anemia, chronic kidney disease on hemodialysis, peripheral vascular disease status post intervention, hypertension, hyperlipidemia, sleep apnea, obesity was seen post operative day # 3 right fifth ray resection for treatment of ulcer, osteomyelitis, and cellulitis. He denies fever, vomiting, chest pain, chills, calf pain, shortness of breath. He relates he is having intermittent nausea. His pain is controlled. He is resting bedside this morning. - Physical Exam Vitals/I&O's: Vital Signs Temp Pulse Resp BP Pulse Ox 98.7 F 62 16 125/57 H 99 05/19/19 06:22 05/19/19 06:22 05/19/19 06:22 05/19/19 06:22 05/19/19 06:22 Oxygen Flow Rate (L/min) 3 Oxygen Delivery Method Nasal Cannula Weight: 119.9 kg Body Mass Index (BMI) 41.2 Finger Stick Blood Glucose 191 Intake and Output for Last 24 Hours 05/17/19 05/18/19 05/19/19 23:59 23:59 23:59 Intake Total 3502.75 / 3862.75 1810 / 1810 450 / 450 Output Total 250 / 250 3700 / 3700 Balance 3252.75 / 3612.75 -1890 / -1890 450 / 450 General: Alert, Oriented x3, Cooperative HEENT: Atraumatic Extremities: No cyanosis, Capillary Refill Less than 3 Seconds - All digits left foot, No Calf Tenderness - Negative Radha and Adan sign bilateral, Diminished Peripheral Pulses, Edema - Mild bilateral lower extremities Skin: Ulcer/ Wound - The left foot sub-fifth metatarsal head skin discontinuity mainly has a sub-hemorrhagic base that measures 2.3 cm x 2.3 cm x 0.1 cm and a small granular opening to the proximal part. There is dried peripheral blood. There is no erythema, purulence, odor, streaking, maceration, necrosis at this left foot site either., - - Right postoperative dressings Clean and dry and intact today and there is no strikethrough, odor, or peripheral streaking noted Musculoskeletal: No Tenderness to Palpation of Joints or Extremities, Muscle Wasting, - - Dorsal contraction of lesser toes bilateral. Right fifth ray resection. Compartments are soft to palpate bilateral lower extremities Neurological: - - Lack of normal epicritic sensation light touch is consistent with neuropathy status Psych/Mental Status: Normal Affect, Appropriate Microbiology Past 72 Hours 05/16/19 16:31 Tissue - Right Foot Gram Stain - Final 05/16/19 16:31 Tissue - Right Foot Wound Culture - Preliminary GPC Poss Enterococcus sp 05/16/19 16:31 Tissue - Right Foot Anaerobic Culture - Preliminary No growth in 48 hours. 05/14/19 22:20 Wound - Aerobic & Anaerobic Swabs Gram Stain - Final 05/14/19 22:20 Wound - Aerobic & Anaerobic Swabs Wound Culture - Final Proteus vulgaris Enterococcus faecalis Escherichia coli Meth. resistant Staph. aureus 05/16/19 16:30 Tissue - Right Foot Gram Stain - Final 05/16/19 16:30 Tissue - Right Foot Wound Culture - Preliminary Gram positive organism 05/16/19 16:30 Tissue - Right Foot Anaerobic Culture - Preliminary Checking for anaerobes, further studies to follow. 05/14/19 22:28 Wound - Aerobic & Anaerobic Swabs Gram Stain - Final 05/14/19 22:28 Wound - Aerobic & Anaerobic Swabs Wound Culture - Final Staphylococcus simulans Staphylococcus simulans#2 Corynebacterium minutissimum 05/14/19 22:28 Wound - Aerobic & Anaerobic Swabs Anaerobic Culture - Preliminary Checking for anaerobes, further studies to follow. 05/14/19 15:35 Blood Culture (Wb) - Left Wrist Blood Culture - Preliminary No growth in 48 hours. 05/14/19 15:25 Blood Culture (Wb) - Anticubital Left Blood Culture - Preliminary No growth in 48 hours. Laboratory Results 05/18/19 10:19: POC Glucose 135 H 05/18/19 16:47: POC Glucose 160 H 05/18/19 22:22: POC Glucose 243 H 05/19/19 00:25: POC Glucose 218 H 05/19/19 05:51: ESR 77 H 05/19/19 05:51: C-React Prot Ext Range 60.10 H Current Medications Acetaminophen (Tylenol) 650 mg PO Q6H PRN PRN PRN Reason: Mild Pain (1-3)/Temp > 100.7 F Last Admin: 05/17/19 14:19 Dose: 650 mg Documented by: Aspirin (Ecotrin) 81 mg PO DAILY@0800 [facility] Last Admin: 05/18/19 10:48 Dose: 81 mg Documented by: Atorvastatin Calcium (Lipitor) 20 mg PO QHS [facility] Last Admin: 05/18/19 22:32 Dose: 20 mg Documented by: Cyclobenzaprine HCl (Flexeril) 10 mg PO TID PRN PRN PRN Reason: SPASMS Dextrose (D50w Syringe) 0 gm IV X1 PRN; Protocol PRN Reason: Hypoglycemia Last Admin: 05/18/19 00:12 Dose: 12.5 gm Documented by: Fluticasone Propionate (Flonase Nasal [place]) 1 spray NASAL DAILY [facility] Last Admin: 05/18/19 10:47 Dose: 1 spray Documented by: Furosemide (Lasix) 40 mg PO BIDLX [facility] Last Admin: 05/18/19 17:00 Dose: 40 mg Documented by: Gabapentin (Neurontin) 300 mg PO BIDCM [facility] Last Admin: 05/18/19 17:00 Dose: 300 mg Documented by: Glucagon () 1 mg IM .X1 PRN PRN Reason: Hypoglycemia Guaifenesin (Robitussin Dm) 10 ml PO Q6H PRN PRN PRN Reason: CONGESTION Heparin Sodium (Porcine) (Heparin Na) 5,000 unit SC Q8 [facility] Last Admin: 05/19/19 06:18 Dose: 5,000 unit Documented by: Sodium Chloride () 250 mls @ 15 mls/hr IV .[id number] PRN PRN Reason: Saline Flush Vancomycin IV Pharmacy to Dose (1 ea/ Sodium Chloride) 500 mls @ 250 mls/hr IV X1 PRN; Protocol PRN Reason: Rx to Dose Cefepime HCl 1 gm/ Sodium (Chloride) 50 mls @ 100 mls/hr IV Q24H [facility] Last Infusion: 05/18/19 17:19 Dose: Infused Documented by: Insulin Human Lispro (Humalog Kwikpen (Bkc)) 0 unit SC ACHS [facility]; Protocol Last Admin: 05/18/19 22:31 Dose: 6 u Documented by: Insulin Human Lispro (Humalog Kwikpen (Bkc)) 7 unit SC TIDAC [facility] Last Admin: 05/18/19 16:51 Dose: 10 u Documented by: Insulin Human Regular (Humulin R U-500 (Bkc)) 30 units SC DINNER [facility] Last Admin: 05/18/19 16:52 Dose: 30 u Documented by: Insulin Human Regular (Humulin R U-500 ([facility])) 25 units SC DAILY@0730 [facility] Isosorbide Mononitrate (Imdur) 30 mg PO DAILY [facility] Last Admin: 05/18/19 17:03 Dose: 30 mg Documented by: Lisinopril (Zestril) 20 mg PO DAILY [facility] Last Admin: 05/18/19 10:37 Dose: Not Given Documented by: Metoprolol Tartrate (Lopressor (Beta Emmanuel)) 50 mg PO BID [facility] Last Admin: 05/18/19 22:32 Dose: 50 mg Documented by: Metronidazole (Flagyl) 500 mg PO TID [facility] Last Admin: 05/19/19 06:18 Dose: 500 mg Documented by: Morphine Sulfate () 4 mg IV Q3H PRN PRN PRN Reason: Pain Score 6-10/10 Last Admin: 05/17/19 09:09 Dose: 4 mg Documented by: Multivit/Ca Carb/B Cmplx/FA/Prenat (Nephrocaps, [facility]aphro) [facility] Last Admin: 05/18/19 17:03 Dose: 1 capsule Documented by: Ondansetron HCl (Zofran) 4 mg IV Q8H PRN PRN PRN Reason: NAUSEA/VOMITING Last Admin: 05/18/19 04:44 Dose: 4 mg Documented by: Oxycodone HCl (Oxyir) 5 mg PO Q4H PRN PRN PRN Reason: Pain Score 6-10/10 Last Admin: 05/18/19 22:42 Dose: 5 mg Documented by: Pantoprazole Sodium (Protonix) 40 mg PO DAILY [facility] Last Admin: 05/18/19 10:47 Dose: 40 mg Documented by: Promethazine HCl (Phenergan) 12.5 mg IV Q6H PRN PRN PRN Reason: NAUSEA/VOMITING Last Admin: 05/18/19 00:21 Dose: 12.5 mg Documented by: Pyridoxine HCl (Vitamin B-6) [facility] Last Admin: 05/18/19 10:47 Dose: 100 mg Documented by: Sevelamer Carbonate (Renvela) 3,200 mg PO TIDCM [facility] Last Admin: 05/18/19 17:00 Dose: 3,200 mg Documented by: Sodium Chloride () 10 - 40 ml IV UD PRN PRN Reason: SALINE FLUSH Last Admin: 05/18/19 22:42 Dose: 10 ml Documented by: Medical Necessity - Tobacco Use Smoking Status: Never smoker Tobacco Use: Non-smoker Assessment/Plan All Active Problems (Last Updated 03/12/19 @ 17:43 by Kayla Tamayo MD) Diabetic foot infection (Acute) Bilateral foot wounds (Acute) Chest pain (Acute) POD #3 right fifth ray resection with retention closure performed secondary to fifth metatarsal head osteomyelitis and chronic ulcer with cellulitis Diabetes with neuropathy (hemoglobin A1C 12% in 03/21) Left Waller grade 1 diabetic foot ulcer lateral fifth metatarsal head with cellulitis now resolved Foot deformities including hammertoes and tailor bunion bilateral Peripheral vascular disease Other comorbidities including noncompliance, renal disease on dialysis, cardiac history, anemia Malnutrition suspected Gait instability I reviewed and discussed his case. He is afebrile with vital signs stable. Inflammatory marker trends will be monitored and his ESR was 77 and CRP was 60.10. Intra operative clearance fragments were sent to microbiology and pathology. So far there is GPC growth (rare) and the pathology evaluation is still pending. To continue IV vanco and cefepime with hemodialysis with oral flagyl; stop date is 06-27-19. To maintain a non weightbearing status right lower extremity. The surgical dressing was kept intact today and this will be changed biweekly at this point. The left foot dressing was also changed today and the ulcer site was evaluated. Selective debridement was performed today with a curette after verbal consent was obtained. Pressure was applied to maintain the minimal hemostasis. This was performed to remove biofilm, slough, and promote healing. The dressing was applied with Adaptic, gauze, and Kerlix. There are no local signs of infection at this time bilateral. I will continue to follow while in house on a biweekly basis. [facility] facility placement is recommended and placement is still pending per pre certification. Medical management DVT prophylaxis per primary team is greatly appreciated. I recommend nutritional supplementation optimize healing. Please do not hesitate to call if any questions. Brea Bravo DPM, [facility] [phone]
--- NOTE | 2019-05-19 08:14 | DCINST_ITS ---
Discharge Activity: May Not Drive Weight Bearing Status: Partial weight bearing - heel weightbear bilateral with surgical shoes and use of walker Keep extremity elevated above heart level: Right Leg Call your doctor if your incision/area has: Continuous Slow Oozing, Sudden Increased Bleeding, Increased Pain/ Swelling, Increased Redness, Foul Smelling Discharge, Swelling at the incision site Call your doctor if you observe: Fever of 101 or Higher, Calf discomfort, Uncontrolled pain Cleanse incision/area with: Keep Dressing Clean & Dry - right lower extremity surgical dressing, - - change left foot dressing daily with adaptic, gauze, kerlix. Allergies/Adverse Reactions: Allergies venom-honey bee [bee venom (honey bee)] Allergy (Verified 05/14/19 14:50) Swelling sulfamethoxazole [From Bactrim] Adverse Reaction (Verified 05/14/19 14:50) Upset Stomach trimethoprim [From Bactrim] Adverse Reaction (Verified 05/14/19 14:50) Upset Stomach Medications to take at Discharge Atorvastatin Calcium [Lipitor] 20 mg PO QHS 10/11/17 Pyridoxine HCl [Vitamin B-6] 100 mg PO DAILY 10/11/17 Vits A,C,E/Lutein/Minerals [Ocuvite with Lutein Tablet] 1 ea PO DAILY 10/11/17 Folic Acid/Vitamin B Comp W-C [Nephrocaps, Renaphro] 1 cap PO DAILY 10/27/17 albuterol sulfate HFA 90 mcg/actuation aerosol inhaler 2 puff INHALATION Q4H PRN #18 g 02/26/18 Aspirin E.C. [Ecotrin] 81 mg PO DAILY 03/23/18 Cyclobenzaprine HCl 10 mg PO TID PRN PRN 03/23/18 Fluticasone 0.05% [Flonase Nasal [place]] 1 spray NASAL DAILY 03/23/18 Gabapentin [Neurontin] 300 mg PO BID 03/23/18 isosorbide mononitrate ER 30 mg tablet,extended release 24 hr 30 mg PO DAILY #30 tab 07/24/18 Acetaminophen [Tylenol Tablet] 650 mg PO Q6H PRN PRN tab 09/19/18 Guaifenesin Dm [Robitussin Dm] 10 ml PO Q6H PRN PRN #1 bottle 11/21/18 Furosemide [Lasix] 40 mg PO BID 03/12/19 Metoprolol Tartrate [Lopressor (beta khoa)] 50 mg PO BID 03/12/19 Omeprazole 40 mg PO DAILY 03/12/19 proMETHazine tablet [Phenergan tablet] 25 mg PO TID PRN 03/13/19 Collagenase [Santyl] 1 applic TOPICAL DAILY tube 03/15/19 Insulin Lispro [Humalog KwikPen] 15 unit SUBCUT TIDAC insuln.pen 03/15/19 Humulin R U-500 ([facility]) 50 units SUBCUT BIDAC 03/20/19 Lisinopril [Zestril] 20 mg PO DAILY tab 03/20/19 Sevelamer HCl [Renagel] 2,400 mg PO TID #0 03/20/19 Cefepime HCl [Maxipime] 2 gm IV UD 40 Days #18 vial 05/17/19 Vancomycin IV Pharmacy to Dose 2 gm IV UD 40 Days #18 ea 05/17/19 metroNIDAZOLE [Flagyl] 500 mg PO TID 40 Days #120 tab 05/17/19 The following prescriptions were given: Cefepime HCl [Maxipime] 2 gm IV UD 40 Days #18 vial Prescription Printed Vancomycin IV Pharmacy to Dose 2 gm IV UD 40 Days #18 ea Prescription Printed Primary Care Physician: Augie Washburn MD [Primary Care Provider] - Test Results: Test results from this visit will be discussed in further detail at your follow- up appointment, if applicable. Please Follow Up With: Clinic,Wound - with Dr. Bravo. If concern prior to follow up, call [facility] at [phone]. When: within 1 week. Call to confirm appointment time/date. Proposed Discharge Date: 05/20/19
[2019-05-19] MEDS: 0.9% Saline Lock 10 ML Syringe IV ×2 (08:31→16:01)
[2019-05-19] MEDS: proMETHazine 25 MG/ML Syringe 12.5 MG IV (08:32)
[2019-05-19] MEDS: Insulin Lispro 100 UNIT/ML INSULN.PEN SC ×3 (08:49→17:13)
[2019-05-19] MEDS: Insulin Lispro 100 UNIT/ML INSULN.PEN 7 UNIT SC ×3 (08:50→17:14)
[2019-05-19] MEDS: Metoprolol Tartrate 50 MG Tablet PO ×2 (08:53→21:19)
[2019-05-19] MEDS: Aspirin E.C. 81 MG Tablet PO (08:53)
[2019-05-19] MEDS: Pantoprazole Sodium 40 MG Tablet PO (08:53)
[2019-05-19] MEDS: Furosemide 40 MG Tablet PO ×2 (08:53→17:17)
[2019-05-19] MEDS: Gabapentin 300 MG Capsule PO ×2 (08:54→17:17)
[2019-05-19] MEDS: Pyridoxine HCl 100 MG Tablet PO (08:54)
[2019-05-19] MEDS: Isosorbide Mononitrate 30 MG Tablet PO (08:54)
[2019-05-19] MEDS: Lisinopril 20 MG Tablet PO (08:54)
[2019-05-19] MEDS: Folic Acid/Vitamin B Comp W-C 1 Capsule 1 CAP PO (08:55)
[2019-05-19] MEDS: Fluticasone 0.05% 1 SPRAY NASAL.SRY NASAL (08:55)
[2019-05-19] MEDS: SEVELAMER CARBONATE 800 MG TABLET 3200 MG PO ×3 (08:55→17:17)
[2019-05-19] MEDS: oxyCODONE 5 MG Tablet PO ×3 (09:06→21:23)
[2019-05-19 09:15] LABS: Bedside Glucose 184 mg/dL (70-110)
--- NOTE | 2019-05-19 10:10 | PN_ITS ---
Patient Problems: Active and Suspected Problems (Last Updated 03/12/19 @ 17:43 by Kayla Tamayo MD) Diabetic foot infection (Acute) Bilateral foot wounds (Acute) Subjective: Doing well, no issues overnight. Has had some nausea which improved with Phenergan which she takes at home. Pain is controlled Vitals/I&O's: Vital Signs Temp Pulse Resp BP Pulse Ox 98.1 F 65 16 148/64 H 98 05/19/19 09:00 05/19/19 09:00 05/19/19 09:00 05/19/19 09:00 05/19/19 09:00 Oxygen Flow Rate (L/min) 3 Oxygen Delivery Method Nasal Cannula Weight: 264 lb 5.348 oz Body Mass Index (BMI) 41.2 Finger Stick Blood Glucose 191 Intake and Output for Last 24 Hours 05/17/19 05/18/19 05/19/19 23:59 23:59 23:59 Intake Total 3502.75 / 3862.75 1810 / 1810 450 / 450 Output Total 250 / 250 3700 / 3700 Balance 3252.75 / 3612.75 -1890 / -1890 450 / 450 General: Alert, Oriented x3, Cooperative, No apparent distress HEENT: Atraumatic, PERRLA, EOMI, Normocephalic Oral: Moist Mucosa Neck: Supple, No JVD Lungs: Clear to auscultation, Normal air movement, No rhonchi, No wheeze, No rales Cardiovascular: Regular rate, Regular Rhythm, Normal S1, Normal S2, No murmurs Abdomen: Soft, Non Tender, Non-Distended, No Hepato-splenomegaly Extremities: Capillary Refill Less than 3 Seconds, Edema - Slight Skin: Ulcer/ Wound - Bilateral lower extremity dressings intact Neurological: Neuro grossly intact, Sensory exam intact to light touch and pain Psych/Mental Status: Normal Affect, Appropriate Microbiology Past 72 Hours 05/16/19 16:30 Tissue - Right Foot Gram Stain - Final 05/16/19 16:30 Tissue - Right Foot Wound Culture - Preliminary Gram positive renee 05/16/19 16:30 Tissue - Right Foot Anaerobic Culture - Final No anaerobic bacteria isolated. 05/14/19 22:28 Wound - Aerobic & Anaerobic Swabs Gram Stain - Final 05/14/19 22:28 Wound - Aerobic & Anaerobic Swabs Wound Culture - Final Staphylococcus simulans Staphylococcus simulans#2 Corynebacterium minutissimum 05/14/19 22:28 Wound - Aerobic & Anaerobic Swabs Anaerobic Culture - Final No anaerobic bacteria isolated. 05/14/19 22:20 Wound - Aerobic & Anaerobic Swabs Gram Stain - Final 05/14/19 22:20 Wound - Aerobic & Anaerobic Swabs Wound Culture - Final Proteus vulgaris Enterococcus faecalis Escherichia coli Meth. resistant Staph. aureus 05/14/19 22:20 Wound - Aerobic & Anaerobic Swabs Anaerobic Culture - Final No anaerobic bacteria isolated. 05/16/19 16:31 Tissue - Right Foot Gram Stain - Final 05/16/19 16:31 Tissue - Right Foot Wound Culture - Preliminary GPC Poss Enterococcus sp 05/16/19 16:31 Tissue - Right Foot Anaerobic Culture - Preliminary No growth in 48 hours. 05/14/19 15:35 Blood Culture (Wb) - Left Wrist Blood Culture - Preliminary No growth in 48 hours. 05/14/19 15:25 Blood Culture (Wb) - Anticubital Left Blood Culture - Preliminary No growth in 48 hours. Laboratory Results 05/18/19 10:19: POC Glucose 135 H 05/18/19 16:47: POC Glucose 160 H 05/18/19 22:22: POC Glucose 243 H 05/19/19 00:25: POC Glucose 218 H 05/19/19 05:51: ESR 77 H 05/19/19 05:51: C-React Prot Ext Range 60.10 H 05/19/19 08:37: POC Glucose 184 H Current Medications Acetaminophen (Tylenol) 650 mg PO Q6H PRN PRN PRN Reason: Mild Pain (1-3)/Temp > 100.7 F Last Admin: 05/17/19 14:19 Dose: 650 mg Documented by: Aspirin (Ecotrin) 81 mg PO DAILY@0800 [facility] Last Admin: 05/19/19 08:53 Dose: 81 mg Documented by: Atorvastatin Calcium (Lipitor) 20 mg PO QHS [facility] Last Admin: 05/18/19 22:32 Dose: 20 mg Documented by: Cyclobenzaprine HCl (Flexeril) 10 mg PO TID PRN PRN PRN Reason: SPASMS Dextrose (D50w Syringe) 0 gm IV X1 PRN; Protocol PRN Reason: Hypoglycemia Last Admin: 05/18/19 00:12 Dose: 12.5 gm Documented by: Fluticasone Propionate (Flonase Nasal [place]) 1 spray NASAL DAILY [facility] Last Admin: 05/19/19 08:55 Dose: 1 spray Documented by: Furosemide (Lasix) 40 mg PO BIDLX [facility] Last Admin: 05/19/19 08:53 Dose: 40 mg Documented by: Gabapentin (Neurontin) 300 mg PO BIDCM [facility] Last Admin: 05/19/19 08:54 Dose: 300 mg Documented by: Glucagon () 1 mg IM .X1 PRN PRN Reason: Hypoglycemia Guaifenesin (Robitussin Dm) 10 ml PO Q6H PRN PRN PRN Reason: CONGESTION Heparin Sodium (Porcine) (Heparin Na) 5,000 unit SC Q8 [facility] Last Admin: 05/19/19 06:18 Dose: 5,000 unit Documented by: Sodium Chloride () 250 mls @ 15 mls/hr IV .[id number] PRN PRN Reason: Saline Flush Vancomycin IV Pharmacy to Dose (1 ea/ Sodium Chloride) 500 mls @ 250 mls/hr IV X1 PRN; Protocol PRN Reason: Rx to Dose Cefepime HCl 1 gm/ Sodium (Chloride) 50 mls @ 100 mls/hr IV Q24H [facility] Last Infusion: 05/18/19 17:19 Dose: Infused Documented by: Insulin Human Lispro (Humalog Kwikpen (Bkc)) 0 unit SC ACHS [facility]; Protocol Last Admin: 05/19/19 08:49 Dose: 3 u Documented by: Insulin Human Lispro (Humalog Kwikpen (Bkc)) 7 unit SC TIDAC [facility] Last Admin: 05/19/19 08:50 Dose: 7 u Documented by: Insulin Human Regular (Humulin R U-500 (Bkc)) 30 units SC DINNER [facility] Last Admin: 05/18/19 16:52 Dose: 30 u Documented by: Insulin Human Regular (Humulin R U-500 (Bkc)) 25 units SC DAILY@0730 [facility] Last Admin: 05/19/19 08:50 Dose: 25 u Documented by: Isosorbide Mononitrate (Imdur) 30 mg PO DAILY [facility] Last Admin: 05/19/19 08:54 Dose: 30 mg Documented by: Lisinopril (Zestril) 20 mg PO DAILY [facility] Last Admin: 05/19/19 08:54 Dose: 20 mg Documented by: Metoprolol Tartrate (Lopressor (Beta Emmanuel)) 50 mg PO BID [facility] Last Admin: 05/19/19 08:53 Dose: 50 mg Documented by: Metronidazole (Flagyl) 500 mg PO TID [facility] Last Admin: 05/19/19 06:18 Dose: 500 mg Documented by: Morphine Sulfate () 4 mg IV Q3H PRN PRN PRN Reason: Pain Score 6-10/10 Last Admin: 05/17/19 09:09 Dose: 4 mg Documented by: Multivit/Ca Carb/B Cmplx/FA/Prenat ([facility]rocaps, [facility]) [facility] Last Admin: 05/19/19 08:55 Dose: 1 capsule Documented by: Ondansetron HCl (Zofran) 4 mg IV Q8H PRN PRN PRN Reason: NAUSEA/VOMITING Last Admin: 05/18/19 04:44 Dose: 4 mg Documented by: Oxycodone HCl (Oxyir) 5 mg PO Q4H PRN PRN PRN Reason: Pain Score 6-10/10 Last Admin: 05/19/19 09:06 Dose: 5 mg Documented by: Pantoprazole Sodium (Protonix) 40 mg PO DAILY [facility] Last Admin: 05/19/19 08:53 Dose: 40 mg Documented by: Promethazine HCl (Phenergan) 12.5 mg IV Q6H PRN PRN PRN Reason: NAUSEA/VOMITING Last Admin: 05/19/19 08:32 Dose: 12.5 mg Documented by: Pyridoxine HCl (Vitamin B-6) [facility] Last Admin: 05/19/19 08:54 Dose: 100 mg Documented by: Sevelamer Carbonate (Renvela) 3,200 mg PO TIDCM [facility] Last Admin: 05/19/19 08:55 Dose: 3,200 mg Documented by: Sodium Chloride () 10 - 40 ml IV UD PRN PRN Reason: SALINE FLUSH Last Admin: 05/19/19 08:31 Dose: 40 ml Documented by: STROKE Vital Signs/Narrative: Vital Signs Temp Pulse Resp BP Pulse Ox 05/19/19 09:00 98.1 F 65 16 148/64 H 98 05/19/19 08:53 65 05/19/19 07:04 99 05/19/19 06:22 98.7 F 62 16 125/57 H 99 Medical Necessity - Tobacco Use Smoking Status: Never smoker Tobacco Use: Non-smoker Assessment/Plan All Active Problems (Last Updated 03/12/19 @ 17:43 by Kayla Tamayo MD) Diabetic foot infection (Acute) Bilateral foot wounds (Acute) Chest pain (Acute) 1. Right foot neuropathic ulceration with cellulitis as well as right foot osteomyelitis/type I DM/morbid obesity -Continue with IV cefepime and Vanco, cultures with Proteus, enterococcus, staph simulans, MRSA, and E. coli. -OR 05/16/2019, status post right fifth metatarsal head resection for osteomyelitis -Continue with insulin and monitor with Accu-Cheks AC at bedtime, he has had some low blood sugars and therefore will decrease his insulin dosing in half. Once he goes to the intermediate and start seeing back to his normal diet, will likely need to increase his insulin. -BMI is 41, discussed lifestyle modification 2. Chronic diastolic CHF/HTN/HLD toxic respiratory failure -His heart failure is currently not in exacerbation -Continue with aspirin, statin, Toprol, lisinopril, Lasix -Continue with chronic oxygen at 2.5 L nasal cannula 3. End-stage renal disease secondary to diabetes/anemia of chronic disease -Continue with dialysis Monday, , Saturdays -Appreciate nephrology assistance 4. GERD -Stable -Continue with PPI Dispo: SNF pending pre-CERT which unfortunately could not of been obtained on Monday DVT: Heparin Code Visit Inpatient E&M: 33979 Subs Hosp L2
[2019-05-19] MEDS: Acetaminophen 325 MG Tablet 650 MG PO (13:57)
[2019-05-19 14:11] LABS: Bedside Glucose 154 mg/dL (70-110)
[2019-05-19 17:25] LABS: Bedside Glucose 154 mg/dL (70-110)
[2019-05-19 19:21] LABS: Bedside Glucose 107 mg/dL (70-110)
[2019-05-19] MEDS: Atorvastatin Calcium 20 MG Tablet PO (21:19)
[2019-05-19 21:30] LABS: Bedside Glucose 104 mg/dL (70-110)
[2019-05-20 03:35] VITALS: BP 148/79; PULSE 60; RESP 16; TEMP 36.7; O2SAT 95
[2019-05-20] MEDS: metroNIDAZOLE 500 MG Tablet PO ×2 (06:32→14:10)
[2019-05-20] MEDS: Heparin Injection (Vial) 5,000 UNIT/ML VIAL 5000 UNIT SC (06:32)
[2019-05-20] MEDS: oxyCODONE 5 MG Tablet PO ×2 (06:38→14:17)
[2019-05-20 06:49] VITALS: O2SAT 92
[2019-05-20 07:49] VITALS: BP 163/71; PULSE 64; RESP 16; TEMP 36.6; O2SAT 94
[2019-05-20] MEDS: Gabapentin 300 MG Capsule PO (08:25)
[2019-05-20] MEDS: Pyridoxine HCl 100 MG Tablet PO (08:25)
[2019-05-20 08:26] VITALS: PULSE 64
[2019-05-20] MEDS: Aspirin E.C. 81 MG Tablet PO (08:26)
[2019-05-20] MEDS: Metoprolol Tartrate 50 MG Tablet PO (08:26)
[2019-05-20] MEDS: Furosemide 40 MG Tablet PO (08:26)
[2019-05-20] MEDS: SEVELAMER CARBONATE 800 MG TABLET 3200 MG PO ×2 (08:26→14:09)
[2019-05-20] MEDS: Pantoprazole Sodium 40 MG Tablet PO (08:26)
[2019-05-20] MEDS: Isosorbide Mononitrate 30 MG Tablet PO (08:26)
[2019-05-20] MEDS: Lisinopril 20 MG Tablet PO (08:27)
[2019-05-20] MEDS: Fluticasone 0.05% 1 SPRAY NASAL.SRY NASAL (08:29)
[2019-05-20] MEDS: proMETHazine 25 MG/ML Syringe 12.5 MG IV (08:39)
[2019-05-20 08:41] LABS: Bedside Glucose 153 mg/dL (70-110)
[2019-05-20] MEDS: Loperamide 2 MG Capsule PO (08:41)
[2019-05-20 08:51] VITALS: RESP 14; O2SAT 94
[2019-05-20] MEDS: Insulin Lispro 100 UNIT/ML INSULN.PEN 7 UNIT SC ×2 (10:14→14:08)
[2019-05-20] MEDS: Insulin Lispro 100 UNIT/ML INSULN.PEN SC ×2 (10:14→14:08)
--- NOTE | 2019-05-20 10:37 | TREXTCAR_ITS ---
- Diet 05/16/19 17:33 Diet: Carbohydrate Controlled Food consistency:: Regular Liquid Consistency:: Regular/Thin Type of Dietary Supplement:: [place] ([place]) Is pt able to select menu?: Yes Diet Comments: calorie controlled - Routine Orders/Code Status Suppository Type: Dulcolax 10mg Suppository Frequency: Daily PRN - Wound(s) bilat feet Wound Type: Abscess Left lateral foot Wound Type: Neuropathic/Diabetic Foot Ulcer Dressing Change: AntiMicrobial (Aquacel AG, etc) right lateral foot Wound Type: Neuropathic/Diabetic Foot Ulcer Dressing Change: AntiMicrobial (Aquacel AG, etc) - Allergies/Procedures Done in Hospital Allergies/Adverse Reactions: Allergies venom-honey bee [bee venom (honey bee)] Allergy (Verified 05/14/19 14:50) Swelling sulfamethoxazole [From Bactrim] Adverse Reaction (Verified 05/14/19 14:50) Upset Stomach trimethoprim [From Bactrim] Adverse Reaction (Verified 05/14/19 14:50) Upset Stomach - Type of Care/Length of Stay Estimated LOS: Convalescent Care Less Than 30 days Type of Care Needed: Skilled Rehab Potential: Good Prognosis: Good - Additional Orders/Day of Discharge Day of Discharge: 05/20/19 - Dietary and Speech Recommendations Dietitian Recommendations/Changes: Recommed Low Sodium Cardiac Diet with 1500ml fluid restriction. Recommend Cortez 1 pckt BID for wound healing--order from pharmacy. Will d/c Glucerna with [facility]. Will provide Nepro with Med Pass. - Follow Up Care Primary Care Physician: Augie Washburn MD [Primary Care Provider] - Please Follow Up With: Clinic,Wound - with Dr. Bravo. If concern prior to follow up, call [facility] at [phone]. When: within 1 week. Call to confirm appointment time/date. Please Follow Up With: Esteban Wallace MD When: in 2-3 weeks Please Follow Up With: Anca Gregorio DO When: ESRD on HD
--- NOTE | 2019-05-20 10:52 | PCM.PN.BLA ---
Progress Note afebrile, no changes. VSS PE mild BLE edema. Legs wrapped ESRD HD TTS diabetic foot ulcer cefepime and vanco after each dialysis until 06/27 per ID STROKE Vital Signs/Narrative: Vital Signs Temp Pulse Resp BP Pulse Ox 05/20/19 08:51 14 94 05/20/19 08:26 64 05/20/19 07:49 97.9 F 64 16 163/71 H 94
--- NOTE | 2019-05-20 11:00 | CASEMGMT ---
Addendum entered by Ade Kitchen 05/20/19 11:34: SW placed a call to Patricia Minor at [facility] and left her a message that pt will be discharged to [facility] today. Addendum entered by Ade Kitchen 05/20/19 11:33: Correction S/O is pt's [place]. Original Note: Social Work Note SW received message from Mallory at [facility] stating pre-cert has been obtained and pt can discharge to [facility] today. Physician updated. SW in to speak with pt. Pt and pt's significant other present in room. SW updated pt and S/O that pre-cert has been obtained and pt can discharge to [facility] today. Pt's S/O states she is able to transport pt to [facility]. SW will fax completed discharge paperwork once completed. Plan: [facility] today skilled Ade Kitchen VISUAL DESIGNER, THERMODYNAMICS ENGINEER
--- NOTE | 2019-05-20 11:14 | NURSING ---
wound photo: left foot
--- NOTE | 2019-05-20 11:15 | NURSING ---
wound photo: right foot
--- NOTE | 2019-05-20 11:42 | DS.PCM_ITS ---
Discharge Date and Diagnosis Date of Admission: 05/14/19 Date of Discharge: 05/20/19 - Primary Discharge Diagnosis Active and Suspected Problems (Last Updated 03/12/19 @ 17:43 by Kayla Tamayo MD) Diabetic foot infection (Acute) Bilateral foot wounds (Acute) - Secondary Discharge Diagnosis Chronic Problems (Last Updated 03/12/19 @ 17:43 by Kayla Tamayo MD) Chronic ulcer of left foot with fat layer exposed (Chronic) Ulcer of right foot with fat layer exposed (Chronic) Chronic ulcer of left foot with fat layer exposed (Chronic) Localized edema (Chronic) Malnutrition (Chronic) Type 2 diabetes mellitus with diabetic polyneuropathy (Chronic) Osteomyelitis (Chronic) Tailor's bunion of right foot (Chronic) Tailor's bunion of left foot (Chronic) Osteomyelitis (Chronic) differential diagnosis Peripheral vascular disease (Chronic) Toe fracture, right (Chronic) Non-pressure chronic ulcer of other part of right foot with fat layer exposed (Chronic) Non-pressure chronic ulcer of other part of left foot with fat layer exposed (Chronic) Type 1 diabetes mellitus (Chronic) Morbid obesity with BMI of 40.0-44.9, adult (Chronic) Noncompliance (Chronic) CHF (congestive heart failure) (Chronic) Abnormal stress test (Chronic) TIA (transient ischemic attack) (Chronic) Pulmonary hypertension (Chronic) Morbid obesity with BMI of 40.0-44.9, adult (Chronic) End stage renal disease on dialysis (Chronic) Chronic respiratory failure with hypoxia (Chronic) HTN (hypertension) (Chronic) Hyperlipidemia (Chronic) Diabetic neuropathy (Chronic) Anemia (Chronic) SELMA (obstructive sleep apnea) (Chronic) Hospital Course and Treatment Consultations 05/15/19 07:45 Consult: Onc/Wound/rivet sorter Routine Comment: Reason for Consult:: bilateral foot ulcers Operations: None Summary of Care Provided: The patient is a 48 year old M with multiple comorbidities including type 1 diabetes mellitus, chronic osteomyelitis, peripheral vascular disease was admitted to ER for bilateral feet wound with purulent drainage, malodor and surrounding cellulitis. Patient had area on his left lateral foot that appeared to be dry gangrene. Patient followed outpatient [facility] and was scheduled for surgical intervention and was started on antibiotics recently. Patient also had end-stage renal disease on is on dialysis Monday and Monday. Patient had MRI of right foot on 04/26 which showed fracture of the proximal metaphysis of the fourth proximal phalanx, osteomyelitis could not be excluded, there was also a nondisplaced fracture of the fifth proximal phalanx, bone edema of the plantar aspect of the head of the fifth metatarsal indicating reactive bone edema or early osteomyelitis. In ER, x-ray of left foot showed soft tissue edema at the level of fifth metatarsal phalangeal joint, right foot x-ray showed subcutaneous fracture of proximal fifth and fourth phalanges, soft tissue erosion at level of MTP joint of fifth diseased 1. Right foot neuropathic ulceration at left foot margin/fifth toe complicated with right foot osteomyelitis with surrounding cellulitis status post right fifth metatarsal head resection. The patient was admitted on [facility] floor. CRP 104. Glucose 263. Dr. Castro was consulted. ID was consulted. Patient had right lateral fifth toe neuropathic ulceration with surrounding/he with osteomyelitis. Patient had right fifth metatarsal head resection on 05/16/2019. On IV antibiotic vancomycin and cefepime. Wound cultures with Proteus, enterococcus, staph simulans, MRSA, and E. coli. Patient has peripheral IV line discharged on cefepime, vancomycin and oral Flagyl. Antibiotics scripts were given by ID. Patient glucose was controlled. A1c 9.9 high. -BMI is 41, suggestive of morbid obesity 2. Chronic diastolic CHF/HTN/HLD toxic respiratory failure -His heart failure is currently not in exacerbation -Continue with aspirin, statin, Toprol, lisinopril, Lasix -Continue with chronic oxygen at 2.5 L nasal cannula 3. End-stage renal disease secondary to diabetes/anemia of chronic disease -Continue with dialysis Monday, , Saturdays Dr. Gregorio is his consumer experience consultant. 4. GERD -Stable -Continue with PPI Discharge medication reconciliation done. Discharge follow-up instructions completed. Discharge process discussed with the patient and all questions were answered to patient's satisfaction. Discharge medication reconciliation done. Prescription for oxycodone, total 10 tablets given. Follow-up instructions completed. Total time spent, exact 35 minutes on discharge meds reconciliation, examination, review of imaging and blood test and discussion with the patient on follow-up instructions. Subjective: CC: Follow-up for wound infection No fever or chills. No tachycardia dynamically stable. Objective: General: Alert, Oriented x3, Cooperative, No apparent distress HEENT: Atraumatic, PERRLA, EOMI, Normocephalic Oral: Moist Mucosa Neck: Supple, No JVD Lungs: Clear to auscultation, Normal air movement, No rhonchi, No wheeze, No rales Cardiovascular: Regular rate, Regular Rhythm, Normal S1, Normal S2, No murmurs Abdomen: Soft, Non Tender, Non-Distended, No Hepato-splenomegaly Extremities: Capillary Refill Less than 3 Seconds, Edema - Slight Skin: Ulcer/ Wound - Bilateral lower extremity dressings intact Neurological: Neuro grossly intact, Sensory exam intact to light touch and pain Psych/Mental Status: Normal Affect, Appropriate - Physical Exam Vitals/I&O's: Vital Signs Temp Pulse Resp BP Pulse Ox 97.9 F 64 14 163/71 H 94 05/20/19 07:49 05/20/19 08:26 05/20/19 08:51 05/20/19 07:49 05/20/19 08:51 Oxygen Flow Rate (L/min) 1 Oxygen Delivery Method Room Air Weight: 268 lb 11.896 oz Body Mass Index (BMI) 41.2 Finger Stick Blood Glucose 191 Intake and Output for Last 24 Hours 05/18/19 05/19/19 05/20/19 23:59 23:59 23:59 Intake Total 1810 / 1810 1150 / 1750 1180 / 1180 Output Total 3700 / 3700 Balance -1890 / -1890 1150 / 1750 1180 / 1180 Microbiology Past 72 Hours 05/19/19 18:53 Stool Enteric Bacteriology - Final 05/16/19 16:30 Tissue - Right Foot Gram Stain - Final 05/16/19 16:30 Tissue - Right Foot Wound Culture - Preliminary Staphylococcus aureus Corynebacterium species Corynebacterium species#2 05/16/19 16:30 Tissue - Right Foot Anaerobic Culture - Final No anaerobic bacteria isolated. 05/16/19 16:31 Tissue - Right Foot Gram Stain - Final 05/16/19 16:31 Tissue - Right Foot Wound Culture - Preliminary Enterococcus faecalis 05/16/19 16:31 Tissue - Right Foot Anaerobic Culture - Preliminary No growth in 48 hours. 05/14/19 15:35 Blood Culture (Wb) - Left Wrist Blood Culture - Final No growth in 5 days. 05/14/19 15:25 Blood Culture (Wb) - Anticubital Left Blood Culture - Final No growth in 5 days. 05/19/19 18:53 Stool C. difficile DNA Amplification - Final 05/14/19 22:28 Wound - Aerobic & Anaerobic Swabs Gram Stain - Final 05/14/19 22:28 Wound - Aerobic & Anaerobic Swabs Wound Culture - Final Staphylococcus simulans Staphylococcus simulans#2 Corynebacterium minutissimum 05/14/19 22:28 Wound - Aerobic & Anaerobic Swabs Anaerobic Culture - Final No anaerobic bacteria isolated. 05/14/19 22:20 Wound - Aerobic & Anaerobic Swabs Gram Stain - Final 05/14/19 22:20 Wound - Aerobic & Anaerobic Swabs Wound Culture - Final Proteus vulgaris Enterococcus faecalis Escherichia coli Meth. resistant Staph. aureus 05/14/19 22:20 Wound - Aerobic & Anaerobic Swabs Anaerobic Culture - Final No anaerobic bacteria isolated. Laboratory Results 05/19/19 13:33: POC Glucose 154 H 05/19/19 17:11: POC Glucose 154 H 05/19/19 19:15: POC Glucose 107 05/19/19 21:16: POC Glucose 104 05/20/19 08:23: POC Glucose 153 H Current Medications Acetaminophen (Tylenol) 650 mg PO Q6H PRN PRN PRN Reason: Mild Pain (1-3)/Temp > 100.7 F Last Admin: 05/19/19 13:57 Dose: 650 mg Documented by: Aspirin (Ecotrin) 81 mg PO DAILY@0800 [facility] Last Admin: 05/20/19 08:26 Dose: 81 mg Documented by: Atorvastatin Calcium (Lipitor) 20 mg PO QHS [facility] Last Admin: 05/19/19 21:19 Dose: 20 mg Documented by: Cyclobenzaprine HCl (Flexeril) 10 mg PO TID PRN PRN PRN Reason: SPASMS Dextrose (D50w Syringe) 0 gm IV X1 PRN; Protocol PRN Reason: Hypoglycemia Last Admin: 05/18/19 00:12 Dose: 12.5 gm Documented by: Fluticasone Propionate (Flonase Nasal [place]) 1 spray NASAL DAILY [facility] Last Admin: 05/20/19 08:29 Dose: 1 spray Documented by: Furosemide (Lasix) 40 mg PO BIDLX [facility] Last Admin: 05/20/19 08:26 Dose: 40 mg Documented by: Gabapentin (Neurontin) 300 mg PO BIDCM [facility] Last Admin: 05/20/19 08:25 Dose: 300 mg Documented by: Glucagon () 1 mg IM .X1 PRN PRN Reason: Hypoglycemia Guaifenesin (Robitussin Dm) 10 ml PO Q6H PRN PRN PRN Reason: CONGESTION Heparin Sodium (Porcine) (Heparin Na) 5,000 unit SC Q8 [facility] Last Admin: 05/20/19 06:32 Dose: 5,000 unit Documented by: Sodium Chloride () 250 mls @ 15 mls/hr IV .[id number] PRN PRN Reason: Saline Flush Vancomycin IV Pharmacy to Dose (1 ea/ Sodium Chloride) 500 mls @ 250 mls/hr IV X1 PRN; Protocol PRN Reason: Rx to Dose Cefepime HCl 1 gm/ Sodium (Chloride) 50 mls @ 100 mls/hr IV Q24H [facility] Last Infusion: 05/19/19 16:31 Dose: Infused Documented by: Insulin Human Lispro (Humalog Kwikpen (Bkc)) 0 unit SC ACHS [facility]; Protocol Last Admin: 05/20/19 10:14 Dose: 3 u Documented by: Insulin Human Lispro (Humalog Kwikpen (Bkc)) 7 unit SC TIDAC [facility] Last Admin: 05/20/19 10:14 Dose: 7 u Documented by: Insulin Human Regular (Humulin R U-500 (Bkc)) 30 units SC DINNER [facility] Last Admin: 05/19/19 17:15 Dose: 30 u Documented by: Insulin Human Regular (Humulin R U-500 (Bkc)) 25 units SC DAILY@0730 [facility] Last Admin: 05/20/19 10:13 Dose: 25 u Documented by: Isosorbide Mononitrate (Imdur) 30 mg PO DAILY [facility] Last Admin: 05/20/19 08:26 Dose: 30 mg Documented by: Lisinopril (Zestril) 20 mg PO DAILY [facility] Last Admin: 05/20/19 08:27 Dose: 20 mg Documented by: Loperamide HCl (Imodium) 2 mg PO Q6H PRN PRN PRN Reason: Diarrhea Last Admin: 05/20/19 08:41 Dose: 2 mg Documented by: Metoprolol Tartrate (Lopressor (Beta Emmanuel)) 50 mg PO BID [facility] Last Admin: 05/20/19 08:26 Dose: 50 mg Documented by: Metronidazole (Flagyl) 500 mg PO TID [facility] Last Admin: 05/20/19 06:32 Dose: 500 mg Documented by: Morphine Sulfate () 4 mg IV Q3H PRN PRN PRN Reason: Pain Score 6-10/10 Last Admin: 05/17/19 09:09 Dose: 4 mg Documented by: Multivit/Ca Carb/B Cmplx/FA/Prenat (Nephrocaps, Renaphro) 1 capsule [facility] Last Admin: 05/20/19 10:14 Dose: Not Given Documented by: Ondansetron HCl (Zofran) 4 mg IV Q8H PRN PRN PRN Reason: NAUSEA/VOMITING Last Admin: 05/18/19 04:44 Dose: 4 mg Documented by: Oxycodone HCl (Oxyir) 5 mg PO Q4H PRN PRN PRN Reason: Pain Score 6-1010 Last Admin: 05/20/19 06:38 Dose: 5 mg Documented by: Pantoprazole Sodium (Protonix) 40 mg PO DAILY [facility] Last Admin: 05/20/19 08:26 Dose: 40 mg Documented by: Promethazine HCl (Phenergan) 12.5 mg IV Q6H PRN PRN PRN Reason: NAUSEA/VOMITING Last Admin: 05/20/19 08:39 Dose: 12.5 mg Documented by: Pyridoxine HCl (Vitamin B-6) 100 mg PO [facility]ILY[facility] Last Admin: 05/20/19 08:25 Dose: 100 mg Documented by: Sevelamer Carbonate (Renvela) 3,200 mg PO TIDCM [facility] Last Admin: 05/20/19 08:26 Dose: 3,200 mg Documented by: Sodium Chloride () 10 - 40 ml IV UD PRN PRN Reason: SALINE FLUSH Last Admin: 05/19/19 16:01 Dose: 10 ml Documented by: Discharge Activity: May Not Drive Weight Bearing Status: Partial weight bearing - heel weightbear bilateral with surgical shoes and use of walker Keep extremity elevated above heart level: Right Leg Call your doctor if your incision/area has: Continuous Slow Oozing, Sudden Increased Bleeding, Increased Pain/ Swelling, Increased Redness, Foul Smelling Discharge, Swelling at the incision site Call your doctor if you observe: Fever of 101 or Higher, Calf discomfort, Uncontrolled pain Cleanse incision/area with: Keep Dressing Clean & Dry - right lower extremity surgical dressing, - - change left foot dressing daily with adaptic, gauze, kerlix. Home Medications: Medications to take at Discharge Atorvastatin Calcium [Lipitor] 20 mg PO QHS 10/11/17 Pyridoxine HCl [Vitamin B-6] 100 mg PO DAILY 10/11/17 Vits A,C,E/Lutein/Minerals [Ocuvite with Lutein Tablet] 1 ea PO DAILY 10/11/17 Folic Acid/Vitamin B Comp W-C [Nephrocaps, Renaphro] 1 cap PO DAILY 10/27/17 albuterol sulfate HFA 90 mcg/actuation aerosol inhaler 2 puff INHALATION Q4H PRN #18 g 02/26/18 Aspirin E.C. [Ecotrin] 81 mg PO DAILY 03/23/18 Cyclobenzaprine HCl 10 mg PO TID PRN PRN 03/23/18 Fluticasone 0.05% [Flonase Nasal [place]] 1 spray NASAL DAILY 03/23/18 Gabapentin [Neurontin] 300 mg PO BID 03/23/18 isosorbide mononitrate ER 30 mg tablet,extended release 24 hr 30 mg PO DAILY #30 tab 07/24/18 Acetaminophen [Tylenol Tablet] 650 mg PO Q6H PRN PRN tab 09/19/18 Guaifenesin Dm [Robitussin Dm] 10 ml PO Q6H PRN PRN #1 bottle 11/21/18 Furosemide [Lasix] 40 mg PO BID 03/12/19 Metoprolol Tartrate [Lopressor (beta emmanuel)] 50 mg PO BID 03/12/19 Omeprazole 40 mg PO DAILY 03/12/19 proMETHazine tablet [Phenergan tablet] 25 mg PO TID PRN 03/13/19 Collagenase [Santyl] 1 applic TOPICAL DAILY tube 03/15/19 Lisinopril [Zestril] 20 mg PO DAILY tab 03/20/19 Sevelamer HCl [Renagel] 2,400 mg PO TID #0 03/20/19 Cefepime HCl [Maxipime] 2 gm IV UD 40 Days #18 vial 05/17/19 Vancomycin IV Pharmacy to Dose 2 gm IV UD 40 Days #18 ea 05/17/19 metroNIDAZOLE [Flagyl] 500 mg PO TID 40 Days #120 tab 05/17/19 Humulin R U-500 (BKC) 25 units SUBCUT BREAKFAST #0 05/20/19 Insulin Lispro [Humalog KwikPen] 10 unit SUBCUT TIDAC #0 insuln.pen 05/20/19 Insulin Lispro [Humalog KwikPen] See Protocol SUBCUT ACHS insuln.pen 05/20/19 Insulin U-500 [Humulin R U-500 (BKC)] 30 units SUBCUT DINNER pen 05/20/19 Oxycodone [Oxyir] 5 mg PO Q4H PRN PRN 3 Days #10 tab 05/20/19 Following Prescrptions Were Given to Patient: Cefepime HCl [Maxipime] 2 gm IV UD 40 Days #18 vial Prescription Printed Oxycodone [Oxyir] 5 mg PO Q4H PRN PRN 3 Days #10 tab PRN Reason: Pain Score 6-10/10 Prescription Printed Vancomycin IV Pharmacy to Dose 2 gm IV UD 40 Days #18 ea Prescription Printed Primary Care Physician: Augie Washburn MD [Primary Care Provider] - Please Follow Up With: Clinic,Wound - with Dr. Bravo. If concern prior to follow up, call [facility] at [phone]. When: within 1 week. Call to confirm appointment time/date. Please Follow Up With: Esteban Wallace MD When: in 2-3 weeks Please Follow Up With: Anca Gregorio DO When: ESRD on HD Medical Necessity - Tobacco Use Smoking Status: Never smoker Tobacco Use: Non-smoker Meaningful Use Info Meaningful Use Diagnoses (Choose all that apply): None applicable Code Visit Inpatient E&M: 54728 Disch Hosp
--- NOTE | 2019-05-20 12:10 | CASEMGMT ---
Social Work Note WILFREDO faxed completed discharge paperwork to [facility] including transfer to extended care facility, signed medication list and any scripts. Original in SNF folder and copy on pt's chart. WILFREDO completed [facility] in [facility]. Original in SNF folder and copy on pt's chart. WILFREDO updated RN that pt is able to discharge when pt's is able to transport as all needed documents are completed. RN states understanding. WILFREDO placed a call to Mallory at [facility] and updated her that pt will be discharged today and that pt's spouse will be transporting pt soon. Mallory states understanding. Plan: [facility] today skilled with pt's transporting Ade Kitchen FREELANCE PHOTOGRAPHER, HOME CARE MUSIC THERAPIST
[2019-05-20 14:11] VITALS: BP 162/73; PULSE 63; RESP 18; TEMP 36.2; O2SAT 95
[2019-05-20 14:20] LABS: Bedside Glucose 153 mg/dL (70-110)
--- NOTE | 2019-05-20 15:07 | PN.ID_ITS ---
Patient Problems: Active and Suspected Problems (Last Updated 03/12/19 @ 17:43 by Kayla Tamayo MD) Diabetic foot infection (Acute) Bilateral foot wounds (Acute) Subjective: Feeling ok, mild nausea, no fever - Physical Exam Vitals/I&O's: Vital Signs Temp Pulse Resp BP Pulse Ox 97.1 F L 63 18 162/73 H 95 05/20/19 14:11 05/20/19 14:11 05/20/19 14:11 05/20/19 14:11 05/20/19 14:11 Oxygen Flow Rate (L/min) 1 Oxygen Delivery Method Room Air Weight: 121.9 kg Body Mass Index (BMI) 41.2 Finger Stick Blood Glucose 191 Intake and Output for Last 24 Hours 05/18/19 05/19/19 05/20/19 23:59 23:59 23:59 Intake Total 1810 / 1810 1150 / 1750 1180 / 1180 Output Total 3700 / 3700 Balance -1890 / -1890 1150 / 1750 1180 / 1180 General: Alert, Cooperative, No apparent distress Lungs: Clear to auscultation, Normal air movement Cardiovascular: Regular rate, Regular Rhythm Abdomen: Soft, Non Tender, Non-Distended Skin: Ulcer/ Wound - reviewed photos Microbiology Past 72 Hours 05/19/19 18:53 Stool Enteric Bacteriology - Final 05/16/19 16:30 Tissue - Right Foot Gram Stain - Final 05/16/19 16:30 Tissue - Right Foot Wound Culture - Preliminary Staphylococcus aureus Corynebacterium species Corynebacterium species#2 05/16/19 16:30 Tissue - Right Foot Anaerobic Culture - Final No anaerobic bacteria isolated. 05/16/19 16:31 Tissue - Right Foot Gram Stain - Final 05/16/19 16:31 Tissue - Right Foot Wound Culture - Preliminary Enterococcus faecalis 05/16/19 16:31 Tissue - Right Foot Anaerobic Culture - Preliminary No growth in 48 hours. 05/14/19 15:35 Blood Culture (Wb) - Left Wrist Blood Culture - Final No growth in 5 days. 05/14/19 15:25 Blood Culture (Wb) - Anticubital Left Blood Culture - Final No growth in 5 days. 05/19/19 18:53 Stool C. difficile DNA Amplification - Final 05/14/19 22:28 Wound - Aerobic & Anaerobic Swabs Gram Stain - Final 05/14/19 22:28 Wound - Aerobic & Anaerobic Swabs Wound Culture - Final Staphylococcus simulans Staphylococcus simulans#2 Corynebacterium minutissimum 05/14/19 22:28 Wound - Aerobic & Anaerobic Swabs Anaerobic Culture - Final No anaerobic bacteria isolated. 05/14/19 22:20 Wound - Aerobic & Anaerobic Swabs Gram Stain - Final 05/14/19 22:20 Wound - Aerobic & Anaerobic Swabs Wound Culture - Final Proteus vulgaris Enterococcus faecalis Escherichia coli Meth. resistant Staph. aureus 05/14/19 22:20 Wound - Aerobic & Anaerobic Swabs Anaerobic Culture - Final No anaerobic bacteria isolated. Laboratory Results 05/19/19 17:11: POC Glucose 154 H 05/19/19 19:15: POC Glucose 107 05/19/19 21:16: POC Glucose 104 05/20/19 08:23: POC Glucose 153 H 05/20/19 14:06: POC Glucose 153 H Current Medications Acetaminophen (Tylenol) 650 mg PO Q6H PRN PRN PRN Reason: Mild Pain (1-3)/Temp > 100.7 F Last Admin: 05/19/19 13:57 Dose: 650 mg Documented by: Aspirin (Ecotrin) 81 mg PO DAILY@0800 [facility] Last Admin: 05/20/19 08:26 Dose: 81 mg Documented by: Atorvastatin Calcium (Lipitor) 20 mg PO QHS [facility] Last Admin: 05/19/19 21:19 Dose: 20 mg Documented by: Cyclobenzaprine HCl (Flexeril) 10 mg PO TID PRN PRN PRN Reason: SPASMS Dextrose (D50w Syringe) 0 gm IV X1 PRN; Protocol PRN Reason: Hypoglycemia Last Admin: 05/18/19 00:12 Dose: 12.5 gm Documented by: Fluticasone Propionate (Flonase Nasal [place]) 1 spray NASAL DAILY [facility] Last Admin: 05/20/19 08:29 Dose: 1 spray Documented by: Furosemide (Lasix) 40 mg PO BIDLX [facility] Last Admin: 05/20/19 08:26 Dose: 40 mg Documented by: Gabapentin (Neurontin) 300 mg PO BIDCM [facility] Last Admin: 05/20/19 08:25 Dose: 300 mg Documented by: Glucagon () 1 mg IM .X1 PRN PRN Reason: Hypoglycemia Guaifenesin (Robitussin Dm) 10 ml PO Q6H PRN PRN PRN Reason: CONGESTION Heparin Sodium (Porcine) (Heparin Na) 5,000 unit SC Q8 [facility] Last Admin: 05/20/19 14:19 Dose: Not Given Documented by: Sodium Chloride () 250 mls @ 15 mls/hr IV .[id number] PRN PRN Reason: Saline Flush Vancomycin IV Pharmacy to Dose (1 ea/ Sodium Chloride) 500 mls @ 250 mls/hr IV X1 PRN; Protocol PRN Reason: Rx to Dose Cefepime HCl 1 gm/ Sodium (Chloride) 50 mls @ 100 mls/hr IV Q24H [facility] Last Infusion: 05/19/19 16:31 Dose: Infused Documented by: Insulin Human Lispro (Humalog Kwikpen (Bkc)) 0 unit SC ACHS [facility]; Protocol Last Admin: 05/20/19 14:08 Dose: 3 u Documented by: Insulin Human Lispro (Humalog Kwikpen (Bkc)) 7 unit SC TIDAC [facility] Last Admin: 05/20/19 14:08 Dose: 7 u Documented by: Insulin Human Regular (Humulin R U-500 (Bkc)) 30 units SC DINNER [facility] Last Admin: 05/19/19 17:15 Dose: 30 u Documented by: Insulin Human Regular (Humulin R U-500 (Bkc)) 25 units SC DAILY@0730 [facility] Last Admin: 05/20/19 10:13 Dose: 25 u Documented by: Isosorbide Mononitrate (Imdur) 30 mg PO DAILY [facility] Last Admin: 05/20/19 08:26 Dose: 30 mg Documented by: Lisinopril (Zestril) 20 mg PO DAILY [facility] Last Admin: 05/20/19 08:27 Dose: 20 mg Documented by: Loperamide HCl (Imodium) 2 mg PO Q6H PRN PRN PRN Reason: Diarrhea Last Admin: 05/20/19 08:41 Dose: 2 mg Documented by: Metoprolol Tartrate (Lopressor (Beta Emmanuel)) 50 mg PO BID [facility] Last Admin: 05/20/19 08:26 Dose: 50 mg Documented by: Metronidazole (Flagyl) 500 mg PO TID [facility] Last Admin: 05/20/19 14:10 Dose: 500 mg Documented by: Morphine Sulfate () 4 mg IV Q3H PRN PRN PRN Reason: Pain Score 6-10/10 Last Admin: 05/17/19 09:09 Dose: 4 mg Documented by: Multivit/Ca Carb/B Cmplx/FA/Prenat (Nephrocaps, Renaphro) [facility] Last Admin: 05/20/19 10:14 Dose: Not Given Documented by: Ondansetron HCl (Zofran) 4 mg IV Q8H PRN PRN PRN Reason: NAUSEA/VOMITING Last Admin: 05/18/19 04:44 Dose: 4 mg Documented by: Oxycodone HCl (Oxyir) 5 mg PO Q4H PRN PRN PRN Reason: Pain Score 6-1010 Last Admin: 05/20/19 14:17 Dose: 5 mg Documented by: Pantoprazole Sodium (Protonix) 40 mg PO DAILY [facility] Last Admin: 05/20/19 08:26 Dose: 40 mg Documented by: Promethazine HCl (Phenergan) 12.5 mg IV Q6H PRN PRN PRN Reason: NAUSEA/VOMITING Last Admin: 05/20/19 08:39 Dose: 12.5 mg Documented by: Pyridoxine HCl (Vitamin B-6) [facility] Last Admin: 05/20/19 08:25 Dose: 100 mg Documented by: Sevelamer Carbonate (Renvela) 3,[facility] Last Admin: 05/20/19 14:09 Dose: 3,200 mg Documented by: Sodium Chloride () 10 - 40 ml IV UD PRN PRN Reason: SALINE FLUSH Last Admin: 05/19/19 16:01 Dose: 10 ml Documented by: Medical Necessity - Tobacco Use Smoking Status: Never smoker Tobacco Use: Non-smoker Route of nutrition/ use of supplements: [] Nutritional Intake: [] IV Site: [] Kuo Catheter: [] - Assessment/Plan Antibiotics: [] Assessment/Plan: [] Active and Suspected Problems (Last Updated 03/12/19 @ 17:43 by Kayla Tamayo MD) Diabetic foot infection (Acute) Bilateral foot wounds (Acute) R foot osteo - wound cx with staph x2, GPR, proteus, enterococcus, ecoli. Surgery with 5th met resection 05/16/[address] Fascione. Prior cx with enterococcus, bacillus, corynebacteria, anaerobes. Plan for discharge will be 6 weeks of vanc and cefepime dosed with HD on along with po flagyl. Stop date 06/27/19. Weekly labs. Wrote rx. D/w correctional counselor/case manager. ID followup in 2-3 weeks. Will follow.
--- NOTE | 2019-05-20 15:07 | NURSING ---
called report to Angelina at [facility] at this time.
== END 2019-05-20 15:00 | disposition skilled nursing facility (03) | DRG 617 ==
LOC: ED 16:21 → MS3 18:03
PROVIDERS: Anesthesiology; Family Medicine; Internal Medicine Nephrology; Nurse Practitioner Family; Podiatrist; Admitting Provider Internal Medicine; Emergency Provider Emergency Medicine; Family Provider Internal Medicine; PCP Internal Medicine; Visit Provider Internal Medicine
PROC: 0Y6M0ZF Detachment at Right Foot, Partial 5th Ray, Open Approach (ICD-10-PCS; principal; 2019-05-16 15:00)
DX: E10.628 Type 1 diabetes mellitus with other skin complications (principal); Z68.41 Body mass index [BMI] 40.0-44.9, adult; J96.11 Chronic respiratory failure with hypoxia; I50.32 Chronic diastolic (congestive) heart failure; I13.2 Hypertensive heart and chronic kidney disease with heart failure and with stage 5 chronic kidney disease, or end stage renal disease; L03.115 Cellulitis of right lower limb; M86.8X7 Other osteomyelitis, ankle and foot; E10.69 Type 1 diabetes mellitus with other specified complication; N18.6 End stage renal disease; E66.01 Morbid (severe) obesity due to excess calories; E10.42 Type 1 diabetes mellitus with diabetic polyneuropathy; E78.5 Hyperlipidemia, unspecified; G47.33 Obstructive sleep apnea (adult) (pediatric); I27.20 Pulmonary hypertension, unspecified; E10.22 Type 1 diabetes mellitus with diabetic chronic kidney disease; Z99.2 Dependence on renal dialysis; E10.51 Type 1 diabetes mellitus with diabetic peripheral angiopathy without gangrene; B96.4 Proteus (mirabilis) (morganii) as the cause of diseases classified elsewhere; B95.2 Enterococcus as the cause of diseases classified elsewhere; B95.62 Methicillin resistant Staphylococcus aureus infection as the cause of diseases classified elsewhere; B96.20 Unspecified Escherichia coli [E. coli] as the cause of diseases classified elsewhere; B95.7 Other staphylococcus as the cause of diseases classified elsewhere; Z99.81 Dependence on supplemental oxygen; K21.9 Gastro-esophageal reflux disease without esophagitis; D63.8 Anemia in other chronic diseases classified elsewhere; E10.65 Type 1 diabetes mellitus with hyperglycemia; R23.8 Other skin changes; E10.621 Type 1 diabetes mellitus with foot ulcer; M21.622 Bunionette of left foot; M21.621 Bunionette of right foot; M20.42 Other hammer toe(s) (acquired), left foot; M20.41 Other hammer toe(s) (acquired), right foot; L97.512 Non-pressure chronic ulcer of other part of right foot with fat layer exposed; Z79.899 Other long term (current) drug therapy; Z79.4 Long term (current) use of insulin; Z79.82 Long term (current) use of aspirin; E83.39 Other disorders of phosphorus metabolism; Z23 Encounter for immunization
CPT/HCPCS: 36415; 73630; 76000; 80048; 80069; 82947; 82962; 83036; 83605; 85025; 85027; 85652; 85730; 86140; 87015; 87040; 87070; 87075; 87077; 87102; 87116; 87186; 87205; 87206; 87493; 87506; 88304; 88305; 88311; 90937; 97110; 97162; 97166; 97530; 97802; 99285; G0008; J7030; J7040; J7050; J7120; 90686; A4216; G0257; J2405; Q5106

== ENCOUNTER 2019-05-15 15:15 | Outpatient (RCR) | payer MEDICARE, SELFPAY ==
[2019-04-03 10:30] VITALS: BMI 40.7
[2019-05-03 01:20] VITALS: BP 157/78; PULSE 69; RESP 20; TEMP 35.9
[2019-05-08 15:31] VITALS: RESP 16; TEMP 36.4; BMI 40.7
--- NOTE | 2019-05-08 17:02 | PN.PCM_ITS ---
(1) Ulcer of right foot with fat layer exposed Status: Chronic Current Visit: Yes Code(s): L97.512 - Non-pressure chronic ulcer of other part of right foot with fat layer exposed (2) Type 2 diabetes mellitus with diabetic polyneuropathy Status: Chronic Current Visit: Yes Code(s): E11.42 - Type 2 diabetes mellitus with diabetic polyneuropathy (3) Osteomyelitis Status: Suspected Current Visit: Yes Code(s): M86.9 - Osteomyelitis, unspecified (4) Tailor's bunion of right foot Status: Chronic Current Visit: Yes Code(s): M21.621 - Bunionette of right foot Type of Wound Date of Service: 05/08/19 Chief Complaint: Right foot ulcer. Left foot ulcer History of Wound: This 48-year-old male with diabetes, peripheral vascular disease (calcified vessels), chronic kidney disease, sleep apnea, obesity and other comorbidities has chronic bilateral foot ulcers. He was admitted to [facility] mid March 2019 in which she was treated for cellulitis with IV antibiotics and he was screened for other infection of deep tissue or injuries. His x-ray looks like chronic fractures of the fourth toe these have remained stable. His cellulitis was addressed with intravenous antibiotics. During his last hospital admission the main concern was his peripheral vascular disease and he did have an abdominal pelvic right lower extremity arteriogram with angioplasty of the right proximal anterior tibial artery and right tibial peroneal trunk with improved perfusion with Dr. Tuttle. The blackened tissue at his right foot ulcer site has since resolved and he was recently seen by Dr. Tejeda in the outpatient setting at the [facility]. Over the past month he is failed to demonstrate improvement and there is now concern of development of osteomyelitis to the fifth metatarsal head area. An MRI was obtained suggesting this may also be the current case. A fifth ray resection was recommended. He is here today for another opinion to see if any other surgical procedures are an option or if he is a candidate for hyperbaric oxygen therapy. He is been offloading with surgical shoes and tries to take nutritional supplementation as advised. He denies fever, chill, nausea, vomiting. He denies claustrophobia. He relates he had a previous echocardiogram. He denies other acute illnesses at this time. Progress of Wound: Stable. He is not sure if his left foot ulcer is healed or open - Physical Exam Vital Signs Temp Pulse Resp BP 97.5 F L 69 16 157/78 H 05/08/19 15:31 05/03/19 01:20 05/08/19 15:31 05/03/19 01:20 General: Alert, Oriented x3, Cooperative, No apparent distress Extremities: No cyanosis, Capillary Refill Less than 3 Seconds, No Calf Tenderness, Diminished Peripheral Pulses, Edema Skin: Ulcer/ Wound - There is no purulence, erythema, necrosis, streaking, or odor. The ulcer bed is granular with fibrous tissue. There is no direct probe to bone. This is larger than the last time he was at [facility]. There is no eschar noted. There is no ulcer to the digits or interdigital spaces of the right foot. There is no current ulcer noted on the left foot. There is full epithelialization to the sub-first metatarsal head left. It is noted he does have non-blanchable skin without blister drainage formation to the sub- fifth metatarsal head on the left foot. Wound Measurements and Assessment WC - Nurse 1 - General Ulcer Measurement Start: 05/08/19 15:30 Freq: Status: Active Protocol: Activity Type Activity Date Activity User E-Sign Co-Sign Detail Recorded Client Recorded Date Recorded By Document 05/08/19 15:31 [facility] [id number] 05/08/19 15:47 [facility] 05/08/19 15:31 Wound Center Nurse 1 [Ulcer Assessment] #4- R LAT PLANTAR -Combined with other wound No -Current Size (cm) - Length 2.8 -Current Size (cm) - Width 3.2 -Current Size (cm) - Depth 0.2 -Total Square Cm 8.96 -Date of Last Picture (Recall this 05/08/19 field) -Photo Taken Yes -Epithelialization None Present -Tunneling No -Undermining/Tunneling No -Circular Undermining No -Exudate Amt Medium -Exudate Type Serosanguineous -Wound Margin Distinct, Outline Attached -Granulation Amt Small (1-33%) -Granulation Quality Red -Slough/Fibrin Yes -Necrosis Amt Large (67-100%) -Necrotic Tissue Type Adherent Slough -Texture (Amanda-wound Skin Appearance) Assessed, Scarring -Moisture (Amanda-wound Skin Appearance Assessed, ) Maceration -Color (Amanda-wound Skin Appearance) Assessed, Erythema,Palor -Temperature (Amanda-wound Skin No Abnormality Appearance) (Pt Warm) -Tenderness on Palpation (Amanda-wound No Skin Appearance) -Ulcer Cleansing SOAPY WATER -Foul Odor after Cleansing No -Anesthetic Used 5% Lidocaine Gel #3- L PLANTAR -Combined with other wound No -Current Size (cm) - Length 0.1 -Current Size (cm) - Width 0.1 -Current Size (cm) - Depth 0.1 -Total Square Cm 0.01 -Date of Last Picture (Recall this 05/08/19 field) -Photo Taken Yes -Epithelialization None Present -Tunneling No -Undermining/Tunneling No -Circular Undermining No -Exudate Amt None Present -Granulation Amt None Present (0 %) -Texture (Amanda-wound Skin Appearance) Callus -Moisture (Amanda-wound Skin Appearance Assessed,Dry/ ) Scaly -Color (Amanda-wound Skin Appearance) Assessed -Temperature (Amanda-wound Skin No Abnormality Appearance) (Pt Warm) -Tenderness on Palpation (Amanda-wound No Skin Appearance) -Ulcer Cleansing SOAPY WATER -Foul Odor after Cleansing No -Anesthetic Used 5% Lidocaine Gel [Edema Assessment] -Lower Limb Edema Present Yes -Right Calf (cm) 48 -Right Ankle (cm) 26.4 -Left Calf (cm) 48.2 -Left Ankle (cm) 26.2 WC - Nurse 2 - General Ulcer CM Notes Start: 05/08/19 15:30 Freq: Status: Active Protocol: Activity Type Activity Date Activity User E-Sign Co-Sign Detail Recorded Client Recorded Date Recorded By Document 05/08/19 16:02 MICHAEL [id number] 05/08/19 16:09 MICHAEL 05/08/19 16:02 Wound Center Nurse 2 [Procedure/Treatment] #4- R LAT PLANTAR -Time 16:05 -Correct Patient Yes -Correct Side, Site, Position Yes -Correct Procedure Yes -Procedure Performed Yes -Type of Procedure Debridement -Clinical Debridement Subcutaneous -Post Debridement Size (cm) - Length 2.9 -Post Debridement Size (cm) - Width 3.3 -Post Debridement Size (cm) - Depth 0.2 -Total Square Cm 9.57 -Wound/Ulcer Outcome Not Healed -Ulcer Cleansing Rinsed/ Irrigated with Saline -Foul Odor after Cleansing No -Bioengineered Tissue No -Bleeding Controlled with Pressure -Offloading No -Treatment Response Procedure Tolerated Well #3- L PLANTAR -Time 16:06 -Correct Patient No -Correct Side, Site, Position No -Correct Procedure No -Procedure Performed No -Wound/Ulcer Outcome Not Healed -Bioengineered Tissue No -Bleeding Controlled with NA -Offloading No -Treatment Response Procedure Tolerated Well [See Physician Procedure note for Specifics] Pain Scale: 0-10 Numeric [Pain] -Is Patient Pain Free? Yes Musculoskeletal: No Tenderness to Palpation of Joints or Extremities, Muscle Wasting, - - Dorsal contraction of lesser toes bilateral with prominent fifth metatarsal head consistent with tailor bunion right foot. Compartments are soft to palpate bilateral lower extremities and active range of motion of digits are noted Neurological: - - Lack of normal epicritic sensation light touch consistent with neuropathy status Psych/Mental Status: Normal Affect, Appropriate Debridement Note Post-Debridement Measurements/Treatment WC - Nurse 2 - General Ulcer CM Notes Start: 05/08/19 15:30 Freq: Status: Active Protocol: Activity Type Activity Date Activity User E-Sign Co-Sign Detail Recorded Client Recorded Date Recorded By Document 05/08/19 16:02 [id number] 05/08/19 16:09 MICHAEL 05/08/19 16:02 Wound Center Nurse 2 #4- R LAT PLANTAR -Time 16:05 -Correct Patient Yes -Correct Side, Site, Position Yes -Correct Procedure Yes -Procedure Performed Yes -Type of Procedure Debridement -Clinical Debridement Subcutaneous -Post Debridement Size (cm) - Length 2.9 -Post Debridement Size (cm) - Width 3.3 -Post Debridement Size (cm) - Depth 0.2 -Total Square Cm 9.57 -Wound/Ulcer Outcome Not Healed -Ulcer Cleansing Rinsed/ Irrigated with Saline -Foul Odor after Cleansing No -Bioengineered Tissue No -Bleeding Controlled with Pressure -Offloading No -Treatment Response Procedure Tolerated Well #3- L PLANTAR -Time 16:06 -Correct Patient No -Correct Side, Site, Position No -Correct Procedure No -Procedure Performed No -Wound/Ulcer Outcome Not Healed -Bioengineered Tissue No -Bleeding Controlled with NA -Offloading No -Treatment Response Procedure Tolerated Well Pain Scale: 0-10 Numeric Is Patient Pain Free? Yes Wound debrided: plantar lateral foot sub 5th metatarsal head Laterality: Right Wound Grade/Stage: grade 1 (work up for grade 3 in process) Type of Debridement: Excisional debridement Anesthesia Used: 5% Lidocaine Gel Depth: in the subcutaneous layer Percentage of wound debrided: 100 Instrument Used: #15 blade Tissue Removed: fibrous, devitalized subcutaneous, biofilm, slough Severity: Fat Layer Exposed Amount of bleeding with debridement: Mild Bleeding Controlled with: Pressure Patient tolerated procedure well Assessment/Plan Active Problems (Last Updated 03/12/19 @ 17:43 by Kayla Tamayo MD) Ulcer of right foot with fat layer exposed (Chronic) Type 2 diabetes mellitus with diabetic polyneuropathy (Chronic) Tailor's bunion of right foot (Chronic) Assessment: Diabetes with neuropathy (hemoglobin A1c 12%). Right foot ulcer sub-fifth metatarsal heads. Osteomyelitis is working diagnosis at this time to the fifth metatarsal head. Right fourth and fifth proximal phalanx nondisplaced nonarticular fractures-this may be pathological fracture versus chronic fracture. Left sub-first metatarsal head, healed today. Foot deformities including hammertoes, talar bunion, and hallux limitus bilateral. Peripheral vascular disease now status post vascular surgery intervention. Other comorbidities including noncompliance, renal disease on dialysis, cardiac history. Malnutrition suspected. Gait instability Plan: I reviewed and discussed his case. Subcutaneous excisional debridement was performed to the right foot as noted in the clinical panel. To change dressing daily with [employer] as he has been performing is ready. To continue with offloading surgical shoes and heel weight-bear. To use assistive device as needed. His x-rays from his most recent hospital admission were reviewed with no soft tissue emphysema or foreign body. He does have notable small vessel calcification consistent with vascular disease status. He does also have cortical interruption of the fourth and fifth proximal phalanx at the metaphyseal diaphyseal junction in a transverse nondisplaced nonarticular manner. There is no periosteal reaction or osseous destruction. He had an MRI complete with bone marrow edema of the fifth metatarsal head which may correspond with the clinical diagnosis of subacute osteomyelitis. This is his current diagnosis at this time. Infectious disease was on consultation in the outpatient setting as he has been following the [facility] the last month, and tentatively did not recommend extended course of antibiotics. He does not have systemic illness or chayo local signs of infection noted today. I recommend proceeding forward is treating this as osteomyelitis and deformity with a combination of hyperbaric oxygen therapy and surgical intervention. We discussed surgeries involving a simple percutaneous bone biopsy versus performing a fifth metatarsal head resection versus performing a fifth ray r esection. The benefits and risks of each procedure were discussed in detail. He elects to proceed forward with the fifth metatarsal head resection at this time he will be scheduled. The goal is to address the infection nidus as well as remove part of the deforming force of the ulcer. He understands improve compliance is necessary and he is at risk for delayed or nonhealing due to his small vessel disease and uncontrolled diabetes. His last hemoglobin A1c was noted at 12. The indication, etiology, planned procedure, possible benefits, risk, complication, anticipated healing time and management were discussed in detail with the patient today. No guarantees were made. He understands that this potential risk and comp occasions include but are not limited to the following: Pain, swelling, scarring, recurrent ulceration or transfer ulcers, digital deformities, chronic pain, blood clot, allergic reaction, loss of limb, function, or life, need for further surgery. I answered his questions. Surgical consents will need to be obtained. Medical clearance will be obtained by the primary care physician prior to proceeding forward for this likely same- day surgery procedure with MAC and local anesthesia. Surgical nurse coordinator, Leon, will contact him to proceed forward with scheduling. . Vascular surgery intervention is noted in greatly appreciated. He had an abdominal pelvic right lower extremity arteriogram with angioplasty of the right proximal anterior tibial artery and right tibial peroneal trunk that was successful. To follow-up with Dr. Tuttle as scheduled. To continue with nutritional supplementation proper glycemic control to optimize healing. Compliance was discussed. It is noted that he is at risk for limb loss due to his condition including his multiple comorbidities. Updated lab work was ordered including CBC, CMP, ESR, and C-reactive protein. We also reviewed the benefits of hyperbaric oxygen therapy. It appears he is a an appropriate candid ate at this time. The benefits, risk, anticipated application, daily requirements, and anticipated management were discussed in detail. He would like to think about this over the following week. It is noted his ejection fraction was 60%. He denies having claustrophobia. We will review this topic again next week and if he is ready to proceed forward I will order of the appropriate screening diagnostic data including chest x-ray, EKG, and hyperbaric oxygen therapy clearance consultation. He walks the informative video today as well. It is noted this patient was referred back to the wound healing center for an updated second opinion. I reviewed the case in detail verbally over the phone with Dr. Koo. The referral is greatly appreciated. I answered all his questions. The patient was advised to return to the wound healing center in 1 week or call sooner if he is any questions or concerns.
== END 2019-06-01 23:59 ==
LOC: WC 15:15
PROVIDERS: Family Provider Internal Medicine; PCP Internal Medicine; Visit Provider Podiatrist
DX: E11.621 Type 2 diabetes mellitus with foot ulcer (principal); E11.42 Type 2 diabetes mellitus with diabetic polyneuropathy; M21.621 Bunionette of right foot; L97.512 Non-pressure chronic ulcer of other part of right foot with fat layer exposed; E11.51 Type 2 diabetes mellitus with diabetic peripheral angiopathy without gangrene; G47.30 Sleep apnea, unspecified; E66.9 Obesity, unspecified; E11.22 Type 2 diabetes mellitus with diabetic chronic kidney disease; N18.9 Chronic kidney disease, unspecified; R26.9 Unspecified abnormalities of gait and mobility; Z91.19 Patient's noncompliance with other medical treatment and regimen; Z99.2 Dependence on renal dialysis; E11.65 Type 2 diabetes mellitus with hyperglycemia
CPT/HCPCS: 11042; 99213; G0463

== ENCOUNTER 2019-06-04 14:41 | Emergency (ER) | payer MEDICARE, SELFPAY ==
[2019-06-04 14:43] VITALS: BP 174/65; PULSE 71; RESP 16; RESP 18; TEMP 37.2; O2SAT 96; BMI 43.4
[2019-06-04 14:49] VITALS: O2SAT 90
[2019-06-04 14:51] VITALS: O2SAT 99
--- NOTE | 2019-06-04 15:12 | EKG12_ITS ---
Test Reason : CP Blood Pressure : / mmHG Vent. Rate : 067 BPM Atrial Rate : 067 BPM P-R Int : 150 ms QRS Dur : 088 ms QT Int : 446 ms P-R-T Axes : 045 023 005 degrees QTc Int : 471 ms Normal sinus rhythm Normal ECG Confirmed by COMPA ALCALA [id number]), scientific editor DEREK KEARNS ([id number] on 06/09/2019 9:23:17 AM Referred By: LEIF Confirmed By:COMPA ALCALA
[2019-06-04 15:18] VITALS: O2SAT 99
[2019-06-04 15:18] LABS: Absolute Lymphocyte Count 0.73 X10^3/uL (0.83-4.51); Absolute Neutrophil Count 8.7 X10^3/uL (2.0-7.7); Basophil# 0.06 X10^3/uL; Basophil% 0.6 % (0-1); Eosinophil# 0.37 X10^3/uL; Eosinophils% 3.4 % (0-5); Hematocrit 28.6 % (40-54); Hemoglobin 8.8 g/dL (13.0-16.5); Lymphocyte # 0.73 X10^3/ul (4.0); Lymphocyte % 6.8 % (19-41); Mean Corp Hgb Conc 30.8 g/dL (32-36); Mean Corpuscular Volume 94.4 fL (80-94); Mean Platelet Vol. 9.9 fl (6.2-12.0); Monocyte# 0.83 X10^3/uL; Monocyte% 7.7 % (0-10); NRBC Flagged by Analyzer 0 % (0-5); Neutrophil # 8.69 X10^3/uL (2.7-7.7); Neutrophil % 80.5 % (47-70); Platelet Count 301 K/mm3 (150-450); RBC Distribution Width CV 16.7 % (11.6-14.6); RBC Distribution Width SD 56.1 fl (35.1-43.9); Red Blood Count 3.03 M/mm3 (4.6-6.2); White Blood Count 10.8 K/mm3 (4.4-11.0)
--- NOTE | 2019-06-04 15:21 | ED.VIS.CHEST ---
History of Present Illness Chief Complaint: Chest Pain Informant: Patient, EMS Narrative: Patient presenting for evaluation secondary to chest pain. Patient has a underlying history of end-stage renal disease diabetes hypertension. Patient states that over the course the last couple of days he has had continuous chest pain. He reports that this will radiate down his left arm. Patient states that it is been associated with feelings of lightheadedness and near syncope. He does endorse that he has shortness of breath with it. No exacerbating relieving factors associated with the chest pain. Patient denies any history of MS. He had a dialysis run today that went normally. Patient states that on his recent admission to the hospital in March when he had a toe amputated he had a stress test that was found to be normal. Past Medical History - Allergies and Home Meds Allergies/Adverse Reactions: Allergies venom-honey bee [bee venom (honey bee)] Allergy (Verified 05/14/19 14:50) Swelling sulfamethoxazole [From Bactrim] Adverse Reaction (Verified 05/14/19 14:50) Upset Stomach trimethoprim [From Bactrim] Adverse Reaction (Verified 05/14/19 14:50) Upset Stomach Primary Care Physician: Augie Washburn MD [Primary Care Provider] - Past Medical History: - - Congestive heart failure, hypertension, hyperlipidemia, diabetes, chronic kidney disease on dialysis. Surgical History: tonsillectomy, - - AV fistula in right arm. Vascular surgery intervention right lower extremity Smoking Status: Never smoker - Family History Maternal Family History: Family History (Last Reviewed 01/15/19 @ 01:57 by Eze Rivera MD) Mother Hypertension Heart disease Diabetes Father Hypertension Heart disease Brother Heart disease Family History: Reports: Diabetes, Heart Disease, Hypertension, Renal Disease Paternal Family History: Family History (Last Reviewed 01/15/19 @ 01:57 by Eze Rivera MD) Mother Hypertension Heart disease Diabetes Father Hypertension Heart disease Brother Heart disease Family History: Reports: Cancer - liver, Diabetes, Heart Disease Review of Systems All systems negative except as indicated General: Reports: Malaise Eyes: Denies: Visual changes - bilaterally, Diplopia ENT: Denies: Rhinorrhea, Sore throat Cardiovascular: Reports: Chest pain, - - Lightheadedness Respiratory: Reports: Dyspnea Gastrointestinal: Denies: Abdominal pain, Nausea, Vomiting, Diarrhea, Melena, Hematochezia Genitourinary: Denies: Dysuria, Hematuria, Frequency Musculoskeletal: Denies: Back pain, Extremity Pain Skin: Denies: Rash, Wounds Neurological: Denies: Headache, Weakness, Numbness Psych: Denies: Depression Endocrine: Denies: Polyuria, Polydipsia Hematologic: Denies: Easy bruising, Easy bleeding Allergy: Denies: Swelling of the mouth Physical Exam Vital Signs/Narrative: Vital Signs Temp Pulse Resp BP Pulse Ox 06/04/19 15:18 99 06/04/19 14:51 99 06/04/19 14:49 90 06/04/19 14:43 98.9 F 71 18 174/65 H 96 Inital Vital Signs reviewed: Yes General: Well nourished, Well developed, No Acute Distress Head: Normocephalic, Atraumatic Eyes: Perrl, EOMI ENT: Moist mucous membranes, No rhinorrhea Neck: Supple, Nontender Cardiovascular: Regular rate, Regular rhythm, No murmurs, - - 2+ radial pulses bilaterally symmetric. Right arm fistula with palpable thrill Respiratory: No distress, CTA bilaterally, Chest nontender Abdomen: Soft, Nontender, Nondistended, Normal bowel sounds Back: Nontender, Normal Inspection Extremities: Nontender, Edema - 2+ bilaterally symmetric lower extremity edema Skin: Normal color, No rash Neurological: Alert, Oriented x3, Cranial nerves II-XII grossly intact, Normal Strength, Normal Sensation Psychological: Normal affect, Normal Mood Diagnostic/Tx/Re-eval - EKG Initial EKG Interpretation: - - Sinus rhythm at [address] segments normal T waves no evidence of acute ischemia or arrhythmia - Medical Decision Making Patient presented for evaluation secondary to chest pain. An EKG was found to be within normal limits no evidence of acute ischemia. CBC demonstrates the patient to have anemia that is chronic and unchanged. Chemistry shows chronic kidney disease with elevated BUN and creatinine but no significant electrolyte dyscrasias. Patient's troponin was found to be negative. Chest x-ray shows some pulmonary vascular congestion. Patient's records were reviewed, he had a stress test just this March which showed a retained ejection fraction with no evidence of perfusion abnormalities. Patient at this point likely has an element of some diastolic heart failure. He does still make urine and is on Lasix. Patient will be given a dose of Lasix in the emergency department will be recommended to increase his dose at home and follow-up with primary care in the next 2 to 3 days. ED Disposition - Plan for ED Patient: Disposition: Home or Assisted Living Diagnosis: Chest pain, CHF (congestive heart failure) Instructions: CHEST PAIN, Uncertain Cause, CHF, General Referrals: Augie Washburn MD [Primary Care Provider] - 2 Days Additional Instructions: Double your dose of Lasix for the next 3 days and follow-up with your primary care physician.
--- NOTE | 2019-06-04 15:22 | RAD_ITS ---
STUDY: X-RAY CHEST REASON FOR EXAM: Male, 48 years old. Shortness of breath, chest pain and weakness. TECHNIQUE: AP and lateral views of the chest. COMPARISON: Comparison is made with prior study dated March 16, 2019. FINDINGS: EKG electrodes are seen. Mild degree of vascular congestion. There is no demonstrated pleural abnormality. There is moderate cardiac enlargement. Normal mediastinum and esmer. Normal visualized pulmonary arteries. Normal visualized aortic arch and descending thoracic aorta. Normal visualized thoracic spine. Normal visualized ribs, clavicles, and shoulders. There is no demonstrated abnormality of the visualized soft tissue structures of the upper abdomen. RAD/Chest PA and Lateral IMPRESSION: Mild degree of vascular congestion. Cardiomegaly. Electronically Signed: Johnnie Aranda, at 15:59 EST , Service support ,
[2019-06-04 15:36] LABS: Anion Gap 8 (5-15); BUN 37 mg/dL (7-18); BUN/Creat Ratio 9.8 RATIO (10-20); Calcium,Total 8.5 mg/dL (8.5-10.1); Chloride 95 mmol/L (98-107); Creatinine, Serum 3.79 mg/dL (0.70-1.30); EST Glomerular Filtration Rate 18 mL/min (>60); Est Glom Filt Rate - Afr Amer 22 mL/min (>60); Glucose 128 mg/dL (74-106); Potassium 3.6 mmol/L (3.5-5.1); Sodium Level 133 mmol/L (136-145)
[2019-06-04 15:43] VITALS: BP 157/90; PULSE 65; RESP 15; O2SAT 95
[2019-06-04] MEDS: Furosemide 40 MG/4 ML Vial IV (16:50)
[2019-06-04 16:52] VITALS: BP 154/58; PULSE 65; RESP 12; O2SAT 97
== END 2019-06-04 17:46 | disposition home or self-care (01) ==
PROVIDERS: Emergency Provider Emergency Medicine; Family Provider Internal Medicine; PCP Internal Medicine
DX: R07.9 Chest pain, unspecified (principal); I13.2 Hypertensive heart and chronic kidney disease with heart failure and with stage 5 chronic kidney disease, or end stage renal disease; I50.9 Heart failure, unspecified; E11.22 Type 2 diabetes mellitus with diabetic chronic kidney disease; N18.6 End stage renal disease; D63.1 Anemia in chronic kidney disease; E78.5 Hyperlipidemia, unspecified; Z99.2 Dependence on renal dialysis; Z79.82 Long term (current) use of aspirin; Z79.4 Long term (current) use of insulin; Z79.899 Other long term (current) drug therapy
CPT/HCPCS: 71046; 80048; 84484; 85025; 93005; 96374; 99285; A4216; J1940

== ENCOUNTER 2019-06-19 13:30 | Outpatient (RCR) | payer MEDICARE, SELFPAY ==
[2019-06-02 00:58] VITALS: BP 157/78; PULSE 69; RESP 16; TEMP 36.4
[2019-06-05 15:35] VITALS: BP 142/69; PULSE 63; RESP 16; TEMP 37.3; BMI 43.4
--- NOTE | 2019-06-05 17:18 | PN.PCM_ITS ---
(1) Ulcer of right foot with fat layer exposed Status: Chronic Code(s): L97.512 - Non-pressure chronic ulcer of other part of right foot with fat layer exposed (2) Chronic ulcer of left foot with fat layer exposed Status: Chronic Code(s): L97.522 - Non-pressure chronic ulcer of other part of left foot with fat layer exposed (3) Localized edema Status: Chronic Code(s): R60.0 - Localized edema (4) Malnutrition Status: Chronic Code(s): E46 - Unspecified protein-calorie malnutrition (5) Type 2 diabetes mellitus with diabetic polyneuropathy Status: Chronic Code(s): E11.42 - Type 2 diabetes mellitus with diabetic polyneuropathy (6) Osteomyelitis Status: Chronic Code(s): M86.9 - Osteomyelitis, unspecified (7) Tailor's bunion of left foot Status: Chronic Code(s): M21.622 - Bunionette of left foot (8) Peripheral vascular disease Status: Chronic Code(s): I73.9 - Peripheral vascular disease, unspecified Type of Wound Date of Service: 06/05/19 Chief Complaint: Right foot ulcer. Left foot ulcer. right foot post operative fifth ray resection History of Wound: This 48-year-old male with diabetes, peripheral vascular disease (calcified vessels), chronic kidney disease, sleep apnea, obesity and other comorbidities had chronic bilateral foot ulcers with osteomyelitis of the right fifth metatarsal head. He underwent right fifth ray resection on May 16, 2019 at [facility] to address this condition. He was subsequently treated with IV and oral antibiotics under the management of infectious disease and continues on a course of vancomycin and cefepime intravenously on hemodialysis days and oral Flagyl as well. The stop date of antibiotics is 06/27/2019. He denies fever, chill, nausea, vomiting. It is also noted he had prior vascular intervention with Dr. Tuttle earlier this year. Progress of Wound: Improving - Physical Exam Vital Signs Temp Pulse Resp BP 99.1 F 63 16 142/69 H 06/05/19 15:35 06/05/19 15:35 06/05/19 15:35 06/05/19 15:35 General: Alert, Oriented x3, Cooperative, No apparent distress Extremities: No cyanosis, Capillary Refill Less than 3 Seconds, No Calf Tenderness, Diminished Peripheral Pulses, Edema Skin: Ulcer/ Wound - No purulence, erythema, streaking, odor, infection. The peripheral skin is atrophic and hairless. He has dorsal lateral incision intact that is well aligned and coapted without gapping, necrosis, or maceration. There is a plantar ulcer remaining that has a granular base and has reduced in size on the right foot. The plantar sub-fifth metatarsal head ulcer on the left foot has also progressively decreased in size and has a granular healthy base. Wound Measurements and Assessment WC - Nurse 1 - General Ulcer Measurement Start: 06/05/19 15:34 Freq: Status: Active Protocol: Activity Type Activity Date Activity User E-Sign Co-Sign Detail Recorded Client Recorded Date Recorded By Document 06/05/19 15:35 [facility] [id number] 06/05/19 15:52 [facility] 06/05/19 15:35 Wound Center Nurse 1 [Ulcer Assessment] #4- R LAT PLANTAR -Combined with other wound No -Current Size (cm) - Length 0.1 -Current Size (cm) - Width 0.1 -Current Size (cm) - Depth 0.1 -Total Square Cm 0.01 -Date of Last Picture (Recall this 06/05/19 field) -Photo Taken Yes -Epithelialization Large 67-100% -Tunneling No -Undermining/Tunneling No -Circular Undermining No -Exudate Amt None Present -Temperature (Amanda-wound Skin No Abnormality Appearance) (Pt Warm) -Tenderness on Palpation (Amanda-wound No Skin Appearance) -Ulcer Cleansing soapy water -Foul Odor after Cleansing No #3- L PLANTAR -Combined with other wound No -Current Size (cm) - Length 1.5 -Current Size (cm) - Width 0.9 -Current Size (cm) - Depth 0.2 -Total Square Cm 1.35 -Date of Last Picture (Recall this 06/05/19 field) -Photo Taken Yes -Epithelialization Small 1-33% -Tunneling No -Undermining/Tunneling No -Circular Undermining No -Exudate Amt Small -Exudate Type Serosanguineous -Wound Margin Distinct, Outline Attached -Granulation Amt Large (67-100%) -Granulation Quality Red -Slough/Fibrin Yes -Necrosis Amt Small (1-33%) -Necrotic Tissue Type Adherent Slough -Texture (Amanda-wound Skin Appearance) Assessed,Callus ,Scarring -Moisture (Amanda-wound Skin Appearance Assessed,Dry/ ) Scaly -Color (Amanda-wound Skin Appearance) Assessed -Temperature (Amanda-wound Skin No Abnormality Appearance) (Pt Warm) -Tenderness on Palpation (Amanda-wound No Skin Appearance) -Ulcer Cleansing soapy water -Foul Odor after Cleansing No -Anesthetic Used 5% Lidocaine Gel WC - Nurse 2 - General Ulcer CM Notes Start: 06/05/19 15:34 Freq: Status: Active Protocol: Activity Type Activity Date Activity User E-Sign Co-Sign Detail Recorded Client Recorded Date Recorded By Document 06/05/19 16:07 MICHAEL [id number] 06/05/19 16:09 MICHAEL 06/05/19 16:07 Wound Center Nurse 2 [Procedure/Treatment] #4- R LAT PLANTAR -Time 16:07 -Correct Patient Yes -Correct Side, Site, Position Yes -Correct Procedure Yes -Procedure Performed Yes -Type of Procedure Debridement -Clinical Debridement Subcutaneous -Post Debridement Size (cm) - Length 2.0 -Post Debridement Size (cm) - Width 1.0 -Post Debridement Size (cm) - Depth 0.2 -Total Square Cm 2.00 -Wound/Ulcer Outcome Not Healed -Ulcer Cleansing Rinsed/ Irrigated with Saline -Foul Odor after Cleansing No -Bioengineered Tissue No -Bleeding Controlled with Pressure -Offloading Yes -Type of Offloading Surgical Shoe -Treatment Response Procedure Tolerated Well #3- L PLANTAR -Time 16:08 -Correct Patient Yes -Correct Side, Site, Position Yes -Correct Procedure Yes -Procedure Performed Yes -Type of Procedure Debridement -Clinical Debridement Subcutaneous -Post Debridement Size (cm) - Length 1.5 -Post Debridement Size (cm) - Width 1 -Post Debridement Size (cm) - Depth 0.2 -Total Square Cm 1.5 -Wound/Ulcer Outcome Not Healed -Ulcer Cleansing Rinsed/ Irrigated with Saline -Foul Odor after Cleansing No -Bioengineered Tissue No -Bleeding Controlled with Pressure -Offloading Yes -Type of Offloading Surgical Shoe -Treatment Response Procedure Tolerated Well [See Physician Procedure note for Specifics] Pain Scale: 0-10 Numeric [Pain] -Is Patient Pain Free? Yes Musculoskeletal: No Tenderness to Palpation of Joints or Extremities, Muscle Wasting, - - Tailor bunion deformity and dorsal contraction of fifth toe left. Stable right fifth ray resection noted with adjacent lesser toe contraction Neurological: - - Lack of normal epicritic sensation light touch is consistent with neuropathy status Psych/Mental Status: Normal Affect, Appropriate Debridement Note Post-Debridement Measurements/Treatment WC - Nurse 2 - General Ulcer CM Notes Start: 06/05/19 15:34 Freq: Status: Active Protocol: Activity Type Activity Date Activity User E-Sign Co-Sign Detail Recorded Client Recorded Date Recorded By Document 06/05/19 16:07 MICHAEL [id number] 06/05/19 16:09 MICHAEL 06/05/19 16:07 Wound Center Nurse 2 #4- R LAT PLANTAR -Time 16:07 -Correct Patient Yes -Correct Side, Site, Position Yes -Correct Procedure Yes -Procedure Performed Yes -Type of Procedure Debridement -Clinical Debridement Subcutaneous -Post Debridement Size (cm) - Length 2.0 -Post Debridement Size (cm) - Width 1.0 -Post Debridement Size (cm) - Depth 0.2 -Total Square Cm 2.00 -Wound/Ulcer Outcome Not Healed -Ulcer Cleansing Rinsed/ Irrigated with Saline -Foul Odor after Cleansing No -Bioengineered Tissue No -Bleeding Controlled with Pressure -Offloading Yes -Type of Offloading Surgical Shoe -Treatment Response Procedure Tolerated Well #3- L PLANTAR -Time 16:08 -Correct Patient Yes -Correct Side, Site, Position Yes -Correct Procedure Yes -Procedure Performed Yes -Type of Procedure Debridement -Clinical Debridement Subcutaneous -Post Debridement Size (cm) - Length 1.5 -Post Debridement Size (cm) - Width 1 -Post Debridement Size (cm) - Depth 0.2 -Total Square Cm 1.5 -Wound/Ulcer Outcome Not Healed -Ulcer Cleansing Rinsed/ Irrigated with Saline -Foul Odor after Cleansing No -Bioengineered Tissue No -Bleeding Controlled with Pressure -Offloading Yes -Type of Offloading Surgical Shoe -Treatment Response Procedure Tolerated Well Pain Scale: 0-10 Numeric Is Patient Pain Free? Yes Wound debrided: sub 5th metatarsal head Laterality: Left Wound Grade/Stage: grade 1 Type of Debridement: Excisional debridement Anesthesia Used: 5% Lidocaine Gel Depth: in the subcutaneous layer Percentage of wound debrided: 100 Instrument Used: #15 blade Tissue Removed: fibrous, devitalized subcutaneous, biofilm, slough Severity: Fat Layer Exposed Amount of bleeding with debridement: Mild Bleeding Controlled with: Pressure Patient tolerated procedure well - Additional Wound Wound debrided: plantar lateral foot Laterality: Right Wound Grade/Stage: grade 1 Type of Debridement: Excisional debridement Anesthesia Used: 5% Lidocaine Gel Depth: in the subcutaneous layer Percentage of wound debrided: 100 Instrument Used: #15 blade Tissue Removed: fibrous, devitalized subcutaneous, biofilm, slough Severity: Fat Layer Exposed Amount of bleeding with debridement: Mild Bleeding Controlled with: Pressure Patient tolerated procedure: Patient tolerated procedure well Assessment/Plan Assessment: Diabetes with neuropathy (hemoglobin A1c 12%). Status post right fifth ray resection for treatment of osteomyelitis and chronic ulcer, healing well without local signs of infection. Left sub-fifth metatarsal head ulcer, grade 1 and no infection. Foot deformities including hammertoes, tailor bunion, and hallux limitus bilateral. Peripheral vascular disease now status post vascular surgery intervention. Other comorbidities including noncompliance, renal disease on dialysis, cardiac history. Malnutrition suspected. Gait instability Plan: I reviewed and discussed his case. Subcutaneous excisional debridement was performed to the right and left foot as noted in the clinical panel. To change dressing daily with [employer] as he has been performing is ready. To continue with offloading surgical shoes and heel weight-bear. To use assistive device as needed. His surgical site is stable and was also covered with a dry gauze. His clearance fragment was sent to pathology did not demonstrate residual osteomyelitis. His clearance fragment of the right fifth metatarsal was sent to microbiology did demonstrate Enterococcus faecalis growth. His wound culture prior to surgery demonstrated mixed organisms including enterococcus, bacillus, corynebacterium, and anaerobes. He is on antibiotics until 06/27/2019 per infectious disease guideline. He is reassured his clinical signs of infection have resolved and his site is stabilizing. . Vascular surgery intervention is noted in greatly appreciated. He had an abdominal pelvic right lower extremity arteriogram with angioplasty of the right proximal anterior tibial artery and right tibial peroneal trunk that was successful. To follow-up with Dr. Tuttle as scheduled. To continue with nutritional supplementation proper glycemic control to optimize healing. Compliance was dis cussed. It is noted that he is at risk for limb loss due to his condition including his multiple comorbidities. His lab trends will be followed. I answered all his questions. The patient was advised to return to the wound healing center in 1 week or call sooner if he is any questions or concerns.
[2019-06-12 14:53] VITALS: BP 155/76; PULSE 64; RESP 16; TEMP 37.7; BMI 43.4
--- NOTE | 2019-06-12 15:50 | PCM.WC.PN ---
(1) Ulcer of right foot with fat layer exposed Status: Chronic Current Visit: Yes Code(s): L97.512 - Non-pressure chronic ulcer of other part of right foot with fat layer exposed (2) Chronic ulcer of left foot with fat layer exposed Status: Chronic Current Visit: Yes Code(s): L97.522 - Non-pressure chronic ulcer of other part of left foot with fat layer exposed (3) Localized edema Status: Chronic Current Visit: Yes Code(s): R60.0 - Localized edema (4) Malnutrition Status: Chronic Current Visit: Yes Code(s): E46 - Unspecified protein-calorie malnutrition (5) Type 2 diabetes mellitus with diabetic polyneuropathy Status: Chronic Current Visit: Yes Code(s): E11.42 - Type 2 diabetes mellitus with diabetic polyneuropathy (6) Osteomyelitis Status: Resolved Current Visit: Yes Code(s): M86.9 - Osteomyelitis, unspecified (7) Tailor's bunion of left foot Status: Chronic Current Visit: Yes Code(s): M21.622 - Bunionette of left foot (8) Peripheral vascular disease Status: Chronic Current Visit: Yes Code(s): I73.9 - Peripheral vascular disease, unspecified Type of Wound Date of Service: 06/15/19 Chief Complaint: Right foot ulcer. Left foot ulcer. right foot post operative fifth ray resection History of Wound: This 48-year-old male with diabetes, peripheral vascular disease (calcified vessels), chronic kidney disease, sleep apnea, obesity and other comorbidities had chronic bilateral foot ulcers with osteomyelitis of the right fifth metatarsal head. He underwent right fifth ray resection on May 16, 2019 at [facility] to address this condition. He was subsequently treated with IV and oral antibiotics under the management of infectious disease and continues on a course of vancomycin and cefepime intravenously on hemodialysis days and oral Flagyl as well. The stop date of antibiotics is 06/27/2019. He denies fever, chill, nausea, vomiting. It is also noted he had prior vascular intervention with Dr. Tuttle earlier this year. Progress of Wound: Improving - Physical Exam Vital Signs Temp Pulse Resp BP 99.8 F H 64 16 155/76 H 06/12/19 14:53 06/12/19 14:53 06/12/19 14:53 06/12/19 14:53 General: Alert, Oriented x3, Cooperative, No apparent distress Extremities: No cyanosis, Capillary Refill Less than 3 Seconds, No Calf Tenderness - Negative Radha and Adan signs bilateral, Diminished Peripheral Pulses, Edema - Mild bilateral lower extremities, - - Right fifth ray resection. Dorsal contraction of lesser toes bilateral Skin: Ulcer/ Wound - Incision line is moist. Upon suture removal there is slight central gapping that is communicating with the plantar ulcer. Approximately part of this cluster site was debrided and it is a healthy granulation tissue. The plantar left second metatarsal head ulcer is granular and healthy in appearance. There is no purulence, erythema, streaking, odor, infection bilateral. In general the skin is hairless and atrophic to lower extremities Wound Measurements and Assessment WC - Nurse 1 - General Ulcer Measurement Start: 06/05/19 15:34 Freq: Status: Active Protocol: Activity Type Activity Date Activity User E-Sign Co-Sign Detail Recorded Client Recorded Date Recorded By Document 06/12/19 14:53 [facility] [id number] 06/12/19 15:00 [facility] 06/12/19 14:53 Wound Center Nurse 1 [Ulcer Assessment] #4- R LAT PLANTAR -Combined with other wound No -Current Size (cm) - Length 0.1 -Current Size (cm) - Width 0.1 -Current Size (cm) - Depth 0.1 -Total Square Cm 0.01 -Photo Taken No -Tunneling No -Undermining/Tunneling No -Circular Undermining No -Exudate Amt Small -Exudate Type Serosanguineous -Texture (Amanda-wound Skin Appearance) Assessed -Moisture (Amanda-wound Skin Appearance Assessed,Dry/ ) Scaly -Color (Amanda-wound Skin Appearance) Assessed -Temperature (Amanda-wound Skin No Abnormality Appearance) (Pt Warm) -Tenderness on Palpation (Amanda-wound No Skin Appearance) -Ulcer Cleansing Rinsed/ Irrigated with Saline -Foul Odor after Cleansing No -Anesthetic Used 4% Lidocaine Solution #3- L PLANTAR -Combined with other wound No -Current Size (cm) - Length 0.7 -Current Size (cm) - Width 0.1 -Current Size (cm) - Depth 0.2 -Total Square Cm 0.07 -Photo Taken No -Epithelialization Small 1-33% -Tunneling No -Undermining/Tunneling No -Circular Undermining No -Exudate Amt Small -Exudate Type Serosanguineous -Wound Margin Distinct, Outline Attached -Granulation Amt Small (1-33%) -Granulation Quality Pale,Red -Slough/Fibrin Yes -Necrosis Amt Medium (34-66%) -Necrotic Tissue Type Adherent Slough -Texture (Amanda-wound Skin Appearance) Assessed,Callus ,Scarring -Moisture (Amanda-wound Skin Appearance Assessed,Dry/ ) Scaly -Color (Amanda-wound Skin Appearance) Assessed -Temperature (Amanda-wound Skin No Abnormality Appearance) (Pt Warm) -Tenderness on Palpation (Amanda-wound No Skin Appearance) -Ulcer Cleansing Rinsed/ Irrigated with Saline -Foul Odor after Cleansing No -Anesthetic Used 4% Lidocaine Solution WC - Nurse 2 - General Ulcer CM Notes Start: 06/05/19 15:34 Freq: Status: Active Protocol: Activity Type Activity Date Activity User E-Sign Co-Sign Detail Recorded Client Recorded Date Recorded By Document 06/12/19 15:13 MICHAEL [id number] 06/12/19 15:19 MICHAEL 06/12/19 15:13 Wound Center Nurse 2 [Procedure/Treatment] #4- R LAT PLANTAR -Time 15:18 -Correct Patient Yes -Correct Side, Site, Position Yes -Correct Procedure Yes -Procedure Performed Yes -Type of Procedure Debridement -Clinical Debridement Subcutaneous -Post Debridement Size (cm) - Length 3.0 -Post Debridement Size (cm) - Width 2.0 -Post Debridement Size (cm) - Depth 0.3 -Total Square Cm 6.00 -Wound/Ulcer Outcome Not Healed -Ulcer Cleansing Rinsed/ Irrigated with Saline -Foul Odor after Cleansing No -Bioengineered Tissue No -Bleeding Controlled with Pressure -Offloading Yes -Type of Offloading Surgical Shoe -Treatment Response Procedure Tolerated Well #3- L PLANTAR -Time 15:13 -Correct Patient Yes -Correct Side, Site, Position Yes -Correct Procedure Yes -Procedure Performed Yes -Type of Procedure Debridement -Clinical Debridement Subcutaneous -Post Debridement Size (cm) - Length 0.8 -Post Debridement Size (cm) - Width 0.2 -Post Debridement Size (cm) - Depth 0.2 -Total Square Cm 0.16 -Wound/Ulcer Outcome Not Healed -Ulcer Cleansing Rinsed/ Irrigated with Saline -Foul Odor after Cleansing No -Bioengineered Tissue No -Bleeding Controlled with Pressure -Offloading Yes -Type of Offloading Surgical Shoe -Treatment Response Procedure Tolerated Well [See Physician Procedure note for Specifics] Pain Scale: 0-10 Numeric [Pain] -Is Patient Pain Free? Yes Musculoskeletal: No Tenderness to Palpation of Joints or Extremities, Muscle Wasting Neurological: - - Lack of normal epicritic sensation light touch consistent with neuropathy status Psych/Mental Status: Normal Affect, Appropriate Debridement Note Post-Debridement Measurements/Treatment WC - Nurse 2 - General Ulcer CM Notes Start: 06/05/19 15:34 Freq: Status: Active Protocol: Activity Type Activity Date Activity User E-Sign Co-Sign Detail Recorded Client Recorded Date Recorded By Document 06/05/19 16:07 [id number] 06/05/19 16:09 Document 06/12/19 15:13 [id number] 06/12/19 15:19 06/05/19 06/12/19 16:07 15:13 Wound Center Nurse 2 #4- R LAT PLANTAR -Time 16:07 15:18 -Correct Patient Yes Yes -Correct Side, Site, Position Yes Yes -Correct Procedure Yes Yes -Procedure Performed Yes Yes -Type of Procedure Debridement Debridement -Clinical Debridement Subcutaneous Subcutaneous -Post Debridement Size (cm) - Length 2.0 3.0 -Post Debridement Size (cm) - Width 1.0 2.0 -Post Debridement Size (cm) - Depth 0.2 0.3 -Total Square Cm 2.00 6.00 -Wound/Ulcer Outcome Not Healed Not Healed -Ulcer Cleansing Rinsed/ Rinsed/ Irrigated with Irrigated with Saline Saline -Foul Odor after Cleansing No No -Bioengineered Tissue No No -Bleeding Controlled with Pressure Pressure -Offloading Yes Yes -Type of Offloading Surgical Shoe Surgical Shoe -Treatment Response Procedure Procedure Tolerated Well Tolerated Well #3- L PLANTAR -Time 16:08 15:13 -Correct Patient Yes Yes -Correct Side, Site, Position Yes Yes -Correct Procedure Yes Yes -Procedure Performed Yes Yes -Type of Procedure Debridement Debridement -Clinical Debridement Subcutaneous Subcutaneous -Post Debridement Size (cm) - Length 1.5 0.8 -Post Debridement Size (cm) - Width 1 0.2 -Post Debridement Size (cm) - Depth 0.2 0.2 -Total Square Cm 1.5 0.16 -Wound/Ulcer Outcome Not Healed Not Healed -Ulcer Cleansing Rinsed/ Rinsed/ Irrigated with Irrigated with Saline Saline -Foul Odor after Cleansing No No -Bioengineered Tissue No No -Bleeding Controlled with Pressure Pressure -Offloading Yes Yes -Type of Offloading Surgical Shoe Surgical Shoe -Treatment Response Procedure Procedure Tolerated Well Tolerated Well Pain Scale: 0-10 Numeric Is Patient Pain Free? Yes Yes Wound debrided: plantar lateral foot (plantar initial extends to surgical site and include) Laterality: Right Wound Grade/Stage: grade 1 Type of Debridement: Excisional debridement Anesthesia Used: 5% Lidocaine Gel Depth: in the subcutaneous layer Percentage of wound debrided: 20 Instrument Used: #15 blade, Forceps Tissue Removed: fibrous, devitalized subcutaneous, biofilm, slough Severity: Fat Layer Exposed Amount of bleeding with debridement: Mild Bleeding Controlled with: Pressure Patient tolerated procedure well - Additional Wound Wound debrided: sub 5th metatarsal head Laterality: Left Wound Grade/Stage: grade 1 Type of Debridement: Excisional debridement Anesthesia Used: 5% Lidocaine Gel Depth: in the subcutaneous layer Percentage of wound debrided: 100 Instrument Used: #15 blade Tissue Removed: fibrous, devitalized subcutaneous, biofilm, slough Severity: Fat Layer Exposed Amount of bleeding with debridement: Mild Bleeding Controlled with: Pressure Patient tolerated procedure: Patient tolerated procedure well Assessment/Plan Active Problems (Last Updated 03/12/19 @ 17:43 by Kayla Tamayo MD) Chronic ulcer of left foot with fat layer exposed (Chronic) Ulcer of right foot with fat layer exposed (Chronic) Localized edema (Chronic) Malnutrition (Chronic) Type 2 diabetes mellitus with diabetic polyneuropathy (Chronic) Tailor's bunion of left foot (Chronic) Peripheral vascular disease (Chronic) Assessment: Diabetes with neuropathy (hemoglobin A1c 12%). Status post right fifth ray resection for treatment of osteomyelitis and chronic ulcer, healing well without local signs of infection. Left sub-fifth metatarsal head ulcer, grade 1 and no infection. Foot deformities including hammertoes, tailor bunion, and hallux limitus bilateral. Peripheral vascular disease now status post vascular surgery intervention. Other comorbidities including noncompliance, renal disease on dialysis, cardiac history. Malnutrition suspected. Gait instability Plan: I reviewed and discussed his case. Subcutaneous excisional debridement was performed to the right and left foot as noted in the clinical panel. Sutures were removed from the right foot today as noted and Steri-Strips were applied. To change dressing daily with [employer] as he has been performing is ready. To continue with offloading surgical shoes and heel weight-bear. To use assistive device as needed. His surgical site is stable and was also covered with a dry gauze. His clearance fragment was sent to pathology did not demonstrate residual osteomyelitis. His clearance fragment of the right fifth metatarsal was sent to microbiology did demonstrate Enterococcus faecalis growth. His wound culture prior to surgery demonstrated mixed organisms including enterococcus, bacillus, corynebacterium, and anaerobes. He is on antibiotics until 06/27/2019 per infectious disease guideline. He is reassured his clinical signs of infection have resolved and his site is stabilizing. . Vascular surgery intervention is noted in greatly appreciated. He had an abdominal pelvic right lower extremity arteriogram with angioplasty of the right proximal anterior tibial artery and right tibial peroneal trunk that was successful. To follow-up with Dr. Tuttle as scheduled. To continue with nutritional supplementation proper glycemic control to optimize healing. Compliance was discussed. It is noted that he is at risk for limb loss due to his condition including his multiple comorbidities. His lab trends will be followed. I answered all his questions. The patient was advised to return to the wound healing center in 1 week or call sooner if he is any questions or concerns.
[2019-06-19 13:34] VITALS: BP 185/78; PULSE 67; RESP 18; TEMP 36.1; BMI 43.4
--- NOTE | 2019-06-19 14:20 | PN.PCM_ITS ---
(1) Ulcer of right foot with fat layer exposed Status: Chronic Code(s): L97.512 - Non-pressure chronic ulcer of other part of right foot with fat layer exposed (2) Chronic ulcer of left foot with fat layer exposed Status: Chronic Code(s): L97.522 - Non-pressure chronic ulcer of other part of left foot with fat layer exposed (3) Localized edema Status: Chronic Code(s): R60.0 - Localized edema (4) Malnutrition Status: Chronic Code(s): E46 - Unspecified protein-calorie malnutrition (5) Type 2 diabetes mellitus with diabetic polyneuropathy Status: Chronic Code(s): E11.42 - Type 2 diabetes mellitus with diabetic polyneuropathy (6) Osteomyelitis Status: Resolved Code(s): M86.9 - Osteomyelitis, unspecified Comment: Surgically excised (7) Tailor's bunion of left foot Status: Chronic Code(s): M21.622 - Bunionette of left foot (8) Peripheral vascular disease Status: Chronic Code(s): I73.9 - Peripheral vascular disease, unspecified Type of Wound Date of Service: 06/19/19 Chief Complaint: Right foot ulcer. Left foot ulcer. right foot post operative fifth ray resection History of Wound: This 48-year-old male with diabetes, peripheral vascular disease (calcified vessels), chronic kidney disease, sleep apnea, obesity and other comorbidities had chronic bilateral foot ulcers with osteomyelitis of the right fifth metatarsal head. He underwent right fifth ray resection on May 16, 2019 at [facility] to address this condition. He was subsequently treated with IV and oral antibiotics under the management of infectious disease and continues on a course of vancomycin and cefepime intravenously on hemodialysis days and oral Flagyl as well. The stop date of antibiotics is 06/27/2019. He denies fever, chill, nausea, vomiting. It is also noted he had prior vascular intervention with Dr. Tuttle earlier this year. Progress of Wound: Improving - Physical Exam Vital Signs Temp Pulse Resp BP 97 F L 67 18 185/78 H 06/19/19 13:34 06/19/19 13:34 06/19/19 13:34 06/19/19 13:34 General: Alert, Oriented x3, Cooperative, No apparent distress Extremities: No cyanosis, Capillary Refill Less than 3 Seconds, No Calf Tenderness, Diminished Peripheral Pulses, Edema Skin: Ulcer/ Wound - No purulence, erythema, streaking, odor, infection. Peripheral skin is atrophic Wound Measurements and Assessment WC - Nurse 1 - General Ulcer Measurement Start: 06/05/19 15:34 Freq: Status: Active Protocol: Activity Type Activity Date Activity User E-Sign Co-Sign Detail Recorded Client Recorded Date Recorded By Document 06/19/19 13:34 RB [id number] 06/19/19 13:52 RB 06/19/19 13:34 Wound Center Nurse 1 [Ulcer Assessment] #4- R LAT PLANTAR -Combined with other wound No -Current Size (cm) - Length 1 -Current Size (cm) - Width 0.3 -Current Size (cm) - Depth 0.3 -Total Square Cm 0.3 -Tunneling No -Undermining/Tunneling No -Circular Undermining No -Exudate Amt Medium -Exudate Type Serosanguineous -Wound Margin Thickened -Granulation Amt Medium (34-66%) -Granulation Quality [place] -Slough/Fibrin Yes -Necrosis Amt Small (1-33%) -Necrotic Tissue Type Adherent Slough -Structure Exposed N/A -Texture (Amanda-wound Skin Appearance) Assessed -Moisture (Amanda-wound Skin Appearance Assessed,Dry/ ) Scaly -Color (Amanda-wound Skin Appearance) Assessed -Temperature (Amanda-wound Skin No Abnormality Appearance) (Pt Warm) -Tenderness on Palpation (Amanda-wound No Skin Appearance) -Ulcer Cleansing Wound Cleanser -Foul Odor after Cleansing No -Anesthetic Used 5% Lidocaine Gel #3- L PLANTAR -Combined with other wound No -Current Size (cm) - Length 1.2 -Current Size (cm) - Width 0.8 -Current Size (cm) - Depth 0.1 -Total Square Cm 0.96 -Tunneling No -Undermining/Tunneling No -Circular Undermining No -Exudate Amt Small -Exudate Type Serosanguineous -Wound Margin Flat & Intact -Granulation Amt Medium (34-66%) -Granulation Quality [place] -Slough/Fibrin Yes -Necrosis Amt Small (1-33%) -Necrotic Tissue Type Adherent Slough -Structure Exposed N/A -Texture (Amanda-wound Skin Appearance) Assessed,Callus -Moisture (Amanda-wound Skin Appearance Assessed,Dry/ ) Scaly -Color (Amanda-wound Skin Appearance) Assessed -Temperature (Amanda-wound Skin No Abnormality Appearance) (Pt Warm) -Tenderness on Palpation (Amanda-wound No Skin Appearance) -Ulcer Cleansing Wound Cleanser -Foul Odor after Cleansing No -Anesthetic Used 5% Lidocaine Gel [Edema Assessment] -Lower Limb Edema Present Yes -Right Calf (cm) 44.5 -Right Ankle (cm) 25 -Left Calf (cm) 45 -Left Ankle (cm) 26 WC - Nurse 2 - General Ulcer CM Notes Start: 06/05/19 15:34 Freq: Status: Active Protocol: Activity Type Activity Date Activity User E-Sign Co-Sign Detail Recorded Client Recorded Date Recorded By Document 06/19/19 14:02 JF [id number] 06/19/19 14:06 JF 06/19/19 14:02 Wound Center Nurse 2 [Procedure/Treatment] #4- R LAT PLANTAR -Time 14:02 -Correct Patient Yes -Correct Side, Site, Position Yes -Correct Procedure Yes -Procedure Performed Yes -Type of Procedure Debridement -Clinical Debridement Subcutaneous -Post Debridement Size (cm) - Length 0.8 -Post Debridement Size (cm) - Width 2.5 -Post Debridement Size (cm) - Depth 0.3 -Total Square Cm 2.00 -Wound/Ulcer Outcome Not Healed -Ulcer Cleansing Rinsed/ Irrigated with Saline -Foul Odor after Cleansing No -Bioengineered Tissue No -Bleeding Controlled with Pressure -Offloading Yes -Type of Offloading Surgical Shoe -Treatment Response Procedure Tolerated Well #3- L PLANTAR -Time 14:02 -Correct Patient Yes -Correct Side, Site, Position Yes -Correct Procedure Yes -Procedure Performed Yes -Type of Procedure Debridement -Clinical Debridement Subcutaneous -Post Debridement Size (cm) - Length 1.3 -Post Debridement Size (cm) - Width 0.8 -Post Debridement Size (cm) - Depth 0.2 -Total Square Cm 1.04 -Wound/Ulcer Outcome Not Healed -Ulcer Cleansing Rinsed/ Irrigated with Saline -Foul Odor after Cleansing No -Bioengineered Tissue No -Bleeding Controlled with Pressure -Offloading Yes -Type of Offloading Surgical Shoe -Treatment Response Procedure Tolerated Well [See Physician Procedure note for Specifics] Pain Scale: 0-10 Numeric [Pain] -Is Patient Pain Free? Yes Musculoskeletal: No Tenderness to Palpation of Joints or Extremities, Muscle Wasting Neurological: - - Lack of normal epicritic sensation light touch is consistent with neuropathy Psych/Mental Status: Normal Affect, Appropriate Debridement Note Post-Debridement Measurements/Treatment WC - Nurse 2 - General Ulcer CM Notes Start: 06/05/19 15:34 Freq: Status: Active Protocol: Activity Type Activity Date Activity User E-Sign Co-Sign Detail Recorded Client Recorded Date Recorded By Document 06/05/19 16:07 [id number] 06/05/19 16:09 Document 06/12/19 15:13 [id number] 06/12/19 15:19 Document 06/19/19 14:02 [id number] 06/19/19 14:06 06/05/19 06/12/19 06/19/19 16:07 15:13 14:02 Wound Center Nurse 2 #4- R LAT PLANTAR -Time 16:07 15:18 14:02 -Correct Patient Yes Yes Yes -Correct Side, Site, Position Yes Yes Yes -Correct Procedure Yes Yes Yes -Procedure Performed Yes Yes Yes -Type of Procedure Debridement Debridement Debridement -Clinical Debridement Subcutaneous Subcutaneous Subcutaneous -Post Debridement Size (cm) - Length 2.0 3.0 0.8 -Post Debridement Size (cm) - Width 1.0 2.0 2.5 -Post Debridement Size (cm) - Depth 0.2 0.3 0.3 -Total Square Cm 2.00 6.00 2.00 -Wound/Ulcer Outcome Not Healed Not Healed Not Healed -Ulcer Cleansing Rinsed/ Rinsed/ Rinsed/ Irrigated with Irrigated with Irrigated with Saline Saline Saline -Foul Odor after Cleansing No No No -Bioengineered Tissue No No No -Bleeding Controlled with Pressure Pressure Pressure -Offloading Yes Yes Yes -Type of Offloading Surgical Shoe Surgical Shoe Surgical Shoe -Treatment Response Procedure Procedure Procedure Tolerated Well Tolerated Well Tolerated Well #3- L PLANTAR -Time 16:08 15:13 14:02 -Correct Patient Yes Yes Yes -Correct Side, Site, Position Yes Yes Yes -Correct Procedure Yes Yes Yes -Procedure Performed Yes Yes Yes -Type of Procedure Debridement Debridement Debridement -Clinical Debridement Subcutaneous Subcutaneous Subcutaneous -Post Debridement Size (cm) - Length 1.5 0.8 1.3 -Post Debridement Size (cm) - Width 1 0.2 0.8 -Post Debridement Size (cm) - Depth 0.2 0.2 0.2 -Total Square Cm 1.5 0.16 1.04 -Wound/Ulcer Outcome Not Healed Not Healed Not Healed -Ulcer Cleansing Rinsed/ Rinsed/ Rinsed/ Irrigated with Irrigated with Irrigated with Saline Saline Saline -Foul Odor after Cleansing No No No -Bioengineered Tissue No No No -Bleeding Controlled with Pressure Pressure Pressure -Offloading Yes Yes Yes -Type of Offloading Surgical Shoe Surgical Shoe Surgical Shoe -Treatment Response Procedure Procedure Procedure Tolerated Well Tolerated Well Tolerated Well Pain Scale: 0-10 Numeric Is Patient Pain Free? Yes Yes Yes Wound debrided: sub fifth metatarsal head Laterality: Left - g Wound Grade/Stage: grade 1 Type of Debridement: Excisional debridement Anesthesia Used: 5% Lidocaine Gel Depth: in the subcutaneous layer Percentage of wound debrided: 100 Instrument Used: #15 blade Tissue Removed: fibrous, devitalized subcutaneous, biofilm, slough Severity: Fat Layer Exposed Amount of bleeding with debridement: Mild Bleeding Controlled with: Pressure Patient tolerated procedure well - Additional Wound Wound debrided: sub 5th prior metatarsal head and lateral amputation site (s shaped) Laterality: Right Wound Grade/Stage: grade 1 Type of Debridement: Excisional debridement Anesthesia Used: 5% Lidocaine Gel Depth: in the subcutaneous layer Percentage of wound debrided: 100 Instrument Used: #15 blade Tissue Removed: fibrous, devitalized subcutaneous, biofilm, slough Severity: Fat Layer Exposed Amount of bleeding with debridement: Mild Bleeding Controlled with: Pressure Patient tolerated procedure: Patient tolerated procedure well Assessment/Plan Assessment: Diabetes with neuropathy (hemoglobin A1c 12%). Status post right fifth ray resection for treatment of osteomyelitis and chronic ulcer, healing well without local signs of infection. Left sub-fifth metatarsal head ulcer, grade 1 and no infection. Foot deformities including hammertoes, tailor bunion, and hallux limitus bilateral. Peripheral vascular disease now status post vascular surgery intervention. Other comorbidities including noncompliance, renal disease on dialysis, cardiac history. Malnutrition suspected. Gait instability Plan: I reviewed and discussed his case. Subcutaneous excisional debridement was performed to the right and left foot as noted in the clinical panel. To change dressing daily with [email or web address] as he has been performing is ready. To continue with offloading surgical shoes and heel weight-bear. To use assistive device as needed. His surgical site is stable and was also covered with a dry gauze. His clearance fragment was sent to pathology did not demonstrate residual osteomyelitis. His clearance fragment of the right fifth metatarsal was sent to microbiology did demonstrate Enterococcus faecalis growth. His wound culture prior to surgery demonstrated mixed organisms including enterococcus, bacillus, corynebacterium, and anaerobes. He is on antibiotics until 06/27/2019 per infectious disease guideline. He is reassured his clinical signs of infection have resolved and his site is stabilizing. To continue to follow-up with infectious disease as advised. . Vascular surgery intervention is noted in greatly appreciated. He had an abdominal pelvic right lower extremity arteriogram with angioplasty of the right proximal anterior tibial artery and right tibial peroneal trunk that was successful. To follow-up with Dr. Tuttle as scheduled. To continue with nutritional supplementation proper glycemic control to optimize healing. Compliance was discussed. It is noted that he is at risk for limb loss due to his condition including his multiple comorbidities. His lab trends will be followed. Application of advanced wound healing prior will be considered pending continued progress. This is medically necessary for limb salvage. He is high risk for continued delayed healing, further amputation, and loss of limb. The indications and anticipated application healing management were discussed. He is amendable to proceed once appropriate. Prior authorization will be obtained prior to proceeding. I answered all his questions. The patient was advised to return to the wound healing center in 2 week or call sooner if he is any questions or concerns.
== END 2019-07-02 23:59 ==
LOC: WC 13:30
PROVIDERS: Family Provider Internal Medicine; PCP Internal Medicine; Visit Provider Podiatrist
DX: E11.621 Type 2 diabetes mellitus with foot ulcer (principal); R60.0 Localized edema; E11.42 Type 2 diabetes mellitus with diabetic polyneuropathy; E11.51 Type 2 diabetes mellitus with diabetic peripheral angiopathy without gangrene; L97.522 Non-pressure chronic ulcer of other part of left foot with fat layer exposed; L97.512 Non-pressure chronic ulcer of other part of right foot with fat layer exposed; Z91.19 Patient's noncompliance with other medical treatment and regimen; M21.622 Bunionette of left foot
CPT/HCPCS: 11042

== ENCOUNTER 2019-06-29 14:42 | Emergency (ER) | payer MEDICARE, SELFPAY ==
[2019-06-29 14:42] VITALS: BP 185/88; TEMP 36.9; BMI 38.3
[2019-06-29 15:08] VITALS: PULSE 77; RESP 16; O2SAT 97
--- NOTE | 2019-06-29 15:08 | RAD_ITS ---
STUDY: X-RAY - LEFT FOOT CLINICAL: Male, 48 years old. CP, SOB, DIZZINESS, WEAKNESS, CONFUSION, PAIN IN FINGER/TOES AND VACA. SX STARTED AFTER DIALYSIS THIS AM. TECHNIQUE: 3 view(s) of the foot. COMPARISON: None. FINDINGS: Normal talus, calcaneus, and tarsal bones. Normal visualized subtalar, talonavicular, calcaneocuboid, tarsal and tarsometatarsal articulations. Normal metatarsi. Normal metatarsophalangeal joint of the great toe. Normal tibial and fibular sesamoid bones. Normal interphalangeal joint of the great toe. Normal phalanges of the great toe. Normal second through fifth metatarsophalangeal joints. There are flexion contractures of the toes. Atherosclerotic calcification is noted. RAD/Foot min 3 Views IMPRESSION: No fracture or malalignment. Electronically Signed: Sudarshan Iglesias MD ([place]) at 15:46 EST , Service support ,
--- NOTE | 2019-06-29 15:08 | EKG12_ITS ---
Test Reason : DYSRHYTHMIA Blood Pressure : / mmHG Vent. Rate : 082 BPM Atrial Rate : 082 BPM P-R Int : 150 ms QRS Dur : 082 ms QT Int : 416 ms P-R-T Axes : 050 003 170 degrees QTc Int : 486 ms Normal sinus rhythm Nonspecific ST and T wave abnormality Prolonged QT Abnormal ECG Confirmed by HOUSTON LOMELI, CANDIE ([id number]), avid editor JACKIE OJEDA ([id number]) on 07/02/2019 9:59:27 AM Referred By: DC Confirmed By:CANDIE CONRAD MD
--- NOTE | 2019-06-29 15:08 | RAD_ITS ---
STUDY: X-RAY CHEST REASON FOR EXAM: Male, 48 years old. CP, SOB, DIZZINESS, WEAKNESS, CONFUSION, PAIN IN FINGER/TOES AND VACA. SX STARTED AFTER DIALYSIS THIS AM. TECHNIQUE: AP COMPARISON: 06/04/2019 FINDINGS: EKG leads project over the chest. The lungs are clear and expanded. There is no demonstrated pleural abnormality. There is mild cardiac enlargement. Normal mediastinum and esmer. Normal visualized pulmonary arteries. Normal visualized aortic arch and descending thoracic aorta. Normal visualized thoracic spine. Normal visualized ribs, clavicles, and shoulders. There is no demonstrated abnormality of the visualized soft tissue structures of the upper abdomen. RAD/Chest 1 View (Portable) IMPRESSION: Stable, nonacute portable x-ray examination of the chest. Electronically Signed: Sudarshan Iglesias MD ([place]) at 15:47 EST , Service support ,
--- NOTE | 2019-06-29 15:09 | RAD_ITS ---
STUDY: X-RAY - RIGHT FOOT CLINICAL: Male, 48 years old. CP, SOB, DIZZINESS, WEAKNESS, CONFUSION, PAIN IN FINGER/TOES AND VACA. SX STARTED AFTER DIALYSIS THIS AM. TECHNIQUE: 3 view(s) of the foot. COMPARISON: 3 FINDINGS: Normal talus, calcaneus, and tarsal bones. Normal visualized subtalar, talonavicular, calcaneocuboid, tarsal and tarsometatarsal articulations. Partial amputation of the fifth metatarsal (and toe) with decreased amount of soft tissue swelling. Normal metatarsophalangeal joint of the great toe. Normal tibial and fibular sesamoid bones. Normal interphalangeal joint of the great toe. Normal phalanges of the great toe. Normal second through fifth metatarsophalangeal joints. Flexion contractures of the second through fourth toes. No destructive bony process. The soft tissue structures are otherwise unremarkable. RAD/Foot min 3 Views IMPRESSION: Stable exam. Amputation of the fifth toe and adjacent metatarsal. Electronically Signed: Sudarshan Iglesias MD ([place]) at 15:48 EST , Service support ,
--- NOTE | 2019-06-29 15:13 | ED.DCSUM_ITS ---
- ER Visit Summary Date of Service: 06/29/19 Chief Complaint: Hurting History of Present Illness: The patient is a 48 M who presents with pain to his head, chest, hands, legs, and feet. Symptoms started after dialysis earlier today. He has a history of end-stage renal disease. He completed his dialysis today. He also has diabetes, hypertension, hyperlipidemia, neuropathy, chronic foot wounds and is status post amputation of his right fifth toe. He denies any history of coronary disease, heart attack, DVT, or PE. He was recently admitted to rehab after his toe amputation. He was sent home this previous Monday without pain medicine. He was previously on morphine and then oxycodone while in rehab. Denies fever or any other associated symptoms. Physical Examination: Afebrile and vital signs unremarkable except blood pressure 185/88. Alert and oriented. No acute distress. HEENT exam unremarkable. Cranial nerves grossly intact. Heart regular. Lungs clear. Abdomen soft. Good strength and sensation. Normal cerebellar testing. Patient has superficial ulcerations to his bilateral feet and is status post right fifth toe amputation. There is no surrounding erythema, warmth, drainage, or bleeding. Test Results: EKG, labs, chest x-ray, and feet x-rays are pending. Emergency Department Course and Treatment: Patient presents with diffuse body aches after dialysis. I suspect this may be a side effect from his dialysis. We will check some basic labs. We will also check a chest x-ray, troponin, and EKG. His feet do not appear to show any signs of infection, but I will check x- rays. I also suspect he has increasing pain because he was discharged from rehab without anything for pain and was recently on morphine and oxycodone earlier this week. Patient was treated with morphine while awaiting results. X-rays are all stable. Hemoglobin 10.3, stable. Metabolic panel reflects his end-stage renal disease. EKG is nonspecific. No sign of acute ischemia. Troponin normal. I suspect the patient has pain because he is out of his pain medicine and secondary to his recent dialysis today. Will prescribe a short course of pain medicine. Follow-up with his family doctor. Treatment Plan: As above Disposition: Discharge Impression: 1. Myalgias 2. Bilateral foot ulcers This note was generated with [employer] software. It may contain incorrect words, spelling, and punctuation that were not noted in review of the chart prior to signing ED Disposition - Plan for ED Patient: Referrals: Augie Washburn MD [Primary Care Provider] -
[2019-06-29 15:28] LABS: Basophil# 0.05 X10^3/uL; Basophil% 0.6 % (0-1); Eosinophil# 0.28 X10^3/uL; Eosinophils% 3.6 % (0-5); Hemoglobin 10.3 g/dL (13.0-16.5); Mean Corp Hgb Conc 31.2 g/dL (32-36); Mean Corpuscular Hgb 29.1 pg (27.0-32.0); Mean Corpuscular Volume 93.2 fL (80-94); Mean Platelet Vol. 9.6 fl (6.2-12.0); Monocyte# 0.67 X10^3/uL; Monocyte% 8.7 % (0-10); NRBC Flagged by Analyzer 0 % (0-5); Neutrophil # 5.99 X10^3/uL (2.7-7.7); Neutrophil % 77.5 % (47-70); Platelet Count 233 K/mm3 (150-450); RBC Distribution Width CV 15.9 % (11.6-14.6); RBC Distribution Width SD 54.3 fl (35.1-43.9); Red Blood Count 3.54 M/mm3 (4.6-6.2); White Blood Count 7.7 K/mm3 (4.4-11.0)
[2019-06-29] MEDS: Aspirin 81 MG TAB.CHEW 324 MG PO (15:37)
[2019-06-29] MEDS: Morphine 4 MG/ML Syringe IV (15:37)
[2019-06-29 15:45] LABS: Anion Gap 7 (5-15); BUN 22 mg/dL (7-18); BUN/Creat Ratio 6.4 RATIO (10-20); Calcium,Total 8.2 mg/dL (8.5-10.1); Chloride 96 mmol/L (98-107); Creatinine, Serum 3.43 mg/dL (0.70-1.30); EST Glomerular Filtration Rate 20 mL/min (>60); Est Glom Filt Rate - Afr Amer 24 mL/min (>60); Estimated Creatinine Clearance 24.09 ml/min; Glucose 264 mg/dL (74-106); Potassium 4.1 mmol/L (3.5-5.1); Sodium Level 135 mmol/L (136-145)
--- NOTE | 2019-06-29 16:41 | ED.DEP ---
ED Disposition - Plan for ED Patient: Instructions: Diabetic Foot Ulcers Prescriptions: Oxycodone HCl/Acetaminophen [Percocet 5/325] 1 tab PO Q6H PRN PRN 3 Days #12 tab PRN Reason: Pain Or Fever Prescription Printed Referrals: Augie Washburn MD [Primary Care Provider] -
[2019-06-29 16:52] VITALS: BP 208/57; PULSE 83; RESP 16; O2SAT 94
== END 2019-06-29 17:00 | disposition home or self-care (01) ==
LOC: ED 15:15
PROVIDERS: Emergency Provider Emergency Medicine; Family Provider Internal Medicine; PCP Internal Medicine
DX: E11.621 Type 2 diabetes mellitus with foot ulcer (principal); L97.519 Non-pressure chronic ulcer of other part of right foot with unspecified severity; L97.529 Non-pressure chronic ulcer of other part of left foot with unspecified severity; M79.10 Myalgia, unspecified site; Z89.421 Acquired absence of other right toe(s); E11.22 Type 2 diabetes mellitus with diabetic chronic kidney disease; I13.2 Hypertensive heart and chronic kidney disease with heart failure and with stage 5 chronic kidney disease, or end stage renal disease; I50.9 Heart failure, unspecified; N18.6 End stage renal disease; Z99.2 Dependence on renal dialysis; E11.40 Type 2 diabetes mellitus with diabetic neuropathy, unspecified; E78.5 Hyperlipidemia, unspecified; G47.33 Obstructive sleep apnea (adult) (pediatric); Z86.2 Personal history of diseases of the blood and blood-forming organs and certain disorders involving the immune mechanism; Z86.73 Personal history of transient ischemic attack (TIA), and cerebral infarction without residual deficits; Z79.4 Long term (current) use of insulin; Z79.82 Long term (current) use of aspirin; Z79.899 Other long term (current) drug therapy
CPT/HCPCS: 71045; 73630; 80048; 84484; 85025; 93005; 96374; 99283; A4216

== ENCOUNTER 2019-07-05 20:00 | Inpatient (IN) | payer MEDICARE, SELFPAY ==
[2019-07-05] VITALS (7 sets, daily range): BP systolic 177–217; BP diastolic 82–108; PULSE 78–99; RESP 16–28; TEMP 36.9–38.4; O2SAT 92–98; BMI 40.1
--- NOTE | 2019-07-05 20:03 | ED.RN ---
RN CALLED FOR EKG, PULLED OLD EKGS FOR
--- NOTE | 2019-07-05 20:56 | EKG12_ITS ---
Test Reason : SOB Blood Pressure : / mmHG Vent. Rate : 084 BPM Atrial Rate : 084 BPM P-R Int : 150 ms QRS Dur : 080 ms QT Int : 380 ms P-R-T Axes : 040 002 151 degrees QTc Int : 449 ms Normal sinus rhythm ST & T wave abnormality, consider lateral ischemia Abnormal ECG Confirmed by HOUSTON LOMELI, CANDIE ([id number]), publications editor JACKIE OJEDA ([id number]) on 07/08/2019 12:54:09 PM Referred By: Confirmed By:CANDIE CONRAD MD
[2019-07-05] MEDS: Acetaminophen 500 MG Tablet 1000 MG PO (21:05)
[2019-07-05] MEDS: Ondansetron 4 MG/2 ML Vial IV (21:56)
--- NOTE | 2019-07-05 22:00 | RAD_ITS ---
STUDY: X-RAY CHEST REASON FOR EXAM: Male, 48 years old. SOB WITH WEAKNESS TECHNIQUE: AP and lateral views of the chest. COMPARISON: Prior study of 06/29/2019 FINDINGS: security monitor leads are present. There is a right lower lobe infiltrate, new in the interval. There is no demonstrated pleural abnormality. There is moderate cardiac enlargement. Normal mediastinum and esmre. There is prominence of the pulmonary hilar arteries and peripheral pulmonary arteries, consistent with congestive heart failure (CHF). Normal visualized aortic arch and descending thoracic aorta. Normal visualized thoracic spine. Normal visualized ribs, clavicles, and shoulders. There is no demonstrated abnormality of the visualized soft tissue structures of the upper abdomen. RAD/Chest PA and Lateral IMPRESSION: Right lower lobe infiltrate, new in the interval. Moderate cardiomegaly. Mild CHF, also new in the interval. Electronically Signed: Mauri De Leon MD at 22:15 EST , Service support ,
[2019-07-05 22:01] LABS: Absolute Lymphocyte Count 0.53 X10^3/uL (0.83-4.51); Absolute Neutrophil Count 7.6 X10^3/uL (2.0-7.7); Basophil# 0.06 X10^3/uL; Basophil% 0.7 % (0-1); Eosinophil# 0.28 X10^3/uL; Hematocrit 32.2 % (40-54); Hemoglobin 10.2 g/dL (13.0-16.5); Lymphocyte # 0.53 X10^3/ul (4.0); Lymphocyte % 5.8 % (19-41); Mean Corp Hgb Conc 31.7 g/dL (32-36); Mean Corpuscular Hgb 29.7 pg (27.0-32.0); Mean Corpuscular Volume 93.9 fL (80-94); Mean Platelet Vol. 10.2 fl (6.2-12.0); Monocyte# 0.69 X10^3/uL; Monocyte% 7.5 % (0-10); NRBC Flagged by Analyzer 0 % (0-5); Neutrophil # 7.57 X10^3/uL (2.7-7.7); Neutrophil % 82.2 % (47-70); POSITIVE DIFFERENTIAL YES; Platelet Count 176 K/mm3 (150-450); RBC Distribution Width CV 16.3 % (11.6-14.6); RBC Distribution Width SD 54.7 fl (35.1-43.9); Red Blood Count 3.43 M/mm3 (4.6-6.2); White Blood Count 9.2 K/mm3 (4.4-11.0)
[2019-07-05 22:06] LABS: Differential Indicated SCAN CRITERIA MET
[2019-07-05 22:10] LABS: International Normalized Ratio 1.3; Prothrombin Time (Protime)PT. 16.1 SECONDS (11.7-14.9)
[2019-07-05 22:11] LABS: Partial Thromboplast Time 32.9 Seconds (24.1-36.2)
[2019-07-05 22:16] LABS: ALB/GLOB Ratio 0.6 RATIO (0.9-2.4); AST(SGOT) 14 U/L (15-37); Alanine Aminotransfer ALT/SGPT 21 U/L (16-61); Albumin, Serum 2.7 g/dL (3.2-5.0); Alkaline Phosphatase 127 U/L (45-117); Anion Gap 10 (5-15); BUN 44 mg/dL (7-18); BUN/Creat Ratio 7.7 RATIO (10-20); Calcium,Total 8.6 mg/dL (8.5-10.1); Chloride 100 mmol/L (98-107); Creatinine, Serum 5.75 mg/dL (0.70-1.30); EST Glomerular Filtration Rate 11 mL/min (>60); Est Glom Filt Rate - Afr Amer 14 mL/min (>60); Estimated Creatinine Clearance 14.37 ml/min; Globulin 4.5 g/dL (2.2-4.2); Glucose 221 mg/dL (74-106); Potassium 4.5 mmol/L (3.5-5.1); Protein, Total 7.2 g/dL (6.4-8.2); Sodium Level 135 mmol/L (136-145)
[2019-07-05 22:21] LABS: Lactic Acid 1.3 mmol/L (0.4-1.9)
[2019-07-05 22:31] LABS: Anisocytosis 1+; Macrocytosis RARE; Platelet Estimate ADEQUATE (ADEQ); Red Cell Morphology N CHROM NORMAL (NORM C&C)
--- NOTE | 2019-07-05 23:10 | ED.VISSUMM ---
- ER Visit Summary Date of Service: 07/05/19 Chief Complaint: Shortness of breath History of Present Illness: The patient is a 48 M who presents with shortness of breath that is gradually gotten worse throughout the day today. Patient admits to subjective fevers at home. Patient admits to a cough but denies any sputum production. Patient states nothing makes his breathing better or worse. Patient denies any chest pain. Patient denies any upper respiratory symptoms. Patient does admit to some nausea and vomiting. Patient also admits to some generalized weakness. Patient takes dialysis 3 days a week on Tuesdays, , and Saturdays. Physical Examination: Vital signs showed an elevated blood pressure of 217/89. Temperature was 101.1. Pulse ox was 95% on 4 L nasal cannula. Patient is in no acute distress. Oral mucosa is pink and moist. Neck is supple. Trachea is midline. There is no JVD. Heart was regular rate and rhythm. Lungs showed diffuse rhonchi. There is good respiratory effort. Abdomen was soft and nontender. Cranial nerves II through XII are intact. There are no focal motor or sensory deficits noted. Extremities are intact. There is no edema. There is an AV fistula in the right upper arm with a good palpable thrill. Test Results: CBC shows a mild anemia with a hemoglobin of 11.2. BUN and creatinine were elevated at 44 and 5.75. INR was normal at 1.3. EKG showed a normal sinus rhythm with a rate of 84. There are nonspecific ST-T wave changes. This was unchanged compared to previous EKG dated 06/29/2019. Chest x-ray shows right lower lobe infiltrate. There is also some mild congestive heart failure noted. This was interpreted by the radiologist and myself. Lactate was normal. Blood cultures were obtained. Emergency Department Course and Treatment: Patient was given Tylenol and Zofran here initially. Patient was started on Levaquin. Patient was feeling better. Case was discussed with the hospitalist. He will admit the patient to his service. Disposition: Admit to hospital Impression: 1. Pneumonia 2. Hypoxemia This note was generated with [employer] software. It may contain incorrect words, spelling, and punctuation that were not noted in review of the chart prior to signing ED Disposition - Plan for ED Patient: Disposition: Acute Care Hospital [facility] Diagnosis: Pneumonia
--- NOTE | 2019-07-05 23:24 | HP.PCM_ITS ---
Problem List (1) Community acquired pneumonia Status: Acute (2) Pneumonia Status: Inactive (3) Chronic ulcer of left foot with fat layer exposed Status: Chronic (4) Blister of left foot Status: Inactive (5) Ulcer of right foot with fat layer exposed Status: Chronic (6) Chronic ulcer of left foot with fat layer exposed Status: Chronic (7) Localized edema Status: Inactive (8) Malnutrition Status: Chronic (9) Type 2 diabetes mellitus with diabetic polyneuropathy Status: Chronic (10) Osteomyelitis Status: Inactive Comment: Surgically excised (11) Tailor's bunion of right foot Status: Chronic (12) Diabetic foot infection Status: Inactive (13) Bilateral foot wounds Status: Chronic (14) Tailor's bunion of left foot Status: Chronic (15) Osteomyelitis Status: Inactive Qualifiers: Osteomyelitis location: foot Laterality: right Comment: differential diagnosis (16) Peripheral vascular disease Status: Chronic (17) Toe fracture, right Status: Chronic Qualifiers: Toe: lesser toe Fracture type: closed Phalanx: proximal Fracture alignment: nondisplaced (18) Non-pressure chronic ulcer of other part of right foot with fat layer exposed Status: Chronic (19) Non-pressure chronic ulcer of other part of left foot with fat layer exposed Status: Chronic (20) Chest pain Status: Inactive Qualifiers: Chest pain type: unspecified Qualified Code(s): R07.9 - Chest pain, unspecified Comment: ACS ruled out (21) Type 1 diabetes mellitus Status: Chronic Qualifiers: (22) Morbid obesity with BMI of 40.0-44.9, adult Status: Chronic (23) Noncompliance Status: Chronic (24) CHF (congestive heart failure) Status: Chronic Qualifiers: Heart failure type: diastolic Heart failure chronicity: chronic Qualified Code(s): I50.32 - Chronic diastolic (congestive) heart failure (25) Abnormal stress test Status: Chronic (26) TIA (transient ischemic attack) Status: Chronic Qualifiers: Transient cerebral ischemia type: unspecified Qualified Code(s): G45.9 - Transient cerebral ischemic attack, unspecified (27) Pulmonary hypertension Status: Chronic (28) Morbid obesity with BMI of 40.0-44.9, adult Status: Chronic (29) End stage renal disease on dialysis Status: Chronic (30) Chronic respiratory failure with hypoxia Status: Chronic (31) HTN (hypertension) Status: Chronic Qualifiers: Hypertension type: essential hypertension Qualified Code(s): I10 - Essential (primary) hypertension (32) Hyperlipidemia Status: Chronic Qualifiers: Hyperlipidemia type: unspecified Qualified Code(s): E78.5 - Hyperlipidemia, unspecified (33) Diabetic neuropathy Status: Chronic Qualifiers: Diabetes mellitus type: type 2 (34) Anemia Status: Chronic Qualifiers: (35) SELMA (obstructive sleep apnea) Status: Chronic History of Present Illness Date of Admission: 07/05/19 Chief Complaint: Weakness The patient is a 48 year old M with a significant history of hypertension; morbid obesity; obstructive sleep apnea; who presented to emergency department with weakness so severe that he could not stand. Associated with symptoms is shortness of breath; nausea and vomiting. Further he had anorexia; malaise; sore throats; subjective fever; and runny nose. Of note patient had his right fifth toe amputated about 2 weeks ago. Past Medical History Past Medical History (Chronic Problems): Chronic Problems (Last Reviewed 07/06/19 @ 09:26 by Eze Rivera MD) Chronic ulcer of left foot with fat layer exposed (Chronic) Ulcer of right foot with fat layer exposed (Chronic) Chronic ulcer of left foot with fat layer exposed (Chronic) Malnutrition (Chronic) Type 2 diabetes mellitus with diabetic polyneuropathy (Chronic) Tailor's bunion of right foot (Chronic) Bilateral foot wounds (Chronic) Tailor's bunion of left foot (Chronic) Peripheral vascular disease (Chronic) Toe fracture, right (Chronic) Non-pressure chronic ulcer of other part of right foot with fat layer exposed (Chronic) Non-pressure chronic ulcer of other part of left foot with fat layer exposed (Chronic) Type 1 diabetes mellitus (Chronic) Morbid obesity with BMI of 40.0-44.9, adult (Chronic) Noncompliance (Chronic) CHF (congestive heart failure) (Chronic) Abnormal stress test (Chronic) TIA (transient ischemic attack) (Chronic) Pulmonary hypertension (Chronic) Morbid obesity with BMI of 40.0-44.9, adult (Chronic) End stage renal disease on dialysis (Chronic) Chronic respiratory failure with hypoxia (Chronic) HTN (hypertension) (Chronic) Hyperlipidemia (Chronic) Diabetic neuropathy (Chronic) Anemia (Chronic) SELMA (obstructive sleep apnea) (Chronic) Medical History: Medical History (Last Reviewed 07/06/19 @ 09:26 by Eze Rivera MD) Chronic respiratory failure with hypoxia (Chronic) J96.11 HTN (hypertension) (Chronic) I10 Hyperlipidemia (Chronic) E78.5 Diabetic neuropathy (Chronic) E11.40 Anemia (Chronic) D64.9 SELMA (obstructive sleep apnea) (Chronic) G47.33 ESRD (end stage renal disease) on dialysis N18.6, Z99.2 cataract surgery, l eye Hypotension I95.9 Morbid obesity E66.01 Type 2 diabetes mellitus with other diabetic kidney complication E11.29 dx : age 16 last exacerbation : dka : never hypoglycemic episode : 2012 er visit : 2013 Allergies venom-honey bee [bee venom (honey bee)] Allergy (Verified 07/05/19 20:02) Swelling sulfamethoxazole [From Bactrim] Adverse Reaction (Verified 07/05/19 20:02) Upset Stomach trimethoprim [From Bactrim] Adverse Reaction (Verified 07/05/19 20:02) Upset Stomach Home Medications: Ambulatory Orders Medication Instructions Recorded Atorvastatin Calcium [Lipitor] 20 mg PO QHS 10/11/17 Vits A,C,E/Lutein/Minerals 1 ea PO DAILY 10/11/17 [Ocuvite with Lutein Tablet] Folic Acid/Vitamin B Comp W-C 1 cap PO DAILY 10/27/17 [Nephrocaps, Renaphro] albuterol sulfate 90 mcg/actuation 2 puff INHALATION Q4H PRN #18 g 02/26/18 aerosol inhaler Aspirin E.C. [Ecotrin] 81 mg PO DAILY 03/23/18 Cyclobenzaprine HCl 10 mg PO TID PRN PRN 03/23/18 Fluticasone 0.05% [Flonase Nasal 1 spray NASAL DAILY 03/23/18 [place]] Gabapentin [Neurontin] 300 mg PO BID 03/23/18 isosorbide mononitrate 30 mg 30 mg PO DAILY #30 tab 07/24/18 tablet,extended release 24 hr Acetaminophen [Tylenol Tablet] 650 mg PO Q6H PRN PRN tab 09/19/18 Guaifenesin Dm [Robitussin Dm] 10 ml PO Q6H PRN PRN #1 bottle 11/21/18 Furosemide [Lasix] 40 mg PO BID 03/12/19 Metoprolol Tartrate [Lopressor 50 mg PO BID 03/12/19 (beta khoa)] Omeprazole 40 mg PO DAILY 03/12/19 proMETHazine tablet [Phenergan 25 mg PO TID PRN 03/13/19 tablet] Collagenase [Santyl] 1 applic TOPICAL DAILY tube 03/15/19 Lisinopril [Zestril] 20 mg PO DAILY tab 03/20/19 Sevelamer HCl [Renagel] 2,400 mg PO TID #0 03/20/19 Insulin Lispro [Humalog KwikPen] See Protocol SUBCUT ACHS 05/20/19 insuln.pen Insulin Aspart [Novolog Flexpen 10 units SUBCUT TIDCM 07/05/19 ([facility])] Surgical History: Surgical History (Last Reviewed 07/06/19 @ 09:26 by Eze Rivera MD) S/P tonsillectomy Z90.89 dialysis fistula Rt Arm Surgical History: tonsillectomy, - - AV fistula in right arm. Vascular surgery intervention right lower extremity Psychiatric History: No pertinent psych hx Lives: With Family Smoking Status: Never smoker Alcohol: None - *Family History Maternal Family History: Family History (Last Reviewed 07/06/19 @ 09:27 by Eze Rivera MD) Mother Hypertension Heart disease Diabetes Father Hypertension Heart disease Brother Heart disease History Items: Diabetes, Heart Disease, Hypertension, Renal Disease Paternal Family History: Family History (Last Reviewed 07/06/19 @ 09:27 by Eze Rivera MD) Mother Hypertension Heart disease Diabetes Father Hypertension Heart disease Brother Heart disease History Items: Cancer - liver, Diabetes, Heart Disease Review of Systems Constitutional: Reports: Anorexia, Fever, Malaise, Weakness, Fatigue. Denies: Chills, Weight Change HEENT: Denies: Head Aches, Sinus Congestion, Sinus Drainage Cardiovascular: Denies: Chest Pain, Palpitations Respiratory: Reports: Cough, Shortness of Breath Gastrointestinal: Reports: Nausea, Vomiting. Denies: Abdominal Pain Genitourinary: Denies: Dysuria Musculoskeletal: Denies: Joint Pain, Joint Tenderness Skin: Denies: Rash, Wounds Neurological: Denies: Numbness, Tingling, Focal weakness Psychiatric: Denies: Anxiety, Depression, Homicidal Ideations, Suicidal Ideations Hematologic/ Lymphatic: Denies: Easy Bruising, Easy Bleeding VTE Information - Inpt Only VTE Present on Admission: No VTE Mechan Device Prophylaxis: None VTE Pharm Prophylaxis ordered?: Yes Patient Problems: Active and Suspected Problems (Last Reviewed 07/06/19 @ 09:26 by Eze Rivera MD) Community acquired pneumonia (Acute) - Physical Exam Vitals/I&O's: Vital Signs Temp Pulse Resp BP Pulse Ox 99.6 F H 84 22 H 177/108 H 94 07/05/19 22:11 07/05/19 22:11 07/05/19 22:11 07/05/19 22:11 07/05/19 22:11 Oxygen Flow Rate (L/min) 2 Oxygen Delivery Method Nasal Cannula Weight: 116.3 kg Body Mass Index (BMI) 40.1 Finger Stick Blood Glucose 191 General: Alert, Oriented x3, Cooperative, - - Patient looks sick HEENT: Atraumatic, PERRLA, EOMI, Normocephalic Neck: Supple, Trachea Midline Lungs: No rhonchi, No wheeze, Rales - Right base, Tachypneic Cardiovascular: Regular rate, Normal S1, Normal S2, No murmurs Abdomen: Bowel Sounds Present, Soft, Non Tender Extremities: No edema, Capillary Refill Less than 3 Seconds, - - Right leg with no fifth toe Skin: Ulcer/ Wound - Wound on lateral side of bilateral feet, - - Wound on lateral side of bilateral feet Musculoskeletal: No Tenderness to Palpation of Joints or Extremities Neurological: Cranial nerves II-XII grossly intact Psych/Mental Status: Normal Affect, Appropriate Laboratory Results 07/05/19 21:45: WBC 9.2, RBC 3.43 L, Hgb 10.2 L, Hct 32.2 L, MCV 93.9, MCH 29.7, MCHC 31.7 L, RDW Std Deviation 54.7 H, RDW Coeff of Orberto 16.3 H, Plt Count 176, MPV 10.2, Immature Gran % (Auto) 0.800, Neut % (Auto) 82.2 H, Lymph % (Auto) 5.8 L, [place] % (Auto) 7.5, Eos % (Auto) 3.0, Baso % (Auto) 0.7, Absolute Neuts (auto) 7.6, Absolute Lymphs (auto) 0.53 L, Nucleated RBC % 0, Differential Comment SEE COMMENT, Platelet Estimate ADEQUATE, RBC Morphology N CHROM, Anisocytosis 1+, Macrocytosis RARE 01/03/20 21:45: PT 16.1 H, INR 1.3, APTT 32.9 07/05/19 21:45: Sodium 135 L, Potassium 4.5, Chloride 100, Carbon Dioxide 25.0, Anion Gap 10, BUN 44 H, Creatinine 5.75 H, Estim Creat Clear Calc 14.37, Est GFR (MDRD) Af Amer 14 L, Est GFR (MDRD) Non-Af 11 L, BUN/Creatinine Ratio 7.7 L, Glucose 221 H, Calcium 8.6, Total Bilirubin 0.60, AST 14 L, ALT 21, Alkaline Phosphatase 127 H, Total Protein 7.2, Albumin 2.7 L, Globulin 4.5 H, Albumin/Globulin Ratio 0.6 L 07/05/19 21:45: Lactic Acid 1.3 Current Medications Levofloxacin (Levaquin Iv) 750 mg in 150 mls @ 100 mls/hr IV X1 ONE Stop: 07/06/19 00:37 Assessment/Plan All Active Problems (Last Reviewed 07/06/19 @ 09:26 by Eze Rivera MD) Community acquired pneumonia (Acute) The patient is a 48 year old M with a significant history of hypertension; morbid obesity; obstructive sleep apnea; who presented to emergency department with weakness; shortness of breath; nausea; vomiting; anorexia; malaise; sore throats; subjective fever; and runny nose and radiographic evidence of right lower lobe infiltrate consistent with community-acquired pneumonia. Sepsis secondary to community-acquired pneumonia Lactic acid: 1.3 RR: Highest of 28 Fever of 101.1 Fahrenheit Oxygen saturation: At home patient uses oxygen by nasal cannula PRN. At the emergency department patient required oxygen. Blood culture ?2 is pending Chest x-ray: Right lower lobe infiltrate, new in the interval. Moderate cardiomegaly. Mild CHF also new in the interval. Antibiotics: Levaquin was given at the emergency department. Continue Levaquin renally dose. Albuterol as needed Exacerbation of heart failure with preserved ejection fraction Echocardiogram on 03/16/2019 showed estimated left ventricular ejection fraction of 60%. Stage II diastolic dysfunction. Trivial tricuspid valve insufficiency. Pulmonary artery systolic pressure was 35. Patient is due for dialysis on 07/06/2019. Nephrology consult. Hypertensive urgency On presentation he systolic blood pressure was more than 180 Lasix continued Lisinopril continued Metoprolol continued Imdur continued PRN Hydralazine IV added. Trend blood pressure and adjust blood pressure medication Diabetes mellitus type II With complications including diabetic nephropathy (end-stage renal disease). Patient with hyperglycemia On home prandial insulin and correction scale insulin. Continue prandial in sulin and correction scale insulin. Accu-Chek QA CHS. Patient's oral hypoglycemics held. End stage disease on dialysis Nephrology consult Sevelamer continued Calorie controlled diet with low potassium and low phosphate. Bilateral feet wound. Dry dressing Wound care consult. DVT prophylaxis Subcutaneous Lovenox. Code Visit Inpatient E&M: 29279 Init Hosp L3
[2019-07-05] MEDS: levoFLOXacin IV 750 MG/150 ML BAG 100 MG IV (23:38)
[2019-07-06] VITALS (13 sets, daily range): BP systolic 145–216; BP diastolic 64–104; PULSE 69–84; RESP 16–22; TEMP 36.8–37.4; O2SAT 95–100; BMI 39.3
--- NOTE | 2019-07-06 00:11 | ED.RN ---
Dr. Kimbrough aware that patient hasn't had urine.
[2019-07-06] MEDS: Acetaminophen 325 MG Tablet 650 MG PO ×4 (01:51→22:27)
[2019-07-06 06:56] LABS: Absolute Lymphocyte Count 0.71 X10^3/uL (0.83-4.51); Absolute Neutrophil Count 5.9 X10^3/uL (2.0-7.7); Basophil# 0.07 X10^3/uL; Basophil% 0.9 % (0-1); Eosinophil# 0.32 X10^3/uL; Hematocrit 30.7 % (40-54); Hemoglobin 9.3 g/dL (13.0-16.5); Lymphocyte # 0.71 X10^3/ul (4.0); Mean Corp Hgb Conc 30.3 g/dL (32-36); Mean Corpuscular Hgb 28.6 pg (27.0-32.0); Mean Corpuscular Volume 94.5 fL (80-94); Mean Platelet Vol. 10.6 fl (6.2-12.0); Monocyte# 0.88 X10^3/uL; Monocyte% 11.1 % (0-10); NRBC Flagged by Analyzer 0 % (0-5); Neutrophil # 5.87 X10^3/uL (2.7-7.7); Neutrophil % 74.2 % (47-70); Platelet Count 175 K/mm3 (150-450); RBC Distribution Width CV 16.4 % (11.6-14.6); Red Blood Count 3.25 M/mm3 (4.6-6.2); White Blood Count 7.9 K/mm3 (4.4-11.0)
[2019-07-06 07:01] LABS: Bedside Glucose 119 mg/dL (70-110)
[2019-07-06 07:41] LABS: Anion Gap 10 (5-15); BUN 44 mg/dL (7-18); BUN/Creat Ratio 7.4 RATIO (10-20); Calcium,Total 8.1 mg/dL (8.5-10.1); Chloride 99 mmol/L (98-107); Creatinine, Serum 5.97 mg/dL (0.70-1.30); EST Glomerular Filtration Rate 11 mL/min (>60); Est Glom Filt Rate - Afr Amer 13 mL/min (>60); Estimated Creatinine Clearance 13.84 ml/min; Glucose 124 mg/dL (74-106); Potassium 4.3 mmol/L (3.5-5.1); Sodium Level 135 mmol/L (136-145)
--- NOTE | 2019-07-06 12:13 | PCM.CONS.R ---
Consultation - Renal 07/06/19 PCP/ Referring MD: Requesting physician: [] Primary care physician: Augie Washburn MD Reason for Consultation:: ESRD HD TTS - History of Present Illness History of Present Illness: The patient is a 48 year old M with ESRD due to diabetes, hypertension on HD THS at [facility] unit admitted for weakness, increased lethargy yesterday at home. His states his sugar was elevated in the 300s improved down to 100 range. He had nausea vomiting 2 days ago. He complains of sinus congestion and postnasal drainage with nonproductive cough. . He has history of noncompliance with medications, high interdialytic fluid gains. He is currently receiving his hemodialysis with stable blood pressures actually blood pressure was elevated due to his medications on hold this morning for dialysis. He is alert and oriented at his baseline mental status.He is morbidly obese with SELMA. Recently hospitalized for persistent diabetic foot ulcers requiring debridement, rt 5th toe amputation with subsequent transfer to [facility], now readmitted from home. He is followed by podiatry in wound center. He has completed his course of antibiotic therapy. - Allergies Allergies: Allergies venom-honey bee [bee venom (honey bee)] Allergy (Verified 07/05/19 20:02) Swelling sulfamethoxazole [From Bactrim] Adverse Reaction (Verified 07/05/19 20:02) Upset Stomach trimethoprim [From Bactrim] Adverse Reaction (Verified 07/05/19 20:02) Upset Stomach - Current Medications Current Medications: Current Medications Acetaminophen (Tylenol) 650 mg PO Q6H PRN PRN PRN Reason: Pain Score 1-10/Temp > 100.7 F Last Admin: 07/06/19 08:02 Dose: 650 mg Documented by: Albuterol Sulfate (Ventolin Aerosols) 2.5 mg INHALATION Q2H PRN PRN Reason: sob/wheezing Aspirin (Ecotrin) 81 mg PO DAILY [facility] Atorvastatin Calcium (Lipitor) 20 mg PO QHS [facility] Collagenase (Santyl) 1 applic TOPICAL DAILY [facility]; Protocol Cyclobenzaprine HCl (Flexeril) 10 mg PO TID PRN PRN PRN Reason: SPASMS Enoxaparin Sodium (Lovenox) 30 mg SC DAILY [facility] Fluticasone Propionate (Flonase Nasal [place]) 1 spray NASAL DAILY [facility] Furosemide (Lasix) 40 mg PO BID [facility] Gabapentin (Neurontin) 300 mg PO BID [facility] Glucagon () 1 mg IM .X1 PRN PRN Reason: Hypoglycemia Guaifenesin (Mucinex) 1,200 mg PO BID [facility] Hydralazine HCl (Apresoline Iv) 10 mg IV Q4H PRN PRN PRN Reason: SBP > 160 Levofloxacin (Levaquin Iv) 500 mg in 100 mls @ 100 mls/hr IV Q48H [facility] Dextrose (Dextrose 10%-Water) 250 mls @ 999 mls/hr IV .Q16M PRN; Protocol PRN Reason: HYPOGLYCEMIA Insulin Human Lispro (Humalog Kwikpen (Bkc)) 0 unit SC ACHS [facility]; Protocol Last Admin: 07/06/19 06:43 Dose: Not Given Documented by: Insulin Human Lispro (Humalog Kwikpen (Bkc)) 10 unit SC TIDCM [facility] Last Admin: 07/06/19 08:03 Dose: Not Given Documented by: Isosorbide Mononitrate (Imdur) 30 mg PO DAILY [facility] Lisinopril (Zestril) 20 mg PO DAILY [facility] Melatonin (Melatonin) 3 mg PO QHS PRN PRN PRN Reason: INSOMNIA Metoprolol Tartrate (Lopressor (Beta Emmanuel)) 50 mg PO BID [facility] Multivit/Ca Carb/B Cmplx/FA/Prenat (Nephrocaps, Renaphro) 1 capsule PO DAILY [facility] Multivitamins/Minerals ([facility]) [facility] Ondansetron HCl (Zofran) 4 mg IV Q8H PRN PRN PRN Reason: NAUSEA/VOMITING Pantoprazole Sodium (Protonix) 40 mg PO DAILY [facility] Promethazine HCl (Phenergan Tablet) 25 mg PO TID PRN PRN PRN Reason: VOMITING Sevelamer Carbonate (Renvela) 2,400 mg PO TIDCM [facility] Sodium Chloride () 10 - 40 ml IV UD PRN PRN Reason: SALINE FLUSH - Past Medical History Past Medical History (Chronic Problems): Chronic Problems (Last Reviewed 07/06/19 @ 09:26 by Eze Rivera MD) Chronic ulcer of left foot with fat layer exposed (Chronic) Ulcer of right foot with fat layer exposed (Chronic) Chronic ulcer of left foot with fat layer exposed (Chronic) Malnutrition (Chronic) Type 2 diabetes mellitus with diabetic polyneuropathy (Chronic) Tailor's bunion of right foot (Chronic) Bilateral foot wounds (Chronic) Tailor's bunion of left foot (Chronic) Peripheral vascular disease (Chronic) Toe fracture, right (Chronic) Non-pressure chronic ulcer of other part of right foot with fat layer exposed (Chronic) Non-pressure chronic ulcer of other part of left foot with fat layer exposed (Chronic) Type 1 diabetes mellitus (Chronic) Morbid obesity with BMI of 40.0-44.9, adult (Chronic) Noncompliance (Chronic) CHF (congestive heart failure) (Chronic) Abnormal stress test (Chronic) TIA (transient ischemic attack) (Chronic) Pulmonary hypertension (Chronic) Morbid obesity with BMI of 40.0-44.9, adult (Chronic) End stage renal disease on dialysis (Chronic) Chronic respiratory failure with hypoxia (Chronic) HTN (hypertension) (Chronic) Hyperlipidemia (Chronic) Diabetic neuropathy (Chronic) Anemia (Chronic) SELMA (obstructive sleep apnea) (Chronic) - Past Surgical History Surgical History: tonsillectomy, - - AV fistula in right arm. Vascular surgery intervention right lower extremity - Social History Smoking Status: Never smoker Alcohol: None - Family History Maternal Family History: Family History (Last Reviewed 07/06/19 @ 09:27 by Eze Rivera MD) Mother Hypertension Heart disease Diabetes Father Hypertension Heart disease Brother Heart disease History Items: Diabetes, Heart Disease, Hypertension, Renal Disease Paternal Family History: Family History (Last Reviewed 07/06/19 @ 09:27 by Eze Rivera MD) Mother Hypertension Heart disease Diabetes Father Hypertension Heart disease Brother Heart disease History Items: Cancer - liver, Diabetes, Heart Disease Review of Systems Constitutional: Reports: Anorexia, Chills, Fever, Weakness, Fatigue, - - Increased somnolence at home according to patient . Eyes: Denies: Vision Change HEENT: Reports: Nasal Congestion, Post Nasal Drip. Denies: Head Aches, Visual Changes Cardiovascular: Denies: Chest Pain, Edema, Syncope Respiratory: Reports: Cough, - Gastrointestinal: Reports: Nausea, Vomiting. Denies: Abdominal Pain, Constipation Genitourinary: Denies: Dysuria Musculoskeletal: Reports: - - Generalized weakness Skin: Reports: Wounds - Diabetic foot ulcers bilateral Neurological: Denies: Balance problems, Tremor, Seizures Endocrine: Reports: - - History of diabetes Hematologic/ Lymphatic: Reports: Anemia. Denies: Hx of blood clot Patient Problems: Active and Suspected Problems (Last Reviewed 07/06/19 @ 09:26 by Eze Rivera MD) Community acquired pneumonia (Acute) - Physical Exam Vitals/I&O's: Vital Signs Temp Pulse Resp BP Pulse Ox 98.3 F 69 18 158/64 H 99 07/06/19 06:40 07/06/19 06:40 07/06/19 06:40 07/06/19 06:40 07/06/19 08:04 Oxygen Flow Rate (L/min) 4 Oxygen Delivery Method Nasal Cannula Weight: 114.1 kg Body Mass Index (BMI) 39.3 Finger Stick Blood Glucose 191 Intake and Output for Last 24 Hours 07/04/19 07/05/19 07/06/19 23:59 23:59 23:59 Intake Total 270 / 270 Balance 270 / 270 General: Alert, Oriented x3, Cooperative, No apparent distress, - - Seen on dialysis Oral: Moist Mucosa Neck: Supple Lungs: Clear to auscultation Cardiovascular: Regular rate Abdomen: Bowel Sounds Present, Soft, Non Tender, Distended, Obese Extremities: No edema Musculoskeletal: No Muscle Wasting, - - Bilateral feet wrapped Psych/Mental Status: Normal Affect, Appropriate, Alert and oriented to time, place, person, mood and affect Laboratory Results 07/05/19 21:45: WBC 9.2, RBC 3.43 L, Hgb 10.2 L, Hct 32.2 L, MCV 93.9, MCH 29.7, MCHC 31.7 L, RDW Std Deviation 54.7 H, RDW Coeff of Roberto 16.3 H, Plt Count 176, MPV 10.2, Immature Gran % (Auto) 0.800, Neut % (Auto) 82.2 H, Lymph % (Auto) 5.8 L, [place] % (Auto) 7.5, Eos % (Auto) 3.0, Baso % (Auto) 0.7, Absolute Neuts (auto) 7.6, Absolute Lymphs (auto) 0.53 L, Nucleated RBC % 0, Differential Comment SEE COMMENT, Platelet Estimate ADEQUATE, RBC Morphology N CHROM, Anisocytosis 1+, Macrocytosis RARE 07/05/19 21:45: PT 16.1 H, INR 1.3, APTT 32.9 07/05/19 21:45: Sodium 135 L, Potassium 4.5, Chloride 100, Carbon Dioxide 25.0, Anion Gap 10, BUN 44 H, Creatinine 5.75 H, Estim Creat Clear Calc 14.37, Est GFR (MDRD) Af Amer 14 L, Est GFR (MDRD) Non-Af 11 L, BUN/Creatinine Ratio 7.7 L, Glucose 221 H, Calcium 8.6, Total Bilirubin 0.60, AST 14 L, ALT 21, Alkaline Phosphatase 127 H, Total Protein 7.2, Albumin 2.7 L, Globulin 4.5 H, Albumin/Globulin Ratio 0.6 L 07/05/19 21:45: Lactic Acid 1.3 07/06/19 05:37: WBC 7.9, RBC 3.25 L, Hgb 9.3 L, Hct 30.7 L, MCV 94.5 H, MCH 28.6, MCHC 30.3 L, RDW Std Deviation 57.0 H, RDW Coeff of Roberto 16.4 H, Plt Count 175, MPV 10.6, Immature Gran % (Auto) 0.800, Neut % (Auto) 74.2 H, Lymph % (Auto) 9.0 L, [place] % (Auto) 11.1 H, Eos % (Auto) 4.0, Baso % (Auto) 0.9, Absolute Neuts (auto) 5.9, Absolute Lymphs (auto) 0.71 L, Nucleated RBC % 0 07/06/19 05:37: Sodium 135 L, Potassium 4.3, Chloride 99, Carbon Dioxide 26.0, Anion Gap 10, BUN 44 H, Creatinine 5.97 H, Estim Creat Clear Calc 13.84, Est GFR (MDRD) Af Amer 13 L, Est GFR (MDRD) Non-Af 11 L, BUN/Creatinine Ratio 7.4 L, Glucose 124 H, Calcium 8.1 L 07/06/19 06:42: POC Glucose 119 H Current Medications Acetaminophen (Tylenol) 650 mg PO Q6H PRN PRN PRN Reason: Pain Score 1-10/Temp > 100.7 F Last Admin: 07/06/19 08:02 Dose: 650 mg Documented by: Albuterol Sulfate (Ventolin Aerosols) 2.5 mg INHALATION Q2H PRN PRN Reason: sob/wheezing Aspirin (Ecotrin) 81 mg PO DAILY [facility] Atorvastatin Calcium (Lipitor) 20 mg PO QHS [facility] Collagenase (Santyl) 1 applic TOPICAL DAILY [facility]; Protocol Cyclobenzaprine HCl (Flexeril) 10 mg PO TID PRN PRN PRN Reason: SPASMS Enoxaparin Sodium (Lovenox) 30 mg SC DAILY [facility] Fluticasone Propionate (Flonase Nasal [place]) 1 spray NASAL DAILY [facility] Furosemide (Lasix) 40 mg PO BID [facility] Gabapentin (Neurontin) 300 mg PO BID [facility] Glucagon () 1 mg IM .X1 PRN PRN Reason: Hypoglycemia Guaifenesin (Mucinex) 1,200 mg PO BID [facility] Hydralazine HCl (Apresoline Iv) 10 mg IV Q4H PRN PRN PRN Reason: SBP > 160 Levofloxacin (Levaquin Iv) 500 mg in 100 mls @ 100 mls/hr IV Q48H [facility] Dextrose (Dextrose 10%-Water) 250 mls @ 999 mls/hr IV .Q16M PRN; Protocol PRN Reason: HYPOGLYCEMIA Insulin Human Lispro (Humalog Kwikpen (Bkc)) 0 unit SC ACHS [facility]; Protocol Last Admin: 07/06/19 06:43 Dose: Not Given Documented by: Insulin Human Lispro (Humalog Kwikpen (Bkc)) 10 unit SC TIDCM [facility] Last Admin: 07/06/19 08:03 Dose: Not Given Documented by: Isosorbide Mononitrate (Imdur) 30 mg PO DAILY [facility] Lisinopril (Zestril) 20 mg PO DAILY [facility] Melatonin (Melatonin) 3 mg PO QHS PRN PRN PRN Reason: INSOMNIA Metoprolol Tartrate (Lopressor (Beta Emmanuel)) 50 mg PO BID [facility] Multivit/Ca Carb/B Cmplx/FA/Prenat (Nephrocaps, Renaphro) 1 capsule PO DAILY [facility] Multivitamins/Minerals (Healthy Eyes) [facility] Ondansetron HCl (Zofran) 4 mg IV Q8H PRN PRN PRN Reason: NAUSEA/VOMITING Pantoprazole Sodium (Protonix) 40 mg PO DAILY [facility] Promethazine HCl (Phenergan Tablet) 25 mg PO TID PRN PRN PRN Reason: VOMITING Sevelamer Carbonate (Renvela) 2,400 mg PO TIDCM [facility] Sodium Chloride () 10 - 40 ml IV UD PRN PRN Reason: SALINE FLUSH Assessment/Plan All Active Problems (Last Reviewed 07/06/19 @ 09:26 by Eze Rivera MD) Community acquired pneumonia (Acute) 1. ESRD due to diabetes hypertension noncompliance. Hemodialysis today. Currently receiving his treatment without incident. Next dialysis on Monday. 2. Upper respiratory infection treated for CAP. pancultured. Blood culture negative so far 3. Hypertension with elevated blood pressures. Resume home blood pressure medications. States compliant with his medications at home according to his 4. DM type II primary service management 5. History of diabetic foot ulcers follow-up followed by wound center 6. Anemia of chronic disease. Hemoglobin stable. TERESA on hemodialysis.
[2019-07-06] MEDS: Metoprolol Tartrate 50 MG Tablet PO ×2 (12:29→22:29)
[2019-07-06] MEDS: Lisinopril 20 MG Tablet PO (13:24)
--- NOTE | 2019-07-06 15:08 | DIALYSIS ---
Pt tolerated 4.25hr HD tx well. Net UF -3000ml. See flow record for tx data.
[2019-07-06] MEDS: SEVELAMER CARBONATE 800 MG TABLET 2400 MG PO (15:30)
[2019-07-06] MEDS: Multivitamin (Healthy Eyes) Capsule 1 CAP PO (15:31)
[2019-07-06] MEDS: Enoxaparin 30 MG/0.3 ML Syringe SC (15:31)
[2019-07-06] MEDS: Isosorbide Mononitrate 30 MG Tablet PO (15:31)
[2019-07-06] MEDS: Pantoprazole Sodium 40 MG Tablet PO (15:31)
[2019-07-06] MEDS: Aspirin E.C. 81 MG Tablet PO (15:31)
[2019-07-06] MEDS: guaiFENesin 1,200 MG Tablet 1200 MG PO ×2 (15:31→22:30)
[2019-07-06] MEDS: Gabapentin 300 MG Capsule PO ×2 (15:31→22:30)
[2019-07-06] MEDS: Furosemide 40 MG Tablet PO ×2 (15:31→22:29)
[2019-07-06] MEDS: Folic Acid/Vitamin B Comp W-C 1 Capsule 1 CAP PO (15:32)
[2019-07-06] MEDS: Heparin 10,000 UNITS/10 ML Vial 8000 UNITS IV (15:32)
[2019-07-06] MEDS: Insulin Lispro 100 UNIT/ML INSULN.PEN SC ×2 (15:36→22:35)
[2019-07-06] MEDS: Insulin Lispro 100 UNIT/ML INSULN.PEN 10 UNIT SC (15:37)
[2019-07-06 15:39] LABS: Mucous, Urine 0 SEEN /hpf (<or=2+); Red Blood Cells-Urine 0 SEEN /hpf (0-5)
[2019-07-06 15:43] LABS: Color, Urine Yellow (Yellow); Glucose, Dipstick 1000 mg/dl (Normal); Ketone-Dipstick Negative (Negative); Leukocyte Esterase-Dipstick 25 /ul (Negative); Nitrite-Dipstick Negative (Negative); Occult Blood-Urine 25 /ul (Negative); Protein-Dipstick 500 mg/dl (Negative); Urine Bilirubin Dipstick Negative (Negative); Urine Clarity Clear (Clear); Urine Urobilinogen Normal (Normal)
[2019-07-06 15:55] LABS: Squamous Epithelial Cells - UA 10-25 SEEN /hpf (0-5); White Blood Cells 10-25 SEEN /hpf (0-5)
[2019-07-06 15:56] LABS: Bacteria 1+ /hpf (None Seen); Yeast-Urine 2+ /hpf (None Seen)
[2019-07-06 16:15] LABS: Bedside Glucose 184 mg/dL (70-110)
[2019-07-06] MEDS: Collagenase 30gm Tube 1 APPLIC TOPICAL (17:08)
[2019-07-06] MEDS: Fluticasone 0.05% 1 SPRAY NASAL.SRY NASAL (17:09)
[2019-07-06] MEDS: hydrALAZINE 20 MG/ML Vial 10 MG IV (17:12)
--- NOTE | 2019-07-06 18:35 | PN_ITS ---
Patient Problems: Active and Suspected Problems (Last Reviewed 07/06/19 @ 09:26 by Eze Rivera MD) Community acquired pneumonia (Acute) Subjective: Patient was seen and examined today, he has no complaints of any shortness of breath or chest pain. Patient is being dialyzed today. Patient's white blood cell count was normal today, high temp today was 99.3. - Physical Exam Vitals/I&O's: Vital Signs Temp Pulse Resp BP Pulse Ox 99.1 F 84 16 164/66 H 98 07/06/19 18:08 07/06/19 18:08 07/06/19 18:08 07/06/19 18:08 07/06/19 18:08 Oxygen Flow Rate (L/min) 3 Oxygen Delivery Method Nasal Cannula Weight: 114.1 kg Body Mass Index (BMI) 39.3 Finger Stick Blood Glucose 191 Intake and Output for Last 24 Hours 07/04/19 07/05/19 07/06/19 23:59 23:59 23:59 Intake Total 470 / 470 Output Total 3000 / 3000 Balance -2530 / -2530 General: Alert, Oriented x3, Cooperative, No apparent distress, Well developed HEENT: Atraumatic, PERRLA, EOMI, Normocephalic Oral: Moist Mucosa Neck: Supple, Trachea Midline, Thyroid Normal Size and Texture Lungs: Clear to auscultation, No wheeze, No rales, Diminished Cardiovascular: Regular rate, Regular Rhythm, Normal S1, Normal S2, No murmurs, PMI Normal Abdomen: Bowel Sounds Present, Soft, Non Tender, Non-Distended, Obese Extremities: No clubbing, No cyanosis, Capillary Refill Less than 3 Seconds Skin: No rashes, No breakdown Musculoskeletal: No Tenderness to Palpation of Joints or Extremities Neurological: Cranial nerves II-XII grossly intact, Sensory exam intact to light touch and pain Psych/Mental Status: Normal Affect, Appropriate, Alert and oriented to time, place, person, mood and affect Laboratory Results 07/05/19 21:45: WBC 9.2, RBC 3.43 L, Hgb 10.2 L, Hct 32.2 L, MCV 93.9, MCH 29.7, MCHC 31.7 L, RDW Std Deviation 54.7 H, RDW Coeff of Roberto 16.3 H, Plt Count 176, MPV 10.2, Immature Gran % (Auto) 0.800, Neut % (Auto) 82.2 H, Lymph % (Auto) 5.8 L, [place] % (Auto) 7.5, Eos % (Auto) 3.0, Baso % (Auto) 0.7, Absolute Neuts (auto) 7.6, Absolute Lymphs (auto) 0.53 L, Nucleated RBC % 0, Differential Comment SEE COMMENT, Platelet Estimate ADEQUATE, RBC Morphology N CHROM, Anisocytosis 1+, Macrocytosis RARE 07/05/19 21:45: PT 16.1 H, INR 1.3, APTT 32.9 07/05/19 21:45: Sodium 135 L, Potassium 4.5, Chloride 100, Carbon Dioxide 25.0, Anion Gap 10, BUN 44 H, Creatinine 5.75 H, Estim Creat Clear Calc 14.37, Est GFR (MDRD) Af Amer 14 L, Est GFR (MDRD) Non-Af 11 L, BUN/Creatinine Ratio 7.7 L, Glucose 221 H, Calcium 8.6, Total Bilirubin 0.60, AST 14 L, ALT 21, Alkaline Phosphatase 127 H, Total Protein 7.2, Albumin 2.7 L, Globulin 4.5 H, Albumin/Globulin Ratio 0.6 L 07/05/19 21:45: Lactic Acid 1.3 07/06/19 05:37: WBC 7.9, RBC 3.25 L, Hgb 9.3 L, Hct 30.7 L, MCV 94.5 H, MCH 28.6, MCHC 30.3 L, RDW Std Deviation 57.0 H, RDW Coeff of Roberto 16.4 H, Plt Count 175, MPV 10.6, Immature Gran % (Auto) 0.800, Neut % (Auto) 74.2 H, Lymph % ( Auto) 9.0 L, [place] % (Auto) 11.1 H, Eos % (Auto) 4.0, Baso % (Auto) 0.9, Absolute Neuts (auto) 5.9, Absolute Lymphs (auto) 0.71 L, Nucleated RBC % 0 07/06/19 05:37: Sodium 135 L, Potassium 4.3, Chloride 99, Carbon Dioxide 26.0, Anion Gap 10, BUN 44 H, Creatinine 5.97 H, Estim Creat Clear Calc 13.84, Est GFR (MDRD) Af Amer 13 L, Est GFR (MDRD) Non-Af 11 L, BUN/Creatinine Ratio 7.4 L, Glucose 124 H, Calcium 8.1 L 07/06/19 06:42: POC Glucose 119 H 07/06/19 15:15: Urine Color Yellow, Urine Clarity Clear, Urine pH 7.0, Ur Specific [place] 1.010, Urine Protein 500 H, Urine Glucose (UA) 1000 H, Urine Ketones Negative, Urine Occult Blood 25 H, Urine Nitrite Negative, Urine Bilirubin Negative, Urine Urobilinogen Normal, Ur Leukocyte Esterase 25 H, Urine RBC 0 SEEN, Urine WBC 10-25 SEEN, Ur Squamous Epith Cells 10-25 SEEN, Urine Bacteria 1+, Urine Mucus 0 SEEN, Urine Yeast 2+ 07/06/19 15:25: POC Glucose 184 H Current Medications Acetaminophen (Tylenol) 650 mg PO Q6H PRN PRN PRN Reason: Pain Score 1-10/Temp > 100.7 F Last Admin: 07/06/19 14:20 Dose: 650 mg Documented by: Albuterol Sulfate (Ventolin Aerosols) 2.5 mg INHALATION Q2H PRN PRN Reason: sob/wheezing Aspirin (Ecotrin) 81 mg PO DAILY [facility] Last Admin: 07/06/19 15:31 Dose: 81 mg Documented by: Atorvastatin Calcium (Lipitor) 20 mg PO QHS [facility] Collagenase (Santyl) 1 applic TOPICAL DAILY [facility]; Protocol Last Admin: 07/06/19 17:08 Dose: 1 applicatio Documented by: Cyclobenzaprine HCl (Flexeril) 10 mg PO TID PRN PRN PRN Reason: SPASMS Enoxaparin Sodium (Lovenox) 30 mg SC DAILY [facility] Last Admin: 07/06/19 15:31 Dose: 30 mg Documented by: Fluticasone Propionate (Flonase Nasal [place]) 1 spray NASAL DAILY [facility] Last Admin: 07/06/19 17:09 Dose: 1 spray Documented by: Furosemide (Lasix) 40 mg PO BID [facility] Last Admin: 07/06/19 15:31 Dose: 40 mg Documented by: Gabapentin (Neurontin) 300 mg PO BID [facility] Last Admin: 07/06/19 15:31 Dose: 300 mg Documented by: Glucagon () 1 mg IM .X1 PRN PRN Reason: Hypoglycemia Guaifenesin (Mucinex) 1,200 mg PO BID [facility] Last Admin: 07/06/19 15:31 Dose: 1,200 mg Documented by: Hydralazine HCl (Apresoline Iv) 10 mg IV Q4H PRN PRN PRN Reason: SBP > 160 Last Admin: 07/06/19 17:12 Dose: 10 mg Documented by: Levofloxacin (Levaquin Iv) 500 mg in 100 mls @ 100 mls/hr IV Q48H [facility] Dextrose (Dextrose 10%-Water) 250 mls @ 999 mls/hr IV .Q16M PRN; Protocol PRN Reason: HYPOGLYCEMIA Insulin Human Lispro (Humalog Kwikpen (Bkc)) 0 unit SC ACHS [facility]; Protocol Last Admin: 07/06/19 15:36 Dose: 1 u Documented by: Insulin Human Lispro (Humalog Kwikpen (Bkc)) 10 unit SC TIDCM [facility] Last Admin: 07/06/19 15:37 Dose: 10 u Documented by: Isosorbide Mononitrate (Imdur) 30 mg PO DAILY [facility] Last Admin: 07/06/19 15:31 Dose: 30 mg Documented by: Lisinopril (Zestril) 20 mg PO DAILY [facility] Last Admin: 07/06/19 13:24 Dose: 20 mg Documented by: Melatonin (Melatonin) 3 mg PO QHS PRN PRN PRN Reason: INSOMNIA Metoprolol Tartrate (Lopressor (Beta Emmanuel)) 50 mg PO BID [facility] Last Admin: 07/06/19 12:29 Dose: 50 mg Documented by: Multivit/Ca Carb/B Cmplx/FA/Prenat (Nephrocaps, Renaphro) 1 capsule PO DAILY [facility] Last Admin: 07/06/19 15:32 Dose: 1 capsule Documented by: Multivitamins/Minerals ([facility]) [facility] Last Admin: 07/06/19 15:31 Dose: 1 capsule Documented by: Ondansetron HCl (Zofran) 4 mg IV Q8H PRN PRN PRN Reason: NAUSEA/VOMITING Pantoprazole Sodium (Protonix) 40 mg PO DAILY [facility] Last Admin: 07/06/19 15:31 Dose: 40 mg Documented by: Promethazine HCl (Phenergan Tablet) 25 mg PO TID PRN PRN PRN Reason: VOMITING Sevelamer Carbonate (Renvela) 2,400 mg PO TIDCM [facility] Last Admin: 07/06/19 15:30 Dose: 2,400 mg Documented by: Sodium Chloride () 10 - 40 ml IV UD PRN PRN Reason: SALINE FLUSH Medical Necessity - Tobacco Use Smoking Status: Never smoker Assessment/Plan All Active Problems (Last Reviewed 07/06/19 @ 09:26 by Eze Rivera MD) Community acquired pneumonia (Acute) #1 right lower lobe infiltrate-suspect community-acquired pneumonia, continue present antibiotic coverage, repeat checks x-ray tomorrow #2 end-stage renal disease-on dialysis #3 type 2 diabetes #4 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
[2019-07-06] MEDS: Albuterol 2.5 MG/3 ML VIAL.NEB. INHALATION (20:09)
[2019-07-06] MEDS: Atorvastatin Calcium 20 MG Tablet PO (22:30)
[2019-07-06] MEDS: oxyCODONE 5 MG Tablet PO (22:55)
[2019-07-06] MEDS: traZODone 50 MG Tablet PO (22:56)
[2019-07-06 23:01] LABS: Bedside Glucose 255 mg/dL (70-110)
[2019-07-07] VITALS (11 sets, daily range): BP systolic 143–189; BP diastolic 71–82; PULSE 64–83; RESP 16–20; TEMP 36.7–37.1; O2SAT 95–100
[2019-07-07] MEDS: Albuterol 2.5 MG/3 ML VIAL.NEB. INHALATION ×3 (00:10→14:52)
--- NOTE | 2019-07-07 05:00 | RAD_ITS ---
STUDY: X-RAY CHEST REASON FOR EXAM: Male, 48 years old. PNEUMONIA TECHNIQUE: AP COMPARISON: 07/05/2019 FINDINGS: Localized consolidation of the right lung base is increased since the prior study. There is no demonstrated pleural abnormality. Normal size cardiac silhouette for portable technique. Normal mediastinum and esmer. Normal visualized pulmonary arteries for portable technique. Normal visualized aortic arch and descending thoracic aorta. Normal visualized thoracic spine. Normal visualized ribs, clavicles, and shoulders. There is no demonstrated abnormality of the visualized soft tissue structures of the upper abdomen. RAD/Chest 1 View (Portable) IMPRESSION: Increasing right perihilar/lung base infiltrate. Electronically Signed: Sudarshan Iglesias MD ([place]) at 12:04 EST , Service support ,
[2019-07-07 06:26] LABS: Basophil# 0.04 X10^3/uL; Basophil% 0.7 % (0-1); Eosinophil# 0.34 X10^3/uL; Eosinophils% 5.7 % (0-5); Hematocrit 29.4 % (40-54); Hemoglobin 9.2 g/dL (13.0-16.5); Lymphocyte % 11.6 % (19-41); Mean Corp Hgb Conc 31.3 g/dL (32-36); Mean Corpuscular Hgb 29.7 pg (27.0-32.0); Mean Corpuscular Volume 94.8 fL (80-94); Monocyte# 0.88 X10^3/uL; Monocyte% 14.6 % (0-10); NRBC Flagged by Analyzer 0 % (0-5); Neutrophil % 66.6 % (47-70); Platelet Count 148 K/mm3 (150-450); RBC Distribution Width CV 16.4 % (11.6-14.6); RBC Distribution Width SD 56.6 fl (35.1-43.9)
[2019-07-07 07:05] LABS: Bedside Glucose 145 mg/dL (70-110)
[2019-07-07] MEDS: Metoprolol Tartrate 50 MG Tablet PO ×2 (09:21→21:15)
[2019-07-07] MEDS: Aspirin E.C. 81 MG Tablet PO (09:22)
[2019-07-07] MEDS: Multivitamin (Healthy Eyes) Capsule 1 CAP PO (09:22)
[2019-07-07] MEDS: SEVELAMER CARBONATE 800 MG TABLET 2400 MG PO ×3 (09:22→16:20)
[2019-07-07] MEDS: Furosemide 40 MG Tablet PO ×2 (09:23→21:14)
[2019-07-07] MEDS: Isosorbide Mononitrate 30 MG Tablet PO (09:23)
[2019-07-07] MEDS: Gabapentin 300 MG Capsule PO ×2 (09:23→21:16)
[2019-07-07] MEDS: guaiFENesin 1,200 MG Tablet 1200 MG PO ×2 (09:23→21:16)
[2019-07-07] MEDS: Pantoprazole Sodium 40 MG Tablet PO (09:23)
[2019-07-07] MEDS: Lisinopril 20 MG Tablet PO (09:24)
[2019-07-07] MEDS: Enoxaparin 30 MG/0.3 ML Syringe SC (09:24)
[2019-07-07] MEDS: Folic Acid/Vitamin B Comp W-C 1 Capsule 1 CAP PO (09:24)
[2019-07-07] MEDS: Fluticasone 0.05% 1 SPRAY NASAL.SRY NASAL (09:25)
[2019-07-07] MEDS: Insulin Lispro 100 UNIT/ML INSULN.PEN 10 UNIT SC ×3 (09:28→16:19)
[2019-07-07] MEDS: Collagenase 30gm Tube 1 APPLIC TOPICAL (11:17)
[2019-07-07 11:35] LABS: Bedside Glucose 200 mg/dL (70-110)
--- NOTE | 2019-07-07 12:10 | CT_ITS ---
STUDY: CT CHEST WITHOUT CONTRAST REASON FOR EXAM: Male, 48 years old. PNEUMONIA. CHF RADIATION DOSAGE (If Supplied By Facility): CTDIvol = ( 20.14 ) mGy, DLP = ( 761.20 ) mGycm TECHNIQUE: Transaxial imaging was performed without the administration of intravenous contrast material. Multiplanar coronal and sagittal images were reformatted. Individualized dose optimization techniques were used for this CT. COMPARISON: 03/16/2019 FINDINGS: Airspace consolidation with peribronchial nodular infiltrates involving the right middle lobe and right lower lobe are new since the prior study. Similar peribronchial infiltrates are seen in the posterior left upper lobe and right upper lobe. There is no demonstrated pleural abnormality. There is mild cardiac enlargement. There are calcifications of the coronary arteries. There are multiple small lymph nodes within the mediastinum, which are normal in size and morphology most compatible with reactive lymph hyperplasia. Normal hilar regions. There is prominence of the pulmonary hilar arteries without peripheral pulmonary vascular congestion, suggesting pulmonary hypertension. Normal aorta arch and descending thoracic aorta. There are multi-level degenerative changes of the thoracic spine. There is no demonstrated abnormality of the visualized upper abdomen. CT/Chest without Contrast IMPRESSION: 1. Multilobar peribronchial infiltrates compatible with history provided pneumonia. 2. No pleural effusion. 3. Dilated main pulmonary artery suggesting pulmonary hypertension. Electronically Signed: Sudarshan Iglesias MD ([place]) at 13:24 EST , Service support ,
[2019-07-07] MEDS: Insulin Lispro 100 UNIT/ML INSULN.PEN SC ×3 (12:18→21:20)
[2019-07-07] MEDS: Acetaminophen 325 MG Tablet 650 MG PO ×2 (15:00→21:14)
[2019-07-07] MEDS: oxyCODONE 5 MG Tablet PO ×2 (15:00→21:14)
[2019-07-07 16:30] LABS: Bedside Glucose 246 mg/dL (70-110)
--- NOTE | 2019-07-07 17:13 | PN_ITS ---
Patient Problems: Active and Suspected Problems (Last Reviewed 07/06/19 @ 09:26 by Eze Rivera MD) Community acquired pneumonia (Acute) Subjective: Patient was seen and examined today, he continues to require nasal cannula O2 at 2 L, patient does not complain of any chills or fever. I ordered a chest CT on the patient today, it showed infiltrates involving the right middle lobe and right lower lobe. Patient's white blood cell count remains normal, he is afebrile. - Physical Exam Vitals/I&O's: Vital Signs Temp Pulse Resp BP Pulse Ox 98.0 F 64 18 161/73 H 98 07/07/19 14:55 07/07/19 14:55 07/07/19 14:55 07/07/19 14:55 07/07/19 14:55 Oxygen Flow Rate (L/min) 2 Oxygen Delivery Method Nasal Cannula Weight: 114.2 kg Body Mass Index (BMI) 39.3 Finger Stick Blood Glucose 191 Intake and Output for Last 24 Hours 07/05/19 07/06/19 07/07/19 23:59 23:59 23:59 Intake Total 470 / 470 300 / 300 Output Total 3000 / 3000 175 / 175 Balance -2530 / -2530 125 / 125 General: Alert, Oriented x3, Cooperative, No apparent distress, Well developed, Well nourished HEENT: Atraumatic, PERRLA, EOMI, Normocephalic Oral: Moist Mucosa Neck: Supple, Trachea Midline, Thyroid Normal Size and Texture Lungs: Clear to auscultation, Normal air movement, No rhonchi, No wheeze Cardiovascular: Regular rate, Regular Rhythm, Normal S1, Normal S2, No murmurs, PMI Normal, No rub noted, No Gallop Abdomen: Bowel Sounds Present, Soft, Non Tender, Non-Distended, Obese Extremities: Capillary Refill Less than 3 Seconds Skin: No rashes, No breakdown Musculoskeletal: No Tenderness to Palpation of Joints or Extremities Neurological: Cranial nerves II-XII grossly intact, Neuro grossly intact, Sensory exam intact to light touch and pain, Coordination normal Psych/Mental Status: Normal Affect, Appropriate, Alert and oriented to time, place, person, mood and affect Laboratory Results 07/06/19 22:34: POC Glucose 255 H 07/07/19 05:55: WBC 6.0, RBC 3.10 L, Hgb 9.2 L, Hct 29.4 L, MCV 94.8 H, MCH 29.7, MCHC 31.3 L, RDW Std Deviation 56.6 H, RDW Coeff of Roberto 16.4 H, Plt Count 148 L, MPV 10.0, Immature Gran % (Auto) 0.800, Neut % (Auto) 66.6, Lymph % (Auto) 11.6 L, [place] % (Auto) 14.6 H, Eos % (Auto) 5.7 H, Baso % (Auto) 0.7, Absolute Neuts (auto) 4.0, Absolute Lymphs (auto) 0.70 L, Nucleated RBC % 0 07/07/19 06:56: POC Glucose 145 H 07/07/19 11:22: POC Glucose 200 H 07/07/19 16:17: POC Glucose 246 H Current Medications Acetaminophen (Tylenol) 650 mg PO Q6H PRN PRN PRN Reason: Pain Score 1-10/Temp > 100.7 F Last Admin: 07/07/19 15:00 Dose: 650 mg Documented by: Albuterol Sulfate (Ventolin Aerosols) 2.5 mg INHALATION Q2H PRN PRN Reason: sob/wheezing Last Admin: 07/07/19 14:52 Dose: 2.5 mg Documented by: Aspirin (Ecotrin) 81 mg PO DAILY [facility] Last Admin: 07/07/19 09:22 Dose: 81 mg Documented by: Atorvastatin Calcium (Lipitor) 20 mg PO QHS [facility] Last Admin: 07/06/19 22:30 Dose: 20 mg Documented by: Collagenase (Santyl) 1 applic TOPICAL DAILY [facility]; Protocol Last Admin: 07/07/19 11:17 Dose: 1 applicatio Documented by: Cyclobenzaprine HCl (Flexeril) 10 mg PO TID PRN PRN PRN Reason: SPASMS Enoxaparin Sodium (Lovenox) 30 mg SC DAILY [facility] Last Admin: 07/07/19 09:24 Dose: 30 mg Documented by: Fluticasone Propionate (Flonase Nasal [place]) 1 spray NASAL DAILY [facility] Last Admin: 07/07/19 09:25 Dose: 1 spray Documented by: Furosemide (Lasix) 40 mg PO BID [facility] Last Admin: 07/07/19 09:23 Dose: 40 mg Documented by: Gabapentin (Neurontin) 300 mg PO BID [facility] Last Admin: 07/07/19 09:23 Dose: 300 mg Documented by: Glucagon () 1 mg IM .X1 PRN PRN Reason: Hypoglycemia Guaifenesin (Mucinex) 1,200 mg PO BID [facility] Last Admin: 07/07/19 09:23 Dose: 1,200 mg Documented by: Hydralazine HCl (Apresoline Iv) 10 mg IV Q4H PRN PRN PRN Reason: SBP > 160 Last Admin: 07/06/19 17:12 Dose: 10 mg Documented by: Levofloxacin (Levaquin Iv) 500 mg in 100 mls @ 100 mls/hr IV Q48H [facility] Dextrose (Dextrose 10%-Water) 250 mls @ 999 mls/hr IV .Q16M PRN; Protocol PRN Reason: HYPOGLYCEMIA Insulin Human Lispro (Humalog Kwikpen (Bkc)) 0 unit SC ACHS [facility]; Protocol Last Admin: 07/07/19 16:19 Dose: 2 u Documented by: Insulin Human Lispro (Humalog Kwikpen (Bkc)) 10 unit SC TIDCM [facility] Last Admin: 07/07/19 16:19 Dose: 10 u Documented by: Isosorbide Mononitrate (Imdur) 30 mg PO DAILY [facility] Last Admin: 07/07/19 09:23 Dose: 30 mg Documented by: Lisinopril (Zestril) 20 mg PO DAILY [facility] Last Admin: 07/07/19 09:24 Dose: 20 mg Documented by: Melatonin (Melatonin) 3 mg PO QHS PRN PRN PRN Reason: INSOMNIA Metoprolol Tartrate (Lopressor (Beta Emmanuel)) 50 mg PO BID [facility] Last Admin: 07/07/19 09:21 Dose: 50 mg Documented by: Multivit/Ca Carb/B Cmplx/FA/Prenat (Nephrocaps, Renaphro) 1 capsule PO DAILY [facility] Last Admin: 07/07/19 09:24 Dose: 1 capsule Documented by: [facility]ivitamins/Minerals ([facility]) [facility] Last Admin: 07/07/19 09:22 Dose: 1 capsule Documented by: Ondansetron HCl (Zofran) 4 mg IV Q8H PRN PRN PRN Reason: NAUSEA/VOMITING Oxycodone HCl (Oxyir) 5 mg PO Q6H PRN PRN PRN Reason: Pain Score 1-10/10 Last Admin: 07/07/19 15:00 Dose: 5 mg Documented by: Pantoprazole Sodium (Protonix) 40 mg PO DAILY [facility] Last Admin: 07/07/19 09:23 Dose: 40 mg Documented by: Promethazine HCl (Phenergan Tablet) 25 mg PO TID PRN PRN PRN Reason: VOMITING Sevelamer Carbonate (Renvela) 2,400 mg PO TIDCM [facility] Last Admin: 07/07/19 16:20 Dose: 2,400 mg Documented by: Sodium Chloride () 10 - 40 ml IV UD PRN PRN Reason: SALINE FLUSH Trazodone HCl (Desyrel) 50 mg PO QHS [facility] Last Admin: 07/06/19 22:56 Dose: 50 mg Documented by: Medical Necessity - Tobacco Use Smoking Status: Never smoker Assessment/Plan All Active Problems (Last Reviewed 07/06/19 @ 09:26 by Eze Rivera MD) Community acquired pneumonia (Acute) #1 Community-acquired pneumonia right lower lobe and right middle lobe-continue present antibiotic coverage #2 end-stage renal disease-on dialysis #3 type 2 diabetes #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 Code Visit Inpatient E&M: 15680 Subs Hosp L2
[2019-07-07] MEDS: traZODone 50 MG Tablet PO (21:13)
[2019-07-07] MEDS: Atorvastatin Calcium 20 MG Tablet PO (21:15)
[2019-07-07] MEDS: levoFLOXacin IV 500 MG/100 ML BAG 100 MG IV (21:20)
[2019-07-07 21:35] LABS: Bedside Glucose 229 mg/dL (70-110)
[2019-07-08] VITALS (11 sets, daily range): BP systolic 135–166; BP diastolic 66–84; PULSE 72–85; RESP 17–22; TEMP 36.9–38.4; O2SAT 94–100
[2019-07-08 00:51] LABS: Bedside Glucose 286 mg/dL (70-110)
[2019-07-08] MEDS: Insulin Lispro 100 UNIT/ML INSULN.PEN SC ×4 (06:36→21:39)
[2019-07-08] MEDS: Acetaminophen 325 MG Tablet 650 MG PO ×2 (06:40→16:38)
[2019-07-08] MEDS: oxyCODONE 5 MG Tablet PO (06:41)
[2019-07-08 07:05] LABS: Bedside Glucose 354 mg/dL (70-110)
[2019-07-08 07:45] LABS: Absolute Lymphocyte Count 0.32 X10^3/uL (0.83-4.51); Absolute Neutrophil Count 8.6 X10^3/uL (2.0-7.7); Basophil# 0.02 X10^3/uL; Basophil% 0.2 % (0-1); Eosinophil# 0.01 X10^3/uL; Eosinophils% 0.1 % (0-5); Hematocrit 29.8 % (40-54); Hemoglobin 9.6 g/dL (13.0-16.5); Lymphocyte # 0.32 X10^3/ul (4.0); Lymphocyte % 3.3 % (19-41); Mean Corp Hgb Conc 32.2 g/dL (32-36); Mean Corpuscular Hgb 29.4 pg (27.0-32.0); Mean Corpuscular Volume 91.4 fL (80-94); Mean Platelet Vol. 10.1 fl (6.2-12.0); Monocyte% 8.2 % (0-10); NRBC Flagged by Analyzer 0 % (0-5); Neutrophil # 8.59 X10^3/uL (2.7-7.7); Neutrophil % 87.7 % (47-70); POSITIVE DIFFERENTIAL YES; Platelet Count 134 K/mm3 (150-450); RBC Distribution Width CV 15.9 % (11.6-14.6); RBC Distribution Width SD 53.4 fl (35.1-43.9); Red Blood Count 3.26 M/mm3 (4.6-6.2); White Blood Count 9.8 K/mm3 (4.4-11.0)
[2019-07-08 07:48] LABS: Differential Indicated SCAN CRITERIA MET
[2019-07-08 08:02] LABS: Albumin, Serum 2.6 g/dL (3.2-5.0); BUN 47 mg/dL (7-18); BUN/Creat Ratio 7.4 RATIO (10-20); Calcium,Total 8.1 mg/dL (8.5-10.1); Chloride 91 mmol/L (98-107); Creatinine, Serum 6.36 mg/dL (0.70-1.30); EST Glomerular Filtration Rate 10 mL/min (>60); Est Glom Filt Rate - Afr Amer 12 mL/min (>60); Estimated Creatinine Clearance 12.99 ml/min; Glucose 330 mg/dL (74-106); Phosphorus 4.4 mg/dL (2.5-4.9); Potassium 6.2 mmol/L (3.5-5.1); Sodium Level 125 mmol/L (136-145)
[2019-07-08] MEDS: Gabapentin 300 MG Capsule PO ×2 (08:16→21:35)
[2019-07-08] MEDS: Aspirin E.C. 81 MG Tablet PO (08:17)
[2019-07-08] MEDS: Multivitamin (Healthy Eyes) Capsule 1 CAP PO (08:17)
[2019-07-08] MEDS: Metoprolol Tartrate 50 MG Tablet PO ×2 (08:17→21:35)
[2019-07-08] MEDS: SEVELAMER CARBONATE 800 MG TABLET 2400 MG PO ×3 (08:17→16:39)
[2019-07-08] MEDS: Fluticasone 0.05% 1 SPRAY NASAL.SRY NASAL (08:17)
[2019-07-08] MEDS: Isosorbide Mononitrate 30 MG Tablet PO (08:18)
[2019-07-08] MEDS: Enoxaparin 30 MG/0.3 ML Syringe SC (08:18)
[2019-07-08] MEDS: Lisinopril 20 MG Tablet PO (08:18)
[2019-07-08] MEDS: Furosemide 40 MG Tablet PO ×2 (08:19→21:35)
[2019-07-08] MEDS: guaiFENesin 1,200 MG Tablet 1200 MG PO ×2 (08:19→21:48)
[2019-07-08] MEDS: Pantoprazole Sodium 40 MG Tablet PO (08:19)
[2019-07-08] MEDS: Folic Acid/Vitamin B Comp W-C 1 Capsule 1 CAP PO (08:20)
[2019-07-08] MEDS: Albuterol 2.5 MG/3 ML VIAL.NEB. INHALATION (08:45)
[2019-07-08] MEDS: Insulin Lispro 100 UNIT/ML INSULN.PEN 10 UNIT SC ×3 (09:45→16:39)
[2019-07-08 10:12] LABS: Potassium 5.2 mmol/L (3.5-5.1)
--- NOTE | 2019-07-08 11:05 | CASEMGMT ---
RN CM ACID STRENGTH INSPECTOR CM to room for initial transition planning/care coordination assessment. RN CM introduced self and role at [facility]. Pt/ voices understanding and consents to assessment at this time. Pt sitting up in recliner chair. Awake initially but groggy/fell asleep often during assessment. Would awaken easily but then fall asleep quickly again. in room visiting and answered many of the following assessment questions. Care providers, pharmacy, and demographics verified at this time. PCP: Dr Washburn Specialists: Dr Gregorio--nephrology, Dr Bravo--podiatry, [facility] weekly (Wednesdays) Dialysis @ [facility] on 6 AM Preferred Pharmacy: [facility] [place] Insurance: [employer] Dual Prescription Benefit: Yes Living Will/HPOA: Has both LW and Healthcare POA, who is his , [place]. Both are on file @ [facility]. LNOK: , [place] Gregorio Living Arrangements: Lives in mobile home, 3 steps to enter into home. Pt has difficulty with ADL's. Needs assist. assists and states 2 sons and DIL staying with pt to help. Has Accounting Auditor, Patricia Minor @ [facility] through Waiver Program. . SW, Agatha, made aware. states pt is supposed to be receiving aide services but there is no staffing available yet. states they still needs new Life Alert. States she still has the information, that they just need to call yet. Transportation: [employer] provides transportation to Dialysis. Family provides transportation to other appts. DME: Has the following DME: walker, rollator, BSC, cane, rails in bathroom, shower chair, raised toilet seat Oxygen @ 2 L/M through [employer]. states pt uses it as needed States has concentrator and portability. Has BIPAP. states pt is supposed to wear with O2 Bleed-in but states they are missing a piece for it. /pt instructed to call [employer] re: the missing piece if they are unable to locate to see if they can get a replacement piece. voices understanding. Pt has glucose device on JASMIN and has blood glucose meter at home. states no need for further DME at this time. HHC/SNF: [facility] and [facility]. Has used [facility] in the past. Reviewed PT/OT evals/notes and recommendations. Discussed options of HHC vs SNF. When asking pt if he wishes to go to a SNF, he started dozing off again. Pt did at one point state I dont' know which one to go to. states she let SW know what SNF pt decides on once she is able to talk with him when he is more awake. They were also made aware if pt decides on wanting to go home with HHC instead of to SNF to inform SW/CM as well. SW/CM to follow for further discharge planning/needs. PLAN: SNF vs Home w/HHC. to talk with pt further when he is more awake to discuss SNF options or HHC if pt decides he does not want to go to SNF. Macie NORWOODN RN CM
--- NOTE | 2019-07-08 11:19 | PN_ITS ---
Patient Problems: Active and Suspected Problems (Last Reviewed 07/06/19 @ 09:26 by Eze Rivera MD) Community acquired pneumonia (Acute) Subjective: Patient seen and examined. He remains short of breath and is now requiring up to 4 L of oxygen. He complained of feeling very tired and exhausted. He admits to still feeling short of breath but denies any chest pain, palpitations or dizziness, diarrhea vomiting. Review of symptoms otherwise negative. Patient is much more lethargic and states that he had to be set up. A chair to sleep during the night as that is how he was comfortable. Labs and vitals reviewed. Sodium is down to 125 and potassium is up to 6.2 today but with repeat came down to 5.2. He is due for dialysis tomorrow. Vitals/I&O's: Vital Signs Temp Pulse Resp BP Pulse Ox 100.1 F H 78 22 H 166/81 H 96 07/08/19 08:15 07/08/19 08:45 07/08/19 08:45 07/08/19 08:15 07/08/19 08:45 Oxygen Flow Rate (L/min) 4 Oxygen Delivery Method Venturi Mask Weight: 256 lb 9.889 oz Body Mass Index (BMI) 39.3 Finger Stick Blood Glucose 191 Intake and Output for Last 24 Hours 07/06/19 07/07/19 07/08/19 23:59 23:59 23:59 Intake Total 470 / 470 800 / 800 500 / 500 Output Total 3000 / 3000 175 / 175 Balance -2530 / -2530 625 / 625 500 / 500 General: Alert, Oriented x3, Cooperative, No apparent distress, Lethargic HEENT: Atraumatic, PERRLA, EOMI, Normocephalic Oral: Dry Mucosa Neck: Supple, No JVD, Negative Carotid Bruits Lungs: - - Decreased breath sounds bibasilarly with coarse crackles in mid and lower lung flores posteriorly. On 4 L of oxygen. Abdomen: Bowel Sounds Present, Soft, Non Tender, Non-Distended, No Hepato- splenomegaly, Obese Extremities: No clubbing, No cyanosis, No edema, Capillary Refill Less than 3 Seconds, - - mild bipedal edema (+1) Skin: No rashes, No breakdown Musculoskeletal: No Tenderness to Palpation of Joints or Extremities Lymphatic: No Cervical, Supraclavicular, or Inguinal Adenopathy Neurological: Cranial nerves II-XII grossly intact Psych/Mental Status: Normal Affect, Appropriate, Alert and oriented to time, place, person, mood and affect - lethargic Microbiology Past 72 Hours 07/06/19 15:15 Urine, Clean Catch Urine Culture - Final Mixed Gram Positive Organisms Laboratory Results 07/07/19 11:22: POC Glucose 200 H 07/07/19 16:17: POC Glucose 246 H 07/07/19 21:19: POC Glucose 229 H 07/08/19 00:42: POC Glucose 286 H 07/08/19 06:33: POC Glucose 354 H 07/08/19 07:35: WBC 9.8, RBC 3.26 L, Hgb 9.6 L, Hct 29.8 L, MCV 91.4, MCH 29.4, MCHC 32.2, RDW Std Deviation 53.4 H, RDW Coeff of Roberto 15.9 H, Plt Count 134 L, MPV 10.1, Immature Gran % (Auto) 0.500, Neut % (Auto) 87.7 H, Lymph % (Auto) 3.3 L, [place] % (Auto) 8.2, Eos % (Auto) 0.1, Baso % (Auto) 0.2, Absolute Neuts (auto) 8.6 H, Absolute Lymphs (auto) 0.32 L, Nucleated RBC % 0, Differential Comment COMMENT 07/08/19 07:35: Sodium 125 L, Potassium 6.2 H*, Chloride 91 L, Carbon Dioxide 25 .0, BUN 47 H, Creatinine 6.36 H, Estim Creat Clear Calc 12.99, Est GFR (MDRD) Af Amer 12 L, Est GFR (MDRD) Non-Af 10 L, BUN/Creatinine Ratio 7.4 L, Glucose 330 H , Calcium 8.1 L, Phosphorus 4.4, Albumin 2.6 L 07/08/19 09:55: Potassium 5.2 H Diagnostic Data Chest X-Ray 07/07/19 05:00 IMPRESSION: Increasing right perihilar/lung base infiltrate. Electronically Signed: Sudarshan Iglesias MD ([place]) at 12:04 EST , Service support , Chest CT 07/07/19 12:10 IMPRESSION: 1. Multilobar peribronchial infiltrates compatible with history provided pneumonia. 2. No pleural effusion. 3. Dilated main pulmonary artery suggesting pulmonary hypertension. Electronically Signed: Sudarshan Iglesias MD ([place]) at 13:24 EST , Service support , Current Medications Acetaminophen (Tylenol) 650 mg PO Q6H PRN PRN PRN Reason: Pain Score 1-10/Temp > 100.7 F Last Admin: 07/08/19 06:40 Dose: 650 mg Documented by: Albuterol Sulfate (Ventolin Aerosols) 2.5 mg INHALATION Q2H PRN PRN Reason: sob/wheezing Last Admin: 07/08/19 08:45 Dose: 2.5 mg Documented by: Aspirin (Ecotrin) 81 mg PO DAILY [facility] Last Admin: 07/08/19 08:17 Dose: 81 mg Documented by: Atorvastatin Calcium (Lipitor) 20 mg PO QHS [facility] Last Admin: 07/07/19 21:15 Dose: 20 mg Documented by: Collagenase (Santyl) 1 applic TOPICAL DAILY [facility]; Protocol Last Admin: 07/07/19 11:17 Dose: 1 applicatio Documented by: Cyclobenzaprine HCl (Flexeril) 10 mg PO TID PRN PRN PRN Reason: SPASMS Enoxaparin Sodium (Lovenox) 30 mg SC DAILY [facility] Last Admin: 07/08/19 08:18 Dose: 30 mg Documented by: Fluticasone Propionate (Flonase Nasal [place]) 1 spray NASAL DAILY [facility] Last Admin: 07/08/19 08:17 Dose: 1 spray Documented by: Furosemide (Lasix) 40 mg PO BID [facility] Last Admin: 07/08/19 08:19 Dose: 40 mg Documented by: Gabapentin (Neurontin) 300 mg PO BID [facility] Last Admin: 07/08/19 08:16 Dose: 300 mg Documented by: Glucagon () 1 mg IM .X1 PRN PRN Reason: Hypoglycemia Guaifenesin (Mucinex) 1,200 mg PO BID [facility] Last Admin: 07/08/19 08:19 Dose: 1,200 mg Documented by: Hydralazine HCl (Apresoline Iv) 10 mg IV Q4H PRN PRN PRN Reason: SBP > 160 Last Admin: 07/06/19 17:12 Dose: 10 mg Documented by: Levofloxacin (Levaquin Iv) 500 mg in 100 mls @ 100 mls/hr IV Q48H [facility] Last Infusion: 07/07/19 22:29 Dose: Infused Documented by: Dextrose (Dextrose 10%-Water) 250 mls @ 999 mls/hr IV .Q16M PRN; Protocol PRN Reason: HYPOGLYCEMIA Insulin Human Lispro (Humalog Kwikpen (Bkc)) 0 unit SC ACHS [facility]; Protocol Last Admin: 07/08/19 06:36 Dose: 4 u Documented by: Insulin Human Lispro (Humalog Kwikpen (Bkc)) 10 unit SC TIDCM [facility] Last Admin: 07/08/19 09:45 Dose: 10 u Documented by: Isosorbide Mononitrate (Imdur) 30 mg PO DAILY [facility] Last Admin: 07/08/19 08:18 Dose: 30 mg Documented by: Lisinopril (Zestril) 20 mg PO DAILY [facility] Last Admin: 07/08/19 08:18 Dose: 20 mg Documented by: Melatonin (Melatonin) 3 mg PO QHS PRN PRN PRN Reason: INSOMNIA Metoprolol Tartrate (Lopressor (Beta Emmanuel)) 50 mg PO BID [facility] Last Admin: 07/08/19 08:17 Dose: 50 mg Documented by: Multivit/Ca Carb/B Cmplx/FA/Prenat (Nephrocaps, Renaphro) 1 capsule PO DAILY [facility] Last Admin: 07/08/19 08:20 Dose: 1 capsule Documented by: Multivitamins/Minerals (Healthy Eyes) [facility] Last Admin: 07/08/19 08:17 Dose: 1 capsule Documented by: Ondansetron HCl (Zofran) 4 mg IV Q8H PRN PRN PRN Reason: NAUSEA/VOMITING Oxycodone HCl (Oxyir) 5 mg PO Q6H PRN PRN PRN Reason: Pain Score 1-10/10 Last Admin: 07/08/19 06:41 Dose: 5 mg Documented by: Pantoprazole Sodium (Protonix) 40 mg PO DAILY [facility] Last Admin: 07/08/19 08:19 Dose: 40 mg Documented by: Promethazine HCl (Phenergan Tablet) 25 mg PO TID PRN PRN PRN Reason: VOMITING Sevelamer Carbonate (Renvela) 2,400 mg PO TIDCM [facility] Last Admin: 07/08/19 08:17 Dose: 2,400 mg Documented by: Sodium Chloride () 10 - 40 ml IV UD PRN PRN Reason: SALINE FLUSH Trazodone HCl (Desyrel) 50 mg PO QHS [facility] Last Admin: 07/07/19 21:13 Dose: 50 mg Documented by: STROKE Vital Signs/Narrative: Vital Signs Temp Pulse Resp BP Pulse Ox 07/08/19 08:45 78 22 H 96 07/08/19 08:17 78 07/08/19 08:15 100.1 F H 79 20 H 166/81 H 96 Medical Necessity - Tobacco Use Smoking Status: Never smoker Assessment/Plan All Active Problems (Last Reviewed 07/06/19 @ 09:26 by Eze Rivera MD) Community acquired pneumonia (Acute) 1. Community acquired pneumonia * Patient is to remain short of breath and is requiring up to 4 L of oxygen today. Temperature peaked slightly to 100.1 Fahrenheit this morning. * He still has no leukocytosis. * Chest CT done yesterday showed multilobar peribronchial infiltrates compatible with history of pneumonia and prominence of pulmonary hilar arteries suggesting pulmonary hypertension. * Currently on IV levofloxacin. However since since patient still remains short of breath, and temperature is still not fully settled, will broaden antibiotics to IV zosyn * blood cultures pending; will check sputum culture, unable to do respiratory panel currently in hospital. * get stat ABG o/;a of worsening shortness of breath * titrate oxygen to maintain sats >90% * Continue breathing treatments. * 2. Acute on chronic hypoxic respiratory failure due to community-acquired pneumonia * As under 1. * Usually on 2 L at home and mainly at night but now he is on 4 L and still feels short of breath. * management as under 1. * 3. ESRD: On hemodialysis on Tuesdays and Saturdays. Dialysis tomorrow 4. Hyperkalemia: Potassium was 6.2 today and had come down to 5.2. Likely due to ESRD. For dialysis tomorrow 5. Pulmonary hypertension: Likely contributing to shortness of breath. Will monitor. 6. SELMA: On BiPAP at home. Continue BiPAP PRN. 7. Hypertension: on metoprolol and lisinopril. 8. Hyperlipidemia: On statin. 9. Type 2 diabetes mellitus: Insulin sliding scale. Accu-Cheks AC at bedtime. DVT prophylaxis: Lovenox, renally dosed. Code Visit Inpatient E&M: 68426 [facility] Hosp L3
--- NOTE | 2019-07-08 11:53 | PCM.PN.REN ---
Patient Problems: Active and Suspected Problems (Last Reviewed 07/06/19 @ 09:26 by Eze Rivera MD) Community acquired pneumonia (Acute) Subjective: Complains of productive cough with greenish phlegm. Complains of fever and chills. Potassium was 6 on repeat was improved down to 5.2. Likely hemolyzed specimen. Patient is due for hemodialysis tomorrow his chronic schedule. - Physical Exam Vitals/I&O's: Vital Signs Temp Pulse Resp BP Pulse Ox 100.1 F H 78 22 H 166/81 H 96 07/08/19 08:15 07/08/19 08:45 07/08/19 08:45 07/08/19 08:15 07/08/19 08:45 Oxygen Flow Rate (L/min) 4 Oxygen Delivery Method Venturi Mask Weight: 116.4 kg Body Mass Index (BMI) 39.3 Finger Stick Blood Glucose 191 Intake and Output for Last 24 Hours 07/06/19 07/07/19 07/08/19 23:59 23:59 23:59 Intake Total 470 / 470 800 / 800 500 / 500 Output Total 3000 / 3000 175 / 175 Balance -2530 / -2530 625 / 625 500 / 500 General: Alert, Oriented x3, Cooperative, No apparent distress Lungs: Clear to auscultation, Diminished Cardiovascular: Regular rate, Murmur Abdomen: Bowel Sounds Present, Soft, Non Tender, Non-Distended, Obese Extremities: Edema - Mild, chronic Skin: No rashes Neurological: - - Somnolent Psych/Mental Status: - - Somnolent, Alert and oriented to time, place, person, mood and affect Microbiology Past 72 Hours 07/06/19 15:15 Urine, Clean Catch Urine Culture - Final Mixed Gram Positive Organisms Laboratory Results 07/07/19 16:17: POC Glucose 246 H 07/07/19 21:19: POC Glucose 229 H 07/08/19 00:42: POC Glucose 286 H 07/08/19 06:33: POC Glucose 354 H 07/08/19 07:35: WBC 9.8, RBC 3.26 L, Hgb 9.6 L, Hct 29.8 L, MCV 91.4, MCH 29.4, MCHC 32.2, RDW Std Deviation 53.4 H, RDW Coeff of Roberto 15.9 H, Plt Count 134 L, MPV 10.1, Immature Gran % (Auto) 0.500, Neut % (Auto) 87.7 H, Lymph % (Auto) 3.3 L, [place] % (Auto) 8.2, Eos % (Auto) 0.1, Baso % (Auto) 0.2, Absolute Neuts (auto) 8.6 H, Absolute Lymphs (auto) 0.32 L, Nucleated RBC % 0, Differential Comment COMMENT 07/08/19 07:35: Sodium 125 L, Potassium 6.2 H*, Chloride 91 L, Carbon Dioxide 25.0, BUN 47 H, Creatinine 6.36 H, Estim Creat Clear Calc 12.99, Est GFR (MDRD) Af Amer 12 L, Est GFR (MDRD) Non-Af 10 L, BUN/Creatinine Ratio 7.4 L, Glucose 330 H, Calcium 8.1 L, Phosphorus 4.4, Albumin 2.6 L 07/08/19 09:55: Potassium 5.2 H Current Medications Acetaminophen (Tylenol) 650 mg PO Q6H PRN PRN PRN Reason: Pain Score 1-10/Temp > 100.7 F Last Admin: 07/08/19 06:40 Dose: 650 mg Documented by: Albuterol Sulfate (Ventolin Aerosols) 2.5 mg INHALATION Q2H PRN PRN Reason: sob/wheezing Last Admin: 07/08/19 08:45 Dose: 2.5 mg Documented by: Aspirin (Ecotrin) 81 mg PO DAILY [facility] Last Admin: 07/08/19 08:17 Dose: 81 mg Documented by: Atorvastatin Calcium (Lipitor) 20 mg PO QHS [facility] Last Admin: 07/07/19 21:15 Dose: 20 mg Documented by: Collagenase (Santyl) 1 applic TOPICAL DAILY [facility]; Protocol Last Admin: 07/07/19 11:17 Dose: 1 applicatio Documented by: Cyclobenzaprine HCl (Flexeril) 10 mg PO TID PRN PRN PRN Reason: SPASMS Enoxaparin Sodium (Lovenox) 30 mg SC DAILY [facility] Last Admin: 07/08/19 08:18 Dose: 30 mg Documented by: Fluticasone Propionate (Flonase Nasal [place]) 1 spray NASAL DAILY [facility] Last Admin: 07/08/19 08:17 Dose: 1 spray Documented by: Furosemide (Lasix) 40 mg PO BID [facility] Last Admin: 07/08/19 08:19 Dose: 40 mg Documented by: Gabapentin (Neurontin) 300 mg PO BID [facility] Last Admin: 07/08/19 08:16 Dose: 300 mg Documented by: Glucagon () 1 mg IM .X1 PRN PRN Reason: Hypoglycemia Guaifenesin (Mucinex) 1,200 mg PO BID [facility] Last Admin: 07/08/19 08:19 Dose: 1,200 mg Documented by: Hydralazine HCl (Apresoline Iv) 10 mg IV Q4H PRN PRN PRN Reason: SBP > 160 Last Admin: 07/06/19 17:12 Dose: 10 mg Documented by: Dextrose (Dextrose 10%-Water) 250 mls @ 999 mls/hr IV .Q16M PRN; Protocol PRN Reason: HYPOGLYCEMIA Piperacillin Sod/Tazobactam (Sod 3.375 gm/ Sodium Chloride) 50 mls @ 12.5 mls/hr IV Q8 [facility] Insulin Human Lispro (Humalog Kwikpen (Bkc)) 0 unit SC ACHS [facility]; Protocol Last Admin: 07/08/19 06:36 Dose: 4 u Documented by: Insulin Human Lispro (Humalog Kwikpen (Bkc)) 10 unit SC TIDCM [facility] Last Admin: 07/08/19 09:45 Dose: 10 u Documented by: Isosorbide Mononitrate (Imdur) 30 mg PO DAILY [facility] Last Admin: 07/08/19 08:18 Dose: 30 mg Documented by: Lisinopril (Zestril) 20 mg PO DAILY [facility] Last Admin: 07/08/19 08:18 Dose: 20 mg Documented by: Melatonin (Melatonin) 3 mg PO QHS PRN PRN PRN Reason: INSOMNIA Metoprolol Tartrate (Lopressor (Beta Emmanuel)) 50 mg PO BID [facility] Last Admin: 07/08/19 08:17 Dose: 50 mg Documented by: Multivit/Ca Carb/B Cmplx/FA/Prenat (Nephrocaps, Renaphro) 1 capsule PO DAILY [facility] Last Admin: 07/08/19 08:20 Dose: 1 capsule Documented by: [facility]ivitamins/Minerals ([facility]) [facility] Last Admin: 07/08/19 08:17 Dose: 1 capsule Documented by: Ondansetron HCl (Zofran) 4 mg IV Q8H PRN PRN PRN Reason: NAUSEA/VOMITING Oxycodone HCl (Oxyir) 5 mg PO Q6H PRN PRN PRN Reason: Pain Score 1-10/10 Last Admin: 07/08/19 06:41 Dose: 5 mg Documented by: Pantoprazole Sodium (Protonix) 40 mg PO DAILY [facility] Last Admin: 07/08/19 08:19 Dose: 40 mg Documented by: Promethazine HCl (Phenergan Tablet) 25 mg PO TID PRN PRN PRN Reason: VOMITING Sevelamer Carbonate (Renvela) 2,400 mg PO TIDCM [facility] Last Admin: 07/08/19 08:17 Dose: 2,400 mg Documented by: Sodium Chloride () 10 - 40 ml IV UD PRN PRN Reason: SALINE FLUSH Trazodone HCl (Desyrel) 50 mg PO QHS [facility] Last Admin: 07/07/19 21:13 Dose: 50 mg Documented by: Medical Necessity - Tobacco Use Smoking Status: Never smoker Assessment/Plan All Active Problems (Last Reviewed 07/06/19 @ 09:26 by Eze Rivera MD) Community acquired pneumonia (Acute) 1. ESRD due to diabetes hypertension dialysis next on Monday. 2. CAP right middle and lower lobe. Renal dose IV antibiotics. Blood culture negative so far 3. Hypertension with elevated blood pressures. Resume home blood pressure medications. 4. DM type II with elevated blood sugars, primary service management 5. History of diabetic foot ulcers follow-up followed by wound center 6. Anemia of chronic disease. Hemoglobin stable. TERESA on hemodialysis. 7. Hyperkalemia K 6.2 to 5.2 on repeat. Follow low potassium diet. 8. Hyponatremia correct with dialysis and sugar control
[2019-07-08 12:06] LABS: Bedside Glucose 259 mg/dL (70-110)
[2019-07-08 12:45] LABS: Base Excess -1 mmol/L (-2 to +2); Blood Gas Specimen Type ART; O2 Delivery Device Nasal Can; PO2 94 mmHG (75-100); SITE L Brachial; SO2 97 % (95-99); Time Given 1237; Total Carbon Dioxide 26 mmol/L; pCO2 45.4 mmHg (35-45); pH 7.35 (7.35-7.45)
[2019-07-08] MEDS: 0.9% Saline Lock 10 ML Syringe IV (13:45)
--- NOTE | 2019-07-08 14:42 | CASEMGMT ---
Per RN CM patient's said patient may be agreeable to going to a SNF, but she does not know which one he would prefer. She said she will talk with him. SW went back to the room 2 times now. The first time patient's said he just woke up and they have not talked yet. The second time both patient and his were sleeping. SW will check back again to see which SNF they prefer. Agatha SHEETS MSW
--- NOTE | 2019-07-08 15:15 | CASEMGMT ---
Patient has a Healthcare LW and a Healthcare POA on file at [facility]. Agatha SHEETS MSW
--- NOTE | 2019-07-08 15:16 | NURSING ---
wound photo: left foot
--- NOTE | 2019-07-08 15:17 | NURSING ---
wound photo: right lateral foot
[2019-07-08] MEDS: proMETHazine 25 MG Tablet PO (16:44)
[2019-07-08 16:51] LABS: Bedside Glucose 165 mg/dL (70-110)
[2019-07-08] MEDS: traZODone 50 MG Tablet PO (21:35)
[2019-07-08] MEDS: Atorvastatin Calcium 20 MG Tablet PO (21:35)
[2019-07-08 21:51] LABS: Bedside Glucose 150 mg/dL (70-110)
[2019-07-09] VITALS (17 sets, daily range): BP systolic 127–193; BP diastolic 51–88; PULSE 63–96; RESP 16–26; TEMP 36.5–38.8; O2SAT 90–99
[2019-07-09] MEDS: Acetaminophen 325 MG Tablet 650 MG PO ×2 (02:38→15:33)
[2019-07-09 06:18] LABS: Hematocrit 27.2 % (40-54); Hemoglobin 8.6 g/dL (13.0-16.5); Mean Corp Hgb Conc 31.6 g/dL (32-36); Mean Corpuscular Hgb 28.9 pg (27.0-32.0); Mean Corpuscular Volume 91.3 fL (80-94); Platelet Count 129 K/mm3 (150-450); RBC Distribution Width CV 16.1 % (11.6-14.6); RBC Distribution Width SD 53.1 fl (35.1-43.9); Red Blood Count 2.98 M/mm3 (4.6-6.2); White Blood Count 7.6 K/mm3 (4.4-11.0)
[2019-07-09 06:19] LABS: Absolute Lymphocyte Count 0.31 X10^3/uL (0.83-4.51); Absolute Neutrophil Count 6.8 X10^3/uL (2.0-7.7); Basophil# 0.03 X10^3/uL; Basophil% 0.4 % (0-1); Eosinophil# 0.01 X10^3/uL; Eosinophils% 0.1 % (0-5); Lymphocyte # 0.31 X10^3/ul (4.0); Lymphocyte % 4.1 % (19-41); Monocyte# 0.45 X10^3/uL; Monocyte% 5.9 % (0-10); NRBC Flagged by Analyzer 0 % (0-5); Neutrophil # 6.75 X10^3/uL (2.7-7.7); Neutrophil % 89.1 % (47-70); POSITIVE DIFFERENTIAL YES; POSITIVE MORPHOLOGY YES
[2019-07-09 06:50] LABS: Differential Indicated SCAN CRITERIA MET
[2019-07-09 06:51] LABS: Albumin, Serum 2.5 g/dL (3.2-5.0); BUN 61 mg/dL (7-18); BUN/Creat Ratio 8.3 RATIO (10-20); Calcium,Total 8.2 mg/dL (8.5-10.1); Chloride 87 mmol/L (98-107); Creatinine, Serum 7.38 mg/dL (0.70-1.30); EST Glomerular Filtration Rate 8 mL/min (>60); Est Glom Filt Rate - Afr Amer 10 mL/min (>60); Glucose 183 mg/dL (74-106); Phosphorus 5.1 mg/dL (2.5-4.9); Potassium 6.4 mmol/L (3.5-5.1); Sodium Level 124 mmol/L (136-145)
[2019-07-09 07:05] LABS: Differential Comment SCANNED
[2019-07-09 08:41] LABS: Bedside Glucose 166 mg/dL (70-110)
[2019-07-09 09:01] LABS: Potassium 5.8 mmol/L (3.5-5.1)
--- NOTE | 2019-07-09 09:22 | PCM.PN.REN ---
Patient Problems: Active and Suspected Problems (Last Reviewed 07/06/19 @ 09:26 by Eze Rivera MD) Community acquired pneumonia (Acute) Subjective: seen on dialysis, potassium elevated at 6.4. BP elevated. Attempt fluid removal as tolerated. Episode of CP with EKG ordered. Currently on bipap - Physical Exam Vitals/I&O's: Vital Signs Temp Pulse Resp BP Pulse Ox 98.7 F 78 20 H 153/87 H 98 07/09/19 04:47 07/09/19 08:00 07/09/19 08:00 07/09/19 02:35 07/09/19 08:00 Oxygen Flow Rate (L/min) 3 Oxygen Delivery Method Bi-pap Weight: 116.4 kg Body Mass Index (BMI) 39.3 Finger Stick Blood Glucose 191 Intake and Output for Last 24 Hours 07/07/19 07/08/19 07/09/19 23:59 23:59 23:59 Intake Total 800 / 800 1250 / 1250 50 / 50 Output Total 175 / 175 Balance 625 / 625 1250 / 1250 50 / 50 General: Alert, Cooperative, - - on bipap Lungs: Clear to auscultation Cardiovascular: Regular rate Abdomen: Bowel Sounds Present, Soft, Obese Extremities: Edema Microbiology Past 72 Hours 07/05/19 23:30 Blood Culture (Wb) - Arm Left Blood Culture - Preliminary No growth in 48 hours. 07/05/19 21:45 Blood Culture (Wb) - Right Wrist Blood Culture - Preliminary No growth in 48 hours. 07/06/19 15:15 Urine, Clean Catch Urine Culture - Final Mixed Gram Positive Organisms Laboratory Results 07/08/19 09:55: Potassium 5.2 H 07/08/19 11:51: POC Glucose 259 H 07/08/19 12:39: Specimen Type ART, Sample Site L Brachial, pH 7.35, Bicarbonate Actual 25.0, POC Total CO2 26, Base Excess -1, O2 Saturation 97, ABG pCO2 45.4 H, ABG pO2 94, O2 Delivery Device Nasal Can, Liter Flow 4.0, Blood Gas Notified Whom NINA LOMELI, Blood Gas Notified Time 4001 07/08/19 16:35: POC Glucose 165 H 07/08/19 21:38: POC Glucose 150 H 07/09/19 05:25: Sodium 124 L, Potassium 6.4 H*, Chloride 87 L, Carbon Dioxide 24.0, BUN 61 H, Creatinine 7.38 H, Estim Creat Clear Calc 11.20, Est GFR (MDRD) Af Amer 10 L, Est GFR (MDRD) Non-Af 8 L, BUN/Creatinine Ratio 8.3 L, Glucose 183 H, Calcium 8.2 L, Phosphorus 5.1 H, Albumin 2.5 L 07/09/19 05:25: WBC 7.6, RBC 2.98 L, Hgb 8.6 L, Hct 27.2 L, MCV 91.3, MCH 28.9, MCHC 31.6 L, RDW Std Deviation 53.1 H, RDW Coeff of Roberto 16.1 H, Plt Count 129 L, MPV 11.0, Immature Gran % (Auto) 0.400, Neut % (Auto) 89.1 H, Lymph % (Auto) 4.1 L, [place] % (Auto) 5.9, Eos % (Auto) 0.1, Baso % (Auto) 0.4, Absolute Neuts (auto) 6.8, Absolute Lymphs (auto) 0.31 L, Nucleated RBC % 0, Differential Comment SCANNED 07/09/19 08:00: POC Glucose 166 H 07/09/19 08:47: Potassium 5.8 H 07/09/19 08:47: Troponin I < 0.015 Current Medications Acetaminophen (Tylenol) 650 mg PO Q6H PRN PRN PRN Reason: Pain Score 1-10/Temp > 100.7 F Last Admin: 07/09/19 02:38 Dose: 650 mg Documented by: Albuterol Sulfate (Ventolin Aerosols) 2.5 mg INHALATION Q2H PRN PRN Reason: sob/wheezing Last Admin: 07/08/19 08:45 Dose: 2.5 mg Documented by: Aspirin (Ecotrin) 81 mg PO DAILY [facility] Last Admin: 07/08/19 08:17 Dose: 81 mg Documented by: Atorvastatin Calcium (Lipitor) 20 mg PO QHS [facility] Last Admin: 07/08/19 21:35 Dose: 20 mg Documented by: Cyclobenzaprine HCl (Flexeril) 10 mg PO TID PRN PRN PRN Reason: SPASMS Enoxaparin Sodium (Lovenox) 30 mg SC DAILY [facility] Last Admin: 07/08/19 08:18 Dose: 30 mg Documented by: Fluticasone Propionate (Flonase Nasal [place]) 1 spray NASAL DAILY [facility] Last Admin: 07/08/19 08:17 Dose: 1 spray Documented by: Furosemide (Lasix) 40 mg PO BID [facility] Last Admin: 07/08/19 21:35 Dose: 40 mg Documented by: Gabapentin (Neurontin) 300 mg PO BID [facility] Last Admin: 07/08/19 21:35 Dose: 300 mg Documented by: Glucagon () 1 mg IM .X1 PRN PRN Reason: Hypoglycemia Guaifenesin (Mucinex) 1,200 mg PO BID [facility] Last Admin: 07/08/19 21:48 Dose: 1,200 mg Documented by: Hydralazine HCl (Apresoline Iv) 10 mg IV Q4H PRN PRN PRN Reason: SBP > 160 Last Admin: 07/06/19 17:12 Dose: 10 mg Documented by: Dextrose (Dextrose 10%-Water) 250 mls @ 999 mls/hr IV .Q16M PRN; Protocol PRN Reason: HYPOGLYCEMIA Piperacillin Sod/Tazobactam (Sod 3.375 gm/ Sodium Chloride) 50 mls @ 12.5 mls/hr IV Q12 [facility] Last Infusion: 07/09/19 01:47 Dose: Infused Documented by: Sodium Chloride () 250 mls @ 15 mls/hr IV .[id number] PRN PRN Reason: Saline Flush Sodium Chloride () 250 mls @ 15 mls/hr IV .[id number] PRN PRN Reason: Additional IVPB Infusion Insulin Human Lispro (Humalog Kwikpen (Bkc)) 0 unit SC ACHS [facility]; Protocol Last Admin: 07/08/19 21:39 Dose: 1 u Documented by: Insulin Human Lispro (Humalog Kwikpen (Bkc)) 10 unit SC TIDCM [facility] Last Admin: 07/08/19 16:39 Dose: 10 u Documented by: Isosorbide Mononitrate (Imdur) 30 mg PO DAILY [facility] Last Admin: 07/08/19 08:18 Dose: 30 mg Documented by: Lisinopril (Zestril) 20 mg PO DAILY [facility] Last Admin: 07/08/19 08:18 Dose: 20 mg Documented by: Melatonin (Melatonin) 3 mg PO QHS PRN PRN PRN Reason: INSOMNIA Metoprolol Tartrate (Lopressor (Beta Emmanuel)) 50 mg PO BID [facility] Last Admin: 07/08/19 21:35 Dose: 50 mg Documented by: Multivit/Ca Carb/B Cmplx/FA/Prenat (Nephrocaps, Renaphro) 1 capsule PO DAILY [facility] Last Admin: 07/08/19 08:20 Dose: 1 capsule Documented by: [facility]ivitamins/Minerals ([facility]) [facility] Last Admin: 07/08/19 08:17 Dose: 1 capsule Documented by: Ondansetron HCl (Zofran) 4 mg IV Q8H PRN PRN PRN Reason: NAUSEA/VOMITING Oxycodone HCl (Oxyir) 5 mg PO Q6H PRN PRN PRN Reason: Pain Score 1-10/10 Last Admin: 07/08/19 06:41 Dose: 5 mg Documented by: Pantoprazole Sodium (Protonix) 40 mg PO DAILY [facility] Last Admin: 07/08/19 08:19 Dose: 40 mg Documented by: Promethazine HCl (Phenergan Tablet) 25 mg PO TID PRN PRN PRN Reason: VOMITING Last Admin: 07/08/19 16:44 Dose: 25 mg Documented by: Sevelamer Carbonate (Renvela) 2,400 mg PO TIDCM [facility] Last Admin: 07/08/19 16:39 Dose: 2,400 mg Documented by: Sodium Chloride () 10 - 40 ml IV UD PRN PRN Reason: SALINE FLUSH Last Admin: 07/08/19 13:45 Dose: 10 ml Documented by: Trazodone HCl (Desyrel) 50 mg PO QHS [facility] Last Admin: 07/08/19 21:35 Dose: 50 mg Documented by: Medical Necessity - Tobacco Use Smoking Status: Never smoker Assessment/Plan All Active Problems (Last Reviewed 07/06/19 @ 09:26 by Eze Rivera MD) Community acquired pneumonia (Acute) 1. ESRD due to diabetes hypertension seen on dialysis. 2. CAP right middle and lower lobe. Renal dose IV antibiotics. Blood culture negative so far 3. Hypertension with elevated blood pressures. Resume home blood pressure medications before dialysis . 4. Anemia of chronic disease. Hemoglobin stable. TERESA on hemodialysis. 5. Hyperkalemia correct with dialysis
--- NOTE | 2019-07-09 09:26 | EKG12_ITS ---
Test Reason : CP Blood Pressure : / mmHG Vent. Rate : 080 BPM Atrial Rate : 080 BPM P-R Int : 136 ms QRS Dur : 080 ms QT Int : 386 ms P-R-T Axes : 006 024 140 degrees QTc Int : 445 ms Sinus rhythm with Premature supraventricular complexes ST & T wave abnormality, consider lateral ischemia Abnormal ECG No previous ECGs available Confirmed by COMPA ALCALA [id number]), slot editor DEREK KEARNS ([id number] on 07/11/2019 11:14:27 AM Referred By: YAIMA Confirmed By:COMPA ALCALA
--- NOTE | 2019-07-09 10:15 | CASEMGMT ---
SW went to check in with patient this am to see what facility he would prefer. He was sleeping, on bi-pap, and dialysis. His did wake up and SW asked her about it. She said she has not been able to keep him awake to talk with him about SNF. SW asked if he would want to go back to [facility] or [facility] as he has been there before. She said possibly, but she is not sure. SW told her SW needs to know as his insurance needs to approve and this can take some time. SW told her SW will check back again later. Agatha SHEETS MSW
[2019-07-09 12:11] LABS: Bedside Glucose 134 mg/dL (70-110)
--- NOTE | 2019-07-09 12:33 | CASEMGMT ---
This RN CM to room to see if pt/ have made a decision on SNF at this time. Pt is still sleeping on bipap and getting dialysis at this time. states she was waiting for pt to wake up to make a decision and is she is aware that Minoo VILLALOBOS has checked in this am and pt has been sleeping most of day, voices understanding. then states that they would be fine with [facility] or [facility] at this time and states no preference for either. Minoo VILLALOBOS aware, voices understanding at this time. SStaten RN CM
--- NOTE | 2019-07-09 12:34 | PCM.PN.HOSP ---
Patient Problems: Active and Suspected Problems (Last Reviewed 07/06/19 @ 09:26 by Eze Rivera MD) Community acquired pneumonia (Acute) Subjective: Patient seen and examined. He still complained of not feeling well and said he was short of breath and also felt like he was having chest pain. Chest pain was mainly pleuritic as it worsened with breathing in and out of he was on BiPAP. Patient was sitting slouched in his chair as he states he cannot lie flat and sleep in bed. He denied any nausea vomiting or diarrhea. He also denies any palpitations or dizziness. Review of symptoms otherwise negative. Labs and vitals reviewed. Potassium is 5.8 today and sodium is 124. He is due for dialysis today. Hemoglobin noted to drop to 8.6. Vitals/I&O's: Vital Signs Temp Pulse Resp BP Pulse Ox 98.2 F 85 18 138/58 H 93 07/09/19 08:30 07/09/19 11:25 07/09/19 11:25 07/09/19 08:30 07/09/19 11:25 Oxygen Flow Rate (L/min) 3 Oxygen Delivery Method Room Air Weight: 256 lb 9.889 oz Body Mass Index (BMI) 39.3 Finger Stick Blood Glucose 191 Intake and Output for Last 24 Hours 07/07/19 07/08/19 07/09/19 23:59 23:59 23:59 Intake Total 800 / 800 1250 / 1250 50 / 50 Output Total 175 / 175 0 / 0 Balance 625 / 625 1250 / 1250 50 / 50 General: Alert, Oriented x3, Cooperative, No apparent distress, Lethargic HEENT: Atraumatic, PERRLA, EOMI, Normocephalic Oral: Dry Mucosa Neck: Supple, No JVD, Negative Carotid Bruits Lungs: - - Decreased breath sounds bibasilarly with coarse crackles in mid and lower lung flores posteriorly. On 3 L of oxygen. Abdomen: Bowel Sounds Present, Soft, Non Tender, Non-Distended, No Hepato-splenomegaly, Obese Extremities: No clubbing, No cyanosis, No edema, Capillary Refill Less than 3 Seconds, - - mild bipedal edema (+1) Skin: No rashes, No breakdown Musculoskeletal: No Tenderness to Palpation of Joints or Extremities Lymphatic: No Cervical, Supraclavicular, or Inguinal Adenopathy Neurological: Cranial nerves II-XII grossly intact Psych/Mental Status: Normal Affect, Appropriate, Alert and oriented to time, place, person, mood and affect - lethargic Microbiology Past 72 Hours 07/05/19 23:30 Blood Culture (Wb) - Arm Left Blood Culture - Preliminary No growth in 48 hours. 07/05/19 21:45 Blood Culture (Wb) - Right Wrist Blood Culture - Preliminary No growth in 48 hours. 07/06/19 15:15 Urine, Clean Catch Urine Culture - Final Mixed Gram Positive Organisms Laboratory Results 07/08/19 12:39: Specimen Type ART, Sample Site L Brachial, pH 7.35, Bicarbonate Actual 25.0, POC Total CO2 26, Base Excess -1, O2 Saturation 97, ABG pCO2 45.4 H, ABG pO2 94, O2 Delivery Device Nasal Can, Liter Flow 4.0, Blood Gas Notified Whom NINA LOMELI, Blood Gas Notified Time 1237 07/08/19 16:35: POC Glucose 165 H 07/08/19 21:38: POC Glucose 150 H 07/09/19 05:25: Sodium 124 L, Potassium 6.4 H*, Chloride 87 L, Carbon Dioxide 24.0, BUN 61 H, Creatinine 7.38 H, Estim Creat Clear Calc 11.20, Est GFR (MDRD) Af Amer 10 L, Est GFR (MDRD) Non-Af 8 L, BUN/Creatinine Ratio 8.3 L, Glucose 183 H, Calcium 8.2 L, Phosphorus 5.1 H, Albumin 2.5 L 07/09/19 05:25: WBC 7.6, RBC 2.98 L, Hgb 8.6 L, Hct 27.2 L, MCV 91.3, MCH 28.9, MCHC 31.6 L, RDW Std Deviation 53.1 H, RDW Coeff of Roberto 16.1 H, Plt Count 129 L, MPV 11.0, Immature Gran % (Auto) 0.400, Neut % (Auto) 89.1 H, Lymph % (Auto) 4.1 L, [place] % (Auto) 5.9, Eos % (Auto) 0.1, Baso % (Auto) 0.4, Absolute Neuts (auto) 6.8, Absolute Lymphs (auto) 0.31 L, Nucleated RBC % 0, Differential Comment SCANNED 07/09/19 08:00: POC Glucose 166 H 07/09/19 08:47: Potassium 5.8 H 07/09/19 08:47: Troponin I < 0.015 07/09/19 11:35: Troponin I < 0.015 07/09/19 12:03: POC Glucose 134 H Current Medications Acetaminophen (Tylenol) 650 mg PO Q6H PRN PRN PRN Reason: Pain Score 1-10/Temp > 100.7 F Last Admin: 07/09/19 02:38 Dose: 650 mg Documented by: Albuterol Sulfate (Ventolin Aerosols) 2.5 mg INHALATION Q2H PRN PRN Reason: sob/wheezing Last Admin: 07/08/19 08:45 Dose: 2.5 mg Documented by: Aspirin (Ecotrin) 81 mg PO DAILY [facility] Last Admin: 07/08/19 08:17 Dose: 81 mg Documented by: Atorvastatin Calcium (Lipitor) 20 mg PO QHS [facility] Last Admin: 07/08/19 21:35 Dose: 20 mg Documented by: Cyclobenzaprine HCl (Flexeril) 10 mg PO TID PRN PRN PRN Reason: SPASMS Enoxaparin Sodium (Lovenox) 30 mg SC DAILY [facility] Last Admin: 07/08/19 08:18 Dose: 30 mg Documented by: Fluticasone Propionate (Flonase Nasal [place]) 1 spray NASAL DAILY [facility] Last Admin: 07/08/19 08:17 Dose: 1 spray Documented by: Furosemide (Lasix) 40 mg PO BID [facility] Last Admin: 07/08/19 21:35 Dose: 40 mg Documented by: Gabapentin (Neurontin) 300 mg PO BID [facility] Last Admin: 07/08/19 21:35 Dose: 300 mg Documented by: Glucagon () 1 mg IM .X1 PRN PRN Reason: Hypoglycemia Guaifenesin (Mucinex) 1,200 mg PO BID [facility] Last Admin: 07/08/19 21:48 Dose: 1,200 mg Documented by: Hydralazine HCl (Apresoline Iv) 10 mg IV Q4H PRN PRN PRN Reason: SBP > 160 Last Admin: 07/06/19 17:12 Dose: 10 mg Documented by: Dextrose (Dextrose 10%-Water) 250 mls @ 999 mls/hr IV .Q16M PRN; Protocol PRN Reason: HYPOGLYCEMIA Piperacillin Sod/Tazobactam (Sod 3.375 gm/ Sodium Chloride) 50 mls @ 12.5 mls/hr IV Q12 [facility] Last Infusion: 07/09/19 01:47 Dose: Infused Documented by: Sodium Chloride () 250 mls @ 15 mls/hr IV .[id number] PRN PRN Reason: Saline Flush Sodium Chloride () 250 mls @ 15 mls/hr IV .[id number] PRN PRN Reason: Additional IVPB Infusion Insulin Human Lispro (Humalog Kwikpen (Bkc)) 0 unit SC ACHS [facility]; Protocol Last Admin: 07/09/19 12:09 Dose: Not Given Documented by: Insulin Human Lispro (Humalog Kwikpen (Bkc)) 10 unit SC TIDCM [facility] Last Admin: 07/09/19 12:10 Dose: Not Given Documented by: Isosorbide Mononitrate (Imdur) 30 mg PO DAILY [facility] Last Admin: 07/08/19 08:18 Dose: 30 mg Documented by: Lisinopril (Zestril) 20 mg PO DAILY [facility] Last Admin: 07/08/19 08:18 Dose: 20 mg Documented by: Melatonin (Melatonin) 3 mg PO QHS PRN PRN PRN Reason: INSOMNIA Metoprolol Tartrate (Lopressor (Beta Emmanuel)) 50 mg PO BID [facility] Last Admin: 07/08/19 21:35 Dose: 50 mg Documented by: Multivit/Ca Carb/B Cmplx/FA/Prenat (Nephrocaps, Renaphro) 1 capsule PO DAILY [facility] Last Admin: 07/08/19 08:20 Dose: 1 capsule Documented by: [facility]ivitamins/Minerals ([facility]) [facility] Admin: 07/08/19 08:17 Dose: 1 capsule Documented by: Ondansetron HCl (Zofran) 4 mg IV Q8H PRN PRN PRN Reason: NAUSEA/VOMITING Oxycodone HCl (Oxyir) 5 mg PO Q6H PRN PRN PRN Reason: Pain Score 1-10/10 Last Admin: 07/08/19 06:41 Dose: 5 mg Documented by: Pantoprazole Sodium (Protonix) 40 mg PO DAILY [facility] Last Admin: 07/08/19 08:19 Dose: 40 mg Documented by: Promethazine HCl (Phenergan Tablet) 25 mg PO TID PRN PRN PRN Reason: VOMITING Last Admin: 07/08/19 16:44 Dose: 25 mg Documented by: Sevelamer Carbonate (Renvela) 2,400 mg PO TIDCM [facility] Last Admin: 07/09/19 12:10 Dose: Not Given Documented by: Sodium Chloride () 10 - 40 ml IV UD PRN PRN Reason: SALINE FLUSH Last Admin: 07/08/19 13:45 Dose: 10 ml Documented by: Trazodone HCl (Desyrel) 50 mg PO QHS [facility] Last Admin: 07/08/19 21:35 Dose: 50 mg Documented by: STROKE Vital Signs/Narrative: Vital Signs Pulse Resp Pulse Ox 07/09/19 11:25 85 18 93 07/09/19 09:05 80 25 H 92 Medical Necessity - Tobacco Use Smoking Status: Never smoker Assessment/Plan All Active Problems (Last Reviewed 07/06/19 @ 09:26 by Eze Rivera MD) Community acquired pneumonia (Acute) 1. Community acquired pneumonia still remains short of breath; on 3L of oxygen now on IV zosyn blood cultures showed no growth after 48 hours. urine cultured mixed gram positive organisms. Sputum culture pending ABG showed no red flags continue breathing treatments and titrate oxygen to maintain sats >90% patient spiked fever later during the day, with temp going up to 102F; will repeat blood cultures and add on IV vancomycin,a s he has a history of MRSA. 2. Acute on chronic hypoxic respiratory failure due to community-acquired pneumonia As under 1. Usually on 2 L at home and mainly at night but now he is on 3 L and still feels short of breath. management as under 1. 3. ESRD: On hemodialysis on Tuesdays and Saturdays. For dialysis today 4. Hyperkalemia: Potassium is 5.8 today. For dialysis today. 5. Pulmonary hypertension: to follow up with pulmonology and cardiology upon discharge. 6. SELMA: On BiPAP at home. Continue BiPAP PRN. 7. Hypertension: on metoprolol and lisinopril. 8. Hyperlipidemia: On statin. 9. Type 2 diabetes mellitus: Insulin sliding scale. Accu-Cheks AC at bedtime. DVT prophylaxis: Lovenox, renally dosed. Code Visit Inpatient E&M: 10889 Subs Hosp L3
--- NOTE | 2019-07-09 13:17 | CASEMGMT ---
RN LIZETTE spoke with patient's significant other and she said [facility] and [facility] were their choices. SW faxed referral to [facility] and called leaving a voice mail for Gertrude. Agatha SHEETS MSW
[2019-07-09] MEDS: Metoprolol Tartrate 50 MG Tablet PO ×2 (14:10→21:22)
[2019-07-09] MEDS: Furosemide 40 MG Tablet PO ×2 (14:10→21:22)
[2019-07-09] MEDS: Lisinopril 20 MG Tablet PO (14:10)
[2019-07-09] MEDS: Pantoprazole Sodium 40 MG Tablet PO (14:10)
[2019-07-09] MEDS: guaiFENesin 1,200 MG Tablet 1200 MG PO ×2 (14:11→21:22)
[2019-07-09] MEDS: Enoxaparin 30 MG/0.3 ML Syringe SC (14:11)
[2019-07-09] MEDS: Isosorbide Mononitrate 30 MG Tablet PO (14:12)
[2019-07-09] MEDS: Aspirin E.C. 81 MG Tablet PO (14:12)
--- NOTE | 2019-07-09 14:57 | DIALYSIS ---
1315-HD x 4 hours and 15 minutes complete. Tolerated tx well. UF of 3000ml. Ran on 2k bath. Used right arm fistula. Vail removed post tx and pressure applied to both site x 10 minutes. Fresh gauze and tape applied. Dr. Gregorio notified of temp. Report was given to AMIRAH Moses.
--- NOTE | 2019-07-09 15:35 | CASEMGMT ---
WILFREDO received a call from Rach at [facility] and they can accept patient. She will start the pre-cert request. SW will let patient and his know. Plan: [facility] pending insurance approval. Agatha HAMMER
--- NOTE | 2019-07-09 15:40 | CASEMGMT ---
SW let patient and his know [facility] can accept him at d/c. Agatha SHEETS MSW
[2019-07-09] MEDS: Clonidine HCl 0.1 MG, Clonidine HCl 0.2 MG 0.3 MG PO (15:57)
--- NOTE | 2019-07-09 16:24 | PHA.PHARE_ITS ---
Consult Pharmacy has been consulted to manage selected antiobiotic: Vancomycin Type of Consult: New start Suspected Infection: Other Labs: Sodium 124 mmol/L (136-145) L 07/09/19 05:25 Potassium 5.8 mmol/L (3.5-5.1) H 07/09/19 08:47 Chloride 87 mmol/L (98-107) L 07/09/19 05:25 Carbon Dioxide 24.0 mmol/L (21.0-32.0) 07/09/19 05:25 Anion Gap 10 (5-15) 07/06/19 05:37 BUN 61 mg/dL (7-18) H 07/09/19 05:25 Creatinine 7.38 mg/dL (0.70-1.30) H 07/09/19 05:25 Est GFR (MDRD) Af Amer 10 mL/min (>60) L 07/09/19 05:25 Est GFR (MDRD) Non-Af 8 mL/min (>60) L 07/09/19 05:25 BUN/Creatinine Ratio 8.3 RATIO (10-20) L 07/09/19 05:25 Glucose 183 mg/dL (74-106) H 07/09/19 05:25 Microbiology: Microbiology 07/05/19 23:30 Blood Culture (Wb) - Arm Left Blood Culture - Preliminary No growth in 48 hours. 07/05/19 21:45 Blood Culture (Wb) - Right Wrist Blood Culture - Preliminary No growth in 48 hours. 07/06/19 15:15 Urine, Clean Catch Urine Culture - Final Mixed Gram Positive Organisms Weight used for dosin.4 kg Estimated Creatinine Clearance: 14.6 Goal Trough: 15-20 mcg/mL Pharmacy Plan for Drug Dosing: PATIENT IS ON DIALYSIS , , MON. GIVE A ONE TIME WEIGHT BASE LOADING TODAY AFTER DIALYSIS. GIVE A 100MG DOSE AFTER DIALYSIS ON MONDAY AND DRAW A RANDOM VANCOMYCIN LEVEL WITH AM LABS ON MONDAY. [facility] Pharmacy Service will continue to monitor and adjust dosing as required. Follow-Up Labs: Trough Vancomycin, Trough Other - VANCOMYCIN RANDOM BEFORE DIALSIS SAT
[2019-07-09 16:50] LABS: Bedside Glucose 198 mg/dL (70-110)
[2019-07-09] MEDS: Gabapentin 300 MG Capsule PO (21:22)
[2019-07-09] MEDS: traZODone 50 MG Tablet PO (21:23)
[2019-07-09] MEDS: Atorvastatin Calcium 20 MG Tablet PO (21:23)
[2019-07-09] MEDS: Insulin Lispro 100 UNIT/ML INSULN.PEN SC (21:32)
[2019-07-09 21:40] LABS: Bedside Glucose 320 mg/dL (70-110)
[2019-07-09] MEDS: Albuterol 2.5 MG/3 ML VIAL.NEB. INHALATION (22:06)
[2019-07-10] VITALS (11 sets, daily range): BP systolic 128–164; BP diastolic 62–114; PULSE 63–89; RESP 16–22; TEMP 36.4–37; O2SAT 91–100
[2019-07-10] MEDS: 0.9% Saline Lock 10 ML Syringe IV ×3 (00:10→05:35)
[2019-07-10 06:36] LABS: Albumin, Serum 2.2 g/dL (3.2-5.0); BUN 38 mg/dL (7-18); BUN/Creat Ratio 7.7 RATIO (10-20); Chloride 92 mmol/L (98-107); Creatinine, Serum 4.93 mg/dL (0.70-1.30); EST Glomerular Filtration Rate 13 mL/min (>60); Est Glom Filt Rate - Afr Amer 16 mL/min (>60); Estimated Creatinine Clearance 16.76 ml/min; Glucose 223 mg/dL (74-106); Phosphorus 6.4 mg/dL (2.5-4.9); Potassium 4.6 mmol/L (3.5-5.1); Sodium Level 129 mmol/L (136-145)
[2019-07-10] MEDS: guaiFENesin 1,200 MG Tablet 1200 MG PO ×2 (10:11→21:53)
[2019-07-10] MEDS: SEVELAMER CARBONATE 800 MG TABLET 2400 MG PO ×2 (10:11→13:16)
[2019-07-10] MEDS: Metoprolol Tartrate 50 MG Tablet PO ×2 (10:11→21:53)
[2019-07-10] MEDS: Folic Acid/Vitamin B Comp W-C 1 Capsule 1 CAP PO (10:11)
[2019-07-10] MEDS: Furosemide 40 MG Tablet PO (10:12)
[2019-07-10] MEDS: Pantoprazole Sodium 40 MG Tablet PO (10:12)
[2019-07-10] MEDS: Aspirin E.C. 81 MG Tablet PO (10:12)
[2019-07-10] MEDS: Gabapentin 300 MG Capsule PO ×2 (10:12→21:53)
[2019-07-10] MEDS: Enoxaparin 30 MG/0.3 ML Syringe SC (10:12)
[2019-07-10] MEDS: Lisinopril 20 MG Tablet PO (10:12)
[2019-07-10] MEDS: Multivitamin (Healthy Eyes) Capsule 1 CAP PO (10:13)
[2019-07-10] MEDS: Isosorbide Mononitrate 30 MG Tablet PO (10:13)
[2019-07-10] MEDS: Fluticasone 0.05% 1 SPRAY NASAL.SRY NASAL (10:14)
[2019-07-10] MEDS: Insulin Lispro 100 UNIT/ML INSULN.PEN SC ×2 (10:18→13:16)
[2019-07-10] MEDS: Insulin Lispro 100 UNIT/ML INSULN.PEN 10 UNIT SC ×3 (10:18→17:46)
[2019-07-10] MEDS: Acetaminophen 325 MG Tablet 650 MG PO ×2 (10:24→20:12)
[2019-07-10 10:36] LABS: Bedside Glucose 171 mg/dL (70-110)
--- NOTE | 2019-07-10 12:18 | PCM.PN.HOSP ---
Patient Problems: Active and Suspected Problems (Last Reviewed 07/06/19 @ 09:26 by Eze Rivera MD) Community acquired pneumonia (Acute) Subjective: Patient seen and examined. He had no complaints this morning. He was on BiPAP and sleeping at time of review. On waking up he denied any worsening shortness of breath. Review of systems otherwise negative. Vancomycin was added onto his medication yesterday on account of persistent fever. Blood cultures were repeated and are pending. Labs and vitals reviewed. Vitals/I&O's: Vital Signs Temp Pulse Resp BP Pulse Ox 97.5 F L 67 18 128/68 H 95 07/10/19 08:50 07/10/19 12:02 07/10/19 12:02 07/10/19 12:02 07/10/19 12:02 Oxygen Flow Rate (L/min) 3 Oxygen Delivery Method Nasal Cannula Weight: 260 lb 5.855 oz Body Mass Index (BMI) 39.3 Finger Stick Blood Glucose 191 Intake and Output for Last 24 Hours 07/08/19 07/09/19 07/10/19 23:59 23:59 23:59 Intake Total 1250 / 1250 650 / 650 1046 / 1046 Output Total 3000 / 3000 Balance 1250 / 1250 -2350 / -2350 1046 / 1046 General: Alert, Oriented x3, Cooperative, No apparent distress HEENT: Atraumatic, PERRLA, EOMI, Normocephalic Oral: Dry Mucosa Neck: Supple, No JVD, Negative Carotid Bruits Lungs: - - Decreased breath sounds bibasilarly.on BIPAP Abdomen: Bowel Sounds Present, Soft, Non Tender, Non-Distended, No Hepato-splenomegaly, Obese Extremities: No clubbing, No cyanosis, No edema, Capillary Refill Less than 3 Seconds, - - mild bipedal edema (+1) Skin: No rashes, No breakdown Musculoskeletal: No Tenderness to Palpation of Joints or Extremities; AV fistula with good thrill in LUE. Midline in RUE Lymphatic: No Cervical, Supraclavicular, or Inguinal Adenopathy Neurological: Cranial nerves II-XII grossly intact Psych/Mental Status: Normal Affect, Appropriate, Alert and oriented to time, place, person, mood and affect Microbiology Past 72 Hours 07/05/19 23:30 Blood Culture (Wb) - Arm Left Blood Culture - Preliminary No growth in 48 hours. 07/05/19 21:45 Blood Culture (Wb) - Right Wrist Blood Culture - Preliminary No growth in 48 hours. 07/06/19 15:15 Urine, Clean Catch Urine Culture - Final Mixed Gram Positive Organisms Laboratory Results 07/09/19 11:35: Troponin I < 0.015 07/09/19 14:45: Troponin I < 0.015 07/09/19 16:32: POC Glucose 198 H 07/09/19 21:31: POC Glucose 320 H 07/10/19 05:40: Sodium 129 L, Potassium 4.6, Chloride 92 L, Carbon Dioxide 27.0, BUN 38 H, Creatinine 4.93 H, Estim Creat Clear Calc 16.76, Est GFR (MDRD) Af Amer 16 L, Est GFR (MDRD) Non-Af 13 L, BUN/Creatinine Ratio 7.7 L, Glucose 223 H, Calcium 8.0 L, Phosphorus 6.4 H, Albumin 2.2 L 07/10/19 09:59: POC Glucose 171 H Diagnostic Data Chest X-Ray 07/07/19 05:00 IMPRESSION: Increasing right perihilar/lung base infiltrate. Electronically Signed: Sudarshan Iglesias MD ([place]) at 12:04 EST , Service support , Chest CT 07/07/19 12:10 IMPRESSION: 1. Multilobar peribronchial infiltrates compatible with history provided pneumonia. 2. No pleural effusion. 3. Dilated main pulmonary artery suggesting pulmonary hypertension. Electronically Signed: Sudarshan Iglesisa MD ([place]) at 13:24 EST , Service support , Current Medications Acetaminophen (Tylenol) 650 mg PO Q6H PRN PRN PRN Reason: Pain Score 1-10/Temp > 100.7 F Last Admin: 07/10/19 10:24 Dose: 650 mg Documented by: Albuterol Sulfate (Ventolin Aerosols) 2.5 mg INHALATION Q2H PRN PRN Reason: sob/wheezing Last Admin: 07/09/19 22:06 Dose: 2.5 mg Documented by: Aspirin (Ecotrin) 81 mg PO DAILY [facility] Last Admin: 07/10/19 10:12 Dose: 81 mg Documented by: Atorvastatin Calcium (Lipitor) 20 mg PO QHS [facility] Last Admin: 07/09/19 21:23 Dose: 20 mg Documented by: Cyclobenzaprine HCl (Flexeril) 10 mg PO TID PRN PRN PRN Reason: SPASMS Enoxaparin Sodium (Lovenox) 30 mg SC DAILY [facility] Last Admin: 07/10/19 10:12 Dose: 30 mg Documented by: Fluticasone Propionate (Flonase Nasal [place]) 1 spray NASAL DAILY [facility] Last Admin: 07/10/19 10:14 Dose: 1 spray Documented by: Furosemide (Lasix) 40 mg PO BID [facility] Last Admin: 07/10/19 10:12 Dose: 40 mg Documented by: Gabapentin (Neurontin) 300 mg PO BID [facility] Last Admin: 07/10/19 10:12 Dose: 300 mg Documented by: Glucagon () 1 mg IM .X1 PRN PRN Reason: Hypoglycemia Guaifenesin (Mucinex) 1,200 mg PO BID [facility] Last Admin: 07/10/19 10:11 Dose: 1,200 mg Documented by: Hydralazine HCl (Apresoline Iv) 10 mg IV Q4H PRN PRN PRN Reason: SBP > 160 Last Admin: 07/06/19 17:12 Dose: 10 mg Documented by: Dextrose (Dextrose 10%-Water) 250 mls @ 999 mls/hr IV .Q16M PRN; Protocol PRN Reason: HYPOGLYCEMIA Piperacillin Sod/Tazobactam (Sod 3.375 gm/ Sodium Chloride) 50 mls @ 12.5 mls/hr IV Q12 [facility] Last Admin: 07/10/19 10:25 Dose: 12.5 mls/hr Documented by: Sodium Chloride () 250 mls @ 15 mls/hr IV .[id number] PRN PRN Reason: Saline Flush Last Infusion: 07/10/19 10:28 Dose: 0 mls/hr Documented by: Sodium Chloride () 250 mls @ 15 mls/hr IV .[id number] PRN PRN Reason: Additional IVPB Infusion Vancomycin IV Pharmacy to Dose (1 ea/ Sodium Chloride) 500 mls @ 250 mls/hr IV X1 PRN; Protocol PRN Reason: Rx to Dose Vancomycin HCl (Vancomycin) 1,000 mg in 200 mls @ 200 mls/hr IV X1 ONE Stop: 07/11/19 17:59 Insulin Human Lispro (Humalog Kwikpen (Bkc)) 0 unit SC ACHS [facility]; Protocol Last Admin: 07/10/19 10:18 Dose: 1 u Documented by: Insulin Human Lispro (Humalog Kwikpen (Bkc)) 10 unit SC TIDCM [facility] Last Admin: 07/10/19 10:18 Dose: 10 u Documented by: Isosorbide Mononitrate (Imdur) 30 mg PO DAILY [facility] Last Admin: 07/10/19 10:13 Dose: 30 mg Documented by: Lisinopril (Zestril) 20 mg PO DAILY [facility] Last Admin: 07/10/19 10:12 Dose: 20 mg Documented by: Melatonin (Melatonin) 3 mg PO QHS PRN PRN PRN Reason: INSOMNIA Metoprolol Tartrate (Lopressor (Beta Emmanuel)) 50 mg PO BID [facility] Last Admin: 07/10/19 10:11 Dose: 50 mg Documented by: Multivit/Ca Carb/B Cmplx/FA/Prenat (Nephrocaps, Renaphro) 1 capsule PO DAILY [facility] Last Admin: 07/10/19 10:11 Dose: 1 capsule Documented by: Multivitamins/Minerals (Healthy Eyes) [facility] Last Admin: 07/10/19 10:13 Dose: 1 capsule Documented by: Ondansetron HCl (Zofran) 4 mg IV Q8H PRN PRN PRN Reason: NAUSEA/VOMITING Oxycodone HCl (Oxyir) 5 mg PO Q6H PRN PRN PRN Reason: Pain Score 1-10/10 Last Admin: 07/08/19 06:41 Dose: 5 mg Documented by: Pantoprazole Sodium (Protonix) 40 mg PO DAILY [facility] Last Admin: 07/10/19 10:12 Dose: 40 mg Documented by: Promethazine HCl (Phenergan Tablet) 25 mg PO TID PRN PRN PRN Reason: VOMITING Last Admin: 07/08/19 16:44 Dose: 25 mg Documented by: Sevelamer Carbonate (Renvela) 2,400 mg PO TIDCM [facility] Last Admin: 01/08/20 10:11 Dose: 2,400 mg Documented by: Sodium Chloride () 10 - 40 ml IV UD PRN PRN Reason: SALINE FLUSH Last Admin: 07/10/19 05:35 Dose: 30 ml Documented by: Trazodone HCl (Desyrel) 50 mg PO QHS [facility] Last Admin: 07/09/19 21:23 Dose: 50 mg Documented by: STROKE Vital Signs/Narrative: Vital Signs Temp Pulse Resp BP BP Pulse Ox 07/10/19 12:02 67 18 128/68 H 95 07/10/19 10:11 71 07/10/19 08:50 97.5 F L 71 18 138/72 H 93 Medical Necessity - Tobacco Use Smoking Status: Never smoker Assessment/Plan All Active Problems (Last Reviewed 07/06/19 @ 09:26 by Eze Rivera MD) Community acquired pneumonia (Acute) 1. Community acquired pneumonia feels better today IV vancomycin added on to IV zosyn yesterday initial set of blood cultures were negative; repeat blood cultures pending temperature is also settling will monitor 2. Acute on chronic hypoxic respiratory failure due to community-acquired pneumonia As under 1. on BIPAP at night and oxygen by nasal canula prn during the day continue breathing treatments 3. ESRD: On hemodialysis on Tuesdays and Saturdays. Had dialysis yesterday 4. Hyperkalemia: resolved. K is 4.6 today. 5. Pulmonary hypertension: to follow up with pulmonology and cardiology upon discharge. 6. SELMA: On BiPAP at home. Continue BiPAP PRN. 7. Hypertension: on metoprolol and lisinopril. 8. Hyperlipidemia: On statin. 9. Type 2 diabetes mellitus: Insulin sliding scale. Accu-Cheks AC at bedtime. DVT prophylaxis: Lovenox, renally dosed. For discharge to SNF when medically stable, and pending precert. Code Visit Inpatient E&M: 10745 Subs Hosp L2
[2019-07-10 13:20] LABS: Bedside Glucose 224 mg/dL (70-110)
[2019-07-10 13:24] LABS: Absolute Lymphocyte Count 0.39 X10^3/uL (0.83-4.51); Absolute Neutrophil Count 3.1 X10^3/uL (2.0-7.7); Basophil# 0.01 X10^3/uL; Basophil% 0.2 % (0-1); Eosinophil# 0.16 X10^3/uL; Eosinophils% 3.8 % (0-5); Hematocrit 26.3 % (40-54); Hemoglobin 8.2 g/dL (13.0-16.5); Lymphocyte # 0.39 X10^3/ul (4.0); Lymphocyte % 9.2 % (19-41); Mean Corp Hgb Conc 31.2 g/dL (32-36); Mean Corpuscular Hgb 28.9 pg (27.0-32.0); Mean Corpuscular Volume 92.6 fL (80-94); Mean Platelet Vol. 11.4 fl (6.2-12.0); Monocyte# 0.64 X10^3/uL; NRBC Flagged by Analyzer 0 % (0-5); Neutrophil # 3.05 X10^3/uL (2.7-7.7); Neutrophil % 71.6 % (47-70); POSITIVE DIFFERENTIAL YES; Platelet Count 138 K/mm3 (150-450); RBC Distribution Width CV 16.5 % (11.6-14.6); RBC Distribution Width SD 56.3 fl (35.1-43.9); Red Blood Count 2.84 M/mm3 (4.6-6.2); White Blood Count 4.3 K/mm3 (4.4-11.0)
[2019-07-10] MEDS: Loratadine 10 MG Tablet 5 MG PO (13:29)
[2019-07-10 13:36] LABS: Differential Indicated SCAN CRITERIA MET
[2019-07-10 13:49] LABS: Anisocytosis 1+; Hypochromasia 2+; Platelet Estimate SLT DEC (ADEQ); Target Cells RARE
--- NOTE | 2019-07-10 15:55 | PCM.PN.REN ---
Patient Problems: Active and Suspected Problems (Last Reviewed 07/06/19 @ 09:26 by Eze Rivera MD) Community acquired pneumonia (Acute) Subjective: complains of cough, wheezing. Potassium improved, stable today. HD yesterday without incident. - Physical Exam Vitals/I&O's: Vital Signs Temp Pulse Resp BP Pulse Ox 97.5 F L 67 18 128/68 H 95 07/10/19 08:50 07/10/19 12:02 07/10/19 12:02 07/10/19 12:02 07/10/19 12:02 Oxygen Flow Rate (L/min) 3 Oxygen Delivery Method Nasal Cannula Weight: 118.1 kg Body Mass Index (BMI) 39.3 Finger Stick Blood Glucose 191 Intake and Output for Last 24 Hours 07/08/19 07/09/19 07/10/19 23:59 23:59 23:59 Intake Total 1250 / 1250 650 / 650 1096 / 1096 Output Total 3000 / 3000 Balance 1250 / 1250 -2350 / -2350 1096 / 1096 General: Alert, Oriented x3, Cooperative, No apparent distress, - - more awake today Lungs: Rhonchi, Wheezes Cardiovascular: Regular rate Abdomen: Bowel Sounds Present, Soft, Non Tender, Obese Extremities: Edema - chronic Neurological: Cranial nerves II-XII grossly intact Psych/Mental Status: Normal Affect, Appropriate, Alert and oriented to time, place, person, mood and affect Microbiology Past 72 Hours 07/05/19 23:30 Blood Culture (Wb) - Arm Left Blood Culture - Preliminary No growth in 48 hours. 07/05/19 21:45 Blood Culture (Wb) - Right Wrist Blood Culture - Preliminary No growth in 48 hours. 07/06/19 15:15 Urine, Clean Catch Urine Culture - Final Mixed Gram Positive Organisms Laboratory Results 07/09/19 16:32: POC Glucose 198 H 07/09/19 21:31: POC Glucose 320 H 07/10/19 05:40: Sodium 129 L, Potassium 4.6, Chloride 92 L, Carbon Dioxide 27.0, BUN 38 H, Creatinine 4.93 H, Estim Creat Clear Calc 16.76, Est GFR (MDRD) Af Amer 16 L, Est GFR (MDRD) Non-Af 13 L, BUN/Creatinine Ratio 7.7 L, Glucose 223 H, Calcium 8.0 L, Phosphorus 6.4 H, Albumin 2.2 L 07/10/19 09:59: POC Glucose 171 H 07/10/19 13:05: WBC 4.3 L, RBC 2.84 L, Hgb 8.2 L, Hct 26.3 L, MCV 92.6, MCH 28.9, MCHC 31.2 L, RDW Std Deviation 56.3 H, RDW Coeff of Roberto 16.5 H, Plt Count 138 L, MPV 11.4, Immature Gran % (Auto) 0.200, Neut % (Auto) 71.6 H, Lymph % (Auto) 9.2 L, [place] % (Auto) 15.0 H, Eos % (Auto) 3.8, Baso % (Auto) 0.2, Absolute Neuts (auto) 3.1, Absolute Lymphs (auto) 0.39 L, Nucleated RBC % 0, Diff Path Review October, Platelet Estimate SLT DEC, Hypochromasia 2+, Anisocytosis 1+, Target Cells RARE 07/10/19 13:14: POC Glucose 224 H Current Medications Acetaminophen (Tylenol) 650 mg PO Q6H PRN PRN PRN Reason: Pain Score 1-10/Temp > 100.7 F Last Admin: 07/10/19 10:24 Dose: 650 mg Documented by: Albuterol Sulfate (Ventolin Aerosols) 2.5 mg INHALATION Q2H PRN PRN Reason: sob/wheezing Last Admin: 07/09/19 22:06 Dose: 2.5 mg Documented by: Aspirin (Ecotrin) 81 mg PO DAILY [facility] Last Admin: 07/10/19 10:12 Dose: 81 mg Documented by: Atorvastatin Calcium (Lipitor) 20 mg PO QHS [facility] Last Admin: 07/09/19 21:23 Dose: 20 mg Documented by: Cyclobenzaprine HCl (Flexeril) 10 mg PO TID PRN PRN PRN Reason: SPASMS Enoxaparin Sodium (Lovenox) 30 mg SC DAILY [facility] Last Admin: 07/10/19 10:12 Dose: 30 mg Documented by: Fluticasone Propionate (Flonase Nasal [place]) 1 spray NASAL DAILY [facility] Last Admin: 07/10/19 10:14 Dose: 1 spray Documented by: Furosemide (Lasix) 40 mg PO BID [facility] Last Admin: 07/10/19 10:12 Dose: 40 mg Documented by: Gabapentin (Neurontin) 300 mg PO BID [facility] Last Admin: 07/10/19 10:12 Dose: 300 mg Documented by: Glucagon () 1 mg IM .X1 PRN PRN Reason: Hypoglycemia Guaifenesin (Mucinex) 1,200 mg PO BID [facility] Last Admin: 07/10/19 10:11 Dose: 1,200 mg Documented by: Hydralazine HCl (Apresoline Iv) 10 mg IV Q4H PRN PRN PRN Reason: SBP > 160 Last Admin: 07/06/19 17:12 Dose: 10 mg Documented by: Dextrose (Dextrose 10%-Water) 250 mls @ 999 mls/hr IV .Q16M PRN; Protocol PRN Reason: HYPOGLYCEMIA Piperacillin Sod/Tazobactam (Sod 3.375 gm/ Sodium Chloride) 50 mls @ 12.5 mls/hr IV Q12 [facility] Last Infusion: 07/10/19 15:01 Dose: Infused Documented by: Sodium Chloride () 250 mls @ 15 mls/hr IV .[id number] PRN PRN Reason: Saline Flush Last Infusion: 07/10/19 10:28 Dose: 0 mls/hr Documented by: Sodium Chloride () 250 mls @ 15 mls/hr IV .[id number] PRN PRN Reason: Additional IVPB Infusion Vancomycin IV Pharmacy to Dose (1 ea/ Sodium Chloride) 500 mls @ 250 mls/hr IV X1 PRN; Protocol PRN Reason: Rx to Dose Vancomycin HCl (Vancomycin) 1,000 mg in 200 mls @ 200 mls/hr IV X1 ONE Stop: 07/11/19 17:59 Insulin Human Lispro (Humalog Kwikpen (Bkc)) 0 unit SC ACHS [facility]; Protocol Last Admin: 07/10/19 13:16 Dose: 2 u Documented by: Insulin Human Lispro (Humalog Kwikpen (Bkc)) 10 unit SC TIDCM [facility] Last Admin: 07/10/19 13:16 Dose: 10 u Documented by: Isosorbide Mononitrate (Imdur) 30 mg PO DAILY [facility] Last Admin: 07/10/19 10:13 Dose: 30 mg Documented by: Lisinopril (Zestril) 20 mg PO DAILY [facility] Last Admin: 07/10/19 10:12 Dose: 20 mg Documented by: Melatonin (Melatonin) 3 mg PO QHS PRN PRN PRN Reason: INSOMNIA Metoprolol Tartrate (Lopressor (Beta Emmanuel)) 50 mg PO BID [facility] Last Admin: 07/10/19 10:11 Dose: 50 mg Documented by: Multivit/Ca Carb/B Cmplx/FA/Prenat (Nephrocaps, Renaphro) 1 capsule PO DAILY [facility] Last Admin: 07/10/19 10:11 Dose: 1 capsule Documented by: [facility]ivitamins/Minerals ([facility]) [facility] Last Admin: 07/10/19 10:13 Dose: 1 capsule Documented by: Ondansetron HCl (Zofran) 4 mg IV Q8H PRN PRN PRN Reason: NAUSEA/VOMITING Oxycodone HCl (Oxyir) 5 mg PO Q6H PRN PRN PRN Reason: Pain Score 1-10/10 Last Admin: 07/08/19 06:41 Dose: 5 mg Documented by: Pantoprazole Sodium (Protonix) 40 mg PO DAILY [facility] Last Admin: 07/10/19 10:12 Dose: 40 mg Documented by: Promethazine HCl (Phenergan Tablet) 25 mg PO TID PRN PRN PRN Reason: VOMITING Last Admin: 07/08/19 16:44 Dose: 25 mg Documented by: Sevelamer Carbonate (Renvela) 2,400 mg PO TIDCM [facility] Last Admin: 07/10/19 13:16 Dose: 2,400 mg Documented by: Sodium Chloride () 10 - 40 ml IV UD PRN PRN Reason: SALINE FLUSH Last Admin: 07/10/19 05:35 Dose: 30 ml Documented by: Trazodone HCl (Desyrel) 50 mg PO QHS [facility] Last Admin: 07/09/19 21:23 Dose: 50 mg Documented by: Medical Necessity - Tobacco Use Smoking Status: Never smoker Assessment/Plan All Active Problems (Last Reviewed 07/06/19 @ 09:26 by Eze Rivera MD) Community acquired pneumonia (Acute) 1. ESRD due to diabetes hypertension HD next on 2. CAP right middle and lower lobe. Renal dose IV antibiotics. Blood culture negative so far 3. Hypertension stable 4. Anemia of chronic disease. Hemoglobin stable. [facility] on hemodialysis. 5. Hyperkalemia corrected with dialysis 6. Hyperphosphatemia, increase binders
[2019-07-10 17:05] LABS: Bedside Glucose 137 mg/dL (70-110)
[2019-07-10] MEDS: SEVELAMER CARBONATE 800 MG TABLET 3200 MG PO (17:43)
[2019-07-10] MEDS: Furosemide 80 MG Tablet PO (17:46)
--- NOTE | 2019-07-10 17:57 | NURSING ---
Pt requested prn breathing tx- respiratory notified and state they will be up as soon as report is complete.
--- NOTE | 2019-07-10 17:59 | NURSING ---
pt aware of order for sputum sample- cup in room at bedside. Unable to obtain at this time- pt verbalized understanding regarding order.
[2019-07-10] MEDS: Albuterol 2.5 MG/3 ML VIAL.NEB. INHALATION (19:04)
[2019-07-10] MEDS: traZODone 50 MG Tablet PO (21:53)
[2019-07-10] MEDS: Atorvastatin Calcium 20 MG Tablet PO (21:53)
[2019-07-10 22:00] LABS: Bedside Glucose 143 mg/dL (70-110)
[2019-07-10] MEDS: oxyCODONE 5 MG Tablet PO (23:10)
[2019-07-11] VITALS (11 sets, daily range): BP systolic 134–181; BP diastolic 75–84; PULSE 66–74; RESP 14–20; TEMP 36.4–36.9; O2SAT 92–100
[2019-07-11 06:12] LABS: Absolute Lymphocyte Count 0.66 X10^3/uL (0.83-4.51); Absolute Neutrophil Count 3.1 X10^3/uL (2.0-7.7); Basophil# 0.02 X10^3/uL; Basophil% 0.4 % (0-1); Eosinophil# 0.36 X10^3/uL; Eosinophils% 7.5 % (0-5); Hematocrit 25.7 % (40-54); Lymphocyte # 0.66 X10^3/ul (4.0); Lymphocyte % 13.7 % (19-41); Mean Corp Hgb Conc 31.1 g/dL (32-36); Mean Corpuscular Hgb 28.6 pg (27.0-32.0); Mean Corpuscular Volume 91.8 fL (80-94); Mean Platelet Vol. 11.4 fl (6.2-12.0); Monocyte% 14.5 % (0-10); NRBC Flagged by Analyzer 0 % (0-5); Neutrophil # 3.07 X10^3/uL (2.7-7.7); Neutrophil % 63.5 % (47-70); Platelet Count 142 K/mm3 (150-450); RBC Distribution Width CV 16.6 % (11.6-14.6); RBC Distribution Width SD 56.3 fl (35.1-43.9); White Blood Count 4.8 K/mm3 (4.4-11.0)
[2019-07-11 06:28] LABS: Albumin, Serum 2.2 g/dL (3.2-5.0); BUN 49 mg/dL (7-18); Chloride 93 mmol/L (98-107); Creatinine, Serum 6.09 mg/dL (0.70-1.30); EST Glomerular Filtration Rate 10 mL/min (>60); Est Glom Filt Rate - Afr Amer 13 mL/min (>60); Estimated Creatinine Clearance 13.57 ml/min; Glucose 132 mg/dL (74-106); Phosphorus 6.7 mg/dL (2.5-4.9); Potassium 4.4 mmol/L (3.5-5.1); Sodium Level 130 mmol/L (136-145)
[2019-07-11 07:01] LABS: Bedside Glucose 144 mg/dL (70-110)
[2019-07-11] MEDS: Fluticasone 0.05% 1 SPRAY NASAL.SRY NASAL (08:56)
[2019-07-11] MEDS: Furosemide 80 MG Tablet PO (08:57)
[2019-07-11] MEDS: SEVELAMER CARBONATE 800 MG TABLET 3200 MG PO ×3 (08:57→18:13)
[2019-07-11] MEDS: guaiFENesin 1,200 MG Tablet 1200 MG PO ×2 (08:58→22:52)
[2019-07-11] MEDS: Lisinopril 20 MG Tablet PO (08:58)
[2019-07-11] MEDS: Gabapentin 300 MG Capsule PO ×2 (08:58→22:52)
[2019-07-11] MEDS: Multivitamin (Healthy Eyes) Capsule 1 CAP PO (08:59)
[2019-07-11] MEDS: Folic Acid/Vitamin B Comp W-C 1 Capsule 1 CAP PO (08:59)
[2019-07-11] MEDS: Metoprolol Tartrate 50 MG Tablet PO ×2 (08:59→22:52)
[2019-07-11] MEDS: Pantoprazole Sodium 40 MG Tablet PO (08:59)
[2019-07-11] MEDS: Aspirin E.C. 81 MG Tablet PO (08:59)
[2019-07-11] MEDS: Loratadine 10 MG Tablet PO (09:00)
[2019-07-11] MEDS: Enoxaparin 30 MG/0.3 ML Syringe SC (09:00)
[2019-07-11] MEDS: Isosorbide Mononitrate 30 MG Tablet PO (09:00)
[2019-07-11] MEDS: oxyCODONE 5 MG Tablet PO ×2 (09:08→20:47)
[2019-07-11] MEDS: Insulin Lispro 100 UNIT/ML INSULN.PEN 10 UNIT SC ×3 (09:13→18:13)
--- NOTE | 2019-07-11 10:20 | PN.RENAL_ITS ---
Patient Problems: Active and Suspected Problems (Last Reviewed 07/06/19 @ 09:26 by Eze Rivera MD) Community acquired pneumonia (Acute) Subjective: wheeze, cough improved on exam. Tolerating diet well. Phosphorus elevated, binders adjusted. - Physical Exam Vitals/I&O's: Vital Signs Temp Pulse Resp BP Pulse Ox 97.6 F L 71 16 134/76 H 97 07/11/19 05:46 07/11/19 08:59 07/11/19 07:45 07/11/19 05:46 07/11/19 10:00 Oxygen Flow Rate (L/min) 2 Oxygen Delivery Method Nasal Cannula Weight: 118.9 kg Body Mass Index (BMI) 39.3 Finger Stick Blood Glucose 191 Intake and Output for Last 24 Hours 07/09/19 07/10/19 07/11/19 23:59 23:59 23:59 Intake Total 650 / 650 1336 / 1836 550 / 550 Output Total 3000 / 3000 0 / 0 Balance -2350 / -2350 1336 / 1836 550 / 550 General: Alert, Oriented x3, Cooperative, No apparent distress Lungs: Clear to auscultation, Wheezes - faint occasional Abdomen: Bowel Sounds Present, Soft, Non Tender, Obese Extremities: Edema Psych/Mental Status: Normal Affect, Alert and oriented to time, place, person, mood and affect Microbiology Past 72 Hours 07/05/19 23:30 Blood Culture (Wb) - Arm Left Blood Culture - Final No growth in 5 days. 07/05/19 21:45 Blood Culture (Wb) - Right Wrist Blood Culture - Final No growth in 5 days. 07/10/19 22:00 Interface Orders Gram Stain - Preliminary 07/06/19 15:15 Urine, Clean Catch Urine Culture - Final Mixed Gram Positive Organisms Laboratory Results 07/10/19 09:59: POC Glucose 171 H 07/10/19 13:05: WBC 4.3 L, RBC 2.84 L, Hgb 8.2 L, Hct 26.3 L, MCV 92.6, MCH 28.9, MCHC 31.2 L, RDW Std Deviation 56.3 H, RDW Coeff of Roberto 16.5 H, Plt Count 138 L, MPV 11.4, Immature Gran % (Auto) 0.200, Neut % (Auto) 71.6 H, Lymph % (Auto) 9.2 L, Long % (Auto) 15.0 H, Eos % (Auto) 3.8, Baso % (Auto) 0.2, Absolute Neuts (auto) 3.1, Absolute Lymphs (auto) 0.39 L, Nucleated RBC % 0, Diff Path Review October, Platelet Estimate SLT DEC, Hypochromasia 2+, Anisocytosis 1+, Target Cells RARE 07/10/19 13:14: POC Glucose 224 H 07/10/19 16:20: POC Glucose 137 H 07/10/19 21:50: POC Glucose 143 H 07/11/19 05:55: WBC 4.8, RBC 2.80 L, Hgb 8.0 L, Hct 25.7 L, MCV 91.8, MCH 28.6, MCHC 31.1 L, RDW Std Deviation 56.3 H, RDW Coeff of Roberto 16.6 H, Plt Count 142 L, MPV 11.4, Immature Gran % (Auto) 0.400, Neut % (Auto) 63.5, Lymph % (Auto) 13.7 L, Long % (Auto) 14.5 H, Eos % (Auto) 7.5 H, Baso % (Auto) 0.4, Absolute Neuts (auto) 3.1, Absolute Lymphs (auto) 0.66 L, Nucleated RBC % 0 07/11/19 05:55: Sodium 130 L, Potassium 4.4, Chloride 93 L, Carbon Dioxide 26.0, BUN 49 H, Creatinine 6.09 H, Estim Creat Clear Calc 13.57, Est GFR (MDRD) Af Amer 13 L, Est GFR (MDRD) Non-Af 10 L, BUN/Creatinine Ratio 8.0 L, Glucose 132 H , Calcium 8.0 L, Phosphorus 6.7 H, Albumin 2.2 L 07/11/19 06:56: POC Glucose 144 H Current Medications Acetaminophen (Tylenol) 650 mg PO Q6H PRN PRN PRN Reason: Pain Score 1-10/Temp > 100.7 F Last Admin: 07/10/19 20:12 Dose: 650 mg Documented by: Albuterol Sulfate (Ventolin Aerosols) 2.5 mg INHALATION Q2H PRN PRN Reason: sob/wheezing Last Admin: 07/10/19 19:04 Dose: 2.5 mg Documented by: Aspirin (Ecotrin) 81 mg PO DAILY [facility] Last Admin: 07/11/19 08:59 Dose: 81 mg Documented by: Atorvastatin Calcium (Lipitor) 20 mg PO QHS [facility] Last Admin: 07/10/19 21:53 Dose: 20 mg Documented by: Cyclobenzaprine HCl (Flexeril) 10 mg PO TID PRN PRN PRN Reason: SPASMS Enoxaparin Sodium (Lovenox) 30 mg SC DAILY [facility] Last Admin: 07/11/19 09:00 Dose: 30 mg Documented by: Fluticasone Propionate (Flonase Nasal [employer]) 1 spray NASAL DAILY [facility] Last Admin: 07/11/19 08:56 Dose: 1 spray Documented by: Furosemide (Lasix) 80 mg PO BID@1000,1800 [facility] Last Admin: 07/11/19 08:57 Dose: 80 mg Documented by: Gabapentin (Neurontin) 300 mg PO BID [facility] Last Admin: 07/11/19 08:58 Dose: 300 mg Documented by: Glucagon () 1 mg IM .X1 PRN PRN Reason: Hypoglycemia Guaifenesin (Mucinex) 1,200 mg PO BID [facility] Last Admin: 07/11/19 08:58 Dose: 1,200 mg Documented by: Hydralazine HCl (Apresoline Iv) 10 mg IV Q4H PRN PRN PRN Reason: SBP > 160 Last Admin: 07/06/19 17:12 Dose: 10 mg Documented by: Dextrose (Dextrose 10%-Water) 250 mls @ 999 mls/hr IV .Q16M PRN; Protocol PRN Reason: HYPOGLYCEMIA Piperacillin Sod/Tazobactam (Sod 3.375 gm/ Sodium Chloride) 50 mls @ 12.5 mls/hr IV Q12 [facility] Last Admin: 07/11/19 09:13 Dose: 12.5 mls/hr Documented by: Sodium Chloride () 250 mls @ 15 mls/hr IV .[id number] PRN PRN Reason: Saline Flush Last Infusion: 07/10/19 10:28 Dose: 0 mls/hr Documented by: Sodium Chloride () 250 mls @ 15 mls/hr IV .[id number] PRN PRN Reason: Additional IVPB Infusion Vancomycin IV Pharmacy to Dose (1 ea/ Sodium Chloride) 500 mls @ 250 mls/hr IV X1 PRN; Protocol PRN Reason: Rx to Dose Vancomycin HCl (Vancomycin) 1,000 mg in 200 mls @ 200 mls/hr IV X1 ONE Stop: 07/11/19 17:59 Insulin Human Lispro (Humalog Kwikpen (Bkc)) 0 unit SC ACHS [facility]; Protocol Last Admin: 07/11/19 06:58 Dose: Not Given Documented by: Insulin Human Lispro (Humalog Kwikpen (Bkc)) 10 unit SC TIDCM [facility] Last Admin: 07/11/19 09:13 Dose: 10 u Documented by: Isosorbide Mononitrate (Imdur) 30 mg PO DAILY [facility] Last Admin: 07/11/19 09:00 Dose: 30 mg Documented by: Lisinopril (Zestril) 20 mg PO DAILY [facility] Last Admin: 07/11/19 08:58 Dose: 20 mg Documented by: Loratadine (Claritin) 10 mg PO DAILY [facility] Last Admin: 07/11/19 09:00 Dose: 10 mg Documented by: Melatonin (Melatonin) 3 mg PO QHS PRN PRN PRN Reason: INSOMNIA Metoprolol Tartrate (Lopressor (Beta Emmanuel)) 50 mg PO BID [facility] Last Admin: 07/11/19 08:59 Dose: 50 mg Documented by: Multivit/Ca Carb/B Cmplx/FA/Prenat (Nephrocaps, Renaphro) 1 capsule PO DAILY [facility] Last Admin: 07/11/19 08:59 Dose: 1 capsule Documented by: [facility]ivitamins[facility] ([facility]) [facility] Last Admin: 07/11/19 08:59 Dose: 1 capsule Documented by: Ondansetron HCl (Zofran) 4 mg IV Q8H PRN PRN PRN Reason: NAUSEA/VOMITING Oxycodone HCl (Oxyir) 5 mg PO Q6H PRN PRN PRN Reason: Pain Score 1-10/10 Last Admin: 07/11/19 09:08 Dose: 5 mg Documented by: Pantoprazole Sodium (Protonix) 40 mg PO DAILY [facility] Last Admin: 07/11/19 08:59 Dose: 40 mg Documented by: Promethazine HCl (Phenergan Tablet) 25 mg PO TID PRN PRN PRN Reason: VOMITING Last Admin: 07/08/19 16:44 Dose: 25 mg Documented by: Sevelamer Carbonate (Renvela) 3,200 mg PO TIDCM [facility] Last Admin: 07/11/19 08:57 Dose: 3,200 mg Documented by: Sodium Chloride () 10 - 40 ml IV UD PRN PRN Reason: SALINE FLUSH Last Admin: 07/10/19 05:35 Dose: 30 ml Documented by: Trazodone HCl (Desyrel) 50 mg PO QHS [facility] Last Admin: 07/10/19 21:53 Dose: 50 mg Documented by: Medical Necessity - Tobacco Use Smoking Status: Never smoker Assessment/Plan All Active Problems (Last Reviewed 07/06/19 @ 09:26 by Eze Rivera MD) Community acquired pneumonia (Acute) 1. ESRD due to diabetes hypertension HD today 2. CAP right middle and lower lobe. Renal dose IV antibiotics. Blood culture negative so far 3. Hypertension stable 4. Anemia of chronic disease. Hemoglobin stable. [facility] on hemodialysis. 5. Hyperkalemia corrected with dialysis 6. Hyperphosphatemia, increase binders 7. Hyponatremia due to pneumonia, fluid overload. stop lasix since no urine output
[2019-07-11] MEDS: Insulin Lispro 100 UNIT/ML INSULN.PEN SC ×2 (11:49→22:53)
[2019-07-11] MEDS: Acetaminophen 325 MG Tablet 650 MG PO ×2 (12:24→22:53)
[2019-07-11 12:25] LABS: Bedside Glucose 234 mg/dL (70-110)
--- NOTE | 2019-07-11 12:38 | PN_ITS ---
Patient Problems: Active and Suspected Problems (Last Reviewed 07/06/19 @ 09:26 by Eze Rivera MD) Community acquired pneumonia (Acute) Subjective: Patient seen and examined. He was on BiPAP at time of review but was comfortable and had no complaints. Review of systems otherwise negative. Labs and vitals reviewed. He has remained hemodynamically stable. Creatinine is 6.09 today and sodium is 132. WBC is 12.8 and hemoglobin is 8. Platelets are 142. Vitals/I&O's: Vital Signs Temp Pulse Resp BP Pulse Ox 98.3 F 66 18 142/75 H 95 07/11/19 11:40 07/11/19 11:40 07/11/19 11:40 07/11/19 11:40 07/11/19 11:40 Oxygen Flow Rate (L/min) 2 Oxygen Delivery Method Nasal Cannula Weight: 262 lb 2.074 oz Body Mass Index (BMI) 39.3 Finger Stick Blood Glucose 191 Intake and Output for Last 24 Hours 07/09/19 07/10/19 07/11/19 23:59 23:59 23:59 Intake Total 650 / 650 1336 / 1836 1030 / 1030 Output Total 3000 / 3000 0 / 0 Balance -2350 / -2350 1336 / 1836 1030 / 1030 General: Alert, Oriented x3, Cooperative, No apparent distress HEENT: Atraumatic, PERRLA, EOMI, Normocephalic Oral: Dry Mucosa Neck: Supple, No JVD, Negative Carotid Bruits Lungs: - - Decreased breath sounds bibasilarly.on BIPAP Abdomen: Bowel Sounds Present, Soft, Non Tender, Non-Distended, No Hepato- splenomegaly, Obese Extremities: No clubbing, No cyanosis, No edema, Capillary Refill Less than 3 Seconds, - - mild bipedal edema (+1) Skin: No rashes, No breakdown Musculoskeletal: No Tenderness to Palpation of Joints or Extremities; AV fistula with good thrill in LUE. Midline in RUE Lymphatic: No Cervical, Supraclavicular, or Inguinal Adenopathy Neurological: Cranial nerves II-XII grossly intact Psych/Mental Status: Normal Affect, Appropriate, Alert and oriented to time, place, person, mood and affect Microbiology Past 72 Hours 07/10/19 22:00 Interface Orders Gram Stain - Final 07/05/19 23:30 Blood Culture (Wb) - Arm Left Blood Culture - Final No growth in 5 days. 07/05/19 21:45 Blood Culture (Wb) - Right Wrist Blood Culture - Final No growth in 5 days. 07/06/19 15:15 Urine, Clean Catch Urine Culture - Final Mixed Gram Positive Organisms Laboratory Results 07/10/19 13:05: WBC 4.3 L, RBC 2.84 L, Hgb 8.2 L, Hct 26.3 L, MCV 92.6, MCH 28.9, MCHC 31.2 L, RDW Std Deviation 56.3 H, RDW Coeff of Roberto 16.5 H, Plt Count 138 L, MPV 11.4, Immature Gran % (Auto) 0.200, Neut % (Auto) 71.6 H, Lymph % (Auto) 9.2 L, [place] % (Auto) 15.0 H, Eos % (Auto) 3.8, Baso % (Auto) 0.2, Absolute Neuts (auto) 3.1, Absolute Lymphs (auto) 0.39 L, Nucleated RBC % 0, Diff Path Review October, Platelet Estimate SLT DEC, Hypochromasia 2+, Anisocytosis 1+, Target Cells RARE 07/10/19 13:14: POC Glucose 224 H 07/10/19 16:20: POC Glucose 137 H 07/10/19 21:50: POC Glucose 143 H 07/11/19 05:55: WBC 4.8, RBC 2.80 L, Hgb 8.0 L, Hct 25.7 L, MCV 91.8, MCH 28.6, MCHC 31.1 L, RDW Std Deviation 56.3 H, RDW Coeff of Roberto 16.6 H, Plt Count 142 L, MPV 11.4, Immature Gran % (Auto) 0.400, Neut % (Auto) 63.5, Lymph % (Auto) 13.7 L, [place] % (Auto) 14.5 H, Eos % (Auto) 7.5 H, Baso % (Auto) 0.4, Absolute Neuts (auto) 3.1, Absolute Lymphs (auto) 0.66 L, Nucleated RBC % 0 07/11/19 05:55: Sodium 130 L, Potassium 4.4, Chloride 93 L, Carbon Dioxide 26.0, BUN 49 H, Creatinine 6.09 H, Estim Creat Clear Calc 13.57, Est GFR (MDRD) Af Amer 13 L, Est GFR (MDRD) Non-Af 10 L, BUN/Creatinine Ratio 8.0 L, Glucose 132 H , Calcium 8.0 L, Phosphorus 6.7 H, Albumin 2.2 L 07/11/19 06:56: POC Glucose 144 H 07/11/19 11:45: POC Glucose 234 H Diagnostic Data Chest X-Ray 07/07/19 05:00 IMPRESSION: Increasing right perihilar/lung base infiltrate. Electronically Signed: Sudarshan Iglesias MD ([place]) at 12:04 EST , Service support , Chest CT 07/07/19 12:10 IMPRESSION: 1. Multilobar peribronchial infiltrates compatible with history provided pneumonia. 2. No pleural effusion. 3. Dilated main pulmonary artery suggesting pulmonary hypertension. Electronically Signed: Sudarshan Iglesias MD ([place]) at 13:24 EST , Service support , Current Medications Acetaminophen (Tylenol) 650 mg PO Q6H PRN PRN PRN Reason: Pain Score 1-10/Temp > 100.7 F Last Admin: 07/11/19 12:24 Dose: 650 mg Documented by: Albuterol Sulfate (Ventolin Aerosols) 2.5 mg INHALATION Q2H PRN PRN Reason: sob/wheezing Last Admin: 07/10/19 19:04 Dose: 2.5 mg Documented by: Aspirin (Ecotrin) 81 mg PO DAILY [facility] [place] Last Admin: 07/11/19 08:59 Dose: 81 mg Documented by: Atorvastatin Calcium (Lipitor) 20 mg PO QHS [facility] [place] Last Admin: 07/10/19 21:53 Dose: 20 mg Documented by: Cyclobenzaprine HCl (Flexeril) 10 mg PO TID PRN PRN PRN Reason: SPASMS Enoxaparin Sodium (Lovenox) 30 mg SC DAILY [facility] [place] Last Admin: 07/11/19 09:00 Dose: 30 mg Documented by: Fluticasone Propionate (Flonase Nasal Lyn[place]) 1 spray NASAL DAILY [facility] [place] Last Admin: 07/11/19 08:56 Dose: 1 spray Documented by: Gabapentin (Neurontin) 300 mg PO BID [facility] [place] Last Admin: 07/11/19 08:58 Dose: 300 mg Documented by: Glucagon () 1 mg IM .X1 PRN PRN Reason: Hypoglycemia Guaifenesin (Mucinex) 1,200 mg PO BID [facility] [place] Last Admin: 07/11/19 08:58 Dose: 1,200 mg Documented by: Hydralazine HCl (Apresoline Iv) 10 mg IV Q4H PRN PRN PRN Reason: SBP > 160 Last Admin: 07/06/19 17:12 Dose: 10 mg Documented by: Dextrose (Dextrose 10%-Water) 250 mls @ 999 mls/hr IV .Q16M PRN; Protocol PRN Reason: HYPOGLYCEMIA Piperacillin Sod/Tazobactam (Sod 3.375 gm/ Sodium Chloride) 50 mls @ 12.5 mls/hr IV Q12 [facility] [place] Last Admin: 07/11/19 09:13 Dose: 12.5 mls/hr Documented by: Sodium Chloride () 250 mls @ 15 mls/hr IV .[id number] PRN PRN Reason: Saline Flush Last Infusion: 07/10/19 10:28 Dose: 0 mls/hr Documented by: Sodium Chloride () 250 mls @ 15 mls/hr IV .[id number] PRN PRN Reason: Additional IVPB Infusion Vancomycin IV Pharmacy to Dose (1 ea/ Sodium Chloride) 500 mls @ 250 mls/hr IV X1 PRN; Protocol PRN Reason: Rx to Dose Vancomycin HCl (Vancomycin) 1,000 mg in 200 mls @ 200 mls/hr IV X1 ONE Stop: 07/11/19 17:59 Insulin Human Lispro (Humalog Kwikpen (Bkc)) 0 unit SC ACHS [facility] [place]; Protocol Last Admin: 07/11/19 11:49 Dose: 2 u Documented by: Insulin Human Lispro (Humalog Kwikpen (Bkc)) 10 unit SC TIDCM [facility] [place] Last Admin: 07/11/19 11:48 Dose: 10 u Documented by: Isosorbide Mononitrate (Imdur) 30 mg PO DAILY [facility] [place] Last Admin: 07/11/19 09:00 Dose: 30 mg Documented by: Lisinopril (Zestril) 20 mg PO DAILY [facility] [place] Last Admin: 07/11/19 08:58 Dose: 20 mg Documented by: Loratadine (Claritin) 10 mg PO DAILY [facility] [place] Last Admin: 07/11/19 09:00 Dose: 10 mg Documented by: Melatonin (Melatonin) 3 mg PO QHS PRN PRN PRN Reason: INSOMNIA Metoprolol Tartrate (Lopressor (Beta Emmanuel)) 50 mg PO BID [facility] [place] Last Admin: 07/11/19 08:59 Dose: 50 mg Documented by: Multivit/Ca Carb/B Cmplx/FA/Prenat (Nephrocaps, Renaphro) 1 capsule PO DAILY [facility] [place] Last Admin: 07/11/19 08:59 Dose: 1 capsule Documented by: Multivitamins/Minerals (Healthy [facility]) [address] [facility] Last Admin: 07/11/19 08:59 Dose: 1 capsule Documented by: Ondansetron HCl (Zofran) 4 mg IV Q8H PRN PRN PRN Reason: NAUSEA/VOMITING Oxycodone HCl (Oxyir) 5 mg PO Q6H PRN PRN PRN Reason: Pain Score 1-10/10 Last Admin: 07/11/19 09:08 Dose: 5 mg Documented by: Pantoprazole Sodium (Protonix) 40 mg PO DAILY [facility] [place] Last Admin: 07/11/19 08:59 Dose: 40 mg Documented by: Promethazine HCl (Phenergan Tablet) 25 mg PO TID PRN PRN PRN Reason: VOMITING Last Admin: 07/08/19 16:44 Dose: 25 mg Documented by: Sevelamer Carbonate (Renvela) 3,200 mg PO TIDCM [facility] [place] Last Admin: 07/11/19 11:50 Dose: 3,200 mg Documented by: Sodium Chloride () 10 - 40 ml IV UD PRN PRN Reason: SALINE FLUSH Last Admin: 07/10/19 05:35 Dose: 30 ml Documented by: Trazodone HCl (Desyrel) 50 mg PO QHS [facility] [place] Last Admin: 07/10/19 21:53 Dose: 50 mg Documented by: STROKE Vital Signs/Narrative: Vital Signs Temp Pulse Resp BP Pulse Ox 07/11/19 11:40 98.3 F 66 18 142/75 H 95 07/11/19 10:00 97 07/11/19 08:59 71 Medical Necessity - Tobacco Use Smoking Status: Never smoker Assessment/Plan All Active Problems (Last Reviewed 07/06/19 @ 09:26 by Eze Rivera MD) Community acquired pneumonia (Acute) 1. Community acquired pneumonia * on IV vancomycin and zosyn as he remained febrile * repeat blood cultures pending * temperature has settled * repeat blood cultures so far show no growth * will dc IV antibiotics tomorrow * * 2. Acute on chronic hypoxic respiratory failure due to community-acquired pneumonia * As under 1. * on BIPAP at night and oxygen by nasal canula prn during the day * continue breathing treatments * 3. ESRD: On hemodialysis on Tuesdays and Saturdays. For dialysis today 4. Hyperkalemia: resolved. 5. Pulmonary hypertension: to follow up with pulmonology and cardiology upon discharge. 6. SELMA: On BiPAP at home. Continue BiPAP PRN. 7. Hypertension: on metoprolol and lisinopril. 8. Hyperlipidemia: On statin. 9. Type 2 diabetes mellitus: Insulin sliding scale. Accu-Cheks AC at bedtime. 10. Anemia: is anemia of chronic disease. Hb is 8; baseline Hb is between 8-10 mostly. Likely due to ESRD. Will monitor DVT prophylaxis: Lovenox, renally dosed. Disposition: For discharge to SNF: awaiting precert. Code Visit Inpatient E&M: 72734 Subs Hosp L2
[2019-07-11] MEDS: Heparin 10,000 UNITS/10 ML Vial 8000 UNITS IV (13:40)
--- NOTE | 2019-07-11 14:20 | CASEMGMT ---
WILFREDO received call from Gertrude at [facility] and patient was approved to go to [facility]. Physician was notified and patient will go tomorrow. WILFREDO called [facility] and arranged for patient to get picked up at 12p via [facility] van. WILFREDO notified physician and lithopone charger as well as patient. Plan: [facility] under skilled level of care on a convalescent stay. [facility] will pick patient up at 12:00. Agatha SHEETS MSW
[2019-07-11 14:35] LABS: Pathologist Review Reviewed
[2019-07-11 15:55] LABS: Hepatitis B Surface Antigen Non-Reactive (Nonreactive)
[2019-07-11] MEDS: BENZOCAINE/MENTHOL 1 LOZENGE MUCOUS MEM ×2 (16:01→23:02)
[2019-07-11] MEDS: Vancomycin IV 1,000 MG/200 ML BAG 200 MG IV (18:19)
[2019-07-11 18:21] LABS: Bedside Glucose 110 mg/dL (70-110)
[2019-07-11] MEDS: 0.9% Saline Lock 10 ML Syringe IV ×2 (20:48→22:53)
[2019-07-11] MEDS: traZODone 50 MG Tablet PO (22:52)
[2019-07-11] MEDS: cycloBENZAPRine HCl 10 MG Tablet PO (22:52)
[2019-07-11] MEDS: Atorvastatin Calcium 20 MG Tablet PO (22:52)
[2019-07-11 23:06] LABS: Bedside Glucose 170 mg/dL (70-110)
[2019-07-12 04:44] VITALS: BP 159/62; PULSE 69; RESP 18; TEMP 36.7; O2SAT 100
[2019-07-12] MEDS: oxyCODONE 5 MG Tablet PO ×2 (05:19→11:07)
[2019-07-12 06:29] LABS: Albumin, Serum 2.2 g/dL (3.2-5.0); BUN 29 mg/dL (7-18); BUN/Creat Ratio 6.8 RATIO (10-20); Calcium,Total 8.2 mg/dL (8.5-10.1); Chloride 95 mmol/L (98-107); Creatinine, Serum 4.28 mg/dL (0.70-1.30); EST Glomerular Filtration Rate 16 mL/min (>60); Est Glom Filt Rate - Afr Amer 19 mL/min (>60); Glucose 148 mg/dL (74-106); Phosphorus 4.3 mg/dL (2.5-4.9); Potassium 4.3 mmol/L (3.5-5.1); Sodium Level 131 mmol/L (136-145)
[2019-07-12 08:00] VITALS: BP 185/75; PULSE 72; RESP 18; TEMP 36.6; O2SAT 96; O2SAT 98
[2019-07-12 08:06] LABS: Bedside Glucose 152 mg/dL (70-110)
[2019-07-12] MEDS: Insulin Lispro 100 UNIT/ML INSULN.PEN 10 UNIT SC ×2 (09:05→11:08)
[2019-07-12] MEDS: Insulin Lispro 100 UNIT/ML INSULN.PEN SC ×2 (09:05→11:09)
[2019-07-12] MEDS: SEVELAMER CARBONATE 800 MG TABLET 3200 MG PO ×2 (09:06→11:08)
[2019-07-12] MEDS: Multivitamin (Healthy Eyes) Capsule 1 CAP PO (09:06)
[2019-07-12] MEDS: Loratadine 10 MG Tablet PO (09:07)
[2019-07-12] MEDS: Fluticasone 0.05% 1 SPRAY NASAL.SRY NASAL (09:07)
[2019-07-12] MEDS: Gabapentin 300 MG Capsule PO (09:08)
[2019-07-12] MEDS: Isosorbide Mononitrate 30 MG Tablet PO (09:08)
[2019-07-12] MEDS: Pantoprazole Sodium 40 MG Tablet PO (09:08)
[2019-07-12] MEDS: Aspirin E.C. 81 MG Tablet PO (09:08)
[2019-07-12] MEDS: guaiFENesin 1,200 MG Tablet 1200 MG PO (09:08)
[2019-07-12] MEDS: Folic Acid/Vitamin B Comp W-C 1 Capsule 1 CAP PO (09:08)
[2019-07-12] MEDS: Enoxaparin 30 MG/0.3 ML Syringe SC (09:08)
[2019-07-12] MEDS: Lisinopril 20 MG Tablet PO (09:09)
[2019-07-12 09:10] VITALS: BP 185/75; PULSE 72
[2019-07-12] MEDS: Metoprolol Tartrate 50 MG Tablet PO (09:10)
[2019-07-12] MEDS: Acetaminophen 325 MG Tablet 650 MG PO (09:18)
--- NOTE | 2019-07-12 09:42 | PCM.TXEXTCAR ---
- Diet 07/06/19 00:57 Diet: Calorie Controlled Food consistency:: Regular Liquid Consistency:: Regular/Thin Diet Comments: Low potassium and low phosphate diet How many daily calories?: 1800 calorie - Routine Orders/Code Status Enema Type: Fleetz Enema Frequency: Daily PRN Suppository Type: Dulcolax 10mg Suppository Frequency: Daily PRN O2 Liters per Minute: 2 O2 Frequency: PRN Keep PO Greater than or Equal to (%): 92 Code Status: Full Code - Wound(s) Left plantar foot Wound Type: Neuropathic/Diabetic Foot Ulcer Dressing Change: Aquacel Right small toe Wound Type: Surgical Incision right lateral foot Wound Type: Neuropathic/Diabetic Foot Ulcer Dressing Change: Aquacel - Therapies Physical Therapy: Eval and Treat Occupational Therapy: Eval and Treat - Allergies/Procedures Done in Hospital Allergies/Adverse Reactions: Allergies venom-honey bee [bee venom (honey bee)] Allergy (Verified 07/05/19 20:02) Swelling sulfamethoxazole [From Bactrim] Adverse Reaction (Verified 07/05/19 20:02) Upset Stomach trimethoprim [From Bactrim] Adverse Reaction (Verified 07/05/19 20:02) Upset Stomach Procedures: None - Type of Care/Length of Stay Estimated LOS: Convalescent Care Less Than 30 days Type of Care Needed: Skilled Rehab Potential: Fair Prognosis: Fair - Additional Orders/Day of Discharge Additional Orders: use home BIPAP as per pulmonology instructions Day of Discharge: 07/12/19 - Dietary and Speech Recommendations Dietitian Recommendations/Changes: Rec diet change to 2000 stacie Cardiac/low sodium w/ fluid restriction as indicated. - Follow Up Care Primary Care Physician: Augie Washburn MD [Primary Care Provider] - Please follow up with your Primary Care Physician in: one week Please Follow Up With: Augie Washburn MD Please Follow Up With: Anca Gregorio DO When: 1-2 weeks
--- NOTE | 2019-07-12 09:46 | DS.PCM_ITS ---
Discharge Date and Diagnosis Date of Admission: 07/05/19 Date of Discharge: 07/12/19 - Primary Discharge Diagnosis Active and Suspected Problems (Last Reviewed 07/06/19 @ 09:26 by Eze Rivera MD) Community acquired pneumonia (Acute) sepsis due to community acquired pneumonia acute on chronic hypoxic respiratory failure due to community acquired pneumonia - Secondary Discharge Diagnosis Chronic Problems (Last Reviewed 07/06/19 @ 09:26 by Eze Rivera MD) Chronic ulcer of left foot with fat layer exposed (Chronic) Ulcer of right foot with fat layer exposed (Chronic) Chronic ulcer of left foot with fat layer exposed (Chronic) Malnutrition (Chronic) Type 2 diabetes mellitus with diabetic polyneuropathy (Chronic) Tailor's bunion of right foot (Chronic) Bilateral foot wounds (Chronic) Tailor's bunion of left foot (Chronic) Peripheral vascular disease (Chronic) Toe fracture, right (Chronic) Non-pressure chronic ulcer of other part of right foot with fat layer exposed (Chronic) Non-pressure chronic ulcer of other part of left foot with fat layer exposed (Chronic) Type 1 diabetes mellitus (Chronic) Morbid obesity with BMI of 40.0-44.9, adult (Chronic) Noncompliance (Chronic) CHF (congestive heart failure) (Chronic) Abnormal stress test (Chronic) TIA (transient ischemic attack) (Chronic) Pulmonary hypertension (Chronic) Morbid obesity with BMI of 40.0-44.9, adult (Chronic) End stage renal disease on dialysis (Chronic) Chronic respiratory failure with hypoxia (Chronic) HTN (hypertension) (Chronic) Hyperlipidemia (Chronic) Diabetic neuropathy (Chronic) Anemia (Chronic) SELMA (obstructive sleep apnea) (Chronic) Hospital Course and Treatment Imaging Results: Diagnostic Data Chest X-Ray 07/07/19 05:00 IMPRESSION: Increasing right perihilar/lung base infiltrate. Electronically Signed: Sudarshan Iglesias MD ([place]) at 12:04 EST , Service support , Chest CT 07/07/19 12:10 IMPRESSION: 1. Multilobar peribronchial infiltrates compatible with history provided pneumonia. 2. No pleural effusion. 3. Dilated main pulmonary artery suggesting pulmonary hypertension. Electronically Signed: Sudarshan Iglesias MD ([place]) at 13:24 EST , Service support , Consultations 07/06/19 09:09 Consult: Onc/Wound/dinkey operator Routine Comment: Reason for Consult:: Bilateral feet wound Operations: None Procedures: None Summary of Care Provided: The patient is a 48 year old M with an extensive past medical history as listed. He was admitted through the ED on 07/05/2019 with a complaint of severe weakness such that he could not even stand. He had assisted shortness of breath, nausea and vomiting as well as anorexia and sore throat and subjective fever and runny nose. Of note, patient had his right fifth toe amputated about 2 weeks prior to admission. He was admitted and managed for sepsis due to community-acquired pneumonia. He was started on IV Levaquin. Chest x-ray done showed right lower lobe infiltrate. On admission, blood pressure was markedly elevated and was also managed for hypertensive urgency. Nephrology was consulted for dialysis. Patient was was to be on BiPAP at home but had not been using it frequently. Patient had his regularly scheduled dialysis on Saturdays. Patient continues to remain short of breath and so a CT of the chest was done which showed multilobar peribronchial infiltrates compatible with pneumonia and pulmonary hilar arteries which are prominent suggesting pulmonary hypertension. Based on patient's persistent shortness of breath and fever which is still not fully settled, patient was started on IV Zosyn. Vancomycin was subsequently added on and blood cultures were repeated after initial blood cultures were negative. Gradually patient shortness of breath improved. Repeat blood cultures were also negative. He was discharged to a custodial on 07/12/2019. He is to follow-up with his primary care doctor and nephrology. Patient seen and examined prior to discharge. He felt better and denied any shortness of breath, palpitations or dizziness, chest pain, diarrhea vomiting. Review of stems otherwise negative. Labs and vitals reviewed. Home medication reviewed and reconciled. o/e: Vital Signs Height 5 ft 7 in Weight: 252 lb 6.868 oz Weight in Pounds 252.4 lbs Pulse Ox 96 Temperature 97.9 F Pulse Rate 72 Respiratory Rate 18 Blood Pressure [BP] 128/68 Blood Pressure 185/75 Blood Pressure Position [BP] Sitting Blood Pressure Position Sitting []General: Alert, Oriented x3, Cooperative, No apparent distress HEENT: Atraumatic, PERRLA, EOMI, Normocephalic Oral: Dry Mucosa Neck: Supple, No JVD, Negative Carotid Bruits Lungs: - - Decreased breath sounds bibasilarly.on 2L of oxgen Abdomen: Bowel Sounds Present, Soft, Non Tender, Non-Distended, No Hepato- splenomegaly, Obese Extremities: No clubbing, No cyanosis, No edema, Capillary Refill Less than 3 Seconds, - - mild bipedal edema (+1) Skin: No rashes, No breakdown Musculoskeletal: No Tenderness to Palpation of Joints or Extremities; AV fistula with good thrill in LUE. Midline in RUE Lymphatic: No Cervical, Supraclavicular, or Inguinal Adenopathy Neurological: Cranial nerves II-XII grossly intact Psych/Mental Status: Normal Affect, Appropriate, Alert and oriented to time, place, person, mood and affect Plan is as above. Continue home BiPAP and counseled to be compliant with it. - Physical Exam Vitals/I&O's: Vital Signs Temp Pulse Resp BP Pulse Ox 98.0 F 72 18 185/75 H 98 07/12/19 04:44 07/12/19 09:10 07/12/19 04:44 07/12/19 09:10 07/12/19 08:00 Oxygen Flow Rate (L/min) 2 Oxygen Delivery Method Nasal Cannula Weight: 252 lb 6.868 oz Body Mass Index (BMI) 39.3 Finger Stick Blood Glucose 191 Intake and Output for Last 24 Hours 07/10/19 07/11/19 07/12/19 23:59 23:59 23:59 Intake Total 1336 / 1836 2163.75 / 2163.75 487.00 / 487.00 Output Total 6000 / 6000 Balance 1336 / 1836 -3836.25 / -3836.25 487.00 / 487.00 Microbiology Past 72 Hours 07/10/19 00:05 Blood Culture (Wb) - Central Line Blood Culture - Preliminary No growth in 48 hours. 07/10/19 22:00 Interface Orders Gram Stain - Final 07/05/19 23:30 Blood Culture (Wb) - Arm Left Blood Culture - Final No growth in 5 days. 07/05/19 21:45 Blood Culture (Wb) - Right Wrist Blood Culture - Final No growth in 5 days. Laboratory Results 07/10/19 13:05: Diff Path Review Reviewed 07/11/19 11:45: POC Glucose 234 H 07/11/19 14:11: Hep Bs Antigen Non-Reactive 07/11/19 18:12: POC Glucose 110 07/11/19 22:50: POC Glucose 170 H 07/12/19 06:00: Sodium 131 L, Potassium 4.3, Chloride 95 L, Carbon Dioxide 29.0, BUN 29 H, Creatinine 4.28 H, Estim Creat Clear Calc 19.30, Est GFR (MDRD) Af Amer 19 L, Est GFR (MDRD) Non-Af 16 L, BUN/Creatinine Ratio 6.8 L, Glucose 148 H , Calcium 8.2 L, Phosphorus 4.3, Albumin 2.2 L 07/12/19 08:00: POC Glucose 152 H Current Medications Acetaminophen (Tylenol) 650 mg PO Q6H PRN PRN PRN Reason: Pain Score 1-10/Temp > 100.7 F Last Admin: 07/12/19 09:18 Dose: 650 mg Documented by: Albuterol Sulfate (Ventolin Aerosols) 2.5 mg INHALATION Q2H PRN PRN Reason: sob/wheezing Last Admin: 07/10/19 19:04 Dose: 2.5 mg Documented by: Aspirin (Ecotrin) 81 mg PO DAILY [facility] Last Admin: 07/12/19 09:08 Dose: 81 mg Documented by: Atorvastatin Calcium (Lipitor) 20 mg PO QHS [facility] Last Admin: 07/11/19 22:52 Dose: 20 mg Documented by: Cyclobenzaprine HCl (Flexeril) 10 mg PO TID PRN PRN PRN Reason: SPASMS Last Admin: 07/11/19 22:52 Dose: 10 mg Documented by: Enoxaparin Sodium (Lovenox) 30 mg SC DAILY [facility] Last Admin: 07/12/19 09:08 Dose: 30 mg Documented by: Fluticasone Propionate (Flonase Nasal [place]) 1 spray NASAL DAILY [facility] Last Admin: 07/12/19 09:07 Dose: 1 spray Documented by: Gabapentin (Neurontin) 300 mg PO BID [facility] Last Admin: 07/12/19 09:08 Dose: 300 mg Documented by: Glucagon () 1 mg IM .X1 PRN PRN Reason: Hypoglycemia Guaifenesin (Mucinex) 1,200 mg PO BID [facility] Last Admin: 07/12/19 09:08 Dose: 1,200 mg Documented by: Hydralazine HCl (Apresoline Iv) 10 mg IV Q4H PRN PRN PRN Reason: SBP > 160 Last Admin: 07/06/19 17:12 Dose: 10 mg Documented by: Dextrose (Dextrose 10%-Water) 250 mls @ 999 mls/hr IV .Q16M PRN; Protocol PRN Reason: HYPOGLYCEMIA Piperacillin Sod/Tazobactam (Sod 3.375 gm/ Sodium Chloride) 50 mls @ 12.5 mls/hr IV Q12 [facility] Last Infusion: 07/12/19 02:52 Dose: Infused Documented by: Sodium Chloride () 250 mls @ 15 mls/hr IV .[id number] PRN PRN Reason: Saline Flush Last Infusion: 07/12/19 05:20 Dose: 0 mls/hr Documented by: Sodium Chloride () 250 mls @ 15 mls/hr IV .[id number] PRN PRN Reason: Additional IVPB Infusion Vancomycin IV Pharmacy to Dose (1 ea/ Sodium Chloride) 500 mls @ 250 mls/hr IV X1 PRN; Protocol PRN Reason: Rx to Dose Insulin Human Lispro (Humalog Kwikpen (Bkc)) 0 unit SC ACHS [facility]; Protocol Last Admin: 07/12/19 09:05 Dose: 1 u Documented by: Insulin Human Lispro (Humalog Kwikpen (Bkc)) 10 unit SC TIDCM [facility] Last Admin: 07/12/19 09:05 Dose: 10 u Documented by: Isosorbide Mononitrate (Imdur) 30 mg PO DAILY [facility] Last Admin: 07/12/19 09:08 Dose: 30 mg Documented by: Lisinopril (Zestril) 20 mg PO DAILY [facility] Last Admin: 07/12/19 09:09 Dose: 20 mg Documented by: Loratadine (Claritin) 10 mg PO DAILY [facility] Last Admin: 07/12/19 09:07 Dose: 10 mg Documented by: Melatonin (Melatonin) 3 mg PO QHS PRN PRN PRN Reason: INSOMNIA Metoprolol Tartrate (Lopressor (Beta Emmanuel)) 50 mg PO BID [facility] Last Admin: 07/12/19 09:10 Dose: 50 mg Documented by: Multivit/Ca Carb/B Cmplx/FA/Prenat (Nephrocaps, Renaphro) 1 capsule PO DAILY [facility] Last Admin: 07/12/19 09:08 Dose: 1 capsule Documented by: [facility]ivitamins/Minerals (Healthy [facility]) [facility] Last Admin: 07/12/19 09:06 Dose: 1 capsule Documented by: Ondansetron HCl (Zofran) 4 mg IV Q8H PRN PRN PRN Reason: NAUSEA/VOMITING Oxycodone HCl (Oxyir) 5 mg PO Q6H PRN PRN PRN Reason: Pain Score -04/11 Last Admin: 07/12/19 05:19 Dose: 5 mg Documented by: Pantoprazole Sodium (Protonix) 40 mg PO DAILY [facility] Last Admin: 07/12/19 09:08 Dose: 40 mg Documented by: Promethazine HCl (Phenergan Tablet) 25 mg PO TID PRN PRN PRN Reason: VOMITING Last Admin: 07/08/19 16:44 Dose: 25 mg Documented by: Sevelamer Carbonate (Renvela) 3,200 mg PO TIDCM [facility] Last Admin: 07/12/19 09:06 Dose: 3,200 mg Documented by: Sodium Chloride () 10 - 40 ml IV UD PRN PRN Reason: SALINE FLUSH Last Admin: 07/11/19 22:53 Dose: 10 ml Documented by: Throat Lozenges (Cepacol Sore Throat Lozenge) 1 lozenge MUCOUS MEM Q2H PRN PRN PRN Reason: SORE THROAT Last Admin: 07/11/19 23:02 Dose: 1 lozenge Documented by: Trazodone HCl (Desyrel) 50 mg PO QHS [facility] Last Admin: 07/11/19 22:52 Dose: 50 mg Documented by: Discharge Diet: Renal Diet Discharge Activity: Return to Normal Activity Home Medications: Medications to take at Discharge Atorvastatin Calcium [Lipitor] 20 mg PO QHS 10/11/17 Vits A,C,E/Lutein/Minerals [Ocuvite with Lutein Tablet] 1 ea PO DAILY 10/11/17 Folic Acid/Vitamin B Comp W-C [Nephrocaps, Renaphro] 1 cap PO DAILY 10/27/17 albuterol sulfate 90 mcg/actuation aerosol inhaler 2 puff INHALATION Q4H PRN #18 g 02/26/18 Aspirin E.C. [Ecotrin] 81 mg PO DAILY 03/23/18 Cyclobenzaprine HCl 10 mg PO TID PRN PRN 03/23/18 Fluticasone 0.05% [Flonase Nasal [place]] 1 spray NASAL DAILY 03/23/18 Gabapentin [Neurontin] 300 mg PO BID 03/23/18 isosorbide mononitrate 30 mg tablet,extended release 24 hr 30 mg PO DAILY #30 tab 07/24/18 Acetaminophen [Tylenol Tablet] 650 mg PO Q6H PRN PRN tab 09/19/18 Guaifenesin Dm [Robitussin Dm] 10 ml PO Q6H PRN PRN #1 bottle 11/21/18 Furosemide [Lasix] 40 mg PO BID 03/12/19 Metoprolol Tartrate [Lopressor (beta emmanuel)] 50 mg PO BID 03/12/19 Omeprazole 40 mg PO DAILY 03/12/19 proMETHazine tablet [Phenergan tablet] 25 mg PO TID PRN 03/13/19 Sevelamer HCl [Renagel] 2,400 mg PO TID #0 03/20/19 Insulin Lispro [Humalog KwikPen] See Protocol SUBCUT ACHS insuln.pen 05/20/19 Insulin Aspart [Novolog Flexpen] 10 units SUBCUT TIDCM 07/05/19 Oxycodone HCl/Acetaminophen [Oxycodone-Acetaminophen 5-325] 1 ea PO Q6H PRN PRN 07/06/19 traZODone [Desyrel] 50 mg PO QHS 07/06/19 Amlodipine [Norvasc] 10 mg PO DAILY #30 tab 07/12/19 Following Prescrptions Were Given to Patient: Amlodipine [Norvasc] 10 mg PO DAILY #30 tab Prescription Printed Primary Care Physician: Augie Washburn MD [Primary Care Provider] - Please follow up with your Primary Care Physician in: one week Please Follow Up With: Augie Washburn MD Please Follow Up With: Anca Gregorio DO When: 1-2 weeks Disposition: Long-Term facility Minutes spent on discharge:: 45 Patient Condition:: Stable Medical Necessity - Tobacco Use Smoking Status: Never smoker Meaningful Use Info Meaningful Use Diagnoses (Choose all that apply): None applicable Code Visit Inpatient E&M: 34523 Disch Hosp
--- NOTE | 2019-07-12 10:19 | CASEMGMT ---
Orders faxed to [facility]. Convalescent completed on . Transport was set up yesterday with [facility] for noon via wc van. Gertrude at [facility] notified yesterday. RN and department secretary notified. Plan: [facility] under skilled level of care on a convalescent stay. [facility] transported via wc van.
--- NOTE | 2019-07-12 11:01 | CASEMGMT ---
SW spoke with patient and he is not sure he can get his cpap to [facility]. WILFREDO called Gertrude at [facility] and left her a voice mail letting her know SW will fax the settings for bipap as patient needs this and may not be able to bring in his own cpap. Settings were faxed. Agatha SHEETS MSW
[2019-07-12 11:16] LABS: Bedside Glucose 236 mg/dL (70-110)
--- NOTE | 2019-07-12 12:05 | NURSING ---
report called to asher at [facility] with no questions voiced. pt dressed and ready with belongings packed and ready
== END 2019-07-12 12:15 | disposition skilled nursing facility (03) | DRG 871 ==
LOC: ED 23:54 → PCU 07-06 01:19
PROVIDERS: Internal Medicine; Internal Medicine Nephrology; Admitting Provider Hospitalist; Emergency Provider Emergency Medicine; Family Provider Internal Medicine; PCP Internal Medicine; Visit Provider Student in an Organized Health Care Education/Training Program
DX: A41.9 Sepsis, unspecified organism (principal); J96.21 Acute and chronic respiratory failure with hypoxia; N18.6 End stage renal disease; J18.9 Pneumonia, unspecified organism; E87.1 Hypo-osmolality and hyponatremia; I13.2 Hypertensive heart and chronic kidney disease with heart failure and with stage 5 chronic kidney disease, or end stage renal disease; I50.32 Chronic diastolic (congestive) heart failure; I16.0 Hypertensive urgency; Z99.2 Dependence on renal dialysis; E11.42 Type 2 diabetes mellitus with diabetic polyneuropathy; I27.20 Pulmonary hypertension, unspecified; E66.01 Morbid (severe) obesity due to excess calories; Z68.39 Body mass index [BMI] 39.0-39.9, adult; E78.5 Hyperlipidemia, unspecified; G47.33 Obstructive sleep apnea (adult) (pediatric); Z89.421 Acquired absence of other right toe(s); E11.22 Type 2 diabetes mellitus with diabetic chronic kidney disease; Z79.4 Long term (current) use of insulin; Z99.81 Dependence on supplemental oxygen; E87.5 Hyperkalemia; D63.8 Anemia in other chronic diseases classified elsewhere; E11.621 Type 2 diabetes mellitus with foot ulcer; L97.522 Non-pressure chronic ulcer of other part of left foot with fat layer exposed; L97.512 Non-pressure chronic ulcer of other part of right foot with fat layer exposed
CPT/HCPCS: 36415; 36600; 71045; 71046; 71250; 80048; 80053; 80069; 81001; 82803; 82962; 83605; 84132; 84484; 85025; 85610; 85730; 87040; 87070; 87077; 87086; 87088; 87186; 87205; 87340; 90937; 93005; 94002; 94003; 94640; 97110; 97162; 97166; 97530; 97535; 97802; 99251; 99285; J7030; J7040; J7050; A4216; G0257; G0463; J2405

== ENCOUNTER 2019-07-17 14:45 | Outpatient (RCR) | payer MEDICARE, SELFPAY ==
[2019-07-03 00:42] VITALS: BP 185/78; PULSE 67; RESP 18; TEMP 36.1
[2019-07-17 14:42] VITALS: RESP 16; TEMP 36.2; BMI 38.3
--- NOTE | 2019-07-17 15:43 | PCM.WC.PN ---
(1) Ulcer of right foot with fat layer exposed Status: Chronic Code(s): L97.512 - Non-pressure chronic ulcer of other part of right foot with fat layer exposed (2) Chronic ulcer of left foot with fat layer exposed Status: Chronic Code(s): L97.522 - Non-pressure chronic ulcer of other part of left foot with fat layer exposed (3) Localized edema Status: Inactive Code(s): R60.0 - Localized edema (4) Malnutrition Status: Chronic Code(s): E46 - Unspecified protein-calorie malnutrition (5) Type 2 diabetes mellitus with diabetic polyneuropathy Status: Chronic Qualifiers: Diabetes mellitus prison insulin use: with prison use Qualified Code(s): E11.42 - Type 2 diabetes mellitus with diabetic polyneuropathy; Z79.4 - tape calender (current) use of insulin Code(s): E11.42 - Type 2 diabetes mellitus with diabetic polyneuropathy (6) Peripheral vascular disease Status: Chronic Code(s): I73.9 - Peripheral vascular disease, unspecified (7) Morbid obesity with BMI of 40.0-44.9, adult Status: Chronic Code(s): E66.01 - Morbid (severe) obesity due to excess calories; Z68.41 - Body mass index (BMI) 40.0-44.9, adult (8) Noncompliance Status: Chronic Code(s): Z91.19 - Patient's noncompliance with other medical treatment and regimen Type of Wound Date of Service: 07/17/19 Chief Complaint: Right foot ulcer. Left foot ulcer. right foot post operative fifth ray resection History of Wound: This 48-year-old male with diabetes, peripheral vascular disease (calcified vessels), chronic kidney disease, sleep apnea, obesity and other comorbidities had chronic bilateral foot ulcers with osteomyelitis of the right fifth metatarsal head. He underwent right fifth ray resection on May 16, 2019 at [facility] to address this condition. He was subsequently treated with IV and oral antibiotics under the management of infectious disease and continues on a course of vancomycin and cefepime intravenously on hemodialysis days and oral Flagyl as well. The stop date of antibiotics is 06/27/2019. He denies fever, chill, nausea, vomiting. It is also noted he had prior vascular intervention with Dr. Tuttle earlier this year. Progress of Wound: stable - Physical Exam Vital Signs Temp Pulse Resp BP 97.1 F L 67 16 185/78 H 07/17/19 14:42 07/03/19 00:42 07/17/19 14:42 07/03/19 00:42 General: Alert, Oriented x3, Cooperative, No apparent distress Extremities: No cyanosis, Capillary Refill Less than 3 Seconds, No Calf Tenderness, Diminished Peripheral Pulses, Edema, - - fifth ray resection right Skin: Ulcer/ Wound - no purulence, no erythema, no streaking, no odor noted. granular base right foot. fibrous base left. adjacent skin is hairless and atrophic Wound Measurements and Assessment WC - Nurse 1 - General Ulcer Measurement Start: 07/11/19 09:51 Freq: Status: Active Protocol: Activity Type Activity Date Activity User E-Sign Co-Sign Detail Recorded Client Recorded Date Recorded By Document 07/17/19 14:42 [facility] [id number] 07/17/19 14:48 BM 07/17/19 14:42 Wound Center Nurse 1 [Ulcer Assessment] #4- R LAT PLANTAR -Combined with other wound No -Current Size (cm) - Length 0.5 -Current Size (cm) - Width 0.2 -Current Size (cm) - Depth 0.1 -Total Square Cm 0.10 -Date of Last Picture (Recall this 07/17/19 field) -Photo Taken Yes -Epithelialization None Present -Tunneling No -Undermining/Tunneling No -Circular Undermining No -Exudate Amt None Present -Wound Margin Distinct, Outline Attached -Granulation Amt None Present (0 %) -Slough/Fibrin Yes -Necrosis Amt Medium (34-66%) -Necrotic Tissue Type Adherent Slough -Texture (Amanda-wound Skin Appearance) Assessed, Scarring -Moisture (Amanda-wound Skin Appearance Assessed,Dry/ ) Scaly -Color (Amanda-wound Skin Appearance) Assessed -Temperature (Amanda-wound Skin No Abnormality Appearance) (Pt Warm) -Tenderness on Palpation (Amanda-wound No Skin Appearance) -Ulcer Cleansing Rinsed/ Irrigated with Saline -Foul Odor after Cleansing No -Anesthetic Used 4% Lidocaine Solution #3- L PLANTAR -Combined with other wound No -Current Size (cm) - Length 1.1 -Current Size (cm) - Width 1 -Current Size (cm) - Depth 0.1 -Total Square Cm 1.1 -Date of Last Picture (Recall this 07/17/19 field) -Photo Taken Yes -Epithelialization None Present -Tunneling No -Undermining/Tunneling No -Circular Undermining No -Exudate Amt None Present -Wound Margin Distinct, Outline Attached -Granulation Amt None Present (0 %) -Slough/Fibrin Yes -Necrosis Amt Large (67-100%) -Necrotic Tissue Type Eschar -Texture (Amanda-wound Skin Appearance) Assessed,Callus ,Scarring -Moisture (Amanda-wound Skin Appearance Assessed,Dry/ ) Scaly -Color (Amanda-wound Skin Appearance) Assessed -Temperature (Amanda-wound Skin No Abnormality Appearance) (Pt Warm) -Tenderness on Palpation (Amanda-wound No Skin Appearance) -Ulcer Cleansing Rinsed/ Irrigated with Saline -Foul Odor after Cleansing No -Anesthetic Used 5% Lidocaine Gel WC - Nurse 2 - General Ulcer CM Notes Start: 07/11/19 09:51 Freq: Status: Active Protocol: Activity Type Activity Date Activity User E-Sign Co-Sign Detail Recorded Client Recorded Date Recorded By Document 07/17/19 15:03 JF [id number] 07/17/19 15:06 07/17/19 15:03 Wound Center Nurse 2 [Procedure/Treatment] #4- R LAT PLANTAR -Time 15:03 -Correct Patient Yes -Correct Side, Site, Position Yes -Correct Procedure Yes -Procedure Performed Yes -Type of Procedure Debridement -Clinical Debridement Subcutaneous -Post Debridement Size (cm) - Length 0.5 -Post Debridement Size (cm) - Width 0.3 -Post Debridement Size (cm) - Depth 0.2 -Total Square Cm 0.15 -Wound/Ulcer Outcome Not Healed -Ulcer Cleansing Rinsed/ Irrigated with Saline -Foul Odor after Cleansing No -Bioengineered Tissue No -Bleeding Controlled with Pressure -Offloading Yes -Type of Offloading Surgical Shoe -Treatment Response Procedure Tolerated Well #3- L PLANTAR -Time 15:03 -Correct Patient Yes -Correct Side, Site, Position Yes -Correct Procedure Yes -Procedure Performed Yes -Type of Procedure Debridement -Clinical Debridement Subcutaneous -Post Debridement Size (cm) - Length 1.5 -Post Debridement Size (cm) - Width 1.9 -Post Debridement Size (cm) - Depth 0.1 -Total Square Cm 2.85 -Wound/Ulcer Outcome Not Healed -Ulcer Cleansing Rinsed/ Irrigated with Saline -Foul Odor after Cleansing No -Bioengineered Tissue No -Bleeding Controlled with Pressure -Offloading No -Type of Offloading Surgical Shoe -Treatment Response Procedure Tolerated Well [See Physician Procedure note for Specifics] Pain Scale: 0-10 Numeric [Pain] -Is Patient Pain Free? Yes Musculoskeletal: No Tenderness to Palpation of Joints or Extremities, Muscle Wasting Neurological: - - lack of epicritic sensation via light touch bilateral lower extremities Psych/Mental Status: Normal Affect, Appropriate Debridement Note Post-Debridement Measurements/Treatment WC - Nurse 2 - General Ulcer CM Notes Start: 07/11/19 09:51 Freq: Status: Active Protocol: Activity Type Activity Date Activity User E-Sign Co-Sign Detail Recorded Client Recorded Date Recorded By Document 07/17/19 15:03 JF [id number] 07/17/19 15:06 MICHAEL 07/17/19 15:03 Wound Center Nurse 2 #4- R LAT PLANTAR -Time 15:03 -Correct Patient Yes -Correct Side, Site, Position Yes -Correct Procedure Yes -Procedure Performed Yes -Type of Procedure Debridement -Clinical Debridement Subcutaneous -Post Debridement Size (cm) - Length 0.5 -Post Debridement Size (cm) - Width 0.3 -Post Debridement Size (cm) - Depth 0.2 -Total Square Cm 0.15 -Wound/Ulcer Outcome Not Healed -Ulcer Cleansing Rinsed/ Irrigated with Saline -Foul Odor after Cleansing No -Bioengineered Tissue No -Bleeding Controlled with Pressure -Offloading Yes -Type of Offloading Surgical Shoe -Treatment Response Procedure Tolerated Well #3- L PLANTAR -Time 15:03 -Correct Patient Yes -Correct Side, Site, Position Yes -Correct Procedure Yes -Procedure Performed Yes -Type of Procedure Debridement -Clinical Debridement Subcutaneous -Post Debridement Size (cm) - Length 1.5 -Post Debridement Size (cm) - Width 1.9 -Post Debridement Size (cm) - Depth 0.1 -Total Square Cm 2.85 -Wound/Ulcer Outcome Not Healed -Ulcer Cleansing Rinsed/ Irrigated with Saline -Foul Odor after Cleansing No -Bioengineered Tissue No -Bleeding Controlled with Pressure -Offloading No -Type of Offloading Surgical Shoe -Treatment Response Procedure Tolerated Well Pain Scale: 0-10 Numeric Is Patient Pain Free? Yes Wound debrided: sub 5th metatarsal head Laterality: Left Wound Grade/Stage: grade 1 Type of Debridement: Excisional debridement Anesthesia Used: 5% Lidocaine Gel Depth: in the subcutaneous layer Percentage of wound debrided: 100 Instrument Used: #15 blade Tissue Removed: fibrous, devitalized subcutaneous, biofilm, slough Severity: Fat Layer Exposed Amount of bleeding with debridement: Mild Bleeding Controlled with: Pressure Patient tolerated procedure well - Additional Wound Wound debrided: lateral forefoot Laterality: Right Wound Grade/Stage: grade 1 Type of Debridement: Excisional debridement Anesthesia Used: 5% Lidocaine Gel Depth: in the subcutaneous layer Percentage of wound debrided: 100 Instrument Used: #15 blade Tissue Removed: fibrous, devitalized subcutaneous, biofilm, slough Severity: Fat Layer Exposed Amount of bleeding with debridement: Mild Bleeding Controlled with: Pressure Patient tolerated procedure: Patient tolerated procedure well Assessment/Plan Active Problems (Last Reviewed 07/06/19 @ 09:26 by Eze Rivera MD) Sepsis (Acute) HCAP (healthcare-associated pneumonia) (Acute) Assessment: Diabetes with neuropathy (hemoglobin A1c 12%). Status post right fifth ray resection for treatment of osteomyelitis and chronic ulcer, healing well without local signs of infection. Left sub-fifth metatarsal head ulcer, grade 1 and no infection. Foot deformities including hammertoes, tailor bunion, and hallux limitus bilateral. Peripheral vascular disease now status post vascular surgery intervention. Other comorbidities including noncompliance, renal disease on dialysis, cardiac history. Malnutrition suspected. Gait instability Plan: I reviewed and discussed his case. Subcutaneous excisional debridement was performed to the right and left foot as noted in the clinical panel. To change dressing daily with [employer] as he has been performing is ready. To continue with offloading surgical shoes and heel weight-bear. To use assistive device as needed. His surgical site is stable and was also covered with a dry gauze. His clearance fragment was sent to pathology did not demonstrate residual osteomyelitis. His clearance fragment of the right fifth metatarsal was sent to microbiology did demonstrate Enterococcus faecalis growth. His wound culture prior to surgery demonstrated mixed organisms including enterococcus, bacillus, corynebacterium, and anaerobes. He is on antibiotics until 06/27/2019 per infectious disease guideline. He is reassured his clinical signs of infection have resolved and his site is stabilizing. To continue to follow-up with infectious disease as advised. . Vascular surgery intervention is noted in greatly appreciated. He had an abdominal pelvic right lower extremity arteriogram with angioplasty of the right proximal anterior tibial artery and right tibial peroneal trunk that was successful. To follow-up with Dr. Tuttle as scheduled. To continue with nutritional supplementation proper glycemic control to optimize healing. Compliance was discussed. It is noted that he is at risk for limb loss due to his condition including his multiple comorbidities. His lab trends will be followed. Application of advanced wound healing prior will be considered pending continued progress. This is medically necessary for limb salvage. He is high risk for continued delayed healing, further amputation, and loss of limb. The indications and anticipated application healing management were discussed. He is amendable to proceed once appropriate. Prior authorization will be obtained prior to proceeding. His left foot ulcer site actually appears more devitalized today with fibrous tissue. I recommend additional debridement at home with zenon to help prepare the wound bed for an advanced product and to reduce risk of bacterial contamination. I answered all his questions. The patient was advised to return to the wound healing center in 1 week or call sooner if he is any questions or concerns.
== END 2019-08-02 23:59 ==
LOC: WC 14:45
PROVIDERS: Family Provider Internal Medicine; PCP Internal Medicine; Visit Provider Podiatrist
DX: E11.621 Type 2 diabetes mellitus with foot ulcer (principal); E11.42 Type 2 diabetes mellitus with diabetic polyneuropathy; L97.522 Non-pressure chronic ulcer of other part of left foot with fat layer exposed; E11.69 Type 2 diabetes mellitus with other specified complication; N18.9 Chronic kidney disease, unspecified; E11.22 Type 2 diabetes mellitus with diabetic chronic kidney disease; M86.9 Osteomyelitis, unspecified; L97.512 Non-pressure chronic ulcer of other part of right foot with fat layer exposed; E11.51 Type 2 diabetes mellitus with diabetic peripheral angiopathy without gangrene; E66.01 Morbid (severe) obesity due to excess calories; Z68.41 Body mass index [BMI] 40.0-44.9, adult; Z71.3 Dietary counseling and surveillance; Z91.19 Patient's noncompliance with other medical treatment and regimen; R26.89 Other abnormalities of gait and mobility; M20.40 Other hammer toe(s) (acquired), unspecified foot; M21.629 Bunionette of unspecified foot; M20.5X2 Other deformities of toe(s) (acquired), left foot; M20.5X1 Other deformities of toe(s) (acquired), right foot
CPT/HCPCS: 11042

== ENCOUNTER 2019-07-19 21:53 | Inpatient (IN) | payer MEDICARE, MEDICAID, SELFPAY ==
[2019-07-19 21:53] VITALS: BMI 39.3
[2019-07-19 21:54] VITALS: BP 193/95; PULSE 90; RESP 16; TEMP 37.8; O2SAT 88; BMI 40.7
--- NOTE | 2019-07-19 22:13 | EKG12_ITS ---
Test Reason : Blood Pressure : / mmHG Vent. Rate : 093 BPM Atrial Rate : 093 BPM P-R Int : 150 ms QRS Dur : 084 ms QT Int : 366 ms P-R-T Axes : 048 -06 112 degrees QTc Int : 455 ms Normal sinus rhythm Nonspecific ST and T wave abnormality Abnormal ECG Confirmed by HOUSTON LOMELI, CANDIE ([id number]), story editor KULWINDER MARTINEZ ([id number]) on 07/23/2019 9:54:10 AM Referred By: YESSI Confirmed By:CANDIE CONRAD MD
--- NOTE | 2019-07-19 22:15 | RAD_ITS ---
HISTORY: SOB ADDITIONAL HISTORY: None provided. TECHNIQUE: Frontal chest radiograph. Number of images including paperwork: 1 COMPARISON: 07/07/2019 FINDINGS: LUNGS AND PLEURA: No dense consolidation. Right midlung opacity has decreased. Mild perihilar opacities remain. No sizable pleural effusion. CARDIAC SILHOUETTE: Stable. MEDIASTINUM AND ODELL: Stable. UPPER ABDOMEN: Unremarkable. SKELETON AND SOFT TISSUES: No acute findings. OTHER DEVICES AND HARDWARE: None. RAD/Chest 1 View (Portable) IMPRESSION: Decrease in right perihilar opacity. Chest otherwise appears similar. at 2238 Reported and signed by: Ashli Vazquez MD Electronically Signed: Ashli Vazquez MD at 22:37 EST Tel , Service support ,
--- NOTE | 2019-07-19 22:20 | ED.DCSUM_ITS ---
- ER Visit Summary Date of Service: 07/19/19 Chief Complaint: Shortness of breath History of Present Illness: The patient is a 48 M presenting with shortness of breath. Patient states this started last night. He has had fever, chills, shortness of breath. He has had a productive cough. He has nausea with no vomiting. He has chest pain with coughing. He was admitted recently for pneumonia. He was released from custodial yesterday. He states that he may have left too early. He has history of end-stage renal disease on hemodialysis, Monday. He completed dialysis yesterday. Physical Examination: Vitals are stable. Temperature 100.1. Alert no acute distress. Pulse ox 88% on room air. HEENT exam is unremarkable. Neck is supple. No meningismus Lungs are diminished bilaterally. Heart is regular rate and rhythm. Abdomen is soft nontender nondistended. No guarding or rebound Extremities are unremarkable. Skin is warm and dry. No focal neurologic deficit. Remainder of exam is unremarkable. Emergency Department Course and Treatment: EKG is sinus rhythm rate of 93. Chest x-ray shows decrease in right perihilar opacity. Chest otherwise appears similar. CBC shows white count 17.5, hemoglobin 9.7. Chemistries show sodium 131, glucose 404, BUN 37, creatinine 5.77. Troponin negative. Blood cultures were sent. He was given Tylenol. Lactic acid normal. He was given vancomycin, Zosyn IV. Discussed with the hospitalist for admission. Disposition: Admission Impression: Sepsis, HCAP This note was generated with [employer] dictation software. It may contain incorrect words, spelling, and punctuation that were not noted in review of the chart prior to signing ED Disposition - Plan for ED Patient:
[2019-07-19 22:37] LABS: Absolute Lymphocyte Count 0.96 X10^3/uL (0.83-4.51); Absolute Neutrophil Count 14.9 X10^3/uL (2.0-7.7); Basophil# 0.11 X10^3/uL; Basophil% 0.6 % (0-1); Eosinophil# 0.37 X10^3/uL; Eosinophils% 2.1 % (0-5); Hematocrit 32.2 % (40-54); Hemoglobin 9.7 g/dL (13.0-16.5); Lymphocyte # 0.96 X10^3/ul (4.0); Lymphocyte % 5.5 % (19-41); Mean Corp Hgb Conc 30.1 g/dL (32-36); Mean Corpuscular Volume 92.8 fL (80-94); Mean Platelet Vol. 9.9 fl (6.2-12.0); Monocyte# 0.91 X10^3/uL; Monocyte% 5.2 % (0-10); NRBC Flagged by Analyzer 0 % (0-5); Neutrophil # 14.92 X10^3/uL (2.7-7.7); Neutrophil % 85.4 % (47-70); Platelet Count 320 K/mm3 (150-450); RBC Distribution Width CV 17.2 % (11.6-14.6); RBC Distribution Width SD 58.4 fl (35.1-43.9); Red Blood Count 3.47 M/mm3 (4.6-6.2); White Blood Count 17.5 K/mm3 (4.4-11.0)
[2019-07-19] MEDS: Acetaminophen 500 MG Tablet 1000 MG PO (22:56)
[2019-07-19 22:58] LABS: Anion Gap 11 (5-15); BUN 37 mg/dL (7-18); BUN/Creat Ratio 6.4 RATIO (10-20); Calcium,Total 8.9 mg/dL (8.5-10.1); Chloride 93 mmol/L (98-107); Creatinine, Serum 5.77 mg/dL (0.70-1.30); EST Glomerular Filtration Rate 11 mL/min (>60); Est Glom Filt Rate - Afr Amer 13 mL/min (>60); Estimated Creatinine Clearance 14.32 ml/min; Glucose 404 mg/dL (74-106); Potassium 4.8 mmol/L (3.5-5.1); Sodium Level 131 mmol/L (136-145)
[2019-07-19 23:10] LABS: Lactic Acid 1.9 mmol/L (0.4-1.9)
[2019-07-19 23:14] VITALS: O2SAT 85
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
--- NOTE | 2019-07-19 23:20 | ED.RN ---
3 RN's have tried to obtain line for this PT. Some blood work was sent, still need blood cultures and IV. Lien RN notified Dr. Laws who suggested that we keep trying. Message sent to Nursing Heavy Equipment Sales Associate for her to try.
[2019-07-19 23:33] VITALS: O2SAT 86
[2019-07-19] MEDS: Ondansetron 4 MG/2 ML Vial IV (23:37)
[2019-07-20] VITALS (22 sets, daily range): BP systolic 121–184; BP diastolic 56–91; PULSE 68–95; RESP 18–24; TEMP 37–38.2; O2SAT 94–99; BMI 40.9; BMI 41.0
[2019-07-20 01:17] LABS: Magnesium 2.1 mg/dL (1.6-2.6); Phosphorus 3.7 mg/dL (2.5-4.9)
[2019-07-20] MEDS: hydrALAZINE 20 MG/ML Vial 10 MG IV (01:39)
[2019-07-20] MEDS: 0.9% Normal Saline 1,000 ML 100 ML IV (01:41)
[2019-07-20 02:06] LABS: Bedside Glucose 413 mg/dL (70-110)
[2019-07-20] MEDS: Insulin Lispro 100 UNIT/ML INSULN.PEN 20 UNIT SC (02:29)
--- NOTE | 2019-07-20 06:20 | PCM.RX.CS ---
Consult Pharmacy has been consulted to manage selected antiobiotic: Vancomycin Type of Consult: New start Suspected Infection: Sepsis Labs: Sodium 131 mmol/L (136-145) L 07/19/19 22:30 Potassium 4.8 mmol/L (3.5-5.1) 07/19/19 22:30 Chloride 93 mmol/L (98-107) L 07/19/19 22:30 Carbon Dioxide 27.0 mmol/L (21.0-32.0) 07/19/19 22:30 Anion Gap 11 (5-15) 07/19/19 22:30 BUN 37 mg/dL (7-18) H 07/19/19 22:30 Creatinine 5.77 mg/dL (0.70-1.30) H 07/19/19 22:30 Est GFR (MDRD) Af Amer 13 mL/min (>60) L 07/19/19 22:30 Est GFR (MDRD) Non-Af 11 mL/min (>60) L 07/19/19 22:30 BUN/Creatinine Ratio 6.4 RATIO (10-20) L 07/19/19 22:30 Glucose 404 mg/dL (74-106) H 07/19/19 22:30 Microbiology: Microbiology 07/19/19 22:50 Mucosa - Nasopharyngeal Influenza Types A,B Direct FA (JAEL) - Final Estimated Creatinine Clearance: DIALYSIS Goal Trough: 15-20 mcg/mL Pharmacy Plan for Drug Dosing: Pharmacy Service will continue to monitor and adjust dosing as required. Medications Vancomycin HCl (Vancomycin) 1,000 mg in 200 mls @ 200 mls/hr IV X1 ONE Stop: 07/20/19 10:59 DOSE TO BE GIVEN AFTER DIALYSIS ON 07/20 Follow-Up Labs: Trough Vancomycin
--- NOTE | 2019-07-20 06:27 | CON.PCM_ITS ---
Reason for Consult Date of Consultation: 07/20/19 Reason for Consultation: Recurrent pneumonia History of Present Illness: The patient is a 48-year-old male, with a history as outlined below, who presented to the emergency department on July 19 with complaints of shortness of breath. The patient was just discharged from the hospital on July 12 after having been admitted for 1 week, during which time, he was treated for community-acquired pneumonia. The patient was positive for Staphylococcus hemolyticus on respiratory culture on July 10. He was treated with IV vancomycin and Zosyn during his previous hospitalization. The patient does have a longstanding history of medical noncompliance and dietary indiscretions. In addition, the patient has end-stage renal disease due to diabetes and hypertension for which he is on scheduled hemodialysis. He has persistent diabetic foot ulcers and is followed by podiatry in the wound center. The patient reports that upon his discharge from the hospital previously he was sent to a [facility] facility, where he remained until this past . Upon returning home, he once again to feel ill and developed shortness of breath. He also reports that he is currently coughing up phlegm. The patient denies having missed any recent dialysis sessions. He does report a history of obstructive sleep apnea and claims that he utilizes nocturnal BiPAP therapy on a routine, regular basis. On presentation to the emergency department, the patient was noted to be febrile with a temperature of 100.1 ?F. He was hypertensive with a documented initial blood pressure of 193/95. Saturations were noted to be 88% on room air. Labora tory evaluation revealed an elevated white blood cell count to 17.5k. Lactate was noted to be normal at 1.9. Troponin was negative. Plain film chest x-ray was of poor quality but revealed a resolving right middle lobe opacity. Cultures were obtained and the patient was started on antimicrobial therapy. He was subsequently admitted to the medical surgical floor for further management. Past Medical History Past Medical History (Chronic Problems): Chronic Problems (Last Reviewed 07/06/19 @ 09:26 by Eze Rivera MD) Chronic ulcer of left foot with fat layer exposed (Chronic) Ulcer of right foot with fat layer exposed (Chronic) Chronic ulcer of left foot with fat layer exposed (Chronic) Malnutrition (Chronic) Type 2 diabetes mellitus with diabetic polyneuropathy (Chronic) Tailor's bunion of right foot (Chronic) Bilateral foot wounds (Chronic) Tailor's bunion of left foot (Chronic) Peripheral vascular disease (Chronic) Toe fracture, right (Chronic) Non-pressure chronic ulcer of other part of right foot with fat layer exposed (Chronic) Non-pressure chronic ulcer of other part of left foot with fat layer exposed (Chronic) Type 1 diabetes mellitus (Chronic) Morbid obesity with BMI of 40.0-44.9, adult (Chronic) Noncompliance (Chronic) CHF (congestive heart failure) (Chronic) Abnormal stress test (Chronic) TIA (transient ischemic attack) (Chronic) Pulmonary hypertension (Chronic) Morbid obesity with BMI of 40.0-44.9, adult (Chronic) End stage renal disease on dialysis (Chronic) Chronic respiratory failure with hypoxia (Chronic) HTN (hypertension) (Chronic) Hyperlipidemia (Chronic) Diabetic neuropathy (Chronic) Anemia (Chronic) SELMA (obstructive sleep apnea) (Chronic) Medical History: Medical History (Last Reviewed 07/06/19 @ 09:26 by Eze Rivera MD) Chronic respiratory failure with hypoxia (Chronic) J96.11 HTN (hypertension) (Chronic) I10 Hyperlipidemia (Chronic) E78.5 Diabetic neuropathy (Chronic) E11.40 Anemia (Chronic) D64.9 SELMA (obstructive sleep apnea) (Chronic) G47.33 ESRD (end stage renal disease) on dialysis N18.6, Z99.2 cataract surgery, l eye Hypotension I95.9 Morbid obesity E66.01 Type 2 diabetes mellitus with other diabetic kidney complication E11.29 dx : age 16 last exacerbation : dka : never hypoglycemic episode : 2012 er visit : 2013 Allergies venom-honey bee [bee venom (honey bee)] Allergy (Verified 07/19/19 21:58) Swelling sulfamethoxazole [From Bactrim] Adverse Reaction (Verified 07/19/19 21:58) Upset Stomach trimethoprim [From Bactrim] Adverse Reaction (Verified 07/19/19 21:58) Upset Stomach Home Medications: Ambulatory Orders Medication Instructions Recorded Atorvastatin Calcium [Lipitor] 20 mg PO QHS 10/11/17 Vits A,C,E/Lutein/Minerals 1 ea PO DAILY 10/11/17 [Ocuvite with Lutein Tablet] Folic Acid/Vitamin B Comp W-C 1 cap PO DAILY 10/27/17 [Nephrocaps, Renaphro] albuterol sulfate 90 mcg/actuation 2 puff INHALATION Q4H PRN #18 g 02/26/18 aerosol inhaler Aspirin E.C. [Ecotrin] 81 mg PO DAILY 03/23/18 Cyclobenzaprine HCl 10 mg PO TID PRN PRN 03/23/18 Fluticasone 0.05% [Flonase Nasal 1 spray NASAL DAILY 03/23/18 [place]] Gabapentin [Neurontin] 300 mg PO BID 03/23/18 isosorbide mononitrate 30 mg 30 mg PO DAILY #30 tab 07/24/18 tablet,extended release 24 hr Acetaminophen [Tylenol Tablet] 650 mg PO Q6H PRN PRN tab 09/19/18 Guaifenesin Dm [Robitussin Dm] 10 ml PO Q6H PRN PRN #1 bottle 11/21/18 Furosemide [Lasix] 40 mg PO BID 03/12/19 Metoprolol Tartrate [Lopressor 50 mg PO BID 03/12/19 (beta emmanuel)] Omeprazole 40 mg PO DAILY 03/12/19 proMETHazine tablet [Phenergan 25 mg PO TID PRN 03/13/19 tablet] Sevelamer HCl [Renagel] 2,400 mg PO TID #0 03/20/19 Insulin Lispro [Humalog KwikPen] See Protocol SUBCUT ACHS 05/20/19 insuln.pen Insulin Aspart [Novolog Flexpen] 10 units SUBCUT TIDCM 07/05/19 Oxycodone HCl/Acetaminophen 1 ea PO Q6H PRN PRN 07/06/19 [Oxycodone-Acetaminophen 5-325] traZODone [Desyrel] 50 mg PO QHS 07/06/19 Amlodipine [Norvasc] 10 mg PO DAILY #30 tab 07/12/19 Surgical History: Surgical History (Last Reviewed 07/06/19 @ 09:26 by Eze Rivera MD) S/P tonsillectomy Z90.89 dialysis fistula Rt Arm Surgical History: tonsillectomy, - - Colectomy, right upper extremity aVF, right lower extremity angioplasty, right fifth ray resection. Psychiatric History: No pertinent psych hx Lives: Spouse/ Significant Other Smoking Status: Never smoker Tobacco Use: Non-smoker Alcohol: None Drugs: None - *Family History Maternal Family History: Family History (Last Reviewed 07/06/19 @ 09:27 by Eze Rivera MD) Mother Hypertension Heart disease Diabetes Father Hypertension Heart disease Brother Heart disease History Items: Diabetes, Heart Disease, Hypertension, Renal Disease Paternal Family History: Family History (Last Reviewed 07/06/19 @ 09:27 by Eze Rivera MD) Mother Hypertension Heart disease Diabetes Father Hypertension Heart disease Brother Heart disease History Items: Cancer - liver, Diabetes, Heart Disease Review of Systems Constitutional: Reports: Fever, Malaise Eyes: Denies: Blurred vision, Double vision HEENT: Denies: Head Aches, Sinus Congestion, Sinus Drainage Cardiovascular: Denies: Chest Pain, Palpitations Respiratory: Reports: Cough, Shortness of Breath Gastrointestinal: Denies: Abdominal Pain, Nausea, Vomiting Genitourinary: Denies: Dysuria Musculoskeletal: Denies: Joint Pain, Joint Tenderness Skin: Denies: Rash, Wounds Neurological: Denies: Numbness, Tingling, Focal weakness Psychiatric: Denies: Anxiety, Depression, Homicidal Ideations, Suicidal Ideations Hematologic/ Lymphatic: Reports: Anemia Patient Problems: Active and Suspected Problems (Last Reviewed 07/06/19 @ 09:26 by Eze Rivera MD) Sepsis (Acute) HCAP (healthcare-associated pneumonia) (Acute) Objective: The patient's most recent lab work, culture data and imaging studies have all been personally reviewed. Surface echocardiogram from March 2019 revealed normal LV size with an ejection fraction of 60% and stage II diastolic dysfunction. Blood and sputum cultures are pending. Respiratory viral panel is pending. - Physical Exam Vitals/I&O's: Vital Signs Temp Pulse Resp BP Pulse Ox 100.7 F H 81 20 H 170/60 H 97 07/20/19 01:27 07/20/19 02:59 07/20/19 01:27 07/20/19 01:39 07/20/19 01:27 Oxygen Flow Rate (L/min) 3 Oxygen Delivery Method Nasal Cannula Weight: 261 lb 7.492 oz Body Mass Index (BMI) 40.9 Finger Stick Blood Glucose 191 Intake and Output for Last 24 Hours 07/18/19 07/19/19 07/20/19 23:59 23:59 23:59 Intake Total 586.67 / 586.67 Balance 586.67 / 586.67 General: Alert, Cooperative, No apparent distress, - - Morbidly obese. is present at the bedside. HEENT: Atraumatic, PERRLA, Normocephalic Oral: No Gingival or Mucosal Lesions/ Ulcerations Neck: Supple, No Nodes, Trachea Midline Lungs: No rhonchi, No wheeze, No rales, Diminished Cardiovascular: Regular rate, Regular Rhythm, Normal S1, Normal S2, No murmurs Abdomen: Bowel Sounds Present, Soft, Non Tender, Obese Extremities: No clubbing, No cyanosis, Edema Skin: - - Chronic lower extremity wounds, present on admission Musculoskeletal: No Tenderness to Palpation of Joints or Extremities Lymphatic: No Cervical, Supraclavicular, or Inguinal Adenopathy Neurological: Cranial nerves II-XII grossly intact, Neuro grossly intact Psych/Mental Status: Normal Affect, Appropriate Labs (Last 48 Hours) 07/19/19 07/19/19 07/19/19 22:30 22:30 22:30 WBC 17.5 H RBC 3.47 L Hgb 9.7 L Hct 32.2 L MCV 92.8 MCH 28.0 MCHC 30.1 L RDW Std Deviation 58.4 H RDW Coeff of Roberto 17.2 H Plt Count 320 MPV 9.9 Immature Gran % (Auto) 1.200 H Neut % (Auto) 85.4 H Lymph % (Auto) 5.5 L Wake % (Auto) 5.2 Eos % (Auto) 2.1 Baso % (Auto) 0.6 Absolute Neuts (auto) 14.9 H Absolute Lymphs (auto) 0.96 Nucleated RBC % 0 Sodium 131 L Potassium 4.8 Chloride 93 L Carbon Dioxide 27.0 Anion Gap 11 BUN 37 H Creatinine 5.77 H Estim Creat Clear Calc 14.32 Est GFR (MDRD) Af Amer 13 L Est GFR (MDRD) Non-Af 11 L BUN/Creatinine Ratio 6.4 L Glucose 404 H Lactic Acid 1.9 Calcium 8.9 Phosphorus Magnesium Troponin I < 0.015 POC Glucose 07/19/19 07/20/19 22:30 01:41 WBC RBC Hgb Hct MCV MCH MCHC RDW Std Deviation RDW Coeff of Roberto Plt Count MPV Immature Gran % (Auto) Neut % (Auto) Lymph % (Auto) Wake % (Auto) Eos % (Auto) Baso % (Auto) Absolute Neuts (auto) Absolute Lymphs (auto) Nucleated RBC % Sodium Potassium Chloride Carbon Dioxide Anion Gap BUN Creatinine Estim Creat Clear Calc Est GFR (MDRD) Af Amer Est GFR (MDRD) Non-Af BUN/Creatinine Ratio Glucose Lactic Acid Calcium Phosphorus 3.7 Magnesium 2.1 Troponin I POC Glucose 413 H Microbiology 07/19/19 22:50 Mucosa - Nasopharyngeal Influenza Types A,B Direct FA ([facility]) - Final Clinical Impression(s) from Imaging Studies Chest X-Ray 07/19/19 22:15 IMPRESSION: Decrease in right perihilar opacity. Chest otherwise appears similar. at 2238 Reported and signed by: Ashli Vazquez MD Electronically Signed: Ashli Vazquez MD at 22:37 EST Tel , Service support , Current Medications Acetaminophen (Tylenol) 650 mg PO Q6H PRN PRN PRN Reason: Pain Score 1-3/Temp > 100.7 F Al Hydroxide/Mg Hydroxide (Mylanta Ii) 30 ml PO Q6H PRN PRN PRN Reason: Gastric Burning Albuterol Sulfate (Ventolin Aerosols) 2.5 mg INHALATION Q2H PRN PRN PRN Reason: Shortness of Breath/Wheezing Albuterol/Ipratropium (Duoneb) 3 ml INHALATION Q4HWA.RT RENE Amlodipine Besylate (Norvasc) 10 mg PO DAILY RENE Aspirin (Ecotrin) 81 mg PO DAILY RENE Atorvastatin Calcium (Lipitor) 20 mg PO QHS RENE Cyclobenzaprine HCl (Flexeril) 10 mg PO TID PRN PRN PRN Reason: SPASMS Fluticasone Propionate (Flonase Nasal [place]) 1 spray NASAL DAILY RENE Furosemide (Lasix) 40 mg PO BID RENE Gabapentin (Neurontin) 300 mg PO BID RENE Glucagon () 1 mg IM .X1 PRN PRN Reason: Hypoglycemia Guaifenesin (Robitussin) 20 ml PO Q4H PRN PRN PRN Reason: COUGH Hydralazine HCl (Apresoline Iv) 10 mg IV Q4H PRN PRN PRN Reason: SBP > 160 Last Admin: 07/20/19 01:39 Dose: 10 mg Documented by: Sodium Chloride () 1,000 mls @ 100 mls/hr IV .Q10H RENE Stop: 07/20/19 10:58 Last Infusion: 07/20/19 03:50 Dose: 100 mls/hr Documented by: Vancomycin IV Pharmacy to Dose (1 ea/ Sodium Chloride) 500 mls @ 250 mls/hr IV X1 PRN; Protocol PRN Reason: Rx to Dose Dextrose (Dextrose 10%-Water) 250 mls @ 999 mls/hr IV .Q16M PRN; Protocol PRN Reason: HYPOGLYCEMIA Piperacillin Sod/Tazobactam (Sod 3.375 gm/ Sodium Chloride) 50 mls @ 12.5 mls/hr IV Q12 RENE Sodium Chloride () 250 mls @ 15 mls/hr IV .[id number] PRN PRN Reason: Saline Flush Sodium Chloride () 250 mls @ 15 mls/hr IV .[id number] PRN PRN Reason: Additional IVPB Infusion Vancomycin HCl (Vancomycin) 1,000 mg in 200 mls @ 200 mls/hr IV X1 ONE Stop: 07/20/19 10:59 Insulin Human Lispro (Humalog Kwikpen (Bkc)) 0 unit SC ACHS [facility]; Protocol Isosorbide Mononitrate (Imdur) 30 mg PO DAILY [facility] Metoprolol Tartrate (Lopressor (Beta Emmanuel)) 50 mg PO BID [facility] Morphine Sulfate () 4 mg IV Q3H PRN PRN PRN Reason: Pain Score 6-10/10 Nitroglycerin (Nitrostat) 0.4 mg SUBLINGUAL Q5M PRN PRN Reason: CARDIAC/CHEST PAIN Ondansetron HCl (Zofran) 4 mg IV Q8H PRN PRN PRN Reason: NAUSEA/VOMITING Oxycodone HCl (Oxyir) 10 mg PO Q4H PRN PRN PRN Reason: Pain Score 4-5/10 Pantoprazole Sodium (Protonix) 40 mg PO DAILY [facility] Prochlorperazine Edisylate (Compazine Iv) 5 mg IV Q4H PRN PRN PRN Reason: Breakthrough nausea/vomiting Sevelamer Carbonate (Renvela) 2,400 mg PO TID [facility] Sodium Chloride () 10 - 40 ml IV UD PRN PRN Reason: SALINE FLUSH Throat Lozenges (Cepacol Sore Throat Lozenge) 1 lozenge MUCOUS MEM Q2H PRN PRN PRN Reason: Sore throat or cough Trazodone HCl (Desyrel) 50 mg PO QHS [facility] Vancomycin HCl () 1 lab MISCELL. DAILY@0600 [facility] Vancomycin HCl (Vancomycin Renal/Hd Dosing) 1 unit MISCELL. DAILY@0800 [facility] Assessment/Plan All Active Problems (Last Reviewed 07/06/19 @ 09:26 by Eze Rivera MD) Community acquired pneumonia (Acute) Sepsis (Acute) HCAP (healthcare-associated pneumonia) (Acute) RECOMMENDATIONS: 1. Continue empiric antimicrobials, pending infectious work-up. 2. Wean supplemental oxygen to maintain saturations at or above 90%. 3. Start BiPAP therapy with a pressure support of 18/12 centimeters of water with naps and nightly. 4. Nephrology consultation for hemodialysis needs. 5. Discontinue supplemental IV fluids and IV morphine order. IMPRESSIONS: 1. Shortness of breath/chronic hypoxemic respiratory failure The patient reports that he utilizes supplemental oxygen at his baseline, as needed. While the patient was just recently admitted for 7 days and treated with broad-spectrum antibiotics for community-acquired pneumonia, he now reports worsening shortness of breath. The patient's plain film chest x-ray was personally reviewed and actually shows improvement in the previously noted right midlung field lung opacity. Therefore, I do not feel that the patient has recurrent pneumonia. His chest x-ray findings represent radiographic evidence of a resolving pneumonia. Given the patient's recent hospitalization and [facility] home stay, he may have picked up a viral infection. Alternatively, he may have underlying tracheobronchitis. Regardless, the patient can be continued on empiric antimicrobials, pending infectious work-up. 2. End-stage renal disease on hemodialysis Consultation to be placed to nephrology to assist with hemodialysis needs. 3. Obstructive sleep apnea Previous sleep study from May 2017 revealed the need for nocturnal BiPAP therapy with a pressure support of 18/12 centimeters of water. This will be ordered while the patient is admitted to the hospital. 4. History of heart failure with preserved ejection fraction/peripheral vascular disease Continue baseline cardiac medications. 5. Hypertension/hyperlipidemia/obesity/diabetes mellitus/chronic lower extremity wounds/GERD/history of medical noncompliance and follow-up Complicates care, management, recovery and prognosis. Continue home medications as indicated. This note was generated with [employer] dictation software. It may contain incorrect words, spelling, and punctuation that were not noted in checking the note before signing. Code Visit Inpatient E&M: 08928 Init Hosp L3
[2019-07-20] MEDS: SEVELAMER CARBONATE 800 MG TABLET 2400 MG PO ×3 (06:29→22:22)
[2019-07-20] MEDS: Insulin Lispro 100 UNIT/ML INSULN.PEN SC ×4 (06:32→22:26)
[2019-07-20 06:50] LABS: Bedside Glucose 306 mg/dL (70-110)
[2019-07-20] MEDS: Ipratropium/Albuterol Sulfate 3 ML AMPUL.NEB INHALATION ×3 (07:26→23:39)
[2019-07-20] MEDS: Acetaminophen 325 MG Tablet 650 MG PO (07:30)
--- NOTE | 2019-07-20 08:03 | PN_ITS ---
Patient Problems: Active and Suspected Problems (Last Reviewed 07/06/19 @ 09:26 by Eze Rivera MD) Sepsis (Acute) HCAP (healthcare-associated pneumonia) (Acute) Reason for Visit: Follow-up pneumonia Subjective: Patient is a 48-year-old gentleman with multiple comorbidities including end- stage renal disease on hemodialysis discharged from the hospital almost a week ago to a [facility] facility was discharged 2 days prior to his presentation. He came to the emergency department with shortness of breath with associated fever. He was found to have elevated WBC count. Imaging studies obtained on admission demonstrated Decrease in right perihilar opacity. Admitted to regular nursing floor for subsequent management Objective: GENERAL: cooperative HEENT: Atraumatic; EYES; Anicteric, Normal Conjunctiva NECK; supple, normal thyroid, RESPIRATORY: Diminished to auscultation CARDIOVASCULAR: Regular S1 S2, GI: soft, normoactive bowel sounds, : No Renal angle tenderness; EXTREMITIES: No edema, no clubbing, MUSCULOSKELETAL: no muscle waisting NEURO: Awake; no lateralizing signs. SKIN: No Rash PSYCH; Flat affect Vitals/I&O's: Vital Signs Temp Pulse Resp BP Pulse Ox 98.6 F 88 21 H 121/62 H 95 07/20/19 06:37 07/20/19 07:56 07/20/19 07:56 07/20/19 06:37 07/20/19 07:55 Oxygen Flow Rate (L/min) 2 Oxygen Delivery Method Nasal Cannula Weight: 118.6 kg Body Mass Index (BMI) 40.9 Finger Stick Blood Glucose 191 Intake and Output for Last 24 Hours 07/18/19 07/19/19 07/20/19 23:59 23:59 23:59 Intake Total 586.67 / 586.67 Balance 586.67 / 586.67 Microbiology Past 72 Hours 07/19/19 22:50 Mucosa - Nasopharyngeal Influenza Types A,B Direct FA (JAEL) - Final Laboratory Results 07/19/19 22:30: WBC 17.5 H, RBC 3.47 L, Hgb 9.7 L, Hct 32.2 L, MCV 92.8, MCH 28.0, MCHC 30.1 L, RDW Std Deviation 58.4 H, RDW Coeff of Roberto 17.2 H, Plt Count 320, MPV 9.9, Immature Gran % (Auto) 1.200 H, Neut % (Auto) 85.4 H, Lymph % (Auto) 5.5 L, [place] % (Auto) 5.2, Eos % (Auto) 2.1, Baso % (Auto) 0.6, Absolute Neuts (auto) 14.9 H, Absolute Lymphs (auto) 0.96, Nucleated RBC % 0 07/19/19 22:30: Sodium 131 L, Potassium 4.8, Chloride 93 L, Carbon Dioxide 27.0, Anion Gap 11, BUN 37 H, Creatinine 5.77 H, Estim Creat Clear Calc 14.32, Est GFR (MDRD) Af Amer 13 L, Est GFR (MDRD) Non-Af 11 L, BUN/Creatinine Ratio 6.4 L, Glucose 404 H, Calcium 8.9, Troponin I < 0.015 07/19/19 22:30: Lactic Acid 1.9 07/19/19 22:30: Phosphorus 3.7, Magnesium 2.1 07/20/19 01:41: POC Glucose 413 H 07/20/19 06:32: POC Glucose 306 H Current Medications Acetaminophen (Tylenol) 650 mg PO Q6H PRN PRN PRN Reason: Pain Score 1-3/Temp > 100.7 F Last Admin: 07/20/19 07:30 Dose: 650 mg Documented by: Al Hydroxide/Mg Hydroxide (Mylanta Ii) 30 ml PO Q6H PRN PRN PRN Reason: Gastric Burning Albuterol Sulfate (Ventolin Aerosols) 2.5 mg INHALATION Q2H PRN PRN PRN Reason: Shortness of Breath/Wheezing Albuterol/Ipratropium (Duoneb) 3 ml INHALATION Q4HWA.RT RENE Last Admin: 07/20/19 07:26 Dose: 3 ml Documented by: Amlodipine Besylate (Norvasc) 10 mg PO DAILY [facility] Aspirin (Ecotrin) 81 mg PO DAILY RENE Atorvastatin Calcium (Lipitor) 20 mg PO QHS RENE Cyclobenzaprine HCl (Flexeril) 10 mg PO TID PRN PRN PRN Reason: SPASMS Fluticasone Propionate (Flonase Nasal [place]) 1 spray NASAL DAILY [facility] Furosemide (Lasix) 40 mg PO BID RENE Gabapentin (Neurontin) 300 mg PO BID RENE Glucagon () 1 mg IM .X1 PRN PRN Reason: Hypoglycemia Guaifenesin (Robitussin) 20 ml PO Q4H PRN PRN PRN Reason: COUGH Hydralazine HCl (Apresoline Iv) 10 mg IV Q4H PRN PRN PRN Reason: SBP > 160 Last Admin: 07/20/19 01:39 Dose: 10 mg Documented by: Sodium Chloride () 1,000 mls @ 100 mls/hr IV .Q10H [facility] Stop: 07/20/19 10:58 Last Infusion: 07/20/19 03:50 Dose: 100 mls/hr Documented by: Vancomycin IV Pharmacy to Dose (1 ea/ Sodium Chloride) 500 mls @ 250 mls/hr IV X1 PRN; Protocol PRN Reason: Rx to Dose Dextrose (Dextrose 10%-Water) 250 mls @ 999 mls/hr IV .Q16M PRN; Protocol PRN Reason: HYPOGLYCEMIA Piperacillin Sod/Tazobactam (Sod 3.375 gm/ Sodium Chloride) 50 mls @ 12.5 mls/hr IV Q12 [facility] Sodium Chloride () 250 mls @ 15 mls/hr IV .[id number] PRN PRN Reason: Saline Flush Sodium Chloride () 250 mls @ 15 mls/hr IV .[id number] PRN PRN Reason: Additional IVPB Infusion Vancomycin HCl (Vancomycin) 1,000 mg in 200 mls @ 200 mls/hr IV X1 ONE Stop: 07/20/19 10:59 Insulin Human Lispro (Humalog Kwikpen (Bkc)) 0 unit SC ACHS [facility]; Protocol Last Admin: 07/20/19 06:32 Dose: 6 u Documented by: Isosorbide Mononitrate (Imdur) 30 mg PO DAILY [facility] Metoprolol Tartrate (Lopressor (Beta Emmanuel)) 50 mg PO BID [facility] Morphine Sulfate () 4 mg IV Q3H PRN PRN PRN Reason: Pain Score 6-10/10 Nitroglycerin (Nitrostat) 0.4 mg SUBLINGUAL Q5M PRN PRN Reason: CARDIAC/CHEST PAIN Ondansetron HCl (Zofran) 4 mg IV Q8H PRN PRN PRN Reason: NAUSEA/VOMITING Oxycodone HCl (Oxyir) 10 mg PO Q4H PRN PRN PRN Reason: Pain Score 4-5/10 Pantoprazole Sodium (Protonix) 40 mg PO DAILY [facility] Prochlorperazine Edisylate (Compazine Iv) 5 mg IV Q4H PRN PRN PRN Reason: Breakthrough nausea/vomiting Sevelamer Carbonate (Renvela) 2,400 mg PO TID [facility] Last Admin: 07/20/19 06:29 Dose: 2,400 mg Documented by: Sodium Chloride () 10 - 40 ml IV UD PRN PRN Reason: SALINE FLUSH Throat Lozenges (Cepacol Sore Throat Lozenge) 1 lozenge MUCOUS MEM Q2H PRN PRN PRN Reason: Sore throat or cough Trazodone HCl (Desyrel) 50 mg PO QHS [facility] Vancomycin HCl () 1 lab MISCELL. DAILY@0600 [facility] Vancomycin HCl (Vancomycin Renal/Hd Dosing) 1 unit MISCELL. DAILY@0800 [facility] STROKE Vital Signs/Narrative: Vital Signs Temp Pulse Resp BP Pulse Ox 07/20/19 07:56 88 21 H 07/20/19 07:55 95 07/20/19 06:37 98.6 F 75 18 121/62 H 95 Medical Necessity - Tobacco Use Smoking Status: Never smoker Tobacco Use: Non-smoker Assessment/Plan All Active Problems (Last Reviewed 07/06/19 @ 09:26 by Eze Rivera MD) Community acquired pneumonia (Acute) Sepsis (Acute) HCAP (healthcare-associated pneumonia) (Acute) Patient is a 48-year-old gentleman with multiple comorbidities including end- stage renal disease on hemodialysis discharged from the hospital almost a week ago to [facility] facility was discharged 2 days prior to his presentation. He came to the emergency department with shortness of breath with associated fever. He was found to have elevated WBC count. Imaging studies obtained on admission demonstrated Decrease in right perihilar opacity. Admitted to regular nursing floor for subsequent management 1. Pneumonia with suspected [id number] organisms line ?admitted to regular nursing floor patient was started on vancomycin as well as Zosyn. Plan will be to obtain nasal MRSA screen if negative will discontinue vancomycin. Cultures were obtained and admission will follow up on the result. Acute influenza A and B assay obtained on admission came back negative. 2. Acute on chronic hypoxic respiratory failure ?Secondary to above patient was managed with supplemental oxygen and consultation placed to pulmonary medicine 3. End-stage renal disease ?Patient is on hemodialysis on Tuesdays and Saturdays consult placed with Dr. Gregorio for dialysis orders 4. Obstructive sleep apnea ?Patient is on BiPAP at night plan is to continue 5. Chronic heart failure with preserved ejection fraction ?Echo obtained on 03/16/2019 demonstrated EF of 60%. Patient currently compensated 6. Essential hypertension ?Blood pressure controlled continue with home medications 7. Dyslipidemia ?Patient is on atorvastatin did continue 8. Morbid obesity with BMI of 41.0 ?Weight loss advised 9. Diabetes mellitus type 2 ?With complications including diabetic nephropathy (end-stage renal disease) is well as hypoglycemia. Did continue with home insulin regimen in addition to Accu-Cheks before meals and at bedtime with sliding scale coverage 10. Anemia secondary to anemia of ESRD ?Monitoring H&H with plans to transfuse if hemoglobin falls below 7 or patient becomes symptomatic 11. GERD ?Patient on PPI 12. DVT prophylaxis ?SC heparin Active Medications Acetaminophen (Tylenol) 650 mg PO Q6H PRN PRN PRN Reason: Pain Score 1-3/Temp > 100.7 F Last Admin: 07/20/19 07:30 Dose: 650 mg Documented by: Al Hydroxide/Mg Hydroxide (Mylanta Ii) 30 ml PO Q6H PRN PRN PRN Reason: Gastric Burning Albuterol Sulfate (Ventolin Aerosols) 2.5 mg INHALATION Q2H PRN PRN PRN Reason: Shortness of Breath/Wheezing Albuterol/Ipratropium (Duoneb) 3 ml INHALATION Q4HWA.RT [facility] Last Admin: 07/20/19 07:26 Dose: 3 ml Documented by: Amlodipine Besylate (Norvasc) 10 mg PO DAILY [facility] Last Admin: 07/20/19 10:23 Dose: 10 mg Documented by: Aspirin (Ecotrin) 81 mg PO DAILY [facility] Last Admin: 07/20/19 10:23 Dose: 81 mg Documented by: Atorvastatin Calcium (Lipitor) 20 mg PO QHS [facility] Cyclobenzaprine HCl (Flexeril) 10 mg PO TID PRN PRN PRN Reason: SPASMS Fluticasone Propionate (Flonase Nasal [place]) 1 spray NASAL DAILY [facility] Furosemide (Lasix) 40 mg PO BID [facility] Last Admin: 07/20/19 10:23 Dose: 40 mg Documented by: Gabapentin (Neurontin) 300 mg PO BID [facility] Last Admin: 07/20/19 10:23 Dose: 300 mg Documented by: Glucagon () 1 mg IM .X1 PRN PRN Reason: Hypoglycemia Guaifenesin (Robitussin) 20 ml PO Q4H PRN PRN PRN Reason: COUGH Hydralazine HCl (Apresoline Iv) 10 mg IV Q4H PRN PRN PRN Reason: SBP > 160 Last Admin: 07/20/19 01:39 Dose: 10 mg Documented by: Sodium Chloride () 1,000 mls @ 100 mls/hr IV .Q10H [facility] Stop: 07/20/19 10:58 Last Infusion: 07/20/19 10:36 Dose: 0 mls/hr Documented by: Vancomycin IV Pharmacy to Dose (1 ea/ Sodium Chloride) 500 mls @ 250 mls/hr IV X1 PRN; Protocol PRN Reason: Rx to Dose Dextrose (Dextrose 10%-Water) 250 mls @ 999 mls/hr IV .Q16M PRN; Protocol PRN Reason: HYPOGLYCEMIA Piperacillin Sod/Tazobactam (Sod 3.375 gm/ Sodium Chloride) 50 mls @ 12.5 mls/hr IV Q12 RENE Sodium Chloride () 250 mls @ 15 mls/hr IV .[id number] PRN PRN Reason: Saline Flush Sodium Chloride () 250 mls @ 15 mls/hr IV .[id number] PRN PRN Reason: Additional IVPB Infusion Vancomycin HCl (Vancomycin) 1,000 mg in 200 mls @ 200 mls/hr IV X1 ONE Stop: 07/20/19 10:59 Last Admin: 07/20/19 10:23 Dose: 200 mls/hr Documented by: Insulin Human Lispro (Humalog Kwikpen (Bkc)) 0 unit SC ACHS [facility]; Protocol Last Admin: 07/20/19 06:32 Dose: 6 u Documented by: Isosorbide Mononitrate (Imdur) 30 mg PO DAILY [facility] Last Admin: 07/20/19 10:23 Dose: 30 mg Documented by: Metoprolol Tartrate (Lopressor (Beta Emmanuel)) 50 mg PO BID [facility] Last Admin: 07/20/19 10:23 Dose: 50 mg Documented by: Morphine Sulfate () 4 mg IV Q3H PRN PRN PRN Reason: Pain Score 6-10/10 Nitroglycerin (Nitrostat) 0.4 mg SUBLINGUAL Q5M PRN PRN Reason: CARDIAC/CHEST PAIN Ondansetron HCl (Zofran) 4 mg IV Q8H PRN PRN PRN Reason: NAUSEA/VOMITING Last Admin: 07/20/19 08:07 Dose: 4 mg Documented by: Oxycodone HCl (Oxyir) 10 mg PO Q4H PRN PRN PRN Reason: Pain Score 4-5/10 Last Admin: 07/20/19 08:26 Dose: 10 mg Documented by: Pantoprazole Sodium (Protonix) 40 mg PO DAILY [facility] Last Admin: 07/20/19 10:23 Dose: 40 mg Documented by: Prochlorperazine Edisylate (Compazine Iv) 5 mg IV Q4H PRN PRN PRN Reason: Breakthrough nausea/vomiting Sevelamer Carbonate (Renvela) 2,400 mg PO TID [facility] Last Admin: 07/20/19 06:29 Dose: 2,400 mg Documented by: Sodium Chloride () 10 - 40 ml IV UD PRN PRN Reason: SALINE FLUSH Last Admin: 07/20/19 08:08 Dose: 10 ml Documented by: Throat Lozenges (Cepacol Sore Throat Lozenge) 1 lozenge MUCOUS MEM Q2H PRN PRN PRN Reason: Sore throat or cough Trazodone HCl (Desyrel) 50 mg PO QHS [facility] Vancomycin HCl () 1 lab MISCELL. DAILY@0600 [facility] Vancomycin HCl (Vancomycin Renal/Hd Dosing) 1 unit MISCELL. DAILY@0800 [facility] Last Admin: 07/20/19 10:06 Dose: Not Given Documented by: Code Visit Inpatient E&M: [id number] [facility] L3
[2019-07-20] MEDS: Ondansetron 4 MG/2 ML Vial IV (08:07)
[2019-07-20] MEDS: 0.9% Saline Lock 10 ML Syringe IV ×2 (08:08→22:21)
--- NOTE | 2019-07-20 08:11 | NURSING ---
Ordered breakfast despite c/o nausea.
[2019-07-20] MEDS: oxyCODONE 5 MG Tablet 10 MG PO ×2 (08:26→18:38)
[2019-07-20 08:31] LABS: Absolute Lymphocyte Count 0.97 X10^3/uL (0.83-4.51); Absolute Neutrophil Count 10.7 X10^3/uL (2.0-7.7); Basophil# 0.08 X10^3/uL; Basophil% 0.6 % (0-1); Eosinophil# 0.36 X10^3/uL; Eosinophils% 2.8 % (0-5); Hemoglobin 8.9 g/dL (13.0-16.5); Lymphocyte # 0.97 X10^3/ul (4.0); Lymphocyte % 7.4 % (19-41); Mean Corp Hgb Conc 30.7 g/dL (32-36); Mean Corpuscular Volume 94.5 fL (80-94); Mean Platelet Vol. 9.3 fl (6.2-12.0); Monocyte# 0.78 X10^3/uL; NRBC Flagged by Analyzer 0 % (0-5); Neutrophil # 10.72 X10^3/uL (2.7-7.7); Neutrophil % 82.2 % (47-70); Platelet Count 239 K/mm3 (150-450); RBC Distribution Width SD 58.4 fl (35.1-43.9); Red Blood Count 3.07 M/mm3 (4.6-6.2)
[2019-07-20 08:44] LABS: Anion Gap 7 (5-15); BUN 42 mg/dL (7-18); BUN/Creat Ratio 6.8 RATIO (10-20); Calcium,Total 8.9 mg/dL (8.5-10.1); Chloride 98 mmol/L (98-107); Creatinine, Serum 6.19 mg/dL (0.70-1.30); EST Glomerular Filtration Rate 10 mL/min (>60); Est Glom Filt Rate - Afr Amer 12 mL/min (>60); Estimated Creatinine Clearance 13.35 ml/min; Glucose 274 mg/dL (74-106); Potassium 4.5 mmol/L (3.5-5.1); Sodium Level 132 mmol/L (136-145)
[2019-07-20 09:04] LABS: BNP,B-Type NATRIURETIC PEPTIDE 1522.3 pg/mL (0-100)
[2019-07-20] MEDS: Vancomycin IV 1,000 MG/200 ML BAG 200 MG IV (10:23)
[2019-07-20] MEDS: amLODIPine 10 MG Tablet PO (10:23)
[2019-07-20] MEDS: Metoprolol Tartrate 50 MG Tablet PO ×2 (10:23→22:21)
[2019-07-20] MEDS: Gabapentin 300 MG Capsule PO ×2 (10:23→22:21)
[2019-07-20] MEDS: Aspirin E.C. 81 MG Tablet PO (10:23)
[2019-07-20] MEDS: Pantoprazole Sodium 40 MG Tablet PO (10:23)
[2019-07-20] MEDS: Furosemide 40 MG Tablet PO ×2 (10:23→22:21)
[2019-07-20] MEDS: Isosorbide Mononitrate 30 MG Tablet PO (10:23)
--- NOTE | 2019-07-20 10:45 | CM.UR ---
Addendum entered by Cristina Melendez 07/20/19 15:18: Attempted to meet with patient again around 2:50pm. He was getting dialysis and was very drowsy. He kept falling a sleep and was unable to have a meaningful conversation. Francheska Melendez RN, CCM. Original Note: Attempted to meet with patient, at this time however he was sleeping soundly. Will attempt again later today. Francheska Melendez RN, CCM.
[2019-07-20] MEDS: Fluticasone 0.05% 1 SPRAY NASAL.SRY NASAL (11:48)
--- NOTE | 2019-07-20 12:03 | NURSING ---
Dialysis called, they are in the hospital. will be up around [address] Gregorio.
[2019-07-20 12:56] LABS: Bedside Glucose 289 mg/dL (70-110)
[2019-07-20 18:06] LABS: Bedside Glucose 179 mg/dL (70-110)
[2019-07-20] MEDS: Heparin 10,000 UNITS/10 ML Vial 8000 UNITS IV (18:39)
[2019-07-20 19:37] LABS: Bacteria 0 SEEN /hpf (None Seen); Mucous, Urine 0 SEEN /hpf (<or=2+)
[2019-07-20 19:46] LABS: Color, Urine Yellow (Yellow); Glucose, Dipstick 1000 mg/dl (Normal); Ketone-Dipstick Negative (Negative); Leukocyte Esterase-Dipstick Negative /ul (Negative); Nitrite-Dipstick Negative (Negative); Occult Blood-Urine 10 /ul (Negative); Protein-Dipstick 500 mg/dl (Negative); Urine Bilirubin Dipstick Negative (Negative); Urine Clarity Clear (Clear); Urine Urobilinogen Normal (Normal)
[2019-07-20 20:11] LABS: Red Blood Cells-Urine 0-5 SEEN /hpf (0-5); Squamous Epithelial Cells - UA 0-5 SEEN /hpf (0-5); White Blood Cells 0 SEEN /hpf (0-5)
--- NOTE | 2019-07-20 20:35 | DIALYSIS ---
HD x4 hours completed at 1815, tolerated well, UF 5100mL, CritLine ended profile A, Heparin bolus given at start of tx, accessed via NERI AVF using 15G needles, worked well, needles pulled, stasis achieved without issue
[2019-07-20 21:39] LABS: M R Staph aureus DNA By PCR POSITIVE (Negative); Probe Check PASS
[2019-07-20] MEDS: Atorvastatin Calcium 20 MG Tablet PO (22:21)
[2019-07-20] MEDS: traZODone 50 MG Tablet PO (22:23)
[2019-07-20] MEDS: BENZOCAINE/MENTHOL 1 LOZENGE MUCOUS MEM (22:36)
[2019-07-20] MEDS: guaiFENesin 10 ML UDC (200MG/10ML) 20 ML PO (22:36)
[2019-07-20 22:45] LABS: Bedside Glucose 253 mg/dL (70-110)
[2019-07-21] VITALS (18 sets, daily range): BP systolic 140–162; BP diastolic 68–75; PULSE 61–91; RESP 12–20; TEMP 36.2–36.8; O2SAT 95–99
[2019-07-21] MEDS: SEVELAMER CARBONATE 800 MG TABLET 2400 MG PO ×3 (06:42→17:46)
[2019-07-21] MEDS: Insulin Lispro 100 UNIT/ML INSULN.PEN SC ×4 (06:48→22:08)
[2019-07-21 06:56] LABS: Bedside Glucose 177 mg/dL (70-110)
[2019-07-21] MEDS: Ipratropium/Albuterol Sulfate 3 ML AMPUL.NEB INHALATION ×3 (07:11→15:43)
--- NOTE | 2019-07-21 07:58 | PN_ITS ---
Patient Problems: Active and Suspected Problems (Last Reviewed 07/06/19 @ 09:26 by Eze Rivera MD) Sepsis (Acute) HCAP (healthcare-associated pneumonia) (Acute) Reason for Visit: Follow-up pneumonia. Subjective: Patient nasal MRSA screen came back positive patient was subsequently maintained on vancomycin. Objective: GENERAL: cooperative HEENT: Atraumatic; EYES; Anicteric, Normal Conjunctiva NECK; supple, normal thyroid, RESPIRATORY: Diminished to auscultation CARDIOVASCULAR: Regular S1 S2, GI: soft, normoactive bowel sounds, : No Renal angle tenderness; EXTREMITIES: No edema, no clubbing, MUSCULOSKELETAL: no muscle waisting NEURO: Awake; no lateralizing signs. SKIN: No Rash PSYCH; Flat affect Vitals/I&O's: Vital Signs Temp Pulse Resp BP Pulse Ox 98.3 F 78 18 146/75 H 95 07/21/19 02:01 07/21/19 07:37 07/21/19 07:37 07/21/19 02:01 07/21/19 07:37 Oxygen Flow Rate (L/min) 3 Oxygen Delivery Method Bi-pap Weight: 117.6 kg Body Mass Index (BMI) 40.9 Finger Stick Blood Glucose 191 Intake and Output for Last 24 Hours 07/19/19 07/20/19 07/21/19 23:59 23:59 23:59 Intake Total 2133.34 / 2133.34 50 / 50 Output Total 98721 / 45628 0 / 0 Balance -8066.66 / -8066.66 50 / 50 Microbiology Past 72 Hours 07/20/19 19:30 Urine, Clean Catch Legionella Antigen - Final 07/20/19 19:30 Urine, Clean Catch Streptococcus pneumoniae Antigen (M - Final 07/19/19 22:50 Mucosa - Nasopharyngeal Respiratory Panel (PCR) - Final 07/19/19 22:50 Mucosa - Nasopharyngeal Influenza Types A,B Direct FA (JAEL) - Final Laboratory Results 07/20/19 08:22: WBC 13.0 H, RBC 3.07 L, Hgb 8.9 L, Hct 29.0 L, MCV 94.5 H, MCH 29.0, MCHC 30.7 L, RDW Std Deviation 58.4 H, RDW Coeff of Roberto 17.0 H, Plt Count 239, MPV 9.3, Immature Gran % (Auto) 1.000 H, Neut % (Auto) 82.2 H, Lymph % (Auto) 7.4 L, Wolfe % (Auto) 6.0, Eos % (Auto) 2.8, Baso % (Auto) 0.6, Absolute Neuts (auto) 10.7 H, Absolute Lymphs (auto) 0.97, Nucleated RBC % 0 07/20/19 08:22: Sodium 132 L, Potassium 4.5, Chloride 98, Carbon Dioxide 27.0, Anion Gap 7, BUN 42 H, Creatinine 6.19 H, Estim Creat Clear Calc 13.35, Est GFR (MDRD) Af Amer 12 L, Est GFR (MDRD) Non-Af 10 L, BUN/Creatinine Ratio 6.8 L, Glucose 274 H, Calcium 8.9 07/20/19 08:22: B-Natriuretic Peptide 1522.3 H 07/20/19 11:50: POC Glucose 289 H 07/20/19 17:51: POC Glucose 179 H 07/20/19 19:30: Urine Color Yellow, Urine Clarity Clear, Urine pH 7.0, Ur Specific [place] 1.010, Urine Protein 500 H, Urine Glucose (UA) 1000 H, Urine Ketones Negative, Urine Occult Blood 10 H, Urine Nitrite Negative, Urine Bilirubin Negative, Urine Urobilinogen Normal, Ur Leukocyte Esterase Negative, Urine RBC 0-5 SEEN, Urine WBC 0 SEEN, Ur Squamous Epith Cells 0-5 SEEN, Urine Bacteria 0 SEEN, Urine Mucus 0 SEEN 07/20/19 19:32: MRSA (PCR) POSITIVE H 07/20/19 22:25: POC Glucose 253 H 07/21/19 06:47: POC Glucose 177 H Current Medications Acetaminophen (Tylenol) 650 mg PO Q6H PRN PRN PRN Reason: Pain Score 1-3/Temp > 100.7 F Last Admin: 07/20/19 07:30 Dose: 650 mg Documented by: Al Hydroxide/Mg Hydroxide (Mylanta Ii) 30 ml PO Q6H PRN PRN PRN Reason: Gastric Burning Albuterol Sulfate (Ventolin Aerosols) 2.5 mg INHALATION Q2H PRN PRN PRN Reason: Shortness of Breath/Wheezing Albuterol/Ipratropium (Duoneb) 3 ml INHALATION Q4HWA.RT RENE Last Admin: 07/21/19 07:11 Dose: 3 ml Documented by: Amlodipine Besylate (Norvasc) 10 mg PO DAILY [facility] Last Admin: 07/20/19 10:23 Dose: 10 mg Documented by: Aspirin (Ecotrin) 81 mg PO DAILY [facility] Last Admin: 07/20/19 10:23 Dose: 81 mg Documented by: Atorvastatin Calcium (Lipitor) 20 mg PO QHS [facility] Last Admin: 07/20/19 22:21 Dose: 20 mg Documented by: Cyclobenzaprine HCl (Flexeril) 10 mg PO TID PRN PRN PRN Reason: SPASMS Fluticasone Propionate (Flonase Nasal [place]) 1 spray NASAL DAILY [facility] Last Admin: 07/20/19 11:48 Dose: 1 spray Documented by: Furosemide (Lasix) 40 mg PO BID [facility] Last Admin: 07/20/19 22:21 Dose: 40 mg Documented by: Gabapentin (Neurontin) 300 mg PO BID [facility] Last Admin: 07/20/19 22:21 Dose: 300 mg Documented by: Glucagon () 1 mg IM .X1 PRN PRN Reason: Hypoglycemia Guaifenesin (Robitussin) 20 ml PO Q4H PRN PRN PRN Reason: COUGH Last Admin: 07/20/19 22:36 Dose: 20 ml Documented by: Hydralazine HCl (Apresoline Iv) 10 mg IV Q4H PRN PRN PRN Reason: SBP > 160 Last Admin: 07/20/19 01:39 Dose: 10 mg Documented by: Vancomycin IV Pharmacy to Dose (1 ea/ Sodium Chloride) 500 mls @ 250 mls/hr IV X1 PRN; Protocol PRN Reason: Rx to Dose Dextrose (Dextrose 10%-Water) 250 mls @ 999 mls/hr IV .Q16M PRN; Protocol PRN Reason: HYPOGLYCEMIA Piperacillin Sod/Tazobactam (Sod 3.375 gm/ Sodium Chloride) 50 mls @ 12.5 mls/hr IV Q12 [facility] Last Infusion: 07/21/19 02:21 Dose: Infused Documented by: Sodium Chloride () 250 mls @ 15 mls/hr IV .[id number] PRN PRN Reason: Saline Flush Sodium Chloride () 250 mls @ 15 mls/hr IV .[id number] PRN PRN Reason: Additional IVPB Infusion Insulin Human Lispro (Humalog Kwikpen (Bkc)) 0 unit SC ACHS [facility]; Protocol Last Admin: 07/21/19 06:48 Dose: 2 u Documented by: Isosorbide Mononitrate (Imdur) 30 mg PO DAILY [facility] Last Admin: 07/20/19 10:23 Dose: 30 mg Documented by: Metoprolol Tartrate (Lopressor (Beta Emmanuel)) 50 mg PO BID [facility] Last Admin: 07/20/19 22:21 Dose: 50 mg Documented by: Morphine Sulfate () 4 mg IV Q3H PRN PRN PRN Reason: Pain Score 6-10/10 Nitroglycerin (Nitrostat) 0.4 mg SUBLINGUAL Q5M PRN PRN Reason: CARDIAC/CHEST PAIN Ondansetron HCl (Zofran) 4 mg IV Q8H PRN PRN PRN Reason: NAUSEA/VOMITING Last Admin: 07/20/19 08:07 Dose: 4 mg Documented by: Oxycodone HCl (Oxyir) 10 mg PO Q4H PRN PRN PRN Reason: Pain Score 4-5/10 Last Admin: 07/20/19 18:38 Dose: 10 mg Documented by: Pantoprazole Sodium (Protonix) 40 mg PO DAILY [facility] Last Admin: 07/20/19 10:23 Dose: 40 mg Documented by: Prochlorperazine Edisylate (Compazine Iv) 5 mg IV Q4H PRN PRN PRN Reason: Breakthrough nausea/vomiting Sevelamer Carbonate (Renvela) 2,400 mg PO TID [facility] Last Admin: 07/21/19 06:42 Dose: 2,400 mg Documented by: Sodium Chloride () 10 - 40 ml IV UD PRN PRN Reason: SALINE FLUSH Last Admin: 07/20/19 22:21 Dose: 10 ml Documented by: Throat Lozenges (Cepacol Sore Throat Lozenge) 1 lozenge MUCOUS MEM Q2H PRN PRN PRN Reason: Sore throat or cough Last Admin: 07/20/19 22:36 Dose: 1 lozenge Documented by: Trazodone HCl (Desyrel) 50 mg PO QHS [facility] Last Admin: 07/20/19 22:23 Dose: 50 mg Documented by: Vancomycin HCl () 1 lab MISCELL. DAILY@0600 [facility] Last Admin: 07/21/19 06:51 Dose: Not Given Documented by: Vancomycin HCl (Vancomycin Renal/Hd Dosing) 1 unit MISCELL. DAILY@0800 [facility] Last Admin: 07/20/19 10:06 Dose: Not Given Documented by: STROKE Vital Signs/Narrative: Vital Signs Pulse Resp Pulse Ox 07/21/19 07:37 78 18 95 07/21/19 07:10 76 20 H 07/21/19 05:45 74 15 95 Medical Necessity - Tobacco Use Smoking Status: Never smoker Tobacco Use: Non-smoker Assessment/Plan All Active Problems (Last Reviewed 07/06/19 @ 09:26 by Eze Rivera MD) Community acquired pneumonia (Acute) Sepsis (Acute) HCAP (healthcare-associated pneumonia) (Acute) Patient is a 48-year-old gentleman with multiple comorbidities including end- stage renal disease on hemodialysis discharged from the hospital almost a week ago to a [facility] facility was discharged 2 days prior to his presentation. He came to the emergency department with shortness of breath with associated fever. He was found to have elevated WBC count. Imaging studies obtained on admission demonstrated Decrease in right perihilar opacity. Admitted to regular nursing floor for subsequent management 1. Pneumonia with suspected [id number] organisms line ?admitted to regular nursing floor patient was started on vancomycin as well as Zosyn. Plan will be to obtain nasal MRSA screen if negative will discontinue vancomycin. Cultures were obtained and admission will follow up on the result. Acute influenza A and B assay obtained on admission came back negative. 07/21/2019;Patient nasal MRSA screen came back positive patient was subsequently maintained on vancomycin. 2. Acute on chronic hypoxic respiratory failure ?Secondary to above patient was managed with supplemental oxygen and consultation placed to pulmonary medicine 3. End-stage renal disease ?Patient is on hemodialysis on Tuesdays and Saturdays consult placed with Dr. Gregorio for dialysis orders 4. Obstructive sleep apnea ?Patient is on BiPAP at night plan is to continue 5. Chronic heart failure with preserved ejection fraction ?Echo obtained on 03/16/2019 demonstrated EF of 60%. Patient currently compensated 6. Essential hypertension ?Blood pressure controlled continue with home medications 7. Dyslipidemia ?Patient is on atorvastatin did continue 8. Morbid obesity with BMI of 41.0 ?Weight loss advised 9. Diabetes mellitus type 2 ?With complications including diabetic nephropathy (end-stage renal disease) is well as hypoglycemia. Did continue with home insulin regimen in addition to Accu-Cheks before meals and at bedtime with sliding scale coverage 10. Anemia secondary to anemia of ESRD ?Monitoring H&H with plans to transfuse if hemoglobin falls below 7 or patient becomes symptomatic 11. GERD ?Patient on PPI 12. DVT prophylaxis ?SC heparin Active Medications Acetaminophen (Tylenol) 650 mg PO Q6H PRN PRN PRN Reason: Pain Score 1-3/Temp > 100.7 F Last Admin: 07/20/19 07:30 Dose: 650 mg Documented by: Al Hydroxide/Mg Hydroxide (Mylanta Ii) 30 ml PO Q6H PRN PRN PRN Reason: Gastric Burning Albuterol Sulfate (Ventolin Aerosols) 2.5 mg INHALATION Q2H PRN PRN PRN Reason: Shortness of Breath/Wheezing Albuterol/Ipratropium (Duoneb) 3 ml INHALATION Q4HWA.RT [facility] Last Admin: 07/20/19 07:26 Dose: 3 ml Documented by: Amlodipine Besylate (Norvasc) 10 mg PO DAILY [facility] Last Admin: 07/20/19 10:23 Dose: 10 mg Documented by: Aspirin (Ecotrin) 81 mg PO DAILY [facility] Last Admin: 07/20/19 10:23 Dose: 81 mg Documented by: Atorvastatin Calcium (Lipitor) 20 mg PO QHS [facility] Cyclobenzaprine HCl (Flexeril) 10 mg PO TID PRN PRN PRN Reason: SPASMS Fluticasone Propionate (Flonase Nasal [place]) 1 spray NASAL DAILY [facility] Furosemide (Lasix) 40 mg PO BID [facility] Last Admin: 07/20/19 10:23 Dose: 40 mg Documented by: Gabapentin (Neurontin) 300 mg PO BID [facility] Last Admin: 07/20/19 10:23 Dose: 300 mg Documented by: Glucagon () 1 mg IM .X1 PRN PRN Reason: Hypoglycemia Guaifenesin (Robitussin) 20 ml PO Q4H PRN PRN PRN Reason: COUGH Hydralazine HCl (Apresoline Iv) 10 mg IV Q4H PRN PRN PRN Reason: SBP > 160 Last Admin: 07/20/19 01:39 Dose: 10 mg Documented by: Sodium Chloride () 1,000 mls @ 100 mls/hr IV .Q10H [facility] Stop: 07/20/19 10:58 Last Infusion: 07/20/19 10:36 Dose: 0 mls/hr Documented by: Vancomycin IV Pharmacy to Dose (1 ea/ Sodium Chloride) 500 mls @ 250 mls/hr IV X1 PRN; Protocol PRN Reason: Rx to Dose Dextrose (Dextrose 10%-Water) 250 mls @ 999 mls/hr IV .Q16M PRN; Protocol PRN Reason: HYPOGLYCEMIA Piperacillin Sod/Tazobactam (Sod 3.375 gm/ Sodium Chloride) 50 mls @ 12.5 mls/hr IV Q12 [facility] Sodium Chloride () 250 mls @ 15 mls/hr IV .[id number] PRN PRN Reason: Saline Flush Sodium Chloride () 250 mls @ 15 mls/hr IV .[id number] PRN PRN Reason: Additional IVPB Infusion Vancomycin HCl (Vancomycin) 1,000 mg in 200 mls @ 200 mls/hr IV X1 ONE Stop: 07/20/19 10:59 Last Admin: 07/20/19 10:23 Dose: 200 mls/hr Documented by: Insulin Human Lispro (Humalog Kwikpen (Bkc)) 0 unit SC ACHS [facility]; Protocol Last Admin: 07/20/19 06:32 Dose: 6 u Documented by: Isosorbide Mononitrate (Imdur) 30 mg PO DAILY [facility] Last Admin: 07/20/19 10:23 Dose: 30 mg Documented by: Metoprolol Tartrate (Lopressor (Beta Emmanuel)) 50 mg PO BID [facility] Last Admin: 07/20/19 10:23 Dose: 50 mg Documented by: Morphine Sulfate () 4 mg IV Q3H PRN PRN PRN Reason: Pain Score 6-10/10 Nitroglycerin (Nitrostat) 0.4 mg SUBLINGUAL Q5M PRN PRN Reason: CARDIAC/CHEST PAIN Ondansetron HCl (Zofran) 4 mg IV Q8H PRN PRN PRN Reason: NAUSEA/VOMITING Last Admin: 07/20/19 08:07 Dose: 4 mg Documented by: Oxycodone HCl (Oxyir) 10 mg PO Q4H PRN PRN PRN Reason: Pain Score 4-5/10 Last Admin: 07/20/19 08:26 Dose: 10 mg Documented by: Pantoprazole Sodium (Protonix) 40 mg PO DAILY [facility] Last Admin: 07/20/19 10:23 Dose: 40 mg Documented by: Prochlorperazine Edisylate (Compazine Iv) 5 mg IV Q4H PRN PRN PRN Reason: Breakthrough nausea/vomiting Sevelamer Carbonate (Renvela) 2,400 mg PO TID [facility] Last Admin: 07/20/19 06:29 Dose: 2,400 mg Documented by: Sodium Chloride () 10 - 40 ml IV UD PRN PRN Reason: SALINE FLUSH Last Admin: 07/20/19 08:08 Dose: 10 ml Documented by: Throat Lozenges (Cepacol Sore Throat Lozenge) 1 lozenge MUCOUS MEM Q2H PRN PRN PRN Reason: Sore throat or cough Trazodone HCl (Desyrel) 50 mg PO QHS [facility] Vancomycin HCl () 1 lab MISCELL. DAILY@0600 [facility] Vancomycin HCl (Vancomycin Renal/Hd Dosing) 1 unit MISCELL. DAILY@0800 [facility] Last Admin: 07/20/19 10:06 Dose: Not Given Documented by: Code Visit Inpatient E&M: 41533 Subs Hosp L2
[2019-07-21 08:44] LABS: Hemoglobin 8.4 g/dL (13.0-16.5); Mean Corpuscular Hgb 28.8 pg (27.0-32.0); Mean Corpuscular Volume 95.9 fL (80-94); Mean Platelet Vol. 9.6 fl (6.2-12.0); Platelet Count 224 K/mm3 (150-450); RBC Distribution Width CV 16.9 % (11.6-14.6); RBC Distribution Width SD 58.8 fl (35.1-43.9); Red Blood Count 2.92 M/mm3 (4.6-6.2); White Blood Count 8.7 K/mm3 (4.4-11.0)
[2019-07-21 09:15] LABS: Anion Gap 9 (5-15); BUN 29 mg/dL (7-18); BUN/Creat Ratio 6.8 RATIO (10-20); Calcium,Total 8.4 mg/dL (8.5-10.1); Chloride 95 mmol/L (98-107); Creatinine, Serum 4.26 mg/dL (0.70-1.30); EST Glomerular Filtration Rate 16 mL/min (>60); Est Glom Filt Rate - Afr Amer 19 mL/min (>60); Glucose 205 mg/dL (74-106); Potassium 4.5 mmol/L (3.5-5.1); Sodium Level 130 mmol/L (136-145)
[2019-07-21] MEDS: Pantoprazole Sodium 40 MG Tablet PO (09:35)
[2019-07-21] MEDS: Metoprolol Tartrate 50 MG Tablet PO ×2 (09:35→22:04)
[2019-07-21] MEDS: Isosorbide Mononitrate 30 MG Tablet PO (09:35)
[2019-07-21] MEDS: Fluticasone 0.05% 1 SPRAY NASAL.SRY NASAL (09:37)
[2019-07-21] MEDS: Aspirin E.C. 81 MG Tablet PO (09:37)
[2019-07-21] MEDS: Furosemide 40 MG Tablet PO ×2 (09:37→22:04)
[2019-07-21] MEDS: Gabapentin 300 MG Capsule PO ×2 (09:37→22:04)
[2019-07-21] MEDS: amLODIPine 10 MG Tablet PO (09:37)
--- NOTE | 2019-07-21 09:48 | PN_ITS ---
Patient Problems: Active and Suspected Problems (Last Reviewed 07/06/19 @ 09:26 by Eze Rivera MD) Sepsis (Acute) HCAP (healthcare-associated pneumonia) (Acute) Subjective: The patient was seen and examined at the bedside this morning. Events from the last 24 hours have been reviewed. The patient is currently afebrile, hemo dynamically stable and maintaining appropriate oxygen saturations on 3 L/min via nasal cannula. The patient did tolerate BiPAP therapy overnight. He does report residual shortness of breath this morning. Objective: The patient's most recent lab work, culture data and imaging studies have all been personally reviewed. Preliminary infectious work-up has been unrevealing to date. - Physical Exam Vitals/I&O's: Vital Signs Temp Pulse Resp BP Pulse Ox 97.6 F L 78 18 162/73 H 99 07/21/19 09:30 07/21/19 09:35 07/21/19 09:30 07/21/19 09:30 07/21/19 09:30 Oxygen Flow Rate (L/min) 3 Oxygen Delivery Method Nasal Cannula Weight: 259 lb 4.218 oz Body Mass Index (BMI) 40.9 Finger Stick Blood Glucose 191 Intake and Output for Last 24 Hours 07/19/19 07/20/19 07/21/19 23:59 23:59 23:59 Intake Total 2133.34 / 2133.34 50 / 50 Output Total 22985 / 04646 0 / 0 Balance -8066.66 / -8066.66 50 / 50 General: Alert, Cooperative, No apparent distress HEENT: Atraumatic, PERRLA, Normocephalic Oral: No Gingival or Mucosal Lesions/ Ulcerations Neck: Supple, No Nodes, Trachea Midline Lungs: No rhonchi, No wheeze, No rales, Diminished Cardiovascular: Regular rate, Regular Rhythm, Normal S1, Normal S2, No murmurs Abdomen: Bowel Sounds Present, Soft, Non Tender, Obese Extremities: No clubbing, No cyanosis, Edema Skin: No breakdown Musculoskeletal: No Tenderness to Palpation of Joints or Extremities Lymphatic: No Cervical, Supraclavicular, or Inguinal Adenopathy Neurological: Cranial nerves II-XII grossly intact, Neuro grossly intact Psych/Mental Status: Normal Affect, Appropriate Labs (Last 48 Hours) 07/19/19 07/19/19 07/19/19 22:30 22:30 22:30 WBC 17.5 H RBC 3.47 L Hgb 9.7 L Hct 32.2 L MCV 92.8 MCH 28.0 MCHC 30.1 L RDW Std Deviation 58.4 H RDW Coeff of Roberto 17.2 H Plt Count 320 MPV 9.9 Immature Gran % (Auto) 1.200 H Neut % (Auto) 85.4 H Lymph % (Auto) 5.5 L [place] % (Auto) 5.2 Eos % (Auto) 2.1 Baso % (Auto) 0.6 Absolute Neuts (auto) 14.9 H Absolute Lymphs (auto) 0.96 Nucleated RBC % 0 Sodium 131 L Potassium 4.8 Chloride 93 L Carbon Dioxide 27.0 Anion Gap 11 BUN 37 H Creatinine 5.77 H Estim Creat Clear Calc 14.32 Est GFR (MDRD) Af Amer 13 L Est GFR (MDRD) Non-Af 11 L BUN/Creatinine Ratio 6.4 L Glucose 404 H Lactic Acid 1.9 Calcium 8.9 Phosphorus Magnesium Troponin I < 0.015 B-Natriuretic Peptide Urine Color Urine Clarity Urine pH Ur Specific [place] Urine Protein Urine Glucose (UA) Urine Ketones Urine Occult Blood Urine Nitrite Urine Bilirubin Urine Urobilinogen Ur Leukocyte Esterase Urine RBC Urine WBC Ur Squamous Epith Cells Urine Bacteria Urine Mucus MRSA (PCR) POC Glucose 07/19/19 07/20/19 07/20/19 22:30 01:41 06:32 WBC RBC Hgb Hct MCV MCH MCHC RDW Std Deviation RDW Coeff of Roberto Plt Count MPV Immature Gran % (Auto) Neut % (Auto) Lymph % (Auto) [place] % (Auto) Eos % (Auto) Baso % (Auto) Absolute Neuts (auto) Absolute Lymphs (auto) Nucleated RBC % Sodium Potassium Chloride Carbon Dioxide Anion Gap BUN Creatinine Estim Creat Clear Calc Est GFR (MDRD) Af Amer Est GFR (MDRD) Non-Af BUN/Creatinine Ratio Glucose Lactic Acid Calcium Phosphorus 3.7 Magnesium 2.1 Troponin I B-Natriuretic Peptide Urine Color Urine Clarity Urine pH Ur Specific [place] Urine Protein Urine Glucose (UA) Urine Ketones Urine Occult Blood Urine Nitrite Urine Bilirubin Urine Urobilinogen Ur Leukocyte Esterase Urine RBC Urine WBC Ur Squamous Epith Cells Urine Bacteria Urine Mucus MRSA (PCR) POC Glucose 413 H 306 H 07/20/19 07/20/1907/20/20 08:22 08:22 08:22 WBC 13.0 H RBC 3.07 L Hgb 8.9 L Hct 29.0 L MCV 94.5 H MCH 29.0 MCHC 30.7 L RDW Std Deviation 58.4 H RDW Coeff of Roberto 17.0 H Plt Count 239 MPV 9.3 Immature Gran % (Auto) 1.000 H Neut % (Auto) 82.2 H Lymph % (Auto) 7.4 L [place] % (Auto) 6.0 Eos % (Auto) 2.8 Baso % (Auto) 0.6 Absolute Neuts (auto) 10.7 H Absolute Lymphs (auto) 0.97 Nucleated RBC % 0 Sodium 132 L Potassium 4.5 Chloride 98 Carbon Dioxide 27.0 Anion Gap 7 BUN 42 H Creatinine 6.19 H Estim Creat Clear Calc 13.35 Est GFR (MDRD) Af Amer 12 L Est GFR (MDRD) Non-Af 10 L BUN/Creatinine Ratio 6.8 L Glucose 274 H Lactic Acid Calcium 8.9 Phosphorus Magnesium Troponin I B-Natriuretic Peptide 1522.3 H Urine Color Urine Clarity Urine pH Ur Specific [place] Urine Protein Urine Glucose (UA) Urine Ketones Urine Occult Blood Urine Nitrite Urine Bilirubin Urine Urobilinogen Ur Leukocyte Esterase Urine RBC Urine WBC Ur Squamous Epith Cells Urine Bacteria Urine Mucus MRSA (PCR) POC Glucose 07/20/19 07/20/19 07/20/19 11:50 17:51 19:30 WBC RBC Hgb Hct MCV MCH MCHC RDW Std Deviation RDW Coeff of Roberto Plt Count MPV Immature Gran % (Auto) Neut % (Auto) Lymph % (Auto) [place] % (Auto) Eos % (Auto) Baso % (Auto) Absolute Neuts (auto) Absolute Lymphs (auto) Nucleated RBC % Sodium Potassium Chloride Carbon Dioxide Anion Gap BUN Creatinine Estim Creat Clear Calc Est GFR (MDRD) Af Amer Est GFR (MDRD) Non-Af BUN/Creatinine Ratio Glucose Lactic Acid Calcium Phosphorus Magnesium Troponin I B-Natriuretic Peptide Urine Color Yellow Urine Clarity Clear Urine pH 7.0 Ur Specific [place] 1.010 Urine Protein 500 H Urine Glucose (UA) 1000 H Urine Ketones Negative Urine Occult Blood 10 H Urine Nitrite Negative Urine Bilirubin Negative Urine Urobilinogen Normal Ur Leukocyte Esterase Negative Urine RBC 0-5 SEEN Urine WBC 0 SEEN Ur Squamous Epith Cells 0-5 SEEN Urine Bacteria 0 SEEN Urine Mucus 0 SEEN MRSA (PCR) POC Glucose 289 H 179 H 07/20/19 07/20/19 07/21/19 19:32 22:25 06:47 WBC RBC Hgb Hct MCV MCH MCHC RDW Std Deviation RDW Coeff of Roberto Plt Count MPV Immature Gran % (Auto) Neut % (Auto) Lymph % (Auto) [place] % (Auto) Eos % (Auto) Baso % (Auto) Absolute Neuts (auto) Absolute Lymphs (auto) Nucleated RBC % Sodium Potassium Chloride Carbon Dioxide Anion Gap BUN Creatinine Estim Creat Clear Calc Est GFR (MDRD) Af Amer Est GFR (MDRD) Non-Af BUN/Creatinine Ratio Glucose Lactic Acid Calcium Phosphorus Magnesium Troponin I B-Natriuretic Peptide Urine Color Urine Clarity Urine pH Ur Specific [place] Urine Protein Urine Glucose (UA) Urine Ketones Urine Occult Blood Urine Nitrite Urine Bilirubin Urine Urobilinogen Ur Leukocyte Esterase Urine RBC Urine WBC Ur Squamous Epith Cells Urine Bacteria Urine Mucus MRSA (PCR) POSITIVE H POC Glucose 253 H 177 H 07/21/19 07/21/19 08:38 08:38 WBC 8.7 RBC 2.92 L Hgb 8.4 L Hct 28.0 L MCV 95.9 H MCH 28.8 MCHC 30.0 L RDW Std Deviation 58.8 H RDW Coeff of Roberto 16.9 H Plt Count 224 MPV 9.6 Immature Gran % (Auto) Neut % (Auto) Lymph % (Auto) [place] % (Auto) Eos % (Auto) Baso % (Auto) Absolute Neuts (auto) Absolute Lymphs (auto) Nucleated RBC % Sodium 130 L Potassium 4.5 Chloride 95 L Carbon Dioxide 26.0 Anion Gap 9 BUN 29 H Creatinine 4.26 H Estim Creat Clear Calc 19.40 Est GFR (MDRD) Af Amer 19 L Est GFR (MDRD) Non-Af 16 L BUN/Creatinine Ratio 6.8 L Glucose 205 H Lactic Acid Calcium 8.4 L Phosphorus Magnesium Troponin I B-Natriuretic Peptide Urine Color Urine Clarity Urine pH Ur Specific [place] Urine Protein Urine Glucose (UA) Urine Ketones Urine Occult Blood Urine Nitrite Urine Bilirubin Urine Urobilinogen Ur Leukocyte Esterase Urine RBC Urine WBC Ur Squamous Epith Cells Urine Bacteria Urine Mucus MRSA (PCR) POC Glucose Microbiology 07/20/19 13:20 Sputum, Expectorated/Coughed Respiratory Culture - Preliminary Appears to be normal respiratory pepper. Further studies to follow. 07/20/19 19:30 Urine, Clean Catch Legionella Antigen - Final 07/20/19 19:30 Urine, Clean Catch Streptococcus pneumoniae Antigen (M - Final 07/19/19 22:50 Mucosa - Nasopharyngeal Respiratory Panel (PCR) - Final 07/19/19 22:50 Mucosa - Nasopharyngeal Influenza Types A,B Direct FA (JAEL) - Final Clinical Impression(s) from Imaging Studies Chest X-Ray 07/19/19 22:15 IMPRESSION: Decrease in right perihilar opacity. Chest otherwise appears similar. at 2238 Reported and signed by: Ashli Vazquez MD Electronically Signed: Ashli Vazquez MD at 22:37 EST Tel , Service support , Current Medications Acetaminophen (Tylenol) 650 mg PO Q6H PRN PRN PRN Reason: Pain Score 1-3/Temp > 100.7 F Last Admin: 07/20/19 07:30 Dose: 650 mg Documented by: Al Hydroxide/Mg Hydroxide (Mylanta Ii) 30 ml PO Q6H PRN PRN PRN Reason: Gastric Burning Albuterol Sulfate (Ventolin Aerosols) 2.5 mg INHALATION Q2H PRN PRN PRN Reason: Shortness of Breath/Wheezing Albuterol/Ipratropium (Duoneb) 3 ml INHALATION Q4HWA.RT [facility] Last Admin: 07/21/19 07:11 Dose: 3 ml Documented by: Amlodipine Besylate (Norvasc) 10 mg PO DAILY [facility] Last Admin: 07/21/19 09:37 Dose: 10 mg Documented by: Aspirin (Ecotrin) 81 mg PO DAILY [facility] Last Admin: 07/21/19 09:37 Dose: 81 mg Documented by: Atorvastatin Calcium (Lipitor) 20 mg PO QHS [facility] Last Admin: 07/20/19 22:21 Dose: 20 mg Documented by: Cyclobenzaprine HCl (Flexeril) 10 mg PO TID PRN PRN PRN Reason: SPASMS Fluticasone Propionate (Flonase Nasal [place]) 1 spray NASAL DAILY [facility] Last Admin: 07/21/19 09:37 Dose: 1 spray Documented by: Furosemide (Lasix) 40 mg PO BID [facility] Last Admin: 07/21/19 09:37 Dose: 40 mg Documented by: Gabapentin (Neurontin) 300 mg PO BID [facility] Last Admin: 07/21/19 09:37 Dose: 300 mg Documented by: Glucagon () 1 mg IM .X1 PRN PRN Reason: Hypoglycemia Guaifenesin (Robitussin) 20 ml PO Q4H PRN PRN PRN Reason: COUGH Last Admin: 07/20/19 22:36 Dose: 20 ml Documented by: Hydralazine HCl (Apresoline Iv) 10 mg IV Q4H PRN PRN PRN Reason: SBP > 160 Last Admin: 07/20/19 01:39 Dose: 10 mg Documented by: Vancomycin IV Pharmacy to Dose (1 ea/ Sodium Chloride) 500 mls @ 250 mls/hr IV X1 PRN; Protocol PRN Reason: Rx to Dose Dextrose (Dextrose 10%-Water) 250 mls @ 999 mls/hr IV .Q16M PRN; Protocol PRN Reason: HYPOGLYCEMIA Piperacillin Sod/Tazobactam (Sod 3.375 gm/ Sodium Chloride) 50 mls @ 12.5 mls/hr IV Q12 [facility] Last Admin: 07/21/19 09:44 Dose: 12.5 mls/hr Documented by: Sodium Chloride () 250 mls @ 15 mls/hr IV .[id number] PRN PRN Reason: Saline Flush Sodium Chloride () 250 mls @ 15 mls/hr IV .[id number] PRN PRN Reason: Additional IVPB Infusion Insulin Human Lispro (Humalog Kwikpen (Bkc)) 0 unit SC ACHS [facility]; Protocol Last Admin: 07/21/19 06:48 Dose: 2 u Documented by: Isosorbide Mononitrate (Imdur) 30 mg PO DAILY [facility] Last Admin: 07/21/19 09:35 Dose: 30 mg Documented by: Metoprolol Tartrate (Lopressor (Beta Emmanuel)) 50 mg PO BID [facility] Last Admin: 07/21/19 09:35 Dose: 50 mg Documented by: Morphine Sulfate () 4 mg IV Q3H PRN PRN PRN Reason: Pain Score 6-10/10 Nitroglycerin (Nitrostat) 0.4 mg SUBLINGUAL Q5M PRN PRN Reason: CARDIAC/CHEST PAIN Ondansetron HCl (Zofran) 4 mg IV Q8H PRN PRN PRN Reason: NAUSEA/VOMITING Last Admin: 07/20/19 08:07 Dose: 4 mg Documented by: Oxycodone HCl (Oxyir) 10 mg PO Q4H PRN PRN PRN Reason: Pain Score 4-5/10 Last Admin: 07/20/19 18:38 Dose: 10 mg Documented by: Pantoprazole Sodium (Protonix) 40 mg PO DAILY [facility] Last Admin: 07/21/19 09:35 Dose: 40 mg Documented by: Prochlorperazine Edisylate (Compazine Iv) 5 mg IV Q4H PRN PRN PRN Reason: Breakthrough nausea/vomiting Sevelamer Carbonate (Renvela) 2,400 mg PO TID [facility] Last Admin: 07/21/19 06:42 Dose: 2,400 mg Documented by: Sodium Chloride () 10 - 40 ml IV UD PRN PRN Reason: SALINE FLUSH Last Admin: 07/20/19 22:21 Dose: 10 ml Documented by: Throat Lozenges (Cepacol Sore Throat Lozenge) 1 lozenge MUCOUS MEM Q2H PRN PRN PRN Reason: Sore throat or cough Last Admin: 07/20/19 22:36 Dose: 1 lozenge Documented by: Trazodone HCl (Desyrel) 50 mg PO QHS [facility] Last Admin: 07/20/19 22:23 Dose: 50 mg Documented by: Vancomycin HCl () 1 lab MISCELL. DAILY@0600 [facility] Last Admin: 07/21/19 06:51 Dose: Not Given Documented by: Vancomycin HCl (Vancomycin Renal/Hd Dosing) 1 unit MISCELL. DAILY@0800 [facility] Last Admin: 07/21/19 09:29 Dose: Not Given Documented by: Medical Necessity - Tobacco Use Smoking Status: Never smoker Tobacco Use: Non-smoker Assessment/Plan All Active Problems (Last Reviewed 07/06/19 @ 09:26 by Eze Rivera MD) Community acquired pneumonia (Acute) Sepsis (Acute) HCAP (healthcare-associated pneumonia) (Acute) RECOMMENDATIONS: 1. Continue empiric antimicrobials, pending infectious work-up. 2. Wean supplemental oxygen to maintain saturations at or above 90%. 3. Continue BiPAP therapy with a pressure support of 18/12 centimeters of water with naps and nightly. 4. Encourage incentive spirometer use and mobilize patient as tolerated. 5. Outpatient pulmonary follow-up is once again recommended upon discharge from the hospital. IMPRESSIONS: 1. Shortness of breath/chronic hypoxemic respiratory failure The patient reports that he utilizes supplemental oxygen at his baseline, as needed. While the patient was just recently admitted for 7 days and treated with broad-spectrum antibiotics for community-acquired pneumonia, he now reports worsening shortness of breath. The patient's plain film chest x-ray was personally reviewed and actually shows improvement in the previously noted right midlung field lung opacity. Therefore, I do not feel that the patient has recurrent pneumonia. His chest x-ray findings likely represent radiographic evidence of a resolving pneumonia. Given the patient's recent hospitalization and [facility] home stay, he will be continued on antibiotics, pending finalized infectious work-up. 2. End-stage renal disease on hemodialysis Nephrology following to assist with hemodialysis needs. 3. Obstructive sleep apnea Previous sleep study from May 2017 revealed the need for nocturnal BiPAP therapy with a pressure support of 18/12 centimeters of water. This will be continued while the patient is admitted to the hospital. 4. History of heart failure with preserved ejection fraction/peripheral vascular disease Continue baseline cardiac medications. 5. Hypertension/hyperlipidemia/obesity/diabetes mellitus/chronic lower extremity wounds/GERD/history of medical noncompliance and follow-up Complicates care, management, recovery and prognosis. Continue home medications as indicated. This note was generated with [employer] software. It may contain incorrect words, spelling, and punctuation that were not noted in checking the note before signing. Code Visit Inpatient E&M: 92455 Subs Hosp L2
[2019-07-21 12:20] LABS: Bedside Glucose 327 mg/dL (70-110)
--- NOTE | 2019-07-21 13:08 | PN_ITS ---
Progress Note 48 y/o M with ESRD due to diabetes, hypertension on HD TTS. Received dialysis Monday, chronic schedule with 5.1L fluid removal. Admitted for pneumonia with low gr fever. Recently discharged from hospital for same. Pt from [facility]. VSS, Afebrile. PE unremarkable. Labs reviewed. a/p Next dialysis Monday. STROKE Vital Signs/Narrative: Vital Signs Temp Pulse Resp BP Pulse Ox 07/21/19 10:00 67 07/21/19 09:35 78 07/21/19 09:30 97.6 F L 71 18 162/73 H 99
[2019-07-21 17:50] LABS: Bedside Glucose 334 mg/dL (70-110)
--- NOTE | 2019-07-21 18:25 | PCM.RX.CS ---
Consult Pharmacy has been consulted to manage selected antiobiotic: Vancomycin Type of Consult: Follow-up Suspected Infection: Pneumonia Prior Doses of Antibiotics Received/Current Regimen: Pt received a x1 dose of IV Vancomycin 1750mg in the ER on 07/20/19 at 0141. Labs: Sodium 130 mmol/L (136-145) L 07/21/19 08:38 Potassium 4.5 mmol/L (3.5-5.1) 07/21/19 08:38 Chloride 95 mmol/L (98-107) L 07/21/19 08:38 Carbon Dioxide 26.0 mmol/L (21.0-32.0) 07/21/19 08:38 Anion Gap 9 (5-15) 07/21/19 08:38 BUN 29 mg/dL (7-18) H 07/21/19 08:38 Creatinine 4.26 mg/dL (0.70-1.30) H 07/21/19 08:38 Est GFR (MDRD) Af Amer 19 mL/min (>60) L 07/21/19 08:38 Est GFR (MDRD) Non-Af 16 mL/min (>60) L 07/21/19 08:38 BUN/Creatinine Ratio 6.8 RATIO (10-20) L 07/21/19 08:38 Glucose 205 mg/dL (74-106) H 07/21/19 08:38 Microbiology: Microbiology 07/20/19 13:20 Sputum, Expectorated/Coughed Gram Stain - Final 07/20/19 13:20 Sputum, Expectorated/Coughed Respiratory Culture - Preliminary Appears to be normal respiratory pepper. Further studies to follow. 07/20/19 19:30 Urine, Clean Catch Legionella Antigen - Final 07/20/19 19:30 Urine, Clean Catch Streptococcus pneumoniae Antigen (M - Final 07/19/19 22:50 Mucosa - Nasopharyngeal Respiratory Panel (PCR) - Final 07/19/19 22:50 Mucosa - Nasopharyngeal Influenza Types A,B Direct FA (JAEL) - Final Weight used for dosin kg Estimated Creatinine Clearance: HD Goal Trough: 15-20 mcg/mL Pharmacy Plan for Drug Dosing: Pt received a dose of Vancomycin 1750mg IV in the ER on 07/20/19 at 0141. He is on a Monday, , Monday dialysis schedule. Pt did receive dialysis on Monday07/20/19. Before he received dialysis he received another 1000mg dose of IV Vancomycin. Pt is scheduled for dialysis again on Monday07/23/19. A random level will be obtained in the morning of the . If the level is above 20, he will not need another dose of Vancomycin. If the level is below 20, pharmacy will dose accordingly. Pharmacy Service will continue to monitor and adjust dosing as required. Follow-Up Labs: Trough Vancomycin - random level 07/23/19 @ 0600
[2019-07-21] MEDS: Atorvastatin Calcium 20 MG Tablet PO (22:04)
[2019-07-21] MEDS: traZODone 50 MG Tablet PO (22:04)
[2019-07-21 22:16] LABS: Bedside Glucose 235 mg/dL (70-110)
[2019-07-22] VITALS (14 sets, daily range): BP systolic 128–158; BP diastolic 67–97; PULSE 63–74; RESP 12–20; TEMP 36.4–36.8; O2SAT 95–100
[2019-07-22] MEDS: guaiFENesin 10 ML UDC (200MG/10ML) 20 ML PO ×2 (02:15→23:59)
[2019-07-22] MEDS: BENZOCAINE/MENTHOL 1 LOZENGE MUCOUS MEM ×2 (02:19→23:51)
[2019-07-22] MEDS: SEVELAMER CARBONATE 800 MG TABLET 2400 MG PO ×3 (06:25→21:44)
[2019-07-22] MEDS: Insulin Lispro 100 UNIT/ML INSULN.PEN SC ×4 (06:28→21:40)
[2019-07-22 06:45] LABS: Bedside Glucose 162 mg/dL (70-110)
[2019-07-22 06:50] LABS: Hematocrit 25.4 % (40-54); Hemoglobin 7.9 g/dL (13.0-16.5); Mean Corp Hgb Conc 31.1 g/dL (32-36); Mean Corpuscular Hgb 28.9 pg (27.0-32.0); Mean Platelet Vol. 9.9 fl (6.2-12.0); Platelet Count 240 K/mm3 (150-450); RBC Distribution Width CV 16.2 % (11.6-14.6); RBC Distribution Width SD 55.3 fl (35.1-43.9); Red Blood Count 2.73 M/mm3 (4.6-6.2); White Blood Count 9.8 K/mm3 (4.4-11.0)
[2019-07-22 07:06] LABS: Anion Gap 8 (5-15); BUN 41 mg/dL (7-18); BUN/Creat Ratio 7.7 RATIO (10-20); Calcium,Total 8.4 mg/dL (8.5-10.1); Chloride 91 mmol/L (98-107); Creatinine, Serum 5.35 mg/dL (0.70-1.30); EST Glomerular Filtration Rate 12 mL/min (>60); Est Glom Filt Rate - Afr Amer 15 mL/min (>60); Estimated Creatinine Clearance 15.44 ml/min; Glucose 166 mg/dL (74-106); Magnesium 1.9 mg/dL (1.6-2.6); Potassium 4.9 mmol/L (3.5-5.1); Sodium Level 126 mmol/L (136-145)
--- NOTE | 2019-07-22 08:14 | PCM.PN.PUL ---
Patient Problems: Active and Suspected Problems (Last Reviewed 07/06/19 @ 09:26 by Eze Rivera MD) Sepsis (Acute) HCAP (healthcare-associated pneumonia) (Acute) Subjective: Patient was able to tolerate BiPAP throughout the evening. Patient woke up appropriately, but did not want to interact this morning. Discussed with the nurses at the bedside. No acute concerns were reported overnight. Patient's family member at the bedside has no acute concerns. - Physical Exam Vitals/I&O's: Vital Signs Temp Pulse Resp BP Pulse Ox 36.8 C 66 16 128/97 H 100 07/22/19 03:50 07/22/19 03:50 07/22/19 03:50 07/22/19 03:50 07/22/19 03:50 Oxygen Flow Rate (L/min) 3 Oxygen Delivery Method Bi-pap Weight: 120.2 kg Body Mass Index (BMI) 40.9 Finger Stick Blood Glucose 191 Intake and Output for Last 24 Hours 07/20/19 07/21/19 07/22/19 23:59 23:59 23:59 Intake Total 2133.34 / 2133.34 820 / 820 50 / 50 Output Total 44573 / 73004 100 / 100 100 / 100 Balance -8066.66 / -8066.66 720 / 720 -50 / -50 General: Alert, Oriented x3, No apparent distress, - - Good BiPAP synchrony. Morbidly obese. HEENT: Atraumatic, PERRLA, EOMI, Normocephalic, - - No scleral icterus or injection Oral: No Gingival or Mucosal Lesions/ Ulcerations, Dry Mucosa, - - Full face BiPAP in place. Neck: Supple, No JVD, No Nodes, Trachea Midline Lungs: No rhonchi, No wheeze, No rales, Diminished Cardiovascular: Regular rate, Regular Rhythm, Normal S1, Normal S2, No murmurs, No rub noted, No Gallop Abdomen: Bowel Sounds Present, Soft, Non Tender, Non-Distended Extremities: No clubbing, No cyanosis, Edema - 3+ bilateral lower extremities Skin: No rashes, No breakdown, - - Some venous insufficiency changes of lower extremities Musculoskeletal: No Tenderness to Palpation of Joints or Extremities Lymphatic: No Cervical, Supraclavicular, or Inguinal Adenopathy Neurological: Cranial nerves II-XII grossly intact, Neuro grossly intact, Motor Exam 5/5 strength throughout Psych/Mental Status: Flat Affect Microbiology Past 72 Hours 07/20/19 13:20 Sputum, Expectorated/Coughed Gram Stain - Final 07/20/19 13:20 Sputum, Expectorated/Coughed Respiratory Culture - Preliminary Appears to be normal respiratory pepper. Further studies to follow. 07/20/19 19:30 Urine, Clean Catch Legionella Antigen - Final 07/20/19 19:30 Urine, Clean Catch Streptococcus pneumoniae Antigen (M - Final 07/19/19 22:50 Mucosa - Nasopharyngeal Respiratory Panel (PCR) - Final 07/19/19 22:50 Mucosa - Nasopharyngeal Influenza Types A,B Direct FA (JAEL) - Final Laboratory Results 07/21/19 08:38: WBC 8.7, RBC 2.92 L, Hgb 8.4 L, Hct 28.0 L, MCV 95.9 H, MCH 28.8, MCHC 30.0 L, RDW Std Deviation 58.8 H, RDW Coeff of Roberto 16.9 H, Plt Count 224, MPV 9.6 07/21/19 08:38: Sodium 130 L, Potassium 4.5, Chloride 95 L, Carbon Dioxide 26.0, Anion Gap 9, BUN 29 H, Creatinine 4.26 H, Estim Creat Clear Calc 19.40, Est GFR (MDRD) Af Amer 19 L, Est GFR (MDRD) Non-Af 16 L, BUN/Creatinine Ratio 6.8 L, Glucose 205 H, Calcium 8.4 L 07/21/19 11:57: POC Glucose 327 H 07/21/19 17:42: POC Glucose 334 H 07/21/19 22:07: POC Glucose 235 H 07/22/19 06:04: WBC 9.8, RBC 2.73 L, Hgb 7.9 L, Hct 25.4 L, MCV 93.0, MCH 28.9, MCHC 31.1 L, RDW Std Deviation 55.3 H, RDW Coeff of Roberto 16.2 H, Plt Count 240, MPV 9.9 07/22/19 06:04: Sodium 126 L, Potassium 4.9, Chloride 91 L, Carbon Dioxide 27.0, Anion Gap 8, BUN 41 H, Creatinine 5.35 H, Estim Creat Clear Calc 15.44, Est GFR (MDRD) Af Amer 15 L, Est GFR (MDRD) Non-Af 12 L, BUN/Creatinine Ratio 7.7 L, Glucose 166 H, Calcium 8.4 L, Magnesium 1.9 07/22/19 06:28: POC Glucose 162 H Current Medications Acetaminophen (Tylenol) 650 mg PO Q6H PRN PRN PRN Reason: Pain Score 1-3/Temp > 100.7 F Last Admin: 07/20/19 07:30 Dose: 650 mg Documented by: Al Hydroxide/Mg Hydroxide (Mylanta Ii) 30 ml PO Q6H PRN PRN PRN Reason: Gastric Burning Albuterol Sulfate (Ventolin Aerosols) 2.5 mg INHALATION Q2H PRN PRN PRN Reason: Shortness of Breath/Wheezing Albuterol/Ipratropium (Duoneb) 3 ml INHALATION Q4HWA.RT [facility] Last Admin: 07/21/19 19:34 Dose: Not Given Documented by: Amlodipine Besylate (Norvasc) 10 mg PO DAILY [facility] Last Admin: 07/21/19 09:37 Dose: 10 mg Documented by: Aspirin (Ecotrin) 81 mg PO DAILY [facility] Last Admin: 07/21/19 09:37 Dose: 81 mg Documented by: Atorvastatin Calcium (Lipitor) 20 mg PO QHS [facility] Last Admin: 07/21/19 22:04 Dose: 20 mg Documented by: Cyclobenzaprine HCl (Flexeril) 10 mg PO TID PRN PRN PRN Reason: SPASMS Fluticasone Propionate (Flonase Nasal [place]) 1 spray NASAL DAILY [facility] Last Admin: 07/21/19 09:37 Dose: 1 spray Documented by: Furosemide (Lasix) 40 mg PO BID [facility] Last Admin: 07/21/19 22:04 Dose: 40 mg Documented by: Gabapentin (Neurontin) 300 mg PO BID [facility] Last Admin: 07/21/19 22:04 Dose: 300 mg Documented by: Glucagon () 1 mg IM .X1 PRN PRN Reason: Hypoglycemia Guaifenesin (Robitussin) 20 ml PO Q4H PRN PRN PRN Reason: COUGH Last Admin: 07/22/19 02:15 Dose: 20 ml Documented by: Hydralazine HCl (Apresoline Iv) 10 mg IV Q4H PRN PRN PRN Reason: SBP > 160 Last Admin: 07/20/19 01:39 Dose: 10 mg Documented by: Vancomycin IV Pharmacy to Dose (1 ea/ Sodium Chloride) 500 mls @ 250 mls/hr IV X1 PRN; Protocol PRN Reason: Rx to Dose Dextrose (Dextrose 10%-Water) 250 mls @ 999 mls/hr IV .Q16M PRN; Protocol PRN Reason: HYPOGLYCEMIA Piperacillin Sod/Tazobactam (Sod 3.375 gm/ Sodium Chloride) 50 mls @ 12.5 mls/hr IV Q12 [facility] Last Infusion: 07/22/19 02:04 Dose: Infused Documented by: Sodium Chloride () 250 mls @ 15 mls/hr IV .[id number] PRN PRN Reason: Saline Flush Sodium Chloride () 250 mls @ 15 mls/hr IV .[id number] PRN PRN Reason: Additional IVPB Infusion Insulin Human Lispro (Humalog Kwikpen (Bkc)) 0 unit SC ACHS [facility]; Protocol Last Admin: 07/22/19 06:28 Dose: 2 u Documented by: Isosorbide Mononitrate (Imdur) 30 mg PO DAILY [facility] Last Admin: 07/21/19 09:35 Dose: 30 mg Documented by: Metoprolol Tartrate (Lopressor (Beta Emmanuel)) 50 mg PO BID [facility] Last Admin: 07/21/19 22:04 Dose: 50 mg Documented by: Morphine Sulfate () 4 mg IV Q3H PRN PRN PRN Reason: Pain Score 6-10/10 Nitroglycerin (Nitrostat) 0.4 mg SUBLINGUAL Q5M PRN PRN Reason: CARDIAC/CHEST PAIN Ondansetron HCl (Zofran) 4 mg IV Q8H PRN PRN PRN Reason: NAUSEA/VOMITING Last Admin: 07/20/19 08:07 Dose: 4 mg Documented by: Oxycodone HCl (Oxyir) 10 mg PO Q4H PRN PRN PRN Reason: Pain Score 4-5/10 Last Admin: 07/20/19 18:38 Dose: 10 mg Documented by: Pantoprazole Sodium (Protonix) 40 mg PO DAILY [facility] Last Admin: 07/21/19 09:35 Dose: 40 mg Documented by: Prochlorperazine Edisylate (Compazine Iv) 5 mg IV Q4H PRN PRN PRN Reason: Breakthrough nausea/vomiting Sevelamer Carbonate (Renvela) 2,400 mg PO TID [facility] Last Admin: 07/22/19 06:25 Dose: 2,400 mg Documented by: Sodium Chloride () 10 - 40 ml IV UD PRN PRN Reason: SALINE FLUSH Last Admin: 07/20/19 22:21 Dose: 10 ml Documented by: Throat Lozenges (Cepacol Sore Throat Lozenge) 1 lozenge MUCOUS MEM Q2H PRN PRN PRN Reason: Sore throat or cough Last Admin: 07/22/19 02:19 Dose: 1 lozenge Documented by: Trazodone HCl (Desyrel) 50 mg PO QHS [facility] Last Admin: 07/21/19 22:04 Dose: 50 mg Documented by: Vancomycin HCl () 1 lab MISCELL. DAILY@0600 [facility] Last Admin: 07/22/19 05:21 Dose: Not Given Documented by: Vancomycin HCl (Vancomycin Renal/Hd Dosing) 1 unit MISCELL. DAILY@0800 [facility] Last Admin: 07/22/19 08:02 Dose: Not Given Documented by: Medical Necessity - Tobacco Use Smoking Status: Never smoker Tobacco Use: Non-smoker Assessment/Plan All Active Problems (Last Reviewed 07/06/19 @ 09:26 by Eze Rivera MD) Community acquired pneumonia (Acute) Sepsis (Acute) HCAP (healthcare-associated pneumonia) (Acute) RECOMMENDATIONS: 1. Continue empiric antimicrobials until cultures resulted as negative 2. Wean supplemental oxygen to maintain saturations at or above 90%. 3. Continue BiPAP therapy with a pressure support of 18/12 centimeters of water with naps and nightly. 4. Encourage incentive spirometer use and mobilize patient as tolerated. 5. Outpatient pulmonary follow-up is once again recommended upon discharge from the hospital. IMPRESSIONS: 1. Shortness of breath/chronic hypoxemic respiratory failure Patient was able to tolerate BiPAP overnight. Patient has been on minimal nasal cannula oxygen during the day. Patient did not want a wake up to discuss current status, but family member at the bedside felt that he was improving. Patient does have some lower extremity edema and may benefit from volume removal with hemodialysis. Reasonable to continue antibiotics until cultures are negative. 2. End-stage renal disease on hemodialysis Nephrology following to assist with hemodialysis needs. 3. Obstructive sleep apnea Previous sleep study from May 2017 revealed the need for nocturnal BiPAP therapy with a pressure support of 18/12 centimeters of water. This will be continued while the patient is admitted to the hospital. 4. History of heart failure with preserved ejection fraction/peripheral vascular disease Continue baseline cardiac medications. 5. Hypertension/hyperlipidemia/obesity/diabetes mellitus/chronic lower extremity wounds/GERD/history of medical noncompliance and follow-up Complicates care, management, recovery and prognosis. Continue home medications as indicated. Code Visit Inpatient E&M: 07611 Subs Hosp L2
[2019-07-22] MEDS: Metoprolol Tartrate 50 MG Tablet PO ×2 (09:35→21:45)
[2019-07-22] MEDS: Furosemide 40 MG Tablet PO ×2 (09:36→21:44)
[2019-07-22] MEDS: Isosorbide Mononitrate 30 MG Tablet PO (09:36)
[2019-07-22] MEDS: Fluticasone 0.05% 1 SPRAY NASAL.SRY NASAL (09:36)
[2019-07-22] MEDS: Aspirin E.C. 81 MG Tablet PO (09:36)
[2019-07-22] MEDS: amLODIPine 10 MG Tablet PO (09:37)
[2019-07-22] MEDS: Gabapentin 300 MG Capsule PO ×2 (09:37→21:44)
[2019-07-22] MEDS: Pantoprazole Sodium 40 MG Tablet PO (09:37)
[2019-07-22 11:20] LABS: Bedside Glucose 289 mg/dL (70-110)
--- NOTE | 2019-07-22 12:07 | NURSING ---
wound photo: left foot
--- NOTE | 2019-07-22 12:08 | NURSING ---
wound photo: right lateral foot
--- NOTE | 2019-07-22 15:51 | CASEMGMT ---
Social Work Note Per RN pt has completed HCPOA and LW. SW reviewed echart and both documents are on pt's echart. SW printed off documents and placed on pt's chart. Ade Kitchen DIRECTOR PROCESS ENGINEERING, SOCIAL SERVICE MANAGER
[2019-07-22] MEDS: Ipratropium/Albuterol Sulfate 3 ML AMPUL.NEB INHALATION ×2 (15:55→23:03)
--- NOTE | 2019-07-22 16:29 | CASEMGMT ---
Social Work Note SW updated that pt has CM Patricia Minor. SW placed a call to Patricia Minor and left message informing her of pt's admission to [facility]. Ade Kitchen POULTRY PINNER, BEER COOLER
--- NOTE | 2019-07-22 17:16 | PCM.PN.BLA ---
Progress Note clinically stable VSS, afebrile labs reviewed a/p 1. ESRD HD next on 2. Hyponatremia due to vol expansion, hx high fluid gains. 3. HTN stable 4. DM2 stable 5. Pna, stable on antibx cx no growth so far. Primary service mgmt 6. morbid obesity BIPAP pulm following 7. anemia hgb stable STROKE Vital Signs/Narrative: Vital Signs Temp Pulse Resp BP Pulse Ox 07/22/19 15:55 63 16 07/22/19 14:53 97.8 F 66 16 149/67 H 97
--- NOTE | 2019-07-22 17:20 | PCM.PN.BLA ---
Progress Note clinically stable, no change VSS, AF Labs reviewed A/P 1. ESRD HD tomorrow 2. hyponatremia due to volume expansion. Hx noncompliance with fluid restriction 3. HTN stable 4. DM2 stable 5. Anemia hgb 7.9 epo/iron on dialysis 6. PNA on iv antibx per primary service. Cx no growth STROKE Vital Signs/Narrative: Vital Signs Temp Pulse Resp BP Pulse Ox 07/22/19 15:55 63 16 07/22/19 14:53 97.8 F 66 16 149/67 H 97
--- NOTE | 2019-07-22 18:17 | PN_ITS ---
Patient Problems: Active and Suspected Problems (Last Reviewed 07/06/19 @ 09:26 by Eze Rivera MD) Sepsis (Acute) HCAP (healthcare-associated pneumonia) (Acute) Reason for Visit: Follow-up on pneumonia Subjective: Patient was seen and examined. Denies any complains. Remains on 2L oxygen. Vitals/I&O's: Vital Signs Temp Pulse Resp BP Pulse Ox 97.8 F 63 16 149/67 H 97 07/22/19 14:53 07/22/19 15:55 07/22/19 15:55 07/22/19 14:53 07/22/19 14:53 Oxygen Flow Rate (L/min) 2 Oxygen Delivery Method Room Air Weight: 120.2 kg Body Mass Index (BMI) 40.9 Finger Stick Blood Glucose 191 Intake and Output for Last 24 Hours 07/20/19 07/21/19 07/22/19 23:59 23:59 23:59 Intake Total 2133.34 / 2133.34 820 / 820 1000 / 1000 Output Total 60706 / 58934 100 / 100 100 / 100 Balance -8066.66 / -8066.66 720 / 720 900 / 900 General: Alert, Oriented x3, Cooperative, No apparent distress, - - on 2L oxygen HEENT: Atraumatic, PERRLA, EOMI, Normocephalic Oral: Moist Mucosa Neck: Supple Lungs: Normal air movement, Diminished - at lung bases Cardiovascular: Regular rate, Regular Rhythm, Normal S1, Normal S2, No murmurs Abdomen: Bowel Sounds Present, Soft, Non Tender, Non-Distended, No Hepato- splenomegaly Extremities: No edema Skin: No rashes, No breakdown Musculoskeletal: No Tenderness to Palpation of Joints or Extremities Lymphatic: No Cervical, Supraclavicular, or Inguinal Adenopathy Neurological: Cranial nerves II-XII grossly intact Psych/Mental Status: Normal Affect, Appropriate Microbiology Past 72 Hours 07/20/19 13:20 Sputum, Expectorated/Coughed Gram Stain - Final 07/20/19 13:20 Sputum, Expectorated/Coughed Respiratory Culture - Final Presumptive C albicans Mixed Farnaz 07/20/19 19:30 Urine, Clean Catch Legionella Antigen - Final 07/20/19 19:30 Urine, Clean Catch Streptococcus pneumoniae Antigen (M - Final 07/19/19 22:50 Mucosa - Nasopharyngeal Respiratory Panel (PCR) - Final 07/19/19 22:50 Mucosa - Nasopharyngeal Influenza Types A,B Direct FA (JAEL) - Final Laboratory Results 07/21/19 22:07: POC Glucose 235 H 07/22/19 06:04: WBC 9.8, RBC 2.73 L, Hgb 7.9 L, Hct 25.4 L, MCV 93.0, MCH 28.9, MCHC 31.1 L, RDW Std Deviation 55.3 H, RDW Coeff of Roberto 16.2 H, Plt Count 240, MPV 9.9 07/22/19 06:04: Sodium 126 L, Potassium 4.9, Chloride 91 L, Carbon Dioxide 27.0, Anion Gap 8, BUN 41 H, Creatinine 5.35 H, Estim Creat Clear Calc 15.44, Est GFR (MDRD) Af Amer 15 L, Est GFR (MDRD) Non-Af 12 L, BUN/Creatinine Ratio 7.7 L, Glucose 166 H, Calcium 8.4 L, Magnesium 1.9 07/22/19 06:28: POC Glucose 162 H 07/22/19 10:52: POC Glucose 289 H Current Medications Acetaminophen (Tylenol) 650 mg PO Q6H PRN PRN PRN Reason: Pain Score 1-3/Temp > 100.7 F Last Admin: 07/20/19 07:30 Dose: 650 mg Documented by: Al Hydroxide/Mg Hydroxide (Mylanta Ii) 30 ml PO Q6H PRN PRN PRN Reason: Gastric Burning Albuterol Sulfate (Ventolin Aerosols) 2.5 mg INHALATION Q2H PRN PRN PRN Reason: Shortness of Breath/Wheezing Albuterol/Ipratropium (Duoneb) 3 ml INHALATION Q4HWA.RT [facility] Last Admin: 07/22/19 15:55 Dose: 3 ml Documented by: Amlodipine Besylate (Norvasc) 10 mg PO DAILY [facility] Last Admin: 07/22/19 09:37 Dose: 10 mg Documented by: Aspirin (Ecotrin) 81 mg PO DAILY [facility] Last Admin: 07/22/19 09:36 Dose: 81 mg Documented by: Atorvastatin Calcium (Lipitor) 20 mg PO QHS [facility] Last Admin: 07/21/19 22:04 Dose: 20 mg Documented by: Cyclobenzaprine HCl (Flexeril) 10 mg PO TID PRN PRN PRN Reason: SPASMS Fluticasone Propionate (Flonase Nasal [place]) 1 spray NASAL DAILY [facility] Last Admin: 07/22/19 09:36 Dose: 1 spray Documented by: Furosemide (Lasix) 40 mg PO BID [facility] Last Admin: 07/22/19 09:36 Dose: 40 mg Documented by: Gabapentin (Neurontin) 300 mg PO BID [facility] Last Admin: 07/22/19 09:37 Dose: 300 mg Documented by: Glucagon () 1 mg IM .X1 PRN PRN Reason: Hypoglycemia Guaifenesin (Robitussin) 20 ml PO Q4H PRN PRN PRN Reason: COUGH Last Admin: 07/22/19 02:15 Dose: 20 ml Documented by: Hydralazine HCl (Apresoline Iv) 10 mg IV Q4H PRN PRN PRN Reason: SBP > 160 Last Admin: 07/20/19 01:39 Dose: 10 mg Documented by: Vancomycin IV Pharmacy to Dose (1 ea/ Sodium Chloride) 500 mls @ 250 mls/hr IV X1 PRN; Protocol PRN Reason: Rx to Dose Dextrose (Dextrose 10%-Water) 250 mls @ 999 mls/hr IV .Q16M PRN; Protocol PRN Reason: HYPOGLYCEMIA Piperacillin Sod/Tazobactam (Sod 3.375 gm/ Sodium Chloride) 50 mls @ 12.5 mls/hr IV Q12 [facility] Last Infusion: 07/22/19 13:38 Dose: Infused Documented by: Sodium Chloride () 250 mls @ 15 mls/hr IV .[id number] PRN PRN Reason: Saline Flush Sodium Chloride () 250 mls @ 15 mls/hr IV .[id number] PRN PRN Reason: Additional IVPB Infusion Insulin Human Lispro (Humalog Kwikpen (Bkc)) 0 unit SC ACHS [facility]; Protocol Last Admin: 07/22/19 16:31 Dose: 6 u Documented by: Isosorbide Mononitrate (Imdur) 30 mg PO DAILY [facility] Last Admin: 07/22/19 09:36 Dose: 30 mg Documented by: Metoprolol Tartrate (Lopressor (Beta Emmanuel)) 50 mg PO BID [facility] Last Admin: 07/22/19 09:35 Dose: 50 mg Documented by: Morphine Sulfate () 4 mg IV Q3H PRN PRN PRN Reason: Pain Score 6-10/10 Nitroglycerin (Nitrostat) 0.4 mg SUBLINGUAL Q5M PRN PRN Reason: CARDIAC/CHEST PAIN Ondansetron HCl (Zofran) 4 mg IV Q8H PRN PRN PRN Reason: NAUSEA/VOMITING Last Admin: 07/20/19 08:07 Dose: 4 mg Documented by: Oxycodone HCl (Oxyir) 10 mg PO Q4H PRN PRN PRN Reason: Pain Score 4-5/10 Last Admin: 07/20/19 18:38 Dose: 10 mg Documented by: Pantoprazole Sodium (Protonix) 40 mg PO DAILY [facility] Last Admin: 07/22/19 09:37 Dose: 40 mg Documented by: Prochlorperazine Edisylate (Compazine Iv) 5 mg IV Q4H PRN PRN PRN Reason: Breakthrough nausea/vomiting Sevelamer Carbonate (Renvela) 2,400 mg PO TID [facility] Last Admin: 07/22/19 12:53 Dose: 2,400 mg Documented by: Sodium Chloride () 10 - 40 ml IV UD PRN PRN Reason: SALINE FLUSH Last Admin: 07/20/19 22:21 Dose: 10 ml Documented by: Throat Lozenges (Cepacol Sore Throat Lozenge) 1 lozenge MUCOUS MEM Q2H PRN PRN PRN Reason: Sore throat or cough Last Admin: 07/22/19 02:19 Dose: 1 lozenge Documented by: Trazodone HCl (Desyrel) 50 mg PO QHS [facility] Last Admin: 07/21/19 22:04 Dose: 50 mg Documented by: Vancomycin HCl () 1 lab MISCELL. DAILY@0600 [facility] Last Admin: 07/22/19 05:21 Dose: Not Given Documented by: Vancomycin HCl (Vancomycin Renal/Hd Dosing) 1 unit MISCELL. DAILY@0800 [facility] Last Admin: 07/22/19 08:02 Dose: Not Given Documented by: STROKE Vital Signs/Narrative: Vital Signs Temp Pulse Resp BP Pulse Ox 07/22/19 15:55 63 16 07/22/19 14:53 97.8 F 66 16 149/67 H 97 Medical Necessity - Tobacco Use Smoking Status: Never smoker Tobacco Use: Non-smoker Assessment/Plan All Active Problems (Last Reviewed 07/06/19 @ 09:26 by Eze Rivera MD) Community acquired pneumonia (Acute) Sepsis (Acute) HCAP (healthcare-associated pneumonia) (Acute) 1. Pneumonia, blood cultures are pending, resp panel is negative, urine streptococcal and legionella antigen negative Stable vitals, on Vancomycin and Zosyn. 2. Acute on chronic hypoxic respiratory failure, on 2L oxygen, continue with breathing treatments Will encourage use of IS 3. End-stage renal disease, on HD, , nephrology following 4. Obstructive sleep apnea, on Bipap 5. Chronic heart failure with preserved ejection fraction, EF 60%, no signs of acute exacerbation 6. Essential hypertension, controlled, continue on home meds 7. Dyslipidemia, on statin 8. Morbid obesity with BMI of 41.0, lifestyle modifications advised 9. Diabetes mellitus type 2, complicated by diabetic nephropathy, will continue on home insulin with ISS with blood glucose checks 10. Anemia secondary to anemia of ESRD, stable 11. DVT prophylaxis - Heparin SC Code Visit Inpatient E&M: 53979 Subs Hosp L2
[2019-07-22] MEDS: oxyCODONE 5 MG Tablet 10 MG PO (19:24)
[2019-07-22] MEDS: traZODone 50 MG Tablet PO (21:45)
[2019-07-22] MEDS: Atorvastatin Calcium 20 MG Tablet PO (21:45)
[2019-07-22 22:00] LABS: Bedside Glucose 271 mg/dL (70-110)
[2019-07-22 22:56] LABS: Bedside Glucose 234 mg/dL (70-110)
[2019-07-23] VITALS (11 sets, daily range): BP systolic 131–153; BP diastolic 64–83; PULSE 63–89; RESP 12–20; TEMP 36.4–36.9; O2SAT 94–100
[2019-07-23] MEDS: SEVELAMER CARBONATE 800 MG TABLET 2400 MG PO ×3 (06:31→21:08)
[2019-07-23 06:34] LABS: Vancomycin, Random Level 21.5 ug/mL (0.0-15.0)
[2019-07-23] MEDS: Insulin Lispro 100 UNIT/ML INSULN.PEN SC ×3 (06:34→21:09)
[2019-07-23] MEDS: Ipratropium/Albuterol Sulfate 3 ML AMPUL.NEB INHALATION ×3 (06:47→19:58)
[2019-07-23 06:51] LABS: Bedside Glucose 217 mg/dL (70-110)
[2019-07-23 06:58] LABS: Anion Gap 10 (5-15); BUN 53 mg/dL (7-18); BUN/Creat Ratio 8.4 RATIO (10-20); Chloride 89 mmol/L (98-107); EST Glomerular Filtration Rate 10 mL/min (>60); Est Glom Filt Rate - Afr Amer 12 mL/min (>60); Estimated Creatinine Clearance 13.12 ml/min; Glucose 190 mg/dL (74-106); Potassium 5.4 mmol/L (3.5-5.1); Sodium Level 125 mmol/L (136-145)
[2019-07-23] MEDS: Pantoprazole Sodium 40 MG Tablet PO (07:43)
[2019-07-23] MEDS: Gabapentin 300 MG Capsule PO ×2 (07:43→21:08)
[2019-07-23] MEDS: Furosemide 40 MG Tablet PO ×2 (07:43→21:09)
[2019-07-23] MEDS: Aspirin E.C. 81 MG Tablet PO (07:43)
[2019-07-23] MEDS: Isosorbide Mononitrate 30 MG Tablet PO (07:43)
[2019-07-23] MEDS: Fluticasone 0.05% 1 SPRAY NASAL.SRY NASAL (07:43)
[2019-07-23] MEDS: oxyCODONE 5 MG Tablet 10 MG PO ×3 (07:49→21:07)
[2019-07-23 08:08] LABS: Basophil# 0.07 X10^3/uL; Basophil% 0.9 % (0-1); Eosinophil# 0.55 X10^3/uL; Eosinophils% 6.8 % (0-5); Hematocrit 27.1 % (40-54); Hemoglobin 8.3 g/dL (13.0-16.5); Lymphocyte % 11.1 % (19-41); Mean Corp Hgb Conc 30.6 g/dL (32-36); Mean Corpuscular Hgb 28.1 pg (27.0-32.0); Mean Corpuscular Volume 91.9 fL (80-94); Mean Platelet Vol. 9.8 fl (6.2-12.0); Monocyte# 0.52 X10^3/uL; Monocyte% 6.4 % (0-10); NRBC Flagged by Analyzer 0 % (0-5); Neutrophil # 6.01 X10^3/uL (2.7-7.7); Neutrophil % 74.2 % (47-70); Platelet Count 225 K/mm3 (150-450); RBC Distribution Width CV 16.3 % (11.6-14.6); RBC Distribution Width SD 54.6 fl (35.1-43.9); Red Blood Count 2.95 M/mm3 (4.6-6.2); White Blood Count 8.1 K/mm3 (4.4-11.0)
--- NOTE | 2019-07-23 12:15 | PCM.PN.REN ---
Patient Problems: Active and Suspected Problems (Last Reviewed 07/06/19 @ 09:26 by Eze Rivera MD) Sepsis (Acute) HCAP (healthcare-associated pneumonia) (Acute) Subjective: seen on dialysis, complains of dry mouth. BP stable. Attempt at 5-6L fluid removal for hyponatremia, 8kg over EDW. Clinically stable, NAD - Physical Exam Vitals/I&O's: Vital Signs Temp Pulse Resp BP Pulse Ox 97.6 F L 66 16 152/66 H 98 07/23/19 08:30 07/23/19 08:30 07/23/19 08:30 07/23/19 08:30 07/23/19 08:30 Oxygen Flow Rate (L/min) 3 Oxygen Delivery Method Room Air Weight: 120.2 kg Body Mass Index (BMI) 40.9 Finger Stick Blood Glucose 191 Intake and Output for Last 24 Hours 07/21/19 07/22/19 07/23/19 23:59 23:59 23:59 Intake Total 820 / 820 1000 / 1460 1310 / 1310 Output Total 100 / 100 100 / 100 Balance 720 / 720 900 / 1360 1310 / 1310 General: Alert, Oriented x3, Cooperative Lungs: Clear to auscultation Abdomen: Obese Extremities: Edema Psych/Mental Status: Alert and oriented to time, place, person, mood and affect Microbiology Past 72 Hours 07/20/19 13:20 Sputum, Expectorated/Coughed Gram Stain - Final 07/20/19 13:20 Sputum, Expectorated/Coughed Respiratory Culture - Final Presumptive C albicans Mixed Farnaz 07/20/19 19:30 Urine, Clean Catch Legionella Antigen - Final 07/20/19 19:30 Urine, Clean Catch Streptococcus pneumoniae Antigen (M - Final 07/19/19 22:50 Mucosa - Nasopharyngeal Respiratory Panel (PCR) - Final Laboratory Results 07/22/19 16:28: POC Glucose 271 H 07/22/19 21:40: POC Glucose 234 H 07/23/19 05:44: Sodium 125 L, Potassium 5.4 H, Chloride 89 L, Carbon Dioxide 26.0, Anion Gap 10, BUN 53 H, Creatinine 6.30 H, Estim Creat Clear Calc 13.12, Est GFR (MDRD) Af Amer 12 L, Est GFR (MDRD) Non-Af 10 L, BUN/Creatinine Ratio 8.4 L, Glucose 190 H, Calcium 8.0 L 07/23/19 05:44: Random Vancomycin 21.5 H 07/23/19 05:44: WBC 8.1, RBC 2.95 L, Hgb 8.3 L, Hct 27.1 L, MCV 91.9, MCH 28.1, MCHC 30.6 L, RDW Std Deviation 54.6 H, RDW Coeff of Roberto 16.3 H, Plt Count 225, MPV 9.8, Immature Gran % (Auto) 0.600, Neut % (Auto) 74.2 H, Lymph % (Auto) 11.1 L, [place] % (Auto) 6.4, Eos % (Auto) 6.8 H, Baso % (Auto) 0.9, Absolute Neuts (auto) 6.0, Absolute Lymphs (auto) 0.90, Nucleated RBC % 0 07/23/19 06:32: POC Glucose 217 H Current Medications Acetaminophen (Tylenol) 650 mg PO Q6H PRN PRN PRN Reason: Pain Score 1-3/Temp > 100.7 F Last Admin: 07/20/19 07:30 Dose: 650 mg Documented by: Al Hydroxide/Mg Hydroxide (Mylanta Ii) 30 ml PO Q6H PRN PRN PRN Reason: Gastric Burning Albuterol Sulfate (Ventolin Aerosols) 2.5 mg INHALATION Q2H PRN PRN PRN Reason: Shortness of Breath/Wheezing Albuterol/Ipratropium (Duoneb) 3 ml INHALATION Q4HWA.RT [facility] Last Admin: 07/23/19 11:50 Dose: Not Given Documented by: Amlodipine Besylate (Norvasc) 10 mg PO DAILY [facility] Last Admin: 07/22/19 09:37 Dose: 10 mg Documented by: Aspirin (Ecotrin) 81 mg PO DAILY [facility] Last Admin: 07/23/19 07:43 Dose: 81 mg Documented by: Atorvastatin Calcium (Lipitor) 20 mg PO QHS [facility] Last Admin: 07/22/19 21:45 Dose: 20 mg Documented by: Collagenase (Santyl) 1 applic TOPICAL DAILY [facility]; Protocol Cyclobenzaprine HCl (Flexeril) 10 mg PO TID PRN PRN PRN Reason: SPASMS Fluticasone Propionate (Flonase Nasal [place]) 1 spray NASAL DAILY [facility] Last Admin: 07/23/19 07:43 Dose: 1 spray Documented by: Furosemide (Lasix) 40 mg PO BID [facility] Last Admin: 07/23/19 07:43 Dose: 40 mg Documented by: Gabapentin (Neurontin) 300 mg PO BID [facility] Last Admin: 07/23/19 07:43 Dose: 300 mg Documented by: Glucagon () 1 mg IM .X1 PRN PRN Reason: Hypoglycemia Guaifenesin (Robitussin) 20 ml PO Q4H PRN PRN PRN Reason: COUGH Last Admin: 07/22/19 23:59 Dose: 20 ml Documented by: Hydralazine HCl (Apresoline Iv) 10 mg IV Q4H PRN PRN PRN Reason: SBP > 160 Last Admin: 07/20/19 01:39 Dose: 10 mg Documented by: Vancomycin IV Pharmacy to Dose (1 ea/ Sodium Chloride) 500 mls @ 250 mls/hr IV X1 PRN; Protocol PRN Reason: Rx to Dose Dextrose (Dextrose 10%-Water) 250 mls @ 999 mls/hr IV .Q16M PRN; Protocol PRN Reason: HYPOGLYCEMIA Piperacillin Sod/Tazobactam (Sod 3.375 gm/ Sodium Chloride) 50 mls @ 12.5 mls/hr IV Q12 [facility] Last Infusion: 07/23/19 02:54 Dose: Infused Documented by: Sodium Chloride () 250 mls @ 15 mls/hr IV .[id number] PRN PRN Reason: Saline Flush Sodium Chloride () 250 mls @ 15 mls/hr IV .[id number] PRN PRN Reason: Additional IVPB Infusion Insulin Human Lispro (Humalog Kwikpen (Bkc)) 0 unit SC ACHS [facility]; Protocol Last Admin: 07/23/19 06:34 Dose: 4 u Documented by: Isosorbide Mononitrate (Imdur) 30 mg PO DAILY [facility] Last Admin: 07/23/19 07:43 Dose: 30 mg Documented by: Metoprolol Tartrate (Lopressor (Beta Emmanuel)) 50 mg PO BID [facility] Last Admin: 07/22/19 21:45 Dose: 50 mg Documented by: Morphine Sulfate () 4 mg IV Q3H PRN PRN PRN Reason: Pain Score 6-10/10 Nitroglycerin (Nitrostat) 0.4 mg SUBLINGUAL Q5M PRN PRN Reason: CARDIAC/CHEST PAIN Ondansetron HCl (Zofran) 4 mg IV Q8H PRN PRN PRN Reason: NAUSEA/VOMITING Last Admin: 07/20/19 08:07 Dose: 4 mg Documented by: Oxycodone HCl (Oxyir) 10 mg PO Q4H PRN PRN PRN Reason: Pain Score 4-5/10 Last Admin: 07/23/19 07:49 Dose: 10 mg Documented by: Pantoprazole Sodium (Protonix) 40 mg PO DAILY [facility] Last Admin: 07/23/19 07:43 Dose: 40 mg Documented by: Prochlorperazine Edisylate (Compazine Iv) 5 mg IV Q4H PRN PRN PRN Reason: Breakthrough nausea/vomiting Sevelamer Carbonate (Renvela) 2,400 mg PO TID [facility] Last Admin: 07/23/19 07:43 Dose: 2,400 mg Documented by: Sodium Chloride () 10 - 40 ml IV UD PRN PRN Reason: SALINE FLUSH Last Admin: 07/20/19 22:21 Dose: 10 ml Documented by: Throat Lozenges (Cepacol Sore Throat Lozenge) 1 lozenge MUCOUS MEM Q2H PRN PRN PRN Reason: Sore throat or cough Last Admin: 07/22/19 23:51 Dose: 1 lozenge Documented by: Trazodone HCl (Desyrel) 50 mg PO QHS [facility] Last Admin: 07/22/19 21:45 Dose: 50 mg Documented by: Vancomycin HCl () 1 lab MISCELL. DAILY@0600 [facility] Last Admin: 07/23/19 06:06 Dose: Not Given Documented by: Vancomycin HCl (Vancomycin Renal/Hd Dosing) 1 unit MISCELL. DAILY@0800 [facility] Last Admin: 07/22/19 08:02 Dose: Not Given Documented by: Medical Necessity - Tobacco Use Smoking Status: Never smoker Tobacco Use: Non-smoker Assessment/Plan All Active Problems (Last Reviewed 07/06/19 @ 09:26 by Eze Rivera MD) Community acquired pneumonia (Acute) Sepsis (Acute) HCAP (healthcare-associated pneumonia) (Acute) 1. ESRD HD today, seen on dialysis attempt 5-6kg fluid removal 2. PNA afebrile 3. Anemia TERESA on HD
--- NOTE | 2019-07-23 14:13 | PN_ITS ---
Patient Problems: Active and Suspected Problems (Last Reviewed 07/06/19 @ 09:26 by Eze Rivera MD) Sepsis (Acute) HCAP (healthcare-associated pneumonia) (Acute) Subjective: Patient did well overnight. Patient has been compliant with BiPAP by fullface interface. Patient's reports that he has a nasal interface at home, but is compliant with therapy. Patient reports subjective improvement in overall condition. Patient was seen on hemodialysis and bedside nurse is reporting anticipated 6.8 L removed. - Physical Exam Vitals/I&O's: Vital Signs Temp Pulse Resp BP Pulse Ox 36.4 C L 66 16 152/66 H 98 07/23/19 08:30 07/23/19 08:30 07/23/19 08:30 07/23/19 08:30 07/23/19 08:30 Oxygen Flow Rate (L/min) 3 Oxygen Delivery Method Nasal Cannula Weight: 120.2 kg Body Mass Index (BMI) 40.9 Finger Stick Blood Glucose 191 Intake and Output for Last 24 Hours 07/21/19 07/22/19 07/23/19 23:59 23:59 23:59 Intake Total 820 / 820 1000 / 1460 1310 / 1310 Output Total 100 / 100 100 / 100 Balance 720 / 720 900 / 1360 1310 / 1310 General: Alert, Oriented x3, Cooperative, No apparent distress, Well developed, Well nourished, - - Morbidly obese. Appears older than stated age. HEENT: Atraumatic, PERRLA, EOMI, Normocephalic, - - No scleral icterus or injection noted Oral: Moist Mucosa, No Gingival or Mucosal Lesions/ Ulcerations Neck: Supple, No JVD, No Nodes, Trachea Midline Lungs: No rhonchi, No wheeze, No rales, Diminished, - - Difficult to auscultate well given hemodialysis Cardiovascular: Regular rate, Regular Rhythm, Normal S1, Normal S2, No murmurs, No rub noted, No Gallop Abdomen: Bowel Sounds Present, Soft, Non Tender, Distended - Slightly, Obese Extremities: No cyanosis, Capillary Refill Less than 3 Seconds, Edema Skin: - - No significant change compared to previous Musculoskeletal: No Tenderness to Palpation of Joints or Extremities Lymphatic: No Cervical, Supraclavicular, or Inguinal Adenopathy Neurological: Cranial nerves II-XII grossly intact, Neuro grossly intact, Motor Exam 5/5 strength throughout Psych/Mental Status: Flat Affect Microbiology Past 72 Hours 07/20/19 13:20 Sputum, Expectorated/Coughed Gram Stain - Final 07/20/19 13:20 Sputum, Expectorated/Coughed Respiratory Culture - Final Presumptive C albicans Mixed Pepper 07/20/19 19:30 Urine, Clean Catch Legionella Antigen - Final 07/20/19 19:30 Urine, Clean Catch Streptococcus pneumoniae Antigen (M - Final 07/19/19 22:50 Mucosa - Nasopharyngeal Respiratory Panel (PCR) - Final Laboratory Results 07/22/19 16:28: POC Glucose 271 H 07/22/19 21:40: POC Glucose 234 H 07/23/19 05:44: Sodium 125 L, Potassium 5.4 H, Chloride 89 L, Carbon Dioxide 26.0, Anion Gap 10, BUN 53 H, Creatinine 6.30 H, Estim Creat Clear Calc 13.12, Est GFR (MDRD) Af Amer 12 L, Est GFR (MDRD) Non-Af 10 L, BUN/Creatinine Ratio 8.4 L, Glucose 190 H, Calcium 8.0 L 07/23/19 05:44: Random Vancomycin 21.5 H 07/23/19 05:44: WBC 8.1, RBC 2.95 L, Hgb 8.3 L, Hct 27.1 L, MCV 91.9, MCH 28.1, MCHC 30.6 L, RDW Std Deviation 54.6 H, RDW Coeff of Roberto 16.3 H, Plt Count 225, MPV 9.8, Immature Gran % (Auto) 0.600, Neut % (Auto) 74.2 H, Lymph % (Auto) 11.1 L, [place] % (Auto) 6.4, Eos % (Auto) 6.8 H, Baso % (Auto) 0.9, Absolute Neuts (auto) 6.0, Absolute Lymphs (auto) 0.90, Nucleated RBC % 0 07/23/19 06:32: POC Glucose 217 H Current Medications Acetaminophen (Tylenol) 650 mg PO Q6H PRN PRN PRN Reason: Pain Score 1-3/Temp > 100.7 F Last Admin: 07/20/19 07:30 Dose: 650 mg Documented by: Al Hydroxide/Mg Hydroxide (Mylanta Ii) 30 ml PO Q6H PRN PRN PRN Reason: Gastric Burning Albuterol Sulfate (Ventolin Aerosols) 2.5 mg INHALATION Q2H PRN PRN PRN Reason: Shortness of Breath/Wheezing Albuterol/Ipratropium (Duoneb) 3 ml INHALATION Q4HWA.RT [facility] Last Admin: 07/23/19 11:50 Dose: Not Given Documented by: Amlodipine Besylate (Norvasc) 10 mg PO DAILY [facility] Last Admin: 07/22/19 09:37 Dose: 10 mg Documented by: Aspirin (Ecotrin) 81 mg PO DAILY [facility] Last Admin: 07/23/19 07:43 Dose: 81 mg Documented by: Atorvastatin Calcium (Lipitor) 20 mg PO QHS [facility] Last Admin: 07/22/19 21:45 Dose: 20 mg Documented by: Collagenase (Santyl) 1 applic TOPICAL DAILY [facility]; Protocol Cyclobenzaprine HCl (Flexeril) 10 mg PO TID PRN PRN PRN Reason: SPASMS Fluticasone Propionate (Flonase Nasal [place]) 1 spray NASAL DAILY [facility] Last Admin: 07/23/19 07:43 Dose: 1 spray Documented by: Furosemide (Lasix) 40 mg PO BID [facility] Last Admin: 07/23/19 07:43 Dose: 40 mg Documented by: Gabapentin (Neurontin) 300 mg PO BID [facility] Last Admin: 07/23/19 07:43 Dose: 300 mg Documented by: Glucagon () 1 mg IM .X1 PRN PRN Reason: Hypoglycemia Guaifenesin (Robitussin) 20 ml PO Q4H PRN PRN PRN Reason: COUGH Last Admin: 07/22/19 23:59 Dose: 20 ml Documented by: Hydralazine HCl (Apresoline Iv) 10 mg IV Q4H PRN PRN PRN Reason: SBP > 160 Last Admin: 07/20/19 01:39 Dose: 10 mg Documented by: Vancomycin IV Pharmacy to Dose (1 ea/ Sodium Chloride) 500 mls @ 250 mls/hr IV X1 PRN; Protocol PRN Reason: Rx to Dose Dextrose (Dextrose 10%-Water) 250 mls @ 999 mls/hr IV .Q16M PRN; Protocol PRN Reason: HYPOGLYCEMIA Piperacillin Sod/Tazobactam (Sod 3.375 gm/ Sodium Chloride) 50 mls @ 12.5 mls/hr IV Q12 [facility] Last Infusion: 07/23/19 02:54 Dose: Infused Documented by: Sodium Chloride () 250 mls @ 15 mls/hr IV .[id number] PRN PRN Reason: Saline Flush Sodium Chloride () 250 mls @ 15 mls/hr IV .[id number] PRN PRN Reason: Additional IVPB Infusion Insulin Human Lispro (Humalog Kwikpen (Bkc)) 0 unit SC ACHS [facility]; Protocol Last Admin: 07/23/19 06:34 Dose: 4 u Documented by: Isosorbide Mononitrate (Imdur) 30 mg PO DAILY [facility] Last Admin: 07/23/19 07:43 Dose: 30 mg Documented by: Metoprolol Tartrate (Lopressor (Beta Emmanuel)) 50 mg PO BID [facility] Last Admin: 07/22/19 21:45 Dose: 50 mg Documented by: Morphine Sulfate () 4 mg IV Q3H PRN PRN PRN Reason: Pain Score 6-10/10 Nitroglycerin (Nitrostat) 0.4 mg SUBLINGUAL Q5M PRN PRN Reason: CARDIAC/CHEST PAIN Ondansetron HCl (Zofran) 4 mg IV Q8H PRN PRN PRN Reason: NAUSEA/VOMITING Last Admin: 07/20/19 08:07 Dose: 4 mg Documented by: Oxycodone HCl (Oxyir) 10 mg PO Q4H PRN PRN PRN Reason: Pain Score 4-5/10 Last Admin: 07/23/19 07:49 Dose: 10 mg Documented by: Pantoprazole Sodium (Protonix) 40 mg PO DAILY [facility] Last Admin: 07/23/19 07:43 Dose: 40 mg Documented by: Prochlorperazine Edisylate (Compazine Iv) 5 mg IV Q4H PRN PRN PRN Reason: Breakthrough nausea/vomiting Sevelamer Carbonate (Renvela) 2,400 mg PO TID [facility] Last Admin: 07/23/19 07:43 Dose: 2,400 mg Documented by: Sodium Chloride () 10 - 40 ml IV UD PRN PRN Reason: SALINE FLUSH Last Admin: 07/20/19 22:21 Dose: 10 ml Documented by: Throat Lozenges (Cepacol Sore Throat Lozenge) 1 lozenge MUCOUS MEM Q2H PRN PRN PRN Reason: Sore throat or cough Last Admin: 07/22/19 23:51 Dose: 1 lozenge Documented by: Trazodone HCl (Desyrel) 50 mg PO QHS [facility] Last Admin: 07/22/19 21:45 Dose: 50 mg Documented by: Vancomycin HCl () 1 lab MISCELL. DAILY@0600 [facility] Last Admin: 07/23/19 06:06 Dose: Not Given Documented by: Vancomycin HCl (Vancomycin Renal/Hd Dosing) 1 unit MISCELL. DAILY@0800 [facility] Last Admin: 07/22/19 08:02 Dose: Not Given Documented by: Medical Necessity - Tobacco Use Smoking Status: Never smoker Tobacco Use: Non-smoker Assessment/Plan All Active Problems (Last Reviewed 07/06/19 @ 09:26 by Eze Rivera MD) Community acquired pneumonia (Acute) Sepsis (Acute) HCAP (healthcare-associated pneumonia) (Acute) RECOMMENDATIONS: 1. Continue empiric antimicrobials until blood cultures resulted as negative 2. Wean supplemental oxygen to maintain saturations at or above 90%. 3. Continue BiPAP therapy with a pressure support of 18/12 centimeters of water with naps and nightly. 4. Encourage incentive spirometer use and mobilize patient as tolerated. 5. Outpatient pulmonary follow-up is once again recommended upon discharge from the hospital. IMPRESSIONS: 1. Shortness of breath/chronic hypoxemic respiratory failure Patient was able to tolerate BiPAP overnight. Patient has been on minimal nasal cannula oxygen during the day. Patient appears to be improving with volume removal with hemodialysis. Do not believe the Brigida albicans and mixed pepper in sputum represent active infection. Once blood cultures are negative, discontinuation of antibiotics may be appropriate. 2. End-stage renal disease on hemodialysis Nephrology following to assist with hemodialysis needs. 3. Obstructive sleep apnea Previous sleep study from May 2017 revealed the need for nocturnal BiPAP therapy with a pressure support of 18/12 centimeters of water. This will be continued while the patient is admitted to the hospital. Patient may benefit to transition to full facemask as an outpatient. 4. History of heart failure with preserved ejection fraction/peripheral vascular disease Continue baseline cardiac medications. 5. Hypertension/hyperlipidemia/obesity/diabetes mellitus/chronic lower extremity wounds/GERD/history of medical noncompliance and follow-up Complicates care, management, recovery and prognosis. Continue home medications as indicated. Code Visit Inpatient E&M: 65741 Subs Hosp L2
[2019-07-23 14:30] LABS: Bedside Glucose 139 mg/dL (70-110)
--- NOTE | 2019-07-23 14:57 | CASEMGMT ---
AMIRAH BAUER Chart review: Patient was admitted to PCU 07/05/19-07/12/19 for pneumonia. Patient was discharged to [facility] on 07/12/19. Per patient and patient left 07/18/19 from [facility] because he felt that he didn't need to go there. Patient was setup from [facility] with [facility] with [facility] for nursing and therapy. Patient returned to [facility] on 07/19/19 for SOB, fever, chills, sepsis. Patient is unsure of disposition plan for at discharge. Discussed therapy with patient, patient did bed exercises with therapy previously. AMIRAH BAUER encouraged patient to work with therapy after completing HD to see if he is able to ambulate safely. Patient states he sees Dr. Slaughter for pulmonology but has not seen him recently. RN CM encourage patient to follow-up with Dr. Slaughter after discharge. Patient states he has been wear bipap at home. AMIRAH BAUER will continue to follow this patient and plan for a safe discharge.
--- NOTE | 2019-07-23 15:00 | DIALYSIS ---
HD [id number] completed at 1415 on a 2K bath, tolerated well, UF 6000mL, CritLine ended profile B, accessed via NERI AVF using 15G needles, worked well, needles pulled post tx and stasis achieved without issue, Retacrit 10,000units given with dialysis, Heparin bolus at start of tx
[2019-07-23] MEDS: amLODIPine 10 MG Tablet PO (15:14)
[2019-07-23] MEDS: Metoprolol Tartrate 50 MG Tablet PO ×2 (15:14→21:09)
[2019-07-23] MEDS: Collagenase 30gm Tube 1 APPLIC TOPICAL (15:15)
--- NOTE | 2019-07-23 15:23 | PN_ITS ---
Patient Problems: Active and Suspected Problems (Last Reviewed 07/06/19 @ 09:26 by Eze Rivera MD) Sepsis (Acute) HCAP (healthcare-associated pneumonia) (Acute) Reason for Visit: Follow-up on pneumonia Subjective: Patient was seen and examined. Denies any complains. No fever or chills. Patient wants his diet changed to regular diet. I explained the need for a renal diet. He is on 2L oxygen. Seen on dialysis. Objective: Physical exam: General: Alert, Oriented x3, Cooperative, No apparent distress, - - on 2L oxygen HEENT: Atraumatic, PERRLA, EOMI, Normocephalic Oral: Moist Mucosa Neck: Supple Lungs: Normal air movement, Diminished - at lung bases Cardiovascular: Regular rate, Regular Rhythm, Normal S1, Normal S2, No murmurs Abdomen: Bowel Sounds Present, Soft, Non Tender, Non-Distended, No Hepato- splenomegaly Extremities: No edema Skin: No rashes, No breakdown Musculoskeletal: No Tenderness to Palpation of Joints or Extremities Lymphatic: No Cervical, Supraclavicular, or Inguinal Adenopathy Neurological: Cranial nerves II-XII grossly intact Psych/Mental Status: Normal Affect, Appropriate Vitals/I&O's: Vital Signs Temp Pulse Resp BP Pulse Ox 97.5 F L 65 16 135/66 H 98 07/23/19 14:20 07/23/19 15:14 07/23/19 14:20 07/23/19 14:20 07/23/19 08:30 Oxygen Flow Rate (L/min) 3 Oxygen Delivery Method Nasal Cannula Weight: 120.2 kg Body Mass Index (BMI) 40.9 Finger Stick Blood Glucose 191 Intake and Output for Last 24 Hours 07/21/19 07/22/19 07/23/19 23:59 23:59 23:59 Intake Total 820 / 820 1000 / 1460 1310 / 1310 Output Total 100 / 100 100 / 100 6000 / 6000 Balance 720 / 720 900 / 1360 -4690 / -4690 Microbiology Past 72 Hours 07/20/19 13:20 Sputum, Expectorated/Coughed Gram Stain - Final 07/20/19 13:20 Sputum, Expectorated/Coughed Respiratory Culture - Final Presumptive C albicans Mixed Farnaz 07/20/19 19:30 Urine, Clean Catch Legionella Antigen - Final 07/20/19 19:30 Urine, Clean Catch Streptococcus pneumoniae Antigen (M - Final 07/19/19 22:50 Mucosa - Nasopharyngeal Respiratory Panel (PCR) - Final Laboratory Results 07/22/19 16:28: POC Glucose 271 H 07/22/19 21:40: POC Glucose 234 H 07/23/19 05:44: Sodium 125 L, Potassium 5.4 H, Chloride 89 L, Carbon Dioxide 26.0, Anion Gap 10, BUN 53 H, Creatinine 6.30 H, Estim Creat Clear Calc 13.12, Est GFR (MDRD) Af Amer 12 L, Est GFR (MDRD) Non-Af 10 L, BUN/Creatinine Ratio 8.4 L, Glucose 190 H, Calcium 8.0 L 07/23/19 05:44: Random Vancomycin 21.5 H 07/23/19 05:44: WBC 8.1, RBC 2.95 L, Hgb 8.3 L, Hct 27.1 L, MCV 91.9, MCH 28.1, MCHC 30.6 L, RDW Std Deviation 54.6 H, RDW Coeff of Roberto 16.3 H, Plt Count 225, MPV 9.8, Immature Gran % (Auto) 0.600, Neut % (Auto) 74.2 H, Lymph % (Auto) 11.1 L, Barton % (Auto) 6.4, Eos % (Auto) 6.8 H, Baso % (Auto) 0.9, Absolute Neuts (auto) 6.0, Absolute Lymphs (auto) 0.90, Nucleated RBC % 0 07/23/19 06:32: POC Glucose 217 H 07/23/19 14:27: POC Glucose 139 H Current Medications Acetaminophen (Tylenol) 650 mg PO Q6H PRN PRN PRN Reason: Pain Score 1-3/Temp > 100.7 F Last Admin: 07/20/19 07:30 Dose: 650 mg Documented by: Al Hydroxide/Mg Hydroxide (Mylanta Ii) 30 ml PO Q6H PRN PRN PRN Reason: Gastric Burning Albuterol Sulfate (Ventolin Aerosols) 2.5 mg INHALATION Q2H PRN PRN PRN Reason: Shortness of Breath/Wheezing Albuterol/Ipratropium (Duoneb) 3 ml INHALATION Q4HWA.RT RENE Last Admin: 07/23/19 11:50 Dose: Not Given Documented by: Amlodipine Besylate (Norvasc) 10 mg PO DAILY [facility] Last Admin: 07/23/19 15:14 Dose: 10 mg Documented by: Aspirin (Ecotrin) 81 mg PO DAILY [facility] Last Admin: 07/23/19 07:43 Dose: 81 mg Documented by: Atorvastatin Calcium (Lipitor) 20 mg PO QHS [facility] Last Admin: 07/22/19 21:45 Dose: 20 mg Documented by: Collagenase (Santyl) 1 applic TOPICAL DAILY [facility]; Protocol Last Admin: 07/23/19 15:15 Dose: 1 applicatio Documented by: Cyclobenzaprine HCl (Flexeril) 10 mg PO TID PRN PRN PRN Reason: SPASMS Fluticasone Propionate (Flonase Nasal [place]) 1 spray NASAL DAILY [facility] Last Admin: 07/23/19 07:43 Dose: 1 spray Documented by: Furosemide (Lasix) 40 mg PO BID [facility] Last Admin: 07/23/19 07:43 Dose: 40 mg Documented by: Gabapentin (Neurontin) 300 mg PO BID [facility] Last Admin: 07/23/19 07:43 Dose: 300 mg Documented by: Glucagon () 1 mg IM .X1 PRN PRN Reason: Hypoglycemia Guaifenesin (Robitussin) 20 ml PO Q4H PRN PRN PRN Reason: COUGH Last Admin: 07/22/19 23:59 Dose: 20 ml Documented by: Hydralazine HCl (Apresoline Iv) 10 mg IV Q4H PRN PRN PRN Reason: SBP > 160 Last Admin: 07/20/19 01:39 Dose: 10 mg Documented by: Vancomycin IV Pharmacy to Dose (1 ea/ Sodium Chloride) 500 mls @ 250 mls/hr IV X1 PRN; Protocol PRN Reason: Rx to Dose Dextrose (Dextrose 10%-Water) 250 mls @ 999 mls/hr IV .Q16M PRN; Protocol PRN Reason: HYPOGLYCEMIA Piperacillin Sod/Tazobactam (Sod 3.375 gm/ Sodium Chloride) 50 mls @ 12.5 mls/hr IV Q12 [facility] Last Infusion: 07/23/19 02:54 Dose: Infused Documented by: Sodium Chloride () 250 mls @ 15 mls/hr IV .[id number] PRN PRN Reason: Saline Flush Sodium Chloride () 250 mls @ 15 mls/hr IV .[id number] PRN PRN Reason: Additional IVPB Infusion Insulin Human Lispro (Humalog Kwikpen (Bkc)) 0 unit SC [facility]; Protocol Last Admin: 07/23/19 15:05 Dose: Not Given Documented by: Isosorbide Mononitrate (Imdur) 30 mg PO DAILY [facility] Last Admin: 07/23/19 07:43 Dose: 30 mg Documented by: Metoprolol Tartrate (Lopressor (Beta Emmanuel)) 50 mg PO BID [facility] Last Admin: 07/23/19 15:14 Dose: 50 mg Documented by: Morphine Sulfate () 4 mg IV Q3H PRN PRN PRN Reason: Pain Score 6-10/10 Nitroglycerin (Nitrostat) 0.4 mg SUBLINGUAL Q5M PRN PRN Reason: CARDIAC/CHEST PAIN Ondansetron HCl (Zofran) 4 mg IV Q8H PRN PRN PRN Reason: NAUSEA/VOMITING Last Admin: 07/20/19 08:07 Dose: 4 mg Documented by: Oxycodone HCl (Oxyir) 10 mg PO Q4H PRN PRN PRN Reason: Pain Score 4-5/10 Last Admin: 07/23/19 15:20 Dose: 10 mg Documented by: Pantoprazole Sodium (Protonix) 40 mg PO DAILY [facility] Last Admin: 07/23/19 07:43 Dose: 40 mg Documented by: Prochlorperazine Edisylate (Compazine Iv) 5 mg IV Q4H PRN PRN PRN Reason: Breakthrough nausea/vomiting Sevelamer Carbonate (Renvela) 2,400 mg PO TID [facility] Last Admin: 07/23/19 15:13 Dose: 2,400 mg Documented by: Sodium Chloride () 10 - 40 ml IV UD PRN PRN Reason: SALINE FLUSH Last Admin: 07/20/19 22:21 Dose: 10 ml Documented by: Throat Lozenges (Cepacol Sore Throat Lozenge) 1 lozenge MUCOUS MEM Q2H PRN PRN PRN Reason: Sore throat or cough Last Admin: 07/22/19 23:51 Dose: 1 lozenge Documented by: Trazodone HCl (Desyrel) 50 mg PO QHS [facility] Last Admin: 07/22/19 21:45 Dose: 50 mg Documented by: Vancomycin HCl () 1 lab MISCELL. DAILY@0600 [facility] Last Admin: 07/23/19 06:06 Dose: Not Given Documented by: Vancomycin HCl (Vancomycin Renal/Hd Dosing) 1 unit MISCELL. DAILY@0800 [facility] Last Admin: 07/22/19 08:02 Dose: Not Given Documented by: STROKE Vital Signs/Narrative: Vital Signs Temp Pulse Resp BP 07/23/19 15:14 65 07/23/19 14:20 97.5 F L 65 16 135/66 H Medical Necessity - Tobacco Use Smoking Status: Never smoker Tobacco Use: Non-smoker Assessment/Plan All Active Problems (Last Reviewed 07/06/19 @ 09:26 by Eze Rivera MD) Community acquired pneumonia (Acute) Sepsis (Acute) HCAP (healthcare-associated pneumonia) (Acute) 1. Pneumonia, recently in the hospital and treated for pneumonia In this admission, blood cultures are pending, resp panel is negative, urine streptococcal and legionella antigen negative Continue on Vancomycin and Zosyn pending final blood culture results. 2. Acute on chronic hypoxic respiratory failure, on 2L oxygen, continue with breathing treatments Will encourage use of IS 3. End-stage renal disease, on HD, , nephrology following 4. Obstructive sleep apnea, on Bipap 5. Chronic heart failure with preserved ejection fraction, EF 60%, no signs of acute exacerbation 6. Essential hypertension, controlled, continue on home meds 7. Dyslipidemia, on statin 8. Morbid obesity with BMI of 41.0, lifestyle modifications advised 9. Diabetes mellitus type 2, complicated by diabetic nephropathy, will continue on home insulin with ISS with blood glucose checks 10. Anemia secondary to anemia of ESRD, stable 11. DVT prophylaxis - Heparin SC Code Visit Inpatient E&M: 93834 Subs Hosp L2
[2019-07-23 17:36] LABS: Bedside Glucose 210 mg/dL (70-110)
[2019-07-23] MEDS: traZODone 50 MG Tablet PO (21:07)
[2019-07-23] MEDS: Atorvastatin Calcium 20 MG Tablet PO (21:08)
[2019-07-23] MEDS: BENZOCAINE/MENTHOL 1 LOZENGE MUCOUS MEM (22:16)
[2019-07-23] MEDS: guaiFENesin 10 ML UDC (200MG/10ML) 20 ML PO (22:16)
[2019-07-24] VITALS (8 sets, daily range): BP systolic 95–150; BP diastolic 46–73; PULSE 60–82; RESP 12–19; TEMP 36.6–37; O2SAT 96–99
[2019-07-24 00:10] LABS: Bedside Glucose 248 mg/dL (70-110)
[2019-07-24 01:40] LABS: Bedside Glucose 176 mg/dL (70-110)
[2019-07-24 05:18] LABS: Absolute Lymphocyte Count 0.71 X10^3/uL (0.83-4.51); Absolute Neutrophil Count 6.4 X10^3/uL (2.0-7.7); Basophil# 0.09 X10^3/uL; Basophil% 1.1 % (0-1); Eosinophils% 7.2 % (0-5); Hematocrit 27.9 % (40-54); Hemoglobin 8.4 g/dL (13.0-16.5); Lymphocyte # 0.71 X10^3/ul (4.0); Lymphocyte % 8.5 % (19-41); Mean Corp Hgb Conc 30.1 g/dL (32-36); Mean Corpuscular Hgb 27.5 pg (27.0-32.0); Mean Corpuscular Volume 91.5 fL (80-94); Mean Platelet Vol. 9.2 fl (6.2-12.0); Monocyte# 0.51 X10^3/uL; Monocyte% 6.1 % (0-10); NRBC Flagged by Analyzer 0 % (0-5); Neutrophil # 6.36 X10^3/uL (2.7-7.7); Neutrophil % 76.5 % (47-70); Platelet Count 216 K/mm3 (150-450); RBC Distribution Width CV 16.1 % (11.6-14.6); RBC Distribution Width SD 54.1 fl (35.1-43.9); Red Blood Count 3.05 M/mm3 (4.6-6.2); White Blood Count 8.3 K/mm3 (4.4-11.0)
[2019-07-24] MEDS: oxyCODONE 5 MG Tablet 10 MG PO (05:26)
[2019-07-24] MEDS: SEVELAMER CARBONATE 800 MG TABLET 2400 MG PO ×2 (05:26→13:07)
[2019-07-24] MEDS: Ondansetron 4 MG/2 ML Vial IV (05:29)
[2019-07-24 05:32] LABS: Anion Gap 8 (5-15); BUN 25 mg/dL (7-18); Calcium,Total 8.1 mg/dL (8.5-10.1); Chloride 87 mmol/L (98-107); Creatinine, Serum 4.15 mg/dL (0.70-1.30); EST Glomerular Filtration Rate 16 mL/min (>60); Est Glom Filt Rate - Afr Amer 20 mL/min (>60); Estimated Creatinine Clearance 19.91 ml/min; Glucose 187 mg/dL (74-106); Potassium 4.6 mmol/L (3.5-5.1); Sodium Level 124 mmol/L (136-145)
[2019-07-24] MEDS: Insulin Lispro 100 UNIT/ML INSULN.PEN SC ×2 (06:47→11:22)
[2019-07-24 06:55] LABS: Bedside Glucose 201 mg/dL (70-110)
[2019-07-24] MEDS: Ipratropium/Albuterol Sulfate 3 ML AMPUL.NEB INHALATION ×2 (07:35→11:15)
[2019-07-24] MEDS: Fluticasone 0.05% 1 SPRAY NASAL.SRY NASAL (08:41)
[2019-07-24] MEDS: Pantoprazole Sodium 40 MG Tablet PO (08:42)
[2019-07-24] MEDS: Isosorbide Mononitrate 30 MG Tablet PO (08:42)
[2019-07-24] MEDS: amLODIPine 10 MG Tablet PO (08:42)
[2019-07-24] MEDS: Furosemide 40 MG Tablet PO (08:42)
[2019-07-24] MEDS: Gabapentin 300 MG Capsule PO (08:42)
[2019-07-24] MEDS: Metoprolol Tartrate 50 MG Tablet PO (08:42)
[2019-07-24] MEDS: Aspirin E.C. 81 MG Tablet PO (08:42)
[2019-07-24] MEDS: Collagenase 30gm Tube 1 APPLIC TOPICAL (08:43)
--- NOTE | 2019-07-24 09:25 | PCM.DC ---
- Discharge Diagnoses Current Active Problems: Current Active and Chronic Problems (Last Reviewed 07/06/19 @ 09:26 by Eze Rivera MD) Sepsis (Acute) HCAP (healthcare-associated pneumonia) (Acute) Reason(s) for Visit for Discharge Instructions: Shortness of breath You will use the following diet at home:: Renal (restricted protein/sodium) Your food should be the consistency of: Regular Your liquids should be the consistency of: Regular/Thin Discharge Activity: Return to Normal Activity Additional Instructions: Continue to take all your medications as prescribed. Complete your antibiotics. Follow-up with dialysis as scheduled. Follow-up with your primary care doctor within 2 weeks. Allergies/Adverse Reactions: Allergies venom-honey bee [bee venom (honey bee)] Allergy (Verified 07/19/19 21:58) Swelling sulfamethoxazole [From Bactrim] Adverse Reaction (Verified 07/19/19 21:58) Upset Stomach trimethoprim [From Bactrim] Adverse Reaction (Verified 07/19/19 21:58) Upset Stomach Medications to take at Discharge Atorvastatin Calcium [Lipitor] 20 mg PO QHS 10/11/17 Vits A,C,E/Lutein/Minerals [Ocuvite with Lutein Tablet] 1 ea PO DAILY 10/11/17 Folic Acid/Vitamin B Comp W-C [Nephrocaps, Renaphro] 1 cap PO DAILY 10/27/17 albuterol sulfate 90 mcg/actuation aerosol inhaler 2 puff INHALATION Q4H PRN #18 g 02/26/18 Aspirin E.C. [Ecotrin] 81 mg PO DAILY 03/23/18 Cyclobenzaprine HCl 10 mg PO TID PRN PRN 03/23/18 Fluticasone 0.05% [Flonase Nasal [place]] 1 spray NASAL DAILY 03/23/18 Gabapentin [Neurontin] 300 mg PO BID 03/23/18 isosorbide mononitrate 30 mg tablet,extended release 24 hr 30 mg PO DAILY #30 tab 07/24/18 Acetaminophen [Tylenol Tablet] 650 mg PO Q6H PRN PRN tab 09/19/18 Guaifenesin Dm [Robitussin Dm] 10 ml PO Q6H PRN PRN #1 bottle 11/21/18 Furosemide [Lasix] 40 mg PO BID 03/12/19 Metoprolol Tartrate [Lopressor (beta khoa)] 50 mg PO BID 03/12/19 Omeprazole 40 mg PO DAILY 03/12/19 proMETHazine tablet [Phenergan tablet] 25 mg PO TID PRN 03/13/19 Sevelamer HCl [Renagel] 2,400 mg PO TID #0 03/20/19 Insulin Lispro [Humalog KwikPen] See Protocol SUBCUT ACHS insuln.pen 05/20/19 Insulin Aspart [Novolog Flexpen] 10 units SUBCUT TIDCM 07/05/19 Oxycodone HCl/Acetaminophen [Oxycodone-Acetaminophen 5-325] 1 ea PO Q6H PRN PRN 07/06/19 traZODone [Desyrel] 50 mg PO QHS 07/06/19 Amlodipine [Norvasc] 10 mg PO DAILY #30 tab 07/12/19 Collagenase [Santyl] 1 applic TOPICAL DAILY tube 07/24/19 Primary Care Physician: Augie Washburn MD [Primary Care Provider] - Please follow up with your Primary Care Physician in: within 2 weeks Test Results: Test results from this visit will be discussed in further detail at your follow-up appointment, if applicable. Please Follow Up With: Anca Gregorio DO When: as scheduled in dialysis Proposed Discharge Date: 07/24/19
--- NOTE | 2019-07-24 09:31 | DS.PCM_ITS ---
Discharge Date and Diagnosis - Problem List Patient Problems: Active and Suspected Problems (Last Reviewed 07/06/19 @ 09:26 by Eze Rivera MD) Sepsis (Acute) HCAP (healthcare-associated pneumonia) (Acute) Date of Admission: 07/19/19 - Primary Discharge Diagnosis Active and Suspected Problems (Last Reviewed 07/06/19 @ 09:26 by Eze Rivera MD) Sepsis (Acute) HCAP (healthcare-associated pneumonia) (Acute) - Secondary Discharge Diagnosis Chronic Problems (Last Reviewed 07/06/19 @ 09:26 by Eze Rivera MD) Chronic ulcer of left foot with fat layer exposed (Chronic) Ulcer of right foot with fat layer exposed (Chronic) Chronic ulcer of left foot with fat layer exposed (Chronic) Malnutrition (Chronic) Type 2 diabetes mellitus with diabetic polyneuropathy (Chronic) Tailor's bunion of right foot (Chronic) Bilateral foot wounds (Chronic) Tailor's bunion of left foot (Chronic) Peripheral vascular disease (Chronic) Toe fracture, right (Chronic) Non-pressure chronic ulcer of other part of right foot with fat layer exposed (Chronic) Non-pressure chronic ulcer of other part of left foot with fat layer exposed (Chronic) Type 1 diabetes mellitus (Chronic) Morbid obesity with BMI of 40.0-44.9, adult (Chronic) Noncompliance (Chronic) CHF (congestive heart failure) (Chronic) Abnormal stress test (Chronic) TIA (transient ischemic attack) (Chronic) Pulmonary hypertension (Chronic) Morbid obesity with BMI of 40.0-44.9, adult (Chronic) End stage renal disease on dialysis (Chronic) Chronic respiratory failure with hypoxia (Chronic) HTN (hypertension) (Chronic) Hyperlipidemia (Chronic) Diabetic neuropathy (Chronic) Anemia (Chronic) SELMA (obstructive sleep apnea) (Chronic) Hospital Course and Treatment Imaging Results: Clinical Impression(s) from Imaging Studies Chest X-Ray 07/19/19 22:15 IMPRESSION: Decrease in right perihilar opacity. Chest otherwise appears similar. at 2238 Reported and signed by: Ashli Vazquez MD Electronically Signed: Ashli Vazquez MD at 22:37 EST Tel , Service support , Consultations 07/20/19 00:59 Consult: Onc/Wound/chief operator synthesis Routine Comment: Clinical Impression(s) from Imaging Studies Chest X-Ray 07/19/19 22:15 IMPRESSION: Decrease in right perihilar opacity. Chest otherwise appears similar. at 2238 Reported and signed by: Ashli Vazquez MD Electronically Signed: Ashli Vazquez MD at 22:37 EST Tel , Service support , Operations: None Procedures: None Summary of Care Provided: The patient is a 48 year old M with past medical history of ESRD on hemod ialysis, type II DM, PAD, who comes in with worsening shortness of breath, recurrent fevers and chills as well as cough. Patient was recently discharged from senior living facility. Go home in less than 24 hours of getting home he came back to the hospital with complaints of chest pain. His work-up in the emergency department was negative for influenza or respiratory organisms. His admitting chest x-ray showed a decreasing right perihilar opacity. He was managed as sepsis secondary to pneumonia. His blood cultures were negative, urine streptococcal and legionella antigen were negative. 1. Sepsis unclear etiology, probable likely secondary to recurrent pneumonia. Patient was recently in the hospital and treated for pneumonia. Started on empiric vancomycin and Zosyn. blood cultures were negative, resp panel is negative, urine streptococcal and legionella antigen negative. Sputum cultures showed mixed pepper. He was discharged on 2 more days of augmentin to make a total of 7 days antibiotics. 2. Acute on chronic hypoxic respiratory failure, on 2L oxygen, managed on breathing treatments 3. End-stage renal disease, on HD, 4. Obstructive sleep apnea, on Bipap 5. Chronic heart failure with preserved ejection fraction, EF 60%, no signs of acute exacerbation in this admission 6. Essential hypertension 7. Dyslipidemia 8. Morbid obesity with BMI of 41.0 9. Diabetes mellitus type 2, complicated by diabetic nephropathy 10. Anemia secondary to anemia of ESRD, stable Patient Problems: Active and Suspected Problems (Last Reviewed 07/06/19 @ 09:26 by Eze Rivera MD) Sepsis (Acute) HCAP (healthcare-associated pneumonia) (Acute) Subjective: On the day of discharge, patient was seen and examined. He feels improved. Denies any new complaints. Objective: Physical exam: General: Alert, Oriented x3, Cooperative, No apparent distress, - - on 2L oxygen HEENT: Atraumatic, PERRLA, EOMI, Normocephalic Oral: Moist Mucosa Neck: Supple Lungs: Normal air movement, Diminished - at lung bases Cardiovascular: Regular rate, Regular Rhythm, Normal S1, Normal S2, No murmurs Abdomen: Bowel Sounds Present, Soft, Non Tender, Non-Distended, No Hepato- splenomegaly Extremities: No edema Skin: No rashes, No breakdown Musculoskeletal: No Tenderness to Palpation of Joints or Extremities Lymphatic: No Cervical, Supraclavicular, or Inguinal Adenopathy Neurological: Cranial nerves II-XII grossly intact Psych/Mental Status: Normal Affect, Appropriate - Physical Exam Vitals/I&O's: Vital Signs Temp Pulse Resp BP Pulse Ox 98.0 F 65 18 150/73 H 99 07/24/19 08:39 07/24/19 08:42 07/24/19 08:39 07/24/19 08:39 07/24/19 08:39 Oxygen Flow Rate (L/min) 2 Oxygen Delivery Method Nasal Cannula Weight: 120.6 kg Body Mass Index (BMI) 40.9 Finger Stick Blood Glucose 191 Intake and Output for Last 24 Hours 07/22/19 07/23/19 07/24/19 23:59 23:59 23:59 Intake Total 1000 / 1460 1720 / 2320 1000 / 1000 Output Total 100 / 100 6000 / 6100 100 / 100 Balance 900 / 1360 -4280 / -3780 900 / 900 Microbiology Past 72 Hours 07/19/19 23:32 Blood Culture (Wb) - Anticubital Left Blood Culture - Preliminary No growth in 48 hours. 07/20/19 13:20 Sputum, Expectorated/Coughed Gram Stain - Final 07/20/19 13:20 Sputum, Expectorated/Coughed Respiratory Culture - Final Presumptive C albicans Mixed Pepper Laboratory Results 07/23/19 14:27: POC Glucose 139 H 07/23/19 17:29: POC Glucose 210 H 07/23/19 21:06: POC Glucose 248 H 07/24/19 01:35: POC Glucose 176 H 07/24/19 04:58: Sodium 124 L, Potassium 4.6, Chloride 87 L, Carbon Dioxide 29.0, Anion Gap 8, BUN 25 H, Creatinine 4.15 H, Estim Creat Clear Calc 19.91, Est GFR (MDRD) Af Amer 20 L, Est GFR (MDRD) Non-Af 16 L, BUN/Creatinine Ratio 6.0 L, Glucose 187 H, Calcium 8.1 L 07/24/19 04:58: WBC 8.3, RBC 3.05 L, Hgb 8.4 L, Hct 27.9 L, MCV 91.5, MCH 27.5, MCHC 30.1 L, RDW Std Deviation 54.1 H, RDW Coeff of Roberto 16.1 H, Plt Count 216, MPV 9.2, Immature Gran % (Auto) 0.600, Neut % (Auto) 76.5 H, Lymph % (Auto) 8.5 L, [place] % (Auto) 6.1, Eos % (Auto) 7.2 H, Baso % (Auto) 1.1 H, Absolute Neuts (auto) 6.4, Absolute Lymphs (auto) 0.71 L, Nucleated RBC % 0 07/24/19 06:46: POC Glucose 201 H Current Medications Acetaminophen (Tylenol) 650 mg PO Q6H PRN PRN PRN Reason: Pain Score 1-3/Temp > 100.7 F Last Admin: 07/20/19 07:30 Dose: 650 mg Documented by: Al Hydroxide/Mg Hydroxide (Mylanta Ii) 30 ml PO Q6H PRN PRN PRN Reason: Gastric Burning Albuterol Sulfate (Ventolin Aerosols) 2.5 mg INHALATION Q2H PRN PRN PRN Reason: Shortness of Breath/Wheezing Albuterol/Ipratropium (Duoneb) 3 ml INHALATION Q4HWA.RT COUNT INCLUDES THE [facility] Last Admin: 07/24/19 07:35 Dose: 3 ml Documented by: Amlodipine Besylate (Norvasc) 10 mg PO DAILY COUNT INCLUDES THE [facility] Last Admin: 07/24/19 08:42 Dose: 10 mg Documented by: Aspirin (Ecotrin) 81 mg PO DAILY COUNT INCLUDES THE [facility] Last Admin: 07/24/19 08:42 Dose: 81 mg Documented by: Atorvastatin Calcium (Lipitor) 20 mg PO QHS COUNT INCLUDES THE [facility] Last Admin: 07/23/19 21:08 Dose: 20 mg Documented by: Collagenase (Santyl) 1 applic TOPICAL DAILY COUNT INCLUDES THE [facility]; Protocol Last Admin: 07/24/19 08:43 Dose: 1 applicatio Documented by: Cyclobenzaprine HCl (Flexeril) 10 mg PO TID PRN PRN PRN Reason: SPASMS Fluticasone Propionate (Flonase Nasal Pedro) 1 spray NASAL DAILY COUNT INCLUDES THE [facility] Last Admin: 07/24/19 08:41 Dose: 1 spray Documented by: Furosemide (Lasix) 40 mg PO BID COUNT INCLUDES THE [facility] Last Admin: 07/24/19 08:42 Dose: 40 mg Documented by: Gabapentin (Neurontin) 300 mg PO BID COUNT INCLUDES THE [facility] Last Admin: 07/24/19 08:42 Dose: 300 mg Documented by: Glucagon () 1 mg IM .X1 PRN PRN Reason: Hypoglycemia Guaifenesin (Robitussin) 20 ml PO Q4H PRN PRN PRN Reason: COUGH Last Admin: 07/23/19 22:16 Dose: 20 ml Documented by: Hydralazine HCl (Apresoline Iv) 10 mg IV Q4H PRN PRN PRN Reason: SBP > 160 Last Admin: 07/20/19 01:39 Dose: 10 mg Documented by: Vancomycin IV Pharmacy to Dose (1 ea/ Sodium Chloride) 500 mls @ 250 mls/hr IV X1 PRN; Protocol PRN Reason: Rx to Dose Dextrose (Dextrose 10%-Water) 250 mls @ 999 mls/hr IV .Q16M PRN; Protocol PRN Reason: HYPOGLYCEMIA Piperacillin Sod/Tazobactam (Sod 3.375 gm/ Sodium Chloride) 50 mls @ 12.5 mls/hr IV Q12 COUNT INCLUDES THE [facility] Last Admin: 07/24/19 09:15 Dose: 12.5 mls/hr Documented by: Sodium Chloride () 250 mls @ 15 mls/hr IV .[id number] PRN PRN Reason: Saline Flush Sodium Chloride () 250 mls @ 15 mls/hr IV .[id number] PRN PRN Reason: Additional IVPB Infusion Insulin Human Lispro (Humalog Kwikpen (Bkc)) 0 unit SC ACHS COUNT INCLUDES THE [facility]; Protocol Last Admin: 07/24/19 06:47 Dose: 4 u Documented by: Isosorbide Mononitrate (Imdur) 30 mg PO DAILY COUNT INCLUDES THE [facility] Last Admin: 07/24/19 08:42 Dose: 30 mg Documented by: Metoprolol Tartrate (Lopressor (Beta Emmanuel)) 50 mg PO BID COUNT INCLUDES THE [facility] Last Admin: 07/24/19 08:42 Dose: 50 mg Documented by: Morphine Sulfate () 4 mg IV Q3H PRN PRN PRN Reason: Pain Score 6-10/10 Nitroglycerin (Nitrostat) 0.4 mg SUBLINGUAL Q5M PRN PRN Reason: CARDIAC/CHEST PAIN Ondansetron HCl (Zofran) 4 mg IV Q8H PRN PRN PRN Reason: NAUSEA/VOMITING Last Admin: 07/24/19 05:29 Dose: 4 mg Documented by: Oxycodone HCl (Oxyir) 10 mg PO Q4H PRN PRN PRN Reason: Pain Score 4-5/10 Last Admin: 07/24/19 05:26 Dose: 10 mg Documented by: Pantoprazole Sodium (Protonix) 40 mg PO DAILY COUNT INCLUDES THE [facility] Last Admin: 07/24/19 08:42 Dose: 40 mg Documented by: Prochlorperazine Edisylate (Compazine Iv) 5 mg IV Q4H PRN PRN PRN Reason: Breakthrough nausea/vomiting Sevelamer Carbonate (Renvela) 2,400 mg PO TIDCM COUNT INCLUDES THE [facility] Sodium Chloride () 10 - 40 ml IV UD PRN PRN Reason: SALINE FLUSH Last Admin: 07/20/19 22:21 Dose: 10 ml Documented by: Throat Lozenges (Cepacol Sore Throat Lozenge) 1 lozenge MUCOUS MEM Q2H PRN PRN PRN Reason: Sore throat or cough Last Admin: 07/23/19 22:16 Dose: 1 lozenge Documented by: Trazodone HCl (Desyrel) 50 mg PO QHS COUNT INCLUDES THE [facility] Last Admin: 07/23/19 21:07 Dose: 50 mg Documented by: Discharge Diet: 1800 Calorie Control Diet, Renal Diet Discharge Activity: Return to Normal Activity Home Medications: Medications to take at Discharge Atorvastatin Calcium [Lipitor] 20 mg PO QHS 10/11/17 Vits A,C,E/Lutein/Minerals [Ocuvite with Lutein Tablet] 1 ea PO DAILY 10/11/17 Folic Acid/Vitamin B Comp W-C [Nephrocaps, Renaphro] 1 cap PO DAILY 10/27/17 albuterol sulfate 90 mcg/actuation aerosol inhaler 2 puff INHALATION Q4H PRN #18 g 02/26/18 Aspirin E.C. [Ecotrin] 81 mg PO DAILY 03/23/18 Cyclobenzaprine HCl 10 mg PO TID PRN PRN 03/23/18 Fluticasone 0.05% [Flonase Nasal Pedro] 1 spray NASAL DAILY 03/23/18 Gabapentin [Neurontin] 300 mg PO BID 03/23/18 isosorbide mononitrate 30 mg tablet,extended release 24 hr 30 mg PO DAILY #30 tab 07/24/18 Acetaminophen [Tylenol Tablet] 650 mg PO Q6H PRN PRN tab 09/19/18 Guaifenesin Dm [Robitussin Dm] 10 ml PO Q6H PRN PRN #1 bottle 11/21/18 Furosemide [Lasix] 40 mg PO BID 03/12/19 Metoprolol Tartrate [Lopressor (beta emmanuel)] 50 mg PO BID 03/12/19 Omeprazole 40 mg PO DAILY 03/12/19 proMETHazine tablet [Phenergan tablet] 25 mg PO TID PRN 03/13/19 Sevelamer HCl [Renagel] 2,400 mg PO TID #0 03/20/19 Insulin Lispro [Humalog KwikPen] See Protocol SUBCUT ACHS insuln.pen 05/20/19 Insulin Aspart [Novolog Flexpen] 10 units SUBCUT TIDCM 07/05/19 Oxycodone HCl/Acetaminophen [Oxycodone-Acetaminophen 5-325] 1 ea PO Q6H PRN PRN 07/06/19 traZODone [Desyrel] 50 mg PO QHS 07/06/19 Amlodipine [Norvasc] 10 mg PO DAILY #30 tab 07/12/19 Amox/Clavulanate Tablet [Augmentin Tablet] 500 mg PO DAILY #2 tab 07/24/19 Collagenase [Santyl] 1 applic TOPICAL DAILY tube 07/24/19 Following Prescrptions Were Given to Patient: Amox/Clavulanate Tablet [Augmentin Tablet] 500 mg PO DAILY #2 tab Transmission Status: Received by [id number] Primary Care Physician: Augie Washburn MD [Primary Care Provider] - Please follow up with your Primary Care Physician in: within 2 weeks Please Follow Up With: Anca Gregorio DO When: as scheduled in dialysis Please Follow Up With: Kurtis Slaughter MD When: within 2 weeks Disposition: Home with Home Health Minutes spent on discharge:: 40 Patient Condition:: Stable Medical Necessity - Tobacco Use Smoking Status: Never smoker Tobacco Use: Non-smoker Meaningful Use Info Meaningful Use Diagnoses (Choose all that apply): None applicable Code Visit Inpatient E&M: 47478 Disch Hosp
--- NOTE | 2019-07-24 10:08 | PCM.PN.PUL ---
Patient Problems: Active and Suspected Problems (Last Reviewed 07/06/19 @ 09:26 by Eze Rivera MD) Sepsis (Acute) HCAP (healthcare-associated pneumonia) (Acute) Subjective: Patient is feeling much improved today compared to previous. Patient did have 6 L taken off with hemodialysis overnight. Patient is on 3 L nasal cannula. Patient did state that he had some claustrophobia associated with a full facemask overnight. Patient is planning to go home later today. - Physical Exam Vitals/I&O's: Vital Signs Temp Pulse Resp BP Pulse Ox 36.7 C 65 18 150/73 H 99 07/24/19 08:39 07/24/19 08:42 07/24/19 08:39 07/24/19 08:39 07/24/19 08:39 Oxygen Flow Rate (L/min) 2 Oxygen Delivery Method Nasal Cannula Weight: 120.6 kg Body Mass Index (BMI) 40.9 Finger Stick Blood Glucose 191 Intake and Output for Last 24 Hours 07/22/19 07/23/19 07/24/19 23:59 23:59 23:59 Intake Total 1000 / 1460 1720 / 2320 1000 / 1000 Output Total 100 / 100 6000 / 6100 100 / 100 Balance 900 / 1360 -4280 / -3780 900 / 900 General: Alert, Oriented x3, Cooperative, No apparent distress, Well developed, Well nourished, - - No conversational dyspnea. Appears older than stated age. Morbidly obese. HEENT: Atraumatic, PERRLA, EOMI, Normocephalic Oral: Moist Mucosa, No Gingival or Mucosal Lesions/ Ulcerations Neck: Supple, No JVD, No Nodes, Trachea Midline Lungs: No rhonchi, No wheeze, No rales, Diminished Cardiovascular: Regular rate, Normal S1, Normal S2, No murmurs, No rub noted, No Gallop Abdomen: Bowel Sounds Present, Soft, Non Tender, Non-Distended, Obese Extremities: No clubbing, No cyanosis, Edema Skin: No rashes, No breakdown Musculoskeletal: No Tenderness to Palpation of Joints or Extremities Lymphatic: No Cervical, Supraclavicular, or Inguinal Adenopathy Neurological: Cranial nerves II-XII grossly intact, Neuro grossly intact, Motor Exam 5/5 strength throughout Psych/Mental Status: Normal Affect, Appropriate Microbiology Past 72 Hours 07/20/19 00:42 Blood Culture (Wb) - Anticubital Left Blood Culture - Preliminary No growth in 48 hours. 07/19/19 23:32 Blood Culture (Wb) - Anticubital Left Blood Culture - Preliminary No growth in 48 hours. 07/20/19 13:20 Sputum, Expectorated/Coughed Gram Stain - Final 07/20/19 13:20 Sputum, Expectorated/Coughed Respiratory Culture - Final Presumptive C albicans Mixed Pepper Laboratory Results 07/23/19 14:27: POC Glucose 139 H 07/23/19 17:29: POC Glucose 210 H 07/23/19 21:06: POC Glucose 248 H 07/24/19 01:35: POC Glucose 176 H 07/24/19 04:58: Sodium 124 L, Potassium 4.6, Chloride 87 L, Carbon Dioxide 29.0, Anion Gap 8, BUN 25 H, Creatinine 4.15 H, Estim Creat Clear Calc 19.91, Est GFR (MDRD) Af Amer 20 L, Est GFR (MDRD) Non-Af 16 L, BUN/Creatinine Ratio 6.0 L, Glucose 187 H, Calcium 8.1 L 07/24/19 04:58: WBC 8.3, RBC 3.05 L, Hgb 8.4 L, Hct 27.9 L, MCV 91.5, MCH 27.5, MCHC 30.1 L, RDW Std Deviation 54.1 H, RDW Coeff of Roberto 16.1 H, Plt Count 216, MPV 9.2, Immature Gran % (Auto) 0.600, Neut % (Auto) 76.5 H, Lymph % (Auto) 8.5 L, [place] % (Auto) 6.1, Eos % (Auto) 7.2 H, Baso % (Auto) 1.1 H, Absolute Neuts (auto) 6.4, Absolute Lymphs (auto) 0.71 L, Nucleated RBC % 0 07/24/19 06:46: POC Glucose 201 H Current Medications Acetaminophen (Tylenol) 650 mg PO Q6H PRN PRN PRN Reason: Pain Score 1-3/Temp > 100.7 F Last Admin: 07/20/19 07:30 Dose: 650 mg Documented by: Al Hydroxide/Mg Hydroxide (Mylanta Ii) 30 ml PO Q6H PRN PRN PRN Reason: Gastric Burning Albuterol Sulfate (Ventolin Aerosols) 2.5 mg INHALATION Q2H PRN PRN PRN Reason: Shortness of Breath/Wheezing Albuterol/Ipratropium (Duoneb) 3 ml INHALATION Q4HWA.RT [facility] Last Admin: 07/24/19 07:35 Dose: 3 ml Documented by: Amlodipine Besylate (Norvasc) 10 mg PO DAILY [facility] Last Admin: 07/24/19 08:42 Dose: 10 mg Documented by: Aspirin (Ecotrin) 81 mg PO DAILY [facility] Last Admin: 07/24/19 08:42 Dose: 81 mg Documented by: Atorvastatin Calcium (Lipitor) 20 mg PO QHS [facility] Last Admin: 07/23/19 21:08 Dose: 20 mg Documented by: Collagenase (Santyl) 1 applic TOPICAL DAILY [facility]; Protocol Last Admin: 07/24/19 08:43 Dose: 1 applicatio Documented by: Cyclobenzaprine HCl (Flexeril) 10 mg PO TID PRN PRN PRN Reason: SPASMS Fluticasone Propionate (Flonase Nasal [place]) 1 spray NASAL DAILY [facility] Last Admin: 07/24/19 08:41 Dose: 1 spray Documented by: Furosemide (Lasix) 40 mg PO BID [facility] Last Admin: 07/24/19 08:42 Dose: 40 mg Documented by: Gabapentin (Neurontin) 300 mg PO BID [facility] Last Admin: 07/24/19 08:42 Dose: 300 mg Documented by: Glucagon () 1 mg IM .X1 PRN PRN Reason: Hypoglycemia Guaifenesin (Robitussin) 20 ml PO Q4H PRN PRN PRN Reason: COUGH Last Admin: 07/23/19 22:16 Dose: 20 ml Documented by: Hydralazine HCl (Apresoline Iv) 10 mg IV Q4H PRN PRN PRN Reason: SBP > 160 Last Admin: 07/20/19 01:39 Dose: 10 mg Documented by: Vancomycin IV Pharmacy to Dose (1 ea/ Sodium Chloride) 500 mls @ 250 mls/hr IV X1 PRN; Protocol PRN Reason: Rx to Dose Dextrose (Dextrose 10%-Water) 250 mls @ 999 mls/hr IV .Q16M PRN; Protocol PRN Reason: HYPOGLYCEMIA Piperacillin Sod/Tazobactam (Sod 3.375 gm/ Sodium Chloride) 50 mls @ 12.5 mls/hr IV Q12 [facility] Last Admin: 07/24/19 09:15 Dose: 12.5 mls/hr Documented by: Sodium Chloride () 250 mls @ 15 mls/hr IV .[id number] PRN PRN Reason: Saline Flush Sodium Chloride () 250 mls @ 15 mls/hr IV .[id number] PRN PRN Reason: Additional IVPB Infusion Insulin Human Lispro (Humalog Kwlindapen (Bkc)) 0 unit SC ACHS [facility]; Protocol Last Admin: 07/24/19 06:47 Dose: 4 u Documented by: Isosorbide Mononitrate (Imdur) 30 mg PO DAILY [facility] Last Admin: 07/24/19 08:42 Dose: 30 mg Documented by: Metoprolol Tartrate (Lopressor (Beta Emmanuel)) 50 mg PO BID [facility] Last Admin: 07/24/19 08:42 Dose: 50 mg Documented by: Morphine Sulfate () 4 mg IV Q3H PRN PRN PRN Reason: Pain Score 6-10/10 Nitroglycerin (Nitrostat) 0.4 mg SUBLINGUAL Q5M PRN PRN Reason: CARDIAC/CHEST PAIN Ondansetron HCl (Zofran) 4 mg IV Q8H PRN PRN PRN Reason: NAUSEA/VOMITING Last Admin: 07/24/19 05:29 Dose: 4 mg Documented by: Oxycodone HCl (Oxyir) 10 mg PO Q4H PRN PRN PRN Reason: Pain Score 4-5/10 Last Admin: 07/24/19 05:26 Dose: 10 mg Documented by: Pantoprazole Sodium (Protonix) 40 mg PO DAILY [facility] Last Admin: 07/24/19 08:42 Dose: 40 mg Documented by: Prochlorperazine Edisylate (Compazine Iv) 5 mg IV Q4H PRN PRN PRN Reason: Breakthrough nausea/vomiting Sevelamer Carbonate (Renvela) 2,400 mg PO TIDCM [facility] Sodium Chloride () 10 - 40 ml IV UD PRN PRN Reason: SALINE FLUSH Last Admin: 07/20/19 22:21 Dose: 10 ml Documented by: Throat Lozenges (Cepacol Sore Throat Lozenge) 1 lozenge MUCOUS MEM Q2H PRN PRN PRN Reason: Sore throat or cough Last Admin: 07/23/19 22:16 Dose: 1 lozenge Documented by: Trazodone HCl (Desyrel) 50 mg PO QHS [facility] Last Admin: 07/23/19 21:07 Dose: 50 mg Documented by: Medical Necessity - Tobacco Use Smoking Status: Never smoker Tobacco Use: Non-smoker Assessment/Plan All Active Problems (Last Reviewed 07/06/19 @ 09:26 by Eze Rivera MD) Community acquired pneumonia (Acute) Sepsis (Acute) HCAP (healthcare-associated pneumonia) (Acute) RECOMMENDATIONS: 1. Okay to discontinue antibiotics from my perspective 2. Wean supplemental oxygen to maintain saturations at or above 90%. 3. Continue BiPAP therapy with a pressure support of 18/12 centimeters of water with naps and nightly. 4. Encourage incentive spirometer use and mobilize patient as tolerated. 5. Outpatient pulmonary follow-up is once again recommended upon discharge from the hospital. IMPRESSIONS: 1. Shortness of breath/chronic hypoxemic respiratory failure Patient was able to tolerate BiPAP overnight, but states that he wants to use his nasal mask at home. Patient has been on minimal nasal cannula oxygen during the day. Patient appears to be improving with volume removal with hemodialysis. Do not believe the Brigida albicans and mixed pepper in sputum represent active infection. No antibiotics are indicated from a respiratory standpoint at discharge. Clinical suspicion for volume related hypoxia. Patient can be scheduled for a 2-week follow-up in our office, but has a history of noncompliance and no showing for visits. Did stress to the patient the importance of complying with low-salt diet, volume control and obstructive sleep apnea. 2. End-stage renal disease on hemodialysis Nephrology following to assist with hemodialysis needs. 3. Obstructive sleep apnea Previous sleep study from May 2017 revealed the need for nocturnal BiPAP therapy with a pressure support of 18/12 centimeters of water. This will be continued while the patient is admitted to the hospital. Patient may benefit to transition to full facemask as an outpatient. 4. History of heart failure with preserved ejection fraction/peripheral vascular disease Continue baseline cardiac medications. 5. Hypertension/hyperlipidemia/obesity/diabetes mellitus/chronic lower extremity wounds/GERD/history of medical noncompliance and follow-up Complicates care, management, recovery and prognosis. Continue home medications as indicated. Code Visit Inpatient E&M: 17225 Subs Hosp L2
--- NOTE | 2019-07-24 10:23 | CASEMGMT ---
Social Work Note Pt is discharging home today. SW placed a call to pt's CM Patricia Minor and updated her that pt will be discharged home today. Ade Kitchen RESIDENTIAL MONITOR, CAMPGROUND CLEANING ATTENDANT
--- NOTE | 2019-07-24 11:40 | CASEMGMT ---
AMIRAH BAUER in to discuss discharge plans with patient and . Patient would like to discharge home with [facility] with [facility] that was previously setup when discharged from [facility]. Patient is to follow-up with pulmonary as outpatient. AMIRAH BAUER educated patient and on importance of following up with pulmonary appt that was scheduled for patient, as well as PCP. AMIRAH BAUER also updated patient on the importance of wearing bipap. Patient voiced understanding. Referral sent to [facility] for [facility], PT/OT, and SW. [facility] here on site for meeting and will be up to see patient prior to discharge.
[2019-07-24 11:46] LABS: Bedside Glucose 169 mg/dL (70-110)
[2019-07-24] MEDS: Acetaminophen 325 MG Tablet 650 MG PO (11:54)
--- NOTE | 2019-07-25 13:36 | CASEMGMT ---
AMIRAH BAUER DC PHONE CALL DC DATE: 07.25.2019 DC Disposition: Home with [facility] Diagnosis on Discharge: Sepsis, HCAP LACE/STRATA: 16/ Intro role of CM to patient via phone. Pt states he has not picked up his medications because he does not have gas in his car. AMIRAH BAUER began to discuss options with pt, however he then mentioned that the HHC nurse was at the house. AMIRAH BAUER asked pt to let [facility] nurse know re: medications and difficulty with transportation to f/up. Pt said he would discuss with her. Noted, SW also ordered for [facility]. Toi TORRES RN ACM
== END 2019-07-24 15:04 | disposition home health service (06) | DRG 853 ==
LOC: ED 22:18 → MS3 23:45
PROVIDERS: Internal Medicine; Internal Medicine Critical Care Medicine; Admitting Provider Family Medicine; Emergency Provider Emergency Medicine; PCP Internal Medicine; Visit Provider Internal Medicine
DX: A41.9 Sepsis, unspecified organism (principal); N18.6 End stage renal disease; J18.9 Pneumonia, unspecified organism; J96.21 Acute and chronic respiratory failure with hypoxia; Z68.41 Body mass index [BMI] 40.0-44.9, adult; I13.2 Hypertensive heart and chronic kidney disease with heart failure and with stage 5 chronic kidney disease, or end stage renal disease; I50.32 Chronic diastolic (congestive) heart failure; E87.1 Hypo-osmolality and hyponatremia; M86.9 Osteomyelitis, unspecified; E11.42 Type 2 diabetes mellitus with diabetic polyneuropathy; E66.01 Morbid (severe) obesity due to excess calories; E78.5 Hyperlipidemia, unspecified; Z99.81 Dependence on supplemental oxygen; K21.9 Gastro-esophageal reflux disease without esophagitis; Z99.2 Dependence on renal dialysis; G47.33 Obstructive sleep apnea (adult) (pediatric); E11.621 Type 2 diabetes mellitus with foot ulcer; L97.522 Non-pressure chronic ulcer of other part of left foot with fat layer exposed; D63.1 Anemia in chronic kidney disease; E11.22 Type 2 diabetes mellitus with diabetic chronic kidney disease; Y95 Nosocomial condition; I27.20 Pulmonary hypertension, unspecified; Z79.4 Long term (current) use of insulin; Z86.73 Personal history of transient ischemic attack (TIA), and cerebral infarction without residual deficits; Z79.82 Long term (current) use of aspirin; E11.69 Type 2 diabetes mellitus with other specified complication; L97.512 Non-pressure chronic ulcer of other part of right foot with fat layer exposed; M20.5X1 Other deformities of toe(s) (acquired), right foot; M20.5X2 Other deformities of toe(s) (acquired), left foot; M21.629 Bunionette of unspecified foot; M20.40 Other hammer toe(s) (acquired), unspecified foot; R26.89 Other abnormalities of gait and mobility
CPT/HCPCS: 11042; 36415; 71045; 80048; 80202; 81001; 82962; 83605; 83735; 83880; 84100; 84484; 85025; 85027; 87040; 87070; 87205; 87449; 87633; 87641; 87804; 90937; 93005; 94002; 94003; 94640; 97110; 97116; 97162; 97166; 97530; 97535; 99251; 99285; J7030; J7040; A4216; G0257; G0463; J2405; Q5106

== ENCOUNTER 2019-07-27 20:56 | Emergency (ER) | payer MEDICARE, MEDICAID, SELFPAY ==
[2019-07-20 00:57] VITALS: BMI 40.9
[2019-07-27 20:57] VITALS: BP 176/73; PULSE 77; RESP 20; TEMP 36.7; O2SAT 94; BMI 39.4
--- NOTE | 2019-07-27 21:33 | EKG12_ITS ---
Test Reason : WEAKNESS Blood Pressure : / mmHG Vent. Rate : 075 BPM Atrial Rate : 075 BPM P-R Int : 140 ms QRS Dur : 088 ms QT Int : 416 ms P-R-T Axes : 039 015 130 degrees QTc Int : 464 ms Normal sinus rhythm Nonspecific ST and T wave abnormality Prolonged QT Abnormal ECG Confirmed by HOUSTON LOMELI, CANDIE ([id number]), desk editor KULWINDER MARTINEZ ([id number]) on 07/29/2019 12:30:27 PM Referred By: ANTHONY Confirmed By:CANDIE CONRAD MD
--- NOTE | 2019-07-27 21:33 | RAD_ITS ---
STUDY: X-RAY CHEST REASON FOR EXAM: Male, 48 years old. GENERALIZED WEAKNESS TECHNIQUE: AP and lateral chest. COMPARISON: 07/19/2019. CT chest 07/07/2019. FINDINGS: Low lung volumes. No pleural effusion. Mild hazy opacity on the right shows no significant change from the prior study. Normal size heart. Normal mediastinum and esmer. Normal visualized pulmonary arteries. Normal visualized aortic arch and descending thoracic aorta. Soft tissues and bony structures are unremarkable RAD/Chest PA and Lateral IMPRESSION: 1. No significant change in right lung opacities. Electronically Signed: Yanira Lopez MD at 22:28 EST Tel , Service support ,
--- NOTE | 2019-07-27 21:35 | ED.VISSUMM ---
- ER Visit Summary Date of Service: 07/27/19 Chief Complaint: Generalized weakness History of Present Illness: The patient is a 48 M history of insulin-dependent diabetes, anemia, hypertension, end-stage renal disease dialysis dialyzed Monday. And neuropathies. Patient was recently admitted for pneumonia and discharged on this past Monday. Says he has had recurrent fevers high as 103. Denies any nausea or vomiting or diarrhea. No dysuria. Said his neuropathic foot pain has been exacerbated also. He denies any chest pain or abdominal pain. Physical Examination: Middle-aged male vital signs stable afebrile. Does not look septic or toxic. H EENT exam mildly dry mucous membranes. No facial droop. No signs of trauma. Neck nontender. No meningismus. No lymphadenopathy. Lungs clear to auscultation bilaterally. Heart regular rhythm no murmur. Chest wall nontender. Abdomen soft. Obese. Nontender. Nondistended normal bowel sounds no peritoneal signs. Extremities moves all 4. He has a dressing on his right foot. Neurologically is awake and alert. He has normal motor strength both upper and lower extremities. No slurred speech. No facial droop. Test Results: Chest x-ray shows cardiomegaly and chronic changes. No acute process. Read both by myself and the radiologist. It was 2 views AP and lateral. EKG is normal sinus rhythm rate of 75 with no acute signs of ME or ischemia. No dysrhythmia. CBC shows a white count of 6. Hemoglobin is 8.5 at her baseline chronic anemia. Electrolytes unremarkable glucose of 365 anion gap of 6. Her BUN is 20 her creatinine is 3.51 again along his baseline. Serum ketones negative. Patient will be given 12 units of subcu insulin prior to discharge. He does not have any glucometer strips at home to check his sugar tonight so we will check a prior to being discharged. Emergency Department Course and Treatment: Dialysis patient with recent admission for pneumonia who just feels general malaise. Unremarkable exam. Repeat exam at 2325 patient is doing well. We went over all his test results. They are comfortable with him being discharged home. Treatment Plan: Follow-up with his doctor. Watch his blood sugars. Return if worse. Disposition: Discharge Impression: Generalized malaise Acute hyperglycemia history of insulin-dependent diabetes History is end-stage renal disease Anemia of chronic disease This note was generated with Richard dictation software. It may contain incorrect words, spelling, and punctuation that were not noted in review of the chart prior to signing ED Disposition - Plan for ED Patient: Disposition: Home or Assisted Living Instructions: ED Diabetic Hyperglycemia, WEAKNESS, Unk Cause Referrals: Augie Washburn MD [Primary Care Provider] - 1-2 Days if not improving Additional Instructions: Follow-up with your dialysis on Monday. Watch her blood sugars closely. Follow-up with your doctor this week if not feeling improved to return the emergency department if you are feeling worse.
[2019-07-27 21:54] LABS: Absolute Lymphocyte Count 0.67 X10^3/uL (0.83-4.51); Absolute Neutrophil Count 4.2 X10^3/uL (2.0-7.7); Basophil# 0.05 X10^3/uL; Basophil% 0.8 % (0-1); Eosinophil# 0.35 X10^3/uL; Eosinophils% 5.8 % (0-5); Hematocrit 27.9 % (40-54); Hemoglobin 8.5 g/dL (13.0-16.5); Lymphocyte # 0.67 X10^3/ul (4.0); Lymphocyte % 11.1 % (19-41); Mean Corp Hgb Conc 30.5 g/dL (32-36); Mean Corpuscular Hgb 28.5 pg (27.0-32.0); Mean Corpuscular Volume 93.6 fL (80-94); Mean Platelet Vol. 9.4 fl (6.2-12.0); Monocyte# 0.73 X10^3/uL; Monocyte% 12.1 % (0-10); NRBC Flagged by Analyzer 0 % (0-5); Neutrophil # 4.19 X10^3/uL (2.7-7.7); Neutrophil % 69.4 % (47-70); Platelet Count 210 K/mm3 (150-450); RBC Distribution Width CV 16.3 % (11.6-14.6); RBC Distribution Width SD 55.9 fl (35.1-43.9); Red Blood Count 2.98 M/mm3 (4.6-6.2)
[2019-07-27 22:08] LABS: Anion Gap 6 (5-15); BUN 20 mg/dL (7-18); BUN/Creat Ratio 5.7 RATIO (10-20); Calcium,Total 8.3 mg/dL (8.5-10.1); Chloride 99 mmol/L (98-107); Creatinine, Serum 3.51 mg/dL (0.70-1.30); EST Glomerular Filtration Rate 20 mL/min (>60); Est Glom Filt Rate - Afr Amer 24 mL/min (>60); Estimated Creatinine Clearance 23.54 ml/min; Glucose 365 mg/dL (74-106); Potassium 3.8 mmol/L (3.5-5.1); Sodium Level 136 mmol/L (136-145)
[2019-07-27 23:00] VITALS: BP 147/57; PULSE 75; RESP 14; O2SAT 98
--- NOTE | 2019-07-27 23:31 | ED.DEP ---
ED Disposition - Plan for ED Patient: Disposition: Home or Assisted Living Instructions: WEAKNESS, Unk Cause, ED Diabetic Hyperglycemia Referrals: Augie Washburn MD [Primary Care Provider] - 1-2 Days if not improving Additional Instructions: Follow-up with your dialysis on Monday. Watch her blood sugars closely. Follow-up with your doctor this week if not feeling improved to return the emergency department if you are feeling worse.
[2019-07-27 23:55] LABS: Bedside Glucose 410 mg/dL (70-110)
[2019-07-27] MEDS: Insulin Lispro 100 UNIT/ML INSULN.PEN 12 UNIT SC (23:55)
[2019-07-28 00:41] VITALS: BP 185/79; PULSE 82; RESP 16; O2SAT 98
--- NOTE | 2019-07-28 00:41 | ED.RN ---
ENCOURAGED PT TO TAKE NIGHT TIME MEDS.
[2019-07-28 00:45] LABS: Bedside Glucose 394 mg/dL (70-110)
== END 2019-07-28 00:41 | disposition home or self-care (01) ==
PROVIDERS: Emergency Provider Emergency Medicine; PCP Internal Medicine
DX: R53.1 Weakness (principal); R53.81 Other malaise; E11.65 Type 2 diabetes mellitus with hyperglycemia; I12.0 Hypertensive chronic kidney disease with stage 5 chronic kidney disease or end stage renal disease; E11.22 Type 2 diabetes mellitus with diabetic chronic kidney disease; N18.6 End stage renal disease; D63.1 Anemia in chronic kidney disease; E11.40 Type 2 diabetes mellitus with diabetic neuropathy, unspecified; Z99.2 Dependence on renal dialysis; Z79.4 Long term (current) use of insulin; Z79.82 Long term (current) use of aspirin
CPT/HCPCS: 71046; 80048; 82009; 82962; 85025; 93005; 99285; A4216

== ENCOUNTER 2019-08-01 21:03 | Inpatient (IN) | payer MEDICARE, MEDICAID, SELFPAY ==
[2019-08-01] VITALS (9 sets, daily range): BP systolic 191–205; BP diastolic 74–90; PULSE 80–84; RESP 14–24; TEMP 36.8–37.2; O2SAT 87–100; BMI 38.2
--- NOTE | 2019-08-01 21:08 | ED.RN ---
PT'S PULSE OX NOW 90 PERCENT ON 6 LNC.
--- NOTE | 2019-08-01 21:10 | RAD_ITS ---
STUDY: X-RAY CHEST REASON FOR EXAM: Male, 48 years old. Shortness of breath TECHNIQUE: Frontal and lateral views COMPARISON: July 27, 2019 FINDINGS: The lungs are expanded. Right basilar interstitial prominence. Normal size heart. Normal mediastinum and esmer. Normal visualized pulmonary arteries. Normal visualized aortic arch and descending thoracic aorta. Normal visualized thoracic spine. Normal visualized ribs, clavicles, and shoulders. There is no demonstrated abnormality of the visualized soft tissue structures of the upper abdomen. RAD/Chest PA and Lateral IMPRESSION: Right basilar interstitial prominence. Electronically Signed: Saurabh Romero DO at 21:31 EST Tel [phone], Service support ,
--- NOTE | 2019-08-01 21:59 | EKG12_ITS ---
Test Reason : DYSRHYTHMIA Blood Pressure : / mmHG Vent. Rate : 079 BPM Atrial Rate : 079 BPM P-R Int : 142 ms QRS Dur : 084 ms QT Int : 396 ms P-R-T Axes : 061 009 068 degrees QTc Int : 454 ms Normal sinus rhythm Nonspecific ST and T wave abnormality Abnormal ECG Confirmed by GIL LOMELI, ELIZABETH ([id number]), news assignment editor KULWINDER MARTINEZ ([id number]) on 08/06/2019 8:06:25 AM Referred By: YESSI Confirmed By:ELIZABETH CORDERO MD
[2019-08-01 22:09] LABS: Absolute Lymphocyte Count 0.87 X10^3/uL (0.83-4.51); Absolute Neutrophil Count 5.2 X10^3/uL (2.0-7.7); Basophil# 0.07 X10^3/uL; Eosinophils% 5.5 % (0-5); Hematocrit 30.6 % (40-54); Hemoglobin 9.4 g/dL (13.0-16.5); Lymphocyte # 0.87 X10^3/ul (4.0); Mean Corp Hgb Conc 30.7 g/dL (32-36); Mean Corpuscular Hgb 28.7 pg (27.0-32.0); Mean Corpuscular Volume 93.6 fL (80-94); Mean Platelet Vol. 9.5 fl (6.2-12.0); Monocyte# 0.57 X10^3/uL; Monocyte% 7.9 % (0-10); NRBC Flagged by Analyzer 0.3 % (0-5); Neutrophil # 5.15 X10^3/uL (2.7-7.7); Neutrophil % 70.8 % (47-70); Platelet Count 274 K/mm3 (150-450); RBC Distribution Width CV 16.7 % (11.6-14.6); RBC Distribution Width SD 57.1 fl (35.1-43.9); Red Blood Count 3.27 M/mm3 (4.6-6.2); White Blood Count 7.3 K/mm3 (4.4-11.0)
[2019-08-01] MEDS: Ipratropium/Albuterol Sulfate 3 ML AMPUL.NEB INHALATION (22:12)
[2019-08-01 22:24] LABS: Anion Gap 7 (5-15); BUN 29 mg/dL (7-18); BUN/Creat Ratio 7.3 RATIO (10-20); Calcium,Total 8.9 mg/dL (8.5-10.1); Chloride 100 mmol/L (98-107); Creatinine, Serum 3.99 mg/dL (0.70-1.30); EST Glomerular Filtration Rate 17 mL/min (>60); Est Glom Filt Rate - Afr Amer 21 mL/min (>60); Estimated Creatinine Clearance 20.71 ml/min; Glucose 309 mg/dL (74-106); Potassium 3.7 mmol/L (3.5-5.1); Sodium Level 139 mmol/L (136-145)
--- NOTE | 2019-08-01 22:44 | ED.DCSUM_ITS ---
- ER Visit Summary Date of Service: 08/01/19 Chief Complaint: [Shortness of breath] History of Present Illness: The patient is a 48 M [presents to the emergency department complaint of shortness of breath that started yesterday. Patient states that he was watching television when he became short of breath. Patient normally is on 2 L of home O2 as needed. Patient states that he has had a low- grade fever since yesterday. At dialysis he was 99.6. Patient does have a cough. Cough is mostly nonproductive. He denies recent travel or surgery. Patient does have a history of diabetes, hypertension, high cholesterol, and chronic renal failure. Patient states that he has been on home O2 as needed for years ever since he had some lung infections.] Physical Examination: [HEENT-PERRLA, EOMI. Cranial nerves II through XII grossly intact. TMs clear. Mucous membranes moist. No adenopathy. Cardiovascular-regular rate and rhythm without murmur or ectopy Lungs-clear to auscultation, chest wall stable without crepitus or subcu emphysema Abdomen-normoactive bowel sounds, soft, nontender, no rebound or rigidity, no peritoneal signs. Extremities-intact ?4, normal range of motion, normal pulses, atraumatic] Test Results: [EKG obtained arrival shows sinus rhythm with a ventricular rate of 79 bpm with some nonspecific ST changes. CBC with differential shows a white count 7.3, hemoglobin 9.4, hematocrit 30, placed 274. Chemistries unremarkable. Troponin is less than 0.015. Chest x-ray showed right basilar interstitial prominence] Emergency Department Course and Treatment: [Patient was placed on oxygen which was increased to 5 L in the department. Patient was started on Levaquin 750 mg IV.] Patient was given DuoNeb aerosol. Treatment Plan: [Admit] Disposition: [Admit] Impression: [Pneumonia Hypoxemia Dyspnea Chronic renal failure] This note was generated with ROBAUTO dictation software. It may contain incorrect words, spelling, and punctuation that were not noted in review of the chart prior to signing ED Disposition - Plan for ED Patient: Referrals: Augie Washburn MD [Primary Care Provider] -
[2019-08-01] MEDS: levoFLOXacin IV 750 MG/150 ML BAG 100 MG IV (22:47)
[2019-08-01 23:00] LABS: Lactic Acid 1.1 mmol/L (0.4-1.9)
--- NOTE | 2019-08-01 23:49 | HP.PCM_ITS ---
Problem List (1) CHF (congestive heart failure) Status: Chronic Qualifiers: Heart failure type: diastolic Heart failure chronicity: chronic Qualified Code(s): I50.32 - Chronic diastolic (congestive) heart failure (2) Pulmonary hypertension Status: Chronic (3) End stage renal disease on dialysis Status: Chronic (4) Peripheral vascular disease Status: Chronic (5) Chronic respiratory failure with hypoxia Status: Chronic (6) HTN (hypertension) Status: Chronic Qualifiers: Hypertension type: essential hypertension Qualified Code(s): I10 - Essential (primary) hypertension (7) Hyperlipidemia Status: Chronic Qualifiers: Hyperlipidemia type: unspecified Qualified Code(s): E78.5 - Hyperlipidemia, unspecified (8) Diabetic neuropathy Status: Chronic Qualifiers: Diabetes mellitus type: type 2 (9) Anemia Status: Chronic Qualifiers: Anemia type: unspecified type Qualified Code(s): D64.9 - Anemia, unspecified (10) SELMA (obstructive sleep apnea) Status: Chronic History of Present Illness Date of Admission: 08/01/19 Chief Complaint: Shortness of breath, low pulse ox. The patient is a 48 year old M patient with past medical history as mentioned above presented to the emergency room because of shortness of breath. Patient stated that his symptoms started yesterday when he was watching TV, became more short of breath while on 2 L of oxygen and his about his oxygen to 3 L and he felt okay afterwards. Today morning, he did not feel well but he went for hemodialysis. At the dialysis, he was informed that he had a temperature of 99.6 Fahrenheit. He finished 4 hours and 15 minutes of hemodialysis, felt okay and he went back home. This evening, he was about to go to his grandmother's house with his , was walking to the car and he felt that he is more short of breath. His checked his pulse ox was in the 70s on room air. His home health nurse came at that time checking on him and was advised to take his oxygen tank with him to go to his grandmother's house. His checked his pulse ox on oxygen and it was 76% again on 3 L of oxygen. Patient decided to come to the ER and before he checked him, his checked his pulse ox again and it was 76% on 3 L. He does use oxygen at 2 L PRN at home. Patient reported mild cough without sputum production. He denied chest pain, palpitation, dizziness or lightheadedness. He was discharged from the hospital on July 24, 2019 after admission for healthcare associated pneumonia with sepsis and he was discharged on Augmentin for 2 days after admission and completed a total of 7 days of treatment. In the emergency department, he was afebrile, heart rate stable, blood pressure was highly elevated, it was 212/74, required oxygen of up to 4 L. Routine blood work was remarkable for chronic anemia, BUN of 29 and creatinine of 3.99. EKG revealed normal sinus rhythm without evidence of acute ischemic changes or cardiac arrhythmias. Troponin was negative. Chest x-ray revealed cardiomegaly, questionable haziness on the right base, otherwise clear, I doubt pneumonia. He is being admitted for acute on chronic hypoxic respiratory failure and hypertensive urgency. Past Medical History Past Medical History (Chronic Problems): Chronic Problems (Last Updated 08/02/19 @ 00:14 by Kayla Tamayo MD) Noncompliance (Chronic) CHF (congestive heart failure) (Chronic) Abnormal stress test (Chronic) TIA (transient ischemic attack) (Chronic) Pulmonary hypertension (Chronic) Morbid obesity with BMI of 40.0-44.9, adult (Chronic) End stage renal disease on dialysis (Chronic) Peripheral vascular disease (Chronic) Toe fracture, right (Chronic) Ulcer of right foot with fat layer exposed (Chronic) Chronic ulcer of left foot with fat layer exposed (Chronic) Type 2 diabetes mellitus with diabetic polyneuropathy (Chronic) Chronic ulcer of left foot with fat layer exposed (Chronic) Chronic respiratory failure with hypoxia (Chronic) HTN (hypertension) (Chronic) Hyperlipidemia (Chronic) Diabetic neuropathy (Chronic) Anemia (Chronic) SELMA (obstructive sleep apnea) (Chronic) Medical History: Medical History (Last Updated 08/02/19 @ 00:14 by Kayla Tamayo MD) Chronic respiratory failure with hypoxia (Chronic) J96.11 HTN (hypertension) (Chronic) I10 Hyperlipidemia (Chronic) E78.5 Diabetic neuropathy (Chronic) E11.40 Anemia (Chronic) D64.9 SELMA (obstructive sleep apnea) (Chronic) G47.33 ESRD (end stage renal disease) on dialysis N18.6, Z99.2 cataract surgery, l eye Morbid obesity E66.01 Type 2 diabetes mellitus with other diabetic kidney complication E11.29 dx : age 16 last exacerbation : dka : never hypoglycemic episode : 2013 er visit : 2013 Allergies venom-honey bee [bee venom (honey bee)] Allergy (Verified 08/01/19 21:07) Swelling sulfamethoxazole [From Bactrim] Adverse Reaction (Verified 08/01/19 21:07) Upset Stomach trimethoprim [From Bactrim] Adverse Reaction (Verified 08/01/19 21:07) Upset Stomach Home Medications: Ambulatory Orders Medication Instructions Recorded Atorvastatin Calcium [Lipitor] 20 mg PO QHS 10/11/17 Vits A,C,E/Lutein/Minerals 1 ea PO DAILY 10/11/17 [Ocuvite with Lutein Tablet] Folic Acid/Vitamin B Comp W-C 1 cap PO DAILY 10/27/17 [Nephrocaps, Renaphro] albuterol sulfate 90 mcg/actuation 2 puff INHALATION Q4H PRN #18 g 02/26/18 aerosol inhaler Aspirin E.C. [Ecotrin] 81 mg PO DAILY 03/23/18 Cyclobenzaprine HCl 10 mg PO TID PRN PRN 03/23/18 Fluticasone 0.05% [Flonase Nasal 1 spray NASAL DAILY 03/23/18 [place]] Gabapentin [Neurontin] 300 mg PO BID 03/23/18 isosorbide mononitrate 30 mg 30 mg PO DAILY #30 tab 07/24/18 tablet,extended release 24 hr Acetaminophen [Tylenol Tablet] 650 mg PO Q6H PRN PRN tab 09/19/18 Furosemide [Lasix] 40 mg PO BID 03/12/19 Metoprolol Tartrate [Lopressor 50 mg PO BID 03/12/19 (beta khoa)] Omeprazole 40 mg PO DAILY 03/12/19 proMETHazine tablet [Phenergan 25 mg PO TID PRN 03/13/19 tablet] Sevelamer HCl [Renagel] 2,400 mg PO TID #0 03/20/19 Insulin Lispro [Humalog KwikPen] See Protocol SUBCUT ACHS 05/20/19 insuln.pen Insulin Aspart [Novolog Flexpen] 10 units SUBCUT TIDCM 07/05/19 traZODone [Desyrel] 50 mg PO QHS 07/06/19 Amlodipine [Norvasc] 10 mg PO DAILY #30 tab 01/10/20 Collagenase [Santyl] 1 applic TOPICAL DAILY tube 07/24/19 Surgical History: Surgical History (Last Reviewed 07/06/19 @ 09:26 by Eze Rivera MD) S/P tonsillectomy Z90.89 dialysis fistula Rt Arm Surgical History: tonsillectomy, - - Colectomy, right upper extremity aVF, right lower extremity angioplasty, right fifth ray resection. Psychiatric History: No pertinent psych hx Lives: Spouse/ Significant Other Smoking Status: Never smoker Alcohol: None Drugs: None - *Family History Maternal Family History: Family History (Last Reviewed 07/06/19 @ 09:27 by Eze Rivera MD) Mother Hypertension Heart disease Diabetes Father Hypertension Heart disease Brother Heart disease History Items: Diabetes, Heart Disease, Hypertension, Renal Disease Paternal Family History: Family History (Last Reviewed 07/06/19 @ 09:27 by Eze Rivera MD) Mother Hypertension Heart disease Diabetes Father Hypertension Heart disease Brother Heart disease History Items: Cancer - liver, Diabetes, Heart Disease Review of Systems Constitutional: Denies: Anorexia, Chills, Fever, Weakness Eyes: Denies: Blurred vision, Double vision, Drainage, Redness HEENT: Denies: Difficulty Hearing, Ear Pain, Eye Pain, Nasal Congestion, Sore Throat Cardiovascular: Denies: Chest Pain, Chest Pressure, Chest Tightness, Edema, Heaviness, Light Headedness, Palpitations, Syncope Respiratory: Reports: Cough, Shortness of breath upon exertion. Denies: Pleuritic Pain, Sputum production, Wheezing Gastrointestinal: Denies: Abdominal Pain, Constipation, Diarrhea, Nausea, Vomiting Genitourinary: Denies: Dysuria, Frequency, Hematuria Musculoskeletal: Denies: Arm Pain, Back Pain, Foot Pain Skin: Denies: Dryness, Rash Neurological: Denies: Balance problems, Double vision, Change in Speech, Slurred speech, Confusion, Focal weakness, Headaches, Incoordination Psychiatric: Denies: Anxiety, Depression Endocrine: Denies: Change in Body Habitus, Polydipsia, Polyuria VTE Information - Inpt Only VTE Present on Admission: No VTE Mechan Device Prophylaxis: None VTE Pharm Prophylaxis ordered?: Yes - Physical Exam Vitals/I&O's: Vital Signs Temp Pulse Resp BP Pulse Ox 98.2 F 80 24 H 205/74 H 97 08/01/19 22:07 08/01/19 22:18 08/01/19 22:18 08/01/19 22:07 08/01/19 22:18 Oxygen Flow Rate (L/min) 4 Oxygen Delivery Method Nasal Cannula Weight: 244 lb 3.2 oz Body Mass Index (BMI) 38.2 Finger Stick Blood Glucose 410 General: Alert, Oriented x3, Cooperative, - - Minimally short of breath. HEENT: Atraumatic, PERRLA, EOMI, Normocephalic Oral: Moist Mucosa, No Gingival or Mucosal Lesions/ Ulcerations Neck: Supple, No JVD, Negative Carotid Bruits, Trachea Midline, Thyroid Normal Size and Texture Lungs: No rhonchi, No wheeze, No rales, Diminished, - - Markedly decreased breath sounds bilaterally, more at the bases. Cardiovascular: Regular rate, Regular Rhythm, Normal S1, Normal S2, PMI Normal Abdomen: Bowel Sounds Present, Soft, Non Tender, Non-Distended, No Hepato- splenomegaly, Obese Extremities: No clubbing, No cyanosis, Edema Skin: No rashes, No breakdown Lymphatic: No Cervical, Supraclavicular, or Inguinal Adenopathy Neurological: Cranial nerves II-XII grossly intact, Motor Exam 5/5 strength throughout Psych/Mental Status: Normal Affect, Appropriate, Alert and oriented to time, place, person, mood and affect Microbiology Past 72 Hours 08/01/19 22:20 Mucosa - Nose Influenza Types A,B Direct FA (JAEL) - Final Laboratory Results 08/01/19 21:41: WBC 7.3, RBC 3.27 L, Hgb 9.4 L, Hct 30.6 L, MCV 93.6, MCH 28.7, MCHC 30.7 L, RDW Std Deviation 57.1 H, RDW Coeff of Roberto 16.7 H, Plt Count 274, MPV 9.5, Immature Gran % (Auto) 2.800 H, Neut % (Auto) 70.8 H, Lymph % (Auto) 12.0 L, [place] % (Auto) 7.9, Eos % (Auto) 5.5 H, Baso % (Auto) 1.0, Absolute Neuts (auto) 5.2, Absolute Lymphs (auto) 0.87, Nucleated RBC % 0.3 08/01/19 21:41: Sodium 139, Potassium 3.7, Chloride 100, Carbon Dioxide 32.0, Anion Gap 7, BUN 29 H, Creatinine 3.99 H, Estim Creat Clear Calc 20.71, Est GFR (MDRD) Af Amer 21 L, Est GFR (MDRD) Non-Af 17 L, BUN/Creatinine Ratio 7.3 L, Glucose 309 H, Calcium 8.9, Troponin I < 0.015 08/01/19 22:25: Lactic Acid 1.1 Clinical Impression(s) from Imaging Studies Chest X-Ray 08/01/19 21:10 IMPRESSION: Right basilar interstitial prominence. Electronically Signed: Saurabh Romero, at 21:31 EST Tel [phone], Service support , Current Medications Sodium Chloride () 250 mls @ 15 mls/hr IV .[id number] PRN PRN Reason: Saline Flush Last Admin: 08/01/19 22:46 Dose: 15 mls/hr Documented by: Assessment/Plan This is a 48 years old male patient presented to the emergency room because of shortness of breath and low pulse oximeter, found to have acute on chronic hypoxic respiratory failure of unclear etiology and also found to have hypertensive urgency which may explain his symptoms. #1 acute on chronic hypoxic respiratory failure: Unclear etiology. Could be due to uncontrolled hypertension in the setting of pulmonary hypertension. Obviously, no evidence of volume overload. Patient received hemodialysis today. Chest x-ray reviewed, I doubt pneumonia. Received 1 dose of IV Levaquin in the ED. Patient has been afebrile, no leukocytosis. He completed 7 days of treatment for HCAP this past Monday. Plan: Admit to PCU, cardiac monitoring, bronchodilators, continue Lasix twice daily, will check d-dimer, plan to control blood pressure, if d-dimer is elevated I will do CTA chest to rule out PE, chest physiotherapy, pulmonology consult. #2 hypertensive urgency: Blood pressure is high elevated, 212 systolic. Plan: Start hydralazine PRN, continue Norvasc, Lasix, nitrate and metoprolol. #4 ESRD on hemodialysis: Apparently, no evidence of volume overload. Patient received hemodialysis today. His kidney function stable, potassium is normal. Plan: Nephrology consult, dialysis Monday if patient stayed in the hospital, p atient may need dialysis earlier if we needed to do CTA chest. #4 type 2 diabetes mellitus: ADA diet, Accu-Cheks, insulin sliding scale, continue home doses of NovoLog 3 times daily. #5 hypertension: Blood pressure is elevated, plan as above, IV urology PRN, continue Norvasc, Lasix, nitrate and metoprolol. #6 peripheral vascular disease: #7 chronic diastolic CHF: At this time, clinically stable, compensated. Plan to continue Lasix, nitrate and metoprolol. #8 obstructive sleep apnea: Continue BiPAP at night with the same home settings. #9 chronic anemia: Secondary to anemia of chronic disease, hemoglobin and hematocrit are stable. #10 GERD: Continue PPI. #11 DVT prophylaxis: Subcu heparin. This note was generated with CamioCam dictation software. It may contain incorrect words, spelling, and punctuation that were not noted in checking the note before signing. Code Visit Inpatient E&M: 50116 Init Hosp L3
[2019-08-02] VITALS (20 sets, daily range): BP systolic 138–212; BP diastolic 70–81; PULSE 67–82; RESP 12–20; TEMP 36.4–37.1; O2SAT 92–98; BMI 39.9
--- NOTE | 2019-08-02 00:45 | NURSING ---
Report called to AMIRAH Topete in PCU.
[2019-08-02 01:01] LABS: D-Dimer Quantitative (DVT/PE) 2.43 FEU/ug/m (0.27-0.49)
--- NOTE | 2019-08-02 01:03 | NURSING ---
Pt is to be on PCU report given to PCU just got admitted.
[2019-08-02 01:04] LABS: International Normalized Ratio 1.2; Prothrombin Time (Protime)PT. 15.1 SECONDS (11.7-14.9)
--- NOTE | 2019-08-02 01:20 | CT_ITS ---
STUDY: CTA CHEST REASON FOR EXAM: Male, 48 years old. ELEVATED D-DIMER, Dyspnea, exertional HYPOXEMIA, DIALYSIS PT, BEST SCAN D/T PATIENT SIZE RADIATION DOSAGE (If Supplied By Facility): CTDIvol = ( 31.58 ) mGy, DLP = ( 727.89 ) mGycm TECHNIQUE: The examination was performed with the intravenous administration of IV 100mL Isovue-370. Post-processing of the angiographic images was performed, with multiplanar reformation and 3D reconstruction. Individualized dose optimization techniques were used for this CT. COMPARISON: Comparison is made with prior examination dated July 07, 2019. FINDINGS: Small bilateral axillary lymph nodes. Normal enhancement of the main pulmonary artery and right and left pulmonary arteries. Normal enhancement of the bilateral peripheral pulmonary arteries. There is no demonstrated pulmonary embolism. Normal thoracic aorta and visualized great vessels. There is no demonstrated aortic dissection. Normal heart and pericardium. There are visualized mediastinal lymph nodes, which are within normal size limits, and with normal morphology. Normal hilar regions. Normal visualized trachea and bronchi. The lungs are well expanded. Small bilateral pleural effusions with bibasilar atelectasis. The previously seen multifocal patchy bilateral infiltrates as much improved. Mild residual changes persist in both lungs. Normal chest wall structures. There are degenerative changes of thoracic spine. Normal visualized upper abdomen. CT/CTA Chest W/WO Contrast IMPRESSION: Improvement in aeration of both lungs. Small bilateral pleural effusions with bibasilar atelectasis. Electronically Signed: Johnnie Aranda, at 11:29 EST , Service support ,
[2019-08-02] MEDS: Acetaminophen 325 MG Tablet 650 MG PO (01:35)
[2019-08-02] MEDS: Ipratropium/Albuterol Sulfate 3 ML AMPUL.NEB INHALATION ×2 (02:57→13:08)
[2019-08-02 03:01] LABS: Allen Test POS; Base Excess 6 mmol/L (-2 to +2); Bicarbonate 30.7 mmol/L (22-26); Blood Gas Specimen Type ART; O2 Delivery Device Nasal Can; PO2 84 mmHG (75-100); SITE L Radial; SO2 96 % (95-99); Time Given 245; Total Carbon Dioxide 32 mmol/L; pCO2 47.1 mmHg (35-45); pH 7.42 (7.35-7.45)
[2019-08-02] MEDS: SEVELAMER CARBONATE 800 MG TABLET 2400 MG PO ×2 (06:37→13:53)
[2019-08-02] MEDS: Heparin Injection (Vial) 5,000 UNIT/ML VIAL 5000 UNIT SC (06:37)
[2019-08-02 06:45] LABS: Bedside Glucose 350 mg/dL (70-110)
[2019-08-02] MEDS: Albuterol 2.5 MG/3 ML VIAL.NEB. INHALATION (07:09)
--- NOTE | 2019-08-02 07:23 | CON.PCM_ITS ---
Reason for Consult Date of Consultation: 08/02/19 Reason for Consultation: Acute on chronic respiratory failure History of Present Illness: The patient is a 48-year-old male, with a history as outlined below, who presented to the emergency department on August 01 with complaints of shortness of breath. The patient was just admitted to the hospital July 19-, during which time, he was initially treated with antibiotics for possible tracheobronchitis. However, pulmonary infectious work-up was negative. The patient appeared to have a baseline 3 L/min supplemental oxygen requirement and was maintained on BiPAP during the hospitalization. The patient does have a longstanding history of medical noncompliance and dietary indiscretions. In addition, the patient has end-stage renal disease due to diabetes and hypertension for which he is on scheduled hemodialysis. He has persistent diabetic foot ulcers and is followed by podiatry in the wound center. Pulmonary function studies from October 2012, which only revealed evidence of a mild restrictive ventilatory impairment, likely secondary to the patient's body habitus. The patient was last seen in our pulmonary medicine clinic in 2017. He has no showed or canceled two subsequent follow-up visits in 2017 and one in 2018. He is currently scheduled to follow-up with our nurse practitioner in the pulmonary medicine clinic on August 07. On presentation to the emergency department, the patient was noted to be afebrile but was hypertensive with a blood pressure of 190/90 mmHg. Laboratory evaluation revealed no evidence of a leukocytosis. The patient does have baseline normocytic anemia, unchanged from previous. Chemistry profile was notable for a creatinine of 3.9. Lactate was within normal limits. Troponin was negative. Plain film chest x-ray revealed no acute cardiopulmonary process. The patient was given an aerosol treatment and placed on Levaquin. He was subsequently admitted to the progressive care unit. Past Medical History Past Medical History (Chronic Problems): Chronic Problems (Last Updated 08/02/19 @ 00:14 by Kayla Tamayo MD) Noncompliance (Chronic) CHF (congestive heart failure) (Chronic) Abnormal stress test (Chronic) TIA (transient ischemic attack) (Chronic) Pulmonary hypertension (Chronic) Morbid obesity with BMI of 40.0-44.9, adult (Chronic) End stage renal disease on dialysis (Chronic) Peripheral vascular disease (Chronic) Toe fracture, right (Chronic) Ulcer of right foot with fat layer exposed (Chronic) Chronic ulcer of left foot with fat layer exposed (Chronic) Type 2 diabetes mellitus with diabetic polyneuropathy (Chronic) Chronic ulcer of left foot with fat layer exposed (Chronic) Chronic respiratory failure with hypoxia (Chronic) HTN (hypertension) (Chronic) Hyperlipidemia (Chronic) Diabetic neuropathy (Chronic) Anemia (Chronic) SELMA (obstructive sleep apnea) (Chronic) Medical History: Medical History (Last Updated 08/02/19 @ 00:14 by Kayla Tamayo MD) Chronic respiratory failure with hypoxia (Chronic) J96.11 HTN (hypertension) (Chronic) I10 Hyperlipidemia (Chronic) E78.5 Diabetic neuropathy (Chronic) E11.40 Anemia (Chronic) D64.9 SELMA (obstructive sleep apnea) (Chronic) G47.33 ESRD (end stage renal disease) on dialysis N18.6, Z99.2 cataract surgery, l eye Morbid obesity E66.01 Type 2 diabetes mellitus with other diabetic kidney complication E11.29 dx : age 16 last exacerbation : dka : never hypoglycemic episode : 2012 er visit : 2013 Allergies venom-honey bee [bee venom (honey bee)] Allergy (Verified 08/01/19 21:07) Swelling sulfamethoxazole [From Bactrim] Adverse Reaction (Verified 08/01/19 21:07) Upset Stomach trimethoprim [From Bactrim] Adverse Reaction (Verified 08/01/19 21:07) Upset Stomach Home Medications: Ambulatory Orders Medication Instructions Recorded Atorvastatin Calcium [Lipitor] 20 mg PO QHS 10/11/17 Vits A,C,E/Lutein/Minerals 1 ea PO DAILY 10/11/17 [Ocuvite with Lutein Tablet] Folic Acid/Vitamin B Comp W-C 1 cap PO DAILY 10/27/17 [Nephrocaps, Renaphro] albuterol sulfate 90 mcg/actuation 2 puff INHALATION Q4H PRN #18 g 02/26/18 aerosol inhaler Aspirin E.C. [Ecotrin] 81 mg PO DAILY 03/23/18 Cyclobenzaprine HCl 10 mg PO TID PRN PRN 03/23/18 Fluticasone 0.05% [Flonase Nasal 1 spray NASAL DAILY 03/23/18 [place]] Gabapentin [Neurontin] 300 mg PO BID 03/23/18 isosorbide mononitrate 30 mg 30 mg PO DAILY #30 tab 07/24/18 tablet,extended release 24 hr Acetaminophen [Tylenol Tablet] 650 mg PO Q6H PRN PRN tab 09/19/18 Furosemide [Lasix] 40 mg PO BID 03/12/19 Metoprolol Tartrate [Lopressor 50 mg PO BID 03/12/19 (beta emmanuel)] Omeprazole 40 mg PO DAILY 03/12/19 proMETHazine tablet [Phenergan 25 mg PO TID PRN 03/13/19 tablet] Sevelamer HCl [Renagel] 2,400 mg PO TID #0 03/20/19 Insulin Lispro [Humalog KwikPen] See Protocol SUBCUT ACHS 05/20/19 insuln.pen Insulin Aspart [Novolog Flexpen] 10 units SUBCUT TIDCM 07/05/19 traZODone [Desyrel] 50 mg PO QHS 07/06/19 Amlodipine [Norvasc] 10 mg PO DAILY #30 tab 07/12/19 Collagenase [Santyl] 1 applic TOPICAL DAILY tube 07/24/19 Surgical History: Surgical History (Last Reviewed 07/06/19 @ 09:26 by Eze Rivera MD) S/P tonsillectomy Z90.89 dialysis fistula Rt Arm Surgical History: tonsillectomy, - - Colectomy, right upper extremity aVF, right lower extremity angioplasty, right fifth ray resection. Psychiatric History: No pertinent psych hx Lives: Spouse/ Significant Other Smoking Status: Never smoker Alcohol: None Drugs: None - *Family History Maternal Family History: Family History (Last Reviewed 07/06/19 @ 09:27 by Eze Rivera MD) Mother Hypertension Heart disease Diabetes Father Hypertension Heart disease Brother Heart disease History Items: Diabetes, Heart Disease, Hypertension, Renal Disease Paternal Family History: Family History (Last Reviewed 07/06/19 @ 09:27 by Eze Rivera MD) Mother Hypertension Heart disease Diabetes Father Hypertension Heart disease Brother Heart disease History Items: Cancer - liver, Diabetes, Heart Disease Review of Systems Constitutional: Denies: Chills, Fever, Weight Change HEENT: Denies: Head Aches, Sinus Congestion, Sinus Drainage Cardiovascular: Denies: Chest Pain, Palpitations Respiratory: Reports: Shortness of Breath Gastrointestinal: Denies: Abdominal Pain, Nausea, Vomiting Genitourinary: Denies: Dysuria Musculoskeletal: Denies: Joint Pain, Joint Tenderness Skin: Denies: Rash, Wounds Neurological: Denies: Numbness, Tingling, Focal weakness Psychiatric: Denies: Anxiety, Depression, Homicidal Ideations, Suicidal Ideations Hematologic/ Lymphatic: Denies: Easy Bruising, Easy Bleeding Objective: The patient's most recent lab work, culture data and imaging studies have all been personally reviewed. - Physical Exam Vitals/I&O's: Vital Signs Temp Pulse Resp BP Pulse Ox 97.7 F L 67 16 160/70 H 93 08/02/19 03:14 08/02/19 06:10 08/02/19 06:10 08/02/19 03:14 08/02/19 06:10 Oxygen Flow Rate (L/min) 4 Oxygen Delivery Method Nasal Cannula Weight: 255 lb 1.197 oz Body Mass Index (BMI) 39.9 Finger Stick Blood Glucose 410 Intake and Output for Last 24 Hours 07/31/19 08/01/19 08/02/19 23:59 23:59 23:59 Intake Total 503.5 / 503.5 Balance 503.5 / 503.5 General: Alert, Oriented x3, Cooperative, No apparent distress HEENT: Atraumatic, PERRLA, Normocephalic Oral: No Gingival or Mucosal Lesions/ Ulcerations Neck: Supple, No Nodes, Trachea Midline Lungs: Diminished Cardiovascular: Regular rate, Regular Rhythm, Normal S1, Normal S2 Abdomen: Bowel Sounds Present, Soft, Non Tender, Obese Extremities: No clubbing, No cyanosis, No edema Skin: No breakdown Musculoskeletal: No Tenderness to Palpation of Joints or Extremities Lymphatic: No Cervical, Supraclavicular, or Inguinal Adenopathy Neurological: Cranial nerves II-XII grossly intact, Neuro grossly intact Psych/Mental Status: Alert and oriented to time, place, person, mood and affect Labs (Last 48 Hours) 08/01/19 08/01/19 08/01/19 21:41 21:41 21:41 WBC 7.3 RBC 3.27 L Hgb 9.4 L Hct 30.6 L MCV 93.6 MCH 28.7 MCHC 30.7 L RDW Std Deviation 57.1 H RDW Coeff of Roberto 16.7 H Plt Count 274 MPV 9.5 Immature Gran % (Auto) 2.800 H Neut % (Auto) 70.8 H Lymph % (Auto) 12.0 L [place] % (Auto) 7.9 Eos % (Auto) 5.5 H Baso % (Auto) 1.0 Absolute Neuts (auto) 5.2 Absolute Lymphs (auto) 0.87 Nucleated RBC % 0.3 PT INR D-Dimer Quant (PE/DVT) 2.43 H* Specimen Type Sample Site pH Bicarbonate Actual POC Total CO2 Base Excess O2 Saturation ABG pCO2 ABG pO2 Brennan Test O2 Delivery Device Liter Flow Blood Gas Notified Whom Blood Gas Notified Time Sodium 139 Potassium 3.7 Chloride 100 Carbon Dioxide 32.0 Anion Gap 7 BUN 29 H Creatinine 3.99 H Estim Creat Clear Calc 20.71 Est GFR (MDRD) Af Amer 21 L Est GFR (MDRD) Non-Af 17 L BUN/Creatinine Ratio 7.3 L Glucose 309 H Lactic Acid Calcium 8.9 Troponin I < 0.015 POC Glucose 08/01/19 08/01/19 08/02/19 21:41 22:25 02:56 WBC RBC Hgb Hct MCV MCH MCHC RDW Std Deviation RDW Coeff of Roberto Plt Count MPV Immature Gran % (Auto) Neut % (Auto) Lymph % (Auto) [place] % (Auto) Eos % (Auto) Baso % (Auto) Absolute Neuts (auto) Absolute Lymphs (auto) Nucleated RBC % PT 15.1 H INR 1.2 D-Dimer Quant (PE/DVT) Specimen Type ART Sample Site L Radial pH 7.42 Bicarbonate Actual 30.7 H POC Total CO2 32 Base Excess 6 H O2 Saturation 96 ABG pCO2 47.1 H ABG pO2 84 Brennan Test POS O2 Delivery Device Nasal Can Liter Flow 4.0 Blood Gas Notified Whom [facility] Blood Gas Notified Time 245 Sodium Potassium Chloride Carbon Dioxide Anion Gap BUN Creatinine Estim Creat Clear Calc Est GFR (MDRD) Af Amer Est GFR (MDRD) Non-Af BUN/Creatinine Ratio Glucose Lactic Acid 1.1 Calcium Troponin I POC Glucose 08/02/19 06:33 WBC RBC Hgb Hct MCV MCH MCHC RDW Std Deviation RDW Coeff of Roberto Plt Count MPV Immature Gran % (Auto) Neut % (Auto) Lymph % (Auto) [place] % (Auto) Eos % (Auto) Baso % (Auto) Absolute Neuts (auto) Absolute Lymphs (auto) Nucleated RBC % PT INR D-Dimer Quant (PE/DVT) Specimen Type Sample Site pH Bicarbonate Actual POC Total CO2 Base Excess O2 Saturation ABG pCO2 ABG pO2 Brennan Test O2 Delivery Device Liter Flow Blood Gas Notified Whom Blood Gas Notified Time Sodium Potassium Chloride Carbon Dioxide Anion Gap BUN Creatinine Estim Creat Clear Calc Est GFR (MDRD) Af Amer Est GFR (MDRD) Non-Af BUN/Creatinine Ratio Glucose Lactic Acid Calcium Troponin I POC Glucose 350 H Microbiology 08/01/19 22:20 Mucosa - Nose Influenza Types A,B Direct FA ([facility]) - Final Clinical Impression(s) from Imaging Studies Chest X-Ray 08/01/19 21:10 IMPRESSION: Right basilar interstitial prominence. Electronically Signed: Saurabh Romero DO at 21:31 EST Tel [phone], Service support , Current Medications Acetaminophen (Tylenol) 650 mg PO Q6H PRN PRN PRN Reason: Pain Score 1-10/Temp > 100.7 F Last Admin: 08/02/19 01:35 Dose: 650 mg Documented by: Albuterol Sulfate (Ventolin Aerosols) 2.5 mg INHALATION Q2H PRN PRN PRN Reason: SOB/Wheezing Last Admin: 08/02/19 07:09 Dose: 2.5 mg Documented by: Albuterol/Ipratropium (Duoneb) 3 ml INHALATION Q6H.RT [facility] Last Admin: 08/02/19 02:57 Dose: 3 ml Documented by: Amlodipine Besylate (Norvasc) 10 mg PO DAILY [facility] Aspirin (Ecotrin) 81 mg PO DAILY RENE Atorvastatin Calcium (Lipitor) 20 mg PO QHS [facility] Cyclobenzaprine HCl (Flexeril) 10 mg PO TID PRN PRN PRN Reason: SPASMS Fluticasone Propionate (Flonase Nasal [place]) 1 spray NASAL DAILY [facility] Furosemide (Lasix) 40 mg PO BID RENE Gabapentin (Neurontin) 300 mg PO BID RENE Glucagon () 1 mg IM .X1 PRN PRN Reason: Hypoglycemia Heparin Sodium (Porcine) (Heparin Na) 5,000 unit SC Q8 [facility] Last Admin: 08/02/19 06:37 Dose: 5,000 unit Documented by: Hydralazine HCl (Apresoline Iv) 10 mg IV Q4H PRN PRN PRN Reason: for SBP>160 Dextrose (Dextrose 10%-Water) 250 mls @ 999 mls/hr IV .Q16M PRN; Protocol PRN Reason: HYPOGLYCEMIA Insulin Human Lispro (Humalog Kwikpen (Bkc)) 0 unit SC ACHS RENE; Protocol Insulin Human Lispro (Humalog Kwikpen (Bkc)) 10 unit SC 0800,1200,1700 [facility] Isosorbide Mononitrate (Imdur) 30 mg PO DAILY [facility] Metoprolol Tartrate (Lopressor (Beta Emmanuel)) 50 mg PO BID [facility] Ondansetron HCl (Zofran) 4 mg IV Q8H PRN PRN PRN Reason: NAUSEA/VOMITING Pantoprazole Sodium (Protonix) 40 mg PO DAILY [facility] Promethazine HCl (Phenergan Tablet) 25 mg PO TID PRN PRN PRN Reason: VOMITING Senna/Docusate Sodium (Senokot-S, Amanda-Colace) 2 tablet PO BID PRN PRN PRN Reason: Constipation Sevelamer Carbonate (Renvela) 2,400 mg PO TID [facility] Last Admin: 08/02/19 06:37 Dose: 2,400 mg Documented by: Trazodone HCl (Desyrel) 50 mg PO QHS [facility] Zolpidem Tartrate (Ambien (Generic)) 5 mg PO QHS PRN PRN PRN Reason: INSOMNIA Assessment/Plan RECOMMENDATIONS: 1. Wean supplemental oxygen to maintain saturations at or above 90%. 2. Aggressive blood pressure control. 3. Encourage incentive spirometer use and mobilize patient as tolerated. 4. Continue BiPAP therapy with naps and nightly. 5. Perform walking oximetry study prior to consideration for discharge home. 6. Keep follow-up appointment in the pulmonary medicine clinic on August 07, as scheduled. IMPRESSIONS: 1. Shortness of breath/chronic hypoxemic respiratory failure The patient once again presented to the hospital with complaints of shortness of breath and hypoxia. He does not appear to be consistent with the use of his supplemental oxygen in his home environment. In addition, the patient's blood pressures were elevated on arrival. Given his history of medical noncompliance and poor follow-up, I am skeptical of his compliance with his antihypertensive regimen as well. The patient's compliance with supplemental oxygen is also questionable. He does not have any evidence to suggest an underlying pulmonary infectious process. Therefore, I would recommend aggressive blood pressure control and weaning of his oxygen to maintain saturations at or above 90%. Perform walking oximetry study prior to consideration for discharge home. He is currently scheduled to follow-up in the pulmonary medicine clinic on August 07. The patient was strongly encouraged to come to his scheduled follow-up ap pointment. He will require pulmonary function studies as an outpatient. 2. End-stage renal disease on hemodialysis Nephrology consulted to assist with hemodialysis needs. 3. Obstructive sleep apnea Previous sleep study from May 2017 revealed the need for nocturnal BiPAP therapy with a pressure support of 18/12 centimeters of water. This will be continued while the patient is admitted to the hospital. The patient would likely benefit from a re-titration study upon follow-up in the pulmonary medicine clinic. 4. History of heart failure with preserved ejection fraction/peripheral vascular disease Continue baseline cardiac medications. 5. Hypertension/hyperlipidemia/obesity/diabetes mellitus/chronic lower extremity wounds/GERD/history of medical noncompliance and follow-up Complicates care, management, recovery and prognosis. Continue home medications as indicated. This note was generated with [employer] dictation software. It may contain incorrect words, spelling, and punctuation that were not noted in checking the note before signing. Code Visit Inpatient E&M: 67633 Init Hosp L2
[2019-08-02 09:36] LABS: Bedside Glucose 325 mg/dL (70-110)
[2019-08-02] MEDS: Pantoprazole Sodium 40 MG Tablet PO (09:40)
[2019-08-02] MEDS: Furosemide 40 MG Tablet PO (09:40)
[2019-08-02] MEDS: Aspirin E.C. 81 MG Tablet PO (09:40)
[2019-08-02] MEDS: Gabapentin 300 MG Capsule PO (09:40)
[2019-08-02] MEDS: Metoprolol Tartrate 50 MG Tablet PO (09:40)
[2019-08-02] MEDS: amLODIPine 10 MG Tablet PO (09:40)
[2019-08-02] MEDS: Isosorbide Mononitrate 30 MG Tablet PO (09:40)
[2019-08-02] MEDS: Insulin Lispro 100 UNIT/ML INSULN.PEN SC ×2 (09:46→12:27)
[2019-08-02] MEDS: Insulin Lispro 100 UNIT/ML INSULN.PEN 10 UNIT SC ×2 (09:46→12:27)
--- NOTE | 2019-08-02 10:05 | CASEMGMT ---
Nurse Obgyn spoke with patient and he told her he was getting meals delivered before his last hospitalization, however, it has stopped. He would like to have meals delivered again. WILFREDO called [facility] as patient is on waiver program. WILFREDO spoke with coverage line and let them know about his admission. Patient's caseworker intake is Patricia MinorFjijjg-[phone]. Patient has a medical alert button and 7 meals a week delivered by [employer]. WILFREDO called Patricia Minor and left her a voice mail letting her know patient is in the hospital and he told the community health nurse supervisor he isn't getting home delivered meals anymore. Agatha SHEETS DESK[employer] SPECIALIST
--- NOTE | 2019-08-02 10:33 | DCINST_ITS ---
You will use the following diet at home:: Calorie/Carbohydrate Controlled (specify 1200, 1400, etc), Cardiac Discharge Activity: Return to Normal Activity Call your doctor if you observe: Shortness of breath, Dizziness, Fainting spells, Chest pain Allergies/Adverse Reactions: Allergies venom-honey bee [bee venom (honey bee)] Allergy (Verified 08/01/19 21:07) Swelling sulfamethoxazole [From Bactrim] Adverse Reaction (Verified 08/01/19 21:07) Upset Stomach trimethoprim [From Bactrim] Adverse Reaction (Verified 08/01/19 21:07) Upset Stomach Medications to take at Discharge Atorvastatin Calcium [Lipitor] 20 mg PO QHS 10/11/17 Vits A,C,E/Lutein/Minerals [Ocuvite with Lutein Tablet] 1 ea PO DAILY 10/11/17 Folic Acid/Vitamin B Comp W-C [Nephrocaps, Renaphro] 1 cap PO DAILY 10/27/17 albuterol sulfate 90 mcg/actuation aerosol inhaler 2 puff INHALATION Q4H PRN #18 g 02/26/18 Aspirin E.C. [Ecotrin] 81 mg PO DAILY 03/23/18 Cyclobenzaprine HCl 10 mg PO TID PRN PRN 03/23/18 Fluticasone 0.05% [Flonase Nasal [place]] 1 spray NASAL DAILY 03/23/18 Gabapentin [Neurontin] 300 mg PO BID 03/23/18 isosorbide mononitrate 30 mg tablet,extended release 24 hr 30 mg PO DAILY #30 tab 07/24/18 Acetaminophen [Tylenol Tablet] 650 mg PO Q6H PRN PRN tab 09/19/18 Furosemide [Lasix] 40 mg PO BID 03/12/19 Metoprolol Tartrate [Lopressor (beta khoa)] 50 mg PO BID 03/12/19 Omeprazole 40 mg PO DAILY 03/12/19 proMETHazine tablet [Phenergan tablet] 25 mg PO TID PRN 03/13/19 Sevelamer HCl [Renagel] 2,400 mg PO TID #0 03/20/19 Insulin Lispro [Humalog KwikPen] See Protocol SUBCUT ACHS insuln.pen 05/20/19 Insulin Aspart [Novolog Flexpen] 10 units SUBCUT TIDCM 07/05/19 traZODone [Desyrel] 50 mg PO QHS 07/06/19 Amlodipine [Norvasc] 10 mg PO DAILY #30 tab 07/12/19 Collagenase [Santyl] 1 applic TOPICAL DAILY tube 07/24/19 Primary Care Physician: Augie Washburn MD [Primary Care Provider] - Please follow up with your Primary Care Physician in: 1 Week Test Results: Test results from this visit will be discussed in further detail at your follow- up appointment, if applicable. Please Follow Up With: Miriam Mix NP-C When: As scheduled 08/07/2019 Proposed Discharge Date: 08/02/19
--- NOTE | 2019-08-02 10:44 | PCM.DC.SUM ---
<Modesta Stoddard - Last Filed: 08/02/19 12:21> Discharge Date and Diagnosis Date of Admission: 08/01/19 Date of Discharge: 08/02/19 - Primary Discharge Diagnosis 1. Shortness of breath due to noncompliance with recommended oxygen usage, chronic hypoxic respiratory failure 2. Chronic diastolic CHF 3. End-stage renal disease on hemodialysis Monday, , Monday 4. Hypertension 5. Hyperlipidemia 6. Type 1 diabetes mellitus with neuropathy 7. Morbid obesity 8. GERD 9. Anemia of chronic disease 10. SELMA - Secondary Discharge Diagnosis Chronic Problems (Last Updated 08/02/19 @ 00:14 by Kayla Tamayo MD) Noncompliance (Chronic) CHF (congestive heart failure) (Chronic) Abnormal stress test (Chronic) TIA (transient ischemic attack) (Chronic) Pulmonary hypertension (Chronic) Morbid obesity with BMI of 40.0-44.9, adult (Chronic) End stage renal disease on dialysis (Chronic) Peripheral vascular disease (Chronic) Toe fracture, right (Chronic) Ulcer of right foot with fat layer exposed (Chronic) Chronic ulcer of left foot with fat layer exposed (Chronic) Type 2 diabetes mellitus with diabetic polyneuropathy (Chronic) Chronic ulcer of left foot with fat layer exposed (Chronic) Chronic respiratory failure with hypoxia (Chronic) HTN (hypertension) (Chronic) Hyperlipidemia (Chronic) Diabetic neuropathy (Chronic) Anemia (Chronic) SELMA (obstructive sleep apnea) (Chronic) Hospital Course and Treatment Operations: None Summary of Care Provided: The patient is a 48 year old M admitted 08/01/2019 due to shortness of breath and low pulse ox. 1. Shortness of breath secondary to noncompliance with recommended oxygen regimen, chronic hypoxic respiratory failure-continue supplemental oxygen to maintain O2 at or above 90%. Patient has follow-up with pulmonary medicine August 07 scheduled appointment. Patient will need pulmonary function studies and re-titration sleep study as outpatient. Chest x-ray unremarkable. D-dimer elevated in the context of end-stage renal disease, CTA without evidence of PE. Patient initially suspected to require extended hospital stay however he improved quicker than expected and was discharged home in improved condition. 2. Chronic diastolic CHF-continue home aspirin, statin, metoprolol, lisinopril, Lasix regimen. 3. End-stage renal disease on hemodialysis Monday, , Monday-follows with Dr. Gregorio. 4. Hypertension-continue isosorbide, Lasix, metoprolol, lisinopril. Blood pressure elevated during admission, suspect secondary to noncompliance with prescribed regimen. Improved prior to discharge. 5. Hyperlipidemia-continue statin regimen. 6. Type 1 diabetes mellitus with neuropathy-continue home insulin regimen. Hemoglobin A1c 03/12/19 12%. 7. Morbid obesity-encourage diet and lifestyle modifications. 8. GERD-continue PPI. 9. Anemia of chronic disease-stable. 10. SELMA-continue BiPAP nightly. General: Alert, Oriented x3, Cooperative HEENT: Atraumatic, PERRLA, EOMI, Normocephalic Neck: Supple, No JVD, Negative Carotid Bruits Lungs: Clear to auscultation, Diminished Cardiovascular: Regular rate, Regular Rhythm, Normal S1, Normal S2, No murmurs Abdomen: Bowel Sounds Present, Soft, Non Tender, Non-Distended, Obese Extremities: No clubbing, No cyanosis, No edema, Capillary Refill Less than 3 Seconds Skin: No rashes, No breakdown Musculoskeletal: No Tenderness to Palpation of Joints or Extremities Neurological: Cranial nerves II-XII grossly intact, Neuro grossly intact Psych/Mental Status: Normal Affect, Appropriate Patient seen and examined prior to discharge. Physical assessment as noted above. Patient is stable for discharge with follow up recommendations as noted above. This patient was seen by LATASHA West under the supervision of Dr. Velásquez. - Physical Exam Vitals/I&O's: Vital Signs Temp Pulse Resp BP Pulse Ox 97.6 F L 79 19 H 195/81 H 97 08/02/19 08:18 08/02/19 09:40 08/02/19 08:18 08/02/19 09:40 08/02/19 08:18 Oxygen Flow Rate (L/min) 2 Oxygen Delivery Method Nasal Cannula Weight: 255 lb 1.197 oz Body Mass Index (BMI) 39.9 Finger Stick Blood Glucose 410 Intake and Output for Last 24 Hours 07/31/19 08/01/19 08/02/19 23:59 23:59 23:59 Intake Total 503.5 / 503.5 Balance 503.5 / 503.5 Microbiology Past 72 Hours 08/01/19 22:20 Mucosa - Nose Influenza Types A,B Direct FA (JAEL) - Final Laboratory Results 08/01/19 21:41: WBC 7.3, RBC 3.27 L, Hgb 9.4 L, Hct 30.6 L, MCV 93.6, MCH 28.7, MCHC 30.7 L, RDW Std Deviation 57.1 H, RDW Coeff of Roberto 16.7 H, Plt Count 274, MPV 9.5, Immature Gran % (Auto) 2.800 H, Neut % (Auto) 70.8 H, Lymph % (Auto) 12.0 L, [place] % (Auto) 7.9, Eos % (Auto) 5.5 H, Baso % (Auto) 1.0, Absolute Neuts (auto) 5.2, Absolute Lymphs (auto) 0.87, Nucleated RBC % 0.3 08/01/19 21:41: Sodium 139, Potassium 3.7, Chloride 100, Carbon Dioxide 32.0, Anion Gap 7, BUN 29 H, Creatinine 3.99 H, Estim Creat Clear Calc 20.71, Est GFR (MDRD) Af Amer 21 L, Est GFR (MDRD) Non-Af 17 L, BUN/Creatinine Ratio 7.3 L, Glucose 309 H, Calcium 8.9, Troponin I < 0.015 08/01/19 21:41: D-Dimer Quant (PE/DVT) 2.43 H* 08/01/19 21:41: PT 15.1 H, INR 1.2 08/01/19 22:25: Lactic Acid 1.1 08/02/19 02:56: Specimen Type ART, Sample Site L Radial, pH 7.42, Bicarbonate Actual 30.7 H, POC Total CO2 32, Base Excess 6 H, O2 Saturation 96, ABG pCO2 47.1 H, ABG pO2 84, Brennan Test POS, O2 Delivery Device Nasal Can, Liter Flow 4.0, Blood Gas Notified Whom HOSP , Blood Gas Notified Time 245 08/02/19 06:33: POC Glucose 350 H 08/02/19 09:29: POC Glucose 325 H Current Medications Acetaminophen (Tylenol) 650 mg PO Q6H PRN PRN PRN Reason: Pain Score 1-10/Temp > 100.7 F Last Admin: 08/02/19 01:35 Dose: 650 mg Documented by: Albuterol Sulfate (Ventolin Aerosols) 2.5 mg INHALATION Q2H PRN PRN PRN Reason: SOB/Wheezing Last Admin: 08/02/19 07:09 Dose: 2.5 mg Documented by: Albuterol/Ipratropium (Duoneb) 3 ml INHALATION Q6H.RT [facility] Last Admin: 08/02/19 02:57 Dose: 3 ml Documented by: Amlodipine Besylate (Norvasc) 10 mg PO DAILY [facility] Last Admin: 08/02/19 09:40 Dose: 10 mg Documented by: Aspirin (Ecotrin) 81 mg PO DAILY [facility] Last Admin: 08/02/19 09:40 Dose: 81 mg Documented by: Atorvastatin Calcium (Lipitor) 20 mg PO QHS [facility] Cyclobenzaprine HCl (Flexeril) 10 mg PO TID PRN PRN PRN Reason: SPASMS Fluticasone Propionate (Flonase Nasal [place]) 1 spray NASAL DAILY [facility] Furosemide (Lasix) 40 mg PO BID [facility] Last Admin: 08/02/19 09:40 Dose: 40 mg Documented by: Gabapentin (Neurontin) 300 mg PO BID [facility] Last Admin: 08/02/19 09:40 Dose: 300 mg Documented by: Glucagon () 1 mg IM .X1 PRN PRN Reason: Hypoglycemia Heparin Sodium (Porcine) (Heparin Na) 5,000 unit SC Q8 [facility] Last Admin: 08/02/19 06:37 Dose: 5,000 unit Documented by: Hydralazine HCl (Apresoline Iv) 10 mg IV Q4H PRN PRN PRN Reason: for SBP>160 Dextrose (Dextrose 10%-Water) 250 mls @ 999 mls/hr IV .Q16M PRN; Protocol PRN Reason: HYPOGLYCEMIA Insulin Human Lispro (Humalog Kwikpen (Bkc)) 0 unit SC ACHS [facility]; Protocol Last Admin: 08/02/19 09:46 Dose: 5 u Documented by: Insulin Human Lispro (Humalog Kwikpen (Bkc)) 10 unit SC 0800,1200,1700 [facility] Last Admin: 08/02/19 09:46 Dose: 10 u Documented by: Isosorbide Mononitrate (Imdur) 30 mg PO DAILY [facility] Last Admin: 08/02/19 09:40 Dose: 30 mg Documented by: Metoprolol Tartrate (Lopressor (Beta Emmanuel)) 50 mg PO BID [facility] Last Admin: 01/31/20 09:40 Dose: 50 mg Documented by: Ondansetron HCl (Zofran) 4 mg IV Q8H PRN PRN PRN Reason: NAUSEA/VOMITING Pantoprazole Sodium (Protonix) 40 mg PO DAILY [facility] Last Admin: 08/02/19 09:40 Dose: 40 mg Documented by: Promethazine HCl (Phenergan Tablet) 25 mg PO TID PRN PRN PRN Reason: VOMITING Senna/Docusate Sodium (Senokot-S, Amanda-Colace) 2 tablet PO BID PRN PRN PRN Reason: Constipation Sevelamer Carbonate (Renvela) 2,400 mg PO TID [facility] Last Admin: 08/02/19 06:37 Dose: 2,400 mg Documented by: Trazodone HCl (Desyrel) 50 mg PO QHS [facility] Discharge Diet: Low fat/ Low Cholesterol, Carb Control Diet Discharge Activity: Return to Normal Activity Call your doctor if you observe: Shortness of breath, Dizziness, Fainting spells, Chest pain Home Medications: Medications to take at Discharge Atorvastatin Calcium [Lipitor] 20 mg PO QHS 10/11/17 Vits A,C,E/Lutein/Minerals [Ocuvite with Lutein Tablet] 1 ea PO DAILY 10/11/17 Folic Acid/Vitamin B Comp W-C [Nephrocaps, Renaphro] 1 cap PO DAILY 10/27/17 albuterol sulfate 90 mcg/actuation aerosol inhaler 2 puff INHALATION Q4H PRN #18 g 02/26/18 Aspirin E.C. [Ecotrin] 81 mg PO DAILY 03/23/18 Cyclobenzaprine HCl 10 mg PO TID PRN PRN 03/23/18 Fluticasone 0.05% [Flonase Nasal [place]] 1 spray NASAL DAILY 03/23/18 Gabapentin [Neurontin] 300 mg PO BID 03/23/18 isosorbide mononitrate 30 mg tablet,extended release 24 hr 30 mg PO DAILY #30 tab 07/24/18 Acetaminophen [Tylenol Tablet] 650 mg PO Q6H PRN PRN tab 09/19/18 Furosemide [Lasix] 40 mg PO BID 03/12/19 Metoprolol Tartrate [Lopressor (beta emmanuel)] 50 mg PO BID 03/12/19 Omeprazole 40 mg PO DAILY 03/12/19 proMETHazine tablet [Phenergan tablet] 25 mg PO TID PRN 03/13/19 Sevelamer HCl [Renagel] 2,400 mg PO TID #0 03/20/19 Insulin Lispro [Humalog KwikPen] See Protocol SUBCUT ACHS insuln.pen 05/20/19 Insulin Aspart [Novolog Flexpen] 10 units SUBCUT TIDCM 07/05/19 traZODone [Desyrel] 50 mg PO QHS 07/06/19 Amlodipine [Norvasc] 10 mg PO DAILY #30 tab 07/12/19 Collagenase [Santyl] 1 applic TOPICAL DAILY tube 07/24/19 Primary Care Physician: Augie Washburn MD [Primary Care Provider] - Please follow up with your Primary Care Physician in: 1 Week Please Follow Up With: Miriam Mix NP-C When: As scheduled 08/07/2019 Disposition: Home Minutes spent on discharge:: 35 Patient Condition:: Stable Medical Necessity - Tobacco Use Smoking Status: Never smoker Meaningful Use Info Meaningful Use Diagnoses (Choose all that apply): None applicable <DidierPamelacorina Grant - Last Filed: 08/02/19 15:18> Discharge Date and Diagnosis - Secondary Discharge Diagnosis Chronic Problems (Last Updated 08/02/19 @ 00:14 by Kayla Tamayo MD) Noncompliance (Chronic) CHF (congestive heart failure) (Chronic) Abnormal stress test (Chronic) TIA (transient ischemic attack) (Chronic) Pulmonary hypertension (Chronic) Morbid obesity with BMI of 40.0-44.9, adult (Chronic) End stage renal disease on dialysis (Chronic) Peripheral vascular disease (Chronic) Toe fracture, right (Chronic) Ulcer of right foot with fat layer exposed (Chronic) Chronic ulcer of left foot with fat layer exposed (Chronic) Type 2 diabetes mellitus with diabetic polyneuropathy (Chronic) Chronic ulcer of left foot with fat layer exposed (Chronic) Chronic respiratory failure with hypoxia (Chronic) HTN (hypertension) (Chronic) Hyperlipidemia (Chronic) Diabetic neuropathy (Chronic) Anemia (Chronic) SELMA (obstructive sleep apnea) (Chronic) Hospital Course and Treatment pulmonology- Dr Bowen Summary of Care Provided: Patient seen by Modesta PAGAN under my supervision Patient is a 48-year-old male with a past medical history as outlined was admitted through the ED on August 01, 2019 with a complaint of shortness of breath. Patient was just discharged from the hospital about a week ago during which time he was treated for antibiotics for suspected pneumonia. Pulmonary infectious work-up was negative. Patient is on baseline 3 L of oxygen but was not compliant at home. He said he was going to visit his grandmother and became short of breath. His home nurse came to check his oxygen and he was down in the 70s so he decided to come into the ED to be checked out to see what was causing the shortness of breath. He was admitted and managed for chronic hypoxic respiratory failure due to noncompliance. Oxygen had remained stable while she was in the hospital on his baseline 3 L of oxygen. Chest x-ray was unremarkable and d-dimer was elevated so he had a CTA which was negative for PE. Patient's condition improved significantly in the hospital, much quicker than expected and he was saturating well on his baseline oxygen. He was discharged home on 08/02/2019 and is to follow-up with nephrology for his dialysis on Monday. He was counseled to be compliant with his medication. Of note his blood pressure was also elevated during admission which was thought to be due to noncompliance and had improved urine admission when he was giving his blood pressure medications. Pulmonology was consulted during this admission. Patient is to follow-up with his primary care doctor and pulmonology and to be compliant with his medication. Patient seen and examined. He looks well. He denies shortness of breath and was on his baseline 3 L of oxygen. He was able to finish sentences and denied any cough, palpitations, dizziness, nausea vomiting or diarrhea. Review of systems is otherwise negative. Labs and vitals reviewed. Home medication reviewed and reconciled. o/e: Vital Signs Height 5 ft 7 in Weight: 255 lb 1.197 oz Weight in Pounds 255.1 lbs Pulse Ox 96 Temperature 98.5 F Pulse Rate 82 Respiratory Rate 18 Blood Pressure 138/70 Blood Pressure Position Sitting General: Alert, Oriented x3, Cooperative HEENT: Atraumatic, PERRLA, EOMI, Normocephalic Neck: Supple, No JVD, Negative Carotid Bruits Lungs: diminished breath sounds bibasally, on 2-3L of oxygen by nasal canula Cardiovascular: Regular rate, Regular Rhythm, Normal S1, Normal S2, No murmurs Abdomen: Bowel Sounds Present, Soft, Non Tender, Non-Distended, Obese Extremities: No clubbing, No cyanosis, No edema, Capillary Refill Less than 3 Seconds Skin: No rashes, No breakdown Musculoskeletal: No Tenderness to Palpation of Joints or Extremities Neurological: Cranial nerves II-XII grossly intact, Neuro grossly intact Psych/Mental Status: Normal Affect, Appropriate Plan as above. - Physical Exam Vitals/I&O's: Vital Signs Temp Pulse Resp BP Pulse Ox 98.5 F 82 18 138/70 H 96 08/02/19 15:03 08/02/19 15:03 08/02/19 15:03 08/02/19 15:03 08/02/19 15:03 Oxygen Flow Rate (L/min) 2 Oxygen Delivery Method Nasal Cannula Weight: 255 lb 1.197 oz Body Mass Index (BMI) 39.9 Finger Stick Blood Glucose 410 Intake and Output for Last 24 Hours 07/31/19 08/01/19 08/02/19 23:59 23:59 23:59 Intake Total 743.5 / 743.5 Output Total 250 / 250 Balance 493.5 / 493.5 Microbiology Past 72 Hours 08/01/19 22:20 Mucosa - Nose Influenza Types A,B Direct FA (JAEL) - Final Laboratory Results 08/01/19 21:41: WBC 7.3, RBC 3.27 L, Hgb 9.4 L, Hct 30.6 L, MCV 93.6, MCH 28.7, MCHC 30.7 L, RDW Std Deviation 57.1 H, RDW Coeff of Roberto 16.7 H, Plt Count 274, MPV 9.5, Immature Gran % (Auto) 2.800 H, Neut % (Auto) 70.8 H, Lymph % (Auto) 12.0 L, [place] % (Auto) 7.9, Eos % (Auto) 5.5 H, Baso % (Auto) 1.0, Absolute Neuts (auto) 5.2, Absolute Lymphs (auto) 0.87, Nucleated RBC % 0.3 08/01/19 21:41: Sodium 139, Potassium 3.7, Chloride 100, Carbon Dioxide 32.0, Anion Gap 7, BUN 29 H, Creatinine 3.99 H, Estim Creat Clear Calc 20.71, Est GFR (MDRD) Af Amer 21 L, Est GFR (MDRD) Non-Af 17 L, BUN/Creatinine Ratio 7.3 L, Glucose 309 H, Calcium 8.9, Troponin I < 0.015 08/01/19 21:41: D-Dimer Quant (PE/DVT) 2.43 H* 08/01/19 21:41: PT 15.1 H, INR 1.2 08/01/19 22:25: Lactic Acid 1.1 08/02/19 02:56: Specimen Type ART, Sample Site L Radial, pH 7.42, Bicarbonate Actual 30.7 H, POC Total CO2 32, Base Excess 6 H, O2 Saturation 96, ABG pCO2 47.1 H, ABG pO2 84, Brennan Test POS, O2 Delivery Device Nasal Can, Liter Flow 4.0, Blood Gas Notified Whom NINA LOMELI, Blood Gas Notified Time 245 08/02/19 06:33: POC Glucose 350 H 08/02/19 09:29: POC Glucose 325 H 08/02/19 12:24: POC Glucose 376 H Current Medications Acetaminophen (Tylenol) 650 mg PO Q6H PRN PRN PRN Reason: Pain Score 1-10/Temp > 100.7 F Last Admin: 08/02/19 01:35 Dose: 650 mg Documented by: Albuterol Sulfate (Ventolin Aerosols) 2.5 mg INHALATION Q2H PRN PRN PRN Reason: SOB/Wheezing Last Admin: 08/02/19 07:09 Dose: 2.5 mg Documented by: Albuterol/Ipratropium (Duoneb) 3 ml INHALATION Q6H.RT [facility] Last Admin: 08/02/19 13:08 Dose: 3 ml Documented by: Amlodipine Besylate (Norvasc) 10 mg PO DAILY [facility] Last Admin: 08/02/19 09:40 Dose: 10 mg Documented by: Aspirin (Ecotrin) 81 mg PO DAILY [facility] Last Admin: 08/02/19 09:40 Dose: 81 mg Documented by: Atorvastatin Calcium (Lipitor) 20 mg PO QHS [facility] Cyclobenzaprine HCl (Flexeril) 10 mg PO TID PRN PRN PRN Reason: SPASMS Fluticasone Propionate (Flonase Nasal [place]) 1 spray NASAL DAILY [facility] Last Admin: 08/02/19 12:28 Dose: Not Given Documented by: Furosemide (Lasix) 40 mg PO BID [facility] Last Admin: 08/02/19 09:40 Dose: 40 mg Documented by: Gabapentin (Neurontin) 300 mg PO BID [facility] Last Admin: 08/02/19 09:40 Dose: 300 mg Documented by: Glucagon () 1 mg IM .X1 PRN PRN Reason: Hypoglycemia Heparin Sodium (Porcine) (Heparin Na) 5,000 unit SC Q8 [facility] Last Admin: 08/02/19 13:54 Dose: Not Given Documented by: Hydralazine HCl (Apresoline Iv) 10 mg IV Q4H PRN PRN PRN Reason: for SBP>160 Last Admin: 08/02/19 12:50 Dose: 10 mg Documented by: Dextrose (Dextrose 10%-Water) 250 mls @ 999 mls/hr IV .Q16M PRN; Protocol PRN Reason: HYPOGLYCEMIA Insulin Human Lispro (Humalog Kwikpen (Bkc)) 0 unit SC ACHS [facility]; Protocol Last Admin: 08/02/19 12:27 Dose: 6 u Documented by: Insulin Human Lispro (Humalog Kwikpen (Bkc)) 10 unit SC 0800,1200,1700 [facility] Last Admin: 08/02/19 12:27 Dose: 10 u Documented by: Isosorbide Mononitrate (Imdur) 30 mg PO DAILY [facility] Last Admin: 08/02/19 09:40 Dose: 30 mg Documented by: Metoprolol Tartrate (Lopressor (Beta Emmanuel)) 50 mg PO BID [facility] Last Admin: 08/02/19 09:40 Dose: 50 mg Documented by: Ondansetron HCl (Zofran) 4 mg IV Q8H PRN PRN PRN Reason: NAUSEA/VOMITING Pantoprazole Sodium (Protonix) 40 mg PO DAILY [facility] Last Admin: 08/02/19 09:40 Dose: 40 mg Documented by: Promethazine HCl (Phenergan Tablet) 25 mg PO TID PRN PRN PRN Reason: VOMITING Senna/Docusate Sodium (Senokot-S, Amanda-Colace) 2 tablet PO BID PRN PRN PRN Reason: Constipation Sevelamer Carbonate (Renvela) 2,400 mg PO TID [facility] Last Admin: 08/02/19 13:53 Dose: 2,400 mg Documented by: Trazodone HCl (Desyrel) 50 mg PO QHS [facility] Code Visit Inpatient E&M: 49214 Disch Hosp
--- NOTE | 2019-08-02 12:28 | PHA.DC.MR ---
Pharmacy Service has performed discharge medication reconciliation for this patient. No new medications at time of discharge. Medications reviewed are from previously reported home medications. The patient's discharge medication list was reviewed for discrepancies and discrepancies were resolved. Home Medications Atorvastatin Calcium [Lipitor] 20 mg PO QHS 10/11/17 Vits A,C,E/Lutein/Minerals [Ocuvite with Lutein Tablet] 1 ea PO DAILY 10/11/17 Folic Acid/Vitamin B Comp W-C [Nephrocaps, Renaphro] 1 cap PO DAILY 10/27/17 albuterol sulfate 90 mcg/actuation aerosol inhaler 2 puff INHALATION Q4H PRN #18 g 02/26/18 Aspirin E.C. [Ecotrin] 81 mg PO DAILY 03/23/18 Cyclobenzaprine HCl 10 mg PO TID PRN PRN 03/23/18 Fluticasone 0.05% [Flonase Nasal [place]] 1 spray NASAL DAILY 03/23/18 Gabapentin [Neurontin] 300 mg PO BID 03/23/18 isosorbide mononitrate 30 mg tablet,extended release 24 hr 30 mg PO DAILY #30 tab 07/24/18 Acetaminophen [Tylenol Tablet] 650 mg PO Q6H PRN PRN tab 09/19/18 Furosemide [Lasix] 40 mg PO BID 03/12/19 Metoprolol Tartrate [Lopressor (beta khoa)] 50 mg PO BID 03/12/19 Omeprazole 40 mg PO DAILY 03/12/19 proMETHazine tablet [Phenergan tablet] 25 mg PO TID PRN 03/13/19 Sevelamer HCl [Renagel] 2,400 mg PO TID #0 03/20/19 Insulin Lispro [Humalog KwikPen] See Protocol SUBCUT ACHS insuln.pen 05/20/19 Insulin Aspart [Novolog Flexpen] 10 units SUBCUT TIDCM 07/05/19 traZODone [Desyrel] 50 mg PO QHS 07/06/19 Amlodipine [Norvasc] 10 mg PO DAILY #30 tab 07/12/19 Collagenase [Santyl] 1 applic TOPICAL DAILY tube 07/24/19
[2019-08-02 12:36] LABS: Bedside Glucose 376 mg/dL (70-110)
[2019-08-02] MEDS: hydrALAZINE 20 MG/ML Vial 10 MG IV (12:50)
--- NOTE | 2019-08-02 13:23 | CASEMGMT ---
LW/POA forms both scanned into summary tab of [facility], [place] Madden is listed as pt's medical POA. TRENTON Nye
--- NOTE | 2019-08-02 13:54 | CASEMGMT ---
AMIRAH BAUER NOTE: [facility] called and made aware pt was admitted to [facility] and is being discharged today 08/02/19. Resumption of care order has been placed and faxed to [facility] as well as discharge instructions and summary. Macie TORRES RN CM
--- NOTE | 2019-08-05 12:44 | CASEMGMT ---
Case Management F/u Call: DC Date: Monday08/02/2019 DC Diagnosis: 1. Shortness of breath due to noncompliance with recommended oxygen usage, chronic hypoxic respiratory failure 2. Chronic diastolic CHF 3. End-stage renal disease on hemodialysis Monday, , Monday 4. Hypertension 5. Hyperlipidemia 6. Type 1 diabetes mellitus with neuropathy 7. Morbid obesity 8. GERD 9. Anemia of chronic disease 10. SELMA DC Disposition: Home with [facility] Lace/Strata: 13/10 Called patient cell phone listed in demographics, no answer, VM did not confirm correct patient identity and therefore no VM left. Dima Flores RNCM
== END 2019-08-02 10:34 | disposition home or self-care (01) | DRG 189 ==
LOC: ED 21:52 → MS3 08-02 00:26 → PCU 08-02 01:51
PROVIDERS: Admitting Provider Hospitalist; Emergency Provider Emergency Medicine; PCP Internal Medicine; Visit Provider Student in an Organized Health Care Education/Training Program
DX: J96.11 Chronic respiratory failure with hypoxia (principal); N18.6 End stage renal disease; I50.32 Chronic diastolic (congestive) heart failure; I13.2 Hypertensive heart and chronic kidney disease with heart failure and with stage 5 chronic kidney disease, or end stage renal disease; I16.0 Hypertensive urgency; G47.33 Obstructive sleep apnea (adult) (pediatric); D63.8 Anemia in other chronic diseases classified elsewhere; E11.42 Type 2 diabetes mellitus with diabetic polyneuropathy; Z99.2 Dependence on renal dialysis; E11.22 Type 2 diabetes mellitus with diabetic chronic kidney disease; E66.01 Morbid (severe) obesity due to excess calories; K21.9 Gastro-esophageal reflux disease without esophagitis; E78.5 Hyperlipidemia, unspecified; Z79.4 Long term (current) use of insulin; Z91.19 Patient's noncompliance with other medical treatment and regimen; Z68.39 Body mass index [BMI] 39.0-39.9, adult
CPT/HCPCS: 36600; 71046; 71275; 80048; 82803; 82962; 83605; 84484; 85025; 85379; 85610; 87040; 87804; 93005; 94002; 94640; 94667; 99251; 99285; Q9967; A4216; G0463

== ENCOUNTER 2019-08-04 20:01 | Emergency (ER) | payer MEDICARE, MEDICAID, SELFPAY ==
[2019-08-02 00:41] VITALS: BMI 39.9
[2019-08-04 20:02] VITALS: BP 152/115; PULSE 76; RESP 20; TEMP 36.7; O2SAT 92; BMI 42.1
--- NOTE | 2019-08-04 20:20 | RAD_ITS ---
STUDY: X-RAY CHEST REASON FOR EXAM: Male, 48 years old. DYSPNEA TECHNIQUE: PA and lateral views of the chest. COMPARISON: 08/01/2019. FINDINGS: Cardiac silhouette is enlarged. Pulmonary vascularity increased. Aorta unremarkable. No focal airspace opacities. No pleural effusions. Upper abdomen unremarkable. Osseous structures intact. No pneumothorax. RAD/Chest PA and Lateral IMPRESSION: Cardiomegaly and mild pulmonary vascular congestion similar to prior. Electronically Signed: Jose D Silvestre, at 20:59 EST Tel , Service support ,
[2019-08-04 20:37] VITALS: BP 180/74; PULSE 75; RESP 18; O2SAT 98
--- NOTE | 2019-08-04 21:39 | ED.DCSUM_ITS ---
- ER Visit Summary Date of Service: 08/04/19 Chief Complaint: Shortness of breath after his oxygen tank ran out History of Present Illness: The patient is a 48 M history of diabetes and pulmonary effusions. He also has end-stage renal disease and is dialyzed on Monday and Saturdays. He was dialyzed yesterday. He is currently on oxygen after his recent hospitalization. He said he was doing fine his tank ran out today and when his oxygen ran out he became short of breath. He said they could have brought him oxygen he was not came into the ER. He denies chest pain or fever. He denies any hemoptysis. Physical Examination: Middle-aged male no acute distress vital signs are stable. On 2 L he is 92%. He said he feels fine on the oxygen. H EENT exam unremarkable. Neck nontender no JVD. Lungs clear to auscultation bilaterally. Heart regular rhythm no murmur. Rate about 80. Abdomen soft nontender normal bowel sounds no peritoneal signs. Mildly obese. Extremities moves all 4. 1+ pitting edema equally and symmetrically in both lower extremities. Calves are nontender without cords. Neurologically he is awake and alert. Moving all 4 extremities. Test Results: Chest x-ray was obtained AP lateral 2 views read by myself the radiologist. Shows cardiomegaly. Mild pulmonary edema. Similar prior studies. There is no large effusion. There is no pneumonia. Emergency Department Course and Treatment: Patient was placed on oxygen is doing well. With 2 to 3 L his sats are 92 to 95%. He is in no distress. We are trying to work with the patient and contact his oxygen delivery company and see if we need to set up to get him back home tonight. Otherwise he does not need to be admitted. Treatment Plan: Outpatient follow-up as needed. Disposition: Discharge Impression: Acute dyspnea secondary to his oxygen tank ran out History of end-stage renal disease on dialysis History of pulmonary edema This note was generated with [employer] dictation software. It may contain incorrect words, spelling, and punctuation that were not noted in review of the chart prior to signing ED Disposition - Plan for ED Patient: Referrals: Augie Washburn MD [Primary Care Provider] -
--- NOTE | 2019-08-04 21:42 | ED.DEP ---
ED Disposition - Plan for ED Patient: Disposition: Home or Assisted Living Instructions: ED Dyspnea Referrals: Augie Washburn MD [Primary Care Provider] - As Needed Gavino Bowen DO [STAFF PHYSICIAN] - As Needed Additional Instructions: Follow-up with your doctor if not improving. Return to the ER if you are feeling worse.
[2019-08-04 22:12] VITALS: O2SAT 89
--- NOTE | 2019-08-04 22:35 | ED.RN ---
notified Dr. Vail of pt concerned about his O2 at 89-90% on 4L. pt was repositioned and observed- is now 94% on 4L.
--- NOTE | 2019-08-04 22:45 | ED.RN ---
[facility] DELIVERED PORTABLE OXYGEN TANK TO PT HERE IN ER. [facility] STAFF IN TO SPEAK WITH THE PT ABOUT HOME OXYGEN. [facility] STAFF REPORTED BACK TO THIS NURSE THAT THE PT HOME OXYGEN/CONCENTRATOR IS WORKING NO ISSUES. IN ADDITION, PT ALSO HAVE OXYGEN TANKS OUT IN HIS CAR. THIS NURSE IN TO REVIEWED D/C INSTRUCTIONS WITH PT. PT VERBALIZED UNDERSTANDING OF INSTRUCTIONS. PT ASSISTED TO VEHICLE VIA W/C AND THE OXYGEN TANK THAT [facility] DELIVERED TO THE ER
[2019-08-04 22:48] VITALS: BP 168/72; PULSE 89; RESP 22; O2SAT 92
== END 2019-08-04 22:50 | disposition home or self-care (01) ==
PROVIDERS: Emergency Provider Emergency Medicine; PCP Internal Medicine
DX: R06.00 Dyspnea, unspecified (principal); E11.22 Type 2 diabetes mellitus with diabetic chronic kidney disease; N18.6 End stage renal disease; J81.1 Chronic pulmonary edema; Z99.2 Dependence on renal dialysis; Z99.81 Dependence on supplemental oxygen
CPT/HCPCS: 71046; 99284

== ENCOUNTER 2019-08-05 21:00 | Inpatient (IN) | payer MEDICARE, MEDICAID, SELFPAY ==
[2019-08-04 20:02] VITALS: BMI 42.1
[2019-08-05 21:08] VITALS: BP 185/92; PULSE 90; RESP 26; TEMP 36.9; O2SAT 83; BMI 42.1
[2019-08-05 21:16] VITALS: O2SAT 99
[2019-08-05 21:25] VITALS: O2SAT 98
--- NOTE | 2019-08-05 21:46 | EKG12_ITS ---
Test Reason : CP Blood Pressure : / mmHG Vent. Rate : 088 BPM Atrial Rate : 088 BPM P-R Int : 156 ms QRS Dur : 084 ms QT Int : 368 ms P-R-T Axes : 039 005 105 degrees QTc Int : 445 ms Normal sinus rhythm Nonspecific ST and T wave abnormality Abnormal ECG Confirmed by GIL LOMELI, ELIZABETH ([id number]), book or script editor JACKIE OJEDA ([id number]) on 08/07/2019 9:00:20 AM Referred By: Confirmed By:ELIZABETH CORDERO MD
[2019-08-05 22:04] VITALS: PULSE 84; RESP 12; RESP 20; O2SAT 96
[2019-08-05] MEDS: Ipratropium/Albuterol Sulfate 3 ML AMPUL.NEB INHALATION (22:04)
[2019-08-05 22:27] LABS: Absolute Lymphocyte Count 0.51 X10^3/uL (0.83-4.51); Absolute Neutrophil Count 10.3 X10^3/uL (2.0-7.7); Basophil# 0.05 X10^3/uL; Basophil% 0.4 % (0-1); Eosinophil# 0.39 X10^3/uL; Eosinophils% 3.3 % (0-5); Hematocrit 29.9 % (40-54); Hemoglobin 9.2 g/dL (13.0-16.5); Lymphocyte # 0.51 X10^3/ul (4.0); Lymphocyte % 4.3 % (19-41); Mean Corp Hgb Conc 30.8 g/dL (32-36); Mean Corpuscular Hgb 28.8 pg (27.0-32.0); Mean Corpuscular Volume 93.7 fL (80-94); Monocyte# 0.43 X10^3/uL; Monocyte% 3.7 % (0-10); NRBC Flagged by Analyzer 0 % (0-5); Neutrophil # 10.27 X10^3/uL (2.7-7.7); Neutrophil % 87.3 % (47-70); POSITIVE DIFFERENTIAL YES; Platelet Count 220 K/mm3 (150-450); RBC Distribution Width CV 17.4 % (11.6-14.6); RBC Distribution Width SD 60.2 fl (35.1-43.9); Red Blood Count 3.19 M/mm3 (4.6-6.2); White Blood Count 11.8 K/mm3 (4.4-11.0)
[2019-08-05 22:30] LABS: Differential Indicated SCAN CRITERIA MET
[2019-08-05 22:44] LABS: Differential Comment SCANNED
--- NOTE | 2019-08-05 22:45 | RAD_ITS ---
HISTORY: shortness of breath, patient made best attempt at holding breath dialysis patient EXAMINATION/TECHNIQUE: XR Chest 2 Views: COMPARISON: 08/04/2019 FINDINGS: Cardiac telemetry leads. Respiratory motion artifact. Cardiomegaly, unchanged. Worsening vascular congestion with bilateral pulmonary edema, worse on the right. Bilateral fissural thickening and enlarging small bilateral pleural effusions. No pneumothorax. RAD/Chest PA and Lateral IMPRESSION: CHF with worsening pulmonary edema and enlarging small bilateral pleural effusions at 2305 Reported and signed by: Yousuf Garcia MD Electronically Signed: Yousuf Garcia, at 23:04 EST Tel , Service support ,
[2019-08-05 22:47] LABS: Anion Gap 9 (5-15); BUN 63 mg/dL (7-18); BUN/Creat Ratio 10.2 RATIO (10-20); Calcium,Total 8.8 mg/dL (8.5-10.1); Chloride 100 mmol/L (98-107); Creatinine, Serum 6.17 mg/dL (0.70-1.30); EST Glomerular Filtration Rate 10 mL/min (>60); Est Glom Filt Rate - Afr Amer 12 mL/min (>60); Estimated Creatinine Clearance 13.39 ml/min; Glucose 501 mg/dL (74-106); Potassium 5.1 mmol/L (3.5-5.1); Sodium Level 135 mmol/L (136-145)
--- NOTE | 2019-08-05 23:35 | HP.PCM_ITS ---
Problem List (1) CHF (congestive heart failure) Status: Chronic Qualifiers: Heart failure type: diastolic Heart failure chronicity: chronic Qualified Code(s): I50.32 - Chronic diastolic (congestive) heart failure History of Present Illness Date of Admission: 08/05/19 Chief Complaint: sob The patient is a 48 year old M with a significant history of hypertension; obstr uctive sleep apnea; type 2 diabetes; stage II diastolic dysfunction who presented to emergency department with shortness of breath that started a day before presentation. Associated with his symptoms is left-sided chest pain that he reports as someone sitting on his chest. He received aspirin and nitroglycerin from the paramedics. Reportedly he got headache from the nitroglycerin. At the emergency department his blood glucose was severely elevated and he was given insulin. Also his blood pressure was severely elevated and he was given metoprolol. Chest x-ray at emergency department showe d worsening pulmonary edema and enlarging small bilateral pleural effusion. On the day before presentation he was at the emergency department because of shortness of breath attributed to running out of his home oxygen. Arrangement was made for him to have home oxygen. Pharmacological stress test on 03/18/2019 was normal. Past Medical History Past Medical History (Chronic Problems): Chronic Problems (Last Updated 08/02/19 @ 00:14 by Kayla Tamayo MD) Noncompliance (Chronic) CHF (congestive heart failure) (Chronic) Abnormal stress test (Chronic) TIA (transient ischemic attack) (Chronic) Pulmonary hypertension (Chronic) Morbid obesity with BMI of 40.0-44.9, adult (Chronic) End stage renal disease on dialysis (Chronic) Peripheral vascular disease (Chronic) Toe fracture, right (Chronic) Ulcer of right foot with fat layer exposed (Chronic) Chronic ulcer of left foot with fat layer exposed (Chronic) Type 2 diabetes mellitus with diabetic polyneuropathy (Chronic) Chronic ulcer of left foot with fat layer exposed (Chronic) Chronic respiratory failure with hypoxia (Chronic) HTN (hypertension) (Chronic) Hyperlipidemia (Chronic) Diabetic neuropathy (Chronic) Anemia (Chronic) SELMA (obstructive sleep apnea) (Chronic) Medical History: Medical History (Last Reviewed 08/06/19 @ 06:02 by Eze Rivera MD) Chronic respiratory failure with hypoxia (Chronic) J96.11 HTN (hypertension) (Chronic) I10 Hyperlipidemia (Chronic) E78.5 Diabetic neuropathy (Chronic) E11.40 Anemia (Chronic) D64.9 SELMA (obstructive sleep apnea) (Chronic) G47.33 ESRD (end stage renal disease) on dialysis N18.6, Z99.2 cataract surgery, l eye Morbid obesity E66.01 Type 2 diabetes mellitus with other diabetic kidney complication E11.29 dx : age 16 last exacerbation : dka : never hypoglycemic episode : 2012 er visit : 2013 Allergies venom-honey bee [bee venom (honey bee)] Allergy (Verified 08/05/19 21:08) Swelling sulfamethoxazole [From Bactrim] Adverse Reaction (Verified 08/05/19 21:08) Upset Stomach trimethoprim [From Bactrim] Adverse Reaction (Verified 08/05/19 21:08) Upset Stomach Home Medications: Ambulatory Orders Medication Instructions Recorded Atorvastatin Calcium [Lipitor] 20 mg PO QHS 10/11/17 Vits A,C,E/Lutein/Minerals 1 ea PO DAILY 10/11/17 [Ocuvite with Lutein Tablet] Folic Acid/Vitamin B Comp W-C 1 cap PO DAILY 10/27/17 [Nephrocaps, Renaphro] albuterol sulfate 90 mcg/actuation 2 puff INHALATION Q4H PRN #18 g 02/26/18 aerosol inhaler Aspirin E.C. [Ecotrin] 81 mg PO DAILY 03/23/18 Cyclobenzaprine HCl 10 mg PO TID PRN PRN 03/23/18 Fluticasone 0.05% [Flonase Nasal 1 spray NASAL DAILY 03/23/18 Rosalia] Gabapentin [Neurontin] 300 mg PO BID 03/23/18 isosorbide mononitrate 30 mg 30 mg PO DAILY #30 tab 07/24/18 tablet,extended release 24 hr Acetaminophen [Tylenol Tablet] 650 mg PO Q6H PRN PRN tab 09/19/18 Furosemide [Lasix] 40 mg PO BID 03/12/19 Metoprolol Tartrate [Lopressor 50 mg PO BID 03/12/19 (beta khoa)] Omeprazole 40 mg PO DAILY 03/12/19 proMETHazine tablet [Phenergan 25 mg PO TID PRN 03/13/19 tablet] Sevelamer HCl [Renagel] 2,400 mg PO TID #0 03/20/19 Insulin Lispro [Humalog KwikPen] See Protocol SUBCUT ACHS 05/20/19 insuln.pen Insulin Aspart [Novolog Flexpen] 10 units SUBCUT TIDCM 07/05/19 traZODone [Desyrel] 50 mg PO QHS 07/06/19 Amlodipine [Norvasc] 10 mg PO DAILY #30 tab 07/12/19 Collagenase [Santyl] 1 applic TOPICAL DAILY tube 07/24/19 Sertraline HCl [Zoloft] 25 mg PO DAILY 08/05/19 Surgical History: Surgical History (Last Reviewed 07/06/19 @ 09:26 by Eze Rivera MD) S/P tonsillectomy Z90.89 dialysis fistula Rt Arm Surgical History: tonsillectomy, - - Colectomy, right upper extremity aVF, right lower extremity angioplasty, right fifth ray resection. Psychiatric History: No pertinent psych hx Lives: Spouse/ Significant Other Smoking Status: Never smoker - *Family History Maternal Family History: Family History (Last Reviewed 08/06/19 @ 02:35 by Eze Rivera MD) Mother Hypertension Heart disease Diabetes Father Hypertension Heart disease Brother Heart disease History Items: Diabetes, Heart Disease, Hypertension, Renal Disease Paternal Family History: Family History (Last Reviewed 08/06/19 @ 02:35 by Eze Rivera MD) Mother Hypertension Heart disease Diabetes Father Hypertension Heart disease Brother Heart disease History Items: Cancer - liver, Diabetes, Heart Disease Review of Systems Constitutional: Denies: Chills, Fever, Weight Change HEENT: Denies: Head Aches, Sinus Congestion, Sinus Drainage Cardiovascular: Reports: Heaviness. Denies: Palpitations Respiratory: Reports: Shortness of Breath. Denies: Cough, Sputum production Gastrointestinal: Denies: Abdominal Pain, Nausea, Vomiting Genitourinary: Denies: Dysuria Musculoskeletal: Denies: Joint Pain, Joint Tenderness Skin: Reports: Wounds - bilateral feet. Denies: Rash Neurological: Denies: Numbness, Tingling, Focal weakness Psychiatric: Denies: Anxiety, Depression, Homicidal Ideations, Suicidal Ideations Hematologic/ Lymphatic: Denies: Easy Bruising, Easy Bleeding VTE Information - Inpt Only VTE Present on Admission: No VTE Mechan Device Prophylaxis: None VTE Pharm Prophylaxis ordered?: Yes - Physical Exam Vitals/I&O's: Vital Signs Temp Pulse Resp BP Pulse Ox 98.4 F 84 20 H 185/92 H 96 02/03/20 21:08 08/05/19 22:04 08/05/19 22:04 08/05/19 21:08 08/05/19 22:04 Oxygen Flow Rate (L/min) 6 Oxygen Delivery Method Non-Rebreather Weight: 122 kg Body Mass Index (BMI) 42.1 Finger Stick Blood Glucose 410 General: Alert, Oriented x3, Cooperative HEENT: Atraumatic, PERRLA, EOMI, Normocephalic Neck: Supple, Trachea Midline Lungs: Rales - mild; bilateral bases, Tachypneic Cardiovascular: Regular rate, Normal S1, Normal S2, No murmurs Abdomen: Bowel Sounds Present, Soft, Non Tender Extremities: No edema, Capillary Refill Less than 3 Seconds Skin: Ulcer/ Wound - lateral side of bilateral feet at the plantar sides Musculoskeletal: No Tenderness to Palpation of Joints or Extremities Neurological: Cranial nerves II-XII grossly intact Psych/Mental Status: Normal Affect, Appropriate Laboratory Results 08/05/19 22:05: WBC 11.8 H, RBC 3.19 L, Hgb 9.2 L, Hct 29.9 L, MCV 93.7, MCH 28.8, MCHC 30.8 L, RDW Std Deviation 60.2 H, RDW Coeff of Roberto 17.4 H, Plt Count 220, MPV 10.0, Immature Gran % (Auto) 1.000 H, Neut % (Auto) 87.3 H, Lymph % (Auto) 4.3 L, [place] % (Auto) 3.7, Eos % (Auto) 3.3, Baso % (Auto) 0.4, Absolute Neuts (auto) 10.3 H, Absolute Lymphs (auto) 0.51 L, Nucleated RBC % 0, Differential Comment SCANNED 08/05/19 22:05: Sodium 135 L, Potassium 5.1, Chloride 100, Carbon Dioxide 26.0, Anion Gap 9, BUN 63 H, Creatinine 6.17 H, Estim Creat Clear Calc 13.39, Est GFR (MDRD) Af Amer 12 L, Est GFR (MDRD) Non-Af 10 L, BUN/Creatinine Ratio 10.2, Glucose 501 H*, Calcium 8.8, Troponin I < 0.015 Assessment/Plan The patient is a 48 year old M with a significant history of hypertension; obstructive sleep apnea; type 2 diabetes; stage II diastolic dysfunction who presented to emergency department with shortness of breath; chest pain and found to have chest x-ray finding of Pulmonary edema . Acute exacerbation of diastolic heart failure. Echocardiogram on 03/16/2019 showed stage II diastolic heart failure. Pulmonary edema findings could be multifactorial from diastolic heart failure and from end-stage renal disease. Reportedly at home he takes Lasix 80 mg p.o. twice daily. He still make some urine. Will order Lasix 80 mg IV twice daily with first dose now. 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 Patient get dialysis Monday and Monday. BiPAP was placed in the emergency department; continued. Trend troponin Hypertensive emergency. Systolic blood pressure more than 180. Metoprolol x1 dose ordered emergency department. Labetalol as needed ordered. Home metoprolol and amlodipine continued. Trend blood pressure and adjust blood pressure medications. Imdur continued End-stage renal disease Likely from hypertension and diabetes. On dialysis; Monday and Saturdays. 2 g potassium restriction diet; low phosphate diet. Nephrocaps and phosphate binders ordered. Nephrology consult Diabetes mellitus with nephropathy (end-stage renal disease) With complications including diabetic nephropathy. Patient with hyperglycemia Short acting insulin; Humalog 10 units subcutaneous given at the emergency department. Patient still with hyperglycemia at the rob.Follow up BMP showed blood glucose of 716. Additional Humalog 10 units given at the rob. Not acidotic to consider as DKA.. Escalate home prandial insulin. Accu-Chek QA CHS and 3 AM with correction scale insulin. Long-acting insulin added to her regimen. Depression/anxiety Zoloft continued Diabetic ulcer bilateral feet Dry dressing continued. Wound care consult. Obstructive sleep apnea. BiPAP for now; nightly and PRN. DVT prophylaxis Subcutaneous heparin. Code Visit Inpatient E&M: 47975 Init Hosp L3
[2019-08-05 23:40] VITALS: BP 191/61; PULSE 88; RESP 19; O2SAT 93
[2019-08-06] VITALS (22 sets, daily range): BP systolic 146–203; BP diastolic 58–96; PULSE 67–92; RESP 12–28; TEMP 36.7–37.1; O2SAT 92–98; BMI 41.8
--- NOTE | 2019-08-06 00:54 | ED.DCSUM_ITS ---
- ER Visit Summary Date of Service: 08/06/19 Chief Complaint: Shortness of breath History of Present Illness: The patient is a [address] Washburn, Dr. Bowen, and Dr. Gregorio. He reports that he has shortness of breath that began abruptly at 830 tonight while he was at rest. States it was severe at worst mild currently. Is worsened by exertion and coughing. Is relieved by oxygen. Reports that he has a cough for the past 3 to 4 days that is productive yellow sputum without blood. He denies any fever or chills. Patient reports he has left-sided chest pressure that began at the same time. It is 9 out of 10 in severity. He reports he has a headache that is 9 out of 10 in severity that began after he got nitro on the way here. Physical Examination: Vitals: 98.4, 185/92, 84, 20, 96% on a nonrebreather. General: Well-nourished and well-developed. Head: Normocephalic atraumatic. Neck: Supple, no lymphadenopathy. No JVD. Nontender. Cardiovascular: Regular rate and rhythm. No murmurs. Respiratory: Mild respiratory distress. Crackles throughout bilaterally.. Abdominal: Soft, nontender, nondistended, normal bowel sounds. No guarding, rebound, or peritoneal signs. Back: Nontender. Extremities: Nontender, 1+ pitting edema lower extremities bilaterally. Skin: Normal color, no rash. Neurologic: Alert and oriented ?3. Cranial nerves II through XII are intact. Normal strength and sensation. Psych: Normal affect. Test Results: EKG is sinus at [address] changes. Is unchanged from last month. Troponin is negative. Chem-7 shows a sodium 135, BUN of 63, creatinine 6.17, glucose of 501. CBC shows a white count 11.8, H&H 9.2 and 29.9, segment neutrophils 87, lymphocytes of 4. Clinical Impression(s) from Imaging Studies Chest X-Ray 08/05/19 22:45 IMPRESSION: CHF with worsening pulmonary edema and enlarging small bilateral pleural effusions at 2305 Reported and signed by: Yousuf Garcia MD Electronically Signed: Yousuf Garcia, at 23:04 EST Tel , Service support , Emergency Department Course and Treatment: Patient was placed on BiPAP. He was given his evening metoprolol and insulin. He is resting more comfortably. Treatment Plan: The patient was discussed with Dr. Gregorio and Dr. Rivera. He will be admitted to the hospital for further evaluation and treatment. Disposition: Admitted in improved, but serious condition. Impression: 1. Pulmonary edema. 2. End-stage renal disease. 3. Respiratory failure on BiPAP. 4. Hyperglycemia. 5. Critical care time 35 minutes. This note was generated with [employer] dictation software. It may contain incorrect words, spelling, and punctuation that were not noted in review of the chart prior to signing
[2019-08-06] MEDS: Insulin Lispro 100 UNIT/ML INSULN.PEN 10 UNIT SC ×2 (01:13→04:36)
[2019-08-06] MEDS: Metoprolol(XL)Succ 50 MG Tablet PO (01:19)
--- NOTE | 2019-08-06 01:32 | CPS ---
Pt.'s FiO2 titrated from 30% - 40%; meet pt.'s oxygenation needs
[2019-08-06] MEDS: Acetaminophen 325 MG Tablet 650 MG PO ×3 (01:39→23:48)
[2019-08-06] MEDS: traZODone 50 MG Tablet PO ×2 (03:05→21:11)
[2019-08-06] MEDS: Furosemide 100 MG/10 ML Vial 80 MG IV ×3 (03:06→21:09)
[2019-08-06 03:21] LABS: Bedside Glucose > 500 mg/dL (70-110)
[2019-08-06 04:02] LABS: Glucose 716 mg/dL (74-106)
--- NOTE | 2019-08-06 04:52 | NURSING ---
PRN labetolol not given by this RN per dialysis RNs instructions. Will continue to monitor patient's blood pressures.
[2019-08-06 06:15] LABS: Absolute Lymphocyte Count 0.48 X10^3/uL (0.83-4.51); Absolute Neutrophil Count 7.7 X10^3/uL (2.0-7.7); Basophil# 0.04 X10^3/uL; Basophil% 0.5 % (0-1); Eosinophil# 0.13 X10^3/uL; Eosinophils% 1.5 % (0-5); Hematocrit 26.5 % (40-54); Hemoglobin 8.2 g/dL (13.0-16.5); Lymphocyte # 0.48 X10^3/ul (4.0); Lymphocyte % 5.5 % (19-41); Mean Corp Hgb Conc 30.9 g/dL (32-36); Mean Corpuscular Hgb 28.5 pg (27.0-32.0); Mean Platelet Vol. 9.9 fl (6.2-12.0); Monocyte# 0.32 X10^3/uL; Monocyte% 3.6 % (0-10); NRBC Flagged by Analyzer 0 % (0-5); Neutrophil # 7.73 X10^3/uL (2.7-7.7); Neutrophil % 87.9 % (47-70); POSITIVE DIFFERENTIAL YES; Platelet Count 190 K/mm3 (150-450); RBC Distribution Width CV 17.3 % (11.6-14.6); RBC Distribution Width SD 58.6 fl (35.1-43.9); Red Blood Count 2.88 M/mm3 (4.6-6.2); White Blood Count 8.8 K/mm3 (4.4-11.0)
[2019-08-06 06:21] LABS: Differential Indicated SCAN CRITERIA MET
[2019-08-06 06:51] LABS: Anisocytosis 2+; Differential Comment SCANNED
[2019-08-06] MEDS: SEVELAMER CARBONATE 800 MG TABLET 2400 MG PO ×3 (07:02→21:09)
[2019-08-06] MEDS: Heparin Injection (Vial) 5,000 UNIT/ML VIAL 5000 UNIT SC ×3 (07:03→21:10)
[2019-08-06 07:15] LABS: Bedside Glucose 390 mg/dL (70-110)
--- NOTE | 2019-08-06 09:46 | DIALYSIS ---
Hemodialysis tx completed x 4 hours without complications. Pt tolerated tx well, fluid removed 5,000ml. Pt is hypertensive post tx. Verbal report given to RN Galdino post tx. Next scheduled dialysis 08/08/19
--- NOTE | 2019-08-06 09:50 | PCM.CONS.R ---
Consultation - Renal 08/06/19 PCP/ Referring MD: Requesting physician: [] Primary care physician: Augie Washburn MD Reason for Consultation:: ESRD HD TTS - History of Present Illness History of Present Illness: The patient is a 48 year old obese M with ESRD due to poorly controlled diabetes with diabetic foot ulcer, hypertension admitted for increased SOB, edema with elevated sugar and BP. He was placed on BIPAP. He has high fluid gains between his dialysis. He is noncompliant with fluid restriction, diet, and suspect noncompliance with his medications. He ate but did not give himself insulin before coming in to ER yesterday. He is currently receiving hemodialysis. He is set for 5 L fluid removal. He remains on BIPAP. Denied fever, chills. Has nonproductive cough. - Allergies Allergies: Allergies venom-honey bee [bee venom (honey bee)] Allergy (Verified 08/05/19 21:08) Swelling sulfamethoxazole [From Bactrim] Adverse Reaction (Verified 08/05/19 21:08) Upset Stomach trimethoprim [From Bactrim] Adverse Reaction (Verified 08/05/19 21:08) Upset Stomach - Current Medications Current Medications: Current Medications Acetaminophen (Tylenol) 650 mg PO Q6H PRN PRN PRN Reason: Pain Score 1-10/Temp > 100.7 F Albuterol Sulfate (Ventolin Aerosols) 2.5 mg INHALATION Q2H PRN PRN PRN Reason: SOB/Wheezing Amlodipine Besylate (Norvasc) 10 mg PO DAILY [facility] Aspirin (Ecotrin) 81 mg PO DAILY@0800 [facility] Atorvastatin Calcium (Lipitor) 20 mg PO QHS [facility] Collagenase (Santyl) 1 applic TOPICAL DAILY [facility]; Protocol Cyclobenzaprine HCl (Flexeril) 10 mg PO TID PRN PRN PRN Reason: SPASMS Fluticasone Propionate (Flonase Nasal [place]) 1 spray NASAL DAILY [facility] Furosemide (Lasix) 80 mg IV BID [facility] Last Admin: 08/06/19 03:06 Dose: 80 mg Documented by: Gabapentin (Neurontin) 300 mg PO BID [facility] Glucagon () 1 mg IM .X1 PRN PRN Reason: Hypoglycemia Heparin Sodium (Porcine) (Heparin Na) 5,000 unit SC Q8 [facility] Last Admin: 08/06/19 07:03 Dose: 5,000 unit Documented by: Dextrose (Dextrose 10%-Water) 250 mls @ 999 mls/hr IV .Q16M PRN; Protocol PRN Reason: HYPOGLYCEMIA Insulin Glargine (Lantus ([facility])) 40 units SC QHS [facility] Insulin Human Lispro (Humalog Kwikpen ([facility])) 0 unit SC ACHS & 0200 [facility]; Protocol Insulin Human Lispro (Humalog Kwikpen ([facility])) 15 unit SC 0800,1200,1700 [facility] Isosorbide Mononitrate (Imdur) 30 mg PO DAILY [facility] Labetalol HCl (Trandate) 10 mg IV Q4H PRN PRN PRN Reason: SBP > 160 Magnesium Hydroxide (Milk Of Magnesia) 30 ml PO DAILY PRN PRN PRN Reason: Constipation Metoprolol Tartrate (Lopressor (Beta Emmanuel)) 50 mg PO BID [facility] Multivit/Ca Carb/B Cmplx/FA/Prenat (Nephrocaps, Renaphro) 1 capsule PO DAILY [facility] Multivitamins/Minerals (Healthy Eyes) 1 capsule PO DAILY [facility] Nutritional Formula (Lactose Free) (Glucerna Shake) 120 ml PO TIDCM [facility] Ondansetron HCl (Zofran) 4 mg IV Q8H PRN PRN PRN Reason: NAUSEA/VOMITING Pantoprazole Sodium (Protonix) 40 mg PO DAILY [facility] Promethazine HCl (Phenergan Tablet) 25 mg PO TID PRN PRN Reason: VOMITING Sertraline HCl (Zoloft) 25 mg PO DAILY [facility] Sevelamer Carbonate (Renvela) 2,400 mg PO TID [facility] Last Admin: 08/06/19 07:02 Dose: 2,400 mg Documented by: Sodium Chloride () 10 - 40 ml IV UD PRN PRN Reason: SALINE FLUSH Trazodone HCl (Desyrel) 50 mg PO QHS [facility] Last Admin: 08/06/19 03:05 Dose: 50 mg Documented by: - Past Medical History Past Medical History (Chronic Problems): Chronic Problems (Last Reviewed 08/06/19 @ 06:02 by Eze Rivera MD) Noncompliance (Chronic) CHF (congestive heart failure) (Chronic) Abnormal stress test (Chronic) TIA (transient ischemic attack) (Chronic) Pulmonary hypertension (Chronic) Morbid obesity with BMI of 40.0-44.9, adult (Chronic) End stage renal disease on dialysis (Chronic) Peripheral vascular disease (Chronic) Toe fracture, right (Chronic) Ulcer of right foot with fat layer exposed (Chronic) Chronic ulcer of left foot with fat layer exposed (Chronic) Type 2 diabetes mellitus with diabetic polyneuropathy (Chronic) Chronic ulcer of left foot with fat layer exposed (Chronic) Chronic respiratory failure with hypoxia (Chronic) HTN (hypertension) (Chronic) Hyperlipidemia (Chronic) Diabetic neuropathy (Chronic) Anemia (Chronic) SELMA (obstructive sleep apnea) (Chronic) - Past Surgical History Surgical History: tonsillectomy, - - Colectomy, right upper extremity aVF, right lower extremity angioplasty, right fifth ray resection. - Social History Smoking Status: Never smoker - Family History Maternal Family History: Family History (Last Reviewed 08/06/19 @ 02:35 by Eze Rivera MD) Mother Hypertension Heart disease Diabetes Father Hypertension Heart disease Brother Heart disease History Items: Diabetes, Heart Disease, Hypertension, Renal Disease Paternal Family History: Family History (Last Reviewed 08/06/19 @ 02:35 by Eze Rivera MD) Mother Hypertension Heart disease Diabetes Father Hypertension Heart disease Brother Heart disease History Items: Cancer - liver, Diabetes, Heart Disease Review of Systems Constitutional: Reports: Weakness. Denies: Anorexia, Chills, Fever Cardiovascular: Denies: Chest Pain Respiratory: Reports: Cough, Shortness of Breath. Denies: Sputum production Gastrointestinal: Denies: Abdominal Pain, Nausea, Vomiting Genitourinary: Denies: Dysuria Skin: Reports: - - edema. Denies: Rash - Physical Exam Vitals/I&O's: Vital Signs Temp Pulse Resp BP Pulse Ox 98.0 F 79 18 171/73 H 96 08/06/19 09:04 08/06/19 09:04 08/06/19 09:04 08/06/19 09:04 08/06/19 09:04 Oxygen Flow Rate (L/min) 3 Oxygen Delivery Method Bi-pap Weight: 121 kg Body Mass Index (BMI) 41.8 Finger Stick Blood Glucose 410 Intake and Output for Last 24 Hours 08/04/19 08/05/19 08/06/19 23:59 23:59 23:59 Intake Total 720 / 720 Output Total 500 / 500 Balance 220 / 220 General: Alert, Oriented x3, - - on BIPAP Lungs: Clear to auscultation Cardiovascular: Regular rate Extremities: Edema Musculoskeletal: No Muscle Wasting, - - edema Neurological: Cranial nerves II-XII grossly intact Psych/Mental Status: Normal Affect, Appropriate, Alert and oriented to time, place, person, mood and affect Laboratory Results 08/05/19 22:05: WBC 11.8 H, RBC 3.19 L, Hgb 9.2 L, Hct 29.9 L, MCV 93.7, MCH 28.8, MCHC 30.8 L, RDW Std Deviation 60.2 H, RDW Coeff of Roberto 17.4 H, Plt Count 220, MPV 10.0, Immature Gran % (Auto) 1.000 H, Neut % (Auto) 87.3 H, Lymph % (Auto) 4.3 L, [place] % (Auto) 3.7, Eos % (Auto) 3.3, Baso % (Auto) 0.4, Absolute Neuts (auto) 10.3 H, Absolute Lymphs (auto) 0.51 L, Nucleated RBC % 0, Differential Comment SCANNED 08/05/19 22:05: Sodium 135 L, Potassium 5.1, Chloride 100, Carbon Dioxide 26.0, Anion Gap 9, BUN 63 H, Creatinine 6.17 H, Estim Creat Clear Calc 13.39, Est GFR (MDRD) Af Amer 12 L, Est GFR (MDRD) Non-Af 10 L, BUN/Creatinine Ratio 10.2, Glucose 501 H*, Calcium 8.8, Troponin I < 0.015 08/06/19 03:03: POC Glucose > 500 H* 08/06/19 03:16: Troponin I < 0.015 08/06/19 03:16: Glucose 716 H* 08/06/19 05:52: WBC 8.8, RBC 2.88 L, Hgb 8.2 L, Hct 26.5 L, MCV 92.0, MCH 28.5, MCHC 30.9 L, RDW Std Deviation 58.6 H, RDW Coeff of Roberto 17.3 H, Plt Count 190, MPV 9.9, Immature Gran % (Auto) 1.000 H, Neut % (Auto) 87.9 H, Lymph % (Auto) 5.5 L, [place] % (Auto) 3.6, Eos % (Auto) 1.5, Baso % (Auto) 0.5, Absolute Neuts (auto) 7.7, Absolute Lymphs (auto) 0.48 L, Nucleated RBC % 0, Differential Comment SCANNED, Anisocytosis 2+ 08/06/19 05:52: Troponin I < 0.015 08/06/19 06:59: POC Glucose 390 H 08/06/19 08:35: Troponin I < 0.015 Clinical Impression(s) from Imaging Studies Chest X-Ray 08/05/19 22:45 IMPRESSION: CHF with worsening pulmonary edema and enlarging small bilateral pleural effusions at 2305 Reported and signed by: Yousuf Garcia MD Electronically Signed: Yousuf Garcia, at 23:04 EST Tel , Service support , Current Medications Acetaminophen (Tylenol) 650 mg PO Q6H PRN PRN PRN Reason: Pain Score 1-10/Temp > 100.7 F Albuterol Sulfate (Ventolin Aerosols) 2.5 mg INHALATION Q2H PRN PRN PRN Reason: SOB/Wheezing Amlodipine Besylate (Norvasc) 10 mg PO DAILY [facility] Aspirin (Ecotrin) 81 mg PO DAILY@0800 [facility] Atorvastatin Calcium (Lipitor) 20 mg PO QHS [facility] Collagenase (Santyl) 1 applic TOPICAL DAILY [facility]; Protocol Cyclobenzaprine HCl (Flexeril) 10 mg PO TID PRN PRN PRN Reason: SPASMS Fluticasone Propionate (Flonase Nasal [place]) 1 spray NASAL DAILY [facility] Furosemide (Lasix) 80 mg IV BID [facility] Last Admin: 08/06/19 03:06 Dose: 80 mg Documented by: Gabapentin (Neurontin) 300 mg PO BID [facility] Glucagon () 1 mg IM .X1 PRN PRN Reason: Hypoglycemia Heparin Sodium (Porcine) (Heparin Na) 5,000 unit SC Q8 [facility] Last Admin: 08/06/19 07:03 Dose: 5,000 unit Documented by: Dextrose (Dextrose 10%-Water) 250 mls @ 999 mls/hr IV .Q16M PRN; Protocol PRN Reason: HYPOGLYCEMIA Insulin Glargine (Lantus ([facility])) 40 units SC QHS [facility] Insulin Human Lispro (Humalog Kwikpen ([facility])) 0 unit SC ACHS & 0200 [facility]; Protocol Insulin Human Lispro (Humalog Kwikpen ([facility])) 15 unit SC 0800,1200,1700 [facility] Isosorbide Mononitrate (Imdur) 30 mg PO DAILY [facility] Labetalol HCl (Trandate) 10 mg IV Q4H PRN PRN PRN Reason: SBP > 160 Magnesium Hydroxide (Milk Of Magnesia) 30 ml PO DAILY PRN PRN PRN Reason: Constipation Metoprolol Tartrate (Lopressor (Beta Emmanuel)) 50 mg PO BID [facility] Multivit/Ca Carb/B Cmplx/FA/Prenat (Nephrocaps, Renaphro) 1 capsule PO DAILY [facility] Multivitamins/Minerals (Healthy Eyes) 1 capsule PO DAILY [facility] Nutritional Formula (Lactose Free) (Glucerna Shake) 120 ml PO TIDCM [facility] Ondansetron HCl (Zofran) 4 mg IV Q8H PRN PRN PRN Reason: NAUSEA/VOMITING Pantoprazole Sodium (Protonix) 40 mg PO DAILY [facility] Promethazine HCl (Phenergan Tablet) 25 mg PO TID PRN PRN Reason: VOMITING Sertraline HCl (Zoloft) 25 mg PO DAILY [facility] Sevelamer Carbonate (Renvela) 2,400 mg PO TID [facility] Last Admin: 08/06/19 07:02 Dose: 2,400 mg Documented by: Sodium Chloride () 10 - 40 ml IV UD PRN PRN Reason: SALINE FLUSH Trazodone HCl (Desyrel) 50 mg PO QHS [facility] Last Admin: 08/06/19 03:05 Dose: 50 mg Documented by: Assessment/Plan 1. ESRD HD TTS. Seen on dialysis 2. Acute pulmonary edema, noncompliance with fluid restriction 3. DM2 hyperglycemia 4. HTN BP elevated, resume home meds 5. Morbid obesity 6. SELMA on BIPAP
[2019-08-06] MEDS: Insulin Lispro 100 UNIT/ML INSULN.PEN 15 UNIT SC ×3 (10:43→16:54)
[2019-08-06] MEDS: Insulin Lispro 100 UNIT/ML INSULN.PEN SC ×3 (10:44→21:11)
[2019-08-06 10:48] LABS: Anion Gap 7 (5-15); BUN 32 mg/dL (7-18); BUN/Creat Ratio 9.9 RATIO (10-20); Calcium,Total 8.4 mg/dL (8.5-10.1); Chloride 100 mmol/L (98-107); Creatinine, Serum 3.23 mg/dL (0.70-1.30); Estimated Creatinine Clearance 25.58 ml/min; Glucose 297 mg/dL (74-106); Potassium 3.5 mmol/L (3.5-5.1); Sodium Level 138 mmol/L (136-145)
[2019-08-06] MEDS: Fluticasone 0.05% 1 SPRAY NASAL.SRY NASAL (10:51)
[2019-08-06] MEDS: amLODIPine 10 MG Tablet PO (10:52)
[2019-08-06] MEDS: Pantoprazole Sodium 40 MG Tablet PO (10:52)
[2019-08-06] MEDS: Isosorbide Mononitrate 30 MG Tablet PO (10:52)
[2019-08-06] MEDS: Multivitamin (Healthy Eyes) Capsule 1 CAP PO (10:52)
[2019-08-06] MEDS: Metoprolol Tartrate 50 MG Tablet PO ×2 (10:52→21:12)
[2019-08-06] MEDS: Aspirin E.C. 81 MG Tablet PO (10:52)
[2019-08-06] MEDS: Sertraline 50 MG Tablet 25 MG PO (10:52)
[2019-08-06] MEDS: Collagenase 30gm Tube 1 APPLIC TOPICAL (10:53)
[2019-08-06] MEDS: Gabapentin 300 MG Capsule PO ×2 (10:53→21:09)
[2019-08-06] MEDS: 0.9% Saline Lock 10 ML Syringe IV ×2 (10:54→21:17)
[2019-08-06 10:56] LABS: EST Glomerular Filtration Rate 22 mL/min (>60); Est Glom Filt Rate - Afr Amer 26 mL/min (>60)
[2019-08-06] MEDS: Folic Acid/Vitamin B Comp W-C 1 Capsule 1 CAP PO (10:56)
--- NOTE | 2019-08-06 11:14 | CASEMGMT ---
WILFREDO called [facility] and let Werner Moore on the coverage line know about patient's admission. His wrapper caser is Patricia Minor. Patient gets [employer], 14 meals every other week, and he has a medical alert button. Agatha HAMMER
[2019-08-06 11:20] LABS: Bedside Glucose 308 mg/dL (70-110)
--- NOTE | 2019-08-06 11:45 | CASEMGMT ---
SW spoke with patient and his about Palliative Care. They were open to a referral being made. SW asked patient if her bipap at home was working and he said it was. Patient's said the national van truck driver said patient's O2 is not giving him enough O2. They use [employer]. SW notified RN LIZETTE. WILFREDO called Palliative Care and made a referral. Agatha SHEETS MSW
--- NOTE | 2019-08-06 11:47 | CASEMGMT ---
Per and EMS, pt's home oxygen 'is not working'. Call to Sanju at [facility] and notified at this time. He states that he will get ahold of to have transportation driver/chemistry laboratory technician go out and check pt's concentrator cassidy. Neville RN CM
--- NOTE | 2019-08-06 12:09 | NURSING ---
wound photo: left plantar/lateral foot
[2019-08-06 12:46] LABS: Bedside Glucose 293 mg/dL (70-110)
--- NOTE | 2019-08-06 12:47 | CASEMGMT ---
AMIRAH BAUER Readmission Note Previous Admission: 08.02.2019 Diagnosis: shortness of breath. Oxygen noncompliance. DC Disposition: Home. Pt has services through [facility], LIZETTE Minor. Pt active with [facility]. Current Admission 08.05.19 Presentation: CHF, pt states he ran out of oxygen. Noncompliance with fluid restricition. Pt was compliant with Hemodialysis on Monday, 08.03.19 PCP: Dr. Washburn. Appt was for 08/05/19, however pt was in ER day prior, so did not f/u with PCP. DC PLAN: Home. [employer] notified to check oxygen in home, pt will continue services through [facility] and [facility]. Mary TORRES RN AC
--- NOTE | 2019-08-06 12:51 | CASEMGMT ---
WILFREDO called patient's manager case management with [facility], Patricia Minor. WILFREDO left her a voice mail requesting a return call regarding patient and living situation. Agatha SHEETS MSW
--- NOTE | 2019-08-06 14:14 | PN_ITS ---
<Felipe Stoddardssica - Last Filed: 08/06/19 14:31> Subjective: Patient seen and examined. On BiPAP, undergoing dialysis. Reports improvement in breathing. at bedside. - Physical Exam Vitals/I&O's: Vital Signs Temp Pulse Resp BP Pulse Ox 98.3 F 72 16 152/62 H 97 08/06/19 12:36 08/06/19 12:36 08/06/19 12:36 08/06/19 12:36 08/06/19 12:36 Oxygen Flow Rate (L/min) 4 Oxygen Delivery Method Nasal Cannula Weight: 266 lb 12.149 oz Body Mass Index (BMI) 41.8 Finger Stick Blood Glucose 410 Intake and Output for Last 24 Hours 08/04/19 08/05/19 08/06/19 23:59 23:59 23:59 Intake Total 1220 / 1220 Output Total 700 / 700 Balance 520 / 520 General: Alert, Oriented x3, Cooperative HEENT: Atraumatic, PERRLA, EOMI, Normocephalic Neck: Supple, No JVD, Negative Carotid Bruits Lungs: Clear to auscultation, Diminished Cardiovascular: Regular rate, Regular Rhythm, Normal S1, Normal S2, No murmurs Abdomen: Bowel Sounds Present, Soft, Non Tender, Non-Distended, Obese Extremities: No clubbing, No cyanosis, No edema, Capillary Refill Less than 3 Seconds Skin: No rashes, No breakdown Musculoskeletal: No Tenderness to Palpation of Joints or Extremities Neurological: Cranial nerves II-XII grossly intact, Neuro grossly intact Psych/Mental Status: Normal Affect, Appropriate Laboratory Results 08/05/19 22:05: WBC 11.8 H, RBC 3.19 L, Hgb 9.2 L, Hct 29.9 L, MCV 93.7, MCH 28.8, MCHC 30.8 L, RDW Std Deviation 60.2 H, RDW Coeff of Roberto 17.4 H, Plt Count 220, MPV 10.0, Immature Gran % (Auto) 1.000 H, Neut % (Auto) 87.3 H, Lymph % (Auto) 4.3 L, [place] % (Auto) 3.7, Eos % (Auto) 3.3, Baso % (Auto) 0.4, Absolute Neuts (auto) 10.3 H, Absolute Lymphs (auto) 0.51 L, Nucleated RBC % 0, Differential Comment SCANNED 08/05/19 22:05: Sodium 135 L, Potassium 5.1, Chloride 100, Carbon Dioxide 26.0, Anion Gap 9, BUN 63 H, Creatinine 6.17 H, Estim Creat Clear Calc 13.39, Est GFR (MDRD) Af Amer 12 L, Est GFR (MDRD) Non-Af 10 L, BUN/Creatinine Ratio 10.2, Glucose 501 H*, Calcium 8.8, Troponin I < 0.015 08/06/19 03:03: POC Glucose > 500 H* 08/06/19 03:16: Troponin I < 0.015 08/06/19 03:16: Glucose 716 H* 08/06/19 05:52: WBC 8.8, RBC 2.88 L, Hgb 8.2 L, Hct 26.5 L, MCV 92.0, MCH 28.5, MCHC 30.9 L, RDW Std Deviation 58.6 H, RDW Coeff of Roberto 17.3 H, Plt Count 190, MPV 9.9, Immature Gran % (Auto) 1.000 H, Neut % (Auto) 87.9 H, Lymph % (Auto) 5.5 L, [place] % (Auto) 3.6, Eos % (Auto) 1.5, Baso % (Auto) 0.5, Absolute Neuts (auto) 7.7, Absolute Lymphs (auto) 0.48 L, Nucleated RBC % 0, Differential Comment SCANNED, Anisocytosis 2+ 08/06/19 05:52: Troponin I < 0.015 08/06/19 06:59: POC Glucose 390 H 08/06/19 08:35: Troponin I < 0.015 08/06/19 10:18: Sodium 138, Potassium 3.5, Chloride 100, Carbon Dioxide 31.0, Anion Gap 7, BUN 32 H, Creatinine 3.23 H, Estim Creat Clear Calc 25.58, Est GFR (MDRD) Af Amer 26 L, Est GFR (MDRD) Non-Af 22 L, BUN/Creatinine Ratio 9.9 L, Glucose 297 H, Calcium 8.4 L 08/06/19 10:39: POC Glucose 308 H 08/06/19 12:35: POC Glucose 293 H Current Medications Acetaminophen (Tylenol) 650 mg PO Q6H PRN PRN PRN Reason: Pain Score 1-10/Temp > 100.7 F Albuterol Sulfate (Ventolin Aerosols) 2.5 mg INHALATION Q2H PRN PRN PRN Reason: SOB/Wheezing Amlodipine Besylate (Norvasc) 10 mg PO DAILY [facility] Last Admin: 08/06/19 10:52 Dose: 10 mg Documented by: Aspirin (Ecotrin) 81 mg PO DAILY@0800 [facility] Last Admin: 08/06/19 10:52 Dose: 81 mg Documented by: Atorvastatin Calcium (Lipitor) 20 mg PO QHS [facility] Collagenase (Santyl) 1 applic TOPICAL DAILY [facility]; Protocol Last Admin: 08/06/19 10:53 Dose: 1 applicatio Documented by: Cyclobenzaprine HCl (Flexeril) 10 mg PO TID PRN PRN PRN Reason: SPASMS Fluticasone Propionate (Flonase Nasal [place]) 1 spray NASAL DAILY [facility] Last Admin: 08/06/19 10:51 Dose: 1 spray Documented by: Furosemide (Lasix) 80 mg IV BID [facility] Last Admin: 08/06/19 10:54 Dose: 80 mg Documented by: Gabapentin (Neurontin) 300 mg PO BID [facility] Last Admin: 08/06/19 10:53 Dose: 300 mg Documented by: Glucagon () 1 mg IM .X1 PRN PRN Reason: Hypoglycemia Heparin Sodium (Porcine) (Heparin Na) 5,000 unit SC Q8 [facility] Last Admin: 08/06/19 07:03 Dose: 5,000 unit Documented by: Dextrose (Dextrose 10%-Water) 250 mls @ 999 mls/hr IV .Q16M PRN; Protocol PRN Reason: HYPOGLYCEMIA Insulin Glargine (Lantus (Bkc)) 40 units SC QHS [facility] Insulin Human Lispro (Humalog Kwikpen (Bkc)) 0 unit SC ACHS & 0200 [facility]; Protocol Last Admin: 08/06/19 10:44 Dose: 6 units Documented by: Insulin Human Lispro (Humalog Kwikpen (Bkc)) 15 unit SC 0800,1200,1700 [facility] Last Admin: 08/06/19 12:40 Dose: 15 u Documented by: Isosorbide Mononitrate (Imdur) 30 mg PO DAILY [facility] Last Admin: 08/06/19 10:52 Dose: 30 mg Documented by: Labetalol HCl (Trandate) 10 mg IV Q4H PRN PRN PRN Reason: SBP > 160 Magnesium Hydroxide (Milk Of Magnesia) 30 ml PO DAILY PRN PRN PRN Reason: Constipation Metoprolol Tartrate (Lopressor (Beta Emmanuel)) 50 mg PO BID [facility] Last Admin: 08/06/19 10:52 Dose: 50 mg Documented by: Multivit/Ca Carb/B Cmplx/FA/Prenat (Nephrocaps, Renaphro) 1 capsule PO DAILY [facility] Last Admin: 08/06/19 10:56 Dose: 1 capsule Documented by: Multivitamins/Minerals (Healthy Eyes) 1 capsule PO DAILY [facility] Last Admin: 08/06/19 10:52 Dose: 1 capsule Documented by: Nutritional Formula (Lactose Free) (Glucerna Shake) 120 ml PO TIDCM [facility] Last Admin: 08/06/19 12:39 Dose: Not Given Documented by: Ondansetron HCl (Zofran) 4 mg IV Q8H PRN PRN PRN Reason: NAUSEA/VOMITING Pantoprazole Sodium (Protonix) 40 mg PO DAILY [facility] Last Admin: 08/06/19 10:52 Dose: 40 mg Documented by: Promethazine HCl (Phenergan Tablet) 25 mg PO TID PRN PRN Reason: VOMITING Sertraline HCl (Zoloft) 25 mg PO DAILY [facility] Last Admin: 08/06/19 10:52 Dose: 25 mg Documented by: Sevelamer Carbonate (Renvela) 2,400 mg PO TID [facility] Last Admin: 08/06/19 07:02 Dose: 2,400 mg Documented by: Sodium Chloride () 10 - 40 ml IV UD PRN PRN Reason: SALINE FLUSH Last Admin: 08/06/19 10:54 Dose: 10 ml Documented by: Trazodone HCl (Desyrel) 50 mg PO QHS [facility] Last Admin: 08/06/19 03:05 Dose: 50 mg Documented by: Medical Necessity - Tobacco Use Smoking Status: Never smoker Assessment/Plan 1. Acute on chronic hypoxic respiratory failure secondary to acute on chronic diastolic CHF-continue supplemental oxygen to maintain O2 at or above 90%. Patient wears 2 L nasal cannula at baseline. Continue BiPAP nightly and PRN. 2. Acute on chronic diastolic CHF-continue home aspirin, statin, metoprolol, lisinopril. IV Lasix. Continue dialysis regimen. Strict I&O. Daily weight. Echocardiogram March 2018 with EF 60%, stage II diastolic dysfunction. 3. End-stage renal disease on hemodialysis Monday, , Monday-follows with Dr. Gregorio. 4. Hypertension-continue isosorbide, Lasix, metoprolol, lisinopril. 5. Hyperlipidemia-continue statin regimen. 6. Type 1 diabetes mellitus with neuropathy-continue home insulin regimen. Hemoglobin A1c 03/12/19 12%. 7. Morbid obesity-encourage diet and lifestyle modifications. 8. GERD-continue PPI. 9. Anemia of chronic disease-stable. 10. SELMA-continue BiPAP nightly. 11. Left lateral plantar diabetic ulcer-present on admission. Wound RN following. Continue dressing changes per orders. DVT prophylaxis-heparin subcu Discharge planning: Patient has assistance services in place including home health care, [facility]. Palliative referral made as well. Patient has poor follow-up and noncompliance with prescribed regimen and follow-up despite efforts to provide support. Patient will need pulmonary function studies and re- titration sleep study as outpatient. He has appointment with pulmonary medicine 08/07/19 at 9:15, if he is stable medically for discharge recommend discharging to attend this appointment. This patient was seen by LATASHA West under the supervision of Dr. Cruz. <Gary Cruz F - Last Filed: 08/06/19 18:36> - Physical Exam Vitals/I&O's: Vital Signs Temp Pulse Resp BP Pulse Ox 98.3 F 67 16 149/58 H 94 08/06/19 16:49 08/06/19 16:49 08/06/19 16:49 08/06/19 16:49 08/06/19 16:49 Oxygen Flow Rate (L/min) 4 Oxygen Delivery Method Nasal Cannula Weight: 266 lb 12.149 oz Body Mass Index (BMI) 41.8 Finger Stick Blood Glucose 410 Intake and Output for Last 24 Hours 08/04/19 08/05/19 08/06/19 23:59 23:59 23:59 Intake Total 1220 / 1220 Output Total 700 / 700 Balance 520 / 520 Laboratory Results 08/05/19 22:05: WBC 11.8 H, RBC 3.19 L, Hgb 9.2 L, Hct 29.9 L, MCV 93.7, MCH 28.8, MCHC 30.8 L, RDW Std Deviation 60.2 H, RDW Coeff of Roberto 17.4 H, Plt Count 220, MPV 10.0, Immature Gran % (Auto) 1.000 H, Neut % (Auto) 87.3 H, Lymph % (Auto) 4.3 L, [place] % (Auto) 3.7, Eos % (Auto) 3.3, Baso % (Auto) 0.4, Absolute Neuts (auto) 10.3 H, Absolute Lymphs (auto) 0.51 L, Nucleated RBC % 0, Differential Comment SCANNED 08/05/19 22:05: Sodium 135 L, Potassium 5.1, Chloride 100, Carbon Dioxide 26.0, Anion Gap 9, BUN 63 H, Creatinine 6.17 H, Estim Creat Clear Calc 13.39, Est GFR (MDRD) Af Amer 12 L, Est GFR (MDRD) Non-Af 10 L, BUN/Creatinine Ratio 10.2, Glucose 501 H*, Calcium 8.8, Troponin I < 0.015 08/06/19 03:03: POC Glucose > 500 H* 08/06/19 03:16: Troponin I < 0.015 08/06/19 03:16: Glucose 716 H* 08/06/19 05:52: WBC 8.8, RBC 2.88 L, Hgb 8.2 L, Hct 26.5 L, MCV 92.0, MCH 28.5, MCHC 30.9 L, RDW Std Deviation 58.6 H, RDW Coeff of Roberto 17.3 H, Plt Count 190, MPV 9.9, Immature Gran % (Auto) 1.000 H, Neut % (Auto) 87.9 H, Lymph % (Auto) 5.5 L, [place] % (Auto) 3.6, Eos % (Auto) 1.5, Baso % (Auto) 0.5, Absolute Neuts (auto) 7.7, Absolute Lymphs (auto) 0.48 L, Nucleated RBC % 0, Differential Comment SCANNED, Anisocytosis 2+ 08/06/19 05:52: Troponin I < 0.015 08/06/19 06:59: POC Glucose 390 H 08/06/19 08:35: Troponin I < 0.015 08/06/19 10:18: Sodium 138, Potassium 3.5, Chloride 100, Carbon Dioxide 31.0, Anion Gap 7, BUN 32 H, Creatinine 3.23 H, Estim Creat Clear Calc 25.58, Est GFR (MDRD) Af Amer 26 L, Est GFR (MDRD) Non-Af 22 L, BUN/Creatinine Ratio 9.9 L, Glucose 297 H, Calcium 8.4 L 08/06/19 10:39: POC Glucose 308 H 08/06/19 12:35: POC Glucose 293 H Current Medications Acetaminophen (Tylenol) 650 mg PO Q6H PRN PRN PRN Reason: Pain Score 1-10/Temp > 100.7 F Last Admin: 08/06/19 14:24 Dose: 650 mg Documented by: Albuterol Sulfate (Ventolin Aerosols) 2.5 mg INHALATION Q2H PRN PRN PRN Reason: SOB/Wheezing Amlodipine Besylate (Norvasc) 10 mg PO DAILY [facility] Last Admin: 08/06/19 10:52 Dose: 10 mg Documented by: Aspirin (Ecotrin) 81 mg PO DAILY@0800 [facility] Last Admin: 08/06/19 10:52 Dose: 81 mg Documented by: Atorvastatin Calcium (Lipitor) 20 mg PO QHS [facility] Collagenase (Santyl) 1 applic TOPICAL DAILY [facility]; Protocol Last Admin: 08/06/19 10:53 Dose: 1 applicatio Documented by: Cyclobenzaprine HCl (Flexeril) 10 mg PO TID PRN PRN PRN Reason: SPASMS Fluticasone Propionate (Flonase Nasal [place]) 1 spray NASAL DAILY [facility] Last Admin: 08/06/19 10:51 Dose: 1 spray Documented by: Furosemide (Lasix) 80 mg IV BID [facility] Last Admin: 08/06/19 10:54 Dose: 80 mg Documented by: Gabapentin (Neurontin) 300 mg PO BID [facility] Last Admin: 08/06/19 10:53 Dose: 300 mg Documented by: Glucagon () 1 mg IM .X1 PRN PRN Reason: Hypoglycemia Heparin Sodium (Porcine) (Heparin Na) 5,000 unit SC Q8 [facility] Last Admin: 08/06/19 14:17 Dose: 5,000 unit Documented by: Dextrose (Dextrose 10%-Water) 250 mls @ 999 mls/hr IV .Q16M PRN; Protocol PRN Reason: HYPOGLYCEMIA Insulin Glargine (Lantus (Bkc)) 40 units SC QHS [facility] Insulin Human Lispro (Humalog Kwikpen (Bk)) 0 unit SC ACHS & 0200 [facility]; Protocol Last Admin: 08/06/19 16:53 Dose: 4 units Documented by: Insulin Human Lispro (Humalog Kwikpen (Bkc)) 15 unit SC 0800,1200,1700 [facility] Last Admin: 08/06/19 16:54 Dose: 15 u Documented by: Isosorbide Mononitrate (Imdur) 30 mg PO DAILY [facility] Last Admin: 08/06/19 10:52 Dose: 30 mg Documented by: Labetalol HCl (Trandate) 10 mg IV Q4H PRN PRN PRN Reason: SBP > 160 Magnesium Hydroxide (Milk Of Magnesia) 30 ml PO DAILY PRN PRN PRN Reason: Constipation Metoprolol Tartrate (Lopressor (Beta Emmanuel)) 50 mg PO BID [facility] Last Admin: 08/06/19 10:52 Dose: 50 mg Documented by: Multivit/Ca Carb/B Cmplx/FA/Prenat (Nephrocaps, Renaphro) 1 capsule PO DAILY [facility] Last Admin: 08/06/19 10:56 Dose: 1 capsule Documented by: Multivitamins/Minerals (Healthy Eyes) 1 capsule PO DAILY [facility] Last Admin: 08/06/19 10:52 Dose: 1 capsule Documented by: Nutritional Formula (Lactose Free) (Glucerna Shake) 120 ml PO TIDCM [facility] Last Admin: 08/06/19 16:54 Dose: 60 ml Documented by: Ondansetron HCl (Zofran) 4 mg IV Q8H PRN PRN PRN Reason: NAUSEA/VOMITING Pantoprazole Sodium (Protonix) 40 mg PO DAILY [facility] Last Admin: 08/06/19 10:52 Dose: 40 mg Documented by: Promethazine HCl (Phenergan Tablet) 25 mg PO TID PRN PRN Reason: VOMITING Sertraline HCl (Zoloft) 25 mg PO DAILY [facility] Last Admin: 08/06/19 10:52 Dose: 25 mg Documented by: Sevelamer Carbonate (Renvela) 2,400 mg PO TID [facility] Last Admin: 08/06/19 14:18 Dose: 2,400 mg Documented by: Sodium Chloride () 10 - 40 ml IV UD PRN PRN Reason: SALINE FLUSH Last Admin: 08/06/19 10:54 Dose: 10 ml Documented by: Trazodone HCl (Desyrel) 50 mg PO QHS [facility] Last Admin: 08/06/19 03:05 Dose: 50 mg Documented by: Code Visit Addendum: Dr. Cruz I personally examined the patient and reviewed the chart. I agree with the above. 48-year-old male with a history of HTN, SELMA, type 2 diabetes, stage II diastolic dysfunction presents with acute on chronic hypoxic respiratory failure secondary to acute on chronic diastolic CHF. His most recent echo was in March 2019 with stage II diastolic dysfunction and a 60% EF. We will continue with IV diuresis as well as BiPAP to assist with breathing. Would recommend cutting back on his Norvasc and if we need to can add Coreg for his blood pressure management. Appreciate nephrology assistance with his dialysis e very Monday, , Monday. Inpatient E&M: [id number] Subs Hosp L2
--- NOTE | 2019-08-06 14:14 | CASEMGMT ---
Patient has a Healthcare Power of Emergency Manager and a Healthcare Living Will on file at [facility]. Agatha SHEETS MSW
[2019-08-06] MEDS: Glucerna Shake 120 ML LIQUID PO (16:54)
[2019-08-06 18:15] LABS: Bedside Glucose 255 mg/dL (70-110)
[2019-08-06] MEDS: cycloBENZAPRine HCl 10 MG Tablet PO (18:44)
[2019-08-06] MEDS: Atorvastatin Calcium 20 MG Tablet PO (21:11)
[2019-08-06 21:41] LABS: Bedside Glucose 202 mg/dL (70-110)
[2019-08-06] MEDS: Albuterol 2.5 MG/3 ML VIAL.NEB. INHALATION (22:12)
[2019-08-07] VITALS (15 sets, daily range): BP systolic 130–147; BP diastolic 61–77; PULSE 56–73; RESP 12–20; TEMP 36.3–37.3; O2SAT 92–98
[2019-08-07] MEDS: Insulin Lispro 100 UNIT/ML INSULN.PEN SC ×4 (02:06→21:38)
[2019-08-07 02:10] LABS: Bedside Glucose 195 mg/dL (70-110)
--- NOTE | 2019-08-07 03:45 | CASEMGMT ---
WILFREDO received a call from WILFREDO Dickens with [employer]. She said she is not the SW that saw patient, but she could pass along a message. WILFREDO went over situation with patient's home and a letter for [employer]. She asked that SW let her know when patient is being discharged. Her phone number is [phone]. WILFREDO received a voice mail from Emely, Nursing [employer] with [employer]. She is familiar with patient and asked that SW call her back. Her number is [phone]. Agatha SHEETS MSW
[2019-08-07 04:39] LABS: Hematocrit 25.3 % (40-54); Hemoglobin 7.5 g/dL (13.0-16.5); Mean Corp Hgb Conc 29.6 g/dL (32-36); Mean Corpuscular Hgb 27.4 pg (27.0-32.0); Mean Corpuscular Volume 92.3 fL (80-94); Mean Platelet Vol. 10.1 fl (6.2-12.0); Platelet Count 206 K/mm3 (150-450); RBC Distribution Width CV 17.3 % (11.6-14.6); RBC Distribution Width SD 58.6 fl (35.1-43.9); Red Blood Count 2.74 M/mm3 (4.6-6.2); White Blood Count 7.6 K/mm3 (4.4-11.0)
[2019-08-07 05:13] LABS: Anion Gap 8 (5-15); BUN 46 mg/dL (7-18); BUN/Creat Ratio 10.7 RATIO (10-20); Calcium,Total 8.5 mg/dL (8.5-10.1); Chloride 98 mmol/L (98-107); Creatinine, Serum 4.31 mg/dL (0.70-1.30); EST Glomerular Filtration Rate 16 mL/min (>60); Est Glom Filt Rate - Afr Amer 19 mL/min (>60); Estimated Creatinine Clearance 19.17 ml/min; Glucose 140 mg/dL (74-106); Potassium 3.9 mmol/L (3.5-5.1); Sodium Level 134 mmol/L (136-145)
[2019-08-07] MEDS: Heparin Injection (Vial) 5,000 UNIT/ML VIAL 5000 UNIT SC ×3 (06:33→21:36)
[2019-08-07] MEDS: SEVELAMER CARBONATE 800 MG TABLET 2400 MG PO ×3 (06:34→17:56)
[2019-08-07 07:01] LABS: Bedside Glucose 115 mg/dL (70-110)
[2019-08-07] MEDS: Sertraline 50 MG Tablet 25 MG PO (09:19)
[2019-08-07] MEDS: Metoprolol Tartrate 50 MG Tablet PO ×2 (09:19→21:36)
[2019-08-07] MEDS: Multivitamin (Healthy Eyes) Capsule 1 CAP PO (09:19)
[2019-08-07] MEDS: Folic Acid/Vitamin B Comp W-C 1 Capsule 1 CAP PO (09:20)
[2019-08-07] MEDS: Gabapentin 300 MG Capsule PO ×2 (09:22→21:38)
[2019-08-07] MEDS: Fluticasone 0.05% 1 SPRAY NASAL.SRY NASAL (09:22)
[2019-08-07] MEDS: amLODIPine 5 MG Tablet PO (09:22)
[2019-08-07] MEDS: Pantoprazole Sodium 40 MG Tablet PO (09:22)
[2019-08-07] MEDS: Isosorbide Mononitrate 30 MG Tablet PO (09:22)
[2019-08-07] MEDS: Collagenase 30gm Tube 1 APPLIC TOPICAL (09:24)
[2019-08-07] MEDS: Aspirin E.C. 81 MG Tablet PO (09:24)
[2019-08-07] MEDS: Furosemide 100 MG/10 ML Vial 80 MG IV (09:25)
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
[2019-08-07] MEDS: Insulin Lispro 100 UNIT/ML INSULN.PEN 15 UNIT SC ×2 (12:23→17:55)
[2019-08-07] MEDS: Glucerna Shake 120 ML LIQUID 60 ML PO ×2 (12:37→18:12)
[2019-08-07 13:16] LABS: Bedside Glucose 226 mg/dL (70-110)
--- NOTE | 2019-08-07 13:32 | PN_ITS ---
<Modesta Stoddard - Last Filed: 08/07/19 13:46> Subjective: Patient seen and examined. Ambulating in room. Reports mild improvement in shortness of breath. Denies other current complaints. - Physical Exam Vitals/I&O's: Vital Signs Temp Pulse Resp BP Pulse Ox 99.1 F 61 16 134/77 H 95 08/07/19 09:05 08/07/19 09:19 08/07/19 09:05 08/07/19 09:05 08/07/19 09:05 Oxygen Flow Rate (L/min) 4 Oxygen Delivery Method Bi-pap Weight: 266 lb 8.622 oz Body Mass Index (BMI) 41.8 Finger Stick Blood Glucose 410 Intake and Output for Last 24 Hours 08/05/19 08/06/19 08/07/19 23:59 23:59 23:59 Intake Total 1850 / 1850 0 / 0 Output Total 1100 / 1100 0 / 0 Balance 750 / 750 0 / 0 General: Alert, Oriented x3, Cooperative HEENT: Atraumatic, PERRLA, EOMI, Normocephalic Neck: Supple, No JVD, Negative Carotid Bruits Lungs: Clear to auscultation, Diminished Cardiovascular: Regular rate, Regular Rhythm, Normal S1, Normal S2, No murmurs Abdomen: Bowel Sounds Present, Soft, Non Tender, Non-Distended Extremities: No clubbing, No cyanosis, No edema Skin: No rashes, No breakdown Musculoskeletal: No Tenderness to Palpation of Joints or Extremities Neurological: Cranial nerves II-XII grossly intact, Neuro grossly intact Psych/Mental Status: Normal Affect, Appropriate Laboratory Results 08/06/19 16:52: POC Glucose 255 H 08/06/19 21:02: POC Glucose 202 H 08/07/19 02:00: POC Glucose 195 H 08/07/19 04:30: WBC 7.6, RBC 2.74 L, Hgb 7.5 L, Hct 25.3 L, MCV 92.3, MCH 27.4, MCHC 29.6 L, RDW Std Deviation 58.6 H, RDW Coeff of Roberto 17.3 H, Plt Count 206, MPV 10.1 08/07/19 04:30: Sodium 134 L, Potassium 3.9, Chloride 98, Carbon Dioxide 28.0, Anion Gap 8, BUN 46 H, Creatinine 4.31 H, Estim Creat Clear Calc 19.17, Est GFR (MDRD) Af Amer 19 L, Est GFR (MDRD) Non-Af 16 L, BUN/Creatinine Ratio 10.7, Glucose 140 H, Calcium 8.5 08/07/19 06:50: POC Glucose 115 H 08/07/19 12:21: POC Glucose 226 H Current Medications Acetaminophen (Tylenol) 650 mg PO Q6H PRN PRN PRN Reason: Pain Score 1-10/Temp > 100.7 F Last Admin: 08/06/19 23:48 Dose: 650 mg Documented by: Albuterol Sulfate (Ventolin Aerosols) 2.5 mg INHALATION Q2H PRN PRN PRN Reason: SOB/Wheezing Last Admin: 08/06/19 22:12 Dose: 2.5 mg Documented by: Amlodipine Besylate (Norvasc) 5 mg PO DAILY [facility] Last Admin: 08/07/19 09:22 Dose: 5 mg Documented by: Aspirin (Ecotrin) 81 mg PO DAILY@0800 [facility] Last Admin: 08/07/19 09:24 Dose: 81 mg Documented by: Atorvastatin Calcium (Lipitor) 20 mg PO QHS [facility] Last Admin: 08/06/19 21:11 Dose: 20 mg Documented by: Collagenase (Santyl) 1 applic TOPICAL DAILY [facility]; Protocol Last Admin: 08/07/19 09:24 Dose: 1 applicatio Documented by: Cyclobenzaprine HCl (Flexeril) 10 mg PO TID PRN PRN PRN Reason: SPASMS Last Admin: 08/06/19 18:44 Dose: 10 mg Documented by: Fluticasone Propionate (Flonase Nasal [place]) 1 spray NASAL DAILY [facility] Last Admin: 08/07/19 09:22 Dose: 1 spray Documented by: Furosemide (Lasix) 80 mg IV BID [facility] Last Admin: 08/07/19 09:25 Dose: 80 mg Documented by: Gabapentin (Neurontin) 300 mg PO BID [facility] Last Admin: 08/07/19 09:22 Dose: 300 mg Documented by: Glucagon () 1 mg IM .X1 PRN PRN Reason: Hypoglycemia Heparin Sodium (Porcine) (Heparin Na) 5,000 unit SC Q8 [facility] Last Admin: 08/07/19 06:33 Dose: 5,000 unit Documented by: Dextrose (Dextrose 10%-Water) 250 mls @ 999 mls/hr IV .Q16M PRN; Protocol PRN Reason: HYPOGLYCEMIA Insulin Glargine (Lantus ([facility])) 40 units SC QHS [facility] Last Admin: 08/06/19 21:10 Dose: 40 units Documented by: Insulin Human Lispro (Humalog Kwikpen ([facility])) 0 unit SC ACHS & 0200 [facility]; Protocol Last Admin: 08/07/19 12:24 Dose: 4 units Documented by: Insulin Human Lispro (Humalog Kwikpen ([facility])) 15 unit SC 0800,1200,1700 [facility] Last Admin: 08/07/19 12:23 Dose: 15 u Documented by: Isosorbide Mononitrate (Imdur) 30 mg PO DAILY [facility] Last Admin: 08/07/19 09:22 Dose: 30 mg Documented by: Labetalol HCl (Trandate) 10 mg IV Q4H PRN PRN PRN Reason: SBP > 160 Magnesium Hydroxide (Milk Of Magnesia) 30 ml PO DAILY PRN PRN PRN Reason: Constipation Metoprolol Tartrate (Lopressor (Beta Emmanuel)) 50 mg PO BID [facility] Last Admin: 08/07/19 09:19 Dose: 50 mg Documented by: Multivit/Ca Carb/B Cmplx/FA/Prenat (Nephrocaps, Renaphro) 1 capsule PO DAILY [facility] Last Admin: 08/07/19 09:20 Dose: 1 capsule Documented by: Multivitamins/Minerals (Healthy Eyes) 1 capsule PO DAILY [facility] Last Admin: 08/07/19 09:19 Dose: 1 capsule Documented by: Nutritional Formula (Lactose Free) (Glucerna Shake) 60 ml PO TIDCM [facility] Last Admin: 08/07/19 12:37 Dose: 60 ml Documented by: Ondansetron HCl (Zofran) 4 mg IV Q8H PRN PRN PRN Reason: NAUSEA/VOMITING Pantoprazole Sodium (Protonix) 40 mg PO DAILY [facility] Last Admin: 08/07/19 09:22 Dose: 40 mg Documented by: Promethazine HCl (Phenergan Tablet) 25 mg PO TID PRN PRN Reason: VOMITING Sertraline HCl (Zoloft) 25 mg PO DAILY [facility] Last Admin: 08/07/19 09:19 Dose: 25 mg Documented by: Sevelamer Carbonate (Renvela) 2,400 mg PO TID [facility] Last Admin: 08/07/19 06:34 Dose: 2,400 mg Documented by: Sodium Chloride () 10 - 40 ml IV UD PRN PRN Reason: SALINE FLUSH Last Admin: 08/06/19 21:17 Dose: 10 ml Documented by: Trazodone HCl (Desyrel) 50 mg PO QHS [facility] Last Admin: 08/06/19 21:11 Dose: 50 mg Documented by: Medical Necessity - Tobacco Use Smoking Status: Never smoker Assessment/Plan 1. Acute on chronic hypoxic respiratory failure secondary to acute on chronic diastolic CHF-continue supplemental oxygen to maintain O2 at or above 90%. Patient wears 2 L nasal cannula at baseline. Continue BiPAP nightly and PRN. 2. Acute on chronic diastolic CHF-continue home aspirin, statin, metoprolol, lisinopril. IV Lasix. Plan for transition to home oral Lasix regimen tomorrow. Continue dialysis regimen. Strict I&O. Daily weight. Echocardiogram March 2018 with EF 60%, stage II diastolic dysfunction. 3. End-stage renal disease on hemodialysis Monday, , Monday-follows with Dr. Gregorio. 4. Hypertension-continue isosorbide, Lasix, metoprolol, lisinopril. 5. Hyperlipidemia-continue statin regimen. 6. Type 1 diabetes mellitus with neuropathy-continue home insulin regimen. Hemoglobin A1c 03/12/19 12%. 7. Morbid obesity-encourage diet and lifestyle modifications. 8. GERD-continue PPI. 9. Anemia of chronic disease-stable. 10. SELMA-continue BiPAP nightly. 11. Left lateral plantar diabetic ulcer-present on admission. Wound RN following. Continue dressing changes per orders. DVT prophylaxis-heparin subcu Discharge planning: Patient has assistance services in place including home health care, [facility]. Palliative referral made as well. Patient has poor follow-up and noncompliance with prescribed regimen and follow-up despite efforts to provide support. Patient will need pulmonary function studies and re- titration sleep study as outpatient. Patient had scheduled appointment 08/07/2019 with pulmonary medicine which he was not able to attend due to hospitalization. Pulmonary office notified and rescheduled for tomorrow afternoon, 08/08/2019 at 2:15 PM pending discharge and completion of dialysis. This patient was seen by Modesta Richi, HUMAN FACTORS ENGINEER-C under the supervision of Dr. Cruz. <Gary Cruz F - Last Filed: 08/07/19 16:16> - Physical Exam Vitals/I&O's: Vital Signs Temp Pulse Resp BP Pulse Ox 98.3 F 67 18 130/61 H 95 08/07/19 14:00 08/07/19 15:05 08/07/19 14:00 08/07/19 14:00 08/07/19 14:00 Oxygen Flow Rate (L/min) 2 Oxygen Delivery Method Nasal Cannula Weight: 266 lb 8.622 oz Body Mass Index (BMI) 41.8 Finger Stick Blood Glucose 410 Intake and Output for Last 24 Hours 08/05/19 08/06/19 08/07/19 23:59 23:59 23:59 Intake Total 1850 / 1850 240 / 240 Output Total 1100 / 1100 200 / 200 Balance 750 / 750 40 / 40 Laboratory Results 08/06/19 16:52: POC Glucose 255 H 08/06/19 21:02: POC Glucose 202 H 08/07/19 02:00: POC Glucose 195 H 08/07/19 04:30: WBC 7.6, RBC 2.74 L, Hgb 7.5 L, Hct 25.3 L, MCV 92.3, MCH 27.4, MCHC 29.6 L, RDW Std Deviation 58.6 H, RDW Coeff of Roberto 17.3 H, Plt Count 206, MPV 10.1 08/07/19 04:30: Sodium 134 L, Potassium 3.9, Chloride 98, Carbon Dioxide 28.0, Anion Gap 8, BUN 46 H, Creatinine 4.31 H, Estim Creat Clear Calc 19.17, Est GFR (MDRD) Af Amer 19 L, Est GFR (MDRD) Non-Af 16 L, BUN/Creatinine Ratio 10.7, Glucose 140 H, Calcium 8.5 08/07/19 06:50: POC Glucose 115 H 08/07/19 12:21: POC Glucose 226 H Current Medications Acetaminophen (Tylenol) 650 mg PO Q6H PRN PRN PRN Reason: Pain Score 1-10/Temp > 100.7 F Last Admin: 08/06/19 23:48 Dose: 650 mg Documented by: Albuterol Sulfate (Ventolin Aerosols) 2.5 mg INHALATION Q2H PRN PRN PRN Reason: SOB/Wheezing Last Admin: 08/06/19 22:12 Dose: 2.5 mg Documented by: Amlodipine Besylate (Norvasc) 5 mg PO DAILY [facility] Last Admin: 08/07/19 09:22 Dose: 5 mg Documented by: Aspirin (Ecotrin) 81 mg PO DAILY@0800 [facility] Last Admin: 08/07/19 09:24 Dose: 81 mg Documented by: Atorvastatin Calcium (Lipitor) 20 mg PO QHS [facility] Last Admin: 08/06/19 21:11 Dose: 20 mg Documented by: Collagenase (Santyl) 1 applic TOPICAL DAILY [facility]; Protocol Last Admin: 08/07/19 09:24 Dose: 1 applicatio Documented by: Cyclobenzaprine HCl (Flexeril) 10 mg PO TID PRN PRN PRN Reason: SPASMS Last Admin: 08/06/19 18:44 Dose: 10 mg Documented by: Fluticasone Propionate (Flonase Nasal [place]) 1 spray NASAL DAILY [facility] Last Admin: 08/07/19 09:22 Dose: 1 spray Documented by: Furosemide (Lasix) 40 mg IV BIDLX [facility] Gabapentin (Neurontin) 300 mg PO BID [facility] Last Admin: 08/07/19 09:22 Dose: 300 mg Documented by: Glucagon () 1 mg IM .X1 PRN PRN Reason: Hypoglycemia Heparin Sodium (Porcine) (Heparin Na) 5,000 unit SC Q8 [facility] Last Admin: 08/07/19 14:03 Dose: 5,000 unit Documented by: Dextrose (Dextrose 10%-Water) 250 mls @ 999 mls/hr IV .Q16M PRN; Protocol PRN Reason: HYPOGLYCEMIA Insulin Glargine (Lantus (Bkc)) 40 units SC QHS [facility] Last Admin: 08/06/19 21:10 Dose: 40 units Documented by: Insulin Human Lispro (Humalog Kwikpen ([facility])) 0 unit SC ACHS & 0200 [facility]; Protocol Last Admin: 08/07/19 12:24 Dose: 4 units Documented by: Insulin Human Lispro (Humalog Kwikpen ([facility])) 15 unit SC 0800,1200,1700 [facility] Last Admin: 08/07/19 12:23 Dose: 15 u Documented by: Isosorbide Mononitrate (Imdur) 30 mg PO DAILY [facility] Last Admin: 08/07/19 09:22 Dose: 30 mg Documented by: Labetalol HCl (Trandate) 10 mg IV Q4H PRN PRN PRN Reason: SBP > 160 Magnesium Hydroxide (Milk Of Magnesia) 30 ml PO DAILY PRN PRN PRN Reason: Constipation Metoprolol Tartrate (Lopressor (Beta Emmanuel)) 50 mg PO BID [facility] Last Admin: 08/07/19 09:19 Dose: 50 mg Documented by: Multivit/Ca Carb/B Cmplx/FA/Prenat (Nephrocaps, Renaphro) 1 capsule PO DAILY [facility] Last Admin: 08/07/19 09:20 Dose: 1 capsule Documented by: Multivitamins/Minerals (Healthy Eyes) 1 capsule PO DAILY [facility] Last Admin: 08/07/19 09:19 Dose: 1 capsule Documented by: Nutritional Formula (Lactose Free) (Glucerna Shake) 60 ml PO TIDCM [facility] Last Admin: 08/07/19 12:37 Dose: 60 ml Documented by: Ondansetron HCl (Zofran) 4 mg IV Q8H PRN PRN PRN Reason: NAUSEA/VOMITING Pantoprazole Sodium (Protonix) 40 mg PO DAILY [facility] Last Admin: 08/07/19 09:22 Dose: 40 mg Documented by: Promethazine HCl (Phenergan Tablet) 25 mg PO TID PRN PRN Reason: VOMITING Sertraline HCl (Zoloft) 25 mg PO DAILY [facility] Last Admin: 08/07/19 09:19 Dose: 25 mg Documented by: Sevelamer Carbonate (Renvela) 2,400 mg PO TIDCM [facility] Sodium Chloride () 10 - 40 ml IV UD PRN PRN Reason: SALINE FLUSH Last Admin: 08/06/19 21:17 Dose: 10 ml Documented by: Trazodone HCl (Desyrel) 50 mg PO QHS [facility] Last Admin: 08/06/19 21:11 Dose: 50 mg Documented by: Code Visit Addendum: Dr. Cruz I personally examined the patient and reviewed the chart. I agree with the above. 48-year-old male with a history of HTN/SELMA/type 2 diabetes/stage II diastolic dysfunction presents with acute on chronic hypoxic respiratory failure secondary to acute on chronic diastolic CHF. Most recent echo was in March 2019 with stage II diastolic dysfunction and a 60% EF. We will continue with his IV diuresis as well as BiPAP as needed. Currently today he is feeling better and is maintaining his oxygen saturations on just nasal cannula. He does have a pulmonology appointment tomorrow at 215 therefore we will plan on an early dialysis and then discharge straight to his pulmonary appointment since he does have a history of poor compliance with medication regimens and instructions for self-care. Because of his edema his Norvasc was cut down from 10-5, and can ultimately be discontinued if necessary. Would recommend at that point adding Coreg for his blood pressure management if necessary. Appreciate nephrology assistance with his care. Inpatient E&M: 35708 Subs Hosp L2
--- NOTE | 2019-08-07 14:16 | CASEMGMT ---
Pt was scheduled to have f/u appt with pulmonology this am but appt was cancelled d/t admission. Ladarius MEND WORKER plans to discharge pt home tomorrow after dialysis but would like pt to have f/u appt with pulmonology scheduled for tomorrow at discharge as pt has no showed for last several appts. This RN CM made appt for pt at 1415 08/08/19 and Maria D PCU charge and Galdino RN, aware that pt will need dialysis in the am and then to be discharged to be wheeled to pul appt at 1415 tomorrow. Pt/ are also updated on this as well during interdisciplinary rounds, voice understanding. states that [employer] did come to home yesterday to check oxygen concentrator and states that it is working properly. This RN CM placed call to [facility] and per intake, pt was discharged from their services on 08/01/19 and new order was placed but they did not get to do start of care before pt returned to hospital so they need a new order for HHC for pt at this time. Order placed for SN, PT/OT, SW, and aide at this time. [facility] is aware that pt likely to be discharged tomorrow and that d/c summ/instructions will be faxed at that time. [facility] states they did make a note regarding pt's home situation per Minoo VILLALOBOS accounts to her previously for the SW that will take case. H&P, order, progress notes and demographics faxed to A at this time. Pt/ voiced no further questions/concerns/needs at this time. SStaten AMIRAH BAUER
--- NOTE | 2019-08-07 14:22 | CASEMGMT ---
WILFREDO spoke with patient and his regarding what [facility] said and [facility]. WILFREDO explained SW has not seen their home first hand so SW does not feel comfortable writing a letter. WILFREDO told them WILFREDO will contact JOE VILLALOBOS and Patricia Minor at [facility] regarding possibly writing this letter since they have seen the home. WILFREDO told them they need to call [facility] and schedule an appt with Macy at [facility]. WILFREDO also spoke with Jojo at [facility] and patient signed papers. Jojo said patient and his indicated patient is very depressed. Patient's told Jojo that patient has told her in the past that he wants to . Jojo said she also spoke with them about Hospice, but patient is not ready to give up dialysis. WILFREDO spoke with patient and his . WILFREDO let them know it was relayed to SW that patient is very depressed and has had mentioned he wants to . WILFREDO then explained to patient SW would like to complete a PHQ 9 with him. He was in agreement. Patient scored a 13 which indicates moderate depression. SW asked patient if he currently feels like harming himself or killing himself. He denied having feelings regarding either. SW asked him the last time he felt like dying. He said Monday when he was sick. On Monday he felt awful and he said to his , Can't I just lay down and . Patient again denies any suicidal thoughts or any intentions of hurting himself. Patient is open to counseling. WILFREDO told him WILFREDO can talk with Patricia Minor at [facility] about adding counseling to his services. He was in agreement with this. WILFREDO called Patricia Minor and left her a voice mail letting her know about patient needing counseling and a letter regarding his home condition. SW also let her know patient signed papers with Palliative Care. WILFREDO requested a return call. WILFREDO called JOE and asked that the Lung Puller call SW. WILFREDO then received a call from Pedro Nelson through [facility]. She said patient's case has not been opened yet and there is no SW assigned yet. WILFREDO passed along the message regarding patient's home condition and a letter to [facility]. WILFREDO also left the name and fax number for the individual at [facility] that would need the letter. She will pass along this message. Agatha SHEETS MSW
--- NOTE | 2019-08-07 14:46 | CASEMGMT ---
SW completed a PHQ 9 with patient. He scored a 13 which indicates moderate depression. He did say he has occasionally thought he would be better off . SW did clarify when he felt this way last and that he is not currently suicidal or wanting to harm himself. He said Monday when he felt terrible he said, Can't I just lay down and . SW discussed counseling with patient and he was open to this. SW does not feel patient needs a crisis consult at this time nor does he need a sitter. WILFREDO gave him a list of local counseling agencies. Agatha SHEETS MSW
--- NOTE | 2019-08-07 15:16 | PN.RENAL_ITS ---
Subjective: 1. ESRD HD TTS 2. SOB improved 3. anemia hgb stable 4. Dm2 primary mgmt 5. HTN stable - Physical Exam Vitals/I&O's: Vital Signs Temp Pulse Resp BP Pulse Ox 98.3 F 67 18 130/61 H 95 08/07/19 14:00 08/07/19 14:00 08/07/19 14:00 08/07/19 14:00 08/07/19 14:00 Oxygen Flow Rate (L/min) 2 Oxygen Delivery Method Nasal Cannula Weight: 120.9 kg Body Mass Index (BMI) 41.8 Finger Stick Blood Glucose 410 Intake and Output for Last 24 Hours 08/05/19 08/06/19 08/07/19 23:59 23:59 23:59 Intake Total 1850 / 1850 240 / 240 Output Total 1100 / 1100 200 / 200 Balance 750 / 750 40 / 40 Laboratory Results 08/06/19 16:52: POC Glucose 255 H 08/06/19 21:02: POC Glucose 202 H 08/07/19 02:00: POC Glucose 195 H 08/07/19 04:30: WBC 7.6, RBC 2.74 L, Hgb 7.5 L, Hct 25.3 L, MCV 92.3, MCH 27.4, MCHC 29.6 L, RDW Std Deviation 58.6 H, RDW Coeff of Roberto 17.3 H, Plt Count 206, MPV 10.1 08/07/19 04:30: Sodium 134 L, Potassium 3.9, Chloride 98, Carbon Dioxide 28.0, Anion Gap 8, BUN 46 H, Creatinine 4.31 H, Estim Creat Clear Calc 19.17, Est GFR (MDRD) Af Amer 19 L, Est GFR (MDRD) Non-Af 16 L, BUN/Creatinine Ratio 10.7, Glucose 140 H, Calcium 8.5 08/07/19 06:50: POC Glucose 115 H 08/07/19 12:21: POC Glucose 226 H Current Medications Acetaminophen (Tylenol) 650 mg PO Q6H PRN PRN PRN Reason: Pain Score 1-10/Temp > 100.7 F Last Admin: 08/06/19 23:48 Dose: 650 mg Documented by: Albuterol Sulfate (Ventolin Aerosols) 2.5 mg INHALATION Q2H PRN PRN PRN Reason: SOB/Wheezing Last Admin: 08/06/19 22:12 Dose: 2.5 mg Documented by: Amlodipine Besylate (Norvasc) 5 mg PO DAILY [facility] Last Admin: 08/07/19 09:22 Dose: 5 mg Documented by: Aspirin (Ecotrin) 81 mg PO DAILY@0800 [facility] Last Admin: 08/07/19 09:24 Dose: 81 mg Documented by: Atorvastatin Calcium (Lipitor) 20 mg PO QHS [facility] Last Admin: 08/06/19 21:11 Dose: 20 mg Documented by: Collagenase (Santyl) 1 applic TOPICAL DAILY [facility]; Protocol Last Admin: 08/07/19 09:24 Dose: 1 applicatio Documented by: Cyclobenzaprine HCl (Flexeril) 10 mg PO TID PRN PRN PRN Reason: SPASMS Last Admin: 08/06/19 18:44 Dose: 10 mg Documented by: Fluticasone Propionate (Flonase Nasal [place]) 1 spray NASAL DAILY [facility] Last Admin: 08/07/19 09:22 Dose: 1 spray Documented by: Furosemide (Lasix) 40 mg IV BIDLX [facility] Gabapentin (Neurontin) 300 mg PO BID [facility] Last Admin: 08/07/19 09:22 Dose: 300 mg Documented by: Glucagon () 1 mg IM .X1 PRN PRN Reason: Hypoglycemia Heparin Sodium (Porcine) (Heparin Na) 5,000 unit SC Q8 [facility] Last Admin: 08/07/19 14:03 Dose: 5,000 unit Documented by: Dextrose (Dextrose 10%-Water) 250 mls @ 999 mls/hr IV .Q16M PRN; Protocol PRN Reason: HYPOGLYCEMIA Insulin Glargine (Lantus (Bkc)) 40 units SC QHS [facility] Last Admin: 08/06/19 21:10 Dose: 40 units Documented by: Insulin Human Lispro (Humalog Kwikpen (Bk)) 0 unit SC ACHS & 0200 [facility]; Protocol Last Admin: 08/07/19 12:24 Dose: 4 units Documented by: Insulin Human Lispro (Humalog Kwikpen ([facility])) 15 unit SC 0800,1200,1700 [facility] Last Admin: 08/07/19 12:23 Dose: 15 u Documented by: Isosorbide Mononitrate (Imdur) 30 mg PO DAILY [facility] Last Admin: 08/07/19 09:22 Dose: 30 mg Documented by: Labetalol HCl (Trandate) 10 mg IV Q4H PRN PRN PRN Reason: SBP > 160 Magnesium Hydroxide (Milk Of Magnesia) 30 ml PO DAILY PRN PRN PRN Reason: Constipation Metoprolol Tartrate (Lopressor (Beta Emmanuel)) 50 mg PO BID [facility] Last Admin: 08/07/19 09:19 Dose: 50 mg Documented by: Multivit/Ca Carb/B Cmplx/FA/Prenat (Nephrocaps, Renaphro) 1 capsule PO DAILY [facility] Last Admin: 08/07/19 09:20 Dose: 1 capsule Documented by: Multivitamins/Minerals (Healthy Eyes) 1 capsule PO DAILY [facility] Last Admin: 08/07/19 09:19 Dose: 1 capsule Documented by: Nutritional Formula (Lactose Free) (Glucerna Shake) 60 ml PO TIDCM [facility] Last Admin: 08/07/19 12:37 Dose: 60 ml Documented by: Ondansetron HCl (Zofran) 4 mg IV Q8H PRN PRN PRN Reason: NAUSEA/VOMITING Pantoprazole Sodium (Protonix) 40 mg PO DAILY [facility] Last Admin: 08/07/19 09:22 Dose: 40 mg Documented by: Promethazine HCl (Phenergan Tablet) 25 mg PO TID PRN PRN Reason: VOMITING Sertraline HCl (Zoloft) 25 mg PO DAILY [facility] Last Admin: 08/07/19 09:19 Dose: 25 mg Documented by: Sevelamer Carbonate (Renvela) 2,400 mg PO TID [facility] Last Admin: 08/07/19 14:03 Dose: 2,400 mg Documented by: Sodium Chloride () 10 - 40 ml IV UD PRN PRN Reason: SALINE FLUSH Last Admin: 08/06/19 21:17 Dose: 10 ml Documented by: Trazodone HCl (Desyrel) 50 mg PO QHS [facility] Last Admin: 08/06/19 21:11 Dose: 50 mg Documented by: Medical Necessity - Tobacco Use Smoking Status: Never smoker Assessment/Plan 1. ESRD HD TTS. 2. Acute pulmonary edema, noncompliance with fluid restriction. Oxygenation stable 3. DM2 hyperglycemia 4. HTN stable 5. Anemia hgb 7.5g TERESA on dialysis 6. Morbid obesity 7. SELMA
--- NOTE | 2019-08-07 15:17 | CASEMGMT ---
WILFREDO received a voice mail from Patricia Minor. WILFREDO called her back and left her another voice mail. Agatha SHEETS MSW
--- NOTE | 2019-08-07 15:45 | CASEMGMT ---
WILFREDO received a call from WILFREDO Dickens with [facility]. She said she is not the SW that saw patient, but she could pass along a message. WILFREDO went over situation with patient's home and a letter for [facility]. She asked that SW let her know when patient is being discharged. Her phone number is [phone]. WILFREDO received a voice mail from Emley, Nursing [employer]inner [employer] with [facility]. She is familiar with patient and asked that SW call her back. Her number is [phone]. Agatha SHEETS MSW
[2019-08-07] MEDS: Furosemide 40 MG/4 ML Vial IV (17:56)
[2019-08-07 18:51] LABS: Bedside Glucose 206 mg/dL (70-110)
[2019-08-07] MEDS: Atorvastatin Calcium 20 MG Tablet PO (21:35)
[2019-08-07] MEDS: traZODone 50 MG Tablet PO (21:36)
[2019-08-07] MEDS: Acetaminophen 325 MG Tablet 650 MG PO (21:45)
[2019-08-07 22:01] LABS: Bedside Glucose 199 mg/dL (70-110)
[2019-08-07] MEDS: proMETHazine 25 MG Tablet PO (23:34)
[2019-08-08] VITALS (15 sets, daily range): BP systolic 148–165; BP diastolic 75–87; PULSE 62–69; RESP 12–20; TEMP 36.3–36.8; O2SAT 92–98
[2019-08-08] MEDS: cycloBENZAPRine HCl 10 MG Tablet PO (01:42)
[2019-08-08] MEDS: Insulin Lispro 100 UNIT/ML INSULN.PEN SC (01:48)
[2019-08-08 02:01] LABS: Bedside Glucose 157 mg/dL (70-110)
[2019-08-08 05:47] LABS: Hematocrit 26.3 % (40-54); Mean Corp Hgb Conc 30.4 g/dL (32-36); Mean Corpuscular Hgb 27.1 pg (27.0-32.0); Mean Corpuscular Volume 89.2 fL (80-94); Mean Platelet Vol. 10.1 fl (6.2-12.0); Platelet Count 194 K/mm3 (150-450); RBC Distribution Width CV 16.8 % (11.6-14.6); RBC Distribution Width SD 54.9 fl (35.1-43.9); Red Blood Count 2.95 M/mm3 (4.6-6.2); White Blood Count 6.6 K/mm3 (4.4-11.0)
[2019-08-08 06:05] LABS: Anion Gap 7 (5-15); BUN 62 mg/dL (7-18); BUN/Creat Ratio 11.3 RATIO (10-20); Calcium,Total 8.4 mg/dL (8.5-10.1); Chloride 96 mmol/L (98-107); Creatinine, Serum 5.49 mg/dL (0.70-1.30); EST Glomerular Filtration Rate 12 mL/min (>60); Est Glom Filt Rate - Afr Amer 14 mL/min (>60); Estimated Creatinine Clearance 15.05 ml/min; Glucose 126 mg/dL (74-106); Potassium 5.1 mmol/L (3.5-5.1); Sodium Level 130 mmol/L (136-145)
[2019-08-08] MEDS: Heparin Injection (Vial) 5,000 UNIT/ML VIAL 5000 UNIT SC (06:53)
[2019-08-08 07:01] LABS: Bedside Glucose 121 mg/dL (70-110)
--- NOTE | 2019-08-08 10:40 | PN.RENAL_ITS ---
Subjective: seen at start of dialysis. off bipap. Breathing stable. - Physical Exam Vitals/I&O's: Vital Signs Temp Pulse Resp BP Pulse Ox 98.2 F 65 17 148/82 H 98 08/08/19 03:34 08/08/19 07:40 08/08/19 07:40 08/08/19 03:34 08/08/19 07:40 Oxygen Flow Rate (L/min) 2 Oxygen Delivery Method Bi-pap Weight: 121.5 kg Body Mass Index (BMI) 41.8 Finger Stick Blood Glucose 410 Intake and Output for Last 24 Hours 08/06/19 08/07/19 08/08/19 23:59 23:59 23:59 Intake Total 1850 / 1850 730 / 730 300 / 300 Output Total 1100 / 1100 200 / 200 50 / 50 Balance 750 / 750 530 / 530 250 / 250 General: Alert, Oriented x3 Lungs: Clear to auscultation Cardiovascular: Regular rate Abdomen: Obese Extremities: Edema Laboratory Results 08/07/19 12:21: POC Glucose 226 H 08/07/19 17:53: POC Glucose 206 H 08/07/19 21:25: POC Glucose 199 H 08/08/19 01:45: POC Glucose 157 H 08/08/19 05:19: WBC 6.6, RBC 2.95 L, Hgb 8.0 L, Hct 26.3 L, MCV 89.2, MCH 27.1, MCHC 30.4 L, RDW Std Deviation 54.9 H, RDW Coeff of Roberto 16.8 H, Plt Count 194, MPV 10.1 08/08/19 05:19: Sodium 130 L, Potassium 5.1, Chloride 96 L, Carbon Dioxide 27.0, Anion Gap 7, BUN 62 H, Creatinine 5.49 H, Estim Creat Clear Calc 15.05, Est GFR (MDRD) Af Amer 14 L, Est GFR (MDRD) Non-Af 12 L, BUN/Creatinine Ratio 11.3, Glucose 126 H, Calcium 8.4 L 08/08/19 05:19: Phosphorus 5.0 H 08/08/19 06:54: POC Glucose 121 H Current Medications Acetaminophen (Tylenol) 650 mg PO Q6H PRN PRN PRN Reason: Pain Score 1-10/Temp > 100.7 F Last Admin: 08/07/19 21:45 Dose: 650 mg Documented by: Albuterol Sulfate (Ventolin Aerosols) 2.5 mg INHALATION Q2H PRN PRN PRN Reason: SOB/Wheezing Last Admin: 08/06/19 22:12 Dose: 2.5 mg Documented by: Amlodipine Besylate (Norvasc) 5 mg PO DAILY [facility] Last Admin: 08/07/19 09:22 Dose: 5 mg Documented by: Aspirin (Ecotrin) 81 mg PO DAILY@0800 [facility] Last Admin: 08/07/19 09:24 Dose: 81 mg Documented by: Atorvastatin Calcium (Lipitor) 20 mg PO QHS [facility] Last Admin: 08/07/19 21:35 Dose: 20 mg Documented by: Collagenase (Santyl) 1 applic TOPICAL DAILY [facility]; Protocol Last Admin: 08/07/19 09:24 Dose: 1 applicatio Documented by: Cyclobenzaprine HCl (Flexeril) 10 mg PO TID PRN PRN PRN Reason: SPASMS Last Admin: 08/08/19 01:42 Dose: 10 mg Documented by: Fluticasone Propionate (Flonase Nasal [place]) 1 spray NASAL DAILY [facility] Last Admin: 08/07/19 09:22 Dose: 1 spray Documented by: Furosemide (Lasix) 40 mg IV BIDLX [facility] Last Admin: 08/07/19 17:56 Dose: 40 mg Documented by: Gabapentin (Neurontin) 300 mg PO BID [facility] Last Admin: 08/07/19 21:38 Dose: 300 mg Documented by: Glucagon () 1 mg IM .X1 PRN PRN Reason: Hypoglycemia Heparin Sodium (Porcine) (Heparin Na) 5,000 unit SC Q8 [facility] Last Admin: 08/08/19 06:53 Dose: 5,000 unit Documented by: Dextrose (Dextrose 10%-Water) 250 mls @ 999 mls/hr IV .Q16M PRN; Protocol PRN Reason: HYPOGLYCEMIA Insulin Glargine (Lantus (Bkc)) 40 units SC QHS [facility] Last Admin: 08/07/19 21:48 Dose: 40 units Documented by: Insulin Human Lispro (Humalog Kwikpen (Bkc)) 0 unit SC ACHS & 0200 [facility]; Protocol Last Admin: 08/08/19 06:55 Dose: Not Given Documented by: Insulin Human Lispro (Humalog Kwikpen (Bkc)) 15 unit SC 0800,1200,1700 [facility] Last Admin: 08/07/19 17:55 Dose: 15 u Documented by: Isosorbide Mononitrate (Imdur) 30 mg PO DAILY [facility] Last Admin: 08/07/19 09:22 Dose: 30 mg Documented by: Labetalol HCl (Trandate) 10 mg IV Q4H PRN PRN PRN Reason: SBP > 160 Magnesium Hydroxide (Milk Of Magnesia) 30 ml PO DAILY PRN PRN PRN Reason: Constipation Metoprolol Tartrate (Lopressor (Beta Emmanuel)) 50 mg PO BID [facility] Last Admin: 08/07/19 21:36 Dose: 50 mg Documented by: Multivit/Ca Carb/B Cmplx/FA/Prenat (Nephrocaps, Renaphro) 1 capsule PO DAILY [facility] Last Admin: 08/07/19 09:20 Dose: 1 capsule Documented by: Multivitamins/Minerals (Healthy Eyes) 1 capsule PO DAILY [facility] Last Admin: 08/07/19 09:19 Dose: 1 capsule Documented by: Nutritional Formula (Lactose Free) (Glucerna Shake) 60 ml PO TIDCM [facility] Last Admin: 08/07/19 18:12 Dose: 60 ml Documented by: Ondansetron HCl (Zofran) 4 mg IV Q8H PRN PRN PRN Reason: NAUSEA/VOMITING Pantoprazole Sodium (Protonix) 40 mg PO DAILY [facility] Last Admin: 08/07/19 09:22 Dose: 40 mg Documented by: Promethazine HCl (Phenergan Tablet) 25 mg PO TID PRN PRN Reason: VOMITING Last Admin: 08/07/19 23:34 Dose: 25 mg Documented by: Sertraline HCl (Zoloft) 25 mg PO DAILY [facility] Last Admin: 08/07/19 09:19 Dose: 25 mg Documented by: Sevelamer Carbonate (Renvela) 2,400 mg PO TIDCM [facility] Last Admin: 08/07/19 17:56 Dose: 2,400 mg Documented by: Sodium Chloride () 10 - 40 ml IV UD PRN PRN Reason: SALINE FLUSH Last Admin: 08/06/19 21:17 Dose: 10 ml Documented by: Trazodone HCl (Desyrel) 50 mg PO QHS [facility] Last Admin: 08/07/19 21:36 Dose: 50 mg Documented by: Medical Necessity - Tobacco Use Smoking Status: Never smoker Assessment/Plan 1. ESRD HD TTS. Seen on dialysis 2. Acute pulmonary edema, noncompliance with fluid restriction. 3. DM2 hyperglycemia 4. HTN stable 5. Anemia hgb 8.0g TERESA on dialysis 6. Morbid obesity
--- NOTE | 2019-08-08 11:10 | CASEMGMT ---
WILFREDO returned phone call to Emely Nursing Aws Developer at [facility]. WILFREDO explained situation. She was receptive to someone helping with writing a letter to [facility]. WILFREDO gave her the information needed for [facility]. WILFREDO also received a return call from Patricia at [facility]. She asked if patient applied for [facility] because anytime she brought it up with them they would refuse. They apparently have an issue with someone named Everett at [facility]. WILFREDO told her they told SW they did apply. She at first said she was not sure if she is comfortable writing a letter. SW it just needs to indicate the condition of the home. This WILFREDO would do it, but SW has never been to the home. Regarding counseling she said he would need to do outpatient counseling as home counseling is not offered through waiver. WILFREDO let her know WILFREDO gave him a list of local counseling agencies. Patient is ready for discharge today. WILFREDO notified Patricia Minor and WILFREDO Torres at [facility]. Plan: Home with [facility] which includes a social services analyst. Patient also signed Palliative Care papers. Agatha SHEETS MSW
--- NOTE | 2019-08-08 11:21 | CASEMGMT ---
Addendum entered by Pedrito Hutton 08/08/19 12:56: Discharge instructions faxed to [facility] at this time. Original Note: AMIRAH BAUER NOTE: Pt being discharged today. Call placed to [facility] and they were notified. They stated start of care is scheduled for tomorrow 08/09/19. Macie TORRES RN CM
--- NOTE | 2019-08-08 11:44 | PCM.DC ---
You will use the following diet at home:: Renal (restricted protein/sodium) Your food should be the consistency of: Regular Your liquids should be the consistency of: Regular/Thin Discharge Activity: Return to Normal Activity Allergies/Adverse Reactions: Allergies venom-honey bee [bee venom (honey bee)] Allergy (Verified 08/05/19 21:08) Swelling sulfamethoxazole [From Bactrim] Adverse Reaction (Verified 08/05/19 21:08) Upset Stomach trimethoprim [From Bactrim] Adverse Reaction (Verified 08/05/19 21:08) Upset Stomach Medications to take at Discharge Atorvastatin Calcium [Lipitor] 20 mg PO QHS 10/11/17 Vits A,C,E/Lutein/Minerals [Ocuvite with Lutein Tablet] 1 ea PO DAILY 10/11/17 Folic Acid/Vitamin B Comp W-C [Nephrocaps, Renaphro] 1 cap PO DAILY 10/27/17 albuterol sulfate 90 mcg/actuation aerosol inhaler 2 puff INHALATION Q4H PRN #18 g 02/26/18 Aspirin E.C. [Ecotrin] 81 mg PO DAILY 03/23/18 Cyclobenzaprine HCl 10 mg PO TID PRN PRN 03/23/18 Fluticasone 0.05% [Flonase Nasal [place]] 1 spray NASAL DAILY 03/23/18 Gabapentin [Neurontin] 300 mg PO BID 03/23/18 isosorbide mononitrate 30 mg tablet,extended release 24 hr 30 mg PO DAILY #30 tab 07/24/18 Acetaminophen [Tylenol Tablet] 650 mg PO Q6H PRN PRN tab 09/19/18 Furosemide [Lasix] 40 mg PO BID 03/12/19 Metoprolol Tartrate [Lopressor (beta khoa)] 50 mg PO BID 03/12/19 Omeprazole 40 mg PO DAILY 03/12/19 proMETHazine tablet [Phenergan tablet] 25 mg PO TID PRN 03/13/19 Sevelamer HCl [Renagel] 2,400 mg PO TID #0 03/20/19 Insulin Lispro [Humalog KwikPen] See Protocol SUBCUT ACHS insuln.pen 05/20/19 traZODone [Desyrel] 50 mg PO QHS 07/06/19 Amlodipine [Norvasc] 10 mg PO DAILY #30 tab 07/12/19 Collagenase [Santyl] 1 applic TOPICAL DAILY tube 07/24/19 Sertraline HCl [Zoloft] 25 mg PO DAILY 08/05/19 Acetaminophen [Tylenol Tablet] 650 mg PO Q6H PRN PRN tablet 08/08/19 Insulin Lispro [Humalog KwikPen] 15 unit SC 0800,1200,1700 insuln.pen 08/08/19 Primary Care Physician: Augie Washburn MD [Primary Care Provider] - Please follow up with your Primary Care Physician in: 1-2 weeks Test Results: Test results from this visit will be discussed in further detail at your follow-up appointment, if applicable. Please Follow Up With: Augie Washburn MD Please Follow Up With: Maurice Vieyra MD When: as directed Please Follow Up With: Anca Gregorio DO When: As directed Please Follow Up With: Gavino Bowen DO When: today, keep appointment Proposed Discharge Date: 08/08/19
--- NOTE | 2019-08-08 12:18 | PHA.DC.MR ---
Pharmacy Service has performed discharge medication reconciliation for this patient. No new medications at time of discharge. Medications reviewed are from previously reported home medications. The patient's discharge medication list was reviewed for discrepancies and discrepancies were resolved. Home Medications Atorvastatin Calcium [Lipitor] 20 mg PO QHS 10/11/17 Vits A,C,E/Lutein/Minerals [Ocuvite with Lutein Tablet] 1 ea PO DAILY 10/11/17 Folic Acid/Vitamin B Comp W-C [Nephrocaps, Renaphro] 1 cap PO DAILY 10/27/17 albuterol sulfate 90 mcg/actuation aerosol inhaler 2 puff INHALATION Q4H PRN #18 g 02/26/18 Aspirin E.C. [Ecotrin] 81 mg PO DAILY 03/23/18 Cyclobenzaprine HCl 10 mg PO TID PRN PRN 03/23/18 Fluticasone 0.05% [Flonase Nasal [place]] 1 spray NASAL DAILY 03/23/18 Gabapentin [Neurontin] 300 mg PO BID 03/23/18 isosorbide mononitrate 30 mg tablet,extended release 24 hr 30 mg PO DAILY #30 tab 07/24/18 Furosemide [Lasix] 40 mg PO BID 03/12/19 Metoprolol Tartrate [Lopressor (beta khoa)] 50 mg PO BID 03/12/19 Omeprazole 40 mg PO DAILY 03/12/19 proMETHazine tablet [Phenergan tablet] 25 mg PO TID PRN 03/13/19 Sevelamer HCl [Renagel] 2,400 mg PO TID #0 03/20/19 Insulin Lispro [Humalog KwikPen] See Protocol SUBCUT ACHS insuln.pen 05/20/19 traZODone [Desyrel] 50 mg PO QHS 07/06/19 Amlodipine [Norvasc] 10 mg PO DAILY #30 tab 07/12/19 Collagenase [Santyl] 1 applic TOPICAL DAILY tube 07/24/19 Sertraline HCl [Zoloft] 25 mg PO DAILY 08/05/19 Acetaminophen [Tylenol Tablet] 650 mg PO Q6H PRN PRN tab 08/08/19 Insulin Lispro [Humalog KwikPen] 15 unit SUBCUT 0800,1200,1700 insuln.pen 08/08/19
[2019-08-08 12:25] LABS: Bedside Glucose 123 mg/dL (70-110)
[2019-08-08] MEDS: Aspirin E.C. 81 MG Tablet PO (13:37)
[2019-08-08] MEDS: SEVELAMER CARBONATE 800 MG TABLET 2400 MG PO (13:38)
[2019-08-08] MEDS: Metoprolol Tartrate 50 MG Tablet PO (13:39)
[2019-08-08] MEDS: Fluticasone 0.05% 1 SPRAY NASAL.SRY NASAL (13:39)
[2019-08-08] MEDS: amLODIPine 5 MG Tablet PO (13:40)
[2019-08-08] MEDS: Pantoprazole Sodium 40 MG Tablet PO (13:40)
[2019-08-08] MEDS: Gabapentin 300 MG Capsule PO (13:40)
[2019-08-08] MEDS: Sertraline 50 MG Tablet 25 MG PO (13:41)
[2019-08-08] MEDS: Folic Acid/Vitamin B Comp W-C 1 Capsule 1 CAP PO (13:41)
[2019-08-08] MEDS: Epoetin Alfa epbx 10,000 UNITS/ML 10000 UNIT IV (13:42)
[2019-08-08] MEDS: Collagenase 30gm Tube 1 APPLIC TOPICAL (13:42)
--- NOTE | 2019-08-08 14:05 | PCM.PN.HOSP ---
Reason for Visit: SOB Vitals/I&O's: Vital Signs Temp Pulse Resp BP Pulse Ox 97.3 F L 69 18 160/80 H 92 08/08/19 10:00 08/08/19 13:39 08/08/19 12:00 08/08/19 13:39 08/08/19 12:00 Oxygen Flow Rate (L/min) 2 Oxygen Delivery Method Nasal Cannula Weight: 267 lb 6.731 oz Body Mass Index (BMI) 41.8 Finger Stick Blood Glucose 410 Intake and Output for Last 24 Hours 08/06/19 08/07/19 08/08/19 23:59 23:59 23:59 Intake Total 1850 / 1850 730 / 730 300 / 300 Output Total 1100 / 1100 200 / 200 50 / 50 Balance 750 / 750 530 / 530 250 / 250 Laboratory Results 08/07/19 17:53: POC Glucose 206 H 08/07/19 21:25: POC Glucose 199 H 08/08/19 01:45: POC Glucose 157 H 08/08/19 05:19: WBC 6.6, RBC 2.95 L, Hgb 8.0 L, Hct 26.3 L, MCV 89.2, MCH 27.1, MCHC 30.4 L, RDW Std Deviation 54.9 H, RDW Coeff of Roberto 16.8 H, Plt Count 194, MPV 10.1 08/08/19 05:19: Sodium 130 L, Potassium 5.1, Chloride 96 L, Carbon Dioxide 27.0, Anion Gap 7, BUN 62 H, Creatinine 5.49 H, Estim Creat Clear Calc 15.05, Est GFR (MDRD) Af Amer 14 L, Est GFR (MDRD) Non-Af 12 L, BUN/Creatinine Ratio 11.3, Glucose 126 H, Calcium 8.4 L 08/08/19 05:19: Phosphorus 5.0 H 08/08/19 06:54: POC Glucose 121 H 08/08/19 12:18: POC Glucose 123 H Current Medications Acetaminophen (Tylenol) 650 mg PO Q6H PRN PRN PRN Reason: Pain Score 1-10/Temp > 100.7 F Last Admin: 08/07/19 21:45 Dose: 650 mg Documented by: Albuterol Sulfate (Ventolin Aerosols) 2.5 mg INHALATION Q2H PRN PRN PRN Reason: SOB/Wheezing Last Admin: 08/06/19 22:12 Dose: 2.5 mg Documented by: Amlodipine Besylate (Norvasc) 5 mg PO DAILY [facility] Last Admin: 08/08/19 13:40 Dose: 5 mg Documented by: Aspirin (Ecotrin) 81 mg PO DAILY@0800 [facility] Last Admin: 08/08/19 13:37 Dose: 81 mg Documented by: Atorvastatin Calcium (Lipitor) 20 mg PO QHS [facility] Last Admin: 08/07/19 21:35 Dose: 20 mg Documented by: Collagenase (Santyl) 1 applic TOPICAL DAILY [facility]; Protocol Last Admin: 08/08/19 13:42 Dose: 1 applicatio Documented by: Cyclobenzaprine HCl (Flexeril) 10 mg PO TID PRN PRN PRN Reason: SPASMS Last Admin: 08/08/19 01:42 Dose: 10 mg Documented by: Fluticasone Propionate (Flonase Nasal [place]) 1 spray NASAL DAILY [facility] Last Admin: 08/08/19 13:39 Dose: 1 spray Documented by: Furosemide (Lasix) 40 mg IV Q8 [facility] Gabapentin (Neurontin) 300 mg PO BID [facility] Last Admin: 08/08/19 13:40 Dose: 300 mg Documented by: Glucagon () 1 mg IM .X1 PRN PRN Reason: Hypoglycemia Heparin Sodium (Porcine) (Heparin Na) 5,000 unit SC Q8 [facility] Last Admin: 08/08/19 06:53 Dose: 5,000 unit Documented by: Dextrose (Dextrose 10%-Water) 250 mls @ 999 mls/hr IV .Q16M PRN; Protocol PRN Reason: HYPOGLYCEMIA Insulin Glargine (Lantus (Bkc)) 40 units SC QHS [facility] Last Admin: 08/07/19 21:48 Dose: 40 units Documented by: Insulin Human Lispro (Humalog Kwikpen (Bkc)) 0 unit SC ACHS & 0200 [facility]; Protocol Last Admin: 08/08/19 13:43 Dose: Not Given Documented by: Insulin Human Lispro (Humalog Kwikpen (Bkc)) 15 unit SC 0800,1200,1700 [facility] Last Admin: 08/08/19 11:25 Dose: Not Given Documented by: Isosorbide Mononitrate (Imdur) 30 mg PO DAILY [facility] Last Admin: 08/07/19 09:22 Dose: 30 mg Documented by: Labetalol HCl (Trandate) 10 mg IV Q4H PRN PRN PRN Reason: SBP > 160 Magnesium Hydroxide (Milk Of Magnesia) 30 ml PO DAILY PRN PRN PRN Reason: Constipation Metoprolol Tartrate (Lopressor (Beta Emmanuel)) 50 mg PO BID [facility] Last Admin: 08/08/19 13:39 Dose: 50 mg Documented by: Multivit/Ca Carb/B Cmplx/FA/Prenat (Nephrocaps, Renaphro) 1 capsule PO DAILY [facility] Last Admin: 08/08/19 13:41 Dose: 1 capsule Documented by: Multivitamins/Minerals (Healthy Eyes) 1 capsule PO DAILY [facility] Last Admin: 08/07/19 09:19 Dose: 1 capsule Documented by: Nutritional Formula (Lactose Free) (Glucerna Shake) 60 ml PO TIDCM [facility] Last Admin: 08/08/19 13:38 Dose: Not Given Documented by: Ondansetron HCl (Zofran) 4 mg IV Q8H PRN PRN PRN Reason: NAUSEA/VOMITING Pantoprazole Sodium (Protonix) 40 mg PO DAILY [facility] Last Admin: 08/08/19 13:40 Dose: 40 mg Documented by: Promethazine HCl (Phenergan Tablet) 25 mg PO TID PRN PRN Reason: VOMITING Last Admin: 08/07/19 23:34 Dose: 25 mg Documented by: Sertraline HCl (Zoloft) 25 mg PO DAILY [facility] Last Admin: 08/08/19 13:41 Dose: 25 mg Documented by: Sevelamer Carbonate (Renvela) 2,400 mg PO TIDCM [facility] Last Admin: 08/08/19 13:38 Dose: 2,400 mg Documented by: Sodium Chloride () 10 - 40 ml IV UD PRN PRN Reason: SALINE FLUSH Last Admin: 08/06/19 21:17 Dose: 10 ml Documented by: Trazodone HCl (Desyrel) 50 mg PO QHS [facility] Last Admin: 08/07/19 21:36 Dose: 50 mg Documented by: STROKE Vital Signs/Narrative: Vital Signs Pulse Resp BP BP Pulse Ox 08/08/19 13:39 69 160/80 H 08/08/19 12:00 66 18 154/75 H 92 08/08/19 11:51 68 08/08/19 10:50 93 08/08/19 10:30 65 18 155/80 H Medical Necessity - Tobacco Use Smoking Status: Never smoker
--- NOTE | 2019-08-08 14:10 | DIALYSIS ---
Hemodialysis completed, 4 hours on a 2 K bath. Fluid removed was 5.5 liters. Crit line had a flat profile the entire treatment, despite aggressive fluid removal. Patient was weighed pre and post treatment with the same stand up scale. Post weight was 115.4 kg . His dry weight is 113 per patient. Next dialysis will be Monday at [facility]. Patient was discharged to home via wheelchair almost immediately post treatment. He had an appointment at the pulmonologists office that the volunteer was taking him to via wheelchair. He is aware he should be restricting his fluids and following a renal diet once home. Report Given to Magda MACARIO.
--- NOTE | 2019-08-08 14:16 | PCM.DC.SUM ---
<Zachariah Meza - Last Filed: 08/08/19 14:16> Discharge Date and Diagnosis Date of Admission: 08/05/19 Date of Discharge: 08/08/19 - Primary Discharge Diagnosis Acute on chronic diastolic CHF 2/2 noncompliance with fluid restriction ESRD on hemodialysis HTN HLD T1DM with morbid obesity GERD Chronic anemia SELMA L plantar diabetic ulcer - Secondary Discharge Diagnosis Chronic Problems (Last Reviewed 08/06/19 @ 06:02 by Eze Rivera MD) Noncompliance (Chronic) CHF (congestive heart failure) (Chronic) Abnormal stress test (Chronic) TIA (transient ischemic attack) (Chronic) Pulmonary hypertension (Chronic) Morbid obesity with BMI of 40.0-44.9, adult (Chronic) End stage renal disease on dialysis (Chronic) Peripheral vascular disease (Chronic) Toe fracture, right (Chronic) Ulcer of right foot with fat layer exposed (Chronic) Chronic ulcer of left foot with fat layer exposed (Chronic) Type 2 diabetes mellitus with diabetic polyneuropathy (Chronic) Chronic ulcer of left foot with fat layer exposed (Chronic) Chronic respiratory failure with hypoxia (Chronic) HTN (hypertension) (Chronic) Hyperlipidemia (Chronic) Diabetic neuropathy (Chronic) Anemia (Chronic) SELMA (obstructive sleep apnea) (Chronic) Hospital Course and Treatment Imaging Results: RAD/Chest PA and Lateral IMPRESSION: CHF with worsening pulmonary edema and enlarging small bilateral pleural effusions Consultations 08/06/19 02:08 Consult: Onc/Wound/railroad dining car stewardess Routine Comment: Reason for Consult:: Bilateral feet wound 08/06/19 03:45 Consult: Onc/Wound/railroad dining car stewardess Routine Comment: Nephrology - Jg Operations: None Procedures: Dialysis Summary of Care Provided: Hospital Course: The patient is a 48 year old M with pmhx as above notably ESRD and Chronic diastolic CHF who presented to the ER with increased SOB, chest pain, and LE edema. He was given insulin in the ER for hyperglycemia, and metoprolol for HTN. He appeared to have CHF on CXR and was admitted for acute on chronic diastolic CHF, known EF 60%. He was dialyzed by Dr. Gregorio with aggressive fluid removal. He also makes urine between 150-400 cc / day and was given IV lasix. He was able to be weaned to his baseline O2. He undortunately has a large amount of PO water and ice intake daily. He also is non compliant with compression socks. He frequently has up to 6L fluid removed during dialysis. He was discharged home in stable condition. He has an appointment with his sand control worker today. He will also need follow up with his PCP in 1-2 weeks, nephrology as directed , and with his deburr operator as directed. This patient was seen by Zachariah Meza PA-C under the supervision of Dr. Reyes.[] - Physical Exam Vitals/I&O's: Vital Signs Temp Pulse Resp BP Pulse Ox 97.3 F L 69 18 160/80 H 92 08/08/19 10:00 08/08/19 13:39 08/08/19 12:00 08/08/19 13:39 08/08/19 12:00 Oxygen Flow Rate (L/min) 2 Oxygen Delivery Method Nasal Cannula Weight: 267 lb 6.731 oz Body Mass Index (BMI) 41.8 Finger Stick Blood Glucose 410 Intake and Output for Last 24 Hours 08/06/19 08/07/19 08/08/19 23:59 23:59 23:59 Intake Total 1850 / 1850 730 / 730 300 / 300 Output Total 1100 / 1100 200 / 200 50 / 50 Balance 750 / 750 530 / 530 250 / 250 General: Alert, Oriented x3, Cooperative HEENT: Atraumatic, PERRLA, EOMI, Normocephalic Neck: Supple, No JVD, Negative Carotid Bruits Lungs: Clear to auscultation, Diminished Cardiovascular: Regular rate, No murmurs Abdomen: Bowel Sounds Present, Soft, Non Tender, Obese Extremities: Capillary Refill Less than 3 Seconds, Edema - 2-3+ pitting edema BLE Skin: No rashes, No breakdown Musculoskeletal: No Tenderness to Palpation of Joints or Extremities Neurological: Cranial nerves II-XII grossly intact Psych/Mental Status: Normal Affect, Appropriate, Alert and oriented to time, place, person, mood and affect Laboratory Results 08/07/19 17:53: POC Glucose 206 H 08/07/19 21:25: POC Glucose 199 H 08/08/19 01:45: POC Glucose 157 H 08/08/19 05:19: WBC 6.6, RBC 2.95 L, Hgb 8.0 L, Hct 26.3 L, MCV 89.2, MCH 27.1, MCHC 30.4 L, RDW Std Deviation 54.9 H, RDW Coeff of Roberto 16.8 H, Plt Count 194, MPV 10.1 08/08/19 05:19: Sodium 130 L, Potassium 5.1, Chloride 96 L, Carbon Dioxide 27.0, Anion Gap 7, BUN 62 H, Creatinine 5.49 H, Estim Creat Clear Calc 15.05, Est GFR (MDRD) Af Amer 14 L, Est GFR (MDRD) Non-Af 12 L, BUN/Creatinine Ratio 11.3, Glucose 126 H, Calcium 8.4 L 08/08/19 05:19: Phosphorus 5.0 H 08/08/19 06:54: POC Glucose 121 H 08/08/19 12:18: POC Glucose 123 H Discharge Diet: Renal Diet Discharge Activity: Return to Normal Activity Home Medications: Medications to take at Discharge Atorvastatin Calcium [Lipitor] 20 mg PO QHS 10/11/17 Vits A,C,E/Lutein/Minerals [Ocuvite with Lutein Tablet] 1 ea PO DAILY 10/11/17 Folic Acid/Vitamin B Comp W-C [Nephrocaps, Renaphro] 1 cap PO DAILY 10/27/17 albuterol sulfate 90 mcg/actuation aerosol inhaler 2 puff INHALATION Q4H PRN #18 g 02/26/18 Aspirin E.C. [Ecotrin] 81 mg PO DAILY 03/23/18 Cyclobenzaprine HCl 10 mg PO TID PRN PRN 03/23/18 Fluticasone 0.05% [Flonase Nasal [place]] 1 spray NASAL DAILY 03/23/18 Gabapentin [Neurontin] 300 mg PO BID 03/23/18 isosorbide mononitrate 30 mg tablet,extended release 24 hr 30 mg PO DAILY #30 tab 07/24/18 Furosemide [Lasix] 40 mg PO BID 03/12/19 Metoprolol Tartrate [Lopressor (beta khoa)] 50 mg PO BID 03/12/19 Omeprazole 40 mg PO DAILY 03/12/19 proMETHazine tablet [Phenergan tablet] 25 mg PO TID PRN 03/13/19 Sevelamer HCl [Renagel] 2,400 mg PO TID #0 03/20/19 Insulin Lispro [Humalog KwikPen] See Protocol SUBCUT ACHS insuln.pen 05/20/19 traZODone [Desyrel] 50 mg PO QHS 07/06/19 Amlodipine [Norvasc] 10 mg PO DAILY #30 tab 07/12/19 Collagenase [Santyl] 1 applic TOPICAL DAILY tube 07/24/19 Sertraline HCl [Zoloft] 25 mg PO DAILY 08/05/19 Acetaminophen [Tylenol Tablet] 650 mg PO Q6H PRN PRN tab 08/08/19 Insulin Lispro [Humalog KwikPen] 15 unit SUBCUT 0800,1200,1700 insuln.pen 08/08/19 Primary Care Physician: Augie Washburn MD [Primary Care Provider] - Please follow up with your Primary Care Physician in: 1-2 weeks Please Follow Up With: Augie Washburn MD Please Follow Up With: Maurice Vieyra MD When: as directed Please Follow Up With: Anca Gregorio DO When: As directed Please Follow Up With: Gavino Bowen DO When: today, keep appointment Disposition: Home Minutes spent on discharge:: 40 Patient Condition:: Stable Medical Necessity - Tobacco Use Smoking Status: Never smoker Meaningful Use Info Meaningful Use Diagnoses (Choose all that apply): CHF - CHF ERICKA/ARB ordered at discharge?: No Reason ERICKA/ARB not ordered?: Worsening renal disease Documented LVEF (%): 60 <Anaya Reyes - Last Filed: 08/08/19 14:55> Discharge Date and Diagnosis - Secondary Discharge Diagnosis Chronic Problems (Last Reviewed 08/08/19 @ 14:36 by Miriam Mix NP-C) Noncompliance (Chronic) CHF (congestive heart failure) (Chronic) Abnormal stress test (Chronic) TIA (transient ischemic attack) (Chronic) Pulmonary hypertension (Chronic) Morbid obesity with BMI of 40.0-44.9, adult (Chronic) End stage renal disease on dialysis (Chronic) Peripheral vascular disease (Chronic) Toe fracture, right (Chronic) Ulcer of right foot with fat layer exposed (Chronic) Chronic ulcer of left foot with fat layer exposed (Chronic) Type 2 diabetes mellitus with diabetic polyneuropathy (Chronic) Chronic ulcer of left foot with fat layer exposed (Chronic) Chronic respiratory failure with hypoxia (Chronic) HTN (hypertension) (Chronic) Hyperlipidemia (Chronic) Diabetic neuropathy (Chronic) Anemia (Chronic) SELMA (obstructive sleep apnea) (Chronic) Hospital Course and Treatment Consultations 08/06/19 02:08 Consult: Onc/Wound/railroad dining car stewardess Routine Comment: Reason for Consult:: Bilateral feet wound 08/06/19 03:45 Consult: Onc/Wound/railroad dining car stewardess Routine Comment: Summary of Care Provided: This patient was seen in conjunction with BENJI Wooten. I have independently interviewed and examined the patient and reviewed pertinent historical, laboratory, and other data. Please refer to BENJI Wooten note for his patient's presentation, findings, and recommendations. I have reviewed and his note and concur with his documentation 48-year-old male with multiple comorbidities including ESRD on hemodialysis who presented with progressive shortness of breath, chest pain and lower extremity edema. Patient was admitted and had aggressive fluid removal. He was also managed on Lasix. Patient has been non-compliant with his fluid intake and salt intake. He had dialysis done on the day of his discharge. He was discharged to follow-up in the outpatient with his sand control worker. On the day of discharge, he denied any new complaints. I spent quite an amount of time at the bedside educating him on being compliant with his medications, hemodialysis and his diet. Physical Exam: Gen:Alert, oriented x3 not pale, not jaundiced CVS:HS I +II, regular, no murmurs RESP: Diminished at lung bases GI: BS present and normal, soft, nontender, no palpable organs EXT:No edema - Physical Exam Vitals/I&O's: Vital Signs Temp Pulse Resp BP Pulse Ox 97.4 F L 69 18 160/80 H 92 08/08/19 10:52 08/08/19 13:39 08/08/19 12:00 08/08/19 13:39 08/08/19 12:00 Oxygen Flow Rate (L/min) 2 Oxygen Delivery Method Nasal Cannula Weight: 121.3 kg Body Mass Index (BMI) 41.8 Finger Stick Blood Glucose 410 Intake and Output for Last 24 Hours 08/06/19 08/07/19 08/08/19 23:59 23:59 23:59 Intake Total 1850 / 1850 730 / 730 500 / 500 Output Total 1100 / 1100 200 / 200 5600 / 5600 Balance 750 / 750 530 / 530 -5100 / -5100 Laboratory Results 08/07/19 17:53: POC Glucose 206 H 08/07/19 21:25: POC Glucose 199 H 08/08/19 01:45: POC Glucose 157 H 08/08/19 05:19: WBC 6.6, RBC 2.95 L, Hgb 8.0 L, Hct 26.3 L, MCV 89.2, MCH 27.1, MCHC 30.4 L, RDW Std Deviation 54.9 H, RDW Coeff of Roberto 16.8 H, Plt Count 194, MPV 10.1 08/08/19 05:19: Sodium 130 L, Potassium 5.1, Chloride 96 L, Carbon Dioxide 27.0, Anion Gap 7, BUN 62 H, Creatinine 5.49 H, Estim Creat Clear Calc 15.05, Est GFR (MDRD) Af Amer 14 L, Est GFR (MDRD) Non-Af 12 L, BUN/Creatinine Ratio 11.3, Glucose 126 H, Calcium 8.4 L 08/08/19 05:19: Phosphorus 5.0 H 08/08/19 06:54: POC Glucose 121 H 08/08/19 12:18: POC Glucose 123 H Code Visit Inpatient E&M: 85159 Disch Hosp
--- NOTE | 2019-08-08 14:27 | NURSING ---
dialysis completed removed 5500cc fluid, reviewed discharge instructions with patient & , voiced understanding, taken with wheelchair with oxygen per escort to dr alcantar's office appointment, present
== END 2019-08-08 14:12 | disposition home or self-care (01) | DRG 291 ==
LOC: ED 21:28 → PCU 08-06 00:09
PROVIDERS: Family Medicine; Internal Medicine Nephrology; Nurse Practitioner Family; Admitting Provider Hospitalist; Emergency Provider Emergency Medicine; PCP Internal Medicine; Visit Provider Internal Medicine
DX: I13.2 Hypertensive heart and chronic kidney disease with heart failure and with stage 5 chronic kidney disease, or end stage renal disease (principal); N18.6 End stage renal disease; I50.33 Acute on chronic diastolic (congestive) heart failure; J96.21 Acute and chronic respiratory failure with hypoxia; I16.1 Hypertensive emergency; Z68.41 Body mass index [BMI] 40.0-44.9, adult; J81.1 Chronic pulmonary edema; E66.01 Morbid (severe) obesity due to excess calories; G47.33 Obstructive sleep apnea (adult) (pediatric); K21.9 Gastro-esophageal reflux disease without esophagitis; Z99.2 Dependence on renal dialysis; E78.5 Hyperlipidemia, unspecified; I27.20 Pulmonary hypertension, unspecified; Z91.11 Patient's noncompliance with dietary regimen; D63.8 Anemia in other chronic diseases classified elsewhere; Z79.4 Long term (current) use of insulin; L97.522 Non-pressure chronic ulcer of other part of left foot with fat layer exposed; E11.621 Type 2 diabetes mellitus with foot ulcer; E11.40 Type 2 diabetes mellitus with diabetic neuropathy, unspecified; Z99.81 Dependence on supplemental oxygen; E11.22 Type 2 diabetes mellitus with diabetic chronic kidney disease
CPT/HCPCS: 36415; 71046; 80048; 82947; 82962; 84100; 84484; 85025; 85027; 90937; 93005; 94002; 94003; 94640; 97802; 97803; 99251; 99284; 99285; J7030; A4216; G0257; G0463; J1940; Q5106

== ENCOUNTER 2019-08-08 21:52 | Inpatient (IN) | payer MEDICARE, MEDICAID, SELFPAY ==
[2019-08-08 14:32] VITALS: BMI 41.8
[2019-08-08 21:54] VITALS: BP 161/71; PULSE 76; RESP 20; TEMP 36.6; O2SAT 86; BMI 42.0
[2019-08-08 21:59] VITALS: O2SAT 97
--- NOTE | 2019-08-08 22:38 | EKG12_ITS ---
Test Reason : SOB Blood Pressure : / mmHG Vent. Rate : 075 BPM Atrial Rate : 075 BPM P-R Int : 150 ms QRS Dur : 088 ms QT Int : 410 ms P-R-T Axes : 039 006 051 degrees QTc Int : 457 ms Normal sinus rhythm Normal ECG Confirmed by MORGAN LOMELI, IKE ([id number]), market editor DEREK KEARNS ([id number]) on 08/12/2019 10:30:47 AM Referred By: OMAYRA Confirmed By:KENNEDY MORA MD
--- NOTE | 2019-08-08 22:42 | RAD_ITS ---
STUDY: X-RAY CHEST REASON FOR EXAM: Male, 48 years old. SOB TECHNIQUE: Single frontal view of the chest. COMPARISON: August 05, 2019 FINDINGS: There are persistent prominent interstitial markings. There is cardiomegaly. There is prominence of the pulmonary hilar arteries and peripheral pulmonary arteries, consistent with congestive heart failure (CHF). Normal visualized aortic arch and descending thoracic aorta. Normal visualized thoracic spine. Normal visualized ribs, clavicles, and shoulders. There is no demonstrated abnormality of the visualized soft tissue structures of the upper abdomen. RAD/Chest 1 View (Portable) IMPRESSION: Findings suggestive of congestive heart failure. Electronically Signed: Poonam Reyes MD at 22:56 EST Tel , Service support ,
[2019-08-08 23:01] LABS: Absolute Lymphocyte Count 0.62 X10^3/uL (0.83-4.51); Absolute Neutrophil Count 5.4 X10^3/uL (2.0-7.7); Basophil# 0.06 X10^3/uL; Basophil% 0.9 % (0-1); Eosinophil# 0.42 X10^3/uL; Eosinophils% 6.1 % (0-5); Hematocrit 28.5 % (40-54); Hemoglobin 8.6 g/dL (13.0-16.5); Lymphocyte # 0.62 X10^3/ul (4.0); Mean Corp Hgb Conc 30.2 g/dL (32-36); Mean Corpuscular Hgb 27.5 pg (27.0-32.0); Mean Corpuscular Volume 91.1 fL (80-94); Mean Platelet Vol. 9.8 fl (6.2-12.0); Monocyte# 0.38 X10^3/uL; Monocyte% 5.5 % (0-10); NRBC Flagged by Analyzer 0 % (0-5); Neutrophil # 5.35 X10^3/uL (2.7-7.7); Neutrophil % 77.6 % (47-70); Platelet Count 212 K/mm3 (150-450); RBC Distribution Width CV 16.8 % (11.6-14.6); RBC Distribution Width SD 55.8 fl (35.1-43.9); Red Blood Count 3.13 M/mm3 (4.6-6.2); White Blood Count 6.9 K/mm3 (4.4-11.0)
[2019-08-08] MEDS: Ondansetron 4 MG/2 ML Vial IV (23:13)
[2019-08-08 23:22] LABS: Anion Gap 5 (5-15); BUN 36 mg/dL (7-18); BUN/Creat Ratio 9.5 RATIO (10-20); Chloride 96 mmol/L (98-107); Creatinine, Serum 3.78 mg/dL (0.70-1.30); EST Glomerular Filtration Rate 18 mL/min (>60); Est Glom Filt Rate - Afr Amer 22 mL/min (>60); Estimated Creatinine Clearance 21.86 ml/min; Glucose 330 mg/dL (74-106); Potassium 4.8 mmol/L (3.5-5.1); Sodium Level 130 mmol/L (136-145)
--- NOTE | 2019-08-08 23:27 | ED.DCSUM_ITS ---
- ER Visit Summary Date of Service: 08/08/19 Chief Complaint: [Shortness of breath] History of Present Illness: The patient is a 48 M [presents the emergency department complaint of shortness of breath that started today. Patient was just discharged from the hospital today after admission for CHF. Patient states that he did not feel like he was ready to go home.] Patient describes some mild chest discomfort and nausea. Patient states that while walking around with 2 L of oxygen his O2 sats been ranging between 70 and 84%. Patient brought to ER by EMS for evaluation. Patient states that he did go to dialysis today and he took 5 L of fluid off of him. Patient has history of CHF, diabetes, high cholesterol, pulmonary hypertension, end-stage renal disease, and obstructive sleep apnea. He complains of severe dyspnea with minimal activity. Physical Examination: [HEENT-PERRLA, EOMI. Cranial nerves II through XII grossly intact. TMs clear. Mucous membranes moist. No adenopathy. Cardiovascular-regular rate and rhythm without murmur or ectopy Lungs-patient has rales in both bases. No accessory muscle use or retractions. Abdomen-normoactive bowel sounds, soft, nontender, no rebound or rigidity, no peritoneal signs. Extremities-intact ?4, normal range of motion, normal pulses, atraumatic. Patient has +2 edema both lower extremities.] Test Results: [EKG obtained showed sinus rhythm with a ventricular rate of 75 bpm with no acute ST segment changes. CBC with differential again 6.9, hemoglobin 8.6, hematocrit 28.5, platelets 312. Troponin was less than 0.015. Chemistries were unremarkable. BUN was 36 and creatinine 3.78. Chest x-ray shows CHF.] Emergency Department Course and Treatment: [Patient was given Lasix 80 mg IV. Patient was placed on 3 L nasal cannula O2 and his O2 sat ranges from 89 to 90%.] Treatment Plan: [Admit for further management of his hypoxemia and CHF] Disposition: [Admit] Impression: [CHF Hypoxemia Chest pain] This note was generated with [employer] dictation software. It may contain incorrect words, spelling, and punctuation that were not noted in review of the chart prior to signing ED Disposition - Plan for ED Patient: Referrals: Augie Washburn MD [Primary Care Provider] -
[2019-08-08 23:32] LABS: BNP,B-Type NATRIURETIC PEPTIDE 490.4 pg/mL (0-100)
[2019-08-08] MEDS: Aspirin 81 MG TAB.CHEW 324 MG PO (23:47)
[2019-08-08] MEDS: Furosemide 100 MG/10 ML Vial 80 MG IV (23:48)
[2019-08-09] VITALS (18 sets, daily range): BP systolic 131–156; BP diastolic 61–81; PULSE 64–78; RESP 12–20; TEMP 36.5–36.8; O2SAT 87–98; BMI 40.4; BMI 40.5
--- NOTE | 2019-08-09 00:52 | HP.PCM_ITS ---
Problem List (1) Noncompliance Status: Chronic (2) CHF (congestive heart failure) Status: Acute Qualifiers: Heart failure type: diastolic Heart failure chronicity: chronic Qualified Code(s): I50.32 - Chronic diastolic (congestive) heart failure (3) Abnormal stress test Status: Inactive (4) TIA (transient ischemic attack) Status: Chronic Qualifiers: Transient cerebral ischemia type: unspecified Qualified Code(s): G45.9 - Transient cerebral ischemic attack, unspecified (5) Pulmonary hypertension Status: Chronic (6) Morbid obesity with BMI of 40.0-44.9, adult Status: Chronic (7) End stage renal disease on dialysis Status: Chronic (8) Peripheral vascular disease Status: Chronic (9) Toe fracture, right Status: Chronic Qualifiers: Toe: lesser toe Fracture type: closed Phalanx: proximal Fracture alignment: nondisplaced (10) Ulcer of right foot with fat layer exposed Status: Chronic (11) Chronic ulcer of left foot with fat layer exposed Status: Chronic (12) Type 2 diabetes mellitus with diabetic polyneuropathy Status: Chronic 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 use Qualified Code(s): E11.42 - Type 2 diabetes mellitus with diabetic polyneuropathy; 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 (13) Chronic ulcer of left foot with fat layer exposed Status: Chronic (14) Chronic respiratory failure with hypoxia Status: Chronic (15) HTN (hypertension) Status: Chronic Qualifiers: Hypertension type: essential hypertension Qualified Code(s): I10 - Essential (primary) hypertension (16) Hyperlipidemia Status: Chronic Qualifiers: Hyperlipidemia type: unspecified Qualified Code(s): E78.5 - Hyperlipidemia, unspecified (17) Diabetic neuropathy Status: Chronic Qualifiers: Diabetes mellitus type: type 2 (18) Anemia Status: Chronic Qualifiers: Anemia type: unspecified type Qualified Code(s): D64.9 - Anemia, unspecified (19) SELMA (obstructive sleep apnea) Status: Chronic History of Present Illness Date of Admission: 08/08/19 Chief Complaint: sob The patient is a 48 year old M with a significant history of hypertension; obstructive sleep apnea; type 2 diabetes; stage II diastolic dysfunction who presented to emergency department with shortness of breath. Associated with his symptoms is chest pain and dizziness. Reportedly his oxygen saturation was about 75% on his home 2 L of oxygen. Of note patient was discharged from the hospital on the same day of presentation. And after discharge he also was seen at the complaint supervisor office. Pharmacological stress test on 03/18/2019 was normal. Past Medical History Past Medical History (Chronic Problems): Chronic Problems (Last Reviewed 08/09/19 @ 01:12 by Eze Rivera MD) Noncompliance (Chronic) TIA (transient ischemic attack) (Chronic) Pulmonary hypertension (Chronic) Morbid obesity with BMI of 40.0-44.9, adult (Chronic) End stage renal disease on dialysis (Chronic) Peripheral vascular disease (Chronic) Toe fracture, right (Chronic) Ulcer of right foot with fat layer exposed (Chronic) Chronic ulcer of left foot with fat layer exposed (Chronic) Type 2 diabetes mellitus with diabetic polyneuropathy (Chronic) Chronic ulcer of left foot with fat layer exposed (Chronic) Chronic respiratory failure with hypoxia (Chronic) HTN (hypertension) (Chronic) Hyperlipidemia (Chronic) Diabetic neuropathy (Chronic) Anemia (Chronic) SELMA (obstructive sleep apnea) (Chronic) Medical History: Medical History (Last Reviewed 08/09/19 @ 01:12 by Eze Rivera MD) Chronic respiratory failure with hypoxia (Chronic) J96.11 HTN (hypertension) (Chronic) I10 Hyperlipidemia (Chronic) E78.5 Diabetic neuropathy (Chronic) E11.40 Anemia (Chronic) D64.9 SELMA (obstructive sleep apnea) (Chronic) G47.33 ESRD (end stage renal disease) on dialysis N18.6, Z99.2 cataract surgery, l eye Morbid obesity E66.01 Type 2 diabetes mellitus with other diabetic kidney complication E11.29 dx : age 16 last exacerbation : dka : never hypoglycemic episode : 2012 er visit : 2013 Allergies venom-honey bee [bee venom (honey bee)] Allergy (Verified 08/08/19 22:01) Swelling sulfamethoxazole [From Bactrim] Adverse Reaction (Verified 08/08/19 22:01) Upset Stomach trimethoprim [From Bactrim] Adverse Reaction (Verified 08/08/19 22:01) Upset Stomach Home Medications: Ambulatory Orders Medication Instructions Recorded Atorvastatin Calcium [Lipitor] 20 mg PO QHS 10/11/17 Vits A,C,E/Lutein/Minerals 1 ea PO DAILY 10/11/17 [Ocuvite with Lutein Tablet] Folic Acid/Vitamin B Comp W-C 1 cap PO DAILY 10/27/17 [Nephrocaps, Renaphro] albuterol sulfate 90 mcg/actuation 2 puff INHALATION Q4H PRN #18 g 02/26/18 aerosol inhaler Aspirin E.C. [Ecotrin] 81 mg PO DAILY 03/23/18 Cyclobenzaprine HCl 10 mg PO TID PRN PRN 03/23/18 Fluticasone 0.05% [Flonase Nasal 1 spray NASAL DAILY 03/23/18 [place]] Gabapentin [Neurontin] 300 mg PO BID 03/23/18 isosorbide mononitrate 30 mg 30 mg PO DAILY #30 tab 07/24/18 tablet,extended release 24 hr Furosemide [Lasix] 40 mg PO BID 03/12/19 Metoprolol Tartrate [Lopressor 50 mg PO BID 03/12/19 (beta emmanuel)] Omeprazole 40 mg PO DAILY 03/12/19 proMETHazine tablet [Phenergan 25 mg PO TID PRN 03/13/19 tablet] Sevelamer HCl [Renagel] 2,400 mg PO TID #0 03/20/19 Insulin Lispro [Humalog KwikPen] See Protocol SUBCUT ACHS 05/20/19 insuln.pen traZODone [Desyrel] 50 mg PO QHS 07/06/19 Amlodipine [Norvasc] 10 mg PO DAILY #30 tab 07/12/19 Collagenase [Santyl] 1 applic TOPICAL DAILY tube 07/24/19 Sertraline HCl [Zoloft] 25 mg PO DAILY 08/05/19 Acetaminophen [Tylenol Tablet] 650 mg PO Q6H PRN PRN tab 08/08/19 Insulin Lispro [Humalog KwikPen] 15 unit SUBCUT 0800,1200,1700 08/08/19 insuln.pen Surgical History: Surgical History (Last Reviewed 08/09/19 @ 01:12 by Eze Rivera MD) S/P tonsillectomy Z90.89 dialysis fistula Rt Arm Surgical History: tonsillectomy, - - Colectomy, right upper extremity aVF, right lower extremity angioplasty, right fifth ray resection. Psychiatric History: No pertinent psych hx Lives: Spouse/ Significant Other Smoking Status: Never smoker - *Family History Maternal Family History: Family History (Last Reviewed 02/07/20 @ 01:12 by Eze Rivera MD) Mother Hypertension Heart disease Diabetes Father Hypertension Heart disease Brother Heart disease History Items: Diabetes, Heart Disease, Hypertension, Renal Disease Paternal Family History: Family History (Last Reviewed 08/09/19 @ 01:12 by Eze Rivera MD) Mother Hypertension Heart disease Diabetes Father Hypertension Heart disease Brother Heart disease History Items: Cancer - liver, Diabetes, Heart Disease Review of Systems Constitutional: Denies: Chills, Fever, Weight Change HEENT: Denies: Head Aches, Sinus Congestion, Sinus Drainage Cardiovascular: Reports: Chest Pain. Denies: Palpitations Respiratory: Reports: Shortness of Breath. Denies: Cough Gastrointestinal: Denies: Abdominal Pain, Nausea, Vomiting Genitourinary: Denies: Dysuria Musculoskeletal: Denies: Joint Pain, Joint Tenderness Skin: Denies: Rash, Wounds Neurological: Denies: Numbness, Tingling, Focal weakness Psychiatric: Denies: Anxiety, Depression, Homicidal Ideations, Suicidal Ideations Hematologic/ Lymphatic: Denies: Easy Bruising, Easy Bleeding VTE Information - Inpt Only VTE Present on Admission: No VTE Mechan Device Prophylaxis: None VTE Pharm Prophylaxis ordered?: Yes - Physical Exam Vitals/I&O's: Vital Signs Temp Pulse Resp BP Pulse Ox 97.9 F 72 18 140/81 H 91 08/08/19 21:54 08/09/19 00:18 08/09/19 00:18 08/09/19 00:18 08/09/19 00:18 Oxygen Flow Rate (L/min) 2 Oxygen Delivery Method Nasal Cannula Weight: 117.2 kg Body Mass Index (BMI) 40.4 Finger Stick Blood Glucose 410 General: Alert, Oriented x3, Cooperative, - - Obese HEENT: Atraumatic Neck: Supple, No Nuchal Rigidity, Trachea Midline Lungs: Clear to auscultation, Normal air movement Cardiovascular: Regular rate, Normal S1, Normal S2, No murmurs Abdomen: Bowel Sounds Present, Soft, Non Tender Extremities: No edema, Capillary Refill Less than 3 Seconds Skin: Ulcer/ Wound - lateral side of bilateral feet at the plantar sides Neurological: Cranial nerves II-XII grossly intact Psych/Mental Status: Normal Affect, Appropriate Laboratory Results 08/08/19 22:53: WBC 6.9, RBC 3.13 L, Hgb 8.6 L, Hct 28.5 L, MCV 91.1, MCH 27.5, MCHC 30.2 L, RDW Std Deviation 55.8 H, RDW Coeff of Roberto 16.8 H, Plt Count 212, MPV 9.8, Immature Gran % (Auto) 0.900, Neut % (Auto) 77.6 H, Lymph % (Auto) 9.0 L, Hood % (Auto) 5.5, Eos % (Auto) 6.1 H, Baso % (Auto) 0.9, Absolute Neuts (auto) 5.4, Absolute Lymphs (auto) 0.62 L, Nucleated RBC % 0 08/08/19 22:53: Sodium 130 L, Potassium 4.8, Chloride 96 L, Carbon Dioxide 29.0, Anion Gap 5, BUN 36 H, Creatinine 3.78 H, Estim Creat Clear Calc 21.86, Est GFR (MDRD) Af Amer 22 L, Est GFR (MDRD) Non-Af 18 L, BUN/Creatinine Ratio 9.5 L, Glucose 330 H, Calcium 8.0 L, Troponin I < 0.015 08/08/19 22:53: B-Natriuretic Peptide 490.4 H Current Medications Acetaminophen (Tylenol) 650 mg PO Q6H PRN PRN PRN Reason: Pain Score 1-10/Temp > 100.7 F Albuterol Sulfate (Ventolin Aerosols) 2.5 mg INHALATION Q2H PRN PRN PRN Reason: SOB/Wheezing Amlodipine Besylate (Norvasc) 10 mg PO DAILY [facility] Aspirin (Ecotrin) 81 mg PO DAILY [facility] Atorvastatin Calcium (Lipitor) 20 mg PO QHS [facility] Collagenase (Santyl) 1 applic TOPICAL DAILY [facility]; Protocol Cyclobenzaprine HCl (Flexeril) 10 mg PO TID PRN PRN PRN Reason: SPASMS Enoxaparin Sodium (Lovenox) 40 mg SC DAILY [facility] Fluticasone Propionate (Flonase Nasal [place]) 1 spray NASAL DAILY [facility] Furosemide (Lasix) 40 mg IV BID@1000,1800 [facility] Gabapentin (Neurontin) 300 mg PO BID [facility] Glucagon () 1 mg IM .X1 PRN PRN Reason: Hypoglycemia Dextrose (Dextrose 10%-Water) 250 mls @ 999 mls/hr IV .Q16M PRN; Protocol PRN Reason: HYPOGLYCEMIA Insulin Human Lispro (Humalog Kwikpen (Bkc)) 0 unit SC ACHS & 3AM RENE; Protocol Insulin Human Lispro (Humalog Kwikpen ([facility])) 15 unit SC 0800,1200,1700 [facility] Isosorbide Mononitrate (Imdur) 30 mg PO DAILY [facility] Melatonin (Melatonin) 3 mg PO QHS PRN PRN PRN Reason: INSOMNIA Metoprolol Tartrate (Lopressor (Beta Emmanuel)) 50 mg PO BID [facility] Multivit/Ca Carb/B Cmplx/FA/Prenat (Nephrocaps, Renaphro) capsule PO DAILY [facility] Non-Formulary Medication (Omeprazole) 40 mg PO DAILY [facility] Non-Formulary Medication (Sertraline Hcl) 25 mg PO DAILY [facility] Non-Formulary Medication (Sevelamer Hcl) 2,400 mg PO TID [facility] Non-Formulary Medication (Vits A,C,E/Lutein/Minerals [Ocuvite With Lutein Tablet]) 1 ea PO DAILY [facility] Ondansetron HCl (Zofran) 4 mg IV Q8H PRN PRN PRN Reason: NAUSEA/VOMITING Promethazine HCl (Phenergan Tablet) 25 mg PO TID PRN PRN Reason: VOMITING Trazodone HCl (Desyrel) 50 mg PO QHS [facility] Assessment/Plan All Active Problems (Last Reviewed 08/09/19 @ 01:12 by Eze Rivera MD) CHF (congestive heart failure) (Acute) The patient is a 48 year old M with a significant history of hypertension; obstructive sleep apnea; type 2 diabetes; stage II diastolic dysfunction returning to the emergency department after same day discharge with shortness of breath and chest pain and found to have chest x-ray findings consistent with CHF but much improved from his previous admission. Acute exacerbation of diastolic heart failure. Improved from previous admission. Probably not yet at baseline but may require time to be at baseline if compliant. Patient appears to have a considerable improvement in radiographic findings and may just need to titrate his oxygen up at home. Reading from Pulmonary notes it appears that is concerned about oxygen use and does not want to be oxygen dependent. Received Lasix 80 mg IV at the ED. Will admit patient on heart failure protocol with daily weights; strict intake and output; fluid restriction; 2 g cardiac diet. However it appears that patient need education and support at home; and reassurance that he can titrate his oxygen up. Discus sed with patient that upon discharge it is okay to titrate his oxygen up to 5 L if needed. However if he is requiring more oxygen above 5 L; or if he is extremely short of breath then he should come to the ED. Echocardiogram on 03/16/2019 showed stage II diastolic heart failure. Patient get dialysis Monday and Monday;. Trend troponin Case management consult for medication. Hypertensive On presentation his blood pressure was not within goal. Metoprolol; amlodipine and Imdur continued. Lasix as above. Trend blood pressures and adjust blood pressure medications. End-stage renal disease Likely from hypertension and diabetes. On dialysis; Monday and Saturdays. 2 g potassium restriction diet; low phosphate diet and 2 g sodium diet.. Nephrocaps and phosphate binders ordered. Nephrology consult Diabetes mellitus with nephropathy (end-stage renal disease) With complications including diabetic nephropathy. Patient with hyperglycemia Reportedly he took his insulin at lunchtime and was due for his insulin at the time of presentation. Home prandial insulin continued. Correction scale insulin changed from AC at bedtime to q. ACHS and 2 AM. Depression/anxiety Zoloft continued Diabetic ulcer bilateral feet Dry dressing continued. Obstructive sleep apnea. BiPAP for now; nightly and PRN. DVT prophylaxis Lovenox. Code Visit Inpatient E&M: 99905 Init Hosp L3
[2019-08-09] MEDS: cycloBENZAPRine HCl 10 MG Tablet PO ×2 (01:24→23:08)
[2019-08-09] MEDS: Atorvastatin Calcium 20 MG Tablet PO ×2 (01:24→22:57)
[2019-08-09] MEDS: Gabapentin 300 MG Capsule PO ×3 (01:24→22:57)
[2019-08-09] MEDS: traZODone 50 MG Tablet PO ×2 (01:24→22:56)
[2019-08-09] MEDS: Collagenase 30gm Tube 1 APPLIC TOPICAL ×2 (01:25→10:26)
[2019-08-09] MEDS: Insulin Lispro 100 UNIT/ML INSULN.PEN SC ×4 (03:21→22:56)
[2019-08-09 03:31] LABS: Bedside Glucose 299 mg/dL (70-110)
--- NOTE | 2019-08-09 04:27 | CPS ---
FiO2 titrated from 28% - 35%; maintain SpO2 > 90%
[2019-08-09 06:13] LABS: Absolute Lymphocyte Count 0.64 X10^3/uL (0.83-4.51); Absolute Neutrophil Count 3.5 X10^3/uL (2.0-7.7); Basophil# 0.05 X10^3/uL; Eosinophil# 0.32 X10^3/uL; Eosinophils% 6.3 % (0-5); Hematocrit 27.3 % (40-54); Hemoglobin 8.4 g/dL (13.0-16.5); Lymphocyte # 0.64 X10^3/ul (4.0); Lymphocyte % 12.7 % (19-41); Mean Corp Hgb Conc 30.8 g/dL (32-36); Mean Corpuscular Hgb 28.4 pg (27.0-32.0); Mean Corpuscular Volume 92.2 fL (80-94); Mean Platelet Vol. 9.9 fl (6.2-12.0); Monocyte# 0.46 X10^3/uL; Monocyte% 9.1 % (0-10); NRBC Flagged by Analyzer 0 % (0-5); Neutrophil # 3.51 X10^3/uL (2.7-7.7); Neutrophil % 69.7 % (47-70); Platelet Count 181 K/mm3 (150-450); RBC Distribution Width CV 16.5 % (11.6-14.6); RBC Distribution Width SD 55.8 fl (35.1-43.9); Red Blood Count 2.96 M/mm3 (4.6-6.2)
[2019-08-09 06:47] LABS: Anion Gap 7 (5-15); BUN 38 mg/dL (7-18); BUN/Creat Ratio 9.2 RATIO (10-20); Calcium,Total 7.8 mg/dL (8.5-10.1); Chloride 95 mmol/L (98-107); Creatinine, Serum 4.12 mg/dL (0.70-1.30); EST Glomerular Filtration Rate 16 mL/min (>60); Est Glom Filt Rate - Afr Amer 20 mL/min (>60); Estimated Creatinine Clearance 20.05 ml/min; Glucose 293 mg/dL (74-106); Potassium 4.9 mmol/L (3.5-5.1); Sodium Level 130 mmol/L (136-145)
[2019-08-09] MEDS: Insulin Lispro 100 UNIT/ML INSULN.PEN 15 UNIT SC ×3 (10:06→17:46)
[2019-08-09] MEDS: Aspirin E.C. 81 MG Tablet PO (10:23)
[2019-08-09] MEDS: Multivitamin (Healthy Eyes) Capsule 1 CAP PO (10:24)
[2019-08-09] MEDS: Fluticasone 0.05% 1 SPRAY NASAL.SRY NASAL (10:24)
[2019-08-09] MEDS: SEVELAMER CARBONATE 800 MG TABLET 2400 MG PO ×3 (10:24→17:46)
[2019-08-09] MEDS: Metoprolol Tartrate 50 MG Tablet PO ×2 (10:25→22:57)
[2019-08-09] MEDS: Isosorbide Mononitrate 30 MG Tablet PO (10:25)
[2019-08-09] MEDS: Enoxaparin 30 MG/0.3 ML Syringe SC (10:25)
[2019-08-09] MEDS: Folic Acid/Vitamin B Comp W-C 1 Capsule 1 CAP PO (10:26)
[2019-08-09] MEDS: amLODIPine 10 MG Tablet PO (10:26)
[2019-08-09] MEDS: Pantoprazole Sodium 40 MG Tablet PO (10:26)
[2019-08-09] MEDS: Sertraline 50 MG Tablet 25 MG PO (10:27)
[2019-08-09 10:40] LABS: Bedside Glucose 273 mg/dL (70-110)
--- NOTE | 2019-08-09 11:24 | CASEMGMT ---
LW/POA forms both scanned into summary tab of [place] [facility] listed as healthcare POA. TRENTON Nye
--- NOTE | 2019-08-09 12:03 | CASEMGMT ---
AMIRAH BAUER Readmission Note Previous Admission: 08/08/2019, left at 1410-directly to f/u with pulm as pt has been no-showing for those appts. Diagnosis: Shortness of breath. Oxygen noncompliance. DC Disposition: Home but pt states went from pulm f/u appt and then out to dinner with friends. states they never went home. Pt states then became SOB and came back to [facility] ED. Pt repeatedly insists that he does not need to be on home oxygen continuous despite consistent education from [facility] staff and pulmonology that pt needs continous home oxygen. Pt states that he does not want be 'become dependent on oxygen.' Pt also has services through [facility], [facility] [place]. Pt was set up with [facility] again at discharge for SN, PT/OT, SW and aide. Current Admission 08/08/19 returned 2150 Presentation: Acute exacerbation of diastolic HF. Noncompliance with fluid restriction/diet/oxygen. Pt's next HD will be 08/10/19. PCP: Dr. Washburn f/u appt 08/12/19 at 1125, Dr Vieyra f/u appt 08/16/19 at 0930 already set up. DC PLAN: Home. REGAN had checked oxygen in home and stated concentrator is working properly, pt will continue services [facility] and [facility] at discharge. Pt did sign for palliative care. Minoo VILLALOBOS did speak with [facility] during last visit to try to expedite home relocation for pt/. [place] AMIRAH BAUER
[2019-08-09 12:25] LABS: Bedside Glucose 210 mg/dL (70-110)
--- NOTE | 2019-08-09 13:29 | PN_ITS ---
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 He is currently stable on his baseline O2 but does not feel that his breathing has improved. No cough, fevers, chills, wheezing. Vitals/I&O's: Vital Signs Temp Pulse Resp BP Pulse Ox 97.9 F 69 17 155/71 H 97 08/09/19 10:08 08/09/19 11:10 08/09/19 10:08 08/09/19 10:25 08/09/19 10:08 Oxygen Flow Rate (L/min) 4 Oxygen Delivery Method Nasal Cannula Weight: 259 lb 0.69 oz Body Mass Index (BMI) 40.4 Finger Stick Blood Glucose 410 Intake and Output for Last 24 Hours 08/07/19 08/08/19 08/09/19 23:59 23:59 23:59 Intake Total 560 / 560 Output Total 400 / 400 Balance 160 / 160 General: Alert, Oriented x3, Cooperative HEENT: Atraumatic, PERRLA, EOMI, Normocephalic Neck: Supple, No JVD, Negative Carotid Bruits Lungs: Diminished Cardiovascular: Regular rate, No murmurs Abdomen: Bowel Sounds Present, Soft, Non Tender, Obese Extremities: Capillary Refill Less than 3 Seconds, Edema Skin: No rashes, No breakdown Musculoskeletal: No Tenderness to Palpation of Joints or Extremities Neurological: Cranial nerves II-XII grossly intact Psych/Mental Status: Normal Affect, Appropriate, Alert and oriented to time, p lace, person, mood and affect Laboratory Results 08/08/19 22:53: WBC 6.9, RBC 3.13 L, Hgb 8.6 L, Hct 28.5 L, MCV 91.1, MCH 27.5, MCHC 30.2 L, RDW Std Deviation 55.8 H, RDW Coeff of Robetro 16.8 H, Plt Count 212, MPV 9.8, Immature Gran % (Auto) 0.900, Neut % (Auto) 77.6 H, Lymph % (Auto) 9.0 L, [place] % (Auto) 5.5, Eos % (Auto) 6.1 H, Baso % (Auto) 0.9, Absolute Neuts (auto) 5.4, Absolute Lymphs (auto) 0.62 L, Nucleated RBC % 0 08/08/19 22:53: Sodium 130 L, Potassium 4.8, Chloride 96 L, Carbon Dioxide 29.0, Anion Gap 5, BUN 36 H, Creatinine 3.78 H, Estim Creat Clear Calc 21.86, Est GFR (MDRD) Af Amer 22 L, Est GFR (MDRD) Non-Af 18 L, BUN/Creatinine Ratio 9.5 L, Glucose 330 H, Calcium 8.0 L, Troponin I < 0.015 08/08/19 22:53: B-Natriuretic Peptide 490.4 H 08/09/19 02:19: Troponin I < 0.015 08/09/19 03:20: POC Glucose 299 H 08/09/19 05:47: WBC 5.0, RBC 2.96 L, Hgb 8.4 L, Hct 27.3 L, MCV 92.2, MCH 28.4, MCHC 30.8 L, RDW Std Deviation 55.8 H, RDW Coeff of Roberto 16.5 H, Plt Count 181, MPV 9.9, Immature Gran % (Auto) 1.200 H, Neut % (Auto) 69.7, Lymph % (Auto) 12.7 L, [place] % (Auto) 9.1, Eos % (Auto) 6.3 H, Baso % (Auto) 1.0, Absolute Neuts (auto) 3.5, Absolute Lymphs (auto) 0.64 L, Nucleated RBC % 0 08/09/19 05:47: Sodium 130 L, Potassium 4.9, Chloride 95 L, Carbon Dioxide 28.0, Anion Gap 7, BUN 38 H, Creatinine 4.12 H, Estim Creat Clear Calc 20.05, Est GFR (MDRD) Af Amer 20 L, Est GFR (MDRD) Non-Af 16 L, BUN/Creatinine Ratio 9.2 L, Glucose 293 H, Calcium 7.8 L 08/09/19 05:47: Troponin I < 0.015 08/09/19 09:31: POC Glucose 273 H 08/09/19 12:14: POC Glucose 210 H Current Medications Acetaminophen (Tylenol) 650 mg PO Q6H PRN PRN PRN Reason: Pain Score 1-10/Temp > 100.7 F Albuterol Sulfate (Ventolin Aerosols) 2.5 mg INHALATION Q2H PRN PRN PRN Reason: SOB/Wheezing Amlodipine Besylate (Norvasc) 10 mg PO DAILY [facility] Last Admin: 08/09/19 10:26 Dose: 10 mg Documented by: Aspirin (Ecotrin) 81 mg PO DAILY@0800 [facility] Last Admin: 08/09/19 10:23 Dose: 81 mg Documented by: Atorvastatin Calcium (Lipitor) 20 mg PO QHS [facility] Last Admin: 08/09/19 01:24 Dose: 20 mg Documented by: Collagenase (Santyl) 1 applic TOPICAL DAILY [facility]; Protocol Last Admin: 08/09/19 10:26 Dose: 1 applic Documented by: Cyclobenzaprine HCl (Flexeril) 10 mg PO TID PRN PRN PRN Reason: SPASMS Last Admin: 08/09/19 01:24 Dose: 10 mg Documented by: Enoxaparin Sodium (Lovenox) 30 mg SC DAILY [facility] Last Admin: 08/09/19 10:25 Dose: 30 mg Documented by: Fluticasone Propionate (Flonase Nasal [place]) 1 spray NASAL DAILY [facility] Last Admin: 08/09/19 10:24 Dose: 1 spray Documented by: Furosemide (Lasix) 40 mg IV TID [facility] Gabapentin (Neurontin) 300 mg PO BID [facility] Last Admin: 08/09/19 10:26 Dose: 300 mg Documented by: Glucagon () 1 mg IM .X1 PRN PRN Reason: Hypoglycemia Dextrose (Dextrose 10%-Water) 250 mls @ 999 mls/hr IV .Q16M PRN; Protocol PRN Reason: HYPOGLYCEMIA Insulin Human Lispro (Humalog Kwikpen (Bkc)) 0 unit SC ACHS & 3AM RENE; Protocol Last Admin: 08/09/19 12:16 Dose: 4 units Documented by: Insulin Human Lispro (Humalog Kwikpen (Bkc)) 15 unit SC TIDAC [facility] Last Admin: 08/09/19 12:16 Dose: 15 units Documented by: Isosorbide Mononitrate (Imdur) 30 mg PO DAILY [facility] Last Admin: 08/09/19 10:25 Dose: 30 mg Documented by: Melatonin (Melatonin) 3 mg PO QHS PRN PRN PRN Reason: INSOMNIA Metoprolol Tartrate (Lopressor (Beta Emmanuel)) 50 mg PO BID [facility] Last Admin: 08/09/19 10:25 Dose: 50 mg Documented by: Multivit/Ca Carb/B Cmplx/FA/Prenat (Nephrocaps, Renaphro) 1 capsule PO DAILY [facility] Last Admin: 08/09/19 10:26 Dose: 1 capsule Documented by: Multivitamins/Minerals (Healthy Eyes (Bkc)) 1 capsule PO DAILY [facility] Last Admin: 08/09/19 10:24 Dose: 1 capsule Documented by: Ondansetron HCl (Zofran) 4 mg IV Q8H PRN PRN PRN Reason: NAUSEA/VOMITING Pantoprazole Sodium (Protonix) 40 mg PO DAILY [facility] Last Admin: 08/09/19 10:26 Dose: 40 mg Documented by: Promethazine HCl (Phenergan Tablet) 25 mg PO TID PRN PRN PRN Reason: VOMITING Sertraline HCl (Zoloft) 25 mg PO DAILY [facility] Last Admin: 08/09/19 10:27 Dose: 25 mg Documented by: Sevelamer Carbonate (Renvela) 2,400 mg PO TIDCM [facility] Last Admin: 08/09/19 12:18 Dose: 2,400 mg Documented by: Sodium Chloride () 10 - 40 ml IV UD PRN PRN Reason: SALINE FLUSH Trazodone HCl (Desyrel) 50 mg PO QHS [facility] Last Admin: 08/09/19 01:24 Dose: 50 mg Documented by: STROKE Vital Signs/Narrative: Vital Signs Temp Pulse Resp BP Pulse Ox 08/09/19 11:10 69 08/09/19 10:25 68 155/71 H 08/09/19 10:08 97.9 F 68 17 155/71 H 97 Medical Necessity - Tobacco Use Smoking Status: Never smoker Assessment/Plan All Active Problems (Last Reviewed 08/09/19 @ 11:21 by LATASHA Osullivan) CHF (congestive heart failure) (Acute) 1. Acute on chronic diastolic CHF 2/2 noncompliance with diet and fluid restriction, noncompliance with home o2. Continue lasix as he does make some urine. Normally gets about 6L out for dialysis. Consult Nephrology. Trop negx3. BNP somewhat elevated. CXR shows CHF. 2. Chronic hypoxic respiratory failure - he is at baseline. He will need walking o2 test prior to baseline to clarify quantity of O2 needed while up walking. 3. ESRD - HD per Dr. Gregorio 4. T1 DM - last A1C 12%. Continue current insulin therapy. Trend. 5. HTN - mildly elevated. 6. GERD - ppi 7. Chronic anemia - stable. 8. SELMA - bipap qhs 9. diabetic foot ulcer - continue wound care DVT ppx: lovenox DC Planning: pt will go home when ready, however he will continue to have frequent readmission with his noncompliance with his diet, fluid restriction, and O2 compliance. This patient was seen by Zachariah Meza PA-C under the supervision of Dr. Reyes. <EricGranbury - Last Filed: 08/09/19 20:54> Vitals/I&O's: Vital Signs Temp Pulse Resp BP Pulse Ox 98.3 F 69 16 154/66 H 98 08/09/19 20:05 08/09/19 20:05 08/09/19 20:05 08/09/19 20:05 08/09/19 20:05 Oxygen Flow Rate (L/min) [ 6 AMBULATION with Oxygen] Oxygen Flow Rate (L/min) [ 2 AMBULATING on Room Air] Oxygen Flow Rate (L/min) [At 2 REST on Room Air] Oxygen Flow Rate (L/min) 4 Oxygen Delivery Method Nasal Cannula Weight: 117.5 kg Body Mass Index (BMI) 40.4 Finger Stick Blood Glucose 410 Intake and Output for Last 24 Hours 08/07/19 08/08/19 08/09/19 23:59 23:59 23:59 Intake Total 1050 / 1050 Output Total 400 / 400 Balance 650 / 650 Laboratory Results 08/08/19 22:53: WBC 6.9, RBC 3.13 L, Hgb 8.6 L, Hct 28.5 L, MCV 91.1, MCH 27.5, MCHC 30.2 L, RDW Std Deviation 55.8 H, RDW Coeff of Roberto 16.8 H, Plt Count 212, MPV 9.8, Immature Gran % (Auto) 0.900, Neut % (Auto) 77.6 H, Lymph % (Auto) 9.0 L, [place] % (Auto) 5.5, Eos % (Auto) 6.1 H, Baso % (Auto) 0.9, Absolute Neuts (auto) 5.4, Absolute Lymphs (auto) 0.62 L, Nucleated RBC % 0 08/08/19 22:53: Sodium 130 L, Potassium 4.8, Chloride 96 L, Carbon Dioxide 29.0, Anion Gap 5, BUN 36 H, Creatinine 3.78 H, Estim Creat Clear Calc 21.86, Est GFR (MDRD) Af Amer 22 L, Est GFR (MDRD) Non-Af 18 L, BUN/Creatinine Ratio 9.5 L, Glucose 330 H, Calcium 8.0 L, Troponin I < 0.015 08/08/19 22:53: B-Natriuretic Peptide 490.4 H 08/09/19 02:19: Troponin I < 0.015 08/09/19 03:20: POC Glucose 299 H 08/09/19 05:47: WBC 5.0, RBC 2.96 L, Hgb 8.4 L, Hct 27.3 L, MCV 92.2, MCH 28.4, MCHC 30.8 L, RDW Std Deviation 55.8 H, RDW Coeff of Roberto 16.5 H, Plt Count 181, MPV 9.9, Immature Gran % (Auto) 1.200 H, Neut % (Auto) 69.7, Lymph % (Auto) 12.7 L, [place] % (Auto) 9.1, Eos % (Auto) 6.3 H, Baso % (Auto) 1.0, Absolute Neuts (auto) 3.5, Absolute Lymphs (auto) 0.64 L, Nucleated RBC % 0 08/09/19 05:47: Sodium 130 L, Potassium 4.9, Chloride 95 L, Carbon Dioxide 28.0, Anion Gap 7, BUN 38 H, Creatinine 4.12 H, Estim Creat Clear Calc 20.05, Est GFR (MDRD) Af Amer 20 L, Est GFR (MDRD) Non-Af 16 L, BUN/Creatinine Ratio 9.2 L, Glucose 293 H, Calcium 7.8 L 08/09/19 05:47: Troponin I < 0.015 08/09/19 09:31: POC Glucose 273 H 08/09/19 12:14: POC Glucose 210 H 08/09/19 16:47: POC Glucose 146 H Current Medications Acetaminophen (Tylenol) 650 mg PO Q6H PRN PRN PRN Reason: Pain Score 1-10/Temp > 100.7 F Albuterol Sulfate (Ventolin Aerosols) 2.5 mg INHALATION Q2H PRN PRN PRN Reason: SOB/Wheezing Amlodipine Besylate (Norvasc) 10 mg PO DAILY [facility] Last Admin: 08/09/19 10:26 Dose: 10 mg Documented by: Aspirin (Ecotrin) 81 mg PO DAILY@0800 [facility] Last Admin: 08/09/19 10:23 Dose: 81 mg Documented by: Atorvastatin Calcium (Lipitor) 20 mg PO QHS [facility] Last Admin: 08/09/19 01:24 Dose: 20 mg Documented by: Collagenase (Santyl) 1 applic TOPICAL DAILY [facility]; Protocol Last Admin: 08/09/19 10:26 Dose: 1 applic Documented by: Cyclobenzaprine HCl (Flexeril) 10 mg PO TID PRN PRN PRN Reason: SPASMS Last Admin: 08/09/19 01:24 Dose: 10 mg Documented by: Enoxaparin Sodium (Lovenox) 30 mg SC DAILY [facility] Last Admin: 08/09/19 10:25 Dose: 30 mg Documented by: Fluticasone Propionate (Flonase Nasal [place]) 1 spray NASAL DAILY [facility] Last Admin: 08/09/19 10:24 Dose: 1 spray Documented by: Furosemide (Lasix) 40 mg IV TID [facility] Last Admin: 08/09/19 13:55 Dose: 40 mg Documented by: Gabapentin (Neurontin) 300 mg PO BID [facility] Last Admin: 08/09/19 10:26 Dose: 300 mg Documented by: Glucagon () 1 mg IM .X1 PRN PRN Reason: Hypoglycemia Dextrose (Dextrose 10%-Water) 250 mls @ 999 mls/hr IV .Q16M PRN; Protocol PRN Reason: HYPOGLYCEMIA Insulin Human Lispro (Humalog Kwikpen (Bkc)) 0 unit SC ACHS & 3AM RENE; Protocol Last Admin: 08/09/19 17:40 Dose: Not Given Documented by: Insulin Human Lispro (Humalog Kwikpen (Bkc)) 15 unit SC TIDAC [facility] Last Admin: 08/09/19 17:46 Dose: 15 units Documented by: Isosorbide Mononitrate (Imdur) 30 mg PO DAILY [facility] Last Admin: 08/09/19 10:25 Dose: 30 mg Documented by: Melatonin (Melatonin) 3 mg PO QHS PRN PRN PRN Reason: INSOMNIA Metoprolol Tartrate (Lopressor (Beta Emmanuel)) 50 mg PO BID [facility] Last Admin: 08/09/19 10:25 Dose: 50 mg Documented by: Multivit/Ca Carb/B Cmplx/FA/Prenat (Nephrocaps, Renaphro) 1 capsule PO DAILY [facility] Last Admin: 08/09/19 10:26 Dose: 1 capsule Documented by: Multivitamins/Minerals (Healthy Eyes (Bkc)) 1 capsule PO DAILY [facility] Last Admin: 08/09/19 10:24 Dose: 1 capsule Documented by: Ondansetron HCl (Zofran) 4 mg IV Q8H PRN PRN PRN Reason: NAUSEA/VOMITING Pantoprazole Sodium (Protonix) 40 mg PO DAILY [facility] Last Admin: 08/09/19 10:26 Dose: 40 mg Documented by: Promethazine HCl (Phenergan Tablet) 25 mg PO TID PRN PRN PRN Reason: VOMITING Sertraline HCl (Zoloft) 25 mg PO DAILY [facility] Last Admin: 08/09/19 10:27 Dose: 25 mg Documented by: Sevelamer Carbonate (Renvela) 2,400 mg PO TIDCM [facility] Last Admin: 08/09/19 17:46 Dose: 2,400 mg Documented by: Sodium Chloride () 10 - 40 ml IV UD PRN PRN Reason: SALINE FLUSH Last Admin: 08/09/19 13:55 Dose: 10 ml Documented by: Trazodone HCl (Desyrel) 50 mg PO QHS [facility] Last Admin: 08/09/19 01:24 Dose: 50 mg Documented by: STROKE Vital Signs/Narrative: Vital Signs Temp Pulse Resp BP Pulse Ox Pulse Ox Pulse Ox 08/09/19 20:05 98.3 F 69 16 154/66 H 98 08/09/19 18:49 69 08/09/19 18:45 87 95 Pulse Ox 08/09/19 20:05 08/09/19 18:49 08/09/19 18:45 95 Assessment/Plan This patient was seen in conjunction with BENJI Wooten. I have independently interviewed and examined the patient and reviewed pertinent historical, laboratory, and other data. Please refer to BENJI Wooten note for his patient's presentation, findings, and recommendations. I have reviewed and his note and concur with his documentation Patient was seen and examined. He comes back less than 24 hours of discharge. He is on 2L oxygen. Physical Exam: Gen:Alert, oriented x3 not pale, not jaundiced CVS:HS I +II, regular, no murmurs RESP: Diminished at lung bases GI: BS present and normal, soft, nontender, no palpable organs EXT:Bilateral leg edema +2, ERICKA-wrap to left foot Will continue on Lasix 40mg IV x3 Continue rest of meds Code Visit Inpatient E&M: 05727 Subs Hosp L2
[2019-08-09] MEDS: 0.9% Saline Lock 10 ML Syringe IV ×2 (13:55→22:58)
[2019-08-09] MEDS: Furosemide 40 MG/4 ML Vial IV ×2 (13:55→22:57)
--- NOTE | 2019-08-09 14:01 | CASEMGMT ---
AMIRAH BAUER NOTE: Call placed to [facility] to ensure they are aware pt has been re-admitted to [facility]. They state they were aware and thanked AMIRAH BAUER for calling. They were also made aware anticipate discharge today or tomorrow. H/P and new order for HHC faxed to [facility] at this time. [facility]: PH: [phone] Macie TORRES RN, CM
[2019-08-09 16:50] LABS: Bedside Glucose 146 mg/dL (70-110)
[2019-08-10] VITALS (9 sets, daily range): BP systolic 148–151; BP diastolic 71–101; PULSE 65–72; RESP 12–18; TEMP 36.5–37.1; O2SAT 92–100
[2019-08-10 00:46] LABS: Bedside Glucose 214 mg/dL (70-110)
[2019-08-10] MEDS: Insulin Lispro 100 UNIT/ML INSULN.PEN SC ×2 (03:47→09:10)
[2019-08-10 05:55] LABS: Bedside Glucose 190 mg/dL (70-110)
[2019-08-10 06:27] LABS: Anion Gap 8 (5-15); BUN 55 mg/dL (7-18); BUN/Creat Ratio 10.5 RATIO (10-20); Calcium,Total 8.1 mg/dL (8.5-10.1); Chloride 97 mmol/L (98-107); Creatinine, Serum 5.22 mg/dL (0.70-1.30); EST Glomerular Filtration Rate 12 mL/min (>60); Est Glom Filt Rate - Afr Amer 15 mL/min (>60); Estimated Creatinine Clearance 15.83 ml/min; Glucose 226 mg/dL (74-106); Potassium 5.4 mmol/L (3.5-5.1); Sodium Level 131 mmol/L (136-145)
[2019-08-10] MEDS: Furosemide 40 MG/4 ML Vial IV (06:51)
[2019-08-10] MEDS: 0.9% Saline Lock 10 ML Syringe IV (06:52)
--- NOTE | 2019-08-10 07:35 | DIALYSIS ---
Upon arrival I was notified that the pt was being discharged this morning and pt is scheduled for tx at [facility]. Talked with Sameera from [facility] he is scheduled second shift. Dr. Gregorio was also notified.
--- NOTE | 2019-08-10 08:07 | PCM.PN.BLA ---
Progress Note 48 y/o M with ESRD on HD TTS readmitted within 12hrs from discharge for SOB. Dialysis arranged for today inpt but discharged to home and scheduled to receive dialysis at chronic center. He is noncompliant with fluid restriction, elevated, poorly controlled diabetes due to noncompliance with diet. O2 sat stable. Will follow up at chronic center. STROKE Vital Signs/Narrative: Vital Signs Pulse 08/10/19 07:18 66
[2019-08-10] MEDS: Insulin Lispro 100 UNIT/ML INSULN.PEN 15 UNIT SC (09:10)
--- NOTE | 2019-08-10 09:10 | PCM.DC ---
You will use the following diet at home:: Renal (restricted protein/sodium) - 1500 cc / day fluid restriction Your food should be the consistency of: Regular Your liquids should be the consistency of: Regular/Thin Discharge Activity: Return to Normal Activity Allergies/Adverse Reactions: Allergies venom-honey bee [bee venom (honey bee)] Allergy (Verified 08/08/19 22:01) Swelling sulfamethoxazole [From Bactrim] Adverse Reaction (Verified 08/08/19 22:01) Upset Stomach trimethoprim [From Bactrim] Adverse Reaction (Verified 08/08/19 22:01) Upset Stomach Medications to take at Discharge Atorvastatin Calcium [Lipitor] 20 mg PO QHS 10/11/17 Vits A,C,E/Lutein/Minerals [Ocuvite with Lutein Tablet] 1 ea PO DAILY 10/11/17 Folic Acid/Vitamin B Comp W-C [Nephrocaps, Renaphro] 1 cap PO DAILY 10/27/17 albuterol sulfate 90 mcg/actuation aerosol inhaler 2 puff INHALATION Q4H PRN #18 g 02/26/18 Aspirin E.C. [Ecotrin] 81 mg PO DAILY 03/23/18 Cyclobenzaprine HCl 10 mg PO TID PRN PRN 03/23/18 Fluticasone 0.05% [Flonase Nasal [place]] 1 spray NASAL DAILY 03/23/18 Gabapentin [Neurontin] 300 mg PO BID 03/23/18 isosorbide mononitrate 30 mg tablet,extended release 24 hr 30 mg PO DAILY #30 tab 07/24/18 Metoprolol Tartrate [Lopressor (beta khoa)] 50 mg PO BID 03/12/19 Omeprazole 40 mg PO DAILY 03/12/19 proMETHazine tablet [Phenergan tablet] 25 mg PO TID PRN 03/13/19 Sevelamer HCl [Renagel] 2,400 mg PO TID #0 03/20/19 traZODone [Desyrel] 50 mg PO QHS 07/06/19 Amlodipine [Norvasc] 10 mg PO DAILY #30 tab 07/12/19 Collagenase [Santyl] 1 applic TOPICAL DAILY tube 07/24/19 Sertraline HCl [Zoloft] 25 mg PO DAILY 08/05/19 Acetaminophen [Tylenol Tablet] 650 mg PO Q6H PRN PRN tab 08/08/19 Insulin Lispro [Humalog KwikPen] 15 unit SUBCUT 0800,1200,1700 insuln.pen 08/08/19 Furosemide [Lasix] 80 mg PO BIDLX #60 tab 08/10/19 Insulin Lispro [Humalog KwikPen] See Protocol SUBCUT ACHS 08/10/19 The following prescriptions were given: Furosemide [Lasix] 80 mg PO BIDLX #60 tab Transmission Status: Pending to [facility] Primary Care Physician: Augie Washburn MD [Primary Care Provider] - Please follow up with your Primary Care Physician in: 1-2 weeks Test Results: Test results from this visit will be discussed in further detail at your follow-up appointment, if applicable. Please Follow Up With: Anca Gregorio DO When: as directed Please Follow Up With: Gavino Bowen DO When: as directed Proposed Discharge Date: 08/10/19
[2019-08-10] MEDS: Metoprolol Tartrate 50 MG Tablet PO (09:15)
[2019-08-10] MEDS: Multivitamin (Healthy Eyes) Capsule 1 CAP PO (09:15)
[2019-08-10] MEDS: Sertraline 50 MG Tablet 25 MG PO (09:15)
[2019-08-10] MEDS: Isosorbide Mononitrate 30 MG Tablet PO (09:15)
[2019-08-10] MEDS: Aspirin E.C. 81 MG Tablet PO (09:15)
[2019-08-10] MEDS: Pantoprazole Sodium 40 MG Tablet PO (09:15)
[2019-08-10] MEDS: Gabapentin 300 MG Capsule PO (09:15)
[2019-08-10] MEDS: Folic Acid/Vitamin B Comp W-C 1 Capsule 1 CAP PO (09:15)
[2019-08-10] MEDS: SEVELAMER CARBONATE 800 MG TABLET 2400 MG PO (09:16)
[2019-08-10] MEDS: amLODIPine 10 MG Tablet PO (09:17)
[2019-08-10] MEDS: Enoxaparin 30 MG/0.3 ML Syringe SC (09:17)
[2019-08-10] MEDS: Collagenase 30gm Tube 1 APPLIC TOPICAL (09:18)
[2019-08-10] MEDS: Fluticasone 0.05% 1 SPRAY NASAL.SRY NASAL (09:18)
[2019-08-10 10:15] LABS: Bedside Glucose 263 mg/dL (70-110)
--- NOTE | 2019-08-10 14:46 | PCM.DC.SUM ---
<Zachariah Meza - Last Filed: 08/10/19 14:46> Discharge Date and Diagnosis Date of Admission: 08/08/19 Date of Discharge: 08/10/19 - Primary Discharge Diagnosis Acute on chronic diastolic congestive heart failure due to noncompliance with diet and fluid restriction. End-stage renal disease Chronic hypoxic respiratory failure - Secondary Discharge Diagnosis Chronic Problems (Last Reviewed 08/09/19 @ 11:21 by LATASHA Osullivan) Noncompliance (Chronic) TIA (transient ischemic attack) (Chronic) Pulmonary hypertension (Chronic) Morbid obesity with BMI of 40.0-44.9, adult (Chronic) End stage renal disease on dialysis (Chronic) Peripheral vascular disease (Chronic) Toe fracture, right (Chronic) Ulcer of right foot with fat layer exposed (Chronic) Chronic ulcer of left foot with fat layer exposed (Chronic) Type 2 diabetes mellitus with diabetic polyneuropathy (Chronic) Chronic ulcer of left foot with fat layer exposed (Chronic) Chronic respiratory failure with hypoxia (Chronic) HTN (hypertension) (Chronic) Hyperlipidemia (Chronic) Diabetic neuropathy (Chronic) Anemia (Chronic) SELMA (obstructive sleep apnea) (Chronic) Hospital Course and Treatment Imaging Results: RAD/Chest 1 View (Portable) IMPRESSION: Findings suggestive of congestive heart failure. Consults: Jg - nephro Operations: None Procedures: None Summary of Care Provided: Hospital Course: The patient is a 48 year old M with past medical history most notable for diastolic congestive heart failure with very poor compliance with diet and fluid restriction, chronic hypoxic respiratory failure, end-stage renal disease, who presented to the emergency room the day of after being discharged from the hospital for the same. 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 Chest x-ray demonstrated congestive heart failure, BNP was elevated at 490, troponin was negative, and his oxygen was appropriate at his own home level-91% on 2 L. The patient was admitted to the PCU for acute on chronic diastolic congestive heart failure. His Lasix was increased as he still makes some urine. He did not require dialysis while here. The patient has repeatedly not followed dietary and fluid recommendations despite being educated by multiple providers within the hospital and outside the hospital as an outpatient. His current event was precipitated by his dietary indiscretions again. Dietary recommendations were reiterated to him again by multiple providers on this admission. He was discharged home in stable condition on increased dose of Lasix. He was discharged to his regular outpatient dialysis which was arranged for him to be completed as an outpatient after discharge. He will need follow-up with his electrical assemblies supervisor as directed, nephrology as directed, and with his PCP in 1 to 2 weeks. This patient was seen by Zachariah Meza PA-C under the supervision of Doctor Reyes. [] - Physical Exam Vitals/I&O's: Vital Signs Temp Pulse Resp BP Pulse Ox 98.8 F 72 18 148/101 H 93 08/10/19 09:30 08/10/19 09:30 08/10/19 09:30 08/10/19 09:30 08/10/19 09:42 Oxygen Flow Rate (L/min) [ 6 AMBULATION with Oxygen] Oxygen Flow Rate (L/min) [ 2 AMBULATING on Room Air] Oxygen Flow Rate (L/min) [At 2 REST on Room Air] Oxygen Flow Rate (L/min) 2 Oxygen Delivery Method Nasal Cannula Weight: 265 lb 6.985 oz Body Mass Index (BMI) 40.4 Finger Stick Blood Glucose 410 Intake and Output for Last 24 Hours 08/08/19 08/09/19 08/10/19 23:59 23:59 23:59 Intake Total 1250 / 1250 120 / 120 Output Total 610 / 610 0 / 0 Balance 640 / 640 120 / 120 General: Alert, Oriented x3, Cooperative HEENT: Atraumatic, PERRLA, EOMI, Normocephalic Neck: Supple, No JVD, Negative Carotid Bruits Lungs: Clear to auscultation, Diminished Cardiovascular: Regular rate, No murmurs Abdomen: Bowel Sounds Present, Soft, Non Tender, Obese Extremities: Capillary Refill Less than 3 Seconds, Edema Skin: No rashes, No breakdown Musculoskeletal: No Tenderness to Palpation of Joints or Extremities Neurological: Cranial nerves II-XII grossly intact Psych/Mental Status: Normal Affect, Appropriate, Alert and oriented to time, place, person, mood and affect Laboratory Results 08/09/19 16:47: POC Glucose 146 H 08/09/19 22:56: POC Glucose 214 H 08/10/19 03:45: POC Glucose 190 H 08/10/19 06:04: Sodium 131 L, Potassium 5.4 H, Chloride 97 L, Carbon Dioxide 26.0, Anion Gap 8, BUN 55 H, Creatinine 5.22 H, Estim Creat Clear Calc 15.83, Est GFR (MDRD) Af Amer 15 L, Est GFR (MDRD) Non-Af 12 L, BUN/Creatinine Ratio 10.5, Glucose 226 H, Calcium 8.1 L 08/10/19 09:03: POC Glucose 263 H Discharge Diet: Renal Diet Discharge Activity: Return to Normal Activity Home Medications: Medications to take at Discharge Atorvastatin Calcium [Lipitor] 20 mg PO QHS 10/11/17 Vits A,C,E/Lutein/Minerals [Ocuvite with Lutein Tablet] 1 ea PO DAILY 10/11/17 Folic Acid/Vitamin B Comp W-C [Nephrocaps, Renaphro] 1 cap PO DAILY 10/27/17 albuterol sulfate 90 mcg/actuation aerosol inhaler 2 puff INHALATION Q4H PRN #18 g 02/26/18 Aspirin E.C. [Ecotrin] 81 mg PO DAILY 03/23/18 Cyclobenzaprine HCl 10 mg PO TID PRN PRN 03/23/18 Fluticasone 0.05% [Flonase Nasal Harlan] 1 spray NASAL DAILY 03/23/18 Gabapentin [Neurontin] 300 mg PO BID 03/23/18 isosorbide mononitrate 30 mg tablet,extended release 24 hr 30 mg PO DAILY #30 tab 07/24/18 Metoprolol Tartrate [Lopressor (beta khoa)] 50 mg PO BID 03/12/19 Omeprazole 40 mg PO DAILY 03/12/19 proMETHazine tablet [Phenergan tablet] 25 mg PO TID PRN 03/13/19 Sevelamer HCl [Renagel] 2,400 mg PO TID #0 03/20/19 traZODone [Desyrel] 50 mg PO QHS 07/06/19 Amlodipine [Norvasc] 10 mg PO DAILY #30 tab 07/12/19 Collagenase [Santyl] 1 applic TOPICAL DAILY tube 07/24/19 Sertraline HCl [Zoloft] 25 mg PO DAILY 08/05/19 Acetaminophen [Tylenol Tablet] 650 mg PO Q6H PRN PRN tab 08/08/19 Insulin Lispro [Humalog KwikPen] 15 unit SUBCUT 0800,1200,1700 insuln.pen 08/08/19 Furosemide [Lasix] 80 mg PO BIDLX #60 tab 08/10/19 Insulin Lispro [Humalog KwikPen] See Protocol SUBCUT ACHS 08/10/19 Following Prescrptions Were Given to Patient: Furosemide [Lasix] 80 mg PO BIDLX #60 tab Transmission Status: Received by [facility] Primary Care Physician: Augie Washburn MD [Primary Care Provider] - Please follow up with your Primary Care Physician in: 1-2 weeks Please Follow Up With: Anca Gregorio DO When: as directed Please Follow Up With: Gavino Bowen DO When: as directed Please Follow Up With: Augie Washburn MD Disposition: Home Minutes spent on discharge:: 35 Medical Necessity - Tobacco Use Smoking Status: Never smoker Meaningful Use Info Meaningful Use Diagnoses (Choose all that apply): CHF - CHF ERICKA/ARB ordered at discharge?: No Reason ERICKA/ARB not ordered?: Worsening renal disease Documented LVEF (%): 60 <Anaya Reyes - Last Filed: 08/10/19 16:17> Discharge Date and Diagnosis - Secondary Discharge Diagnosis Chronic Problems (Last Reviewed 08/09/19 @ 11:21 by Miriam Mix NP-C) Noncompliance (Chronic) TIA (transient ischemic attack) (Chronic) Pulmonary hypertension (Chronic) Morbid obesity with BMI of 40.0-44.9, adult (Chronic) End stage renal disease on dialysis (Chronic) Peripheral vascular disease (Chronic) Toe fracture, right (Chronic) Ulcer of right foot with fat layer exposed (Chronic) Chronic ulcer of left foot with fat layer exposed (Chronic) Type 2 diabetes mellitus with diabetic polyneuropathy (Chronic) Chronic ulcer of left foot with fat layer exposed (Chronic) Chronic respiratory failure with hypoxia (Chronic) HTN (hypertension) (Chronic) Hyperlipidemia (Chronic) Diabetic neuropathy (Chronic) Anemia (Chronic) SELMA (obstructive sleep apnea) (Chronic) Hospital Course and Treatment Summary of Care Provided: his patient was seen in conjunction with BENJI Wooten. I have independently interviewed and examined the patient and reviewed pertinent historical, laboratory, and other data. Please refer to BENJI Wooten note for his patient's presentation, findings, and recommendations. I have reviewed and his note and concur with his documentation 48-year-old male with multiple comorbidities including ESRD on hemodialysis, chronic diastolic CHF, noncompliant with medications, fluid and diet restriction who presented on the same day of being discharged from the hospital with progressive shortness of breath and hypoxia. Patient was noncompliant with his diet and use of oxygen at discharge. He was readmitted and managed as acute on chronic diastolic CHF with IV Lasix. At discharge, patient was on the same amount of oxygen as he takes at home. I had a long talk with the patient, sending compliance with medications and diet. He was discharged to outpatient dialysis. He was also discharged on an increased dose of Lasix. Discussed with his key carrier about more fluid out during dialysis. Physical Exam: Gen:Alert, oriented x3 not pale, not jaundiced CVS:HS I +II, regular, no murmurs RESP: Diminished at lung bases GI: BS present and normal, soft, nontender, no palpable organs EXT:Bilateral leg edema +2, ERICKA-wrap to left foot - Physical Exam Vitals/I&O's: Vital Signs Temp Pulse Resp BP Pulse Ox 98.8 F 72 18 148/101 H 93 08/10/19 09:30 08/10/19 09:30 08/10/19 09:30 08/10/19 09:30 08/10/19 09:42 Oxygen Flow Rate (L/min) [ 6 AMBULATION with Oxygen] Oxygen Flow Rate (L/min) [ 2 AMBULATING on Room Air] Oxygen Flow Rate (L/min) [At 2 REST on Room Air] Oxygen Flow Rate (L/min) 2 Oxygen Delivery Method Nasal Cannula Weight: 120.4 kg Body Mass Index (BMI) 40.4 Finger Stick Blood Glucose 410 Intake and Output for Last 24 Hours 08/08/19 08/09/19 08/10/19 23:59 23:59 23:59 Intake Total 1250 / 1250 120 / 120 Output Total 610 / 610 0 / 0 Balance 640 / 640 120 / 120 Laboratory Results 08/09/19 16:47: POC Glucose 146 H 08/09/19 22:56: POC Glucose 214 H 08/10/19 03:45: POC Glucose 190 H 08/10/19 06:04: Sodium 131 L, Potassium 5.4 H, Chloride 97 L, Carbon Dioxide 26.0, Anion Gap 8, BUN 55 H, Creatinine 5.22 H, Estim Creat Clear Calc 15.83, Est GFR (MDRD) Af Amer 15 L, Est GFR (MDRD) Non-Af 12 L, BUN/Creatinine Ratio 10.5, Glucose 226 H, Calcium 8.1 L 08/10/19 09:03: POC Glucose 263 H Code Visit Inpatient E&M: [id number] Disch Hosp
== END 2019-08-10 10:16 | disposition home or self-care (01) | DRG 291 ==
LOC: ED 22:42 → PCU 23:58
PROVIDERS: Physician Assistant; Admitting Provider Hospitalist; Emergency Provider Emergency Medicine; PCP Internal Medicine; Visit Provider Internal Medicine
DX: I13.2 Hypertensive heart and chronic kidney disease with heart failure and with stage 5 chronic kidney disease, or end stage renal disease (principal); I50.33 Acute on chronic diastolic (congestive) heart failure; N18.6 End stage renal disease; Z68.41 Body mass index [BMI] 40.0-44.9, adult; J96.11 Chronic respiratory failure with hypoxia; E11.22 Type 2 diabetes mellitus with diabetic chronic kidney disease; Z99.2 Dependence on renal dialysis; G47.33 Obstructive sleep apnea (adult) (pediatric); D64.9 Anemia, unspecified; Z99.81 Dependence on supplemental oxygen; Z91.11 Patient's noncompliance with dietary regimen; I27.20 Pulmonary hypertension, unspecified; E66.01 Morbid (severe) obesity due to excess calories; E11.42 Type 2 diabetes mellitus with diabetic polyneuropathy; E78.5 Hyperlipidemia, unspecified; E11.621 Type 2 diabetes mellitus with foot ulcer; L97.529 Non-pressure chronic ulcer of other part of left foot with unspecified severity; Z79.4 Long term (current) use of insulin; L97.519 Non-pressure chronic ulcer of other part of right foot with unspecified severity; I73.9 Peripheral vascular disease, unspecified
CPT/HCPCS: 36415; 71045; 80048; 82962; 83880; 84484; 85025; 93005; 94002; 97802; 99285; A4216; J1940; J2405

== ENCOUNTER 2019-08-12 00:29 | Inpatient (IN) | payer MEDICARE, MEDICAID, SELFPAY ==
[2019-08-09 00:43] VITALS: BMI 40.4
[2019-08-12] VITALS (17 sets, daily range): BP systolic 146–180; BP diastolic 57–83; PULSE 65–85; RESP 12–32; TEMP 36.5–37.6; O2SAT 70–99; BMI 42.5; BMI 41.5; BMI 41.6
--- NOTE | 2019-08-12 00:55 | EKG12_ITS ---
Test Reason : SOB Blood Pressure : / mmHG Vent. Rate : 079 BPM Atrial Rate : 079 BPM P-R Int : 160 ms QRS Dur : 084 ms QT Int : 368 ms P-R-T Axes : 048 040 000 degrees QTc Int : 421 ms Normal sinus rhythm Cannot rule out Inferior infarct , age undetermined Abnormal ECG Confirmed by HOUSTON LOMELI, CANDIE ([id number]), cap sizer KULWINDER MARTINEZ ([id number]) on 08/13/2019 8:04:45 AM Referred By: RADHA Confirmed By:CANDIE CONRAD MD
--- NOTE | 2019-08-12 00:55 | RAD_ITS ---
STUDY: X-RAY CHEST REASON FOR EXAM: Male, 48 years old. PT WAS D/C''D ON MONDAY. SOB WOKE HIM UP FROM SLEEP -- best images possible, patient would not hold still nor hold breath TECHNIQUE: PA and lateral views of the chest. COMPARISON: 08/08/2019. FINDINGS: The lungs are underexpanded with diffuse bilateral, predominantly perihilar groundglass opacities . Mild bilateral pleural effusions. Heart is enlarged. Normal mediastinum and esmer. Normal visualized pulmonary arteries. Normal visualized aortic arch and descending thoracic aorta. Normal visualized thoracic spine. Normal visualized ribs, clavicles, and shoulders. There is no demonstrated abnormality of the visualized soft tissue structures of the upper abdomen. RAD/Chest PA and Lateral IMPRESSION: Bilateral diffuse perihilar interstitial/groundglass opacities with cardiomegaly suggestive of pulmonary edema. Differential diagnosis includes pneumonia. Stable study. Electronically Signed: Graciela Alexander MD at 2:46 EST , Service support ,
--- NOTE | 2019-08-12 00:57 | ED.VISSUMM ---
- ER Visit Summary Date of Service: 08/12/19 Chief Complaint: Shortness of breath History of Present Illness: The patient is a 48 M who presents with shortness of breath that began yesterday evening. Patient states it is gradually gotten worse. Patient states his breathing was worse when he was laying flat trying to sleep. Patient admits to a cough and some rhinorrhea. Patient denies any fevers or chills. Patient denies any chest pain. Patient was recently discharged from the hospital for an exacerbation of congestive heart failure. Patient has a history of end-stage renal disease and takes dialysis on Tuesdays, , and Saturdays. Physical Examination: Vital signs are stable except for a tachypnea of 32 and a pulse oximeter of 70% on room air. Patient is currently on BiPAP. Patient is in no acute distress. Cranial nerves II through XII are intact. Strength is 5/5 bilaterally upper and lower extremities. There are no sensory deficits noted. Heart was regular rate and rhythm. Lungs were diminished bilaterally. There is good respiratory effort. Abdomen is soft. Bowel sounds are normal. There is no tenderness. Extremities are intact. There is 1+ edema of the lower extremities bilaterally. Pedal pulses are equal bilaterally. Test Results: EKG showed sinus rhythm with a rate of 79. There are no acute ST or T wave changes. This was unchanged compared to previous EKG dated 08/08/2019. Arterial blood gas showed a pH of 7.36 with a PCO2 of 48.8, PO2 of 100, bicarb of 27.8, and 97% saturation on BiPAP of 10/5. CBC showed a mild anemia with a hemoglobin of 8.2. Glucose was slightly elevated at 489. Anion gap was normal. CO2 was normal. Alk phos was slightly elevated at 229. Troponin was normal. PA and lateral chest x-ray was obtained. There is evidence of pulmonary edema. This was interpreted by the radiologist and reviewed by myself. Emergency Department Course and Treatment: Patient was given a DuoNeb aerosol here. Patient was given a dose of Lasix and a dose of Humalog here. Patient was maintained on his BiPAP. Case was discussed with the hospitalist. Patient will be admitted to PCU. Patient and family understand and are agreeable with the plan. All questions were answered. Disposition: Admit to hospital Impression: 1. CHF exacerbation 2. Hyperglycemia This note was generated with Dragon dictation software. It may contain incorrect words, spelling, and punctuation that were not noted in review of the chart prior to signing ED Disposition - Plan for ED Patient: Disposition: Acute Care Hospital [facility] Diagnosis: CHF (congestive heart failure) Referrals: Augie Washburn MD [Primary Care Provider] -
[2019-08-12] MEDS: Ipratropium/Albuterol Sulfate 3 ML AMPUL.NEB INHALATION (01:11)
[2019-08-12 01:32] LABS: Absolute Lymphocyte Count 0.44 X10^3/uL (0.83-4.51); Absolute Neutrophil Count 6.4 X10^3/uL (2.0-7.7); Basophil# 0.04 X10^3/uL; Basophil% 0.5 % (0-1); Eosinophil# 0.18 X10^3/uL; Eosinophils% 2.3 % (0-5); Hematocrit 27.4 % (40-54); Hemoglobin 8.2 g/dL (13.0-16.5); Lymphocyte # 0.44 X10^3/ul (4.0); Lymphocyte % 5.5 % (19-41); Mean Corp Hgb Conc 29.9 g/dL (32-36); Mean Corpuscular Hgb 27.8 pg (27.0-32.0); Mean Corpuscular Volume 92.9 fL (80-94); Mean Platelet Vol. 10.4 fl (6.2-12.0); Monocyte# 0.81 X10^3/uL; Monocyte% 10.1 % (0-10); NRBC Flagged by Analyzer 0 % (0-5); Neutrophil # 6.44 X10^3/uL (2.7-7.7); Neutrophil % 80.5 % (47-70); POSITIVE DIFFERENTIAL YES; Platelet Count 206 K/mm3 (150-450); RBC Distribution Width CV 17.1 % (11.6-14.6); RBC Distribution Width SD 58.1 fl (35.1-43.9); Red Blood Count 2.95 M/mm3 (4.6-6.2)
[2019-08-12 01:36] LABS: Allen Test POS; Base Excess 2 mmol/L (-2 to +2); Bicarbonate 27.8 mmol/L (22-26); Blood Gas Specimen Type ART; EPAP 5; FI02 50; IPAP 10; PO2 100 mmHG (75-100); RR 12; SITE L Radial; SO2 97 % (95-99); Time Given 128; Total Carbon Dioxide 29 mmol/L; pCO2 48.8 mmHg (35-45); pH 7.36 (7.35-7.45)
[2019-08-12 01:41] LABS: Differential Indicated SCAN CRITERIA MET
[2019-08-12 01:49] LABS: ALB/GLOB Ratio 0.7 RATIO (0.9-2.4); AST(SGOT) 18 U/L (15-37); Alanine Aminotransfer ALT/SGPT 27 U/L (16-61); Albumin, Serum 2.9 g/dL (3.2-5.0); Alkaline Phosphatase 229 U/L (45-117); Anion Gap 8 (5-15); BUN 53 mg/dL (7-18); BUN/Creat Ratio 9.3 RATIO (10-20); Calcium,Total 7.8 mg/dL (8.5-10.1); Chloride 97 mmol/L (98-107); Creatinine, Serum 5.69 mg/dL (0.70-1.30); EST Glomerular Filtration Rate 11 mL/min (>60); Est Glom Filt Rate - Afr Amer 14 mL/min (>60); Estimated Creatinine Clearance 14.52 ml/min; Globulin 4.4 g/dL (2.2-4.2); Glucose 489 mg/dL (74-106); Potassium 4.5 mmol/L (3.5-5.1); Protein, Total 7.3 g/dL (6.4-8.2); Sodium Level 131 mmol/L (136-145)
[2019-08-12 01:56] LABS: Differential Comment SCANNED; Hypochromasia 2+
--- NOTE | 2019-08-12 02:41 | ED.RN ---
Called Radiology to inquire about results from chest x-rays. Armida said she would call Radiologist.
[2019-08-12] MEDS: Insulin Lispro 100 UNIT/ML INSULN.PEN 15 UNIT SC ×2 (03:12→09:33)
[2019-08-12] MEDS: Furosemide 20 MG/2 ML VIAL IV (03:12)
--- NOTE | 2019-08-12 03:20 | CT_ITS ---
STUDY: CT BRAIN WITHOUT CONTRAST REASON FOR EXAM: Male, 48 years old. SLURRED SPEECH, HERE FOR CHF EXACERBATION, HX KIDNEY DISEASE ON DIALYSIS RADIATION DOSAGE (If Supplied By Facility): CTDIvol = ( 44.99 ) mGy, DLP = ( 846.73 ) mGycm TECHNIQUE: Transaxial CT imaging of the brain was performed without administration of intravenous contrast material. Individualized dose optimization techniques were used for this CT. COMPARISON: 01/14/2019. FINDINGS: Normal soft tissue structures. Normal calvarium. Normal size ventricles and extra-axial spaces for the patient''s age. Normal white matter tracts of the cerebral hemispheres. Normal basal ganglia and thalami. Normal brainstem. Normal cerebellum. There is no intracranial hemorrhage. There are no findings of an acute ischemic infarction. Normal visualized paranasal sinuses. CT/Brain/Head without Contrast IMPRESSION: Normal unenhanced CT scan of the brain, stable study in the interval. Electronically Signed: Graciela Alexander MD at 3:45 EST , Service support ,
--- NOTE | 2019-08-12 03:49 | HP.PCM_ITS ---
Problem List (1) Noncompliance Status: Chronic (2) CHF (congestive heart failure) Status: Acute Qualifiers: Heart failure type: diastolic Heart failure chronicity: chronic Qualified Code(s): I50.32 - Chronic diastolic (congestive) heart failure (3) Pulmonary hypertension Status: Chronic (4) Morbid obesity with BMI of 40.0-44.9, adult Status: Chronic (5) End stage renal disease on dialysis Status: Chronic (6) Peripheral vascular disease Status: Chronic (7) Toe fracture, right Status: Chronic Qualifiers: Toe: lesser toe Fracture type: closed Phalanx: proximal Fracture alignment: nondisplaced (8) Ulcer of right foot with fat layer exposed Status: Chronic (9) Chronic ulcer of left foot with fat layer exposed Status: Chronic (10) Type 2 diabetes mellitus with diabetic polyneuropathy Status: Chronic Qualifiers: Diabetes mellitus tank terminal gauger insulin use: with assisted use Qualified Code(s): E11.42 - Type 2 diabetes mellitus with diabetic polyneuropathy; Z79.4 - assistant terminal manager (current) use of insulin (11) Chronic ulcer of left foot with fat layer exposed Status: Chronic (12) Chronic respiratory failure with hypoxia Status: Chronic (13) HTN (hypertension) Status: Chronic Qualifiers: Hypertension type: essential hypertension Qualified Code(s): I10 - Essential (primary) hypertension (14) Hyperlipidemia Status: Chronic Qualifiers: Hyperlipidemia type: unspecified Qualified Code(s): E78.5 - Hyperlipidemia, unspecified (15) Diabetic neuropathy Status: Chronic Qualifiers: Diabetes mellitus type: type 2 (16) Anemia Status: Chronic Qualifiers: Anemia type: unspecified type Qualified Code(s): D64.9 - Anemia, unspecified (17) SELMA (obstructive sleep apnea) Status: Chronic History of Present Illness Date of Admission: 08/12/19 Chief Complaint: SOB The patient is a 48 year old M with a significant history of hypertension; obstructive sleep apnea; type 2 diabetes; stage II diastolic dysfunction who presented to emergency department with shortness of breath while sleeping. His increased his oxygen by nasal cannula from 4 L/min to 5 L/min without any real relief. Also his reported that earlier on while watching TV patient placed his BiPAP on. Associated with his symptoms is orthopnea and PND. Chest x-ray at emergency department showed a stable steady of bilateral diffuse perihilar interstitial/groundglass opacities with cardiomegaly suggestive of pulmonary edema. His reported that patient had slurry speech. Pharmacological stress test on 03/18/2019 was normal. Past Medical History Past Medical History (Chronic Problems): Chronic Problems (Last Reviewed 08/12/19 @ 05:22 by Eze Rivera MD) Noncompliance (Chronic) Pulmonary hypertension (Chronic) Morbid obesity with BMI of 40.0-44.9, adult (Chronic) End stage renal disease on dialysis (Chronic) Peripheral vascular disease (Chronic) Toe fracture, right (Chronic) Ulcer of right foot with fat layer exposed (Chronic) Chronic ulcer of left foot with fat layer exposed (Chronic) Type 2 diabetes mellitus with diabetic polyneuropathy (Chronic) Chronic ulcer of left foot with fat layer exposed (Chronic) Chronic respiratory failure with hypoxia (Chronic) HTN (hypertension) (Chronic) Hyperlipidemia (Chronic) Diabetic neuropathy (Chronic) Anemia (Chronic) SELMA (obstructive sleep apnea) (Chronic) Medical History: Medical History (Last Reviewed 08/12/19 @ 05:22 by Eze Rivera MD) Chronic respiratory failure with hypoxia (Chronic) J96.11 HTN (hypertension) (Chronic) I10 Hyperlipidemia (Chronic) E78.5 Diabetic neuropathy (Chronic) E11.40 Anemia (Chronic) D64.9 SELMA (obstructive sleep apnea) (Chronic) G47.33 ESRD (end stage renal disease) on dialysis N18.6, Z99.2 cataract surgery, l eye Morbid obesity E66.01 Type 2 diabetes mellitus with other diabetic kidney complication E11.29 dx : age 16 last exacerbation : dka : never hypoglycemic episode : 2012 er visit : 2013 Allergies venom-honey bee [bee venom (honey bee)] Allergy (Verified 08/12/19 00:31) Swelling sulfamethoxazole [From Bactrim] Adverse Reaction (Verified 08/12/19 00:31) Upset Stomach trimethoprim [From Bactrim] Adverse Reaction (Verified 08/12/19 00:31) Upset Stomach Home Medications: Ambulatory Orders Medication Instructions Recorded Atorvastatin Calcium [Lipitor] 20 mg PO QHS 10/11/17 Vits A,C,E/Lutein/Minerals 1 ea PO DAILY 10/11/17 [Ocuvite with Lutein Tablet] Folic Acid/Vitamin B Comp W-C 1 cap PO DAILY 10/27/17 [Nephrocaps, Renaphro] albuterol sulfate 90 mcg/actuation 2 puff INHALATION Q4H PRN #18 g 02/26/18 aerosol inhaler Aspirin E.C. [Ecotrin] 81 mg PO DAILY 03/23/18 Cyclobenzaprine HCl 10 mg PO TID PRN PRN 03/23/18 Fluticasone 0.05% [Flonase Nasal 1 spray NASAL DAILY 03/23/18 [place]] Gabapentin [Neurontin] 300 mg PO BID 03/23/18 isosorbide mononitrate 30 mg 30 mg PO DAILY #30 tab 07/24/18 tablet,extended release 24 hr Metoprolol Tartrate [Lopressor 50 mg PO BID 03/12/19 (beta khoa)] Omeprazole 40 mg PO DAILY 03/12/19 proMETHazine tablet [Phenergan 25 mg PO TID PRN 03/13/19 tablet] Sevelamer HCl [Renagel] 2,400 mg PO TID #0 03/20/19 traZODone [Desyrel] 50 mg PO QHS 07/06/19 Amlodipine [Norvasc] 10 mg PO DAILY #30 tab 07/12/19 Collagenase [Santyl] 1 applic TOPICAL DAILY tube 07/24/19 Sertraline HCl [Zoloft] 25 mg PO DAILY 08/05/19 Acetaminophen [Tylenol Tablet] 650 mg PO Q6H PRN PRN tab 08/08/19 Insulin Lispro [Humalog KwikPen] 15 unit SUBCUT 0800,1200,1700 08/08/19 insuln.pen Furosemide [Lasix] 80 mg PO BIDLX #60 tab 08/10/19 Insulin Lispro [Humalog KwikPen] See Protocol SUBCUT ACHS 08/10/19 Surgical History: Surgical History (Last Reviewed 08/12/19 @ 05:22 by Eze Rivera MD) S/P tonsillectomy Z90.89 dialysis fistula Rt Arm Surgical History: tonsillectomy, - - Colectomy, right upper extremity aVF, right lower extremity angioplasty, right fifth ray resection. Psychiatric History: No pertinent psych hx Lives: Spouse/ Significant Other Smoking Status: Never smoker - *Family History Maternal Family History: Family History (Last Reviewed 08/12/19 @ 05:22 by Eze Rivera MD) Mother Hypertension Heart disease Diabetes Father Hypertension Heart disease Brother Heart disease History Items: Diabetes, Heart Disease, Hypertension, Renal Disease Paternal Family History: Family History (Last Reviewed 08/12/19 @ 05:22 by Eze Rivera MD) Mother Hypertension Heart disease Diabetes Father Hypertension Heart disease Brother Heart disease History Items: Cancer - liver, Diabetes, Heart Disease Review of Systems Constitutional: Denies: Chills, Fever, Weight Change HEENT: Denies: Head Aches, Sinus Congestion, Sinus Drainage Cardiovascular: Reports: Orthopnea, Paroxysmal Noc. Dyspnea. Denies: Chest Pain, Palpitations Respiratory: Reports: Shortness of breath at rest. Denies: Cough, Sputum production Gastrointestinal: Denies: Abdominal Pain, Nausea, Vomiting Genitourinary: Denies: Dysuria Musculoskeletal: Denies: Joint Pain, Joint Tenderness Skin: Denies: Rash, Wounds Neurological: Reports: Slurred speech. Denies: Focal weakness, Numbness, Tingling Psychiatric: Denies: Anxiety, Depression, Homicidal Ideations, Suicidal Ideations Hematologic/ Lymphatic: Denies: Easy Bruising, Easy Bleeding VTE Information - Inpt Only VTE Present on Admission: No VTE Mechan Device Prophylaxis: None VTE Pharm Prophylaxis ordered?: Yes Patient Problems: Active and Suspected Problems (Last Reviewed 08/12/19 @ 05:22 by Eze Rivera MD) CHF (congestive heart failure) (Acute) - Physical Exam Vitals/I&O's: Vital Signs Temp Pulse Resp BP Pulse Ox 98.5 F 78 16 165/67 H 95 08/12/19 00:31 08/12/19 02:52 08/12/19 02:52 08/12/19 00:31 08/12/19 02:52 Oxygen Delivery Method CPAP Weight: 123.1 kg Body Mass Index (BMI) 42.5 Finger Stick Blood Glucose 410 General: Oriented x3, Lethargic HEENT: Atraumatic, PERRLA, EOMI, Normocephalic Neck: Supple, Trachea Midline Lungs: Clear to auscultation, Normal air movement Cardiovascular: Regular rate, Normal S1, Normal S2, No murmurs Abdomen: Bowel Sounds Present, Soft, Non Tender Extremities: Capillary Refill Less than 3 Seconds, Edema - mild Skin: Ulcer/ Wound - lateral side of bilateral feet at the plantar sides Musculoskeletal: No Muscle Wasting Neurological: - - Patient is lethargic and is not following commands. Psych/Mental Status: Normal Affect Laboratory Results 08/12/19 01:10: WBC 8.0, RBC 2.95 L, Hgb 8.2 L, Hct 27.4 L, MCV 92.9, MCH 27.8, MCHC 29.9 L, RDW Std Deviation 58.1 H, RDW Coeff of Roberto 17.1 H, Plt Count 206, MPV 10.4, Immature Gran % (Auto) 1.100 H, Neut % (Auto) 80.5 H, Lymph % (Auto) 5.5 L, [place] % (Auto) 10.1 H, Eos % (Auto) 2.3, Baso % (Auto) 0.5, Absolute Neuts (auto) 6.4, Absolute Lymphs (auto) 0.44 L, Nucleated RBC % 0, Differential Comment SCANNED, Hypochromasia 2+ 08/12/19 01:10: Sodium 131 L, Potassium 4.5, Chloride 97 L, Carbon Dioxide 26.0, Anion Gap 8, BUN 53 H, Creatinine 5.69 H, Estim Creat Clear Calc 14.52, Est GFR (MDRD) Af Amer 14 L, Est GFR (MDRD) Non-Af 11 L, BUN/Creatinine Ratio 9.3 L, Glucose 489 H*, Calcium 7.8 L, Total Bilirubin 0.90, AST 18, ALT 27, Alkaline Phosphatase 229 H, Troponin I < 0.015, Total Protein 7.3, Albumin 2.9 L, Globulin 4.4 H, Albumin/Globulin Ratio 0.7 L 08/12/19 01:32: Specimen Type ART, Sample Site L Radial, pH 7.36, Bicarbonate Actual 27.8 H, POC Total CO2 29, Base Excess 2, O2 Saturation 97, O2 % 50, ABG pCO2 48.8 H, ABG pO2 100, Brennan Test POS, Respiration Rate 12, O2 Delivery Device Bi / C PAP, EPAP 5, IPAP 10, Blood Gas Notified Whom ED , Blood Gas Notified Time 128 Assessment/Plan All Active Problems (Last Reviewed 08/12/19 @ 05:22 by Eze Rivera MD) CHF (congestive heart failure) (Acute) The patient is a 48 year old M with a significant history of hypertension; obstructive sleep apnea; type 2 diabetes; stage II diastolic dysfunction who presented to emergency department with shortness of breath; orthopnea and PND; and with stable pulmonary edema. Acute exacerbation of diastolic heart failure. Echocardiogram on 03/16/2019 showed stage II diastolic heart failure. Pulmonary edema findings could be multifactorial from diastolic heart failure and from end-stage renal disease. He takes Lasix 80 mg p.o. twice daily. Received Lasix 20 mg IV at emergency department. Will give additional 60 mg of Lasix IV x1; and then Lasix 80 mg IV twice daily. Patient get dialysis Monday and Monday. BiPAP placed by the squad and continued at the emergency department. BiPAP continued. Initial troponin negative trend troponin Hypertension On presentation blood pressure was not within goal Home metoprolol; Imdur and amlodipine continued. Trend blood pressure and adjust blood pressure medications. End-stage renal disease Likely from hypertension and diabetes. On dialysis; Monday and Saturdays. 2 g potassium restriction diet; low phosphate diet. Nephrocaps and phosphate binders ordered. Nephrology consult Diabetes mellitus with nephropathy (end-stage renal disease) and neuropathy With complications including diabetic nephropathy. Patient with hyperglycemia Short acting insulin; Humalog 15 units subcutaneous given at the emergency department. Not acidotic to consider as DKA.. Continue home prandial insulin. Accu-Chek QA CHS and 3 AM with correction scale insulin. Long-acting insulin added to her regimen. On home gabapentin. Held because of lethargy. Depression/anxiety Zoloft continued Diabetic ulcer bilateral feet Dry dressing continued. Obstructive sleep apnea. BiPAP now; nightly and PRN. Speech and lethargy. Emergent department doctor to get CAT scan of the head. CAT scan of the head showed a normal study. Can not rule out malingering. We will hold sedative including trazodone and gabapentin for now. 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 DVT prophylaxis Subcutaneous heparin. Code Visit Inpatient E&M: 44951 Init Hosp L3
[2019-08-12] MEDS: Furosemide 100 MG/10 ML Vial 60 MG IV (03:58)
[2019-08-12 04:45] LABS: Bedside Glucose 315 mg/dL (70-110)
[2019-08-12] MEDS: 0.9% Saline Lock 10 ML Syringe IV ×2 (05:36→09:37)
[2019-08-12] MEDS: hydrALAZINE 20 MG/ML Vial 5 MG IV (05:36)
[2019-08-12 07:26] LABS: Bedside Glucose 235 mg/dL (70-110)
[2019-08-12] MEDS: Insulin Lispro 100 UNIT/ML INSULN.PEN SC ×3 (09:34→17:04)
[2019-08-12] MEDS: Enoxaparin 30 MG/0.3 ML Syringe SC (09:36)
[2019-08-12] MEDS: Furosemide 100 MG/10 ML Vial 80 MG IV ×2 (09:37→17:05)
[2019-08-12] MEDS: Collagenase 30gm Tube 1 APPLIC TOPICAL (09:41)
[2019-08-12] MEDS: Fluticasone 0.05% 1 SPRAY NASAL.SRY NASAL (09:42)
[2019-08-12] MEDS: SEVELAMER CARBONATE 800 MG TABLET 2400 MG PO ×3 (09:49→17:05)
[2019-08-12] MEDS: Folic Acid/Vitamin B Comp W-C 1 Capsule 1 CAP PO (09:49)
[2019-08-12] MEDS: Multivitamin (Healthy Eyes) Capsule 1 CAP PO (09:50)
[2019-08-12] MEDS: Aspirin E.C. 81 MG Tablet PO (09:50)
[2019-08-12] MEDS: Isosorbide Mononitrate 30 MG Tablet PO (09:50)
[2019-08-12] MEDS: amLODIPine 10 MG Tablet PO (09:50)
[2019-08-12] MEDS: Metoprolol Tartrate 50 MG Tablet PO (09:50)
[2019-08-12] MEDS: Pantoprazole Sodium 40 MG Tablet PO (09:50)
[2019-08-12] MEDS: Sertraline 50 MG Tablet 25 MG PO (09:51)
[2019-08-12 10:00] LABS: Bedside Glucose 191 mg/dL (70-110)
--- NOTE | 2019-08-12 11:27 | CASEMGMT ---
Addendum entered by Ade Gonzalez 08/12/19 13:44: Emely from [facility] contact info [phone]. Neville MACARIO CM Original Note: This RN CM received a call from Emely at [facility] to discuss discharge planning of pt d/t recent frequent admissions. [facility] hasn't even been able to get out to home d/t pt not staying home long enough before coming back to hospital. She inquires about SNF for pt at discharge and this RN CM informed her that that was attempted in July 2019 and pt was only there a few days, then left stating he didn't need to be there and then came back to hospital a day later, voices understanding. She also stated concern regarding pt's home and this RN CM updated her that Minoo VILLALOBOS had spoken to [facility] regarding same and that pt/ had informed [facility] that they were moving out of state and that is why [facility] housing did not f/u and pt/ never called them back regarding not moving. Advised Emely that this RN CM would keep her up to date and that new orders for HHC would be placed again, voices understanding. Emely states that they will still take pt again at this time but will notify this RN CM if something changes. Advised her that palliative referral was previously made as well, voices understanding. Order was placed for Inpt palliative referral at this time and per Minoo VILLALOBOS, they will be coming out this afternoon to meet with pt/. CM/SW to follow for any further discharge planning/needs/resources/concerns. See CM assessment/readmission notes from previous admissions. Neville MACARIO CM
--- NOTE | 2019-08-12 11:34 | CASEMGMT ---
SW received a call from patient's 's grandmother. She said someone needs to do something for patient. She said, He is dying. She said, I know for a fact there is black mold in their home. She asked how they get into another apartment. WILFREDO told her SW has done all that SW is able to do from here. WILFREDO explained patient needs to schedule an appt with Nina at [facility]. WILFREDO also explained that WILFREDO gave patient's nurse outreach case manager with [facility] and [facility] the name and fax number for Marilyn where a letter indicating condition of home needs to go. She said she made a pineapple pie and patient would not touch it. She said he is also afraid to drink water. She explained she is frustrated with Patricia Minor, patient's nurse outreach case manager at [facility]. She thanked WILFREDO for listening. Agatha HAMMER
[2019-08-12] MEDS: Insulin Lispro 100 UNIT/ML INSULN.PEN 18 UNIT SC ×2 (12:03→17:03)
[2019-08-12 12:11] LABS: Bedside Glucose 223 mg/dL (70-110)
--- NOTE | 2019-08-12 12:23 | CASEMGMT ---
Physician is in agreement with a Palliative Care consult while patient is here at [facility]. Patient already signed up with Palliative, but has not been able to meet with the Nurse Practitioner yet. WILFREDO spoke with Jayla at Palliative Care and Rea will be able to come to [facility] to meet with patient and his today. Agatha HAMMER
--- NOTE | 2019-08-12 12:40 | CASEMGMT ---
Patient has a Healthcare Power of Cloth Handler and Healthcare Living Will on file at [facility]. Agatha SHEETS MSW
--- NOTE | 2019-08-12 13:29 | PCM.PN.HOSP ---
<Zachariah Meza - Last Filed: 08/12/19 13:29> Patient Problems: Active and Suspected Problems (Last Reviewed 08/12/19 @ 05:22 by Eze Rievra MD) CHF (congestive heart failure) (Acute) Reason for Visit: Pt resting upright side of bed NAD, present. C/o ongoing SOB. LE edema is about the same. He has not been checking his weights. He was due for dialysis today but felt too SOB to make it. He reports he did make it to dialysis after DC Monday. He reports he was compliant with his fluid and food restriction at home this time. Dry cough. No fever/chills. He has not been using LE compression. Vitals/I&O's: Vital Signs Temp Pulse Resp BP Pulse Ox 99.6 F H 71 18 151/57 H 96 08/12/19 09:30 08/12/19 09:50 08/12/19 09:30 08/12/19 09:50 08/12/19 09:30 Oxygen Flow Rate (L/min) 15 Oxygen Delivery Method Bi-pap Weight: 265 lb 10.512 oz Body Mass Index (BMI) 41.5 Finger Stick Blood Glucose 410 Intake and Output for Last 24 Hours 08/10/19 08/11/19 08/12/19 23:59 23:59 23:59 Intake Total 240 / 240 Output Total 0 / 0 Balance 240 / 240 General: Alert, Oriented x3, Cooperative HEENT: Atraumatic, PERRLA, EOMI, Normocephalic Neck: Supple, No JVD, Negative Carotid Bruits Lungs: Clear to auscultation, Diminished Cardiovascular: Regular rate, No murmurs Abdomen: Bowel Sounds Present, Soft, Non Tender, Obese Extremities: Capillary Refill Less than 3 Seconds, Edema - 2+ pitting edema BLE Skin: No rashes, No breakdown Musculoskeletal: No Tenderness to Palpation of Joints or Extremities Neurological: Cranial nerves II-XII grossly intact Psych/Mental Status: Normal Affect, Appropriate, Alert and oriented to time, place, person, mood and affect Laboratory Results 08/12/19 01:10: WBC 8.0, RBC 2.95 L, Hgb 8.2 L, Hct 27.4 L, MCV 92.9, MCH 27.8, MCHC 29.9 L, RDW Std Deviation 58.1 H, RDW Coeff of Roberto 17.1 H, Plt Count 206, MPV 10.4, Immature Gran % (Auto) 1.100 H, Neut % (Auto) 80.5 H, Lymph % (Auto) 5.5 L, [place] % (Auto) 10.1 H, Eos % (Auto) 2.3, Baso % (Auto) 0.5, Absolute Neuts (auto) 6.4, Absolute Lymphs (auto) 0.44 L, Nucleated RBC % 0, Differential Comment SCANNED, Hypochromasia 2+ 08/12/19 01:10: Sodium 131 L, Potassium 4.5, Chloride 97 L, Carbon Dioxide 26.0, Anion Gap 8, BUN 53 H, Creatinine 5.69 H, Estim Creat Clear Calc 14.52, Est GFR (MDRD) Af Amer 14 L, Est GFR (MDRD) Non-Af 11 L, BUN/Creatinine Ratio 9.3 L, Glucose 489 H*, Calcium 7.8 L, Total Bilirubin 0.90, AST 18, ALT 27, Alkaline Phosphatase 229 H, Troponin I < 0.015, Total Protein 7.3, Albumin 2.9 L, Globulin 4.4 H, Albumin/Globulin Ratio 0.7 L 08/12/19 01:32: Specimen Type ART, Sample Site L Radial, pH 7.36, Bicarbonate Actual 27.8 H, POC Total CO2 29, Base Excess 2, O2 Saturation 97, O2 % 50, ABG pCO2 48.8 H, ABG pO2 100, Brennan Test POS, Respiration Rate 12, O2 Delivery Device Bi / C PAP, EPAP 5, IPAP 10, Blood Gas Notified Whom ED , Blood Gas Notified Time 128 08/12/19 04:38: POC Glucose 315 H 08/12/19 04:48: Troponin I < 0.015 08/12/19 06:50: Troponin I < 0.015 08/12/19 07:18: POC Glucose 235 H 08/12/19 09:28: POC Glucose 191 H 08/12/19 12:01: POC Glucose 223 H Current Medications Acetaminophen (Tylenol) 650 mg PO Q6H PRN PRN PRN Reason: Pain Score 1-10/Temp > 100.7 F Amlodipine Besylate (Norvasc) 10 mg PO DAILY [facility] Last Admin: 08/12/19 09:50 Dose: 10 mg Documented by: [facility] Last Admin: 08/12/19 09:50 Dose: 81 mg Documented by: Atorvastatin Calcium (Lipitor) 20 mg PO QHS [facility] Collagenase (Santyl) 1 applic TOPICAL DAILY [facility]; Protocol Last Admin: 08/12/19 09:41 Dose: 1 applic Documented by: Cyclobenzaprine HCl (Flexeril) 10 mg PO TID PRN PRN PRN Reason: SPASMS Enoxaparin Sodium (Lovenox) 30 mg SC DAILY [facility] Last Admin: 08/12/19 09:36 Dose: 30 mg Documented by: Fluticasone Propionate (Flonase Nasal [place]) 1 spray NASAL DAILY [facility] Last Admin: 08/12/19 09:42 Dose: 1 spray Documented by: Furosemide (Lasix) 80 mg IV BIDLX [facility] Last Admin: 08/12/19 09:37 Dose: 80 mg Documented by: Glucagon () 1 mg IM .X1 PRN PRN Reason: Hypoglycemia Hydralazine HCl (Apresoline Iv) 5 mg IV Q4H PRN PRN PRN Reason: SBP > 160 Last Admin: 08/12/19 05:36 Dose: 5 mg Documented by: Sodium Chloride () 250 mls @ 15 mls/hr IV .[id number] PRN PRN Reason: Saline Flush Sodium Chloride () 250 mls @ 15 mls/hr IV .[id number] PRN PRN Reason: Additional IVPB Infusion Dextrose (Dextrose 10%-Water) 250 mls @ 999 mls/hr IV .Q16M PRN; Protocol PRN Reason: HYPOGLYCEMIA Insulin Glargine (Lantus (Bkc)) 20 units SC QHS [facility] Last Admin: 08/12/19 04:59 Dose: 20 u Documented by: Insulin Human Lispro (Humalog Kwikpen (Bkc)) 0 unit SC ACHS & 3AM [facility]; Protocol Last Admin: 08/12/19 12:03 Dose: 4 unit Documented by: Insulin Human Lispro (Humalog Kwikpen (Bkc)) 18 unit SC 0800,1200,1700 [facility] Last Admin: 08/12/19 12:03 Dose: 18 unit Documented by: Isosorbide Mononitrate (Imdur) 30 mg PO DAILY [facility] Last Admin: 08/12/19 09:50 Dose: 30 mg Documented by: Metoprolol Tartrate (Lopressor (Beta Emmanuel)) 50 mg PO BID [facility] Last Admin: 08/12/19 09:50 Dose: 50 mg Documented by: Multivit/Ca Carb/B Cmplx/FA/Prenat (Nephrocaps, Renaphro) 1 capsule PO DAILY [facility] Last Admin: 08/12/19 09:49 Dose: 1 capsule Documented by: Multivitamins/Minerals (Healthy Eyes (Bkc)) 1 capsule PO DAILY [facility] Last Admin: 08/12/19 09:50 Dose: 1 capsule Documented by: Pantoprazole Sodium (Protonix) 40 mg PO DAILY [facility] Last Admin: 08/12/19 09:50 Dose: 40 mg Documented by: Sertraline HCl (Zoloft) 25 mg PO DAILY [facility] Last Admin: 08/12/19 09:51 Dose: 25 mg Documented by: Sevelamer Carbonate (Renvela) 2,400 mg PO TIDCM [facility] Last Admin: 08/12/19 12:03 Dose: 2,400 mg Documented by: Sodium Chloride () 10 - 40 ml IV UD PRN PRN Reason: SALINE FLUSH Last Admin: 08/12/19 09:37 Dose: 10 ml Documented by: STROKE Vital Signs/Narrative: Vital Signs Temp Pulse Resp BP Pulse Ox 08/12/19 09:50 71 151/57 H 08/12/19 09:30 99.6 F H 71 18 151/57 H 96 Medical Necessity - Tobacco Use Smoking Status: Never smoker Assessment/Plan All Active Problems (Last Reviewed 08/12/19 @ 05:22 by Eze Rivera MD) CHF (congestive heart failure) (Acute) 1. Acute on chronic diastolic CHF, complicated by pulmonary Htn. - suspect ongoing noncompliance with diet, fluid restriction. C/s Dr. Gregorio for dialysis. Maintain strict renal diet, low sodium, fluid restriction 1500cc/day. Continue IV lasix - still making some urine. Trop neg. Chronic hyponatremia. continue fluid restriction. 2. ESRD - per Dr. Gregorio 3. HTN - fairly elevated at admission, possibly contributing to CHF exacerbation. Improved at this point. Will defer med adjustments until after dialysis. 4. Uncontrolled DMt2 - increased mealtime insulin. 5. Chronic anemia - stable. 6. Chronic hypoxic respiratory failure - he needs to continue using O2 at all times. He has expressed reluctance to use o2 all the time and is afraid of becoming addicted to it. 7. SELMA - continue bipap qhs. DVT ppx: lovenox This patient was seen by Zachariah Meza PA-C under the supervision of Doctor Rodrick. <Isma Mensah - Last Filed: 08/12/19 14:10> Subjective: Breathing well on oxygen. States that he has been compliant with diet since his last discharge. Vitals/I&O's: Vital Signs Temp Pulse Resp BP Pulse Ox 37.6 C H 71 18 151/57 H 96 08/12/19 09:30 08/12/19 09:50 08/12/19 09:30 08/12/19 09:50 08/12/19 09:30 Oxygen Flow Rate (L/min) 15 Oxygen Delivery Method Bi-pap Weight: 120.5 kg Body Mass Index (BMI) 41.5 Finger Stick Blood Glucose 410 Intake and Output for Last 24 Hours 08/10/19 08/11/19 08/12/19 23:59 23:59 23:59 Intake Total 240 / 240 Output Total 0 / 0 Balance 240 / 240 General: Alert, Cooperative HEENT: Atraumatic, Normocephalic Oral: Moist Mucosa, No Gingival or Mucosal Lesions/ Ulcerations Neck: No Nodes, Trachea Midline Lungs: Clear to auscultation, Normal air movement, No rhonchi, No wheeze, No rales Cardiovascular: Regular rate, Regular Rhythm, Normal S1, Normal S2, No murmurs Abdomen: Bowel Sounds Present, Soft, Non Tender, Non-Distended Extremities: Edema Skin: No rashes, No breakdown Laboratory Results 08/12/19 01:10: WBC 8.0, RBC 2.95 L, Hgb 8.2 L, Hct 27.4 L, MCV 92.9, MCH 27.8, MCHC 29.9 L, RDW Std Deviation 58.1 H, RDW Coeff of Roberto 17.1 H, Plt Count 206, MPV 10.4, Immature Gran % (Auto) 1.100 H, Neut % (Auto) 80.5 H, Lymph % (Auto) 5.5 L, [place] % (Auto) 10.1 H, Eos % (Auto) 2.3, Baso % (Auto) 0.5, Absolute Neuts (auto) 6.4, Absolute Lymphs (auto) 0.44 L, Nucleated RBC % 0, Differential Comment SCANNED, Hypochromasia 2+ 08/12/19 01:10: Sodium 131 L, Potassium 4.5, Chloride 97 L, Carbon Dioxide 26.0, Anion Gap 8, BUN 53 H, Creatinine 5.69 H, Estim Creat Clear Calc 14.52, Est GFR (MDRD) Af Amer 14 L, Est GFR (MDRD) Non-Af 11 L, BUN/Creatinine Ratio 9.3 L, Glucose 489 H*, Calcium 7.8 L, Total Bilirubin 0.90, AST 18, ALT 27, Alkaline Phosphatase 229 H, Troponin I < 0.015, Total Protein 7.3, Albumin 2.9 L, Globulin 4.4 H, Albumin/Globulin Ratio 0.7 L 08/12/19 01:32: Specimen Type ART, Sample Site L Radial, pH 7.36, Bicarbonate Actual 27.8 H, POC Total CO2 29, Base Excess 2, O2 Saturation 97, O2 % 50, ABG pCO2 48.8 H, ABG pO2 100, Brennan Test POS, Respiration Rate 12, O2 Delivery Device Bi / C PAP, EPAP 5, IPAP 10, Blood Gas Notified Whom ED , Blood Gas Notified Time 128 08/12/19 04:38: POC Glucose 315 H 08/12/19 04:48: Troponin I < 0.015 08/12/19 06:50: Troponin I < 0.015 08/12/19 07:18: POC Glucose 235 H 08/12/19 09:28: POC Glucose 191 H 08/12/19 12:01: POC Glucose 223 H Current Medications Acetaminophen (Tylenol) 650 mg PO Q6H PRN PRN PRN Reason: Pain Score 1-10/Temp > 100.7 F Amlodipine Besylate (Norvasc) 10 mg PO DAILY [facility] Last Admin: 08/12/19 09:50 Dose: 10 mg Documented by: [facility]) [facility] Last Admin: 08/12/19 09:50 Dose: 81 mg Documented by: Atorvastatin Calcium (Lipitor) 20 mg PO QHS [facility] Collagenase (Santyl) 1 applic TOPICAL DAILY [facility]; Protocol Last Admin: 08/12/19 09:41 Dose: 1 applic Documented by: Cyclobenzaprine HCl (Flexeril) 10 mg PO TID PRN PRN PRN Reason: SPASMS Enoxaparin Sodium (Lovenox) 30 mg SC DAILY [facility] Last Admin: 08/12/19 09:36 Dose: 30 mg Documented by: Fluticasone Propionate (Flonase Nasal [place]) 1 spray NASAL DAILY [facility] Last Admin: 08/12/19 09:42 Dose: 1 spray Documented by: Furosemide (Lasix) 80 mg IV BIDLX [facility] Last Admin: 08/12/19 09:37 Dose: 80 mg Documented by: Glucagon () 1 mg IM .X1 PRN PRN Reason: Hypoglycemia Hydralazine HCl (Apresoline Iv) 5 mg IV Q4H PRN PRN PRN Reason: SBP > 160 Last Admin: 08/12/19 05:36 Dose: 5 mg Documented by: Sodium Chloride () 250 mls @ 15 mls/hr IV .[id number] PRN PRN Reason: Saline Flush Sodium Chloride () 250 mls @ 15 mls/hr IV .[id number] PRN PRN Reason: Additional IVPB Infusion Dextrose (Dextrose 10%-Water) 250 mls @ 999 mls/hr IV .Q16M PRN; Protocol PRN Reason: HYPOGLYCEMIA Insulin Glargine (Lantus (Bk)) 20 units SC QHS [facility] Last Admin: 08/12/19 04:59 Dose: 20 u Documented by: Insulin Human Lispro (Humalog Kwikpen ([facility])) 0 unit SC ACHS & 3AM [facility]; Protocol Last Admin: 08/12/19 12:03 Dose: 4 unit Documented by: Insulin Human Lispro (Humalog Kwikpen (Bk)) 18 unit SC 0800,1200,1700 [facility] Last Admin: 08/12/19 12:03 Dose: 18 unit Documented by: Isosorbide Mononitrate (Imdur) 30 mg PO DAILY [facility] Last Admin: 08/12/19 09:50 Dose: 30 mg Documented by: Metoprolol Tartrate (Lopressor (Beta Emmanuel)) 50 mg PO BID [facility] Last Admin: 08/12/19 09:50 Dose: 50 mg Documented by: Multivit/Ca Carb/B Cmplx/FA/Prenat (Nephrocaps, Renaphro) 1 capsule PO DAILY [facility] Last Admin: 08/12/19 09:49 Dose: 1 capsule Documented by: Multivitamins/Minerals (Healthy Eyes (Bkc)) 1 capsule PO DAILY [facility] Last Admin: 08/12/19 09:50 Dose: 1 capsule Documented by: Pantoprazole Sodium (Protonix) 40 mg PO DAILY [facility] Last Admin: 08/12/19 09:50 Dose: 40 mg Documented by: Sertraline HCl (Zoloft) 25 mg PO DAILY [facility] Last Admin: 08/12/19 09:51 Dose: 25 mg Documented by: Sevelamer Carbonate (Renvela) 2,400 mg PO TIDCM [facility] Last Admin: 08/12/19 12:03 Dose: 2,400 mg Documented by: Sodium Chloride () 10 - 40 ml IV UD PRN PRN Reason: SALINE FLUSH Last Admin: 08/12/19 09:37 Dose: 10 ml Documented by: Assessment/Plan Patient seen and examined independently. Data reviewed. I agree with the above note by the physician trust administrative assistant. 1. Acute heart failure with preserved ejection fraction: Patient had an EF of 60% from March 16, 2019. This is now the patient's 6 admission this calendar year. Had very long conversation with the patient and his . Patient states that he has been compliant with his diet and salt intake. Told patient that will take him at his word but informed him that previously it is been documented that he has been noncompliant with such. Told him given his frequent nature of rehospitalization very short period of time plan is to watch him past. Of time where he would be stable for discharge and to ensure that following a strict diet blood pressure management continue with his dialysis and that if he stays stable while he is here in the hospital that we would have enough information that if he were to present again for CHF that the fall to would lie squarely in his lap. His is present during this encounter and they both expressed understanding. Feel that his overall care will involve managing his blood pressure, salt intake, fluid intake and dialysis and diuresis. Did tell the patient that is possible that the patient may have had flash pulmonary edema as his blood pressure was extremely high. But still I am concerned that this may be just due to dietary indiscretions on the patient's behalf. Greater than 35 minutes of which greater than 50% of time was counseling the patient is about the current plan as discussed above. Code Visit Procedures: Other Procedure - See Report - nonbillable rounding
--- NOTE | 2019-08-12 14:09 | PCM.CONS.P ---
Problem List (1) CHF (congestive heart failure) Status: Acute Qualifiers: Heart failure type: diastolic Heart failure chronicity: chronic Qualified Code(s): I50.32 - Chronic diastolic (congestive) heart failure (2) End stage renal disease on dialysis Status: Chronic History of Present Illness Date of Consult: 08/12/19 Reason for Consult: Readmissions, medical decision making. Requesting physician: [] Primary care physician: Augie Washburn MD - History of Present Illness The patient is a 48 year old M [] Patient Problems: Chronic Problems (Last Reviewed 08/12/19 @ 05:22 by Eze Rivera MD) Noncompliance (Chronic) Pulmonary hypertension (Chronic) Morbid obesity with BMI of 40.0-44.9, adult (Chronic) End stage renal disease on dialysis (Chronic) Peripheral vascular disease (Chronic) Toe fracture, right (Chronic) Ulcer of right foot with fat layer exposed (Chronic) Chronic ulcer of left foot with fat layer exposed (Chronic) Type 2 diabetes mellitus with diabetic polyneuropathy (Chronic) Chronic ulcer of left foot with fat layer exposed (Chronic) Chronic respiratory failure with hypoxia (Chronic) HTN (hypertension) (Chronic) Hyperlipidemia (Chronic) Diabetic neuropathy (Chronic) Anemia (Chronic) SELMA (obstructive sleep apnea) (Chronic) Surgical History: tonsillectomy, - - Colectomy, right upper extremity aVF, right lower extremity angioplasty, right fifth ray resection. Psychiatric History: No pertinent psych hx Home Medications: Ambulatory Orders Medication Instructions Recorded Atorvastatin Calcium [Lipitor] 20 mg PO QHS 10/11/17 Vits A,C,E/Lutein/Minerals 1 ea PO DAILY 10/11/17 [Ocuvite with Lutein Tablet] Folic Acid/Vitamin B Comp W-C 1 cap PO DAILY 10/27/17 [Nephrocaps, Renaphro] albuterol sulfate 90 mcg/actuation 2 puff INHALATION Q4H PRN #18 g 02/26/18 aerosol inhaler Aspirin E.C. [Ecotrin] 81 mg PO DAILY 03/23/18 Cyclobenzaprine HCl 10 mg PO TID PRN PRN 03/23/18 Fluticasone 0.05% [Flonase Nasal 1 spray NASAL DAILY 03/23/18 [place]] Gabapentin [Neurontin] 300 mg PO BID 03/23/18 isosorbide mononitrate 30 mg 30 mg PO DAILY #30 tab 01/22/19 tablet,extended release 24 hr Metoprolol Tartrate [Lopressor 50 mg PO BID 03/12/19 (beta khoa)] Omeprazole 40 mg PO DAILY 03/12/19 proMETHazine tablet [Phenergan 25 mg PO TID PRN 03/13/19 tablet] Sevelamer HCl [Renagel] 2,400 mg PO TID #0 03/20/19 traZODone [Desyrel] 50 mg PO QHS 07/06/19 Amlodipine [Norvasc] 10 mg PO DAILY #30 tab 07/12/19 Collagenase [Santyl] 1 applic TOPICAL DAILY tube 07/24/19 Sertraline HCl [Zoloft] 25 mg PO DAILY 08/05/19 Acetaminophen [Tylenol Tablet] 650 mg PO Q6H PRN PRN tab 08/08/19 Insulin Lispro [Humalog KwikPen] 15 unit SUBCUT 0800,1200,1700 08/08/19 insuln.pen Furosemide [Lasix] 80 mg PO BIDLX #60 tab 08/10/19 Insulin Lispro [Humalog KwikPen] See Protocol SUBCUT ACHS 08/10/19 Allergies venom-honey bee [bee venom (honey bee)] Allergy (Verified 08/12/19 00:31) Swelling sulfamethoxazole [From Bactrim] Adverse Reaction (Verified 08/12/19 00:31) Upset Stomach trimethoprim [From Bactrim] Adverse Reaction (Verified 08/12/19 00:31) Upset Stomach Maternal Family History: Family History (Last Reviewed 08/12/19 @ 05:22 by Eze Rivera MD) Mother Hypertension Heart disease Diabetes Father Hypertension Heart disease Brother Heart disease History Items: Diabetes, Heart Disease, Hypertension, Renal Disease Paternal Family History: Family History (Last Reviewed 08/12/19 @ 05:22 by Eze Rivera MD) Mother Hypertension Heart disease Diabetes Father Hypertension Heart disease Brother Heart disease History Items: Cancer - liver, Diabetes, Heart Disease - Social History Lives: Spouse/ Significant Other Smoking Status: Never smoker Physical Exam Objective: Vital Signs Temp Pulse Resp BP Pulse Ox 99.6 F H 71 18 151/57 H 96 08/12/19 09:30 08/12/19 09:50 08/12/19 09:30 08/12/19 09:50 08/12/19 09:30 Oxygen Flow Rate (L/min) 15 Oxygen Delivery Method Bi-pap Weight: 265 lb 10.512 oz Body Mass Index (BMI) 41.5 Finger Stick Blood Glucose 410 Intake and Output for Last 24 Hours 08/10/19 08/11/19 08/12/19 23:59 23:59 23:59 Intake Total 240 / 240 Output Total 0 / 0 Balance 240 / 240 Laboratory Tests Past 24 Hrs 08/12/19 08/12/19 08/12/19 01:10 01:10 01:32 WBC 8.0 RBC 2.95 L Hgb 8.2 L Hct 27.4 L MCV 92.9 MCH 27.8 MCHC 29.9 L RDW Std Deviation 58.1 H RDW Coeff of Roberto 17.1 H Plt Count 206 MPV 10.4 Immature Gran % (Auto) 1.100 H Neut % (Auto) 80.5 H Lymph % (Auto) 5.5 L [place] % (Auto) 10.1 H Eos % (Auto) 2.3 Baso % (Auto) 0.5 Absolute Neuts (auto) 6.4 Absolute Lymphs (auto) 0.44 L Nucleated RBC % 0 Differential Comment SCANNED Hypochromasia 2+ Specimen Type ART Sample Site L Radial pH 7.36 Bicarbonate Actual 27.8 H POC Total CO2 29 Base Excess 2 O2 Saturation 97 O2 % 50 ABG pCO2 48.8 H ABG pO2 100 Brennan Test POS Respiration Rate 12 O2 Delivery Device Bi / C PAP EPAP 5 IPAP 10 Blood Gas Notified Whom ED Blood Gas Notified Time 128 Sodium 131 L Potassium 4.5 Chloride 97 L Carbon Dioxide 26.0 Anion Gap 8 BUN 53 H Creatinine 5.69 H Estim Creat Clear Calc 14.52 Est GFR (MDRD) Af Amer 14 L Est GFR (MDRD) Non-Af 11 L BUN/Creatinine Ratio 9.3 L Glucose 489 H* Calcium 7.8 L Total Bilirubin 0.90 AST 18 ALT 27 Alkaline Phosphatase 229 H Troponin I < 0.015 Total Protein 7.3 Albumin 2.9 L Globulin 4.4 H Albumin/Globulin Ratio 0.7 L 08/12/19 08/12/19 04:48 06:50 WBC RBC Hgb Hct MCV MCH MCHC RDW Std Deviation RDW Coeff of Roberto Plt Count MPV Immature Gran % (Auto) Neut % (Auto) Lymph % (Auto) [place] % (Auto) Eos % (Auto) Baso % (Auto) Absolute Neuts (auto) Absolute Lymphs (auto) Nucleated RBC % Differential Comment Hypochromasia Specimen Type Sample Site pH Bicarbonate Actual POC Total CO2 Base Excess O2 Saturation O2 % ABG pCO2 ABG pO2 Brenn[place] Test Respiration Rate O2 Delivery Device EPAP IPAP Blood Gas Notified Whom Blood Gas Notified Time Sodium Potassium Chloride Carbon Dioxide Anion Gap BUN Creatinine Estim Creat Clear Calc Est GFR (MDRD) Af Amer Est GFR (MDRD) Non-Af BUN/Creatinine Ratio Glucose Calcium Total Bilirubin AST ALT Alkaline Phosphatase Troponin I < 0.015 < 0.015 Total Protein Albumin Globulin Albumin/Globulin Ratio Assessment/Plan All Active Problems (Last Reviewed 08/12/19 @ 05:22 by Eze Rivera MD) CHF (congestive heart failure) (Acute) Patient Problems: Active and Suspected Problems (Last Reviewed 08/12/19 @ 05:22 by Eze Rivera MD) CHF (congestive heart failure) (Acute) Assessment/Plan: 48M with [the above problems list] Prognosis: [<6 months] [30] minutes were spent in direct patient evaluation, assessment, education, and counseling. Met with patient and his . They are under the assumption that his hospitalizations and increased need for dialysis is based on his noncompliance with fluid intake. He stated he's been told his heart is fine. I talked candidly about his renal failure, heart failure and pulmonary compromise. At one point he told me he didn't want to talk about because his was afraid to lose him. I let him express his feelings and he was willing to hear more about his mulitorgan failure. After talking with his [facility] medical team, I am convinced he has been told how dire his condition is. His mentioned that her goal for him was to be comfortable. I talked about the hospice inpatient unit and how he would be kept comfortable there. she was tearful. They are both willing to have me visit again tomorrow. I will revisit his acceptance of his condition and prognosis.
--- NOTE | 2019-08-12 14:43 | PCM.CONS.R ---
Consultation - Renal 08/12/19 PCP/ Referring MD: Requesting physician: [] Primary care physician: Augie Washburn MD Reason for Consultation:: ESRD HD TTS - History of Present Illness History of Present Illness: The patient is a 48 year old M with ESRD on HD TTS admitted for hypoxemia. LAst diaysis Monday after discharged from hospital. Weighed 115kg post treatment with target wt at 112kg. He was scheduled for UF today as outpt but reamitted for hypoxemia O2sat 70% despite home O2. He has gained 5kg since last dialysis session Monday. He is noncompliant with fluid restriction chronically. Chest x-ray at emergency department showed a stable steady of bilateral diffuse perihilar interstitial/groundglass opacities with cardiomegaly suggestive of pulmonary edema. Currently oxygenation stable. Will arrange UF only today. - Allergies Allergies: Allergies venom-honey bee [bee venom (honey bee)] Allergy (Verified 08/12/19 00:31) Swelling sulfamethoxazole [From Bactrim] Adverse Reaction (Verified 08/12/19 00:31) Upset Stomach trimethoprim [From Bactrim] Adverse Reaction (Verified 08/12/19 00:31) Upset Stomach - Current Medications Current Medications: Current Medications Acetaminophen (Tylenol) 650 mg PO Q6H PRN PRN PRN Reason: Pain Score 1-10/Temp > 100.7 F Amlodipine Besylate (Norvasc) 10 mg PO DAILY [facility] Last Admin: 08/12/19 09:50 Dose: 10 mg Documented by: [facility] Last Admin: 08/12/19 09:50 Dose: 81 mg Documented by: Atorvastatin Calcium (Lipitor) 20 mg PO QHS [facility] Collagenase (Santyl) 1 applic TOPICAL DAILY [facility]; Protocol Last Admin: 08/12/19 09:41 Dose: 1 applic Documented by: Cyclobenzaprine HCl (Flexeril) 10 mg PO TID PRN PRN PRN Reason: SPASMS Enoxaparin Sodium (Lovenox) 30 mg SC DAILY [facility] Last Admin: 08/12/19 09:36 Dose: 30 mg Documented by: Fluticasone Propionate (Flonase Nasal Treece) 1 spray NASAL DAILY [facility] Last Admin: 08/12/19 09:42 Dose: 1 spray Documented by: Furosemide (Lasix) 80 mg IV BIDLX [facility] Last Admin: 02/10/20 09:37 Dose: 80 mg Documented by: Glucagon () 1 mg IM .X1 PRN PRN Reason: Hypoglycemia Hydralazine HCl (Apresoline Iv) 5 mg IV Q4H PRN PRN PRN Reason: SBP > 160 Last Admin: 08/12/19 05:36 Dose: 5 mg Documented by: Sodium Chloride () 250 mls @ 15 mls/hr IV .[id number] PRN PRN Reason: Saline Flush Sodium Chloride () 250 mls @ 15 mls/hr IV .[id number] PRN PRN Reason: Additional IVPB Infusion Dextrose (Dextrose 10%-Water) 250 mls @ 999 mls/hr IV .Q16M PRN; Protocol PRN Reason: HYPOGLYCEMIA Insulin Glargine (Lantus ([facility])) 20 units SC QHS [facility] Last Admin: 08/12/19 04:59 Dose: 20 u Documented by: Insulin Human Lispro (Humalog Kwikpen ([facility])) 0 unit SC ACHS & 3AM [facility]; Protocol Last Admin: 08/12/19 12:03 Dose: 4 unit Documented by: Insulin Human Lispro (Humalog Kwikpen ([facility])) 18 unit SC 0800,1200,1700 [facility] Last Admin: 08/12/19 12:03 Dose: 18 unit Documented by: Isosorbide Mononitrate (Imdur) 30 mg PO DAILY [facility] Last Admin: 08/12/19 09:50 Dose: 30 mg Documented by: Metoprolol Tartrate (Lopressor (Beta Emmanuel)) 50 mg PO BID [facility] Last Admin: 08/12/19 09:50 Dose: 50 mg Documented by: Multivit/Ca Carb/B Cmplx/FA/Prenat (Nephrocaps, Renaphro) 1 capsule PO DAILY [facility] Last Admin: 08/12/19 09:49 Dose: 1 capsule Documented by: Multivitamins/Minerals (Healthy Eyes ([facility])) 1 capsule PO DAILY [facility] Last Admin: 08/12/19 09:50 Dose: 1 capsule Documented by: Pantoprazole Sodium (Protonix) 40 mg PO DAILY [facility] Last Admin: 08/12/19 09:50 Dose: 40 mg Documented by: Sertraline HCl (Zoloft) 25 mg PO DAILY [facility] Last Admin: 08/12/19 09:51 Dose: 25 mg Documented by: Sevelamer Carbonate (Renvela) 2,400 mg PO TIDCM [facility] Last Admin: 08/12/19 12:03 Dose: 2,400 mg Documented by: Sodium Chloride () 10 - 40 ml IV UD PRN PRN Reason: SALINE FLUSH Last Admin: 08/12/19 09:37 Dose: 10 ml Documented by: - Past Medical History Past Medical History (Chronic Problems): Chronic Problems (Last Reviewed 08/12/19 @ 05:22 by Eze Rivera MD) Noncompliance (Chronic) Pulmonary hypertension (Chronic) Morbid obesity with BMI of 40.0-44.9, adult (Chronic) End stage renal disease on dialysis (Chronic) Peripheral vascular disease (Chronic) Toe fracture, right (Chronic) Ulcer of right foot with fat layer exposed (Chronic) Chronic ulcer of left foot with fat layer exposed (Chronic) Type 2 diabetes mellitus with diabetic polyneuropathy (Chronic) Chronic ulcer of left foot with fat layer exposed (Chronic) Chronic respiratory failure with hypoxia (Chronic) HTN (hypertension) (Chronic) Hyperlipidemia (Chronic) Diabetic neuropathy (Chronic) Anemia (Chronic) SELMA (obstructive sleep apnea) (Chronic) - Past Surgical History Surgical History: tonsillectomy, - - Colectomy, right upper extremity aVF, right lower extremity angioplasty, right fifth ray resection. - Social History Smoking Status: Never smoker - Family History Maternal Family History: Family History (Last Reviewed 08/12/19 @ 05:22 by Eze Rivera MD) Mother Hypertension Heart disease Diabetes Father Hypertension Heart disease Brother Heart disease History Items: Diabetes, Heart Disease, Hypertension, Renal Disease Paternal Family History: Family History (Last Reviewed 08/12/19 @ 05:22 by Eze Rivera MD) Mother Hypertension Heart disease Diabetes Father Hypertension Heart disease Brother Heart disease History Items: Cancer - liver, Diabetes, Heart Disease Review of Systems Constitutional: Denies: Anorexia, Chills, Fever Cardiovascular: Denies: Chest Pain Respiratory: Denies: Cough Gastrointestinal: Denies: Nausea, Vomiting Hematologic/ Lymphatic: Reports: Anemia Patient Problems: Active and Suspected Problems (Last Reviewed 08/12/19 @ 05:22 by Eze Rivera MD) CHF (congestive heart failure) (Acute) - Physical Exam Vitals/I&O's: Vital Signs Temp Pulse Resp BP Pulse Ox 99.6 F H 71 18 151/57 H 96 08/12/19 09:30 08/12/19 09:50 08/12/19 09:30 08/12/19 09:50 08/12/19 09:30 Oxygen Flow Rate (L/min) 15 Oxygen Delivery Method Nasal Cannula Weight: 120.5 kg Body Mass Index (BMI) 41.5 Finger Stick Blood Glucose 410 Intake and Output for Last 24 Hours 08/10/19 08/11/19 08/12/19 23:59 23:59 23:59 Intake Total 240 / 240 Output Total 0 / 0 Balance 240 / 240 General: Alert, Cooperative, No apparent distress Lungs: Clear to auscultation Cardiovascular: Regular rate Abdomen: Bowel Sounds Present, Soft, Distended, Obese Extremities: Edema - mild BLE Psych/Mental Status: Normal Affect, Appropriate, Alert and oriented to time, place, person, mood and affect Laboratory Results 08/12/19 01:10: WBC 8.0, RBC 2.95 L, Hgb 8.2 L, Hct 27.4 L, MCV 92.9, MCH 27.8, MCHC 29.9 L, RDW Std Deviation 58.1 H, RDW Coeff of Roberto 17.1 H, Plt Count 206, MPV 10.4, Immature Gran % (Auto) 1.100 H, Neut % (Auto) 80.5 H, Lymph % (Auto) 5.5 L, Grayson % (Auto) 10.1 H, Eos % (Auto) 2.3, Baso % (Auto) 0.5, Absolute Neuts (auto) 6.4, Absolute Lymphs (auto) 0.44 L, Nucleated RBC % 0, Differential Comment SCANNED, Hypochromasia 2+ 08/12/19 01:10: Sodium 131 L, Potassium 4.5, Chloride 97 L, Carbon Dioxide 26.0, Anion Gap 8, BUN 53 H, Creatinine 5.69 H, Estim Creat Clear Calc 14.52, Est GFR (MDRD) Af Amer 14 L, Est GFR (MDRD) Non-Af 11 L, BUN/Creatinine Ratio 9.3 L, Glucose 489 H*, Calcium 7.8 L, Total Bilirubin 0.90, AST 18, ALT 27, Alkaline Phosphatase 229 H, Troponin I < 0.015, Total Protein 7.3, Albumin 2.9 L, Globulin 4.4 H, Albumin/Globulin Ratio 0.7 L 08/12/19 01:32: Specimen Type ART, Sample Site L Radial, pH 7.36, Bicarbonate Actual 27.8 H, POC Total CO2 29, Base Excess 2, O2 Saturation 97, O2 % 50, ABG pCO2 48.8 H, ABG pO2 100, Brennan Test POS, Respiration Rate 12, O2 Delivery Device Bi / C PAP, EPAP 5, IPAP 10, Blood Gas Notified Whom ED MD, Blood Gas Notified Time 128 08/12/19 04:38: POC Glucose 315 H 08/12/19 04:48: Troponin I < 0.015 08/12/19 06:50: Troponin I < 0.015 08/12/19 07:18: POC Glucose 235 H 08/12/19 09:28: POC Glucose 191 H 08/12/19 12:01: POC Glucose 223 H Clinical Impression(s) from Imaging Studies Chest X-Ray 08/12/19 00:55 IMPRESSION: Bilateral diffuse perihilar interstitial/groundglass opacities with cardiomegaly suggestive of pulmonary edema. Differential diagnosis includes pneumonia. Stable study. Electronically Signed: Graciela Alexander MD at 2:46 EST , Service support , Brain CT 08/12/19 03:20 IMPRESSION: Normal unenhanced CT scan of the brain, stable study in the interval. Electronically Signed: Graciela Alexander MD at 3:45 EST , Service support , Current Medications Acetaminophen (Tylenol) 650 mg PO Q6H PRN PRN PRN Reason: Pain Score 1-10/Temp > 100.7 F Amlodipine Besylate (Norvasc) 10 mg PO DAILY [facility] Last Admin: 08/12/19 09:50 Dose: 10 mg Documented by: [facility]) [facility] Last Admin: 08/12/19 09:50 Dose: 81 mg Documented by: Atorvastatin Calcium (Lipitor) 20 mg PO QHS [facility] Collagenase (Santyl) 1 applic TOPICAL DAILY [facility]; Protocol Last Admin: 08/12/19 09:41 Dose: 1 applic Documented by: Cyclobenzaprine HCl (Flexeril) 10 mg PO TID PRN PRN PRN Reason: SPASMS Enoxaparin Sodium (Lovenox) 30 mg SC DAILY [facility] Last Admin: 08/12/19 09:36 Dose: 30 mg Documented by: Fluticasone Propionate (Flonase Nasal Treece) 1 spray NASAL DAILY [facility] Last Admin: 08/12/19 09:42 Dose: 1 spray Documented by: Furosemide (Lasix) 80 mg IV BIDLX [facility] Last Admin: 08/12/19 09:37 Dose: 80 mg Documented by: Glucagon () 1 mg IM .X1 PRN PRN Reason: Hypoglycemia Hydralazine HCl (Apresoline Iv) 5 mg IV Q4H PRN PRN PRN Reason: SBP > 160 Last Admin: 08/12/19 05:36 Dose: 5 mg Documented by: Sodium Chloride () 250 mls @ 15 mls/hr IV .[id number] PRN PRN Reason: Saline Flush Sodium Chloride () 250 mls @ 15 mls/hr IV .[id number] PRN PRN Reason: Additional IVPB Infusion Dextrose (Dextrose 10%-Water) 250 mls @ 999 mls/hr IV .Q16M PRN; Protocol PRN Reason: HYPOGLYCEMIA Insulin Glargine (Lantus ([facility])) 20 units SC QHS [facility] Last Admin: 08/12/19 04:59 Dose: 20 u Documented by: Insulin Human Lispro (Humalog Kwikpen ([facility])) 0 unit SC ACHS & 3AM [facility]; Protocol Last Admin: 08/12/19 12:03 Dose: 4 unit Documented by: Insulin Human Lispro (Humalog Kwikpen ([facility])) 18 unit SC 0800,1200,1700 [facility] Last Admin: 08/12/19 12:03 Dose: 18 unit Documented by: Isosorbide Mononitrate (Imdur) 30 mg PO DAILY [facility] Last Admin: 08/12/19 09:50 Dose: 30 mg Documented by: Metoprolol Tartrate (Lopressor (Beta Emmanuel)) 50 mg PO BID [facility] Last Admin: 08/12/19 09:50 Dose: 50 mg Documented by: Multivit/Ca Carb/B Cmplx/FA/Prenat (Nephrocaps, Renaphro) 1 capsule PO DAILY [facility] Last Admin: 08/12/19 09:49 Dose: 1 capsule Documented by: Multivitamins/Minerals (Healthy Eyes ([facility])) 1 capsule PO DAILY [facility] Last Admin: 08/12/19 09:50 Dose: 1 capsule Documented by: Pantoprazole Sodium (Protonix) 40 mg PO DAILY [facility] Last Admin: 08/12/19 09:50 Dose: 40 mg Documented by: Sertraline HCl (Zoloft) 25 mg PO DAILY [facility] Last Admin: 08/12/19 09:51 Dose: 25 mg Documented by: Sevelamer Carbonate (Renvela) 2,400 mg PO TIDCM [facility] Last Admin: 08/12/19 12:03 Dose: 2,400 mg Documented by: Sodium Chloride () 10 - 40 ml IV UD PRN PRN Reason: SALINE FLUSH Last Admin: 08/12/19 09:37 Dose: 10 ml Documented by: Assessment/Plan All Active Problems (Last Reviewed 08/12/19 @ 05:22 by Eze Rivera MD) CHF (congestive heart failure) (Acute) 1 ESRD HD Tues, Th, Sat. HD Tues 2. Hypoxemia with fluid overload due to noncompliance. UF only today. Pt 8kg over target wt 3. ANemia hgb stable 4. HTN stable 5. DM2 primary mgmt 6. Hyponatremia due to fluid overloa
[2019-08-12] MEDS: Epoetin Alfa epbx 10,000 UNITS/ML 10000 UNIT SC (17:15)
[2019-08-12 17:25] LABS: Bedside Glucose 174 mg/dL (70-110)
--- NOTE | 2019-08-12 23:38 | DIALYSIS ---
IUF x 2 hrs completed. Access via [facility]. net fluid removal 3000ml. Pt bartolome well. See HD flowsheet on chart. report to Lisa
[2019-08-13] VITALS (19 sets, daily range): BP systolic 131–169; BP diastolic 56–87; PULSE 63–80; RESP 12–20; TEMP 36.2–36.9; O2SAT 95–100
[2019-08-13] MEDS: Insulin Lispro 100 UNIT/ML INSULN.PEN SC ×3 (00:51→21:15)
[2019-08-13] MEDS: Metoprolol Tartrate 50 MG Tablet PO ×3 (00:52→21:14)
[2019-08-13] MEDS: Atorvastatin Calcium 20 MG Tablet PO ×2 (00:52→21:14)
[2019-08-13 01:05] LABS: Bedside Glucose 196 mg/dL (70-110)
--- NOTE | 2019-08-13 01:24 | NURSING ---
All HS medications 08/12/2019 late due to patient receiving dialysis treatment.
[2019-08-13 03:15] LABS: Bedside Glucose 148 mg/dL (70-110)
[2019-08-13 06:27] LABS: Absolute Lymphocyte Count 0.77 X10^3/uL (0.83-4.51); Absolute Neutrophil Count 5.2 X10^3/uL (2.0-7.7); Basophil# 0.05 X10^3/uL; Basophil% 0.7 % (0-1); Eosinophil# 0.42 X10^3/uL; Eosinophils% 5.9 % (0-5); Lymphocyte # 0.77 X10^3/ul (4.0); Lymphocyte % 10.8 % (19-41); Mean Corp Hgb Conc 30.8 g/dL (32-36); Mean Corpuscular Hgb 28.2 pg (27.0-32.0); Mean Corpuscular Volume 91.5 fL (80-94); Mean Platelet Vol. 9.6 fl (6.2-12.0); Monocyte# 0.64 X10^3/uL; NRBC Flagged by Analyzer 0 % (0-5); Neutrophil # 5.18 X10^3/uL (2.7-7.7); Neutrophil % 72.8 % (47-70); Platelet Count 225 K/mm3 (150-450); RBC Distribution Width CV 17.4 % (11.6-14.6); RBC Distribution Width SD 57.1 fl (35.1-43.9); Red Blood Count 2.84 M/mm3 (4.6-6.2); White Blood Count 7.1 K/mm3 (4.4-11.0)
[2019-08-13 06:50] LABS: Anion Gap 9 (5-15); BUN 72 mg/dL (7-18); BUN/Creat Ratio 10.1 RATIO (10-20); Calcium,Total 8.7 mg/dL (8.5-10.1); Chloride 98 mmol/L (98-107); EST Glomerular Filtration Rate 9 mL/min (>60); Est Glom Filt Rate - Afr Amer 11 mL/min (>60); Estimated Creatinine Clearance 11.64 ml/min; Glucose 143 mg/dL (74-106); Potassium 4.8 mmol/L (3.5-5.1); Sodium Level 135 mmol/L (136-145)
[2019-08-13 09:31] LABS: Bedside Glucose 142 mg/dL (70-110)
--- NOTE | 2019-08-13 11:28 | PN_ITS ---
<Zachariah Meza - Last Filed: 08/13/19 11:28> Patient Problems: Active and Suspected Problems (Last Reviewed 08/12/19 @ 05:22 by Eze Rivera MD) CHF (congestive heart failure) (Acute) Reason for Visit: sob Subjective: Pt resting comfortably in bed right lateral recumbant in NAD, on bipap. Wakes up readily. He has no complaints this AM. He states that he feels about the same as yesterday with no change in his breathing. No fever/chills. No cough. He was preparing to start dialysis at the time of interview. He has mild improvement in his LE edema. at bedside. Vitals/I&O's: Vital Signs Temp Pulse Resp BP Pulse Ox 98.5 F 64 18 137/73 H 97 08/13/19 09:00 08/13/19 09:00 08/13/19 09:00 08/13/19 09:00 08/13/19 09:00 Oxygen Flow Rate (L/min) 10 Oxygen Delivery Method Bi-pap Weight: 252 lb 6.868 oz Body Mass Index (BMI) 41.5 Finger Stick Blood Glucose 410 Intake and Output for Last 24 Hours 08/11/19 08/12/19 08/13/19 23:59 23:59 23:59 Intake Total 600 / 600 Output Total 3100 / 3100 100 / 100 Balance -2500 / -2500 -100 / -100 General: Alert, Oriented x3, Cooperative HEENT: Atraumatic, PERRLA, EOMI, Normocephalic Neck: Supple, No JVD, Negative Carotid Bruits Lungs: Clear to auscultation, Diminished Cardiovascular: Regular rate, No murmurs Abdomen: Bowel Sounds Present, Soft, Non Tender, Obese Extremities: Capillary Refill Less than 3 Seconds, Edema - 1-2 + pitting edema BLE Skin: No rashes, No breakdown Musculoskeletal: No Tenderness to Palpation of Joints or Extremities Neurological: Cranial nerves II-XII grossly intact Psych/Mental Status: Normal Affect, Appropriate, Alert and oriented to time, place, person, mood and affect Laboratory Results 08/12/19 12:01: POC Glucose 223 H 08/12/19 17:02: POC Glucose 174 H 08/13/19 00:39: POC Glucose 196 H 08/13/19 03:04: POC Glucose 148 H 08/13/19 06:16: WBC 7.1, RBC 2.84 L, Hgb 8.0 L, Hct 26.0 L, MCV 91.5, MCH 28.2, MCHC 30.8 L, RDW Std Deviation 57.1 H, RDW Coeff of Roberto 17.4 H, Plt Count 225, MPV 9.6, Immature Gran % (Auto) 0.800, Neut % (Auto) 72.8 H, Lymph % (Auto) 10.8 L, [place] % (Auto) 9.0, Eos % (Auto) 5.9 H, Baso % (Auto) 0.7, Absolute Neuts (auto) 5.2, Absolute Lymphs (auto) 0.77 L, Nucleated RBC % 0 08/13/19 06:16: Sodium 135 L, Potassium 4.8, Chloride 98, Carbon Dioxide 28.0, Anion Gap 9, BUN 72 H, Creatinine 7.10 H, Estim Creat Clear Calc 11.64, Est GFR (MDRD) Af Amer 11 L, Est GFR (MDRD) Non-Af 9 L, BUN/Creatinine Ratio 10.1, Glucose 143 H, Calcium 8.7 08/13/19 08:56: POC Glucose 142 H Current Medications Acetaminophen (Tylenol) 650 mg PO Q6H PRN PRN PRN Reason: Pain Score 1-10/Temp > 100.7 F Amlodipine Besylate (Norvasc) 10 mg PO DAILY [facility] Last Admin: 08/12/19 09:50 Dose: 10 mg Documented by: Aspirin ([facility]) [facility] Last Admin: 08/12/19 09:50 Dose: 81 mg Documented by: Atorvastatin Calcium (Lipitor) 20 mg PO QHS [facility] Last Admin: 08/13/19 00:52 Dose: 20 mg Documented by: Collagenase (Santyl) 1 applic TOPICAL DAILY [facility]; Protocol Last Admin: 08/12/19 09:41 Dose: 1 applic Documented by: Cyclobenzaprine HCl (Flexeril) 10 mg PO TID PRN PRN PRN Reason: SPASMS Enoxaparin Sodium (Lovenox) 30 mg SC DAILY [facility] Last Admin: 08/12/19 09:36 Dose: 30 mg Documented by: Fluticasone Propionate (Flonase Nasal [place]) 1 spray NASAL DAILY [facility] Last Admin: 08/12/19 09:42 Dose: 1 spray Documented by: Furosemide (Lasix) 80 mg IV BIDLX [facility] Last Admin: 08/12/19 17:05 Dose: 80 mg Documented by: Gabapentin (Neurontin) 300 mg PO BID RENE Glucagon () 1 mg IM .X1 PRN PRN Reason: Hypoglycemia Hydralazine HCl (Apresoline Iv) 5 mg IV Q4H PRN PRN PRN Reason: SBP > 160 Last Admin: 08/12/19 05:36 Dose: 5 mg Documented by: Sodium Chloride () 250 mls @ 15 mls/hr IV .[id number] PRN PRN Reason: Saline Flush Sodium Chloride () 250 mls @ 15 mls/hr IV .[id number] PRN PRN Reason: Additional IVPB Infusion Dextrose (Dextrose 10%-Water) 250 mls @ 999 mls/hr IV .Q16M PRN; Protocol PRN Reason: HYPOGLYCEMIA Insulin Glargine (Lantus ([facility])) 20 units SC QHS [facility] Last Admin: 08/13/19 00:52 Dose: 20 u Documented by: Insulin Human Lispro (Humalog Kwikpen ([facility])) 0 unit SC ACHS & 3AM RENE; Protocol Last Admin: 08/13/19 09:10 Dose: Not Given Documented by: Insulin Human Lispro (Humalog Kwikpen ([facility])) 18 unit SC 0800,1200,1700 [facility] Last Admin: 08/12/19 17:03 Dose: 18 unit Documented by: Isosorbide Mononitrate (Imdur) 30 mg PO DAILY [facility] Last Admin: 08/12/19 09:50 Dose: 30 mg Documented by: Metoprolol Tartrate (Lopressor (Beta Emmanuel)) 50 mg PO BID [facility] Last Admin: 08/13/19 00:52 Dose: 50 mg Documented by: Multivit/Ca Carb/B Cmplx/FA/Prenat (Nephrocaps, Renaphro) 1 capsule PO DAILY [facility] Last Admin: 08/12/19 09:49 Dose: 1 capsule Documented by: Multivitamins/Minerals (Healthy Eyes ([facility])) 1 capsule PO DAILY [facility] Last Admin: 08/12/19 09:50 Dose: 1 capsule Documented by: Nutritional Formula (Lactose Free) (Glucerana Loera) 120 ml PO TIDCM [facility] Pantoprazole Sodium (Protonix) 40 mg PO DAILY [facility] Last Admin: 08/12/19 09:50 Dose: 40 mg Documented by: Promethazine HCl (Phenergan Tablet) 25 mg PO TID PRN PRN Reason: VOMITING Sertraline HCl (Zoloft) 25 mg PO DAILY [facility] Last Admin: 08/12/19 09:51 Dose: 25 mg Documented by: Sevelamer Carbonate (Renvela) 2,400 mg PO TIDCM [facility] Last Admin: 08/12/19 17:05 Dose: 2,400 mg Documented by: Sodium Chloride () 10 - 40 ml IV UD PRN PRN Reason: SALINE FLUSH Last Admin: 08/12/19 09:37 Dose: 10 ml Documented by: Trazodone HCl (Desyrel) 50 mg PO QHS [facility] STROKE Vital Signs/Narrative: Vital Signs Temp Pulse Resp BP Pulse Ox 08/13/19 09:00 98.5 F 64 18 137/73 H 97 Medical Necessity - Tobacco Use Smoking Status: Never smoker Assessment/Plan All Active Problems (Last Reviewed 08/12/19 @ 05:22 by Eze Rivera MD) CHF (congestive heart failure) (Acute) 1. Acute on chronic diastolic CHF, complicated by pulmonary Htn. - maintain strict fluid restriction, sodium restriction, calorie restriction, renal diet. Dialysis today. Continue IV lasix. 2. ESRD - per Dr. Gregorio. 3. HTN - greatly improved this AM. 4. Uncontrolled DMt2 - improved with mealtime adjustments, monitor today before further changes. 5. Chronic anemia - stable. 6. Chronic hypoxic respiratory failure - he needs to continue using O2 at all times. He has expressed reluctance to use o2 all the time and is afraid of becoming addicted to it. 7. SELMA - continue bipap qhs/naps. DVT ppx: lovenox This patient was seen by Zachariah Meza PA-C under the supervision of Doctor Rodrick. <Isma Mensah - Last Filed: 08/13/19 12:12> Vitals/I&O's: Vital Signs Temp Pulse Resp BP Pulse Ox 36.9 C 64 18 137/73 H 97 08/13/19 09:00 08/13/19 09:00 08/13/19 09:00 08/13/19 09:00 08/13/19 09:00 Oxygen Flow Rate (L/min) 10 Oxygen Delivery Method Bi-pap Weight: 114.5 kg Body Mass Index (BMI) 41.5 Finger Stick Blood Glucose 410 Intake and Output for Last 24 Hours 08/11/19 08/12/19 08/13/19 23:59 23:59 23:59 Intake Total 600 / 600 Output Total 3100 / 3100 100 / 100 Balance -2500 / -2500 -100 / -100 General: Alert, Cooperative HEENT: Atraumatic, Normocephalic Lungs: Clear to auscultation, Diminished Cardiovascular: Regular rate, No murmurs Abdomen: Bowel Sounds Present, Soft, Non Tender, Obese Extremities: Capillary Refill Less than 3 Seconds, Edema Skin: No rashes, No breakdown Psych/Mental Status: Normal Affect, Appropriate Laboratory Results 08/12/19 12:01: POC Glucose 223 H 08/12/19 17:02: POC Glucose 174 H 08/13/19 00:39: POC Glucose 196 H 08/13/19 03:04: POC Glucose 148 H 08/13/19 06:16: WBC 7.1, RBC 2.84 L, Hgb 8.0 L, Hct 26.0 L, MCV 91.5, MCH 28.2, MCHC 30.8 L, RDW Std Deviation 57.1 H, RDW Coeff of Roberto 17.4 H, Plt Count 225, MPV 9.6, Immature Gran % (Auto) 0.800, Neut % (Auto) 72.8 H, Lymph % (Auto) 10.8 L, [place] % (Auto) 9.0, Eos % (Auto) 5.9 H, Baso % (Auto) 0.7, Absolute Neuts (auto) 5.2, Absolute Lymphs (auto) 0.77 L, Nucleated RBC % 0 08/13/19 06:16: Sodium 135 L, Potassium 4.8, Chloride 98, Carbon Dioxide 28.0, Anion Gap 9, BUN 72 H, Creatinine 7.10 H, Estim Creat Clear Calc 11.64, Est GFR (MDRD) Af Amer 11 L, Est GFR (MDRD) Non-Af 9 L, BUN/Creatinine Ratio 10.1, Glucose 143 H, Calcium 8.7 08/13/19 08:56: POC Glucose 142 H Current Medications Acetaminophen (Tylenol) 650 mg PO Q6H PRN PRN PRN Reason: Pain Score 1-10/Temp > 100.7 F Amlodipine Besylate (Norvasc) 10 mg PO DAILY [facility] Last Admin: 08/12/19 09:50 Dose: 10 mg Documented by: Aspirin ([facility]cotrin) [facility] Last Admin: 08/12/19 09:50 Dose: 81 mg Documented by: Atorvastatin Calcium (Lipitor) 20 mg PO QHS [facility] Last Admin: 08/13/19 00:52 Dose: 20 mg Documented by: Collagenase (Santyl) 1 applic TOPICAL DAILY [facility]; Protocol Last Admin: 08/12/19 09:41 Dose: 1 applic Documented by: Cyclobenzaprine HCl (Flexeril) 10 mg PO TID PRN PRN PRN Reason: SPASMS Enoxaparin Sodium (Lovenox) 30 mg SC DAILY [facility] Last Admin: 08/12/19 09:36 Dose: 30 mg Documented by: Fluticasone Propionate (Flonase Nasal [place]) 1 spray NASAL DAILY [facility] Last Admin: 08/12/19 09:42 Dose: 1 spray Documented by: Furosemide (Lasix) 80 mg IV BIDLX [facility] Last Admin: 08/12/19 17:05 Dose: 80 mg Documented by: Gabapentin ([facility]urontin) [facility] Glucagon () 1 mg IM .X1 PRN PRN Reason: Hypoglycemia Hydralazine HCl (Apresoline Iv) 5 mg IV Q4H PRN PRN PRN Reason: SBP > 160 Last Admin: 08/12/19 05:36 Dose: 5 mg Documented by: Sodium Chloride () 250 mls @ 15 mls/hr IV .[id number] PRN PRN Reason: Saline Flush Sodium Chloride () 250 mls @ 15 mls/hr IV .[id number] PRN PRN Reason: Additional IVPB Infusion Dextrose (Dextrose 10%-Water) 250 mls @ 999 mls/hr IV .Q16M PRN; Protocol PRN Reason: HYPOGLYCEMIA Insulin Glargine ([facility]us ([facility])) [facility] Last Admin: 08/13/19 00:52 Dose: 20 u Documented by: Insulin Human Lispro (Humalog Kwikpen ([facility])) 0 unit SC ACHS & 3AM RENE; Protocol Last Admin: 08/13/19 09:10 Dose: Not Given Documented by: Insulin Human Lispro (Humalog Kwikpen ([facility])) 18 unit SC 0800,1200,1700 [facility] Last Admin: 08/12/19 17:03 Dose: 18 unit Documented by: Isosorbide Mononitrate (Imdur) 30 mg PO DAILY [facility] Last Admin: 08/12/19 09:50 Dose: 30 mg Documented by: Metoprolol Tartrate (Lopressor (Beta Emmanuel)) 50 mg PO BID [facility] Last Admin: 08/13/19 00:52 Dose: 50 mg Documented by: Multivit/Ca Carb/B Cmplx/FA/Prenat (Nephrocaps, Renaphro) 1 capsule PO DAILY [facility] Last Admin: 08/12/19 09:49 Dose: 1 capsule Documented by: Multivitamins/Minerals (Healthy Eyes ([facility])) 1 capsule PO DAILY [facility] Last Admin: 08/12/19 09:50 Dose: 1 capsule Documented by: Nutritional Formula (Lactose Free) (Glucerna Shake) 120 ml PO TIDCM [facility] Pantoprazole Sodium (Protonix) 40 mg PO DAILY [facility] Last Admin: 08/12/19 09:50 Dose: 40 mg Documented by: Promethazine HCl (Phenergan Tablet) 25 mg PO TID PRN PRN Reason: VOMITING Sertraline HCl (Zoloft) 25 mg PO DAILY [facility] Last Admin: 08/12/19 09:51 Dose: 25 mg Documented by: Sevelamer Carbonate (Renvela) 2,400 mg PO TIDCM [facility] Last Admin: 08/12/19 17:05 Dose: 2,400 mg Documented by: Sodium Chloride () 10 - 40 ml IV UD PRN PRN Reason: SALINE FLUSH Last Admin: 08/12/19 09:37 Dose: 10 ml Documented by: Trazodone HCl (Desyrel) 50 mg PO QHS [facility] STROKE Vital Signs/Narrative: Vital Signs Temp Pulse Resp BP Pulse Ox 08/13/19 09:00 36.9 C 64 18 137/73 H 97 Assessment/Plan Patient seen and examined independently. Data reviewed. I agree with the above note by the physician mechanic assistant. 1. Acute heart failure with preserved ejection fraction: * Patient had an EF of 60% from March 16, 2019. * This is now the patient's 6 admission this calendar year. * 08/12: Had very long conversation with the patient and his . Patient states that he has been compliant with his diet and salt intake. Told patient that will take him at his word but informed him that previously it is been documented that he has been noncompliant with such. Told him given his frequent nature of rehospitalization very short period of time plan is to watch him past. Of time where he would be stable for discharge and to ensure that following a strict diet blood pressure management continue with his dialysis and that if he stays stable while he is here in the hospital that we would have enough information that if he were to present again for CHF that the fall to would lie squarely in his lap. His is present during this encounter and they both expressed understanding. Feel that his overall care will involve managing his blood pressure, salt intake, fluid intake and dialysis and diuresis. Did tell the patient that is possible that the patient may have had flash pulmonary edema as his blood pressure was extremely high. But still I am concerned that this may be just due to dietary indiscretions on the patient's behalf. * wean oxygen as tolerated * plan is to continue to monitor in the hospital for another 24-48h with medical mgmt and dialysis, diet and fluid restriction. if maintains his oxygenation during this time and has no set backs, then he can be discharged home. If he comes back again for the same diagnosis, then it will be reasonable to suspect that the patient is non-compliant (which has clearly been the case before) * Pt requires reinforcement for compliance, which has occurred during previous admissions. Unclear if it will take hold this admission. . Code Visit Inpatient E&M: 09044 Subs Hosp L2
--- NOTE | 2019-08-13 11:51 | PN.RENAL_ITS ---
Patient Problems: Active and Suspected Problems (Last Reviewed 08/12/19 @ 05:22 by Eze Rivera MD) CHF (congestive heart failure) (Acute) Subjective: UF 3L last night. Breathing better. Currently on HD. Attempt fluid removal to target wt 112kg. According to bed weight pre dialysis, he gained 6kg overnight after UF. Blood sugars elevated yesterday at 489. - Physical Exam Vitals/I&O's: Vital Signs Temp Pulse Resp BP Pulse Ox 98.5 F 64 18 137/73 H 97 08/13/19 09:00 08/13/19 09:00 08/13/19 09:00 08/13/19 09:00 08/13/19 09:00 Oxygen Flow Rate (L/min) 10 Oxygen Delivery Method Bi-pap Weight: 114.5 kg Body Mass Index (BMI) 41.5 Finger Stick Blood Glucose 410 Intake and Output for Last 24 Hours 08/11/19 08/12/19 08/13/19 23:59 23:59 23:59 Intake Total 600 / 600 Output Total 3100 / 3100 100 / 100 Balance -2500 / -2500 -100 / -100 General: Alert, Oriented x3, Cooperative, No apparent distress Lungs: Clear to auscultation, Diminished Extremities: Edema Psych/Mental Status: Alert and oriented to time, place, person, mood and affect Laboratory Results 08/12/19 12:01: POC Glucose 223 H 08/12/19 17:02: POC Glucose 174 H 08/13/19 00:39: POC Glucose 196 H 08/13/19 03:04: POC Glucose 148 H 08/13/19 06:16: WBC 7.1, RBC 2.84 L, Hgb 8.0 L, Hct 26.0 L, MCV 91.5, MCH 28.2, MCHC 30.8 L, RDW Std Deviation 57.1 H, RDW Coeff of Roberto 17.4 H, Plt Count 225, MPV 9.6, Immature Gran % (Auto) 0.800, Neut % (Auto) 72.8 H, Lymph % (Auto) 10.8 L, [place] % (Auto) 9.0, Eos % (Auto) 5.9 H, Baso % (Auto) 0.7, Absolute Neuts (auto) 5.2, Absolute Lymphs (auto) 0.77 L, Nucleated RBC % 0 08/13/19 06:16: Sodium 135 L, Potassium 4.8, Chloride 98, Carbon Dioxide 28.0, Anion Gap 9, BUN 72 H, Creatinine 7.10 H, Estim Creat Clear Calc 11.64, Est GFR (MDRD) Af Amer 11 L, Est GFR (MDRD) Non-Af 9 L, BUN/Creatinine Ratio 10.1, Glucose 143 H, Calcium 8.7 08/13/19 08:56: POC Glucose 142 H Current Medications Acetaminophen (Tylenol) 650 mg PO Q6H PRN PRN PRN Reason: Pain Score 1-10/Temp > 100.7 F Amlodipine Besylate (Norvasc) 10 mg PO DAILY [facility] Last Admin: 08/12/19 09:50 Dose: 10 mg Documented by: Aspirin ([facility]cot[facility]) [facility] Last Admin: 08/12/19 09:50 Dose: 81 mg Documented by: Atorvastatin Calcium (Lipitor) 20 mg PO QHS [facility] Last Admin: 08/13/19 00:52 Dose: 20 mg Documented by: Collagenase (Santyl) 1 applic TOPICAL DAILY [facility]; Protocol Last Admin: 08/12/19 09:41 Dose: 1 applic Documented by: Cyclobenzaprine HCl (Flexeril) 10 mg PO TID PRN PRN PRN Reason: SPASMS Enoxaparin Sodium (Lovenox) 30 mg SC DAILY [facility] Last Admin: 08/12/19 09:36 Dose: 30 mg Documented by: Fluticasone Propionate (Flonase Nasal [place]) 1 spray NASAL DAILY [facility] Last Admin: 08/12/19 09:42 Dose: 1 spray Documented by: Furosemide (Lasix) 80 mg IV BIDLX [facility] Last Admin: 08/12/19 17:05 Dose: 80 mg Documented by: Gabapentin ([facility]urontin) [facility] Glucagon () 1 mg IM .X1 PRN PRN Reason: Hypoglycemia Hydralazine HCl (Apresoline Iv) 5 mg IV Q4H PRN PRN PRN Reason: SBP > 160 Last Admin: 08/12/19 05:36 Dose: 5 mg Documented by: Sodium Chloride () 250 mls @ 15 mls/hr IV .[id number] PRN PRN Reason: Saline Flush Sodium Chloride () 250 mls @ 15 mls/hr IV .[id number] PRN PRN Reason: Additional IVPB Infusion Dextrose (Dextrose 10%-Water) 250 mls @ 999 mls/hr IV .Q16M PRN; Protocol PRN Reason: HYPOGLYCEMIA Insulin Glargine (Lantus ([facility])) 20 units SC QHS [facility] Last Admin: 08/13/19 00:52 Dose: 20 u Documented by: Insulin Human Lispro (Humalog Kwikpen ([facility])) 0 unit SC ACHS & 3AM RENE; Protocol Last Admin: 08/13/19 09:10 Dose: Not Given Documented by: Insulin Human Lispro (Humalog Kwikpen ([facility])) 18 unit SC 0800,1200,1700 [facility] Last Admin: 08/12/19 17:03 Dose: 18 unit Documented by: Isosorbide Mononitrate (Imdur) 30 mg PO DAILY [facility] Last Admin: 08/12/19 09:50 Dose: 30 mg Documented by: Metoprolol Tartrate (Lopressor ([facility])) 50 mg PO BID [facility] Last Admin: 08/13/19 00:52 Dose: 50 mg Documented by: Multivit/Ca Carb/B Cmplx/FA/Prenat (Nephrocaps, Renaphro) 1 capsule PO DAILY [facility] Last Admin: 08/12/19 09:49 Dose: 1 capsule Documented by: Multivitamins/Minerals (Healthy Eyes ([facility])) 1 capsule PO DAILY [facility] Last Admin: 08/12/19 09:50 Dose: 1 capsule Documented by: Nutritional Formula (Lactose Free) (Glucerna Shake) 120 ml PO TIDCM [facility] Pantoprazole Sodium (Protonix) 40 mg PO DAILY [facility] Last Admin: 08/12/19 09:50 Dose: 40 mg Documented by: Promethazine HCl (Phenergan Tablet) 25 mg PO TID PRN PRN Reason: VOMITING Sertraline HCl (Zoloft) 25 mg PO DAILY [facility] Last Admin: 08/12/19 09:51 Dose: 25 mg Documented by: Sevelamer Carbonate (Renvela) 2,400 mg PO TIDCM [facility] Last Admin: 08/12/19 17:05 Dose: 2,400 mg Documented by: Sodium Chloride () 10 - 40 ml IV UD PRN PRN Reason: SALINE FLUSH Last Admin: 08/12/19 09:37 Dose: 10 ml Documented by: Trazodone HCl (Desyrel) 50 mg PO QHS [facility] Medical Necessity - Tobacco Use Smoking Status: Never smoker Assessment/Plan All Active Problems (Last Reviewed 08/12/19 @ 05:22 by Eze Rivera MD) CHF (congestive heart failure) (Acute) 1 ESRD HD Tues, Thurs, Sat. HD today to EDW 112kg. Pt with high fluid gain with bedscale this morning from 114kg post treatment last night. Will see if fluid gain high in am. 2. Hypoxemia with fluid overload due to noncompliance. UF last night 3L removed. 3. ANemia hgb stable 4. HTN stable 5. DM2 primary mgmt, poorly controlled due to dietary noncompliance 6. Hyponatremia due to fluid overload resolved
[2019-08-13 12:50] LABS: Bedside Glucose 152 mg/dL (70-110)
--- NOTE | 2019-08-13 15:12 | DIALYSIS ---
Hemodialysis x 4.25 hours completed at 1425. UF 5,000 mL fluid removed. Patient requested that I take 6,000 - 7,000 mL fluid off, 5,000 mL fluid removed per Dr[address] Gregorio. Patient tolerated treatment well, stable.
[2019-08-13] MEDS: Sertraline 50 MG Tablet 25 MG PO (15:15)
[2019-08-13] MEDS: Aspirin E.C. 81 MG Tablet PO (15:16)
[2019-08-13] MEDS: Multivitamin (Healthy Eyes) Capsule 1 CAP PO (15:16)
[2019-08-13] MEDS: Folic Acid/Vitamin B Comp W-C 1 Capsule 1 CAP PO (15:16)
[2019-08-13] MEDS: Pantoprazole Sodium 40 MG Tablet PO (15:16)
[2019-08-13] MEDS: amLODIPine 10 MG Tablet PO (15:17)
[2019-08-13] MEDS: Isosorbide Mononitrate 30 MG Tablet PO (15:17)
[2019-08-13] MEDS: SEVELAMER CARBONATE 800 MG TABLET 2400 MG PO (15:17)
[2019-08-13] MEDS: Furosemide 100 MG/10 ML Vial 80 MG IV (15:20)
[2019-08-13] MEDS: Fluticasone 0.05% 1 SPRAY NASAL.SRY NASAL (15:20)
[2019-08-13] MEDS: Collagenase 30gm Tube 1 APPLIC TOPICAL (15:21)
[2019-08-13] MEDS: Enoxaparin 30 MG/0.3 ML Syringe SC (15:23)
--- NOTE | 2019-08-13 15:49 | CASEMGMT ---
Heather FOLEY from [facility] did come to see pt again today but pt was still getting dialysis and did not talk much. Per [facility] SPECIALIST, [facility] staff to call internal medicine nurse practitioner hospice nurse if pt has a decrease in mentation and she states she will notify her staff of the same. Maria D PCU charge aware at this time and will pass onto eye care professional. Per pt's , some of pt's meds were held d/t pt being 'too sleepy' last night. LEAN SPECIALIST states she will be back tomorrow to speak with pt. Neville MACARIO CM
[2019-08-13] MEDS: Gabapentin 300 MG Capsule PO (16:55)
[2019-08-13] MEDS: Insulin Lispro 100 UNIT/ML INSULN.PEN 18 UNIT SC (16:55)
[2019-08-13 17:10] LABS: Bedside Glucose 186 mg/dL (70-110)
[2019-08-13] MEDS: Acetaminophen 325 MG Tablet 650 MG PO (18:53)
[2019-08-13] MEDS: traZODone 50 MG Tablet PO (21:14)
[2019-08-13 21:40] LABS: Bedside Glucose 220 mg/dL (70-110)
[2019-08-14] VITALS (10 sets, daily range): BP systolic 141–144; BP diastolic 57–64; PULSE 63–68; RESP 18–20; TEMP 36.4–36.7; O2SAT 88–100
[2019-08-14] MEDS: Acetaminophen 325 MG Tablet 650 MG PO ×2 (01:05→13:03)
[2019-08-14] MEDS: cycloBENZAPRine HCl 10 MG Tablet PO (01:05)
[2019-08-14] MEDS: Insulin Lispro 100 UNIT/ML INSULN.PEN SC ×3 (03:19→13:55)
[2019-08-14 03:31] LABS: Bedside Glucose 257 mg/dL (70-110)
[2019-08-14 06:53] LABS: Anion Gap 6 (5-15); BUN 44 mg/dL (7-18); BUN/Creat Ratio 8.5 RATIO (10-20); Calcium,Total 8.1 mg/dL (8.5-10.1); Chloride 97 mmol/L (98-107); Creatinine, Serum 5.18 mg/dL (0.70-1.30); EST Glomerular Filtration Rate 13 mL/min (>60); Est Glom Filt Rate - Afr Amer 15 mL/min (>60); Estimated Creatinine Clearance 15.95 ml/min; Glucose 318 mg/dL (74-106); Potassium 4.6 mmol/L (3.5-5.1); Sodium Level 132 mmol/L (136-145)
[2019-08-14] MEDS: Metoprolol Tartrate 50 MG Tablet PO (09:43)
[2019-08-14] MEDS: Folic Acid/Vitamin B Comp W-C 1 Capsule 1 CAP PO (09:43)
[2019-08-14] MEDS: amLODIPine 10 MG Tablet PO (09:43)
[2019-08-14] MEDS: Sertraline 50 MG Tablet 25 MG PO (09:43)
[2019-08-14] MEDS: Pantoprazole Sodium 40 MG Tablet PO (09:43)
[2019-08-14] MEDS: SEVELAMER CARBONATE 800 MG TABLET 2400 MG PO ×2 (09:44→12:59)
[2019-08-14] MEDS: Multivitamin (Healthy Eyes) Capsule 1 CAP PO (09:44)
[2019-08-14] MEDS: Isosorbide Mononitrate 30 MG Tablet PO (09:44)
[2019-08-14] MEDS: Aspirin E.C. 81 MG Tablet PO (09:44)
[2019-08-14] MEDS: Fluticasone 0.05% 1 SPRAY NASAL.SRY NASAL (09:47)
[2019-08-14] MEDS: Furosemide 100 MG/10 ML Vial 80 MG IV (09:48)
[2019-08-14] MEDS: 0.9% Saline Lock 10 ML Syringe IV (09:49)
[2019-08-14] MEDS: Enoxaparin 30 MG/0.3 ML Syringe SC (09:53)
[2019-08-14] MEDS: Insulin Lispro 100 UNIT/ML INSULN.PEN 18 UNIT SC ×2 (09:54→13:54)
[2019-08-14] MEDS: Collagenase 30gm Tube 1 APPLIC TOPICAL (09:56)
[2019-08-14] MEDS: Gabapentin 300 MG Capsule PO (10:02)
[2019-08-14] MEDS: Glucerna Shake 120 ML LIQUID PO ×2 (10:02→13:03)
--- NOTE | 2019-08-14 10:42 | CASEMGMT ---
Per Raza CABAN, most likely that pt to be discharged today. Call to Emely at [facility] and she is aware that pt to be discharged and requested referral be faxed to [phone] at this time. She states that they will do start of care tomorrow. Order placed for SN, PT/OT, SW, and aide at this time. She is updated on Inpt palliative c/s at this time, voices understanding. Emely states she will keep this RN CM up to date once pt home and states no further concerns/needs at this time. SStiris RN CM
--- NOTE | 2019-08-14 11:44 | DCINST_ITS ---
- Discharge Diagnoses Current Active Problems: Current Active and Chronic Problems (Last Reviewed 08/12/19 @ 05:22 by Eze Rivera MD) CHF (congestive heart failure) (Acute) You will use the following diet at home:: Calorie/Carbohydrate Controlled (specify 1200, 1400, etc) - 1800 calories per day, Cardiac - 2000 mg sodium daily, Fluid restricted (specify 2000 mls, 1500 mls) - 1500 cc / day, Renal (restricted protein/sodium) Your food should be the consistency of: Regular Your liquids should be the consistency of: Regular/Thin Discharge Activity: Return to Normal Activity Call your doctor if you observe: Shortness of breath, Swelling in the ankles, Chest pain Allergies/Adverse Reactions: Allergies venom-honey bee [bee venom (honey bee)] Allergy (Verified 08/12/19 00:31) Swelling sulfamethoxazole [From Bactrim] Adverse Reaction (Verified 08/12/19 00:31) Upset Stomach trimethoprim [From Bactrim] Adverse Reaction (Verified 08/12/19 00:31) Upset Stomach Medications to take at Discharge Atorvastatin Calcium [Lipitor] 20 mg PO QHS 10/11/17 Vits A,C,E/Lutein/Minerals [Ocuvite with Lutein Tablet] 1 ea PO DAILY 10/11/17 Folic Acid/Vitamin B Comp W-C [Nephrocaps, Renaphro] 1 cap PO DAILY 10/27/17 albuterol sulfate 90 mcg/actuation aerosol inhaler 2 puff INHALATION Q4H PRN #18 g 02/26/18 Aspirin E.C. [Ecotrin] 81 mg PO DAILY 03/23/18 Cyclobenzaprine HCl 10 mg PO TID PRN PRN 03/23/18 Fluticasone 0.05% [Flonase Nasal [place]] 1 spray NASAL DAILY 03/23/18 Gabapentin [Neurontin] 300 mg PO BID 03/23/18 isosorbide mononitrate 30 mg tablet,extended release 24 hr 30 mg PO DAILY #30 tab 07/24/18 Metoprolol Tartrate [Lopressor (beta khoa)] 50 mg PO BID 03/12/19 Omeprazole 40 mg PO DAILY 03/12/19 proMETHazine tablet [Phenergan tablet] 25 mg PO TID PRN 03/13/19 Sevelamer HCl [Renagel] 2,400 mg PO TID #0 03/20/19 traZODone [Desyrel] 50 mg PO QHS 07/06/19 Amlodipine [Norvasc] 10 mg PO DAILY #30 tab 07/12/19 Collagenase [Santyl] 1 applic TOPICAL DAILY tube 07/24/19 Sertraline HCl [Zoloft] 25 mg PO DAILY 08/05/19 Acetaminophen [Tylenol Tablet] 650 mg PO Q6H PRN PRN tab 08/08/19 Insulin Lispro [Humalog KwikPen] 15 unit SUBCUT 0800,1200,1700 insuln.pen 08/08/19 Furosemide [Lasix] 80 mg PO BIDLX #60 tab 08/10/19 Insulin Lispro [Humalog KwikPen] See Protocol SUBCUT ACHS 08/10/19 Primary Care Physician: Augie Washburn MD [Primary Care Provider] - Please follow up with your Primary Care Physician in: 1-2 weeks Test Results: Test results from this visit will be discussed in further detail at your follow- up appointment, if applicable. Please Follow Up With: Palliative care When: this week Please Follow Up With: Anca Gregorio DO When: as directed Please Follow Up With: Gavino Bowen DO When: as directed Proposed Discharge Date: 08/14/19
[2019-08-14 12:01] LABS: Bedside Glucose 292 mg/dL (70-110)
[2019-08-14 13:11] LABS: Bedside Glucose 210 mg/dL (70-110)
--- NOTE | 2019-08-14 14:21 | PHA.DC.MR ---
Pharmacy Service has performed discharge medication reconciliation for this patient. The patient's discharge medication list was reviewed for discrepancies and discrepancies were resolved. Home Medications Atorvastatin Calcium [Lipitor] 20 mg PO QHS 10/11/17 Vits A,C,E/Lutein/Minerals [Ocuvite with Lutein Tablet] 1 ea PO DAILY 10/11/17 Folic Acid/Vitamin B Comp W-C [Nephrocaps, Renaphro] 1 cap PO DAILY 10/27/17 albuterol sulfate 90 mcg/actuation aerosol inhaler 2 puff INHALATION Q4H PRN #18 g 02/26/18 Aspirin E.C. [Ecotrin] 81 mg PO DAILY 03/23/18 Cyclobenzaprine HCl 10 mg PO TID PRN PRN 03/23/18 Fluticasone 0.05% [Flonase Nasal [place]] 1 spray NASAL DAILY 03/23/18 Gabapentin [Neurontin] 300 mg PO BID 03/23/18 isosorbide mononitrate 30 mg tablet,extended release 24 hr 30 mg PO DAILY #30 tab 07/24/18 Metoprolol Tartrate [Lopressor (beta khoa)] 50 mg PO BID 03/12/19 Omeprazole 40 mg PO DAILY 03/12/19 proMETHazine tablet [Phenergan tablet] 25 mg PO TID PRN 03/13/19 Sevelamer HCl [Renagel] 2,400 mg PO TID #0 03/20/19 traZODone [Desyrel] 50 mg PO QHS 07/06/19 Amlodipine [Norvasc] 10 mg PO DAILY #30 tab 07/12/19 Collagenase [Santyl] 1 applic TOPICAL DAILY tube 07/24/19 Sertraline HCl [Zoloft] 25 mg PO DAILY 08/05/19 Acetaminophen [Tylenol Tablet] 650 mg PO Q6H PRN PRN tab 08/08/19 Insulin Lispro [Humalog KwikPen] 15 unit SUBCUT 0800,1200,1700 insuln.pen 08/08/19 Furosemide [Lasix] 80 mg PO BIDLX #60 tab 08/10/19 Insulin Lispro [Humalog KwikPen] See Protocol SUBCUT ACHS 08/10/19 Ipratropium/Albuterol Sulfate [Duoneb] 3 ml INHALATION Q6H #120 ampul.neb 08/14/19 Oxycodone [Oxyir] 5 mg PO Q6H PRN PRN 3 Days #12 tab 08/14/19
--- NOTE | 2019-08-14 14:29 | CASEMGMT ---
RESEARCH INTERN Rea from Palliative Care spoke with patient and his . She wanted to make sure he had the appropriate O2 equipment and a nebulizer at home. WILFREDO passed this information along to BENJI Soni and RN LIZETTE Booker. Rea will see patient tomorrow. Plan: Home with home health, Palliative Care, and equipment from [facility] [place]. Agatha SHEETS MSW
--- NOTE | 2019-08-14 14:40 | DS.PCM_ITS ---
<Zachariah Meza - Last Filed: 08/14/19 14:40> Discharge Date and Diagnosis - Problem List Patient Problems: Active and Suspected Problems (Last Reviewed 08/12/19 @ 05:22 by Eze Rivera MD) CHF (congestive heart failure) (Acute) Date of Admission: 08/12/19 Date of Discharge: 08/14/19 - Primary Discharge Diagnosis Active and Suspected Problems (Last Reviewed 08/12/19 @ 05:22 by Eze Rivera MD) Acute on chronic diastolic CHF, 2/2 noncompliance with home diet, oxygen, bipap ESRD Pulmonary HTN DMt2 with morbid obesity SELMA Chronic hypoxic respiratory failure - Secondary Discharge Diagnosis Chronic Problems (Last Reviewed 08/12/19 @ 05:22 by Eze Rivera MD) Noncompliance (Chronic) Pulmonary hypertension (Chronic) Morbid obesity with BMI of 40.0-44.9, adult (Chronic) End stage renal disease on dialysis (Chronic) Peripheral vascular disease (Chronic) Toe fracture, right (Chronic) Ulcer of right foot with fat layer exposed (Chronic) Chronic ulcer of left foot with fat layer exposed (Chronic) Type 2 diabetes mellitus with diabetic polyneuropathy (Chronic) Chronic ulcer of left foot with fat layer exposed (Chronic) Chronic respiratory failure with hypoxia (Chronic) HTN (hypertension) (Chronic) Hyperlipidemia (Chronic) Diabetic neuropathy (Chronic) Anemia (Chronic) SELMA (obstructive sleep apnea) (Chronic) Hospital Course and Treatment Imaging Results: RAD/Chest PA and Lateral IMPRESSION: Bilateral diffuse perihilar interstitial/groundglass opacities with cardiomegaly suggestive of pulmonary edema. Differential diagnosis includes pneumonia. Stable study. CT/Brain/Head without Contrast IMPRESSION: Normal unenhanced CT scan of the brain, stable study in the interval. Consultations 08/12/19 07:21 Consult: Onc/Wound/flatwork feeder Routine Comment: Operations: None Procedures: 2-D Echocardiogram Summary of Care Provided: Hospital Course: The patient is a 48 year old M with pmxh as above who was admitted to the hospital for the 6th time this year for breathing difficulties. He has a long hx of noncompliance with his sodium and fluid restriction, he has refused to use oxygen at all times at home, he does not consistently use his bipap, and he does not comply with recommendations on LE compression. He was found again to have evidence of CHF as the primary reason for his SOB. He had gained 5 kg in 2 days since his last dialysis. He was admitted to the PCU on tele. EKG was negative. CXR was c/w CHF. BNP was elevated. He was placed on bipap overnight. Dr. Gregorio was consulted for dialysis - he consistently has 6L removed per session. We stressed with him the importance of daily weights, sticking to 2000 mg sodium diet, with 1500 cc daily fluid restriction, and renal diet, and using bipap any time he is sleeping and using compression stockings daily for LE edema. Once again, with these restrictions and regular dialysis his respiratory problems returned to baseline. He was stable on 2lpm o2 at rest and 3 lpm ambulating. He did not use compression while here and would not use our bipap every time he slept as our mask was uncomfortable. He remained normal sinus on tele. Palliative care was consulted and met with him as an inpatient, as he has not been able to see them as an outpatient since he has been in and out of the hospital so frequently. At the request of palliative care, a nebulizer was arranged for him, and low dose oxycodone was ordered for home to help with pain and breathing. He was discharged home in stable condition. He will need follow up with palliative as needed, follow up with pulmonology as directed, and nephrology as directed, and follow up with his PCP in 1-2 weeks. This patient was seen by Zachariah Meza PA-C under the supervision of Dr. Marie. [] Patient Problems: Active and Suspected Problems (Last Reviewed 08/12/19 @ 05:22 by Eze Rivera MD) CHF (congestive heart failure) (Acute) - Physical Exam Vitals/I&O's: Vital Signs Temp Pulse Resp BP Pulse Ox 97.5 F L 67 18 144/64 H 96 08/14/19 13:26 08/14/19 13:26 08/14/19 13:26 08/14/19 13:26 08/14/19 13:44 Oxygen Flow Rate (L/min) [ 4 AMBULATING on Room Air] Oxygen Flow Rate (L/min) [ 2 AMBULATION with Oxygen] Oxygen Flow Rate (L/min) [At 2 REST on Room Air] Oxygen Flow Rate (L/min) 3 Oxygen Delivery Method Nasal Cannula Weight: 252 lb 3.341 oz Body Mass Index (BMI) 41.5 Finger Stick Blood Glucose 410 Intake and Output for Last 24 Hours 08/12/19 08/13/19 08/14/19 23:59 23:59 23:59 Intake Total 600 / 600 680 / 680 320 / 320 Output Total 3100 / 3100 14631 / 83872 250 / 250 Balance -2500 / -2500 -9740 / -9740 70 / 70 General: Alert, Oriented x3, Cooperative HEENT: Atraumatic, PERRLA, EOMI, Normocephalic Neck: Supple, No JVD, Negative Carotid Bruits Lungs: Clear to auscultation, Diminished Cardiovascular: Regular rate, No murmurs Abdomen: Bowel Sounds Present, Soft, Non Tender Extremities: No edema, Capillary Refill Less than 3 Seconds Skin: No rashes, No breakdown Musculoskeletal: No Tenderness to Palpation of Joints or Extremities Neurological: Cranial nerves II-XII grossly intact Psych/Mental Status: Normal Affect, Appropriate, Alert and oriented to time, place, person, mood and affect Laboratory Results 08/13/19 16:51: POC Glucose 186 H 08/13/19 21:10: POC Glucose 220 H 08/14/19 03:18: POC Glucose 257 H 08/14/19 06:05: Sodium 132 L, Potassium 4.6, Chloride 97 L, Carbon Dioxide 29.0, Anion Gap 6, BUN 44 H, Creatinine 5.18 H, Estim Creat Clear Calc 15.95, Est GFR (MDRD) Af Amer 15 L, Est GFR (MDRD) Non-Af 13 L, BUN/Creatinine Ratio 8.5 L, Glucose 318 H, Calcium 8.1 L 08/14/19 09:36: POC Glucose 292 H 08/14/19 12:52: POC Glucose 210 H Current Medications Acetaminophen (Tylenol) 650 mg PO Q6H PRN PRN PRN Reason: Pain Score 1-10/Temp > 100.7 F Last Admin: 08/14/19 13:03 Dose: 650 mg Documented by: Amlodipine Besylate (Norvasc) 10 mg PO DAILY [facility] Last Admin: 08/14/19 09:43 Dose: 10 mg Documented by: [facility] Last Admin: 02/12/20 09:44 Dose: 81 mg Documented by: Atorvastatin Calcium (Lipitor) 20 mg PO QHS [facility] Last Admin: 08/13/19 21:14 Dose: 20 mg Documented by: Collagenase (Santyl) 1 applic TOPICAL DAILY [facility]; Protocol Last Admin: 08/14/19 09:56 Dose: 1 applic Documented by: Cyclobenzaprine HCl (Flexeril) 10 mg PO TID PRN PRN PRN Reason: SPASMS Last Admin: 08/14/19 01:05 Dose: 10 mg Documented by: Enoxaparin Sodium (Lovenox) 30 mg SC DAILY [facility] Last Admin: 08/14/19 09:53 Dose: 30 mg Documented by: Fluticasone Propionate (Flonase Nasal [place]) 1 spray NASAL DAILY [facility] Last Admin: 08/14/19 09:47 Dose: 1 spray Documented by: Furosemide (Lasix) 80 mg IV BIDLX [facility] Last Admin: 08/14/19 09:48 Dose: 80 mg Documented by: Gabapentin (Neurontin) 300 mg PO BIDCM [facility] Last Admin: 08/14/19 10:02 Dose: 300 mg Documented by: Glucagon () 1 mg IM .X1 PRN PRN Reason: Hypoglycemia Hydralazine HCl (Apresoline Iv) 5 mg IV Q4H PRN PRN PRN Reason: SBP > 160 Last Admin: 08/12/19 05:36 Dose: 5 mg Documented by: Sodium Chloride () 250 mls @ 15 mls/hr IV .[id number] PRN PRN Reason: Saline Flush Sodium Chloride () 250 mls @ 15 mls/hr IV .[id number] PRN PRN Reason: Additional IVPB Infusion Dextrose (Dextrose 10%-Water) 250 mls @ 999 mls/hr IV .Q16M PRN; Protocol PRN Reason: HYPOGLYCEMIA Insulin Glargine (Lantus (Bkc)) 20 units SC QHS [facility] Last Admin: 08/13/19 21:14 Dose: 20 u Documented by: Insulin Human Lispro (Humalog Kwikpen (Bkc)) 0 unit SC ACHS & 3AM [facility]; Protocol Last Admin: 08/14/19 13:55 Dose: 4 unit Documented by: Insulin Human Lispro (Humalog Kwikpen (Bkc)) 18 unit SC 0800,1200,1700 [facility] Last Admin: 08/14/19 13:54 Dose: 18 unit Documented by: Isosorbide Mononitrate (Imdur) 30 mg PO DAILY [facility] Last Admin: 08/14/19 09:44 Dose: 30 mg Documented by: Metoprolol Tartrate (Lopressor (Beta Emmanuel)) 50 mg PO BID [facility] Last Admin: 08/14/19 09:43 Dose: 50 mg Documented by: Multivit/Ca Carb/B Cmplx/FA/Prenat (Nephrocaps, Renaphro) 1 capsule PO DAILY [facility] Last Admin: 08/14/19 09:43 Dose: 1 capsule Documented by: Multivitamins/Minerals (Healthy Eyes (Bkc)) 1 capsule PO DAILY [facility] Last Admin: 08/14/19 09:44 Dose: 1 capsule Documented by: Nutritional Formula (Lactose Free) (Glucerna Shake) 120 ml PO TIDCM [facility] Last Admin: 08/14/19 13:03 Dose: 120 ml Documented by: Pantoprazole Sodium (Protonix) 40 mg PO DAILY [facility] Last Admin: 08/14/19 09:43 Dose: 40 mg Documented by: Promethazine HCl (Phenergan Tablet) 25 mg PO TID PRN PRN Reason: VOMITING Sertraline HCl (Zoloft) 25 mg PO DAILY [facility] Last Admin: 08/14/19 09:43 Dose: 25 mg Documented by: Sevelamer Carbonate (Renvela) 2,400 mg PO TIDCM [facility] Last Admin: 08/14/19 12:59 Dose: 2,400 mg Documented by: Sodium Chloride () 10 - 40 ml IV UD PRN PRN Reason: SALINE FLUSH Last Admin: 08/14/19 09:49 Dose: 10 ml Documented by: Trazodone HCl (Desyrel) 50 mg PO QHS [facility] Last Admin: 08/13/19 21:14 Dose: 50 mg Documented by: Discharge Diet: Low fat/ Low Cholesterol, 1800 Calorie Control Diet, 2000 mg Sodium Diet, - - fluid restriction 1500 cc daily Discharge Activity: Return to Normal Activity Call your doctor if you observe: Shortness of breath, Swelling in the ankles, Chest pain Home Medications: Medications to take at Discharge Atorvastatin Calcium [Lipitor] 20 mg PO QHS 10/11/17 Vits A,C,E/Lutein/Minerals [Ocuvite with Lutein Tablet] 1 ea PO DAILY 10/11/17 Folic Acid/Vitamin B Comp W-C [Nephrocaps, Renaphro] 1 cap PO DAILY 10/27/17 albuterol sulfate 90 mcg/actuation aerosol inhaler 2 puff INHALATION Q4H PRN #18 g 02/26/18 Aspirin E.C. [Ecotrin] 81 mg PO DAILY 03/23/18 Cyclobenzaprine HCl 10 mg PO TID PRN PRN 03/23/18 Fluticasone 0.05% [Flonase Nasal [place]] 1 spray NASAL DAILY 03/23/18 Gabapentin [Neurontin] 300 mg PO BID 03/23/18 isosorbide mononitrate 30 mg tablet,extended release 24 hr 30 mg PO DAILY #30 tab 07/24/18 Metoprolol Tartrate [Lopressor (beta emmanuel)] 50 mg PO BID 03/12/19 Omeprazole 40 mg PO DAILY 03/12/19 proMETHazine tablet [Phenergan tablet] 25 mg PO TID PRN 03/13/19 Sevelamer HCl [Renagel] 2,400 mg PO TID #0 03/20/19 traZODone [Desyrel] 50 mg PO QHS 07/06/19 Amlodipine [Norvasc] 10 mg PO DAILY #30 tab 07/12/19 Collagenase [Santyl] 1 applic TOPICAL DAILY tube 07/24/19 Sertraline HCl [Zoloft] 25 mg PO DAILY 08/05/19 Acetaminophen [Tylenol Tablet] 650 mg PO Q6H PRN PRN tab 08/08/19 Insulin Lispro [Humalog KwikPen] 15 unit SUBCUT 0800,1200,1700 insuln.pen 08/08/19 Furosemide [Lasix] 80 mg PO BIDLX #60 tab 08/10/19 Insulin Lispro [Humalog KwikPen] See Protocol SUBCUT ACHS 08/10/19 Ipratropium/Albuterol Sulfate [Duoneb] 3 ml INHALATION Q6H #120 ampul.neb 08/14/19 Oxycodone [Oxyir] 5 mg PO Q6H PRN PRN 3 Days #12 tab 08/14/19 Following Prescrptions Were Given to Patient: Ipratropium/Albuterol Sulfate [Duoneb] 3 ml INHALATION Q6H #120 ampul.neb Transmission Status: Sent to [facility] Oxycodone [Oxyir] 5 mg PO Q6H PRN PRN 3 Days #12 tab PRN Reason: Pain Score 6-10 Transmission Status: Sent to [facility] Primary Care Physician: Augie Washburn MD [Primary Care Provider] - Please follow up with your Primary Care Physician in: 1-2 weeks Please Follow Up With: Palliative care When: this week Please Follow Up With: Anca Gregorio DO When: as directed Please Follow Up With: Miriam Mix NP-C When: as directed Please Follow Up With: Maurice Vieyra MD Please Follow Up With: Augie Washburn MD Disposition: Home Minutes spent on discharge:: 35 Patient Condition:: Stable Medical Necessity - Tobacco Use Smoking Status: Never smoker Meaningful Use Info Meaningful Use Diagnoses (Choose all that apply): CHF - CHF ERICKA/ARB ordered at discharge?: No Reason ERICKA/ARB not ordered?: Worsening renal disease Documented LVEF (%): 60 <Dharmesh Marie - Last Filed: 08/14/19 15:32> Discharge Date and Diagnosis - Primary Discharge Diagnosis Active and Suspected Problems (Last Reviewed 08/12/19 @ 05:22 by Eze Rivera MD) CHF (congestive heart failure) (Acute) - Secondary Discharge Diagnosis Chronic Problems (Last Reviewed 08/12/19 @ 05:22 by Eze Rivera MD) Noncompliance (Chronic) Pulmonary hypertension (Chronic) Morbid obesity with BMI of 40.0-44.9, adult (Chronic) End stage renal disease on dialysis (Chronic) Peripheral vascular disease (Chronic) Toe fracture, right (Chronic) Ulcer of right foot with fat layer exposed (Chronic) Chronic ulcer of left foot with fat layer exposed (Chronic) Type 2 diabetes mellitus with diabetic polyneuropathy (Chronic) Chronic ulcer of left foot with fat layer exposed (Chronic) Chronic respiratory failure with hypoxia (Chronic) HTN (hypertension) (Chronic) Hyperlipidemia (Chronic) Diabetic neuropathy (Chronic) Anemia (Chronic) SELMA (obstructive sleep apnea) (Chronic) Hospital Course and Treatment Consultations 08/12/19 07:21 Consult: Onc/Wound/flatwork feeder Routine Comment: Summary of Care Provided: This patient was seen in conjunction with Zachariah LEBLANC. I have independently interviewed and examined the patient and reviewed pertinent history, examination findings, laboratory and plan of management. I have reviewed the note and agree with the documented findings with the few additional points. In brief, patient is 48-year-old gentleman with multiple comorbidities and recurrent admission this time was admitted for shortness of breath. Patient is also noncompliant to weight checking, sodium and fluid restriction, oxygen use/BiPAP. Patient being followed by behavior interventionist. Chest x-ray was done and is consistent with pulmonary venous congestion/CHF exacerbation. BNP elevated. Patient had hemodialysis as per behavior interventionist recommendation and 6 L was removed per session. Patient lost about 18 lbs since admission was mainly from his water gain. Palliative care consult was done Compliance reinforced. Telemetry reviewed. Normal sinus rhythm Discharge medication reconciliation done. Discharge follow-up instructions completed. Discharge process discussed with the patient and all questions were answered to patient's satisfaction. Follow-up with pulmonary, palliative care as outpatient. Total time spent, exact 35 minutes on discharge meds reconciliation, examination, coordination of care with nurses and ancillary staff, review of imaging and blood test and discussion with the patient on follow-up instructions I have discussed my assessment with Zachariah LEBLANC and orders have been reviewed. [] Subjective: Seen and examined. Patient admitted with CHF exacerbation. History of recurr ent admission for similar diagnosis. Patient noncompliant with medication and water intake. On hemodialysis Objective: Patient is comfortable on sitting. No dyspnea at rest. Denies chest pain. Patient has BiPAP at night. - Physical Exam Vitals/I&O's: Vital Signs Temp Pulse Resp BP Pulse Ox 97.5 F L 67 18 144/64 H 96 08/14/19 13:26 08/14/19 13:26 08/14/19 13:26 08/14/19 13:26 08/14/19 13:44 Oxygen Flow Rate (L/min) [ 4 AMBULATING on Room Air] Oxygen Flow Rate (L/min) [ 2 AMBULATION with Oxygen] Oxygen Flow Rate (L/min) [At 2 REST on Room Air] Oxygen Flow Rate (L/min) 3 Oxygen Delivery Method Nasal Cannula Weight: 252 lb 3.341 oz Body Mass Index (BMI) 41.5 Finger Stick Blood Glucose 410 Intake and Output for Last 24 Hours 08/12/19 08/13/19 08/14/19 23:59 23:59 23:59 Intake Total 600 / 600 680 / 680 320 / 320 Output Total 3100 / 3100 04854 / 26957 250 / 250 Balance -2500 / -2500 -9740 / -9740 70 / 70 General: Alert, Oriented x3, Cooperative HEENT: Atraumatic, PERRLA, EOMI, Normocephalic Oral: Dry Mucosa Neck: Supple, No JVD, Negative Carotid Bruits Lungs: Clear to auscultation, No rhonchi, No wheeze, No rales, Diminished - Air entry diminished in bilateral lung bases. Cardiovascular: Regular rate, Regular Rhythm, Normal S1, Normal S2, No murmurs Abdomen: Bowel Sounds Present, Soft, Non Tender, Non-Distended Extremities: Capillary Refill Less than 3 Seconds, Edema Skin: No rashes, No breakdown Musculoskeletal: No Tenderness to Palpation of Joints or Extremities, Arthritic Changes Neurological: Cranial nerves II-XII grossly intact, Neuro grossly intact Psych/Mental Status: Normal Affect, Appropriate Laboratory Results 08/13/19 16:51: POC Glucose 186 H 08/13/19 21:10: POC Glucose 220 H 08/14/19 03:18: POC Glucose 257 H 08/14/19 06:05: Sodium 132 L, Potassium 4.6, Chloride 97 L, Carbon Dioxide 29.0, Anion Gap 6, BUN 44 H, Creatinine 5.18 H, Estim Creat Clear Calc 15.95, Est GFR (MDRD) Af Amer 15 L, Est GFR (MDRD) Non-Af 13 L, BUN/Creatinine Ratio 8.5 L, Glucose 318 H, Calcium 8.1 L 08/14/19 09:36: POC Glucose 292 H 08/14/19 12:52: POC Glucose 210 H Current Medications Acetaminophen (Tylenol) 650 mg PO Q6H PRN PRN PRN Reason: Pain Score 1-10/Temp > 100.7 F Last Admin: 08/14/19 13:03 Dose: 650 mg Documented by: Amlodipine Besylate (Norvasc) 10 mg PO DAILY [facility] Last Admin: 08/14/19 09:43 Dose: 10 mg Documented by: [facility] Last Admin: 08/14/19 09:44 Dose: 81 mg Documented by: Atorvastatin Calcium (Lipitor) 20 mg PO QHS [facility] Last Admin: 02/11/20 21:14 Dose: 20 mg Documented by: Collagenase (Santyl) 1 applic TOPICAL DAILY [facility]; Protocol Last Admin: 08/14/19 09:56 Dose: 1 applic Documented by: Cyclobenzaprine HCl (Flexeril) 10 mg PO TID PRN PRN PRN Reason: SPASMS Last Admin: 08/14/19 01:05 Dose: 10 mg Documented by: Enoxaparin Sodium (Lovenox) 30 mg SC DAILY [facility] Last Admin: 08/14/19 09:53 Dose: 30 mg Documented by: Fluticasone Propionate (Flonase Nasal [place]) 1 spray NASAL DAILY [facility] Last Admin: 08/14/19 09:47 Dose: 1 spray Documented by: Furosemide (Lasix) 80 mg IV BIDLX [facility] Last Admin: 08/14/19 09:48 Dose: 80 mg Documented by: Gabapentin (Neurontin) 300 mg PO BIDCM [facility] Last Admin: 08/14/19 10:02 Dose: 300 mg Documented by: Glucagon () 1 mg IM .X1 PRN PRN Reason: Hypoglycemia Hydralazine HCl (Apresoline Iv) 5 mg IV Q4H PRN PRN PRN Reason: SBP > 160 Last Admin: 08/12/19 05:36 Dose: 5 mg Documented by: Sodium Chloride () 250 mls @ 15 mls/hr IV .[id number] PRN PRN Reason: Saline Flush Sodium Chloride () 250 mls @ 15 mls/hr IV .[id number] PRN PRN Reason: Additional IVPB Infusion Dextrose (Dextrose 10%-Water) 250 mls @ 999 mls/hr IV .Q16M PRN; Protocol PRN Reason: HYPOGLYCEMIA Insulin Glargine (Lantus (Bkc)) 20 units SC QHS [facility] Last Admin: 08/13/19 21:14 Dose: 20 u Documented by: Insulin Human Lispro (Humalog Kwikpen (Bk)) 0 unit SC ACHS & 3AM [facility]; Protocol Last Admin: 08/14/19 13:55 Dose: 4 unit Documented by: Insulin Human Lispro (Humalog Kwikpen (Bkc)) 18 unit SC 0800,1200,1700 [facility] Last Admin: 08/14/19 13:54 Dose: 18 unit Documented by: Isosorbide Mononitrate (Imdur) 30 mg PO DAILY [facility] Last Admin: 08/14/19 09:44 Dose: 30 mg Documented by: Metoprolol Tartrate (Lopressor (Beta Emmanuel)) 50 mg PO BID [facility] Last Admin: 08/14/19 09:43 Dose: 50 mg Documented by: Multivit/Ca Carb/B Cmplx/FA/Prenat (Nephrocaps, Renaphro) 1 capsule PO DAILY [facility] Last Admin: 08/14/19 09:43 Dose: 1 capsule Documented by: Multivitamins/Minerals (Healthy Eyes (Bkc)) 1 capsule PO DAILY [facility] Last Admin: 08/14/19 09:44 Dose: 1 capsule Documented by: Nutritional Formula (Lactose Free) (Glucerna Shake) 120 ml PO TIDCM [facility] Last Admin: 08/14/19 13:03 Dose: 120 ml Documented by: Pantoprazole Sodium (Protonix) 40 mg PO DAILY [facility] Last Admin: 08/14/19 09:43 Dose: 40 mg Documented by: Promethazine HCl (Phenergan Tablet) 25 mg PO TID PRN PRN Reason: VOMITING Sertraline HCl (Zoloft) 25 mg PO DAILY [facility] Last Admin: 08/14/19 09:43 Dose: 25 mg Documented by: Sevelamer Carbonate (Renvela) 2,400 mg PO TIDCM [facility] Last Admin: 08/14/19 12:59 Dose: 2,400 mg Documented by: Sodium Chloride () 10 - 40 ml IV UD PRN PRN Reason: SALINE FLUSH Last Admin: 08/14/19 09:49 Dose: 10 ml Documented by: Trazodone HCl (Desyrel) 50 mg PO QHS [facility] Last Admin: 08/13/19 21:14 Dose: 50 mg Documented by: Code Visit Inpatient E&M: [id number] Disch Hosp
--- NOTE | 2019-08-14 15:30 | CASEMGMT ---
Pt qualifies for 3liters home oxygen with ambulation at this time [facility] Nebulizer order also faxed to [employer] at this time. [facility] faxed info previously and d/c summ/instructions faxed at this time. [facility] states they plan start of care tomorrow for pt. Pt does have dialysis tomorrow am and plans to go. Heather FAMILY SERVICE ASSISTANT at [facility] palliative plans to see pt tomorrow as well. Pt/sig updated on all at this time-voice understanding and voice no further questions/concerns/needs at this time. Pt in no distress at this time on 2liters nc, sitting up on side of bed. Pt states plans to call [place] to get transport set up for dialysis tomorrow. Call to Maria D at [facility] to notify of pt discharge and discharge plans, voices understanding. Neville MACARIO CM
--- NOTE | 2019-08-15 15:47 | CASEMGMT ---
Addendum entered by Pedrito Hutton 08/15/19 16:25: Call placed [place] Sanju [place] [facility]. He was made aware that pt plans to picker machine operator the nebulizer @ [facility] [place]. Sanju also made aware pt states he has not had any calls from [employer]. Confirmed with Sanju that they do have the correct number for pt and they do. Original Note: AMIRAH BAUER Discharge Follow-Up Phone Call. Lace: 14 Strata: 4 Discharge Date: 08/14/19 Adm Dx: Acute Exac Heart Failure Call to pt to inquire about how has been doing since being discharged from the hospital. Pt stated he is doing okay, but states he has not received the nebulizer from [facility]. [facility] to [facility] to inquire about [facility]bulizer. They confirmed they did receive the order for the nebulizer but it was over-looked. She stated she would get the order to the intake department to process the order. She could not confirm the nebulizer would be delivered this evening. AMIRAH BAUER asked to speak to the intake department to have this order expedited, as pt needs the nebulizer today. AMIRAH BAUER spoke with intake department directly who states the nebulizer would not be able to be delivered today, but pt could picker machine operator the nebulizer today at the [facility]. Call placed to Christa @ [facility]. She states they have been unable to reach pt via phone. Call placed back to Mr Gregorio. He states he has not had any missed calls from [employer]. He states he is not at home and no one is there for nebulizer to be delivered and he will not be able to get to the [facility] to picker machine operator the nebulizer today by 5 PM. He states he will stop at [facility] tomorrow and picker machine operator the nebulizer. Mr Gregorio was also provided with [employer]'s 1-800 # if he has any further needs or questions from [facility]. Mr Gregorio states he does not have any questions about the discharge instructions. He was able to picker machine operator the Oxy yesterday and denies having questions about the other medications. He states Rea from Palliative plans to see him tomorrow and that nurse from [facility] was out to his home today. He states he was able to make it to dialysis this morning. He states he has an appt with King ALAINA tomorrow @ [facility] and with Dr Washburn on 08/20 and is aware of the appt with Miriam Blankenship in October. He denies any needs/concerns at this time. Macie BSN RN CM
== END 2019-08-14 16:10 | disposition home health service (06) | DRG 291 ==
LOC: ED 03:18 → PCU 03:55
PROVIDERS: Physician Assistant; Admitting Provider Hospitalist; Emergency Provider Emergency Medicine; PCP Internal Medicine; Visit Provider Internal Medicine
DX: I13.2 Hypertensive heart and chronic kidney disease with heart failure and with stage 5 chronic kidney disease, or end stage renal disease (principal); N18.6 End stage renal disease; I50.33 Acute on chronic diastolic (congestive) heart failure; Z68.41 Body mass index [BMI] 40.0-44.9, adult; J96.11 Chronic respiratory failure with hypoxia; E87.1 Hypo-osmolality and hyponatremia; E11.22 Type 2 diabetes mellitus with diabetic chronic kidney disease; G47.33 Obstructive sleep apnea (adult) (pediatric); E66.01 Morbid (severe) obesity due to excess calories; D64.9 Anemia, unspecified; Z99.2 Dependence on renal dialysis; Z91.11 Patient's noncompliance with dietary regimen; I27.20 Pulmonary hypertension, unspecified; Z79.4 Long term (current) use of insulin; E78.5 Hyperlipidemia, unspecified; I73.9 Peripheral vascular disease, unspecified
CPT/HCPCS: 36415; 36600; 70450; 71046; 80048; 80053; 82803; 82962; 84484; 85025; 90937; 93005; 94002; 94003; 94640; 97162; 97166; 97802; 99285; J7030; A4216; G0257; J1940; Q5106

== ENCOUNTER 2019-08-28 14:34 | Outpatient (RCR) | payer MEDICARE, MEDICAID, SELFPAY ==
[2019-08-02 00:41] VITALS: BMI 39.9
[2019-08-03 00:41] VITALS: BP 185/78; PULSE 67; RESP 16; TEMP 36.2
[2019-08-19 09:51] VITALS: BMI 41.5
[2019-08-28 15:03] VITALS: BP 112/32; PULSE 70; RESP 16; TEMP 37.6; BMI 41.5
--- NOTE | 2019-08-28 23:48 | PCM.WC.PN ---
(1) Chronic ulcer of left foot with fat layer exposed Status: Chronic Current Visit: Yes Code(s): L97.522 - Non-pressure chronic ulcer of other part of left foot with fat layer exposed (2) Ulcer of right foot with fat layer exposed Status: Chronic Current Visit: Yes Code(s): L97.512 - Non-pressure chronic ulcer of other part of right foot with fat layer exposed (3) Malnutrition Status: Suspected Current Visit: Yes Code(s): E46 - Unspecified protein-calorie malnutrition (4) End stage renal disease on dialysis Status: Chronic Current Visit: Yes Code(s): N18.6 - End stage renal disease; Z99.2 - Dependence on renal dialysis (5) Peripheral vascular disease Status: Chronic Current Visit: Yes Code(s): I73.9 - Peripheral vascular disease, unspecified (6) Type 2 diabetes mellitus with diabetic polyneuropathy Status: Chronic Current Visit: Yes Qualifiers: Code(s): E11.42 - Type 2 diabetes mellitus with diabetic polyneuropathy Type of Wound Date of Service: 08/28/19 Chief Complaint: Right foot ulcer. Left foot ulcer History of Wound: This 49-year-old male with diabetes, peripheral vascular disease (calcified vessels), chronic kidney disease, sleep apnea, obesity and other comorbidities had chronic bilateral foot ulcers with osteomyelitis of the right fifth metatarsal head. He underwent right fifth ray resection on May 16, 2019 at [facility] to address this condition. He was subsequently treated with IV and oral antibiotics under the management of infectious disease and continues on a course of vancomycin and cefepime intravenously on hemodialysis days and oral Flagyl as well. The stop date of antibiotics is 06/27/2019. He denies fever, chill, nausea, vomiting. It is also noted he had prior vascular intervention with Dr. Tuttle earlier this year. He thinks the right foot is healed and denies drainage. He has continued drainage and scab formation to the left foot. He reports he has lost track of time and thinks he has not been to clinic in only two weeks when it has been about a month and a half. He has been in and out of the hospital for pulmonary issues. He is with his today. He has trouble offloading his foot and changing his dressings. He wears sandals and has not been compliant with surgical offloading shoes. Progress of Wound: improving right. left worse - Physical Exam Vital Signs Temp Pulse Resp BP 99.6 F H 70 16 112/32 L 08/28/19 15:03 08/28/19 15:03 08/28/19 15:03 08/28/19 15:03 General: Alert, Oriented x3, Cooperative, No apparent distress HEENT: Atraumatic Extremities: No cyanosis, Capillary Refill Less than 3 Seconds, No Calf Tenderness, Diminished Peripheral Pulses, Edema, - - right fifth ray resection. left hammer toes with promient fifth metatarsal head Skin: Ulcer/ Wound - small skin discontinuity to distal lateral forefoot with granular base and small peripheral callous. no purulence, erythema, streaking, odor noted right. the left sub 5th metatarsal ulcer is devitalized with moist eschar. upon debridement there is an odor and remaining fibrous tissue with sparse granulation tissue. there is no probe to bone or capsule. there is no left foot erythema, streaking or purulence noted. the skin in general is hairless, thin, and atrophic Wound Measurements and Assessment WC - Nurse 1 - General Ulcer Measurement Start: 08/28/19 15:02 Freq: Status: Active Protocol: Activity Type Activity Date Activity User E-Sign Co-Sign Detail Recorded Client Recorded Date Recorded By Document 08/28/19 15:03 [facility] [id number] 08/28/19 15:10 [facility] 08/28/19 15:03 Wound Center Nurse 1 [Ulcer Assessment] #6- L LATERAL PLANTAR FOOT -Combined with other wound No -Current Size (cm) - Length 3.5 -Current Size (cm) - Width 4 -Current Size (cm) - Depth 0.1 -Total Square Cm 14.0 -Date of Last Picture (Recall this 08/28/19 field) -Photo Taken Yes -Epithelialization None Present -Tunneling No -Undermining/Tunneling No -Circular Undermining No -Exudate Amt Medium -Exudate Type Serosanguineous -Wound Margin Distinct, Outline Attached -Granulation Amt Small (1-33%) -Granulation Quality Red -Slough/Fibrin Yes -Necrosis Amt Large (67-100%) -Necrotic Tissue Type Eschar -Texture (Amanda-wound Skin Appearance) Assessed, Scarring -Moisture (Amanda-wound Skin Appearance Assessed ) -Color (Amanda-wound Skin Appearance) Assessed, Erythema -Temperature (Amanda-wound Skin No Abnormality Appearance) (Pt Warm) -Tenderness on Palpation (Maanda-wound Yes Skin Appearance) -Ulcer Cleansing SOAPY WATER -Foul Odor after Cleansing No -Anesthetic Used 5% Lidocaine Gel #5- R LATERAL FOOT -Combined with other wound No -Current Size (cm) - Length 0.1 -Current Size (cm) - Width 0.1 -Current Size (cm) - Depth 0.1 -Total Square Cm 0.01 -Date of Last Picture (Recall this 08/28/19 field) -Photo Taken Yes -Epithelialization None Present -Tunneling No -Undermining/Tunneling No -Circular Undermining No -Exudate Amt None Present -Wound Margin Distinct, Outline Attached -Granulation Amt None Present (0 %) -Slough/Fibrin Yes -Necrosis Amt Small (1-33%) -Necrotic Tissue Type Adherent Slough -Texture (Amanda-wound Skin Appearance) Assessed, Scarring -Moisture (Amanda-wound Skin Appearance Assessed,Dry/ ) Scaly -Color (Amanda-wound Skin Appearance) Assessed -Temperature (Amanda-wound Skin No Abnormality Appearance) (Pt Warm) -Tenderness on Palpation (Amanda-wound No Skin Appearance) -Ulcer Cleansing SOAPY WATER -Foul Odor after Cleansing No -Anesthetic Used 5% Lidocaine Gel [Edema Assessment] -Lower Limb Edema Present Yes -Right Calf (cm) 44.6 -Right Ankle (cm) 24.5 -Left Calf (cm) 46.5 -Left Ankle (cm) 25.3 WC - Nurse 2 - General Ulcer CM Notes Start: 08/28/19 15:02 Freq: Status: Active Protocol: Activity Type Activity Date Activity User E-Sign Co-Sign Detail Recorded Client Recorded Date Recorded By Document 08/28/19 15:24 [id number] 08/28/19 15:29 08/28/19 15:24 Wound Center Nurse 2 [Procedure/Treatment] #6- L LATERAL PLANTAR FOOT -Time 15:24 -Correct Patient Yes -Correct Side, Site, Position Yes -Correct Procedure Yes -Procedure Performed Yes -Type of Procedure Debridement -Clinical Debridement Subcutaneous -Post Debridement Size (cm) - Length 3.5 -Post Debridement Size (cm) - Width 4.1 -Post Debridement Size (cm) - Depth 0.1 -Total Square Cm 14.35 -Wound/Ulcer Outcome Not Healed -Ulcer Cleansing Rinsed/ Irrigated with Saline -Foul Odor after Cleansing No -Bioengineered Tissue No -Bleeding Controlled with Pressure -Offloading No -Treatment Response Procedure Tolerated Well #5- R LATERAL FOOT -Time 15:25 -Correct Patient Yes -Correct Side, Site, Position Yes -Correct Procedure Yes -Procedure Performed Yes -Type of Procedure Debridement -Clinical Debridement Subcutaneous -Post Debridement Size (cm) - Length 0.4 -Post Debridement Size (cm) - Width 0.3 -Post Debridement Size (cm) - Depth 0.1 -Total Square Cm 0.12 -Wound/Ulcer Outcome Not Healed -Ulcer Cleansing Rinsed/ Irrigated with Saline -Foul Odor after Cleansing No -Bioengineered Tissue No -Bleeding Controlled with Pressure -Offloading No -Treatment Response Procedure Tolerated Well [See Physician Procedure note for Specifics] Pain Scale: 0-10 Numeric [Pain] -Is Patient Pain Free? Yes Neurological: - - lack of normal epicritic sensation via light touch consistent with neuropathy Psych/Mental Status: Normal Affect, Appropriate, - - lethargic Debridement Note Post-Debridement Measurements/Treatment WC - Nurse 2 - General Ulcer CM Notes Start: 08/28/19 15:02 Freq: Status: Active Protocol: Activity Type Activity Date Activity User E-Sign Co-Sign Detail Recorded Client Recorded Date Recorded By Document 08/28/19 15:24 MICHAEL [id number] 08/28/19 15:29 MICHAEL 08/28/19 15:24 Wound Center Nurse 2 #6- L LATERAL PLANTAR FOOT -Time 15:24 -Correct Patient Yes -Correct Side, Site, Position Yes -Correct Procedure Yes -Procedure Performed Yes -Type of Procedure Debridement -Clinical Debridement Subcutaneous -Post Debridement Size (cm) - Length 3.5 -Post Debridement Size (cm) - Width 4.1 -Post Debridement Size (cm) - Depth 0.1 -Total Square Cm 14.35 -Wound/Ulcer Outcome Not Healed -Ulcer Cleansing Rinsed/ Irrigated with Saline -Foul Odor after Cleansing No -Bioengineered Tissue No -Bleeding Controlled with Pressure -Offloading No -Treatment Response Procedure Tolerated Well #5- R LATERAL FOOT -Time 15:25 -Correct Patient Yes -Correct Side, Site, Position Yes -Correct Procedure Yes -Procedure Performed Yes -Type of Procedure Debridement -Clinical Debridement Subcutaneous -Post Debridement Size (cm) - Length 0.4 -Post Debridement Size (cm) - Width 0.3 -Post Debridement Size (cm) - Depth 0.1 -Total Square Cm 0.12 -Wound/Ulcer Outcome Not Healed -Ulcer Cleansing Rinsed/ Irrigated with Saline -Foul Odor after Cleansing No -Bioengineered Tissue No -Bleeding Controlled with Pressure -Offloading No -Treatment Response Procedure Tolerated Well Pain Scale: 0-10 Numeric Is Patient Pain Free? Yes Wound debrided: lateral distal forefoot Laterality: Right Wound Grade/Stage: grade 3 Type of Debridement: Excisional debridement Anesthesia Used: 5% Lidocaine Gel Depth: in the subcutaneous layer Percentage of wound debrided: 100 Instrument Used: #15 blade Tissue Removed: fibrous, devitalized subcutaneous, biofilm, slough Severity: Fat Layer Exposed Amount of bleeding with debridement: Mild Bleeding Controlled with: Pressure Patient tolerated procedure well - Additional Wound Wound debrided: sub 5th metatarsal head Laterality: Left Wound Grade/Stage: grade 1 Type of Debridement: Excisional debridement Anesthesia Used: 5% Lidocaine Gel Depth: in the subcutaneous layer Percentage of wound debrided: 100 Instrument Used: #15 blade Tissue Removed: fibrous, devitalized subcutaneous, biofilm, slough Severity: Fat Layer Exposed Amount of bleeding with debridement: Mild Bleeding Controlled with: Pressure Patient tolerated procedure: Patient tolerated procedure well Assessment/Plan Active Problems (Last Reviewed 08/12/19 @ 05:[address] Eze Rivera MD) End stage renal disease on dialysis (Chronic) Peripheral vascular disease (Chronic) Ulcer of right foot with fat layer exposed (Chronic) Chronic ulcer of left foot with fat layer exposed (Chronic) Type 2 diabetes mellitus with diabetic polyneuropathy (Chronic) Assessment: Diabetes with neuropathy (hemoglobin A1c 12%). Status post right fifth ray resection for treatment of osteomyelitis and chronic ulcer, healing well without local signs of infection. Left sub-fifth metatarsal head ulcer, grade 1 and no infection - devitalized worse status. Foot deformities including hammertoes, tailor bunion, and hallux limitus bilateral. Peripheral vascular disease now status post vascular surgery intervention. Other comorbidities including noncompliance, renal disease on dialysis, cardiac history. Malnutrition suspected. Gait instability Plan: I reviewed and discussed his case. Subcutaneous excisional debridement was performed to the right and left foot as noted in the clinical panel. To change dressing daily with Sendia as he has been performing is ready. To wash left foot with hibiclens or dynahex antimicrobial soap with daily dressing changes. I recommend home health for assistance. He is home bound and unable to leave the home solo without significant help and assistance. He has not demonstrated the ability to care for this condition properly on his own. To continue with offloading surgical shoes and heel weight-bear. To use assistive device as needed. Compliance was discussed. His balance loss and unsteadiness is noted with surgical shoe use and I recommend useing the assistive device. To note: His prior clearance fragment was sent to pathology did not demonstrate residual osteomyelitis. His clearance fragment of the right fifth metatarsal was sent to microbiology did demonstrate Enterococcus faecalis growth. His wound culture prior to surgery demonstrated mixed organisms including enterococcus, bacillus, corynebacterium, and anaerobes.He has completed antibiotics as prescribed by the infectious disease physician. . Vascular surgery intervention is noted in greatly appreciated. He had an abdominal pelvic right lower extremity arteriogram with angioplasty of the right proximal anterior tibial artery and right tibial peroneal trunk that was successful. To follow-up with Dr. Tuttle as scheduled. To continue with nutritional supplementation proper glycemic control to optimize healing. Compliance was discussed. It is noted that he is at risk for limb loss due to his condition including his multiple comorbidities. His lab trends will be followed. Pending improvement, we will consider alternative dressing care, surgical debriment, cultures or additional imaging at his follow up. I answered all his questions. The patient was advised to return to the wound healing center in 1 week or call sooner if he is any questions or concerns.
== END 2019-08-31 23:59 ==
LOC: WC 14:34
PROVIDERS: Family Provider Internal Medicine; PCP Internal Medicine; Visit Provider Podiatrist
DX: E11.621 Type 2 diabetes mellitus with foot ulcer (principal); L97.512 Non-pressure chronic ulcer of other part of right foot with fat layer exposed; L97.522 Non-pressure chronic ulcer of other part of left foot with fat layer exposed; E11.51 Type 2 diabetes mellitus with diabetic peripheral angiopathy without gangrene; E11.42 Type 2 diabetes mellitus with diabetic polyneuropathy; E11.22 Type 2 diabetes mellitus with diabetic chronic kidney disease; N18.6 End stage renal disease; Z99.2 Dependence on renal dialysis; M20.42 Other hammer toe(s) (acquired), left foot; G47.30 Sleep apnea, unspecified; E66.9 Obesity, unspecified; Z91.19 Patient's noncompliance with other medical treatment and regimen; Z79.82 Long term (current) use of aspirin; Z79.4 Long term (current) use of insulin; Z79.899 Other long term (current) drug therapy
CPT/HCPCS: 11042; 99213; G0463

== ENCOUNTER 2019-09-04 11:59 | Emergency (ER) | payer MEDICARE, MEDICAID, SELFPAY ==
[2019-09-04 12:00] VITALS: BP 169/59; PULSE 76; RESP 20; TEMP 36.7; O2SAT 94; BMI 42.2
--- NOTE | 2019-09-04 12:23 | CT_ITS ---
STUDY: CT BRAIN WITHOUT CONTRAST REASON FOR EXAM: Male, 49 years old. WEAKNESS RADIATION DOSAGE (If Supplied By Facility): CTDIvol = ( 44.99 ) mGy, DLP = ( 812.98 ) mGycm TECHNIQUE: Transaxial CT imaging of the brain was performed without administration of intravenous contrast material. Individualized dose optimization techniques were used for this CT. COMPARISON: Comparison is made with prior examination dated August 12, 2019. FINDINGS: Normal soft tissue structures. Normal calvarium. Normal size ventricles and extra-axial spaces for the patient''s age. Normal white matter tracts of the cerebral hemispheres. Normal basal ganglia and thalami. Normal brainstem. Normal cerebellum. There is no intracranial hemorrhage. There are no findings of an acute ischemic infarction. Minimal mucosal thickening of the ethmoid sinuses. CT/Brain/Head without Contrast IMPRESSION: Normal unenhanced CT scan of the brain. Minimal mucosal thickening of the ethmoid sinuses. Electronically Signed: Johnnie Aranda, at 13:28 EST , Service support ,
--- NOTE | 2019-09-04 12:23 | EKG12_ITS ---
Test Reason : SOB Blood Pressure : / mmHG Vent. Rate : 077 BPM Atrial Rate : 077 BPM P-R Int : 150 ms QRS Dur : 086 ms QT Int : 382 ms P-R-T Axes : 042 014 202 degrees QTc Int : 432 ms Normal sinus rhythm ST & T wave abnormality, consider inferolateral ischemia Abnormal ECG Confirmed by MORGAN LOMELI, IKE ([id number]), assignment editor JACKIE OJEDA ([id number]) on 09/06/2019 8:07:34 AM Referred By: MISSY Confirmed By:KENNEDY MORA MD
--- NOTE | 2019-09-04 12:30 | RAD_ITS ---
STUDY: X-RAY CHEST REASON FOR EXAM: Male, 49 years old. WEAKNESS, SOB. LETHARGIC? TECHNIQUE: Single AP portable view of the chest. COMPARISON: Comparison is made with prior examination of August 12, 2019. FINDINGS: EKG electrodes are seen. Mild degree of vascular congestion. There is no demonstrated pleural abnormality. There is moderate cardiac enlargement. Normal mediastinum and esmer. Normal visualized pulmonary arteries. Normal visualized aortic arch and descending thoracic aorta. Normal visualized thoracic spine. Normal visualized ribs, clavicles, and shoulders. There is no demonstrated abnormality of the visualized soft tissue structures of the upper abdomen. RAD/Chest 1 View (Portable) IMPRESSION: Moderate cardiomegaly. Mild degree of vascular congestion. Electronically Signed: Johnnie Aranda, at 13:02 EST , Service support ,
--- NOTE | 2019-09-04 12:33 | ED.VIS.GEN ---
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 He states he called the ambulance because he was unable to sit up out of his hospital bed this morning. Chart review shows a history of CHF, obesity, diabetes, hypertension, peripheral vascular disease, end-stage renal disease and chronic foot ulcers. He is a wound center patient and is on dialysis. He wears 3 L of home oxygen but cannot tell me why. He states he called his this morning told her that he was weak and she told him to call the ambulance. EMS noted concerns for living conditions. Patient states that up until a week ago he had home health coming out but they stopped coming and he cannot tell me why. He tells me he had some vomiting on Monday and again on Monday. states he has had a temperature of 100.2 a couple days ago. Last night they went out to dinner and he could not sleep so they were up late. When she needed to wake him up to go to her appointments today he was very tired and should not get his medicines in him. Past Medical History - Allergies and Home Meds Allergies/Adverse Reactions: Allergies venom-honey bee [bee venom (honey bee)] Allergy (Verified 08/12/19 00:31) Swelling sulfamethoxazole [From Bactrim] Adverse Reaction (Verified 08/12/19 00:31) Upset Stomach trimethoprim [From Bactrim] Adverse Reaction (Verified 08/12/19 00:31) Upset Stomach Primary Care Physician: Augie Washburn MD [Primary Care Provider] - As soon as possible Surgical History: tonsillectomy, - Smoking Status: Never smoker - Family History Maternal Family History: Family History (Last Reviewed 08/12/19 @ 05:[address] Eze Rivera MD) Mother Hypertension Heart disease Diabetes Father Hypertension Heart disease Brother Heart disease Family History: Reports: Diabetes, Heart Disease, Hypertension, Renal Disease Paternal Family History: Family History (Last Reviewed 08/12/19 @ 05:[address] Eze Rivera MD) Mother Hypertension Heart disease Diabetes Father Hypertension Heart disease Brother Heart disease Family History: Reports: Cancer - liver, Diabetes, Heart Disease Review of Systems General: Reports: Malaise. Denies: Chills, Fever, Sweats Eyes: Denies: Visual changes - bilaterally, Diplopia ENT: Denies: Rhinorrhea, Sore throat Cardiovascular: Denies: Chest pain, Palpitations Respiratory: Denies: Dyspnea, Cough, Dyspnea on exertion Gastrointestinal: Reports: Nausea, Vomiting. Denies: Abdominal pain, Diarrhea, Melena, Hematochezia Genitourinary: Denies: Dysuria, Hematuria, Frequency Musculoskeletal: Denies: Back pain, Extremity Pain Skin: Denies: Rash, Wounds Neurological: Reports: Weakness. Denies: Headache, Parasthesia, Numbness Psych: Reports: Depression. Denies: Suicidal thoughts, Suicidal ideations Endocrine: Denies: Polyuria, Polydipsia, Heat intolerance, Cold intolerance Hematologic: Denies: Easy bruising, Easy bleeding, Lymphadenopathy Allergy: Denies: Swelling of the mouth, Swelling of the tongue Physical Exam Vital Signs/Narrative: Vital Signs Temp Pulse Resp BP Pulse Ox 09/04/19 12:00 98.1 F 76 20 H 169/59 H 94 Inital Vital Signs reviewed: Yes General: Well nourished, Well developed, Obese, Unkempt, No Acute Distress Head: Normocephalic, Atraumatic Eyes: Perrl, EOMI ENT: Moist mucous membranes, No rhinorrhea Neck: Supple, Nontender Cardiovascular: Regular rate, Regular rhythm, No murmurs Respiratory: No distress, CTA bilaterally, Chest nontender Abdomen: Soft, Nontender, Nondistended, Normal bowel sounds Back: Nontender, Normal Inspection Extremities: Nontender, No edema Skin: Normal color, No rash Neurological: Alert, Oriented x3, Cranial nerves II-XII grossly intact, Normal Strength, Normal Sensation, - - Patient is very slow to respond. To answer yes or no question can take up to a minute or more. Psychological: Normal affect, Normal Mood Diagnostic/Tx/Re-eval - EKG Initial EKG Interpretation: Sinus Rhythm - Sinus rhythm at a rate of 77. Baseline is very poor however there is no definitive ACS features. - Medical Decision Making Social work was contacted and been involved in his care throughout his ED course. Patient has a white count of 16. He has these chronic wounds on his feet which do not look grossly different than the description that Dr. Spann gave their last visit. He is got a little bit of bacteria in his urine. However nitrite is negative. He only makes urine about once a day this could easily be colonization. We can culture this. He is not febrile and his vital signs are normal. is concerned about putting him in the hospital because he has been in and out of the hospital quite a bit over the past couple months. I think it is reasonable to write on Keflex and discharge him home. If he is worsening in the next 24 to 48 hours they may return. is comfortable with this plan is in agreement with it. ED Disposition - Plan for ED Patient: Disposition: Home or Assisted Living Diagnosis: Weakness, UTI (urinary tract infection) Instructions: WEAKNESS, Unk Cause Prescriptions: Cephalexin [Keflex] 500 mg PO Q6 #28 cap Transmission Status: Pending to [email or web address] [place] Referrals: Augie Washburn MD [Primary Care Provider] - As soon as possible
[2019-09-04 12:57] VITALS: O2SAT 96
[2019-09-04 12:59] LABS: Absolute Lymphocyte Count 0.35 X10^3/uL (0.83-4.51); Absolute Neutrophil Count 15.3 X10^3/uL (2.0-7.7); Basophil# 0.03 X10^3/uL; Basophil% 0.2 % (0-1); Eosinophil# 0.06 X10^3/uL; Eosinophils% 0.4 % (0-5); Hemoglobin 10.4 g/dL (13.0-16.5); Lymphocyte # 0.35 X10^3/ul (4.0); Lymphocyte % 2.1 % (19-41); Mean Corp Hgb Conc 31.5 g/dL (32-36); Mean Corpuscular Hgb 28.4 pg (27.0-32.0); Mean Corpuscular Volume 90.2 fL (80-94); Mean Platelet Vol. 10.4 fl (6.2-12.0); Monocyte# 0.71 X10^3/uL; Monocyte% 4.3 % (0-10); NRBC Flagged by Analyzer 0 % (0-5); Neutrophil # 15.28 X10^3/uL (2.7-7.7); Neutrophil % 92.2 % (47-70); POSITIVE DIFFERENTIAL YES; Platelet Count 221 K/mm3 (150-450); RBC Distribution Width CV 15.2 % (11.6-14.6); Red Blood Count 3.66 M/mm3 (4.6-6.2); White Blood Count 16.6 K/mm3 (4.4-11.0)
[2019-09-04 13:05] LABS: Differential Indicated SCAN CRITERIA MET
[2019-09-04 13:17] LABS: International Normalized Ratio 1.2; Prothrombin Time (Protime)PT. 15.2 SECONDS (11.7-14.9)
[2019-09-04 13:18] LABS: Partial Thromboplast Time 33.7 Seconds (24.1-36.2)
[2019-09-04 13:38] LABS: Albumin, Serum 2.9 g/dL (3.2-5.0); BUN 44 mg/dL (7-18); BUN/Creat Ratio 7.7 RATIO (10-20); Creatinine, Serum 5.75 mg/dL (0.70-1.30); EST Glomerular Filtration Rate 11 mL/min (>60); Est Glom Filt Rate - Afr Amer 14 mL/min (>60); Estimated Creatinine Clearance 13.22 ml/min; Glucose 252 mg/dL (74-106); Protein, Total 8.3 g/dL (6.4-8.2)
[2019-09-04 13:39] LABS: ALB/GLOB Ratio 0.5 RATIO (0.9-2.4); AST(SGOT) 36 U/L (15-37); Alanine Aminotransfer ALT/SGPT 21 U/L (16-61); Alkaline Phosphatase 217 U/L (45-117); Anion Gap 9 (5-15); Calcium,Total 8.6 mg/dL (8.5-10.1); Chloride 95 mmol/L (98-107); Globulin 5.4 g/dL (2.2-4.2); Lipase 212 U/L (73-393); Potassium 5.3 mmol/L (3.5-5.1); Sodium Level 132 mmol/L (136-145)
[2019-09-04 14:00] VITALS: BP 167/66; PULSE 86; RESP 19; O2SAT 96
[2019-09-04 14:36] LABS: Mucous, Urine 0 SEEN /hpf (<or=2+)
[2019-09-04 14:45] LABS: Color, Urine Yellow (Yellow); Glucose, Dipstick 1000 mg/dl (Normal); Ketone-Dipstick 5 mg/dl (Negative); Leukocyte Esterase-Dipstick 25 /ul (Negative); Nitrite-Dipstick Negative (Negative); Occult Blood-Urine 25 /ul (Negative); Protein-Dipstick 500 mg/dl (Negative); Urine Bilirubin Dipstick Negative (Negative); Urine Clarity Sl. Cloudy (Clear); Urine Urobilinogen Normal (Normal)
[2019-09-04 14:54] LABS: Bacteria 2+ /hpf (None Seen); Red Blood Cells-Urine 0-5 SEEN /hpf (0-5); Renal Epithelial Cells 0-5 SEEN /hpf (0-5); Squamous Epithelial Cells - UA 0-5 SEEN /hpf (0-5); White Blood Cells 5-10 SEEN /hpf (0-5)
--- NOTE | 2019-09-04 16:00 | CM.ED ---
Social Work Consult: Resources/Discharge Planning Informant: Dr. Hadley [facility] reporting that patient home is unkept and deplorable. Met with patient and patient spouse, [place] in room. Introduced self as well as hospital social worker role. Patient agreeable to meet with this hospital social worker. Patient familiar to social work services at [facility] and has had multiple ED and medical admissions this year. Patient active with Palliative Care, home health services through [facility]. [place] confirming that patient is active with Palliative care services. Patient also goes to dialysis weekly. Patient spouse provides needed transportation for patient in the community. Patient has all needed DME in the home. This hospital social worker noting that per the chart review patient spouse was to follow up with [facility] to assist further with housing. [place] stating to have received a form from [facility] earlier this week and needs to complete the form and turn this into [facility]. This hospital social worker encouraging [place] to do this sooner rather then later. [place] stating that there also is an opening in an apartment complex that patient and patient spouse stayed in before and plan to apply there. [place] stating we are working on it. [place] and patient are not concerned with state of home and plan to return there. [place] is concerned about whether or not home health services are active at this time and requesting for this hospital social worker to contact home health services to check status of patient case. Telephone call to Elsi DIAZ. Elsi informing this hospital social worker that patient has been discharged from services due to noncompliance and the home being unkept. Elsi stating that patient was notified of this. Updated [place] on this information. [place] voicing frustration as she was under the impression that home health would be out on Monday. [place] wondering if this hospital social worker would be able to facilitate setting up home health services for patient with another home health agency. [place] provided with a list of home health companies in-network with patient insurance, [place] requesting for this hospital social worker to make a referral to [facility]. Updated Dr. Hadley on above information. Plan is for patient to be discharge to the community. Telephone call to [facility] and in-network provider for patient, spoke with [place]. [place] reporting to be able to review referral. Clinical information faxed. [place] provided with contact information for [facility]. Updated [place] on this information. [place] and patient then discharged to home with home health care to follow up with. PLAN: Discharge to home with home health care, palliative services. Caroline HAMMER, SUDEEP
[2019-09-04 16:34] VITALS: BP 124/67; PULSE 76; RESP 21; O2SAT 96
== END 2019-09-04 16:34 | disposition home or self-care (01) ==
PROVIDERS: Emergency Provider Emergency Medicine; PCP Internal Medicine
DX: N39.0 Urinary tract infection, site not specified (principal); R53.1 Weakness; I13.2 Hypertensive heart and chronic kidney disease with heart failure and with stage 5 chronic kidney disease, or end stage renal disease; E11.22 Type 2 diabetes mellitus with diabetic chronic kidney disease; N18.6 End stage renal disease; L97.509 Non-pressure chronic ulcer of other part of unspecified foot with unspecified severity; I50.9 Heart failure, unspecified; E11.51 Type 2 diabetes mellitus with diabetic peripheral angiopathy without gangrene; Z99.2 Dependence on renal dialysis; E66.9 Obesity, unspecified; Z79.899 Other long term (current) drug therapy
CPT/HCPCS: 70450; 71045; 80053; 81001; 83690; 84484; 85025; 85610; 85730; 93005; 99285; A4216

== ENCOUNTER 2019-09-04 14:20 | Outpatient (RCR) | payer MEDICARE, MEDICAID, SELFPAY ==
[2019-09-01 00:33] VITALS: BP 112/32; PULSE 70; RESP 16; TEMP 37.6
[2019-09-04 12:00] VITALS: BMI 42.2
== END 2019-10-01 23:59 ==
LOC: WC 14:20
PROVIDERS: Family Provider Internal Medicine; PCP Internal Medicine; Visit Provider Podiatrist
DX: Z09 Encounter for follow-up examination after completed treatment for conditions other than malignant neoplasm (principal)

== ENCOUNTER 2019-09-08 17:55 | Inpatient (IN) | payer MEDICARE, MEDICAID, SELFPAY ==
[2019-09-08] VITALS (10 sets, daily range): BP systolic 145–183; BP diastolic 56–72; PULSE 65–69; RESP 12–18; TEMP 36.4–36.8; O2SAT 92–99; BMI 36.5; BMI 38.0
--- NOTE | 2019-09-08 18:55 | ED.RN ---
Attempted IV. Unable. Isma Medic to look as I did not see another viable vein.
[2019-09-08] MEDS: Ondansetron 4 MG/2 ML Vial IV (19:16)
[2019-09-08] MEDS: Morphine 4 MG/ML Syringe IV (19:16)
[2019-09-08 19:27] LABS: Absolute Lymphocyte Count 0.84 X10^3/uL (0.83-4.51); Basophil# 0.03 X10^3/uL; Basophil% 0.3 % (0-1); Eosinophil# 0.21 X10^3/uL; Eosinophils% 2.1 % (0-5); Hematocrit 33.5 % (40-54); Hemoglobin 10.1 g/dL (13.0-16.5); Lymphocyte # 0.84 X10^3/ul (4.0); Lymphocyte % 8.6 % (19-41); Mean Corp Hgb Conc 30.1 g/dL (32-36); Mean Corpuscular Volume 89.6 fL (80-94); Mean Platelet Vol. 10.2 fl (6.2-12.0); Monocyte# 0.66 X10^3/uL; Monocyte% 6.8 % (0-10); NRBC Flagged by Analyzer 0 % (0-5); Neutrophil # 7.97 X10^3/uL (2.7-7.7); Neutrophil % 81.6 % (47-70); Platelet Count 235 K/mm3 (150-450); RBC Distribution Width CV 14.9 % (11.6-14.6); RBC Distribution Width SD 48.6 fl (35.1-43.9); Red Blood Count 3.74 M/mm3 (4.6-6.2); White Blood Count 9.8 K/mm3 (4.4-11.0)
[2019-09-08 19:32] LABS: Erythrocyte Sedimentation Rate > 130 mm/hr (0-20)
--- NOTE | 2019-09-08 19:39 | RAD_ITS ---
STUDY: X-RAY - LEFT FOOT CLINICAL: Male, 49 years old. OSTEOMYELITIS, NON HEALING WOUND LATERAL FOOT TECHNIQUE: 3 view(s) of the foot. COMPARISON: None. FINDINGS: There is a lucency in the calcaneus. Remainder of the bones are intact and located. Soft tissues are unremarkable. RAD/Foot min 3 Views IMPRESSION: Focal calcaneal lucency along the inferior surface, possible osteomyelitis. Electronically Signed: Wilian Rose, at 20:06 EDT Tel , Service support ,
--- NOTE | 2019-09-08 19:40 | ED.RN ---
Called lab to come draw blood, was unable to get blood drawn.
[2019-09-08 19:44] LABS: International Normalized Ratio 1.1; Prothrombin Time (Protime)PT. 14.4 SECONDS (11.7-14.9)
[2019-09-08 19:49] LABS: ALB/GLOB Ratio 0.6 RATIO (0.9-2.4); AST(SGOT) 23 U/L (15-37); Alanine Aminotransfer ALT/SGPT 24 U/L (16-61); Albumin, Serum 2.9 g/dL (3.2-5.0); Alkaline Phosphatase 186 U/L (45-117); Anion Gap 7 (5-15); BUN 45 mg/dL (7-18); BUN/Creat Ratio 8.3 RATIO (10-20); Calcium,Total 8.3 mg/dL (8.5-10.1); Chloride 96 mmol/L (98-107); Creatinine, Serum 5.44 mg/dL (0.70-1.30); EST Glomerular Filtration Rate 12 mL/min (>60); Est Glom Filt Rate - Afr Amer 14 mL/min (>60); Estimated Creatinine Clearance 15.02 ml/min; Globulin 4.8 g/dL (2.2-4.2); Glucose 416 mg/dL (74-106); Potassium 4.5 mmol/L (3.5-5.1); Protein, Total 7.7 g/dL (6.4-8.2); Sodium Level 132 mmol/L (136-145)
[2019-09-08 19:53] LABS: Lactic Acid 0.8 mmol/L (0.4-1.9)
--- NOTE | 2019-09-08 21:09 | PCM.HP.STD ---
Problem List (1) Diabetic foot ulcer Status: Acute (2) Diabetic foot infection Status: Acute (3) Noncompliance Status: Chronic (4) CHF (congestive heart failure) Status: Chronic Qualifiers: Heart failure type: diastolic Heart failure chronicity: chronic Qualified Code(s): I50.32 - Chronic diastolic (congestive) heart failure (5) Pulmonary hypertension Status: Chronic (6) End stage renal disease on dialysis Status: Chronic (7) Peripheral vascular disease Status: Chronic (8) Toe fracture, right Status: Chronic Qualifiers: Toe: lesser toe Fracture type: closed Phalanx: proximal Fracture alignment: nondisplaced (9) Ulcer of right foot with fat layer exposed Status: Chronic (10) Chronic ulcer of left foot with fat layer exposed Status: Chronic (11) Type 2 diabetes mellitus with diabetic polyneuropathy Status: Chronic Qualifiers: (12) Chronic ulcer of left foot with fat layer exposed Status: Chronic (13) Chronic respiratory failure with hypoxia Status: Chronic (14) HTN (hypertension) Status: Chronic Qualifiers: Hypertension type: essential hypertension Qualified Code(s): I10 - Essential (primary) hypertension (15) Hyperlipidemia Status: Chronic Qualifiers: Hyperlipidemia type: unspecified Qualified Code(s): E78.5 - Hyperlipidemia, unspecified (16) Diabetic neuropathy Status: Chronic Qualifiers: Diabetes mellitus type: type 2 (17) Anemia Status: Chronic Qualifiers: Anemia type: unspecified type Qualified Code(s): D64.9 - Anemia, unspecified (18) SELMA (obstructive sleep apnea) Status: Chronic History of Present Illness Date of Admission: 09/08/19 Chief Complaint: increased drainage of left foot wound The patient is a 49 year old M with a significant history of end-stage renal disease on dialysis (Monday, and Monday); hypertension; obstructive sleep apnea; type 2 diabetes with nephropathy and neuropathy; and heart failure with preserved ejection fraction who presented to emergency department with increased drainage of left foot wound. Per family visting nurse noticed that there is increased pussy drainage of left foot diabetic wound. Also the drainage from the left foot wound had a foul order. Further patient reports pain in his left foot. Also he has subjective fever; chills and loss of appetite. ED doctor department discussed the case with Dr. Bj Rocha; life enrichment assistant who came to see the patient at the emergency department. Past Medical History Past Medical History (Chronic Problems): Chronic Problems (Last Reviewed 09/08/19 @ 23:[address] Eze Rivera MD) Noncompliance (Chronic) CHF (congestive heart failure) (Chronic) Pulmonary hypertension (Chronic) End stage renal disease on dialysis (Chronic) Peripheral vascular disease (Chronic) Toe fracture, right (Chronic) Ulcer of right foot with fat layer exposed (Chronic) Chronic ulcer of left foot with fat layer exposed (Chronic) Type 2 diabetes mellitus with diabetic polyneuropathy (Chronic) Chronic ulcer of left foot with fat layer exposed (Chronic) Chronic respiratory failure with hypoxia (Chronic) HTN (hypertension) (Chronic) Hyperlipidemia (Chronic) Diabetic neuropathy (Chronic) Anemia (Chronic) SELMA (obstructive sleep apnea) (Chronic) Medical History: Medical History (Last Reviewed 09/08/19 @ 23:[address] Eze Rivera MD) Chronic respiratory failure with hypoxia (Chronic) J96.11 HTN (hypertension) (Chronic) I10 Hyperlipidemia (Chronic) E78.5 Diabetic neuropathy (Chronic) E11.40 Anemia (Chronic) D64.9 SELMA (obstructive sleep apnea) (Chronic) G47.33 ESRD (end stage renal disease) on dialysis N18.6, Z99.2 cataract surgery, l eye Morbid obesity E66.01 Type 2 diabetes mellitus with other diabetic kidney complication E11.29 dx : age 16 last exacerbation : dka : never hypoglycemic episode : 2012 er visit : 2013 Allergies venom-honey bee [bee venom (honey bee)] Allergy (Verified 09/08/19 17:56) Swelling sulfamethoxazole [From Bactrim] Adverse Reaction (Verified 09/08/19 17:56) Upset Stomach trimethoprim [From Bactrim] Adverse Reaction (Verified 09/08/19 17:56) Upset Stomach Home Medications: Ambulatory Orders Medication Instructions Recorded Atorvastatin Calcium [Lipitor] 20 mg PO QHS 10/11/17 Vits A,C,E/Lutein/Minerals 1 ea PO DAILY 10/11/17 [Ocuvite with Lutein Tablet] Folic Acid/Vitamin B Comp W-C 1 cap PO DAILY 10/27/17 [Nephrocaps, Renaphro] albuterol sulfate 90 mcg/actuation 2 puff INHALATION Q4H PRN #18 g 02/26/18 aerosol inhaler Aspirin E.C. [Ecotrin] 81 mg PO DAILY 03/23/18 Cyclobenzaprine HCl 10 mg PO TID PRN PRN 03/23/18 Fluticasone 0.05% [Flonase Nasal 1 spray NASAL DAILY 03/23/18 [place]] isosorbide mononitrate 30 mg 30 mg PO DAILY #30 tab 07/24/18 tablet,extended release 24 hr Metoprolol Tartrate [Lopressor 50 mg PO BID 03/12/19 (beta khoa)] Omeprazole 40 mg PO DAILY 03/12/19 proMETHazine tablet [Phenergan 25 mg PO TID PRN 03/13/19 tablet] Sevelamer HCl [Renagel] 2,400 mg PO TID #0 03/20/19 traZODone [Desyrel] 50 mg PO QHS 07/06/19 Amlodipine [Norvasc] 10 mg PO DAILY #30 tab 07/12/19 Collagenase [Santyl] 1 applic TOPICAL DAILY tube 07/24/19 Sertraline HCl [Zoloft] 25 mg PO DAILY 08/05/19 Acetaminophen [Tylenol Tablet] 650 mg PO Q6H PRN PRN tab 08/08/19 Insulin Lispro [Humalog KwikPen] 15 unit SUBCUT 0800,1200,1700 08/08/19 insuln.pen Furosemide [Lasix] 80 mg PO BIDLX #60 tab 08/10/19 Insulin Lispro [Humalog KwikPen] See Protocol SUBCUT ACHS 08/10/19 Ipratropium/Albuterol Sulfate 3 ml INHALATION Q6H #120 ampul.neb 08/14/19 [Duoneb] Cephalexin [Keflex] 500 mg PO Q6 #28 cap 09/04/19 Oxycodone [Oxyir] 5 mg PO Q6H PRN PRN 09/04/19 Methadone HCl 2.5 mg PO BID 09/08/19 Surgical History: Surgical History (Last Reviewed 09/08/19 @ 23:[address] Eze Rivera MD) S/P tonsillectomy Z90.89 dialysis fistula Rt Arm Surgical History: tonsillectomy, - Psychiatric History: No pertinent psych hx Lives: Spouse/ Significant Other Smoking Status: Never smoker - *Family History Maternal Family History: Family History (Last Reviewed 09/08/19 @ 23:[address] Eze Rivera MD) Mother Hypertension Heart disease Diabetes Father Hypertension Heart disease Brother Heart disease History Items: Diabetes, Heart Disease, Hypertension, Renal Disease Paternal Family History: Family History (Last Reviewed 09/08/19 @ 23:[address] Eze Rivera MD) Mother Hypertension Heart disease Diabetes Father Hypertension Heart disease Brother Heart disease History Items: Cancer - liver, Diabetes, Heart Disease Review of Systems Constitutional: Reports: Anorexia, Chills, Fever - Subjective HEENT: Denies: Head Aches, Sinus Congestion, Sinus Drainage Cardiovascular: Denies: Chest Pain, Palpitations Respiratory: Denies: Cough, Shortness of breath at rest, Sputum production Gastrointestinal: Denies: Abdominal Pain, Nausea, Vomiting Genitourinary: Denies: Dysuria Musculoskeletal: Reports: Foot Pain Skin: Reports: Wounds - Fifth metatarsal of right foot; and fifth metatarsal of left foot Neurological: Denies: Numbness, Tingling, Focal weakness Psychiatric: Denies: Anxiety, Depression, Homicidal Ideations, Suicidal Ideations Hematologic/ Lymphatic: Denies: Easy Bruising, Easy Bleeding VTE Information - Inpt Only VTE Present on Admission: No VTE Mechan Device Prophylaxis: None VTE Pharm Prophylaxis ordered?: Yes Patient Problems: Active and Suspected Problems (Last Reviewed 09/08/19 @ 23:[address] Eze Rivera MD) Diabetic foot ulcer (Acute) Diabetic foot infection (Acute) - Physical Exam Vitals/I&O's: Vital Signs Temp Pulse Resp BP Pulse Ox 97.7 F L 66 12 146/56 H 95 09/08/19 20:14 09/08/19 20:13 09/08/19 20:13 09/08/19 20:13 09/08/19 20:13 Oxygen Flow Rate (L/min) 3 Oxygen Delivery Method Room Air Weight: 105.687 kg Body Mass Index (BMI) 36.5 Finger Stick Blood Glucose 410 Intake and Output for Last 24 Hours 09/06/19 09/07/19 09/09/19 23:59 23:59 00:59 Intake Total 100 / 100 Balance 100 / 100 General: Alert, Oriented x3, Cooperative HEENT: Atraumatic, PERRLA, EOMI, Normocephalic Neck: Supple, No JVD, Negative Carotid Bruits Lungs: Clear to auscultation, Normal air movement Cardiovascular: Regular rate, Regular Rhythm, Normal S1, Normal S2, No murmurs Abdomen: Bowel Sounds Present, Soft, Non Tender Extremities: No edema, Capillary Refill Less than 3 Seconds Skin: Ulcer/ Wound - Necrotic area of the fifth metatarsal of left foot; wound at metatarsal of right foot., - Musculoskeletal: Tenderness - Left foot Neurological: Cranial nerves II-XII grossly intact Psych/Mental Status: Depressed Laboratory Results 09/08/19 19:10: WBC 9.8, RBC 3.74 L, Hgb 10.1 L, Hct 33.5 L, MCV 89.6, MCH 27.0, MCHC 30.1 L, RDW Std Deviation 48.6 H, RDW Coeff of Roberto 14.9 H, Plt Count 235, MPV 10.2, Immature Gran % (Auto) 0.600, Neut % (Auto) 81.6 H, Lymph % (Auto) 8.6 L, [place] % (Auto) 6.8, Eos % (Auto) 2.1, Baso % (Auto) 0.3, Absolute Neuts (auto) 8.0 H, Absolute Lymphs (auto) 0.84, Nucleated RBC % 0, ESR > 130 H 09/08/19 19:10: PT 14.4, INR 1.1, APTT 32.0 09/08/19 19:10: Sodium 132 L, Potassium 4.5, Chloride 96 L, Carbon Dioxide 29.0, Anion Gap 7, BUN 45 H, Creatinine 5.44 H, Estim Creat Clear Calc 15.02, Est GFR (MDRD) Af Amer 14 L, Est GFR (MDRD) Non-Af 12 L, BUN/Creatinine Ratio 8.3 L, Glucose 416 H, Calcium 8.3 L, Total Bilirubin 0.80, AST 23, ALT 24, Alkaline Phosphatase 186 H, C-React Prot Ext Range 55.80 H, Total Protein 7.7, Albumin 2.9 L, Globulin 4.8 H, Albumin/Globulin Ratio 0.6 L 09/08/19 19:10: Lactic Acid 0.8 09/08/19 19:45: S.aureus Protein A PCR Pending, MRSA (PCR) Pending Assessment/Plan All Active Problems (Last Reviewed 09/08/19 @ 23:[address] Eze Rivera MD) Diabetic foot ulcer (Acute) Diabetic foot infection (Acute) The patient is a 49 year old M with a significant history of end-stage renal disease on dialysis (Monday, and Monday) hypertension; obstructive sleep apnea; type 2 diabetes with nephropathy; heart failure with preserved ejection fraction who presented to emergency department with increased drainage of left foot wound; increased pus drainage of left foot diabetic wound; elevated ESR and CRP consistent with diabetic foot ulcer infection and probable osteomyelitis.. Diabetic foot ulcer infection of the left fifth metatarsal area Rule out osteomyelitis. Elevated ESR and CRP. Impression of left foot x-ray by radiologist: Focal calcaneal lucency along the inferior surface; possible osteomyelitis. However' gross examination of leg does not show wound extension to the calcaneus. Discussed with Dr. Bj Rocha, life enrichment assistant who saw patient at the ED. Dr. Shipley, life enrichment assistant will see patient in a.m. Okay with Dr. Bj Rocha that patient be continued on vancomycin and Zosyn; MRI of foot; and patient be kept n.p.o. until Dr. Shipley sees patient in a.m.. And okay to consult infectious disease. Infectious disease will be consulted. MRI ordered. Trend CBC and BMP. Continue home methadone and oxycodone. Tylenol for fever and for pain. Patient received vancomycin and Zosyn at the emergency department. Ulcer of right fifth metatarsal area Debridement by Dr. Bj Rocha at the emergency department. End-stage renal disease on dialysis (Monday; and Monday) Likely from diabetes and hypertension. 2 g potassium diet; low phosphate and calorie restriction of 1800. Nephrocaps continued. Sevelamer continued. [employer] Developer consult Diabetes mellitus with nephropathy and neuropathy. On presentation patient had hyperglycemia. Per 's stated that the last time patient took his insulin was a day before presentation. Hold prandial insulin since patient will be kept n.p.o. Accu-Chek every 4 hours with correction scale insulin. Basal insulin x1. When patient is no longer n.p.o. consider further insulin adjustments. Hypertension: On presentation blood pressure was not within goal. Amlodipine and metoprolol continued.. Hydralazine added. Imdur continued. Trend blood pressure and adjust blood pressure medications. Chronic respiratory failure with hypoxia PRN DuoNeb continued. Oxygen PRN. Chronic diastolic heart failure Lasix continued. Obstructive sleep apnea: BiPAP continued Obesity: BMI 36.5. Complicates care. Recommend lifestyle modification. Chronic pain: Methadone and oxycodone as above. Depression/insomnia: Trazodone continued. GERD: Protonix continued. DVT Prophylaxis: Subcutaneous heparin. Hold heparin in a.m. and afternoon of next day for probable surgery. Inpatient E&M: 31421 In Hosp L3
[2019-09-08 21:37] LABS: M R Staph aureus DNA By PCR POSITIVE (Negative); Staph aureus DNA By PCR POSITIVE (Negative)
[2019-09-08 21:38] LABS: Probe Check PASS
--- NOTE | 2019-09-08 21:40 | ED.RN ---
POSITIVE MRSA WOUND CULTER PER CALL FROM LAB. AND PRIMARY RN NOTIFIED.
--- NOTE | 2019-09-08 21:51 | PCM.CONS.GEN ---
Problem List (1) Chronic ulcer of left foot with fat layer exposed Status: Chronic (2) Ulcer of right foot with fat layer exposed Status: Chronic (3) End stage renal disease on dialysis Status: Chronic (4) Peripheral vascular disease Status: Chronic (5) Type 2 diabetes mellitus with diabetic polyneuropathy Status: Chronic Qualifiers: (6) Malnutrition Status: Suspected Reason for Consult Date of Consultation: 09/08/19 Reason for Consultation: Worsening left foot ulcer History of Present Illness: The patient is a 49 year old diabetic male patient with multiple other comorbidities that presented to the emergency room this evening with his stating that their home health nurse had urged them to come to the ER due to worsening of the patient's left foot ulcer and area of fifth metatarsal head. They state that they have noticed a slight odor to the area. They relate they have been following with Dr. Bravo at the wound healing center but relate that they missed their appointment last week. They state that since they were at the wound healing center 2 weeks ago the area has slowly been worsening. They have just been applying Aquasol AG dressing each day. Patient states that the offloading surgical shoes he was instructed to wear do not work and that he is instead been wearing sandals that he feels offload the areas better. Patient currently relates no feelings of fever, vomiting, chills. He does relate to some slight nausea. Past Medical History Past Medical History (Chronic Problems): Chronic Problems (Last Reviewed 08/12/19 @ 05:[address] Eze Rivera MD) Noncompliance (Chronic) Pulmonary hypertension (Chronic) Morbid obesity with BMI of 40.0-44.9, adult (Chronic) End stage renal disease on dialysis (Chronic) Peripheral vascular disease (Chronic) Toe fracture, right (Chronic) Ulcer of right foot with fat layer exposed (Chronic) Chronic ulcer of left foot with fat layer exposed (Chronic) Type 2 diabetes mellitus with diabetic polyneuropathy (Chronic) Chronic ulcer of left foot with fat layer exposed (Chronic) Chronic respiratory failure with hypoxia (Chronic) HTN (hypertension) (Chronic) Hyperlipidemia (Chronic) Diabetic neuropathy (Chronic) Anemia (Chronic) SELMA (obstructive sleep apnea) (Chronic) Medical History: Medical History (Last Reviewed 08/12/19 @ 05:[address] Eze Rivera MD) Chronic respiratory failure with hypoxia (Chronic) J96.11 HTN (hypertension) (Chronic) I10 Hyperlipidemia (Chronic) E78.5 Diabetic neuropathy (Chronic) E11.40 Anemia (Chronic) D64.9 SELMA (obstructive sleep apnea) (Chronic) G47.33 ESRD (end stage renal disease) on dialysis N18.6, Z99.2 cataract surgery, l eye Morbid obesity E66.01 Type 2 diabetes mellitus with other diabetic kidney complication E11.29 dx : age 16 last exacerbation : dka : never hypoglycemic episode : 2012 er visit : 2013 Allergies venom-honey bee [bee venom (honey bee)] Allergy (Verified 09/08/19 17:56) Swelling sulfamethoxazole [From Bactrim] Adverse Reaction (Verified 09/08/19 17:56) Upset Stomach trimethoprim [From Bactrim] Adverse Reaction (Verified 09/08/19 17:56) Upset Stomach Home Medications: Ambulatory Orders Medication Instructions Recorded Atorvastatin Calcium [Lipitor] 20 mg PO QHS 10/11/17 Vits A,C,E/Lutein/Minerals 1 ea PO DAILY 10/11/17 [Ocuvite with Lutein Tablet] Folic Acid/Vitamin B Comp W-C 1 cap PO DAILY 10/27/17 [Nephrocaps, Renaphro] albuterol sulfate 90 mcg/actuation 2 puff INHALATION Q4H PRN #18 g 02/26/18 aerosol inhaler Aspirin E.C. [Ecotrin] 81 mg PO DAILY 03/23/18 Cyclobenzaprine HCl 10 mg PO TID PRN PRN 03/23/18 Fluticasone 0.05% [Flonase Nasal 1 spray NASAL DAILY 03/23/18 [place]] isosorbide mononitrate 30 mg 30 mg PO DAILY #30 tab 07/24/18 tablet,extended release 24 hr Metoprolol Tartrate [Lopressor 50 mg PO BID 03/12/19 (beta khoa)] Omeprazole 40 mg PO DAILY 03/12/19 proMETHazine tablet [Phenergan 25 mg PO TID PRN 03/13/19 tablet] Sevelamer HCl [Renagel] 2,400 mg PO TID #0 03/20/19 traZODone [Desyrel] 50 mg PO QHS 07/06/19 Amlodipine [Norvasc] 10 mg PO DAILY #30 tab 07/12/19 Collagenase [Santyl] 1 applic TOPICAL DAILY tube 07/24/19 Sertraline HCl [Zoloft] 25 mg PO DAILY 08/05/19 Acetaminophen [Tylenol Tablet] 650 mg PO Q6H PRN PRN tab 08/08/19 Insulin Lispro [Humalog KwikPen] 15 unit SUBCUT 0800,1200,1700 08/08/19 insuln.pen Furosemide [Lasix] 80 mg PO BIDLX #60 tab 08/10/19 Insulin Lispro [Humalog KwikPen] See Protocol SUBCUT ACHS 08/10/19 Ipratropium/Albuterol Sulfate 3 ml INHALATION Q6H #120 ampul.neb 08/14/19 [Duoneb] Cephalexin [Keflex] 500 mg PO Q6 #28 cap 09/04/19 Oxycodone [Oxyir] 5 mg PO Q6H PRN PRN 09/04/19 Methadone HCl 2.5 mg PO BID 09/08/19 Surgical History: Surgical History (Last Reviewed 08/12/19 @ 05:[address] Eze Rivera MD) S/P tonsillectomy Z90.89 dialysis fistula Rt Arm Surgical History: tonsillectomy, - Psychiatric History: No pertinent psych hx Smoking Status: Never smoker - *Family History Maternal Family History: Family History (Last Reviewed 08/12/19 @ 05:[address] Eze Rivera MD) Mother Hypertension Heart disease Diabetes Father Hypertension Heart disease Brother Heart disease History Items: Diabetes, Heart Disease, Hypertension, Renal Disease Paternal Family History: Family History (Last Reviewed 08/12/19 @ 05:[address] Eze Rivera MD) Mother Hypertension Heart disease Diabetes Father Hypertension Heart disease Brother Heart disease History Items: Cancer - liver, Diabetes, Heart Disease Review of Systems Constitutional: Denies: Chills, Fever Cardiovascular: Denies: Chest Pain, Palpitations Respiratory: Denies: Shortness of breath at rest, Sputum production Gastrointestinal: Denies: Abdominal Pain, Vomiting Skin: Reports: - - Ulcer toe left foot as well as slight ulcer/skin breakdown to the right lateral foot Neurological: Reports: - - Peripheral neuropathy - Physical Exam Vitals/I&O's: Vital Signs Temp Pulse Resp BP Pulse Ox 97.7 F L 66 16 173/71 H 98 09/08/19 21:39 09/08/19 21:39 09/08/19 21:39 09/08/19 21:39 09/08/19 21:39 Oxygen Flow Rate (L/min) 3 Oxygen Delivery Method Nasal Cannula Weight: 105.687 kg Body Mass Index (BMI) 36.5 Finger Stick Blood Glucose 410 Intake and Output for Last 24 Hours 09/06/19 09/07/19 09/09/19 23:59 23:59 00:59 Intake Total 100 / 100 Balance 100 / 100 General: Alert, Oriented x3, Cooperative Extremities: No cyanosis, Capillary Refill Less than 3 Seconds - To all distal digits of the left foot as well as all remaining distal digits of the right foot., No Calf Tenderness, Diminished Peripheral Pulses, Edema Skin: Ulcer/ Wound - Ulcer to the left foot sub-fifth MPJ with a devitalized moist eschar noted with a very minor area of bogginess. Very scant amount of granular tissue noted. Fibrous tissue also noted. Very minor surrounding erythema to the area. There is no streaking cellulitis. Slight malodor appreciated. There is some slight depth appreciated to the most plantar aspect through some fibrous tissue, but there was no easy probing to bone noted. No purulence able to be expressed. The right foot also had some dried overlying tissue to the lateral foot. Upon removal of this tissue, there is a very minor skin breakdown to the lateral foot, but no significant ulcer in this area and no signs of surrounding infection at this time. The skin to bilateral lower extremities is thin, hairless, and atrophic. Musculoskeletal: - - Previous right fifth ray resection. Contracted lesser digits to the left foot with prominent fifth metatarsal head. Neurological: - - Epicritic sensation grossly absent to bilateral lower extremities consistent with patient's diabetic neuropathy status Psych/Mental Status: Normal Affect, Appropriate Laboratory Results 09/08/19 19:10: WBC 9.8, RBC 3.74 L, Hgb 10.1 L, Hct 33.5 L, MCV 89.6, MCH 27.0, MCHC 30.1 L, RDW Std Deviation 48.6 H, RDW Coeff of Roberto 14.9 H, Plt Count 235, MPV 10.2, Immature Gran % (Auto) 0.600, Neut % (Auto) 81.6 H, Lymph % (Auto) 8.6 L, [place] % (Auto) 6.8, Eos % (Auto) 2.1, Baso % (Auto) 0.3, Absolute Neuts (auto) 8.0 H, Absolute Lymphs (auto) 0.84, Nucleated RBC % 0, ESR > 130 H 09/08/19 19:10: PT 14.4, INR 1.1, APTT 32.0 09/08/19 19:10: Sodium 132 L, Potassium 4.5, Chloride 96 L, Carbon Dioxide 29.0, Anion Gap 7, BUN 45 H, Creatinine 5.44 H, Estim Creat Clear Calc 15.02, Est GFR (MDRD) Af Amer 14 L, Est GFR (MDRD) Non-Af 12 L, BUN/Creatinine Ratio 8.3 L, Glucose 416 H, Calcium 8.3 L, Total Bilirubin 0.80, AST 23, ALT 24, Alkaline Phosphatase 186 H, C-React Prot Ext Range 55.80 H, Total Protein 7.7, Albumin 2.9 L, Globulin 4.8 H, Albumin/Globulin Ratio 0.6 L 09/08/19 19:10: Lactic Acid 0.8 09/08/19 19:45: S.aureus Protein A PCR POSITIVE H, MRSA (PCR) POSITIVE H Assessment/Plan All Active Problems (Last Reviewed 08/12/19 @ 05:[address] Eze Rivera MD) CHF (congestive heart failure) (Acute) Ulcer left foot with overlying eschar Ulcer right foot PVD ESRD DM with neuropathy Other comorbidities This patient was carefully examined and evaluated in the emergency room this evening after being consulted for left foot ulcer. Patient's WBC is 9.8. Patient's ESR is greater than 130, and his CRP is 55.8. Patient currently afebrile. Left foot x-rays taken and there is no evidence of soft tissue emphysema or foreign body in area of ulcer site to the left foot around fifth metatarsal head. There is evidence of calcified vessels. An MRI will be ordered for further evaluation. Due to patient's prior history of PVD and vascular intervention by Dr. Tuttle on the right side, new LEAS studies were ordered and will continue to monitor for results from these examinations. Cultures were also taken of the ulcer in the emergency room. Patient currently on IV antibiotics. Recommend infectious disease consult. Ulcer to the left foot measures approximately 3.5 cm x 4 cm with overlying eschar and fibrotic tissue. There is also a very small opening to the right lateral foot proximally 0.2 cm x 0.2 cm that is superficial. Each of these areas was dressed with Aquacel Ag to the base, followed by 4 x 4's, and Kerlix. Patient is to keep these areas offloaded at all times and is to have his feet floated over the edge of pillows to offload these areas while in bed. Patient is to be nonweightbearing to the left forefoot and if he has to travel or transfer short distances she is to do this with the assistance of heel weightbearing to the left foot. The patient will be made n.p.o. after midnight in case any surgical intervention is warranted following MRI results in the morning. Continued medical management and DVT prophylaxis appreciated per primary team. Podiatry will continue to follow this patient closely while in house.
--- NOTE | 2019-09-08 22:17 | ED.DCSUM_ITS ---
- ER Visit Summary Date of Service: 09/08/19 Chief Complaint: Left foot ulcer History of Present Illness: The patient is a [address] Washburn and Dr. Bravo. He reports that he has had an ulcer on his left foot that they have been caring for since May. He reports that it is worsened over the past 4 days. Over the past 2 days he has had drainage and a foul odor. Patient reports that he has a rubbing pain that is 10 of 10 at worst 9-10 currently. Is worsened by walking relieved by rest. On review of systems he complains objective fever and chills. He said nausea with dry heaves. Physical Examination: Vitals: Stable. Afebrile. General: Well-nourished and well-developed. Head: Normocephalic atraumatic. Neck: Supple, no lymphadenopathy. No JVD. Nontender. Cardiovascular: Regular rate and rhythm. No murmurs. Respiratory: No respiratory distress. Clear to auscultation bilaterally. Abdominal: Soft, nontender, nondistended, normal bowel sounds. No guarding, rebound, or peritoneal signs. Back: Nontender. Extremities: On the bottom of his left foot over the distal fifth metatarsal laterally there is an approximate $0.50 piece area of necrotic tissue with a foul-smelling purulent drainage. There is minimal surrounding erythema. On the lateral portion of his right fifth metatarsal there is a healing incision with a small superficial ulcer. There is no erythema, induration, or drainage from this wound. Skin: Normal color, no rash. Neurologic: Alert and oriented ?3. Cranial nerves II through XII are intact. Normal strength and sensation. Psych: Normal affect. Test Results: CRP is 55.8. Sed rate is greater than 130. Lactate is 0.8. CBC shows an H&H 10.1 33.5, segmented 52, lymphocytes of 9. Chem-7 shows a sodium 132, chloride 96, BUN of 45, creatinine of 5.44, calcium 8.3. LFTs show an alk phos of 186. Left foot x-ray shows notes of osteo-in my opinion. Radiologist talked about possibility of osteo-and over his calcaneus. This is nowhere near his wound. Emergency Department Course and Treatment: Patient was given Zosyn and vancomycin IV. Is given morphine and Zofran IV. He is resting comfortably. Treatment Plan: Patient was discussed with Dr. Rocha and Dr. Rivera. He will be admitted to the hospital for further evaluation and treatment. Disposition: Admitted in improved condition. Impression: 1. Diabetic foot ulcer on left. 2. End-stage renal disease. This note was generated with [employer] dictation software. It may contain incorrect words, spelling, and punctuation that were not noted in review of the chart prior to signing ED Disposition - Plan for ED Patient: Disposition: Acute Care Hospital [facility]
[2019-09-08] MEDS: traZODone 50 MG Tablet PO (23:14)
[2019-09-08] MEDS: Insulin Lispro 100 UNIT/ML INSULN.PEN SC (23:14)
[2019-09-08] MEDS: Heparin Injection (Vial) 5,000 UNIT/ML VIAL 5000 UNIT SC (23:14)
[2019-09-08] MEDS: SEVELAMER CARBONATE 800 MG TABLET 2400 MG PO (23:15)
[2019-09-08] MEDS: Atorvastatin Calcium 20 MG Tablet PO (23:16)
[2019-09-08] MEDS: oxyCODONE 5 MG Tablet PO (23:16)
[2019-09-08] MEDS: Metoprolol Tartrate 50 MG Tablet PO (23:16)
[2019-09-08 23:26] LABS: Bedside Glucose 341 mg/dL (70-110)
--- NOTE | 2019-09-08 23:45 | PCM.RX.CS ---
Consult Pharmacy has been consulted to manage selected antiobiotic: Vancomycin Type of Consult: New start Suspected Infection: Skin/Soft tissue Prior Doses of Antibiotics Received/Current Regimen: Medications Discontinued Medications Vancomycin HCl 1,500 mg/ (Sodium Chloride) 530 mls @ 250 mls/hr IV X1 ONE Stop: 09/08/19 20:37 Last Admin: 09/08/19 21:36 Dose: 250 mls/hr Labs: Sodium 132 mmol/L (136-145) L 09/08/19 19:10 Potassium 4.5 mmol/L (3.5-5.1) 09/08/19 19:10 Chloride 96 mmol/L (98-107) L 09/08/19 19:10 Carbon Dioxide 29.0 mmol/L (21.0-32.0) 09/08/19 19:10 Anion Gap 7 (5-15) 09/08/19 19:10 BUN 45 mg/dL (7-18) H 09/08/19 19:10 Creatinine 5.44 mg/dL (0.70-1.30) H 09/08/19 19:10 Est GFR (MDRD) Af Amer 14 mL/min (>60) L 09/08/19 19:10 Est GFR (MDRD) Non-Af 12 mL/min (>60) L 09/08/19 19:10 BUN/Creatinine Ratio 8.3 RATIO (10-20) L 09/08/19 19:10 Glucose 416 mg/dL (74-106) H 09/08/19 19:10 Weight used for dosin.1 kg Estimated Creatinine Clearance: 15.02 Goal Trough: 15-20 mcg/mL Pharmacy Plan for Drug Dosing: Initial vancomycin dose was given in ED 09/08/19 @2136. Next dose of 750mg will be scheduled after next dialysis - potentially 09/10/19. Pharmacy will verify timing of dialysis. Subsequent doses will be determined by pre-dialysis vanco levels. Pharmacy Service will continue to monitor and adjust dosing as required.
[2019-09-09] VITALS (19 sets, daily range): BP systolic 109–174; BP diastolic 59–80; PULSE 56–80; RESP 12–18; TEMP 36.4–37.2; O2SAT 94–100; BMI 38.0
[2019-09-09] MEDS: Insulin Lispro 100 UNIT/ML INSULN.PEN SC ×5 (02:05→22:29)
[2019-09-09] MEDS: hydrALAZINE 20 MG/ML Vial 5 MG IV ×2 (02:16→22:24)
[2019-09-09 04:16] LABS: Bedside Glucose 273 mg/dL (70-110)
[2019-09-09 05:33] LABS: Absolute Lymphocyte Count 0.81 X10^3/uL (0.83-4.51); Basophil# 0.06 X10^3/uL; Basophil% 0.9 % (0-1); Eosinophils% 4.3 % (0-5); Hematocrit 31.4 % (40-54); Hemoglobin 9.7 g/dL (13.0-16.5); Lymphocyte # 0.81 X10^3/ul (4.0); Lymphocyte % 11.7 % (19-41); Mean Corp Hgb Conc 30.9 g/dL (32-36); Mean Corpuscular Hgb 27.7 pg (27.0-32.0); Mean Corpuscular Volume 89.7 fL (80-94); Mean Platelet Vol. 9.4 fl (6.2-12.0); Monocyte# 0.66 X10^3/uL; Monocyte% 9.6 % (0-10); NRBC Flagged by Analyzer 0 % (0-5); Neutrophil # 5.01 X10^3/uL (2.7-7.7); Neutrophil % 72.5 % (47-70); Platelet Count 223 K/mm3 (150-450); RBC Distribution Width CV 14.8 % (11.6-14.6); RBC Distribution Width SD 48.4 fl (35.1-43.9); White Blood Count 6.9 K/mm3 (4.4-11.0)
[2019-09-09 05:50] LABS: Bedside Glucose 246 mg/dL (70-110)
[2019-09-09 05:58] LABS: Anion Gap 10 (5-15); BUN 52 mg/dL (7-18); BUN/Creat Ratio 8.6 RATIO (10-20); Calcium,Total 8.2 mg/dL (8.5-10.1); Chloride 95 mmol/L (98-107); Creatinine, Serum 6.06 mg/dL (0.70-1.30); EST Glomerular Filtration Rate 11 mL/min (>60); Est Glom Filt Rate - Afr Amer 13 mL/min (>60); Estimated Creatinine Clearance 13.48 ml/min; Glucose 257 mg/dL (74-106); Potassium 4.1 mmol/L (3.5-5.1); Sodium Level 134 mmol/L (136-145)
[2019-09-09] MEDS: 0.9% Saline Lock 10 ML Syringe IV (08:42)
--- NOTE | 2019-09-09 09:00 | MRI_ITS ---
STUDY: MRI LEFT MIDFOOT REASON FOR EXAM: Male, 49 years old. osteomyelitis left foot, wound lateral foot, area of 5th MT head TECHNIQUE: Standardized fat and water weighted pulse sequences were obtained in all 3 orthogonal planes. COMPARISON: X-ray 09/08/2019 FINDINGS: Normal talonavicular articulation. Normal calcaneocuboid articulation. Normal navicular-cuneiform articulations. Normal intercuneiform articulations. Normal first tarsometatarsal articulation. Normal Lisfranc ligament. Normal second and third tarsometatarsal articulations. Normal cuboid fourth and cuboid fifth tarsometatarsal articulation. Cellulitis with small ulcer plantar to the fifth metatarsophalangeal joint. There is marrow edema of the head of the fifth metatarsal bone extending from the plantar aspect consistent with cortical osteitis. There are subtle cortical disruption of the plantar aspect of the head of the fifth metatarsal bone consistent with mild or early osteomyelitis. No loculated fluid collection to suggest abscess. Normal tibialis anterior tendon. Normal extensor hallucis longus tendon. Normal extensor digitorum longus tendons. Normal peroneus longus tendon and distal insertion. Normal peroneus brevis tendon and distal insertion. Normal intrinsic muscles of the mid and forefoot region. Normal extensor digitorum brevis muscle. Normal subcutis adipose space. MRI/Lower Ext/No Jt/w/o IMPRESSION: Cellulitis and ulcer plantar to the fifth metatarsal bone with cortical osteitis in early or mild osteomyelitis of the plantar aspect of the head of the fifth metatarsal bone. Electronically Signed: Bladimir Jiménez MD at 10:42 EDT Tel , Service support ,
--- NOTE | 2019-09-09 09:25 | PN_ITS ---
Patient Problems: Active and Suspected Problems (Last Reviewed 09/08/19 @ 23:[address] Eze Rivera MD) Diabetic foot ulcer (Acute) Diabetic foot infection (Acute) Reason for Visit: Diabetic foot infection Subjective: Patient is a 49-year-old gentleman with multiple comorbidities including end-stage renal disease on hemodialysis presented with increasing malodorous discharge from the left foot Objective: GENERAL: cooperative HEENT: Atraumatic; EYES; Anicteric, Normal Conjunctiva NECK; supple, normal thyroid, RESPIRATORY: Diminished to auscultation CARDIOVASCULAR: Regular S1 S2, GI: soft, normoactive bowel sounds, : No Renal angle tenderness; EXTREMITIES: Ulceration involving the left fifth toe MUSCULOSKELETAL: no muscle waisting NEURO: Awake; no lateralizing signs. SKIN: No Rash PSYCH; Flat affect Vitals/I&O's: Vital Signs Temp Pulse Resp BP Pulse Ox 98.1 F 58 L 18 141/78 H 98 09/09/19 08:34 09/09/19 08:34 09/09/19 08:34 09/09/19 08:34 09/09/19 08:34 Oxygen Flow Rate (L/min) 3 Oxygen Delivery Method Nasal Cannula Weight: 110.1 kg Body Mass Index (BMI) 38.0 Finger Stick Blood Glucose 410 Intake and Output for Last 24 Hours 09/07/19 09/08/19 09/09/19 22:59 23:59 23:59 Intake Total Output Total 150 / 150 Balance -150 / -150 Laboratory Results 09/08/19 19:10: WBC 9.8, RBC 3.74 L, Hgb 10.1 L, Hct 33.5 L, MCV 89.6, MCH 27.0, MCHC 30.1 L, RDW Std Deviation 48.6 H, RDW Coeff of Roberto 14.9 H, Plt Count 235, MPV 10.2, Immature Gran % (Auto) 0.600, Neut % (Auto) 81.6 H, Lymph % (Auto) 8.6 L, [place] % (Auto) 6.8, Eos % (Auto) 2.1, Baso % (Auto) 0.3, Absolute Neuts (auto) 8.0 H, Absolute Lymphs (auto) 0.84, Nucleated RBC % 0, ESR > 130 H 09/08/19 19:10: PT 14.4, INR 1.1, APTT 32.0 09/08/19 19:10: Sodium 132 L, Potassium 4.5, Chloride 96 L, Carbon Dioxide 29.0, Anion Gap 7, BUN 45 H, Creatinine 5.44 H, Estim Creat Clear Calc 15.02, Est GFR (MDRD) Af Amer 14 L, Est GFR (MDRD) Non-Af 12 L, BUN/Creatinine Ratio 8.3 L, Glucose 416 H, Calcium 8.3 L, Total Bilirubin 0.80, AST 23, ALT 24, Alkaline Phosphatase 186 H, C-React Prot Ext Range 55.80 H, Total Protein 7.7, Albumin 2.9 L, Globulin 4.8 H, Albumin/Globulin Ratio 0.6 L 09/08/19 19:10: Lactic Acid 0.8 09/08/19 19:45: S.aureus Protein A PCR POSITIVE H, MRSA (PCR) POSITIVE H 09/08/19 23:09: POC Glucose 341 H 09/09/19 02:04: POC Glucose 273 H 09/09/19 04:55: WBC 6.9, RBC 3.50 L, Hgb 9.7 L, Hct 31.4 L, MCV 89.7, MCH 27.7, MCHC 30.9 L, RDW Std Deviation 48.4 H, RDW Coeff of Roberto 14.8 H, Plt Count 223, MPV 9.4, Immature Gran % (Auto) 1.000 H, Neut % (Auto) 72.5 H, Lymph % (Auto) 11.7 L, [place] % (Auto) 9.6, Eos % (Auto) 4.3, Baso % (Auto) 0.9, Absolute Neuts (auto) 5.0, Absolute Lymphs (auto) 0.81 L, Nucleated RBC % 0 09/09/19 04:55: Sodium 134 L, Potassium 4.1, Chloride 95 L, Carbon Dioxide 29.0, Anion Gap 10, BUN 52 H, Creatinine 6.06 H, Estim Creat Clear Calc 13.48, Est GFR (MDRD) Af Amer 13 L, Est GFR (MDRD) Non-Af 11 L, BUN/Creatinine Ratio 8.6 L, Glucose 257 H, Calcium 8.2 L 09/09/19 05:46: POC Glucose 246 H Current Medications Acetaminophen (Tylenol) 650 mg PO Q6H PRN PRN PRN Reason: Pain Score 1-10/Temp > 100.7 F Albuterol/Ipratropium (Duoneb) 3 ml INHALATION Q4H.RT PRN PRN Reason: sob/wheezing Amlodipine Besylate (Norvasc) 10 mg PO DAILY [facility] Atorvastatin Calcium (Lipitor) 20 mg PO QHS [facility] Last Admin: 09/08/19 23:16 Dose: 20 mg Documented by: Cyclobenzaprine HCl (Flexeril) 10 mg PO TID PRN PRN PRN Reason: SPASMS Fluticasone Propionate (Flonase Nasal [place]) 1 spray NASAL DAILY [facility] Furosemide (Lasix) 80 mg PO BIDLX [facility] Glucagon () 1 mg IM .X1 PRN PRN Reason: Hypoglycemia Heparin Sodium (Porcine) (Heparin Na) 5,000 unit SC Q8 [facility] Last Admin: 09/08/19 23:14 Dose: 5,000 unit Documented by: Hydralazine HCl (Apresoline Iv) 5 mg IV Q4H PRN PRN PRN Reason: SBP > 160 Last Admin: 09/09/19 02:16 Dose: 5 mg Documented by: Vancomycin IV Pharmacy to Dose (1 ea/ Sodium Chloride) 500 mls @ 250 mls/hr IV PRN PRN; Protocol Piperacillin Sod/Tazobactam (Sod 3.375 gm/ Sodium Chloride) 50 mls @ 12.5 mls/hr IV Q12 [facility] Dextrose (Dextrose 10%-Water) 250 mls @ 999 mls/hr IV .Q16M PRN; Protocol PRN Reason: HYPOGLYCEMIA Sodium Chloride () 250 mls @ 15 mls/hr IV .[id number] PRN PRN Reason: Saline Flush Sodium Chloride () 250 mls @ 15 mls/hr IV .[id number] PRN PRN Reason: Additional IVPB Infusion Insulin Human Lispro (Humalog Kwikpen (Bkc)) 0 unit SC Q4 [facility]; Protocol Last Admin: 09/09/19 05:46 Dose: 4 u Documented by: Isosorbide Mononitrate (Imdur) 30 mg PO DAILY [facility] Melatonin (Melatonin) 3 mg PO QHS PRN PRN PRN Reason: INSOMNIA Methadone HCl () 2.5 mg PO BID [facility] Last Admin: 09/08/19 23:15 Dose: 2.5 mg Documented by: Metoprolol Tartrate (Lopressor (Beta Emmanuel)) 50 mg PO BID [facility] Last Admin: 09/08/19 23:16 Dose: 50 mg Documented by: Multivit/Ca Carb/B Cmplx/FA/Prenat (Nephrocaps, Renaphro) 1 capsule PO DAILY [facility] Multivitamins/Minerals (Healthy Eyes (Bkc)) 1 capsule PO DAILY [facility] Ondansetron HCl (Zofran) 4 mg IV Q6H PRN PRN PRN Reason: NAUSEA/VOMITING Oxycodone HCl (Oxyir) 5 mg PO Q6H PRN PRN PRN Reason: Pain Score 6-10/10 Last Admin: 09/08/19 23:16 Dose: 5 mg Documented by: Pantoprazole Sodium (Protonix) 40 mg PO DAILY [facility] Senna/Docusate Sodium (Senokot-S, Amanda-Colace) 2 tablet PO BID PRN PRN PRN Reason: Constipation Sertraline HCl (Zoloft) 25 mg PO DAILY [facility] Sevelamer Carbonate (Renvela) 2,400 mg PO TIDCM [facility] Last Admin: 09/09/19 08:43 Dose: Not Given Documented by: Sodium Chloride () 10 - 40 ml IV UD PRN PRN Reason: SALINE FLUSH Last Admin: 09/09/19 08:42 Dose: 10 ml Documented by: Trazodone HCl (Desyrel) 50 mg PO QHS [facility] Last Admin: 09/08/19 23:14 Dose: 50 mg Documented by: STROKE Vital Signs/Narrative: Vital Signs Temp Pulse Resp BP Pulse Ox 09/09/19 08:34 98.1 F 58 L 18 141/78 H 98 Medical Necessity - Tobacco Use Smoking Status: Never smoker Assessment/Plan All Active Problems (Last Reviewed 09/08/19 @ 23:[address] Eze Rivera MD) Diabetic foot ulcer (Acute) Diabetic foot infection (Acute) Patient is a 49-year-old gentleman with multiple comorbidities including end- stage renal disease on hemodialysis presented with increasing malodorous discharge from the left foot 1. Diabetic foot ulcer infection of the left fifth metatarsal area ?admitted to regular nursing floor started on broad-spectrum antibiotic therapy with vancomycin and Zosyn. As part of patient's evaluation MRSA screen was ordered MRI ordered to rule out osteomyelitis and consultation placed to podiatry. Plan is for patient to undergo intervention 2. Chronic hypoxic respiratory failure ?Patient is on baseline home O2 3. End-stage renal disease ?Patient is on hemodialysis on Tuesdays and Saturdays consult placed with Dr. Gregorio for dialysis orders. Ordered serial BMPs for monitoring 4. Obstructive sleep apnea ?Patient is on BiPAP at night plan is to continue 5. Chronic heart failure with preserved ejection fraction ?Echo obtained on 03/16/2019 demonstrated EF of 60%. Patient currently compensa sriram 6. Essential hypertension ?Blood pressure controlled continue with home medications 7. Dyslipidemia ?Patient is on atorvastatin did continue 8. Morbid obesity with BMI of 38 ?Weight loss advised 9. Diabetes mellitus type 2 ?With complications including diabetic nephropathy (end-stage renal disease); Did continue with home insulin regimen in addition to Accu-Cheks before meals and at bedtime with sliding scale coverage 10. Anemia secondary to anemia of ESRD ?Monitoring H&H with plans to transfuse if hemoglobin falls below 7 or patient becomes symptomatic 11. GERD ?Patient on PPI 12. DVT prophylaxis ?SC heparin Active Medications Acetaminophen (Tylenol) 650 mg PO Q6H PRN PRN PRN Reason: Pain Score 1-10/Temp > 100.7 F Albuterol/Ipratropium (Duoneb) 3 ml INHALATION Q4H.RT PRN PRN Reason: sob/wheezing Amlodipine Besylate (Norvasc) 10 mg PO DAILY [facility] Atorvastatin Calcium (Lipitor) 20 mg PO QHS [facility] Last Admin: 09/08/19 23:16 Dose: 20 mg Documented by: Cyclobenzaprine HCl (Flexeril) 10 mg PO TID PRN PRN PRN Reason: SPASMS Fluticasone Propionate (Flonase Nasal [place]) 1 spray NASAL DAILY [facility] Furosemide (Lasix) 80 mg PO BIDLX [facility] Glucagon () 1 mg IM .X1 PRN PRN Reason: Hypoglycemia Heparin Sodium (Porcine) (Heparin Na) 5,000 unit SC Q8 [facility] Last Admin: 09/08/19 23:14 Dose: 5,000 unit Documented by: Hydralazine HCl (Apresoline Iv) 5 mg IV Q4H PRN PRN PRN Reason: SBP > 160 Last Admin: 09/09/19 02:16 Dose: 5 mg Documented by: Vancomycin IV Pharmacy to Dose (1 ea/ Sodium Chloride) 500 mls @ 250 mls/hr IV PRN PRN; Protocol Piperacillin Sod/Tazobactam (Sod 3.375 gm/ Sodium Chloride) 50 mls @ 12.5 mls/hr IV Q12 [facility] Dextrose (Dextrose 10%-Water) 250 mls @ 999 mls/hr IV .Q16M PRN; Protocol PRN Reason: HYPOGLYCEMIA Sodium Chloride () 250 mls @ 15 mls/hr IV .[id number] PRN PRN Reason: Saline Flush Sodium Chloride () 250 mls @ 15 mls/hr IV .[id number] PRN PRN Reason: Additional IVPB Infusion Insulin Human Lispro (Humalog Pepe ([facility])) 0 unit SC Q4 [facility]; Protocol Last Admin: 09/09/19 05:46 Dose: 4 u Documented by: Isosorbide Mononitrate (Imdur) 30 mg PO DAILY [facility] Melatonin (Melatonin) 3 mg PO QHS PRN PRN PRN Reason: INSOMNIA Methadone HCl () 2.5 mg PO BID [facility] Last Admin: 09/08/19 23:15 Dose: 2.5 mg Documented by: Metoprolol Tartrate (Lopressor (Beta Emmanuel)) 50 mg PO BID [facility] Last Admin: 09/08/19 23:16 Dose: 50 mg Documented by: Multivit/Ca Carb/B Cmplx/FA/Prenat (Nephrocaps, Renaphro) 1 capsule PO DAILY [facility] Multivitamins/Minerals (Healthy Eyes (Bk)) 1 capsule PO DAILY [facility] Ondansetron HCl (Zofran) 4 mg IV Q6H PRN PRN PRN Reason: NAUSEA/VOMITING Oxycodone HCl (Oxyir) 5 mg PO Q6H PRN PRN PRN Reason: Pain Score 6-10/10 Last Admin: 09/08/19 23:16 Dose: 5 mg Documented by: Pantoprazole Sodium (Protonix) 40 mg PO DAILY [facility] Senna/Docusate Sodium (Senokot-S, Amanda-Colace) 2 tablet PO BID PRN PRN PRN Reason: Constipation Sertraline HCl (Zoloft) 25 mg PO DAILY [facility] Sevelamer Carbonate (Renvela) 2,400 mg PO TIDCM [facility] Last Admin: 09/09/19 08:43 Dose: Not Given Documented by: Sodium Chloride () 10 - 40 ml IV UD PRN PRN Reason: SALINE FLUSH Last Admin: 09/09/19 08:42 Dose: 10 ml Documented by: Trazodone HCl (Desyrel) 50 mg PO QHS [facility] Last Admin: 09/08/19 23:14 Dose: 50 mg Documented by: Inpatient E&M: [id number] Subs Hosp L3
[2019-09-09] MEDS: Metoprolol Tartrate 50 MG Tablet PO ×2 (11:04→22:13)
--- NOTE | 2019-09-09 11:30 | BON_PTH ---
PATIENT: JUSTICE BRUNER Jr. LOC: [facility]3 U#:[id number] AGE/SX: 49/M ROOM: [facility]319 RE09/08/[address]: Dr. Dharmesh Marie MD : 1970 BED: 1 DIS: 09/13/2019 SPEC #: [id number] RECD: 09/09/19 12:59 STATUS: LYNN REQ #: [id number] JUDY: 09/09/19 11:[address]: Rayray Shipley DEPT: SURGICAL PATHOLOGY RECD BY: Chaim Caban ENTERED: 09/09/19 14:02 SP TYPE: Bone OTHR DR: DO Dr. Werner Solitario MD Dr. Joseph Agyepong, MD Dr. Michael Jack, DPM MD Dr. Augie Pablo MD Tissues: A - Bone of foot, NOS B - Bone of foot, NOS Procedures: Decalcification bone/plaque Surgery Specimen Level IV HEADER OPERATION: Partial amputation left fifth ray PRE-OP DIAGNOSIS: Diabetic foot ulcer/infection TISSUE SUBMITTED: A - Left fifth toe and debrided tissue, B - Left foot clearance fragment MICROSCOPIC DIAGNOSIS A. Left fifth toe bone and tissue, amputation: Skin and soft tissue with ulceration, associated acute and chronic inflammation, abscess formation and granulation. Bone with chronic reparative and reactive change. No evidence of acute osteomyelitis. B. Left foot clearance fragment bone, biopsy: Cortical bone with no significant pathologic change. No evidence of osteomyelitis. AM:nimisha 09/12/19 MICROSCOPIC DESCRIPTION Slides are reviewed. GROSS DESCRIPTION A - Received in fixative is one container labeled with the patient's name and designated fifth toe. The specimen consists of multiple fragments of pink-ojeda soft tissue with adherent bone. The fragments range in size from 1 to 6.8 cm. The larger fragment consists of a toe with attached nail, soft tissue and bone. An ulcer is present in the lateral aspect of the distal fragment measuring 3.5 x 2 x 0.5 cm. The other fragments of bone and soft tissue are grossly unremarkable. [employer] sections are submitted in two cassettes as follows: 1 - ulcer with skin and soft tissue, 2 - ulcer with underlying soft tissue and bone after decalcification. B - Received in fixative is one container labeled with the patient's name and designated clearance fragment. The specimen consists of an irregular fragment of ojeda-red bone measuring 1.7 x 1 x 0.3 cm. The specimen is totally submitted in one cassette after decalcification. / AM:nimisha 09/09/19 TC:3 CPT: 54842 x2, [id number] x2
[2019-09-09 11:35] LABS: Bedside Glucose 224 mg/dL (70-110)
[2019-09-09] MEDS: Bupivacaine Mpf 0.5% 30 ML VIAL (12:10)
--- NOTE | 2019-09-09 12:14 | RAD_ITS ---
STUDY: X-RAY - LEFT FOOT CLINICAL: Male, 49 years old. POST OP, NECROTIC ULCER WITH PARTIAL FIFTH RAY AMPUTATION TECHNIQUE: 3 view(s) of the foot. COMPARISON: 09/08/2019 FINDINGS: Normal talus, calcaneus, and tarsal bones. Normal visualized subtalar, talonavicular, calcaneocuboid, tarsal and tarsometatarsal articulations. Interval transmetatarsal amputation of the fifth digit with subcutaneous emphysema. Normal metatarsophalangeal joint of the great toe. Normal tibial and fibular sesamoid bones. Normal interphalangeal joint of the great toe. Normal phalanges of the great toe. Normal second through fourth metatarsophalangeal joints. Normal interphalangeal joints and phalanges of the lesser toes. The soft tissue structures are unremarkable. RAD/Foot min 3 Views IMPRESSION: Interval transmetatarsal amputation of the fifth digit. Electronically Signed: Bladimir Jiménez MD at 12:55 EDT Tel , Service support ,
--- NOTE | 2019-09-09 12:15 | OP.PCM_ITS ---
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 Orestes Puente Type of Anesthesia:: Local MAC Specimen's removed: Left: 1. Debrided 5th toe and 5th metatarsal head sent to pathology. 2. Culture 5th metatarsal head sent to microbiology 3. Clearance fragment 5th metatarsal sent to pathology and microbiology Estimated Blood Loss (mL): 30mL Description of Procedure: Indications: The patient is a 49 year old gentleman who has necrotic ulceration sub 5th metatarsal head right foot. There is significant necrosis, infection, drainage and maloder. MRI was consistent with osteomyelitis to the 5th metatarsal head. Patient has diabetes. We discussed the options with the p atient, and patient elected to proceed with surgical debridement and amputation of the left 5th ray.This was discussed in great detail, and ultimately patient elected to proceed with this procedure. Discussed and reviewed the possible benefits vs risks. He was advised the risks include, but are not limited to pain, further infections, need for further surgery, nonhealing, delay healing, scarring, poor cosmetic result, numbness, weakness, loss of function, complex regional pain syndrome, blood clots, loss of limb, loss of life. Patient expressed understanding and agreement, and able to repeat back, all questions were answered. The consent form was reviewed and it was freely signed by the patient. No guaranties were given nor implied. Operative Procedure: The patient was brought into the operating room, and was place on the operating room table in the supine position. He was carefully secured to the operating room table with a safely belt around his waist. A time out was performed, the patient was properly identified and the surgical plan was confirmed. Patient was already on IV antibiotics. A well padded pneumatic tourniquet was placed around the left ankle. The patient received a total of 10mL of 0.5% Marcaine plain was given as a left foot 5th ray block after the skin was cleansed with 70% isopropyl alcohol. The left foot was scrubbed, prepped and draped in the usual aseptic fashion. The left foot was exsanguinated using as Esmarch bandage, and the left ankle pneumatic tourniquet was inflated to 250mmHg. There was noted to be an ulceration to sub 5th metatarsal head as noted above. Using a 15 scalpel blade all necrotic, infected, nonviable soft tissue was debrided from the site and a partial 5th ray amputation was completed, the 5th toe was disarticulated at the 5th metatarsal phalangeal joint and the 5th metatarsal head was resected using a powered sagittal saw. The 5th metatarsal head and base of 5th toe proximal phalanx was necrotic, soft, and nonviable consistent with infection. A culture was obtained from the 5th metatarsal head and was sent to microbiology, otherwise the rest of the debrided/amputated tissue was sent to pathology. The shaft of the 5th metatarsal was healthy appearing, it was hard, white and did not appear to be infected. A clearance fragment was obtained from the shaft of the 5th metatarsal and was sent to microbiology and pathology for further evaluation. All remaining tissues appeared to be healthy and viable, free of any infection. There did not appear to be any involvement to the 4th ray. The site was again flushed out with copious amounts of normal saline solution. The dorsal incision site was reapproximated using 3-0 Prolene, but otherwise the site had to be left open as there was not enough tissue for closure. The site was packed with Iodoform packing. The pneumatic tourniquet was deflated (total tourniquet time was 15 minutes), and there was immediate return of good vascular flow to the left foot, with normal temperature gradient and CFT < 2 seconds to the amputation site and to all remaining toes. A dressing was applied which consisted of adaptic, 4x4 gauze, kerlix, webril and and lily dressing. Post debridement the ulcer measures 4.5cm x 3cm and 0.4cm in depth. Patient tolerated the above procedure well with no complications. He was transported from the operating room to the recovery room in good condition. Post operative orders placed. Post operating instructions were reviewed with patient. Keep left foot elevated, keep dressing left foot clean, dry and intact, and no weightbearing left foot. Continue with IV antibiotics and we will continue to follow cultures. Patient will be followed as inpatient. Grafts/Implants Used: None - Complications None
[2019-09-09 13:50] LABS: Bedside Glucose 208 mg/dL (70-110)
[2019-09-09] MEDS: Acetaminophen 325 MG Tablet 650 MG PO (13:50)
--- NOTE | 2019-09-09 14:38 | CON.PCM_ITS ---
Consultation - Renal 09/09/19 PCP/ Referring MD: Requesting physician: [] Primary care physician: Augie Washburn MD Reason for Consultation:: ESRD on hemodialysis Monday, , Monday - History of Present Illness History of Present Illness: The patient is a 49 year old obese M [well-known to me with end-stage renal disease due to diabetes and hypertension on hemodialysis Monday, and Monday last treatment Monday, hypertension, SELMA on BiPAP, DM type II with neuropathy, and morbid obesity admitted for diabetic foot infection on left. He underwent fifth toe amputation this morning on the left. Foot ulcer had drainage with foul odor with fever and chills at home. He underwent fifth toe amputation on the right foot on prior admission. He was wearing his regular shoes. States that he was falling even with a walker or cane with his boots. He was on Keflex as an outpatient. Blood cultures pending. He is on IV Zosyn. - Allergies Allergies: Allergies venom-honey bee [bee venom (honey bee)] Allergy (Verified 09/08/19 17:56) Swelling sulfamethoxazole [From Bactrim] Adverse Reaction (Verified 09/08/19 17:56) Upset Stomach trimethoprim [From Bactrim] Adverse Reaction (Verified 09/08/19 17:56) Upset Stomach - Current Medications Current Medications: Current Medications Acetaminophen (Tylenol) 650 mg PO Q6H PRN PRN PRN Reason: Pain Score 1-10/Temp > 100.7 F Last Admin: 09/09/19 13:50 Dose: 650 mg Documented by: Albuterol/Ipratropium (Duoneb) 3 ml INHALATION Q4H.RT PRN PRN Reason: sob/wheezing Amlodipine Besylate (Norvasc) 10 mg PO DAILY [facility] Last Admin: 09/09/19 11:13 Dose: Not Given Documented by: Atorvastatin Calcium (Lipitor) 20 mg PO QHS [facility] Last Admin: 09/08/19 23:16 Dose: 20 mg Documented by: Cyclobenzaprine HCl (Flexeril) 10 mg PO TID PRN PRN PRN Reason: SPASMS Fluticasone Propionate (Flonase Nasal [place]) 1 spray NASAL DAILY [facility] Last Admin: 09/09/19 11:14 Dose: Not Given Documented by: Furosemide (Lasix) 80 mg PO BIDLX [facility] Last Admin: 09/09/19 11:13 Dose: Not Given Documented by: Glucagon () 1 mg IM .X1 PRN PRN Reason: Hypoglycemia Heparin Sodium (Porcine) (Heparin Na) 5,000 unit SC Q8 [facility] Last Admin: 09/08/19 23:14 Dose: 5,000 unit Documented by: Hydralazine HCl (Apresoline Iv) 5 mg IV Q4H PRN PRN PRN Reason: SBP > 160 Last Admin: 09/09/19 02:16 Dose: 5 mg Documented by: Vancomycin IV Pharmacy to Dose (1 ea/ Sodium Chloride) 500 mls @ 250 mls/hr IV PRN PRN; Protocol Piperacillin Sod/Tazobactam (Sod 3.375 gm/ Sodium Chloride) 50 mls @ 12.5 mls/hr IV Q12 [facility] Last Admin: 09/09/19 11:04 Dose: 12.5 mls/hr Documented by: Dextrose (Dextrose 10%-Water) 250 mls @ 999 mls/hr IV .Q16M PRN; Protocol PRN Reason: HYPOGLYCEMIA Sodium Chloride () 250 mls @ 15 mls/hr IV .[id number] PRN PRN Reason: Saline Flush Sodium Chloride () 250 mls @ 15 mls/hr IV .[id number] PRN PRN Reason: Additional IVPB Infusion Insulin Human Lispro (Humalog Kwikpen (Bkc)) 0 unit SC Q4 [facility]; Protocol Last Admin: 09/09/19 13:45 Dose: 4 u Documented by: Isosorbide Mononitrate (Imdur) 30 mg PO DAILY [facility] Last Admin: 09/09/19 11:13 Dose: Not Given Documented by: Melatonin (Melatonin) 3 mg PO QHS PRN PRN PRN Reason: INSOMNIA Methadone HCl () 2.5 mg PO BID [facility] Last Admin: 09/09/19 11:13 Dose: Not Given Documented by: Metoprolol Tartrate (Lopressor (Beta Emmanuel)) 50 mg PO BID [facility] Last Admin: 09/09/19 11:04 Dose: 50 mg Documented by: Multivit/Ca Carb/B Cmplx/FA/Prenat (Nephrocaps, Renaphro) 1 capsule PO DAILY [facility] Last Admin: 09/09/19 11:13 Dose: Not Given Documented by: Multivitamins/Minerals (Healthy Eyes (Bkc)) 1 capsule PO DAILY [facility] Last Admin: 09/09/19 11:14 Dose: Not Given Documented by: Ondansetron HCl (Zofran) 4 mg IV Q6H PRN PRN PRN Reason: NAUSEA/VOMITING Oxycodone HCl (Oxyir) 5 mg PO Q6H PRN PRN PRN Reason: Pain Score 6-10/10 Last Admin: 09/08/19 23:16 Dose: 5 mg Documented by: Pantoprazole Sodium (Protonix) 40 mg PO DAILY [facility] Last Admin: 09/09/19 11:13 Dose: Not Given Documented by: Senna/Docusate Sodium (Senokot-S, Amanda-Colace) 2 tablet PO BID PRN PRN PRN Reason: Constipation Sertraline HCl (Zoloft) 25 mg PO DAILY [facility] Last Admin: 09/09/19 11:12 Dose: Not Given Documented by: Sevelamer Carbonate (Renvela) 2,400 mg PO TIDCM [facility] Last Admin: 09/09/19 12:16 Dose: Not Given Documented by: Sodium Chloride () 10 - 40 ml IV UD PRN PRN Reason: SALINE FLUSH Last Admin: 09/09/19 08:42 Dose: 10 ml Documented by: Trazodone HCl (Desyrel) 50 mg PO QHS [facility] Last Admin: 09/08/19 23:14 Dose: 50 mg Documented by: - Past Medical History Past Medical History (Chronic Problems): Chronic Problems (Last Reviewed 09/08/19 @ 23:[address] Eze Rivera MD) Noncompliance (Chronic) CHF (congestive heart failure) (Chronic) Pulmonary hypertension (Chronic) End stage renal disease on dialysis (Chronic) Peripheral vascular disease (Chronic) Toe fracture, right (Chronic) Ulcer of right foot with fat layer exposed (Chronic) Chronic ulcer of left foot with fat layer exposed (Chronic) Type 2 diabetes mellitus with diabetic polyneuropathy (Chronic) Chronic ulcer of left foot with fat layer exposed (Chronic) Chronic respiratory failure with hypoxia (Chronic) HTN (hypertension) (Chronic) Hyperlipidemia (Chronic) Diabetic neuropathy (Chronic) Anemia (Chronic) SELMA (obstructive sleep apnea) (Chronic) - Past Surgical History Surgical History: tonsillectomy, - - Social History Marital Status: Smoking Status: Never smoker - Family History Maternal Family History: Family History (Last Reviewed 09/08/19 @ 23:[address] Eze Rivera MD) Mother Hypertension Heart disease Diabetes Father Hypertension Heart disease Brother Heart disease History Items: Diabetes, Heart Disease, Hypertension, Renal Disease Paternal Family History: Family History (Last Reviewed 09/08/19 @ 23:[address] Eze Rivera MD) Mother Hypertension Heart disease Diabetes Father Hypertension Heart disease Brother Heart disease History Items: Cancer - liver, Diabetes, Heart Disease Review of Systems Constitutional: Reports: Anorexia, Chills, Fever, Weakness Cardiovascular: Reports: Edema. Denies: Chest Pain, Syncope Respiratory: Denies: Cough, Shortness of Breath Gastrointestinal: Denies: Nausea, Vomiting Musculoskeletal: Reports: - - Left diabetic foot ulcer with drainage at home foul odor status post amputation of fifth toe today Skin: Reports: Wounds - Left fifth toe amputation, wound dressing with serosanguineous drainage on bandage. Neurological: Reports: Balance problems Hematologic/ Lymphatic: Reports: Anemia Patient Problems: Active and Suspected Problems (Last Reviewed 09/08/19 @ 23:[address] Eze Rivera MD) Diabetic foot ulcer (Acute) Diabetic foot infection (Acute) - Physical Exam Vitals/I&O's: Vital Signs Temp Pulse Resp BP Pulse Ox 97.6 F L 56 L 18 143/59 H 98 09/09/19 13:28 09/09/19 13:28 09/09/19 13:28 09/09/19 13:28 09/09/19 13:28 Oxygen Flow Rate (L/min) 3 Oxygen Delivery Method Nasal Cannula Weight: 110.1 kg Body Mass Index (BMI) 38.0 Finger Stick Blood Glucose 410 Intake and Output for Last 24 Hours 09/07/19 09/08/19 09/09/19 22:59 23:59 23:59 Intake Total Output Total 150 / 150 Balance -150 / -150 General: Alert, Oriented x3, Cooperative, No apparent distress Lungs: Clear to auscultation Cardiovascular: Regular rate, Murmur Abdomen: Bowel Sounds Present, Soft, Non Tender, Non-Distended, Obese Extremities: Edema Musculoskeletal: - - Left foot dressing applied Psych/Mental Status: Normal Affect, Appropriate, Alert and oriented to time, place, person, mood and affect Microbiology Past 72 Hours 09/08/19 19:45 Wound - Left Foot Gram Stain - Final 09/08/19 19:45 Wound - Left Foot Wound Culture - Preliminary No growth-Final to follow Laboratory Results 09/08/19 19:10: WBC 9.8, RBC 3.74 L, Hgb 10.1 L, Hct 33.5 L, MCV 89.6, MCH 27.0, MCHC 30.1 L, RDW Std Deviation 48.6 H, RDW Coeff of Roberto 14.9 H, Plt Count 235, MPV 10.2, Immature Gran % (Auto) 0.600, Neut % (Auto) 81.6 H, Lymph % (Auto) 8.6 L, Jack % (Auto) 6.8, Eos % (Auto) 2.1, Baso % (Auto) 0.3, Absolute Neuts (auto) 8.0 H, Absolute Lymphs (auto) 0.84, Nucleated RBC % 0, ESR > 130 H 09/08/19 19:10: PT 14.4, INR 1.1, APTT 32.0 09/08/19 19:10: Sodium 132 L, Potassium 4.5, Chloride 96 L, Carbon Dioxide 29.0, Anion Gap 7, BUN 45 H, Creatinine 5.44 H, Estim Creat Clear Calc 15.02, Est GFR (MDRD) Af Amer 14 L, Est GFR (MDRD) Non-Af 12 L, BUN/Creatinine Ratio 8.3 L, Glucose 416 H, Calcium 8.3 L, Total Bilirubin 0.80, AST 23, ALT 24, Alkaline Phosphatase 186 H, C-React Prot Ext Range 55.80 H, Total Protein 7.7, Albumin 2.9 L, Globulin 4.8 H, Albumin/Globulin Ratio 0.6 L 09/08/19 19:10: Lactic Acid 0.8 09/08/19 19:45: S.aureus Protein A PCR POSITIVE H, MRSA (PCR) POSITIVE H 09/08/19 23:09: POC Glucose 341 H 09/09/19 02:04: POC Glucose 273 H 09/09/19 04:55: WBC 6.9, RBC 3.50 L, Hgb 9.7 L, Hct 31.4 L, MCV 89.7, MCH 27.7, MCHC 30.9 L, RDW Std Deviation 48.4 H, RDW Coeff of Roberto 14.8 H, Plt Count 223, MPV 9.4, Immature Gran % (Auto) 1.000 H, Neut % (Auto) 72.5 H, Lymph % (Auto) 11.7 L, Jack % (Auto) 9.6, Eos % (Auto) 4.3, Baso % (Auto) 0.9, Absolute Neuts (auto) 5.0, Absolute Lymphs (auto) 0.81 L, Nucleated RBC % 0 09/09/19 04:55: Sodium 134 L, Potassium 4.1, Chloride 95 L, Carbon Dioxide 29.0, Anion Gap 10, BUN 52 H, Creatinine 6.06 H, Estim Creat Clear Calc 13.48, Est GFR (MDRD) Af Amer 13 L, Est GFR (MDRD) Non-Af 11 L, BUN/Creatinine Ratio 8.6 L, Glucose 257 H, Calcium 8.2 L 09/09/19 05:46: POC Glucose 246 H 09/09/19 11:17: POC Glucose 224 H 09/09/19 13:43: POC Glucose 208 H Clinical Impression(s) from Imaging Studies Foot X-Ray 09/08/19 19:39 IMPRESSION: Focal calcaneal lucency along the inferior surface, possible osteomyelitis. Electronically Signed: Wilian Rose at 20:06 EDT Tel , Service support , Lower Extremity MRI 09/09/19 09:00 IMPRESSION: Cellulitis and ulcer plantar to the fifth metatarsal bone with cortical osteitis in early or mild osteomyelitis of the plantar aspect of the head of the fifth metatarsal bone. Electronically Signed: Bladimir Jiménez MD at 10:42 EDT Tel , Service support , Foot X-Ray 09/09/19 12:14 IMPRESSION: Interval transmetatarsal amputation of the fifth digit. Electronically Signed: Bladimir Jiménez MD at 12:55 EDT Tel , Service support , Current Medications Acetaminophen (Tylenol) 650 mg PO Q6H PRN PRN PRN Reason: Pain Score 1-10/Temp > 100.7 F Last Admin: 09/09/19 13:50 Dose: 650 mg Documented by: Albuterol/Ipratropium (Duoneb) 3 ml INHALATION Q4H.RT PRN PRN Reason: sob/wheezing Amlodipine Besylate (Norvasc) 10 mg PO DAILY [facility] Last Admin: 09/09/19 11:13 Dose: Not Given Documented by: Atorvastatin Calcium (Lipitor) 20 mg PO QHS [facility] Last Admin: 09/08/19 23:16 Dose: 20 mg Documented by: Cyclobenzaprine HCl (Flexeril) 10 mg PO TID PRN PRN PRN Reason: SPASMS Fluticasone Propionate (Flonase Nasal [place]) 1 spray NASAL DAILY [facility] Last Admin: 09/09/19 11:14 Dose: Not Given Documented by: Furosemide (Lasix) 80 mg PO BIDLX [facility] Last Admin: 09/09/19 11:13 Dose: Not Given Documented by: Glucagon () 1 mg IM .X1 PRN PRN Reason: Hypoglycemia Heparin Sodium (Porcine) (Heparin Na) 5,000 unit SC Q8 [facility] Last Admin: 09/08/19 23:14 Dose: 5,000 unit Documented by: Hydralazine HCl (Apresoline Iv) 5 mg IV Q4H PRN PRN PRN Reason: SBP > 160 Last Admin: 09/09/19 02:16 Dose: 5 mg Documented by: Vancomycin IV Pharmacy to Dose (1 ea/ Sodium Chloride) 500 mls @ 250 mls/hr IV PRN PRN; Protocol Piperacillin Sod/Tazobactam (Sod 3.375 gm/ Sodium Chloride) 50 mls @ 12.5 mls/hr IV Q12 [facility] Last Admin: 09/09/19 11:04 Dose: 12.5 mls/hr Documented by: Dextrose (Dextrose 10%-Water) 250 mls @ 999 mls/hr IV .Q16M PRN; Protocol PRN Reason: HYPOGLYCEMIA Sodium Chloride () 250 mls @ 15 mls/hr IV .[id number] PRN PRN Reason: Saline Flush Sodium Chloride () 250 mls @ 15 mls/hr IV .[id number] PRN PRN Reason: Additional IVPB Infusion Insulin Human Lispro (Humalog [place]en ([facility])) 0 unit SC Q4 [facility]; Protocol Last Admin: 09/09/19 13:45 Dose: 4 u Documented by: Isosorbide Mononitrate (Imdur) 30 mg PO DAILY [facility] Last Admin: 09/09/19 11:13 Dose: Not Given Documented by: Melatonin (Melatonin) 3 mg PO QHS PRN PRN PRN Reason: INSOMNIA Methadone HCl () 2.5 mg PO BID [facility] Last Admin: 09/09/19 11:13 Dose: Not Given Documented by: Metoprolol Tartrate (Lopressor (Beta Emmanuel)) 50 mg PO BID [facility] Last Admin: 09/09/19 11:04 Dose: 50 mg Documented by: Multivit/Ca Carb/B Cmplx/FA/Prenat (Nephrocaps, Renaphro) 1 capsule PO DAILY [facility] Last Admin: 09/09/19 11:13 Dose: Not Given Documented by: Multivitamins/Minerals (Healthy Eyes ([facility])) 1 capsule PO DAILY [facility] Last Admin: 09/09/19 11:14 Dose: Not Given Documented by: Ondansetron HCl (Zofran) 4 mg IV Q6H PRN PRN PRN Reason: NAUSEA/VOMITING Oxycodone HCl (Oxyir) 5 mg PO Q6H PRN PRN PRN Reason: Pain Score 6-10/10 Last Admin: 09/08/19 23:16 Dose: 5 mg Documented by: Pantoprazole Sodium (Protonix) 40 mg PO DAILY [facility] Last Admin: 09/09/19 11:13 Dose: Not Given Documented by: Senna/Docusate Sodium (Senokot-S, Amanda-Colace) 2 tablet PO BID PRN PRN PRN Reason: Constipation Sertraline HCl (Zoloft) 25 mg PO DAILY [facility] Last Admin: 09/09/19 11:12 Dose: Not Given Documented by: Sevelamer Carbonate (Renvela) 2,400 mg PO TIDCM [facility] Last Admin: 09/09/19 12:16 Dose: Not Given Documented by: Sodium Chloride () 10 - 40 ml IV UD PRN PRN Reason: SALINE FLUSH Last Admin: 09/09/19 08:42 Dose: 10 ml Documented by: Trazodone HCl (Desyrel) 50 mg PO QHS [facility] Last Admin: 09/08/19 23:14 Dose: 50 mg Documented by: Assessment/Plan All Active Problems (Last Reviewed 09/08/19 @ 23:[address] Eze Rivera MD) Diabetic foot ulcer (Acute) Diabetic foot infection (Acute) 1. End-stage renal disease hemodialysis next on Monday. 2. Diabetic foot ulcer left foot status post fifth toe amputation today. 3. Type II DM noncompliant 4. hypertension with stable blood pressures 5. Morbid obesity 6. Anemia hemoglobin stable, TERESA on dialysis 7. SELMA on BiPAP at home.
--- NOTE | 2019-09-09 15:01 | CASEMGMT ---
Social Work Note WILFREDO reviewed notes. PT has LIZETTE Gomez Minor through [facility] and is active with Palliative Care. SW placed a call to pt's LIZETTE Gomez and updated her on pt's admission to [facility]. WILFREDO placed a call to [facility], left message for Palliative Care updating staff that pt is currently at [facility]. Plan: Likely discharge back home with [facility], [facility], Palliative Care Ade Kitchen WEATHER REPORTER, PATIENT FINANCIAL SERVICES SPECIALIST
--- NOTE | 2019-09-09 15:46 | PCM.HP.ID ---
Problem List (1) Diabetic foot infection Status: Acute Reason for Consult: osteo Consulted by: Dr. Desai History of Present Illness: The patient is a 49 year old M with h/o PVD, ESRD, and recurrent DM foot infections, presented with several days of not feeling well, fever, fatigue. Went to ED here 09/03, given keflex for abnormal UA. Makes minimal urine. On 09/07, home health noticed L heel purulence, sent him to ED. Taken to OR today by Dr. Shipley, feeling better. On vanc/zosyn. Full ROS performed and neg except as noted above. - Medical History Past Medical History (Chronic Problems): Chronic Problems (Last Reviewed 09/08/19 @ 23:[address] Eze Rivera MD) Noncompliance (Chronic) CHF (congestive heart failure) (Chronic) Pulmonary hypertension (Chronic) End stage renal disease on dialysis (Chronic) Peripheral vascular disease (Chronic) Toe fracture, right (Chronic) Ulcer of right foot with fat layer exposed (Chronic) Chronic ulcer of left foot with fat layer exposed (Chronic) Type 2 diabetes mellitus with diabetic polyneuropathy (Chronic) Chronic ulcer of left foot with fat layer exposed (Chronic) Chronic respiratory failure with hypoxia (Chronic) HTN (hypertension) (Chronic) Hyperlipidemia (Chronic) Diabetic neuropathy (Chronic) Anemia (Chronic) SELMA (obstructive sleep apnea) (Chronic) Allergies/Adverse Reactions: Allergies venom-honey bee [bee venom (honey bee)] Allergy (Verified 09/08/19 17:56) Swelling sulfamethoxazole [From Bactrim] Adverse Reaction (Verified 09/08/19 17:56) Upset Stomach trimethoprim [From Bactrim] Adverse Reaction (Verified 09/08/19 17:56) Upset Stomach Home Medications: Ambulatory Orders Medication Instructions Recorded Atorvastatin Calcium [Lipitor] 20 mg PO QHS 10/11/17 Vits A,C,E/Lutein/Minerals 1 ea PO DAILY 10/11/17 [Ocuvite with Lutein Tablet] Folic Acid/Vitamin B Comp W-C 1 cap PO DAILY 10/27/17 [Nephrocaps, Renaphro] albuterol sulfate 90 mcg/actuation 2 puff INHALATION Q4H PRN #18 g 02/26/18 aerosol inhaler Aspirin E.C. [Ecotrin] 81 mg PO DAILY 09/21/18 Cyclobenzaprine HCl 10 mg PO TID PRN PRN 03/23/18 Fluticasone 0.05% [Flonase Nasal 1 spray NASAL DAILY 03/23/18 [place]] isosorbide mononitrate 30 mg 30 mg PO DAILY #30 tab 07/24/18 tablet,extended release 24 hr Metoprolol Tartrate [Lopressor 50 mg PO BID 03/12/19 (beta khoa)] Omeprazole 40 mg PO DAILY 03/12/19 proMETHazine tablet [Phenergan 25 mg PO TID PRN 03/13/19 tablet] Sevelamer HCl [Renagel] 2,400 mg PO TID #0 03/20/19 traZODone [Desyrel] 50 mg PO QHS 07/06/19 Amlodipine [Norvasc] 10 mg PO DAILY #30 tab 07/12/19 Collagenase [Santyl] 1 applic TOPICAL DAILY tube 07/24/19 Sertraline HCl [Zoloft] 25 mg PO DAILY 08/05/19 Acetaminophen [Tylenol Tablet] 650 mg PO Q6H PRN PRN tab 08/08/19 Insulin Lispro [Humalog KwikPen] 15 unit SUBCUT 0800,1200,1700 08/08/19 insuln.pen Furosemide [Lasix] 80 mg PO BIDLX #60 tab 08/10/19 Insulin Lispro [Humalog KwikPen] See Protocol SUBCUT ACHS 08/10/19 Ipratropium/Albuterol Sulfate 3 ml INHALATION Q6H #120 ampul.neb 08/14/19 [Duoneb] Cephalexin [Keflex] 500 mg PO Q6 #28 cap 09/04/19 Oxycodone [Oxyir] 5 mg PO Q6H PRN PRN 09/04/19 Methadone HCl 2.5 mg PO BID 09/08/19 - Social History Tobacco Use: non-smoker Vital Signs Temp Pulse Resp BP Pulse Ox 97.6 F L 56 L 18 143/59 H 98 09/09/19 13:28 09/09/19 13:28 09/09/19 13:28 09/09/19 13:28 09/09/19 13:28 Oxygen Flow Rate (L/min) 3 Oxygen Delivery Method Nasal Cannula Weight: 110.1 kg Body Mass Index (BMI) 38.0 Finger Stick Blood Glucose 410 Microbiology Past 72 Hours 09/09/19 12:44 Gram Stain - Final Bone - Left Foot 09/09/19 12:44 Gram Stain - Final Bone - Left Foot 09/08/19 19:45 Gram Stain - Final Wound - Left Foot Wound Culture - Preliminary No growth-Final to follow Laboratory Tests Past 24 Hrs 09/08/19 09/08/19 09/08/19 19:10 19:10 19:10 WBC 9.8 RBC 3.74 L Hgb 10.1 L Hct 33.5 L MCV 89.6 MCH 27.0 MCHC 30.1 L RDW Std Deviation 48.6 H RDW Coeff of Roberto 14.9 H Plt Count 235 MPV 10.2 Immature Gran % (Auto) 0.600 Neut % (Auto) 81.6 H Lymph % (Auto) 8.6 L [place] % (Auto) 6.8 Eos % (Auto) 2.1 Baso % (Auto) 0.3 Absolute Neuts (auto) 8.0 H Absolute Lymphs (auto) 0.84 Nucleated RBC % 0 ESR > 130 H PT 14.4 INR 1.1 APTT 32.0 Sodium 132 L Potassium 4.5 Chloride 96 L Carbon Dioxide 29.0 Anion Gap 7 BUN 45 H Creatinine 5.44 H Estim Creat Clear Calc 15.02 Est GFR (MDRD) Af Amer 14 L Est GFR (MDRD) Non-Af 12 L BUN/Creatinine Ratio 8.3 L Glucose 416 H Lactic Acid Calcium 8.3 L Total Bilirubin 0.80 AST 23 ALT 24 Alkaline Phosphatase 186 H C-React Prot Ext Range 55.80 H Total Protein 7.7 Albumin 2.9 L Globulin 4.8 H Albumin/Globulin Ratio 0.6 L S.aureus Protein A PCR MRSA (PCR) 09/08/19 09/08/19 09/09/19 19:10 19:45 04:55 WBC 6.9 RBC 3.50 L Hgb 9.7 L Hct 31.4 L MCV 89.7 MCH 27.7 MCHC 30.9 L RDW Std Deviation 48.4 H RDW Coeff of Roberto 14.8 H Plt Count 223 MPV 9.4 Immature Gran % (Auto) 1.000 H Neut % (Auto) 72.5 H Lymph % (Auto) 11.7 L [place] % (Auto) 9.6 Eos % (Auto) 4.3 Baso % (Auto) 0.9 Absolute Neuts (auto) 5.0 Absolute Lymphs (auto) 0.81 L Nucleated RBC % 0 ESR PT INR APTT Sodium Potassium Chloride Carbon Dioxide Anion Gap BUN Creatinine Estim Creat Clear Calc Est GFR (MDRD) Af Amer Est GFR (MDRD) Non-Af BUN/Creatinine Ratio Glucose Lactic Acid 0.8 Calcium Total Bilirubin AST ALT Alkaline Phosphatase C-React Prot Ext Range Total Protein Albumin Globulin Albumin/Globulin Ratio S.aureus Protein A PCR POSITIVE H MRSA (PCR) POSITIVE H 09/09/19 04:55 WBC RBC Hgb Hct MCV MCH MCHC RDW Std Deviation RDW Coeff of Roberto Plt Count MPV Immature Gran % (Auto) Neut % (Auto) Lymph % (Auto) [place] % (Auto) Eos % (Auto) Baso % (Auto) Absolute Neuts (auto) Absolute Lymphs (auto) Nucleated RBC % ESR PT INR APTT Sodium 134 L Potassium 4.1 Chloride 95 L Carbon Dioxide 29.0 Anion Gap 10 BUN 52 H Creatinine 6.06 H Estim Creat Clear Calc 13.48 Est GFR (MDRD) Af Amer 13 L Est GFR (MDRD) Non-Af 11 L BUN/Creatinine Ratio 8.6 L Glucose 257 H Lactic Acid Calcium 8.2 L Total Bilirubin AST ALT Alkaline Phosphatase C-React Prot Ext Range Total Protein Albumin Globulin Albumin/Globulin Ratio S.aureus Protein A PCR MRSA (PCR) - Other Studies Radiology: [] reviewed Other Studies: [] Route of nutrition/ use of supplements: [] Nutritional Intake: [] IV Site: [] Kuo Catheter: [] - Physical Exam General: Alert, Oriented x3, Cooperative, No apparent distress HEENT: Atraumatic, PERRLA, EOMI Neck: Supple, No Nodes Lungs: Clear to auscultation, Normal air movement Cardiovascular: Regular rate, Regular Rhythm Abdomen: Soft, Non Tender, Non-Distended Extremities: Edema Skin: Ulcer/ Wound - L foot surg dressing in place IV Site: Peripheral, without redness Musculoskeletal: No Tenderness to Palpation of Joints or Extremities Neurological: Cranial nerves II-XII grossly intact - Assessment/Plan Antibiotics: [] Assessment/Plan: [] Active and Suspected Problems (Last Reviewed 09/08/19 @ 23:[address] Eze Rivera MD) Diabetic foot ulcer (Acute) Diabetic foot infection (Acute) L foot DM osteo - s/p OR today by Dr. Shipley. Surg cx pending, had been on keflex for a few days prior to admit. Cont vanc/zosyn. MRSA pcr (+). Will follow, thank you.
[2019-09-09] MEDS: SEVELAMER CARBONATE 800 MG TABLET 2400 MG PO (17:07)
[2019-09-09 17:21] LABS: Bedside Glucose 242 mg/dL (70-110)
[2019-09-09] MEDS: Furosemide 80 MG Tablet PO (17:48)
[2019-09-09] MEDS: Heparin Injection (Vial) 5,000 UNIT/ML VIAL 5000 UNIT SC (22:13)
[2019-09-09] MEDS: traZODone 50 MG Tablet PO (22:13)
[2019-09-09] MEDS: Atorvastatin Calcium 20 MG Tablet PO (22:18)
[2019-09-09 22:35] LABS: Bedside Glucose 286 mg/dL (70-110)
[2019-09-10] VITALS (8 sets, daily range): BP systolic 150–169; BP diastolic 61–90; PULSE 62–84; RESP 16–18; TEMP 36.4–37.1; O2SAT 96–100
[2019-09-10] MEDS: Insulin Lispro 100 UNIT/ML INSULN.PEN SC ×6 (02:16→23:09)
[2019-09-10 02:31] LABS: Bedside Glucose 299 mg/dL (70-110)
[2019-09-10] MEDS: Heparin Injection (Vial) 5,000 UNIT/ML VIAL 5000 UNIT SC ×3 (05:43→23:09)
[2019-09-10 05:50] LABS: Bedside Glucose 257 mg/dL (70-110)
[2019-09-10 07:00] LABS: Albumin, Serum 2.4 g/dL (3.2-5.0); BUN 62 mg/dL (7-18); BUN/Creat Ratio 8.4 RATIO (10-20); Calcium,Total 8.3 mg/dL (8.5-10.1); Chloride 99 mmol/L (98-107); Creatinine, Serum 7.34 mg/dL (0.70-1.30); EST Glomerular Filtration Rate 8 mL/min (>60); Est Glom Filt Rate - Afr Amer 10 mL/min (>60); Estimated Creatinine Clearance 11.13 ml/min; Glucose 269 mg/dL (74-106); Phosphorus 6.3 mg/dL (2.5-4.9); Potassium 4.5 mmol/L (3.5-5.1); Sodium Level 136 mmol/L (136-145)
--- NOTE | 2019-09-10 07:57 | PN_ITS ---
Patient Problems: Active and Suspected Problems (Last Reviewed 09/08/19 @ 23:[address] Eze Rivera MD) Diabetic foot ulcer (Acute) Diabetic foot infection (Acute) Reason for Visit: Diabetic foot infection Subjective: Patient underwent Debridement of all nonviable, infected, necrotic soft tissue and bone from left foot w/ partial 5th ray amputation Dr. Shipley with podiatry on 09/09/2019 Objective: GENERAL: cooperative HEENT: Atraumatic; EYES; Anicteric, Normal Conjunctiva NECK; supple, normal thyroid, RESPIRATORY: Diminished to auscultation CARDIOVASCULAR: Regular S1 S2, GI: soft, normoactive bowel sounds, : No Renal angle tenderness; EXTREMITIES: Ulceration involving the left fifth toe MUSCULOSKELETAL: no muscle waisting NEURO: Awake; no lateralizing signs. SKIN: No Rash PSYCH; Flat affect Vitals/I&O's: Vital Signs Temp Pulse Resp BP Pulse Ox 98.8 F 63 18 150/67 H 96 09/10/19 02:20 09/10/19 02:20 09/10/19 02:20 09/10/19 02:20 09/10/19 02:20 Oxygen Flow Rate (L/min) 3 Oxygen Delivery Method Nasal Cannula Weight: 110.1 kg Body Mass Index (BMI) 38.0 Finger Stick Blood Glucose 410 Intake and Output for Last 24 Hours 09/08/19 09/09/19 09/10/19 23:59 23:59 23:59 Intake Total 420 / 420 50 / 50 Output Total 200 / 200 125 / 125 Balance 220 / 220 -75 / -75 Microbiology Past 72 Hours 09/09/19 12:44 Bone - Left Foot Gram Stain - Final 09/09/19 12:44 Bone - Left Foot Gram Stain - Final 09/08/19 19:45 Wound - Left Foot Gram Stain - Final 09/08/19 19:45 Wound - Left Foot Wound Culture - Preliminary No growth-Final to follow Laboratory Results 09/09/19 11:17: POC Glucose 224 H 09/09/19 13:43: POC Glucose 208 H 09/09/19 17:05: POC Glucose 242 H 09/09/19 22:27: POC Glucose 286 H 09/10/19 02:14: POC Glucose 299 H 09/10/19 05:42: POC Glucose 257 H 09/10/19 05:50: Sodium 136, Potassium 4.5, Chloride 99, Carbon Dioxide 26.0, BUN 62 H, Creatinine 7.34 H, Estim Creat Clear Calc 11.13, Est GFR (MDRD) Af Amer 10 L, Est GFR (MDRD) Non-Af 8 L, BUN/Creatinine Ratio 8.4 L, Glucose 269 H, Calcium 8.3 L, Phosphorus 6.3 H, Albumin 2.4 L Current Medications Acetaminophen (Tylenol) 650 mg PO Q6H PRN PRN PRN Reason: Pain Score 1-10/Temp > 100.7 F Last Admin: 09/09/19 13:50 Dose: 650 mg Documented by: Albuterol/Ipratropium (Duoneb) 3 ml INHALATION Q4H.RT PRN PRN Reason: sob/wheezing Amlodipine Besylate (Norvasc) 10 mg PO DAILY [facility] Last Admin: 09/09/19 11:13 Dose: Not Given Documented by: Atorvastatin Calcium (Lipitor) 20 mg PO QHS [facility] Last Admin: 09/09/19 22:18 Dose: 20 mg Documented by: Cyclobenzaprine HCl (Flexeril) 10 mg PO TID PRN PRN PRN Reason: SPASMS Fluticasone Propionate (Flonase Nasal [place]) 1 spray NASAL DAILY [facility] Last Admin: 09/09/19 11:14 Dose: Not Given Documented by: Furosemide (Lasix) 80 mg PO BIDLX [facility] Last Admin: 09/09/19 17:48 Dose: 80 mg Documented by: Glucagon () 1 mg IM .X1 PRN PRN Reason: Hypoglycemia Heparin Sodium (Porcine) (Heparin Na) 5,000 unit SC Q8 [facility] Last Admin: 09/10/19 05:43 Dose: 5,000 unit Documented by: Hydralazine HCl (Apresoline Iv) 5 mg IV Q4H PRN PRN PRN Reason: SBP > 160 Last Admin: 09/09/19 22:24 Dose: 5 mg Documented by: Vancomycin IV Pharmacy to Dose (1 ea/ Sodium Chloride) 500 mls @ 250 mls/hr IV PRN PRN; Protocol Piperacillin Sod/Tazobactam (Sod 3.375 gm/ Sodium Chloride) 50 mls @ 12.5 mls/hr IV Q12 [facility] Last Infusion: 09/10/19 02:13 Dose: Infused Documented by: Dextrose (Dextrose 10%-Water) 250 mls @ 999 mls/hr IV .Q16M PRN; Protocol PRN Reason: HYPOGLYCEMIA Sodium Chloride () 250 mls @ 15 mls/hr IV .[id number] PRN PRN Reason: Saline Flush Sodium Chloride () 250 mls @ 15 mls/hr IV .[id number] PRN PRN Reason: Additional IVPB Infusion Insulin Human Lispro (Humalog Pepe ([facility])) 0 unit SC Q4 [facility]; Protocol Last Admin: 09/10/19 05:43 Dose: 4 u Documented by: Isosorbide Mononitrate (Imdur) 30 mg PO DAILY [facility] Last Admin: 09/09/19 11:13 Dose: Not Given Documented by: Melatonin (Melatonin) 3 mg PO QHS PRN PRN PRN Reason: INSOMNIA Methadone HCl () 2.5 mg PO BID [facility] Last Admin: 09/09/19 22:13 Dose: 2.5 mg Documented by: Metoprolol Tartrate (Lopressor (Beta Emmanuel)) 50 mg PO BID [facility] Last Admin: 09/09/19 22:13 Dose: 50 mg Documented by: Multivit/Ca Carb/B Cmplx/FA/Prenat (Nephrocaps, Renaphro) 1 capsule PO DAILY [facility] Last Admin: 09/09/19 11:13 Dose: Not Given Documented by: Multivitamins/Minerals (Healthy Eyes ([facility])) 1 capsule PO DAILY [facility] Last Admin: 09/09/19 11:14 Dose: Not Given Documented by: Ondansetron HCl (Zofran) 4 mg IV Q6H PRN PRN PRN Reason: NAUSEA/VOMITING Oxycodone HCl (Oxyir) 5 mg PO Q6H PRN PRN PRN Reason: Pain Score 6-10/10 Last Admin: 09/10/19 00:00 Dose: 5 mg Documented by: Pantoprazole Sodium (Protonix) 40 mg PO DAILY [facility] Last Admin: 09/09/19 11:13 Dose: Not Given Documented by: Senna/Docusate Sodium (Senokot-S, Amanda-Colace) 2 tablet PO BID PRN PRN PRN Reason: Constipation Sertraline HCl (Zoloft) 25 mg PO DAILY [facility] Last Admin: 09/09/19 11:12 Dose: Not Given Documented by: Sevelamer Carbonate (Renvela) 2,400 mg PO TIDCM [facility] Last Admin: 09/09/19 17:07 Dose: 2,400 mg Documented by: Sodium Chloride () 10 - 40 ml IV UD PRN PRN Reason: SALINE FLUSH Last Admin: 09/09/19 08:42 Dose: 10 ml Documented by: Trazodone HCl (Desyrel) 50 mg PO QHS [facility] Last Admin: 09/09/19 22:13 Dose: 50 mg Documented by: Medical Necessity - Tobacco Use Smoking Status: Never smoker Assessment/Plan All Active Problems (Last Reviewed 09/08/19 @ 23:[address] Eze Rivera MD) Diabetic foot ulcer (Acute) Diabetic foot infection (Acute) Patient is a 49-year-old gentleman with multiple comorbidities including end- stage renal disease on hemodialysis presented with increasing malodorous discharge from the left foot 1. Diabetic foot ulcer infection of the left fifth metatarsal area ?admitted to regular nursing floor started on broad-spectrum antibiotic therapy with vancomycin and Zosyn. As part of patient's evaluation MRSA screen was ordered MRI ordered to rule out osteomyelitis and consultation placed to podiatry. Plan is for patient to undergo intervention -09/10/2019:Patient underwent Debridement of all nonviable, infected, necrotic soft tissue and bone from left foot w/ partial 5th ray amputation Dr. Shipley with podiatry on 09/09/2019. Cultures still pending wound was however MRSA positive per PCR. Was seen in consultation by infectious disease Dr. Wallace's notes and recommendations reviewed. 2. Chronic hypoxic respiratory failure ?Patient is on baseline home O2 3. End-stage renal disease ?Patient is on hemodialysis on Tuesdays and Saturdays consult placed with Dr. Gregorio for dialysis orders. Ordered serial BMPs for monitoring 4. Obstructive sleep apnea ?Patient is on BiPAP at night plan is to continue 5. Chronic heart failure with preserved ejection fraction ?Echo obtained on 03/16/2019 demonstrated EF of 60%. Patient currently compensated 6. Essential hypertension ?Blood pressure controlled continue with home medications 7. Dyslipidemia ?Patient is on atorvastatin did continue 8. Morbid obesity with BMI of 38 ?Weight loss advised 9. Diabetes mellitus type 2 ?With complications including diabetic nephropathy (end-stage renal disease); Did continue with home insulin regimen in addition to Accu-Cheks before meals and at bedtime with sliding scale coverage 10. Anemia secondary to anemia of ESRD ?Monitoring H&H with plans to transfuse if hemoglobin falls below 7 or patient becomes symptomatic 11. GERD ?Patient on PPI 12. DVT prophylaxis ?SC heparin Inpatient E&M: 72332 Subs Hosp L2
--- NOTE | 2019-09-10 09:03 | NURSING ---
WOUND NURSE IN TO CHANGE PT'S L FOOT DRESSING. LARGE AMOUNT BLEEDING OCCURRED AFTER REMOVING OLD DRSG. WOUND NURSE HELD PRESSURE ON SITE WHILE THIS NURSE NOTIFIED DR RENE OF SAME. MS ORDERED TO PLACE SURGICEL ON AREA. SURGICEL & MULTIPLE 4X4s/ABDS APPLIED ALONG WITH ERICKA WRAP PER WOUND NURSE.. WILL MONITOR.
--- NOTE | 2019-09-10 09:06 | NURSING ---
Was asked to see patient for wounds to bilateral feet. pt is POD#1 s/p debridement of the 5th toe and 5th met head with partial 5th ray amputation. consult was placed by Dr Shipley. gently removed the dressing from the left foot. there was copious amounts of bloody drainage noted on all the layers of wraps to the left foot. there were 2 layers of kerlix and ERICKA wraps and multiple layers of ABD pads and kerlix on top of those. the bloody drainage was through all layers of dressings. soaked packing with NS prior to removal. blood spurting from wound noted. pressure was held for approx 20 minutes. still moderate bleeding noted. Dr Shipley was paged by AMIRAH Cronelius. orders to place surgicel into the wound and apply a pressure dressing. was unable to visualize the wound d/t the amount of bleeding at this time. placed surgicel into the wound bed, covered with multiple 4x4's, ABD pads, and 2 layers of kerlix. applied 2 layers of ERICKA wraps as well. leg elevated up on pillows. instructed patient to keep leg elevated at all times. Dr Shipley to assess later today. will monitor bleeding. aware to notify nursing as well if breakthrough drainage noted.
[2019-09-10] MEDS: Fluticasone 0.05% 1 SPRAY NASAL.SRY NASAL (09:27)
[2019-09-10] MEDS: SEVELAMER CARBONATE 800 MG TABLET 2400 MG PO ×3 (09:27→18:15)
[2019-09-10] MEDS: Sertraline 50 MG Tablet 25 MG PO (09:28)
[2019-09-10] MEDS: oxyCODONE 5 MG Tablet PO ×4 (09:28→23:09)
[2019-09-10] MEDS: Multivitamin (Healthy Eyes) Capsule 1 CAP PO (09:28)
[2019-09-10] MEDS: Pantoprazole Sodium 40 MG Tablet PO (09:28)
[2019-09-10] MEDS: Folic Acid/Vitamin B Comp W-C 1 Capsule 1 CAP PO (09:28)
[2019-09-10] MEDS: Ondansetron 4 MG/2 ML Vial IV ×2 (10:15→23:05)
[2019-09-10] MEDS: 0.9% Saline Lock 10 ML Syringe IV ×2 (10:15→23:05)
--- NOTE | 2019-09-10 10:26 | PN.ID_ITS ---
Patient Problems: Active and Suspected Problems (Last Reviewed 09/08/19 @ 23:[address] Eze Rivera MD) Diabetic foot ulcer (Acute) Diabetic foot infection (Acute) Subjective: Feeling ok. Some bleeding from foot this AM. No fever, no n/v/d. - Physical Exam Vitals/I&O's: Vital Signs Temp Pulse Resp BP Pulse Ox 98.3 F 62 16 165/75 H 96 09/10/19 10:11 09/10/19 10:11 09/10/19 10:11 09/10/19 10:11 09/10/19 10:11 Oxygen Flow Rate (L/min) 3 Oxygen Delivery Method Room Air Weight: 110.1 kg Body Mass Index (BMI) 38.0 Finger Stick Blood Glucose 410 Intake and Output for Last 24 Hours 09/08/19 09/09/19 09/10/19 23:59 23:59 23:59 Intake Total 420 / 420 50 / 50 Output Total 200 / 200 125 / 125 Balance 220 / 220 -75 / -75 General: Alert, Cooperative, No apparent distress Lungs: Clear to auscultation, Normal air movement Cardiovascular: Regular rate, Regular Rhythm Abdomen: Soft, Non Tender, Non-Distended, Obese Skin: Ulcer/ Wound - foot wrapped Microbiology Past 72 Hours 09/08/19 19:45 Wound - Left Foot Gram Stain - Final 09/08/19 19:45 Wound - Left Foot Wound Culture - Preliminary Mixed Gram Positive Organisms 09/09/19 12:44 Bone - Left Foot Gram Stain - Final 09/09/19 12:44 Bone - Left Foot Gram Stain - Final Laboratory Results 09/09/19 11:17: POC Glucose 224 H 09/09/19 13:43: POC Glucose 208 H 09/09/19 17:05: POC Glucose 242 H 09/09/19 22:27: POC Glucose 286 H 09/10/19 02:14: POC Glucose 299 H 09/10/19 05:42: POC Glucose 257 H 09/10/19 05:50: Sodium 136, Potassium 4.5, Chloride 99, Carbon Dioxide 26.0, BUN 62 H, Creatinine 7.34 H, Estim Creat Clear Calc 11.13, Est GFR (MDRD) Af Amer 10 L, Est GFR (MDRD) Non-Af 8 L, BUN/Creatinine Ratio 8.4 L, Glucose 269 H, Calcium 8.3 L, Phosphorus 6.3 H, Albumin 2.4 L Current Medications Acetaminophen (Tylenol) 650 mg PO Q6H PRN PRN PRN Reason: Pain Score 1-10/Temp > 100.7 F Last Admin: 09/09/19 13:50 Dose: 650 mg Documented by: Albuterol/Ipratropium (Duoneb) 3 ml INHALATION Q4H.RT PRN PRN Reason: sob/wheezing Amlodipine Besylate (Norvasc) 10 mg PO DAILY [facility] Last Admin: 09/09/19 11:13 Dose: Not Given Documented by: Atorvastatin Calcium (Lipitor) 20 mg PO QHS [facility] Last Admin: 09/09/19 22:18 Dose: 20 mg Documented by: Cyclobenzaprine HCl (Flexeril) 10 mg PO TID PRN PRN PRN Reason: SPASMS Fluticasone Propionate (Flonase Nasal [place]) 1 spray NASAL DAILY [facility] Last Admin: 09/10/19 09:27 Dose: 1 spray Documented by: Furosemide (Lasix) 80 mg PO BIDLX [facility] Last Admin: 09/09/19 17:48 Dose: 80 mg Documented by: Glucagon () 1 mg IM .X1 PRN PRN Reason: Hypoglycemia Heparin Sodium (Porcine) (Heparin Na) 5,000 unit SC Q8 [facility] Last Admin: 09/10/19 05:43 Dose: 5,000 unit Documented by: Hydralazine HCl (Apresoline Iv) 5 mg IV Q4H PRN PRN PRN Reason: SBP > 160 Last Admin: 09/09/19 22:24 Dose: 5 mg Documented by: Vancomycin IV Pharmacy to Dose (1 ea/ Sodium Chloride) 500 mls @ 250 mls/hr IV PRN PRN; Protocol Piperacillin Sod/Tazobactam (Sod 3.375 gm/ Sodium Chloride) 50 mls @ 12.5 mls/hr IV Q12 [facility] Last Admin: 09/10/19 10:15 Dose: 12.5 mls/hr Documented by: Dextrose (Dextrose 10%-Water) 250 mls @ 999 mls/hr IV .Q16M PRN; Protocol PRN Reason: HYPOGLYCEMIA Sodium Chloride () 250 mls @ 15 mls/hr IV .[id number] PRN PRN Reason: Saline Flush Sodium Chloride () 250 mls @ 15 mls/hr IV .[id number] PRN PRN Reason: Additional IVPB Infusion Vancomycin HCl 750 mg/ Sodium (Chloride) 265 mls @ 250 mls/hr IV X1 ONE Stop: 09/10/19 16:03 Insulin Human Lispro (Humalog Fabianopen ([facility])) 0 unit SC Q4 [facility]; Protocol Last Admin: 09/10/19 10:22 Dose: 6 u Documented by: Isosorbide Mononitrate (Imdur) 30 mg PO DAILY [facility] Last Admin: 09/09/19 11:13 Dose: Not Given Documented by: Melatonin (Melatonin) 3 mg PO QHS PRN PRN PRN Reason: INSOMNIA Methadone HCl () 2.5 mg PO BID [facility] Last Admin: 09/10/19 09:28 Dose: 2.5 mg Documented by: Metoprolol Tartrate (Lopressor (Beta Emmanuel)) 50 mg PO BID [facility] Last Admin: 09/09/19 22:13 Dose: 50 mg Documented by: Multivit/Ca Carb/B Cmplx/FA/Prenat (Nephrocaps, Renaphro) 1 capsule PO DAILY [facility] Last Admin: 09/10/19 09:28 Dose: 1 capsule Documented by: Multivitamins/Minerals (Healthy Eyes ([facility])) 1 capsule PO DAILY [facility] Last Admin: 09/10/19 09:28 Dose: 1 capsule Documented by: Ondansetron HCl (Zofran) 4 mg IV Q6H PRN PRN PRN Reason: NAUSEA/VOMITING Last Admin: 09/10/19 10:15 Dose: 4 mg Documented by: Oxycodone HCl (Oxyir) 5 mg PO Q6H PRN PRN PRN Reason: Pain Score 6-10/10 Last Admin: 09/10/19 09:28 Dose: 5 mg Documented by: Pantoprazole Sodium (Protonix) 40 mg PO DAILY [facility] Last Admin: 09/10/19 09:28 Dose: 40 mg Documented by: Senna/Docusate Sodium (Senokot-S, Amanda-Colace) 2 tablet PO BID PRN PRN PRN Reason: Constipation Sertraline HCl (Zoloft) 25 mg PO DAILY [facility] Last Admin: 09/10/19 09:28 Dose: 25 mg Documented by: Sevelamer Carbonate (Renvela) 2,400 mg PO TIDCM [facility] Last Admin: 09/10/19 09:27 Dose: 2,400 mg Documented by: Sodium Chloride () 10 - 40 ml IV UD PRN PRN Reason: SALINE FLUSH Last Admin: 09/10/19 10:15 Dose: 10 ml Documented by: Trazodone HCl (Desyrel) 50 mg PO QHS [facility] Last Admin: 09/09/19 22:13 Dose: 50 mg Documented by: Medical Necessity - Tobacco Use Smoking Status: Never smoker Route of nutrition/ use of supplements: [] Nutritional Intake: [] IV Site: [] Kuo Catheter: [] - Assessment/Plan Antibiotics: [] Assessment/Plan: [] Active and Suspected Problems (Last Reviewed 09/08/19 @ 23:[address] Eze Rivera MD) Diabetic foot ulcer (Acute) Diabetic foot infection (Acute) L foot DM osteo - s/p OR 09/[address] Shipley. Surg cx pending, had been on keflex for a few days prior to admit. Cont vanc/zosyn. MRSA pcr (+). Will follow
[2019-09-10 10:36] LABS: Bedside Glucose 260 mg/dL (70-110)
--- NOTE | 2019-09-10 11:21 | PCM.PROGNOTE ---
Patient Problems: Active and Suspected Problems (Last Reviewed 09/08/19 @ 23:[address] Eze Rivera MD) Diabetic foot ulcer (Acute) Diabetic foot infection (Acute) Subjective: Patient was seen today for follow up on left foot s/p debridement on 09/09/19, had bleeding with dressing change this morning, surgicel placed and new dressing - so far no strikethrough. He has no complaints. No complaints of fever, chills, nausea or vomiting. He is also being seen for right foot wound. His is present with him at bedside. - Physical Exam Vitals/I&O's: Vital Signs Temp Pulse Resp BP Pulse Ox 98.3 F 62 16 165/75 H 96 09/10/19 10:11 09/10/19 10:26 09/10/19 10:11 09/10/19 10:09/10/19 10:11 Oxygen Flow Rate (L/min) 3 Oxygen Delivery Method Room Air Weight: 110.1 kg Body Mass Index (BMI) 38.0 Finger Stick Blood Glucose 410 Intake and Output for Last 24 Hours 09/08/19 09/09/19 09/10/19 23:59 23:59 23:59 Intake Total 420 / 420 50 / 50 Output Total 200 / 200 125 / 125 Balance 220 / 220 -75 / -75 General: Alert, Oriented x3, Cooperative, No apparent distress Extremities: Capillary Refill Less than 3 Seconds, No Calf Tenderness, - - Dressing left foot clean, dry and intact with no strikethrough. Right foot with some superficial small lateral foot ulcerations with n evidence of infection. Musculoskeletal: No Tenderness to Palpation of Joints or Extremities Microbiology Past 72 Hours 09/09/19 12:44 Bone - Left Foot Gram Stain - Final 09/09/19 12:44 Bone - Left Foot Wound Culture - Preliminary No growth-Final to follow 09/09/19 12:44 Bone - Left Foot Gram Stain - Final 09/09/19 12:44 Bone - Left Foot Wound Culture - Preliminary No growth-Final to follow 09/08/19 19:45 Wound - Left Foot Gram Stain - Final 09/08/19 19:45 Wound - Left Foot Wound Culture - Preliminary Mixed Gram Positive Organisms Laboratory Results 09/09/19 11:17: POC Glucose 224 H 09/09/19 13:43: POC Glucose 208 H 09/09/19 17:05: POC Glucose 242 H 09/09/19 22:27: POC Glucose 286 H 09/10/19 02:14: POC Glucose 299 H 09/10/19 05:42: POC Glucose 257 H 09/10/19 05:50: Sodium 136, Potassium 4.5, Chloride 99, Carbon Dioxide 26.0, BUN 62 H, Creatinine 7.34 H, Estim Creat Clear Calc 11.13, Est GFR (MDRD) Af Amer 10 L, Est GFR (MDRD) Non-Af 8 L, BUN/Creatinine Ratio 8.4 L, Glucose 269 H, Calcium 8.3 L, Phosphorus 6.3 H, Albumin 2.4 L 09/10/19 10:18: POC Glucose 260 H Current Medications Acetaminophen (Tylenol) 650 mg PO Q6H PRN PRN PRN Reason: Pain Score 1-10/Temp > 100.7 F Last Admin: 09/09/19 13:50 Dose: 650 mg Documented by: Albuterol/Ipratropium (Duoneb) 3 ml INHALATION Q4H.RT PRN PRN Reason: sob/wheezing Amlodipine Besylate (Norvasc) 10 mg PO DAILY [facility] Last Admin: 09/10/19 10:26 Dose: Not Given Documented by: Atorvastatin Calcium (Lipitor) 20 mg PO QHS [facility] Last Admin: 09/09/19 22:18 Dose: 20 mg Documented by: Cyclobenzaprine HCl (Flexeril) 10 mg PO TID PRN PRN PRN Reason: SPASMS Fluticasone Propionate (Flonase Nasal [place]) 1 spray NASAL DAILY [facility] Last Admin: 09/10/19 09:27 Dose: 1 spray Documented by: Furosemide (Lasix) 80 mg PO BIDLX [facility] Last Admin: 09/10/19 10:26 Dose: Not Given Documented by: Glucagon () 1 mg IM .X1 PRN PRN Reason: Hypoglycemia Heparin Sodium (Porcine) (Heparin Na) 5,000 unit SC Q8 [facility] Last Admin: 09/10/19 05:43 Dose: 5,000 unit Documented by: Hydralazine HCl (Apresoline Iv) 5 mg IV Q4H PRN PRN PRN Reason: SBP > 160 Last Admin: 09/09/19 22:24 Dose: 5 mg Documented by: Vancomycin IV Pharmacy to Dose (1 ea/ Sodium Chloride) 500 mls @ 250 mls/hr IV PRN PRN; Protocol Piperacillin Sod/Tazobactam (Sod 3.375 gm/ Sodium Chloride) 50 mls @ 12.5 mls/hr IV Q12 [facility] Last Admin: 09/10/19 10:15 Dose: 12.5 mls/hr Documented by: Dextrose (Dextrose 10%-Water) 250 mls @ 999 mls/hr IV .Q16M PRN; Protocol PRN Reason: HYPOGLYCEMIA Sodium Chloride () 250 mls @ 15 mls/hr IV .[id number] PRN PRN Reason: Saline Flush Sodium Chloride () 250 mls @ 15 mls/hr IV .[id number] PRN PRN Reason: Additional IVPB Infusion Vancomycin HCl 750 mg/ Sodium (Chloride) 265 mls @ 250 mls/hr IV X1 ONE Stop: 09/10/19 16:03 Insulin Human Lispro (Humalog Brittneyikpen ([facility])) 0 unit SC Q4 [facility]; Protocol Last Admin: 09/10/19 10:22 Dose: 6 u Documented by: Isosorbide Mononitrate (Imdur) 30 mg PO DAILY [facility] Last Admin: 09/10/19 10:25 Dose: Not Given Documented by: Melatonin (Melatonin) 3 mg PO QHS PRN PRN PRN Reason: INSOMNIA Methadone HCl () 2.5 mg PO BID [facility] Last Admin: 09/10/19 09:28 Dose: 2.5 mg Documented by: Metoprolol Tartrate (Lopressor (Beta Emmanuel)) 50 mg PO BID [facility] Last Admin: 09/10/19 10:26 Dose: Not Given Documented by: Multivit/Ca Carb/B Cmplx/FA/Prenat (Nephrocaps, Renaphro) 1 capsule PO DAILY [facility] Last Admin: 09/10/19 09:28 Dose: 1 capsule Documented by: Multivitamins/Minerals (Healthy Eyes ([facility])) 1 capsule PO DAILY [facility] Last Admin: 09/10/19 09:28 Dose: 1 capsule Documented by: Ondansetron HCl (Zofran) 4 mg IV Q6H PRN PRN PRN Reason: NAUSEA/VOMITING Last Admin: 09/10/19 10:15 Dose: 4 mg Documented by: Oxycodone HCl (Oxyir) 5 mg PO Q6H PRN PRN PRN Reason: Pain Score 6-10/10 Last Admin: 09/10/19 09:28 Dose: 5 mg Documented by: Pantoprazole Sodium (Protonix) 40 mg PO DAILY [facility] Last Admin: 09/10/19 09:28 Dose: 40 mg Documented by: Senna/Docusate Sodium (Senokot-S, Amanda-Colace) 2 tablet PO BID PRN PRN PRN Reason: Constipation Sertraline HCl (Zoloft) 25 mg PO DAILY [facility] Last Admin: 09/10/19 09:28 Dose: 25 mg Documented by: Sevelamer Carbonate (Renvela) 2,400 mg PO TIDCM [facility] Last Admin: 09/10/19 09:27 Dose: 2,400 mg Documented by: Sodium Chloride () 10 - 40 ml IV UD PRN PRN Reason: SALINE FLUSH Last Admin: 09/10/19 10:15 Dose: 10 ml Documented by: Trazodone HCl (Desyrel) 50 mg PO QHS [facility] Last Admin: 09/09/19 22:13 Dose: 50 mg Documented by: Medical Necessity - Tobacco Use Smoking Status: Never smoker Assessment/Plan All Active Problems (Last Reviewed 09/08/19 @ 23:[address] 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 Diabetes with neuropathy Re-evaluation performed. Left dressing to the left foot clean, dry and intact - there is no strikethrough at this time. Due to bleeding this morning will leave intact. Eventually patient will need wound Vac. Due to bleeding this morning ordered labs - CBC was ordered. No weightbearing left foot, keep elevated at all times. Continue to follow cultures - finals pending. Patient on IV antibiotics per ID service/Dr. Wallace. Right foot: healing well. Cleansed wounds with normal saline solution, applied gauze/kerlix dressing - change daily. Diabetes and other medical management per medicine team. Podiatry will continue to follow.
[2019-09-10 11:58] LABS: Absolute Lymphocyte Count 0.94 X10^3/uL (0.83-4.51); Absolute Neutrophil Count 6.5 X10^3/uL (2.0-7.7); Basophil# 0.06 X10^3/uL; Basophil% 0.7 % (0-1); Eosinophil# 0.36 X10^3/uL; Eosinophils% 4.2 % (0-5); Hematocrit 27.1 % (40-54); Hemoglobin 8.5 g/dL (13.0-16.5); Lymphocyte # 0.94 X10^3/ul (4.0); Lymphocyte % 10.8 % (19-41); Mean Corp Hgb Conc 31.4 g/dL (32-36); Mean Corpuscular Hgb 28.3 pg (27.0-32.0); Mean Corpuscular Volume 90.3 fL (80-94); Mean Platelet Vol. 9.3 fl (6.2-12.0); Monocyte% 8.1 % (0-10); NRBC Flagged by Analyzer 0 % (0-5); Neutrophil % 74.9 % (47-70); Platelet Count 230 K/mm3 (150-450); RBC Distribution Width CV 15.2 % (11.6-14.6); RBC Distribution Width SD 49.5 fl (35.1-43.9); White Blood Count 8.7 K/mm3 (4.4-11.0)
[2019-09-10] MEDS: Acetaminophen 325 MG Tablet 650 MG PO (12:52)
--- NOTE | 2019-09-10 12:52 | CASEMGMT ---
Case Management Readmission note: Admit 08/12-08/14/2019 for Acute exacerbation HF, Admit 08/08-08/10/2019 for Acute exacerbation DHF, 08/06-08/08/2019 for AoC DHF. Patient active with [facility] for SN/PT/OT/Aide. Active with Palliative care with [facility]. Has [facility] home, case nestor Minor. On HD at [facility] T//Mon, start time 5:50am. Utilizes [employer] transportation. Did F/u with Dr Washburn on 08/20/2019, has an upcoming F/u appointment with Miriam Mix NP on 10/07/2019. Charity has been doing Wound care, plan for DC with Wound Vac for [facility] to manage with . Plan to return home with [facility]. DME: Nebulizer, Home O2 3L continuous, POC-full, Bipap- All with [employer]. 2WW, Rollator, Cane, Crutches, Hospital bed, portable WC, shower chair, shower bench-does not use. Ambulates with Cane or walker. HPOA on file- Charity Madden (last name change Jg). Dima Flores RNCM
--- NOTE | 2019-09-10 13:00 | NURSING ---
Dr Shipley had been and reassessed the left foot. according to progress note, dressing was left in place d/t the amount of bleeding this am. dressing remains D&I at this time. Dr Shipley also changed the dressing to the right foot as well. will continue to follow.
--- NOTE | 2019-09-10 13:20 | NURSING ---
PT DANGLING ON SIDE OF BED EATING LUNCH. REMINDED PT NEED TO KEEP LLE ELEVATED. PT STATES I CAN'T EAT LAYING DOWN. EXPLAINED IMPORTANT TO KEEP ELEVATED DUE TO EXTENSIVE BLEEDING THIS AM, PT NONCOMPLIANT ABOUT KEEPING LLE ELEVATED.
[2019-09-10 14:35] LABS: Bedside Glucose 270 mg/dL (70-110)
--- NOTE | 2019-09-10 14:42 | PN.RENAL_ITS ---
Patient Problems: Active and Suspected Problems (Last Reviewed 09/08/19 @ 23:[address] Eze Rivera MD) Diabetic foot ulcer (Acute) Diabetic foot infection (Acute) Subjective: denies SOB, dialysis today - Physical Exam Vitals/I&O's: Vital Signs Temp Pulse Resp BP Pulse Ox 98.3 F 62 16 165/75 H 96 09/10/19 10:11 09/10/19 10:26 09/10/19 10:11 09/10/19 10:26 09/10/19 10:11 Oxygen Flow Rate (L/min) 3 Oxygen Delivery Method Room Air Weight: 110.1 kg Body Mass Index (BMI) 38.0 Finger Stick Blood Glucose 410 Intake and Output for Last 24 Hours 09/08/19 09/09/19 09/10/19 23:59 23:59 23:59 Intake Total 420 / 420 760 / 760 Output Total 200 / 200 325 / 325 Balance 220 / 220 435 / 435 General: Alert, Oriented x3, Cooperative, No apparent distress Lungs: Clear to auscultation Cardiovascular: Regular rate Abdomen: Bowel Sounds Present, Soft, Non Tender, Obese Extremities: Edema - mild Musculoskeletal: - - left foot wrapped Psych/Mental Status: Normal Affect, Appropriate Microbiology Past 72 Hours 09/09/19 12:44 Bone - Left Foot Gram Stain - Final 09/09/19 12:44 Bone - Left Foot Wound Culture - Preliminary No growth-Final to follow 09/09/19 12:44 Bone - Left Foot Gram Stain - Final 09/09/19 12:44 Bone - Left Foot Wound Culture - Preliminary No growth-Final to follow 09/08/19 19:45 Wound - Left Foot Gram Stain - Final 09/08/19 19:45 Wound - Left Foot Wound Culture - Preliminary Mixed Gram Positive Organisms Laboratory Results 09/09/19 17:05: POC Glucose 242 H 09/09/19 22:27: POC Glucose 286 H 09/10/19 02:14: POC Glucose 299 H 09/10/19 05:42: POC Glucose 257 H 09/10/19 05:50: Sodium 136, Potassium 4.5, Chloride 99, Carbon Dioxide 26.0, BUN 62 H, Creatinine 7.34 H, Estim Creat Clear Calc 11.13, Est GFR (MDRD) Af Amer 10 L, Est GFR (MDRD) Non-Af 8 L, BUN/Creatinine Ratio 8.4 L, Glucose 269 H, Calcium 8.3 L, Phosphorus 6.3 H, Albumin 2.4 L 09/10/19 10:18: POC Glucose 260 H 09/10/19 11:49: WBC 8.7, RBC 3.00 L, Hgb 8.5 L, Hct 27.1 L, MCV 90.3, MCH 28.3, MCHC 31.4 L, RDW Std Deviation 49.5 H, RDW Coeff of Roberto 15.2 H, Plt Count 230, MPV 9.3, Immature Gran % (Auto) 1.300 H, Neut % (Auto) 74.9 H, Lymph % (Auto) 10.8 L, Gilchrist % (Auto) 8.1, Eos % (Auto) 4.2, Baso % (Auto) 0.7, Absolute Neuts (auto) 6.5, Absolute Lymphs (auto) 0.94, Nucleated RBC % 0 09/10/19 14:21: POC Glucose 270 H Current Medications Acetaminophen (Tylenol) 650 mg PO Q6H PRN PRN PRN Reason: Pain Score 1-10/Temp > 100.7 F Last Admin: 09/10/19 12:52 Dose: 650 mg Documented by: Albuterol/Ipratropium (Duoneb) 3 ml INHALATION Q4H.RT PRN PRN Reason: sob/wheezing Amlodipine Besylate (Norvasc) 10 mg PO DAILY [facility] Last Admin: 09/10/19 10:26 Dose: Not Given Documented by: Atorvastatin Calcium (Lipitor) 20 mg PO QHS [facility] Last Admin: 09/09/19 22:18 Dose: 20 mg Documented by: Cyclobenzaprine HCl (Flexeril) 10 mg PO TID PRN PRN PRN Reason: SPASMS Fluticasone Propionate (Flonase Nasal [place]) 1 spray NASAL DAILY [facility] Last Admin: 09/10/19 09:27 Dose: 1 spray Documented by: Furosemide (Lasix) 80 mg PO BIDLX [facility] Last Admin: 09/10/19 10:26 Dose: Not Given Documented by: Glucagon () 1 mg IM .X1 PRN PRN Reason: Hypoglycemia Heparin Sodium (Porcine) (Heparin Na) 5,000 unit SC Q8 [facility] Last Admin: 09/10/19 14:24 Dose: 5,000 unit Documented by: Hydralazine HCl (Apresoline Iv) 5 mg IV Q4H PRN PRN PRN Reason: SBP > 160 Last Admin: 09/09/19 22:24 Dose: 5 mg Documented by: Vancomycin IV Pharmacy to Dose (1 ea/ Sodium Chloride) 500 mls @ 250 mls/hr IV PRN PRN; Protocol Piperacillin Sod/Tazobactam (Sod 3.375 gm/ Sodium Chloride) 50 mls @ 12.5 mls/hr IV Q12 [facility] Last Infusion: 09/10/19 14:26 Dose: Infused Documented by: Dextrose (Dextrose 10%-Water) 250 mls @ 999 mls/hr IV .Q16M PRN; Protocol PRN Reason: HYPOGLYCEMIA Sodium Chloride () 250 mls @ 15 mls/hr IV .[id number] PRN PRN Reason: Saline Flush Sodium Chloride () 250 mls @ 15 mls/hr IV .[id number] PRN PRN Reason: Additional IVPB Infusion Vancomycin HCl 750 mg/ Sodium (Chloride) 265 mls @ 250 mls/hr IV X1 ONE Stop: 09/10/19 16:03 Insulin Human Lispro (Humalog Kwikpen (Bk)) 0 unit SC Q4 [facility]; Protocol Last Admin: 09/10/19 14:23 Dose: 6 u Documented by: Isosorbide Mononitrate (Imdur) 30 mg PO DAILY [facility] Last Admin: 09/10/19 10:25 Dose: Not Given Documented by: Melatonin (Melatonin) 3 mg PO QHS PRN PRN PRN Reason: INSOMNIA Methadone HCl () 2.5 mg PO BID [facility] Last Admin: 09/10/19 09:28 Dose: 2.5 mg Documented by: Metoprolol Tartrate (Lopressor (Beta Emmanuel)) 50 mg PO BID [facility] Last Admin: 09/10/19 10:26 Dose: Not Given Documented by: Multivit/Ca Carb/B Cmplx/FA/Prenat (Nephrocaps, Renaphro) 1 capsule PO DAILY [facility] Last Admin: 09/10/19 09:28 Dose: 1 capsule Documented by: Multivitamins/Minerals (Healthy Eyes ([facility])) 1 capsule PO DAILY [facility] Last Admin: 09/10/19 09:28 Dose: 1 capsule Documented by: Ondansetron HCl (Zofran) 4 mg IV Q6H PRN PRN PRN Reason: NAUSEA/VOMITING Last Admin: 09/10/19 10:15 Dose: 4 mg Documented by: Oxycodone HCl (Oxyir) 5 mg PO Q6H PRN PRN PRN Reason: Pain Score 6-10/10 Last Admin: 09/10/19 09:28 Dose: 5 mg Documented by: Pantoprazole Sodium (Protonix) 40 mg PO DAILY [facility] Last Admin: 09/10/19 09:28 Dose: 40 mg Documented by: Senna/Docusate Sodium (Senokot-S, Amanda-Colace) 2 tablet PO BID PRN PRN PRN Reason: Constipation Sertraline HCl (Zoloft) 25 mg PO DAILY [facility] Last Admin: 09/10/19 09:28 Dose: 25 mg Documented by: Sevelamer Carbonate (Renvela) 2,400 mg PO TIDCM [facility] Last Admin: 09/10/19 12:53 Dose: 2,400 mg Documented by: Sodium Chloride () 10 - 40 ml IV UD PRN PRN Reason: SALINE FLUSH Last Admin: 09/10/19 10:15 Dose: 10 ml Documented by: Trazodone HCl (Desyrel) 50 mg PO QHS [facility] Last Admin: 09/09/19 22:13 Dose: 50 mg Documented by: Medical Necessity - Tobacco Use Smoking Status: Never smoker Assessment/Plan All Active Problems (Last Reviewed 09/08/19 @ 23:[address] Eze Rivera MD) Diabetic foot ulcer (Acute) Diabetic foot infection (Acute) 1. End-stage renal disease hemodialysis next today 2. Diabetic foot ulcer left foot status post fifth toe amputation today. 3. Type II noncompliant 4. hypertension with stable blood pressures 5. Morbid obesity 6. Anemia hemoglobin stable, TERESA on dialysis 7. SELMA on BiPAP at home.
[2019-09-10 18:31] LABS: Bedside Glucose 194 mg/dL (70-110)
--- NOTE | 2019-09-10 22:39 | DIALYSIS ---
hemodialysis x 4 hours. -4000ml off. Stable t/o. hemostasis obtained x 5mins. Report to Annabella Sargent RN at bedside. See flowsheet for further details.
[2019-09-10 22:56] LABS: Bedside Glucose 172 mg/dL (70-110)
[2019-09-10] MEDS: Atorvastatin Calcium 20 MG Tablet PO (23:09)
[2019-09-10] MEDS: traZODone 50 MG Tablet PO (23:09)
[2019-09-10] MEDS: Metoprolol Tartrate 50 MG Tablet PO (23:19)
--- NOTE | 2019-09-10 23:58 | NURSING ---
Pt receiving dialysis at start of shift. Dialysis finished about 2244. Vancomycin ordered following dialysis, started about 2330. Dose of Zosyn to follow. Checked with pharmacy that vanc trough to be drawn on 09/11 at 0600 does not need adjusted.
[2019-09-11] VITALS (8 sets, daily range): BP systolic 145–166; BP diastolic 71–88; PULSE 60–69; RESP 16–22; TEMP 36.5–37.2; O2SAT 97–100
[2019-09-11] MEDS: Insulin Lispro 100 UNIT/ML INSULN.PEN SC ×6 (01:19→22:18)
[2019-09-11 01:25] LABS: Bedside Glucose 225 mg/dL (70-110)
[2019-09-11] MEDS: Heparin Injection (Vial) 5,000 UNIT/ML VIAL 5000 UNIT SC ×3 (06:10→22:18)
[2019-09-11] MEDS: 0.9% Saline Lock 10 ML Syringe IV ×6 (06:12→23:17)
[2019-09-11 06:21] LABS: Bedside Glucose 183 mg/dL (70-110)
[2019-09-11 06:32] LABS: Hematocrit 28.6 % (40-54); Hemoglobin 8.8 g/dL (13.0-16.5); Mean Corp Hgb Conc 30.8 g/dL (32-36); Mean Corpuscular Hgb 27.8 pg (27.0-32.0); Mean Corpuscular Volume 90.5 fL (80-94); Mean Platelet Vol. 9.6 fl (6.2-12.0); Platelet Count 269 K/mm3 (150-450); RBC Distribution Width CV 14.9 % (11.6-14.6); RBC Distribution Width SD 48.5 fl (35.1-43.9); Red Blood Count 3.16 M/mm3 (4.6-6.2); White Blood Count 9.7 K/mm3 (4.4-11.0)
--- NOTE | 2019-09-11 06:43 | PN_ITS ---
Patient Problems: Active and Suspected Problems (Last Reviewed 09/08/19 @ 23:[address] Eze Rivera MD) Diabetic foot ulcer (Acute) Diabetic foot infection (Acute) Subjective: Patient was seen this morning for follow up on left foot. He has no complaints, no complaints of fever, chills, nausea or vomiting. He is resting comfortably in bed w/ bedside. - Physical Exam Vitals/I&O's: Vital Signs Temp Pulse Resp BP Pulse Ox 98.4 F 69 17 166/88 H 99 09/11/19 05:04 09/11/19 05:04 09/11/19 05:04 09/11/19 05:04 09/11/19 05:04 Oxygen Flow Rate (L/min) 4 Oxygen Delivery Method Nasal Cannula Weight: 110.1 kg Body Mass Index (BMI) 38.0 Finger Stick Blood Glucose 410 Intake and Output for Last 24 Hours 09/09/19 09/10/19 09/11/19 23:59 23:59 23:59 Intake Total 420 / 420 1100 / 1100 1255 / 1255 Output Total 200 / 200 4450 / 4450 250 / 250 Balance 220 / 220 -3350 / -3350 1005 / 1005 General: Alert, Oriented x3, Cooperative, No apparent distress Extremities: Capillary Refill Less than 3 Seconds, No Calf Tenderness, - - s/p left foot 5th ray debridement/partial amp, tissues healthy and viable, margins viable, there is still some bleeding from the proximal aspect, no maloder, no necrosis, no fluctuance, no streaking, no crepitus. No new ulcerations or areas of breakdown left foot/ankle. Microbiology Past 72 Hours 09/09/19 12:44 Bone - Left Foot Gram Stain - Final 09/09/19 12:44 Bone - Left Foot Wound Culture - Preliminary No growth-Final to follow 09/09/19 12:44 Bone - Left Foot Gram Stain - Final 09/09/19 12:44 Bone - Left Foot Wound Culture - Preliminary No growth-Final to follow 09/08/19 19:45 Wound - Left Foot Gram Stain - Final 09/08/19 19:45 Wound - Left Foot Wound Culture - Preliminary Mixed Gram Positive Organisms Laboratory Results 09/10/19 05:50: Sodium 136, Potassium 4.5, Chloride 99, Carbon Dioxide 26.0, BUN 62 H, Creatinine 7.34 H, Estim Creat Clear Calc 11.13, Est GFR (MDRD) Af Amer 10 L, Est GFR (MDRD) Non-Af 8 L, BUN/Creatinine Ratio 8.4 L, Glucose 269 H, Calcium 8.3 L, Phosphorus 6.3 H, Albumin 2.4 L 09/10/19 10:18: POC Glucose 260 H 09/10/19 11:49: WBC 8.7, RBC 3.00 L, Hgb 8.5 L, Hct 27.1 L, MCV 90.3, MCH 28.3, MCHC 31.4 L, RDW Std Deviation 49.5 H, RDW Coeff of Roberto 15.2 H, Plt Count 230, MPV 9.3, Immature Gran % (Auto) 1.300 H, Neut % (Auto) 74.9 H, Lymph % (Auto) 10.8 L, [place] % (Auto) 8.1, Eos % (Auto) 4.2, Baso % (Auto) 0.7, Absolute Neuts (auto) 6.5, Absolute Lymphs (auto) 0.94, Nucleated RBC % 0 09/10/19 14:21: POC Glucose 270 H 09/10/19 18:18: POC Glucose 194 H 09/10/19 22:42: POC Glucose 172 H 09/11/19 01:15: POC Glucose 225 H 09/11/19 05:20: WBC 9.7, RBC 3.16 L, Hgb 8.8 L, Hct 28.6 L, MCV 90.5, MCH 27.8, MCHC 30.8 L, RDW Std Deviation 48.5 H, RDW Coeff of Roberto 14.9 H, Plt Count 269, MPV 9.6 09/11/19 05:20: Sodium Pending, Potassium Pending, Chloride Pending, Carbon Dioxide Pending, Anion Gap Pending, BUN Pending, Creatinine Pending, Est GFR (MDRD) Af Amer Pending, Est GFR (MDRD) Non-Af Pending, BUN/Creatinine Ratio Pending, Glucose Pending, Calcium Pending, Magnesium Pending 09/11/19 06:06: POC Glucose 183 H Current Medications Acetaminophen (Tylenol) 650 mg PO Q6H PRN PRN PRN Reason: Pain Score 1-10/Temp > 100.7 F Last Admin: 09/10/19 12:52 Dose: 650 mg Documented by: Albuterol/Ipratropium (Duoneb) 3 ml INHALATION Q4H.RT PRN PRN Reason: sob/wheezing Amlodipine Besylate (Norvasc) 10 mg PO DAILY [facility] Last Admin: 09/10/19 10:26 Dose: Not Given Documented by: Atorvastatin Calcium (Lipitor) 20 mg PO QHS [facility] Last Admin: 09/10/19 23:09 Dose: 20 mg Documented by: Cyclobenzaprine HCl (Flexeril) 10 mg PO TID PRN PRN PRN Reason: SPASMS Fluticasone Propionate (Flonase Nasal [place]) 1 spray NASAL DAILY [facility] Last Admin: 09/10/19 09:27 Dose: 1 spray Documented by: Furosemide (Lasix) 80 mg PO BIDLX [facility] Last Admin: 09/10/19 18:20 Dose: Not Given Documented by: Glucagon () 1 mg IM .X1 PRN PRN Reason: Hypoglycemia Heparin Sodium (Porcine) (Heparin Na) 5,000 unit SC Q8 [facility] Last Admin: 09/11/19 06:10 Dose: 5,000 unit Documented by: Hydralazine HCl (Apresoline Iv) 5 mg IV Q4H PRN PRN PRN Reason: SBP > 160 Last Admin: 09/09/19 22:24 Dose: 5 mg Documented by: Vancomycin IV Pharmacy to Dose (1 ea/ Sodium Chloride) 500 mls @ 250 mls/hr IV PRN PRN; Protocol Piperacillin Sod/Tazobactam (Sod 3.375 gm/ Sodium Chloride) 50 mls @ 12.5 mls/hr IV Q12 [facility] Last Infusion: 09/11/19 05:07 Dose: Infused Documented by: Dextrose (Dextrose 10%-Water) 250 mls @ 999 mls/hr IV .Q16M PRN; Protocol PRN Reason: HYPOGLYCEMIA Sodium Chloride () 250 mls @ 15 mls/hr IV .[id number] PRN PRN Reason: Saline Flush Sodium Chloride () 250 mls @ 15 mls/hr IV .[id number] PRN PRN Reason: Additional IVPB Infusion Insulin Human Lispro (Humalog Kwikpen (Bkc)) 0 unit SC Q4 [facility]; Protocol Last Admin: 09/11/19 06:10 Dose: 2 u Documented by: Isosorbide Mononitrate (Imdur) 30 mg PO DAILY [facility] Last Admin: 09/10/19 10:25 Dose: Not Given Documented by: Melatonin (Melatonin) 3 mg PO QHS PRN PRN PRN Reason: INSOMNIA Methadone HCl () 2.5 mg PO BID [facility] Last Admin: 09/10/19 23:08 Dose: 2.5 mg Documented by: Metoprolol Tartrate (Lopressor (Beta Emmanuel)) 50 mg PO BID [facility] Last Admin: 09/10/19 23:19 Dose: 50 mg Documented by: Multivit/Ca Carb/B Cmplx/FA/Prenat (Nephrocaps, Renaphro) 1 capsule PO DAILY [facility] Last Admin: 09/10/19 09:28 Dose: 1 capsule Documented by: Multivitamins/Minerals (Healthy Eyes (Bkc)) 1 capsule PO DAILY [facility] Last Admin: 09/10/19 09:28 Dose: 1 capsule Documented by: Ondansetron HCl (Zofran) 4 mg IV Q6H PRN PRN PRN Reason: NAUSEA/VOMITING Last Admin: 09/10/19 23:05 Dose: 4 mg Documented by: Oxycodone HCl (Oxyir) 5 mg PO Q6H PRN PRN PRN Reason: Pain Score 6-10/10 Last Admin: 09/10/19 23:09 Dose: 5 mg Documented by: Pantoprazole Sodium (Protonix) 40 mg PO DAILY [facility] Last Admin: 09/10/19 09:28 Dose: 40 mg Documented by: Senna/Docusate Sodium (Senokot-S, Amanda-Colace) 2 tablet PO BID PRN PRN PRN Reason: Constipation Sertraline HCl (Zoloft) 25 mg PO DAILY [facility] Last Admin: 09/10/19 09:28 Dose: 25 mg Documented by: Sevelamer Carbonate (Renvela) 2,400 mg PO TIDCM [facility] Last Admin: 09/10/19 18:15 Dose: 2,400 mg Documented by: Sodium Chloride () 10 - 40 ml IV UD PRN PRN Reason: SALINE FLUSH Last Admin: 09/11/19 06:12 Dose: 10 ml Documented by: Trazodone HCl (Desyrel) 50 mg PO QHS [facility] Last Admin: 09/10/19 23:09 Dose: 50 mg Documented by: Medical Necessity - Tobacco Use Smoking Status: Never smoker Assessment/Plan All Active Problems (Last Reviewed 09/08/19 @ 23:[address] 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 Diabetes with neuropathy Re-evaluation performed. Still bleeding - dressing change - aquacel ag and gauze/lily - was switched to surgicel and gauze. Likely wound vac in future, but need to wait until bleeding stopped completely. No weightbearing left foot, keep elevated at all times. Continue to follow cultures - finals pending. Patient on IV antibiotics per ID service/Dr. Wallace. Right foot: healing well. Continue w/ dressing changes. Diabetes and other medical management per medicine team. Podiatry will continue to follow.
[2019-09-11 06:56] LABS: Anion Gap 9 (5-15); BUN 27 mg/dL (7-18); BUN/Creat Ratio 6.3 RATIO (10-20); Calcium,Total 7.9 mg/dL (8.5-10.1); Chloride 95 mmol/L (98-107); Creatinine, Serum 4.31 mg/dL (0.70-1.30); EST Glomerular Filtration Rate 16 mL/min (>60); Est Glom Filt Rate - Afr Amer 19 mL/min (>60); Estimated Creatinine Clearance 18.96 ml/min; Glucose 198 mg/dL (74-106); Potassium 3.9 mmol/L (3.5-5.1); Sodium Level 132 mmol/L (136-145)
--- NOTE | 2019-09-11 07:17 | NURSING ---
wound photo: left foot
--- NOTE | 2019-09-11 07:18 | NURSING ---
wound photo: right foot
[2019-09-11] MEDS: Ondansetron 4 MG/2 ML Vial IV ×3 (07:58→22:14)
--- NOTE | 2019-09-11 08:02 | PCM.PN.HOSP ---
Patient Problems: Active and Suspected Problems (Last Reviewed 09/08/19 @ 23:[address] Eze Rivera MD) Diabetic foot ulcer (Acute) Diabetic foot infection (Acute) Reason for Visit: Diabetic foot infection Subjective: Patient continues to experience bleeding with dressing changes. Decision to place wound VAC placed on hold Objective: GENERAL: cooperative HEENT: Atraumatic; EYES; Anicteric, Normal Conjunctiva NECK; supple, normal thyroid, RESPIRATORY: Diminished to auscultation CARDIOVASCULAR: Regular S1 S2, GI: soft, normoactive bowel sounds, : No Renal angle tenderness; EXTREMITIES: Ulceration involving the left fifth toe MUSCULOSKELETAL: no muscle waisting NEURO: Awake; no lateralizing signs. SKIN: No Rash PSYCH; Flat affect Vitals/I&O's: Vital Signs Temp Pulse Resp BP Pulse Ox 98.4 F 69 17 166/88 H 99 09/11/19 05:04 09/11/19 05:04 09/11/19 05:04 09/11/19 05:04 09/11/19 05:04 Oxygen Flow Rate (L/min) 4 Oxygen Delivery Method Nasal Cannula Weight: 110.1 kg Body Mass Index (BMI) 38.0 Finger Stick Blood Glucose 410 Intake and Output for Last 24 Hours 09/09/19 09/10/19 09/11/19 23:59 23:59 23:59 Intake Total 420 / 420 1100 / 1100 1255 / 1255 Output Total 200 / 200 4450 / 4450 250 / 250 Balance 220 / 220 -3350 / -3350 1005 / 1005 Microbiology Past 72 Hours 09/09/19 12:44 Bone - Left Foot Gram Stain - Final 09/09/19 12:44 Bone - Left Foot Wound Culture - Preliminary No growth-Final to follow 09/09/19 12:44 Bone - Left Foot Gram Stain - Final 09/09/19 12:44 Bone - Left Foot Wound Culture - Preliminary No growth-Final to follow 09/08/19 19:45 Wound - Left Foot Gram Stain - Final 09/08/19 19:45 Wound - Left Foot Wound Culture - Preliminary Mixed Gram Positive Organisms Laboratory Results 09/10/19 10:18: POC Glucose 260 H 09/10/19 11:49: WBC 8.7, RBC 3.00 L, Hgb 8.5 L, Hct 27.1 L, MCV 90.3, MCH 28.3, MCHC 31.4 L, RDW Std Deviation 49.5 H, RDW Coeff of Roberto 15.2 H, Plt Count 230, MPV 9.3, Immature Gran % (Auto) 1.300 H, Neut % (Auto) 74.9 H, Lymph % (Auto) 10.8 L, [place] % (Auto) 8.1, Eos % (Auto) 4.2, Baso % (Auto) 0.7, Absolute Neuts (auto) 6.5, Absolute Lymphs (auto) 0.94, Nucleated RBC % 0 09/10/19 14:21: POC Glucose 270 H 09/10/19 18:18: POC Glucose 194 H 09/10/19 22:42: POC Glucose 172 H 09/11/19 01:15: POC Glucose 225 H 09/11/19 05:20: WBC 9.7, RBC 3.16 L, Hgb 8.8 L, Hct 28.6 L, MCV 90.5, MCH 27.8, MCHC 30.8 L, RDW Std Deviation 48.5 H, RDW Coeff of Roberto 14.9 H, Plt Count 269, MPV 9.6 09/11/19 05:20: Sodium 132 L, Potassium 3.9, Chloride 95 L, Carbon Dioxide 28.0, Anion Gap 9, BUN 27 H, Creatinine 4.31 H, Estim Creat Clear Calc 18.96, Est GFR (MDRD) Af Amer 19 L, Est GFR (MDRD) Non-Af 16 L, BUN/Creatinine Ratio 6.3 L, Glucose 198 H, Calcium 7.9 L, Magnesium 2.0 09/11/19 06:06: POC Glucose 183 H Current Medications Acetaminophen (Tylenol) 650 mg PO Q6H PRN PRN PRN Reason: Pain Score 1-10/Temp > 100.7 F Last Admin: 09/10/19 12:52 Dose: 650 mg Documented by: Albuterol/Ipratropium (Duoneb) 3 ml INHALATION Q4H.RT PRN PRN Reason: sob/wheezing Amlodipine Besylate (Norvasc) 10 mg PO DAILY [facility] Last Admin: 09/10/19 10:26 Dose: Not Given Documented by: Atorvastatin Calcium (Lipitor) 20 mg PO QHS [facility] Last Admin: 09/10/19 23:09 Dose: 20 mg Documented by: Cyclobenzaprine HCl (Flexeril) 10 mg PO TID PRN PRN PRN Reason: SPASMS Fluticasone Propionate (Flonase Nasal [place]) 1 spray NASAL DAILY [facility] Last Admin: 09/10/19 09:27 Dose: 1 spray Documented by: Furosemide (Lasix) 80 mg PO BIDLX [facility] Last Admin: 09/10/19 18:20 Dose: Not Given Documented by: Glucagon () 1 mg IM .X1 PRN PRN Reason: Hypoglycemia Heparin Sodium (Porcine) (Heparin Na) 5,000 unit SC Q8 [facility] Last Admin: 09/11/19 06:10 Dose: 5,000 unit Documented by: Hydralazine HCl (Apresoline Iv) 5 mg IV Q4H PRN PRN PRN Reason: SBP > 160 Last Admin: 09/09/19 22:24 Dose: 5 mg Documented by: Vancomycin IV Pharmacy to Dose (1 ea/ Sodium Chloride) 500 mls @ 250 mls/hr IV PRN PRN; Protocol Piperacillin Sod/Tazobactam (Sod 3.375 gm/ Sodium Chloride) 50 mls @ 12.5 mls/hr IV Q12 [facility] Last Infusion: 09/11/19 05:07 Dose: Infused Documented by: Dextrose (Dextrose 10%-Water) 250 mls @ 999 mls/hr IV .Q16M PRN; Protocol PRN Reason: HYPOGLYCEMIA Sodium Chloride () 250 mls @ 15 mls/hr IV .[id number] PRN PRN Reason: Saline Flush Sodium Chloride () 250 mls @ 15 mls/hr IV .[id number] PRN PRN Reason: Additional IVPB Infusion Insulin Human Lispro (Humalog Kwikpen (Bkc)) 0 unit SC Q4 [facility]; Protocol Last Admin: 09/11/19 06:10 Dose: 2 u Documented by: Isosorbide Mononitrate (Imdur) 30 mg PO DAILY [facility] Last Admin: 09/10/19 10:25 Dose: Not Given Documented by: Melatonin (Melatonin) 3 mg PO QHS PRN PRN PRN Reason: INSOMNIA Methadone HCl () 2.5 mg PO BID [facility] Last Admin: 09/10/19 23:08 Dose: 2.5 mg Documented by: Metoprolol Tartrate (Lopressor (Beta Emmanuel)) 50 mg PO BID [facility] Last Admin: 09/10/19 23:19 Dose: 50 mg Documented by: Multivit/Ca Carb/B Cmplx/FA/Prenat (Nephrocaps, Renaphro) 1 capsule PO DAILY [facility] Last Admin: 09/10/19 09:28 Dose: 1 capsule Documented by: Multivitamins/Minerals (Healthy Eyes (Bkc)) 1 capsule PO DAILY [facility] Last Admin: 09/10/19 09:28 Dose: 1 capsule Documented by: Ondansetron HCl (Zofran) 4 mg IV Q6H PRN PRN PRN Reason: NAUSEA/VOMITING Last Admin: 09/11/19 07:58 Dose: 4 mg Documented by: Oxycodone HCl (Oxyir) 5 mg PO Q6H PRN PRN PRN Reason: Pain Score 6-10/10 Last Admin: 09/10/19 23:09 Dose: 5 mg Documented by: Pantoprazole Sodium (Protonix) 40 mg PO DAILY [facility] Last Admin: 09/10/19 09:28 Dose: 40 mg Documented by: Senna/Docusate Sodium (Senokot-S, Amanda-Colace) 2 tablet PO BID PRN PRN PRN Reason: Constipation Sertraline HCl (Zoloft) 25 mg PO DAILY [facility] Last Admin: 09/10/19 09:28 Dose: 25 mg Documented by: Sevelamer Carbonate (Renvela) 2,400 mg PO TIDCM [facility] Last Admin: 09/10/19 18:15 Dose: 2,400 mg Documented by: Sodium Chloride () 10 - 40 ml IV UD PRN PRN Reason: SALINE FLUSH Last Admin: 09/11/19 07:58 Dose: 10 ml Documented by: Trazodone HCl (Desyrel) 50 mg PO QHS [facility] Last Admin: 09/10/19 23:09 Dose: 50 mg Documented by: STROKE Vital Signs/Narrative: Vital Signs Temp Pulse Resp BP Pulse Ox 09/11/19 05:04 98.4 F 69 17 166/88 H 99 Medical Necessity - Tobacco Use Smoking Status: Never smoker Assessment/Plan All Active Problems (Last Reviewed 09/08/19 @ 23:[address] Eze Rivera MD) Diabetic foot ulcer (Acute) Diabetic foot infection (Acute) Patient is a 49-year-old gentleman with multiple comorbidities including end-stage renal disease on hemodialysis presented with increasing malodorous discharge from the left foot 1. Diabetic foot ulcer infection of the left fifth metatarsal area ?admitted to regular nursing floor started on broad-spectrum antibiotic therapy with vancomycin and Zosyn. As part of patient's evaluation MRSA screen was ordered MRI ordered to rule out osteomyelitis and consultation placed to podiatry. Plan is for patient to undergo intervention -09/10/2019:Patient underwent Debridement of all nonviable, infected, necrotic soft tissue and bone from left foot w/ partial 5th ray amputation Dr. Shipley with podiatry on 09/09/2019. Cultures still pending wound was however MRSA positive per PCR. Was seen in consultation by infectious disease Dr. Wallace's notes and recommendations reviewed. -09/11/2019 Patient continues to experience bleeding with dressing changes. Decision to place wound VAC placed on hold 2. Chronic hypoxic respiratory failure ?Patient is on baseline home O2 3. End-stage renal disease ?Patient is on hemodialysis on Tuesdays and Saturdays consult placed with Dr. Gregorio for dialysis orders. Ordered serial BMPs for monitoring 4. Obstructive sleep apnea ?Patient is on BiPAP at night plan is to continue 5. Chronic heart failure with preserved ejection fraction ?Echo obtained on 03/16/2019 demonstrated EF of 60%. Patient currently compensated 6. Essential hypertension ?Blood pressure controlled continue with home medications 7. Dyslipidemia ?Patient is on atorvastatin did continue 8. Morbid obesity with BMI of 38 ?Weight loss advised 9. Diabetes mellitus type 2 ?With complications including diabetic nephropathy (end-stage renal disease); Did continue with home insulin regimen in addition to Accu-Cheks before meals and at bedtime with sliding scale coverage 10. Anemia secondary to anemia of ESRD ?Monitoring H&H with plans to transfuse if hemoglobin falls below 7 or patient becomes symptomatic 11. GERD ?Patient on PPI 12. DVT prophylaxis ?SC heparin Inpatient E&M: [id number] Subs Hosp L2
[2019-09-11] MEDS: Sertraline 50 MG Tablet 25 MG PO (10:02)
[2019-09-11] MEDS: amLODIPine 10 MG Tablet PO (10:03)
[2019-09-11] MEDS: Isosorbide Mononitrate 30 MG Tablet PO (10:03)
[2019-09-11] MEDS: Furosemide 80 MG Tablet PO ×2 (10:03→18:52)
[2019-09-11] MEDS: Folic Acid/Vitamin B Comp W-C 1 Capsule 1 CAP PO (10:04)
[2019-09-11] MEDS: Pantoprazole Sodium 40 MG Tablet PO (10:04)
[2019-09-11] MEDS: Multivitamin (Healthy Eyes) Capsule 1 CAP PO (10:04)
[2019-09-11] MEDS: Metoprolol Tartrate 50 MG Tablet PO ×2 (10:05→22:16)
[2019-09-11 10:30] LABS: Bedside Glucose 199 mg/dL (70-110)
[2019-09-11] MEDS: SEVELAMER CARBONATE 800 MG TABLET 2400 MG PO ×2 (12:42→18:51)
--- NOTE | 2019-09-11 14:25 | PCM.PN.REN ---
Patient Problems: Active and Suspected Problems (Last Reviewed 09/08/19 @ 23:[address] Eez Rivera MD) Diabetic foot ulcer (Acute) Diabetic foot infection (Acute) Subjective: bleeding from surgical site left foot. Wound vac eventually. NO edema or SoB - Physical Exam Vitals/I&O's: Vital Signs Temp Pulse Resp BP Pulse Ox 97.7 F L 63 16 164/73 H 97 09/11/19 10:26 09/11/19 10:26 09/11/19 10:26 09/11/19 10:26 09/11/19 10:26 Oxygen Flow Rate (L/min) 3 Oxygen Delivery Method Nasal Cannula Weight: 110.1 kg Body Mass Index (BMI) 38.0 Finger Stick Blood Glucose 410 Intake and Output for Last 24 Hours 09/09/19 09/10/19 09/11/19 23:59 23:59 23:59 Intake Total 420 / 420 1100 / 1100 1305 / 1305 Output Total 200 / 200 4450 / 4450 250 / 250 Balance 220 / 220 -3350 / -3350 1055 / 1055 General: Alert, Oriented x3, Cooperative Lungs: Clear to auscultation Extremities: No edema, - - left foot wrapped Musculoskeletal: No Muscle Wasting Psych/Mental Status: Alert and oriented to time, place, person, mood and affect Microbiology Past 72 Hours 09/08/19 20:00 Blood Culture (Wb) - Anticubital Left Blood Culture - Preliminary No growth in 48 hours. 09/08/19 19:10 Blood Culture (Wb) - Arm Left Blood Culture - Preliminary No growth in 48 hours. 09/08/19 19:45 Wound - Left Foot Gram Stain - Final 09/08/19 19:45 Wound - Left Foot Wound Culture - Preliminary Mixed Gram Positive Organisms 09/08/19 19:45 Wound - Left Foot Anaerobic Culture - Preliminary Checking for anaerobes, further studies to follow. 09/09/19 12:44 Bone - Left Foot Gram Stain - Final 09/09/19 12:44 Bone - Left Foot Wound Culture - Preliminary Gram negative renee 09/09/19 12:44 Bone - Left Foot Anaerobic Culture - Preliminary Checking for anaerobes, further studies to follow. 09/09/19 12:44 Bone - Left Foot Gram Stain - Final 09/09/19 12:44 Bone - Left Foot Wound Culture - Final Streptococcus group C 09/09/19 12:44 Bone - Left Foot Anaerobic Culture - Preliminary Checking for anaerobes, further studies to follow. Laboratory Results 09/10/19 14:21: POC Glucose 270 H 09/10/19 18:18: POC Glucose 194 H 09/10/19 22:42: POC Glucose 172 H 09/11/19 01:15: POC Glucose 225 H 09/11/19 05:20: WBC 9.7, RBC 3.16 L, Hgb 8.8 L, Hct 28.6 L, MCV 90.5, MCH 27.8, MCHC 30.8 L, RDW Std Deviation 48.5 H, RDW Coeff of Roberto 14.9 H, Plt Count 269, MPV 9.6 09/11/19 05:20: Sodium 132 L, Potassium 3.9, Chloride 95 L, Carbon Dioxide 28.0, Anion Gap 9, BUN 27 H, Creatinine 4.31 H, Estim Creat Clear Calc 18.96, Est GFR (MDRD) Af Amer 19 L, Est GFR (MDRD) Non-Af 16 L, BUN/Creatinine Ratio 6.3 L, Glucose 198 H, Calcium 7.9 L, Magnesium 2.0 09/11/19 06:06: POC Glucose 183 H 09/11/19 10:17: POC Glucose 199 H Current Medications Acetaminophen (Tylenol) 650 mg PO Q6H PRN PRN PRN Reason: Pain Score 1-10/Temp > 100.7 F Last Admin: 09/10/19 12:52 Dose: 650 mg Documented by: Albuterol/Ipratropium (Duoneb) 3 ml INHALATION Q4H.RT PRN PRN Reason: sob/wheezing Amlodipine Besylate (Norvasc) 10 mg PO DAILY [facility] Last Admin: 09/11/19 10:03 Dose: 10 mg Documented by: Atorvastatin Calcium (Lipitor) 20 mg PO QHS [facility] Last Admin: 09/10/19 23:09 Dose: 20 mg Documented by: Cyclobenzaprine HCl (Flexeril) 10 mg PO TID PRN PRN PRN Reason: SPASMS Fluticasone Propionate (Flonase Nasal [place]) 1 spray NASAL DAILY [facility] Last Admin: 09/11/19 10:22 Dose: Not Given Documented by: Furosemide (Lasix) 80 mg PO BIDLX [facility] Last Admin: 09/11/19 10:03 Dose: 80 mg Documented by: Glucagon () 1 mg IM .X1 PRN PRN Reason: Hypoglycemia Heparin Sodium (Porcine) (Heparin Na) 5,000 unit SC Q8 [facility] Last Admin: 09/11/19 06:10 Dose: 5,000 unit Documented by: Hydralazine HCl (Apresoline Iv) 5 mg IV Q4H PRN PRN PRN Reason: SBP > 160 Last Admin: 09/09/19 22:24 Dose: 5 mg Documented by: Vancomycin IV Pharmacy to Dose (1 ea/ Sodium Chloride) 500 mls @ 250 mls/hr IV PRN PRN; Protocol Piperacillin Sod/Tazobactam (Sod 3.375 gm/ Sodium Chloride) 50 mls @ 12.5 mls/hr IV Q12 [facility] Last Infusion: 09/11/19 14:18 Dose: Infused Documented by: Dextrose (Dextrose 10%-Water) 250 mls @ 999 mls/hr IV .Q16M PRN; Protocol PRN Reason: HYPOGLYCEMIA Sodium Chloride () 250 mls @ 15 mls/hr IV .[id number] PRN PRN Reason: Saline Flush Sodium Chloride () 250 mls @ 15 mls/hr IV .[id number] PRN PRN Reason: Additional IVPB Infusion Insulin Human Lispro (Humalog [place] ([facility])) 0 unit SC Q4 [facility]; Protocol Last Admin: 09/11/19 10:18 Dose: 2 u Documented by: Isosorbide Mononitrate (Imdur) 30 mg PO DAILY [facility] Last Admin: 09/11/19 10:03 Dose: 30 mg Documented by: Melatonin (Melatonin) 3 mg PO QHS PRN PRN PRN Reason: INSOMNIA Methadone HCl () 2.5 mg PO BID [facility] Last Admin: 09/11/19 10:15 Dose: 2.5 mg Documented by: Metoprolol Tartrate (Lopressor (Beta Emmanuel)) 50 mg PO BID [facility] Last Admin: 09/11/19 10:05 Dose: 50 mg Documented by: Multivit/Ca Carb/B Cmplx/FA/Prenat (Nephrocaps, Renaphro) 1 capsule PO DAILY [facility] Last Admin: 09/11/19 10:04 Dose: 1 capsule Documented by: Multivitamins/Minerals (Healthy Eyes (Bk)) 1 capsule PO DAILY [facility] Last Admin: 09/11/19 10:04 Dose: 1 capsule Documented by: Ondansetron HCl (Zofran) 4 mg IV Q6H PRN PRN PRN Reason: NAUSEA/VOMITING Last Admin: 09/11/19 07:58 Dose: 4 mg Documented by: Oxycodone HCl (Oxyir) 5 mg PO Q6H PRN PRN PRN Reason: Pain Score 6-10/10 Last Admin: 09/10/19 23:09 Dose: 5 mg Documented by: Pantoprazole Sodium (Protonix) 40 mg PO DAILY [facility] Last Admin: 09/11/19 10:04 Dose: 40 mg Documented by: Senna/Docusate Sodium (Senokot-S, Amanda-Colace) 2 tablet PO BID PRN PRN PRN Reason: Constipation Sertraline HCl (Zoloft) 25 mg PO DAILY [facility] Last Admin: 09/11/19 10:02 Dose: 25 mg Documented by: Sevelamer Carbonate (Renvela) 2,400 mg PO TIDCM [facility] Last Admin: 09/11/19 12:42 Dose: 2,400 mg Documented by: Sodium Chloride () 10 - 40 ml IV UD PRN PRN Reason: SALINE FLUSH Last Admin: 09/11/19 10:04 Dose: 10 ml Documented by: Trazodone HCl (Desyrel) 50 mg PO QHS [facility] Last Admin: 09/10/19 23:09 Dose: 50 mg Documented by: Medical Necessity - Tobacco Use Smoking Status: Never smoker Assessment/Plan All Active Problems (Last Reviewed 09/08/19 @ 23:[address] Eze Rivera MD) Diabetic foot ulcer (Acute) Diabetic foot infection (Acute) 1. End-stage renal disease hemodialysis next tomorrow and TTS 2. Diabetic foot ulcer left foot status post fifth toe amputation today. 3. Type II DM 4. hypertension with stable blood pressures 5. Morbid obesity 6. Anemia hemoglobin stable, TERESA on dialysis 7. SELMA on BiPAP at home.
[2019-09-11 14:40] LABS: Bedside Glucose 169 mg/dL (70-110)
--- NOTE | 2019-09-11 19:02 | PN.ID_ITS ---
Patient Problems: Active and Suspected Problems (Last Reviewed 09/08/19 @ 23:[address] Eze Rivera MD) Diabetic foot ulcer (Acute) Diabetic foot infection (Acute) Subjective: Feeling ok, no fever, no n/v/d. - Physical Exam Vitals/I&O's: Vital Signs Temp Pulse Resp BP Pulse Ox 98.9 F 60 16 145/76 H 100 09/11/19 16:20 09/11/19 16:20 09/11/19 16:20 09/11/19 16:20 09/11/19 16:20 Oxygen Flow Rate (L/min) 3 Oxygen Delivery Method Nasal Cannula Weight: 110.1 kg Body Mass Index (BMI) 38.0 Finger Stick Blood Glucose 410 Intake and Output for Last 24 Hours 09/09/19 09/10/19 09/11/19 23:59 23:59 23:59 Intake Total 420 / 420 1100 / 1100 1555 / 1555 Output Total 200 / 200 4450 / 4450 350 / 350 Balance 220 / 220 -3350 / -3350 1205 / 1205 General: Alert, Cooperative, No apparent distress Lungs: Clear to auscultation, Normal air movement Cardiovascular: Regular rate, Regular Rhythm Abdomen: Soft, Non Tender, Non-Distended Skin: Ulcer/ Wound Microbiology Past 72 Hours 09/08/19 20:00 Blood Culture (Wb) - Anticubital Left Blood Culture - Preliminary No growth in 48 hours. 09/08/19 19:10 Blood Culture (Wb) - Arm Left Blood Culture - Preliminary No growth in 48 hours. 09/08/19 19:45 Wound - Left Foot Gram Stain - Final 09/08/19 19:45 Wound - Left Foot Wound Culture - Preliminary Mixed Gram Positive Organisms 09/08/19 19:45 Wound - Left Foot Anaerobic Culture - Preliminary Checking for anaerobes, further studies to follow. 09/09/19 12:44 Bone - Left Foot Gram Stain - Final 09/09/19 12:44 Bone - Left Foot Wound Culture - Preliminary Gram negative renee 09/09/19 12:44 Bone - Left Foot Anaerobic Culture - Preliminary Checking for anaerobes, further studies to follow. 09/09/19 12:44 Bone - Left Foot Gram Stain - Final 09/09/19 12:44 Bone - Left Foot Wound Culture - Final Streptococcus group C 03/09/20 12:44 Bone - Left Foot Anaerobic Culture - Preliminary Checking for anaerobes, further studies to follow. Laboratory Results 09/10/19 22:42: POC Glucose 172 H 09/11/19 01:15: POC Glucose 225 H 09/11/19 05:20: WBC 9.7, RBC 3.16 L, Hgb 8.8 L, Hct 28.6 L, MCV 90.5, MCH 27.8, MCHC 30.8 L, RDW Std Deviation 48.5 H, RDW Coeff of Roberto 14.9 H, Plt Count 269, MPV 9.6 09/11/19 05:20: Sodium 132 L, Potassium 3.9, Chloride 95 L, Carbon Dioxide 28.0, Anion Gap 9, BUN 27 H, Creatinine 4.31 H, Estim Creat Clear Calc 18.96, Est GFR (MDRD) Af Amer 19 L, Est GFR (MDRD) Non-Af 16 L, BUN/Creatinine Ratio 6.3 L, Gl ucose 198 H, Calcium 7.9 L, Magnesium 2.0 09/11/19 06:06: POC Glucose 183 H 09/11/19 10:17: POC Glucose 199 H 09/11/19 14:33: POC Glucose 169 H Current Medications Acetaminophen (Tylenol) 650 mg PO Q6H PRN PRN PRN Reason: Pain Score 1-10/Temp > 100.7 F Last Admin: 09/10/19 12:52 Dose: 650 mg Documented by: Albuterol/Ipratropium (Duoneb) 3 ml INHALATION Q4H.RT PRN PRN Reason: sob/wheezing Amlodipine Besylate (Norvasc) 10 mg PO DAILY [facility] Last Admin: 09/11/19 10:03 Dose: 10 mg Documented by: Atorvastatin Calcium (Lipitor) 20 mg PO QHS [facility] Last Admin: 09/10/19 23:09 Dose: 20 mg Documented by: Cyclobenzaprine HCl (Flexeril) 10 mg PO TID PRN PRN PRN Reason: SPASMS Fluticasone Propionate (Flonase Nasal [place]) 1 spray NASAL DAILY [facility] Last Admin: 09/11/19 10:22 Dose: Not Given Documented by: Furosemide (Lasix) 80 mg PO BIDLX [facility] Last Admin: 09/11/19 18:52 Dose: 80 mg Documented by: Glucagon () 1 mg IM .X1 PRN PRN Reason: Hypoglycemia Heparin Sodium (Porcine) (Heparin Na) 5,000 unit SC Q8 [facility] Last Admin: 09/11/19 14:37 Dose: 5,000 unit Documented by: Hydralazine HCl (Apresoline Iv) 5 mg IV Q4H PRN PRN PRN Reason: SBP > 160 Last Admin: 09/09/19 22:24 Dose: 5 mg Documented by: Vancomycin IV Pharmacy to Dose (1 ea/ Sodium Chloride) 500 mls @ 250 mls/hr IV PRN PRN; Protocol Piperacillin Sod/Tazobactam (Sod 3.375 gm/ Sodium Chloride) 50 mls @ 12.5 mls/hr IV Q12 [facility] Last Infusion: 09/11/19 14:18 Dose: Infused Documented by: Dextrose (Dextrose 10%-Water) 250 mls @ 999 mls/hr IV .Q16M PRN; Protocol PRN Reason: HYPOGLYCEMIA Sodium Chloride () 250 mls @ 15 mls/hr IV .[id number] PRN PRN Reason: Saline Flush Sodium Chloride () 250 mls @ 15 mls/hr IV .[id number] PRN PRN Reason: Additional IVPB Infusion Insulin Human Lispro (Humalog [facility])) 0 unit SC Q4 [facility]; Protocol Last Admin: 09/11/19 18:55 Dose: 4 u Documented by: Isosorbide Mononitrate (Imdur) 30 mg PO DAILY [facility] Last Admin: 09/11/19 10:03 Dose: 30 mg Documented by: Melatonin (Melatonin) 3 mg PO QHS PRN PRN PRN Reason: INSOMNIA Methadone HCl () 2.5 mg PO BID [facility] Last Admin: 09/11/19 10:15 Dose: 2.5 mg Documented by: Metoprolol Tartrate (Lopressor (Beta Emmanuel)) 50 mg PO BID [facility] Last Admin: 09/11/19 10:05 Dose: 50 mg Documented by: Multivit/Ca Carb/B Cmplx/FA/Prenat (Nephrocaps, Renaphro) 1 capsule PO DAILY [facility] Last Admin: 09/11/19 10:04 Dose: 1 capsule Documented by: Multivitamins/Minerals (Healthy Eyes (Bk)) 1 capsule PO DAILY [facility] Last Admin: 09/11/19 10:04 Dose: 1 capsule Documented by: Ondansetron HCl (Zofran) 4 mg IV Q6H PRN PRN PRN Reason: NAUSEA/VOMITING Last Admin: 09/11/19 16:29 Dose: 4 mg Documented by: Oxycodone HCl (Oxyir) 5 mg PO Q6H PRN PRN PRN Reason: Pain Score 6-10/10 Last Admin: 09/10/19 23:09 Dose: 5 mg Documented by: Pantoprazole Sodium (Protonix) 40 mg PO DAILY [facility] Last Admin: 09/11/19 10:04 Dose: 40 mg Documented by: Senna/Docusate Sodium (Senokot-S, Amanda-Colace) 2 tablet PO BID PRN PRN PRN Reason: Constipation Sertraline HCl (Zoloft) 25 mg PO DAILY [facility] Last Admin: 09/11/19 10:02 Dose: 25 mg Documented by: Sevelamer Carbonate (Renvela) 2,400 mg PO TIDCM [facility] Last Admin: 09/11/19 18:51 Dose: 2,400 mg Documented by: Sodium Chloride () 10 - 40 ml IV UD PRN PRN Reason: SALINE FLUSH Last Admin: 09/11/19 16:29 Dose: 10 ml Documented by: Trazodone HCl (Desyrel) 50 mg PO QHS [facility] Last Admin: 09/10/19 23:09 Dose: 50 mg Documented by: Medical Necessity - Tobacco Use Smoking Status: Never smoker Route of nutrition/ use of supplements: [] Nutritional Intake: [] IV Site: [] Kuo Catheter: [] - Assessment/Plan Antibiotics: [] Assessment/Plan: [] Active and Suspected Problems (Last Reviewed 09/08/19 @ 23:[address] Eze Rivera MD) Diabetic foot ulcer (Acute) Diabetic foot infection (Acute) L foot DM osteo - s/p OR 09/[address] Shipley. Surg cx with group C strep and GNR, had been on keflex for a few days prior to admit. Cont vanc/zosyn. MRSA pcr (+). Will follow
[2019-09-11 19:05] LABS: Bedside Glucose 225 mg/dL (70-110)
[2019-09-11] MEDS: Ipratropium/Albuterol Sulfate 3 ML AMPUL.NEB INHALATION (21:51)
[2019-09-11] MEDS: Atorvastatin Calcium 20 MG Tablet PO (22:15)
[2019-09-11] MEDS: traZODone 50 MG Tablet PO (22:15)
[2019-09-11] MEDS: Senna/Docusate Sodium 1 Tablet 2 TABLET PO (22:16)
[2019-09-11] MEDS: MELATONIN 3 MG TABLET PO (22:17)
[2019-09-11] MEDS: oxyCODONE 5 MG Tablet PO (22:17)
[2019-09-11] MEDS: Acetaminophen 325 MG Tablet 650 MG PO (22:17)
[2019-09-11 22:35] LABS: Bedside Glucose 217 mg/dL (70-110)
[2019-09-12] VITALS (8 sets, daily range): BP systolic 141–154; BP diastolic 65–74; PULSE 58–68; RESP 16–18; TEMP 36.4–37.1; O2SAT 98–100
[2019-09-12] MEDS: Insulin Lispro 100 UNIT/ML INSULN.PEN SC ×3 (02:08→22:30)
[2019-09-12 02:20] LABS: Bedside Glucose 212 mg/dL (70-110)
[2019-09-12] MEDS: Heparin Injection (Vial) 5,000 UNIT/ML VIAL 5000 UNIT SC ×3 (06:07→22:29)
[2019-09-12] MEDS: 0.9% Saline Lock 10 ML Syringe IV (06:21)
[2019-09-12] MEDS: Ondansetron 4 MG/2 ML Vial IV ×2 (06:21→15:55)
[2019-09-12 07:07] LABS: Hematocrit 27.7 % (40-54); Hemoglobin 8.8 g/dL (13.0-16.5); Mean Corp Hgb Conc 31.8 g/dL (32-36); Mean Corpuscular Hgb 28.2 pg (27.0-32.0); Mean Corpuscular Volume 88.8 fL (80-94); Platelet Count 256 K/mm3 (150-450); RBC Distribution Width CV 14.9 % (11.6-14.6); RBC Distribution Width SD 46.7 fl (35.1-43.9); Red Blood Count 3.12 M/mm3 (4.6-6.2); White Blood Count 7.5 K/mm3 (4.4-11.0)
--- NOTE | 2019-09-12 07:13 | PCM.PROGNOTE ---
Patient Problems: Active and Suspected Problems (Last Reviewed 09/08/19 @ 23:[address] Eze Rivera MD) Diabetic foot ulcer (Acute) Diabetic foot infection (Acute) Subjective: Patient was seen this morning for follow up on left foot. He is resting in bed. He relates to some nausea. Has been afebrile. hgb stable at 8.8. Patient no adherent with keeping foot elevated at all times. - Physical Exam Vitals/I&O's: Vital Signs Temp Pulse Resp BP Pulse Ox 98.1 F 58 L 18 141/69 H 98 09/12/19 06:12 09/12/19 06:12 09/12/19 06:12 09/12/19 06:12 09/12/19 06:12 Oxygen Flow Rate (L/min) 3 Oxygen Delivery Method Nasal Cannula Weight: 110.1 kg Body Mass Index (BMI) 38.0 Finger Stick Blood Glucose 410 Intake and Output for Last 24 Hours 09/10/19 09/11/19 09/12/19 23:59 23:59 23:59 Intake Total 1100 / 1100 1555 / 1855 570 / 570 Output Total 4450 / 4450 350 / 550 200 / 200 Balance -3350 / -3350 1205 / 1305 370 / 370 General: Alert, Oriented x3, Cooperative, No apparent distress Extremities: Capillary Refill Less than 3 Seconds, - - s/p left foot 5th ray debridement/partial amp, surgicel left inplace, otherwise tissues healthy and viable, margins viable, no bleeding with surgicel in place, no maloder, no necrosis, no fluctuance, no streaking, no crepitus. No new ulcerations or areas of breakdown left foot/ankle. Psych/Mental Status: Appropriate Microbiology Past 72 Hours 09/08/19 20:00 Blood Culture (Wb) - Anticubital Left Blood Culture - Preliminary No growth in 48 hours. 09/08/19 19:10 Blood Culture (Wb) - Arm Left Blood Culture - Preliminary No growth in 48 hours. 09/08/19 19:45 Wound - Left Foot Gram Stain - Final 09/08/19 19:45 Wound - Left Foot Wound Culture - Preliminary Mixed Gram Positive Organisms 09/08/19 19:45 Wound - Left Foot Anaerobic Culture - Preliminary Checking for anaerobes, further studies to follow. 09/09/19 12:44 Bone - Left Foot Gram Stain - Final 09/09/19 12:44 Bone - Left Foot Wound Culture - Preliminary Gram negative renee 09/09/19 12:44 Bone - Left Foot Anaerobic Culture - Preliminary Checking for anaerobes, further studies to follow. 09/09/19 12:44 Bone - Left Foot Gram Stain - Final 09/09/19 12:44 Bone - Left Foot Wound Culture - Final Streptococcus group C 09/09/19 12:44 Bone - Left Foot Anaerobic Culture - Preliminary Checking for anaerobes, further studies to follow. Laboratory Results 09/11/19 10:17: POC Glucose 199 H 09/11/19 14:33: POC Glucose 169 H 09/11/19 18:55: POC Glucose 225 H 09/11/19 22:11: POC Glucose 217 H 09/12/19 02:07: POC Glucose 212 H 09/12/19 06:55: WBC 7.5, RBC 3.12 L, Hgb 8.8 L, Hct 27.7 L, MCV 88.8, MCH 28.2, MCHC 31.8 L, RDW Std Deviation 46.7 H, RDW Coeff of Roberto 14.9 H, Plt Count 256, MPV 9.0 09/12/19 06:55: Sodium Pending, Potassium Pending, Chloride Pending, Carbon Dioxide Pending, Anion Gap Pending, BUN Pending, Creatinine Pending, Est GFR (MDRD) Af Amer Pending, Est GFR (MDRD) Non-Af Pending, BUN/Creatinine Ratio Pending, Glucose Pending, Calcium Pending 09/12/19 06:55: Random Vancomycin Pending Current Medications Acetaminophen (Tylenol) 650 mg PO Q6H PRN PRN PRN Reason: Pain Score 1-10/Temp > 100.7 F Last Admin: 09/11/19 22:17 Dose: 650 mg Documented by: Albuterol/Ipratropium (Duoneb) 3 ml INHALATION Q4H.RT PRN PRN Reason: sob/wheezing Last Admin: 09/11/19 21:51 Dose: 3 ml Documented by: Amlodipine Besylate (Norvasc) 10 mg PO DAILY [facility] Last Admin: 09/11/19 10:03 Dose: 10 mg Documented by: Atorvastatin Calcium (Lipitor) 20 mg PO QHS [facility] Last Admin: 09/11/19 22:15 Dose: 20 mg Documented by: Cyclobenzaprine HCl (Flexeril) 10 mg PO TID PRN PRN PRN Reason: SPASMS Fluticasone Propionate (Flonase Nasal [place]) 1 spray NASAL DAILY [facility] Last Admin: 09/11/19 10:22 Dose: Not Given Documented by: Furosemide (Lasix) 80 mg PO BIDLX [facility] Last Admin: 09/11/19 18:52 Dose: 80 mg Documented by: Glucagon () 1 mg IM .X1 PRN PRN Reason: Hypoglycemia Heparin Sodium (Porcine) (Heparin Na) 5,000 unit SC Q8 [facility] Last Admin: 09/12/19 06:07 Dose: 5,000 unit Documented by: Hydralazine HCl (Apresoline Iv) 5 mg IV Q4H PRN PRN PRN Reason: SBP > 160 Last Admin: 09/09/19 22:24 Dose: 5 mg Documented by: Vancomycin IV Pharmacy to Dose (1 ea/ Sodium Chloride) 500 mls @ 250 mls/hr IV PRN PRN; Protocol Piperacillin Sod/Tazobactam (Sod 3.375 gm/ Sodium Chloride) 50 mls @ 12.5 mls/hr IV Q12 [facility] Last Infusion: 09/12/19 03:15 Dose: Infused Documented by: Dextrose (Dextrose 10%-Water) 250 mls @ 999 mls/hr IV .Q16M PRN; Protocol PRN Reason: HYPOGLYCEMIA Sodium Chloride () 250 mls @ 15 mls/hr IV .[id number] PRN PRN Reason: Saline Flush Last Infusion: 09/12/19 03:16 Dose: 15 mls/hr Documented by: Sodium Chloride () 250 mls @ 15 mls/hr IV .[id number] PRN PRN Reason: Additional IVPB Infusion Insulin Human Lispro (Humalog [place]wik[place] (Bkc)) 0 unit SC Q4 [facility]; Protocol Last Admin: 09/12/19 06:09 Dose: Not Given Documented by: Isosorbide Mononitrate (Imdur) 30 mg PO DAILY [facility] Last Admin: 09/11/19 10:03 Dose: 30 mg Documented by: Melatonin (Melatonin) 3 mg PO QHS PRN PRN PRN Reason: INSOMNIA Last Admin: 09/11/19 22:17 Dose: 3 mg Documented by: Methadone HCl () 2.5 mg PO BID [facility] Last Admin: 09/11/19 22:15 Dose: 2.5 mg Documented by: Metoprolol Tartrate (Lopressor (Beta Emmanuel)) 50 mg PO BID [facility] Last Admin: 09/11/19 22:16 Dose: 50 mg Documented by: Multivit/Ca Carb/B Cmplx/FA/Prenat (Nephrocaps, Renaphro) 1 capsule PO DAILY [facility] Last Admin: 09/11/19 10:04 Dose: 1 capsule Documented by: Multivitamins/Minerals (Healthy Eyes (Bkc)) 1 capsule PO DAILY [facility] Last Admin: 09/11/19 10:04 Dose: 1 capsule Documented by: Ondansetron HCl (Zofran) 4 mg IV Q6H PRN PRN PRN Reason: NAUSEA/VOMITING Last Admin: 09/12/19 06:21 Dose: 4 mg Documented by: Oxycodone HCl (Oxyir) 5 mg PO Q6H PRN PRN PRN Reason: Pain Score 6-10/10 Last Admin: 09/11/19 22:17 Dose: 5 mg Documented by: Pantoprazole Sodium (Protonix) 40 mg PO DAILY [facility] Last Admin: 09/11/19 10:04 Dose: 40 mg Documented by: Senna/Docusate Sodium (Senokot-S, Amanda-Colace) 2 tablet PO BID PRN PRN PRN Reason: Constipation Last Admin: 09/11/19 22:16 Dose: 2 tablet Documented by: Sertraline HCl (Zoloft) 25 mg PO DAILY [facility] Last Admin: 09/11/19 10:02 Dose: 25 mg Documented by: Sevelamer Carbonate (Renvela) 2,400 mg PO TIDCM [facility] Last Admin: 09/11/19 18:51 Dose: 2,400 mg Documented by: Sodium Chloride () 10 - 40 ml IV UD PRN PRN Reason: SALINE FLUSH Last Admin: 09/12/19 06:21 Dose: 10 ml Documented by: Trazodone HCl (Desyrel) 50 mg PO QHS [facility] Last Admin: 09/11/19 22:15 Dose: 50 mg Documented by: Medical Necessity - Tobacco Use Smoking Status: Never smoker Assessment/Plan All Active Problems (Last Reviewed 09/08/19 @ 23:[address] 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 Diabetes with neuropathy Re-evaluation performed. Surgicel left in place, overlying gauze dressing change. Will hold off on wound vac at this time, we will plan to proceed in future but would like to give more time to ensure no more significant bleeding. No weightbearing left foot, keep elevated at all times. He is not compliant/adherent with strict elevation of foot at all times. Reviewed with patient it is best to keep foot elevated all of the time to keep bleeding under control. Continue to follow cultures - finals pending. Patient on IV antibiotics per ID service/Dr. Wallace. Right foot: healing well. Continue w/ dressing changes. Diabetes and other medical management per medicine team. Podiatry will continue to follow.
[2019-09-12 07:26] LABS: Anion Gap 8 (5-15); BUN 38 mg/dL (7-18); BUN/Creat Ratio 6.2 RATIO (10-20); Calcium,Total 8.3 mg/dL (8.5-10.1); Chloride 94 mmol/L (98-107); EST Glomerular Filtration Rate 10 mL/min (>60); Est Glom Filt Rate - Afr Amer 13 mL/min (>60); Estimated Creatinine Clearance 13.39 ml/min; Glucose 134 mg/dL (74-106); Potassium 4.2 mmol/L (3.5-5.1); Sodium Level 131 mmol/L (136-145)
[2019-09-12 07:30] LABS: Bedside Glucose 124 mg/dL (70-110)
--- NOTE | 2019-09-12 07:44 | PCM.PN.HOSP ---
Patient Problems: Active and Suspected Problems (Last Reviewed 09/08/19 @ 23:[address] Eze Rivera MD) Diabetic foot ulcer (Acute) Diabetic foot infection (Acute) Reason for Visit: Follow-up diabetic foot infection Subjective: Patient seen currently undergoing dialysis patient complains of intractable nausea and vomiting this a.m. patient was on Zofran which was apparently not working added IM Phenergan Objective: GENERAL: cooperative HEENT: Atraumatic; EYES; Anicteric, Normal Conjunctiva NECK; supple, normal thyroid, RESPIRATORY: Diminished to auscultation CARDIOVASCULAR: Regular S1 S2, GI: soft, normoactive bowel sounds, : No Renal angle tenderness; EXTREMITIES: Ulceration involving the left fifth toe MUSCULOSKELETAL: no muscle waisting NEURO: Awake; no lateralizing signs. SKIN: No Rash PSYCH; Flat affect Vitals/I&O's: Vital Signs Temp Pulse Resp BP Pulse Ox 98.1 F 58 L 18 141/69 H 98 09/12/19 06:12 09/12/19 06:12 09/12/19 06:12 09/12/19 06:12 09/12/19 06:12 Oxygen Flow Rate (L/min) 3 Oxygen Delivery Method Nasal Cannula Weight: 110.1 kg Body Mass Index (BMI) 38.0 Finger Stick Blood Glucose 410 Intake and Output for Last 24 Hours 09/10/19 09/11/19 09/12/19 23:59 23:59 23:59 Intake Total 1100 / 1100 1555 / 1855 570 / 570 Output Total 4450 / 4450 350 / 550 200 / 200 Balance -3350 / -3350 1205 / 1305 370 / 370 Microbiology Past 72 Hours 09/08/19 20:00 Blood Culture (Wb) - Anticubital Left Blood Culture - Preliminary No growth in 48 hours. 09/08/19 19:10 Blood Culture (Wb) - Arm Left Blood Culture - Preliminary No growth in 48 hours. 09/08/19 19:45 Wound - Left Foot Gram Stain - Final 09/08/19 19:45 Wound - Left Foot Wound Culture - Preliminary Mixed Gram Positive Organisms 09/08/19 19:45 Wound - Left Foot Anaerobic Culture - Preliminary Checking for anaerobes, further studies to follow. 09/09/19 12:44 Bone - Left Foot Gram Stain - Final 09/09/19 12:44 Bone - Left Foot Wound Culture - Preliminary Gram negative renee 09/09/19 12:44 Bone - Left Foot Anaerobic Culture - Preliminary Checking for anaerobes, further studies to follow. 09/09/19 12:44 Bone - Left Foot Gram Stain - Final 09/09/19 12:44 Bone - Left Foot Wound Culture - Final Streptococcus group C 09/09/19 12:44 Bone - Left Foot Anaerobic Culture - Preliminary Checking for anaerobes, further studies to follow. Laboratory Results 09/11/19 10:17: POC Glucose 199 H 09/11/19 14:33: POC Glucose 169 H 09/11/19 18:55: POC Glucose 225 H 09/11/19 22:11: POC Glucose 217 H 09/12/19 02:07: POC Glucose 212 H 09/12/19 06:08: POC Glucose 124 H 09/12/19 06:55: WBC 7.5, RBC 3.12 L, Hgb 8.8 L, Hct 27.7 L, MCV 88.8, MCH 28.2, MCHC 31.8 L, RDW Std Deviation 46.7 H, RDW Coeff of Roberto 14.9 H, Plt Count 256, MPV 9.0 09/12/19 06:55: Sodium 131 L, Potassium 4.2, Chloride 94 L, Carbon Dioxide 29.0, Anion Gap 8, BUN 38 H, Creatinine 6.10 H, Estim Creat Clear Calc 13.39, Est GFR (MDRD) Af Amer 13 L, Est GFR (MDRD) Non-Af 10 L, BUN/Creatinine Ratio 6.2 L, Glucose 134 H, Calcium 8.3 L 09/12/19 06:55: Random Vancomycin Pending Current Medications Acetaminophen (Tylenol) 650 mg PO Q6H PRN PRN PRN Reason: Pain Score 1-10/Temp > 100.7 F Last Admin: 09/11/19 22:17 Dose: 650 mg Documented by: Albuterol/Ipratropium (Duoneb) 3 ml INHALATION Q4H.RT PRN PRN Reason: sob/wheezing Last Admin: 09/11/19 21:51 Dose: 3 ml Documented by: Amlodipine Besylate (Norvasc) 10 mg PO DAILY [facility] Last Admin: 09/11/19 10:03 Dose: 10 mg Documented by: Atorvastatin Calcium (Lipitor) 20 mg PO QHS [facility] Last Admin: 09/11/19 22:15 Dose: 20 mg Documented by: Cyclobenzaprine HCl (Flexeril) 10 mg PO TID PRN PRN PRN Reason: SPASMS Fluticasone Propionate (Flonase Nasal [place]) 1 spray NASAL DAILY [facility] Last Admin: 09/11/19 10:22 Dose: Not Given Documented by: Furosemide (Lasix) 80 mg PO BIDLX [facility] Last Admin: 09/11/19 18:52 Dose: 80 mg Documented by: Glucagon () 1 mg IM .X1 PRN PRN Reason: Hypoglycemia Heparin Sodium (Porcine) (Heparin Na) 5,000 unit SC Q8 [facility] Last Admin: 09/12/19 06:07 Dose: 5,000 unit Documented by: Hydralazine HCl (Apresoline Iv) 5 mg IV Q4H PRN PRN PRN Reason: SBP > 160 Last Admin: 09/09/19 22:24 Dose: 5 mg Documented by: Vancomycin IV Pharmacy to Dose (1 ea/ Sodium Chloride) 500 mls @ 250 mls/hr IV PRN PRN; Protocol Piperacillin Sod/Tazobactam (Sod 3.375 gm/ Sodium Chloride) 50 mls @ 12.5 mls/hr IV Q12 [facility] Last Infusion: 09/12/19 03:15 Dose: Infused Documented by: Dextrose (Dextrose 10%-Water) 250 mls @ 999 mls/hr IV .Q16M PRN; Protocol PRN Reason: HYPOGLYCEMIA Sodium Chloride () 250 mls @ 15 mls/hr IV .[id number] PRN PRN Reason: Saline Flush Last Infusion: 09/12/19 03:16 Dose: 15 mls/hr Documented by: Sodium Chloride () 250 mls @ 15 mls/hr IV .[id number] PRN PRN Reason: Additional IVPB Infusion Insulin Human Lispro (Humalog Kwikpen (Bkc)) 0 unit SC Q4 [facility]; Protocol Last Admin: 09/12/19 06:09 Dose: Not Given Documented by: Isosorbide Mononitrate (Imdur) 30 mg PO DAILY [facility] Last Admin: 09/11/19 10:03 Dose: 30 mg Documented by: Melatonin (Melatonin) 3 mg PO QHS PRN PRN PRN Reason: INSOMNIA Last Admin: 09/11/19 22:17 Dose: 3 mg Documented by: Methadone HCl () 2.5 mg PO BID [facility] Last Admin: 09/11/19 22:15 Dose: 2.5 mg Documented by: Metoprolol Tartrate (Lopressor (Beta Emmanuel)) 50 mg PO BID [facility] Last Admin: 09/11/19 22:16 Dose: 50 mg Documented by: Multivit/Ca Carb/B Cmplx/FA/Prenat (Nephrocaps, Renaphro) 1 capsule PO DAILY [facility] Last Admin: 09/11/19 10:04 Dose: 1 capsule Documented by: Multivitamins/Minerals (Healthy Eyes (Bkc)) 1 capsule PO DAILY [facility] Last Admin: 09/11/19 10:04 Dose: 1 capsule Documented by: Ondansetron HCl (Zofran) 4 mg IV Q6H PRN PRN PRN Reason: NAUSEA/VOMITING Last Admin: 09/12/19 06:21 Dose: 4 mg Documented by: Oxycodone HCl (Oxyir) 5 mg PO Q6H PRN PRN PRN Reason: Pain Score 6-10/10 Last Admin: 09/11/19 22:17 Dose: 5 mg Documented by: Pantoprazole Sodium (Protonix) 40 mg PO DAILY [facility] Last Admin: 09/11/19 10:04 Dose: 40 mg Documented by: Senna/Docusate Sodium (Senokot-S, Amanda-Colace) 2 tablet PO BID PRN PRN PRN Reason: Constipation Last Admin: 09/11/19 22:16 Dose: 2 tablet Documented by: Sertraline HCl (Zoloft) 25 mg PO DAILY [facility] Last Admin: 09/11/19 10:02 Dose: 25 mg Documented by: Sevelamer Carbonate (Renvela) 2,400 mg PO TIDCM [facility] Last Admin: 09/11/19 18:51 Dose: 2,400 mg Documented by: Sodium Chloride () 10 - 40 ml IV UD PRN PRN Reason: SALINE FLUSH Last Admin: 09/12/19 06:21 Dose: 10 ml Documented by: Trazodone HCl (Desyrel) 50 mg PO QHS [facility] Last Admin: 09/11/19 22:15 Dose: 50 mg Documented by: STROKE Vital Signs/Narrative: Vital Signs Temp Pulse Resp BP Pulse Ox 09/12/19 06:12 98.1 F 58 L 18 141/69 H 98 Medical Necessity - Tobacco Use Smoking Status: Never smoker Assessment/Plan All Active Problems (Last Reviewed 09/08/19 @ 23:[address] Eze Rivera MD) Diabetic foot ulcer (Acute) Diabetic foot infection (Acute) Patient is a 49-year-old gentleman with multiple comorbidities including end-stage renal disease on hemodialysis presented with increasing malodorous discharge from the left foot 1. Diabetic foot ulcer infection of the left fifth metatarsal area ?admitted to regular nursing floor started on broad-spectrum antibiotic therapy with vancomycin and Zosyn. As part of patient's evaluation MRSA screen was ordered MRI ordered to rule out osteomyelitis and consultation placed to podiatry. Plan is for patient to undergo intervention -09/10/2019:Patient underwent Debridement of all nonviable, infected, necrotic soft tissue and bone from left foot w/ partial 5th ray amputation Dr. Shipley with podiatry on 09/09/2019. Cultures still pending wound was however MRSA positive per PCR. Was seen in consultation by infectious disease Dr. Wallace's notes and recommendations reviewed. -09/11/2019 Patient continues to experience bleeding with dressing changes. Decision to place wound VAC placed on hold -09/12/2019; final cultures in. Antibiotic therapy on discharge as recommended by Dr. Wallace (cefazolin and vancomycin for 6 weeks with dialysis) 2. Chronic hypoxic respiratory failure ?Patient is on baseline home O2 3. End-stage renal disease ?Patient is on hemodialysis on Tuesdays and Saturdays consult placed with Dr. Gregoroi for dialysis orders. Ordered serial BMPs for monitoring 4. Obstructive sleep apnea ?Patient is on BiPAP at night plan is to continue 5. Chronic heart failure with preserved ejection fraction ?Echo obtained on 03/16/2019 demonstrated EF of 60%. Patient currently compensated 6. Essential hypertension ?Blood pressure controlled continue with home medications 7. Dyslipidemia ?Patient is on atorvastatin did continue 8. Morbid obesity with BMI of 38 ?Weight loss advised 9. Diabetes mellitus type 2 ?With complications including diabetic nephropathy (end-stage renal disease); Did continue with home insulin regimen in addition to Accu-Cheks before meals and at bedtime with sliding scale coverage 10. Anemia secondary to anemia of ESRD ?Monitoring H&H with plans to transfuse if hemoglobin falls below 7 or patient becomes symptomatic 11. GERD ?Patient on PPI 12. DVT prophylaxis ?SC heparin 13. Trouble nausea vomiting ?Suspected to be secondary to gastritis added IM Phenergan for symptomatic control Inpatient E&M: 18681 Subs Hosp L2
--- NOTE | 2019-09-12 09:51 | PCM.PN.ID ---
Patient Problems: Active and Suspected Problems (Last Reviewed 09/08/19 @ 23:[address] Eze Rivera MD) Diabetic foot ulcer (Acute) Diabetic foot infection (Acute) Subjective: Feeling the same, some nausea. No fever. - Physical Exam Vitals/I&O's: Vital Signs Temp Pulse Resp BP Pulse Ox 98.1 F 58 L 18 141/69 H 98 09/12/19 06:12 09/12/19 06:12 09/12/19 06:12 09/12/19 06:12 09/12/19 08:47 Oxygen Flow Rate (L/min) 3 Oxygen Delivery Method Nasal Cannula Weight: 110.1 kg Body Mass Index (BMI) 38.0 Finger Stick Blood Glucose 410 Intake and Output for Last 24 Hours 09/10/19 09/11/19 09/12/19 23:59 23:59 23:59 Intake Total 1100 / 1100 1555 / 1855 570 / 570 Output Total 4450 / 4450 350 / 550 200 / 200 Balance -3350 / -3350 1205 / 1305 370 / 370 General: Alert, Cooperative, No apparent distress Lungs: Clear to auscultation, Normal air movement Cardiovascular: Regular rate, Regular Rhythm Abdomen: Soft, Non Tender, Non-Distended Extremities: Edema Skin: Ulcer/ Wound - reviewed photo Microbiology Past 72 Hours 09/09/19 12:44 Bone - Left Foot Gram Stain - Final 09/09/19 12:44 Bone - Left Foot Wound Culture - Final Escherichia coli 09/09/19 12:44 Bone - Left Foot Anaerobic Culture - Final No anaerobic bacteria isolated. 09/08/19 19:45 Wound - Left Foot Gram Stain - Final 09/08/19 19:45 Wound - Left Foot Wound Culture - Preliminary Corynebacterium striatum Corynebacterium amycolatum/xer 09/08/19 19:45 Wound - Left Foot Anaerobic Culture - Preliminary Checking for anaerobes, further studies to follow. 09/08/19 20:00 Blood Culture (Wb) - Anticubital Left Blood Culture - Preliminary No growth in 48 hours. 09/08/19 19:10 Blood Culture (Wb) - Arm Left Blood Culture - Preliminary No growth in 48 hours. 09/09/19 12:44 Bone - Left Foot Gram Stain - Final 09/09/19 12:44 Bone - Left Foot Wound Culture - Final Streptococcus group C 09/09/19 12:44 Bone - Left Foot Anaerobic Culture - Preliminary Checking for anaerobes, further studies to follow. Laboratory Results 09/11/19 10:17: POC Glucose 199 H 09/11/19 14:33: POC Glucose 169 H 09/11/19 18:55: POC Glucose 225 H 09/11/19 22:11: POC Glucose 217 H 09/12/19 02:07: POC Glucose 212 H 09/12/19 06:08: POC Glucose 124 H 09/12/19 06:55: WBC 7.5, RBC 3.12 L, Hgb 8.8 L, Hct 27.7 L, MCV 88.8, MCH 28.2, MCHC 31.8 L, RDW Std Deviation 46.7 H, RDW Coeff of Roberto 14.9 H, Plt Count 256, MPV 9.0 09/12/19 06:55: Sodium 131 L, Potassium 4.2, Chloride 94 L, Carbon Dioxide 29.0, Anion Gap 8, BUN 38 H, Creatinine 6.10 H, Estim Creat Clear Calc 13.39, Est GFR (MDRD) Af Amer 13 L, Est GFR (MDRD) Non-Af 10 L, BUN/Creatinine Ratio 6.2 L, Glucose 134 H, Calcium 8.3 L 09/12/19 06:55: Random Vancomycin 17.0 H Current Medications Acetaminophen (Tylenol) 650 mg PO Q6H PRN PRN PRN Reason: Pain Score 1-10/Temp > 100.7 F Last Admin: 09/11/19 22:17 Dose: 650 mg Documented by: Albuterol/Ipratropium (Duoneb) 3 ml INHALATION Q4H.RT PRN PRN Reason: sob/wheezing Last Admin: 09/11/19 21:51 Dose: 3 ml Documented by: Amlodipine Besylate (Norvasc) 10 mg PO DAILY [facility] Last Admin: 09/11/19 10:03 Dose: 10 mg Documented by: Atorvastatin Calcium (Lipitor) 20 mg PO QHS [facility] Last Admin: 09/11/19 22:15 Dose: 20 mg Documented by: Calcitriol (Rocaltrol) 1.75 mcg PO X1 [facility] Stop: 09/12/19 16:00 Cyclobenzaprine HCl (Flexeril) 10 mg PO TID PRN PRN PRN Reason: SPASMS Epoetin Sin-epbx (Retacrit) 6,000 units IV X1 [facility] Stop: 09/12/19 16:00 Fluticasone Propionate (Flonase Nasal [place]) 1 spray NASAL DAILY [facility] Last Admin: 09/11/19 10:22 Dose: Not Given Documented by: Furosemide (Lasix) 80 mg PO BIDLX [facility] Last Admin: 09/11/19 18:52 Dose: 80 mg Documented by: Glucagon () 1 mg IM .X1 PRN PRN Reason: Hypoglycemia Heparin Sodium (Porcine) (Heparin Na) 5,000 unit SC Q8 [facility] Last Admin: 09/12/19 06:07 Dose: 5,000 unit Documented by: Hydralazine HCl (Apresoline Iv) 5 mg IV Q4H PRN PRN PRN Reason: SBP > 160 Last Admin: 09/09/19 22:24 Dose: 5 mg Documented by: Vancomycin IV Pharmacy to Dose (1 ea/ Sodium Chloride) 500 mls @ 250 mls/hr IV PRN PRN; Protocol Dextrose (Dextrose 10%-Water) 250 mls @ 999 mls/hr IV .Q16M PRN; Protocol PRN Reason: HYPOGLYCEMIA Sodium Chloride () 250 mls @ 15 mls/hr IV .[id number] PRN PRN Reason: Saline Flush Last Infusion: 09/12/19 03:16 Dose: 15 mls/hr Documented by: Sodium Chloride () 250 mls @ 15 mls/hr IV .[id number] PRN PRN Reason: Additional IVPB Infusion Vancomycin HCl () 500 mg in 100 mls @ 100 mls/hr IV X1 [facility] Stop: 09/12/19 16:59 Cefazolin Sodium () 1 gm in 50 mls @ 100 mls/hr IV Q24H [facility] Insulin Human Lispro (Humalog Kwikpen (Bkc)) 0 unit SC Q4 [facility]; Protocol Last Admin: 09/12/19 06:09 Dose: Not Given Documented by: Isosorbide Mononitrate (Imdur) 30 mg PO DAILY [facility] Last Admin: 09/11/19 10:03 Dose: 30 mg Documented by: Melatonin (Melatonin) 3 mg PO QHS PRN PRN PRN Reason: INSOMNIA Last Admin: 03/11/20 22:17 Dose: 3 mg Documented by: Methadone HCl () 2.5 mg PO BID [facility] Last Admin: 09/11/19 22:15 Dose: 2.5 mg Documented by: Metoprolol Tartrate (Lopressor (Beta Emmanuel)) 50 mg PO BID [facility] Last Admin: 09/11/19 22:16 Dose: 50 mg Documented by: Metronidazole (Flagyl) 500 mg PO TID [facility] Multivit/Ca Carb/B Cmplx/FA/Prenat (Nephrocaps, Renaphro) 1 capsule PO DAILY [facility] Last Admin: 09/11/19 10:04 Dose: 1 capsule Documented by: Multivitamins/Minerals (Healthy Eyes (Bkc)) 1 capsule PO DAILY [facility] Last Admin: 09/11/19 10:04 Dose: 1 capsule Documented by: Ondansetron HCl (Zofran) 4 mg IV Q6H PRN PRN PRN Reason: NAUSEA/VOMITING Last Admin: 09/12/19 06:21 Dose: 4 mg Documented by: Oxycodone HCl (Oxyir) 5 mg PO Q6H PRN PRN PRN Reason: Pain Score 6-10/10 Last Admin: 09/11/19 22:17 Dose: 5 mg Documented by: Pantoprazole Sodium (Protonix) 40 mg PO DAILY [facility] Last Admin: 09/11/19 10:04 Dose: 40 mg Documented by: Senna/Docusate Sodium (Senokot-S, Amanda-Colace) 2 tablet PO BID PRN PRN PRN Reason: Constipation Last Admin: 09/11/19 22:16 Dose: 2 tablet Documented by: Sertraline HCl (Zoloft) 25 mg PO DAILY [facility] Last Admin: 09/11/19 10:02 Dose: 25 mg Documented by: Sevelamer Carbonate (Renvela) 2,400 mg PO TIDCM [facility] Last Admin: 09/12/19 09:18 Dose: Not Given Documented by: Sodium Chloride () 10 - 40 ml IV UD PRN PRN Reason: SALINE FLUSH Last Admin: 09/12/19 06:21 Dose: 10 ml Documented by: Trazodone HCl (Desyrel) 50 mg PO QHS [facility] Last Admin: 09/11/19 22:15 Dose: 50 mg Documented by: Medical Necessity - Tobacco Use Smoking Status: Never smoker Route of nutrition/ use of supplements: [] Nutritional Intake: [] IV Site: [] Kuo Catheter: [] - Assessment/Plan Antibiotics: [] Assessment/Plan: [] Active and Suspected Problems (Last Reviewed 09/08/19 @ 23:[address] Eze Rivera MD) Diabetic foot ulcer (Acute) Diabetic foot infection (Acute) L foot DM osteo - s/p OR 09/[address] Shipley. Wound cx with corynebacteria, wound pcr with mRSA. Surg cx with group C strep and ecoli, had been on keflex for a few days prior to admit. Will change abx to vanc and cefazolin which can be dosed with HD after discharge, add po flagyl. Plan on 6 week course of abx. Will follow, d/w primary team.
--- NOTE | 2019-09-12 11:06 | PN.RENAL_ITS ---
Patient Problems: Active and Suspected Problems (Last Reviewed 09/08/19 @ 23:[address] Eze Rivera MD) Diabetic foot ulcer (Acute) Diabetic foot infection (Acute) Subjective: seen at start of dialysis. Fluid removal as tolerated. - Physical Exam Vitals/I&O's: Vital Signs Temp Pulse Resp BP Pulse Ox 98.1 F 58 L 18 141/69 H 98 09/12/19 06:12 09/12/19 06:12 09/12/19 06:12 09/12/19 06:12 09/12/19 08:47 Oxygen Flow Rate (L/min) 3 Oxygen Delivery Method Nasal Cannula Weight: 110.1 kg Body Mass Index (BMI) 38.0 Finger Stick Blood Glucose 410 Intake and Output for Last 24 Hours 09/10/19 09/11/19 09/12/19 23:59 23:59 23:59 Intake Total 1100 / 1100 1555 / 1855 570 / 570 Output Total 4450 / 4450 350 / 550 200 / 200 Balance -3350 / -3350 1205 / 1305 370 / 370 General: Alert, Oriented x3, Cooperative Lungs: Clear to auscultation Extremities: No edema, - - left foot wrapped Skin: Ulcer/ Wound - left foot s/p 5th toe amputaton, osteo Psych/Mental Status: Alert and oriented to time, place, person, mood and affect Microbiology Past 72 Hours 09/08/19 19:45 Wound - Left Foot Gram Stain - Final 09/08/19 19:45 Wound - Left Foot Wound Culture - Preliminary Corynebacterium striatum Corynebacterium amycolatum/xer Corynebacterium minutissimum Gram positive renee 09/08/19 19:45 Wound - Left Foot Anaerobic Culture - Preliminary Checking for anaerobes, further studies to follow. 09/09/19 12:44 Bone - Left Foot Gram Stain - Final 09/09/19 12:44 Bone - Left Foot Wound Culture - Final Escherichia coli 09/09/19 12:44 Bone - Left Foot Anaerobic Culture - Final No anaerobic bacteria isolated. 09/08/19 20:00 Blood Culture (Wb) - Anticubital Left Blood Culture - Preliminary No growth in 48 hours. 09/08/19 19:10 Blood Culture (Wb) - Arm Left Blood Culture - Preliminary No growth in 48 hours. 09/09/19 12:44 Bone - Left Foot Gram Stain - Final 09/09/19 12:44 Bone - Left Foot Wound Culture - Final Streptococcus group C 09/09/19 12:44 Bone - Left Foot Anaerobic Culture - Preliminary Checking for anaerobes, further studies to follow. Laboratory Results 09/11/19 14:33: POC Glucose 169 H 09/11/19 18:55: POC Glucose 225 H 09/11/19 22:11: POC Glucose 217 H 09/12/19 02:07: POC Glucose 212 H 09/12/19 06:08: POC Glucose 124 H 09/12/19 06:55: WBC 7.5, RBC 3.12 L, Hgb 8.8 L, Hct 27.7 L, MCV 88.8, MCH 28.2, MCHC 31.8 L, RDW Std Deviation 46.7 H, RDW Coeff of Roberto 14.9 H, Plt Count 256, MPV 9.0 09/12/19 06:55: Sodium 131 L, Potassium 4.2, Chloride 94 L, Carbon Dioxide 29.0, Anion Gap 8, BUN 38 H, Creatinine 6.10 H, Estim Creat Clear Calc 13.39, Est GFR (MDRD) Af Amer 13 L, Est GFR (MDRD) Non-Af 10 L, BUN/Creatinine Ratio 6.2 L, Glucose 134 H, Calcium 8.3 L 09/12/19 06:55: Random Vancomycin 17.0 H Current Medications Acetaminophen (Tylenol) 650 mg PO Q6H PRN PRN PRN Reason: Pain Score 1-10/Temp > 100.7 F Last Admin: 09/11/19 22:17 Dose: 650 mg Documented by: Albuterol/Ipratropium (Duoneb) 3 ml INHALATION Q4H.RT PRN PRN Reason: sob/wheezing Last Admin: 09/11/19 21:51 Dose: 3 ml Documented by: Amlodipine Besylate (Norvasc) 10 mg PO DAILY [facility] Last Admin: 09/11/19 10:03 Dose: 10 mg Documented by: Atorvastatin Calcium (Lipitor) 20 mg PO QHS [facility] Last Admin: 09/11/19 22:15 Dose: 20 mg Documented by: Calcitriol (Rocaltrol) 1.75 mcg PO X1 [facility] Stop: 09/12/19 16:00 Cyclobenzaprine HCl (Flexeril) 10 mg PO TID PRN PRN PRN Reason: SPASMS Epoetin Sin-epbx (Retacrit) 6,000 units IV X1 [facility] Stop: 09/12/19 16:00 Fluticasone Propionate (Flonase Nasal [place]) 1 spray NASAL DAILY [facility] Last Admin: 09/11/19 10:22 Dose: Not Given Documented by: Furosemide (Lasix) 80 mg PO BIDLX [facility] Last Admin: 09/11/19 18:52 Dose: 80 mg Documented by: Glucagon () 1 mg IM .X1 PRN PRN Reason: Hypoglycemia Heparin Sodium (Porcine) (Heparin Na) 5,000 unit SC Q8 [facility] Last Admin: 09/12/19 06:07 Dose: 5,000 unit Documented by: Hydralazine HCl (Apresoline Iv) 5 mg IV Q4H PRN PRN PRN Reason: SBP > 160 Last Admin: 09/09/19 22:24 Dose: 5 mg Documented by: Vancomycin IV Pharmacy to Dose (1 ea/ Sodium Chloride) 500 mls @ 250 mls/hr IV PRN PRN; Protocol Dextrose (Dextrose 10%-Water) 250 mls @ 999 mls/hr IV .Q16M PRN; Protocol PRN Reason: HYPOGLYCEMIA Sodium Chloride () 250 mls @ 15 mls/hr IV .[id number] PRN PRN Reason: Saline Flush Last Infusion: 09/12/19 03:16 Dose: 15 mls/hr Documented by: Sodium Chloride () 250 mls @ 15 mls/hr IV .[id number] PRN PRN Reason: Additional IVPB Infusion Vancomycin HCl () 500 mg in 100 mls @ 100 mls/hr IV X1 [facility] Stop: 09/12/19 16:59 Cefazolin Sodium () 1 gm in 50 mls @ 100 mls/hr IV Q24H [facility] Insulin Human Lispro (Humalog Kwikpen (Bkc)) 0 unit SC Q4 [facility]; Protocol Last Admin: 09/12/19 06:09 Dose: Not Given Documented by: Isosorbide Mononitrate (Imdur) 30 mg PO DAILY [facility] Last Admin: 09/11/19 10:03 Dose: 30 mg Documented by: Melatonin (Melatonin) 3 mg PO QHS PRN PRN PRN Reason: INSOMNIA Last Admin: 09/11/19 22:17 Dose: 3 mg Documented by: Methadone HCl () 2.5 mg PO BID [facility] Last Admin: 09/11/19 22:15 Dose: 2.5 mg Documented by: Metoprolol Tartrate (Lopressor (Beta Emmanuel)) 50 mg PO BID [facility] Last Admin: 09/11/19 22:16 Dose: 50 mg Documented by: Metronidazole (Flagyl) 500 mg PO TID [facility] Multivit/Ca Carb/B Cmplx/FA/Prenat (Nephrocaps, Renaphro) 1 capsule PO DAILY [facility] Last Admin: 09/11/19 10:04 Dose: 1 capsule Documented by: Multivitamins/Minerals (Healthy Eyes (Bkc)) 1 capsule PO DAILY [facility] Last Admin: 09/11/19 10:04 Dose: 1 capsule Documented by: Ondansetron HCl (Zofran) 4 mg IV Q6H PRN PRN PRN Reason: NAUSEA/VOMITING Last Admin: 09/12/19 06:21 Dose: 4 mg Documented by: Oxycodone HCl (Oxyir) 5 mg PO Q6H PRN PRN PRN Reason: Pain Score 6-10/10 Last Admin: 09/11/19 22:17 Dose: 5 mg Documented by: Pantoprazole Sodium (Protonix) 40 mg PO DAILY [facility] Last Admin: 09/11/19 10:04 Dose: 40 mg Documented by: Promethazine HCl (Phenergan) 12.5 mg IM Q4H PRN PRN PRN Reason: NAUSEA/VOMITING Senna/Docusate Sodium (Senokot-S, Amanda-Colace) 2 tablet PO BID PRN PRN PRN Reason: Constipation Last Admin: 09/11/19 22:16 Dose: 2 tablet Documented by: Sertraline HCl (Zoloft) 25 mg PO DAILY [facility] Last Admin: 09/11/19 10:02 Dose: 25 mg Documented by: Sevelamer Carbonate (Renvela) 2,400 mg PO TIDCM [facility] Last Admin: 09/12/19 09:18 Dose: Not Given Documented by: Sodium Chloride () 10 - 40 ml IV UD PRN PRN Reason: SALINE FLUSH Last Admin: 09/12/19 06:21 Dose: 10 ml Documented by: Trazodone HCl (Desyrel) 50 mg PO QHS [facility] Last Admin: 09/11/19 22:15 Dose: 50 mg Documented by: Medical Necessity - Tobacco Use Smoking Status: Never smoker Assessment/Plan All Active Problems (Last Reviewed 09/08/19 @ 23:[address] Eze Rivera MD) Diabetic foot ulcer (Acute) Diabetic foot infection (Acute) 1. End-stage renal disease hemodialysis seen on dialysis. fluid removal for hyponatremia as tolerated 2. Diabetic foot ulcer with osteo left foot s/p fifth toe amputation antibx per ID 3. Type II DM 4. hypertension with stable blood pressures 5. Anemia TERESA on dialysis 6. MOrbid obesity, SELMA on BiPAP at home.
--- NOTE | 2019-09-12 14:28 | DIALYSIS ---
HD x 4 hours and 15 minutes complete. Tolerated tx well. Ran on 2k bath. UF of 2800ml. Used right arm access. [place] removed post tx and pressure applied to sites x 10 minutes. Hemostasis achieved. Fresh gauze and tape applied. C/o nausea during tx, JOE Vasquez will give Calcitriol when pt is able to tolerate taking oral medication. Epogen given as ordered. Report given to Joe Vasquez.
[2019-09-12] MEDS: proMETHazine 25 MG/ML Syringe 12.5 MG IM ×2 (14:50→22:49)
[2019-09-12] MEDS: Calcitriol 0.25 MCG Capsule 1.75 MCG PO (15:55)
[2019-09-12] MEDS: Cefazolin 1 GM/50 ML BAG IV (15:56)
[2019-09-12] MEDS: Folic Acid/Vitamin B Comp W-C 1 Capsule 1 CAP PO (15:58)
[2019-09-12] MEDS: metroNIDAZOLE 500 MG Tablet PO ×2 (15:58→22:29)
[2019-09-12] MEDS: amLODIPine 10 MG Tablet PO (15:58)
[2019-09-12] MEDS: Isosorbide Mononitrate 30 MG Tablet PO (15:59)
[2019-09-12] MEDS: Sertraline 50 MG Tablet 25 MG PO (15:59)
[2019-09-12] MEDS: Pantoprazole Sodium 40 MG Tablet PO (15:59)
[2019-09-12] MEDS: Furosemide 80 MG Tablet PO (15:59)
[2019-09-12] MEDS: Metoprolol Tartrate 50 MG Tablet PO ×2 (16:00→22:29)
[2019-09-12] MEDS: Multivitamin (Healthy Eyes) Capsule 1 CAP PO (16:00)
[2019-09-12 16:16] LABS: Bedside Glucose 145 mg/dL (70-110)
[2019-09-12] MEDS: Vancomycin IV 500 MG/100 ML BAG 100 MG IV (16:40)
[2019-09-12] MEDS: SEVELAMER CARBONATE 800 MG TABLET 2400 MG PO (18:17)
[2019-09-12 18:26] LABS: Bedside Glucose 165 mg/dL (70-110)
[2019-09-12] MEDS: traZODone 50 MG Tablet PO (22:29)
[2019-09-12] MEDS: Atorvastatin Calcium 20 MG Tablet PO (22:29)
[2019-09-12 22:46] LABS: Bedside Glucose 176 mg/dL (70-110)
[2019-09-13 02:20] VITALS: BP 149/74; PULSE 61; RESP 16; TEMP 36.6; O2SAT 98
[2019-09-13 02:30] LABS: Bedside Glucose 136 mg/dL (70-110)
[2019-09-13] MEDS: Heparin Injection (Vial) 5,000 UNIT/ML VIAL 5000 UNIT SC ×2 (06:05→14:39)
[2019-09-13] MEDS: metroNIDAZOLE 500 MG Tablet PO ×2 (06:05→14:49)
[2019-09-13 06:11] LABS: Bedside Glucose 115 mg/dL (70-110)
--- NOTE | 2019-09-13 07:07 | PCM.PROGNOTE ---
Patient Problems: Active and Suspected Problems (Last Reviewed 09/08/19 @ 23:[address] Eze Rivera MD) Diabetic foot ulcer (Acute) Diabetic foot infection (Acute) Subjective: Patient was seen this morning for follow up on left foot. No fever, no chills. Patient afebrile. He relates to nausea. His is at bedside. Patient relates he is constipated. - Physical Exam Vitals/I&O's: Vital Signs Temp Pulse Resp BP Pulse Ox 97.8 F 61 16 149/74 H 98 09/13/19 02:20 09/13/19 02:20 09/13/19 02:20 09/13/19 02:20 09/13/19 02:20 Oxygen Flow Rate (L/min) 3 Oxygen Delivery Method Nasal Cannula Weight: 110.1 kg Body Mass Index (BMI) 38.0 Finger Stick Blood Glucose 410 Intake and Output for Last 24 Hours 09/11/19 09/12/19 09/13/19 23:59 23:59 23:59 Intake Total 1555 / 1855 1220.0 / 1220.0 Output Total 350 / 550 200 / 200 Balance 1205 / 1305 1020.0 / 1020.0 General: Alert, Oriented x3, Cooperative, No apparent distress Extremities: Capillary Refill Less than 3 Seconds, No Calf Tenderness, - - s/p left 5th ray debridement - bleeding appears to have stopped at this time, tissues healthy and viable with no maloder, no fluctuance, no crepitus, no drainage, no visible abscess, and no cellulitis at this time. No new areas of tissue break down to the left foot. No evidence of ischemia to the left foot. Microbiology Past 72 Hours 09/08/19 19:45 Wound - Left Foot Gram Stain - Final 09/08/19 19:45 Wound - Left Foot Wound Culture - Preliminary Corynebacterium striatum Corynebacterium amycolatum/xer Corynebacterium minutissimum Gram positive renee 09/08/19 19:45 Wound - Left Foot Anaerobic Culture - Preliminary Checking for anaerobes, further studies to follow. 09/09/19 12:44 Bone - Left Foot Gram Stain - Final 09/09/19 12:44 Bone - Left Foot Wound Culture - Final Escherichia coli 09/09/19 12:44 Bone - Left Foot Anaerobic Culture - Final No anaerobic bacteria isolated. 09/08/19 20:00 Blood Culture (Wb) - Anticubital Left Blood Culture - Preliminary No growth in 48 hours. 09/08/19 19:10 Blood Culture (Wb) - Arm Left Blood Culture - Preliminary No growth in 48 hours. 09/09/19 12:44 Bone - Left Foot Gram Stain - Final 09/09/19 12:44 Bone - Left Foot Wound Culture - Final Streptococcus group C 09/09/19 12:44 Bone - Left Foot Anaerobic Culture - Preliminary Checking for anaerobes, further studies to follow. Laboratory Results 09/12/19 06:08: POC Glucose 124 H 09/12/19 06:55: WBC 7.5, RBC 3.12 L, Hgb 8.8 L, Hct 27.7 L, MCV 88.8, MCH 28.2, MCHC 31.8 L, RDW Std Deviation 46.7 H, RDW Coeff of Roberto 14.9 H, Plt Count 256, MPV 9.0 09/12/19 06:55: Sodium 131 L, Potassium 4.2, Chloride 94 L, Carbon Dioxide 29.0, Anion Gap 8, BUN 38 H, Creatinine 6.10 H, Estim Creat Clear Calc 13.39, Est GFR (MDRD) Af Amer 13 L, Est GFR (MDRD) Non-Af 10 L, BUN/Creatinine Ratio 6.2 L, Glucose 134 H, Calcium 8.3 L 09/12/19 06:55: Random Vancomycin 17.0 H 09/12/19 16:07: POC Glucose 145 H 09/12/19 18:15: POC Glucose 165 H 09/12/19 22:27: POC Glucose 176 H 09/13/19 02:20: POC Glucose 136 H 09/13/19 06:04: POC Glucose 115 H Current Medications Acetaminophen (Tylenol) 650 mg PO Q6H PRN PRN PRN Reason: Pain Score 1-10/Temp > 100.7 F Last Admin: 09/11/19 22:17 Dose: 650 mg Documented by: Albuterol/Ipratropium (Duoneb) 3 ml INHALATION Q4H.RT PRN PRN Reason: sob/wheezing Last Admin: 09/11/19 21:51 Dose: 3 ml Documented by: Amlodipine Besylate (Norvasc) 10 mg PO DAILY [facility] Last Admin: 09/12/19 15:58 Dose: 10 mg Documented by: Atorvastatin Calcium (Lipitor) 20 mg PO QHS [facility] Last Admin: 09/12/19 22:29 Dose: 20 mg Documented by: Cyclobenzaprine HCl (Flexeril) 10 mg PO TID PRN PRN PRN Reason: SPASMS Fluticasone Propionate (Flonase Nasal [place]) 1 spray NASAL DAILY [facility] Last Admin: 09/12/19 16:37 Dose: Not Given Documented by: Furosemide (Lasix) 80 mg PO BIDLX [facility] Last Admin: 09/12/19 18:11 Dose: Not Given Documented by: Glucagon () 1 mg IM .X1 PRN PRN Reason: Hypoglycemia Heparin Sodium (Porcine) (Heparin Na) 5,000 unit SC Q8 [facility] Last Admin: 09/13/19 06:05 Dose: 5,000 unit Documented by: Hydralazine HCl (Apresoline Iv) 5 mg IV Q4H PRN PRN PRN Reason: SBP > 160 Last Admin: 09/09/19 22:24 Dose: 5 mg Documented by: Vancomycin IV Pharmacy to Dose (1 ea/ Sodium Chloride) 500 mls @ 250 mls/hr IV PRN PRN; Protocol Dextrose (Dextrose 10%-Water) 250 mls @ 999 mls/hr IV .Q16M PRN; Protocol PRN Reason: HYPOGLYCEMIA Sodium Chloride () 250 mls @ 15 mls/hr IV .[id number] PRN PRN Reason: Saline Flush Last Infusion: 09/12/19 22:34 Dose: Infused Documented by: Sodium Chloride () 250 mls @ 15 mls/hr IV .[id number] PRN PRN Reason: Additional IVPB Infusion Cefazolin Sodium () 1 gm in 50 mls @ 100 mls/hr IV Q24H [facility] Last Infusion: 09/12/19 16:26 Dose: Infused Documented by: Insulin Human Lispro (Humalog Kwikpen (Bkc)) 0 unit SC Q4 [facility]; Protocol Last Admin: 09/13/19 06:05 Dose: Not Given Documented by: Isosorbide Mononitrate (Imdur) 30 mg PO DAILY [facility] Last Admin: 09/12/19 15:59 Dose: 30 mg Documented by: Melatonin (Melatonin) 3 mg PO QHS PRN PRN PRN Reason: INSOMNIA Last Admin: 09/11/19 22:17 Dose: 3 mg Documented by: Methadone HCl () 2.5 mg PO BID [facility] Last Admin: 09/12/19 22:29 Dose: 2.5 mg Documented by: Metoprolol Tartrate (Lopressor (Beta Emmanuel)) 50 mg PO BID [facility] Last Admin: 09/12/19 22:29 Dose: 50 mg Documented by: Metronidazole (Flagyl) 500 mg PO TID [facility] Last Admin: 09/13/19 06:05 Dose: 500 mg Documented by: Multivit/Ca Carb/B Cmplx/FA/Prenat (Nephrocaps, Renaphro) 1 capsule PO DAILY [facility] Last Admin: 09/12/19 15:58 Dose: 1 capsule Documented by: Multivitamins/Minerals (Healthy Eyes (Bkc)) 1 capsule PO DAILY [facility] Last Admin: 09/12/19 16:00 Dose: 1 capsule Documented by: Nutritional Formula ([place] - [place] Flavor) [facility] Last Admin: 09/12/19 18:18 Dose: 1 packet Documented by: Ondansetron HCl (Zofran) 4 mg IV Q6H PRN PRN PRN Reason: NAUSEA/VOMITING Last Admin: 09/12/19 15:55 Dose: 4 mg Documented by: Oxycodone HCl (Oxyir) 5 mg PO Q6H PRN PRN PRN Reason: Pain Score 6-10/10 Last Admin: 09/11/19 22:17 Dose: 5 mg Documented by: Pantoprazole Sodium (Protonix) 40 mg PO DAILY [facility] Last Admin: 09/12/19 15:59 Dose: 40 mg Documented by: Promethazine HCl (Phenergan) 12.5 mg IM Q4H PRN PRN PRN Reason: NAUSEA/VOMITING Last Admin: 09/12/19 22:49 Dose: 12.5 mg Documented by: Senna/Docusate Sodium (Senokot-S, Amanda-Colace) 2 tablet PO BID PRN PRN PRN Reason: Constipation Last Admin: 09/11/19 22:16 Dose: 2 tablet Documented by: Sertraline HCl (Zoloft) 25 mg PO DAILY [facility] Last Admin: 09/12/19 15:59 Dose: 25 mg Documented by: Sevelamer Carbonate (Renvela) 2,400 mg PO TIDCM [facility] Last Admin: 09/12/19 18:17 Dose: 2,400 mg Documented by: Sodium Chloride () 10 - 40 ml IV UD PRN PRN Reason: SALINE FLUSH Last Admin: 09/12/19 06:21 Dose: 10 ml Documented by: Trazodone HCl (Desyrel) 50 mg PO QHS [facility] Last Admin: 09/12/19 22:29 Dose: 50 mg Documented by: Medical Necessity - Tobacco Use Smoking Status: Never smoker Assessment/Plan All Active Problems (Last Reviewed 09/08/19 @ 23:[address] 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 Diabetes with neuropathy Re-evaluation performed. Bleeding appears to be controlled/stopped at this time, however we will hold off on wound vac at this time as this could initiate bleeding. Wound care left foot: Aquacel Ag with overlying gauze, kerlix and lily dressing - change daily. No weightbearing left foot, keep elevated at all times. He is not compliant/adherent with strict elevation of foot at all times. Reviewed with patient it is best to keep foot elevated all of the time to keep bleeding under control. Reviewed culture. Patient on IV antibiotics per ID service/Dr. Wallace. Right foot: healing well. Continue w/ daily dressing changes. From foot standpoint ok to discharge once antibiotics are confirmed. Patient has expressed he would like to go home. Patient will need to follow up with Dr. Bravo (who he normally follows up with for wound care) at wound center on Monday09/18/19 Diabetes and other medical management per medicine team. Podiatry will continue to follow.
--- NOTE | 2019-09-13 07:23 | PCM.DC.POD ---
Weight Bearing Status: No weight bearing - No weightbearing on left foot Keep extremity elevated above heart level: Left Leg - Keep left foot elevated at all times Call your doctor if your incision/area has: Continuous Slow Oozing, Sudden Increased Bleeding, Foul Smelling Discharge Call your doctor if you observe: Fever of 101 or Higher Cleanse incision/area with: - - Wound care left foot: Cleanse w/ normal saline solution, apply aquacel Ag with overlying gauze, kerlix and lily dressing. Change daily. Wound care right foot: Cleanse with normal saline solution. Apply Aquacel Ag with overlying gauze and kerlix dressing. Change daily. Allergies/Adverse Reactions: Allergies venom-honey bee [bee venom (honey bee)] Allergy (Verified 09/08/19 17:56) Swelling sulfamethoxazole [From Bactrim] Adverse Reaction (Verified 09/08/19 17:56) Upset Stomach trimethoprim [From Bactrim] Adverse Reaction (Verified 09/08/19 17:56) Upset Stomach Medications to take at Discharge Atorvastatin Calcium [Lipitor] 20 mg PO QHS 10/11/17 Vits A,C,E/Lutein/Minerals [Ocuvite with Lutein Tablet] 1 ea PO DAILY 10/11/17 Folic Acid/Vitamin B Comp W-C [Nephrocaps, Renaphro] 1 cap PO DAILY 10/27/17 albuterol sulfate 90 mcg/actuation aerosol inhaler 2 puff INHALATION Q4H PRN #18 g 02/26/18 Aspirin E.C. [Ecotrin] 81 mg PO DAILY 03/23/18 Cyclobenzaprine HCl 10 mg PO TID PRN PRN 03/23/18 Fluticasone 0.05% [Flonase Nasal [place]] 1 spray NASAL DAILY 03/23/18 isosorbide mononitrate 30 mg tablet,extended release 24 hr 30 mg PO DAILY #30 tab 07/24/18 Metoprolol Tartrate [Lopressor (beta khoa)] 50 mg PO BID 03/12/19 Omeprazole 40 mg PO DAILY 03/12/19 proMETHazine tablet [Phenergan tablet] 25 mg PO TID PRN 03/13/19 Sevelamer HCl [Renagel] 2,400 mg PO TID #0 03/20/19 traZODone [Desyrel] 50 mg PO QHS 07/06/19 Amlodipine [Norvasc] 10 mg PO DAILY #30 tab 07/12/19 Collagenase [Santyl] 1 applic TOPICAL DAILY tube 07/24/19 Sertraline HCl [Zoloft] 25 mg PO DAILY 08/05/19 Acetaminophen [Tylenol Tablet] 650 mg PO Q6H PRN PRN tab 08/08/19 Insulin Lispro [Humalog KwikPen] 15 unit SUBCUT 0800,1200,1700 insuln.pen 08/08/19 Furosemide [Lasix] 80 mg PO BIDLX #60 tab 08/10/19 Insulin Lispro [Humalog KwikPen] See Protocol SUBCUT ACHS 08/10/19 Ipratropium/Albuterol Sulfate [Duoneb] 3 ml INHALATION Q6H #120 ampul.neb 08/14/19 Cephalexin [Keflex] 500 mg PO Q6 #28 cap 09/04/19 Oxycodone [Oxyir] 5 mg PO Q6H PRN PRN 09/04/19 Methadone HCl 2.5 mg PO BID 09/08/19 Primary Care Physician: Augie Washburn MD [Primary Care Provider] - Test Results: Test results from this visit will be discussed in further detail at your follow-up appointment, if applicable. Please Follow Up With: Brea Bravo DPM When: on Monday09/18/19 at [facility]
[2019-09-13 07:39] LABS: Anion Gap 6 (5-15); BUN 24 mg/dL (7-18); BUN/Creat Ratio 5.8 RATIO (10-20); Calcium,Total 8.3 mg/dL (8.5-10.1); Chloride 97 mmol/L (98-107); Creatinine, Serum 4.11 mg/dL (0.70-1.30); EST Glomerular Filtration Rate 16 mL/min (>60); Est Glom Filt Rate - Afr Amer 20 mL/min (>60); Estimated Creatinine Clearance 19.88 ml/min; Glucose 109 mg/dL (74-106); Potassium 3.8 mmol/L (3.5-5.1); Sodium Level 133 mmol/L (136-145)
[2019-09-13 07:42] LABS: Hematocrit 27.3 % (40-54); Hemoglobin 8.5 g/dL (13.0-16.5); Mean Corp Hgb Conc 31.1 g/dL (32-36); Mean Corpuscular Volume 89.8 fL (80-94); Mean Platelet Vol. 9.1 fl (6.2-12.0); Platelet Count 274 K/mm3 (150-450); RBC Distribution Width CV 15.7 % (11.6-14.6); RBC Distribution Width SD 49.1 fl (35.1-43.9); Red Blood Count 3.04 M/mm3 (4.6-6.2); White Blood Count 7.5 K/mm3 (4.4-11.0)
[2019-09-13 09:50] VITALS: BP 150/75; PULSE 65; RESP 14; TEMP 37; O2SAT 100
[2019-09-13] MEDS: Isosorbide Mononitrate 30 MG Tablet PO (09:53)
[2019-09-13 09:54] VITALS: PULSE 65
[2019-09-13] MEDS: Multivitamin (Healthy Eyes) Capsule 1 CAP PO (09:54)
[2019-09-13] MEDS: Metoprolol Tartrate 50 MG Tablet PO (09:54)
[2019-09-13] MEDS: Insulin Lispro 100 UNIT/ML INSULN.PEN SC ×2 (09:54→14:41)
[2019-09-13] MEDS: Furosemide 80 MG Tablet PO ×2 (09:54→17:54)
[2019-09-13] MEDS: Fluticasone 0.05% 1 SPRAY NASAL.SRY NASAL (09:55)
[2019-09-13] MEDS: SEVELAMER CARBONATE 800 MG TABLET 2400 MG PO ×3 (10:06→17:54)
[2019-09-13] MEDS: Sertraline 50 MG Tablet 25 MG PO (10:06)
[2019-09-13] MEDS: amLODIPine 10 MG Tablet PO (10:06)
[2019-09-13] MEDS: Pantoprazole Sodium 40 MG Tablet PO (10:06)
[2019-09-13] MEDS: Folic Acid/Vitamin B Comp W-C 1 Capsule 1 CAP PO (10:06)
[2019-09-13] MEDS: Senna/Docusate Sodium 1 Tablet 2 TABLET PO ×2 (10:06→14:38)
[2019-09-13 10:15] LABS: Bedside Glucose 159 mg/dL (70-110)
--- NOTE | 2019-09-13 11:46 | CASEMGMT ---
Addendum entered by Ade Kitchen 09/13/19 16:04: WILFREDO received call from Renetta at [facility] stating pre-cert has been obtained and pt is able to discharge today. Renetta asked if pt is able to bring in home bipap and asked if [facility] needs to be updated on picking pt up at [facility]. WILFREDO informed Renetta that this worker is off the floor and is leaving for the day and to call [facility] number, ([facility] number provided), and then update staff that pre-cert has been obtained. WILFREDO informed Renetta that pt is alert and orientated and is able to call [facility] himself to arrange transport. WILFREDO informed Renetta that this worker is not sure if pt is medically cleared or not and if pt is at [facility] tomorrow then pt will be able to get dialysis at [facility] tomorrow and then discharge. WILFREDO informed Renetta to when she calls [facility] floor to also ask staff to ask pt about bring bipap in from home. Renetta states she will call [facility] number and ask staff. Plan: [facility] when medically cleared. Addendum entered by Ade Kitchen 09/13/19 13:40: WILFREDO received call from Renetta at [facility]. Renetta states they are restricting access for visitors at this time and to make sure pt's family knows this and then states [facility] is able to accept pt and will submit for pre-cert. WILFREDO updated pt and pt's on this. Pt and pt's agreeable to [facility]. WILFREDO updated pt and pt's that pre-cert will need to be obtained and that likely won't be today so pt will likely be at [facility] through weekend. Pt and pt's state understanding. WILFREDO completed [facility]valescent 7000 in [place]. Original, green sheet and transport form on pt's chart in the event pre-cert is obtained. Plan: [facility] pending pre-cert Original Note: Social Work Note WILFREDO updated that pt is agreeable to SNF and prefers [facility]. WILFREDO placed a call to Zaida at [facility] and provided referral. Zaida states pt has been to [facility] before and is not able to accept pt back. WILFREDO in to speak with pt and pt's present in room. WILFREDO introduced self and role at [facility]. Pt is alert and orientated x3. Pt confirms that he is agreeable to SNF and would like [facility]. SW updated pt that this worker called [facility] and they are not able to accept pt. SW provided pt with list of SNF that accept pt's insurance. Pt states next choice is [facility]. SW placed a call to [facility] and spoke with Renetta and provided referral. SW faxed referral. Plan: SNF pending acceptance and pre-cert Ade Kitchen [employer]
--- NOTE | 2019-09-13 13:34 | PN_ITS ---
Patient Problems: Active and Suspected Problems (Last Reviewed 09/08/19 @ 23:[address] Eze Rivera MD) Diabetic foot ulcer (Acute) Diabetic foot infection (Acute) Reason for Visit: Follow-up diabetic foot ulcer status post surgery. Wound VAC was canceled as patient has recurrent bleeding on the operative wound. Discussed with venue coordinator in the morning. Although initially patient was skeptical for going to rehab but he agreed Vitals/I&O's: Vital Signs Temp Pulse Resp BP Pulse Ox 98.6 F 65 14 150/75 H 100 09/13/19 09:50 09/13/19 09:54 09/13/19 09:50 09/13/19 09:50 09/13/19 09:50 Oxygen Flow Rate (L/min) 3.5 Oxygen Delivery Method Nasal Cannula Weight: 242 lb 11.663 oz Body Mass Index (BMI) 38.0 Finger Stick Blood Glucose 410 Intake and Output for Last 24 Hours 09/11/19 09/12/19 09/13/19 23:59 23:59 23:59 Intake Total 1555 / 1855 1220.0 / 1220.0 150 / 150 Output Total 350 / 550 200 / 200 150 / 150 Balance 1205 / 1305 1020.0 / 1020.0 0 / 0 General: Alert, Oriented x3, Cooperative HEENT: Atraumatic, PERRLA, EOMI, Normocephalic Neck: Supple, No JVD, Negative Carotid Bruits Lungs: Clear to auscultation, No rhonchi, No wheeze, No rales, Diminished Cardiovascular: Regular rate, Regular Rhythm, Normal S1, Normal S2, No murmurs Abdomen: Bowel Sounds Present, Soft, Non Tender, Non-Distended Extremities: Capillary Refill Less than 3 Seconds, Edema Skin: Ulcer/ Wound - Left foot lateral margin status post excision. Superficial ulcer on the lateral margin of right foot Musculoskeletal: No Tenderness to Palpation of Joints or Extremities, Arthritic Changes, Muscle Wasting Neurological: Cranial nerves II-XII grossly intact, Deep Tendon Reflexes 2+/4 and Symmetrical, - - Mild muscle atrophy of leg muscles Psych/Mental Status: Normal Affect, Appropriate Microbiology Past 72 Hours 09/08/19 19:45 Wound - Left Foot Gram Stain - Final 09/08/19 19:45 Wound - Left Foot Wound Culture - Final Corynebacterium striatum Corynebacterium amycolatum/xer Corynebacterium minutissimum Corynebact. pseudodiphtheritic Actinomyces odontolyticus 09/08/19 19:45 Wound - Left Foot Anaerobic Culture - Final Anaerobic cocci 09/09/19 12:44 Bone - Left Foot Gram Stain - Final 09/09/19 12:44 Bone - Left Foot Wound Culture - Final Streptococcus group C 09/09/19 12:44 Bone - Left Foot Anaerobic Culture - Final Anaerobic cocci 09/09/19 12:44 Bone - Left Foot Gram Stain - Final 09/09/19 12:44 Bone - Left Foot Wound Culture - Final Escherichia coli 09/09/19 12:44 Bone - Left Foot Anaerobic Culture - Final No anaerobic bacteria isolated. 09/08/19 20:00 Blood Culture (Wb) - Anticubital Left Blood Culture - Preliminary No growth in 48 hours. 09/08/19 19:10 Blood Culture (Wb) - Arm Left Blood Culture - Preliminary No growth in 48 hours. Laboratory Results 09/12/19 16:07: POC Glucose 145 H 09/12/19 18:15: POC Glucose 165 H 09/12/19 22:27: POC Glucose 176 H 09/13/19 02:20: POC Glucose 136 H 09/13/19 06:04: POC Glucose 115 H 09/13/19 06:35: Sodium 133 L, Potassium 3.8, Chloride 97 L, Carbon Dioxide 30.0, Anion Gap 6, BUN 24 H, Creatinine 4.11 H, Estim Creat Clear Calc 19.88, Est GFR (MDRD) Af Amer 20 L, Est GFR (MDRD) Non-Af 16 L, BUN/Creatinine Ratio 5.8 L, Glucose 109 H, Calcium 8.3 L 09/13/19 07:28: WBC 7.5, RBC 3.04 L, Hgb 8.5 L, Hct 27.3 L, MCV 89.8, MCH 28.0, MCHC 31.1 L, RDW Std Deviation 49.1 H, RDW Coeff of Roberto 15.7 H, Plt Count 274, MPV 9.1 09/13/19 09:41: POC Glucose 159 H Current Medications Acetaminophen (Tylenol) 650 mg PO Q6H PRN PRN PRN Reason: Pain Score 1-10/Temp > 100.7 F Last Admin: 09/11/19 22:17 Dose: 650 mg Documented by: Albuterol/Ipratropium (Duoneb) 3 ml INHALATION Q4H.RT PRN PRN Reason: sob/wheezing Last Admin: 09/11/19 21:51 Dose: 3 ml Documented by: Amlodipine Besylate (Norvasc) 10 mg PO DAILY [facility] Last Admin: 09/13/19 10:06 Dose: 10 mg Documented by: Atorvastatin Calcium (Lipitor) 20 mg PO QHS [facility] Last Admin: 09/12/19 22:29 Dose: 20 mg Documented by: Bisacodyl (Dulcolax) 10 mg RECTAL DAILY [facility] Stop: 09/14/19 10:01 Cyclobenzaprine HCl (Flexeril) 10 mg PO TID PRN PRN PRN Reason: SPASMS Fluticasone Propionate (Flonase Nasal [place]) 1 spray NASAL DAILY [facility] Last Admin: 09/13/19 09:55 Dose: 1 spray Documented by: Furosemide (Lasix) 80 mg PO BIDLX [facility] Last Admin: 09/13/19 09:54 Dose: 80 mg Documented by: Glucagon () 1 mg IM .X1 PRN PRN Reason: Hypoglycemia Heparin Sodium (Porcine) (Heparin Na) 5,000 unit SC Q8 [facility] Last Admin: 09/13/19 06:05 Dose: 5,000 unit Documented by: Hydralazine HCl (Apresoline Iv) 5 mg IV Q4H PRN PRN PRN Reason: SBP > 160 Last Admin: 09/09/19 22:24 Dose: 5 mg Documented by: Vancomycin IV Pharmacy to Dose (1 ea/ Sodium Chloride) 500 mls @ 250 mls/hr IV PRN PRN; Protocol Dextrose (Dextrose 10%-Water) 250 mls @ 999 mls/hr IV .Q16M PRN; Protocol PRN Reason: HYPOGLYCEMIA Sodium Chloride () 250 mls @ 15 mls/hr IV .[id number] PRN PRN Reason: Saline Flush Last Infusion: 09/12/19 22:34 Dose: Infused Documented by: Sodium Chloride () 250 mls @ 15 mls/hr IV .[id number] PRN PRN Reason: Additional IVPB Infusion Cefazolin Sodium () 1 gm in 50 mls @ 100 mls/hr IV Q24H [facility] Last Infusion: 09/12/19 16:26 Dose: Infused Documented by: Insulin Human Lispro (Humalog Kwikpen (Bkc)) 0 unit SC Q4 [facility]; Protocol Last Admin: 09/13/19 09:54 Dose: 2 u Documented by: Isosorbide Mononitrate (Imdur) 30 mg PO DAILY [facility] Last Admin: 09/13/19 09:53 Dose: 30 mg Documented by: Melatonin (Melatonin) 3 mg PO QHS PRN PRN PRN Reason: INSOMNIA Last Admin: 09/11/19 22:17 Dose: 3 mg Documented by: Methadone HCl () 2.5 mg PO BID [facility] Last Admin: 09/13/19 09:55 Dose: 2.5 mg Documented by: Metoprolol Tartrate (Lopressor (Beta Emmanuel)) 50 mg PO BID [facility] Last Admin: 09/13/19 09:54 Dose: 50 mg Documented by: Metronidazole (Flagyl) 500 mg PO TID [facility] Last Admin: 09/13/19 06:05 Dose: 500 mg Documented by: Multivit/Ca Carb/B Cmplx/FA/Prenat (Nephrocaps, Renaphro) 1 capsule PO DAILY [facility] Last Admin: 09/13/19 10:06 Dose: 1 capsule Documented by: Multivitamins/Minerals (Healthy Eyes (Bk)) 1 capsule PO DAILY [facility] Last Admin: 09/13/19 09:54 Dose: 1 capsule Documented by: Nutritional Formula ([place]ortez - [place] Flavor) [facility] Last Admin: 09/13/19 12:05 Dose: 1 packet Documented by: Ondansetron HCl (Zofran) 4 mg IV Q6H PRN PRN PRN Reason: NAUSEA/VOMITING Last Admin: 09/12/19 15:55 Dose: 4 mg Documented by: Oxycodone HCl (Oxyir) 5 mg PO Q6H PRN PRN PRN Reason: Pain Score 6-10/10 Last Admin: 09/11/19 22:17 Dose: 5 mg Documented by: Pantoprazole Sodium (Protonix) 40 mg PO DAILY [facility] Last Admin: 09/13/19 10:06 Dose: 40 mg Documented by: Polyethylene Glycol (Miralax) 17 gm PO DAILY [facility] Promethazine HCl (Phenergan) 12.5 mg IM Q4H PRN PRN PRN Reason: NAUSEA/VOMITING Last Admin: 09/12/19 22:49 Dose: 12.5 mg Documented by: Senna/Docusate Sodium (Senokot-S, Amanda-Colace) 2 tablet PO BID [facility] Sertraline HCl (Zoloft) 25 mg PO DAILY [facility] Last Admin: 09/13/19 10:06 Dose: 25 mg Documented by: Sevelamer Carbonate (Renvela) 2,400 mg PO TIDCM [facility] Last Admin: 09/13/19 12:58 Dose: 2,400 mg Documented by: Sodium Chloride () 10 - 40 ml IV UD PRN PRN Reason: SALINE FLUSH Last Admin: 09/12/19 06:21 Dose: 10 ml Documented by: Trazodone HCl (Desyrel) 50 mg PO QHS [facility] Last Admin: 09/12/19 22:29 Dose: 50 mg Documented by: STROKE Vital Signs/Narrative: Vital Signs Temp Pulse Resp BP Pulse Ox 09/13/19 09:54 65 09/13/19 09:50 98.6 F 65 14 150/75 H 100 Medical Necessity - Tobacco Use Smoking Status: Never smoker Assessment/Plan All Active Problems (Last Reviewed 09/08/19 @ 23:[address] Eze Rivera MD) Diabetic foot ulcer (Acute) Diabetic foot infection (Acute) Patient is a 49-year-old gentleman with multiple comorbidities including end- stage renal disease on hemodialysis presented with increasing malodorous discharge from the left foot 1. Diabetic foot ulcer infection of the left fifth metatarsal area and superf icial ulcer of lateral right foot, chronic in nature, present on admission ?admitted to regular nursing floor started on broad-spectrum antibiotic therapy with vancomycin and Zosyn. MRSA PCR was positive. ID saw the patient and recommended 6 weeks of IV vancomycin and cefazolin with dialysis. Patient underwent wound debridement of all nonviable infected and necrotic soft tissue and bone from left foot with partial fifth ray amputation by Dr. Shipley 09/12: Wound culture reviewed. Wound left foot shows corynebacterium, actinomyces, Streptococcus group C, anaerobic cocci and E. coli. ID reviewed the patient. Patient had bleeding on the operative site therefore wound VAC was postponed. Patient agreed for rehab. Precertification pending. 2. Chronic hypoxic respiratory failure ?Patient is on baseline home O2 3. End-stage renal disease ?Patient is on hemodialysis on Tuesdays and Saturdays consult placed with Dr. Gregorio for dialysis orders. Ordered serial BMPs for monitoring 4. Obstructive sleep apnea ?Patient is on BiPAP at night plan is to continue 5. Chronic heart failure with preserved ejection fraction ?Echo obtained on 03/16/2019 demonstrated EF of 60%. Patient currently compensated 6. Essential hypertension ?Blood pressure controlled continue with home medications 7. Dyslipidemia ?Patient is on atorvastatin did continue 8. Morbid obesity with BMI of 38 ?Weight loss advised 9. Diabetes mellitus type 2 ?With complications including diabetic nephropathy (end-stage renal disease); Did continue with home insulin regimen in addition to Accu-Cheks before meals and at bedtime with sliding scale coverage 10. Anemia secondary to anemia of ESRD ?Monitoring H&H with plans to transfuse if hemoglobin falls below 7 or patient becomes symptomatic 11. GERD ?Patient on PPI 12. DVT prophylaxis ?SC heparin 13. Trouble nausea vomiting ?Suspected to be secondary to gastritis added IM Phenergan for symptomatic control Total time of the visit including total time spent in counseling or coordination of care, (more than 50% of the total time, spent in obtaining medical information from nurses and other ancillary care providers), coordination of c are with venue coordinator, ID, discussion with patient and his regarding hospital course, review of labs and imaging is 30 minutes Microbiology Past 72 Hours 09/08/19 19:45 Wound - Left Foot Gram Stain - Final 09/08/19 19:45 Wound - Left Foot Wound Culture - Final Corynebacterium striatum Corynebacterium amycolatum/xer Corynebacterium minutissimum Corynebact. pseudodiphtheritic Actinomyces odontolyticus 09/08/19 19:45 Wound - Left Foot Anaerobic Culture - Final Anaerobic cocci 09/09/19 12:44 Bone - Left Foot Gram Stain - Final 09/09/19 12:44 Bone - Left Foot Wound Culture - Final Streptococcus group C 09/09/19 12:44 Bone - Left Foot Anaerobic Culture - Final Anaerobic cocci 09/09/19 12:44 Bone - Left Foot Gram Stain - Final 09/09/19 12:44 Bone - Left Foot Wound Culture - Final Escherichia coli 09/09/19 12:44 Bone - Left Foot Anaerobic Culture - Final No anaerobic bacteria isolated. 09/08/19 20:00 Blood Culture (Wb) - Anticubital Left Blood Culture - Preliminary No growth in 48 hours. 09/08/19 19:10 Blood Culture (Wb) - Arm Left Blood Culture - Preliminary No growth in 48 hours. Laboratory Results 09/12/19 16:07: POC Glucose 145 H 09/12/19 18:15: POC Glucose 165 H 09/12/19 22:27: POC Glucose 176 H 09/13/19 02:20: POC Glucose 136 H 09/13/19 06:04: POC Glucose 115 H 09/13/19 06:35: Sodium 133 L, Potassium 3.8, Chloride 97 L, Carbon Dioxide 30.0, Anion Gap 6, BUN 24 H, Creatinine 4.11 H, Estim Creat Clear Calc 19.88, Est GFR (MDRD) Af Amer 20 L, Est GFR (MDRD) Non-Af 16 L, BUN/Creatinine Ratio 5.8 L, Glucose 109 H, Calcium 8.3 L 09/13/19 07:28: WBC 7.5, RBC 3.04 L, Hgb 8.5 L, Hct 27.3 L, MCV 89.8, MCH 28.0, MCHC 31.1 L, RDW Std Deviation 49.1 H, RDW Coeff of Roberto 15.7 H, Plt Count 274, MPV 9.1 09/13/19 09:41: POC Glucose 159 H 09/13/19 14:40: POC Glucose 205 H Inpatient E&M: 05090 Subs Hosp L3
[2019-09-13] MEDS: 0.9% Saline Lock 10 ML Syringe IV (14:38)
[2019-09-13] MEDS: Bisacodyl 10 MG Suppository RECTAL (14:38)
[2019-09-13] MEDS: Cefazolin 1 GM/50 ML BAG IV (14:41)
--- NOTE | 2019-09-13 14:43 | PN.RENAL_ITS ---
Patient Problems: Active and Suspected Problems (Last Reviewed 09/08/19 @ 23:[address] Eze Rivera MD) Diabetic foot ulcer (Acute) Diabetic foot infection (Acute) Subjective: no complaints of SOB, edema. Wound vac not applied yet. Drainage from incision site less. - Physical Exam Vitals/I&O's: Vital Signs Temp Pulse Resp BP Pulse Ox 98.6 F 65 14 150/75 H 100 09/13/19 09:50 09/13/19 09:54 09/13/19 09:50 09/13/19 09:50 09/13/19 09:50 Oxygen Flow Rate (L/min) 3.5 Oxygen Delivery Method Nasal Cannula Weight: 110.1 kg Body Mass Index (BMI) 38.0 Finger Stick Blood Glucose 410 Intake and Output for Last 24 Hours 09/11/19 09/12/19 09/13/19 23:59 23:59 23:59 Intake Total 1555 / 1855 1220.0 / 1220.0 150 / 150 Output Total 350 / 550 200 / 200 150 / 150 Balance 1205 / 1305 1020.0 / 1020.0 0 / 0 General: Alert, Oriented x3, Cooperative, No apparent distress Lungs: Clear to auscultation Cardiovascular: Regular rate Extremities: No edema, - - left foot wrapped Musculoskeletal: No Muscle Wasting Psych/Mental Status: Alert and oriented to time, place, person, mood and affect Microbiology Past 72 Hours 09/08/19 19:45 Wound - Left Foot Gram Stain - Final 09/08/19 19:45 Wound - Left Foot Wound Culture - Final Corynebacterium striatum Corynebacterium amycolatum/xer Corynebacterium minutissimum Corynebact. pseudodiphtheritic Actinomyces odontolyticus 09/08/19 19:45 Wound - Left Foot Anaerobic Culture - Final Anaerobic cocci 09/09/19 12:44 Bone - Left Foot Gram Stain - Final 09/09/19 12:44 Bone - Left Foot Wound Culture - Final Streptococcus group C 09/09/19 12:44 Bone - Left Foot Anaerobic Culture - Final Anaerobic cocci 09/09/19 12:44 Bone - Left Foot Gram Stain - Final 09/09/19 12:44 Bone - Left Foot Wound Culture - Final Escherichia coli 09/09/19 12:44 Bone - Left Foot Anaerobic Culture - Final No anaerobic bacteria isolated. 09/08/19 20:00 Blood Culture (Wb) - Anticubital Left Blood Culture - Preliminary No growth in 48 hours. 09/08/19 19:10 Blood Culture (Wb) - Arm Left Blood Culture - Preliminary No growth in 48 hours. Laboratory Results 09/12/19 16:07: POC Glucose 145 H 09/12/19 18:15: POC Glucose 165 H 09/12/19 22:27: POC Glucose 176 H 09/13/19 02:20: POC Glucose 136 H 09/13/19 06:04: POC Glucose 115 H 09/13/19 06:35: Sodium 133 L, Potassium 3.8, Chloride 97 L, Carbon Dioxide 30.0, Anion Gap 6, BUN 24 H, Creatinine 4.11 H, Estim Creat Clear Calc 19.88, Est GFR (MDRD) Af Amer 20 L, Est GFR (MDRD) Non-Af 16 L, BUN/Creatinine Ratio 5.8 L, Glucose 109 H, Calcium 8.3 L 09/13/19 07:28: WBC 7.5, RBC 3.04 L, Hgb 8.5 L, Hct 27.3 L, MCV 89.8, MCH 28.0, MCHC 31.1 L, RDW Std Deviation 49.1 H, RDW Coeff of Roberto 15.7 H, Plt Count 274, M PV 9.1 09/13/19 09:41: POC Glucose 159 H Current Medications Acetaminophen (Tylenol) 650 mg PO Q6H PRN PRN PRN Reason: Pain Score 1-10/Temp > 100.7 F Last Admin: 09/11/19 22:17 Dose: 650 mg Documented by: Albuterol/Ipratropium (Duoneb) 3 ml INHALATION Q4H.RT PRN PRN Reason: sob/wheezing Last Admin: 09/11/19 21:51 Dose: 3 ml Documented by: Amlodipine Besylate (Norvasc) 10 mg PO DAILY [facility] Last Admin: 09/13/19 10:06 Dose: 10 mg Documented by: Atorvastatin Calcium (Lipitor) 20 mg PO QHS [facility] Last Admin: 09/12/19 22:29 Dose: 20 mg Documented by: Bisacodyl (Dulcolax) 10 mg RECTAL DAILY [facility] Stop: 09/14/19 10:01 Cyclobenzaprine HCl (Flexeril) 10 mg PO TID PRN PRN PRN Reason: SPASMS Fluticasone Propionate (Flonase Nasal [place]) 1 spray NASAL DAILY [facility] Last Admin: 09/13/19 09:55 Dose: 1 spray Documented by: Furosemide (Lasix) 80 mg PO BIDLX [facility] Last Admin: 09/13/19 09:54 Dose: 80 mg Documented by: Glucagon () 1 mg IM .X1 PRN PRN Reason: Hypoglycemia Heparin Sodium (Porcine) (Heparin Na) 5,000 unit SC Q8 [facility] Last Admin: 09/13/19 06:05 Dose: 5,000 unit Documented by: Hydralazine HCl (Apresoline Iv) 5 mg IV Q4H PRN PRN PRN Reason: SBP > 160 Last Admin: 09/09/19 22:24 Dose: 5 mg Documented by: Vancomycin IV Pharmacy to Dose (1 ea/ Sodium Chloride) 500 mls @ 250 mls/hr IV PRN PRN; Protocol Dextrose (Dextrose 10%-Water) 250 mls @ 999 mls/hr IV .Q16M PRN; Protocol PRN Reason: HYPOGLYCEMIA Sodium Chloride () 250 mls @ 15 mls/hr IV .[id number] PRN PRN Reason: Saline Flush Last Infusion: 09/12/19 22:34 Dose: Infused Documented by: Sodium Chloride () 250 mls @ 15 mls/hr IV .[id number] PRN PRN Reason: Additional IVPB Infusion Cefazolin Sodium () 1 gm in 50 mls @ 100 mls/hr IV Q24H [facility] Last Infusion: 09/12/19 16:26 Dose: Infused Documented by: Insulin Human Lispro (Humalog Kwikpen (Bkc)) 0 unit SC Q4 [facility]; Protocol Last Admin: 09/13/19 09:54 Dose: 2 u Documented by: Isosorbide Mononitrate (Imdur) 30 mg PO DAILY [facility] Last Admin: 09/13/19 09:53 Dose: 30 mg Documented by: Melatonin (Melatonin) 3 mg PO QHS PRN PRN PRN Reason: INSOMNIA Last Admin: 09/11/19 22:17 Dose: 3 mg Documented by: Methadone HCl () 2.5 mg PO BID [facility] Last Admin: 09/13/19 09:55 Dose: 2.5 mg Documented by: Metoprolol Tartrate (Lopressor (Beta Emmanuel)) 50 mg PO BID [facility] Last Admin: 09/13/19 09:54 Dose: 50 mg Documented by: Metronidazole (Flagyl) 500 mg PO TID [facility] Last Admin: 09/13/19 06:05 Dose: 500 mg Documented by: Multivit/Ca Carb/B Cmplx/FA/Prenat (Nephrocaps, Renaphro) 1 capsule PO DAILY [facility] Last Admin: 09/13/19 10:06 Dose: 1 capsule Documented by: Multivitamins/Minerals (Healthy Eyes (Bkc)) 1 capsule PO DAILY [facility] Last Admin: 09/13/19 09:54 Dose: 1 capsule Documented by: Nutritional Formula ([place]ortez - [place] Flavor) [facility] Last Admin: 09/13/19 12:05 Dose: 1 packet Documented by: Ondansetron HCl (Zofran) 4 mg IV Q6H PRN PRN PRN Reason: NAUSEA/VOMITING Last Admin: 09/12/19 15:55 Dose: 4 mg Documented by: Oxycodone HCl (Oxyir) 5 mg PO Q6H PRN PRN PRN Reason: Pain Score 6-10/10 Last Admin: 09/11/19 22:17 Dose: 5 mg Documented by: Pantoprazole Sodium (Protonix) 40 mg PO DAILY [facility] Last Admin: 09/13/19 10:06 Dose: 40 mg Documented by: Polyethylene Glycol (Miralax) 17 gm PO DAILY [facility] Promethazine HCl (Phenergan) 12.5 mg IM Q4H PRN PRN PRN Reason: NAUSEA/VOMITING Last Admin: 09/12/19 22:49 Dose: 12.5 mg Documented by: Senna/Docusate Sodium (Senokot-S, Amanda-Colace) 2 tablet PO BID [facility] Sertraline HCl (Zoloft) 25 mg PO DAILY [facility] Last Admin: 09/13/19 10:06 Dose: 25 mg Documented by: Sevelamer Carbonate (Renvela) 2,400 mg PO TIDCM [facility] Last Admin: 09/13/19 12:58 Dose: 2,400 mg Documented by: Sodium Chloride () 10 - 40 ml IV UD PRN PRN Reason: SALINE FLUSH Last Admin: 03/12/20 06:21 Dose: 10 ml Documented by: Trazodone HCl (Desyrel) 50 mg PO QHS [facility] Last Admin: 09/12/19 22:29 Dose: 50 mg Documented by: Medical Necessity - Tobacco Use Smoking Status: Never smoker Assessment/Plan All Active Problems (Last Reviewed 09/08/19 @ 23:[address] Eze Rivera MD) Diabetic foot ulcer (Acute) Diabetic foot infection (Acute) 1. End-stage renal disease hemodialysis TTS 2. Diabetic foot ulcer with osteo left foot s/p fifth toe amputation antibx per ID 3. Type II DM 4. hypertension with stable blood pressures 5. Anemia TERESA on dialysis 6. MOrbid obesity, SELMA on BiPAP at home.
[2019-09-13 14:50] LABS: Bedside Glucose 205 mg/dL (70-110)
[2019-09-13 14:59] VITALS: BP 144/62; PULSE 60; RESP 16; TEMP 36.9; O2SAT 100
[2019-09-13] MEDS: oxyCODONE 5 MG Tablet PO (15:11)
--- NOTE | 2019-09-13 16:23 | PCM.TXEXTCAR ---
- Diet 09/09/19 12:13 Diet: Cardiac: Calorie-Controlled Food consistency:: Regular Liquid Consistency:: Regular/Thin Dietary Modifications:: Low Phosphorous Diet Low Potassium Restriction Fluid Restricted Diet Is pt able to select menu?: Yes Diet Comments: Except meds; low sodium, phos, potassium with 1500 ml fluid restriction How many daily calories?: 2200 calorie - Routine Orders/Code Status Suppository Type: Dulcolax 10mg Suppository Frequency: Daily PRN Routine Lab Work: CBC - Every week while on antibiotic, BMP - Every week while on antibiotic Code Status: Full Code - Wound(s) LEFT FOOT Wound Type: Neuropathic/Diabetic Foot Ulcer Dressing Change: AntiMicrobial (Aquacel AG, etc) right foot Wound Type: Neuropathic/Diabetic Foot Ulcer Dressing Change: Adaptic - Therapies Weight Bearing: Non weight bearing Extremity Affected:: Bilateral Lower Physical Therapy: Eval and Treat Occupational Therapy: Eval and Treat Speech Therapy: Eval and Treat - Allergies/Procedures Done in Hospital Allergies/Adverse Reactions: Allergies venom-honey bee [bee venom (honey bee)] Allergy (Verified 09/08/19 17:56) Swelling sulfamethoxazole [From Bactrim] Adverse Reaction (Verified 09/08/19 17:56) Upset Stomach trimethoprim [From Bactrim] Adverse Reaction (Verified 09/08/19 17:56) Upset Stomach - Type of Care/Length of Stay Estimated LOS: Convalescent Care Less Than 30 days Type of Care Needed: Skilled Rehab Potential: Good Prognosis: Good - Additional Orders/Day of Discharge Day of Discharge: 09/13/19 - Dietary and Speech Recommendations Dietitian Recommendations/Changes: Will change diet to 2200 calorie, cardiac; low sodium, low potassium, low phosphorous with 1500 ml fluid restriction. Will add lan 1 packet BID for wound healing. - Follow Up Care Primary Care Physician: Augie Washburn MD [Primary Care Provider] - Please follow up with your Primary Care Physician in: In 1 to 2 weeks Please Follow Up With: Brea Bravo DPM When: on Monday09/18/19 at [facility] Please Follow Up With: Esteban Wallace MD When: IN 2-3 week
--- NOTE | 2019-09-13 16:29 | PCM.DC.SUM ---
Discharge Date and Diagnosis - Problem List Patient Problems: Active and Suspected Problems (Last Reviewed 09/08/19 @ 23:[address] Eze Rivera MD) Diabetic foot ulcer (Acute) Diabetic foot infection (Acute) Date of Admission: 09/08/19 Date of Discharge: 09/13/19 - Primary Discharge Diagnosis Active and Suspected Problems (Last Reviewed 09/08/19 @ 23:[address] Eze Rivera MD) Diabetic foot ulcer (Acute) Diabetic foot infection (Acute) - Secondary Discharge Diagnosis Chronic Problems (Last Reviewed 09/08/19 @ 23:[address] Eze Rivera MD) Noncompliance (Chronic) CHF (congestive heart failure) (Chronic) Pulmonary hypertension (Chronic) End stage renal disease on dialysis (Chronic) Peripheral vascular disease (Chronic) Toe fracture, right (Chronic) Ulcer of right foot with fat layer exposed (Chronic) Chronic ulcer of left foot with fat layer exposed (Chronic) Type 2 diabetes mellitus with diabetic polyneuropathy (Chronic) Chronic ulcer of left foot with fat layer exposed (Chronic) Chronic respiratory failure with hypoxia (Chronic) HTN (hypertension) (Chronic) Hyperlipidemia (Chronic) Diabetic neuropathy (Chronic) Anemia (Chronic) SELMA (obstructive sleep apnea) (Chronic) Hospital Course and Treatment Consultations 09/10/19 07:58 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 Diabetic foot ulcer infection of the left fifth metatarsal area and superficial ulcer of lateral right foot, chronic in nature, present on admission ?admitted to regular nursing floor started on broad-spectrum antibiotic therapy with vancomycin and Zosyn. MRSA PCR was positive. ID saw the patient and recommended 6 weeks of IV vancomycin and cefazolin with dialysis. Patient underwent wound debridement of all nonviable infected and necrotic soft tissue and bone from left foot with partial fifth ray amputation by Dr. Shipley 09/12: Wound culture reviewed. Wound left foot shows corynebacterium, actinomyces, Streptococcus group C, anaerobic cocci and E. coli. ID reviewed the patient. Patient had bleeding on the operative site therefore wound VAC was postponed. Patient agreed for rehab. Precertification pending. 2. Chronic hypoxic respiratory failure ?Patient is on baseline home O2 3. End-stage renal disease ?Patient is on hemodialysis on Tuesdays and Saturdays consult placed with Dr. Gregorio for dialysis orders. Ordered serial BMPs for monitoring 4. Obstructive sleep apnea ?Patient is on BiPAP at night plan is to continue 5. Chronic heart failure with preserved ejection fraction ?Echo obtained on 03/16/2019 demonstrated EF of 60%. Patient currently compensated 6. Essential hypertension ?Blood pressure controlled continue with home medications 7. Dyslipidemia ?Patient is on atorvastatin did continue 8. Morbid obesity with BMI of 38 ?Weight loss advised 9. Diabetes mellitus type 2 ?With complications including diabetic nephropathy (end-stage renal disease); Did continue with home insulin regimen in addition to Accu-Cheks before meals and at bedtime with sliding scale coverage 10. Anemia secondary to anemia of ESRD ?Monitoring H&H with plans to transfuse if hemoglobin falls below 7 or patient becomes symptomatic 11. GERD ?Patient on PPI 12. DVT prophylaxis ?SC heparin 13. Trouble nausea vomiting ?Suspected to be secondary to gastritis added IM Phenergan for symptomatic control Patient is being discharged to SNF. Discharge medication reconciliation done. Discharge follow-up instructions completed. Discharge process discussed with the patient and all questions were answered to patient's satisfaction. Total time spent, exact 35 minutes on discharge meds reconciliation, examination, coordination of care with nurses and ancillary staff, review of imaging and blood test and discussion with the patient on follow-up instructions Patient Problems: Active and Suspected Problems (Last Reviewed 09/08/19 @ 23:[address] Eze Rivera MD) Diabetic foot ulcer (Acute) Diabetic foot infection (Acute) Subjective: Please, see progress note of today. - Physical Exam Vitals/I&O's: Vital Signs Temp Pulse Resp BP Pulse Ox 98.4 F 60 16 144/62 H 100 09/13/19 14:59 09/13/19 14:59 09/13/19 14:59 09/13/19 14:59 09/13/19 14:59 Oxygen Flow Rate (L/min) 3.5 Oxygen Delivery Method Nasal Cannula Weight: 242 lb 11.663 oz Body Mass Index (BMI) 38.0 Finger Stick Blood Glucose 410 Intake and Output for Last 24 Hours 09/11/19 09/12/19 09/13/19 23:59 23:59 23:59 Intake Total 1555 / 1855 1220.0 / 1220.0 200.25 / 200.25 Output Total 350 / 550 200 / 200 150 / 150 Balance 1205 / 1305 1020.0 / 1020.0 50.25 / 50.25 Microbiology Past 72 Hours 09/08/19 19:45 Wound - Left Foot Gram Stain - Final 09/08/19 19:45 Wound - Left Foot Wound Culture - Final Corynebacterium striatum Corynebacterium amycolatum/xer Corynebacterium minutissimum Corynebact. pseudodiphtheritic Actinomyces odontolyticus 09/08/19 19:45 Wound - Left Foot Anaerobic Culture - Final Anaerobic cocci 09/09/19 12:44 Bone - Left Foot Gram Stain - Final 09/09/19 12:44 Bone - Left Foot Wound Culture - Final Streptococcus group C 09/09/19 12:44 Bone - Left Foot Anaerobic Culture - Final Anaerobic cocci 09/09/19 12:44 Bone - Left Foot Gram Stain - Final 09/09/19 12:44 Bone - Left Foot Wound Culture - Final Escherichia coli 09/09/19 12:44 Bone - Left Foot Anaerobic Culture - Final No anaerobic bacteria isolated. 09/08/19 20:00 Blood Culture (Wb) - Anticubital Left Blood Culture - Preliminary No growth in 48 hours. 09/08/19 19:10 Blood Culture (Wb) - Arm Left Blood Culture - Preliminary No growth in 48 hours. Laboratory Results 09/12/19 18:15: POC Glucose 165 H 09/12/19 22:27: POC Glucose 176 H 09/13/19 02:20: POC Glucose 136 H 09/13/19 06:04: POC Glucose 115 H 09/13/19 06:35: Sodium 133 L, Potassium 3.8, Chloride 97 L, Carbon Dioxide 30.0, Anion Gap 6, BUN 24 H, Creatinine 4.11 H, Estim Creat Clear Calc 19.88, Est GFR (MDRD) Af Amer 20 L, Est GFR (MDRD) Non-Af 16 L, BUN/Creatinine Ratio 5.8 L, Glucose 109 H, Calcium 8.3 L 09/13/19 07:28: WBC 7.5, RBC 3.04 L, Hgb 8.5 L, Hct 27.3 L, MCV 89.8, MCH 28.0, MCHC 31.1 L, RDW Std Deviation 49.1 H, RDW Coeff of Roberto 15.7 H, Plt Count 274, MPV 9.1 09/13/19 09:41: POC Glucose 159 H 09/13/19 14:40: POC Glucose 205 H Current Medications Acetaminophen (Tylenol) 650 mg PO Q6H PRN PRN PRN Reason: Pain Score 1-10/Temp > 100.7 F Last Admin: 09/11/19 22:17 Dose: 650 mg Documented by: Albuterol/Ipratropium (Duoneb) 3 ml INHALATION Q4H.RT PRN PRN Reason: sob/wheezing Last Admin: 09/11/19 21:51 Dose: 3 ml Documented by: Amlodipine Besylate (Norvasc) 10 mg PO DAILY COUNTS INCLUDE 234 BEDS AT THE [facility] Last Admin: 09/13/19 10:06 Dose: 10 mg Documented by: Atorvastatin Calcium (Lipitor) 20 mg PO QHS COUNTS INCLUDE 234 BEDS AT THE [facility] Last Admin: 09/12/19 22:29 Dose: 20 mg Documented by: Bisacodyl (Dulcolax) 10 mg RECTAL DAILY RENE Stop: 09/14/19 10:01 Last Admin: 09/13/19 14:38 Dose: 10 mg Documented by: Cyclobenzaprine HCl (Flexeril) 10 mg PO TID PRN PRN PRN Reason: SPASMS Epoetin Sin-epbx (Retacrit) 6,000 units IV X1 ONE Stop: 09/14/19 08:01 Fluticasone Propionate (Flonase Nasal [place]) 1 spray NASAL DAILY COUNTS INCLUDE 234 BEDS AT [facility] Last Admin: 09/13/19 09:55 Dose: 1 spray Documented by: Furosemide (Lasix) 80 mg PO BIDLX COUNTS INCLUDE 234 BEDS AT THE [facility] Last Admin: 09/13/19 09:54 Dose: 80 mg Documented by: Glucagon () 1 mg IM .X1 PRN PRN Reason: Hypoglycemia Heparin Sodium (Porcine) (Heparin Na) 5,000 unit SC Q8 COUNTS INCLUDE 234 BEDS AT THE [facility] Last Admin: 09/13/19 14:39 Dose: 5,000 unit Documented by: Hydralazine HCl (Apresoline Iv) 5 mg IV Q4H PRN PRN PRN Reason: SBP > 160 Last Admin: 09/09/19 22:24 Dose: 5 mg Documented by: Vancomycin IV Pharmacy to Dose (1 ea/ Sodium Chloride) 500 mls @ 250 mls/hr IV PRN PRN; Protocol Dextrose (Dextrose 10%-Water) 250 mls @ 999 mls/hr IV .Q16M PRN; Protocol PRN Reason: HYPOGLYCEMIA Sodium Chloride () 250 mls @ 15 mls/hr IV .[id number] PRN PRN Reason: Saline Flush Last Infusion: 09/13/19 15:06 Dose: 0 mls/hr Documented by: Sodium Chloride () 250 mls @ 15 mls/hr IV .[id number] PRN PRN Reason: Additional IVPB Infusion Cefazolin Sodium () 1 gm in 50 mls @ 100 mls/hr IV Q24H COUNTS INCLUDE 234 BEDS AT THE [facility] Last Infusion: 09/13/19 15:15 Dose: Infused Documented by: Insulin Glargine (Lantus ([facility])) 10 units SC DAILY COUNTS INCLUDE 234 BEDS AT THE [facility] Insulin Human Lispro (Humalog Kwikpen ([facility])) 0 unit SC Q4 COUNTS INCLUDE 234 BEDS AT THE [facility]; Protocol Last Admin: 09/13/19 14:41 Dose: 4 u Documented by: Isosorbide Mononitrate (Imdur) 30 mg PO DAILY COUNTS INCLUDE 234 BEDS AT [facility] Last Admin: 09/13/19 09:53 Dose: 30 mg Documented by: Melatonin (Melatonin) 3 mg PO QHS PRN PRN PRN Reason: INSOMNIA Last Admin: 09/11/19 22:17 Dose: 3 mg Documented by: Methadone HCl () 2.5 mg PO BID COUNTS INCLUDE 234 BEDS AT [facility] Last Admin: 09/13/19 09:55 Dose: 2.5 mg Documented by: Metoprolol Tartrate (Lopressor (Beta Emmanuel)) 50 mg PO BID COUNTS INCLUDE 234 BEDS AT [facility] Last Admin: 09/13/19 09:54 Dose: 50 mg Documented by: Metronidazole (Flagyl) 500 mg PO TID COUNTS INCLUDE 234 BEDS AT [facility] Last Admin: 09/13/19 14:49 Dose: 500 mg Documented by: Multivit/Ca Carb/B Cmplx/FA/Prenat (Nephrocaps, Renaphro) 1 capsule PO DAILY COUNTS INCLUDE 234 BEDS AT [facility] Last Admin: 09/13/19 10:06 Dose: 1 capsule Documented by: Multivitamins/Minerals (Healthy Eyes ([facility])) 1 capsule PO DAILY COUNTS INCLUDE 234 BEDS AT [facility] Last Admin: 09/13/19 09:54 Dose: 1 capsule Documented by: Nutritional Formula ([place] Flavor) 1 packet [facility] Last Admin: 09/13/19 12:05 Dose: 1 packet Documented by: Ondansetron HCl (Zofran) 4 mg IV Q6H PRN PRN PRN Reason: NAUSEA/VOMITING Last Admin: 09/12/19 15:55 Dose: 4 mg Documented by: Oxycodone HCl (Oxyir) 5 mg PO Q6H PRN PRN PRN Reason: Pain Score 6-10/10 Last Admin: 09/13/19 15:11 Dose: 5 mg Documented by: Pantoprazole Sodium (Protonix) 40 mg PO DAILY COUNTS INCLUDE 234 BEDS AT [facility] Last Admin: 09/13/19 10:06 Dose: 40 mg Documented by: Polyethylene Glycol (Miralax) 17 gm PO DAILY COUNTS INCLUDE 234 BEDS AT [facility] Promethazine HCl (Phenergan) 12.5 mg IM Q4H PRN PRN PRN Reason: NAUSEA/VOMITING Last Admin: 09/12/19 22:49 Dose: 12.5 mg Documented by: Senna/Docusate Sodium (Senokot-S, Amanda-Colace) 2 tablet PO BID COUNTS INCLUDE 234 BEDS AT THE [facility] Last Admin: 09/13/19 14:38 Dose: 2 tablet Documented by: Sertraline HCl (Zoloft) 25 mg PO DAILY COUNTS INCLUDE 234 BEDS AT [facility] Last Admin: 09/13/19 10:06 Dose: 25 mg Documented by: Sevelamer Carbonate (Renvela) 2,400 mg PO TIDCM COUNTS INCLUDE 234 BEDS AT THE [facility] Last Admin: 09/13/19 12:58 Dose: 2,400 mg Documented by: Sodium Chloride () 10 - 40 ml IV UD PRN PRN Reason: SALINE FLUSH Last Admin: 09/13/19 14:38 Dose: 20 ml Documented by: Trazodone HCl (Desyrel) 50 mg PO QHS COUNTS INCLUDE 234 BEDS AT [facility] Last Admin: 09/12/19 22:29 Dose: 50 mg Documented by: Weight Bearing Status: No weight bearing - No weightbearing on left foot Keep extremity elevated above heart level: Left Leg - Keep left foot elevated at all times Call your doctor if your incision/area has: Continuous Slow Oozing, Sudden Increased Bleeding, Foul Smelling Discharge Call your doctor if you observe: Fever of 101 or Higher Cleanse incision/area with: - - Wound care left foot: Cleanse w/ normal saline solution, apply aquacel Ag with overlying gauze, kerlix and lily dressing. Change daily. Wound care right foot: Cleanse with normal saline solution. Apply Aquacel Ag with overlying gauze and kerlix dressing. Change daily. Home Medications: Medications to take at Discharge Atorvastatin Calcium [Lipitor] 20 mg PO QHS 10/11/17 Vits A,C,E/Lutein/Minerals [Ocuvite with Lutein Tablet] 1 ea PO DAILY 10/11/17 Folic Acid/Vitamin B Comp W-C [Nephrocaps, Renaphro] 1 cap PO DAILY 10/27/17 albuterol sulfate 90 mcg/actuation aerosol inhaler 2 puff INHALATION Q4H PRN #18 g 02/26/18 Aspirin E.C. [Ecotrin] 81 mg PO DAILY 03/23/18 Cyclobenzaprine HCl 10 mg PO TID PRN PRN 03/23/18 Fluticasone 0.05% [Flonase Nasal [place]] 1 spray NASAL DAILY 03/23/18 isosorbide mononitrate 30 mg tablet,extended release 24 hr 30 mg PO DAILY #30 tab 07/24/18 Metoprolol Tartrate [Lopressor (beta emmanuel)] 50 mg PO BID 03/12/19 Omeprazole 40 mg PO DAILY 03/12/19 proMETHazine tablet [Phenergan tablet] 25 mg PO TID PRN 03/13/19 Sevelamer HCl [Renagel] 2,400 mg PO TID #0 03/20/19 traZODone [Desyrel] 50 mg PO QHS 07/06/19 Amlodipine [Norvasc] 10 mg PO DAILY #30 tab 07/12/19 Collagenase [Santyl] 1 applic TOPICAL DAILY tube 07/24/19 Sertraline HCl [Zoloft] 25 mg PO DAILY 08/05/19 Acetaminophen [Tylenol Tablet] 650 mg PO Q6H PRN PRN tab 08/08/19 Furosemide [Lasix] 80 mg PO BIDLX #60 tab 08/10/19 Insulin Lispro [Humalog KwikPen] See Protocol SUBCUT ACHS 08/10/19 Ipratropium/Albuterol Sulfate [Duoneb] 3 ml INHALATION Q6H #120 ampul.neb 08/14/19 Oxycodone [Oxyir] 5 mg PO Q6H PRN PRN 03/04/20 Methadone HCl 2.5 mg PO BID 09/08/19 Bisacodyl [Dulcolax] 10 mg RECTAL DAILY PRN PRN suppos. 09/13/19 Cefazolin 2 gm IV UD 36 Days #19 bag 09/13/19 Insulin Glargine [Lantus SoloStar Pen] 10 units SC DAILY pen 09/13/19 Polyethylene Glycol 3350 [Miralax] 17 gm PO DAILY packet 09/13/19 Senna/Docusate Sodium [Senokot-S] 2 tablet PO BID PRN PRN tablet 09/13/19 Vancomycin/0.9 % Sod Chloride [Vanco 500 mg/100 ml-0.9% NaCl] 500 mg IV UD 36 Days #19 [email or web address] 09/13/19 metroNIDAZOLE [Flagyl] 500 mg PO TID 36 Days #108 tab 09/13/19 Following Prescrptions Were Given to Patient: Cefazolin 2 gm IV UD 36 Days #19 bag Prescription Printed metroNIDAZOLE [Flagyl] 500 mg PO TID 36 Days #108 tab Vancomycin/0.9 % Sod Chloride [Vanco 500 mg/100 ml-0.9% NaCl] 500 mg IV UD 36 Days #19 [email or web address] Prescription Printed Primary Care Physician: Augie Washburn MD [Primary Care Provider] - Please follow up with your Primary Care Physician in: In 1 to 2 weeks Please Follow Up With: Brea Bravo DPM When: on Monday09/18/19 [facility] Please Follow Up With: Esteban Wallace MD When: IN 2-3 week Medical Necessity - Tobacco Use Smoking Status: Never smoker Meaningful Use Info Meaningful Use Diagnoses (Choose all that apply): None applicable Please cancel the billing charge of progress note today. Inpatient E&M: 22239 Disch Hosp
--- NOTE | 2019-09-13 17:43 | NURSING ---
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
[2019-09-13 17:57] VITALS: BP 150/77; PULSE 67; RESP 18; TEMP 36.4; O2SAT 98
[2019-09-13 18:06] LABS: Bedside Glucose 139 mg/dL (70-110)
--- NOTE | 2019-09-13 18:11 | PCM.PN.ID ---
Patient Problems: Active and Suspected Problems (Last Reviewed 09/08/19 @ 23:[address] Eze Rivera MD) Diabetic foot ulcer (Acute) Diabetic foot infection (Acute) Subjective: Feeling ok, no fever, no n/v/d - Physical Exam Vitals/I&O's: Vital Signs Temp Pulse Resp BP Pulse Ox 97.6 F L 67 18 150/77 H 98 09/13/19 17:57 09/13/19 17:57 09/13/19 17:57 09/13/19 17:57 09/13/19 17:57 Oxygen Flow Rate (L/min) 3.5 Oxygen Delivery Method Nasal Cannula Weight: 110.1 kg Body Mass Index (BMI) 38.0 Finger Stick Blood Glucose 410 Intake and Output for Last 24 Hours 09/11/19 09/12/19 09/13/19 23:59 23:59 23:59 Intake Total 1555 / 1855 1220.0 / 1220.0 200.25 / 200.25 Output Total 350 / 550 200 / 200 150 / 150 Balance 1205 / 1305 1020.0 / 1020.0 50.25 / 50.25 General: Alert, Cooperative, No apparent distress Lungs: Clear to auscultation, Normal air movement Cardiovascular: Regular rate, Regular Rhythm Abdomen: Soft, Non Tender, Non-Distended Skin: Ulcer/ Wound - foot wrapped Microbiology Past 72 Hours 09/08/19 19:45 Wound - Left Foot Gram Stain - Final 09/08/19 19:45 Wound - Left Foot Wound Culture - Final Corynebacterium striatum Corynebacterium amycolatum/xer Corynebacterium minutissimum Corynebact. pseudodiphtheritic Actinomyces odontolyticus 09/08/19 19:45 Wound - Left Foot Anaerobic Culture - Final Anaerobic cocci 09/09/19 12:44 Bone - Left Foot Gram Stain - Final 09/09/19 12:44 Bone - Left Foot Wound Culture - Final Streptococcus group C 09/09/19 12:44 Bone - Left Foot Anaerobic Culture - Final Anaerobic cocci 09/09/19 12:44 Bone - Left Foot Gram Stain - Final 09/09/19 12:44 Bone - Left Foot Wound Culture - Final Escherichia coli 09/09/19 12:44 Bone - Left Foot Anaerobic Culture - Final No anaerobic bacteria isolated. 09/08/19 20:00 Blood Culture (Wb) - Anticubital Left Blood Culture - Preliminary No growth in 48 hours. 09/08/19 19:10 Blood Culture (Wb) - Arm Left Blood Culture - Preliminary No growth in 48 hours. Laboratory Results 09/12/19 18:15: POC Glucose 165 H 09/12/19 22:27: POC Glucose 176 H 09/13/19 02:20: POC Glucose 136 H 09/13/19 06:04: POC Glucose 115 H 09/13/19 06:35: Sodium 133 L, Potassium 3.8, Chloride 97 L, Carbon Dioxide 30.0, Anion Gap 6, BUN 24 H, Creatinine 4.11 H, Estim Creat Clear Calc 19.88, Est GFR (MDRD) Af Amer 20 L, Est GFR (MDRD) Non-Af 16 L, BUN/Creatinine Ratio 5.8 L, Glucose 109 H, Calcium 8.3 L 09/13/19 07:28: WBC 7.5, RBC 3.04 L, Hgb 8.5 L, Hct 27.3 L, MCV 89.8, MCH 28.0, MCHC 31.1 L, RDW Std Deviation 49.1 H, RDW Coeff of Roberto 15.7 H, Plt Count 274, MPV 9.1 09/13/19 09:41: POC Glucose 159 H 09/13/19 14:40: POC Glucose 205 H 09/13/19 17:52: POC Glucose 139 H Current Medications Acetaminophen (Tylenol) 650 mg PO Q6H PRN PRN PRN Reason: Pain Score 1-10/Temp > 100.7 F Last Admin: 09/11/19 22:17 Dose: 650 mg Documented by: Albuterol/Ipratropium (Duoneb) 3 ml INHALATION Q4H.RT PRN PRN Reason: sob/wheezing Last Admin: 09/11/19 21:51 Dose: 3 ml Documented by: Amlodipine Besylate (Norvasc) 10 mg PO DAILY [facility] Last Admin: 09/13/19 10:06 Dose: 10 mg Documented by: Atorvastatin Calcium (Lipitor) 20 mg PO QHS RENE Last Admin: 09/12/19 22:29 Dose: 20 mg Documented by: Bisacodyl (Dulcolax) 10 mg RECTAL DAILY [facility] Stop: 09/14/19 10:01 Last Admin: 09/13/19 14:38 Dose: 10 mg Documented by: Cyclobenzaprine HCl (Flexeril) 10 mg PO TID PRN PRN PRN Reason: SPASMS Epoetin Sin-epbx (Retacrit) 6,000 units IV X1 ONE Stop: 09/14/19 08:01 Fluticasone Propionate (Flonase Nasal [place]) 1 spray NASAL DAILY [facility] Last Admin: 09/13/19 09:55 Dose: 1 spray Documented by: Furosemide (Lasix) 80 mg PO BIDLX [facility] Last Admin: 09/13/19 17:54 Dose: 80 mg Documented by: Glucagon () 1 mg IM .X1 PRN PRN Reason: Hypoglycemia Heparin Sodium (Porcine) (Heparin Na) 5,000 unit SC Q8 [facility] Last Admin: 09/13/19 14:39 Dose: 5,000 unit Documented by: Hydralazine HCl (Apresoline Iv) 5 mg IV Q4H PRN PRN PRN Reason: SBP > 160 Last Admin: 09/09/19 22:24 Dose: 5 mg Documented by: Vancomycin IV Pharmacy to Dose (1 ea/ Sodium Chloride) 500 mls @ 250 mls/hr IV PRN PRN; Protocol Dextrose (Dextrose 10%-Water) 250 mls @ 999 mls/hr IV .Q16M PRN; Protocol PRN Reason: HYPOGLYCEMIA Sodium Chloride () 250 mls @ 15 mls/hr IV .[id number] PRN PRN Reason: Saline Flush Last Infusion: 09/13/19 16:46 Dose: Infused Documented by: Sodium Chloride () 250 mls @ 15 mls/hr IV .[id number] PRN PRN Reason: Additional IVPB Infusion Cefazolin Sodium () 1 gm in 50 mls @ 100 mls/hr IV Q24H [facility] Last Infusion: 09/13/19 15:15 Dose: Infused Documented by: Insulin Glargine (Lantus ([facility])) 10 units SC DAILY [facility] Insulin Human Lispro (Humalog Kwikpen ([facility])) 0 unit SC Q4 [facility]; Protocol Last Admin: 09/13/19 17:54 Dose: Not Given Documented by: Isosorbide Mononitrate (Imdur) 30 mg PO DAILY [facility] Last Admin: 09/13/19 09:53 Dose: 30 mg Documented by: Melatonin (Melatonin) 3 mg PO QHS PRN PRN PRN Reason: INSOMNIA Last Admin: 09/11/19 22:17 Dose: 3 mg Documented by: Methadone HCl () 2.5 mg PO BID [facility] Last Admin: 09/13/19 09:55 Dose: 2.5 mg Documented by: Metoprolol Tartrate (Lopressor (Beta Emmanuel)) 50 mg PO BID [facility] Last Admin: 09/13/19 09:54 Dose: 50 mg Documented by: Metronidazole (Flagyl) 500 mg PO TID [facility] Last Admin: 09/13/19 14:49 Dose: 500 mg Documented by: Multivit/Ca Carb/B Cmplx/FA/Prenat (Nephrocaps, Renaphro) 1 capsule PO DAILY [facility] Last Admin: 09/13/19 10:06 Dose: 1 capsule Documented by: Multivitamins/Minerals (Healthy Eyes ([facility])) 1 capsule PO DAILY [facility] Last Admin: 09/13/19 09:54 Dose: 1 capsule Documented by: Nutritional Formula ([place] Flavor) [facility] Last Admin: 09/13/19 17:54 Dose: 1 packet Documented by: Ondansetron HCl (Zofran) 4 mg IV Q6H PRN PRN PRN Reason: NAUSEA/VOMITING Last Admin: 09/12/19 15:55 Dose: 4 mg Documented by: Oxycodone HCl (Oxyir) 5 mg PO Q6H PRN PRN PRN Reason: Pain Score 6-10/10 Last Admin: 09/13/19 15:11 Dose: 5 mg Documented by: Pantoprazole Sodium (Protonix) 40 mg PO DAILY [facility] Last Admin: 09/13/19 10:06 Dose: 40 mg Documented by: Polyethylene Glycol (Miralax) 17 gm PO DAILY [facility] Promethazine HCl (Phenergan) 12.5 mg IM Q4H PRN PRN PRN Reason: NAUSEA/VOMITING Last Admin: 09/12/19 22:49 Dose: 12.5 mg Documented by: Senna/Docusate Sodium (Senokot-S, Amanda-Colace) 2 tablet PO BID [facility] Last Admin: 09/13/19 14:38 Dose: 2 tablet Documented by: Sertraline HCl (Zoloft) 25 mg PO DAILY [facility] Last Admin: 09/13/19 10:06 Dose: 25 mg Documented by: Sevelamer Carbonate (Renvela) 2,400 mg PO TIDCM [facility] Last Admin: 09/13/19 17:54 Dose: 2,400 mg Documented by: Sodium Chloride () 10 - 40 ml IV UD PRN PRN Reason: SALINE FLUSH Last Admin: 09/13/19 14:38 Dose: 20 ml Documented by: Trazodone HCl (Desyrel) 50 mg PO QHS [facility] Last Admin: 09/12/19 22:29 Dose: 50 mg Documented by: Medical Necessity - Tobacco Use Smoking Status: Never smoker Route of nutrition/ use of supplements: [] Nutritional Intake: [] IV Site: [] Kuo Catheter: [] - Assessment/Plan Antibiotics: [] Assessment/Plan: [] Active and Suspected Problems (Last Reviewed 09/08/19 @ 23:[address] Eze Rivera MD) Diabetic foot ulcer (Acute) Diabetic foot infection (Acute) L foot DM osteo - s/p OR 09/[address] Shipley. Wound cx with corynebacteria, rare actino. Wound pcr with mRSA. Surg cx with group C strep, anaerobes, and ecoli, had been on keflex for a few days prior to admit. Cont vanc and cefazolin which can be dosed with HD after discharge, and po flagyl. Plan on 6 week course of abx, stop date 10/18/19. ID followup in 4 weeks. Will follow, d/w caseworker protective services, rx written.
--- NOTE | 2019-09-13 18:57 | NURSING ---
Per Cami the nurse at [facility] stated she needed the dr write scripts for Methadone and oxyir. 1815 Dr Marie was notified of the need to write RXs for pt prior to discharge. He called this nurse and said he does need do that, he can get a script there. 1834 This nurse notified another nurse at [facility], (do not recall name) that Dr Marie will not write the scripts. If she has further questions about this she was informed to have Dr. Marie paged through the fuel distribution system operator, and discuss it with him.
== END 2019-09-13 20:10 | DRG 617 ==
LOC: ED 18:36 → MS3 21:26
PROVIDERS: Internal Medicine; Internal Medicine Nephrology; Podiatrist; Admitting Provider Hospitalist; Emergency Provider Emergency Medicine; PCP Internal Medicine; Visit Provider Internal Medicine
PROC: 0Y6N0ZF Detachment at Left Foot, Partial 5th Ray, Open Approach (ICD-10-PCS; principal; 2019-09-09 11:15)
DX: E11.69 Type 2 diabetes mellitus with other specified complication (principal); I50.32 Chronic diastolic (congestive) heart failure; I13.2 Hypertensive heart and chronic kidney disease with heart failure and with stage 5 chronic kidney disease, or end stage renal disease; M86.8X7 Other osteomyelitis, ankle and foot; J96.11 Chronic respiratory failure with hypoxia; E87.1 Hypo-osmolality and hyponatremia; E11.621 Type 2 diabetes mellitus with foot ulcer; B96.20 Unspecified Escherichia coli [E. coli] as the cause of diseases classified elsewhere; B96.89 Other specified bacterial agents as the cause of diseases classified elsewhere; B95.4 Other streptococcus as the cause of diseases classified elsewhere; L97.524 Non-pressure chronic ulcer of other part of left foot with necrosis of bone; L97.511 Non-pressure chronic ulcer of other part of right foot limited to breakdown of skin; N18.6 End stage renal disease; Z99.2 Dependence on renal dialysis; E11.22 Type 2 diabetes mellitus with diabetic chronic kidney disease; E11.42 Type 2 diabetes mellitus with diabetic polyneuropathy; G47.33 Obstructive sleep apnea (adult) (pediatric); G89.29 Other chronic pain; E78.5 Hyperlipidemia, unspecified; R11.2 Nausea with vomiting, unspecified; D63.1 Anemia in chronic kidney disease; I27.20 Pulmonary hypertension, unspecified; E66.01 Morbid (severe) obesity due to excess calories; Z79.4 Long term (current) use of insulin; Z99.81 Dependence on supplemental oxygen; Z68.38 Body mass index [BMI] 38.0-38.9, adult; K21.9 Gastro-esophageal reflux disease without esophagitis
CPT/HCPCS: 36415; 73630; 73718; 80048; 80053; 80069; 80202; 82962; 83605; 83735; 85025; 85027; 85610; 85652; 85730; 86140; 87015; 87040; 87070; 87075; 87077; 87102; 87116; 87186; 87205; 87206; 87640; 88304; 88305; 88311; 90937; 94002; 94640; 97110; 97162; 97167; 97802; 97803; 99285; J7030; J7040; J7050; A4216; G0257; J2405; Q5106

== ENCOUNTER 2019-10-30 15:45 | Outpatient (RCR) | payer MEDICARE, MEDICAID, SELFPAY ==
[2019-09-09 11:21] VITALS: BMI 38.0
[2019-10-02 00:29] VITALS: BP 112/32; PULSE 70; RESP 16; TEMP 37.6
[2019-10-02 13:56] VITALS: BP 151/70; PULSE 68; RESP 16; TEMP 36.4; BMI 38.0
--- NOTE | 2019-10-02 23:11 | PCM.WC.PN ---
(1) Chronic ulcer of left foot with fat layer exposed Status: Chronic Code(s): L97.522 - Non-pressure chronic ulcer of other part of left foot with fat layer exposed (2) Ulcer of right foot with fat layer exposed Status: Resolved Code(s): L97.512 - Non-pressure chronic ulcer of other part of right foot with fat layer exposed (3) Malnutrition Status: Inactive Code(s): E46 - Unspecified protein-calorie malnutrition (4) End stage renal disease on dialysis Status: Chronic Code(s): N18.6 - End stage renal disease; Z99.2 - Dependence on renal dialysis (5) Peripheral vascular disease Status: Chronic Code(s): I73.9 - Peripheral vascular disease, unspecified (6) Type 2 diabetes mellitus with diabetic polyneuropathy Status: Chronic Qualifiers: Code(s): E11.42 - Type 2 diabetes mellitus with diabetic polyneuropathy Type of Wound Date of Service: 10/02/19 Chief Complaint: Right foot ulcer. Left foot ulcer History of Wound: This 49-year-old male with diabetes, peripheral vascular disease (calcified vessels), chronic kidney disease, sleep apnea, obesity and other comorbidities had chronic bilateral foot ulcers with prior history of osteomyelitis that was treated medically and surgically. He recently underwent left fifth ray resection was left partially open with Dr. Shipley, and he was subsequently treated with IV and oral antibiotics under the management of infectious disease and continues on a course of vancomycin and cefazolin intravenously on hemodialysis days and oral Flagyl as well. The stop date of antibiotics is 10-18-2019. He denies fever, chill, nausea, vomiting. It is also noted he had prior vascular intervention with Dr. Tuttle earlier this year. He thinks the right foot is healed and denies drainage. He has continued drainage and scab formation to the left foot. He reports he has lost track of time and thinks he has not been to clinic in only two weeks when it has been about a month and a half. He has been in and out of the hospital for pulmonary issues. He is with his today. He has trouble offloading his foot and changing his dressings. He wears sandals and has not been compliant with surgical offloading shoes. He is at [facility] and is very eager to return home. He asked if he can be discharged at this time. Progress of Wound: Healed right. left worse - Physical Exam Vital Signs Temp Pulse Resp BP 97.5 F L 68 16 151/70 H 10/02/19 13:56 10/02/19 13:56 10/02/19 13:56 10/02/19 13:56 General: Alert, Oriented x3, Cooperative, No apparent distress Extremities: No cyanosis, Capillary Refill Less than 3 Seconds, No Calf Tenderness, Diminished Peripheral Pulses, Edema Skin: Ulcer/ Wound - No purulence, erythema, streaking, odor, infection. The adjacent skin is hairless and atrophic. There is full epithelialization noted to the right foot. The left open amputation site has a remaining ulcer that has a granular base with minimal fibrous tissue. There is no exposed bone or other deep tissue, necrosis, or maceration. Wound Measurements and Assessment - Nurse 1 - General Ulcer Measurement Start: 10/02/19 13:43 Freq: Status: Active Protocol: Activity Type Activity Date Activity User E-Sign Co-Sign Detail Recorded Client Recorded Date Recorded By Document 10/02/19 13:56 DV [id number] 10/02/19 14:03 DV 10/02/19 13:56 Wound Center Nurse 1 [Ulcer Assessment] #7 LEFT LATERAL FOOT -Combined with other wound No -Current Size (cm) - Length 3.0 -Current Size (cm) - Width 3.5 -Current Size (cm) - Depth 0.3 -Total Square Cm 10.50 -Date of Last Picture (Recall this 10/02/19 field) -Photo Taken Yes -Epithelialization Small 1-33% -Tunneling No -Undermining/Tunneling No -Circular Undermining No -Exudate Amt Medium -Exudate Type Serosanguineous -Wound Margin Flat & Intact -Granulation Amt None Present (0 %) -Granulation Quality N/A -Slough/Fibrin Yes -Necrosis Amt Large (67-100%) -Necrotic Tissue Type Eschar -Structure Exposed None/Limited to Skin Breakdown -Texture (Amanda-wound Skin Appearance) Assessed, Scarring -Moisture (Amanda-wound Skin Appearance Assessed, ) Weeping -Color (Amanda-wound Skin Appearance) Assessed, Erythema -Temperature (Amanda-wound Skin No Abnormality Appearance) (Pt Warm) -Tenderness on Palpation (Amanda-wound No Skin Appearance) -Foul Odor after Cleansing No -Anesthetic Used 4% Lidocaine Solution - Nurse 2 - General Ulcer CM Notes Start: 10/02/19 13:43 Freq: Status: Active Protocol: Activity Type Activity Date Activity User E-Sign Co-Sign Detail Recorded Client Recorded Date Recorded By Document 10/02/19 14:20 MICHAEL [id number] 10/02/19 14:25 MICHAEL 10/02/19 14:20 Wound Center Nurse 2 [Procedure/Treatment] -Time 14:20 -Correct Patient Yes -Correct Side, Site, Position Yes -Correct Procedure Yes -Procedure Performed Yes -Type of Procedure Debridement -Clinical Debridement Subcutaneous -Post Debridement Size (cm) - Length 3.1 -Post Debridement Size (cm) - Width 3.6 -Post Debridement Size (cm) - Depth 0.3 -Total Square Cm 11.16 -Wound/Ulcer Outcome Not Healed -Ulcer Cleansing Rinsed/ Irrigated with Saline -Foul Odor after Cleansing No -Bioengineered Tissue No -Bleeding Controlled with Pressure -Offloading Yes -Type of Offloading Surgical Shoe -Treatment Response Procedure Tolerated Well #5- R LATERAL FOOT -Correct Patient No -Correct Side, Site, Position No -Correct Procedure No -Procedure Performed No -Post Debridement Size (cm) - Length 0 -Post Debridement Size (cm) - Width 0 -Post Debridement Size (cm) - Depth 0 -Total Square Cm 0 -Wound/Ulcer Outcome Healed- Epithelialized #4- R LAT PLANTAR -Correct Patient No -Correct Side, Site, Position No -Correct Procedure No -Procedure Performed No -Post Debridement Size (cm) - Length 0 -Post Debridement Size (cm) - Width 0 -Post Debridement Size (cm) - Depth 0 -Total Square Cm 0 -Wound/Ulcer Outcome Healed- Epithelialized #3- L PLANTAR -Correct Patient No -Correct Side, Site, Position No -Correct Procedure No -Procedure Performed No -Wound/Ulcer Outcome Converted [See Physician Procedure note for Specifics] Pain Scale: 0-10 Numeric [Pain] -Is Patient Pain Free? Yes Musculoskeletal: No Tenderness to Palpation of Joints or Extremities, Muscle Wasting, - - Fifth ray resection bilateral Neurological: - - Lack of epicritic sensation light touch is consistent with neuropathy status Psych/Mental Status: Normal Affect, Appropriate Debridement Note Post-Debridement Measurements/Treatment NANCIE - Nurse 2 - General Ulcer CM Notes Start: 10/02/19 13:43 Freq: Status: Active Protocol: Activity Type Activity Date Activity User E-Sign Co-Sign Detail Recorded Client Recorded Date Recorded By Document 10/02/19 14:20 MICHAEL [id number] 10/02/19 14:25 MICHAEL 10/02/19 14:20 Wound Center Nurse 2 #7 LEFT LATERAL FOOT -Time 14:20 -Correct Patient Yes -Correct Side, Site, Position Yes -Correct Procedure Yes -Procedure Performed Yes -Type of Procedure Debridement -Clinical Debridement Subcutaneous -Post Debridement Size (cm) - Length 3.1 -Post Debridement Size (cm) - Width 3.6 -Post Debridement Size (cm) - Depth 0.3 -Total Square Cm 11.16 -Wound/Ulcer Outcome Not Healed -Ulcer Cleansing Rinsed/ Irrigated with Saline -Foul Odor after Cleansing No -Bioengineered Tissue No -Bleeding Controlled with Pressure -Offloading Yes -Type of Offloading Surgical Shoe -Treatment Response Procedure Tolerated Well #5- R LATERAL FOOT -Correct Patient No -Correct Side, Site, Position No -Correct Procedure No -Procedure Performed No -Post Debridement Size (cm) - Length 0 -Post Debridement Size (cm) - Width 0 -Post Debridement Size (cm) - Depth 0 -Total Square Cm 0 -Wound/Ulcer Outcome Healed- Epithelialized #4- R LAT PLANTAR -Correct Patient No -Correct Side, Site, Position No -Correct Procedure No -Procedure Performed No -Post Debridement Size (cm) - Length 0 -Post Debridement Size (cm) - Width 0 -Post Debridement Size (cm) - Depth 0 -Total Square Cm 0 -Wound/Ulcer Outcome Healed- Epithelialized #3- L PLANTAR -Correct Patient No -Correct Side, Site, Position No -Correct Procedure No -Procedure Performed No -Wound/Ulcer Outcome Converted Pain Scale: 0-10 Numeric Is Patient Pain Free? Yes Wound debrided: lateral forefoot Laterality: Left Wound Grade/Stage: grade 1 Type of Debridement: Excisional debridement Anesthesia Used: 5% Lidocaine Gel Depth: in the subcutaneous layer Percentage of wound debrided: 100 Instrument Used: #15 blade Tissue Removed: fibrous, devitalized subcutaneous, biofilm, slough Severity: Fat Layer Exposed Amount of bleeding with debridement: Mild Bleeding Controlled with: Pressure Patient tolerated procedure well Assessment/Plan Assessment: Diabetes with neuropathy (hemoglobin A1c 12%). Status post right fifth ray resection for treatment of osteomyelitis and chronic ulcer, healed today status post left fifth ray resection for treatment of osteomyelitis and now chronic ulcer, stable. Foot deformities including hammertoes, tailor bunion, and hallux limitus bilateral. Peripheral vascular disease now status post vascular surgery intervention. Other comorbidities including noncompliance, renal disease on dialysis, cardiac history. Malnutrition suspected. Gait instability Plan: I reviewed and discussed his case. Subcutaneous excisional debridement was performed to the left foot as noted in the clinical panel. He was reassured his right foot ulcer has healed. There is no dressing requirements for the right foot. To wash left foot with soap and water with daily dressing changes. I also recommended using the wound VAC with continuous 150 mmHg. A saline wet-to-dry dressing was applied and the wound VAC will be applied when he returns to [facility]. He has not demonstrated the ability to care for this condition properly on his own. To continue with offloading surgical shoes and heel weight-bear on the left foot and to return extra-depth shoe on the right foot. To use assistive device as needed. Compliance was discussed. His balance loss and unsteadiness is noted with surgical shoe use and I recommend useing the assistive device. To note: His prior clearance fragment was sent to pathology did not demonstrate residual osteomyelitis. His pathology clearance fragment was negative from surgery that was performed on 09-09-2019 the left foot. His microbiology clearance fragment demonstrated E. coli growth in the minimal amount. He is advised to continue with IV vancomycin and ceftezole and with dialysis and also oral Flagyl as prescribed by infectious disease specialist. The end date is 10-18-2019. From a foot standpoint, he is stable and can be discharged home. I recommend home health assistance if this is pursued. I discussed with him that his discharge home was up to the house physician at [facility] and they will take other medical conditions into consideration. . Vascular surgery intervention is noted in greatly appreciated. He had an abdominal pelvic right lower extremity arteriogram with angioplasty of the right proximal anterior tibial artery and right tibial peroneal trunk that was successful. To follow-up with Dr. Tuttle as scheduled. To continue with nutritional supplementation proper glycemic control to optimize healing. Compliance was discussed. It is noted that he is at risk for limb loss due to his condition including his multiple comorbidities. His lab trends will be followed. Pending improvement, we will consider alternative dressing care, surgical debriment, cultures or additional imaging at his follow up. I answered all his questions. The patient was advised to return to the wound healing center in 1 week or call sooner if he is any questions or concerns.
[2019-10-23 15:56] VITALS: BMI 38.0
--- NOTE | 2019-10-23 16:22 | PCM.WC.PN ---
(1) Chronic ulcer of left foot with fat layer exposed Status: Chronic Current Visit: Yes Code(s): L97.522 - Non-pressure chronic ulcer of other part of left foot with fat layer exposed (2) Malnutrition Status: Inactive Current Visit: Yes Code(s): E46 - Unspecified protein-calorie malnutrition (3) End stage renal disease on dialysis Status: Chronic Current Visit: Yes Code(s): N18.6 - End stage renal disease; Z99.2 - Dependence on renal dialysis (4) Peripheral vascular disease Status: Chronic Current Visit: Yes Code(s): I73.9 - Peripheral vascular disease, unspecified (5) Type 2 diabetes mellitus with diabetic polyneuropathy Status: Chronic Current Visit: Yes Qualifiers: Code(s): E11.42 - Type 2 diabetes mellitus with diabetic polyneuropathy Type of Wound Date of Service: 10/23/19 Chief Complaint: Left foot ulcer History of Wound: This 49-year-old male with diabetes, peripheral vascular disease (calcified vessels), chronic kidney disease, sleep apnea, obesity and other comorbidities had chronic bilateral foot ulcers with prior history of osteomyelitis that was treated medically and surgically. He recently underwent left fifth ray resection was left partially open with Dr. Shipley, and he was subsequently treated with IV and oral antibiotics under the management of infectious disease and completed a course of vancomycin and cefazolin intravenously on hemodialysis days and oral Flagyl as well. The stop date of antibiotics was 10-18-2019. He denies fever, chill, nausea, vomiting. It is also noted he had prior vascular intervention with Dr. Tuttle earlier this year. He offloads with surgical shoe. He continues with the wound VAC and home health. He is with his today. He was discharged from [facility] 14 days ago. Progress of Wound: Improving left - Physical Exam Vital Signs Temp Pulse Resp BP 97.5 F L 68 16 151/70 H 10/02/19 13:56 10/02/19 13:56 10/02/19 13:56 10/02/19 13:56 General: Alert, Oriented x3, Cooperative, No apparent distress HEENT: Atraumatic Extremities: No cyanosis, Capillary Refill Less than 3 Seconds, No Calf Tenderness, Diminished Peripheral Pulses, Edema Skin: Ulcer/ Wound - No purulence, erythema, streaking, odor, infection. Beefy red granulation tissue is noted. Suture removal, there is no gapping. No interdigital maceration or necrosis is noted. No new skin discontinuity is. Wound Measurements and Assessment - Nurse 1 - General Ulcer Measurement Start: 10/02/19 13:43 Freq: Status: Active Protocol: Activity Type Activity Date Activity User E-Sign Co-Sign Detail Recorded Client Recorded Date Recorded By Document 10/23/19 15:56 DENNIS [id number] 10/23/19 16:02 DENNIS 10/23/19 15:56 Wound Center Nurse 1 [Ulcer Assessment] #7 LEFT LATERAL FOOT -Combined with other wound No -Current Size (cm) - Length 3.0 -Current Size (cm) - Width 2.5 -Current Size (cm) - Depth 0.5 -Total Square Cm 7.50 -Photo Taken No -Epithelialization None Present -Tunneling No -Undermining/Tunneling No -Exudate Amt Small -Exudate Type Serosanguineous -Granulation Amt Large (67-100%) -Granulation Quality [place],Red -Slough/Fibrin Yes -Necrosis Amt Small (1-33%) -Necrotic Tissue Type Adherent Slough -Ulcer Cleansing Rinsed/ Irrigated with Saline -Foul Odor after Cleansing No -Anesthetic Used 4% Lidocaine Solution - Nurse 2 - General Ulcer CM Notes Start: 10/02/19 13:43 Freq: Status: Active Protocol: Activity Type Activity Date Activity User E-Sign Co-Sign Detail Recorded Client Recorded Date Recorded By Document 10/23/19 16:12 MICHAEL [id number] 10/23/19 16:13 MICHAEL 10/23/19 16:12 Wound Center Nurse 2 [Procedure/Treatment] -Time 16:12 -Correct Patient Yes -Correct Side, Site, Position Yes -Correct Procedure Yes -Procedure Performed Yes -Type of Procedure Debridement -Clinical Debridement Subcutaneous -Post Debridement Size (cm) - Length 3.1 -Post Debridement Size (cm) - Width 2.6 -Post Debridement Size (cm) - Depth 0.5 -Total Square Cm 8.06 -Wound/Ulcer Outcome Not Healed -Ulcer Cleansing Rinsed/ Irrigated with Saline -Foul Odor after Cleansing No -Bioengineered Tissue No -Bleeding Controlled with Pressure -Offloading Yes -Type of Offloading Surgical Shoe -Treatment Response Procedure Tolerated Well [See Physician Procedure note for Specifics] Pain Scale: 0-10 Numeric [Pain] -Is Patient Pain Free? Yes Musculoskeletal: No Tenderness to Palpation of Joints or Extremities, Muscle Wasting, - - Fifth ray resection left Neurological: - - lack of epicritic sensation via light touch consistent with neuropathy Psych/Mental Status: Normal Affect, Appropriate Debridement Note Post-Debridement Measurements/Treatment WC - Nurse 2 - General Ulcer CM Notes Start: 10/02/19 13:43 Freq: Status: Active Protocol: Activity Type Activity Date Activity User E-Sign Co-Sign Detail Recorded Client Recorded Date Recorded By Document 10/02/19 14:20 [id number] 10/02/19 14:25 Document 10/23/19 16:12 [id number] 10/23/19 16:13 10/02/19 10/23/19 14:20 16:12 Wound Center Nurse 2 #7 LEFT LATERAL FOOT -Time 14:20 16:12 -Correct Patient Yes Yes -Correct Side, Site, Position Yes Yes -Correct Procedure Yes Yes -Procedure Performed Yes Yes -Type of Procedure Debridement Debridement -Clinical Debridement Subcutaneous Subcutaneous -Post Debridement Size (cm) - Length 3.1 3.1 -Post Debridement Size (cm) - Width 3.6 2.6 -Post Debridement Size (cm) - Depth 0.3 0.5 -Total Square Cm 11.16 8.06 -Wound/Ulcer Outcome Not Healed Not Healed -Ulcer Cleansing Rinsed/ Rinsed/ Irrigated with Irrigated with Saline Saline -Foul Odor after Cleansing No No -Bioengineered Tissue No No -Bleeding Controlled with Pressure Pressure -Offloading Yes Yes -Type of Offloading Surgical Shoe Surgical Shoe -Treatment Response Procedure Procedure Tolerated Well Tolerated Well #5- R LATERAL FOOT -Correct Patient No -Correct Side, Site, Position No -Correct Procedure No -Procedure Performed No -Post Debridement Size (cm) - Length 0 -Post Debridement Size (cm) - Width 0 -Post Debridement Size (cm) - Depth 0 -Total Square Cm 0 -Wound/Ulcer Outcome Healed- Epithelialized #4- R LAT PLANTAR -Correct Patient No -Correct Side, Site, Position No -Correct Procedure No -Procedure Performed No -Post Debridement Size (cm) - Length 0 -Post Debridement Size (cm) - Width 0 -Post Debridement Size (cm) - Depth 0 -Total Square Cm 0 -Wound/Ulcer Outcome Healed- Epithelialized #3- L PLANTAR -Correct Patient No -Correct Side, Site, Position No -Correct Procedure No -Procedure Performed No -Wound/Ulcer Outcome Converted Pain Scale: 0-10 Numeric Is Patient Pain Free? Yes Yes Wound debrided: lateral foot Laterality: Left Wound Grade/Stage: grade 1 Type of Debridement: Excisional debridement Anesthesia Used: 5% Lidocaine Gel Depth: in the subcutaneous layer Percentage of wound debrided: 100 Instrument Used: #15 blade Tissue Removed: fibrous, devitalized subcutaneous, biofilm, slough Severity: Fat Layer Exposed Amount of bleeding with debridement: Mild Bleeding Controlled with: Pressure Patient tolerated procedure well Assessment/Plan Active Problems (Last Reviewed 10/07/19 @ 13:16 by LATASHA Osullivan) End stage renal disease on dialysis (Chronic) Peripheral vascular disease (Chronic) Type 2 diabetes mellitus with diabetic polyneuropathy (Chronic) Chronic ulcer of left foot with fat layer exposed (Chronic) Assessment: Diabetes with neuropathy (hemoglobin A1c 12%). status post left fifth ray resection for treatment of osteomyelitis and now chronic ulcer, stable. Foot deformities including hammertoes, tailor bunion, and hallux limitus bilateral. Peripheral vascular disease now status post vascular surgery intervention. Other comorbidities including noncompliance, renal disease on dialysis, cardiac history. Malnutrition suspected. Gait instability Plan: I reviewed and discussed his case. Subcutaneous excisional debridement was performed to the left foot as noted in the clinical panel. Suture removal was performed today. To wash left foot with soap and water with VAC change sessions. I also recommended continued use of the wound VAC with continuous 150 mmHg. He is progressing well and I recommend utilization of an advanced wound healing product, epi-fix. Prior authorization will be initiated. The indication, benefits, anticipated application course and healing management were discussed. He understands elects to proceed forward. This is medically necessary to avoid further limb loss. I also recommend the application of a brigid wound VAC. He would benefit from utilizing a device with the same benefits as a traditional wound VAC but that is less cumbersome. It is noted that he did trip over his long wound VAC cord today and scraped his face. He denies any loss of consciousness or evidence of head injury. He was advised to use assistive devices to better balance himself during times of showering or ambulation. To continue with offloading surgical shoes and heel weight-bear on the left foot and to return extra-depth shoe on the right foot. To use assistive device as needed. Compliance was discussed. To note: His prior clearance fragment was sent to pathology did not demonstrate residual osteomyelitis. His pathology clearance fragment was negative from surgery that was performed on 09-09-2019 the left foot. His microbiology clearance fragment demonstrated E. coli growth in the minimal amount. It is noted that he completed IV vancomycin and ceftezole and with dialysis and also oral Flagyl as prescribed by infectious disease specialist. The end date was 10-18-2019. Vascular surgery intervention is noted in greatly appreciated. He had an abdominal pelvic right lower extremity arteriogram with angioplasty of the right proximal anterior tibial artery and right tibial peroneal trunk that was successful. To follow-up with Dr. Tuttle as scheduled. To continue with nutritional supplementation proper glycemic control to optimize healing. Compliance was discussed. It is noted that he is at risk for limb loss due to his condition including his multiple comorbidities. His lab trends will be followed. I answered all his questions. The patient was advised to return to the wound healing center in 1 week or call sooner if he is any questions or concerns.
[2019-10-30 16:09] VITALS: BP 167/64; PULSE 77; RESP 18; TEMP 36.6; O2SAT 97; BMI 38.0
--- NOTE | 2019-10-30 22:51 | PCM.WC.PN ---
(1) Chronic ulcer of left foot with fat layer exposed Status: Chronic Code(s): L97.522 - Non-pressure chronic ulcer of other part of left foot with fat layer exposed (2) Malnutrition Status: Inactive Code(s): E46 - Unspecified protein-calorie malnutrition (3) End stage renal disease on dialysis Status: Chronic Code(s): N18.6 - End stage renal disease; Z99.2 - Dependence on renal dialysis (4) Peripheral vascular disease Status: Chronic Code(s): I73.9 - Peripheral vascular disease, unspecified (5) Type 2 diabetes mellitus with diabetic polyneuropathy Status: Chronic Qualifiers: Code(s): E11.42 - Type 2 diabetes mellitus with diabetic polyneuropathy Type of Wound Date of Service: 10/30/19 Chief Complaint: Left foot ulcer History of Wound: This 49-year-old male with diabetes, peripheral vascular disease (calcified vessels), chronic kidney disease, sleep apnea, obesity and other comorbidities had chronic bilateral foot ulcers with prior history of osteomyelitis that was treated medically and surgically. He recently underwent left fifth ray resection was left partially open with Dr. Shipley, and he was subsequently treated with IV and oral antibiotics under the management of infectious disease and completed a course of vancomycin and cefazolin intravenously on hemodialysis days and oral Flagyl as well. The stop date of antibiotics was 10-18-2019. He denies fever, chill, nausea, vomiting. It is also noted he had prior vascular intervention with Dr. Tuttle earlier this year. He offloads with surgical shoe. He continues with the wound VAC and home health. He is with his today. He is amendable to proceed with brigid wound VAC and advanced wound healing product, epi-fix, today to optimize healing. Progress of Wound: Improving left - Physical Exam Vital Signs Temp Pulse Resp BP Pulse Ox 98 F 77 18 167/64 H 97 10/30/19 16:09 10/30/19 16:09 10/30/19 16:09 10/30/19 16:09 10/30/19 16:09 General: Alert, Oriented x3, Cooperative, No apparent distress Extremities: No cyanosis, Capillary Refill Less than 3 Seconds, No Calf Tenderness, Diminished Peripheral Pulses, Edema Skin: Ulcer/ Wound - No purulence, erythema, streaking, odor, infection. The adjacent skin is hairless and atrophic. The wound bed is healthy granular. There is no exposed deeper tissue or necrosis or maceration Wound Measurements and Assessment WC - Nurse 1 - General Ulcer Measurement Start: 10/02/19 13:43 Freq: Status: Active Protocol: Activity Type Activity Date Activity User E-Sign Co-Sign Detail Recorded Client Recorded Date Recorded By Document 10/30/19 16:[address] [id number] 10/30/19 16:14 CP 10/30/19 16:09 Wound Center Nurse 1 [Ulcer Assessment] #7 LEFT LATERAL FOOT -Combined with other wound No -Current Size (cm) - Length 2.4 -Current Size (cm) - Width 3.1 -Current Size (cm) - Depth 0.5 -Total Square Cm 7.44 -Tunneling No -Undermining/Tunneling No -Circular Undermining No -Exudate Amt Medium -Exudate Type Serosanguineous -Wound Margin Flat & Intact -Granulation Amt Medium (34-66%) -Granulation Quality [place],Red -Slough/Fibrin Yes -Necrosis Amt Small (1-33%) -Necrotic Tissue Type Adherent Slough -Structure Exposed N/A -Texture (Amanda-wound Skin Appearance) Assessed -Moisture (Amanda-wound Skin Appearance Assessed, ) Maceration -Color (Amanda-wound Skin Appearance) Assessed -Temperature (Amanda-wound Skin No Abnormality Appearance) (Pt Warm) -Tenderness on Palpation (Amanda-wound No Skin Appearance) -Ulcer Cleansing Wound Cleanser -Foul Odor after Cleansing No -Anesthetic Used 4% Lidocaine Solution - Nurse 2 - General Ulcer CM Notes Start: 10/02/19 13:43 Freq: Status: Active Protocol: Activity Type Activity Date Activity User E-Sign Co-Sign Detail Recorded Client Recorded Date Recorded By Document 10/30/19 16:29 MICHAEL [id number] 10/30/19 16:31 MICHAEL 10/30/19 16:29 Wound Center Nurse 2 [Procedure/Treatment] -Time 16:29 -Correct Patient Yes -Correct Side, Site, Position Yes -Correct Procedure Yes -Procedure Performed Yes -Type of Procedure Debridement -Clinical Debridement Subcutaneous -Post Debridement Size (cm) - Length 2.5 -Post Debridement Size (cm) - Width 3.1 -Post Debridement Size (cm) - Depth 0.5 -Total Square Cm 7.75 -Wound/Ulcer Outcome Not Healed -Ulcer Cleansing Rinsed/ Irrigated with Saline -Foul Odor after Cleansing No -Bioengineered Tissue Yes -Type of bioengineered Tissue EPIFIX -Expiration Date 07/03/24 -Product Lot Number [id number] -Percent Used 100 -Saline Lot Number [id number] -Bleeding Controlled with Pressure -Offloading Yes -Type of Offloading Surgical Shoe -Treatment Response Procedure Tolerated Well [See Physician Procedure note for Specifics] Pain Scale: 0-10 Numeric [Pain] -Is Patient Pain Free? Yes Musculoskeletal: No Tenderness to Palpation of Joints or Extremities, Muscle Wasting, - - Fifth ray resection left Neurological: - - Lack of epicritic sensation light touch is consistent with neuropathy status Psych/Mental Status: Normal Affect, Appropriate Debridement Note Post-Debridement Measurements/Treatment WC - Nurse 2 - General Ulcer CM Notes Start: 10/02/19 13:43 Freq: Status: Active Protocol: Activity Type Activity Date Activity User E-Sign Co-Sign Detail Recorded Client Recorded Date Recorded By Document 10/02/19 14:20 [id number] 10/02/19 14:25 Document 10/23/19 16:12 [id number] 10/23/19 16:13 Document 10/30/19 16:29 [id number] 10/30/19 16:31 10/02/19 10/23/19 10/30/19 14:20 16:12 16:29 Wound Center Nurse 2 #7 LEFT LATERAL FOOT -Time 14:20 16:12 16:29 -Correct Patient Yes Yes Yes -Correct Side, Site, Position Yes Yes Yes -Correct Procedure Yes Yes Yes -Procedure Performed Yes Yes Yes -Type of Procedure Debridement Debridement Debridement -Clinical Debridement Subcutaneous Subcutaneous Subcutaneous -Post Debridement Size (cm) - Length 3.1 3.1 2.5 -Post Debridement Size (cm) - Width 3.6 2.6 3.1 -Post Debridement Size (cm) - Depth 0.3 0.5 0.5 -Total Square Cm 11.16 8.06 7.75 -Wound/Ulcer Outcome Not Healed Not Healed Not Healed -Ulcer Cleansing Rinsed/ Rinsed/ Rinsed/ Irrigated with Irrigated with Irrigated with Saline Saline Saline -Foul Odor after Cleansing No No No -Bioengineered Tissue No No Yes -Type of bioengineered Tissue EPIFIX -Expiration Date 07/03/24 -Product Lot Number [id number] -Percent Used 100 -Saline Lot Number [id number] -Bleeding Controlled with Pressure Pressure Pressure -Offloading Yes Yes Yes -Type of Offloading Surgical Shoe Surgical Shoe Surgical Shoe -Treatment Response Procedure Procedure Procedure Tolerated Well Tolerated Well Tolerated Well #5- R LATERAL FOOT -Correct Patient No -Correct Side, Site, Position No -Correct Procedure No -Procedure Performed No -Post Debridement Size (cm) - Length 0 -Post Debridement Size (cm) - Width 0 -Post Debridement Size (cm) - Depth 0 -Total Square Cm 0 -Wound/Ulcer Outcome Healed- Epithelialized #4- R LAT PLANTAR -Correct Patient No -Correct Side, Site, Position No -Correct Procedure No -Procedure Performed No -Post Debridement Size (cm) - Length 0 -Post Debridement Size (cm) - Width 0 -Post Debridement Size (cm) - Depth 0 -Total Square Cm 0 -Wound/Ulcer Outcome Healed- Epithelialized #3- L PLANTAR -Correct Patient No -Correct Side, Site, Position No -Correct Procedure No -Procedure Performed No -Wound/Ulcer Outcome Converted Pain Scale: 0-10 Numeric Is Patient Pain Free? Yes Yes Yes Wound debrided: lateral distal foot Laterality: Left Wound Grade/Stage: grade 1 Type of Debridement: Excisional debridement Anesthesia Used: 5% Lidocaine Gel Depth: in the subcutaneous layer Percentage of wound debrided: 100 Instrument Used: #15 blade Tissue Removed: fibrous, devitalized subcutaneous, biofilm, slough Severity: Fat Layer Exposed Amount of bleeding with debridement: Mild Bleeding Controlled with: Pressure Patient tolerated procedure well Assessment/Plan Assessment: Diabetes with neuropathy (hemoglobin A1c 12%). status post left fifth ray resection for treatment of osteomyelitis and now chronic ulcer, stable. Foot deformities including hammertoes, tailor bunion, and hallux limitus bilateral. Peripheral vascular disease now status post vascular surgery intervention. Other comorbidities including noncompliance, renal disease on dialysis, cardiac history. Malnutrition suspected. Gait instability Plan: I reviewed and discussed his case. Subcutaneous excisional debridement was performed to the left foot as noted in the clinical panel. He is progressing well and I recommend utilization of an advanced wound healing product, epi-fix. Prior authorization was confirmed. The indication, benefits, anticipated application course and healing management were discussed. He understands elects to proceed forward. This is medically necessary to avoid further limb loss. I also recommend the application of a brigid wound VAC. He would benefit from utilizing a device with the same benefits as a traditional wound VAC but that is less cumbersome. Verbal consent was obtained today and the epi-fix was applied according to standard protocol. This was further secured in place with a wound veil and Steri-Strips. A secondary dressing of a brigid wound VAC was also applied and placed on continuous. The benefits and indications of both these products were reviewed. He was advised to keep these clean, dry, and intact until follow-up next week. He is advised to report any malfunction of the wound VAC or temporary deactivation immediately if this happens. He was advised to use assistive devices to better balance himself during times of showering or ambulation. To continue with offloading surgical shoes and heel weight-bear on the left foot and to return extra-depth shoe on the right foot. To use assistive device as needed. Compliance was discussed. To note: His prior clearance fragment was sent to pathology did not demonstrate residual osteomyelitis. His pathology clearance fragment was negative from surgery that was performed on 09-09-2019 the left foot. His microbiology clearance fragment demonstrated E. coli growth in the minimal amount. It is noted that he completed IV vancomycin and ceftezole and with dialysis and also oral Flagyl as prescribed by infectious disease specialist. The end date was 10-18-2019. Vascular surgery intervention is noted in greatly appreciated. He had an abdominal pelvic right lower extremity arteriogram with angioplasty of the right proximal anterior tibial artery and right tibial peroneal trunk that was successful. To follow-up with Dr. Tuttle as scheduled. To continue with nutritional supplementation proper glycemic control to optimize healing. Compliance was discussed. It is noted that he is at risk for limb loss due to his condition including his multiple comorbidities. His lab trends will be followed. I answered all his questions. The patient was advised to return to the wound healing center in 1 week or call sooner if he is any questions or concerns.
== END 2019-10-31 23:59 ==
LOC: WC 15:45
PROVIDERS: Family Provider Internal Medicine; PCP Internal Medicine; Visit Provider Podiatrist
DX: E11.621 Type 2 diabetes mellitus with foot ulcer (principal); N18.6 End stage renal disease; Z99.2 Dependence on renal dialysis; E11.22 Type 2 diabetes mellitus with diabetic chronic kidney disease; E11.51 Type 2 diabetes mellitus with diabetic peripheral angiopathy without gangrene; L97.522 Non-pressure chronic ulcer of other part of left foot with fat layer exposed; E11.40 Type 2 diabetes mellitus with diabetic neuropathy, unspecified
CPT/HCPCS: 11042; 15275; 97605; 97607; 99213; Q4186; G0463

== ENCOUNTER 2019-11-11 17:51 | Emergency (ER) | payer MEDICARE, MEDICAID, SELFPAY ==
[2019-11-08 13:50] VITALS: BMI 38.0
[2019-11-11 17:53] VITALS: BP 199/81; PULSE 71; RESP 22; TEMP 36.7; O2SAT 97; BMI 34.4
--- NOTE | 2019-11-11 17:57 | CT_ITS ---
STUDY: CT BRAIN WITHOUT CONTRAST REASON FOR EXAM: Male, 49 years old. HEADACHE WITH HYPERTENSION AND NAUSEA RADIATION DOSAGE (If Supplied By Facility): CTDIvol = ( 44.99 ) mGy, DLP = ( 762.36 ) mGycm TECHNIQUE: Transaxial CT imaging of the brain was performed without administration of intravenous contrast material. Individualized dose optimization techniques were used for this CT. COMPARISON: Noncontrast CT brain September 04, 2019. FINDINGS: Normal soft tissue structures. Normal calvarium. Normal size ventricles and extra-axial spaces for the patient''s age. Normal white matter tracts of the cerebral hemispheres. Normal basal ganglia and thalami. Normal brainstem. Normal cerebellum. There are atherosclerotic calcifications of the cavernous segments of the bilateral internal carotid arteries. There is no intracranial hemorrhage. There are no findings of an acute ischemic infarction. Normal visualized paranasal sinuses. CT/Brain/Head without Contrast IMPRESSION: No acute intracranial pathology. Electronically Signed: Kayden Ceballos MD at 19:13 EDT , Service support ,
--- NOTE | 2019-11-11 17:57 | EKG12_ITS ---
Test Reason : HEADACHE Blood Pressure : / mmHG Vent. Rate : 069 BPM Atrial Rate : 069 BPM P-R Int : 164 ms QRS Dur : 084 ms QT Int : 438 ms P-R-T Axes : 028 012 231 degrees QTc Int : 469 ms Normal sinus rhythm ST & T wave abnormality, consider lateral ischemia Prolonged QT Abnormal ECG Confirmed by COMPA ALCALA [id number]), copy editor DEREK KEARNS ([id number]) on 11/18/2019 1:46:46 PM Referred By: SEYMOUR STALEY Confirmed By:COMPA ALCALA
[2019-11-11 17:59] VITALS: BP 195/76; PULSE 69; PULSE 70; RESP 22; TEMP 36.7; O2SAT 100; O2SAT 94
[2019-11-11 18:30] LABS: Absolute Lymphocyte Count 1.15 X10^3/uL (0.83-4.51); Absolute Neutrophil Count 5.9 X10^3/uL (2.0-7.7); Basophil# 0.07 X10^3/uL; Basophil% 0.8 % (0-1); Eosinophil# 0.52 X10^3/uL; Eosinophils% 6.2 % (0-5); Hemoglobin 10.8 g/dL (13.0-16.5); Lymphocyte # 1.15 X10^3/ul (4.0); Lymphocyte % 13.7 % (19-41); Mean Corp Hgb Conc 31.8 g/dL (32-36); Mean Corpuscular Hgb 28.3 pg (27.0-32.0); Mean Corpuscular Volume 89.2 fL (80-94); Mean Platelet Vol. 10.5 fl (6.2-12.0); Monocyte# 0.66 X10^3/uL; Monocyte% 7.9 % (0-10); NRBC Flagged by Analyzer 0 % (0-5); Neutrophil # 5.91 X10^3/uL (2.7-7.7); Neutrophil % 70.4 % (47-70); Platelet Count 204 K/mm3 (150-450); RBC Distribution Width CV 14.1 % (11.6-14.6); RBC Distribution Width SD 45.6 fl (35.1-43.9); Red Blood Count 3.81 M/mm3 (4.6-6.2); White Blood Count 8.4 K/mm3 (4.4-11.0)
[2019-11-11 18:36] LABS: Anion Gap 12 (5-15); BUN 65 mg/dL (7-18); BUN/Creat Ratio 9.8 RATIO (10-20); Calcium,Total 8.9 mg/dL (8.5-10.1); Chloride 99 mmol/L (98-107); Creatinine, Serum 6.63 mg/dL (0.70-1.30); EST Glomerular Filtration Rate 9 mL/min (>60); Est Glom Filt Rate - Afr Amer 11 mL/min (>60); Estimated Creatinine Clearance 12.32 ml/min; Glucose 301 mg/dL (74-106); Potassium 4.9 mmol/L (3.5-5.1); Sodium Level 137 mmol/L (136-145)
[2019-11-11] MEDS: proMETHazine 25 MG/ML Syringe 6.25 MG IV (18:37)
[2019-11-11 20:05] VITALS: BP 186/83; PULSE 66; RESP 12; TEMP 36.7; O2SAT 93
[2019-11-11] MEDS: hydrALAZINE 20 MG/ML Vial 10 MG IV (20:07)
[2019-11-11 21:11] VITALS: BP 191/88; PULSE 72; RESP 12; TEMP 36.5; O2SAT 96
[2019-11-11] MEDS: hydrALAZINE 20 MG/ML Vial IV (21:14)
[2019-11-11] MEDS: fentaNYL 100 MCG/2 ML Ampul 25 MCG IV ×2 (21:16→23:19)
[2019-11-11 21:45] VITALS: BP 172/74
--- NOTE | 2019-11-11 23:03 | ED.VIS.GEN ---
History of Present Illness Chief Complaint: Headache Informant: Patient Onset: Today Current Severity: Moderate Maximum Severity: Moderate Narrative: Presents secondary to headache and elevated blood pressure. He states his home visiting nurse had noted his blood pressure quite elevated the last several days he denies any recent changes to his blood pressure medications. On review of his medications it appears he is only currently taking metoprolol 50 mg twice daily. Patient is dialysis dependent. He had a full run 2 days ago. He is due for dialysis tomorrow. He denies chest pain or shortness of breath. He denies vision change, nausea, or vomiting. He denies recent head injury. - Past Medical History (1) CHF (congestive heart failure) Status: Chronic (2) Chronic respiratory failure with hypoxia Status: Chronic (3) Diabetic neuropathy Status: Chronic (4) End stage renal disease on dialysis Status: Chronic (5) HTN (hypertension) Status: Chronic (6) Hyperlipidemia Status: Chronic (7) Peripheral vascular disease Status: Chronic (8) Pulmonary hypertension Status: Chronic (9) Type 2 diabetes mellitus with diabetic polyneuropathy Status: Chronic (10) TIA (transient ischemic attack) Status: Inactive Past Medical History - Allergies and Home Meds Allergies/Adverse Reactions: Allergies venom-honey bee [bee venom (honey bee)] Allergy (Verified 11/11/19 17:58) Swelling sulfamethoxazole [From Bactrim] Adverse Reaction (Verified 11/11/19 17:58) Upset Stomach trimethoprim [From Bactrim] Adverse Reaction (Verified 11/11/19 17:58) Upset Stomach Primary Care Physician: Augie Washburn MD [Primary Care Provider] - Prior records reviewed: Yes Surgical History: tonsillectomy, - Lives: Spouse/ Significant Other Smoking Status: Never smoker - Family History Maternal Family History: Family History (Last Reviewed 10/07/19 @ 13:16 by LATASHA Osullivan) Mother Hypertension Heart disease Diabetes Father Hypertension Heart disease Brother Heart disease Family History: Reports: Diabetes, Heart Disease, Hypertension, Renal Disease Paternal Family History: Family History (Last Reviewed 10/07/19 @ 13:16 by LATASHA Osullivan) Mother Hypertension Heart disease Diabetes Father Hypertension Heart disease Brother Heart disease Family History: Reports: Cancer - liver, Diabetes, Heart Disease Review of Systems General: Denies: Chills, Fever Eyes: Denies: Visual changes - bilaterally ENT: Denies: Bilateral ear pain Cardiovascular: Denies: Chest pain Respiratory: Denies: Dyspnea, Cough Gastrointestinal: Reports: Nausea. Denies: Abdominal pain, Vomiting, Diarrhea Musculoskeletal: Denies: Extremity Pain Neurological: Reports: Headache. Denies: Weakness Hematologic: Denies: Easy bruising, Easy bleeding Allergy: Denies: Uticaria Physical Exam Vital Signs/Narrative: Vital Signs Temp Pulse Resp BP Pulse Ox 11/11/19 21:45 172/74 H 11/11/19 21:11 97.7 F L 72 12 191/88 H 96 11/11/19 20:05 98.1 F 66 12 186/83 H 93 Inital Vital Signs reviewed: Yes General: Well nourished, Well developed Head: Normocephalic ENT: Moist mucous membranes Neck: Supple Cardiovascular: Regular rate, Regular rhythm Respiratory: No distress, CTA bilaterally Abdomen: Soft, Nontender Extremities: - - Right upper extremity fistula with thrill. Skin: Normal color Neurological: Alert, Oriented x3, - - No neurologic deficits. Psychological: Normal affect Diagnostic/Tx/Re-eval Impressions Brain CT 11/11/19 17:57 IMPRESSION: No acute intracranial pathology. Electronically Signed: Kayden Ceballos MD at 19:13 EDT , Service support , 11/11/19 17:57 Brain/Head without Contrast [CT] Stat Laboratory Results 11/11/19 11/11/19 18:15 18:15 WBC 8.4 RBC 3.81 L Hgb 10.8 L Hct 34.0 L MCV 89.2 MCH 28.3 MCHC 31.8 L RDW Std Deviation 45.6 H RDW Coeff of Roberto 14.1 Plt Count 204 MPV 10.5 Immature Gran % (Auto) 1.000 H Neut % (Auto) 70.4 H Lymph % (Auto) 13.7 L Faulkner % (Auto) 7.9 Eos % (Auto) 6.2 H Baso % (Auto) 0.8 Absolute Neuts (auto) 5.9 Absolute Lymphs (auto) 1.15 Nucleated RBC % 0 Sodium 137 Potassium 4.9 Chloride 99 Carbon Dioxide 26.0 Anion Gap 12 BUN 65 H Creatinine 6.63 H Estim Creat Clear Calc 12.32 Est GFR (MDRD) Af Amer 11 L Est GFR (MDRD) Non-Af 9 L BUN/Creatinine Ratio 9.8 L Glucose 301 H Calcium 8.9 - EKG Initial EKG Interpretation: Sinus Rhythm - Sinus at 69. Chronic lateral changes, unchanged from September 04, 2019. - Medical Decision Making Patient was initially given a dose of labetalol with no significant change in his blood pressure. This was followed by 2 doses of hydralazine. He did receive Phenergan for nausea along with fentanyl for pain control. At this time patient has had multiple blood pressure readings in the 170s, consistent with a 20% drop as his blood pressure was 210-220 systolic on arrival. Patient be given his normal evening dose of metoprolol. His home visiting nurses to check his blood pressures regularly. He will be monitored at dialysis tomorrow. Head CT and blood work is unremarkable at this time other than his chronic renal failure. ED Disposition - Plan for ED Patient: Disposition: Home or Assisted Living Diagnosis: Cephalgia, Hypertension Instructions: ED Hypertension Established Referrals: Augie Washburn MD [Primary Care Provider] -
[2019-11-11] MEDS: Metoprolol Tartrate 25 MG Tablet 50 MG PO (23:23)
[2019-11-11 23:24] VITALS: BP 209/95; PULSE 76; RESP 18; TEMP 36.5; O2SAT 95
[2019-11-12 00:05] VITALS: BP 198/88; PULSE 72; RESP 16; TEMP 36.5; O2SAT 96
[2019-11-12 00:15] VITALS: BP 171/75
[2019-11-12 00:30] VITALS: BP 171/79
== END 2019-11-12 00:46 | disposition home or self-care (01) ==
PROVIDERS: Emergency Provider Emergency Medicine; PCP Internal Medicine
DX: R51 Headache (principal); I13.2 Hypertensive heart and chronic kidney disease with heart failure and with stage 5 chronic kidney disease, or end stage renal disease; E78.5 Hyperlipidemia, unspecified; E11.42 Type 2 diabetes mellitus with diabetic polyneuropathy; E11.22 Type 2 diabetes mellitus with diabetic chronic kidney disease; N18.6 End stage renal disease; Z79.82 Long term (current) use of aspirin; Z79.899 Other long term (current) drug therapy; Z79.4 Long term (current) use of insulin; Z99.2 Dependence on renal dialysis
CPT/HCPCS: 70450; 80048; 85025; 93005; 96374; 96375; 96376; 99285; A4216

== ENCOUNTER 2019-11-26 17:53 | Emergency (ER) | payer MEDICARE, MEDICAID, SELFPAY ==
[2019-11-26 17:53] VITALS: BP 123/69; PULSE 77; RESP 20; TEMP 37.1; O2SAT 94; BMI 34.4
--- NOTE | 2019-11-26 18:02 | EKG12_ITS ---
Test Reason : DYSRHYTHMIA Blood Pressure : / mmHG Vent. Rate : 065 BPM Atrial Rate : 065 BPM P-R Int : 142 ms QRS Dur : 086 ms QT Int : 434 ms P-R-T Axes : -02 -09 022 degrees QTc Int : 451 ms Normal sinus rhythm Normal ECG Confirmed by COMPA ALCALA ([id number]), editor department DEREK KEARNS ([id number]) on 11/28/2019 2:21:03 PM Referred By: Confirmed By:COMPA ALCALA
--- NOTE | 2019-11-26 18:02 | ED.VIS.GEN ---
History of Present Illness Chief Complaint: General Illness Informant: Patient Narrative: Patient presents the emergency department for EMS after family told him that his skin and his lips were looking purple and santana. He went to dialysis today spent 4 hours on the machine like normal. Afterwards he went to [employer] gotten unsweetened tea and a couple double cheeseburgers. He states that home health came and stated that he did not seem like himself. was concerned about his lips looking purple in his skin looking a purplish santana. As he was getting into the ambulance he said maybe felt a little lightheaded. He states he feels wiped which is sometimes the way he feels after dialysis. He denies any chest pain or shortness of breath. He notes he is not experience any more leg swelling than normal. No focal neurologic deficits. Past Medical History - Allergies and Home Meds Allergies/Adverse Reactions: Allergies venom-honey bee [bee venom (honey bee)] Allergy (Verified 11/26/19 17:58) Swelling sulfamethoxazole [From Bactrim] Adverse Reaction (Verified 11/26/19 17:58) Upset Stomach trimethoprim [From Bactrim] Adverse Reaction (Verified 11/26/19 17:58) Upset Stomach Primary Care Physician: Augie Washburn MD [Primary Care Provider] - Keep Lorenzo appointment Surgical History: tonsillectomy, - Smoking Status: Never smoker - Family History Maternal Family History: Family History (Last Reviewed 10/07/19 @ 13:16 by LATASHA Osullivan) Mother Hypertension Heart disease Diabetes Father Hypertension Heart disease Brother Heart disease Family History: Reports: Diabetes, Heart Disease, Hypertension, Renal Disease Paternal Family History: Family History (Last Reviewed 10/07/19 @ 13:16 by LATASHA Osullivan) Mother Hypertension Heart disease Diabetes Father Hypertension Heart disease Brother Heart disease Family History: Reports: Cancer - liver, Diabetes, Heart Disease Review of Systems General: Reports: Malaise. Denies: Chills, Fever, Sweats Eyes: Denies: Visual changes - bilaterally, Diplopia ENT: Denies: Rhinorrhea, Sore throat Cardiovascular: Denies: Chest pain, Palpitations Respiratory: Denies: Dyspnea, Cough, Dyspnea on exertion Gastrointestinal: Denies: Abdominal pain, Nausea, Vomiting, Diarrhea, Melena, Hematochezia Genitourinary: Denies: Dysuria, Hematuria, Frequency Musculoskeletal: Denies: Back pain, Extremity Pain Skin: Reports: - - See history of present illness. Denies: Rash, Wounds Neurological: Denies: Headache, Weakness, Numbness Physical Exam Vital Signs/Narrative: Vital Signs Temp Pulse Resp BP Pulse Ox 11/26/19 17:53 98.7 F 77 20 H 123/69 H 94 Inital Vital Signs reviewed: Yes General: Well nourished, Well developed, Obese, No Acute Distress Head: Normocephalic, Atraumatic Eyes: Perrl, EOMI ENT: Moist mucous membranes, No rhinorrhea Neck: Supple, Nontender Cardiovascular: Regular rate, Regular rhythm, No murmurs Respiratory: No distress, CTA bilaterally, Chest nontender Abdomen: Soft, Nontender, Nondistended, Normal bowel sounds Back: Nontender, Normal Inspection Extremities: Nontender, Edema - Equal bilateral lower extremity edema Skin: Normal color, No rash Neurological: Alert, Oriented x3, Cranial nerves II-XII grossly intact, Normal Strength, Normal Sensation Psychological: Normal affect, Normal Mood Diagnostic/Tx/Re-eval Laboratory Last Values WBC 10.9 K/mm3 (4.4-11.0) 11/26/19 18:10 RBC 3.74 M/mm3 (4.6-6.2) L 11/26/19 18:10 Hgb 11.0 g/dL (13.0-16.5) L 11/26/19 18:10 Hct 34.7 % (40-54) L 11/26/19 18:10 MCV 92.8 fL (80-94) 11/26/19 18:10 MCH 29.4 pg (27.0-32.0) 11/26/19 18:10 MCHC 31.7 g/dL (32-36) L 11/26/19 18:10 RDW Std Deviation 50.8 fl (35.1-43.9) H 11/26/19 18:10 RDW Coeff of Roberto 16.1 % (11.6-14.6) H 11/26/19 18:10 Plt Count 245 K/mm3 (150-450) 11/26/19 18:10 MPV 10.1 fl (6.2-12.0) 11/26/19 18:10 Immature Gran % (Auto) 1.400 % (0.0-0.9) H 11/26/19 18:10 Neut % (Auto) 75.9 % (47-70) H 11/26/19 18:10 Lymph % (Auto) 11.2 % (19-41) L 11/26/19 18:10 [place] % (Auto) 7.8 % (0-10) 11/26/19 18:10 Eos % (Auto) 3.0 % (0-5) 11/26/19 18:10 Baso % (Auto) 0.7 % (0-1) 11/26/19 18:10 Absolute Neuts (auto) 8.3 X10^3/uL (2.0-7.7) H 11/26/19 18:10 Absolute Lymphs (auto) 1.22 X10^3/uL (0.83-4.51) 11/26/19 18:10 Nucleated RBC % 0 % (0-5) 11/26/19 18:10 Sodium 133 mmol/L (136-145) L 11/26/19 18:10 Potassium 4.5 mmol/L (3.5-5.1) 11/26/19 18:10 Chloride 94 mmol/L (98-107) L 11/26/19 18:10 Carbon Dioxide 32.0 mmol/L (21.0-32.0) 11/26/19 18:10 Anion Gap 7 (5-15) 11/26/19 18:10 BUN 31 mg/dL (7-18) H 11/26/19 18:10 Creatinine 4.09 mg/dL (0.70-1.30) H 11/26/19 18:10 Estim Creat Clear Calc 19.98 ml/min 11/26/19 18:10 Est GFR (MDRD) Af Amer 20 mL/min (>60) L 11/26/19 18:10 Est GFR (MDRD) Non-Af 17 mL/min (>60) L 11/26/19 18:10 BUN/Creatinine Ratio 7.6 RATIO (10-20) L 11/26/19 18:10 Glucose 249 mg/dL (74-106) H 11/26/19 18:10 Calcium 8.5 mg/dL (8.5-10.1) 11/26/19 18:10 - EKG Initial EKG Interpretation: Sinus Rhythm - EKG demonstrates a normal sinus rhythm at a rate of 65 without ectopy or concerning features of ACS. - Medical Decision Making Patient has normal vital signs. He is not orthostatic. His EKG is a normal sinus rhythm. He is not significantly/symptomatically anemic. Electrolytes are in check. At this point patient will be discharged home. ED Disposition - Plan for ED Patient: Disposition: Home or Assisted Living Diagnosis: CHF (congestive heart failure), End stage renal disease on dialysis, Fatigue Instructions: ED END STAGE RENAL DISEASE Referrals: Augie Washburn MD [Primary Care Provider] - Keep Lorenzo appointment
[2019-11-26 18:21] LABS: Absolute Lymphocyte Count 1.22 X10^3/uL (0.83-4.51); Absolute Neutrophil Count 8.3 X10^3/uL (2.0-7.7); Basophil# 0.08 X10^3/uL; Basophil% 0.7 % (0-1); Eosinophil# 0.33 X10^3/uL; Hematocrit 34.7 % (40-54); Lymphocyte # 1.22 X10^3/ul (4.0); Lymphocyte % 11.2 % (19-41); Mean Corp Hgb Conc 31.7 g/dL (32-36); Mean Corpuscular Hgb 29.4 pg (27.0-32.0); Mean Corpuscular Volume 92.8 fL (80-94); Mean Platelet Vol. 10.1 fl (6.2-12.0); Monocyte# 0.85 X10^3/uL; Monocyte% 7.8 % (0-10); NRBC Flagged by Analyzer 0 % (0-5); Neutrophil # 8.25 X10^3/uL (2.7-7.7); Neutrophil % 75.9 % (47-70); Platelet Count 245 K/mm3 (150-450); RBC Distribution Width CV 16.1 % (11.6-14.6); RBC Distribution Width SD 50.8 fl (35.1-43.9); Red Blood Count 3.74 M/mm3 (4.6-6.2); White Blood Count 10.9 K/mm3 (4.4-11.0)
[2019-11-26 18:40] LABS: Anion Gap 7 (5-15); BUN 31 mg/dL (7-18); BUN/Creat Ratio 7.6 RATIO (10-20); Calcium,Total 8.5 mg/dL (8.5-10.1); Chloride 94 mmol/L (98-107); Creatinine, Serum 4.09 mg/dL (0.70-1.30); EST Glomerular Filtration Rate 17 mL/min (>60); Est Glom Filt Rate - Afr Amer 20 mL/min (>60); Estimated Creatinine Clearance 19.98 ml/min; Glucose 249 mg/dL (74-106); Potassium 4.5 mmol/L (3.5-5.1); Sodium Level 133 mmol/L (136-145)
[2019-11-26 18:48] VITALS: BP 105/56; PULSE 70
[2019-11-26 19:09] VITALS: BP 166/67; PULSE 70; RESP 20; O2SAT 98
== END 2019-11-26 19:11 | disposition home or self-care (01) ==
PROVIDERS: Emergency Provider Emergency Medicine; PCP Internal Medicine
DX: I50.9 Heart failure, unspecified (principal); N18.6 End stage renal disease; R53.83 Other fatigue; Z99.2 Dependence on renal dialysis
CPT/HCPCS: 80048; 85025; 93005; 99285; A4216

== ENCOUNTER 2019-11-27 14:30 | Outpatient (RCR) | payer MEDICARE, MEDICAID, SELFPAY ==
[2019-11-01 00:10] VITALS: BP 167/64; PULSE 77; RESP 18; TEMP 36.6; O2SAT 97
[2019-11-06 15:21] VITALS: BP 199/78; RESP 18; TEMP 36.3; BMI 38.0
--- NOTE | 2019-11-06 16:07 | PCM.WC.PN ---
(1) Peripheral vascular disease Status: Chronic Current Visit: Yes Code(s): I73.9 - Peripheral vascular disease, unspecified (2) Chronic ulcer of left foot with fat layer exposed Status: Chronic Current Visit: Yes Code(s): L97.522 - Non-pressure chronic ulcer of other part of left foot with fat layer exposed (3) Type 2 diabetes mellitus with diabetic polyneuropathy Status: Chronic Current Visit: Yes Qualifiers: Code(s): E11.42 - Type 2 diabetes mellitus with diabetic polyneuropathy Type of Wound Date of Service: 11/06/19 Chief Complaint: Left foot ulcer History of Wound: This 49-year-old male with diabetes, peripheral vascular disease (calcified vessels), chronic kidney disease, sleep apnea, obesity and other comorbidities had chronic bilateral foot ulcers with prior history of osteomyelitis that was treated medically and surgically. He recently underwent left fifth ray resection was left partially open with Dr. Shipley, and he was subsequently treated with IV and oral antibiotics under the management of infectious disease and completed a course of vancomycin and cefazolin intravenously on hemodialysis days and oral Flagyl as well. The stop date of antibiotics was 10-18-2019. He denies fever, chill, nausea, vomiting. It is also noted he had prior vascular intervention with Dr. Tuttle earlier this year. He offloads with surgical shoe. He continues with the wound VAC and home health. He is with his today. He is amendable to proceed with brigid wound VAC and advanced wound healing product, epi-fix, today to optimize healing. Wound care center nursing staff reports a lot of drainage in the brigid wound VAC today. Progress of Wound: Improving left - Physical Exam Vital Signs Temp Pulse Resp BP Pulse Ox 97.4 F L 77 18 199/78 H 97 11/06/19 15:21 11/01/19 00:10 11/06/19 15:21 11/06/19 15:21 11/01/19 00:10 General: Alert, Oriented x3, Cooperative, No apparent distress HEENT: Atraumatic Extremities: No cyanosis, Capillary Refill Less than 3 Seconds, No Calf Tenderness, Diminished Peripheral Pulses, Edema Skin: Ulcer/ Wound - No purulence, erythema, streaking, odor, infection. The peripheral skin is hairless and atrophic. The ulcer bed is granular. There is no deep tissue exposed Wound Measurements and Assessment WC - Nurse 1 - General Ulcer Measurement Start: 11/06/19 15:21 Freq: Status: Active Protocol: Activity Type Activity Date Activity User E-Sign Co-Sign Detail Recorded Client Recorded Date Recorded By Document 11/06/19 15:21 PL [id number] 11/06/19 15:33 PL 11/06/19 15:21 Wound Center Nurse 1 [Ulcer Assessment] #7 LEFT LATERAL FOOT -Combined with other wound No -Current Size (cm) - Length 3.0 -Current Size (cm) - Width 2.0 -Current Size (cm) - Depth 0.2 -Total Square Cm 6.00 -Photo Taken No -Epithelialization None Present -Tunneling No -Undermining/Tunneling No -Exudate Amt Large -Exudate Type Serosanguineous -Granulation Amt Large (67-100%) -Granulation Quality [place],Red -Slough/Fibrin Yes -Necrosis Amt Small (1-33%) -Necrotic Tissue Type Adherent Slough -Moisture (Amanda-wound Skin Appearance Maceration ) -Temperature (Amanda-wound Skin No Abnormality Appearance) (Pt Warm) -Ulcer Cleansing Rinsed/ Irrigated with Saline -Anesthetic Used 4% Lidocaine Solution Musculoskeletal: No Tenderness to Palpation of Joints or Extremities, Muscle Wasting, - - Fifth ray resection noted. No bogginess or fluctuance. The compartments are soft Neurological: - - Lack of epicritic sensation light touch is consistent with neuropathy status Psych/Mental Status: Normal Affect, Appropriate Debridement Note Wound debrided: lateral foot Laterality: Left Wound Grade/Stage: grade 1 Type of Debridement: Excisional debridement Anesthesia Used: 5% Lidocaine Gel Depth: in the subcutaneous layer Percentage of wound debrided: 100 Instrument Used: #15 blade Tissue Removed: fibrous, devitalized subcutaneous, biofilm, slough Severity: Fat Layer Exposed Amount of bleeding with debridement: Mild Bleeding Controlled with: Pressure Patient tolerated procedure well Assessment/Plan Active Problems (Last Reviewed 10/07/19 @ 13:16 by Miriam Mix NP-C) Peripheral vascular disease (Chronic) Chronic ulcer of left foot with fat layer exposed (Chronic) Type 2 diabetes mellitus with diabetic polyneuropathy (Chronic) Assessment: Diabetes with neuropathy (hemoglobin A1c 12%). status post left fifth ray resection for treatment of osteomyelitis and now chronic ulcer, stable. Foot deformities including hammertoes, tailor bunion, and hallux limitus bilateral. Peripheral vascular disease now status post vascular surgery intervention. Other comorbidities including noncompliance, renal disease on dialysis, cardiac history. Malnutrition suspected. Gait instability Plan: I reviewed and discussed his case. Subcutaneous excisional debridement was performed to the left foot as noted in the clinical panel. He is progressing well and I recommend utilization of an advanced wound healing product, epi-fix. Prior authorization was confirmed. The indication, benefits, anticipated application course and healing management were discussed. He understands elects to proceed forward. This is medically necessary to avoid further limb loss. I also recommend the application of a brigid wound VAC. He would benefit from utilizing a device with the same benefits as a traditional wound VAC but that is less cumbersome. Verbal consent was obtained today and the epi-fix was applied according to standard protocol. This was further secured in place with a wound veil and Steri-Strips. A secondary dressing of a brigid wound VAC was also applied and placed on continuous. The benefits and indications of both these products were reviewed. He was advised to keep these clean, dry, and intact until follow-up for nursing visit this upcoming Monday to change the outer brigid VAC and then next week for physician follow-up. He is advised to report any malfunction of the wound VAC or temporary deactivation immediately if this happens. He was advised to use assistive devices to better balance himself during times of showering or ambulation. To continue with offloading surgical shoes and heel weight-bear on the left foot and to return extra-depth shoe on the right foot. To use assistive device as needed. Compliance was discussed. To note: His prior clearance fragment was sent to pathology did not demonstrate residual osteomyelitis. His pathology clearance fragment was negative from surgery that was performed on 09-09-2019 the left foot. His microbiology clearance fragment demonstrated E. coli growth in the minimal amount. It is noted that he completed IV vancomycin and ceftezole and with dialysis and also oral Flagyl as prescribed by infectious disease specialist. The end date was 10-18-2019. Vascular surgery intervention is noted in greatly appreciated. He had an abdominal pelvic right lower extremity arteriogram with angioplasty of the right proximal anterior tibial artery and right tibial peroneal trunk that was successful. To follow-up with Dr. Tuttle as scheduled. To continue with nutritional supplementation proper glycemic control to optimize healing. Compliance was discussed. It is noted that he is at risk for limb loss due to his condition including his multiple comorbidities. His lab trends will be followed. I answered all his questions. The patient was advised to return to the wound healing center in 1 week or call sooner if he is any questions or concerns.
[2019-11-08 13:50] VITALS: PULSE 88; RESP 20; TEMP 37.2; BMI 38.0
[2019-11-13 14:38] VITALS: BP 114/53; PULSE 66; RESP 20; TEMP 36.6; BMI 38.0
--- NOTE | 2019-11-13 23:47 | PN.PCM_ITS ---
(1) Peripheral vascular disease Status: Chronic Code(s): I73.9 - Peripheral vascular disease, unspecified (2) Chronic ulcer of left foot with fat layer exposed Status: Chronic Code(s): L97.522 - Non-pressure chronic ulcer of other part of left foot with fat layer exposed (3) Type 2 diabetes mellitus with diabetic polyneuropathy Status: Chronic Qualifiers: Code(s): E11.42 - Type 2 diabetes mellitus with diabetic polyneuropathy Type of Wound Date of Service: 11/13/19 Chief Complaint: Left foot ulcer History of Wound: This 49-year-old male with diabetes, peripheral vascular disease (calcified vessels), chronic kidney disease, sleep apnea, obesity and other comorbidities had chronic bilateral foot ulcers with prior history of osteomyelitis that was treated medically and surgically. He recently underwent left fifth ray resection was left partially open with Dr. Shipley, and he was subsequently treated with IV and oral antibiotics under the management of infectious disease and completed a course of vancomycin and cefazolin intravenously on hemodialysis days and oral Flagyl as well. The stop date of antibiotics was 10-18-2019. He denies fever, chill, nausea, vomiting. It is also noted he had prior vascular intervention with Dr. Tuttle earlier this year. He offloads with surgical shoe. He continues with the wound VAC and home health. He is with his today. He is amendable to proceed with briigd wound VAC and advanced wound healing product, epi-fix, today to optimize healing. He relates he tolerates the brigid wound VAC better than a traditional [employer] wound VAC. He is happy with his progress so far. Progress of Wound: Improving left - Physical Exam Vital Signs Temp Pulse Resp BP Pulse Ox 97.8 F 66 20 H 114/53 L 97 11/13/19 14:38 11/13/19 14:38 11/13/19 14:38 11/13/19 14:38 11/01/19 00:10 General: Alert, Oriented x3, Cooperative, No apparent distress HEENT: Atraumatic Extremities: No cyanosis, Capillary Refill Less than 3 Seconds, No Calf Tenderness, Diminished Peripheral Pulses, Edema Skin: Ulcer/ Wound - No purulence, erythema, streaking, odor, infection. Adjacent skin is hairless and atrophic. The ulcer bed is granular with some peripheral epithelialization noted Wound Measurements and Assessment WC - Nurse 1 - General Ulcer Measurement Start: 11/06/19 15:21 Freq: Status: Active Protocol: Activity Type Activity Date Activity User E-Sign Co-Sign Detail Recorded Client Recorded Date Recorded By Document 11/13/19 14:38 [email or web address] [id number] 11/13/19 14:45 DL 11/13/19 14:38 Wound Center Nurse 1 [Ulcer Assessment] #7 LEFT LATERAL FOOT -Current Size (cm) - Length 2.8 -Current Size (cm) - Width 1.7 -Current Size (cm) - Depth 0.1 -Total Square Cm 4.76 -Photo Taken No -Exudate Amt Medium -Exudate Type Serosanguineous -Wound Margin Distinct, Outline Attached -Granulation Amt Large (67-100%) -Granulation Quality Red -Necrosis Amt Small (1-33%) -Necrotic Tissue Type Adherent Slough -Structure Exposed N/A -Texture (Amanda-wound Skin Appearance) Scarring -Moisture (Amanda-wound Skin Appearance Maceration ) -Color (Amanda-wound Skin Appearance) No Abnormality -Temperature (Amanda-wound Skin No Abnormality Appearance) (Pt Warm) -Tenderness on Palpation (Amanda-wound No Skin Appearance) -Ulcer Cleansing Wound Cleanser -Foul Odor after Cleansing No -Anesthetic Used 4% Lidocaine Solution - Nurse 2 - General Ulcer CM Notes Start: 11/06/19 15:21 Freq: Status: Active Protocol: Activity Type Activity Date Activity User E-Sign Co-Sign Detail Recorded Client Recorded Date Recorded By Document 11/13/19 15:13 MICHAEL [id number] 11/13/19 15:15 11/13/19 15:13 Wound Center Nurse 2 [Procedure/Treatment] -Time 15:14 -Correct Patient Yes -Correct Side, Site, Position Yes -Correct Procedure Yes -Procedure Performed Yes -Type of Procedure Debridement -Clinical Debridement Subcutaneous -Post Debridement Size (cm) - Length 2.8 -Post Debridement Size (cm) - Width 1.8 -Post Debridement Size (cm) - Depth 0.2 -Total Square Cm 5.04 -Wound/Ulcer Outcome Not Healed -Ulcer Cleansing Rinsed/ Irrigated with Saline -Foul Odor after Cleansing No -Bioengineered Tissue Yes -Type of bioengineered Tissue EPIFIX -Expiration Date 07/03/24 -Product Lot Number [id number] -Percent Used 100 -Saline Lot Number [id number] -Bleeding Controlled with Pressure -Offloading Yes -Type of Offloading Surgical Shoe -Treatment Response Procedure Tolerated Well [See Physician Procedure note for Specifics] Pain Scale: 0-10 Numeric [Pain] -Is Patient Pain Free? Yes Musculoskeletal: No Tenderness to Palpation of Joints or Extremities, Muscle Wasting, - - Amputation lateral forefoot noted and is stable Neurological: - - Lack of epicritic sensation consistent with neuropathy status Psych/Mental Status: Normal Affect, Appropriate Debridement Note Post-Debridement Measurements/Treatment WC - Nurse 2 - General Ulcer CM Notes Start: 11/06/19 15:21 Freq: Status: Active Protocol: Activity Type Activity Date Activity User E-Sign Co-Sign Detail Recorded Client Recorded Date Recorded By Document 11/06/19 16:14 [id number] 11/06/19 16:16 Document 11/13/19 15:13 [id number] 11/13/19 15:15 11/06/19 11/13/19 16:14 15:13 Wound Center Nurse 2 #7 LEFT LATERAL FOOT -Time 16:14 15:14 -Correct Patient Yes Yes -Correct Side, Site, Position Yes Yes -Correct Procedure Yes Yes -Procedure Performed Yes Yes -Type of Procedure Debridement Debridement -Clinical Debridement Subcutaneous Subcutaneous -Post Debridement Size (cm) - Length 3.1 2.8 -Post Debridement Size (cm) - Width 2.1 1.8 -Post Debridement Size (cm) - Depth 0.2 0.2 -Total Square Cm 6.51 5.04 -Wound/Ulcer Outcome Not Healed Not Healed -Ulcer Cleansing Rinsed/ Rinsed/ Irrigated with Irrigated with Saline Saline -Foul Odor after Cleansing No No -Bioengineered Tissue Yes Yes -Type of bioengineered Tissue EPIFIX EPIFIX -Expiration Date 07/03/24 07/03/24 -Product Lot Number [id number] -Percent Used 100 100 -Saline Lot Number [id number] -Bleeding Controlled with Pressure Pressure -Offloading Yes Yes -Type of Offloading Surgical Shoe Surgical Shoe -Treatment Response Procedure Procedure Tolerated Well Tolerated Well Pain Scale: 0-10 Numeric Is Patient Pain Free? Yes Yes Wound debrided: lateral forefoot Laterality: Left Wound Grade/Stage: grade 1 Type of Debridement: Excisional debridement Anesthesia Used: 5% Lidocaine Gel Depth: in the subcutaneous layer Percentage of wound debrided: 100 Instrument Used: #15 blade Tissue Removed: fibrous, devitalized subcutaneous, biofilm, slough Severity: Fat Layer Exposed Amount of bleeding with debridement: Mild Bleeding Controlled with: Pressure Patient tolerated procedure well Assessment/Plan Assessment: Diabetes with neuropathy (hemoglobin A1c 12%). status post left fifth ray resection for treatment of osteomyelitis and now chronic ulcer, stable. Foot deformities including hammertoes, tailor bunion, and hallux limitus bilateral. Peripheral vascular disease now status post vascular surgery intervention. Other comorbidities including noncompliance, renal disease on dialysis, cardiac history. Malnutrition suspected. Gait instability Plan: I reviewed and discussed his case. Subcutaneous excisional debridement wa s performed to the left foot as noted in the clinical panel. He is progressing well and I recommend utilization of an advanced wound healing product, epi-fix. Prior authorization was confirmed. The indication, benefits, anticipated application course and healing management were discussed. He understands elects to proceed forward. This is medically necessary to avoid further limb loss. I also recommend the application of a brigid wound VAC. This was applied again today. Verbal consent was obtained today and the epi-fix was applied according to standard protocol. This was further secured in place with a wound veil and Steri-Strips. A secondary dressing of a brigid wound VAC was also applied and placed on continuous. The benefits and indications of both these products were reviewed. He was advised to keep these clean, dry, and intact until follow-up for nursing visit this upcoming Monday to change the outer brigid VAC and then next week for physician follow-up. He is advised to report any malfunction of the wound VAC or temporary deactivation immediately if this happens. He was advised to use assistive devices to better balance himself during times of showering or ambulation. To continue with offloading surgical shoes and heel weight-bear on the left foot and to return extra-depth shoe on the right foot. To use assistive device as needed. Compliance was discussed. To note: His prior clearance fragment was sent to pathology did not demonstrate residual osteomyelitis. His pathology clearance fragment was negative from surgery that was performed on 09-09-2019 the left foot. His microbiology clearance fragment demonstrated E. coli growth in the minimal amount. It is noted that he completed IV vancomycin and ceftezole and with dialysis and also oral Flagyl as prescribed by infectious disease specialist. The end date was 10-18-2019. Vascular surgery intervention is noted in greatly appreciated. He had an abdominal pelvic right lower extremity arteriogram with angioplasty of the right proximal anterior tibial artery and right tibial peroneal trunk that was successful. To follow-up with Dr. Tuttle as scheduled. To continue with nutritional supplementation proper glycemic control to optimize healing. Compliance was discussed. It is noted that he is at risk for limb loss due to his condition including his multiple comorbidities. His lab trends will be followed. I answered all his questions. The patient was advised to return to the wound healing center in 1 week or call sooner if he is any questions or concerns.
[2019-11-20 15:32] VITALS: RESP 16; TEMP 36.3; BMI 38.0
--- NOTE | 2019-11-20 15:59 | PN.PCM_ITS ---
(1) Peripheral vascular disease Status: Chronic Code(s): I73.9 - Peripheral vascular disease, unspecified (2) Chronic ulcer of left foot with fat layer exposed Status: Chronic Code(s): L97.522 - Non-pressure chronic ulcer of other part of left foot with fat layer exposed (3) Type 2 diabetes mellitus with diabetic polyneuropathy Status: Chronic Qualifiers: Code(s): E11.42 - Type 2 diabetes mellitus with diabetic polyneuropathy Type of Wound Date of Service: 11/20/19 Chief Complaint: Left foot ulcer History of Wound: This 49-year-old male with diabetes, peripheral vascular disease (calcified vessels), chronic kidney disease, sleep apnea, obesity and other comorbidities had chronic bilateral foot ulcers with prior history of osteomyelitis that was treated medically and surgically. He recently underwent left fifth ray resection was left partially open with Dr. Shipley, and he was subsequently treated with IV and oral antibiotics under the management of infectious disease and completed a course of vancomycin and cefazolin intravenously on hemodialysis days and oral Flagyl as well. The stop date of antibiotics was 10-18-2019. He denies fever, chill, nausea, vomiting. It is also noted he had prior vascular intervention with Dr. Tuttle earlier this year. He offloads with surgical shoe. He continues with the wound VAC and home health. He is with his today. He relates he had some intermittent issues with his brigid wound VAC this past week and is not sure if the seal was broken. He denies any new pedal complaints or injuries. He denies odor. Progress of Wound: Improving left - Physical Exam Vital Signs Temp Pulse Resp BP Pulse Ox 97.3 F L 66 16 114/53 L 97 11/20/19 15:32 11/13/19 14:38 11/20/19 15:32 11/13/19 14:38 11/01/19 00:10 General: Alert, Oriented x3, Cooperative, No apparent distress Extremities: No cyanosis, Capillary Refill Less than 3 Seconds, No Calf Tenderness, Diminished Peripheral Pulses, Edema Skin: Ulcer/ Wound - No purulence, erythema, streaking, odor, infection. There is good peripheral epithelialization noted in the ulcer bed is granular. There is no exposed tissue including bone or joint. The adjacent skin is hairless and atrophic. There is no maceration. Wound Measurements and Assessment WC - Nurse 1 - General Ulcer Measurement Start: 11/06/19 15:21 Freq: Status: Active Protocol: Activity Type Activity Date Activity User E-Sign Co-Sign Detail Recorded Client Recorded Date Recorded By Document 11/20/19 15:32 [email or web address] [id number] 11/20/19 15:40 [facility] 11/20/19 15:32 Wound Center Nurse 1 [Ulcer Assessment] #7 LEFT LATERAL FOOT -Combined with other wound No -Current Size (cm) - Length 2.3 -Current Size (cm) - Width 2.2 -Current Size (cm) - Depth 0.2 -Total Square Cm 5.06 -Photo Taken No -Epithelialization Small 1-33% -Tunneling No -Undermining/Tunneling No -Circular Undermining No -Exudate Amt Small -Exudate Type Serosanguineous -Wound Margin Distinct, Outline Attached -Granulation Amt Large (67-100%) -Granulation Quality [place] -Slough/Fibrin Yes -Necrosis Amt Small (1-33%) -Necrotic Tissue Type Adherent Slough -Texture (Amanda-wound Skin Appearance) Assessed, Scarring -Moisture (Amanda-wound Skin Appearance Assessed,Dry/ ) Scaly -Color (Amanda-wound Skin Appearance) Assessed -Temperature (Amanda-wound Skin No Abnormality Appearance) (Pt Warm) -Tenderness on Palpation (Amanda-wound No Skin Appearance) -Ulcer Cleansing soapy water -Foul Odor after Cleansing No -Anesthetic Used 5% Lidocaine Gel - Nurse 2 - General Ulcer CM Notes Start: 11/06/19 15:21 Freq: Status: Active Protocol: Activity Type Activity Date Activity User E-Sign Co-Sign Detail Recorded Client Recorded Date Recorded By Document 11/20/19 15:53 MICHAEL [id number] 11/20/19 15:55 11/20/19 15:53 Wound Center Nurse 2 [Procedure/Treatment] -Time 15:54 -Correct Patient Yes -Correct Side, Site, Position Yes -Correct Procedure Yes -Procedure Performed Yes -Type of Procedure Debridement -Clinical Debridement Subcutaneous -Post Debridement Size (cm) - Length 2.3 -Post Debridement Size (cm) - Width 2.3 -Post Debridement Size (cm) - Depth 0.2 -Total Square Cm 5.29 -Wound/Ulcer Outcome Not Healed -Ulcer Cleansing Rinsed/ Irrigated with Saline -Foul Odor after Cleansing No -Bioengineered Tissue Yes -Type of bioengineered Tissue EPIFIX -Expiration Date 08/03/24 -Product Lot Number [id number] -Percent Used 100 -Saline Lot Number [id number] -Bleeding Controlled with Pressure -Offloading Yes -Type of Offloading Surgical Shoe -Treatment Response Procedure Tolerated Well [See Physician Procedure note for Specifics] Pain Scale: 0-10 Numeric [Pain] -Is Patient Pain Free? Yes Musculoskeletal: No Tenderness to Palpation of Joints or Extremities, Muscle Wasting, - - Fifth ray resection noted left Neurological: - - Lack of normal epicritic sensation Psych/Mental Status: Normal Affect, Appropriate Debridement Note Post-Debridement Measurements/Treatment WC - Nurse 2 - General Ulcer CM Notes Start: 11/06/19 15:21 Freq: Status: Active Protocol: Activity Type Activity Date Activity User E-Sign Co-Sign Detail Recorded Client Recorded Date Recorded By Document 11/06/19 16:14 [id number] 11/06/19 16:16 Document 11/13/19 15:13 [id number] 11/13/19 15:15 Document 11/20/19 15:53 [id number] 11/20/19 15:55 11/06/19 11/13/19 11/20/19 16:14 15:13 15:53 Wound Center Nurse 2 #7 LEFT LATERAL FOOT -Time 16:14 15:14 15:54 -Correct Patient Yes Yes Yes -Correct Side, Site, Position Yes Yes Yes -Correct Procedure Yes Yes Yes -Procedure Performed Yes Yes Yes -Type of Procedure Debridement Debridement Debridement -Clinical Debridement Subcutaneous Subcutaneous Subcutaneous -Post Debridement Size (cm) - Length 3.1 2.8 2.3 -Post Debridement Size (cm) - Width 2.1 1.8 2.3 -Post Debridement Size (cm) - Depth 0.2 0.2 0.2 -Total Square Cm 6.51 5.04 5.29 -Wound/Ulcer Outcome Not Healed Not Healed Not Healed -Ulcer Cleansing Rinsed/ Rinsed/ Rinsed/ Irrigated with Irrigated with Irrigated with Saline Saline Saline -Foul Odor after Cleansing No No No -Bioengineered Tissue Yes Yes Yes -Type of bioengineered Tissue EPIFIX EPIFIX EPIFIX -Expiration Date 07/03/24 07/03/24 08/03/24 -Product Lot Number [id number] -Percent Used 100 100 100 -Saline Lot Number [id number] -Bleeding Controlled with Pressure Pressure Pressure -Offloading Yes Yes Yes -Type of Offloading Surgical Shoe Surgical Shoe Surgical Shoe -Treatment Response Procedure Procedure Procedure Tolerated Well Tolerated Well Tolerated Well Pain Scale: 0-10 Numeric Is Patient Pain Free? Yes Yes Yes Wound debrided: foot lateral distal aspect Laterality: Left Wound Grade/Stage: grade 1 Type of Debridement: Excisional debridement Anesthesia Used: 5% Lidocaine Gel Depth: in the subcutaneous layer Percentage of wound debrided: 100 Instrument Used: #15 blade Tissue Removed: devitalized subcutaneous, biofilm, slough, fibrous Severity: Fat Layer Exposed Amount of bleeding with debridement: Mild Bleeding Controlled with: Pressure Patient tolerated procedure well Assessment/Plan Assessment: Diabetes with neuropathy (hemoglobin A1c 12%). status post left fifth ray resection for treatment of osteomyelitis and now chronic ulcer, stable. Foot deformities including hammertoes, tailor bunion, and hallux limitus bilateral. Peripheral vascular disease now status post vascular surgery intervention. Other comorbidities including noncompliance, renal disease on dialysis, cardiac history. Malnutrition suspected. Gait instability Plan: I reviewed and discussed his case. Subcutaneous excisional debridement wa s performed to the left foot as noted in the clinical panel. He is progressing well and I recommend utilization of an advanced wound healing product, epi-fix. Prior authorization was confirmed. The indication, benefits, anticipated application course and healing management were discussed. He understands elects to proceed forward. This is medically necessary to avoid further limb loss. Verbal consent was obtained today and the epi-fix was applied according to standard protocol. This was further secured in place with a wound veil and Steri-Strips. A secondary dressing was placed. The brigid wound VAC was placed on hold this week due to the intermittent trouble he had this past week. He may be ready to transition off of this and will see how it looks with 1 week break. He was advised to keep these clean, dry, and intact until follow-up for nursing visit this upcoming Monday to change the outer brigid VAC and then next week for physician follow-up. He is advised to report any malfunction of the wound VAC or temporary deactivation immediately if this happens. He was advised to use assistive devices to better balance himself during times of showering or ambulation. To continue with offloading surgical shoes and heel weight-bear on the left foot and to return extra-depth shoe on the right foot. To use assistive device as needed. Compliance was discussed. To note: His prior clearance fragment was sent to pathology did not demonstrate residual osteomyelitis. His pathology clearance fragment was negative from surgery that was performed on 09-09-2019 the left foot. His microbiology clearance fragment demonstrated E. coli growth in the minimal amount. It is noted that he completed IV vancomycin and ceftezole and with dialysis and also oral Flagyl as prescribed by infectious disease specialist. The end date was 10-18-2019. Vascular surgery intervention is noted in greatly appreciated. He had an abdominal pelvic right lower extremity arteriogram with angioplasty of the right proximal anterior tibial artery and right tibial peroneal trunk that was successful. To follow-up with Dr. Tuttle as scheduled. To continue with nutritional supplementation proper glycemic control to optimize healing. Compliance was discussed. It is noted that he is at risk for limb loss due to his condition including his multiple comorbidities. His lab trends will be followed. I answered all his questions. The patient was advised to return to the wound healing center in 1 week or call sooner if he is any questions or concerns.
[2019-11-27 14:36] VITALS: BP 133/68; PULSE 63; RESP 16; TEMP 36.9; BMI 38.0
--- NOTE | 2019-11-27 15:18 | PN.PCM_ITS ---
(1) Peripheral vascular disease Status: Chronic Code(s): I73.9 - Peripheral vascular disease, unspecified (2) Chronic ulcer of left foot with fat layer exposed Status: Chronic Code(s): L97.522 - Non-pressure chronic ulcer of other part of left foot with fat layer exposed (3) Type 2 diabetes mellitus with diabetic polyneuropathy Status: Chronic Qualifiers: Code(s): E11.42 - Type 2 diabetes mellitus with diabetic polyneuropathy Type of Wound Date of Service: 11/27/19 Chief Complaint: Left foot ulcer History of Wound: This 49-year-old male with diabetes, peripheral vascular disease (calcified vessels), chronic kidney disease, sleep apnea, obesity and other comorbidities had chronic bilateral foot ulcers with prior history of osteomyelitis that was treated medically and surgically. He recently underwent left fifth ray resection was left partially open with Dr. Shipley, and he was subsequently treated with IV and oral antibiotics under the management of infectious disease and completed a course of vancomycin and cefazolin intravenously on hemodialysis days and oral Flagyl as well. The stop date of antibiotics was 10-18-2019. He denies fever, chill, nausea, vomiting. It is also noted he had prior vascular intervention with Dr. Tuttle earlier this year. He offloads with surgical shoe. He continues with the wound VAC and home health. He is with his today. He denies any new pedal complaints or injuries. He denies odor. Progress of Wound: Improving left - Physical Exam Vital Signs Temp Pulse Resp BP Pulse Ox 98.4 F 63 16 133/68 H 97 11/27/19 14:36 11/27/19 14:36 11/27/19 14:36 11/27/19 14:36 11/01/19 00:10 General: Alert, Oriented x3, Cooperative, No apparent distress HEENT: Atraumatic Extremities: No cyanosis, Capillary Refill Less than 3 Seconds, No Calf Tenderness, Diminished Peripheral Pulses, Edema Skin: Ulcer/ Wound - No purulence, erythema, streaking, odor, infection. Improving granulation tissue and peripheral epithelialization is noted. The peripheral skin is hairless and atrophic Wound Measurements and Assessment WC - Nurse 1 - General Ulcer Measurement Start: 11/06/19 15:21 Freq: Status: Active Protocol: Activity Type Activity Date Activity User E-Sign Co-Sign Detail Recorded Client Recorded Date Recorded By Document 11/27/19 14:36 [facility] [id number] 11/27/19 14:39 [facility] 11/27/19 14:36 Wound Center Nurse 1 [Ulcer Assessment] #7 LEFT LATERAL FOOT -Combined with other wound No -Current Size (cm) - Length 2.8 -Current Size (cm) - Width 1.4 -Current Size (cm) - Depth 0.1 -Total Square Cm 3.92 -Photo Taken No -Epithelialization Small 1-33% -Tunneling No -Undermining/Tunneling No -Circular Undermining No -Exudate Amt Small -Exudate Type Serosanguineous -Wound Margin Flat & Intact -Granulation Amt Large (67-100%) -Granulation Quality Red -Slough/Fibrin Yes -Necrosis Amt Small (1-33%) -Necrotic Tissue Type Adherent Slough -Texture (Amanda-wound Skin Appearance) Assessed -Moisture (Amanda-wound Skin Appearance Assessed, ) Maceration,Dry/ Scaly -Color (Amanda-wound Skin Appearance) Assessed,Palor -Temperature (Amanda-wound Skin No Abnormality Appearance) (Pt Warm) -Tenderness on Palpation (Amanda-wound No Skin Appearance) -Ulcer Cleansing soapy water -Foul Odor after Cleansing No -Anesthetic Used 5% Lidocaine Gel WC - Nurse 2 - General Ulcer CM Notes Start: 11/06/19 15:21 Freq: Status: Active Protocol: Activity Type Activity Date Activity User E-Sign Co-Sign Detail Recorded Client Recorded Date Recorded By Document 11/27/19 15:10 [id number] 11/27/19 15:11 11/27/19 15:10 Wound Center Nurse 2 [Procedure/Treatment] -Time 15:10 -Correct Patient Yes -Correct Side, Site, Position Yes -Correct Procedure Yes -Procedure Performed Yes -Type of Procedure Debridement -Clinical Debridement Subcutaneous -Post Debridement Size (cm) - Length 2.8 -Post Debridement Size (cm) - Width 1.5 -Post Debridement Size (cm) - Depth 0.1 -Total Square Cm 4.20 -Wound/Ulcer Outcome Not Healed -Ulcer Cleansing Rinsed/ Irrigated with Saline -Foul Odor after Cleansing No -Bioengineered Tissue Yes -Type of bioengineered Tissue EPIFIX -Expiration Date 07/03/24 -Product Lot Number [id number] -Percent Used 100 -Saline Lot Number [id number] -Bleeding Controlled with Pressure -Offloading Yes -Type of Offloading Surgical Shoe -Treatment Response Procedure Tolerated Well [See Physician Procedure note for Specifics] Pain Scale: 0-10 Numeric [Pain] -Is Patient Pain Free? Yes Musculoskeletal: No Tenderness to Palpation of Joints or Extremities, Muscle Wasting Neurological: - - Lack of normal epicritic sensation consistent with neuropathy via light touch Psych/Mental Status: Normal Affect, Appropriate Debridement Note Post-Debridement Measurements/Treatment WC - Nurse 2 - General Ulcer CM Notes Start: 11/06/19 15:21 Freq: Status: Active Protocol: Activity Type Activity Date Activity User E-Sign Co-Sign Detail Recorded Client Recorded Date Recorded By Document 11/06/19 16:14 [id number] 11/06/19 16:16 Document 11/13/19 15:13 [id number] 11/13/19 15:15 Document 11/20/19 15:53 [id number] 11/20/19 15:55 Document 11/27/19 15:10 [id number] 11/27/19 15:11 11/06/19 11/13/19 11/20/19 16:14 15:13 15:53 Wound Center Nurse 2 #7 LEFT LATERAL FOOT -Time 16:14 15:14 15:54 -Correct Patient Yes Yes Yes -Correct Side, Site, Position Yes Yes Yes -Correct Procedure Yes Yes Yes -Procedure Performed Yes Yes Yes -Type of Procedure Debridement Debridement Debridement -Clinical Debridement Subcutaneous Subcutaneous Subcutaneous -Post Debridement Size (cm) - Length 3.1 2.8 2.3 -Post Debridement Size (cm) - Width 2.1 1.8 2.3 -Post Debridement Size (cm) - Depth 0.2 0.2 0.2 -Total Square Cm 6.51 5.04 5.29 -Wound/Ulcer Outcome Not Healed Not Healed Not Healed -Ulcer Cleansing Rinsed/ Rinsed/ Rinsed/ Irrigated with Irrigated with Irrigated with Saline Saline Saline -Foul Odor after Cleansing No No No -Bioengineered Tissue Yes Yes Yes -Type of bioengineered Tissue EPIFIX EPIFIX EPIFIX -Expiration Date 07/03/24 07/03/24 08/03/24 -Product Lot Number [id number] -Percent Used 100 100 100 -Saline Lot Number [id number] -Bleeding Controlled with Pressure Pressure Pressure -Offloading Yes Yes Yes -Type of Offloading Surgical Shoe Surgical Shoe Surgical Shoe -Treatment Response Procedure Procedure Procedure Tolerated Well Tolerated Well Tolerated Well Pain Scale: 0-10 Numeric Is Patient Pain Free? Yes Yes Yes 11/27/19 15:10 Wound Center Nurse 2 #7 LEFT LATERAL FOOT -Time 15:10 -Correct Patient Yes -Correct Side, Site, Position Yes -Correct Procedure Yes -Procedure Performed Yes -Type of Procedure Debridement -Clinical Debridement Subcutaneous -Post Debridement Size (cm) - Length 2.8 -Post Debridement Size (cm) - Width 1.5 -Post Debridement Size (cm) - Depth 0.1 -Total Square Cm 4.20 -Wound/Ulcer Outcome Not Healed -Ulcer Cleansing Rinsed/ Irrigated with Saline -Foul Odor after Cleansing No -Bioengineered Tissue Yes -Type of bioengineered Tissue EPIFIX -Expiration Date 07/03/24 -Product Lot Number [id number] -Percent Used 100 -Saline Lot Number [id number] -Bleeding Controlled with Pressure -Offloading Yes -Type of Offloading Surgical Shoe -Treatment Response Procedure Tolerated Well Pain Scale: 0-10 Numeric Is Patient Pain Free? Yes Wound debrided: lateral forefoot Laterality: Left Wound Grade/Stage: grade 1 Type of Debridement: Excisional debridement Anesthesia Used: 5% Lidocaine Gel Depth: in the subcutaneous layer Percentage of wound debrided: 100 Instrument Used: #15 blade Tissue Removed: fibrous, devitalized subcutaneous, biofilm, slough Severity: Fat Layer Exposed Amount of bleeding with debridement: Mild Bleeding Controlled with: Pressure Patient tolerated procedure well Assessment/Plan Assessment: Diabetes with neuropathy (hemoglobin A1c 12%). status post left fifth ray resection for treatment of osteomyelitis and now chronic ulcer, stable. Foot deformities including hammertoes, tailor bunion, and hallux limitus bilateral. Peripheral vascular disease now status post vascular surgery intervention. Other comorbidities including noncompliance, renal disease on dialysis, cardiac history. Malnutrition suspected. Gait instability Plan: I reviewed and discussed his case. Subcutaneous excisional debridement was performed to the left foot as noted in the clinical panel. He is progressing well and I recommend utilization of an advanced wound healing product, epi-fix. Prior authorization was confirmed. The indication, benefits, anticipated application course and healing management were discussed. He understands elects to proceed forward. This is medically necessary to avoid further limb loss. Verbal consent was obtained today and the epi-fix was applied according to standard protocol. This was further secured in place with a wound veil and Steri-Strips. A secondary dressing was placed. The brigid wound VAC was discontinued due to healing progression. He was advised to keep these clean, dry, and intact until follow-up. He was advised to use assistive devices to better balance himself during times of showering or ambulation. To continue with offloading surgical shoes and heel weight-bear on the left foot and to return extra-depth shoe on the right foot. To use assistive device as needed. Compliance was discussed. To note: His prior clearance fragment was sent to pathology did not demonstrate residual osteomyelitis. His pathology clearance fragment was negative from surgery that was performed on 09-09-2019 the left foot. His microbiology clearance fragment demonstrated E. coli growth in the minimal amount. It is noted that he completed IV vancomycin and ceftezole and with dialysis and also oral Flagyl as prescribed by infectious disease specialist. The end date was 10-18-2019. Vascular surgery intervention is noted in greatly appreciated. He had an abdominal pelvic right lower extremity arteriogram with angioplasty of the right proximal anterior tibial artery and right tibial peroneal trunk that was successful. To follow-up with Dr. Tuttle as scheduled. To continue with nutritional supplementation proper glycemic control to optimize healing. Compliance was discussed. It is noted that he is at risk for limb loss due to his condition including his multiple comorbidities. His lab trends will be followed. I answered all his questions. The patient was advised to return to the wound healing center in 1 week or call sooner if he is any questions or concerns.
== END 2019-12-01 23:59 ==
LOC: WC 14:30
PROVIDERS: Family Provider Internal Medicine; PCP Internal Medicine; Visit Provider Podiatrist
DX: E11.621 Type 2 diabetes mellitus with foot ulcer (principal); L97.522 Non-pressure chronic ulcer of other part of left foot with fat layer exposed; E11.42 Type 2 diabetes mellitus with diabetic polyneuropathy; E11.51 Type 2 diabetes mellitus with diabetic peripheral angiopathy without gangrene; E11.22 Type 2 diabetes mellitus with diabetic chronic kidney disease; N18.9 Chronic kidney disease, unspecified; M20.42 Other hammer toe(s) (acquired), left foot; M20.41 Other hammer toe(s) (acquired), right foot; G47.30 Sleep apnea, unspecified; E66.9 Obesity, unspecified; Z99.2 Dependence on renal dialysis; Z79.82 Long term (current) use of aspirin; Z79.4 Long term (current) use of insulin; Z79.899 Other long term (current) drug therapy
CPT/HCPCS: 15275; 97607; Q4186

== ENCOUNTER 2019-12-18 14:30 | Outpatient (RCR) | payer MEDICARE, MEDICAID, SELFPAY ==
[2019-12-02 00:22] VITALS: BP 133/68; PULSE 63; RESP 16; TEMP 36.9; O2SAT 97; BMI 34.4
[2019-12-04 14:49] VITALS: BP 188/77; PULSE 77; RESP 22; TEMP 36.4; BMI 34.4
--- NOTE | 2019-12-04 15:24 | PCM.WC.PN ---
(1) Peripheral vascular disease Status: Chronic Code(s): I73.9 - Peripheral vascular disease, unspecified (2) Chronic ulcer of left foot with fat layer exposed Status: Chronic Code(s): L97.522 - Non-pressure chronic ulcer of other part of left foot with fat layer exposed (3) Type 2 diabetes mellitus with diabetic polyneuropathy Status: Chronic Qualifiers: Code(s): E11.42 - Type 2 diabetes mellitus with diabetic polyneuropathy Type of Wound Date of Service: 12/04/19 Chief Complaint: Left foot ulcer History of Wound: This 49-year-old male with diabetes, peripheral vascular disease (calcified vessels), chronic kidney disease, sleep apnea, obesity and other comorbidities had chronic bilateral foot ulcers with prior history of osteomyelitis that was treated medically and surgically. He recently underwent left fifth ray resection was left partially open with Dr. Shipley, and he was subsequently treated with IV and oral antibiotics under the management of infectious disease and completed a course of vancomycin and cefazolin intravenously on hemodialysis days and oral Flagyl as well. The stop date of antibiotics was 10-18-2019. He denies fever, chill, nausea, vomiting. It is also noted he had prior vascular intervention with Dr. Tuttle earlier this year. He offloads with surgical shoe. He continues with the wound VAC and home health. He is with his today. He denies any new pedal complaints or injuries. He denies odor. Progress of Wound: Improving left - Physical Exam Vital Signs Temp Pulse Resp BP Pulse Ox 97.5 F L 77 22 H 188/77 H 97 12/04/19 14:49 12/04/19 14:49 12/04/19 14:49 12/04/19 14:49 12/02/19 00:22 General: Alert, Oriented x3, Cooperative, No apparent distress HEENT: Atraumatic Extremities: No cyanosis, Capillary Refill Less than 3 Seconds, No Calf Tenderness, Diminished Peripheral Pulses, Edema Skin: Ulcer/ Wound - No purulence, erythema, string, odor, infection. His adjacent skin is hairless and atrophic. Peripheral epithelialization is noted. Wound Measurements and Assessment WC - Nurse 1 - General Ulcer Measurement Start: 12/04/19 14:48 Freq: Status: Active Protocol: Activity Type Activity Date Activity User E-Sign Co-Sign Detail Recorded Client Recorded Date Recorded By Document 12/04/19 14:49 DL [id number] 12/04/19 14:51 DL 12/04/19 14:49 Wound Center Nurse 1 [Ulcer Assessment] #7 LEFT LATERAL FOOT -Current Size (cm) - Length 0.1 -Current Size (cm) - Width 0.1 -Current Size (cm) - Depth 0.1 -Total Square Cm 0.01 -Photo Taken No -Exudate Amt None Present -Wound Margin Flat & Intact -Granulation Amt Large (67-100%) -Granulation Quality [place] -Necrosis Amt Small (1-33%) -Necrotic Tissue Type Adherent Slough -Structure Exposed N/A -Texture (Amanda-wound Skin Appearance) Scarring -Moisture (Amanda-wound Skin Appearance Dry/Scaly ) -Color (Amanda-wound Skin Appearance) No Abnormality -Temperature (Amanda-wound Skin No Abnormality Appearance) (Pt Warm) -Tenderness on Palpation (Amanda-wound No Skin Appearance) -Ulcer Cleansing Wound Cleanser -Foul Odor after Cleansing No -Anesthetic Used 4% Lidocaine Solution Musculoskeletal: No Tenderness to Palpation of Joints or Extremities, Muscle Wasting, - - Amputation noted left foot Neurological: - - Lack of normal epicritic sensation light touch is consistent with neuropathy status Psych/Mental Status: Normal Affect, Appropriate Debridement Note Wound debrided: lateral forefoot Laterality: Left Wound Grade/Stage: grade 1 Type of Debridement: Excisional debridement Anesthesia Used: 5% Lidocaine Gel Depth: Down to and including healthy tissue Percentage of wound debrided: 100 Instrument Used: #15 blade Tissue Removed: fibrous, devitalized subcutaneous, biofilm, slough Severity: Fat Layer Exposed Amount of bleeding with debridement: Mild Bleeding Controlled with: Pressure Patient tolerated procedure well Assessment/Plan Assessment: Diabetes with neuropathy (hemoglobin A1c 12%). status post left fifth ray resection for treatment of osteomyelitis and now chronic ulcer, stable. Foot deformities including hammertoes, tailor bunion, and hallux limitus bilateral. Peripheral vascular disease now status post vascular surgery intervention. Other comorbidities including noncompliance, renal disease on dialysis, cardiac history. Malnutrition suspected. Gait instability Plan: I reviewed and discussed his case. Subcutaneous excisional debridement was performed to the left foot as noted in the clinical panel. He is progressing well and I recommend utilization of an advanced wound healing product, epi-fix. Prior authorization was confirmed. The indication, benefits, anticipated application course and healing management were discussed. He understands elects to proceed forward. This is medically necessary to avoid further limb loss. Verbal consent was obtained today and the epi-fix was applied according to standard protocol. This was further secured in place with a wound veil and Steri-Strips. A secondary dressing was placed. The brigid wound VAC was discontinued due to healing progression. He was advised to keep these clean, dry, and intact until follow-up. He was advised to use assistive devices to better balance himself during times of showering or ambulation. To continue with offloading surgical shoes and heel weight-bear on the left foot and to return extra-depth shoe on the right foot. To use assistive device as needed. Compliance was discussed. To note: His prior clearance fragment was sent to pathology did not demonstrate residual osteomyelitis. His pathology clearance fragment was negative from surgery that was performed on 09-09-2019 the left foot. His microbiology clearance fragment demonstrated E. coli growth in the minimal amount. It is noted that he completed IV vancomycin and ceftezole and with dialysis and also oral Flagyl as prescribed by infectious disease specialist. The end date was 10-18-2019. Vascular surgery intervention is noted in greatly appreciated. He had an abdominal pelvic right lower extremity arteriogram with angioplasty of the right proximal anterior tibial artery and right tibial peroneal trunk that was successful. To follow-up with Dr. Tuttle as scheduled. To continue with nutritional supplementation proper glycemic control to optimize healing. Compliance was discussed. It is noted that he is at risk for limb loss due to his condition including his multiple comorbidities. His lab trends will be followed. I answered all his questions. The patient was advised to return to the wound healing center in 1 week or call sooner if he is any questions or concerns.
[2019-12-11 14:39] VITALS: BP 165/75; PULSE 72; RESP 22; TEMP 36.1; BMI 34.4
--- NOTE | 2019-12-11 21:12 | PCM.WC.PN ---
(1) Peripheral vascular disease Status: Chronic Current Visit: Yes Code(s): I73.9 - Peripheral vascular disease, unspecified (2) Chronic ulcer of left foot with fat layer exposed Status: Chronic Current Visit: Yes Code(s): L97.522 - Non-pressure chronic ulcer of other part of left foot with fat layer exposed (3) Type 2 diabetes mellitus with diabetic polyneuropathy Status: Chronic Current Visit: Yes Qualifiers: Code(s): E11.42 - Type 2 diabetes mellitus with diabetic polyneuropathy Type of Wound Date of Service: 12/11/19 Chief Complaint: Left foot ulcer History of Wound: This 49-year-old male with diabetes, peripheral vascular disease (calcified vessels), chronic kidney disease, sleep apnea, obesity and other comorbidities had chronic bilateral foot ulcers with prior history of osteomyelitis that was treated medically and surgically. He recently underwent left fifth ray resection was left partially open with Dr. Shipley, and he was subsequently treated with IV and oral antibiotics under the management of infectious disease and completed a course of vancomycin and cefazolin intravenously on hemodialysis days and oral Flagyl as well. The stop date of antibiotics was 10-18-2019. He denies fever, chill, nausea, vomiting. It is also noted he had prior vascular intervention with Dr. Tuttle earlier this year. He offloads with surgical shoe. He is with his today. He denies any new pedal complaints or injuries. He denies odor. He went swimming in a pool this past weekend and reports he thought it was okay because he has dressing on. Progress of Wound: Improving left - Physical Exam Vital Signs Temp Pulse Resp BP Pulse Ox 97 F L 72 22 H 165/75 H 97 12/11/19 14:39 12/11/19 14:39 12/11/19 14:39 12/11/19 14:39 12/02/19 00:22 General: Alert, Oriented x3, Cooperative, No apparent distress Extremities: No cyanosis, Capillary Refill Less than 3 Seconds, No Calf Tenderness, Diminished Peripheral Pulses Skin: Ulcer/ Wound - No purulence, erythema, streaking, odor, infection. Peripheral epithelialization is noted. The adjacent skin is hairless and atrophic. Wound Measurements and Assessment WC - Nurse 1 - General Ulcer Measurement Start: 12/04/19 14:48 Freq: Status: Active Protocol: Activity Type Activity Date Activity User E-Sign Co-Sign Detail Recorded Client Recorded Date Recorded By Document 12/11/19 14:39 DL [id number] 12/11/19 14:45 DL 12/11/19 14:39 Wound Center Nurse 1 [Ulcer Assessment] #7 LEFT LATERAL FOOT -Current Size (cm) - Length 0.7 -Current Size (cm) - Width 0.7 -Current Size (cm) - Depth 0.1 -Total Square Cm 0.49 -Photo Taken No -Exudate Amt None Present -Wound Margin Distinct, Outline Attached -Granulation Amt Large (67-100%) -Granulation Quality [place] -Necrosis Amt Small (1-33%) -Necrotic Tissue Type Adherent Slough -Structure Exposed N/A -Texture (Amanda-wound Skin Appearance) Scarring -Moisture (Amanda-wound Skin Appearance Dry/Scaly ) -Color (Amanda-wound Skin Appearance) No Abnormality -Temperature (Amanda-wound Skin No Abnormality Appearance) (Pt Warm) -Tenderness on Palpation (Amanda-wound No Skin Appearance) -Ulcer Cleansing Wound Cleanser -Foul Odor after Cleansing No -Anesthetic Used 4% Lidocaine Solution WC - Nurse 2 - General Ulcer CM Notes Start: 12/04/19 14:48 Freq: Status: Active Protocol: Activity Type Activity Date Activity User E-Sign Co-Sign Detail Recorded Client Recorded Date Recorded By Document 12/11/19 16:52 MICHAEL [id number] 12/11/19 16:53 JF 12/11/19 16:52 Wound Center Nurse 2 [Procedure/Treatment] -Time 16:52 -Correct Patient Yes -Correct Side, Site, Position Yes -Correct Procedure Yes -Procedure Performed Yes -Type of Procedure Debridement -Clinical Debridement Subcutaneous -Post Debridement Size (cm) - Length 0.8 -Post Debridement Size (cm) - Width 0.8 -Post Debridement Size (cm) - Depth 0.2 -Total Square Cm 0.64 -Wound/Ulcer Outcome Not Healed -Ulcer Cleansing Rinsed/ Irrigated with Saline -Foul Odor after Cleansing No -Bioengineered Tissue Yes -Type of bioengineered Tissue EPIFIX -Expiration Date 08/31/24 -Product Lot Number [id number] -Percent Used 100 -Saline Lot Number [id number] -Bleeding Controlled with Pressure -Offloading Yes -Type of Offloading Knee Walker -Treatment Response Procedure Tolerated Well [See Physician Procedure note for Specifics] Pain Scale: 0-10 Numeric [Pain] -Is Patient Pain Free? Yes Musculoskeletal: No Tenderness to Palpation of Joints or Extremities, Muscle Wasting, - - Bilateral fifth ray resection Neurological: - - Lack of epicritic sensation light touch is consistent with neuropathy status Psych/Mental Status: Normal Affect, Appropriate Debridement Note Post-Debridement Measurements/Treatment WC - Nurse 2 - General Ulcer CM Notes Start: 12/04/19 14:48 Freq: Status: Active Protocol: Activity Type Activity Date Activity User E-Sign Co-Sign Detail Recorded Client Recorded Date Recorded By Document 12/04/19 18:13 PL [id number] 12/04/19 18:15 PL Document 12/11/19 16:52 JF [id number] 12/11/19 16:53 12/04/19 12/11/19 18:13 16:52 Wound Center Nurse 2 #7 LEFT LATERAL FOOT -Time 15:00 16:52 -Correct Patient Yes Yes -Correct Side, Site, Position Yes Yes -Correct Procedure Yes Yes -Procedure Performed Yes Yes -Type of Procedure Debridement Debridement -Clinical Debridement Subcutaneous Subcutaneous -Post Debridement Size (cm) - Length 0.2 0.8 -Post Debridement Size (cm) - Width 0.2 0.8 -Post Debridement Size (cm) - Depth 0.2 0.2 -Total Square Cm 0.04 0.64 -Wound/Ulcer Outcome Not Healed Not Healed -Ulcer Cleansing Rinsed/ Rinsed/ Irrigated with Irrigated with Saline Saline -Foul Odor after Cleansing No No -Bioengineered Tissue Yes -Type of bioengineered Tissue EPIFIX EPIFIX -Expiration Date 07/03/24 08/31/24 -Product Lot Number [id number] -Percent Used 100 100 -Saline Lot Number [id number] -Bleeding Controlled with Pressure Pressure -Offloading Yes -Type of Offloading Knee Walker -Treatment Response Procedure Procedure Tolerated Well Tolerated Well Pain Scale: 0-10 Numeric Is Patient Pain Free? Yes Yes Wound debrided: lateral forefoot Laterality: Left Wound Grade/Stage: grade 1 Type of Debridement: Excisional debridement Anesthesia Used: 5% Lidocaine Gel Depth: in the subcutaneous layer Percentage of wound debrided: 100 Instrument Used: #15 blade Tissue Removed: fibrous, devitalized subcutaneous, biofilm, slough Severity: Fat Layer Exposed Amount of bleeding with debridement: Mild Bleeding Controlled with: Pressure Patient tolerated procedure well Assessment/Plan Active Problems (Last Reviewed 10/07/19 @ 13:16 by LATASHA Osullivan) Peripheral vascular disease (Chronic) Chronic ulcer of left foot with fat layer exposed (Chronic) Type 2 diabetes mellitus with diabetic polyneuropathy (Chronic) Assessment: Diabetes with neuropathy (hemoglobin A1c 12%). status post left fifth ray resection for treatment of osteomyelitis and now chronic ulcer, stable. Foot deformities including hammertoes, tailor bunion, and hallux limitus bilateral. Peripheral vascular disease now status post vascular surgery intervention. Other comorbidities including noncompliance, renal disease on dialysis, cardiac history. Malnutrition suspected. Gait instability Plan: I reviewed and discussed his case. Subcutaneous excisional debridement was performed to the left foot as noted in the clinical panel. He is progressing well and I recommend utilization of an advanced wound healing product, epi-fix. Prior authorization was confirmed. The indication, benefits, anticipated application course and healing management were discussed. He understands elects to proceed forward. This is medically necessary to avoid further limb loss. Verbal consent was obtained today and the epi-fix was applied according to standard protocol. This was further secured in place with a wound veil and Steri-Strips. A secondary dressing was placed. He was advised to keep these clean, dry, and intact until follow-up. He was advised not to go swimming until his ulcer site has healed. He was advised to use assistive devices to better balance himself during times of showering or ambulation. To continue with offloading surgical shoes and heel weight-bear on the left foot and to return extra-depth shoe on the right foot. To use assistive device as needed. Compliance was discussed. To note: His prior clearance fragment was sent to pathology did not demonstrate residual osteomyelitis. His pathology clearance fragment was negative from surgery that was performed on 09-09-2019 the left foot. His microbiology clearance fragment demonstrated E. coli growth in the minimal amount. It is noted that he completed IV vancomycin and ceftezole and with dialysis and also oral Flagyl as prescribed by infectious disease specialist. The end date was 10-18-2019. Vascular surgery intervention is noted in greatly appreciated. He had an abdominal pelvic right lower extremity arteriogram with angioplasty of the right proximal anterior tibial artery and right tibial peroneal trunk that was successful. To follow-up with Dr. Tuttle as scheduled. To continue with nutritional supplementation proper glycemic control to optimize healing. Compliance was discussed. It is noted that he is at risk for limb loss due to his condition including his multiple comorbidities. His lab trends will be followed. I answered all his questions. The patient was advised to return to the wound healing center in 1 week or call sooner if he is any questions or concerns.
[2019-12-18 14:50] VITALS: BP 147/72; PULSE 71; RESP 16; TEMP 35.8; BMI 34.4
--- NOTE | 2019-12-18 17:21 | PCM.WC.PN ---
(1) Peripheral vascular disease Status: Chronic Current Visit: Yes Code(s): I73.9 - Peripheral vascular disease, unspecified (2) Chronic ulcer of left foot with fat layer exposed Status: Chronic Current Visit: Yes Code(s): L97.522 - Non-pressure chronic ulcer of other part of left foot with fat layer exposed (3) Type 2 diabetes mellitus with diabetic polyneuropathy Status: Chronic Current Visit: Yes Qualifiers: Code(s): E11.42 - Type 2 diabetes mellitus with diabetic polyneuropathy Type of Wound Date of Service: 12/18/19 Chief Complaint: Left foot ulcer History of Wound: This 49-year-old male with diabetes, peripheral vascular disease (calcified vessels), chronic kidney disease, sleep apnea, obesity and other comorbidities had chronic bilateral foot ulcers with prior history of osteomyelitis that was treated medically and surgically. He recently underwent left fifth ray resection was left partially open with Dr. Shipley, and he was subsequently treated with IV and oral antibiotics under the management of infectious disease and completed a course of vancomycin and cefazolin intravenously on hemodialysis days and oral Flagyl as well. The stop date of antibiotics was 10-18-2019. He denies fever, chill, nausea, vomiting. It is also noted he had prior vascular intervention with Dr. Tuttle earlier this year. He offloads with surgical shoe. He is with his today. He denies any new pedal complaints or injuries. He denies odor. Progress of Wound: Improving left - Physical Exam Vital Signs Temp Pulse Resp BP Pulse Ox 96.4 F L 71 16 147/72 H 97 12/18/19 14:50 12/18/19 14:50 12/18/19 14:50 12/18/19 14:50 12/02/19 00:22 General: Alert, Oriented x3, Cooperative, No apparent distress HEENT: Atraumatic Extremities: No cyanosis, No edema, Capillary Refill Less than 3 Seconds, No Calf Tenderness, Diminished Peripheral Pulses Skin: Ulcer/ Wound - no purulence, no erythema, no streaking, no odor, no infection. peripheral epithelialization is noted Wound Measurements and Assessment WC - Nurse 1 - General Ulcer Measurement Start: 12/04/19 14:48 Freq: Status: Active Protocol: Activity Type Activity Date Activity User E-Sign Co-Sign Detail Recorded Client Recorded Date Recorded By Document 12/18/19 14:50 [id number] 12/18/19 14:55 BS 12/18/19 14:50 Wound Center Nurse 1 [Ulcer Assessment] #7 LEFT LATERAL FOOT -Combined with other wound No -Current Size (cm) - Length 1.0 -Current Size (cm) - Width 0.5 -Current Size (cm) - Depth 0.1 -Total Square Cm 0.50 -Photo Taken No -Texture (Amanda-wound Skin Appearance) Assessed,Callus -Moisture (Amanda-wound Skin Appearance Assessed,Dry/ ) Scaly -Color (Amanda-wound Skin Appearance) Assessed -Temperature (Amanda-wound Skin No Abnormality Appearance) (Pt Warm) -Tenderness on Palpation (Amanda-wound No Skin Appearance) -Ulcer Cleansing Soap and water -Foul Odor after Cleansing No -Anesthetic Used 4% Lidocaine Solution WC - Nurse 2 - General Ulcer CM Notes Start: 12/04/19 14:48 Freq: Status: Active Protocol: Activity Type Activity Date Activity User E-Sign Co-Sign Detail Recorded Client Recorded Date Recorded By Document 12/18/19 15:22 [id number] 12/18/19 15:23 12/18/19 15:22 Wound Center Nurse 2 [Procedure/Treatment] -Time 15:22 -Correct Patient Yes -Correct Side, Site, Position Yes -Correct Procedure Yes -Procedure Performed Yes -Type of Procedure Debridement -Clinical Debridement Subcutaneous -Post Debridement Size (cm) - Length 0.2 -Post Debridement Size (cm) - Width 0.2 -Post Debridement Size (cm) - Depth 0.1 -Total Square Cm 0.04 -Wound/Ulcer Outcome Not Healed -Ulcer Cleansing Rinsed/ Irrigated with Saline -Foul Odor after Cleansing No -Bioengineered Tissue No -Bleeding Controlled with Pressure -Offloading Yes -Type of Offloading Surgical Shoe -Treatment Response Procedure Tolerated Well [See Physician Procedure note for Specifics] Pain Scale: 0-10 Numeric [Pain] -Is Patient Pain Free? Yes Musculoskeletal: Muscle Wasting, - - fifth ray resection. compartments soft Neurological: - - lack of normal epicritic sensation noted Psych/Mental Status: Normal Affect, Appropriate Debridement Note Post-Debridement Measurements/Treatment WC - Nurse 2 - General Ulcer CM Notes Start: 12/04/19 14:48 Freq: Status: Active Protocol: Activity Type Activity Date Activity User E-Sign Co-Sign Detail Recorded Client Recorded Date Recorded By Document 12/04/19 18:13 PL [id number] 12/04/19 18:15 PL Document 12/11/19 16:52 [id number] 12/11/19 16:53 Document 12/18/19 15:22 [id number] 12/18/19 15:23 12/04/19 12/11/19 12/18/19 18:13 16:52 15:22 Wound Center Nurse 2 #7 LEFT LATERAL FOOT -Time 15:00 16:52 15:22 -Correct Patient Yes Yes Yes -Correct Side, Site, Position Yes Yes Yes -Correct Procedure Yes Yes Yes -Procedure Performed Yes Yes Yes -Type of Procedure Debridement Debridement Debridement -Clinical Debridement Subcutaneous Subcutaneous Subcutaneous -Post Debridement Size (cm) - Length 0.2 0.8 0.2 -Post Debridement Size (cm) - Width 0.2 0.8 0.2 -Post Debridement Size (cm) - Depth 0.2 0.2 0.1 -Total Square Cm 0.04 0.64 0.04 -Wound/Ulcer Outcome Not Healed Not Healed Not Healed -Ulcer Cleansing Rinsed/ Rinsed/ Rinsed/ Irrigated with Irrigated with Irrigated with Saline Saline Saline -Foul Odor after Cleansing No No No -Bioengineered Tissue Yes No -Type of bioengineered Tissue EPIFIX EPIFIX -Expiration Date 07/03/24 08/31/24 -Product Lot Number [id number] -Percent Used 100 100 -Saline Lot Number [id number] -Bleeding Controlled with Pressure Pressure Pressure -Offloading Yes Yes -Type of Offloading Knee Walker Surgical Shoe -Treatment Response Procedure Procedure Procedure Tolerated Well Tolerated Well Tolerated Well Pain Scale: 0-10 Numeric Is Patient Pain Free? Yes Yes Yes Wound debrided: lateral forefoot Laterality: Left Wound Grade/Stage: grade 1 Type of Debridement: Excisional debridement Anesthesia Used: 5% Lidocaine Gel Depth: in the subcutaneous layer Percentage of wound debrided: 100 Instrument Used: #15 blade Tissue Removed: fibrous, devitalized subcutaneous biofilm, slough Severity: Fat Layer Exposed Amount of bleeding with debridement: Mild Bleeding Controlled with: Pressure Patient tolerated procedure well Assessment/Plan Active Problems (Last Reviewed 10/07/19 @ 13:16 by GAVIN OsullivanC) Peripheral vascular disease (Chronic) Chronic ulcer of left foot with fat layer exposed (Chronic) Type 2 diabetes mellitus with diabetic polyneuropathy (Chronic) Assessment: Diabetes with neuropathy (hemoglobin A1c 12%). status post left fifth ray resection for treatment of osteomyelitis and now chronic ulcer, stable. Foot deformities including hammertoes, tailor bunion, and hallux limitus bilateral. Peripheral vascular disease now status post vascular surgery intervention. Other comorbidities including noncompliance, renal disease on dialysis, cardiac history. Malnutrition suspected. Gait instability Plan: I reviewed and discussed his case. Subcutaneous excisional debridement was performed to the left foot as noted in the clinical panel. He is progressing well. Adaptic and hydrogel was applied; to change daily. A secondary dressing was placed. He was advised to use assistive devices to better balance himself during times of showering or ambulation. To continue with offloading surgical shoes and heel weight-bear on the left foot and to return extra-depth shoe on the right foot. To use assistive device as needed. Compliance was discussed. To note: His prior clearance fragment was sent to pathology did not demonstrate residual osteomyelitis. His pathology clearance fragment was negative from surgery that was performed on 09-09-2019 the left foot. His microbiology clearance fragment demonstrated E. coli growth in the minimal amount. It is noted that he completed IV vancomycin and ceftezole and with dialysis and also oral Flagyl as prescribed by infectious disease specialist. The end date was 10-18-2019. Vascular surgery intervention is noted in greatly appreciated. He had an abdominal pelvic right lower extremity arteriogram with angioplasty of the right proximal anterior tibial artery and right tibial peroneal trunk that was successful. To follow-up with Dr. Tuttle as scheduled. To continue with nutritional supplementation proper glycemic control to optimize healing. Compliance was discussed. It is noted that he is at risk for limb loss due to his condition including his multiple comorbidities. His lab trends will be followed. I answered all his questions. The patient was advised to return to the wound healing center in 1 - 2 weeks or call sooner if he is any questions or concerns.
== END 2019-12-31 23:59 ==
LOC: WC 14:30
PROVIDERS: Family Provider Internal Medicine; PCP Internal Medicine; Visit Provider Podiatrist
DX: E11.621 Type 2 diabetes mellitus with foot ulcer (principal); E11.42 Type 2 diabetes mellitus with diabetic polyneuropathy; L97.522 Non-pressure chronic ulcer of other part of left foot with fat layer exposed; E11.51 Type 2 diabetes mellitus with diabetic peripheral angiopathy without gangrene; E11.22 Type 2 diabetes mellitus with diabetic chronic kidney disease; N18.9 Chronic kidney disease, unspecified; G47.30 Sleep apnea, unspecified; E66.9 Obesity, unspecified; Z68.41 Body mass index [BMI] 40.0-44.9, adult; Z99.2 Dependence on renal dialysis; M20.5X2 Other deformities of toe(s) (acquired), left foot; M20.5X1 Other deformities of toe(s) (acquired), right foot; M20.40 Other hammer toe(s) (acquired), unspecified foot; Z91.19 Patient's noncompliance with other medical treatment and regimen
CPT/HCPCS: 11042; 15275; Q4186

== ENCOUNTER 2020-01-01 09:40 | Outpatient (RCR) | payer MEDICARE, MEDICAID, SELFPAY ==
[2020-01-01 00:23] VITALS: BP 147/72; PULSE 71; RESP 16; TEMP 35.8; O2SAT 97
[2020-01-01 15:10] VITALS: BP 213/64; PULSE 72; RESP 18; TEMP 36.2; BMI 34.4
--- NOTE | 2020-01-01 16:46 | PN.PCM_ITS ---
(1) Chronic ulcer of left foot with fat layer exposed Status: Resolved Current Visit: Yes Code(s): L97.522 - Non-pressure chronic ulcer of other part of left foot with fat layer exposed (2) Type 2 diabetes mellitus with diabetic polyneuropathy Status: Chronic Current Visit: Yes Qualifiers: Code(s): E11.42 - Type 2 diabetes mellitus with diabetic polyneuropathy (3) Peripheral vascular disease Status: Chronic Current Visit: Yes Code(s): I73.9 - Peripheral vascular disease, unspecified Type of Wound Date of Service: 01/01/20 Chief Complaint: Left foot ulcer History of Wound: This 49-year-old male with diabetes, peripheral vascular disease (calcified vessels), chronic kidney disease, sleep apnea, obesity and other comorbidities had chronic bilateral foot ulcers with prior history of osteomyelitis that was treated medically and surgically. He recently underwent left fifth ray resection was left partially open with Dr. Shipley, and he was subsequently treated with IV and oral antibiotics under the management of infectious disease and completed a course of vancomycin and cefazolin intravenously on hemodialysis days and oral Flagyl as well. The stop date of antibiotics was 10-18-2019. He denies fever, chill, nausea, vomiting. It is also noted he had prior vascular intervention with Dr. Tuttle earlier this year. He offloads with surgical shoe. He is with his today. He denies any new pedal complaints or injuries. He denies odor or recent drainage. Progress of Wound: Healed - Physical Exam Vital Signs Temp Pulse Resp BP Pulse Ox 97.1 F L 72 18 213/64 H 97 01/01/20 15:10 01/01/20 15:10 01/01/20 15:10 01/01/20 15:10 01/01/20 00:23 General: Alert, Oriented x3, Cooperative, No apparent distress HEENT: Atraumatic Extremities: No cyanosis, Capillary Refill Less than 3 Seconds, No Calf Tenderness, Diminished Peripheral Pulses, Edema Skin: Ulcer/ Wound - Full epithelialization is noted and the site has healed. His skin is atrophic and hairless Wound Measurements and Assessment WC - Nurse 1 - General Ulcer Measurement Start: 01/01/20 15:10 Freq: Status: Active Protocol: Activity Type Activity Date Activity User E-Sign Co-Sign Detail Recorded Client Recorded Date Recorded By Document 01/01/20 15:10 RB [id number] 01/01/20 15:13 01/01/20 15:10 Wound Center Nurse 1 [Ulcer Assessment] #7 LEFT LATERAL FOOT -Combined with other wound No -Current Size (cm) - Length 0.1 -Current Size (cm) - Width 0.1 -Current Size (cm) - Depth 0.1 -Total Square Cm 0.01 -Tunneling No -Undermining/Tunneling No -Circular Undermining No -Exudate Amt Small -Exudate Type Serosanguineous -Wound Margin Flat & Intact -Granulation Amt Large (67-100%) -Granulation Quality [place] -Slough/Fibrin Yes -Necrosis Amt Small (1-33%) -Necrotic Tissue Type Adherent Slough -Structure Exposed N/A -Texture (Amanda-wound Skin Appearance) Assessed,Callus -Moisture (Amanda-wound Skin Appearance Assessed ) -Color (Amanda-wound Skin Appearance) Assessed -Temperature (Amanda-wound Skin No Abnormality Appearance) (Pt Warm) -Tenderness on Palpation (Amanda-wound No Skin Appearance) -Ulcer Cleansing Wound Cleanser -Foul Odor after Cleansing No -Anesthetic Used 4% Lidocaine Solution WC - Nurse 2 - General Ulcer CM Notes Start: 01/01/20 15:10 Freq: Status: Active Protocol: Activity Type Activity Date Activity User E-Sign Co-Sign Detail Recorded Client Recorded Date Recorded By Document 01/01/20 15:29 [id number] 01/01/20 15:32 01/01/20 15:29 Wound Center Nurse 2 [Procedure/Treatment] -Correct Patient No -Correct Side, Site, Position No -Correct Procedure No -Procedure Performed No -Post Debridement Size (cm) - Length 0 -Post Debridement Size (cm) - Width 0 -Post Debridement Size (cm) - Depth 0 -Total Square Cm 0 -Wound/Ulcer Outcome Healed- Epithelialized [See Physician Procedure note for Specifics] Pain Scale: 0-10 Numeric [Pain] -Is Patient Pain Free? Yes Musculoskeletal: Muscle Wasting, - - Fifth ray resection left healed Neurological: - - Lack of epicritic sensation light touch is consistent with neuropathy status Psych/Mental Status: Normal Affect, Appropriate Debridement Note Post-Debridement Measurements/Treatment WC - Nurse 2 - General Ulcer CM Notes Start: 01/01/20 15:10 Freq: Status: Active Protocol: Activity Type Activity Date Activity User E-Sign Co-Sign Detail Recorded Client Recorded Date Recorded By Document 01/01/20 15:29 MICHAEL [id number] 01/01/20 15:32 MICHAEL 01/01/20 15:29 Wound Center Nurse 2 #7 LEFT LATERAL FOOT -Correct Patient No -Correct Side, Site, Position No -Correct Procedure No -Procedure Performed No -Post Debridement Size (cm) - Length 0 -Post Debridement Size (cm) - Width 0 -Post Debridement Size (cm) - Depth 0 -Total Square Cm 0 -Wound/Ulcer Outcome Healed- Epithelialized Pain Scale: 0-10 Numeric Is Patient Pain Free? Yes No debridement was completed today - Healed today Assessment/Plan Active Problems (Last Reviewed 10/07/19 @ 13:16 by Miriam Mix NP-C) Peripheral vascular disease (Chronic) Type 2 diabetes mellitus with diabetic polyneuropathy (Chronic) Assessment: Diabetes with neuropathy (hemoglobin A1c 12%). status post left fi fth ray resection for treatment of osteomyelitis and now chronic ulcer - healed today. Foot deformities including hammertoes, tailor bunion, and hallux limitus bilateral. Peripheral vascular disease now status post vascular surgery intervention. Other comorbidities including noncompliance, renal disease on dialysis, cardiac history. Malnutrition suspected. Gait instability Plan: I reviewed and discussed his case. The ulcer site is healed today and therefore no debridement was performed. He was advised to discontinue the dressings and to monitor close for reopening or development of infection. He is reassured no local signs of infection are noted today. He understands his foot skin is very fragile and he is at risk for reopening this. Therefore, I recommend that he continues to offload with a surgical shoes and heel weight- bear on the left foot and to return extra-depth shoe on the right foot. To use assistive device as needed. I recommend progressing into an extra-depth shoe in approximately 2 weeks if this goes well. I advised him to follow-up at the foot and ankle center for healed ulcer check, palliative nail care, and to order updated extra-depth shoes with dual density Plastizote offloading inserts to help him prevent future callus or ulcer formation. He is discharged from the wound healing center at this time. Answered his questions.
== END 2020-01-31 23:59 ==
LOC: WC 09:40
PROVIDERS: Family Provider Internal Medicine; PCP Internal Medicine; Visit Provider Podiatrist
DX: Z09 Encounter for follow-up examination after completed treatment for conditions other than malignant neoplasm (principal); E11.42 Type 2 diabetes mellitus with diabetic polyneuropathy; E11.51 Type 2 diabetes mellitus with diabetic peripheral angiopathy without gangrene; E11.22 Type 2 diabetes mellitus with diabetic chronic kidney disease; N18.9 Chronic kidney disease, unspecified; G47.30 Sleep apnea, unspecified; Z91.19 Patient's noncompliance with other medical treatment and regimen; M20.40 Other hammer toe(s) (acquired), unspecified foot; M21.629 Bunionette of unspecified foot; M20.5X2 Other deformities of toe(s) (acquired), left foot; M20.5X1 Other deformities of toe(s) (acquired), right foot
CPT/HCPCS: 99213; G0463

== ENCOUNTER → 2020-01-20 12:28 | Outpatient (CLI) | payer MEDICARE, MEDICAID, SELFPAY ==
[2020-01-01 15:10] VITALS: BMI 34.4
--- NOTE | 2020-01-20 14:39 | PFTCOMP ---
COMPLETE PULMONARY FUNCTION TEST INTERPRETATION Brief HPI: Patient is a 49 year old male, currently under the care of Miriam Mix, who presents to [facility] for complete pulmonary function tests secondary to diagnosis of dyspnea. Respiratory therapist reports poor effort and non-reproducible results. Patient reportedly had significant nausea limiting test compliance Interpretation: Forced expiration spirometry shows a moderate large airways obstructive ventilatory defect with an FEV1 of 61 % predicted. There is a significant bronchodilator response in FEV1 by strict ATS criteria. Spirograms are of poor quality and unable to be interpreted. The respiratory flow volume loop shows a normal pattern. Lung volumes by body plethysmography show an elevated total lung capacity at 8.09 L, 133% predicted. FRC and RV are elevated out of proportion. Lung volume measurements are consistent with hyperinflation and air-trapping. Diffusion capacity by carbon monoxide is decreased at 32% predicted. The airway resistance is normal. Compared to previous pulmonary function tests from 10/04/2012, there was significant worsening in FVC, FEV1, TLC and DLCO. Impression: Poor quality results. Current findings are suggestive of a partially reversible moderate large airways obstructive ventilatory defect with reduction in DLCO and significant worsening compared to previous, but caution should be used given poor reliability with current testing
== END ==
PROVIDERS: PCP Internal Medicine; Referring Provider Nurse Practitioner Acute Care; Visit Provider Nurse Practitioner Acute Care
DX: R06.02 Shortness of breath (principal)
CPT/HCPCS: 94060; 94726; 94729

== ENCOUNTER → 2020-02-17 10:16 | Outpatient (CLI) | payer MEDICARE, MEDICAID, SELFPAY ==
[2020-02-17 10:52] VITALS: PULSE 72; PULSE 73; PULSE 76; PULSE 77; PULSE 79; PULSE 80; PULSE 82; PULSE 85; O2SAT 87; O2SAT 88; O2SAT 89; O2SAT 90; O2SAT 93; O2SAT 94
--- NOTE | 2020-02-17 10:54 | CPS ---
Patient came in on their own home O2 tank at 3 lpm pulse dose. Patient took off oxygen for less than 10 minutes, SpO2 78%. Recovered on 3 lpm O2 before testing. Increased O2 to 4 lpm pulse dose at the 3rd minute.
--- NOTE | 2020-02-17 15:09 | PCM.PSN.6M ---
PSN 6 Minute Walk Test - 6 Minute Walk Test 6 Minute Walk Test: 6 Minute Walk Test PSN:6-Minute Walk Test Start: 02/17/20 10:51 Freq: Status: Active Protocol: RESP.6MINW Document 02/17/20 10:52 PETR (Rec: 02/17/20 10:58 PETR [id number]) 6 Minute Walk Test Date Performed 02/17/20 Time Performed 10:30 Height 5 ft 7 in Weight: 113.398 kg Weight in Pounds 250.[address]: Gavino Bowen Assistive device used: Walker Pre-test Oxygen Flow Rate (L/min) (L/min) 3 Oxygen Delivery Method Nasal Cannula Pulse Ox (%) 93 Pulse Rate (60-100 beats/min) 73 Dyspnea Zee Scale (0-10) 0 Exertion Zee Scale (6-20) 6 1st minute Oxygen Flow Rate (L/min) (L/min) 3 Oxygen Delivery Method Nasal Cannula Pulse Ox (%) 90 Pulse Rate (60-100 beats/min) 76 2nd minute Oxygen Flow Rate (L/min) (L/min) 3 Oxygen Delivery Method Nasal Cannula Pulse Ox (%) 89 Pulse Rate (60-100 beats/min) 80 3rd minute Oxygen Flow Rate (L/min) (L/min) 3 Oxygen Delivery Method Nasal Cannula Pulse Ox (%) 87 Pulse Rate (60-100 beats/min) 85 4th minute Oxygen Flow Rate (L/min) (L/min) 4 Oxygen Delivery Method Nasal Cannula Pulse Ox (%) 93 Pulse Rate (60-100 beats/min) 77 5th minute Oxygen Flow Rate (L/min) (L/min) 4 Oxygen Delivery Method Nasal Cannula Pulse Ox (%) 89 Pulse Rate (60-100 beats/min) 79 6th minute Oxygen Flow Rate (L/min) (L/min) 4 Oxygen Delivery Method Nasal Cannula Pulse Ox (%) 88 Pulse Rate (60-100 beats/min) 82 Dyspnea Zee Scale (0-10) 4 Exertion Zee Scale (6-20) 14 Post-test Oxygen Flow Rate (L/min) (L/min) 4 Oxygen Delivery Method Nasal Cannula Pulse Ox (%) 94 Pulse Rate (60-100 beats/min) 72 Full Laps Walked 11 Partial Lap, Number of Tiles Walked 35 Total Distance Walked (ft) 684 02/17/20 10:54 Cardiopulmonary Services by Shahla Richard Patient came in on their own home O2 tank at 3 lpm pulse dose. Patient took off oxygen for less than 10 minutes, SpO2 78%. Recovered on 3 lpm O2 before testing. Increased O2 to 4 lpm pulse dose at the 3rd minute. Initialized on 02/17/20 10:54 - END OF NOTE - Interpretation Interpretation: The patient was noted to be 78% on room air. The patient was then placed on 3 L pulse dose with improvement to 93%. The patient was able to ambulate 684 feet over the course of 6 minutes with the assistance of a walker and one break. No significant tachycardia was noted during testing. The patient did require 4 L pulse dose to maintain appropriate saturations throughout testing. These findings are consistent with a respiratory limitation exercise tolerance. - Recommendations Recommendations: The patient requires 3 L pulse dose at rest, but should be using 4 L pulse dose with any ambulation.
== END ==
PROVIDERS: PCP Internal Medicine; Referring Provider Nurse Practitioner Acute Care; Visit Provider Nurse Practitioner Acute Care
DX: R06.02 Shortness of breath (principal)
CPT/HCPCS: 94618